=== PATIENT | male | born 1965 | race Caucasian/White ===

== ENCOUNTER 2016-10-22 16:28 | Observation (INO) | payer OTHER ==
[~2016-10-22] VITALS: Ht 182.9 cm; Wt 85.6 kg
[~2016-10-22 16:28] MED LIST: ALBU1AER9 INH; AMIT50TA3 PO; ASPI81TA28 PO; ATOR-22 PO; CLOP1TAB15 PO; HYG/25 PO; LOSA1TAB38 PO; LPR100 PO; MORP30TA23 PO; MORP60TA6 PO; ONDA4TAB46 PO; OXY/15 PO
[2016-10-22] MEDS ORDERED: SODIUM CHLORIDE 0.9% 500ML 500 ML IV STA (17:11)
[2016-10-22] MEDS ORDERED: NITROGLYCERIN 0.4 MG SL PER TAB CHARGE SL PRN ×2 (17:15→18:30)
[2016-10-22 17:17] LABS: BASO % 0.9 %; COMPLETE YES; HEMATOCRIT 46.7 % (42-52); IG% 0.3 %; LYMPH % 41.9 %; LYMPH ABS # 4.91 K/uL (1.2-3.4); MEAN CORPUSCULAR HEMOGLOBIN 29.1 pg (25-34); MEAN CORPUSCULAR HGB CONC 33.8 g/dl (32-36); MEAN PLATELET VOLUME 9.1 fL (7.4-10.4); MONO % 4.6 %; NEUT % 49.3 %; PLATELET COUNT 256 K/uL (130-400); RED BLOOD COUNT 5.43 M/uL (4.7-6.1); WHITE BLOOD COUNT 11.72 K/uL (4.8-10.8)
--- NOTE | 2016-10-22 17:27 | EMERGENCY ROOM VISIT NOTE ---
History Report prepared by Brittni: Chelsea Terry Under the Supervision of: Dr. Jac Dukes D.O. First contact with patient: 17:00 Chief Complaint: CHEST PAIN Stated Complaint: CHEST PAIN Nursing Triage Summary: patient brought in by ems patient reports chest pain for 1.5 hours,chest tightness patient reports hx of stroke 4 months ago,SC,HIV positive patient reports dizziness episodes 4 times a week with facial numbness and tremors patient wears 25mcg fentanyl patch on left arm History of Present Illness The patient is a 51 year old male who presents to the Emergency Room with complaints of chest pain starting 2 hours [employer]. The patient states that it felt like a tightness in his chest. He states that he currently rates the pain as minimal and states its feels like more "of a ball" in his chest. The patient states that he does have chest pain with exertion. He states that this pain does not feel similar to his heart attack in the past, he states that with his previous heart attack he had right arm pain and a headache and his chest pain felt like a knife in his chest. The patient states that he also had shortness of breath with his chest pain today. The patient states that he has also been getting tremors more frequently over the last few weeks. He states that they are only on the left side of his body and he gets a numb feeling in his head. The patient states that he can get them up to 4-5 times a day and they last 2-3 minutes at a time. He states if he stands still long enough that the tremors seem to go away. The patient states that he does have a history of a stroke as well as his heart attack. The patient states that he also had a headache today after receiving nitroglycerin in the ambulance on the way to the ED. The patient states that he has HIV and has never had a bad CD4 count, but states that he is unsure of what his last count was 2 months ago. He states that he does regularly get his CD4 counts checked. The patient states that he did recently start having a cough and feels like he has mucus in his lungs. He also states that the last 4 days he has had diarrhea and has felt dehydrated but denies any recent antibiotics. The patient denies any recent fevers, new numbness or weakness, abdominal pain, nausea or vomiting with his symptoms. The patient states that he does take Plavix daily for his coronary artery disease. Source of History: patient Onset: 2 hours Position: chest Symptom Intensity: minimal Quality: other (tightness) Associated Symptoms: + SOB, + cough, + diarrhea, + headache, No abdominal pain, No fevers, No nausea, No vomiting Review of Systems See HPI for pertinent positives & negatives. A total of 10 systems reviewed and were otherwise negative. Past Medical & Surgical Medical Problems: (1) ? H/o SC (2) Anal dysplasia (3) Anxiety (4) AVM (arteriovenous malformation) brain (5) Carotid stenosis (6) Cerebritis (7) COPD (chronic obstructive pulmonary disease) (8) Depression (9) Dyslipidemia (10) Headache (11) History of alcohol abuse (12) History of CVA (cerebrovascular accident) (13) Human immunodeficiency virus infection (14) Hypertension (15) Ischemic stroke (16) Migraine (17) Numbness of left hand (18) Polyp of colon (19) Sepsis (20) Syncope Family History Diabetes mellitus FATHER MOTHER FH: cancer FATHER (lung CA) Hypertension FATHER Social History Smoking Status: Current Every Day Smoker Alcohol Use: none Drug Use: none Marital Status: Housing Status: lives with family Occupation Status: unemployed Current/Historical Medications Scheduled Amitriptyline Hcl (Amitriptyline Hcl), 50 MG PO HS Aspirin (Aspirin Ec), 81 MG PO QAM Atorvastatin (Lipitor), 20 MG PO QAM Budesonide/Formoterol Fumarate (Symbicort 160/4.5 Inhaler), 2 PUFFS INH BID Chlorthalidone (Hygroton), 25 MG PO QAM Clopidogrel (Plavix), 75 MG PO QAM Darunavir Ethanolate (Prezista), 600 MG PO BID Fentanyl (Fentanyl), 25 MCG TD Q72HRS Folic Acid (Folic Acid), 1 MG PO QAM Losartan Potassium (Cozaar), 100 MG PO QAM Metoprolol Tartrate (Metoprolol Tartrate), 100 MG PO BID Raltegravir Potassium (Isentress), 400 MG PO BID Ritonavir (Norvir), 100 MG PO BID Scheduled PRN Albuterol Hfa (Ventolin Hfa), 2 PUFFS INH Q6H PRN for Shortness of Breath Furosemide (Furosemide), 20 MG PO DAILY PRN for swelling Ondansetron Hcl (Zofran), 4 MG PO Q6 PRN for Nausea Oxycodone Hcl (Oxycodone Hcl), 15 MG PO Q4-6HRS PRN for Pain Allergies Coded Allergies: Morphine (Verified Allergy, Severe, SHORTNESS OF BREATH, 10/22/16) Penicillins (Verified Allergy, Severe, ANAPHYLAXIS, 10/22/16) Azithromycin (Verified Allergy, Intermediate, RASH AND SKIN PEELING, ) Niacin (Verified Allergy, Intermediate, RASH, 10/22/16) Sulfa Antibiotics (Verified Allergy, Unknown, "ITCHY RASH", 10/22/16) Tramadol (Verified Allergy, Unknown, RASH, 10/22/16) Gabapentin (Verified Adverse Reaction, Intermediate, hallucinations, ) Shellfish (Verified Adverse Reaction, Intermediate, gi symptoms, 10/22/16) Topiramate (Verified Adverse Reaction, Intermediate, NAUSEA, 10/22/16) Meloxicam (Verified Adverse Reaction, Unknown, GI SYMPTOMS, 10/22/16) Physical Exam Vital Signs Date Time Temp Pulse Resp B/P Pulse Ox O2 Delivery O2 Flow Rate FiO2 10/22/16 18:02 86 18 107/83 98 Room Air 10/22/16 16:54 91 10/22/16 16:40 91 18 134/87 98 Room Air Physical Exam GENERAL:Sitting up in bed, disheveled, no acute distress, nontoxic. EYE EXAM: normal conjunctiva OROPHARYNX: no exudate, no erythema, lips, buccal mucosa, and tongue normal and mucous membranes are moist NECK: supple, no nuchal rigidity, no adenopathy, non-tender LUNGS: Clear to auscultation. Normal chest wall mechanics HEART: no murmurs, S1 normal and S2 normal ABDOMEN: abdomen soft, non-tender, normo-active bowel sounds, no masses, no rebound or guarding. BACK: Back is symmetrical on inspection and there is no deformity, no midline tenderness, no CVA tenderness. SKIN: no rashes and no bruising UPPER EXTREMITIES: upper extremities are grossly normal. LOWER EXTREMITIES: No pitting edema. NEURO EXAM: Normal sensorium, cranial nerves II-XII intact, normal speech, no weakness of arms, no weakness of legs. No drift. Finger to nose intact. Gross sensation intact. Medical Decision & Procedures ER Provider Diagnostic Interpretation: Radiology results as stated below per my review and the radiologist's interpretation: CHEST ONE VIEW PORTABLE CLINICAL HISTORY: Chest pain. COMPARISON STUDY: Chest radiograph March 24, 2016. FINDINGS: Low volumes are normal. There is no pneumothorax or pleural effusion. There is no evidence of pulmonary edema. Cardiomediastinal silhouette is normal. Lungs are clear. IMPRESSION: No acute cardiopulmonary findings. Electronically signed by: Gabo Moore M.D. 10/22/2016 5:25 PM Dictated Date/Time: 10/22/2016 5:[address]:Per my review, radiologist interpretation. CT OF THE HEAD WITHOUT CONTRAST CLINICAL HISTORY: Dizziness. Left eye twitching. COMPARISON STUDY: Head CT March 24, 2016 and MRI of the brain March 25, 2016. CT DOSE: 663.41 mGy.cm TECHNIQUE: Helical axial images of the head were obtained without IV contrast. Automated exposure control was utilized for the study. FINDINGS: No acute intracranial hemorrhage, midline shift or mass effect is present. There is an old right frontoparietal infarct. Ventricular system is normal. Basilar cisterns are patent. There are no extra axial collections. There are no findings to suggest acute dural sinus thrombosis or acute territorial infarct. There are no calvarial abnormalities. Visualized portions of the sinuses and mastoid air cells are clear. IMPRESSION: 1. No acute intracranial findings. 2. Old right frontoparietal infarct. Electronically signed by: Gabo Moore M.D. 10/22/2016 6:07 PM Dictated Date/Time: 10/22/2016 6:04 PM Laboratory Results 10/22/16 15:52 Red Blood Count 5.43, Mean Corpuscular Volume 86.0, Mean Corpuscular Hemoglobin 29.1, Mean Corpuscular Hemoglobin Concent 33.8, Mean Platelet Volume 9.1, Neutrophils (%) (Auto) 49.3, Lymphocytes (%) (Auto) 41.9, Monocytes (%) (Auto) 4.6, Eosinophils (%) (Auto) 3.0, Basophils (%) (Auto) 0.9, Neutrophils # (Auto) 5.78, Lymphocytes # (Auto) 4.91, Monocytes # (Auto) 0.54, Eosinophils # (Auto) 0.35, Basophils # (Auto) 0.10 10/22/16 15:52 Test 10/22/16 15:52 White Blood Count 11.72 K/uL (4.8-10.8) Red Blood Count 5.43 M/uL (4.7-6.1) Hemoglobin 15.8 g/dL (14.0-18.0) Hematocrit 46.7 % (42-52) Mean Corpuscular Volume 86.0 fL (80-100) Mean Corpuscular Hemoglobin 29.1 pg (25-34) Mean Corpuscular Hemoglobin Concent 33.8 g/dl (32-36) Platelet Count 256 K/uL (130-400) Mean Platelet Volume 9.1 fL (7.4-10.4) Neutrophils (%) (Auto) 49.3 % Lymphocytes (%) (Auto) 41.9 % Monocytes (%) (Auto) 4.6 % Eosinophils (%) (Auto) 3.0 % Basophils (%) (Auto) 0.9 % Neutrophils # (Auto) 5.78 K/uL (1.4-6.5) Lymphocytes # (Auto) 4.91 K/uL (1.2-3.4) Monocytes # (Auto) 0.54 K/uL (0.11-0.59) Eosinophils # (Auto) 0.35 K/uL (0-0.5) Basophils # (Auto) 0.10 K/uL (0-0.2) RDW Standard Deviation 43.7 fL (36.4-46.3) RDW Coefficient of Variation 14.0 % (11.5-14.5) Immature Granulocyte % (Auto) 0.3 % Immature Granulocyte # (Auto) 0.04 K/uL (0.00-0.02) Anion Gap 5.0 mmol/L (3-11) Est Creatinine Clear Calc Drug Dose 94.9 ml/min Estimated GFR () 99.8 Estimated GFR (Non- 86.2 BUN/Creatinine Ratio 8.6 (10-20) Calcium Level 9.6 mg/dl (8.5-10.1) Total Creatine Kinase 77 U/L (39-308) Creatine Kinase MB 0.7 ng/ml (0.5-3.6) Creatine Kinase MB Ratio 0.9 (0-3.0) Troponin I < 0.015 ng/ml (0-0.045) Laboratory results per my review. Medications Administered Medications (Trade) Dose Ordered Sig/Josh Route Start Time Stop Time Status Last Admin Dose Admin Sodium Chloride (Nss 500ml) 500 ml @ 999 mls/hr Q31M STAT IV 10/22/16 17:11 10/22/16 17:41 DC 10/22/16 17:11 999 MLS/HR Nitroglycerin (Nitrostat Tab) 0.4 mg Q5M PRN SL 10/22/16 17:15 11/21/16 17:14 10/22/16 17:49 0.4 MG Acetaminophen (Tylenol Tab) 1,000 mg NOW STAT PO 10/22/16 18:13 10/22/16 18:14 DC 10/22/16 18:25 1,000 MG ECG Indication: chest pain Rate (beats per minute): 94 Rhythm: normal sinus Findings: other (Normal [place], R' in lead I) ED Course ED COURSE: Vital signs were reviewed and showed normal The patients medical record was reviewed The above diagnostic studies were performed and reviewed. ED treatments and interventions as stated above. 1704: The patient was evaluated in room C9. A complete history and physical examination was performed. 1711: Ordered Sodium Chloride 500 ml @ 999 mls/hr IV. 1715: Ordered Nitroglycerin 0.4 mg SL. 1743: I reevaluated the patient and he had not received his nitroglycerin yet. I asked a nurse to give the nitroglycerin to the patient. 1812: I reevaluated the patient and he states the pain has resolved after the nitroglycerin. 1813: Ordered Tylenol Tab 1,000 mg PO. 1814: Upon reevaluation, the patient states the pain has resolved after the nitroglycerin..I discussed my findings with the patient and he understands and agrees with the treatment plan. Based on the patients age, coexisting illnesses , exam and lab findings the decision to treat as an inpatient was made. 1816: I discussed the case with Dr. Adrianna Augustine Hospitalist. He agreed to evaluate the patient for further management and care. The patient remained stable while under my care. The patient will be evaluated for further management. Medical Decision Differential diagnoses includes but is not limited to acute coronary syndrome, myocardial infarction, pericarditis, pulmonary embolus, aortic dissection, pneumonia, pneumothorax, musculoskeletal, shingles, esophageal. Patient is a 51-year-old male who presents the ER for 2 separate complaints. He presents initially via EMS complaining of midsternal chest tightness which is improved with nitroglycerin. He already has received a full dose aspirin. It started about 2 hours ago. He does have a history of a previous SC, CVA and carotid stenosis. He is taking Plavix. No previous stents. He notes that over the past month and a half he has been getting worsening exertional chest pain. His SC was in [place]. Recently has been complaining of twitching and shaking of his left lower extremity along with numbness of his face. He has been getting episodes which last about 10 minutes about 3 times a day. It has been coming more frequently. He is unsure of the cause of this. He does have a history of HIV. No recent fevers. Previous normal CD4 counts. He has not missed any doses of his medications. Labs along with chest x-ray and EKG were obtained. EKG shows no obvious ischemia. Chest x-ray is unremarkable. CBC along with BMP was unremarkable. Troponin was negative. Patient was completely chest pain-free following additional dose of nitroglycerin. Patient was updated at bedside and admitted to internal medicine. Consults Time Called: 1810 Consulting Physician: Dr. Adrianna Augustine Hospitalist Returned Call: 1815 I discussed the case with Dr. Adrianna Augustine Hospitalist. He agreed to evaluate the patient for further management and care. Impression Primary Impression: Precordial chest pain Additional Impression: Involuntary movements Scribe Attestation The scribe's documentation has been prepared under my direction and personally reviewed by me in its entirety. I confirm that the note above accurately reflects all work, treatment, procedures, and medical decision making performed by me. Departure Information Dispostion Being Evaluated By Hospitalist Referrals No Doctor, Assigned (PCP) Patient Instructions [facility] Problem Qualifiers
[2016-10-22 17:30] LABS: BLOOD UREA NITROGEN 9 mg/dl (7-18); BUN/CREATININE RATIO 8.6 (10-20); CALCIUM 9.6 mg/dl (8.5-10.1); CARBON DIOXIDE 31 mmol/L (21-32); CHLORIDE 104 mmol/L (98-107); GLUCOSE 130 mg/dl (70-99); POTASSIUM 3.9 mmol/L (3.5-5.1); SODIUM 140 mmol/L (136-145)
[2016-10-22 17:35] LABS: CKMB/CK RATIO 0.9 (0-3.0)
--- NOTE | 2016-10-22 18:08 | DIAGNOSTIC IMAGING REPORT ---
CT OF THE HEAD WITHOUT CONTRAST CLINICAL HISTORY: Dizziness. Left eye twitching. COMPARISON STUDY: Head CT March 24, 2016 and MRI of the brain March 25, 2016. CT DOSE: 663.41 mGy.cm TECHNIQUE: Helical axial images of the head were obtained without IV contrast. Automated exposure control was utilized for the study. FINDINGS: No acute intracranial hemorrhage, midline shift or mass effect is present. There is an old right frontoparietal infarct. Ventricular system is normal. Basilar cisterns are patent. There are no extra axial collections. There are no findings to suggest acute dural sinus thrombosis or acute territorial infarct. There are no calvarial abnormalities. Visualized portions of the sinuses and mastoid air cells are clear. IMPRESSION: 1. No acute intracranial findings. 2. Old right frontoparietal infarct. Electronically signed by: Gabo Moore M.D. 10/22/2016 6:07 PM Dictated Date/Time: 10/22/2016 6:04 PM
[2016-10-22] MEDS ORDERED: ACETAMINOPHEN 500 MG TAB PO STA (18:13)
[2016-10-22] MEDS ORDERED: ONDANSETRON 4 MG TAB PO PRN (18:30)
[2016-10-22] MEDS ORDERED: POLYETHYLENE (MIRALAX) 17 GM PACK PO PRN (18:30)
[2016-10-22] MEDS ORDERED: MoRPHine SULFATE 2 MG/ML CARP IV PRN (18:30)
[2016-10-22] MEDS ORDERED: ACETAMINOPHEN 325 MG TAB PO PRN (18:30)
[2016-10-22] MEDS ORDERED: ONDANSETRON INJ 2 MG/ML 2 ML VIAL IV PRN (18:30)
[2016-10-22] MEDS ORDERED: ALBUTEROL HFA 8 GM INHALER INH PRN (18:30)
[2016-10-22] MEDS ORDERED: ALUMINUM/MAGNESIUM/SIMETH (MAALOX MAX) 30 ML UDC PO PRN (18:30)
[2016-10-22] MEDS ORDERED: MAGNESIUM HYDROXIDE SUSP 30 ML UDC PO PRN (18:30)
--- NOTE | 2016-10-22 19:16 | History and Physical ---
History & Physical Date & Time of Service: October 22, 2016 at 18:55 Chief Complaint: Chest Pain Primary Care Physician: Guillermo Burdick M.D. History of Present Illness Source: patient, clinic records, hospital records This is a 51 year old male with a PMH of HIV with peripheral neuropathy, R internal carotid artery stenosis with multiple and recurrent TIAs, hx. of CVA, possible hx. of OK as per patient, hx. of migraines, chronic pain on long-term narcotics, depression/anxiety, anal dysplasia s/p polyp removal, COPD and current tobacco use, HTN presents with chest pressure that began at about 3PM prior to arrival to the ER on 10/22 - he states he was actually seated on the commode at the time the chest pressure occurred, he said it was a squeezing pain that was on the left side of his chest - it was associated with R arm numbness. He states that he's had an OK in the past in [place] - but cannot give me specifics regarding that. His second complaint involves what he states could be seizure or TIA episodes - states that he passes out at times, and develops numbness/tingling. He has a hx. of complete R ICA occlusion. States he gets involuntary movements of his bilateral upper extremities, which he says is a chronic thing, but it seems worse than usual. 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 His pain has subsided after receiving Nitro in the ER. Past Medical/Surgical History Medical Problems: (1) ? H/o OK Status: Chronic (2) Anal dysplasia Status: Chronic (3) Anxiety Status: Chronic (4) AVM (arteriovenous malformation) brain Status: Chronic (5) Carotid stenosis Permanent Comment: 03/06/15-SAÚL occlusion, LICA with 50-59% stenosis Status: Chronic (6) Cerebritis Status: Resolved (7) COPD (chronic obstructive pulmonary disease) Status: Chronic (8) Depression Status: Chronic (9) Dyslipidemia Status: Chronic (10) History of alcohol abuse Status: Resolved (11) History of CVA (cerebrovascular accident) Permanent Comment: in setting of right carotid artery thrombosis Status: Chronic (12) Human immunodeficiency virus infection Status: Chronic (13) Hypertension Status: Chronic (14) Ischemic stroke Status: Resolved (15) Migraine Status: Chronic (16) Polyp of colon Status: Chronic (17) Sepsis Status: Resolved Family History Diabetes mellitus FATHER MOTHER FH: cancer FATHER (lung CA) Hypertension FATHER Social History Smoking Status: Current Every Day Smoker Drug Use: none Marital Status: Housing status: lives with significant other Occupational Status: unemployed Allergies Coded Allergies: Morphine (Verified Allergy, Severe, SHORTNESS OF BREATH, 10/22/16) Penicillins (Verified Allergy, Severe, ANAPHYLAXIS, 10/22/16) Azithromycin (Verified Allergy, Intermediate, RASH AND SKIN PEELING, ) Niacin (Verified Allergy, Intermediate, RASH, 10/22/16) Sulfa Antibiotics (Verified Allergy, Unknown, "ITCHY RASH", 10/22/16) Tramadol (Verified Allergy, Unknown, RASH, 10/22/16) Gabapentin (Verified Adverse Reaction, Intermediate, hallucinations, ) Shellfish (Verified Adverse Reaction, Intermediate, gi symptoms, 10/22/16) Topiramate (Verified Adverse Reaction, Intermediate, NAUSEA, 10/22/16) Meloxicam (Verified Adverse Reaction, Unknown, GI SYMPTOMS, 10/22/16) Home Medications Scheduled Amitriptyline Hcl (Amitriptyline Hcl), 50 MG PO HS Aspirin (Aspirin Ec), 81 MG PO QAM Atorvastatin (Lipitor), 20 MG PO QAM Budesonide/Formoterol Fumarate (Symbicort 160/4.5 Inhaler), 2 PUFFS INH BID Chlorthalidone (Hygroton), 25 MG PO QAM Clopidogrel (Plavix), 75 MG PO QAM Darunavir Ethanolate (Prezista), 600 MG PO BID Fentanyl (Fentanyl), 25 MCG TD Q72HRS Folic Acid (Folic Acid), 1 MG PO QAM Losartan Potassium (Cozaar), 100 MG PO QAM Metoprolol Tartrate (Metoprolol Tartrate), 100 MG PO BID Raltegravir Potassium (Isentress), 400 MG PO BID Ritonavir (Norvir), 100 MG PO BID Scheduled PRN Albuterol Hfa (Ventolin Hfa), 2 PUFFS INH Q6H PRN for Shortness of Breath Furosemide (Furosemide), 20 MG PO DAILY PRN for swelling Ondansetron Hcl (Zofran), 4 MG PO Q6 PRN for Nausea Oxycodone Hcl (Oxycodone Hcl), 15 MG PO Q4-6HRS PRN for Pain Review of Systems Constitutional: No chills, No fever, No weakness Respiratory: No cough, No dyspnea at rest, No dyspnea on exertion, No hemoptysis, No shortness of breath, No sputum, No wheezing Cardiovascular: + chest pain, No edema, No orthopnea, No palpitations Abdomen: No GI bleeding, No constipation, No diarrhea, No nausea, No pain, No vomiting Musculoskeletal: + joint pain (chronic lower extremity, R foot), + muscle pain Genitourinary - Male: No dysuria, No hematuria, No urinary frequency, No urinary hesitancy, No urinary retention, No urinary urgency Neurologic: + numbness/tingling, + weakness, No balance problems, No memory loss, No paralysis, No vertigo Psychiatric: No anxiety, No depression symptoms Hematologic / Lymphatic: No abnormal bleeding/bruising Integumentary: No itch, No rash Allergic / Immunologic: No environmental allergies, No seasonal allergies Physical Exam Vital Signs Date Time Temp Pulse Resp B/P Pulse Ox O2 Delivery O2 Flow Rate FiO2 10/22/16 18:02 86 18 107/83 98 Room Air 10/22/16 16:54 91 10/22/16 16:40 91 18 134/87 98 Room Air General Appearance: no apparent distress Head: normocephalic, atraumatic Eyes: normal inspection ENT: hearing grossly normal Neck: supple Respiratory/Chest: chest non-tender, lungs clear, normal breath sounds, no respiratory distress, no accessory muscle use Cardiovascular: regular rate, rhythm, no edema, no gallop, no JVD, no murmur, normal peripheral pulses Abdomen/GI: normal bowel sounds, non tender, soft Extremities/Musculoskelatal: normal inspection, no calf tenderness, normal capillary refill, no pedal edema, normal range of motion Neurologic/Psych: 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 as tested, no motor/sensory deficits, alert, normal mood/affect, oriented x 3 Skin: normal color Lymphatic: no adenopathy Diagnostics Laboratory Results Results Past 24 Hours Test 10/22/16 15:52 Range/Units White Blood Count 11.72 4.8-10.8 K/uL Red Blood Count 5.43 4.7-6.1 M/uL Hemoglobin 15.8 14.0-18.0 g/dL Hematocrit 46.7 42-52 % Mean Corpuscular Volume 86.0 80-100 fL Mean Corpuscular Hemoglobin 29.1 25-34 pg Mean Corpuscular Hemoglobin Concent 33.8 32-36 g/dl Platelet Count 256 130-400 K/uL Mean Platelet Volume 9.1 7.4-10.4 fL Neutrophils (%) (Auto) 49.3 % Lymphocytes (%) (Auto) 41.9 % Monocytes (%) (Auto) 4.6 % Eosinophils (%) (Auto) 3.0 % Basophils (%) (Auto) 0.9 % Neutrophils # (Auto) 5.78 1.4-6.5 K/uL Lymphocytes # (Auto) 4.91 1.2-3.4 K/uL Monocytes # (Auto) 0.54 0.11-0.59 K/uL Eosinophils # (Auto) 0.35 0-0.5 K/uL Basophils # (Auto) 0.10 0-0.2 K/uL RDW Standard Deviation 43.7 36.4-46.3 fL RDW Coefficient of Variation 14.0 11.5-14.5 % Immature Granulocyte % (Auto) 0.3 % Immature Granulocyte # (Auto) 0.04 0.00-0.02 K/uL Sodium Level 140 136-145 mmol/L Potassium Level 3.9 3.5-5.1 mmol/L Chloride Level 104 98-107 mmol/L Carbon Dioxide Level 31 21-32 mmol/L Anion Gap 5.0 3-11 mmol/L Blood Urea Nitrogen 9 7-18 mg/dl Creatinine 1.00 0.60-1.40 mg/dl Est Creatinine Clear Calc Drug Dose 94.9 ml/min Estimated GFR () 99.8 Estimated GFR (Non- 86.2 BUN/Creatinine Ratio 8.6 10-20 Random Glucose 130 70-99 mg/dl Calcium Level 9.6 8.5-10.1 mg/dl Total Creatine Kinase 77 39-308 U/L Creatine Kinase MB 0.7 0.5-3.6 ng/ml Creatine Kinase MB Ratio 0.9 0-3.0 Troponin I < 0.015 0-0.045 ng/ml Diagnostic Radiology CT OF THE HEAD WITHOUT CONTRAST CLINICAL HISTORY: Dizziness. Left eye twitching. COMPARISON STUDY: Head CT March 24, 2016 and MRI of the brain March 25, 2016. CT DOSE: 663.41 mGy.cm TECHNIQUE: Helical axial images of the head were obtained without IV contrast. Automated exposure control was utilized for the study. FINDINGS: No acute intracranial hemorrhage, midline shift or mass effect is present. There is an old right frontoparietal infarct. Ventricular system is normal. Basilar cisterns are patent. There are no extra axial collections. There are no findings to suggest acute dural sinus thrombosis or acute territorial infarct. There are no calvarial abnormalities. Visualized portions of the sinuses and mastoid air cells are clear. IMPRESSION: 1. No acute intracranial findings. 2. Old right frontoparietal infarct. CXR normal EKG NSR possible new incomplete RBBB Impression Assessment and Plan This is a 51 year old male with a PMH of HIV with peripheral neuropathy, R internal carotid artery stenosis with multiple and recurrent TIAs, hx. of CVA, possible hx. of OK as per patient, hx. of migraines, chronic pain on long-term narcotics, depression/anxiety, anal dysplasia s/p polyp removal, COPD and current tobacco use, HTN Chest Pain r/o ACS patient presented with L sided chest pressure improved with SL nitro EKG, NSR, no ST interval changes; possible new RBBB states he has had a hx. of OK will recheck EKG in AM check an echo trend cardiac enzymes continue aspirin, Plavix, statin, and b-jennifer consult cardiology for further input Recurrent TIAs states he gets dizzy and syncopal episodes now c/o involuntary movement of upper extremities Head CT shows a previous, old frontoparietal infarct He has a complete occlusion of the R ICA will check an EEG, which he was supposed to get as an outpatient, but did not continue aspirin, Plavix increase statin to Lipitor 40mg HIV neuropathy states that his HIV is doing well, CD4 count is good he currently takes Darunavir, Ritonavir, Raltegravir - which we will continue consult ID as mandatory for using HIV medications for the neuropathy - he follows with pain management as an outpatient Fentanyl 25mcg patch Oxycodone PRN dosing will add IV Morphine 1mg q4 for breakthrough pain Anal Dysplasia follows with general surgery will need an outpatient colonoscopy COPD continue current inhalers, in no exacerbation Tobacco Use Disorder he smokes 10-15 cigarettes daily not sure if he is ready to quit counseled on cessation DVT ppx subq heparin FULL CODE VTE Prophylaxis VTE Risk Assessment Done? Y/N: Yes Risk Level: Moderate
[2016-10-22 19:38] LABS: INR 0.9 (0.9-1.1); PARTIAL THROMBOPLASTIN RATIO 0.9; PROTHROMBIN TIME (PATIENT) 9.6 SECONDS (9.0-12.0)
[2016-10-22] MEDS: HEPARIN SOD 5000 UNIT/0.5 ML CARP SQ SCH (21:00)
[2016-10-22] MEDS ORDERED: AMITRIPTYLINE HCL 50 MG TAB PO SCH (21:00)
[2016-10-22 21:26] VITALS: Ht 182.9 cm; Wt 85.6 kg
[2016-10-22 21:31] VITALS: BP 138/77; PULSE 88; TEMP 36.6; O2SAT 99
[2016-10-22] MEDS ORDERED: IV FLUIDS COMPLETED PRN (21:45)
[2016-10-22] MEDS: BUDESONIDE/FORMOTEROL FUMARATE 160/4.5 60 PUFFS/INHALER INH SCH (22:09)
[2016-10-22] MEDS: METOPROLOL TARTRATE 100 MG TAB PO SCH (22:10)
[2016-10-22] MEDS: DARUNAVIR ETHANOLATE 600 MG TAB PO SCH (22:17)
[2016-10-22] MEDS: RALTEGRAVIR POTASSIUM TAB 400 MG TAB PO SCH (22:17)
[2016-10-22] MEDS: RITONAVIR 100 MG TAB PO SCH (22:17)
[2016-10-22] MEDS: OXYCODONE HCL IR 5 MG TAB (IMMEDIATE RELEASE) PO PRN (22:18)
[2016-10-22 23:59] VITALS: BP 112/66; PULSE 71; TEMP 36.5; O2SAT 95
[2016-10-23] VITALS (7 sets, daily range): BP systolic 97–125; BP diastolic 53–79; PULSE 75–78; TEMP 36.5–36.7; O2SAT 95–98
[2016-10-23 01:16] LABS: CKMB/CK RATIO 1.3 (0-3.0)
[2016-10-23] MEDS: OXYCODONE HCL IR 5 MG TAB (IMMEDIATE RELEASE) PO PRN ×3 (03:49→13:46)
[2016-10-23] MEDS: CHECK FENTANYL PATCH PLACEMENT SCH ×3 (08:00→16:18)
[2016-10-23] MEDS: BUDESONIDE/FORMOTEROL FUMARATE 160/4.5 60 PUFFS/INHALER INH SCH (08:56)
[2016-10-23] MEDS: RALTEGRAVIR POTASSIUM TAB 400 MG TAB PO SCH (08:58)
[2016-10-23] MEDS: RITONAVIR 100 MG TAB PO SCH (08:59)
[2016-10-23] MEDS ORDERED: FENTANYL PATCH REMOVE & WASTE SCH (08:59)
[2016-10-23] MEDS: METOPROLOL TARTRATE 100 MG TAB PO SCH (08:59)
[2016-10-23] MEDS: DARUNAVIR ETHANOLATE 600 MG TAB PO SCH (09:00)
[2016-10-23] MEDS ORDERED: ASPIRIN 81 MG ECTAB PO SCH (09:00)
[2016-10-23] MEDS ORDERED: ATORVASTATIN 40 MG TAB PO SCH (09:00)
[2016-10-23] MEDS ORDERED: FENTANYL 25 MCG/HR TDSY TD SCH (09:00)
[2016-10-23] MEDS: HEPARIN SOD 5000 UNIT/0.5 ML CARP SQ SCH (09:00)
[2016-10-23] MEDS ORDERED: CLOPIDOGREL BISULFATE 75 MG TAB PO SCH (09:00)
[2016-10-23] MEDS ORDERED: CHLORTHALIDONE 25 MG TAB PO SCH (09:00)
[2016-10-23] MEDS ORDERED: LOSARTAN POTASSIUM 50 MG TAB PO SCH (09:00)
--- NOTE | 2016-10-23 09:35 | ECHOCARDIOGRAM REPORT ---
*NOTICE TO RECEIVING DEMOCRAT AGENCY This information is strictly Confidential and protected under [place] law. [place] law prohibits you from making any further disclosure of this information unless further disclosure is expressly permitted by the written consent of the person to whom it pertains or is authorized by law. A general authorization for the release of medical or other information is not sufficient for this purpose. Hospital accepts no responsibility if the information is made available to any other person, INCLUDING THE PATIENT. Interpretation Summary * Name: CHERIE CHENG Study Date: 10/23/2016 08:15 AM BP: 108/64 mmHg * Patient Location: [facility] HR: 74 * : 1965 (M/d/yyyy) Gender: Male Height: 72 in * Age: 51 yrs Ethnicity: CA Weight: 192 lb * Ordering Physician: Yumiko Pritchard * Referring Physician: Self, Referred * Performed By: Lakshmi Hou RDCS * * Reason For Study: CHEST PAIN * BSA: 2.1 m2 * The study was technically adequate. * Compared to prior study, there is no significant change. * -- Conclusions -- * Ejection Fraction = 60-65%. * The left ventricular wall motion is normal. * There is mild concentric left ventricular hypertrophy. * Diastolic dysfunction, Grade II (pseudonormalization pattern). * There is trace mitral regurgitation. * Borderline aortic root dilatation. * Mildly dilated ascending aorta. Procedure Details * A complete two-dimensional transthoracic echocardiogram was performed (2D, M-mode, Doppler and color flow Doppler). Left Ventricle * The left ventricle is normal in size. * There is mild concentric left ventricular hypertrophy. * Ejection Fraction = 60-65%. * Left ventricular systolic function is normal. * The left ventricular wall motion is normal. Right Ventricle * The right ventricle is normal size. * The right ventricular systolic function is normal as assessed by tricuspid annular plane systolic excursion (TAPSE) (normal >1.5 cm). Atria * The left atrial size is normal. * Right atrial size is normal. * There is no evidence of atrial septal defect, but resolution does not allow assessment for a patent foramen ovale. Mitral Valve * The mitral valve is normal. * There is no mitral valve stenosis. * There is trace mitral regurgitation. Tricuspid Valve * The tricuspid valve is normal. * There is no tricuspid stenosis. * Significant tricuspid regurgitation is absent. Aortic Valve * The aortic valve is trileaflet. * Aortic stenosis is absent. * There is no significant aortic regurgitation. Pulmonic Valve * The pulmonary valve is not well seen, but the Doppler examination is normal without significant regurgitation or stenosis. Great Vessels * Borderline aortic root dilatation. * Mildly dilated ascending aorta. Pericardium/Pleural * There is no pericardial effusion. Great Vessels * Normal inferior vena cava diameter and respiratory variation suggests normal central venous pressure. Left Ventricular Diastolic Function * Pulse wave TDI of the anterior and posterior mitral annulas demonstrates abnormal LV relaxation * Diastolic dysfunction, Grade II (pseudonormalization pattern). MMode 2D Measurements and Calculations IVSd 1.3 cm IVSs 2.0 cm LVIDd 4.2 cm LVIDs 2.7 cm LVPWd 1.3 cm LVPWs 1.7 cm IVS/LVPW 0.96 FS 36.7 % EDV(Teich) 80.5 ml ESV(Teich) 26.6 ml EF(Teich) 66.9 % EDV(cubed) 76.4 ml ESV(cubed) 19.4 ml EF(cubed) 74.7 % % IVS thick 60.2 % % LVPW thick 31.6 % LV mass(C)d 201.7 grams LV mass(C)dI 96.3 grams/m\S\2 LV mass(C)s 207.4 grams LV mass(C)sI 99.0 grams/m\S\2 SV(Teich) 53.8 ml SI(Teich) 25.7 ml/m\S\2 SV(cubed) 57.0 ml SI(cubed) 27.2 ml/m\S\2 Ao root diam 3.9 cm Ao root area 11.8 cm\S\2 LA dimension 3.3 cm asc Aorta Diam 4.1 cm LA/Ao 0.85 LVAd ap4 27.1 cm\S\2 LVLd ap4 8.6 cm EDV(MOD-sp4) 71.4 ml EDV(sp4-el) 72.5 ml LVAs ap4 13.8 cm\S\2 LVLs ap4 7.1 cm ESV(MOD-sp4) 23.7 ml ESV(sp4-el) 22.6 ml EF(MOD-sp4) 66.8 % EF(sp4-el) 68.8 % LVAd ap2 33.6 cm\S\2 LVLd ap2 8.9 cm EDV(MOD-sp2) 107.8 ml EDV(sp2-el) 107.9 ml LVAs ap2 18.0 cm\S\2 LVLs ap2 7.3 cm ESV(MOD-sp2) 41.6 ml ESV(sp2-el) 37.7 ml EF(MOD-sp2) 61.4 % EF(sp2-el) 65.1 % LVLd %diff 3.2 % EDV(MOD-bp) 89.2 ml LVLs %diff 2.2 % ESV(MOD-bp) 31.6 ml EF(MOD-bp) 64.5 % SV(MOD-sp4) 47.7 ml SI(MOD-sp4) 22.8 ml/m\S\2 SV(MOD-sp2) 66.2 ml SI(MOD-sp2) 31.6 ml/m\S\2 SV(MOD-bp) 57.6 ml SI(MOD-bp) 27.5 ml/m\S\2 SV(sp4-el) 49.9 ml SI(sp4-el) 23.8 ml/m\S\2 SV(sp2-el) 70.2 ml SI(sp2-el) 33.5 ml/m\S\2 Doppler Measurements and Calculations MV E max brenna 64.5 cm/sec MV A max brenna 52.6 cm/sec MV E/A 1.2 MV dec time 0.25 sec Ao V2 max 124.2 cm/sec Ao max PG 6.2 mmHg Ao max PG (full) 1.8 mmHg LV V1 max PG 4.4 mmHg LV V1 max 104.5 cm/sec
--- NOTE | 2016-10-23 09:48 | Progress Note ---
Progress Note Date of Service October 23, 2016. Progress Note ID Consult Dictated #[id number] A/P: 1. HIV on HAART -Continue HAART while inpt -Follows with ID in [place], plans to resume care with HIV provider post d/c from hospital -thank you
[2016-10-23 09:51] LABS: HEMATOCRIT 39.2 % (42-52); MEAN CELL VOLUME 85.8 fL (80-100); MEAN CORPUSCULAR HEMOGLOBIN 28.2 pg (25-34); MEAN CORPUSCULAR HGB CONC 32.9 g/dl (32-36); MEAN PLATELET VOLUME 8.8 fL (7.4-10.4); PLATELET COUNT 206 K/uL (130-400); RED BLOOD COUNT 4.57 M/uL (4.7-6.1); WHITE BLOOD COUNT 8.97 K/uL (4.8-10.8)
[2016-10-23 10:03] LABS: CALCIUM 8.8 mg/dl (8.5-10.1)
[2016-10-23 10:14] LABS: CREATININE 0.92 mg/dl (0.60-1.40); MAGNESIUM 2.2 mg/dl (1.8-2.4); POTASSIUM 4.1 mmol/L (3.5-5.1)
[2016-10-23 10:20] LABS: CKMB/CK RATIO 1.4 (0-3.0)
[2016-10-23 10:25] LABS: CHOLESTEROL/HDL RATIO 4.6; THYROID STIMULATING HORMONE 0.737 uIu/ml (0.300-4.500)
--- NOTE | 2016-10-23 10:51 | INFECT. DISEASE CONSULTATION ---
DATE OF CONSULTATION: 10/23/2016 REQUESTING PHYSICIAN: Dr. Pritchard. HISTORY OF PRESENT ILLNESS: This is a 51-year-old gentleman who was admitted to the hospital with chest pressure. He is currently undergoing cardiac workup for this. He also had some twitching and dizziness. He does have a history of significant peripheral neuropathy and is on multiple narcotics as an outpatient for this. He also has history of TIA, CVA, and history of coronary artery disease with MA in the past. He does have a history of HIV and he states he has been on medication for over 18 years. He also had recent change in medication to Prezista, Isentress and Norvir 5 months ago. He follows with [facility] in [place] and was last seen there within the last 6 months. He is due to have blood work done at his next outpatient visit, but he states his most recent CD4 count and viral load were normal; however, he is unable to give me exact numbers. He has been tolerating his medications well and he denies any nonadherence with his antiretroviral therapy. He currently denies any chest pain, cough, shortness of breath, nausea, vomiting or diarrhea. His only complaint is of neuropathy. He is asking for higher fentanyl while in the hospital. All remaining review of systems are reviewed and are negative. MEDICAL HISTORY: Significant for coronary artery disease with history of MA, anal dysplasia, anxiety, AVM in the brain, carotid stenosis, COPD, depression, dyslipidemia, history of alcohol abuse, history of CVA, HIV, on antiretroviral therapy, hypertension, migraines, colon polyps. FAMILY HISTORY: Noncontributory. SOCIAL HISTORY: Significant for daily tobacco use. He is on chronic narcotics as an outpatient. He does have a history of alcohol abuse. He lives with his who is present during my examination. ALLERGIES: INCLUDE MORPHINE, PENICILLIN, AZITHROMYCIN, NIACIN, SULFA, TRAMADOL, GABAPENTIN, IODINE, TOPIRAMATE CURRENT MEDICATIONS: Include aspirin, Lipitor, Hygroton, Plavix, Duragesic patch, folic acid, Cozaar, Isentress, Norvir, subcu heparin, Elavil, Symbicort, Lopressor, Prezista, Tylenol, Maalox, milk of magnesia, Zofran, MiraLax, morphine, albuterol, Roxicodone. PHYSICAL EXAMINATION: VITAL SIGNS: He is afebrile, pulse 78, respiratory rate 19, blood pressure 112/74, oxygen saturation is 95-98% on room air. GENERAL: He is awake, alert and oriented x3. He is in no acute distress. HEENT: Mucous membranes are moist. Extraocular muscles are intact. Dentition is poor. HEART: Regular. LUNGS: Clear bilaterally. ABDOMEN: Soft, nontender, nondistended. There is no edema bilaterally. SKIN: Without rash. LABORATORY STUDIES: CBC yesterday, white blood cell count was 11.7, hemoglobin 15.8, platelets were 256. Chemistry panel done in the ER, sodium 140, potassium 3.9, chloride 104, bicarbonate 31, BUN 9, creatinine 1.0, glucose was 130. Initial cardiac enzymes x2 sets are negative. There is no micro obtained. A CT of the head was negative. A chest x-ray in the ER was negative. ASSESSMENT AND PLAN: Human immunodeficiency virus disease, on antiretroviral therapy. He can continue on his antiretroviral therapy while admitted to the hospital and certainly he will follow up with his physicians at [facility] upon discharge from the hospital. Thank you for this consultation. WILL
--- NOTE | 2016-10-23 10:58 | Cardiology Consultation ---
Cardiology Consultation Date of Service October 23, 2016. (Courtney Bird, SHERICE) Cardiology Consultation Cardiology Consultation: Attending Psychiatric Security Nurse: Dr. Holt Requesting Physician: Dr. Pritchard HISTORY OF PRESENT ILLNESS: Mr. Higgins is a complex 51 -year-old male with a history of prior cerebrovascular accident, multiple TIA's, chronic right-sided carotid occlusion, questionable history of acute MD more than 10 years ago, HIV , hypertension, COPD, active tobacco abuse, dyslipidemia and migraine headaches. He was previously evaluated by Dr. Reddy in 2014 for dyspnea and chest pain. Outpatient nuclear stress test was scheduled. Patient failed to keep this appointment. He was admitted for atypical chest pain in 2016, work up negative. Echo with normal LV function, cardiac enzymes unremarkable. Nuclear stress test was rescheduled as an outpatient and unfortunately patient failed to keep this appointment as well. Patient states he has noted worsening cough x 1 week with associated SOB, sputum production, fever and chills. Yesterday he was sitting on the commode and experienced sudden onset chest tightness with radiation to his right arm. 911 was summoned. Symptoms improved in ambulance with nitro. No recurrent chest pain in ER or since admission. EKG was without ischemic changes. Cardiac enzymes unremarkable. Echo demonstrated preserved LV function without wall motion abnormalities. At time of consult, he continues to note SOB with cough and "chest congestion". No chest pain. No dizziness, syncope or near syncope. No sense of palpitations. He ate breakfast this AM. His other primary concern is worsening tremors, which he believes is related to possible seizures. He was to have EEG done as outpatient but did not keep this appointment. He does follow [facility] neurology intermittently as an outpatient due to history of CVA and TIA's. REVIEW OF SYSTEMS: SEE HPI for pertinent positives. All other 10 point review of systems is negative. PAST MEDICAL HISTORY/Surgical history: 1. Cerebrovascular accident with known 100% right carotid artery occlusion. 2. Recurrent admissions for TIA/weakness. 3. HIV. 4. ? myocardial infarction 10 years ago while residing in [place]. 5. Depression. 6. Alcoholism. 7. Hypertension. 8. Anxiety disorder with panic attack. 9. COPD wiht chronic tobacco abuse 10. Tremors 11. anal dysplasia with polyp removal, colonoscopies FAMILY HISTORY: Denies family history of premature CAD or sudden cardiac . SOCIAL HISTORY: Long-term smoker, continues to smoke nearly half pack of cigarettes per day. He is a former alcoholic, quit 11 years ago. Denies any recreational drug use. and lives with partner Surgical History: ALLERGIES: Coded Allergies: Morphine (Verified Allergy, Severe, SHORTNESS OF BREATH, 10/22/16) Penicillins (Verified Allergy, Severe, ANAPHYLAXIS, 10/22/16) Azithromycin (Verified Allergy, Intermediate, RASH AND SKIN PEELING, ) Niacin (Verified Allergy, Intermediate, RASH, 10/22/16) Sulfa Antibiotics (Verified Allergy, Unknown, "ITCHY RASH", 10/22/16) Tramadol (Verified Allergy, Unknown, RASH, 10/22/16) Gabapentin (Verified Adverse Reaction, Intermediate, hallucinations, ) Shellfish (Verified Adverse Reaction, Intermediate, gi symptoms, 10/22/16) Topiramate (Verified Adverse Reaction, Intermediate, NAUSEA, 10/22/16) Meloxicam (Verified Adverse Reaction, Unknown, GI SYMPTOMS, 10/22/16) OUTPATIENT MEDICATIONS: Reported Home Medications Medications Dose Route/Sig Max Daily Dose Days Date Category Dose Instructions Fentanyl 25 Mcg Tdsy 25 Mcg TD Q72HRS 10/22/16 Reported DUE TO CHANGE 10/23/16 Ventolin Hfa (Albuterol) 200 Puffs/88969 Mcg Aers 2 Puffs INH Q6H PRN 10/22/16 Reported Folic Acid 1 Mg Tab 1 Mg PO QAM 03/24/16 Reported Zofran (Ondansetron HCl) 4 Mg Tab 4 Mg PO Q6 PRN 03/24/16 Reported Furosemide 20 Mg Tab 20 Mg PO DAILY PRN 03/24/16 Reported Cozaar (Losartan Potassium) 100 Mg Tab 100 Mg PO QAM 03/24/16 Reported Lipitor (Atorvastatin Calcium) 20 Mg Tab 20 Mg PO QAM 02/22/16 Reported Metoprolol Tartrate 100 Mg Tab 100 Mg PO BID 02/22/16 Reported Oxycodone Hcl 15 Mg Tab 15 Mg PO Q4-6HRS PRN 10/01/15 Reported Aspirin Ec (Aspirin) 81 Mg Tab 81 Mg PO QAM 06/21/15 Reported Plavix (Clopidogrel Bisulfate) 75 Mg Tab 75 Mg PO QAM 06/21/15 Reported Amitriptyline Hcl 50 Mg Tab 50 Mg PO HS 04/01/15 Reported PT MAY TAKE 50MG IN AM IF NEEDED. Prezista (Darunavir Ethanolate) 600 Mg Tab 600 Mg PO BID 03/05/15 Reported TAKE THIS MEDICATION WITH FOOD Hygroton (Chlorthalidone) 25 Mg Tab 25 Mg PO QAM 03/05/15 Reported Isentress (Raltegravir Potassium) 400 Mg Tab 400 Mg PO BID 03/05/15 Reported Norvir (Ritonavir) 100 Mg Tab 100 Mg PO BID 03/05/15 Reported Symbicort 160/4.5 Inhaler (Budesonide/Formoterol Fumarate) 120 Puffs/ Aero 2 Puffs INH BID 03/05/15 Reported PHYSICAL EXAMINATION: Last 8 Hrs Date Time Temp Pulse Resp B/P Pulse Ox O2 Delivery O2 Flow Rate FiO2 10/23/16 08:00 Room Air 10/23/16 07:44 36.5 78 19 112/74 95 Room Air 10/23/16 04:00 98 Room Air 10/23/16 03:41 36.6 77 16 108/64 96 Room Air GENERAL: NAD, awake, alert and oriented x3. HEENT: Poor dentition. His mucous membranes are moist. No scleral icterus. Conjunctivae are pink. NECK: Supple without JVD or HJR. There is a soft left sided carotid bruit. HEART: Regular with a normal S1 and S2. No murmur, rub or gallop. LUNGS: +coarse breath sounds b/l with rhonchi. No rales noted. ABDOMEN: Soft, nontender. No rebound or guarding. Normal bowel sounds. EXTREMITIES: Warm and dry without clubbing, cyanosis or edema. NEUROLOGIC: No focal motor deficits appreciated on examination. DATA: EKG on admission: NSR with incomplete RBBB, unchanged form prior EKGs Repeat EKG this AM 10/23/16: NSR with incomplete RBBB/IVCD, unchanged Head CT: IMPRESSION: 1. No acute intracranial findings. 2. Old right frontoparietal infarct. Chest xray: IMPRESSION: No acute cardiopulmonary findings. Echocardiogram reviewed, per report, completed this admission: * The study was technically adequate. * Compared to prior study, there is no significant change. * -- Conclusions -- * Ejection Fraction = 60-65%. * The left ventricular wall motion is normal. * There is mild concentric left ventricular hypertrophy. * Diastolic dysfunction, Grade II (pseudonormalization pattern). * There is trace mitral regurgitation. * Borderline aortic root dilatation. * Mildly dilated ascending aorta. Telemetry reviewed - NSR with rare PVC/PAC. No sustained arrhythmias. Last 24 Hours Test 10/22/16 15:52 10/22/16 16:50 10/23/16 00:40 10/23/16 09:19 White Blood Count 11.72 K/uL 8.97 K/uL Red Blood Count 5.43 M/uL 4.57 M/uL Hemoglobin 15.8 g/dL 12.9 g/dL Hematocrit 46.7 % 39.2 % Mean Corpuscular Volume 86.0 fL 85.8 fL Mean Corpuscular Hemoglobin 29.1 pg 28.2 pg Mean Corpuscular Hemoglobin Concent 33.8 g/dl 32.9 g/dl Platelet Count 256 K/uL 206 K/uL Mean Platelet Volume 9.1 fL 8.8 fL Neutrophils (%) (Auto) 49.3 % Lymphocytes (%) (Auto) 41.9 % Monocytes (%) (Auto) 4.6 % Eosinophils (%) (Auto) 3.0 % Basophils (%) (Auto) 0.9 % Neutrophils # (Auto) 5.78 K/uL Lymphocytes # (Auto) 4.91 K/uL Monocytes # (Auto) 0.54 K/uL Eosinophils # (Auto) 0.35 K/uL Basophils # (Auto) 0.10 K/uL RDW Standard Deviation 43.7 fL 44.1 fL RDW Coefficient of Variation 14.0 % 14.1 % Immature Granulocyte % (Auto) 0.3 % Immature Granulocyte # (Auto) 0.04 K/uL Sodium Level 140 mmol/L 138 mmol/L Potassium Level 3.9 mmol/L 4.1 mmol/L Chloride Level 104 mmol/L 104 mmol/L Carbon Dioxide Level 31 mmol/L 26 mmol/L Anion Gap 5.0 mmol/L 8.0 mmol/L Blood Urea Nitrogen 9 mg/dl 13 mg/dl Creatinine 1.00 mg/dl 0.92 mg/dl Est Creatinine Clear Calc Drug Dose 94.9 ml/min 103.1 ml/min Estimated GFR () 99.8 110.4 Estimated GFR (Non- 86.2 95.3 BUN/Creatinine Ratio 8.6 14.0 Random Glucose 130 mg/dl 122 mg/dl Calcium Level 9.6 mg/dl 8.8 mg/dl Total Creatine Kinase 77 U/L 53 U/L 42 U/L Creatine Kinase MB 0.7 ng/ml 0.7 ng/ml 0.6 ng/ml Creatine Kinase MB Ratio 0.9 1.3 1.4 Troponin I < 0.015 ng/ml < 0.015 ng/ml < 0.015 ng/ml Prothrombin Time 9.6 SECONDS Prothromb Time International Ratio 0.9 Activated Partial Thromboplast Time 24.6 SECONDS Partial Thromboplastin Ratio 0.9 Magnesium Level 2.2 mg/dl Triglycerides Level 281 mg/dl Cholesterol Level 180 mg/dl HDL Cholesterol 39 mg/dl LDL Cholesterol, Calculated 85 mg/dl VLDL Cholesterol, Calculated 56 mg/dl Cholesterol/HDL Ratio 4.6 Thyroid Stimulating Hormone (TSH) 0.737 uIu/ml FINAL IMPRESSION: 1. Atypical chest discomfort. 2. Cough/SOB/Rhonchi suggestive of COPD exacerbation 3. Tremors, history of old CVA and recurrent TIA's 4. Hypertension 5. chronic tobacco abuse 6. History of ? MD 10+ years ago in [place] without intervention or treatment. PLAN AND RECOMMENDATIONS: Resting 2D echocardiogram is unremarkable. Cardiac enzymes x3 are unremarkable. EKG without ischemic changes. Patient ate breakfast this AM and stress testing not possible. He remains symptoms free from a cardiac perspective without recurrent chest pain since admission. Would recommend outpatient nuclear stress test. Would also treat for possible COPD exacerbation and likely needs EEG/neurology evaluation for recurrent tremors/TIA's. Case discussed with Dr. Holt. (Courtney Bird, PA-C) Cardiology Attending Physician: Patient seen and examines at the bedside. Denies recurrent chest discomfort since admission. Troponins are undetectable. No dysrhythmia on telemetry. C/O cough and intermittent tremors. PE: VSS. Gen: NAD, AAO x 3. HEENT: Poor dentition. Heart: Reg. Normal S1S2, No M /R/G. Lungs: Dry crackles at the bases. Abd: soft, NT, ND, No Rebound/ guarding. Normal BS. Ext: No edema. A/P: Agree with above PA-C history, physical exam, assessment and plan. Outpatient lexiscan nuclear stress ordered. Dry crackles noted on exam with normal CXR. No evidence of CHF. LVEF normal. ? URI / COPD exacerbation in immunocompromised patient. ID consulted. Consider neurology evaluation of intermittent tremors. Rory Holt DO, FACC (Hector Holt, DO)
--- NOTE | 2016-10-23 14:27 | Progress Note ---
Subjective Date of Service: October 23, 2016. Subjective Pt evaluation today including: conversation w/ patient, physical exam, lab review, review of studies, conversation w/ programmer analyst consultant, review of inpatient medication list Saw/examined the patient in room 243 Doing okay today, denies chest pain, c/o mucous and chest congestion today has intermittent tremors, which seem chronic No other issues to note, okay with plan to go home Problem List Medical Problems: (1) Anterior chest wall pain Status: Acute (2) Headache Status: Acute (3) Involuntary movements Status: Acute (4) Paresthesia Status: Acute (5) Precordial chest pain Status: Acute (6) Precordial chest pain Status: Acute (7) Right leg weakness Status: Acute (8) Syncope Status: Acute (9) TIA (transient ischemic attack) Status: Acute Review of Systems Constitutional: No chills, No fever Respiratory: No cough, No shortness of breath, No sputum Cardiac: No chest pain (improved), No edema, No palpitations Abdomen: No GI bleeding, No constipation, No diarrhea, No nausea, No pain, No vomiting Musculoskeletal: No joint pain Heme: No abnormal bleeding/bruising Medications Current Inpatient Medications Medications (Trade) Dose Ordered Sig/Josh Route Start Time Stop Time Status Last Admin Dose Admin Nitroglycerin (Nitrostat Tab) 0.4 mg Q5M PRN SL 10/22/16 17:15 11/21/16 17:14 10/22/16 17:49 0.4 MG Heparin Sodium (Porcine) (Heparin Sq 5000 Unit/0.5ml) 5,000 unit Q12 SQ 10/22/16 21:00 11/21/16 20:59 Acetaminophen (Tylenol Tab) 650 mg Q4H PRN PO 10/22/16 18:30 11/21/16 18:29 Al Hydrox/Mg Hydrox/Simethicone (Maalox Max Susp) 15 ml Q4H PRN PO 10/22/16 18:30 11/21/16 18:29 Magnesium Hydroxide (Milk Of Magnesia Susp) 30 ml Q12H PRN PO 10/22/16 18:30 11/21/16 18:29 Ondansetron HCl (Zofran Inj) 4 mg Q6H PRN IV 10/22/16 18:30 11/21/16 18:29 Nitroglycerin (Nitrostat Tab) 0.4 mg UD PRN SL 10/22/16 18:30 11/21/16 18:29 Polyethylene (Miralax Powder Packet) 17 gm DAILY PRN PO 10/22/16 18:30 11/21/16 18:29 Morphine Sulfate (MoRPHine SULFATE INJ) 1 mg Q4 PRN IV 10/22/16 18:30 11/05/16 18:29 Albuterol (Ventolin Hfa Inhaler) 2 puffs Q6H PRN INH 10/22/16 18:30 11/21/16 18:29 Amitriptyline HCl (Elavil Tab) 50 mg HS PO 10/22/16 21:00 11/21/16 20:59 10/22/16 22:10 50 MG Aspirin (Ecotrin Tab) 81 mg QAM PO 10/23/16 09:00 11/22/16 08:59 10/23/16 08:57 81 MG Atorvastatin Calcium (Lipitor Tab) 40 mg QAM PO 10/23/16 09:00 11/22/16 08:59 10/23/16 08:58 40 MG Budesonide/ Formoterol Fumarate (Symbicort 160/ 4.5 Inh) 2 puffs BID INH 10/22/16 21:00 11/21/16 20:59 10/23/16 08:56 2 PUFFS Chlorthalidone (Hygroton Tab) 25 mg QAM PO 10/23/16 09:00 11/22/16 08:59 10/23/16 08:57 25 MG Clopidogrel Bisulfate (plAVix TAB) 75 mg QAM PO 10/23/16 09:00 11/22/16 08:59 10/23/16 08:59 75 MG Fentanyl (Duragesic Patch) 25 mcg Q72H TD 10/23/16 09:00 11/06/16 08:59 10/23/16 09:00 25 MCG Folic Acid (Folvite Tab) 1 mg QAM PO 10/23/16 09:00 11/22/16 08:59 10/23/16 08:57 1 MG Losartan Potassium (coZAAR TAB) 100 mg QAM PO 10/23/16 09:00 11/22/16 08:59 10/23/16 08:57 100 MG Metoprolol Tartrate (Lopressor Tab) 100 mg BID PO 10/22/16 21:00 11/21/16 20:59 10/23/16 08:59 100 MG Ondansetron HCl (Zofran Tab) 4 mg Q6 PRN PO 10/22/16 18:30 11/21/16 18:29 Raltegravir (Isentress Tab) 400 mg BID PO 10/22/16 22:30 11/21/16 22:29 10/23/16 08:58 400 MG Non-Formulary Medication (Darunavir Ethanolate (Prezista)) 600 mg BID PO 10/22/16 21:00 11/21/16 20:59 UNV Oxycodone HCl (Roxicodone Immediate Rel Tab) 15 mg Q4H PRN PO 10/22/16 18:30 11/05/16 18:29 10/23/16 13:46 15 MG Ritonavir (Norvir) 100 BID PO 10/22/16 22:30 11/21/16 22:29 10/23/16 08:59 100 Miscellaneous (Fentanyl Patch Remove & Waste) 1 ea Q3D@0859 N/A 10/23/16 08:59 11/22/16 08:58 10/23/16 08:56 1 EA Miscellaneous Information (Check Fentanyl Patch Placement) 1 ea QS N/A 10/23/16 00:00 11/22/16 00:00 Miscellaneous (Iv Fluids Completed) 1 ea PRN PRN N/A 10/22/16 21:45 10/22/17 21:44 Objective Vital Signs Date Time Temp Pulse Resp B/P Pulse Ox O2 Delivery O2 Flow Rate FiO2 10/23/16 12:02 36.6 76 18 125/79 97 Room Air 10/23/16 12:00 Room Air 10/23/16 08:00 Room Air 10/23/16 07:44 36.5 78 19 112/74 95 Room Air 10/23/16 04:00 98 Room Air 10/23/16 03:41 36.6 77 16 108/64 96 Room Air 10/23/16 00:00 98 Room Air 10/22/16 23:59 36.5 71 16 112/66 95 Room Air 10/22/16 21:31 36.6 88 18 138/77 99 Room Air 10/22/16 21:26 Room Air 10/22/16 20:53 86 10/22/16 20:42 90 18 111/78 10/22/16 19:08 36.7 10/22/16 18:02 86 18 107/83 98 Room Air 10/22/16 16:54 91 10/22/16 16:40 91 18 134/87 98 Room Air Physical Exam General Appearance: no apparent distress Respiratory/Chest: no respiratory distress, no accessory muscle use, + decreased breath sounds Cardiovascular: regular rate, rhythm, no edema, no murmur Abdomen: normal bowel sounds, non tender, soft Extremities: normal inspection, no pedal edema Neurologic/Psychiatric: no motor/sensory deficits, alert, normal mood/affect Laboratory Results Last 24 Hours Test 10/22/16 15:52 10/22/16 16:50 10/23/16 00:40 10/23/16 09:19 White Blood Count 11.72 K/uL 8.97 K/uL Red Blood Count 5.43 M/uL 4.57 M/uL Hemoglobin 15.8 g/dL 12.9 g/dL Hematocrit 46.7 % 39.2 % Mean Corpuscular Volume 86.0 fL 85.8 fL Mean Corpuscular Hemoglobin 29.1 pg 28.2 pg Mean Corpuscular Hemoglobin Concent 33.8 g/dl 32.9 g/dl Platelet Count 256 K/uL 206 K/uL Mean Platelet Volume 9.1 fL 8.8 fL Neutrophils (%) (Auto) 49.3 % Lymphocytes (%) (Auto) 41.9 % Monocytes (%) (Auto) 4.6 % Eosinophils (%) (Auto) 3.0 % Basophils (%) (Auto) 0.9 % Neutrophils # (Auto) 5.78 K/uL Lymphocytes # (Auto) 4.91 K/uL Monocytes # (Auto) 0.54 K/uL Eosinophils # (Auto) 0.35 K/uL Basophils # (Auto) 0.10 K/uL RDW Standard Deviation 43.7 fL 44.1 fL RDW Coefficient of Variation 14.0 % 14.1 % Immature Granulocyte % (Auto) 0.3 % Immature Granulocyte # (Auto) 0.04 K/uL Sodium Level 140 mmol/L 138 mmol/L Potassium Level 3.9 mmol/L 4.1 mmol/L Chloride Level 104 mmol/L 104 mmol/L Carbon Dioxide Level 31 mmol/L 26 mmol/L Anion Gap 5.0 mmol/L 8.0 mmol/L Blood Urea Nitrogen 9 mg/dl 13 mg/dl Creatinine 1.00 mg/dl 0.92 mg/dl Est Creatinine Clear Calc Drug Dose 94.9 ml/min 103.1 ml/min Estimated GFR () 99.8 110.4 Estimated GFR (Non- 86.2 95.3 BUN/Creatinine Ratio 8.6 14.0 Random Glucose 130 mg/dl 122 mg/dl Calcium Level 9.6 mg/dl 8.8 mg/dl Total Creatine Kinase 77 U/L 53 U/L 42 U/L Creatine Kinase MB 0.7 ng/ml 0.7 ng/ml 0.6 ng/ml Creatine Kinase MB Ratio 0.9 1.3 1.4 Troponin I < 0.015 ng/ml < 0.015 ng/ml < 0.015 ng/ml Prothrombin Time 9.6 SECONDS Prothromb Time International Ratio 0.9 Activated Partial Thromboplast Time 24.6 SECONDS Partial Thromboplastin Ratio 0.9 Magnesium Level 2.2 mg/dl Triglycerides Level 281 mg/dl Cholesterol Level 180 mg/dl HDL Cholesterol 39 mg/dl LDL Cholesterol, Calculated 85 mg/dl VLDL Cholesterol, Calculated 56 mg/dl Cholesterol/HDL Ratio 4.6 Thyroid Stimulating Hormone (TSH) 0.737 uIu/ml Assessment and Plan This is a 51 year old male with a PMH of HIV with peripheral neuropathy, R internal carotid artery stenosis with multiple and recurrent TIAs, hx. of CVA, possible hx. of NM as per patient, hx. of migraines, chronic pain on long-term narcotics, depression/anxiety, anal dysplasia s/p polyp removal, COPD and current tobacco use, HTN Chest Pain r/o ACS 10/23 cardiac enzymes negative x 3 echo performed, normal LVEF EKG with no significant changes outpatient nuclear stress test 10/22 patient presented with L sided chest pressure improved with SL nitro EKG, NSR, no ST interval changes; possible new RBBB states he has had a hx. of NM will recheck EKG in AM check an echo trend cardiac enzymes continue aspirin, Plavix, statin, and b-jennifer consult cardiology for further input Recurrent TIAs 10/23 EEG pending statin increased will d/c home today 10/22 states he gets dizzy and syncopal episodes now c/o involuntary movement of upper extremities Head CT shows a previous, old frontoparietal infarct He has a complete occlusion of the R ICA will check an EEG, which he was supposed to get as an outpatient, but did not continue aspirin, Plavix increase statin to Lipitor 40mg HIV neuropathy states that his HIV is doing well, CD4 count is good he currently takes Darunavir, Ritonavir, Raltegravir - which we will continue consult ID as mandatory for using HIV medications for the neuropathy - he follows with pain management as an outpatient Fentanyl 25mcg patch Oxycodone PRN dosing will add IV Morphine 1mg q4 for breakthrough pain Anal Dysplasia follows with general surgery will need an outpatient colonoscopy COPD continue current inhalers, in no exacerbation Tobacco Use Disorder he smokes 10-15 cigarettes daily not sure if he is ready to quit counseled on cessation DVT ppx subq heparin FULL CODE
[2016-10-23] MEDS ORDERED: LPT/40 PO (15:49)
--- NOTE | 2016-10-23 15:54 | Discharge Instructions ---
Discharge Instructions Date of Service October 23, 2016. Admission Reason for Admission: Involuntary Movements, Precordial Chest Pain Discharge Discharge Diagnosis / Problem: Chest Pain, unlikely ACS, Involuntary Movements Discharge Goals Goal(s): Decrease discomfort, Improve function Activity Recommendations Activity Limitations: resume your previous activity . Instructions / Follow-Up Instructions / Follow-Up Please follow-up with Dr. Burdick on October 29 @ 3:45PM Your dose of Lipitor is changed from 20mg to 40mg daily Outpatient nuclear stress test Current Hospital Diet Patient's current hospital diet: AHA Diet (Heart Healthy) Discharge Diet Recommended Diet: AHA Diet (Heart Healthy) Pending Studies Studies pending at discharge: no Laboratory Results Lipid Panel Test 10/23/16 09:19 Range/Units Triglycerides Level 281 H 0-150 mg/dl Cholesterol Level 180 0-200 mg/dl HDL Cholesterol 39 mg/dl Cholesterol/HDL Ratio 4.6 LDL Cholesterol, Calculated 85 mg/dl Medical Emergencies . Who to Call and When: Medical Emergencies: If at any time you feel your situation is an emergency, please call 911 immediately. . Non-Emergent Contact Non-Emergency issues call your: Primary Care Provider, Lead Principal Technical Architect . . "Provider Documentation" section prepared by Yumiko Pritchard. . VTE Core Measure Inpt VTE Proph given/why not?: Unfractionated heparin SQ
--- NOTE | 2016-10-23 15:56 | Discharge Summary ---
Discharge Summary Date of Service October 23, 2016. Discharge Summary Admission Date: October 22, 2016 at 18:54 Discharge Date: October 23, 2016 Discharge Disposition: Home Principal Diagnosis: Chest Pain, unlikely ACS Involuntary Motor function Medication Reconciliation Changed Medications: Atorvastatin (Lipitor) 40 Mg Tab 40 MG PO DAILY for 30 Days, #30 TAB (Changed from: Atorvastatin (Lipitor) 20 Mg Tab 20 Mg PO QAM) Continued Medications: Albuterol Hfa (Ventolin Hfa) 200 Puffs/49986 Mcg Aers 2 PUFFS INH Q6H PRN for Shortness of Breath, #1 INHALER Amitriptyline Hcl (Amitriptyline Hcl) 50 Mg Tab 50 MG PO HS, TAB PT MAY TAKE 50MG IN AM IF NEEDED. Aspirin (Aspirin Ec) 81 Mg Tab 81 MG PO QAM Budesonide/Formoterol Fumarate (Symbicort 160/4.5 Inhaler) 120 Puffs/ Aero 2 PUFFS INH BID, INHALER Chlorthalidone (Hygroton) 25 Mg Tab 25 MG PO QAM, TAB Clopidogrel (Plavix) 75 Mg Tab 75 MG PO QAM, TAB Darunavir Ethanolate (Prezista) 600 Mg Tab 600 MG PO BID TAKE THIS MEDICATION WITH FOOD Fentanyl (Fentanyl) 25 Mcg Tdsy 25 MCG TD Q72HRS DUE TO CHANGE 10/23/16 Folic Acid (Folic Acid) 1 Mg Tab 1 MG PO QAM Furosemide (Furosemide) 20 Mg Tab 20 MG PO DAILY PRN for swelling Losartan Potassium (Cozaar) 100 Mg Tab 100 MG PO QAM, TAB Metoprolol Tartrate (Metoprolol Tartrate) 100 Mg Tab 100 MG PO BID Ondansetron Hcl (Zofran) 4 Mg Tab 4 MG PO Q6 PRN for Nausea, TAB Oxycodone Hcl (Oxycodone Hcl) 15 Mg Tab 15 MG PO Q4-6HRS PRN for Pain Raltegravir Potassium (Isentress) 400 Mg Tab 400 MG PO BID, TAB Ritonavir (Norvir) 100 Mg Tab 100 MG PO BID Admission Information HPI (per Admitting provider): This is a 51 year old male with a PMH of HIV with peripheral neuropathy, R internal carotid artery stenosis with multiple and recurrent TIAs, hx. of CVA, possible hx. of WI as per patient, hx. of migraines, chronic pain on long-term narcotics, depression/anxiety, anal dysplasia s/p polyp removal, COPD and current tobacco use, HTN presents with chest pressure that began at about 3PM prior to arrival to the ER on 10/22 - he states he was actually seated on the commode at the time the chest pressure occurred, he said it was a squeezing pain that was on the left side of his chest - it was associated with R arm numbness. He states that he's had an WI in the past in [place] - but cannot give me specifics regarding that. His second complaint involves what he states could be seizure or TIA episodes - states that he passes out at times, and develops numbness/tingling. He has a hx. of complete R ICA occlusion. States he gets involuntary movements of his bilateral upper extremities, which he says is a chronic thing, but it seems worse than usual. 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 His pain has subsided after receiving Nitro in the ER. 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 of CVA, possible hx. of WI as per patient, hx. of migraines, chronic pain on long-term narcotics, depression/anxiety, anal dysplasia s/p polyp removal, COPD and current tobacco use, HTN Chest Pain r/o ACS 10/23 cardiac enzymes negative x 3 echo performed, normal LVEF EKG with no significant changes outpatient nuclear stress test 5/11 patient presented with L sided chest pressure improved with SL nitro EKG, NSR, no ST interval changes; possible new RBBB states he has had a hx. of WI will recheck EKG in AM check an echo trend cardiac enzymes continue aspirin, Plavix, statin, and b-jennifer consult cardiology for further input Recurrent TIAs 10/23 EEG pending statin increased will d/c home today 10/22 states he gets dizzy and syncopal episodes now c/o involuntary movement of upper extremities Head CT shows a previous, old frontoparietal infarct He has a complete occlusion of the R ICA will check an EEG, which he was supposed to get as an outpatient, but did not continue aspirin, Plavix increase statin to Lipitor 40mg HIV neuropathy states that his HIV is doing well, CD4 count is good he currently takes Darunavir, Ritonavir, Raltegravir - which we will continue consult ID as mandatory for using HIV medications for the neuropathy - he follows with pain management as an outpatient Fentanyl 25mcg patch Oxycodone PRN dosing will add IV Morphine 1mg q4 for breakthrough pain Anal Dysplasia follows with general surgery will need an outpatient colonoscopy COPD continue current inhalers, in no exacerbation Tobacco Use Disorder he smokes 10-15 cigarettes daily not sure if he is ready to quit counseled on cessation DVT ppx subq heparin FULL CODE Total time spent on discharge = 25 minutes This includes examination of the patient, discharge planning, medication reconciliation, and communication with other providers. Discharge Instructions Please follow-up with Dr. Burdick on October 29 @ 3:45PM Your dose of Lipitor is changed from 20mg to 40mg daily Outpatient nuclear stress test
--- NOTE | 2016-10-23 16:35 | ELECTROENCEPHALOGRAPH REPORT ---
FOR: Dr. Pritchard. CLINICAL DIAGNOSIS: Possible seizure. ELECTROENCEPHALOGRAM DIAGNOSIS: Essentially normal during wakefulness. DESCRIPTION OF TRACING: This EEG was done as a bedside recording with simultaneous video analysis of patient movement and behavior. Photic stimulation was performed. Hyperventilation was not. Drowsiness is briefly recorded, but never sustained. Under these conditions, there is evidence for normal appearing background rhythm in the alpha range of up to 10 Hz of maximum frequency and 30 microvolts of maximum amplitude. This is maximum posterior head regions and bilaterally symmetrical. Polymorphic mid frequency theta activity is seen over all head regions without clear focal or regional predominance. Anterior head region maximum bilaterally symmetrical low voltage fast activity in the beta range is present. At no time during the waking tracing is there evidence for potentially epileptogenic activity in the form of polyspike or spike wave bursts, focal sharp waves or focal spikes. Photic stimulation provoked some modest driving response without a photomyogenic or photoparoxysmal component. INTERPRETATION: This electroencephalogram is essentially normal during wakefulness without evidence for focal or generalized encephalopathy and without evidence for potentially epileptogenic activity.
[2016-11-20] MEDS ORDERED: NRV5 PO (15:23)
[2016-11-20] MEDS ORDERED: LVQ750 PO (15:23)
[2016-11-20] MEDS ORDERED: DXY100 PO (15:23)
[2016-12-28] MEDS ORDERED: DOCU-94 PO (14:31)
[2016-12-28] MEDS ORDERED: ATOR-22 PO (14:31)
[2017-01-08] MEDS ORDERED: DRGTP12 TOP (15:08)
[2017-01-08] MEDS ORDERED: LSX20 PO (16:15)
[2017-01-08] MEDS ORDERED: FLV1 PO (16:15)
[2017-01-08] MEDS ORDERED: FNTTP25 TOP (17:10)
[2017-01-08] MEDS ORDERED: VNTHFA/IN INH (17:10)
[2017-01-08] MEDS ORDERED: IPRASOL4 INH (17:16)
[2017-01-08] MEDS ORDERED: RITO100T PO (17:38)
[2017-01-08] MEDS ORDERED: DARU600T2 PO (17:38)
[2017-01-08] MEDS ORDERED: SYMIN160 INH (17:38)
[2017-01-08] MEDS ORDERED: RALT400T PO (17:38)
== END 2016-10-23 19:09 | disposition home or self-care (01) ==
LOC: ENRESERVTM → ENRESERVDT → EDBD 16:28 → C.EDC 16:29 → C.2T 18:54 → EDBEDREQ 19:12
PROVIDERS: ADMIT Family Medicine; ATTEND Family Medicine
DX: R07.9 Chest pain, unspecified (principal); R25.8 Other abnormal involuntary movements; I10 Essential (primary) hypertension; E78.5 Hyperlipidemia, unspecified; B20 Human immunodeficiency virus [HIV] disease; G62.9 Polyneuropathy, unspecified; I65.21 Occlusion and stenosis of right carotid artery; I25.2 Old myocardial infarction; J44.9 Chronic obstructive pulmonary disease, unspecified; F32.9 Major depressive disorder, single episode, unspecified; F41.9 Anxiety disorder, unspecified; Z86.73 Personal history of transient ischemic attack (TIA), and cerebral infarction without residual deficits; K62.82 Dysplasia of anus; F17.210 Nicotine dependence, cigarettes, uncomplicated; F10.21 Alcohol dependence, in remission; Z79.02 Long term (current) use of antithrombotics/antiplatelets; Z79.82 Long term (current) use of aspirin; Z79.891 Long term (current) use of opiate analgesic; Z79.899 Other long term (current) drug therapy

== ENCOUNTER 2016-10-25 09:49 | Inpatient (IN) | payer OTHER ==
[~2016-10-25] VITALS: Ht 182.9 cm; Wt 86.7 kg
[~2016-10-25 09:49] MED LIST changes: -ALBU1AER9 INH; -ATOR-22 PO; +LPT/40 PO; -MORP30TA23 PO; -MORP60TA6 PO
[2016-10-25] MEDS ORDERED: SODIUM CHLORIDE 0.9% 1000ML 1,000 ML IV STA ×3 (10:14→12:43)
--- NOTE | 2016-10-25 10:20 | DIAGNOSTIC IMAGING REPORT ---
CHEST ONE VIEW PORTABLE CLINICAL HISTORY: Dyspnea. Respiratory distress. COMPARISON STUDY: Chest radiograph October 22, 2016. FINDINGS: Lung volumes are normal. There is no pneumothorax or pleural effusion. Cardiac size is normal. Mediastinal contours are normal. There is no evidence of pulmonary edema. No consolidation is identified. IMPRESSION: No acute cardiopulmonary findings. Electronically signed by: Gabo Moore M.D. 10/25/2016 10:19 AM Dictated Date/Time: 10/25/2016 10:17 AM
[2016-10-25 11:01] LABS: BASO % 0.1 %; BASO ABS # 0.02 K/uL (0-0.2); COMPLETE YES; EOS % 0.3 %; HEMATOCRIT 45.4 % (42-52); IG% 0.4 %; LYMPH % 13.5 %; LYMPH ABS # 2.59 K/uL (1.2-3.4); MEAN CELL VOLUME 84.1 fL (80-100); MEAN CORPUSCULAR HEMOGLOBIN 30.4 pg (25-34); MEAN CORPUSCULAR HGB CONC 36.1 g/dl (32-36); MEAN PLATELET VOLUME 8.6 fL (7.4-10.4); MONO % 8.5 %; NEUT % 77.2 %; PLATELET COUNT 270 K/uL (130-400)
[2016-10-25 11:09] LABS: ALT/SGPT 34 U/L (12-78); AST/SGOT 8 U/L (15-37); BLOOD UREA NITROGEN 14 mg/dl (7-18); BUN/CREATININE RATIO 13.1 (10-20); CALCIUM 9.7 mg/dl (8.5-10.1); CARBON DIOXIDE 27 mmol/L (21-32); CHLORIDE 101 mmol/L (98-107); GLUCOSE 131 mg/dl (70-99); POTASSIUM 3.5 mmol/L (3.5-5.1); SODIUM 138 mmol/L (136-145)
[2016-10-25 11:14] LABS: ALB/GLOB RATIO 1.2 (0.9-2); ALKALINE PHOSPHATASE 103 U/L (45-117); CKMB/CK RATIO 1.7 (0-3.0)
[2016-10-25 11:19] LABS: URINE APPEARANCE CLEAR (CLEAR); URINE BILIRUBIN NEG (NEG); URINE COLOR YELLOW; URINE NITRITE NEG (NEG); URINE SPECIFIC GRAVITY 1.013 (1.000-1.030); UROBILINOGEN NEG (NEG)
[2016-10-25 11:26] LABS: MANUAL MICROSCOPIC REQUIRED? NO; REVIEW REQ? NO
[2016-10-25] MEDS ORDERED: OXYCODONE/ACETAMINOPHEN 5-325 TAB PO ONE (12:15)
[2016-10-25] MEDS ORDERED: LEVALBUTEROL 1.25MG/0.5ML NEB INH STA (12:32)
[2016-10-25] MEDS ORDERED: LEVAQUIN 750MG / 150ML D5W IV STA (12:43)
[2016-10-25] MEDS ORDERED: VANCOMYCIN INJ 1,600 MG in SODIUM CHLORIDE 0.9% 500ML 500 ML IV STA (12:43)
[2016-10-25 12:51] VITALS: PULSE 113; O2SAT 97
[2016-10-25] MEDS ORDERED: FENTANYL CITRATE INJ 50 MCG/1 ML 2 ML VIAL IV STA (13:42)
[2016-10-25] MEDS ORDERED: ACETAMINOPHEN 325 MG TAB PO PRN (13:45)
[2016-10-25] MEDS ORDERED: ALUMINUM/MAGNESIUM/SIMETH (MAALOX MAX) 30 ML UDC PO PRN (13:45)
[2016-10-25] MEDS ORDERED: MAGNESIUM HYDROXIDE SUSP 30 ML UDC PO PRN (13:45)
[2016-10-25] MEDS ORDERED: NITROGLYCERIN 0.4 MG SL PER TAB CHARGE SL PRN (13:45)
[2016-10-25] MEDS ORDERED: POLYETHYLENE (MIRALAX) 17 GM PACK PO PRN (13:45)
[2016-10-25] MEDS ORDERED: ONDANSETRON INJ 2 MG/ML 2 ML VIAL IV PRN (13:45)
[2016-10-25] MEDS ORDERED: ONDANSETRON 4 MG TAB PO PRN (14:00)
[2016-10-25] MEDS ORDERED: OPTIRAY 320 IV PRN (14:15)
[2016-10-25] MEDS ORDERED: MoRPHine SULFATE 2 MG/ML CARP IV PRN (14:30)
--- NOTE | 2016-10-25 14:38 | History and Physical ---
History & Physical Date & Time of Service: October 25, 2016 at 14:16 Chief Complaint: Breathing Issues, Tight Chest-Recent Discharge Primary Care Physician: Guillermo Burdick M.D. History of Present Illness Source: patient, family, clinic records, hospital records This is a 51 year old male with a PMH of HIV with peripheral neuropathy, R internal carotid artery stenosis with multiple and recurrent TIAs, hx. of CVA, possible hx. of IA as per patient, hx. of migraines, chronic pain on long-term narcotics, depression/anxiety, anal dysplasia s/p polyp removal, COPD and current tobacco use, HTN. Presented here on 10/23 due to chest pain - cardiac enzymes, EKG and echo did not suggest any acute process. Outpatient stress was ordered and patient was discharged home. Returned to the ER today with worsening shortness of breath and chest tightness - he presented to the ER and found to have leukocytosis (19k; was discharged two days prior with 8k); found to have lactic acidosis and tachycardia. Improved with oxygen and nebulizer treatments Past Medical/Surgical History Medical Problems: (1) ? H/o IA Status: Chronic (2) Anal dysplasia Status: Chronic (3) Anxiety Status: Chronic (4) AVM (arteriovenous malformation) brain Status: Chronic (5) Carotid stenosis Permanent Comment: 03/06/15-SAÚL occlusion, LICA with 50-59% stenosis Status: Chronic (6) Cerebritis Status: Resolved (7) COPD (chronic obstructive pulmonary disease) Status: Chronic (8) Depression Status: Chronic (9) Dyslipidemia Status: Chronic (10) History of alcohol abuse Status: Resolved (11) History of CVA (cerebrovascular accident) Permanent Comment: in setting of right carotid artery thrombosis Status: Chronic (12) Human immunodeficiency virus infection Status: Chronic (13) Hypertension Status: Chronic (14) Ischemic stroke Status: Resolved (15) Migraine Status: Chronic (16) Polyp of colon Status: Chronic (17) Sepsis Status: Resolved Family History Diabetes mellitus FATHER MOTHER FH: cancer FATHER (lung CA) Hypertension FATHER Social History Smoking Status: Current Every Day Smoker Drug Use: none Marital Status: Housing status: lives with significant other Occupational Status: unemployed Allergies Coded Allergies: Morphine (Verified Allergy, Severe, SHORTNESS OF BREATH, 10/25/16) Penicillins (Verified Allergy, Severe, ANAPHYLAXIS, 10/25/16) Azithromycin (Verified Allergy, Intermediate, RASH AND SKIN PEELING, ) Niacin (Verified Allergy, Intermediate, RASH, 10/25/16) Sulfa Antibiotics (Verified Allergy, Unknown, "ITCHY RASH", 10/25/16) Tramadol (Verified Allergy, Unknown, RASH, 10/25/16) Gabapentin (Verified Adverse Reaction, Intermediate, hallucinations, ) Shellfish (Verified Adverse Reaction, Intermediate, gi symptoms, 10/25/16) Topiramate (Verified Adverse Reaction, Intermediate, NAUSEA, 10/25/16) Meloxicam (Verified Adverse Reaction, Unknown, GI SYMPTOMS, 10/25/16) Home Medications Scheduled Amitriptyline Hcl (Amitriptyline Hcl), 50 MG PO HS Aspirin (Aspirin Ec), 81 MG PO QAM Atorvastatin (Lipitor), 40 MG PO DAILY Budesonide/Formoterol Fumarate (Symbicort 160/4.5 Inhaler), 2 PUFFS INH BID Chlorthalidone (Hygroton), 25 MG PO QAM Clopidogrel (Plavix), 75 MG PO QAM Darunavir Ethanolate (Prezista), 600 MG PO BID Fentanyl (Fentanyl), 25 MCG TD Q72HRS Folic Acid (Folic Acid), 1 MG PO QAM Losartan Potassium (Cozaar), 100 MG PO QAM Metoprolol Tartrate (Metoprolol Tartrate), 100 MG PO BID Raltegravir Potassium (Isentress), 400 MG PO BID Ritonavir (Norvir), 100 MG PO BID Scheduled PRN Albuterol Hfa (Ventolin Hfa), 2 PUFFS INH Q6H PRN for Shortness of Breath Furosemide (Furosemide), 20 MG PO DAILY PRN for swelling Ondansetron Hcl (Zofran), 4 MG PO Q6 PRN for Nausea Oxycodone Hcl (Oxycodone Hcl), 15 MG PO Q4-6HRS PRN for Pain Review of Systems Constitutional: + fatigue, + weakness, No chills, No fever Respiratory: + dyspnea at rest, + dyspnea on exertion, + hemoptysis, + shortness of breath, No cough, No sputum Cardiovascular: + chest pain, No edema, No palpitations Abdomen: No GI bleeding, No constipation, No diarrhea, No nausea, No pain, No vomiting Musculoskeletal: + joint pain (lower extremity, chronic), + muscle pain Genitourinary - Male: No dysuria, No hematuria, No lesions, No urinary frequency, No urinary hesitancy, No urinary incontinence, No urinary retention, No urinary urgency Neurologic: + numbness/tingling, + weakness, No balance problems, No vertigo Psychiatric: No anxiety, No depression symptoms Endocrine: No fatigue Hematologic / Lymphatic: No abnormal bleeding/bruising Integumentary: No itch, No rash Allergic / Immunologic: No environmental allergies, No food allergies, No hives , No seasonal allergies Physical Exam Vital Signs Date Time Temp Pulse Resp B/P Pulse Ox O2 Delivery O2 Flow Rate FiO2 10/25/16 13:53 117 20 105/82 99 Nasal Cannula 2.0 10/25/16 12:51 113 16 97 Nasal Cannula 2.0 10/25/16 12:12 119 20 131/87 99 Nasal Cannula 2.0 10/25/16 11:07 124 10/25/16 10:26 95 Room Air 10/25/16 10:00 36.8 130 20 145/105 99 Room Air 10/25/16 10:00 99 Room Air General Appearance: no apparent distress Head: normocephalic, atraumatic Eyes: normal inspection ENT: hearing grossly normal Neck: supple Respiratory/Chest: chest non-tender, lungs clear, normal breath sounds, no respiratory distress, no accessory muscle use Cardiovascular: no edema, no JVD, no murmur, + tachycardia Abdomen/GI: normal bowel sounds, non tender, soft Extremities/Musculoskelatal: normal inspection, no calf tenderness, normal capillary refill, no pedal edema, normal range of motion Neurologic/Psych: no motor/sensory deficits, alert, normal mood/affect Skin: normal color Lymphatic: no adenopathy Diagnostics Laboratory Results Results Past 24 Hours Test 10/25/16 10:40 10/25/16 10:49 10/25/16 10:54 10/25/16 11:10 Range/Units White Blood Count 19.20 4.8-10.8 K/uL Red Blood Count 5.40 4.7-6.1 M/uL Hemoglobin 16.4 14.0-18.0 g/dL Hematocrit 45.4 42-52 % Mean Corpuscular Volume 84.1 80-100 fL Mean Corpuscular Hemoglobin 30.4 25-34 pg Mean Corpuscular Hemoglobin Concent 36.1 32-36 g/dl Platelet Count 270 130-400 K/uL Mean Platelet Volume 8.6 7.4-10.4 fL Neutrophils (%) (Auto) 77.2 % Lymphocytes (%) (Auto) 13.5 % Monocytes (%) (Auto) 8.5 % Eosinophils (%) (Auto) 0.3 % Basophils (%) (Auto) 0.1 % Neutrophils # (Auto) 14.82 1.4-6.5 K/uL Lymphocytes # (Auto) 2.59 1.2-3.4 K/uL Monocytes # (Auto) 1.64 0.11-0.59 K/uL Eosinophils # (Auto) 0.06 0-0.5 K/uL Basophils # (Auto) 0.02 0-0.2 K/uL RDW Standard Deviation 42.5 36.4-46.3 fL RDW Coefficient of Variation 13.9 11.5-14.5 % Immature Granulocyte % (Auto) 0.4 % Immature Granulocyte # (Auto) 0.07 0.00-0.02 K/uL Sodium Level 138 136-145 mmol/L Potassium Level 3.5 3.5-5.1 mmol/L Chloride Level 101 98-107 mmol/L Carbon Dioxide Level 27 21-32 mmol/L Anion Gap 10.0 3-11 mmol/L Blood Urea Nitrogen 14 7-18 mg/dl Creatinine 1.10 0.60-1.40 mg/dl Est Creatinine Clear Calc Drug Dose 86.2 ml/min Estimated GFR () 89.0 Estimated GFR (Non- 76.8 BUN/Creatinine Ratio 13.1 10-20 Random Glucose 131 70-99 mg/dl Calcium Level 9.7 8.5-10.1 mg/dl Total Bilirubin 0.3 0.2-1 mg/dl Aspartate Amino Transf (AST/SGOT) 8 15-37 U/L Alanine Aminotransferase (ALT/SGPT) 34 12-78 U/L Alkaline Phosphatase 103 45-117 U/L Total Creatine Kinase 70 39-308 U/L Creatine Kinase MB 1.2 0.5-3.6 ng/ml Creatine Kinase MB Ratio 1.7 0-3.0 Troponin I < 0.015 0-0.045 ng/ml Pro-B-Type Natriuretic Peptide 223 0-900 pg/ml Total Protein 8.2 6.4-8.2 gm/dl Albumin 4.4 3.4-5.0 gm/dl Globulin 3.8 2.5-4.0 gm/dl Albumin/Globulin Ratio 1.2 0.9-2 Bedside D-Dimer 370 0-450 ng/mlFEU Bedside Lactic Acid Venous 3.72 0.90-1.70 mmol/L Urine Color YELLOW Urine Appearance CLEAR CLEAR Urine pH 6.0 4.5-7.5 Urine Specific Wilson 1.013 1.000-1.030 Urine Protein NEG NEG Urine Glucose (UA) TRACE NEG Urine Ketones NEG NEG Urine Occult Blood NEG NEG Urine Nitrite NEG NEG Urine Bilirubin NEG NEG Urine Urobilinogen NEG NEG Urine Leukocyte Esterase NEG NEG Test 10/25/16 14:06 10/25/16 14:10 Range/Units Microbiology Results 10/25/16 Blood Culture, Received Pending 10/25/16 Blood Culture, Received Pending 10/25/16 Urine Culture, Received Pending Diagnostic Radiology CHEST ONE VIEW PORTABLE CLINICAL HISTORY: Dyspnea. Respiratory distress. COMPARISON STUDY: Chest radiograph October 22, 2016. FINDINGS: Lung volumes are normal. There is no pneumothorax or pleural effusion. Cardiac size is normal. Mediastinal contours are normal. There is no evidence of pulmonary edema. No consolidation is identified. IMPRESSION: No acute cardiopulmonary findings. Impression Assessment and Plan This is a 51 year old male with a PMH of HIV with peripheral neuropathy, R internal carotid artery stenosis with multiple and recurrent TIAs, hx. of CVA, possible hx. of IA as per patient, hx. of migraines, chronic pain on long-term narcotics, depression/anxiety, anal dysplasia s/p polyp removal, COPD and current tobacco use, HTN SIRS criteria in the setting of Immunodeficiency with HIV patient states he has been doing well with his HIV medications and follows with outpatient ID regarding CD4 count He was here secondary to chest pressure/pain on 10/23 - presents with shortness of breath/chest pain found to have leukocytosis, 19k; lactic acidosis > 3; tachycardia CXR negative, UA negative blood culture, urine culture pending given Levaquin + Vancomycin in the ER as well as fluids will check a CT chest to r/o PE will check CD4 count, HIV RNA, RPR, Hep C RNA; will repeat lactic acid multiple antibiotic allergies noted; will continue Levaquin and give IVFs ID consultation for further input Chest Pain r/o ACS patient presented with chest pain on 10/23 cardiac enzymes, EKG, echo looked fine at that time outpatient stress ordered and was discharged due to chest tightness and tachycardia, will trend enzymes again, repeat EKG in AM cardiology consultation for possible stress in AM? COPD Current Tobacco Use does not seem to be in an exacerbation; no wheezing appreciated possible bronchitis? will add Xopenex (secondary to tachycardia) O2 as needed may need a prednisone taper Peripheral Neuropathy Chronic Pain and on long-term narcotics will give low dose morphine for now follows with outpatient pain management, and should follow-up with them if pain is not controlled Recurrent TIAs Complete Occlusion of R carotid continue Plavix + statin EEG during previous admission was negative Anal Dysplasia to have f/u colonoscopy as outpatient HTN blood pressure stable hold Chlorthalidone, will be giving IVFs DVT ppx Lovenox FULL CODE Level of Care Telemetry VTE Prophylaxis VTE Risk Assessment Done? Y/N: Yes Risk Level: Moderate
[2016-10-25] MEDS ORDERED: IV FLUIDS COMPLETED PRN ×2 (15:00→15:15)
--- NOTE | 2016-10-25 15:03 | DIAGNOSTIC IMAGING REPORT ---
CT ANGIOGRAPHY OF THE CHEST, PULMONARY EMBOLUS PROTOCOL CLINICAL HISTORY: Chest pain, shortness of breath and chest tightness. COMPARISON STUDY: Chest radiograph October 22, 2016. TECHNIQUE: Following IV administration of 111 mL of [id number]-[id number], helical axial images of the chest were obtained utilizing the pulmonary embolus protocol. Maximal intensity projections and sagittal and coronal reformats were viewed on an independent 3D workstation. IV contrast was administered without complication. CT DOSE: 421.02 mGy.cm FINDINGS: No pulmonary emboli are identified. There is no evidence of thoracic aortic dissection. The size pf the heart is normal. There is no pericardial effusion. There is no thoracic lymphadenopathy. There are no areas of consolidation. The bony thorax is unremarkable. Fatty infiltration of the liver is noted. IMPRESSION: 1. No pulmonary emboli identified. 2. No acute intrathoracic findings. Electronically signed by: Gabo Moore M.D. 10/25/2016 3:02 PM Dictated Date/Time: 10/25/2016 2:55 PM
[2016-10-25] MEDS: SODIUM CHLORIDE 0.9% 1000ML 1,000 ML IV SCH (15:11)
[2016-10-25 15:15] VITALS: BP 142/78; PULSE 116; TEMP 36.6; O2SAT 100; Ht 182.9 cm; Wt 86.7 kg
[2016-10-25 15:55] VITALS: PULSE 119; O2SAT 97
[2016-10-25] MEDS: LEVALBUTEROL 0.63MG/3 ML NEB INH SCH ×2 (15:55→19:57)
[2016-10-25] MEDS ORDERED: NURSING VERBAL MED ORDER ONE (16:00)
[2016-10-25] MEDS ORDERED: ALBUT/IPRATROP 3MG/0.5MG NEB 3 ML VIAL INH SCH (16:00)
[2016-10-25] MEDS ORDERED: FENTANYL PATCH REMOVE & WASTE SCH (16:29)
[2016-10-25] MEDS ORDERED: FENTANYL 25 MCG/HR TDSY TD SCH (16:30)
[2016-10-25] MEDS: ENOXAPARIN 40 MG/0.4 ML SYR SC SCH (16:40)
--- NOTE | 2016-10-25 16:51 | EMERGENCY ROOM VISIT NOTE ---
History Report prepared by Brittni: Sarah Al Under the Supervision of: Dr. Stiven Rebollar M.D. First contact with patient: 09:58 Chief Complaint: RESPIRATORY PROBLEMS Stated Complaint: BREATHING ISSUES, TIGHT CHEST-RECENT DISCHARGE Nursing Triage Summary: pt seen and admitted in hospital on into Wednesday today pt awoke in cold sweat tight chest History of Present Illness The patient is a 51 year old male who presents to the Emergency Room with complaints of an episode of difficulty breathing worsening today. He states that he was in the hospital for a night three days ago. He states that has had chest pain that makes his chest feel tight. He notes that he had a cough with it and was coughing a green mucus up. He states that he no longer coughs this up , but has developed a shortness of breath. He states that he sometimes feels like he needs to gasp for air. The patient notes that he has a history of TIA, heart attack, stroke, and HIV. HE reports that his carotid arteries are 100% clogged on the right side and 40% on the left. The patient also notes that he has chronic pain from neuropathy and has COPD. The patient complains of clamminess. Pt denies LOC, headache, fevers, visual changes, neck pain, nausea, vomiting, abdominal pain, back pain, melena, hematochezia, urinary symptoms, numbness, weakness, lymphadenopathy, rash, or other complaints. Source of History: patient Onset: today Position: other (global) Quality: other (global) Timing: worsening, other (episode) Associated Symptoms: + chest pain, + chills, + cough, + diaphoresis Review of Systems See HPI for pertinent positives and negatives. A total of ten systems were reviewed and were otherwise negative. Past Medical & Surgical Medical Problems: (1) ? H/o CA (2) Anal dysplasia (3) Anxiety (4) AVM (arteriovenous malformation) brain (5) Carotid stenosis (6) Cerebritis (7) COPD (chronic obstructive pulmonary disease) (8) Depression (9) Dyslipidemia (10) Headache (11) History of alcohol abuse (12) History of CVA (cerebrovascular accident) (13) Human immunodeficiency virus infection (14) Hypertension (15) Ischemic stroke (16) Leukocytosis (17) Migraine (18) Numbness of left hand (19) Polyp of colon (20) Sepsis (21) Syncope Family History Diabetes mellitus FATHER MOTHER FH: cancer FATHER (lung CA) Hypertension FATHER Social History Smoking Status: Current Every Day Smoker Alcohol Use: none Drug Use: none Marital Status: Housing Status: lives with family Occupation Status: unemployed Current/Historical Medications Scheduled Amitriptyline Hcl (Amitriptyline Hcl), 50 MG PO HS Aspirin (Aspirin Ec), 81 MG PO QAM Atorvastatin (Lipitor), 40 MG PO DAILY Budesonide/Formoterol Fumarate (Symbicort 160/4.5 Inhaler), 2 PUFFS INH BID Chlorthalidone (Hygroton), 25 MG PO QAM Clopidogrel (Plavix), 75 MG PO QAM Darunavir Ethanolate (Prezista), 600 MG PO BID Fentanyl (Fentanyl), 25 MCG TD Q72HRS Folic Acid (Folic Acid), 1 MG PO QAM Losartan Potassium (Cozaar), 100 MG PO QAM Metoprolol Tartrate (Metoprolol Tartrate), 100 MG PO BID Raltegravir Potassium (Isentress), 400 MG PO BID Ritonavir (Norvir), 100 MG PO BID Scheduled PRN Albuterol Hfa (Ventolin Hfa), 2 PUFFS INH Q6H PRN for Shortness of Breath Furosemide (Furosemide), 20 MG PO DAILY PRN for swelling Ondansetron Hcl (Zofran), 4 MG PO Q6 PRN for Nausea Oxycodone Hcl (Oxycodone Hcl), 15 MG PO Q4-6HRS PRN for Pain Allergies Coded Allergies: Penicillins (Verified Allergy, Severe, ANAPHYLAXIS, 10/25/16) Azithromycin (Verified Allergy, Intermediate, RASH AND SKIN PEELING, ) Niacin (Verified Allergy, Intermediate, RASH, 10/25/16) Sulfa Antibiotics (Verified Allergy, Unknown, "ITCHY RASH", 10/25/16) Tramadol (Verified Allergy, Unknown, RASH, 10/25/16) Gabapentin (Verified Adverse Reaction, Intermediate, hallucinations, ) Shellfish (Verified Adverse Reaction, Intermediate, gi symptoms, 10/25/16) Topiramate (Verified Adverse Reaction, Intermediate, NAUSEA, 10/25/16) Meloxicam (Verified Adverse Reaction, Unknown, GI SYMPTOMS, 10/25/16) Morphine (Verified Adverse Reaction, Unknown, SHORTNESS OF BREATH-PO MORPHINE, 10/25/16) Physical Exam Vital Signs Date Time Temp Pulse Resp B/P Pulse Ox O2 Delivery O2 Flow Rate FiO2 10/25/16 13:53 117 20 105/82 99 Nasal Cannula 2.0 10/25/16 12:51 113 16 97 Nasal Cannula 2.0 10/25/16 12:12 119 20 131/87 99 Nasal Cannula 2.0 10/25/16 11:07 124 10/25/16 10:26 95 Room Air 10/25/16 10:00 36.8 130 20 145/105 99 Room Air 10/25/16 10:00 99 Room Air Physical Exam GENERAL: Awake, alert, well-appearing, in no distress HENT: Normocephalic, atraumatic. Oropharynx unremarkable. EYES: Normal conjunctiva. Sclera non-icteric. NECK: Supple. No nuchal rigidity. FROM. No JVD. RESPIRATORY: Clear to auscultation. CARDIAC: Tachycardic. Extremities warm and well perfused. Pulses equal. ABDOMEN: Soft, non-distended. No tenderness to palpation. No rebound or guarding. No masses. RECTAL: Deferred. MUSCULOSKELETAL: Chest examination reveals no tenderness. The back is symmetrical on inspection without obvious abnormality. There is no CVA tenderness to palpation. No joint edema. LOWER EXTREMITIES: Calves are equal size bilaterally and non-tender. No edema. No discoloration. NEURO: Normal sensorium. No sensory or motor deficits noted. SKIN: No rash or jaundice noted. Medical Decision & Procedures ER Provider Diagnostic Interpretation: Radiology results as stated below per my review and radiologist interpretation: CHEST ONE VIEW PORTABLE CLINICAL HISTORY: Dyspnea. Respiratory distress. COMPARISON STUDY: Chest radiograph October 22, 2016. FINDINGS: Lung volumes are normal. There is no pneumothorax or pleural effusion. Cardiac size is normal. Mediastinal contours are normal. There is no evidence of pulmonary edema. No consolidation is identified. IMPRESSION: No acute cardiopulmonary findings. Electronically signed by: Gabo Moore M.D. 10/25/2016 10:19 AM Dictated Date/Time: 10/25/2016 10:17 AM Laboratory Results 10/25/16 10:40 Red Blood Count 5.40, Mean Corpuscular Volume 84.1, Mean Corpuscular Hemoglobin 30.4, Mean Corpuscular Hemoglobin Concent 36.1, Mean Platelet Volume 8.6, Neutrophils (%) (Auto) 77.2, Lymphocytes (%) (Auto) 13.5, Monocytes (%) (Auto) 8.5, Eosinophils (%) (Auto) 0.3, Basophils (%) (Auto) 0.1, Neutrophils # (Auto) 14.82, Lymphocytes # (Auto) 2.59, Monocytes # (Auto) 1.64, Eosinophils # (Auto) 0.06, Basophils # (Auto) 0.02 10/25/16 10:40 Test 10/25/16 10:40 10/25/16 10:49 10/25/16 10:54 10/25/16 11:10 White Blood Count 19.20 K/uL (4.8-10.8) Red Blood Count 5.40 M/uL (4.7-6.1) Hemoglobin 16.4 g/dL (14.0-18.0) Hematocrit 45.4 % (42-52) Mean Corpuscular Volume 84.1 fL (80-100) Mean Corpuscular Hemoglobin 30.4 pg (25-34) Mean Corpuscular Hemoglobin Concent 36.1 g/dl (32-36) Platelet Count 270 K/uL (130-400) Mean Platelet Volume 8.6 fL (7.4-10.4) Neutrophils (%) (Auto) 77.2 % Lymphocytes (%) (Auto) 13.5 % Monocytes (%) (Auto) 8.5 % Eosinophils (%) (Auto) 0.3 % Basophils (%) (Auto) 0.1 % Neutrophils # (Auto) 14.82 K/uL (1.4-6.5) Lymphocytes # (Auto) 2.59 K/uL (1.2-3.4) Monocytes # (Auto) 1.64 K/uL (0.11-0.59) Eosinophils # (Auto) 0.06 K/uL (0-0.5) Basophils # (Auto) 0.02 K/uL (0-0.2) RDW Standard Deviation 42.5 fL (36.4-46.3) RDW Coefficient of Variation 13.9 % (11.5-14.5) Immature Granulocyte % (Auto) 0.4 % Immature Granulocyte # (Auto) 0.07 K/uL (0.00-0.02) Anion Gap 10.0 mmol/L (3-11) Est Creatinine Clear Calc Drug Dose 86.2 ml/min Estimated GFR () 89.0 Estimated GFR (Non- 76.8 BUN/Creatinine Ratio 13.1 (10-20) Calcium Level 9.7 mg/dl (8.5-10.1) Total Bilirubin 0.3 mg/dl (0.2-1) Aspartate Amino Transf (AST/SGOT) 8 U/L (15-37) Alanine Aminotransferase (ALT/SGPT) 34 U/L (12-78) Alkaline Phosphatase 103 U/L (45-117) Total Creatine Kinase 70 U/L (39-308) Creatine Kinase MB 1.2 ng/ml (0.5-3.6) Creatine Kinase MB Ratio 1.7 (0-3.0) Troponin I < 0.015 ng/ml (0-0.045) Pro-B-Type Natriuretic Peptide 223 pg/ml (0-900) Total Protein 8.2 gm/dl (6.4-8.2) Albumin 4.4 gm/dl (3.4-5.0) Globulin 3.8 gm/dl (2.5-4.0) Albumin/Globulin Ratio 1.2 (0.9-2) Bedside D-Dimer 370 ng/mlFEU (0-450) Bedside Lactic Acid Venous 3.72 mmol/L (0.90-1.70) Urine Color YELLOW Urine Appearance CLEAR (CLEAR) Urine pH 6.0 (4.5-7.5) Urine Specific [place] 1.013 (1.000-1.030) Urine Protein NEG (NEG) Urine Glucose (UA) TRACE (NEG) Urine Ketones NEG (NEG) Urine Occult Blood NEG (NEG) Urine Nitrite NEG (NEG) Urine Bilirubin NEG (NEG) Urine Urobilinogen NEG (NEG) Urine Leukocyte Esterase NEG (NEG) Laboratory results reviewed by me Medications Administered Medications (Trade) Dose Ordered Sig/Josh Route Start Time Stop Time Status Last Admin Dose Admin Sodium Chloride 1,000 ml @ 999 mls/hr Q1H1M STAT IV 10/25/16 10:14 10/25/16 11:14 DC 10/25/16 10:14 999 MLS/HR Sodium Chloride (Nss 1000ml) 1,000 ml @ 200 mls/hr Q5H STAT IV 10/25/16 10:14 10/25/16 15:13 DC 10/25/16 11:28 200 MLS/HR Oxycodone/ Acetaminophen (Percocet 5-325mg Tab) 1 tab NOW ONCE PO 10/25/16 12:15 10/25/16 12:16 DC 10/25/16 12:15 1 TAB Levalbuterol 1.25 mg 1.25 mg NOW STAT INH 10/25/16 12:32 10/25/16 12:33 DC 10/25/16 12:52 1.25 MG Sodium Chloride (Nss 1000ml) 1,000 ml @ 999 mls/hr Q1H1M STAT IV 10/25/16 12:43 10/25/16 13:43 DC 10/25/16 12:54 999 MLS/HR Levofloxacin 750 mg 750 mg NOW STAT IV 10/25/16 12:43 10/25/16 12:45 DC 10/25/16 12:54 750 MG Vancomycin HCl 1600 mg/Sodium Chloride 532 ml @ 200 mls/hr ONE STAT IV 10/25/16 12:43 10/25/16 15:22 DC 10/25/16 15:10 200 MLS/HR Sodium Chloride (Nss 1000ml) 1,000 ml @ 125 mls/hr Q8H IV 10/25/16 13:32 11/24/16 13:31 10/25/16 15:11 100 MLS/HR Fentanyl Citrate (Fentanyl Inj) 100 mcg NOW STAT IV 10/25/16 13:42 10/25/16 13:43 DC 10/25/16 13:52 100 MCG ECG Indication: SOB/dyspnea Rate (beats per minute): 124 Rhythm: sinus tachycardia Findings: Q waves (Inferior), no acute ischemic change, other (IRBB) ED Course 1011: The patient was evaluated in room C4. A complete history and physical exam was performed. 1014: Ordered NSS 1000 ml @ 200 mls/hr IV, NSS 1000 ml @ 999 mls/hr IV. 1215: Ordered Percocet 5-325 mg Tab 1 tab PO. 1232: Ordered Levalbuterol 1.25 mg INH. 1243: Vancomycin HCl 1600 mg/ Sodium Chloride 532 ml @ 200 mls/hr IV, Levofloxacin 750 mg IV, NSS 1000 ml @ 999 mls/hr IV. 1247: I revaluated the patient and updated him on his results. He is doing okay. 1256: I informed the patient of the future treatment plan. He verbalized agreement and understanding. 1324:Discussed the patient's case Dr. Africa Montes. The patient will be evaluated for further treatment and disposition. Medical Decision Triage Nursing notes reviewed. The patient's presentation and history were concerning for chest pain and breathing issues.. Etiologies such as cardiac ischemia, aortic dissection, pulmonary embolism, pneumonia, pneumothorax, musculoskeletal, infections, gastrointestinal, as well as others were entertained. The patient was evaluated. Prior records were reviewed. He was found to be tachycardic. Blood work was obtained. Chest x-ray did not reveal any significant findings. Tachycardia noted on ECG without ischemia. He had a significant leukocytosis. The patient was given IV fluids. He requested Percocet for his chronic neuropathy pain and was given 1. The patient had an unremarkable chemistry panel and d-dimer. Cardiac markers negative. The patient was found to have an unremarkable urinalysis. The patient's lactate was found to be elevated over 3. He was given additional IV fluids, IV Levaquin and IV vancomycin due to concerns about sepsis. The patient will need further evaluation and management in the hospital. He notes continued pain and states that was due to be changed. He did request distal fentanyl. He was given 1 dose for his pain. Consultation was made with internal medicine. The patient was evaluated in the Emergency Room for further management. The chart was completed utilizing [employer] Speech voice recognition software. Grammatical errors, random word insertions, pronoun errors, and incomplete sentences are an occasional consequence of this system due to software limitations, ambient noise, and hardware issues. Any formal questions or concerns about the content, text, or information contained within the body of this dictation should be directly addressed to the physician for clarification. Consults Time Called: 1248 Consulting Physician: Dr. Africa Montes Returned Call: 1324 Discussed the patient's case Dr. Africa Montes. The patient will be evaluated for further treatment and disposition. Impression Primary Impression: Left sided chest pain Additional Impressions: Sepsis Human immunodeficiency virus infection Scribe Attestation The scribe's documentation has been prepared under my direction and personally reviewed by me in its entirety. I confirm that the note above accurately reflects all work, treatment, procedures, and medical decision making performed by me. Departure Information Dispostion Being Evaluated By Hospitalist Referrals No Doctor, Assigned (PCP) Patient Instructions My [facility] Problem Qualifiers
[2016-10-25] MEDS: OXYCODONE HCL IR 5 MG TAB (IMMEDIATE RELEASE) PO PRN (18:57)
[2016-10-25 19:24] VITALS: BP 118/78; PULSE 113; TEMP 36.9; O2SAT 99
[2016-10-25 19:57] VITALS: PULSE 115; O2SAT 95
[2016-10-25] MEDS: BUDESONIDE/FORMOTEROL FUMARATE 160/4.5 60 PUFFS/INHALER INH SCH (20:42)
[2016-10-25] MEDS: RALTEGRAVIR POTASSIUM TAB 400 MG TAB PO SCH (20:44)
[2016-10-25] MEDS: AMITRIPTYLINE HCL 25 MG TAB PO SCH (20:45)
[2016-10-25] MEDS: METOPROLOL TARTRATE 100 MG TAB PO SCH (20:45)
[2016-10-25] MEDS: DARUNAVIR ETHANOLATE 600 MG TAB PO SCH (20:45)
[2016-10-25] MEDS: RITONAVIR 100 MG TAB PO SCH (20:45)
[2016-10-25] MEDS ORDERED: DARUNAVIR ETHANOLATE 600 MG PO SCH (21:00)
[2016-10-25] MEDS ORDERED: NON-FORMULARY MEDICATION (Ritonavir (Norvir) 100 MG) PO SCH (21:00)
[2016-10-25] MEDS ORDERED: RALTEGRAVIR POTASSIUM TAB 400 MG TAB PO SCH (21:00)
[2016-10-25] MEDS: ZOLPIDEM TARTRATE 5 MG TAB PO PRN (22:28)
[2016-10-25] MEDS: MoRPHine SULFATE 4 MG/ML 1 ML CARP\\VIAL IV PRN (22:29)
[2016-10-25 22:45] LABS: CKMB/CK RATIO 2.7 (0-3.0)
[2016-10-25 23:16] VITALS: BP 122/69; PULSE 105; TEMP 36.8; O2SAT 98
[2016-10-26] VITALS (10 sets, daily range): BP systolic 109–157; BP diastolic 73–94; PULSE 70–103; TEMP 36.5–37.1; O2SAT 93–98
[2016-10-26] MEDS: SODIUM CHLORIDE 0.9% 1000ML 1,000 ML IV SCH ×4 (00:43→18:00)
[2016-10-26] MEDS: OXYCODONE HCL IR 5 MG TAB (IMMEDIATE RELEASE) PO PRN ×5 (00:44→23:58)
[2016-10-26] MEDS: LEVALBUTEROL 0.63MG/3 ML NEB INH SCH ×4 (02:10→20:11)
[2016-10-26] MEDS: MoRPHine SULFATE 4 MG/ML 1 ML CARP\\VIAL IV PRN ×2 (04:09→07:43)
[2016-10-26 04:37] LABS: ALT/SGPT 27 U/L (12-78); AST/SGOT 7 U/L (15-37); BLOOD UREA NITROGEN 14 mg/dl (7-18); CALCIUM 8.7 mg/dl (8.5-10.1); CARBON DIOXIDE 31 mmol/L (21-32); CHLORIDE 104 mmol/L (98-107); GLUCOSE 134 mg/dl (70-99); MAGNESIUM 2.2 mg/dl (1.8-2.4); POTASSIUM 4.3 mmol/L (3.5-5.1); SODIUM 140 mmol/L (136-145)
[2016-10-26 04:41] LABS: BASO % 0.4 %; BASO ABS # 0.06 K/uL (0-0.2); COMPLETE YES; EOS % 0.8 %; HEMATOCRIT 40.4 % (42-52); IG% 0.3 %; LYMPH % 25.6 %; LYMPH ABS # 3.62 K/uL (1.2-3.4); MEAN CELL VOLUME 86.3 fL (80-100); MEAN CORPUSCULAR HEMOGLOBIN 28.8 pg (25-34); MEAN CORPUSCULAR HGB CONC 33.4 g/dl (32-36); MEAN PLATELET VOLUME 8.8 fL (7.4-10.4); MONO % 8.3 %; NEUT % 64.6 %; PLATELET COUNT 254 K/uL (130-400); RED BLOOD COUNT 4.68 M/uL (4.7-6.1); WHITE BLOOD COUNT 14.15 K/uL (4.8-10.8)
[2016-10-26 04:46] LABS: ALB/GLOB RATIO 1.2 (0.9-2); ALKALINE PHOSPHATASE 81 U/L (45-117); CKMB/CK RATIO 2.1 (0-3.0); PHOSPHORUS 3.4 mg/dl (2.5-4.9); THYROID STIMULATING HORMONE 0.873 uIu/ml (0.300-4.500)
[2016-10-26] MEDS: CHECK FENTANYL PATCH PLACEMENT SCH ×3 (07:41→15:24)
[2016-10-26] MEDS: BUDESONIDE/FORMOTEROL FUMARATE 160/4.5 60 PUFFS/INHALER INH SCH ×2 (07:43→20:57)
[2016-10-26] MEDS ORDERED: ASPIRIN 81 MG ECTAB PO SCH (09:00)
[2016-10-26] MEDS ORDERED: METOPROLOL TARTRATE 1 MG/ML VIAL ONE (09:26)
[2016-10-26] MEDS ORDERED: DOBUTamine HCL 12.5 MG/ML 20 ML VIAL ONE (09:26)
[2016-10-26] MEDS ORDERED: ATROPINE SULFATE 0.1 MG/ML 5ML SYR ONE (09:26)
--- NOTE | 2016-10-26 09:56 | Procedure Note ---
Procedure Note Date of Service October 26, 2016. Procedure Note nonischemic stress echocardiogram Chest discomfort is noncardiac in origin no further cardiac testing necessary ok to d/c from cardiac standpoint would recommend pulm eval no cardiac follow up necessary at this time
[2016-10-26] MEDS: CLOPIDOGREL BISULFATE 75 MG TAB PO SCH (10:21)
[2016-10-26] MEDS: ATORVASTATIN 20 MG TAB PO SCH (10:21)
[2016-10-26] MEDS: ASPIRIN 81 MG ECTAB PO SCH (10:21)
[2016-10-26] MEDS: METOPROLOL TARTRATE 100 MG TAB PO SCH ×2 (10:21→21:00)
[2016-10-26] MEDS: RALTEGRAVIR POTASSIUM TAB 400 MG TAB PO SCH ×2 (10:22→21:03)
[2016-10-26] MEDS: LOSARTAN POTASSIUM 50 MG TAB PO SCH (10:22)
[2016-10-26] MEDS: DARUNAVIR ETHANOLATE 600 MG TAB PO SCH ×2 (10:23→21:01)
[2016-10-26] MEDS: RITONAVIR 100 MG TAB PO SCH ×2 (10:23→21:01)
--- NOTE | 2016-10-26 10:41 | CARDIOLOGY CONSULTATION ---
DATE OF CONSULTATION: 10/26/2016 CONSULTATION REQUESTED BY: Yumiko Pritchard DO REASON FOR CONSULTATION: Chest pain. HISTORY OF PRESENT ILLNESS: Mr. Higgins is a 51-year-old gentleman who returned to [facility] Emergency Department on 10/25/2016 after being discharged on the with a complaint of recurrence of chest pain. The patient states his chest pain has been going on for a little bit over a week now. He describes it as a tightness sensation in his chest and states that whenever he gets short of breath, which occurs with minimal exertion, his chest will start to feel tight. He was admitted on October 22 and cardiac workup was unremarkable and outpatient nuclear stress test was ordered; however, the patient had recurrences of his discomfort on the and came back in the hospital. He states that the pain is exactly similar to as it was before. He describes this as tightness and feeling that he is unable to get a deep breath. He states that after getting a nebulizer treatment in the Emergency Department he has had no recurrences and states he feels much better after having a nebulizer treatment. PAST SURGICAL HISTORY: Rectal lesion excisions. MEDICAL ILLNESSES: 1. CVA with known 100% right carotid artery occlusion. 2. Recurrent admissions for TIAs and weakness. 3. HIV positive. 4. Self-reported myocardial infarction over 10 years ago while residing at [place]. 5. Depression. 6. History of alcoholism. 7. Hypertension. 8. Anxiety. 9. COPD. 10. Chronic tobacco abuse. 11. Tremors. 12. Medical noncompliance. FAMILY HISTORY: Denies any premature coronary artery disease or sudden cardiac . SOCIAL HISTORY: The patient is a long-term smoker and continues to smoke. He is a former alcoholic, states he quit 11 years ago. Denies any recreational drug use. He is not currently employed. 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 REVIEW OF SYSTEMS: As per HPI, all other review of systems reviewed and negative at this time. ALLERGIES: 1. MORPHINE. 2. PENICILLIN. 3. AZITHROMYCIN 4. NIACIN. 5. SULFA. 6. TRAMADOL. 7. GABAPENTIN. 8. SHELLFISH. 9. TOPIRAMATE. 10. MELOXICAM. MEDICATIONS AN OUTPATIENT: 1. Fentanyl patch. 2. Albuterol inhaler as needed. 3. Lasix 20 mg daily as needed. 4. Cozaar 100 mg daily. 5. Lipitor 20 mg daily. 6. Metoprolol tartrate 100 mg b.i.d. 7. Aspirin 81 mg daily. 8. Plavix 75 mg daily. 9. Norvir b.i.d. 10. Symbicort b.i.d. 11. Isentress b.i.d. 12. Chlorthalidone 25 mg daily. 13. Provista b.i.d. 14. Amitriptyline at bedtime. 15. Oxycodone p.r.n. PHYSICAL EXAMINATION: VITAL SIGNS: Temperature 36.5, pulse 79, respiratory rate 12, blood pressure 127/92. GENERAL: Awake, alert, oriented x3, in no acute distress. HEENT: Normocephalic, atraumatic. Pupils are equal, round, and reactive to light and accommodation. Extraocular muscles intact. Anicteric sclerae. Moist mucous membranes. Poor dentition. NECK: No JVD, no bruit. CARDIOVASCULAR: Regular. Positive S4. Normal S1 and S2. No S3. No murmurs or rubs. PULMONARY: Poor air movement bilaterally with scattered rhonchi. No rales or wheezing. ABDOMEN: Bowel sounds x4, soft. No rebound, guarding, tenderness. No organomegaly. EXTREMITIES: No clubbing, cyanosis or edema. +2 pedal pulses bilaterally. SKIN: Warm and dry. TEST RESULTS: 2D echocardiogram from 10/23/2016 was read as ejection fraction 60-65%, left ventricular wall motion is normal. Mild concentric LVH, grade 2 diastolic dysfunction, trace mitral regurgitation, borderline aortic root dilatation, mildly dilated ascending aorta. Dobutamine stress echocardiogram today was nonischemic with normal heart rate and blood pressure response to dobutamine infusion. IMPRESSION: 1. Noncardiac chest pain. 2. Chronic obstructive pulmonary disease with ongoing tobacco abuse. 3. Human immunodeficiency virus positive. 4. History of medical noncompliance. 5. Right carotid occlusion. 6. History of cerebrovascular accident and transient ischemic attacks. RECOMMENDATIONS: Mr. Higgins was counseled given the fact that his stress test was nonischemic, but I do not see any ischemic component to his chest discomfort. So no further cardiac testing or followup is necessary at this point. No medication changes will be made from a cardiac standpoint and I recommend he follow up with his PCP as an outpatient. I would also recommend pulmonary evaluation for his COPD with continued tobacco abuse which is likely causing his discomfort.
--- NOTE | 2016-10-26 12:15 | DOBUTAMINE ECHO ---
*NOTICE TO RECEIVING LIBERTARIAN AGENCY This information is strictly Confidential and protected under [place] law. [place] law prohibits you from making any further disclosure of this information unless further disclosure is expressly permitted by the written consent of the person to whom it pertains or is authorized by law. A general authorization for the release of medical or other information is not sufficient for this purpose. Hospital accepts no responsibility if the information is made available to any other person, INCLUDING THE PATIENT. Interpretation Summary * Name: CHERIE CHENG Study Date: 10/26/2016 09:11 AM BP: 132/96 mmHg * Patient Location: .[id number]\S\1 HR: 76 * : 1965 (M/d/yyyy) Gender: Male Height: 72 in * Age: 51 yrs Ethnicity: CA Weight: 186 lb * Ordering Physician: Ricky Reddy * Referring Physician: Self, Referred * Performed By: Katty Elder RCS * * Reason For Study: CHEST PAIN * BSA: 2.1 m2 * -- Conclusions -- * Nonischemic dobutamine stress echocardiogram. * No arrhythmias. * Normal HR and BP response. Procedure Details * DOBUTAMINE ECHO, CPT#50071 Stress Parameters * The stress portion of this study was personally supervised by the undersigned interpreting physician. * Rest heart rate was '76' BPM. * Rest blood pressure was '132/96' * Maximum heart rate achieved was 142 bpm. * Maximum heart rate was 84 % of maximum age-predicted heart rate. * Maximum blood pressure was '187/78' * Maximum Dobutamine infusion rate was '50' mcg/kg/min. * A total of 2.0 mg of intravenous Atropine was used to supplement Dobutamine for heart rate response. * Dobutamine infusion was terminated due to end of protocol/maximum medication doses * A total of 10.0 mg of IV Metoprolol was administered to reverse Dobutamine-induced tachycardia.
[2016-10-26] MEDS ORDERED: LEVOFLOXACIN / D5W 750 MG in PREMIXED IN D5W 150 ML IV SCH (13:00)
--- NOTE | 2016-10-26 13:32 | Progress Note ---
Subjective Date of Service: October 26, 2016. Subjective Pt evaluation today including: conversation w/ patient, physical exam, lab review, review of studies, review of inpatient medication list Saw/examined the patient in room 243 had his stress test this morning and no issues no chest pain or shortness of breath today - improvement with nebulizer +weakness, +sweats Problem List Medical Problems: (1) Anterior chest wall pain Status: Acute (2) Headache Status: Acute (3) Human immunodeficiency virus infection Status: Chronic (4) Involuntary movements Status: Acute (5) Left sided chest pain Status: Acute (6) Paresthesia Status: Acute (7) Precordial chest pain Status: Acute (8) Right leg weakness Status: Acute (9) Syncope Status: Acute (10) TIA (transient ischemic attack) Status: Acute Review of Systems Constitutional: + sweats, + weakness, No chills, No fever Respiratory: No cough, No shortness of breath, No sputum Cardiac: No chest pain Abdomen: No diarrhea, No nausea, No pain, No vomiting Heme: No abnormal bleeding/bruising Medications Current Inpatient Medications Medications (Trade) Dose Ordered Sig/Josh Route Start Time Stop Time Status Last Admin Dose Admin Enoxaparin Sodium 40 mg 40 mg Q24H SC 10/25/16 16:00 11/24/16 15:59 10/25/16 16:40 40 MG Sodium Chloride (Nss 1000ml) 1,000 ml @ 125 mls/hr Q8H IV 10/25/16 13:32 11/24/16 13:31 10/26/16 07:41 125 MLS/HR Acetaminophen (Tylenol Tab) 650 mg Q4H PRN PO 10/25/16 13:45 11/24/16 13:44 Al Hydrox/Mg Hydrox/Simethicone (Maalox Max Susp) 15 ml Q4H PRN PO 10/25/16 13:45 11/24/16 13:44 Magnesium Hydroxide (Milk Of Magnesia Susp) 30 ml Q12H PRN PO 10/25/16 13:45 11/24/16 13:44 Ondansetron HCl (Zofran Inj) 4 mg Q6H PRN IV 10/25/16 13:45 11/24/16 13:44 Nitroglycerin (Nitrostat Tab) 0.4 mg UD PRN SL 10/25/16 13:45 11/24/16 13:44 Aspirin (Ecotrin Tab) 81 mg QAM PO 10/26/16 09:00 11/25/16 08:59 10/26/16 10:21 81 MG Polyethylene (Miralax Powder Packet) 17 gm DAILY PRN PO 10/25/16 13:45 11/24/16 13:44 Amitriptyline HCl (Elavil Tab) 50 mg HS PO 10/25/16 21:00 11/24/16 20:59 10/25/16 20:45 50 MG Atorvastatin Calcium (Lipitor Tab) 40 mg DAILY PO 10/26/16 09:00 11/25/16 08:59 10/26/16 10:21 40 MG Budesonide/ Formoterol Fumarate (Symbicort 160/ 4.5 Inh) 2 puffs BID INH 10/25/16 21:00 11/24/16 20:59 10/26/16 07:43 2 PUFFS Clopidogrel Bisulfate (plAVix TAB) 75 mg QAM PO 10/26/16 09:00 11/25/16 08:59 10/26/16 10:21 75 MG Folic Acid (Folvite Tab) 1 mg QAM PO 10/26/16 09:00 11/25/16 08:59 10/26/16 10:22 1 MG Losartan Potassium (coZAAR TAB) 100 mg QAM PO 10/26/16 09:00 11/25/16 08:59 10/26/16 10:22 100 MG Metoprolol Tartrate (Lopressor Tab) 100 mg BID PO 10/25/16 21:00 11/24/16 20:59 10/26/16 10:21 100 MG Ondansetron HCl (Zofran Tab) 4 mg Q6 PRN PO 10/25/16 14:00 11/24/16 13:59 Oxycodone HCl 15 mg 15 mg Q4H PRN PO 10/25/16 14:00 11/08/16 13:59 10/26/16 12:26 15 MG Levofloxacin/Prmx (Levaquin / D5W/ Premixed D5W) 150 ml @ 100 mls/hr Q24H IV 10/26/16 13:00 11/01/16 12:59 10/26/16 12:26 100 MLS/HR Levalbuterol (Xopenex 0.63 Mg/ 3 Ml Neb) 0.63 mg Q6R INH 10/25/16 15:00 11/24/16 14:59 10/26/16 07:18 0.63 MG Ioversol (Optiray 320) 125 ml UD PRN IV 10/25/16 14:15 10/29/16 14:14 Miscellaneous (Iv Fluids Completed) 1 ea PRN PRN N/A 10/25/16 15:00 10/25/17 14:59 Fentanyl (Duragesic Patch) 25 mcg Q3D@1630 TD 10/25/16 16:30 11/08/16 16:29 10/25/16 16:36 25 MCG Miscellaneous (Fentanyl Patch Remove & Waste) 1 ea Q3D@1629 N/A 10/25/16 16:29 11/24/16 16:28 Miscellaneous Information (Check Fentanyl Patch Placement) 1 ea QS N/A 10/26/16 00:00 11/25/16 00:00 10/26/16 07:41 1 EA Raltegravir (Isentress Tab) 400 mg BID PO 10/25/16 21:00 11/24/16 20:59 10/26/16 10:22 400 MG Ritonavir (Norvir) 1 BID PO 10/25/16 21:00 11/24/16 20:59 10/26/16 10:23 1 Morphine Sulfate (MoRPHine SULFATE INJ) 3 mg Q3H PRN IV 10/25/16 22:15 11/08/16 22:14 10/26/16 07:43 3 MG Zolpidem Tartrate (Ambien Tab) 5 mg HS PRN PO 10/25/16 22:15 11/24/16 22:14 10/25/16 22:28 5 MG Objective Vital Signs Date Time Temp Pulse Resp B/P Pulse Ox O2 Delivery O2 Flow Rate FiO2 10/26/16 12:00 Room Air 10/26/16 11:55 37.1 95 20 132/85 98 Room Air 10/26/16 08:00 Room Air 10/26/16 07:50 36.5 79 18 127/92 97 Room Air 10/26/16 07:19 86 16 98 Room Air 10/26/16 04:02 36.6 91 18 157/94 97 Room Air 10/26/16 04:00 Room Air 10/26/16 02:10 103 16 97 Room Air 10/25/16 23:59 Room Air 10/25/16 23:16 36.8 105 18 122/69 98 Room Air 10/25/16 20:00 Room Air 10/25/16 19:57 115 16 95 Nasal Cannula 4.0 10/25/16 19:24 36.9 113 20 118/78 99 Room Air 10/25/16 15:55 119 16 97 Nasal Cannula 4.0 10/25/16 15:15 36.6 116 19 142/78 100 Nasal Cannula 2.0 10/25/16 14:32 128 20 140/99 99 Nasal Cannula 2.0 10/25/16 13:53 117 20 105/82 99 Nasal Cannula 2.0 Physical Exam General Appearance: no apparent distress Respiratory/Chest: lungs clear, normal breath sounds, no respiratory distress, no accessory muscle use Cardiovascular: regular rate, rhythm (tachycardia resolved), no edema, no murmur Abdomen: normal bowel sounds, non tender, soft Extremities: normal inspection, no pedal edema Neurologic/Psychiatric: no motor/sensory deficits, alert, normal mood/affect Laboratory Results Last 24 Hours Test 10/25/16 15:30 10/25/16 18:06 10/25/16 20:45 10/25/16 21:28 Lactic Acid Level 5.4 mmol/L 4.5 mmol/L Total Creatine Kinase U/L 59 U/L Creatine Kinase MB 1.5 ng/ml 1.6 ng/ml Creatine Kinase MB Ratio 2.7 Troponin I < 0.015 ng/ml Test 10/26/16 04:00 10/26/16 04:10 10/26/16 12:30 Lactic Acid Level 2.5 mmol/L 3.8 mmol/L White Blood Count 14.15 K/uL Red Blood Count 4.68 M/uL Hemoglobin 13.5 g/dL Hematocrit 40.4 % Mean Corpuscular Volume 86.3 fL Mean Corpuscular Hemoglobin 28.8 pg Mean Corpuscular Hemoglobin Concent 33.4 g/dl Platelet Count 254 K/uL Mean Platelet Volume 8.8 fL Neutrophils (%) (Auto) 64.6 % Lymphocytes (%) (Auto) 25.6 % Monocytes (%) (Auto) 8.3 % Eosinophils (%) (Auto) 0.8 % Basophils (%) (Auto) 0.4 % Neutrophils # (Auto) 9.14 K/uL Lymphocytes # (Auto) 3.62 K/uL Monocytes # (Auto) 1.18 K/uL Eosinophils # (Auto) 0.11 K/uL Basophils # (Auto) 0.06 K/uL RDW Standard Deviation 44.2 fL RDW Coefficient of Variation 14.2 % Immature Granulocyte % (Auto) 0.3 % Immature Granulocyte # (Auto) 0.04 K/uL Sodium Level 140 mmol/L Potassium Level 4.3 mmol/L Chloride Level 104 mmol/L Carbon Dioxide Level 31 mmol/L Anion Gap 5.0 mmol/L Blood Urea Nitrogen 14 mg/dl Creatinine 1.00 mg/dl Est Creatinine Clear Calc Drug Dose 94.9 ml/min Estimated GFR () 99.8 Estimated GFR (Non- 86.2 BUN/Creatinine Ratio 14.0 Random Glucose 134 mg/dl Calcium Level 8.7 mg/dl Phosphorus Level 3.4 mg/dl Magnesium Level 2.2 mg/dl Total Bilirubin 0.2 mg/dl Aspartate Amino Transf (AST/SGOT) 7 U/L Alanine Aminotransferase (ALT/SGPT) 27 U/L Alkaline Phosphatase 81 U/L Total Creatine Kinase 53 U/L Creatine Kinase MB 1.1 ng/ml Creatine Kinase MB Ratio 2.1 Troponin I < 0.015 ng/ml Total Protein 6.3 gm/dl Albumin 3.4 gm/dl Globulin 2.9 gm/dl Albumin/Globulin Ratio 1.2 Lipase 147 U/L Thyroid Stimulating Hormone (TSH) 0.873 uIu/ml Assessment and Plan This is a 51 year old male with a PMH of HIV with peripheral neuropathy, R internal carotid artery stenosis with multiple and recurrent TIAs, hx. of CVA, possible hx. of VA as per patient, hx. of migraines, chronic pain on long-term narcotics, depression/anxiety, anal dysplasia s/p polyp removal, COPD and current tobacco use, HTN SIRS criteria in the setting of Immunodeficiency with HIV 10/26 WBC improving from 19k --> 14k will continue Levaquin for now, blood cultures pending x2 lactic acid with slight improvement continue IVFs CD4, HIV RNA pending will await ID input for further recommendations 10/25 patient states he has been doing well with his HIV medications and follows with outpatient ID regarding CD4 count He was here secondary to chest pressure/pain on 10/23 - presents with shortness of breath/chest pain found to have leukocytosis, 19k; lactic acidosis > 3; tachycardia CXR negative, UA negative blood culture, urine culture pending given Levaquin + Vancomycin in the ER as well as fluids will check a CT chest to r/o PE will check CD4 count, HIV RNA, RPR, Hep C RNA; will repeat lactic acid multiple antibiotic allergies noted; will continue Levaquin and give IVFs ID consultation for further input Chest Pain r/o ACS 10/26 cardiac stress test performed and negative noncardiac chest tightness 10/25 patient presented with chest pain on 10/23 cardiac enzymes, EKG, echo looked fine at that time outpatient stress ordered and was discharged due to chest tightness and tachycardia, will trend enzymes again, repeat EKG in AM cardiology consultation for possible stress in AM? COPD Current Tobacco Use 10/26 will prescribe nebulizer as an outpatient 10/25 does not seem to be in an exacerbation; no wheezing appreciated possible bronchitis? will add Xopenex (secondary to tachycardia) O2 as needed may need a prednisone taper Peripheral Neuropathy Chronic Pain and on long-term narcotics will give low dose morphine for now follows with outpatient pain management, and should follow-up with them if pain is not controlled Recurrent TIAs Complete Occlusion of R carotid continue Plavix + statin EEG during previous admission was negative Anal Dysplasia to have f/u colonoscopy as outpatient HTN blood pressure stable hold Chlorthalidone, will be giving IVFs DVT ppx Lovenox FULL CODE
--- NOTE | 2016-10-26 14:58 | Medical Consult ---
Consultation Date of Consultation: October 26, 2016. Attending Physician: Yumiko Pritchard DO Reason for Consultation: Leukocytosis, unk cause, HIV History of Present Illness Patient is a 51 yo male with history of HIV infection, peripheral neuropathy, TIA, and CVA who presented to the ED for the second time in the past week for concerns of chest pressure/tightness and worsening SOB. The patient has been on Prezista, Isentress, and Norvir for approximately 2-3 years and was treated with a different regimen prior to that as well. He states that his most recent labs from [facility] were "messed up", so he's not sure what his most recent CD4 count of viral load were, but he states they have been "good" for a long time. During his last admission, the patient had cardiac enzymes x 3 which were unremarkable, EKG showed no acute changes, and TTE was negative. He was ultimately cleared and discharged home. He returned with similar/worsening pains. Plan current admission, the patient reports of count was noted to be 19.20. His lactic acid was 5.4 appear he did have a repeat chest x-ray which showed no acute cardiopulmonary findings. He had a CTA of his chest/thorax which showed no acute intra thoracic findings and no pulmonary emboli. He was placed empirically on IV vancomycin and Levaquin. His urine culture is showing no growth. His blood cultures are currently pending. The patient states that since admission, he is feeling much improved. He has felt much better since receiving breathing treatments. He states he does have history of COPD with a chronic inhaler home. He shortness of breath and chest tightness has resolved. He otherwise denies fever, sweats, chills, nausea, vomiting, diarrhea, cough, abdominal pain, urinary symptoms, or peripheral edema. Repeat HIV viral load and CD4 pending. Past Medical/Surgical History Medical Problems: (1) Anterior chest wall pain Status: Acute (2) Headache Status: Acute (3) Human immunodeficiency virus infection Status: Chronic (4) Involuntary movements Status: Acute (5) Left sided chest pain Status: Acute (6) Paresthesia Status: Acute (7) Precordial chest pain Status: Acute (8) Right leg weakness Status: Acute (9) Syncope Status: Acute (10) TIA (transient ischemic attack) Status: Acute Family History Diabetes mellitus FATHER MOTHER FH: cancer FATHER (lung CA) Hypertension FATHER Noncontributory Social History Smoking Status: Current Every Day Smoker Drug Use: none Marital Status: Housing Status: lives with family Occupation Status: unemployed Allergies Coded Allergies: Penicillins (Verified Allergy, Severe, ANAPHYLAXIS, 10/25/16) Azithromycin (Verified Allergy, Intermediate, RASH AND SKIN PEELING, ) Niacin (Verified Allergy, Intermediate, RASH, 10/25/16) Sulfa Antibiotics (Verified Allergy, Unknown, "ITCHY RASH", 10/25/16) Tramadol (Verified Allergy, Unknown, RASH, 10/25/16) Gabapentin (Verified Adverse Reaction, Intermediate, hallucinations, ) Shellfish (Verified Adverse Reaction, Intermediate, gi symptoms, 10/25/16) Topiramate (Verified Adverse Reaction, Intermediate, NAUSEA, 10/25/16) Meloxicam (Verified Adverse Reaction, Unknown, GI SYMPTOMS, 10/25/16) Morphine (Verified Adverse Reaction, Unknown, SHORTNESS OF BREATH-PO MORPHINE, 10/25/16) Home Medications Reported Home Medications Medications Dose Route/Sig Max Daily Dose Days Date Category Dose Instructions Lipitor (Atorvastatin) 40 Mg Tab 40 Mg PO DAILY 30 10/23/16 Rx Fentanyl 25 Mcg Tdsy 25 Mcg TD Q72HRS 10/22/16 Reported DUE TO CHANGE 10/23/16 Ventolin Hfa (Albuterol) 200 Puffs/53839 Mcg Aers 2 Puffs INH Q6H PRN 10/22/16 Reported Folic Acid 1 Mg Tab 1 Mg PO QAM 03/24/16 Reported Zofran (Ondansetron HCl) 4 Mg Tab 4 Mg PO Q6 PRN 03/24/16 Reported Furosemide 20 Mg Tab 20 Mg PO DAILY PRN 03/24/16 Reported Cozaar (Losartan Potassium) 100 Mg Tab 100 Mg PO QAM 03/24/16 Reported Metoprolol Tartrate 100 Mg Tab 100 Mg PO BID 02/22/16 Reported Oxycodone Hcl 15 Mg Tab 15 Mg PO Q4-6HRS PRN 10/01/15 Reported Aspirin Ec (Aspirin) 81 Mg Tab 81 Mg PO QAM 06/21/15 Reported Plavix (Clopidogrel Bisulfate) 75 Mg Tab 75 Mg PO QAM 06/21/15 Reported Amitriptyline Hcl 50 Mg Tab 50 Mg PO HS 04/01/15 Reported PT MAY TAKE 50MG IN AM IF NEEDED. Prezista (Darunavir Ethanolate) 600 Mg Tab 600 Mg PO BID 03/05/15 Reported TAKE THIS MEDICATION WITH FOOD [place] (Chlorthalidone) 25 Mg Tab 25 Mg PO QAM 03/05/15 Reported Isentress (Raltegravir Potassium) 400 Mg Tab 400 Mg PO BID 03/05/15 Reported Norvir (Ritonavir) 100 Mg Tab 100 Mg PO BID 03/05/15 Reported Symbicort 160/4.5 Inhaler (Budesonide/Formoterol Fumarate) 120 Puffs/ Aero 2 Puffs INH BID 03/05/15 Reported Current Inpatient Medications Current Inpatient Medications Medications (Trade) Dose Ordered Sig/Josh Route Start Time Stop Time Status Last Admin Dose Admin Enoxaparin Sodium 40 mg 40 mg Q24H SC 10/25/16 16:00 11/24/16 15:59 10/25/16 16:40 40 MG Sodium Chloride (Nss 1000ml) 1,000 ml @ 125 mls/hr Q8H IV 10/25/16 13:32 11/24/16 13:31 10/26/16 07:41 125 MLS/HR Acetaminophen (Tylenol Tab) 650 mg Q4H PRN PO 10/25/16 13:45 11/24/16 13:44 Al Hydrox/Mg Hydrox/Simethicone (Maalox Max Susp) 15 ml Q4H PRN PO 10/25/16 13:45 11/24/16 13:44 Magnesium Hydroxide (Milk Of Magnesia Susp) 30 ml Q12H PRN PO 10/25/16 13:45 11/24/16 13:44 Ondansetron HCl (Zofran Inj) 4 mg Q6H PRN IV 10/25/16 13:45 11/24/16 13:44 Nitroglycerin (Nitrostat Tab) 0.4 mg UD PRN SL 10/25/16 13:45 11/24/16 13:44 Aspirin (Ecotrin Tab) 81 mg QAM PO 10/26/16 09:00 11/25/16 08:59 10/26/16 10:21 81 MG Polyethylene (Miralax Powder Packet) 17 gm DAILY PRN PO 10/25/16 13:45 11/24/16 13:44 Amitriptyline HCl (Elavil Tab) 50 mg HS PO 10/25/16 21:00 11/24/16 20:59 10/25/16 20:45 50 MG Atorvastatin Calcium (Lipitor Tab) 40 mg DAILY PO 10/26/16 09:00 11/25/16 08:59 10/26/16 10:21 40 MG Budesonide/ Formoterol Fumarate (Symbicort 160/ 4.5 Inh) 2 puffs BID INH 10/25/16 21:00 11/24/16 20:59 10/26/16 07:43 2 PUFFS Clopidogrel Bisulfate (plAVix TAB) 75 mg QAM PO 10/26/16 09:00 11/25/16 08:59 10/26/16 10:21 75 MG Folic Acid (Folvite Tab) 1 mg QAM PO 10/26/16 09:00 11/25/16 08:59 10/26/16 10:22 1 MG Losartan Potassium (coZAAR TAB) 100 mg QAM PO 10/26/16 09:00 11/25/16 08:59 10/26/16 10:22 100 MG Metoprolol Tartrate (Lopressor Tab) 100 mg BID PO 10/25/16 21:00 11/24/16 20:59 10/26/16 10:21 100 MG Ondansetron HCl (Zofran Tab) 4 mg Q6 PRN PO 10/25/16 14:00 11/24/16 13:59 Oxycodone HCl 15 mg 15 mg Q4H PRN PO 10/25/16 14:00 11/08/16 13:59 10/26/16 12:26 15 MG Levofloxacin/Prmx (Levaquin / D5W/ Premixed D5W) 150 ml @ 100 mls/hr Q24H IV 10/26/16 13:00 11/01/16 12:59 10/26/16 12:26 100 MLS/HR Levalbuterol (Xopenex 0.63 Mg/ 3 Ml Neb) 0.63 mg Q6R INH 10/25/16 15:00 11/24/16 14:59 10/26/16 14:23 0.63 MG Ioversol (Optiray 320) 125 ml UD PRN IV 10/25/16 14:15 10/29/16 14:14 Miscellaneous (Iv Fluids Completed) 1 ea PRN PRN N/A 10/25/16 15:00 10/25/17 14:59 Fentanyl (Duragesic Patch) 25 mcg Q3D@1630 TD 10/25/16 16:30 11/08/16 16:29 10/25/16 16:36 25 MCG Miscellaneous (Fentanyl Patch Remove & Waste) 1 ea Q3D@1629 N/A 10/25/16 16:29 11/24/16 16:28 Miscellaneous Information (Check Fentanyl Patch Placement) 1 ea QS N/A 10/26/16 00:00 11/25/16 00:00 10/26/16 07:41 1 EA Raltegravir (Isentress Tab) 400 mg BID PO 10/25/16 21:00 11/24/16 20:59 10/26/16 10:22 400 MG Ritonavir (Norvir) 1 BID PO 10/25/16 21:00 11/24/16 20:59 10/26/16 10:23 1 Zolpidem Tartrate (Ambien Tab) 5 mg HS PRN PO 10/25/16 22:15 11/24/16 22:14 10/25/16 22:28 5 MG Review of Systems Constitutional: No chills, No fever Eyes: No worsening of vision ENT: No hearing loss Respiratory: + shortness of breath (now improved) Cardiovascular: + chest pain (tightness on admission, now improved) Abdomen: No diarrhea, No nausea, No pain, No vomiting Genitourinary - Male: No dysuria, No hematuria Neurologic: + numbness/tingling (bilateral lower extremities) Integumentary: No itch, No new/changing skin lesions, No rash Physical Exam Date Time Temp Pulse Resp B/P Pulse Ox O2 Delivery O2 Flow Rate FiO2 10/26/16 14:23 72 16 93 Room Air 10/26/16 12:00 Room Air 10/26/16 11:55 37.1 95 20 132/85 98 Room Air 10/26/16 08:00 Room Air 10/26/16 07:50 36.5 79 18 127/92 97 Room Air 10/26/16 07:19 86 16 98 Room Air 10/26/16 04:02 36.6 91 18 157/94 97 Room Air 10/26/16 04:00 Room Air 10/26/16 02:10 103 16 97 Room Air 10/25/16 23:59 Room Air 10/25/16 23:16 36.8 105 18 122/69 98 Room Air 10/25/16 20:00 Room Air 10/25/16 19:57 115 16 95 Nasal Cannula 4.0 10/25/16 19:24 36.9 113 20 118/78 99 Room Air 10/25/16 15:55 119 16 97 Nasal Cannula 4.0 10/25/16 15:15 36.6 116 19 142/78 100 Nasal Cannula 2.0 General Appearance: WD/WN, no apparent distress Head: normocephalic, atraumatic Eyes: normal inspection, sclerae normal ENT: hearing grossly normal Neck: supple, trachea midline Respiratory/Chest: chest non-tender, lungs clear, normal breath sounds, no respiratory distress, no accessory muscle use Cardiovascular: regular rate, rhythm, no murmur Abdomen/GI: normal bowel sounds, non tender, soft Back: normal inspection Extremities/Musculoskelatal: normal inspection, no calf tenderness Neurologic/Psych: alert, normal mood/affect Skin: normal color, warm/dry, no rash Laboratory Results CT ANGIOGRAPHY OF THE CHEST, PULMONARY EMBOLUS PROTOCOL CLINICAL HISTORY: Chest pain, shortness of breath and chest tightness. COMPARISON STUDY: Chest radiograph October 22, 2016. TECHNIQUE: Following IV administration of 111 mL of Optiray-320, helical axial images of the chest were obtained utilizing the pulmonary embolus protocol. Maximal intensity projections and sagittal and coronal reformats were viewed on an independent 3D workstation. IV contrast was administered without complication. CT DOSE: 421.02 mGy.cm FINDINGS: No pulmonary emboli are identified. There is no evidence of thoracic aortic dissection. The size pf the heart is normal. There is no pericardial effusion. There is no thoracic lymphadenopathy. There are no areas of consolidation. The bony thorax is unremarkable. Fatty infiltration of the liver is noted. IMPRESSION: 1. No pulmonary emboli identified. 2. No acute intrathoracic findings. Item Value Date Time Urine Culture - Preliminary Resulted 10/25/16 1110 Urine , Clean Catch NO GROWTH - LESS THAN 1,000 COLONIES/... Blood Culture Received 10/25/16 1100 Blood Pending Blood Culture Received 10/25/16 1040 Blood Pending Last 24 Hours Test 10/25/16 15:30 10/25/16 18:06 10/25/16 20:45 10/25/16 21:28 Lactic Acid Level 5.4 mmol/L 4.5 mmol/L Total Creatine Kinase U/L 59 U/L Creatine Kinase MB 1.5 ng/ml 1.6 ng/ml Creatine Kinase MB Ratio 2.7 Troponin I < 0.015 ng/ml Test 10/26/16 04:00 10/26/16 04:10 10/26/16 12:30 Lactic Acid Level 2.5 mmol/L 3.8 mmol/L White Blood Count 14.15 K/uL Red Blood Count 4.68 M/uL Hemoglobin 13.5 g/dL Hematocrit 40.4 % Mean Corpuscular Volume 86.3 fL Mean Corpuscular Hemoglobin 28.8 pg Mean Corpuscular Hemoglobin Concent 33.4 g/dl Platelet Count 254 K/uL Mean Platelet Volume 8.8 fL Neutrophils (%) (Auto) 64.6 % Lymphocytes (%) (Auto) 25.6 % Monocytes (%) (Auto) 8.3 % Eosinophils (%) (Auto) 0.8 % Basophils (%) (Auto) 0.4 % Neutrophils # (Auto) 9.14 K/uL Lymphocytes # (Auto) 3.62 K/uL Monocytes # (Auto) 1.18 K/uL Eosinophils # (Auto) 0.11 K/uL Basophils # (Auto) 0.06 K/uL RDW Standard Deviation 44.2 fL RDW Coefficient of Variation 14.2 % Immature Granulocyte % (Auto) 0.3 % Immature Granulocyte # (Auto) 0.04 K/uL Sodium Level 140 mmol/L Potassium Level 4.3 mmol/L Chloride Level 104 mmol/L Carbon Dioxide Level 31 mmol/L Anion Gap 5.0 mmol/L Blood Urea Nitrogen 14 mg/dl Creatinine 1.00 mg/dl Est Creatinine Clear Calc Drug Dose 94.9 ml/min Estimated GFR () 99.8 Estimated GFR (Non- 86.2 BUN/Creatinine Ratio 14.0 Random Glucose 134 mg/dl Calcium Level 8.7 mg/dl Phosphorus Level 3.4 mg/dl Magnesium Level 2.2 mg/dl Total Bilirubin 0.2 mg/dl Aspartate Amino Transf (AST/SGOT) 7 U/L Alanine Aminotransferase (ALT/SGPT) 27 U/L Alkaline Phosphatase 81 U/L Total Creatine Kinase 53 U/L Creatine Kinase MB 1.1 ng/ml Creatine Kinase MB Ratio 2.1 Troponin I < 0.015 ng/ml Total Protein 6.3 gm/dl Albumin 3.4 gm/dl Globulin 2.9 gm/dl Albumin/Globulin Ratio 1.2 Lipase 147 U/L Thyroid Stimulating Hormone (TSH) 0.873 uIu/ml Assessment & Plan Patient with precordial chest pain/pressure and SOB with leukocytosis on admission in the setting of long-standing, treated HIV infection. Blood cultures are currently pending, but he is improving on IV Vancomycin and Levaquin along with breathing treatments. CTA of the chest was clear, but feel that this patient may have early pulmonary infection with his chest pains, sputum production, and improvement on abx therapy and breathing treatment. Therefore, feel that he likely could be discharged on PO Levaquin to complete 7 days. He can follow up with Dr. Blount in [place] (as requested by the patient) in regards to his HIV as well. Thanks see dictated consult, agree with assessment.
[2016-10-26] MEDS: ENOXAPARIN 40 MG/0.4 ML SYR SC SCH (15:25)
[2016-10-26] MEDS: ZOLPIDEM TARTRATE 5 MG TAB PO PRN (20:59)
[2016-10-26] MEDS: AMITRIPTYLINE HCL 25 MG TAB PO SCH (20:59)
[2016-10-27] MEDS: CHECK FENTANYL PATCH PLACEMENT SCH ×2 (00:02→08:18)
[2016-10-27 00:05] VITALS: BP 115/69; PULSE 74; TEMP 36.9; O2SAT 98
[2016-10-27] MEDS: SODIUM CHLORIDE 0.9% 1000ML 1,000 ML IV SCH (02:16)
[2016-10-27 03:54] LABS: HEMATOCRIT 38.1 % (42-52); MEAN CELL VOLUME 86.8 fL (80-100); MEAN CORPUSCULAR HEMOGLOBIN 28.2 pg (25-34); MEAN CORPUSCULAR HGB CONC 32.5 g/dl (32-36); MEAN PLATELET VOLUME 8.6 fL (7.4-10.4); PLATELET COUNT 235 K/uL (130-400); RED BLOOD COUNT 4.39 M/uL (4.7-6.1); WHITE BLOOD COUNT 9.78 K/uL (4.8-10.8)
[2016-10-27 04:00] VITALS: BP 109/68; PULSE 65; TEMP 36.6; O2SAT 98
[2016-10-27] MEDS: OXYCODONE HCL IR 5 MG TAB (IMMEDIATE RELEASE) PO PRN ×2 (04:07→08:22)
[2016-10-27 04:15] LABS: BUN/CREATININE RATIO 16.6 (10-20); CALCIUM 8.8 mg/dl (8.5-10.1); POTASSIUM 4.1 mmol/L (3.5-5.1)
[2016-10-27 07:24] VITALS: PULSE 69; O2SAT 99
[2016-10-27] MEDS: LEVALBUTEROL 0.63MG/3 ML NEB INH SCH (07:24)
[2016-10-27 07:41] VITALS: BP 160/87; PULSE 73; TEMP 36.3; O2SAT 99
[2016-10-27] MEDS: LOSARTAN POTASSIUM 50 MG TAB PO SCH (08:19)
[2016-10-27] MEDS: CLOPIDOGREL BISULFATE 75 MG TAB PO SCH (08:19)
[2016-10-27] MEDS: ASPIRIN 81 MG ECTAB PO SCH (08:19)
[2016-10-27] MEDS: ATORVASTATIN 20 MG TAB PO SCH (08:19)
[2016-10-27] MEDS: METOPROLOL TARTRATE 100 MG TAB PO SCH (08:20)
[2016-10-27] MEDS: BUDESONIDE/FORMOTEROL FUMARATE 160/4.5 60 PUFFS/INHALER INH SCH (08:20)
[2016-10-27] MEDS: RITONAVIR 100 MG TAB PO SCH (09:05)
[2016-10-27] MEDS: RALTEGRAVIR POTASSIUM TAB 400 MG TAB PO SCH (09:05)
[2016-10-27] MEDS: DARUNAVIR ETHANOLATE 600 MG TAB PO SCH (09:05)
--- NOTE | 2016-10-27 10:31 | Progress Note ---
Subjective Date of Service: October 27, 2016. Subjective Pt evaluation today including: conversation w/ patient, physical exam, lab review, review of studies, review of inpatient medication list Saw/examined the patient in room 243-1 He's doing well, denies chest pain/shortness of breath He feels better and very anxious to go home Problem List Medical Problems: (1) Anterior chest wall pain Status: Acute (2) Headache Status: Acute (3) Human immunodeficiency virus infection Status: Chronic (4) Involuntary movements Status: Acute (5) Left sided chest pain Status: Acute (6) Paresthesia Status: Acute (7) Precordial chest pain Status: Acute (8) Right leg weakness Status: Acute (9) Syncope Status: Acute (10) TIA (transient ischemic attack) Status: Acute Review of Systems Constitutional: + weakness, No chills, No fever Respiratory: + shortness of breath (improving), No cough, No sputum Cardiac: No chest pain, No edema, No palpitations Abdomen: No diarrhea, No nausea, No pain, No vomiting Heme: No abnormal bleeding/bruising Medications Current Inpatient Medications Medications (Trade) Dose Ordered Sig/Josh Route Start Time Stop Time Status Last Admin Dose Admin Enoxaparin Sodium 40 mg 40 mg Q24H SC 10/25/16 16:00 11/24/16 15:59 10/26/16 15:25 40 MG Sodium Chloride (Nss 1000ml) 1,000 ml @ 125 mls/hr Q8H IV 10/25/16 13:32 11/24/16 13:31 10/27/16 02:16 125 MLS/HR Acetaminophen (Tylenol Tab) 650 mg Q4H PRN PO 10/25/16 13:45 11/24/16 13:44 Al Hydrox/Mg Hydrox/Simethicone (Maalox Max Susp) 15 ml Q4H PRN PO 10/25/16 13:45 11/24/16 13:44 Magnesium Hydroxide (Milk Of Magnesia Susp) 30 ml Q12H PRN PO 10/25/16 13:45 11/24/16 13:44 Ondansetron HCl (Zofran Inj) 4 mg Q6H PRN IV 10/25/16 13:45 11/24/16 13:44 Nitroglycerin (Nitrostat Tab) 0.4 mg UD PRN SL 10/25/16 13:45 11/24/16 13:44 Aspirin (Ecotrin Tab) 81 mg QAM PO 10/26/16 09:00 11/25/16 08:59 10/27/16 08:19 81 MG Polyethylene (Miralax Powder Packet) 17 gm DAILY PRN PO 10/25/16 13:45 11/24/16 13:44 Amitriptyline HCl (Elavil Tab) 50 mg HS PO 10/25/16 21:00 11/24/16 20:59 10/26/16 20:59 50 MG Atorvastatin Calcium (Lipitor Tab) 40 mg DAILY PO 10/26/16 09:00 11/25/16 08:59 10/27/16 08:19 40 MG Budesonide/ Formoterol Fumarate (Symbicort 160/ 4.5 Inh) 2 puffs BID INH 10/25/16 21:00 11/24/16 20:59 10/27/16 08:20 2 PUFFS Clopidogrel Bisulfate (plAVix TAB) 75 mg QAM PO 10/26/16 09:00 11/25/16 08:59 10/27/16 08:19 75 MG Folic Acid (Folvite Tab) 1 mg QAM PO 10/26/16 09:00 11/25/16 08:59 10/27/16 08:19 1 MG Losartan Potassium (coZAAR TAB) 100 mg QAM PO 10/26/16 09:00 11/25/16 08:59 10/27/16 08:19 100 MG Metoprolol Tartrate (Lopressor Tab) 100 mg BID PO 10/25/16 21:00 11/24/16 20:59 10/27/16 08:20 100 MG Ondansetron HCl (Zofran Tab) 4 mg Q6 PRN PO 10/25/16 14:00 11/24/16 13:59 Oxycodone HCl 15 mg 15 mg Q4H PRN PO 10/25/16 14:00 11/08/16 13:59 10/27/16 08:22 15 MG Levofloxacin/Prmx (Levaquin / D5W/ Premixed D5W) 150 ml @ 100 mls/hr Q24H IV 10/26/16 13:00 11/01/16 12:59 10/26/16 12:26 100 MLS/HR Levalbuterol (Xopenex 0.63 Mg/ 3 Ml Neb) 0.63 mg Q6R INH 10/25/16 15:00 11/24/16 14:59 10/27/16 07:24 0.63 MG Ioversol (Optiray 320) 125 ml UD PRN IV 10/25/16 14:15 10/29/16 14:14 Miscellaneous (Iv Fluids Completed) 1 ea PRN PRN N/A 10/25/16 15:00 10/25/17 14:59 Fentanyl (Duragesic Patch) 25 mcg Q3D@1630 TD 10/25/16 16:30 11/08/16 16:29 10/25/16 16:36 25 MCG Miscellaneous (Fentanyl Patch Remove & Waste) 1 ea Q3D@1629 N/A 10/25/16 16:29 11/24/16 16:28 Miscellaneous Information (Check Fentanyl Patch Placement) 1 ea QS N/A 10/26/16 00:00 11/25/16 00:00 10/27/16 08:18 1 EA Raltegravir (Isentress Tab) 400 mg BID PO 10/25/16 21:00 11/24/16 20:59 10/27/16 09:05 400 MG Ritonavir (Norvir) 1 BID PO 10/25/16 21:00 11/24/16 20:59 10/27/16 09:05 1 Zolpidem Tartrate (Ambien Tab) 5 mg HS PRN PO 10/25/16 22:15 11/24/16 22:14 10/26/16 20:59 5 MG Objective Vital Signs Date Time Temp Pulse Resp B/P Pulse Ox O2 Delivery O2 Flow Rate FiO2 10/27/16 08:00 Room Air 10/27/16 07:41 36.3 73 16 160/87 99 Room Air 10/27/16 07:24 69 16 99 Room Air 10/27/16 04:00 Room Air 10/27/16 04:00 36.6 65 16 109/68 98 Room Air 10/27/16 00:05 Room Air 10/27/16 00:05 36.9 74 16 115/69 98 Room Air 10/26/16 20:14 70 16 97 Room Air 10/26/16 20:00 Room Air 10/26/16 19:43 36.9 79 18 109/73 96 Room Air 10/26/16 16:00 94 Room Air 10/26/16 15:38 36.9 79 18 122/82 94 Room Air 10/26/16 14:23 72 16 93 Room Air 10/26/16 12:00 Room Air 10/26/16 11:55 37.1 95 20 132/85 98 Room Air Physical Exam General Appearance: no apparent distress Respiratory/Chest: chest non-tender, lungs clear, normal breath sounds, no respiratory distress, no accessory muscle use Cardiovascular: regular rate, rhythm, no edema, no murmur Abdomen: normal bowel sounds, non tender, soft Extremities: normal inspection, no pedal edema Laboratory Results Last 24 Hours Test 10/26/16 12:30 10/26/16 16:00 10/26/16 20:32 10/26/16 23:39 Lactic Acid Level 3.8 mmol/L 2.2 mmol/L 1.7 mmol/L 1.8 mmol/L Test 10/27/16 03:48 10/27/16 08:05 White Blood Count 9.78 K/uL Red Blood Count 4.39 M/uL Hemoglobin 12.4 g/dL Hematocrit 38.1 % Mean Corpuscular Volume 86.8 fL Mean Corpuscular Hemoglobin 28.2 pg Mean Corpuscular Hemoglobin Concent 32.5 g/dl RDW Standard Deviation 45.4 fL RDW Coefficient of Variation 14.4 % Platelet Count 235 K/uL Mean Platelet Volume 8.6 fL Sodium Level 141 mmol/L Potassium Level 4.1 mmol/L Chloride Level 107 mmol/L Carbon Dioxide Level 28 mmol/L Anion Gap 6.0 mmol/L Blood Urea Nitrogen 17 mg/dl Creatinine 1.00 mg/dl Est Creatinine Clear Calc Drug Dose 94.9 ml/min Estimated GFR () 99.8 Estimated GFR (Non- 86.2 BUN/Creatinine Ratio 16.6 Random Glucose 141 mg/dl Lactic Acid Level 2.1 mmol/L 2.5 mmol/L Calcium Level 8.8 mg/dl Assessment and Plan This is a 51 year old male with a PMH of HIV with peripheral neuropathy, R internal carotid artery stenosis with multiple and recurrent TIAs, hx. of CVA, possible hx. of [place] as per patient, hx. of migraines, chronic pain on long-term narcotics, depression/anxiety, anal dysplasia s/p polyp removal, COPD and current tobacco use, HTN SIRS criteria in the setting of Immunodeficiency with HIV 10/27 possibly related to a pulmonary source as per ID we will discharge on Levaquin x7 days I will discharge him with a nebulizer machine and DuoNeb solution for the nebulizer 10/26 WBC improving from 19k --> 14k will continue Levaquin for now, blood cultures pending x2 lactic acid with slight improvement continue IVFs CD4, HIV RNA pending will await ID input for further recommendations 10/25 patient states he has been doing well with his HIV medications and follows with outpatient ID regarding CD4 count He was here secondary to chest pressure/pain on 10/23 - presents with shortness of breath/chest pain found to have leukocytosis, 19k; lactic acidosis > 3; tachycardia CXR negative, UA negative blood culture, urine culture pending given Levaquin + Vancomycin in the ER as well as fluids will check a CT chest to r/o PE will check CD4 count, HIV RNA, RPR, Hep C RNA; will repeat lactic acid multiple antibiotic allergies noted; will continue Levaquin and give IVFs ID consultation for further input Chest Pain r/o ACS 10/26 cardiac stress test performed and negative noncardiac chest tightness 10/25 patient presented with chest pain on 10/23 cardiac enzymes, EKG, echo looked fine at that time outpatient stress ordered and was discharged due to chest tightness and tachycardia, will trend enzymes again, repeat EKG in AM cardiology consultation for possible stress in AM? COPD Current Tobacco Use 10/26 will prescribe nebulizer as an outpatient 10/25 does not seem to be in an exacerbation; no wheezing appreciated possible bronchitis? will add Xopenex (secondary to tachycardia) O2 as needed may need a prednisone taper Peripheral Neuropathy Chronic Pain and on long-term narcotics will give low dose morphine for now follows with outpatient pain management, and should follow-up with them if pain is not controlled Recurrent TIAs Complete Occlusion of R carotid continue Plavix + statin EEG during previous admission was negative Anal Dysplasia to have f/u colonoscopy as outpatient HTN blood pressure stable hold Chlorthalidone, will be giving IVFs DVT ppx Lovenox FULL CODE
[2016-10-27] MEDS ORDERED: OXYC1CAP5 PO (10:37)
[2016-10-27] MEDS ORDERED: IPRASOL4 INH (10:37)
[2016-10-27] MEDS ORDERED: LEVO-459 PO (10:37)
[2016-10-27] MEDS ORDERED: NEBMAC (10:37)
--- NOTE | 2016-10-27 10:41 | Discharge Instructions ---
Discharge Instructions Date of Service October 27, 2016. Admission Reason for Admission: Leukocytosis,Precordial Chest Pain Discharge Discharge Diagnosis / Problem: Leukocytosis, possibly pulmonary source; Chest Pain, likely due to SOB Discharge Goals Goal(s): Decrease discomfort, Improve function, Diagnostic testing, Therapeutic intervention Activity Recommendations Activity Limitations: resume your previous activity . Instructions / Follow-Up Instructions / Follow-Up Please follow-up with Dr. Burdick on October 29, 2016 @ 4:00PM You will be discharged on Levaquin for 7 days for a presumed pulmonary infection You will be given a nebulizer machine with medications to use with it - only use this as needed - follow-up with an outpatient plant safety engineer regarding your COPD Primary care and infectious disease should check on the CD4 count and HIV viral load Current Hospital Diet Patient's current hospital diet: AHA Diet (Heart Healthy) Discharge Diet Recommended Diet: AHA Diet (Heart Healthy) Pending Studies Studies pending at discharge: no Laboratory Results Lipid Panel Test 10/23/16 09:19 Range/Units Triglycerides Level 281 H 0-150 mg/dl Cholesterol Level 180 0-200 mg/dl HDL Cholesterol 39 mg/dl Cholesterol/HDL Ratio 4.6 LDL Cholesterol, Calculated 85 mg/dl Medical Emergencies . Who to Call and When: Medical Emergencies: If at any time you feel your situation is an emergency, please call 911 immediately. . Non-Emergent Contact Non-Emergency issues call your: Primary Care Provider, Specialist (HIV specialist) . . "Provider Documentation" section prepared by Yumiko Pritchard. . VTE Core Measure Inpt VTE Proph given/why not?: Enoxaparin (Lovenox)SQ [place] Drug Monitoring Program Search Results: patient reviewed within database, see additional documentation Drug Monitoring Findings: Patient was last prescribed oxycodone 5mg tablets; 30 day supply on 09/30 - states he took extra and ran out. I will only prescribe #6 pills until he sees his primary care physician on 10/29
--- NOTE | 2016-10-27 10:45 | Discharge Summary ---
Discharge Summary Date of Service October 27, 2016. Discharge Summary Admission Date: October 25, 2016 at 14:13 Discharge Date: October 27, 2016 Discharge Disposition: Home Principal Diagnosis: Leukocytosis, possible pulmonary infection Chest tightness - unlikely Acute Coronary Syndrome; stress test negative HIV Medication Reconciliation New Medications: Ipratropium-Albuterol (Duoneb) 3 Ml Nebu 1 TREATMENT INH Q4H for 15 Days, #200 ML Levofloxacin (Levaquin) 500 Mg Tab 500 MG PO DAILY for 7 Days, #7 TABS Nebulizer Machine (Home Use) (Nebulizer Machine (Home Use) ) Mis 1 EA N/A UD, #1 Oxycodone Hcl (Oxycodone Hcl) 5 Mg Cap 1 CAP PO TID PRN for Pain for 2 Days, #6 CAP Continued Medications: Albuterol Hfa (Ventolin Hfa) 200 Puffs/14758 Mcg Aers 2 PUFFS INH Q6H PRN for Shortness of Breath, #1 INHALER Amitriptyline Hcl (Amitriptyline Hcl) 50 Mg Tab 50 MG PO HS, TAB PT MAY TAKE 50MG IN AM IF NEEDED. Aspirin (Aspirin Ec) 81 Mg Tab 81 MG PO QAM Atorvastatin (Lipitor) 40 Mg Tab 40 MG PO DAILY for 30 Days, #30 TAB Budesonide/Formoterol Fumarate (Symbicort 160/4.5 Inhaler) 120 Puffs/ Aero 2 PUFFS INH BID, INHALER Chlorthalidone (Hygroton) 25 Mg Tab 25 MG PO QAM, TAB Clopidogrel (Plavix) 75 Mg Tab 75 MG PO QAM, TAB Darunavir Ethanolate (Prezista) 600 Mg Tab 600 MG PO BID TAKE THIS MEDICATION WITH FOOD Fentanyl (Fentanyl) 25 Mcg Tdsy 25 MCG TD Q72HRS DUE TO CHANGE 10/23/16 Folic Acid (Folic Acid) 1 Mg Tab 1 MG PO QAM Furosemide (Furosemide) 20 Mg Tab 20 MG PO DAILY PRN for swelling Losartan Potassium (Cozaar) 100 Mg Tab 100 MG PO QAM, TAB Metoprolol Tartrate (Metoprolol Tartrate) 100 Mg Tab 100 MG PO BID Ondansetron Hcl (Zofran) 4 Mg Tab 4 MG PO Q6 PRN for Nausea, TAB Oxycodone Hcl (Oxycodone Hcl) 15 Mg Tab 15 MG PO Q4-6HRS PRN for Pain Raltegravir Potassium (Isentress) 400 Mg Tab 400 MG PO BID, TAB Ritonavir (Norvir) 100 Mg Tab 100 MG PO BID Admission Information HPI (per Admitting provider): This is a 51 year old male with a PMH of HIV with peripheral neuropathy, R internal carotid artery stenosis with multiple and recurrent TIAs, hx. of CVA, possible hx. of [place] as per patient, hx. of migraines, chronic pain on long-term narcotics, depression/anxiety, anal dysplasia s/p polyp removal, COPD and current tobacco use, HTN. Presented here on 10/23 due to chest pain - cardiac enzymes, EKG and echo did not suggest any acute process. Outpatient stress was ordered and patient was discharged home. Returned to the ER today with worsening shortness of breath and chest tightness - he presented to the ER and found to have leukocytosis (19k; was discharged two days prior with 8k); found to have lactic acidosis and tachycardia. Improved with oxygen and nebulizer treatments Physical Exam (per Admitting): General Appearance: no apparent distress Head: normocephalic, atraumatic Eyes: normal inspection ENT: hearing grossly normal Neck: supple Respiratory/Chest: chest non-tender, lungs clear, normal breath sounds, no respiratory distress, no accessory muscle use Cardiovascular: no edema, no JVD, no murmur, + tachycardia Abdomen/GI: normal bowel sounds, non tender, soft Extremities/Musculoskelatal: normal inspection, no calf tenderness, normal capillary refill, no pedal edema, normal range of motion Neurologic/Psych: no motor/sensory deficits, alert, normal mood/affect Skin: normal color Lymphatic: no adenopathy Hospital Course This is a 51 year old male with a PMH of HIV with peripheral neuropathy, R internal carotid artery stenosis with multiple and recurrent TIAs, hx. of CVA, possible hx. of [place] as per patient, hx. of migraines, chronic pain on long-term narcotics, depression/anxiety, anal dysplasia s/p polyp removal, COPD and current tobacco use, HTN SIRS criteria in the setting of Immunodeficiency with HIV 10/27 possibly related to a pulmonary source as per ID we will discharge on Levaquin x7 days I will discharge him with a nebulizer machine and DuoNeb solution for the nebulizer 10/26 WBC improving from 19k --> 14k will continue Levaquin for now, blood cultures pending x2 lactic acid with slight improvement continue IVFs CD4, HIV RNA pending will await ID input for further recommendations 10/25 patient states he has been doing well with his HIV medications and follows with outpatient ID regarding CD4 count He was here secondary to chest pressure/pain on 10/23 - presents with shortness of breath/chest pain found to have leukocytosis, 19k; lactic acidosis > 3; tachycardia CXR negative, UA negative blood culture, urine culture pending given Levaquin + Vancomycin in the ER as well as fluids will check a CT chest to r/o PE will check CD4 count, HIV RNA, RPR, Hep C RNA; will repeat lactic acid multiple antibiotic allergies noted; will continue Levaquin and give IVFs ID consultation for further input Chest Pain r/o ACS 10/26 cardiac stress test performed and negative noncardiac chest tightness 10/25 patient presented with chest pain on 10/23 cardiac enzymes, EKG, echo looked fine at that time outpatient stress ordered and was discharged due to chest tightness and tachycardia, will trend enzymes again, repeat EKG in AM cardiology consultation for possible stress in AM? COPD Current Tobacco Use 10/26 will prescribe nebulizer as an outpatient 10/25 does not seem to be in an exacerbation; no wheezing appreciated possible bronchitis? will add Xopenex (secondary to tachycardia) O2 as needed may need a prednisone taper Peripheral Neuropathy Chronic Pain and on long-term narcotics will give low dose morphine for now follows with outpatient pain management, and should follow-up with them if pain is not controlled Recurrent TIAs Complete Occlusion of R carotid continue Plavix + statin EEG during previous admission was negative Anal Dysplasia to have f/u colonoscopy as outpatient HTN blood pressure stable hold Chlorthalidone, will be giving IVFs DVT ppx Lovenox FULL CODE Total time spent on discharge = 48 minutes This includes examination of the patient, discharge planning, medication reconciliation, and communication with other providers. Discharge Instructions Please follow-up with Dr. Burdick on October 29, 2016 @ 4:00PM You will be discharged on Levaquin for 7 days for a presumed pulmonary infection You will be given a nebulizer machine with medications to use with it - only use this as needed - follow-up with an outpatient electrification adviser regarding your COPD Primary care and infectious disease should check on the CD4 count and HIV viral load Additional Copies To Guillermo Burdick M.D.
[2016-10-27 10:58] VITALS: BP 160/87; PULSE 73; TEMP 36.3; O2SAT 99
--- NOTE | 2016-10-29 11:57 | EDITING REQUIRED CODING QUERY ---
CODING QUERY To promote full compliance with coding requirements relating to patient care, provider participation is requested in all cases of licensing representative uncertainty. Please assist us with the question(s) below: Coding Question(s): Dr. Pritchard, Possible pulmonary infection is documented throughout the chart. Please clarify the nature of the infection: ( ) Pneumonia ( ) Viral, specify viral agent, if known: ( X ) Possibly Bacterial, specify bacteria, if known: ( ) Other, please explain ( ) Bronchitis ( ) Acute ( ) Chronic ( ) Other, please explain ( ) Other diagnosis, please explain: Also, SIRS with possible infection is documented. Patient admitted with leukocytosis, elevated lactic acid, and tachycardia. Please clarify if: ( ) SIRS was present and treated ( ) SIRS was ruled out ( ) Sepsis was present and treated ( ) Sepsis was ruled out ( ) Other, please explain Physician's Response(s): Thank you for your time, HOUSTON Romero, CFO CONTROLLER
[2016-10-29 20:30] LABS: HEPATITIS C VIRAL RNA BY PCR <15 NOT DETECTED IU/ML (<15); HEPATITIS C VIRAL RNA(LOG) PCR <1.18 NOT DETECTED LOG IU/ML (<1.18); LSP % CELLS ANALYZED CD4 21 % (30-61); LSP ABSOLUTE CT CD4 337 cells/uL (490-1740); LSP LYMPHOCYTES ABSOLUTE 1579 cells/uL (850-3900)
--- NOTE | 2016-11-05 17:10 | EDITING REQUIRED CODING QUERY ---
CODING QUERY To promote full compliance with coding requirements relating to patient care, provider participation is requested in all cases of band splitter uncertainty. Please assist us with the question(s) below: Coding Question(s): To promote full compliance with coding requirements relating to patient care, provider participation is requested in all cases of band splitter uncertainty. Please assist us with the question(s) below: Coding Question(s): Dr. Pritchard, SIRS with possible infection is documented. Patient admitted with leukocytosis, elevated lactic acid, and tachycardia. Please clarify if: ( ) SIRS was present and treated ( ) SIRS was ruled out ( X ) Sepsis was present and treated ( ) Sepsis was ruled out ( ) Other, please explain Physician's Response(s): Thank you for your time, HOUSTON Romero, OFFAL SEPARATOR
--- NOTE | 2016-11-08 14:34 | EDITING REQUIRED CODING QUERY ---
CODING QUERY To promote full compliance with coding requirements relating to patient care, provider participation is requested in all cases of it program manager uncertainty. Please assist us with the question(s) below: Coding Question(s): Dr. Pritchard, I have one last question on this account. (I promise!) Was the patient's sepsis/pneumonia: ( ) related to the HIV infection ( X ) not related to the HIV infection ( ) other, please explain Physician's Response(s): Thank you again for your time, HOUSTON Romero, ARTIFICIAL FLOWERS D[employer]ER
[2016-11-20] MEDS ORDERED: LVQ750 PO (15:23)
[2016-11-20] MEDS ORDERED: NRV5 PO (15:23)
[2016-11-20] MEDS ORDERED: DXY100 PO (15:23)
[2016-12-28] MEDS ORDERED: ATOR-22 PO (14:31)
[2016-12-28] MEDS ORDERED: DOCU-94 PO (14:31)
[2017-01-08] MEDS ORDERED: DRGTP12 TOP (15:08)
[2017-01-08] MEDS ORDERED: FLV1 PO (16:15)
[2017-01-08] MEDS ORDERED: LSX20 PO (16:15)
[2017-01-08] MEDS ORDERED: FNTTP25 TOP (17:10)
[2017-01-08] MEDS ORDERED: VNTHFA/IN INH (17:10)
[2017-01-08] MEDS ORDERED: IPRASOL4 INH (17:16)
[2017-01-08] MEDS ORDERED: RITO100T PO (17:38)
[2017-01-08] MEDS ORDERED: SYMIN160 INH (17:38)
[2017-01-08] MEDS ORDERED: RALT400T PO (17:38)
[2017-01-08] MEDS ORDERED: DARU600T2 PO (17:38)
== END 2016-10-27 11:29 | disposition home or self-care (01) | DRG 974 ==
LOC: ENRESERVDT → ENRESERVTM → C.EDB 09:51 → C.2T 14:13 → EDBEDREQ 14:19
PROVIDERS: ADMIT Family Medicine; ATTEND Family Medicine
DX: A41.9 Sepsis, unspecified organism (principal); J15.9 Unspecified bacterial pneumonia; B20 Human immunodeficiency virus [HIV] disease; J44.0 Chronic obstructive pulmonary disease with (acute) lower respiratory infection; E87.2 Acidosis; R07.89 Other chest pain; G62.9 Polyneuropathy, unspecified; G89.29 Other chronic pain; K62.82 Dysplasia of anus; I10 Essential (primary) hypertension; I65.21 Occlusion and stenosis of right carotid artery; R25.1 Tremor, unspecified; F41.9 Anxiety disorder, unspecified; F32.9 Major depressive disorder, single episode, unspecified; F10.21 Alcohol dependence, in remission; F17.200 Nicotine dependence, unspecified, uncomplicated; I25.2 Old myocardial infarction; Z86.73 Personal history of transient ischemic attack (TIA), and cerebral infarction without residual deficits; Z79.82 Long term (current) use of aspirin; Z79.51 Long term (current) use of inhaled steroids; Z79.02 Long term (current) use of antithrombotics/antiplatelets; Z79.891 Long term (current) use of opiate analgesic; Z79.899 Other long term (current) drug therapy

== ENCOUNTER 2016-11-04 19:26 | Emergency (ER) | payer OTHER ==
[~2016-11-04] VITALS: Ht 182.9 cm; Wt 87.0 kg
[~2016-11-04 19:26] MED LIST changes: +IPRASOL4 INH; +LEVO-459 PO; +NEBMAC
[2016-11-04 19:37] VITALS: TEMP 37.1; Ht 182.9 cm; Wt 87.0 kg
[2016-11-04] MEDS ORDERED: SODIUM CHLORIDE 0.9% 1000ML 1,000 ML IV STA ×2 (19:57→20:06)
[2016-11-04 19:58] VITALS: O2SAT 98
[2016-11-04 20:17] LABS: BASO % 0.7 %; BASO ABS # 0.07 K/uL (0-0.2); COMPLETE YES; EOS % 1.6 %; HEMATOCRIT 41.1 % (42-52); IG% 0.2 %; LYMPH % 34.5 %; MEAN CELL VOLUME 86.2 fL (80-100); MEAN CORPUSCULAR HEMOGLOBIN 30.2 pg (25-34); MONO % 8.4 %; NEUT % 54.6 %; PLATELET COUNT 221 K/uL (130-400); RED BLOOD COUNT 4.77 M/uL (4.7-6.1); WHITE BLOOD COUNT 9.85 K/uL (4.8-10.8)
--- NOTE | 2016-11-04 20:21 | DIAGNOSTIC IMAGING REPORT ---
CHEST ONE VIEW PORTABLE CLINICAL HISTORY: Altered mental status. Weakness. COMPARISON STUDY: Chest radiograph and chest CT October 25, 2016. FINDINGS: Lung volumes are normal. There is no pneumothorax or pleural effusion. Slight increased bibasilar markings likely reflect atelectasis or normal vessels. There is no lobar consolidation. Cardiomediastinal silhouette is normal. There is no evidence of pulmonary edema. IMPRESSION: Mild bibasilar opacities which likely reflect atelectasis or normal vessels. An infectious process could appear similar but is considered less likely. Electronically signed by: Gabo Moore M.D. 11/04/2016 8:19 PM Dictated Date/Time: 11/04/2016 8:18 PM
[2016-11-04 20:25] LABS: CALCIUM 9.2 mg/dl (8.5-10.1)
[2016-11-04 20:26] LABS: ALT/SGPT 32 U/L (12-78); BLOOD UREA NITROGEN 14 mg/dl (7-18); BUN/CREATININE RATIO 14.2 (10-20); CARBON DIOXIDE 25 mmol/L (21-32); CHLORIDE 104 mmol/L (98-107); GLUCOSE 85 mg/dl (70-99); MAGNESIUM 2.3 mg/dl (1.8-2.4); POTASSIUM 3.3 mmol/L (3.5-5.1); SODIUM 138 mmol/L (136-145)
[2016-11-04 20:37] LABS: ALKALINE PHOSPHATASE 93 U/L (45-117); AST/SGOT 17 U/L (15-37); CKMB/CK RATIO 1.2 (0-3.0)
[2016-11-05] MEDS ORDERED: POTASSIUM CHLORIDE 10 MEQ TABCR PO STA (00:23)
[2016-11-05 00:26] VITALS: PULSE 89; O2SAT 98
[2016-11-05 00:38] VITALS: BP 149/99
--- NOTE | 2016-11-05 00:48 | EMERGENCY ROOM VISIT NOTE ---
History Report prepared by Brittni: Neal Carlisle Under the Supervision of: Dr. Stiven Rebollar M.D. First contact with patient: 19:51 Chief Complaint: SYNCOPE (NEAR SYNCOPE) Stated Complaint: SYNCOPE Nursing Triage Summary: Pt arrived via ambulance ALS. Pt is a 51 year old male who had a near syncopal episode today. Pt has been experiencing lightheadedness and dizziness for months. Patient was recently here with similar symptoms. Pt blood pressure was elevated enroute. All other vitals stable. History of Present Illness The patient is a 51 year old male who presents to the Emergency Room with complaints of a sudden near syncopal episode that occurred prior to arrival. The patient arrived to the ED via ambulance. He rates his pain as a 6/10 in severity. The patient states that he feels tight in his chest, dizzy, and lightheaded. He additionally associates to diaphoresis, diarrhea for two days, and a decrease in urination. The patient states that he has a history of HIV, noting that recently his CD count was low and his viral load is elevated. He states that until recently, his viral load was undetectable. The patient denies missing any medications. Pt denies headache, fevers, chills, visual changes, neck pain, breathing difficulties, nausea, vomiting, abdominal pain, back pain, melena, hematochezia, numbness, weakness, lymphadenopathy, rash, or other complaints. Source of History: patient Onset: prior to arrival Position: other (global) Symptom Intensity: 6/10 Quality: other (near syncopal episode) Timing: other (sudden) Associated Symptoms: + diaphoresis, + diarrhea Note: Associated symptoms include lightheadedness, dizziness, and a decrease in urination. Review of Systems See HPI for pertinent positives and negatives. A total of ten systems were reviewed and were otherwise negative. Past Medical & Surgical Medical Problems: (1) ? H/o [place] (2) Anal dysplasia (3) Anxiety (4) AVM (arteriovenous malformation) brain (5) Carotid stenosis (6) Cerebritis (7) COPD (chronic obstructive pulmonary disease) (8) Depression (9) Dyslipidemia (10) Headache (11) History of alcohol abuse (12) History of CVA (cerebrovascular accident) (13) Human immunodeficiency virus infection (14) Hypertension (15) Ischemic stroke (16) Leukocytosis (17) Migraine (18) Numbness of left hand (19) Polyp of colon (20) Sepsis (21) Syncope Family History Diabetes mellitus FATHER MOTHER FH: cancer FATHER (lung CA) Hypertension FATHER Social History Smoking Status: Current Every Day Smoker Alcohol Use: none Drug Use: none Marital Status: Housing Status: lives with family Occupation Status: unemployed Current/Historical Medications Scheduled Amitriptyline Hcl (Amitriptyline Hcl), 50 MG PO HS Aspirin (Aspirin Ec), 81 MG PO QAM Atorvastatin (Lipitor), 40 MG PO DAILY Budesonide/Formoterol Fumarate (Symbicort 160/4.5 Inhaler), 2 PUFFS INH BID Chlorthalidone (Hygroton), 25 MG PO QAM Clopidogrel (Plavix), 75 MG PO QAM Darunavir Ethanolate (Prezista), 600 MG PO BID Fentanyl (Fentanyl), 25 MCG TD Q72HRS Folic Acid (Folic Acid), 1 MG PO QAM Ipratropium-Albuterol (Duoneb), 1 TREATMENT INH Q4H Losartan Potassium (Cozaar), 100 MG PO QAM Metoprolol Tartrate (Metoprolol Tartrate), 100 MG PO BID Raltegravir Potassium (Isentress), 400 MG PO BID Ritonavir (Norvir), 100 MG PO BID Scheduled PRN Albuterol Hfa (Ventolin Hfa), 2 PUFFS INH Q6H PRN for Shortness of Breath Furosemide (Furosemide), 20 MG PO DAILY PRN for swelling Ondansetron Hcl (Zofran), 4 MG PO Q6 PRN for Nausea Oxycodone Hcl (Oxycodone Hcl), 15 MG PO Q4-6HRS PRN for Pain Durable Medical Equipment Nebulizer Machine (Home Use) (Nebulizer Machine (Home Use) ), 1 EA N/A UD Allergies Coded Allergies: Penicillins (Verified Allergy, Severe, ANAPHYLAXIS, 10/25/16) Azithromycin (Verified Allergy, Intermediate, RASH AND SKIN PEELING, ) Niacin (Verified Allergy, Intermediate, RASH, 10/25/16) Sulfa Antibiotics (Verified Allergy, Unknown, "ITCHY RASH", 10/25/16) Tramadol (Verified Allergy, Unknown, RASH, 10/25/16) Gabapentin (Verified Adverse Reaction, Intermediate, hallucinations, ) Shellfish (Verified Adverse Reaction, Intermediate, gi symptoms, 10/25/16) Topiramate (Verified Adverse Reaction, Intermediate, NAUSEA, 10/25/16) Meloxicam (Verified Adverse Reaction, Unknown, GI SYMPTOMS, 10/25/16) Morphine (Verified Adverse Reaction, Unknown, SHORTNESS OF BREATH-PO MORPHINE, 10/25/16) Physical Exam Vital Signs Date Time Temp Pulse Resp B/P Pulse Ox O2 Delivery O2 Flow Rate FiO2 11/05/16 00:09 95 11/04/16 22:01 89 20 136/89 97 Room Air 11/04/16 20:52 91 20 136/81 99 Room Air 89 149/89 11/04/16 19:58 98 Room Air 11/04/16 19:37 37.1 94 20 187/100 100 Room Air 11/04/16 19:33 95 Physical Exam GENERAL: Awake, alert, well-appearing, in no distress HENT: Normocephalic, atraumatic. Oropharynx unremarkable. EYES: Normal conjunctiva. Sclera non-icteric. NECK: Supple. No nuchal rigidity. FROM. No JVD. RESPIRATORY: Clear to auscultation. CARDIAC: Regular rate, normal rhythm. Extremities warm and well perfused. Pulses equal. ABDOMEN: Soft, non-distended. No tenderness to palpation. No rebound or guarding. No masses. RECTAL: Deferred. MUSCULOSKELETAL: Chest examination reveals no tenderness. The back is symmetrical on inspection without obvious abnormality. There is no CVA tenderness to palpation. No joint edema. LOWER EXTREMITIES: Calves are equal size bilaterally and non-tender. No edema. No discoloration. NEURO: Normal sensorium. No sensory or motor deficits noted. SKIN: No rash or jaundice noted. Medical Decision & Procedures ER Provider Diagnostic Interpretation: X-ray: Per my interpretation, radiologist review. CHEST ONE VIEW PORTABLE CLINICAL HISTORY: Altered mental status. Weakness. COMPARISON STUDY: Chest radiograph and chest CT October 25, 2016. FINDINGS: Lung volumes are normal. There is no pneumothorax or pleural effusion. Slight increased bibasilar markings likely reflect atelectasis or normal vessels. There is no lobar consolidation. Cardiomediastinal silhouette is normal. There is no evidence of pulmonary edema. IMPRESSION: Mild bibasilar opacities which likely reflect atelectasis or normal vessels. An infectious process could appear similar but is considered less likely. Electronically signed by: Gabo Moore M.D. 11/04/2016 8:19 PM Dictated Date/Time: 11/04/2016 8:18 PM Laboratory Results 11/04/16 19:32 Red Blood Count 4.77, Mean Corpuscular Volume 86.2, Mean Corpuscular Hemoglobin 30.2, Mean Corpuscular Hemoglobin Concent 35.0, Mean Platelet Volume 9.0, Neutrophils (%) (Auto) 54.6, Lymphocytes (%) (Auto) 34.5, Monocytes (%) (Auto) 8.4, Eosinophils (%) (Auto) 1.6, Basophils (%) (Auto) 0.7, Neutrophils # (Auto) 5.37, Lymphocytes # (Auto) 3.40, Monocytes # (Auto) 0.83, Eosinophils # (Auto) 0.16, Basophils # (Auto) 0.07 11/04/16 19:32 Test 11/04/16 19:32 11/04/16 20:27 White Blood Count 9.85 K/uL (4.8-10.8) Red Blood Count 4.77 M/uL (4.7-6.1) Hemoglobin 14.4 g/dL (14.0-18.0) Hematocrit 41.1 % (42-52) Mean Corpuscular Volume 86.2 fL (80-100) Mean Corpuscular Hemoglobin 30.2 pg (25-34) Mean Corpuscular Hemoglobin Concent 35.0 g/dl (32-36) Platelet Count 221 K/uL (130-400) Mean Platelet Volume 9.0 fL (7.4-10.4) Neutrophils (%) (Auto) 54.6 % Lymphocytes (%) (Auto) 34.5 % Monocytes (%) (Auto) 8.4 % Eosinophils (%) (Auto) 1.6 % Basophils (%) (Auto) 0.7 % Neutrophils # (Auto) 5.37 K/uL (1.4-6.5) Lymphocytes # (Auto) 3.40 K/uL (1.2-3.4) Monocytes # (Auto) 0.83 K/uL (0.11-0.59) Eosinophils # (Auto) 0.16 K/uL (0-0.5) Basophils # (Auto) 0.07 K/uL (0-0.2) RDW Standard Deviation 44.8 fL (36.4-46.3) RDW Coefficient of Variation 14.4 % (11.5-14.5) Immature Granulocyte % (Auto) 0.2 % Immature Granulocyte # (Auto) 0.02 K/uL (0.00-0.02) Anion Gap 9.0 mmol/L (3-11) Est Creatinine Clear Calc Drug Dose 94.9 ml/min Estimated GFR () 99.8 Estimated GFR (Non- 86.2 BUN/Creatinine Ratio 14.2 (10-20) Calcium Level 9.2 mg/dl (8.5-10.1) Magnesium Level 2.3 mg/dl (1.8-2.4) Total Bilirubin 0.4 mg/dl (0.2-1) Direct Bilirubin < 0.1 mg/dl (0-0.2) Aspartate Amino Transf (AST/SGOT) 17 U/L (15-37) Alanine Aminotransferase (ALT/SGPT) 32 U/L (12-78) Alkaline Phosphatase 93 U/L (45-117) Total Creatine Kinase 104 U/L (39-308) Creatine Kinase MB 1.2 ng/ml (0.5-3.6) Creatine Kinase MB Ratio 1.2 (0-3.0) Troponin I < 0.015 ng/ml (0-0.045) Total Protein 7.8 gm/dl (6.4-8.2) Albumin 4.0 gm/dl (3.4-5.0) Thyroid Stimulating Hormone (TSH) 2.160 uIu/ml (0.300-4.500) Bedside Glucose 79 mg/dl (70-99) Laboratory results reviewed by me Medications Administered Medications (Trade) Dose Ordered Sig/Josh Route Start Time Stop Time Status Last Admin Dose Admin Sodium Chloride 1,000 ml @ 999 mls/hr Q1H1M STAT IV 11/04/16 19:57 11/04/16 20:57 DC 11/04/16 20:40 999 MLS/HR Sodium Chloride (Nss 1000ml) 1,000 ml @ 250 mls/hr Q4H STAT IV 11/04/16 20:06 11/05/16 00:05 DC 11/04/16 21:32 250 MLS/HR ECG Indication: syncope Rate (beats per minute): 86 Rhythm: normal sinus Findings: no acute ischemic change, no ectopy ED Course 1956: Ordered Sodium Chloride 1000 ml @ 250 mls/hr IV. 2000: The patient was evaluated in room C01B. A complete history and physical exam was performed. 2005: Ordered Sodium Chloride 1000 ml @ 250 mls/hr IV. 2228: I reevaluated the patient and he is resting comfortably. 0020: Patient evaluated. Unable to provide a urine specimen. 0040: Urine specimen provided and was unremarkable. Return instructions were outlined and the patient was discharged. Medical Decision Triage Nursing notes reviewed. The patient's presentation and history were concerning for near syncope and diarrhea. Etiologies such as diarrheal illness, electrolyte abnormality, C. difficile infection, gastroenteritis, food borne illness, infections, obstruction, pancreatitis, appendicitis, diverticulitis, inflammatory bowel disease, GI bleed , biliary pathology, toxicologic as well as others were entertained. The patient was evaluated. A workup was performed. He is doing much better than he was last time that I saw him. His blood work revealed a normal CBC. His chemistry panel revealed mild hypokalemia. Potassium was ordered. The patient was unable to provide a urine or stool specimen. He was hydrated. Chest x-ray was performed and was showing some atelectatic change. The patient has no cough or shortness of breath. No symptoms to suggest pneumonia. The patient had finally provided a urine dip and this was negative. It was sent. The patient was provided with the necessary sampling equipment to get a stool specimen to take to his PCP. He is not toxic at this point in time and I believe it is okay to continue the workup as an outpatient. The patient felt very comfortable with this. He was discharged in stable condition to see his PCP in 10 hours. By the evaluation outlined above other emergent etiologies such as those listed in the differential, as well as others, were deemed relatively unlikely. The patient was informed about the findings as listed above. All questions were answered and she was pleased with the treatment. Return instructions were outlined and the patient was discharged in stable condition. The patient was referred to his pcp tomorrow for follow-up for a recheck of the current condition. The chart was completed utilizing [employer] voice recognition software. Grammatical errors, random word insertions, pronoun errors, and incomplete sentences are an occasional consequence of this system due to software limitations, ambient noise, and hardware issues. Any formal questions or concerns about the content, text, or information contained within the body of this dictation should be directly addressed to the physician for clarification. Impression Primary Impression: Diarrhea Additional Impression: Hypokalemia Departure Information Dispostion Home / Self-Care Referrals Guillermo Burdick M.D. (PCP) Patient Instructions My [facility] Additional Instructions Continue current medications. Follow-up with your appointment as scheduled tomorrow. Obtained a stool sample and take this to your follow-up appointment. Testing for C. difficile as well as other infections is very important. Return to the ER for chest pain, difficulty breathing, fevers, vomiting, bloody stools, worsening of your condition, or as needed. Problem Qualifiers
[2016-11-05 01:05] LABS: URINE APPEARANCE CLEAR (CLEAR); URINE BILIRUBIN NEG (NEG); URINE COLOR YELLOW; URINE NITRITE NEG (NEG); UROBILINOGEN NEG (NEG)
[2016-11-05 01:12] LABS: MANUAL MICROSCOPIC REQUIRED? NO; REVIEW REQ? NO
[2016-11-20] MEDS ORDERED: LVQ750 PO (15:23)
[2016-11-20] MEDS ORDERED: NRV5 PO (15:23)
[2016-11-20] MEDS ORDERED: DXY100 PO (15:23)
[2016-12-28] MEDS ORDERED: ATOR-22 PO (14:31)
[2016-12-28] MEDS ORDERED: DOCU-94 PO (14:31)
[2017-01-08] MEDS ORDERED: DRGTP12 TOP (15:08)
[2017-01-08] MEDS ORDERED: LSX20 PO (16:15)
[2017-01-08] MEDS ORDERED: FLV1 PO (16:15)
[2017-01-08] MEDS ORDERED: FNTTP25 TOP (17:10)
[2017-01-08] MEDS ORDERED: VNTHFA/IN INH (17:10)
[2017-01-08] MEDS ORDERED: IPRASOL4 INH (17:16)
[2017-01-08] MEDS ORDERED: RALT400T PO (17:38)
[2017-01-08] MEDS ORDERED: SYMIN160 INH (17:38)
[2017-01-08] MEDS ORDERED: DARU600T2 PO (17:38)
[2017-01-08] MEDS ORDERED: RITO100T PO (17:38)
[2017-02-10] MEDS ORDERED: LEVO1TAB35 PO (09:18)
== END 2016-11-05 00:57 | disposition home or self-care (01) ==
LOC: EDBD 19:26 → C.EDC 19:28
DX: R55 Syncope and collapse (principal); R19.7 Diarrhea, unspecified; E87.6 Hypokalemia; I10 Essential (primary) hypertension; E78.5 Hyperlipidemia, unspecified; B20 Human immunodeficiency virus [HIV] disease; J44.9 Chronic obstructive pulmonary disease, unspecified; F32.9 Major depressive disorder, single episode, unspecified; F41.9 Anxiety disorder, unspecified; Z86.73 Personal history of transient ischemic attack (TIA), and cerebral infarction without residual deficits; F17.200 Nicotine dependence, unspecified, uncomplicated; Z79.82 Long term (current) use of aspirin; Z79.899 Other long term (current) drug therapy; Z88.0 Allergy status to penicillin; Z88.1 Allergy status to other antibiotic agents; Z88.2 Allergy status to sulfonamides; Z88.8 Allergy status to other drugs, medicaments and biological substances; Z91.018 Allergy to other foods; Z83.3 Family history of diabetes mellitus; Z80.9 Family history of malignant neoplasm, unspecified; Z82.49 Family history of ischemic heart disease and other diseases of the circulatory system

== ENCOUNTER 2016-11-17 14:24 | Inpatient (IN) | payer OTHER ==
[~2016-11-17] VITALS: Ht 182.9 cm; Wt 87.8 kg
[~2016-11-17 14:24] MED LIST changes: -IPRASOL4 INH; -LEVO-459 PO; -NEBMAC
[2016-11-17] MEDS ORDERED: SODIUM CHLORIDE 0.9% 1000ML 1,000 ML IV STA (14:38)
[2016-11-17] MEDS ORDERED: NITROGLYCERIN 0.4 MG SL PER TAB CHARGE ONE (14:44)
[2016-11-17] MEDS ORDERED: NITROGLYCERIN 0.4 MG SL PER TAB CHARGE SL PRN (14:45)
[2016-11-17 14:47] LABS: BASO % 0.7 %; BASO ABS # 0.08 K/uL (0-0.2); COMPLETE YES; EOS % 0.2 %; HEMATOCRIT 40.2 % (42-52); IG% 1.5 %; LYMPH % 19.8 %; LYMPH ABS # 2.17 K/uL (1.2-3.4); MEAN CELL VOLUME 86.3 fL (80-100); MEAN CORPUSCULAR HGB CONC 34.8 g/dl (32-36); MEAN PLATELET VOLUME 9.2 fL (7.4-10.4); MONO % 5.2 %; NEUT % 72.6 %; PLATELET COUNT 208 K/uL (130-400); RED BLOOD COUNT 4.66 M/uL (4.7-6.1); WHITE BLOOD COUNT 10.98 K/uL (4.8-10.8)
--- NOTE | 2016-11-17 14:51 | DIAGNOSTIC IMAGING REPORT ---
CHEST ONE VIEW PORTABLE CLINICAL HISTORY: chest pain dyspnea COMPARISON STUDY: 11/04/2016 FINDINGS: The bones soft tissues and hemidiaphragms are normal. The cardiomediastinal silhouette is normal. The lungs are clear. The pulmonary vasculature is normal. IMPRESSION: Negative chest. Electronically signed by: James Kebede M.D. 11/17/2016 2:49 PM Dictated Date/Time: 11/17/2016 2:49 PM
[2016-11-17] MEDS ORDERED: OPTIRAY 320 IV PRN (15:00)
[2016-11-17] MEDS ORDERED: ONDANSETRON INJ 2 MG/ML 2 ML VIAL IV STA (15:07)
[2016-11-17] MEDS ORDERED: HYDROmorphone INJ 1 MG/ML SYR IV STA (15:07)
[2016-11-17 15:12] LABS: BLOOD UREA NITROGEN 11 mg/dl (7-18); BUN/CREATININE RATIO 9.5 (10-20); CALCIUM 9.6 mg/dl (8.5-10.1); CARBON DIOXIDE 22 mmol/L (21-32); CHLORIDE 103 mmol/L (98-107); GLUCOSE 176 mg/dl (70-99); POTASSIUM 3.7 mmol/L (3.5-5.1); SODIUM 139 mmol/L (136-145)
[2016-11-17 15:30] LABS: CKMB/CK RATIO 1.4 (0-3.0)
[2016-11-17] MEDS ORDERED: RANITIDINE HCL 50 MG/100 ML D5W IV STA (15:35)
--- NOTE | 2016-11-17 15:48 | DIAGNOSTIC IMAGING REPORT ---
CT HEAD WITHOUT CONTRAST (CT) CLINICAL HISTORY: Severe headache COMPARISON STUDY: 10/22/2016 TECHNIQUE: Axial CT of the brain is performed from the vertex to the skull base. IV contrast was not administered for this examination. CT DOSE: FINDINGS: No intra or extra-axial mass lesions are visualized. There is no CT evidence of acute cortical infarction. There is no evidence of midline shift. There is no acute hemorrhage. No calvarial fractures are visualized. There are minimal white matter hypodensities likely on a small vessel basis. There is an old right parietal infarct. There is no evidence of pathologic ventricular dilatation. There is no evidence of acute sinusitis IMPRESSION: Old right parietal lobe infarct. No acute intracranial findings. Electronically signed by: Donnie Putnam M.D. 11/17/2016 3:47 PM Dictated Date/Time: 11/17/2016 3:45 PM
--- NOTE | 2016-11-17 15:55 | DIAGNOSTIC IMAGING REPORT ---
CT ANGIOGRAPHY OF THE CHEST, PULMONARY EMBOLUS PROTOCOL CLINICAL HISTORY: Worsening central chest pain. Tachycardia. COMPARISON STUDY: Chest CT October 25, 2016. TECHNIQUE: Following IV administration of 91 mL of Optiray-320, helical axial images of the chest were obtained utilizing the pulmonary embolus protocol. Maximal intensity projections and sagittal and coronal reformats were viewed on an independent 3D workstation. IV contrast was administered without complication. CT DOSE: 987.07 mGy.cm FINDINGS: No pulmonary emboli are identified although the subsegmental arteries are suboptimally assessed due to respiratory motion. There is mild cardiomegaly and mild dilatation of the ascending aorta which measures 4 cm at the level of the main pulmonary artery. There is no evidence of thoracic aortic dissection. There is no pericardial effusion. Moderate coronary artery calcification is present. There are no enlarged thoracic lymph nodes. There has been interval development of several ill-defined nodular opacities within the right upper lobe since CT of October 25, 2016. There is no pneumothorax or pleural effusion. Groundglass opacities favor atelectasis. Bony thorax and upper abdomen are unremarkable. IMPRESSION: 1. No pulmonary emboli identified although the subsegmental pulmonary arteries suboptimally assessed due to respiratory motion. 2. Interval development of several nodular opacities within the right upper lobe since CT of October 25, 2016 suggestive of an infectious process such as bronchiolitis/bronchopneumonia. 3. Mild cardiomegaly and mild dilatation of the ascending aorta. No thoracic aortic dissection. Electronically signed by: Gabo Moore M.D. 11/17/2016 3:54 PM Dictated Date/Time: 11/17/2016 3:44 PM
[2016-11-17] MEDS ORDERED: VANCOMYCIN INJ 1,000 MG in SODIUM CHLORIDE 0.9% 250ML 250 ML IV STA (16:09)
[2016-11-17] MEDS ORDERED: SODIUM CHLORIDE 0.9% 1000ML 1,000 ML IV SCH (16:15)
[2016-11-17] MEDS ORDERED: LEVAQUIN 750MG / 150ML D5W IV ONE (16:15)
[2016-11-17] MEDS ORDERED: AZTREONAM IV 2,000 MG in DEXTROSE 5% 100ML 100 ML IV STA (16:19)
--- NOTE | 2016-11-17 16:37 | EMERGENCY ROOM VISIT NOTE ---
ED Visit Note First contact with patient: 14:25 Resident Physician Supervision Note: I interviewed and examined the patient. Discussed with Dr. Hayes and agree with findings and plan as documented in the note. Documented By: Sascha Turner Problem List Medical Problems: (1) ? H/o [place] Status: Chronic (2) Anal dysplasia Status: Chronic (3) Anxiety Status: Chronic (4) AVM (arteriovenous malformation) brain Status: Chronic (5) Carotid stenosis Permanent Comment: 03/06/15-SAÚL occlusion, LICA with 50-59% stenosis Status: Chronic (6) Cerebritis Status: Resolved (7) COPD (chronic obstructive pulmonary disease) Status: Chronic (8) Depression Status: Chronic (9) Dyslipidemia Status: Chronic (10) History of alcohol abuse Status: Resolved (11) History of CVA (cerebrovascular accident) Permanent Comment: in setting of right carotid artery thrombosis Status: Chronic (12) Human immunodeficiency virus infection Status: Chronic (13) Hypertension Status: Chronic (14) Ischemic stroke Status: Resolved (15) Migraine Status: Chronic (16) Polyp of colon Status: Chronic (17) Sepsis Status: Resolved Current/Historical Medications Scheduled Amitriptyline Hcl (Amitriptyline Hcl), 50 MG PO HS Aspirin (Aspirin Ec), 81 MG PO QAM Atorvastatin (Lipitor), 40 MG PO DAILY Budesonide/Formoterol Fumarate (Symbicort 160/4.5 Inhaler), 2 PUFFS INH BID Chlorthalidone (Hygroton), 25 MG PO QAM Clopidogrel (Plavix), 75 MG PO QAM Darunavir Ethanolate (Prezista), 600 MG PO BID Fentanyl (Fentanyl), 25 MCG TD Q72HRS Fentanyl (Fentanyl), 12 MCG TOP Q72H Folic Acid (Folic Acid), 1 MG PO QAM Losartan Potassium (Cozaar), 100 MG PO QAM Metoprolol Tartrate (Metoprolol Tartrate), 100 MG PO BID Raltegravir Potassium (Isentress), 400 MG PO BID Ritonavir (Norvir), 100 MG PO BID Scheduled PRN Albuterol Hfa (Ventolin Hfa), 2 PUFFS INH Q6H PRN for Shortness of Breath Furosemide (Furosemide), 20 MG PO DAILY PRN for swelling Ondansetron Hcl (Zofran), 4 MG PO Q6 PRN for Nausea Oxycodone Hcl (Oxycodone Hcl), 15 MG PO Q4-6HRS PRN for Pain Allergies Coded Allergies: Penicillins (Verified Allergy, Severe, ANAPHYLAXIS, 10/25/16) Azithromycin (Verified Allergy, Intermediate, RASH AND SKIN PEELING, ) Niacin (Verified Allergy, Intermediate, RASH, 10/25/16) Sulfa Antibiotics (Verified Allergy, Unknown, "ITCHY RASH", 10/25/16) Tramadol (Verified Allergy, Unknown, RASH, 10/25/16) Gabapentin (Verified Adverse Reaction, Intermediate, hallucinations, ) Shellfish (Verified Adverse Reaction, Intermediate, gi symptoms, 10/25/16) Topiramate (Verified Adverse Reaction, Intermediate, NAUSEA, 10/25/16) Meloxicam (Verified Adverse Reaction, Unknown, GI SYMPTOMS, 10/25/16) Vital Signs Date Time Temp Pulse Resp B/P (MAP) Pulse Ox O2 Delivery O2 Flow Rate FiO2 11/17/16 16:00 114 21 140/84 95 Room Air 11/17/16 15:50 118 123/76 96 11/17/16 15:22 135/66 11/17/16 15:17 131/91 11/17/16 15:14 128 19 97 11/17/16 15:13 129 25 96 11/17/16 15:12 143/88 11/17/16 15:08 128 22 97 11/17/16 15:07 113/86 11/17/16 15:03 133 20 98 11/17/16 15:02 129/94 11/17/16 14:58 136 21 97 11/17/16 14:57 119/87 11/17/16 14:53 140 22 96 11/17/16 14:53 141 11/17/16 14:52 112/74 11/17/16 14:47 142 20 112/76 96 Room Air 11/17/16 14:34 97 Room Air 11/17/16 14:34 36.4 138 20 132/77 97 Room Air 11/17/16 14:34 97 Room Air Laboratory Results 11/17/16 14:30 Red Blood Count 4.66, Mean Corpuscular Volume 86.3, Mean Corpuscular Hemoglobin 30.0, Mean Corpuscular Hemoglobin Concent 34.8, Mean Platelet Volume 9.2, Neutrophils (%) (Auto) 72.6, Lymphocytes (%) (Auto) 19.8, Monocytes (%) (Auto) 5.2, Eosinophils (%) (Auto) 0.2, Basophils (%) (Auto) 0.7, Neutrophils # (Auto) 7.98, Lymphocytes # (Auto) 2.17, Monocytes # (Auto) 0.57, Eosinophils # (Auto) 0.02, Basophils # (Auto) 0.08 11/17/16 14:30 Test 11/17/16 14:30 11/17/16 16:09 White Blood Count 10.98 K/uL (4.8-10.8) Red Blood Count 4.66 M/uL (4.7-6.1) Hemoglobin 14.0 g/dL (14.0-18.0) Hematocrit 40.2 % (42-52) Mean Corpuscular Volume 86.3 fL (80-100) Mean Corpuscular Hemoglobin 30.0 pg (25-34) Mean Corpuscular Hemoglobin Concent 34.8 g/dl (32-36) Platelet Count 208 K/uL (130-400) Mean Platelet Volume 9.2 fL (7.4-10.4) Neutrophils (%) (Auto) 72.6 % Lymphocytes (%) (Auto) 19.8 % Monocytes (%) (Auto) 5.2 % Eosinophils (%) (Auto) 0.2 % Basophils (%) (Auto) 0.7 % Neutrophils # (Auto) 7.98 K/uL (1.4-6.5) Lymphocytes # (Auto) 2.17 K/uL (1.2-3.4) Monocytes # (Auto) 0.57 K/uL (0.11-0.59) Eosinophils # (Auto) 0.02 K/uL (0-0.5) Basophils # (Auto) 0.08 K/uL (0-0.2) RDW Standard Deviation 46.2 fL (36.4-46.3) RDW Coefficient of Variation 14.7 % (11.5-14.5) Immature Granulocyte % (Auto) 1.5 % Immature Granulocyte # (Auto) 0.16 K/uL (0.00-0.02) Anion Gap 14.0 mmol/L (3-11) Est Creatinine Clear Calc Drug Dose 86.2 ml/min Estimated GFR () 89.0 Estimated GFR (Non- 76.8 BUN/Creatinine Ratio 9.5 (10-20) Calcium Level 9.6 mg/dl (8.5-10.1) Total Creatine Kinase 58 U/L (39-308) Creatine Kinase MB 0.8 ng/ml (0.5-3.6) Creatine Kinase MB Ratio 1.4 (0-3.0) Troponin I < 0.015 ng/ml (0-0.045) Chemistry Specimen Hemolysis Medications Administered Medications (Trade) Dose Ordered Sig/Josh Route Start Time Stop Time Status Last Admin Dose Admin Sodium Chloride 1,000 ml @ 999 mls/hr Q1H1M STAT IV 11/17/16 14:38 11/17/16 15:08 DC 11/17/16 15:05 999 MLS/HR Nitroglycerin (Nitrostat Tab) 0.4 mg STK-MED ONCE .ROUTE 11/17/16 14:44 11/17/16 14:45 DC 11/17/16 14:45 0.4 MG Hydromorphone HCl (Dilaudid Inj) 1 mg NOW STAT IV 11/17/16 15:07 11/17/16 15:08 DC 11/17/16 15:10 1 MG Ondansetron HCl (Zofran Inj) 4 mg NOW STAT IV 11/17/16 15:07 11/17/16 15:08 DC 11/17/16 15:10 4 MG Ranitidine HCl (zANTac IV) 50 mg NOW STAT IV 11/17/16 15:35 11/17/16 15:36 DC 11/17/16 16:11 50 MG Departure Information Referrals Guillermo Burdick M.D. (PCP) Patient Instructions My [facility]
--- NOTE | 2016-11-17 16:45 | DIAGNOSTIC IMAGING REPORT ---
ULTRASOUND RIGHT LOWER EXTREMITY VENOUS CLINICAL HISTORY: Right leg swelling. COMPARISON STUDY: No priors. TECHNIQUE: Real-time, grayscale, and color Doppler sonography of the deep veins of the right lower extremity was performed from the inguinal crease to the calf. Compression and augmentation were utilized. FINDINGS: There is no sonographic evidence of deep venous thrombosis identified in the right lower extremity. The common femoral, superficial femoral, and popliteal veins are patent and normally compressible. The greater saphenous vein and the profunda femoris vein at the junction with the common femoral vein are clear. The visualized calf veins are patent. IMPRESSION: There is no sonographic evidence of deep venous thrombosis identified in the right lower extremity. Electronically signed by: Nico Guerra M.D. 11/17/2016 4:44 PM Dictated Date/Time: 11/17/2016 4:43 PM
[2016-11-17] MEDS ORDERED: ONDANSETRON INJ 2 MG/ML 2 ML VIAL IV PRN (17:00)
[2016-11-17] MEDS ORDERED: LEVALBUTEROL/IPRATROPIUM NEB INH PRN (17:15)
[2016-11-17] MEDS ORDERED: OXYC1CAP5 PO (17:16)
[2016-11-17] MEDS ORDERED: OXYCODONE HCL IR 5 MG TAB (IMMEDIATE RELEASE) PO PRN (17:30)
[2016-11-17] MEDS ORDERED: ALBUTEROL HFA 8 GM INHALER INH PRN (17:30)
[2016-11-17] MEDS ORDERED: CONSULT PHARMACY STA ×2 (17:34)
[2016-11-17 18:44] VITALS: BP 168/97; PULSE 106; TEMP 36.8; O2SAT 97; Ht 182.9 cm; Wt 87.8 kg
--- NOTE | 2016-11-17 18:53 | Progress Note ---
Progress Note Date of Service Nov 17, 2016. Progress Note Patient was seen and evaluated with SHERICE Montes. Patient comes in with c/o chest tightness and elevated BP. Has chest tightness, cough with mild sputum, SOB x 2 days. C/o chills, night sweats but no fever. No urinary complaints, diarrhea, abdominal pain. EXAM: Gen- AAOX3, no distress Neck- No JVD Lungs- Air entry decreased on Right side; Rhonchi Heart- Sinus tachycardia Ext- no edema Skin- no rash ASSESSMENT/PLAN: This is a 51 year old male with a PMH of HIV with peripheral neuropathy, R internal carotid artery stenosis with multiple and recurrent TIAs, hx. of CVA, possible hx. of LA as per patient, hx. of migraines, chronic pain on long-term narcotics, depression/anxiety, anal dysplasia s/p polyp removal, COPD and current tobacco use, HTN--> comes with chest tightness, SOB, cough with sputum. SEPSIS SECONDARY TO RIGHT UPPER LOBE PNEUMONIA In the setting of Immunodeficiency with HIV -CXR/CT chest - new pulmonary nodular opacities in RUL compared to CXR during last admission. Was treated with levofloxacin during last admission for SIRS but no obvious source of infection was identified as CT scan chest/CXR were negative too. Stress test was done which was negative. -With CD4 in 300s, likely bacterial pneumonia. If no improvement and with nodular opacities, may need to consider HIV associated infections -S/P IV Vancomycin, Aztreonam, Levofloxacin. Will continue for now -Nebs QID -ID consulted -F/up blood cultures, sputum culture HTN- Slightly elevated -Continue with home medications and monitor COPD Current Tobacco Use -No signs of exacerbation -Continue with Nebs QID and monitor PERIPHERAL NEUROPATHY Chronic Pain and on long-term narcotics -Will avoid any IV narcotics, especially for neuropathy. Got IV Dilaudid in ER for headache, which he says is helped, would avoid it. -Continue with Fentanyl and oxycodone PRN as at home -Follows up with outpatient pain management, and should follow-up with them if pain is not controlled HX OF RECURRENT TIAS Complete Occlusion of R carotid -continue Plavix + statin HX OF ANAL DYSPLASIA -To have f/u colonoscopy as outpatient DVT ppx Lovenox SQ DISPOSITION Admit to tele
--- NOTE | 2016-11-17 18:54 | History and Physical ---
History & Physical Date & Time of Service: Nov 17, 2016 at 17:21 Chief Complaint: Chest Discomfort Primary Care Physician: Guillermo Burdick M.D. History of Present Illness Source: patient, hospital records This is a 51 y/o male with PMH of HIV, chronic pain due to neuropathy, COPD, current smoker, history of CVA, recurrent TIAs, SAÚL stenosis, hypertension, and other problems listed below who presents to the ED with elevated BP and chest tightness. Patient was recently admitted to [facility] October 2015 for leukocytosis , possible pulmonary infected treated with Levaquin, chest tightness unlikely ACS with negative stress test. His CD4 count was 337 last admission. He was seen by ID last admission and was supposed to f/u with Dr. Blount but this was not done yet. Patient states he was feeling better after discharge except had persistent SOB which improves with Duoneb use. Then for past 2 days he has chest tightness on the left side, non-radiating, which is constant unrelated to exertion, cough, position. He states it is similar to his past chest pain. Patient reports associated subjective warmth, diaphoresis, shaking chills, cough with worsened sputum from baseline- thick green/brown color. He additionally notes for past 2 days at home his BP is elevated to 170s systolic and HR was up to 110s this morning. He did sense palpitations. He reports having an occipital PATTERSON which resolved with Dilaudid in ER. Had nausea and poor appetite today. Denies rhinorrhea, sore throat, abdominal pain, diarrhea, urinary changes, syncope, acute focal neurologic symptoms. No missed medication doses. Past Medical/Surgical History Medical Problems: (1) ? H/o AL Status: Chronic (2) Anal dysplasia Status: Chronic (3) Anxiety Status: Chronic (4) AVM (arteriovenous malformation) brain Status: Chronic (5) Carotid stenosis Permanent Comment: 03/06/15-SAÚL occlusion, LICA with 50-59% stenosis Status: Chronic (6) Cerebritis Status: Resolved (7) COPD (chronic obstructive pulmonary disease) Status: Chronic (8) Depression Status: Chronic (9) Dyslipidemia Status: Chronic (10) History of alcohol abuse Status: Resolved (11) History of CVA (cerebrovascular accident) Permanent Comment: in setting of right carotid artery thrombosis Status: Chronic (12) Human immunodeficiency virus infection Status: Chronic (13) Hypertension Status: Chronic (14) Ischemic stroke Status: Resolved (15) Migraine Status: Chronic (16) Polyp of colon Status: Chronic (17) Sepsis Status: Resolved Family History Diabetes mellitus FATHER MOTHER FH: cancer FATHER (lung CA) Hypertension FATHER Social History Smoking Status: Current Some Day Smoker Drug Use: none Marital Status: Housing status: lives with significant other Occupational Status: unemployed Allergies Coded Allergies: Penicillins (Verified Allergy, Severe, ANAPHYLAXIS, 10/25/16) Azithromycin (Verified Allergy, Intermediate, RASH AND SKIN PEELING, ) Niacin (Verified Allergy, Intermediate, RASH, 10/25/16) Sulfa Antibiotics (Verified Allergy, Unknown, "ITCHY RASH", 10/25/16) Tramadol (Verified Allergy, Unknown, RASH, 10/25/16) Gabapentin (Verified Adverse Reaction, Intermediate, hallucinations, ) Shellfish (Verified Adverse Reaction, Intermediate, gi symptoms, 10/25/16) Topiramate (Verified Adverse Reaction, Intermediate, NAUSEA, 10/25/16) Meloxicam (Verified Adverse Reaction, Unknown, GI SYMPTOMS, 10/25/16) Home Medications Scheduled Amitriptyline Hcl (Amitriptyline Hcl), 50 MG PO HS Aspirin (Aspirin Ec), 81 MG PO QAM Atorvastatin (Lipitor), 40 MG PO DAILY Budesonide/Formoterol Fumarate (Symbicort 160/4.5 Inhaler), 2 PUFFS INH BID Chlorthalidone (Hygroton), 25 MG PO QAM Clopidogrel (Plavix), 75 MG PO QAM Darunavir Ethanolate (Prezista), 600 MG PO BID Fentanyl (Fentanyl), 25 MCG TD Q72HRS Fentanyl (Fentanyl), 12 MCG TOP Q72H Folic Acid (Folic Acid), 1 MG PO QAM Losartan Potassium (Cozaar), 100 MG PO QAM Metoprolol Tartrate (Metoprolol Tartrate), 100 MG PO BID Raltegravir Potassium (Isentress), 400 MG PO BID Ritonavir (Norvir), 100 MG PO BID Scheduled PRN Albuterol Hfa (Ventolin Hfa), 2 PUFFS INH Q6H PRN for Shortness of Breath Furosemide (Furosemide), 20 MG PO DAILY PRN for swelling Ipratropium-Albuterol (Duoneb), 1 TREATMENT INH Q4H PRN for SOB/Wheezing Ondansetron Hcl (Zofran), 4 MG PO Q6 PRN for Nausea Oxycodone Hcl (Oxycodone Hcl), 1 CAP PO TID PRN for Pain Review of Systems Ten systems reviewed and negative except as noted in HPI. Physical Exam Vital Signs Date Time Temp Pulse Resp B/P (MAP) Pulse Ox O2 Delivery O2 Flow Rate FiO2 11/17/16 17:05 115 18 152/93 97 Room Air 11/17/16 16:00 114 21 140/84 95 Room Air 11/17/16 15:50 118 123/76 96 11/17/16 15:22 135/66 11/17/16 15:17 131/91 11/17/16 15:14 128 19 97 11/17/16 15:13 129 25 96 11/17/16 15:12 143/88 11/17/16 15:08 128 22 97 11/17/16 15:07 113/86 11/17/16 15:03 133 20 98 11/17/16 15:02 129/94 11/17/16 14:58 136 21 97 11/17/16 14:57 119/87 11/17/16 14:53 140 22 96 11/17/16 14:53 141 11/17/16 14:52 112/74 11/17/16 14:47 142 20 112/76 96 Room Air 11/17/16 14:34 97 Room Air 11/17/16 14:34 36.4 138 20 132/77 97 Room Air 11/17/16 14:34 97 Room Air General Appearance: WD/WN, no apparent distress Head: normocephalic, atraumatic Eyes: normal inspection, PERRL, EOMI, sclerae normal ENT: hearing grossly normal, pharynx normal, + pertinent finding (dry oral mucosa) Neck: supple, trachea midline Respiratory/Chest: normal breath sounds, no respiratory distress, no accessory muscle use, + pertinent finding (few scattered rhonchi on right side. No wheezing. + reproducible chest wall tenderness left lateral chest) Cardiovascular: no murmur, normal peripheral pulses, + tachycardia (HR 100s, regular) Abdomen/GI: normal bowel sounds, non tender, soft Extremities/Musculoskelatal: no calf tenderness, no pedal edema Neurologic/Psych: alert, normal mood/affect, oriented x 3, + pertinent finding (no focal deficit on gross examination) Skin: normal color, warm/dry, no rash Diagnostics Laboratory Results Results Past 24 Hours Test 11/17/16 14:30 11/17/16 17:03 Range/Units White Blood Count 10.98 4.8-10.8 K/uL Red Blood Count 4.66 4.7-6.1 M/uL Hemoglobin 14.0 14.0-18.0 g/dL Hematocrit 40.2 42-52 % Mean Corpuscular Volume 86.3 80-100 fL Mean Corpuscular Hemoglobin 30.0 25-34 pg Mean Corpuscular Hemoglobin Concent 34.8 32-36 g/dl Platelet Count 208 130-400 K/uL Mean Platelet Volume 9.2 7.4-10.4 fL Neutrophils (%) (Auto) 72.6 % Lymphocytes (%) (Auto) 19.8 % Monocytes (%) (Auto) 5.2 % Eosinophils (%) (Auto) 0.2 % Basophils (%) (Auto) 0.7 % Neutrophils # (Auto) 7.98 1.4-6.5 K/uL Lymphocytes # (Auto) 2.17 1.2-3.4 K/uL Monocytes # (Auto) 0.57 0.11-0.59 K/uL Eosinophils # (Auto) 0.02 0-0.5 K/uL Basophils # (Auto) 0.08 0-0.2 K/uL RDW Standard Deviation 46.2 36.4-46.3 fL RDW Coefficient of Variation 14.7 11.5-14.5 % Immature Granulocyte % (Auto) 1.5 % Immature Granulocyte # (Auto) 0.16 0.00-0.02 K/uL Sodium Level 139 136-145 mmol/L Potassium Level 3.7 3.5-5.1 mmol/L Chloride Level 103 98-107 mmol/L Carbon Dioxide Level 22 21-32 mmol/L Anion Gap 14.0 3-11 mmol/L Blood Urea Nitrogen 11 7-18 mg/dl Creatinine 1.10 0.60-1.40 mg/dl Est Creatinine Clear Calc Drug Dose 86.2 ml/min Estimated GFR () 89.0 Estimated GFR (Non- 76.8 BUN/Creatinine Ratio 9.5 10-20 Random Glucose 176 70-99 mg/dl Calcium Level 9.6 8.5-10.1 mg/dl Total Creatine Kinase 58 39-308 U/L Creatine Kinase MB 0.8 0.5-3.6 ng/ml Creatine Kinase MB Ratio 1.4 0-3.0 Troponin I < 0.015 0-0.045 ng/ml Chemistry Specimen Hemolysis Microbiology Results 11/17/16 Blood Culture, Received Pending 11/17/16 Blood Culture, Received Pending Diagnostic Radiology CHEST ONE VIEW PORTABLE CLINICAL HISTORY: chest pain dyspnea COMPARISON STUDY: 11/04/2016 FINDINGS: The bones soft tissues and hemidiaphragms are normal. The cardiomediastinal silhouette is normal. The lungs are clear. The pulmonary vasculature is normal. IMPRESSION: Negative chest. CT ANGIOGRAPHY OF THE CHEST, PULMONARY EMBOLUS PROTOCOL CLINICAL HISTORY: Worsening central chest pain. Tachycardia. COMPARISON STUDY: Chest CT October 25, 2016. TECHNIQUE: Following IV administration of 91 mL of Optiray-320, helical axial images of the chest were obtained utilizing the pulmonary embolus protocol. Maximal intensity projections and sagittal and coronal reformats were viewed on an independent 3D workstation. IV contrast was administered without complication. CT DOSE: 987.07 mGy.cm FINDINGS: No pulmonary emboli are identified although the subsegmental arteries are suboptimally assessed due to respiratory motion. There is mild cardiomegaly and mild dilatation of the ascending aorta which measures 4 cm at the level of the main pulmonary artery. There is no evidence of thoracic aortic dissection. There is no pericardial effusion. Moderate coronary artery calcification is present. There are no enlarged thoracic lymph nodes. There has been interval development of several ill-defined nodular opacities within the right upper lobe since CT of October 25, 2016. There is no pneumothorax or pleural effusion. Groundglass opacities favor atelectasis. Bony thorax and upper abdomen are unremarkable. IMPRESSION: 1. No pulmonary emboli identified although the subsegmental pulmonary arteries suboptimally assessed due to respiratory motion. 2. Interval development of several nodular opacities within the right upper lobe since CT of October 25, 2016 suggestive of an infectious process such as bronchiolitis/bronchopneumonia. 3. Mild cardiomegaly and mild dilatation of the ascending aorta. No thoracic aortic dissection. ULTRASOUND RIGHT LOWER EXTREMITY VENOUS CLINICAL HISTORY: Right leg swelling. COMPARISON STUDY: No priors. TECHNIQUE: Real-time, grayscale, and color Doppler sonography of the deep veins of the right lower extremity was performed from the inguinal crease to the calf. Compression and augmentation were utilized. FINDINGS: There is no sonographic evidence of deep venous thrombosis identified in the right lower extremity. The common femoral, superficial femoral, and popliteal veins are patent and normally compressible. The greater saphenous vein and the profunda femoris vein at the junction with the common femoral vein are clear. The visualized calf veins are patent. IMPRESSION: There is no sonographic evidence of deep venous thrombosis identified in the right lower extremity. CT HEAD WITHOUT CONTRAST (CT) CLINICAL HISTORY: Severe headache COMPARISON STUDY: 10/22/2016 TECHNIQUE: Axial CT of the brain is performed from the vertex to the skull base. IV contrast was not administered for this examination. CT DOSE: FINDINGS: No intra or extra-axial mass lesions are visualized. There is no CT evidence of acute cortical infarction. There is no evidence of midline shift. There is no acute hemorrhage. No calvarial fractures are visualized. There are minimal white matter hypodensities likely on a small vessel basis. There is an old right parietal infarct. There is no evidence of pathologic ventricular dilatation. There is no evidence of acute sinusitis IMPRESSION: Old right parietal lobe infarct. No acute intracranial findings. EKG sinus tachycardia, 139 bpm, incomplete RBBB, when compared to prior EKG HR increased by 53 bpm, as per cardiology read, also reviewed by me Impression Assessment and Plan PNEUMONIA Possible HCAP, immunocompromised due to HIV Recently hospitalized in [facility] October 2015 with SIRS, possible pulmonary source, treated with Levaquin Afebrile; mild leukocytosis (WBC approx 11K with left shift); + tachycardia; no hypotension; lactic acid 3.8 -> check repeat lactic acid Saturating well on RA CTA chest- neg for PE, + Interval development of several nodular opacities within the right upper lobe since CT of October 25, 2016 suggestive of an infectious process such as bronchiolitis/bronchopneumonia Blood cultures pending Check sputum culture Received Levaquin, Aztreonam, vancomycin in ER Will continue current broad spectrum abx Consult ID SINUS TACHYCARDIA Likely due to infection, dehydration- clinically dry Improving with IVF's- 2 liter boluses NSS given in ER Continue IVFs at 100 mL/hour ATYPICAL CP Unlikely to be cardiac related: + reproducible chest wall tenderness; recent workup for same pain in October 2016- stress test negative Troponin negative EKG- no evidence of ischemia Monitor in telemetry Will not pursue further cardiac testing HIV On last admission, 10/25/16 CD4 count was 337, HIV-1 RNA was 21 Continue home HIV medications Consult ID COPD Not in exacerbation PRN Xopenex/ Atrovent nebs Continue Symbicort Counselled to quit smoking HYPERTENSION BP intermittently elevated in ER Continue metoprolol tartrate and losartan Hold chlorthalidone and PRN Lasix while hydrating patient H/O CVA, HX RECURRENT TIA'S Known complete occlusion of SAÚL Continue aspirin, Plavix, statin CHRONIC PAIN/ PERIPHERAL NEUROPATHY Follows with pain management Continue home dose of fentanyl and oxycodone DVT PROPHYLAXIS Lovenox SQ FULL CODE DISPOSITION Admit to telemetry Lives with Follows with Dr. Burdick for primary care Patient seen in collaboration with Dr. Ninoska Shaw. Please see her addendum. VTE Prophylaxis VTE Risk Assessment Done? Y/N: Yes Risk Level: Moderate
[2016-11-17] MEDS ORDERED: VANCOMYCIN CONSULT ACTIVE PRN (19:00)
[2016-11-17] MEDS ORDERED: AZTREONAM CONSULT ACTIVE PRN ×2 (19:00)
[2016-11-17] MEDS: SODIUM CHLORIDE 0.9% 1000ML 1,000 ML IV SCH (19:27)
[2016-11-17] MEDS: OXYCODONE HCL IR 5 MG TAB (IMMEDIATE RELEASE) PO PRN (19:52)
[2016-11-17] MEDS ORDERED: FENTANYL PATCH REMOVE & WASTE SCH ×2 (19:59)
[2016-11-17] MEDS ORDERED: FENTANYL 25 MCG/HR TDSY TD SCH (20:00)
[2016-11-17] MEDS ORDERED: FENTANYL 12 MCG/HR TDSY TD SCH (20:00)
[2016-11-17 20:52] VITALS: PULSE 102; O2SAT 95
[2016-11-17] MEDS: LEVALBUTEROL 1.25MG/0.5ML NEB INH PRN (20:52)
[2016-11-17] MEDS: IPRATROPIUM BROMIDE NEB SOLN 0.02% 2.5 ML VIAL INH PRN (20:52)
--- NOTE | 2016-11-17 20:55 | Pharmacy Progress Note ---
Pharmacy Antibiotic Consult Date of Service: Nov 17, 2016. Pharmacy Dosing Scope Pharmacy is consulted to initiate Vancomycin/Aztreonam IV dosing therapy, order appropriate labs and adjust drug dose/frequency. Subjective The patient is a 51 year old male admitted on Nov 17, 2016 at 16:47 with pneumonia and possible HCAP. Objective Height (Feet): 6 Height (Inches): 0.00 Weight (Kilograms): 85.800 Lab Results (24hrs): Test 11/17/16 14:30 11/17/16 17:03 11/17/16 19:10 11/17/16 19:35 White Blood Count 10.98 K/uL (4.8-10.8) Red Blood Count 4.66 M/uL (4.7-6.1) Hemoglobin 14.0 g/dL (14.0-18.0) Hematocrit 40.2 % (42-52) Mean Corpuscular Volume 86.3 fL (80-100) Mean Corpuscular Hemoglobin 30.0 pg (25-34) Mean Corpuscular Hemoglobin Concent 34.8 g/dl (32-36) Platelet Count 208 K/uL (130-400) Mean Platelet Volume 9.2 fL (7.4-10.4) Neutrophils (%) (Auto) 72.6 % Lymphocytes (%) (Auto) 19.8 % Monocytes (%) (Auto) 5.2 % Eosinophils (%) (Auto) 0.2 % Basophils (%) (Auto) 0.7 % Neutrophils # (Auto) 7.98 K/uL (1.4-6.5) Lymphocytes # (Auto) 2.17 K/uL (1.2-3.4) Monocytes # (Auto) 0.57 K/uL (0.11-0.59) Eosinophils # (Auto) 0.02 K/uL (0-0.5) Basophils # (Auto) 0.08 K/uL (0-0.2) RDW Standard Deviation 46.2 fL (36.4-46.3) RDW Coefficient of Variation 14.7 % (11.5-14.5) Immature Granulocyte % (Auto) 1.5 % Immature Granulocyte # (Auto) 0.16 K/uL (0.00-0.02) Sodium Level 139 mmol/L (136-145) Potassium Level 3.7 mmol/L (3.5-5.1) Chloride Level 103 mmol/L (98-107) Carbon Dioxide Level 22 mmol/L (21-32) Anion Gap 14.0 mmol/L (3-11) Blood Urea Nitrogen 11 mg/dl (7-18) Creatinine 1.10 mg/dl (0.60-1.40) Est Creatinine Clear Calc Drug Dose 86.2 ml/min Estimated GFR () 89.0 Estimated GFR (Non- 76.8 BUN/Creatinine Ratio 9.5 (10-20) Random Glucose 176 mg/dl (70-99) Calcium Level 9.6 mg/dl (8.5-10.1) Total Creatine Kinase 58 U/L (39-308) Creatine Kinase MB 0.8 ng/ml (0.5-3.6) Creatine Kinase MB Ratio 1.4 (0-3.0) Troponin I < 0.015 ng/ml (0-0.045) Chemistry Specimen Hemolysis Lactic Acid Level 3.8 mmol/L (0.4-2.0) 3.5 mmol/L (0.4-2.0) Micro Results: Item Value Date Time Blood Culture Received 11/17/16 1710 Blood Pending Blood Culture Received 11/17/16 1703 Blood Pending Recent Pertinent Medications Item Value Date Time Aztreonam 2000 mg/ 110 ml @ 100 mls/hr 11/17/16 1619 Dextrose ONE STAT/IV 11/17/16 1713 Levofloxacin 750 mg 11/17/16 1615 (Levaquin / D5W) NOW ONCE/IV 11/17/16 1923 Vancomycin HCl 270 ml @ 125 mls/hr 11/17/16 1609 1000 mg/Sodium NOW STAT/IV 11/17/16 1714 Chloride Assessment & Plan [age] yo male immunocompromised male empirically starting IV Aztreonam and IV Vancomycin for possible HCAP Loading dose: Vancomycin 1000 mg (11.6 mg/kg) IV X 1 dose in the Emergency Department then: Vancomycin 1400 mg IV every 12 hours. Goal peak level estimate: between 30 - 40 mcg/mL. Goal trough level estimate: between 15 - 20 mcg/mL. Vancomycin trough level has been ordered for: 11/19/16 before the noon dose. Pharmacy will continue to follow and will adjust dose/frequency as necessary. Thank you
[2016-11-17 20:59] LABS: URINE APPEARANCE CLEAR (CLEAR); URINE BILIRUBIN NEG (NEG); URINE COLOR YELLOW; URINE EPITHELIAL CELL AUTO 0-5 /lpf (0-5); URINE NITRITE NEG (NEG); URINE PH 5.5 (4.5-7.5); URINE SPECIFIC GRAVITY 1.035 (1.000-1.030); UROBILINOGEN NEG (NEG); ZZUR CULT IF INDIC CLEAN CATCH NO
[2016-11-17] MEDS ORDERED: DARUNAVIR ETHANOLATE 600 MG PO SCH (21:00)
[2016-11-17] MEDS ORDERED: NON-FORMULARY MEDICATION (Ritonavir (Norvir) 100 MG) PO SCH (21:00)
[2016-11-17 21:01] LABS: MANUAL MICROSCOPIC REQUIRED? NO; REVIEW REQ? NO
[2016-11-17] MEDS: BUDESONIDE/FORMOTEROL FUMARATE 160/4.5 60 PUFFS/INHALER INH SCH (21:46)
[2016-11-17] MEDS: RALTEGRAVIR POTASSIUM TAB 400 MG TAB PO SCH (21:46)
[2016-11-17] MEDS: METOPROLOL TARTRATE 100 MG TAB PO SCH (21:47)
[2016-11-17] MEDS: AMITRIPTYLINE HCL 50 MG TAB PO SCH (21:47)
[2016-11-17] MEDS: ENOXAPARIN 40 MG/0.4 ML SYR SC SCH (21:48)
[2016-11-17] MEDS: ACETAMINOPHEN 325 MG TAB PO PRN (22:10)
[2016-11-17 22:42] VITALS: BP 172/97; PULSE 106
[2016-11-17] MEDS ORDERED: BUTALBITAL/ACETAMIN/CAFFEINE TAB PO STA (22:48)
[2016-11-17] MEDS ORDERED: TRAZODONE HCL 50 MG TAB PO ONE (23:00)
--- NOTE | 2016-11-17 23:04 | EMERGENCY ROOM VISIT NOTE ---
History First contact with patient: 14:26 Chief Complaint: CHEST PAIN Stated Complaint: PNEUMONIA, TACHYCARDIA Nursing Triage Summary: Pt arrives to ER via ALS with c/o chest discomfort that began approx 2 days ago. Pt reports chest pain has been off and on for last 2 days, but got increasingly worse starting at 0900 this AM. Pt unable to give a number for the pain, just states he is uncomfortable and it feels like something is squeezing, also reports feeling short of breath. Pt here recently for similar s/s. 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 History of Present Illness The patient is a 51 year old male who presents to the Emergency Room with complaints of chest pain, fever, chills and headache. Chest pain started approximately 9am this morning, central tightness worse on exertion, no radiation. Associated sweating and shortness of breath but no nausea. Headache is bilateral a the front and back, aching pain, feels it is similar to his previous migraines however has not experienced these for a few years. He was recently admitted in October with similar symptoms although he reports the chest pain this time as different from previously. 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 Review of Systems Positive for orthopnea and PND Positive for fevers and chills every 1-2 days which he has had since discharged in October. 1-2 days of right calf swelling and pain See HPI for pertinent positives & negatives. A total of 10 systems reviewed and were otherwise negative. Past Medical/Surgical History Medical Problems: (1) ? H/o VA (2) Anal dysplasia (3) Anxiety (4) AVM (arteriovenous malformation) brain (5) Carotid stenosis (6) Cerebritis (7) COPD (chronic obstructive pulmonary disease) (8) Depression (9) Dyslipidemia (10) Headache (11) History of alcohol abuse (12) History of CVA (cerebrovascular accident) (13) Human immunodeficiency virus infection (14) Hypertension (15) Ischemic stroke (16) Leukocytosis (17) Migraine (18) Numbness of left hand (19) Pneumonia (20) Polyp of colon (21) Sepsis (22) Syncope (23) Tachycardia Family History Diabetes mellitus FATHER MOTHER FH: cancer FATHER (lung CA) Hypertension FATHER Social History Smoking Status: Current Some Day Smoker Alcohol Use: none Drug Use: none Marital Status: Housing Status: lives with family Occupation Status: unemployed Current/Historical Medications Scheduled Amitriptyline Hcl (Amitriptyline Hcl), 50 MG PO HS Aspirin (Aspirin Ec), 81 MG PO QAM Atorvastatin (Lipitor), 40 MG PO DAILY Budesonide/Formoterol Fumarate (Symbicort 160/4.5 Inhaler), 2 PUFFS INH BID Chlorthalidone (Hygroton), 25 MG PO QAM Clopidogrel (Plavix), 75 MG PO QAM Darunavir Ethanolate (Prezista), 600 MG PO BID Fentanyl (Fentanyl), 25 MCG TD Q72HRS Fentanyl (Fentanyl), 12 MCG TOP Q72H Folic Acid (Folic Acid), 1 MG PO QAM Losartan Potassium (Cozaar), 100 MG PO QAM Metoprolol Tartrate (Metoprolol Tartrate), 100 MG PO BID Raltegravir Potassium (Isentress), 400 MG PO BID Ritonavir (Norvir), 100 MG PO BID Scheduled PRN Albuterol Hfa (Ventolin Hfa), 2 PUFFS INH Q6H PRN for Shortness of Breath Furosemide (Furosemide), 20 MG PO DAILY PRN for swelling Ipratropium-Albuterol (Duoneb), 1 TREATMENT INH Q4H PRN for SOB/Wheezing Ondansetron Hcl (Zofran), 4 MG PO Q6 PRN for Nausea Oxycodone Hcl (Oxycodone Hcl), 1 CAP PO TID PRN for Pain Allergies Coded Allergies: Penicillins (Verified Allergy, Severe, ANAPHYLAXIS, 10/25/16) Azithromycin (Verified Allergy, Intermediate, RASH AND SKIN PEELING, ) Niacin (Verified Allergy, Intermediate, RASH, 10/25/16) Sulfa Antibiotics (Verified Allergy, Unknown, "ITCHY RASH", 10/25/16) Tramadol (Verified Allergy, Unknown, RASH, 10/25/16) Gabapentin (Verified Adverse Reaction, Intermediate, hallucinations, ) Shellfish (Verified Adverse Reaction, Intermediate, gi symptoms, 10/25/16) Topiramate (Verified Adverse Reaction, Intermediate, NAUSEA, 10/25/16) Meloxicam (Verified Adverse Reaction, Unknown, GI SYMPTOMS, 10/25/16) Physical Exam Vital Signs Date Time Temp Pulse Resp B/P (MAP) Pulse Ox O2 Delivery O2 Flow Rate FiO2 11/17/16 16:00 114 21 140/84 95 Room Air 11/17/16 15:50 118 123/76 96 11/17/16 15:22 135/66 11/17/16 15:17 131/91 11/17/16 15:14 128 19 97 11/17/16 15:13 129 25 96 11/17/16 15:12 143/88 11/17/16 15:08 128 22 97 11/17/16 15:07 113/86 11/17/16 15:03 133 20 98 11/17/16 15:02 129/94 11/17/16 14:58 136 21 97 11/17/16 14:57 119/87 11/17/16 14:53 140 22 96 11/17/16 14:53 141 11/17/16 14:52 112/74 11/17/16 14:47 142 20 112/76 96 Room Air 11/17/16 14:34 97 Room Air 11/17/16 14:34 36.4 138 20 132/77 97 Room Air 11/17/16 14:34 97 Room Air Pain Rating (0-10): 8.0 Physical Exam VITAL SIGNS: were reviewed as above, patient is tachycardic GENERAL: appears in moderate distress from chest and headache pain, unkept SKIN: Warm dry and pink, no rashes HEAD: Normocephalic and atraumatic EYES: extraocular muscles intact, pupils equal and reactive to light OROPHARYNX: non erythematous, clear and moist NECK: Supple, no adenopathy, pain on palpation on cervical paraspinal muscles LUNGS: Right basal crackles, no wheezing, no accessory muscle use HEART: Tachycardia, normal rhythm, heart sounds 1+2, no murmurs ABDOMEN: Soft and nontender, bowel sounds normal BACK: no CVA tenderness, no central spinal tenderness EXTREMITIES: Warm and well perfused, no calf tenderness/swelling, no pedal edema. NEUROLOGICALLY: Awake alert and oriented. Upper and lower limb motor and sensory exam acutely unchanged. Notes right stocking distribution painful and numbness neuropahty below his mid bermudez. Cranial nerves 2-12 intact. Cerebellar testing is within normal limits. There is no nystagmus. There is no facial droop. Speech is clear. Vision is grossly normal. MUSCULOSKELETAL: Good muscle tone. No evidence of trauma Medical Decision & Procedures ER Provider Diagnostic Interpretation: CHEST ONE VIEW PORTABLE CLINICAL HISTORY: chest pain dyspnea COMPARISON STUDY: 11/04/2016 FINDINGS: The bones soft tissues and hemidiaphragms are normal. The cardiomediastinal silhouette is normal. The lungs are clear. The pulmonary vasculature is normal. IMPRESSION: Negative chest. Electronically signed by: James Kebede M.D. 11/17/2016 2:49 PM Dictated Date/Time: 11/17/2016 2:[address] ANGIOGRAPHY OF THE CHEST, PULMONARY EMBOLUS PROTOCOL CLINICAL HISTORY: Worsening central chest pain. Tachycardia. COMPARISON STUDY: Chest CT October 25, 2016. TECHNIQUE: Following IV administration of 91 mL of [id number]-[id number], helical axial images of the chest were obtained utilizing the pulmonary embolus protocol. Maximal intensity projections and sagittal and coronal reformats were viewed on an independent 3D workstation. IV contrast was administered without complication. CT DOSE: 987.07 mGy.cm FINDINGS: No pulmonary emboli are identified although the subsegmental arteries are suboptimally assessed due to respiratory motion. There is mild cardiomegaly and mild dilatation of the ascending aorta which measures 4 cm at the level of the main pulmonary artery. There is no evidence of thoracic aortic dissection. There is no pericardial effusion. Moderate coronary artery calcification is present. There are no enlarged thoracic lymph nodes. There has been interval development of several ill-defined nodular opacities within the right upper lobe since CT of October 25, 2016. There is no pneumothorax or pleural effusion. Groundglass opacities favor atelectasis. Bony thorax and upper abdomen are unremarkable. IMPRESSION: 1. No pulmonary emboli identified although the subsegmental pulmonary arteries suboptimally assessed due to respiratory motion. 2. Interval development of several nodular opacities within the right upper lobe since CT of October 25, 2016 suggestive of an infectious process such as bronchiolitis/bronchopneumonia. 3. Mild cardiomegaly and mild dilatation of the ascending aorta. No thoracic aortic dissection. Electronically signed by: Gabo Moore M.D. 11/17/2016 3:54 PM Dictated Date/Time: 11/17/2016 3:44 PM ULTRASOUND RIGHT LOWER EXTREMITY VENOUS CLINICAL HISTORY: Right leg swelling. COMPARISON STUDY: No priors. TECHNIQUE: Real-time, grayscale, and color Doppler sonography of the deep veins of the right lower extremity was performed from the inguinal crease to the calf. Compression and augmentation were utilized. FINDINGS: There is no sonographic evidence of deep venous thrombosis identified in the right lower extremity. The common femoral, superficial femoral, and popliteal veins are patent and normally compressible. The greater saphenous vein and the profunda femoris vein at the junction with the common femoral vein are clear. The visualized calf veins are patent. IMPRESSION: There is no sonographic evidence of deep venous thrombosis identified in the right lower extremity. Electronically signed by: Nico Guerra M.D. 11/17/2016 4:44 PM Dictated Date/Time: 11/17/2016 4:43 PM Laboratory Results 11/17/16 14:30 Red Blood Count 4.66, Mean Corpuscular Volume 86.3, Mean Corpuscular Hemoglobin 30.0, Mean Corpuscular Hemoglobin Concent 34.8, Mean Platelet Volume 9.2, Neutrophils (%) (Auto) 72.6, Lymphocytes (%) (Auto) 19.8, Monocytes (%) (Auto) 5.2, Eosinophils (%) (Auto) 0.2, Basophils (%) (Auto) 0.7, Neutrophils # (Auto) 7.98, Lymphocytes # (Auto) 2.17, Monocytes # (Auto) 0.57, Eosinophils # (Auto) 0.02, Basophils # (Auto) 0.08 11/17/16 14:30 Test 11/17/16 14:30 White Blood Count 10.98 K/uL (4.8-10.8) Red Blood Count 4.66 M/uL (4.7-6.1) Hemoglobin 14.0 g/dL (14.0-18.0) Hematocrit 40.2 % (42-52) Mean Corpuscular Volume 86.3 fL (80-100) Mean Corpuscular Hemoglobin 30.0 pg (25-34) Mean Corpuscular Hemoglobin Concent 34.8 g/dl (32-36) Platelet Count 208 K/uL (130-400) Mean Platelet Volume 9.2 fL (7.4-10.4) Neutrophils (%) (Auto) 72.6 % Lymphocytes (%) (Auto) 19.8 % Monocytes (%) (Auto) 5.2 % Eosinophils (%) (Auto) 0.2 % Basophils (%) (Auto) 0.7 % Neutrophils # (Auto) 7.98 K/uL (1.4-6.5) Lymphocytes # (Auto) 2.17 K/uL (1.2-3.4) Monocytes # (Auto) 0.57 K/uL (0.11-0.59) Eosinophils # (Auto) 0.02 K/uL (0-0.5) Basophils # (Auto) 0.08 K/uL (0-0.2) RDW Standard Deviation 46.2 fL (36.4-46.3) RDW Coefficient of Variation 14.7 % (11.5-14.5) Immature Granulocyte % (Auto) 1.5 % Immature Granulocyte # (Auto) 0.16 K/uL (0.00-0.02) Anion Gap 14.0 mmol/L (3-11) Est Creatinine Clear Calc Drug Dose 86.2 ml/min Estimated GFR () 89.0 Estimated GFR (Non- 76.8 BUN/Creatinine Ratio 9.5 (10-20) Calcium Level 9.6 mg/dl (8.5-10.1) Total Creatine Kinase 58 U/L (39-308) Creatine Kinase MB 0.8 ng/ml (0.5-3.6) Creatine Kinase MB Ratio 1.4 (0-3.0) Troponin I < 0.015 ng/ml (0-0.045) Chemistry Specimen Hemolysis Medications Administered Medications (Trade) Dose Ordered Sig/Josh Route Start Time Stop Time Status Last Admin Dose Admin Sodium Chloride 1,000 ml @ 999 mls/hr Q1H1M STAT IV 11/17/16 14:38 11/17/16 15:08 DC 11/17/16 15:05 999 MLS/HR Nitroglycerin (Nitrostat Tab) 0.4 mg STK-MED ONCE .ROUTE 11/17/16 14:44 11/17/16 14:45 DC 11/17/16 14:45 0.4 MG Hydromorphone HCl (Dilaudid Inj) 1 mg NOW STAT IV 11/17/16 15:07 11/17/16 15:08 DC 11/17/16 15:10 1 MG Ondansetron HCl (Zofran Inj) 4 mg NOW STAT IV 11/17/16 15:07 11/17/16 15:08 DC 11/17/16 15:10 4 MG Ranitidine HCl (zANTac IV) 50 mg NOW STAT IV 11/17/16 15:35 11/17/16 15:36 DC 11/17/16 16:11 50 MG Sodium Chloride 1,000 ml @ 999 mls/hr Q1H1M IV 11/17/16 16:15 11/17/16 18:49 DC 11/17/16 17:05 999 MLS/HR Levofloxacin (Levaquin / D5W) 750 mg NOW ONCE IV 11/17/16 16:15 11/17/16 16:16 DC 11/17/16 19:23 750 MG Vancomycin HCl 1000 mg/Sodium Chloride 270 ml @ 125 mls/hr NOW STAT IV 11/17/16 16:09 11/17/16 18:18 DC 11/17/16 17:14 125 MLS/HR Aztreonam 2000 mg/ Dextrose 110 ml @ 100 mls/hr ONE STAT IV 11/17/16 16:19 11/17/16 17:24 DC 11/17/16 17:13 100 MLS/HR ECG Indication: chest pain Rate (beats per minute): 139 Rhythm: sinus tachycardia Findings: no acute ischemic change ED Course Complete history and physical examination performed. Cardiac labs, nitro x3 PRN for ongoing pain, CXR, CT for PE ordered Discussed case with Dr Turner and agreed with above management in addition prescribed dilaudid, zofran and ordered CT head and US doppler right leg for DVT After CT results showed several ill-defined nodular opacities within the right upper lobe, blood cultures, lactic acid and antibiotics ordered Dr Turner [facility] with [facility] for admission to hospital. Medical Decision Prior records/ancillary studies reviewed. Triage Nursing notes reviewed. Additional history obtained from patient. The patient's history was concerning for chest pain, chills and headache. Differential diagnosis: Etiologies such as infective, intracranial pathology, cardiac ischemia, aortic dissection, pulmonary embolism, pneumonia, pneumothorax, musculoskeletal, infections, pericarditis, myocarditis, esophageal rupture, gastrointestinal, as well as others were entertained. Physical examination: As above. ER treatment provided: Nitroglycerin 0.1%, Dilaudid + Ondansetron, 1L NSS, Vancomycin, Levaquin and Aztreonam (patient allergic to penicillin) On reassessment the patient felt better. Diagnostic interpretation by me: The electrocardiogram was negative for ischemic changes. The labs revealed mildly elevated WBC, elevated lactic acid. Imaging studies: Chest x-ray as above CT for PE as above Consultation: A consultation was placed with the hospitalist. The case was discussed by Dr Turner. The patient was evaluated in the ER for further treatment. By the evaluation outlined above emergent etiologies such as cardiac ischemia, aortic dissection, pulmonary embolism, pneumonia, pneumothorax, infections, pericarditis, myocarditis, gastrointestinal, as well as others were deemed less likely however cardiac ischemic was not ruled out at this time. Given CT findings with new nodules, immunosuppressed state with HIV and recent potential infection with no true source found concern is of an ongoing infection which was not adequately treated on previous admission The patient was informed about the findings as listed above. All questions were answered. Impression Primary Impression: Chest pain, rule out acute myocardial infarction Additional Impressions: Tachycardia Chills AIDS (acquired immunodeficiency syndrome), CD4 >200 and <500 Departure Information Dispostion Being Evaluated By Hospitalist Condition GOOD Referrals Guillermo Burdick M.D. (PCP) Forms HOME CARE DOCUMENTATION FORM, IMPORTANT VISIT INFORMATION Patient Instructions [facility] Resident Tracking Resident Involvement: Resident Care Provided Care Provided: Adult ED Problem Qualifiers
[2016-11-17] MEDS: VANCOMYCIN INJ 1,400 MG in SODIUM CHLORIDE 0.9% 500ML 500 ML IV SCH (23:36)
[2016-11-17] MEDS: CHECK FENTANYL PATCH PLACEMENT SCH ×2 (23:38→23:49)
[2016-11-17 23:56] VITALS: BP 174/101; PULSE 89; TEMP 36.5; O2SAT 96
[2016-11-18] VITALS (12 sets, daily range): BP systolic 127–182; BP diastolic 74–107; PULSE 82–113; TEMP 36.5–36.9; O2SAT 94–98
[2016-11-18] MEDS: OXYCODONE HCL IR 5 MG TAB (IMMEDIATE RELEASE) PO PRN ×3 (00:34→15:38)
[2016-11-18] MEDS: AZTREONAM 2000 MG in DEXTROSE 5% 100 ML IV SCH ×3 (02:03→17:27)
[2016-11-18] MEDS: SODIUM CHLORIDE 0.9% 1000ML 1,000 ML IV SCH ×3 (04:30→23:27)
[2016-11-18 06:27] LABS: HEMATOCRIT 38.9 % (42-52); MEAN CELL VOLUME 86.8 fL (80-100); MEAN CORPUSCULAR HEMOGLOBIN 28.8 pg (25-34); MEAN CORPUSCULAR HGB CONC 33.2 g/dl (32-36); MEAN PLATELET VOLUME 9.1 fL (7.4-10.4); PLATELET COUNT 207 K/uL (130-400); RED BLOOD COUNT 4.48 M/uL (4.7-6.1); WHITE BLOOD COUNT 12.31 K/uL (4.8-10.8)
[2016-11-18] MEDS: CHECK FENTANYL PATCH PLACEMENT SCH ×6 (08:16→23:27)
[2016-11-18] MEDS: BUDESONIDE/FORMOTEROL FUMARATE 160/4.5 60 PUFFS/INHALER INH SCH ×2 (08:16→20:02)
[2016-11-18] MEDS: LOSARTAN POTASSIUM 50 MG TAB PO SCH (08:17)
[2016-11-18] MEDS: ASPIRIN 81 MG ECTAB PO SCH (08:17)
[2016-11-18] MEDS: METOPROLOL TARTRATE 100 MG TAB PO SCH ×2 (08:18→20:05)
[2016-11-18] MEDS: RALTEGRAVIR POTASSIUM TAB 400 MG TAB PO SCH ×2 (08:18→20:06)
[2016-11-18] MEDS: ATORVASTATIN 40 MG TAB PO SCH (08:19)
[2016-11-18] MEDS: CLOPIDOGREL BISULFATE 75 MG TAB PO SCH (08:20)
[2016-11-18] MEDS ORDERED: HydrALAZINE HCL 20 MG/ML VIAL IV. PRN (11:00)
[2016-11-18] MEDS ORDERED: AMLODIPINE BESYLATE 5 MG TAB PO ONE (11:00)
[2016-11-18] MEDS: FAMOTIDINE IV INJ 20 MG in DEXTROSE 5% 100ML 100 ML IV SCH ×2 (11:04→22:23)
--- NOTE | 2016-11-18 11:14 | Progress Note ---
Internal Med Progress Note Date of Service: Nov 18, 2016. Provider Documentation: SUBJECTIVE: Seen and examined at bedside. States having occipital headache. Also complains of pleuritic chest pain associated with cough and brownish expectoration. Reports having acid reflex symptoms. Offers no other complaints. OBJECTIVE: Vital Signs-as noted below Physical Exam: Vitals signs as noted above General Appearance:Moderately built and nourished, no apparent distress Head: normocephalic, Atraumatic Eyes: normal inspection, EOMI, PERRL Neck: supple, Trachea midline Respiratory/Chest: Decreased breath sounds on right side,+ creps at bases Cardiovascular: S1, S2, No murmur Abdomen/GI:Soft, Non tender, Bowel sounds present Extremities/Musculoskelatal:normal inspection, no edema Neurologic/Psych:grossly no focal neurological deficits Skin: normal color, warm Lab data as noted below. ASSESSMENT & PLAN: Patient is a 51 yr old male with a PMH of HIV with peripheral neuropathy, R internal carotid artery stenosis with multiple and recurrent TIAs, H/O CVA, H/O migraines, chronic pain on long-term narcotics, depression/anxiety, anal dysplasia s/p polyp removal, COPD and current tobacco use, HTN presents with chest tightness, SOB, cough with sputum. SEPSIS HCAP Immunocompromised due to HIV Recently discharged from [facility] October 2015 with SIRS, possible pulmonary source, treated with Levaquin CTA chest- neg for PE, + Interval development of several nodular opacities within the right upper lobe since CT of October 25, 2016 suggestive of an infectious process such as bronchiolitis/bronchopneumonia Stress test in October 2016: negative Troponin negative EKG- no evidence of ischemia Continue Levaquin, Aztreonam, vancomycin empirically for now Follow up Blood/Sputum cultures Consulted ID Monitor lactate levels HEADACHE H/O migraine Likely secondary to uncontrolled HTN CT head: no acute pathology Added meds for better BP control Monitor GERD: Takes Prilosec PRN at home Start Famotidine SINUS TACHYCARDIA Likely due to infection Resolved Monitor HIV On last admission, 10/25/16 CD4 count was 337, HIV-1 RNA was 21 Continue home HIV medications Consulted ID COPD Not in exacerbation PRN Xopenex/ Atrovent nebs Continue Symbicort Counselled to quit smoking HYPERTENSION Elevated Continue metoprolol and losartan Hold chlorthalidone and PRN Lasix Add amlodipine, Hydralazine PRN H/O CVA, HX RECURRENT TIA'S Known complete occlusion of SAÚL Continue aspirin, Plavix, statin Planned for repeat Carotid Doppler as outpatient CHRONIC PAIN/ PERIPHERAL NEUROPATHY Continue home dose of fentanyl and oxycodone Avoid IV pain meds Follows with outpatient pain management H/O ANAL DYSPLASIA To have f/u colonoscopy as outpatient DVT PX Lovenox SQ Code Status Full Code DISPOSITION Continue monitoring in tele Lives with Follows with Dr. Burdick for primary care Vital Signs: Date Time Temp Pulse Resp B/P (MAP) Pulse Ox O2 Delivery O2 Flow Rate FiO2 11/18/16 11:11 36.7 100 16 177/107 (130) 96 11/18/16 10:48 180/77 (111) 11/18/16 08:00 96 Room Air 11/18/16 07:55 36.5 82 16 182/107 (132) 96 172/96 (121) 11/18/16 04:00 Room Air 11/18/16 02:09 87 154/88 (110) 11/17/16 23:59 Room Air 11/17/16 23:56 36.5 89 18 174/101 (125) 96 Room Air 11/17/16 22:42 106 172/97 (122) 11/17/16 20:52 102 22 95 Room Air 11/17/16 20:00 Room Air 11/17/16 18:44 36.8 106 18 168/97 97 Room Air 11/17/16 17:52 109 22 167/102 97 11/17/16 17:37 114 18 167/102 96 Room Air 11/17/16 17:05 115 18 152/93 97 Room Air 11/17/16 16:00 114 21 140/84 95 Room Air 11/17/16 15:50 118 123/76 96 11/17/16 15:22 135/66 11/17/16 15:17 131/91 11/17/16 15:14 128 19 97 11/17/16 15:13 129 25 96 11/17/16 15:12 143/88 11/17/16 15:08 128 22 97 11/17/16 15:07 113/86 11/17/16 15:03 133 20 98 11/17/16 15:02 129/94 11/17/16 14:58 136 21 97 11/17/16 14:57 119/87 11/17/16 14:53 140 22 96 11/17/16 14:53 141 11/17/16 14:52 112/74 11/17/16 14:47 142 20 112/76 96 Room Air 11/17/16 14:34 97 Room Air 11/17/16 14:34 36.4 138 20 132/77 97 Room Air 11/17/16 14:34 97 Room Air Lab Results: Results Past 24 Hours Test 11/17/16 14:30 11/17/16 17:03 11/17/16 19:10 11/17/16 19:35 Range/Units White Blood Count 10.98 4.8-10.8 K/uL Red Blood Count 4.66 4.7-6.1 M/uL Hemoglobin 14.0 14.0-18.0 g/dL Hematocrit 40.2 42-52 % Mean Corpuscular Volume 86.3 80-100 fL Mean Corpuscular Hemoglobin 30.0 25-34 pg Mean Corpuscular Hemoglobin Concent 34.8 32-36 g/dl Platelet Count 208 130-400 K/uL Mean Platelet Volume 9.2 7.4-10.4 fL Neutrophils (%) (Auto) 72.6 % Lymphocytes (%) (Auto) 19.8 % Monocytes (%) (Auto) 5.2 % Eosinophils (%) (Auto) 0.2 % Basophils (%) (Auto) 0.7 % Neutrophils # (Auto) 7.98 1.4-6.5 K/uL Lymphocytes # (Auto) 2.17 1.2-3.4 K/uL Monocytes # (Auto) 0.57 0.11-0.59 K/uL Eosinophils # (Auto) 0.02 0-0.5 K/uL Basophils # (Auto) 0.08 0-0.2 K/uL RDW Standard Deviation 46.2 36.4-46.3 fL RDW Coefficient of Variation 14.7 11.5-14.5 % Immature Granulocyte % (Auto) 1.5 % Immature Granulocyte # (Auto) 0.16 0.00-0.02 K/uL Sodium Level 139 136-145 mmol/L Potassium Level 3.7 3.5-5.1 mmol/L Chloride Level 103 98-107 mmol/L Carbon Dioxide Level 22 21-32 mmol/L Anion Gap 14.0 3-11 mmol/L Blood Urea Nitrogen 11 7-18 mg/dl Creatinine 1.10 0.60-1.40 mg/dl Est Creatinine Clear Calc Drug Dose 86.2 ml/min Estimated GFR () 89.0 Estimated GFR (Non- 76.8 BUN/Creatinine Ratio 9.5 10-20 Random Glucose 176 70-99 mg/dl Calcium Level 9.6 8.5-10.1 mg/dl Total Creatine Kinase 58 39-308 U/L Creatine Kinase MB 0.8 0.5-3.6 ng/ml Creatine Kinase MB Ratio 1.4 0-3.0 Troponin I < 0.015 0-0.045 ng/ml Chemistry Specimen Hemolysis Lactic Acid Level 3.8 3.5 0.4-2.0 mmol/L Urine Color YELLOW Urine Appearance CLEAR CLEAR Urine pH 5.5 4.5-7.5 Urine Specific [place] 1.035 1.000-1.030 Urine Protein NEG NEG Urine Glucose (UA) TRACE NEG Urine Ketones NEG NEG Urine Occult Blood NEG NEG Urine Nitrite NEG NEG Urine Bilirubin NEG NEG Urine Urobilinogen NEG NEG Urine Leukocyte Esterase NEG NEG Urine WBC (Auto) 0 0-5 /hpf Urine RBC (Auto) 0-4 0-4 /hpf Urine Hyaline Casts (Auto) 0 0-5 /lpf Urine Epithelial Cells (Auto) 0-5 0-5 /lpf Urine Bacteria (Auto) NEG NEG Test 11/18/16 05:57 11/18/16 10:47 Range/Units White Blood Count 12.31 4.8-10.8 K/uL Red Blood Count 4.48 4.7-6.1 M/uL Hemoglobin 12.9 14.0-18.0 g/dL Hematocrit 38.9 42-52 % Mean Corpuscular Volume 86.8 80-100 fL Mean Corpuscular Hemoglobin 28.8 25-34 pg Mean Corpuscular Hemoglobin Concent 33.2 32-36 g/dl RDW Standard Deviation 47.0 36.4-46.3 fL RDW Coefficient of Variation 14.7 11.5-14.5 % Platelet Count 207 130-400 K/uL Mean Platelet Volume 9.1 7.4-10.4 fL Microbiology Results 11/17/16 Blood Culture, Received Pending 11/17/16 Blood Culture, Received Pending
[2016-11-18] MEDS: ACETAMINOPHEN 325 MG TAB PO PRN ×2 (11:59→20:04)
[2016-11-18] MEDS: VANCOMYCIN INJ 1,400 MG in SODIUM CHLORIDE 0.9% 500ML 500 ML IV SCH ×2 (12:31→23:27)
[2016-11-18] MEDS: LEVOFLOXACIN / D5W 750 MG in PREMIXED IN D5W 150 ML IV SCH (15:38)
--- NOTE | 2016-11-18 15:38 | Progress Note ---
Progress Note Date of Service Nov 18, 2016. Progress Note ID Consult Dictated #[id number] A/P: 1. CAP 2. HIV on HAART -Continue abx, check sputum culture, follow cultures -Continue HAART, only on isentress at this time, will add remaining regimen -will follow, thank you
--- NOTE | 2016-11-18 16:16 | INFECT. DISEASE CONSULTATION ---
DATE OF CONSULTATION: 11/18/2016 DATE OF CONSULTATION: 11/18/2016. REQUESTING PHYSICIAN: Dr. Saleem. HISTORY OF PRESENT ILLNESS: This is a 51-year-old gentleman who was admitted after he had elevated blood pressure and chest tightness. He did have imaging in the Emergency Room yesterday which showed a right upper lobe opacity consistent with pneumonia. He also had PE protocol which was negative. He has been afebrile since admission. He was placed empirically on Levaquin, aztreonam and vancomycin. He appears to be tolerating these antibiotics well. He is also receiving a nebulizer treatment with some help. He has had a nonproductive cough but states today he has been able to produce some sputum. He denies any hemoptysis or blood tinged sputum. He was having subjective chills at home. He states his blood pressure has been elevated and he noticed that his blood pressure is elevated after breathing treatments. His white blood cell count yesterday was 10 and has increased to 12.3. Blood cultures were ordered and are pending. He also has history of HIV disease and has been following with [facility] infectious diseases for some time now. His last CD4 count in October of 2016 while hospitalized here was 337. He was undetectable. He states he has been adherent with his medications and has not missed any doses. He is in the process of attempting to transfer care. He currently denies any fevers or chills. He denies any pleuritic chest pain. He denies any cough currently but states he was coughing earlier today. He denies any nausea, vomiting, diarrhea or loss of appetite. He has no urinary symptoms. All remaining review of systems are reviewed and are negative except as noted above. PAST MEDICAL HISTORY: Significant for HIV on antiretroviral therapy, neuropathy and chronic pain, COPD, history of CVA, TIAs, coronary artery disease with [place], hypertension, anxiety, AVM of the brain, carotid stenosis, depression, high cholesterol, history of alcohol abuse, migraine headaches, colon polyps. FAMILY HISTORY: Noncontributory. SOCIAL HISTORY: Significant for daily tobacco use. He denies any alcohol or drug use currently. He is on chronic pain medications. He is and lives with his . His family is present during his exam. He denied any recent sick contacts. ALLERGIES: HE HAS MULTIPLE ALLERGIES INCLUDING PENICILLIN, AZITHROMYCIN, NIACIN, SULFA ANTIBIOTICS, TRAMADOL, NEURONTIN, SHELLFISH, TOPIRAMATE AND MELOXICAM. CURRENT MEDICATIONS: Include Norvasc, Levaquin, felodipine, hydralazine, aspirin, Lipitor, Plavix, folic acid, Cozaar, aztreonam, vancomycin, Lovenox, amitriptyline, Symbicort, Lopressor, raltegravir, Duragesic patch, Roxicodone, Xopenex. PHYSICAL EXAMINATION: VITAL SIGNS: He is afebrile, pulse 107, respiratory rate 16, blood pressure 154/85, oxygen saturation is 98% on room air. GENERAL: He is awake, alert and oriented x3. He appears to be in no acute distress. HEAD, EYES, EARS, NOSE, AND THROAT: Mucous membranes are moist. Dentition is poor. LUNGS: Clear bilaterally. HEART: Regular. ABDOMEN: Soft, nontender, nondistended. EXTREMITIES: There is no lower extremity edema bilaterally. SKIN: Without rash. LABORATORY STUDIES: Today reveal a white blood cell count of 12.3, hemoglobin 12.9, hematocrit 38.9, platelets are 207. Chemistry panel yesterday reveals a sodium of 139, potassium 3.7, chloride 103, bicarbonate 22, BUN 11, creatinine 1.1, glucose is 176. Lactic acid is 2.2. Cardiac enzymes are negative. Urinalysis was unremarkable. Blood cultures are pending. CAT scan is as reviewed previously. ASSESSMENT AND PLAN: 1. Likely community-acquired pneumonia. 2. Human immunodeficiency virus. 3. Leukocytosis. He will be continued on empiric antibiotics. A sputum culture will be ordered. Blood cultures are pending and I will follow the results of those. His CD4 was low at 337 at his last admission; however, this could be falsely low as it was drawn during hospital stay. He does not remember his last outpatient CD4 count. With regards to his HIV medications, he will continue on his medications. Looking at his last hospital was list, he was on Isentress, Norvir. No additional antiretrovirals are listed in his medications; however, according to ID consultation, he was receiving Prezista, Isentress and Norvir for the past 2-3 years. I do not see that his Prezista or Norvir have been restarted and would suggest restarting those medications so his complete antiretroviral therapy is available. We will follow along with you while the patient is hospitalized. Thank you for this consultation.
[2016-11-18] MEDS: IPRATROPIUM BROMIDE NEB SOLN 0.02% 2.5 ML VIAL INH PRN (16:42)
[2016-11-18] MEDS: LEVALBUTEROL 1.25MG/0.5ML NEB INH PRN (16:42)
[2016-11-18] MEDS ORDERED: DARUNAVIR ETHANOLATE 600 MG TAB PO SCH (17:00)
[2016-11-18] MEDS ORDERED: BUTALBITAL/ACETAMIN/CAFFEINE TAB PO PRN (17:45)
[2016-11-18] MEDS: AMITRIPTYLINE HCL 50 MG TAB PO SCH (20:03)
[2016-11-18] MEDS: ENOXAPARIN 40 MG/0.4 ML SYR SC SCH (20:03)
[2016-11-18] MEDS: RITONAVIR 100 MG TAB PO SCH (20:05)
[2016-11-18] MEDS: DARUNAVIR ETHANOLATE 600 MG TAB PO SCH (20:06)
[2016-11-18] MEDS ORDERED: RALTEGRAVIR POTASSIUM TAB 400 MG TAB PO SCH (21:00)
[2016-11-19] VITALS (9 sets, daily range): BP systolic 134–176; BP diastolic 72–102; PULSE 87–108; TEMP 36.6–37; O2SAT 94–97
[2016-11-19] MEDS: AZTREONAM 2000 MG in DEXTROSE 5% 100 ML IV SCH ×3 (01:26→17:48)
[2016-11-19] MEDS: OXYCODONE HCL IR 5 MG TAB (IMMEDIATE RELEASE) PO PRN ×2 (06:23→15:42)
[2016-11-19 07:34] LABS: BASO % 0.7 %; BASO ABS # 0.07 K/uL (0-0.2); COMPLETE YES; EOS % 0.9 %; HEMATOCRIT 37.6 % (42-52); IG% 1.4 %; LYMPH % 37.2 %; LYMPH ABS # 3.66 K/uL (1.2-3.4); MEAN CELL VOLUME 86.2 fL (80-100); MEAN CORPUSCULAR HEMOGLOBIN 28.7 pg (25-34); MEAN CORPUSCULAR HGB CONC 33.2 g/dl (32-36); MEAN PLATELET VOLUME 8.6 fL (7.4-10.4); MONO % 9.8 %; PLATELET COUNT 191 K/uL (130-400); RED BLOOD COUNT 4.36 M/uL (4.7-6.1); WHITE BLOOD COUNT 9.84 K/uL (4.8-10.8)
[2016-11-19] MEDS: CHECK FENTANYL PATCH PLACEMENT SCH ×4 (08:00→15:46)
[2016-11-19 08:41] LABS: BUN/CREATININE RATIO 13.9 (10-20); CREATININE 0.89 mg/dl (0.60-1.40); POTASSIUM 3.7 mmol/L (3.5-5.1)
[2016-11-19 08:54] LABS: CALCIUM 9.1 mg/dl (8.5-10.1)
[2016-11-19] MEDS: METOPROLOL TARTRATE 100 MG TAB PO SCH ×2 (09:05→20:05)
[2016-11-19] MEDS: BUDESONIDE/FORMOTEROL FUMARATE 160/4.5 60 PUFFS/INHALER INH SCH ×2 (09:05→20:05)
[2016-11-19] MEDS: CLOPIDOGREL BISULFATE 75 MG TAB PO SCH (09:06)
[2016-11-19] MEDS: LOSARTAN POTASSIUM 50 MG TAB PO SCH (09:06)
[2016-11-19] MEDS: AMLODIPINE BESYLATE 5 MG TAB PO SCH (09:06)
[2016-11-19] MEDS: ATORVASTATIN 40 MG TAB PO SCH (09:06)
[2016-11-19] MEDS: RALTEGRAVIR POTASSIUM TAB 400 MG TAB PO SCH ×2 (09:06→20:07)
[2016-11-19] MEDS: ASPIRIN 81 MG ECTAB PO SCH (09:06)
[2016-11-19] MEDS: RITONAVIR 100 MG TAB PO SCH ×2 (09:07→20:08)
[2016-11-19] MEDS: DARUNAVIR ETHANOLATE 600 MG TAB PO SCH ×2 (09:08→20:08)
[2016-11-19] MEDS: SODIUM CHLORIDE 0.9% 1000ML 1,000 ML IV SCH ×2 (09:09→20:04)
[2016-11-19] MEDS: FAMOTIDINE IV INJ 20 MG in DEXTROSE 5% 100ML 100 ML IV SCH ×2 (10:36→22:34)
[2016-11-19] MEDS ORDERED: VANCOMYCIN TROUGH SCH (11:30)
[2016-11-19] MEDS: VANCOMYCIN INJ 1,400 MG in SODIUM CHLORIDE 0.9% 500ML 500 ML IV SCH ×2 (12:31→20:00)
--- NOTE | 2016-11-19 13:03 | Pharmacy Progress Note ---
Pharmacy Abx Dose Short Note Date of Service Nov 19, 2016. Assessment & Plan Assessment 51 year old male receiving vancomycin, Levaquin and aztreonam for treatment of HAP * PMH significant for HIV * Was treated with Levaquin during his recent hospital stay October 2016 Day # 3/7 of antimicrobial therapy ID has been consulted and recommends obtaining a sputum culture No MRSA swab obtained but question significance as we are on day #3 of antibiotics? Plan Vancomycin * Trough level of 6.8 mcg/mL is subtherapeutic - aware that dose is not yet at steady state but I would like to see trough higher than this * Change to 1400 mg IV every 8 hours * Goal trough level for pneumonia : 15 to 20 mcg/mL * Trough or random level ordered for: 11/21/16 prior to the 5th dose of the new regimen Azactam * Continue 2 gm IV q8h Levaquin * Not being dosed by pharmacy but appropriate for renal function Pharmacy will continue to follow and will adjust dose/frequency as necessary. Thank you.
--- NOTE | 2016-11-19 13:47 | Progress Note ---
Subjective Date of Service: Nov 19, 2016. Subjective remains afebrile, blood cultures pending, sputum culture ordered, not collected. tolerating abx well wbc improved today. on isentress and norvir, prezista not added, not in meditech. No overnight evnets. continues with neb treatment. Problem List Medical Problems: (1) AIDS (acquired immunodeficiency syndrome), CD4 >200 and <500 Status: Acute (2) Anterior chest wall pain Status: Acute (3) Chest pain, rule out acute myocardial infarction Status: Acute (4) Chills Status: Acute (5) Diarrhea Status: Acute (6) Headache Status: Acute (7) Hypokalemia Status: Acute (8) Involuntary movements Status: Acute (9) Left sided chest pain Status: Acute (10) Paresthesia Status: Acute (11) Precordial chest pain Status: Acute (12) Right leg weakness Status: Acute (13) Syncope Status: Acute (14) TIA (transient ischemic attack) Status: Acute Objective Vital Signs Date Time Temp Pulse Resp B/P (MAP) Pulse Ox O2 Delivery O2 Flow Rate FiO2 11/19/16 12:00 96 Room Air 11/19/16 11:17 37.0 96 16 168/91 (116) 96 11/19/16 10:41 160/98 (118) 11/19/16 08:00 96 Room Air 11/19/16 07:19 36.8 90 16 176/102 (126) 96 11/19/16 04:33 36.8 91 16 160/89 (112) 97 Room Air 11/19/16 04:00 Room Air 11/19/16 00:00 Room Air 11/18/16 23:10 36.5 97 20 146/74 (98) 94 Room Air 11/18/16 20:00 Room Air 11/18/16 19:44 36.7 113 18 166/80 (108) 97 Room Air 11/18/16 17:31 127/75 (92) 11/18/16 16:42 112 18 97 Room Air 11/18/16 16:00 Room Air 11/18/16 15:12 36.9 107 16 154/85 (108) 98 Laboratory Results Last 24 Hours Test 11/18/16 18:10 11/19/16 06:56 11/19/16 11:41 Lactic Acid Level 3.2 mmol/L White Blood Count 9.84 K/uL Red Blood Count 4.36 M/uL Hemoglobin 12.5 g/dL Hematocrit 37.6 % Mean Corpuscular Volume 86.2 fL Mean Corpuscular Hemoglobin 28.7 pg Mean Corpuscular Hemoglobin Concent 33.2 g/dl Platelet Count 191 K/uL Mean Platelet Volume 8.6 fL Neutrophils (%) (Auto) 50.0 % Lymphocytes (%) (Auto) 37.2 % Monocytes (%) (Auto) 9.8 % Eosinophils (%) (Auto) 0.9 % Basophils (%) (Auto) 0.7 % Neutrophils # (Auto) 4.92 K/uL Lymphocytes # (Auto) 3.66 K/uL Monocytes # (Auto) 0.96 K/uL Eosinophils # (Auto) 0.09 K/uL Basophils # (Auto) 0.07 K/uL RDW Standard Deviation 46.5 fL RDW Coefficient of Variation 14.7 % Immature Granulocyte % (Auto) 1.4 % Immature Granulocyte # (Auto) 0.14 K/uL Sodium Level 140 mmol/L Potassium Level 3.7 mmol/L Chloride Level 106 mmol/L Carbon Dioxide Level 24 mmol/L Anion Gap 10.0 mmol/L Blood Urea Nitrogen 12 mg/dl Creatinine 0.89 mg/dl Est Creatinine Clear Calc Drug Dose 106.6 ml/min Estimated GFR () 113.9 Estimated GFR (Non- 98.3 BUN/Creatinine Ratio 13.9 Random Glucose 108 mg/dl Calcium Level 9.1 mg/dl Vancomycin Level Trough 6.8 mcg/ml Assessment and Plan (1) Pneumonia Assessment & Plan: continue abx. If clinical improvement, could transition to po abx, levaquin/doxy to complete course. no sputum collected to date, although ordered, may now be negative after 3 days abx. (2) HIV disease Assessment & Plan: on isentress and norvir, on prezista at home as well. will need to resume care with HIV provider post d/c. (3) Leukocytosis Assessment & Plan: resolved
[2016-11-19] MEDS: LEVOFLOXACIN / D5W 750 MG in PREMIXED IN D5W 150 ML IV SCH (15:42)
--- NOTE | 2016-11-19 16:08 | Progress Note ---
Internal Med Progress Note Date of Service: Nov 19, 2016. Provider Documentation: SUBJECTIVE: Seen and examined at bedside. Feels lot better today. States headache has much improved. Denies chest pain, SOB. Cough is improving. No new complaints. OBJECTIVE: Vital Signs-as noted below Physical Exam: Vitals signs as noted above General Appearance:Moderately built and nourished, no apparent distress Head: normocephalic, Atraumatic Eyes: normal inspection, EOMI, PERRL Neck: supple, Trachea midline Respiratory/Chest: Normal breath sounds,+ creps at bases Cardiovascular: S1, S2, No murmur Abdomen/GI:Soft, Non tender, Bowel sounds present Extremities/Musculoskelatal:normal inspection, no edema Neurologic/Psych:grossly no focal neurological deficits Skin: normal color, warm Lab data as noted below. ASSESSMENT & PLAN: Patient is a 51 yr old male with a PMH of HIV with peripheral neuropathy, R internal carotid artery stenosis with multiple and recurrent TIAs, H/O CVA, H/O migraines, chronic pain on long-term narcotics, depression/anxiety, anal dysplasia s/p polyp removal, COPD and current tobacco use, HTN presents with chest tightness, SOB, cough with sputum. SEPSIS HCAP Immunocompromised due to HIV Recently discharged from [facility] October 2015 with SIRS, possible pulmonary source, treated with Levaquin CTA chest- neg for PE, + Interval development of several nodular opacities within the right upper lobe since CT of October 25, 2016 suggestive of an infectious process such as bronchiolitis/bronchopneumonia Stress test in October 2016: negative Troponin negative EKG- no evidence of ischemia Continue Levaquin, Aztreonam, vancomycin Blood cultures: No growth to date Appreciate ID input Continue IVF HEADACHE H/O migraine Likely secondary to uncontrolled HTN CT head: no acute pathology Added meds for better BP control Monitor GERD: Takes Prilosec PRN at home Start Famotidine SINUS TACHYCARDIA Likely due to infection Resolved Monitor HIV On last admission, 10/25/16 CD4 count was 337, HIV-1 RNA was 21 Continue home HIV medications ID following COPD Not in exacerbation PRN Xopenex/ Atrovent nebs Continue Symbicort Counselled to quit smoking HYPERTENSION Improved Continue metoprolol and losartan Hold chlorthalidone and PRN Lasix Continue amlodipine, Hydralazine PRN H/O CVA, HX RECURRENT TIA'S Known complete occlusion of SAÚL Continue aspirin, Plavix, statin Planned for repeat Carotid Doppler as outpatient CHRONIC PAIN/ PERIPHERAL NEUROPATHY Continue home dose of fentanyl and oxycodone Avoid IV pain meds Follows with outpatient pain management H/O ANAL DYSPLASIA To have f/u colonoscopy as outpatient DVT PX Lovenox SQ Code Status Full Code DISPOSITION Continue monitoring in tele Lives with Follows with Dr. Burdick for primary care Needs follow up with HIV provider upon discharge Vital Signs: Date Time Temp Pulse Resp B/P (MAP) Pulse Ox O2 Delivery O2 Flow Rate FiO2 11/19/16 14:53 36.7 90 16 134/72 (92) 97 11/19/16 12:00 96 Room Air 11/19/16 11:17 37.0 96 16 168/91 (116) 96 11/19/16 10:41 160/98 (118) 11/19/16 08:00 96 Room Air 11/19/16 07:19 36.8 90 16 176/102 (126) 96 11/19/16 04:33 36.8 91 16 160/89 (112) 97 Room Air 11/19/16 04:00 Room Air 11/19/16 00:00 Room Air 11/18/16 23:10 36.5 97 20 146/74 (98) 94 Room Air 11/18/16 20:00 Room Air 11/18/16 19:44 36.7 113 18 166/80 (108) 97 Room Air 11/18/16 17:31 127/75 (92) 11/18/16 16:42 112 18 97 Room Air Lab Results: Results Past 24 Hours Test 11/18/16 18:10 11/19/16 06:56 11/19/16 11:41 Range/Units Lactic Acid Level 3.2 0.4-2.0 mmol/L White Blood Count 9.84 4.8-10.8 K/uL Red Blood Count 4.36 4.7-6.1 M/uL Hemoglobin 12.5 14.0-18.0 g/dL Hematocrit 37.6 42-52 % Mean Corpuscular Volume 86.2 80-100 fL Mean Corpuscular Hemoglobin 28.7 25-34 pg Mean Corpuscular Hemoglobin Concent 33.2 32-36 g/dl Platelet Count 191 130-400 K/uL Mean Platelet Volume 8.6 7.4-10.4 fL Neutrophils (%) (Auto) 50.0 % Lymphocytes (%) (Auto) 37.2 % Monocytes (%) (Auto) 9.8 % Eosinophils (%) (Auto) 0.9 % Basophils (%) (Auto) 0.7 % Neutrophils # (Auto) 4.92 1.4-6.5 K/uL Lymphocytes # (Auto) 3.66 1.2-3.4 K/uL Monocytes # (Auto) 0.96 0.11-0.59 K/uL Eosinophils # (Auto) 0.09 0-0.5 K/uL Basophils # (Auto) 0.07 0-0.2 K/uL RDW Standard Deviation 46.5 36.4-46.3 fL RDW Coefficient of Variation 14.7 11.5-14.5 % Immature Granulocyte % (Auto) 1.4 % Immature Granulocyte # (Auto) 0.14 0.00-0.02 K/uL Sodium Level 140 136-145 mmol/L Potassium Level 3.7 3.5-5.1 mmol/L Chloride Level 106 98-107 mmol/L Carbon Dioxide Level 24 21-32 mmol/L Anion Gap 10.0 3-11 mmol/L Blood Urea Nitrogen 12 7-18 mg/dl Creatinine 0.89 0.60-1.40 mg/dl Est Creatinine Clear Calc Drug Dose 106.6 ml/min Estimated GFR () 113.9 Estimated GFR (Non- 98.3 BUN/Creatinine Ratio 13.9 10-20 Random Glucose 108 70-99 mg/dl Calcium Level 9.1 8.5-10.1 mg/dl Vancomycin Level Trough 6.8 SEE COMMENT mcg/ml
[2016-11-19] MEDS ORDERED: ZOLPIDEM TARTRATE 5 MG TAB PO PRN (18:45)
[2016-11-19] MEDS: AMITRIPTYLINE HCL 50 MG TAB PO SCH (20:07)
[2016-11-19] MEDS: ENOXAPARIN 40 MG/0.4 ML SYR SC SCH (20:09)
[2016-11-20] VITALS (7 sets, daily range): BP systolic 98–174; BP diastolic 61–99; PULSE 72–110; TEMP 36.4–37.3; O2SAT 91–97
[2016-11-20] MEDS: CHECK FENTANYL PATCH PLACEMENT SCH ×4 (00:27→08:00)
[2016-11-20] MEDS: AZTREONAM 2000 MG in DEXTROSE 5% 100 ML IV SCH ×2 (02:00→09:19)
[2016-11-20] MEDS: OXYCODONE HCL IR 5 MG TAB (IMMEDIATE RELEASE) PO PRN ×2 (02:01→10:33)
[2016-11-20] MEDS: VANCOMYCIN INJ 1,400 MG in SODIUM CHLORIDE 0.9% 500ML 500 ML IV SCH ×2 (03:50→10:33)
[2016-11-20 06:46] LABS: BASO % 0.2 %; BASO ABS # 0.03 K/uL (0-0.2); COMPLETE YES; HEMATOCRIT 39.3 % (42-52); IG% 1.6 %; LYMPH ABS # 2.82 K/uL (1.2-3.4); MEAN CELL VOLUME 86.4 fL (80-100); MEAN CORPUSCULAR HEMOGLOBIN 29.2 pg (25-34); MEAN CORPUSCULAR HGB CONC 33.8 g/dl (32-36); MEAN PLATELET VOLUME 8.8 fL (7.4-10.4); MONO % 7.7 %; NEUT % 69.5 %; PLATELET COUNT 204 K/uL (130-400); RED BLOOD COUNT 4.55 M/uL (4.7-6.1); WHITE BLOOD COUNT 13.44 K/uL (4.8-10.8)
[2016-11-20 07:14] LABS: BUN/CREATININE RATIO 15.9 (10-20); CALCIUM 8.6 mg/dl (8.5-10.1); CREATININE 0.83 mg/dl (0.60-1.40); POTASSIUM 3.4 mmol/L (3.5-5.1)
[2016-11-20] MEDS: LOSARTAN POTASSIUM 50 MG TAB PO SCH (07:37)
[2016-11-20] MEDS: METOPROLOL TARTRATE 100 MG TAB PO SCH (07:37)
[2016-11-20] MEDS: ASPIRIN 81 MG ECTAB PO SCH (07:37)
[2016-11-20] MEDS: ATORVASTATIN 40 MG TAB PO SCH (07:38)
[2016-11-20] MEDS: AMLODIPINE BESYLATE 5 MG TAB PO SCH (07:39)
[2016-11-20] MEDS: CLOPIDOGREL BISULFATE 75 MG TAB PO SCH (07:39)
[2016-11-20] MEDS: BUDESONIDE/FORMOTEROL FUMARATE 160/4.5 60 PUFFS/INHALER INH SCH (07:39)
[2016-11-20] MEDS: RALTEGRAVIR POTASSIUM TAB 400 MG TAB PO SCH (07:40)
[2016-11-20] MEDS: RITONAVIR 100 MG TAB PO SCH (07:40)
[2016-11-20] MEDS: DARUNAVIR ETHANOLATE 600 MG TAB PO SCH (07:41)
--- NOTE | 2016-11-20 07:58 | Progress Note ---
Internal Med Progress Note Date of Service: Nov 20, 2016. Provider Documentation: SUBJECTIVE: Seen and examined at bedside. Eager to get discharged and states he feels lot better today. Denies chest pain, SOB. No new complaints. OBJECTIVE: Vital Signs-as noted below Physical Exam: Vitals signs as noted above General Appearance:Moderately built and nourished, no apparent distress Head: normocephalic, Atraumatic Eyes: normal inspection, EOMI, PERRL Neck: supple, Trachea midline Respiratory/Chest: Normal breath sounds,CTA Cardiovascular: S1, S2, No murmur Abdomen/GI:Soft, Non tender, Bowel sounds present Extremities/Musculoskelatal:normal inspection, no edema Neurologic/Psych:grossly no focal neurological deficits Skin: normal color, warm Lab data as noted below. ASSESSMENT & PLAN: Patient is a 51 yr old male with a PMH of HIV with peripheral neuropathy, R internal carotid artery stenosis with multiple and recurrent TIAs, H/O CVA, H/O migraines, chronic pain on long-term narcotics, depression/anxiety, anal dysplasia s/p polyp removal, COPD and current tobacco use, HTN presents with chest tightness, SOB, cough with sputum. SEPSIS HCAP Immunocompromised due to HIV Recently discharged from [facility] October 2015 with SIRS, possible pulmonary source, treated with Levaquin CTA chest- neg for PE, + Interval development of several nodular opacities within the right upper lobe since CT of October 25, 2016 suggestive of an infectious process such as bronchiolitis/bronchopneumonia Stress test in October 2016: negative Troponin negative EKG- no evidence of ischemia Continue Levaquin, Aztreonam, vancomycin Blood cultures: No growth to date Appreciate ID input S/P IVF WBC:13.44 today Plan to DC on Levaquin and Doxy: discussed with ID today LACTIC ACIDOSIS: Likely secondary to antiretroviral therapy and Pneumonia HEADACHE H/O migraine Likely secondary to uncontrolled HTN CT head: no acute pathology Added amlodipine for better BP control Resolved GERD: Takes Prilosec PRN at home Start Famotidine SINUS TACHYCARDIA Likely due to infection Resolved Monitor HIV On last admission, 10/25/16 CD4 count was 337, HIV-1 RNA was 21 Continue home HIV medications ID following COPD Not in exacerbation PRN Xopenex/ Atrovent nebs Continue Symbicort Counselled to quit smoking HYPERTENSION Continue metoprolol and losartan Resume chlorthalidone in AM Continue amlodipine, Hydralazine PRN H/O CVA, HX RECURRENT TIA'S Known complete occlusion of SAÚL Continue aspirin, Plavix, statin Planned for repeat Carotid Doppler as outpatient CHRONIC PAIN/ PERIPHERAL NEUROPATHY Continue home dose of fentanyl and oxycodone Avoid IV pain meds Follows with outpatient pain management H/O ANAL DYSPLASIA To have f/u colonoscopy as outpatient DVT PX Lovenox SQ Code Status Full Code DISPOSITION Continue monitoring in tele Lives with Plan to discharge home today Follow up with Dr. Burdick for primary care on 11/25/16 at 10:45 am Follow up with Infectious disease doctor in 2 weeks as advised Complete the antibiotic course as prescribed. Get lactic acid levels rechecked next week and follow up with your infectious doctor with results. Vital Signs: Date Time Temp Pulse Resp B/P (MAP) Pulse Ox O2 Delivery O2 Flow Rate FiO2 11/20/16 12:00 96 Room Air 11/20/16 11:19 36.7 86 20 162/86 (111) 97 Room Air 11/20/16 08:00 96 Room Air 11/20/16 07:06 36.6 93 18 174/99 (124) 96 Room Air 11/20/16 04:12 37.3 72 18 131/68 (89) 96 Room Air 11/20/16 04:00 Room Air 11/20/16 00:00 Room Air 11/19/16 23:27 36.6 87 16 139/76 (97) 94 Room Air 11/19/16 20:00 Room Air 11/19/16 18:53 36.9 108 18 162/83 (109) 96 Room Air 11/19/16 16:00 Room Air Lab Results: Results Past 24 Hours Test 11/20/16 06:12 Range/Units White Blood Count 13.44 4.8-10.8 K/uL Red Blood Count 4.55 4.7-6.1 M/uL Hemoglobin 13.3 14.0-18.0 g/dL Hematocrit 39.3 42-52 % Mean Corpuscular Volume 86.4 80-100 fL Mean Corpuscular Hemoglobin 29.2 25-34 pg Mean Corpuscular Hemoglobin Concent 33.8 32-36 g/dl Platelet Count 204 130-400 K/uL Mean Platelet Volume 8.8 7.4-10.4 fL Neutrophils (%) (Auto) 69.5 % Lymphocytes (%) (Auto) 21.0 % Monocytes (%) (Auto) 7.7 % Eosinophils (%) (Auto) 0.0 % Basophils (%) (Auto) 0.2 % Neutrophils # (Auto) 9.35 1.4-6.5 K/uL Lymphocytes # (Auto) 2.82 1.2-3.4 K/uL Monocytes # (Auto) 1.03 0.11-0.59 K/uL Eosinophils # (Auto) 0.00 0-0.5 K/uL Basophils # (Auto) 0.03 0-0.2 K/uL RDW Standard Deviation 45.5 36.4-46.3 fL RDW Coefficient of Variation 14.6 11.5-14.5 % Immature Granulocyte % (Auto) 1.6 % Immature Granulocyte # (Auto) 0.21 0.00-0.02 K/uL Sodium Level 141 136-145 mmol/L Potassium Level 3.4 3.5-5.1 mmol/L Chloride Level 106 98-107 mmol/L Carbon Dioxide Level 26 21-32 mmol/L Anion Gap 9.0 3-11 mmol/L Blood Urea Nitrogen 13 7-18 mg/dl Creatinine 0.83 0.60-1.40 mg/dl Est Creatinine Clear Calc Drug Dose 114.3 ml/min Estimated GFR () 117.3 Estimated GFR (Non- 101.2 BUN/Creatinine Ratio 15.9 10-20 Random Glucose 147 70-99 mg/dl Calcium Level 8.6 8.5-10.1 mg/dl
[2016-11-20] MEDS ORDERED: POTASSIUM CHLORIDE 10 MEQ TABCR PO ONE (08:00)
[2016-11-20] MEDS ORDERED: FAMOTIDINE 20 MG TAB PO SCH (09:00)
[2016-11-20] MEDS ORDERED: LVQ750 PO (15:23)
[2016-11-20] MEDS ORDERED: NRV5 PO (15:23)
[2016-11-20] MEDS ORDERED: DXY100 PO (15:23)
--- NOTE | 2016-11-20 15:26 | Discharge Summary ---
Discharge Summary Date of Service Nov 20, 2016. Discharge Summary Admission Date: Nov 17, 2016 at 16:47 Discharge Date: Nov 20, 2016 Discharge Disposition: Home Principal Diagnosis: Pneumonia Procedures: CT head: Old right parietal lobe infarct. No acute intracranial findings. Venous Doppler: There is no sonographic evidence of deep venous thrombosis identified in the right lower extremity. CTA: 1. No pulmonary emboli identified although the subsegmental pulmonary arteries suboptimally assessed due to respiratory motion. 2. Interval development of several nodular opacities within the right upper lobe since CT of October 25, 2016 suggestive of an infectious process such as bronchiolitis/bronchopneumonia. 3. Mild cardiomegaly and mild dilatation of the ascending aorta. No thoracic aortic dissection. CXR: Negative chest. Consultations: Infectious disease Pending Studies/Follow-Up: Follow up with Dr. Burdick for primary care on 11/25/16 at 10:45 am Follow up with Infectious disease doctor in 2 weeks as advised Complete the antibiotic course as prescribed. Get lactic acid levels rechecked next week and follow up with your infectious doctor with results. Medication Reconciliation New Medications: Doxycycline Hyclate (Doxycycline Hyclate) 100 Mg Cap 100 MG PO BID for 7 Days, #14 Levofloxacin (Levofloxacin) 750 Mg Tab 750 MG PO DAILY for 7 Days, #7 Amlodipine Besylate (Amlodipine Besylate) 5 Mg Tab 5 MG PO QAM for 30 Days, #30 TAB Continued Medications: Albuterol Hfa (Ventolin Hfa) 200 Puffs/05143 Mcg Aers 2 PUFFS INH Q6H PRN for Shortness of Breath, #1 INHALER Amitriptyline Hcl (Amitriptyline Hcl) 50 Mg Tab 50 MG PO HS, TAB PT MAY TAKE 50MG IN AM IF NEEDED. Aspirin (Aspirin Ec) 81 Mg Tab 81 MG PO QAM Atorvastatin (Lipitor) 40 Mg Tab 40 MG PO DAILY for 30 Days, #30 TAB Budesonide/Formoterol Fumarate (Symbicort 160/4.5 Inhaler) 120 Puffs/ Aero 2 PUFFS INH BID, INHALER Chlorthalidone (Hygroton) 25 Mg Tab 25 MG PO QAM, TAB Clopidogrel (Plavix) 75 Mg Tab 75 MG PO QAM, TAB Darunavir Ethanolate (Prezista) 600 Mg Tab 600 MG PO BID TAKE THIS MEDICATION WITH FOOD Fentanyl (Fentanyl) 25 Mcg Tdsy 25 MCG TD Q72HRS GOES ALONG WITH 12MCG Fentanyl (Fentanyl) 12 Mcg Tdsy 12 MCG TOP Q72H GOES ALONG WITH THE 25MCG Folic Acid (Folic Acid) 1 Mg Tab 1 MG PO QAM Furosemide (Furosemide) 20 Mg Tab 20 MG PO DAILY PRN for swelling Ipratropium-Albuterol (Duoneb) 3 Ml Nebu 1 TREATMENT INH Q4H PRN for SOB/Wheezing, INHA Losartan Potassium (Cozaar) 100 Mg Tab 100 MG PO QAM, TAB Metoprolol Tartrate (Metoprolol Tartrate) 100 Mg Tab 100 MG PO BID Ondansetron Hcl (Zofran) 4 Mg Tab 4 MG PO Q6 PRN for Nausea, TAB Oxycodone Hcl (Oxycodone Hcl) 5 Mg Cap 1 CAP PO TID PRN for Pain for 30 Days, #90 CAP Raltegravir Potassium (Isentress) 400 Mg Tab 400 MG PO BID, TAB Ritonavir (Norvir) 100 Mg Tab 100 MG PO BID Admission Information HPI (per Admitting provider): This is a 51 y/o male with PMH of HIV, chronic pain due to neuropathy, COPD, current smoker, history of CVA, recurrent TIAs, SAÚL stenosis, hypertension, and other problems listed below who presents to the ED with elevated BP and chest tightness. Patient was recently admitted to [facility] October 2015 for leukocytosis , possible pulmonary infected treated with Levaquin, chest tightness unlikely ACS with negative stress test. His CD4 count was 337 last admission. He was seen by ID last admission and was supposed to f/u with Dr. Blount but this was not done yet. Patient states he was feeling better after discharge except had persistent SOB which improves with Duoneb use. Then for past 2 days he has chest tightness on the left side, non-radiating, which is constant unrelated to exertion, cough, position. He states it is similar to his past chest pain. Patient reports associated subjective warmth, diaphoresis, shaking chills, cough with worsened sputum from baseline- thick green/brown color. He additionally notes for past 2 days at home his BP is elevated to 170s systolic and HR was up to 110s this morning. He did sense palpitations. He reports having an occipital PATTERSON which resolved with Dilaudid in ER. Had nausea and poor appetite today. Denies rhinorrhea, sore throat, abdominal pain, diarrhea, urinary changes, syncope, acute focal neurologic symptoms. No missed medication doses. Physical Exam (per Admitting): General Appearance: WD/WN, no apparent distress Head: normocephalic, atraumatic Eyes: normal inspection, PERRL, EOMI, sclerae normal ENT: hearing grossly normal, pharynx normal, + pertinent finding (dry oral mucosa) Neck: supple, trachea midline Respiratory/Chest: normal breath sounds, no respiratory distress, no accessory muscle use, + pertinent finding (few scattered rhonchi on right side. No wheezing. + reproducible chest wall tenderness left lateral chest) Cardiovascular: no murmur, normal peripheral pulses, + tachycardia (HR 100s , regular) Abdomen/GI: normal bowel sounds, non tender, soft Extremities/Musculoskelatal: no calf tenderness, no pedal edema Neurologic/Psych: alert, normal mood/affect, oriented x 3, + pertinent finding (no focal deficit on gross examination) Skin: normal color, warm/dry, no rash Hospital Course Patient is a 51 yr old male with a PMH of HIV with peripheral neuropathy, R internal carotid artery stenosis with multiple and recurrent TIAs, H/O CVA, H/O migraines, chronic pain on long-term narcotics, depression/anxiety, anal dysplasia s/p polyp removal, COPD and current tobacco use, HTN presents with chest tightness, SOB, cough with sputum. SEPSIS HCAP Immunocompromised due to HIV Recently discharged from [facility] October 2015 with SIRS, possible pulmonary source, treated with Levaquin CTA chest- neg for PE, + Interval development of several nodular opacities within the right upper lobe since CT of October 25, 2016 suggestive of an infectious process such as bronchiolitis/bronchopneumonia Stress test in October 2016: negative Troponin negative EKG- no evidence of ischemia Continue Levaquin, Aztreonam, vancomycin Blood cultures: No growth to date Appreciate ID input S/P IVF WBC:13.44 today Plan to DC on Levaquin and Doxy: discussed with ID today LACTIC ACIDOSIS: Likely secondary to antiretroviral therapy and Pneumonia HEADACHE H/O migraine Likely secondary to uncontrolled HTN CT head: no acute pathology Added amlodipine for better BP control Resolved GERD: Takes Prilosec PRN at home Start Famotidine SINUS TACHYCARDIA Likely due to infection Resolved Monitor HIV On last admission, 10/25/16 CD4 count was 337, HIV-1 RNA was 21 Continue home HIV medications ID following COPD Not in exacerbation PRN Xopenex/ Atrovent nebs Continue Symbicort Counselled to quit smoking HYPERTENSION Continue metoprolol and losartan Resume chlorthalidone in AM Continue amlodipine, Hydralazine PRN H/O CVA, HX RECURRENT TIA'S Known complete occlusion of SAÚL Continue aspirin, Plavix, statin Planned for repeat Carotid Doppler as outpatient CHRONIC PAIN/ PERIPHERAL NEUROPATHY Continue home dose of fentanyl and oxycodone Avoid IV pain meds Follows with outpatient pain management H/O ANAL DYSPLASIA To have f/u colonoscopy as outpatient DVT PX Lovenox SQ Code Status Full Code DISPOSITION Continue monitoring in tele Lives with Plan to discharge home today Follow up with Dr. Burdick for primary care on 11/25/16 at 10:45 am Follow up with Infectious disease doctor in 2 weeks as advised Complete the antibiotic course as prescribed. Get lactic acid levels rechecked next week and follow up with your infectious doctor with results. Total time spent on discharge = 35 minutes This includes examination of the patient, discharge planning, medication reconciliation, and communication with other providers. Discharge Instructions Discharge Instructions Date of Service Nov 20, 2016. Admission Reason for Admission: Pneumonia, Tachycardia Discharge Discharge Diagnosis / Problem: Pneumonia Discharge Goals Goal(s): Decrease discomfort, Improve function Activity Recommendations Activity Limitations: resume your previous activity Exercise/Sports Limitations: as tolerated . Instructions / Follow-Up Instructions / Follow-Up Follow up with Dr. Burdick for primary care on 11/25/16 at 10:45 am Follow up with Infectious disease doctor in 2 weeks as advised Complete the antibiotic course as prescribed. Get lactic acid levels rechecked next week and follow up with your infectious doctor with results. Current Hospital Diet Patient's current hospital diet: AHA Diet (Heart Healthy) Discharge Diet Recommended Diet: AHA Diet (Heart Healthy) Pending Studies Studies pending at discharge: no Laboratory Results Lipid Panel Test 10/23/16 09:19 Range/Units Triglycerides Level 281 H 0-150 mg/dl Cholesterol Level 180 0-200 mg/dl HDL Cholesterol 39 mg/dl Cholesterol/HDL Ratio 4.6 LDL Cholesterol, Calculated 85 mg/dl Medical Emergencies . Who to Call and When: Medical Emergencies: If at any time you feel your situation is an emergency, please call 911 immediately. . Non-Emergent Contact Non-Emergency issues call your: Primary Care Provider, Specialist (Infectious disease) Call Non-Emergent contact if: you have a fever, your pain is not controlled, your pain is worsening, your pain is unusual for you, you have any medication questions . . "Provider Documentation" section prepared by Sergei Saleem. . VTE Core Measure Inpt VTE Proph given/why not?: Enoxaparin (Lovenox)SQ
[2016-11-21] MEDS ORDERED: VANCOMYCIN TROUGH ONE (03:30)
[2016-12-28] MEDS ORDERED: ATOR-22 PO (14:31)
[2016-12-28] MEDS ORDERED: DOCU-94 PO (14:31)
[2017-01-08] MEDS ORDERED: DRGTP12 TOP (15:08)
[2017-01-08] MEDS ORDERED: FLV1 PO (16:15)
[2017-01-08] MEDS ORDERED: LSX20 PO (16:15)
[2017-01-08] MEDS ORDERED: VNTHFA/IN INH (17:10)
[2017-01-08] MEDS ORDERED: FNTTP25 TOP (17:10)
[2017-01-08] MEDS ORDERED: IPRASOL4 INH (17:16)
[2017-01-08] MEDS ORDERED: DARU600T2 PO (17:38)
[2017-01-08] MEDS ORDERED: SYMIN160 INH (17:38)
[2017-01-08] MEDS ORDERED: RALT400T PO (17:38)
[2017-01-08] MEDS ORDERED: RITO100T PO (17:38)
[2017-02-10] MEDS ORDERED: LEVO1TAB35 PO (09:18)
== END 2016-11-20 15:50 | disposition home or self-care (01) | DRG 193 ==
LOC: EDBD 14:24 → C.EDC 14:24 → C.MED 16:47 → ENRESERV 17:22
PROVIDERS: ADMIT Internal Medicine; ATTEND Internal Medicine
DX: J18.9 Pneumonia, unspecified organism (principal); A41.9 Sepsis, unspecified organism; B97.35 Human immunodeficiency virus, type 2 [HIV 2] as the cause of diseases classified elsewhere; E87.2 Acidosis; R51 Headache; T45.1X5A Adverse effect of antineoplastic and immunosuppressive drugs, initial encounter; K21.9 Gastro-esophageal reflux disease without esophagitis; R00.0 Tachycardia, unspecified; J44.9 Chronic obstructive pulmonary disease, unspecified; I10 Essential (primary) hypertension; Z86.73 Personal history of transient ischemic attack (TIA), and cerebral infarction without residual deficits; G89.29 Other chronic pain; G62.9 Polyneuropathy, unspecified; Z83.3 Family history of diabetes mellitus; Z82.49 Family history of ischemic heart disease and other diseases of the circulatory system; Z80.1 Family history of malignant neoplasm of trachea, bronchus and lung; Z79.82 Long term (current) use of aspirin

== ENCOUNTER → 2017-01-05 | Day surgery (SDC) | payer OTHER ==
[2016-12-28 14:31] VITALS: Ht 182.9 cm; Wt 82.7 kg
[~2017-01-05] VITALS: Ht 182.9 cm; Wt 82.7 kg
[~2017-01-05] MED LIST changes: +AMLO2.5T PO; +AMT/50 PO; +ASPI81TA21 PO; +ATOR-22 PO; +DARU600T2 PO; +DOCU-94 PO; +DRGTP12 TOP; +DXY100 PO; +FENTANYL CITRATE INJ 50 MCG/1 ML 2 ML VIAL ONE; +FLV1 PO; +FNTTP25 TOP; +HYG25 PO; +IPRASOL4 INH; +LEVO1TAB35 PO; +LIDOCAINE HCL 2% 2 ML VIAL (20MG/ML) ONE; +LOSA100T65 PO; +LPT/20 PO; -LPT/40 PO; +LSX20 PO; +METO100T14 PO; +NRV5 PO; +ONDA4TAB9 PO; -OXY/15 PO; +OXYC-609 PO; +OXYC1CAP5 PO; +PLV75 PO; +PROPOFOL IV EMULSION 10 MG/ML 20 ML VIAL IV ONE; +RALT400T PO; +RITO100T PO; +SODIUM CHLORIDE 0.9% 500ML 500 ML IV ONE; +SYMIN160 INH; +VNTHFA/IN INH
[2017-01-05 12:56] VITALS: TEMP 36.4
--- NOTE | 2017-01-05 13:31 | Endo History and Physical ---
History & Physical Date of Service: Jan 05, 2017. Chief Complaint: anal intrepithelial neoplasia Referring Physician: Dr. Guillermo Burdick History of Present Illness 51 yo presenting for evaluation colonoscopy for AIN of squamous rectal mucosa. Past Medical History High Cholesterol, Heart Disease, Hypertension, COPD, CVA/TIA, MA Past Surgical History Hx Cardiac Surgery: No Hx Internal Defibrillator: No Hx Pacemaker: No Hx Abdominal Surgery: No Hx of Implantable Prosthesis: No Hx Post-Op Nausea and Vomiting: No Hx Cancer Surgery: No Hx Thoracic Surgery: No Hx Orthopedic: No Hx Urinary Tract Surgery: No Family History None Social History Smoking Status: Current Every Day Smoker Hx Substance Use: Yes (SEE MED/REC) Hx Alcohol Use: Yes ("SOBER FOR 5-6 YEARS") Allergies Coded Allergies: Penicillins (Verified Allergy, Severe, ANAPHYLAXIS, 12/28/16) Azithromycin (Verified Allergy, Intermediate, RASH AND SKIN PEELING, ) Niacin (Verified Allergy, Intermediate, RASH, 12/28/16) Sulfa Antibiotics (Verified Allergy, Unknown, "ITCHY RASH", 12/28/16) Tramadol (Verified Allergy, Unknown, RASH, 12/28/16) Gabapentin (Verified Adverse Reaction, Intermediate, hallucinations, ) Shellfish (Verified Adverse Reaction, Intermediate, gi symptoms, 12/28/16) Topiramate (Verified Adverse Reaction, Intermediate, NAUSEA, 12/28/16) Meloxicam (Verified Adverse Reaction, Unknown, GI SYMPTOMS, 12/28/16) Current Medications Reported Home Medications Medications Dose Route/Sig Max Daily Dose Days Date Category Dose Instructions Colace (Docusate Sodium) 100 Mg Cap 1 Cap PO BID PRN 30 12/28/16 Reported Lipitor (Atorvastatin Calcium) 20 Mg Tab 20 Mg PO QPM 12/28/16 Reported Amlodipine Besylate 5 Mg Tab 5 Mg PO QAM 30 11/20/16 Rx Oxycodone Hcl 5 Mg Cap 1 Cap PO TID PRN 30 11/17/16 Reported Duoneb (Ipratropium-Albuterol) 3 Ml Nebu 1 Treatment INH Q4H PRN 11/17/16 Reported Fentanyl 12 Mcg Tdsy 12 Mcg TOP Q72H 11/17/16 Reported GOES ALONG WITH THE 25MCG Fentanyl 25 Mcg Tdsy 25 Mcg TD Q72HRS 10/22/16 Reported GOES ALONG WITH 12MCG Ventolin Hfa (Albuterol) 200 Puffs/78080 Mcg Aers 2 Puffs INH Q6H PRN 10/22/16 Reported Folic Acid 1 Mg Tab 1 Mg PO QAM 03/24/16 Reported Zofran (Ondansetron HCl) 4 Mg Tab 4 Mg PO Q6 PRN 03/24/16 Reported Furosemide 20 Mg Tab 20 Mg PO DAILY PRN 03/24/16 Reported Cozaar (Losartan Potassium) 100 Mg Tab 100 Mg PO QAM 03/24/16 Reported Metoprolol Tartrate 100 Mg Tab 100 Mg PO BID 02/22/16 Reported Aspirin Ec (Aspirin) 81 Mg Tab 81 Mg PO QAM 06/21/15 Reported Plavix (Clopidogrel Bisulfate) 75 Mg Tab 75 Mg PO QAM 06/21/15 Reported Amitriptyline Hcl 50 Mg Tab 50 Mg PO HS 04/01/15 Reported PT MAY TAKE 50MG IN AM IF NEEDED. Prezista (Darunavir Ethanolate) 600 Mg Tab 600 Mg PO BID 03/05/15 Reported TAKE THIS MEDICATION WITH FOOD Hygroton (Chlorthalidone) 25 Mg Tab 25 Mg PO QAM 03/05/15 Reported Isentress (Raltegravir Potassium) 400 Mg Tab 400 Mg PO BID 03/05/15 Reported Norvir (Ritonavir) 100 Mg Tab 100 Mg PO BID 03/05/15 Reported Symbicort 160/4.5 Inhaler (Budesonide/Formoterol Fumarate) 120 Puffs/ Aero 2 Puffs INH BID 03/05/15 Reported Vital Signs Weight (Kilograms): 82.73 Height (Feet): 6 Height (Inches): 0 Date Time Temp Pulse Resp B/P (MAP) Pulse Ox O2 Delivery O2 Flow Rate FiO2 01/05/17 12:56 36.4 78 18 138/79 (98) 95 Room Air Physical Exam General Appearance: WD/WN, no apparent distress Respiratory/Chest: Respiratory effort: no dyspnea Auscultation: breath sounds normal, CTA except as noted Cardiovascular: Apical Impulse: not displaced Heart Auscultation: RRR, normal S1, normal S2 Abdomen: Bowel Sounds: normal Inspection & Palpation: soft, non-distended Assessment and Plan 51 yo presenting for colonoscopy
--- NOTE | 2017-01-05 14:55 | GI REPORT ---
Procedure Date: 01/05/2017 1:27 PM Procedure: Colonoscopy Indications: Follow-up of anal canal cancer Medicines: General Anesthesia Complications: No immediate complications. Estimated blood loss: None. Estimated Blood Loss: Estimated blood loss: none. Procedure: Pre-Anesthesia Assessment: - Pre-Anesthesia Assessment: - Prior to the procedure, a History and Physical was performed, and patient medications, allergies and sensitivities were reviewed. The patient's tolerance of previous anesthesia was reviewed. Please see [email or web address] for complete details. - The risks and benefits of the procedure and the sedation options and risks were discussed with the patient. All questions were answered and informed consent was obtained. - Patient identification and proposed procedure were verified prior to the procedure by the physician and the nurse. The procedure was verified in the pre-procedure area in the procedure room. After obtaining informed consent, the endoscope was passed carefully and meticuously under direct vision and only advanced when the lumen was clearly identified, C02 insuflation was utilized throughout the entirity of the procedure. Throughout the procedure, the patient's blood pressure, pulse, and oxygen saturations were monitored continuously. After I obtained informed consent, the scope was passed under direct vision. Throughout the procedure, the patient's blood pressure, pulse, and oxygen saturations were monitored continuously. The scope was introduced through the anus and advanced to the terminal ileum, with identification of the appendiceal orifice and IC valve. The colonoscopy was performed without difficulty. The patient tolerated the procedure well. The quality of the bowel preparation was good. Findings: A 12 mm polyp was found in the transverse colon. The polyp was sessile. The polyp was removed with a saline injection-lift technique using a hot snare. Resection and retrieval were complete. To prevent bleeding post-intervention, one hemostatic clip was successfully placed. There was no bleeding during, and at the end, of the procedure. A 8 mm polyp was found in the transverse colon. The polyp was sessile. The polyp was removed with a hot snare. Resection and retrieval were complete. A 10 mm polyp was found in the descending colon. The polyp was sessile. To prevent bleeding post-intervention, one hemostatic clip was successfully placed. There was no bleeding during, and at the end, of the procedure. Multiple small-mouthed diverticula were found in the sigmoid colon. Internal hemorrhoids were found during retroflexion. The exam was otherwise without abnormality on direct and retroflexion views. Impression: - One 12 mm polyp in the transverse colon, removed using injection-lift and a hot snare. Resected and retrieved. Clip was placed. - One 8 mm polyp in the transverse colon, removed with a hot snare. Resected and retrieved. - One 10 mm polyp in the descending colon. Clip was placed. - Diverticulosis in the sigmoid colon. - Internal hemorrhoids. - The examination was otherwise normal on direct and retroflexion views. Recommendation: - Discharge patient to home (with escort). - Repeat colonoscopy in 3 years for surveillance based on pathology results. - Return to referring physician as previously scheduled. Alber Chin MD 01/05/2017 2:55:04 PM This report has been signed electronically. Note Initiated On: 01/05/2017 1:27 PM I attest to the content of the Intraoperative Record and orders documented therein, exceptions below
--- NOTE | 2017-01-05 14:59 | Discharge Instructions ---
Endoscopy Patient Instructions Date / Procedure(s) Performed Jan 05, 2017. Colonoscopy Allergy Information Coded Allergies: Penicillins (Verified Allergy, Severe, ANAPHYLAXIS, 12/28/16) Azithromycin (Verified Allergy, Intermediate, RASH AND SKIN PEELING, ) Niacin (Verified Allergy, Intermediate, RASH, 12/28/16) Sulfa Antibiotics (Verified Allergy, Unknown, "ITCHY RASH", 12/28/16) Tramadol (Verified Allergy, Unknown, RASH, 12/28/16) Gabapentin (Verified Adverse Reaction, Intermediate, hallucinations, ) Shellfish (Verified Adverse Reaction, Intermediate, gi symptoms, 12/28/16) Topiramate (Verified Adverse Reaction, Intermediate, NAUSEA, 12/28/16) Meloxicam (Verified Adverse Reaction, Unknown, GI SYMPTOMS, 12/28/16) Discharge Date / Findings Jan 05, 2017. One 12 mm polyp in the transverse colon, removed using injection-lift and a hot snare. Resected and retrieved. Clip was placed. - One 8 mm polyp in the transverse colon, removed with a hot snare. Resected and retrieved. - One 10 mm polyp in the descending colon. Clip was placed. - Diverticulosis in the sigmoid colon. - Internal hemorrhoids. - The examination was otherwise normal on direct and retroflexion views. Medication Instructions Stopped Medication(s): stopped Plavix 12/27.,ASA 5 days ago,Hygroton 5 days ago Provider Instructions Activity Restrictions - No exercising or heavy lifting for 24 hours. - Do not drink alcohol the day of the procedure. - Do not drive a car or operate machinery until the day after the procedure. - Do not make any important decisions or sign important papers in 24 hours after the procedure. Following Day: - Return to full activity which may include returning to work/school. Diet Start your diet with liquids and light foods (jello, soup, juice, toast). Then eat your usual diet if not nauseated. Treatment For Common After Affects For mild abdominal pain, bloating, or excessive gas: - Rest - Eat lightly - Lie on right side Follow-Up Information Follow-up with Dr. Guillermo Burdick as scheduled Anesthesia Information What You Should Know You have had a procedure that required some medicine to reduce anxiety and discomfort. This treatment is called moderate sedation. After receiving the treatment, you may be sleepy, but you will be able to breathe on your own. The effects of the treatment may last for several hours. Follow these instructions along with Activity/Diet recommendations noted above: * Do NOT do anything where dizziness or clumsiness would be dangerous. * Rest quietly at home today, then you can be up and about tomorrow. * Have a responsible person stay with you the rest of today. * You may have had an I.V. today. If so, you may take the dressing off later today. Recommendations Call your doctor if: * Trouble breathing * Continuous vomiting for more than 24 hours * Temperature above 101 degrees * Severe abdominal pain or bloating * Pain not relieved by pain medicine ordered * There is increased drainage or redness from any incision * A large amount of rectal bleeding greater than 2-3 tablespoons. (If you had a polyp/s removed or have hemorrhoids, a small amount of blood - from the rectum is to be expected.) * You have any unanswered questions or concerns. IN THE EVENT OF A SERIOUS EMERGENCY, GO TO THE NEAREST EMERGENCY ROOM Your discharge instructions were prepared by provider Alber Chin. Patient Instructions Signature Page Dion Higgins Patient (or Guardian) Signature/Date: I have read and understand the instructions given to me by my caregivers. Caregiver/RN/Doctor Signature/Date: The above-named patient and/or guardian has received patient instructions on this date. + Original Patient Signature Page (only) stays with chart. Please make copy for patient.
--- NOTE | 2017-01-05 15:07 | Anesthesiology Progress Note ---
Anesthesia Post Op Note Date & Time Jan 05, 2017 at 15:07 Vital Signs Pain Intensity: 8 Vital Signs Past 12 Hours Date Time Temp Pulse Resp B/P (MAP) Pulse Ox O2 Delivery O2 Flow Rate FiO2 01/05/17 14:58 84 20 111/70 (84) 98 Room Air 01/05/17 12:56 36.4 78 18 138/79 (98) 95 Room Air Notes Mental Status: alert / awake / arousable, participated in evaluation Pt Amnestic to Procedure: Yes Nausea / Vomiting: adequately controlled Pain: adequately controlled Airway Patency, RR, SpO2: stable & adequate BP & HR: stable & adequate Hydration State: stable & adequate Anesthetic Complications: no major complications apparent
[2017-01-05 15:27] VITALS: BP 139/94; PULSE 69; O2SAT 100
== END | disposition home or self-care (01) ==
LOC: C.GI 12:30
PROVIDERS: ATTEND Internal Medicine
DX: Z85.048 Personal history of other malignant neoplasm of rectum, rectosigmoid junction, and anus (principal); D12.3 Benign neoplasm of transverse colon; D12.4 Benign neoplasm of descending colon; K57.30 Diverticulosis of large intestine without perforation or abscess without bleeding; K64.8 Other hemorrhoids; E78.00 Pure hypercholesterolemia, unspecified; I10 Essential (primary) hypertension; J44.9 Chronic obstructive pulmonary disease, unspecified; I25.2 Old myocardial infarction; Z86.73 Personal history of transient ischemic attack (TIA), and cerebral infarction without residual deficits; F17.200 Nicotine dependence, unspecified, uncomplicated; Z79.82 Long term (current) use of aspirin; E78.5 Hyperlipidemia, unspecified; K21.9 Gastro-esophageal reflux disease without esophagitis; F41.9 Anxiety disorder, unspecified; F32.9 Major depressive disorder, single episode, unspecified; Z21 Asymptomatic human immunodeficiency virus [HIV] infection status; Z86.14 Personal history of Methicillin resistant Staphylococcus aureus infection

== ENCOUNTER 2017-01-08 17:56 | Emergency (ER) | payer OTHER ==
[~2017-01-08] VITALS: Ht 182.9 cm; Wt 88.2 kg
[~2017-01-08 17:56] MED LIST changes: -AMLO2.5T PO; -AMT/50 PO; -ASPI81TA21 PO; -DXY100 PO; -FENTANYL CITRATE INJ 50 MCG/1 ML 2 ML VIAL ONE; -HYG25 PO; -LEVO1TAB35 PO; -LIDOCAINE HCL 2% 2 ML VIAL (20MG/ML) ONE; -LOSA100T65 PO; -LPT/20 PO; -METO100T14 PO; -ONDA4TAB9 PO; -OXYC-609 PO; -PLV75 PO; -PROPOFOL IV EMULSION 10 MG/ML 20 ML VIAL IV ONE; -SODIUM CHLORIDE 0.9% 500ML 500 ML IV ONE
[2017-01-08 18:05] VITALS: TEMP 36.4; Ht 182.9 cm; Wt 88.2 kg
[2017-01-08] MEDS ORDERED: MoRPHine SULFATE 4 MG/ML 1 ML CARP\\VIAL IV STA (18:16)
[2017-01-08] MEDS ORDERED: SODIUM CHLORIDE 0.9% 1000ML 1,000 ML IV STA (18:16)
--- NOTE | 2017-01-08 18:22 | EMERGENCY ROOM VISIT NOTE ---
History Report prepared by Brittni: Neal Carlisle Under the Supervision of: Dr. Madelaine Day D.O. First contact with patient: 18:05 Chief Complaint: ABDOMINAL PAIN Stated Complaint: ABD PAIN History of Present Illness The patient is a 51 year old male who presents to the Emergency Room with complaints of constant abdominal pain that started two days ago. He reports that he has been experiencing abdominal discomfort, pressure, pain, and bloating when he woke up two days ago. He also reports he has been experiencing diarrhea, with six episodes today, and vomiting, with one episode today after eating toast and drinking decaffeinated coffee. The patient also admits to experiencing diaphoresis and chills. He states that he recently had a colonoscopy three days ago for his regular check up of polyps in his colon. He states that he recently had 2 polyps removed, which were seared and capped. The patient states that he is unable to have an MRI for 60 days due to the metal from capping. He also reports a history of HIV, and states that his CD4 was normal, but his T count was off. He states that he has not missed a dose of medication, and has a Fentanyl patch and 5 mg of Percocet for the neuropathy in his feet bilaterally. The patient denies any hematochezia or melena, fevers, missing a dose of medication, urinary symptoms, and a cough. Source of History: patient Onset: two days ago Position: abdomen Quality: pressure, other (bloating) Timing: constant Associated Symptoms: + vomiting, + diarrhea, No fevers, No cough, No melena , No hematochezia, No urinary symptoms Review of Systems See HPI for pertinent positives & negatives. A total of 10 systems reviewed and were otherwise negative. Past Medical & Surgical Medical Problems: (1) ? H/o [place] (2) Anal dysplasia (3) Anxiety (4) AVM (arteriovenous malformation) brain (5) Carotid stenosis (6) Cerebritis (7) COPD (chronic obstructive pulmonary disease) (8) Depression (9) Dyslipidemia (10) Headache (11) History of alcohol abuse (12) History of CVA (cerebrovascular accident) (13) HIV disease (14) Human immunodeficiency virus infection (15) Hypertension (16) Ischemic stroke (17) Leukocytosis (18) Migraine (19) Numbness of left hand (20) Pneumonia (21) Polyp of colon (22) Sepsis (23) Syncope (24) Tachycardia Family History Diabetes mellitus FATHER MOTHER FH: cancer FATHER (lung CA) Hypertension FATHER Social History Smoking Status: Current Every Day Smoker Alcohol Use: none Drug Use: none Marital Status: Housing Status: lives with family Occupation Status: unemployed Current/Historical Medications Scheduled Aspirin Enteric Coated (Ecotrin Or Generic), 81 MG PO QAM Atorvastatin (Atorvastatin Calcium), 20 MG PO QPM Chlorthalidone (Chlorthalidone), 25 MG PO QAM Clopidogrel Bisulfate (Clopidogrel), 75 MG PO QAM Darunavir Ethanolate (Prezista), 600 MG PO BID Fentanyl (Fentanyl), 25 MCG TOP CQ72HR Fentanyl (Fentanyl), 12 MCG TOP CQ72HR Folic Acid (Folic Acid), 1 MG PO QAM Losartan Potassium (Cozaar), 100 MG PO DAILY Metoprolol Tartrate (Lopressor) (Lopressor), 100 MG PO BID Raltegravir Potassium (Isentress), 400 MG PO BID Ritonavir (Norvir), 100 MG PO BID Scheduled PRN Albuterol Hfa (Ventolin Hfa), 2 PUFFS INH Q6H PRN for Shortness of Breath Amitriptyline HCl (Amitriptyline HCl), 50-100 MG PO HS PRN for Sleep Budesonide/Formoterol Fumarate (Symbicort 160/4.5 Inhaler), 2 PUFFS INH BID PRN for Shortness of Breath Furosemide (Furosemide), 20 MG PO DAILY PRN for Edema Ipratropium-Albuterol (Duoneb), 1 TREATMENT INH Q4H PRN for SOB/Wheezing Ondansetron (Ondansetron HCl), 4 MG PO Q8 PRN for Nausea Oxycodone HCl (Oxycodone HCl), 5 MG PO TID PRN for Pain Allergies Coded Allergies: Penicillins (Verified Allergy, Severe, ANAPHYLAXIS, 12/28/16) Azithromycin (Verified Allergy, Intermediate, RASH AND SKIN PEELING, ) Niacin (Verified Allergy, Intermediate, RASH, 12/28/16) Sulfa Antibiotics (Verified Allergy, Unknown, "ITCHY RASH", 12/28/16) Tramadol (Verified Allergy, Unknown, RASH, 12/28/16) Gabapentin (Verified Adverse Reaction, Intermediate, hallucinations, ) Shellfish (Verified Adverse Reaction, Intermediate, gi symptoms, 12/28/16) Topiramate (Verified Adverse Reaction, Intermediate, NAUSEA, 12/28/16) Meloxicam (Verified Adverse Reaction, Unknown, GI SYMPTOMS, 12/28/16) Physical Exam Vital Signs Date Time Temp Pulse Resp B/P (MAP) Pulse Ox O2 Delivery O2 Flow Rate FiO2 01/08/17 22:51 92 01/08/17 22:27 92 151/96 98 Room Air 01/08/17 22:02 110 14 139/87 97 Room Air 01/08/17 21:49 92 16 139/87 98 01/08/17 20:05 99 15 153/87 97 Room Air 01/08/17 18:13 117 01/08/17 18:05 36.4 115 20 156/111 99 Room Air Physical Exam GENERAL: alert, well appearing, well nourished, no distress, non-toxic EYE EXAM: normal conjunctiva, PERRL and EOM's grossly intact OROPHARYNX: edentulous, no exudate, no erythema, lips, buccal mucosa, and tongue normal and mucous membranes are moist NECK: supple, no nuchal rigidity, no adenopathy, non-tender LUNGS: Clear to auscultation. Normal chest wall mechanics HEART: tachycardic, no murmurs, S1 normal and S2 normal ABDOMEN: mild distension of abdomen, right lower quadrant tenderness, mild tympany to percussion in upper abdomen. No pulsatile mass. abdomen soft, normo- active bowel sounds, no rebound or guarding. BACK: Back is symmetrical on inspection and there is no deformity, no midline tenderness, no CVA tenderness. SKIN: no rashes and no bruising UPPER EXTREMITIES: upper extremities are grossly normal. LOWER EXTREMITIES: No pitting edema. No deformities. NEURO EXAM: Normal sensorium, cranial nerves II-XII grossly intact, normal speech, no gross weakness of arms, no gross weakness of legs. Gross sensation intact. Medical Decision & Procedures ER Provider Diagnostic Interpretation: CT scan: Radiology provided the following report CT: The preliminary reading from radiology is the following. ABD/PELVIS IV CONTRAST ONLY CT DOSE: 860.75 mGycm HISTORY: Pain abd pain, s/p colo Wednesday TECHNIQUE: Multiaxial CT images of the abdomen and pelvis were performed following the use of intravenous contrast. A dose lowering technique was utilized adhering to the principles of ALARA. COMPARISON STUDY: 12/21/2012 FINDINGS: Lung bases are clear. Mild fatty infiltration of liver. Gallbladder is negative for distention. Kidneys enhance uniformly. No evidence for hydronephrosis. Clips within the colon at the splenic and hepatic flexures. Bowel pattern is nonobstructive. Bladder is midline. No free fluid within the abdomen or pelvic region. No evidence for pneumatosis or free air. IMPRESSION: 1. Colonic surgical clips in the hepatic as well as splenic flexures. 2. Fatty infiltration of liver. 3. Otherwise negative study. The above report was generated using voice recognition software. It may contain grammatical, syntax or spelling errors. Electronically signed by: James Kebede M.D. 01/08/2017 8:38 PM Dictated Date/Time: 01/08/2017 8:32 PM Laboratory Results 01/08/17 18:55 Red Blood Count 4.94, Mean Corpuscular Volume 85.8, Mean Corpuscular Hemoglobin 30.8, Mean Corpuscular Hemoglobin Concent 35.8, Mean Platelet Volume 9.5, Neutrophils (%) (Auto) 51.4, Lymphocytes (%) (Auto) 35.1, Monocytes (%) (Auto) 8.8, Eosinophils (%) (Auto) 3.8, Basophils (%) (Auto) 0.7, Neutrophils # (Auto) 4.20, Lymphocytes # (Auto) 2.87, Monocytes # (Auto) 0.72, Eosinophils # (Auto) 0.31, Basophils # (Auto) 0.06 01/08/17 18:55 01/08/17 20:37 Test 01/08/17 18:50 01/08/17 18:55 01/08/17 20:37 Urine Color YELLOW Urine Appearance CLEAR (CLEAR) Urine pH 6.0 (4.5-7.5) Urine Specific [place] 1.011 (1.000-1.030) Urine Protein NEG (NEG) Urine Glucose (UA) NEG (NEG) Urine Ketones NEG (NEG) Urine Occult Blood NEG (NEG) Urine Nitrite NEG (NEG) Urine Bilirubin NEG (NEG) Urine Urobilinogen NEG (NEG) Urine Leukocyte Esterase NEG (NEG) White Blood Count 8.18 K/uL (4.8-10.8) Red Blood Count 4.94 M/uL (4.7-6.1) Hemoglobin 15.2 g/dL (14.0-18.0) Hematocrit 42.4 % (42-52) Mean Corpuscular Volume 85.8 fL (80-100) Mean Corpuscular Hemoglobin 30.8 pg (25-34) Mean Corpuscular Hemoglobin Concent 35.8 g/dl (32-36) Platelet Count 256 K/uL (130-400) Mean Platelet Volume 9.5 fL (7.4-10.4) Neutrophils (%) (Auto) 51.4 % Lymphocytes (%) (Auto) 35.1 % Monocytes (%) (Auto) 8.8 % Eosinophils (%) (Auto) 3.8 % Basophils (%) (Auto) 0.7 % Neutrophils # (Auto) 4.20 K/uL (1.4-6.5) Lymphocytes # (Auto) 2.87 K/uL (1.2-3.4) Monocytes # (Auto) 0.72 K/uL (0.11-0.59) Eosinophils # (Auto) 0.31 K/uL (0-0.5) Basophils # (Auto) 0.06 K/uL (0-0.2) RDW Standard Deviation 43.3 fL (36.4-46.3) RDW Coefficient of Variation 13.9 % (11.5-14.5) Immature Granulocyte % (Auto) 0.2 % Immature Granulocyte # (Auto) 0.02 K/uL (0.00-0.02) Prothrombin Time 9.8 SECONDS (9.0-12.0) Prothromb Time International Ratio 0.9 (0.9-1.1) Anion Gap 2.0 mmol/L (3-11) Est Creatinine Clear Calc Drug Dose 98.8 ml/min Estimated GFR () 104.9 Estimated GFR (Non- 90.5 BUN/Creatinine Ratio 8.4 (10-20) Lactic Acid Level 0.8 mmol/L (0.4-2.0) Calcium Level 9.6 mg/dl (8.5-10.1) Total Bilirubin 0.3 mg/dl (0.2-1) Alanine Aminotransferase (ALT/SGPT) 35 U/L (12-78) Alkaline Phosphatase 114 U/L (45-117) Total Protein 7.5 gm/dl (6.4-8.2) Albumin 4.1 gm/dl (3.4-5.0) Globulin 3.4 gm/dl (2.5-4.0) Albumin/Globulin Ratio 1.2 (0.9-2) Lipase 179 U/L (73-393) Aspartate Amino Transf (AST/SGOT) 13 U/L (15-37) Laboratory results per my review. Medications Administered Medications (Trade) Dose Ordered Sig/Josh Route Start Time Stop Time Status Last Admin Dose Admin Sodium Chloride 1,000 ml @ 250 mls/hr Q4H STAT IV 01/08/17 18:16 01/08/17 22:15 DC 01/08/17 19:06 250 MLS/HR Morphine Sulfate (MoRPHine SULFATE INJ) 4 mg NOW STAT IV 01/08/17 18:16 01/08/17 18:17 DC 01/08/17 19:06 4 MG Ketorolac Tromethamine (Toradol Inj) 30 mg NOW STAT IV 01/08/17 21:29 01/08/17 21:31 DC 01/08/17 21:47 30 MG Dicyclomine HCl (Bentyl Cap) 20 mg STK-MED ONCE .ROUTE 01/08/17 21:44 01/08/17 21:45 DC 01/08/17 21:47 20 MG Fentanyl Citrate (Fentanyl Inj) 50 mcg NOW STAT IV 01/08/17 22:13 01/08/17 22:14 DC 01/08/17 22:29 50 MCG ECG Indication: abdominal pain Rate (beats per minute): 107 Rhythm: sinus tachycardia Findings: no acute ischemic change, other (normal axis and intervals) ED Course 1808: The patient was evaluated in room A12B. A complete history and physical exam was performed. 1815: Morphine Sulfate 4 mg IV, Sodium Chloride 1000 ml @ 250 mls/hr IV. 2049: I reevaluated the patient and he is resting comfortably. I updated him on the results. He needs more pain medication. His heart rate is mildly better but is still tachycardic. 2128: Toradol Injection 30 mg IV, Bentyl Tab 20 mg PO, 2143: Bentyl Cap 20 mg PO. 2212: Fentanyl Injection 50 mcg IV. 2234: Pt now asking to leave. HR improved. Pt with pain meds at home. 2252: Upon reevaluation, the patient is feeling better. I discussed the findings and the treatment plan with the patient. He verbalizes agreement and understanding. The patient was discharged home. Medical Decision Differential diagnoses includes but is not limited to gastritis, peptic ulcer disease, GERD, gallbladder disease, pancreatitis, small bowel obstruction, acute coronary syndrome, pericarditis, ischemic bowel, irritable bowel disease, irritable bowel syndrome, appendicitis, diverticulitis, malignancy, hernia, urinary tract infection, torsion, perforation, trauma, infectious. Medication Reconciliation: I attest that I have personally reviewed the patient' s current medication list. Blood pressure screening: Patient was found to have a slightly elevated blood pressure due to circumstances. I do not believe that the patient requires hypertension monitoring. Pt improved here, no recurrent diarrhea while in the ER. No evidence of post colonoscopy complication. Labs reassuring, CD4 >200. Pt initially tachy, likely from pain and mild dehydration. Improved here. Pt with pain meds at home. Discussed f/u with GI, sx to watch/return for, hydration/diet, use of regular meds, he verbalized understanding and was agreeable with plan. Doubt perf, gi bleed, mesenteric ischemia, colitis, volvulus, sbo, PUD. Doubt occult bacteremia/sepsis. Pt well appearing, tolerating po, no abdominal tenderness on repeat exam. Ambulated with a steady gait. Father driving pt home due to use of pain meds. Impression Primary Impression: Diarrhea Additional Impression: Abdominal pain Scribe Attestation The scribe's documentation has been prepared under my direction and personally reviewed by me in its entirety. I confirm that the note above accurately reflects all work, treatment, procedures, and medical decision making performed by me. Departure Information Dispostion Home / Self-Care Referrals Guillermo Burdick M.D. (PCP) Forms Call Back Authorization, HOME CARE DOCUMENTATION FORM, IMPORTANT VISIT INFORMATION Patient Instructions My [facility] Additional Instructions Please continue your medications as prescribed. If you develop any worsening pain, worsening diarrhea, notice black or bloody stools, develops fevers/chills , recurrent vomiting, or you have any other new or concerning symptoms, please return to the emergency room. Problem Qualifiers Primary Impression: Diarrhea Diarrhea type: unspecified type Qualified Codes: R19.7 - Diarrhea, unspecified Additional Impression: Abdominal pain Abdominal location: lower abdomen, unspecified Qualified Codes: R10.30 - Lower abdominal pain, unspecified
[2017-01-08] MEDS ORDERED: LOSA100T65 PO (19:03)
[2017-01-08] MEDS ORDERED: OXYC-609 PO (19:03)
[2017-01-08] MEDS ORDERED: LPT/20 PO (19:03)
[2017-01-08] MEDS ORDERED: HYG25 PO (19:03)
[2017-01-08] MEDS ORDERED: ONDA4TAB9 PO (19:03)
[2017-01-08] MEDS ORDERED: PLV75 PO (19:03)
[2017-01-08] MEDS ORDERED: ASPI81TA21 PO (19:03)
[2017-01-08] MEDS ORDERED: AMT/50 PO (19:03)
[2017-01-08] MEDS ORDERED: METO100T14 PO (19:03)
[2017-01-08 19:05] LABS: BASO % 0.7 %; BASO ABS # 0.06 K/uL (0-0.2); COMPLETE YES; EOS % 3.8 %; HEMATOCRIT 42.4 % (42-52); IG% 0.2 %; LYMPH % 35.1 %; LYMPH ABS # 2.87 K/uL (1.2-3.4); MEAN CELL VOLUME 85.8 fL (80-100); MEAN CORPUSCULAR HEMOGLOBIN 30.8 pg (25-34); MEAN CORPUSCULAR HGB CONC 35.8 g/dl (32-36); MEAN PLATELET VOLUME 9.5 fL (7.4-10.4); MONO % 8.8 %; NEUT % 51.4 %; PLATELET COUNT 256 K/uL (130-400); RED BLOOD COUNT 4.94 M/uL (4.7-6.1); WHITE BLOOD COUNT 8.18 K/uL (4.8-10.8)
[2017-01-08 19:07] LABS: URINE APPEARANCE CLEAR (CLEAR); URINE BILIRUBIN NEG (NEG); URINE COLOR YELLOW; URINE NITRITE NEG (NEG); URINE SPECIFIC GRAVITY 1.011 (1.000-1.030); UROBILINOGEN NEG (NEG); ZZUR CULT IF INDIC CLEAN CATCH NO
[2017-01-08] MEDS ORDERED: OPTIRAY 320 IV PRN (19:15)
[2017-01-08 19:16] LABS: INR 0.9 (0.9-1.1); PROTHROMBIN TIME (PATIENT) 9.8 SECONDS (9.0-12.0)
[2017-01-08 19:20] LABS: MANUAL MICROSCOPIC REQUIRED? NO; REVIEW REQ? NO
[2017-01-08 19:38] LABS: ALB/GLOB RATIO 1.2 (0.9-2); ALKALINE PHOSPHATASE 114 U/L (45-117); ALT/SGPT 35 U/L (12-78); BLOOD UREA NITROGEN 8 mg/dl (7-18); BUN/CREATININE RATIO 8.4 (10-20); CALCIUM 9.6 mg/dl (8.5-10.1); CARBON DIOXIDE 29 mmol/L (21-32); CHLORIDE 108 mmol/L (98-107); CREATININE 0.96 mg/dl (0.60-1.40); GLUCOSE 105 mg/dl (70-99); SODIUM 139 mmol/L (136-145)
--- NOTE | 2017-01-08 20:39 | DIAGNOSTIC IMAGING REPORT ---
ABD/PELVIS IV CONTRAST ONLY CT DOSE: 860.75 mGycm HISTORY: Pain abd pain, s/p colo Wednesday TECHNIQUE: Multiaxial CT images of the abdomen and pelvis were performed following the use of intravenous contrast. A dose lowering technique was utilized adhering to the principles of ALARA. COMPARISON STUDY: 12/21/2012 FINDINGS: Lung bases are clear. Mild fatty infiltration of liver. Gallbladder is negative for distention. Kidneys enhance uniformly. No evidence for hydronephrosis. Clips within the colon at the splenic and hepatic flexures. Bowel pattern is nonobstructive. Bladder is midline. No free fluid within the abdomen or pelvic region. No evidence for pneumatosis or free air. IMPRESSION: 1. Colonic surgical clips in the hepatic as well as splenic flexures. 2. Fatty infiltration of liver. 3. Otherwise negative study. The above report was generated using voice recognition software. It may contain grammatical, syntax or spelling errors. Electronically signed by: James Kebede M.D. 01/08/2017 8:38 PM Dictated Date/Time: 01/08/2017 8:32 PM
[2017-01-08 20:58] LABS: POTASSIUM 4.4 mmol/L (3.5-5.1)
[2017-01-08] MEDS ORDERED: KETOROLAC TROMETHAMINE 30 MG/ML VIAL IV STA (21:29)
[2017-01-08] MEDS ORDERED: DICYCLOMINE HCL 20 MG TAB PO STA (21:29)
[2017-01-08] MEDS ORDERED: DICYCLOMINE HCL 10 MG CAP ONE (21:44)
[2017-01-08] MEDS ORDERED: FENTANYL CITRATE INJ 50 MCG/1 ML 2 ML VIAL IV STA (22:13)
[2017-01-08 22:27] VITALS: BP 151/96; O2SAT 98
[2017-01-08 22:51] VITALS: PULSE 92
[2017-02-10] MEDS ORDERED: LEVO1TAB35 PO (09:18)
== END 2017-01-08 23:03 | disposition home or self-care (01) ==
LOC: EDBD 17:56 → C.EDA 17:58
DX: R19.7 Diarrhea, unspecified (principal); R10.30 Lower abdominal pain, unspecified; R00.0 Tachycardia, unspecified; R14.0 Abdominal distension (gaseous); R11.10 Vomiting, unspecified; I10 Essential (primary) hypertension; E78.5 Hyperlipidemia, unspecified; J44.9 Chronic obstructive pulmonary disease, unspecified; F41.9 Anxiety disorder, unspecified; F32.9 Major depressive disorder, single episode, unspecified; B20 Human immunodeficiency virus [HIV] disease; Z79.82 Long term (current) use of aspirin; Z79.899 Other long term (current) drug therapy; Z86.73 Personal history of transient ischemic attack (TIA), and cerebral infarction without residual deficits; Z86.19 Personal history of other infectious and parasitic diseases; Z87.01 Personal history of pneumonia (recurrent); Z80.1 Family history of malignant neoplasm of trachea, bronchus and lung; Z82.49 Family history of ischemic heart disease and other diseases of the circulatory system; Z83.3 Family history of diabetes mellitus

== ENCOUNTER 2017-01-10 13:27 | Observation (INO) | payer OTHER ==
[~2017-01-10] VITALS: Ht 182.9 cm; Wt 87.7 kg
[~2017-01-10 13:27] MED LIST changes: -AMIT50TA3 PO; +AMT/50 PO; +ASPI81TA21 PO; -ASPI81TA28 PO; -ATOR-22 PO; -CLOP1TAB15 PO; -DOCU-94 PO; -HYG/25 PO; +HYG25 PO; +LOSA100T65 PO; -LOSA1TAB38 PO; -LPR100 PO; +LPT/20 PO; +METO100T14 PO; -NRV5 PO; -ONDA4TAB46 PO; +ONDA4TAB9 PO; +OXYC-609 PO; -OXYC1CAP5 PO; +PLV75 PO
[2017-01-10] MEDS ORDERED: SODIUM CHLORIDE 0.9% 1000ML 1,000 ML IV STA ×3 (13:59→17:24)
--- NOTE | 2017-01-10 14:05 | EMERGENCY ROOM VISIT NOTE ---
History Report prepared by Brittni: Sony Vasquez Under the Supervision of: Dr. Wilfred Worley M.D. First contact with patient: 13:43 Chief Complaint: ILLNESS Stated Complaint: D,V, ELEV. PULSE, ABD. PAIN History of Present Illness The patient is a 51 year old male who presents to the Emergency Room with complaints of constant abdominal pain for the past few days. The patient states that he recently had polyps removed, and he states that he has yet to follow up with his GI appointment, and he has one next week. The patient states that he has been having black and brown stools, and it is mostly diarrhea. The patient states that other than the polyps he was feeling fine, and they were found on a routine colonoscopy. The patient states that he had vomiting last night, and he has the chills. The patient denies any fevers or burning with urination. He states that he ate breakfast this morning, though he had diarrhea 30 minutes afterwards. He states that he took his medications this morning including aspirin and Plavix for a past history of strokes. He does not take any Coumadin. He states that he has not drank any alcohol in the past 8 years. Additionally, he had a heart attack 7 years ago, though he does not have any stents. Also, he has chronic neuropathy in his legs. Source of History: patient Onset: past few days Position: abdomen Timing: constant Associated Symptoms: + chills, + vomiting, + melena, No fevers, No urinary symptoms Review of Systems See HPI for pertinent positives and negatives. A total of ten systems were reviewed and were otherwise negative. Past Medical & Surgical Medical Problems: (1) ? H/o NM (2) Anal dysplasia (3) Anxiety (4) AVM (arteriovenous malformation) brain (5) Carotid stenosis (6) Cerebritis (7) COPD (chronic obstructive pulmonary disease) (8) Depression (9) Diarrhea (10) Dyslipidemia (11) Headache (12) History of alcohol abuse (13) History of CVA (cerebrovascular accident) (14) HIV disease (15) Human immunodeficiency virus infection (16) Hypertension (17) Ischemic stroke (18) Leukocytosis (19) Migraine (20) Numbness of left hand (21) Pneumonia (22) Polyp of colon (23) Sepsis (24) Syncope (25) Tachycardia Family History Diabetes mellitus FATHER MOTHER FH: cancer FATHER (lung CA) Hypertension FATHER Social History Smoking Status: Current Every Day Smoker Alcohol Use: none Drug Use: none Marital Status: Housing Status: lives with family Occupation Status: unemployed Current/Historical Medications Scheduled Aspirin Enteric Coated (Ecotrin Or Generic), 81 MG PO QAM Atorvastatin (Atorvastatin Calcium), 20 MG PO QPM Chlorthalidone (Chlorthalidone), 25 MG PO QAM Clopidogrel Bisulfate (Clopidogrel), 75 MG PO QAM Darunavir Ethanolate (Prezista), 600 MG PO BID Fentanyl (Fentanyl), 25 MCG TOP CQ72HR Fentanyl (Fentanyl), 12 MCG TOP CQ72HR Folic Acid (Folic Acid), 1 MG PO QAM Losartan Potassium (Cozaar), 100 MG PO DAILY Metoprolol Tartrate (Lopressor) (Lopressor), 100 MG PO BID Raltegravir Potassium (Isentress), 400 MG PO BID Ritonavir (Norvir), 100 MG PO BID Scheduled PRN Albuterol Hfa (Ventolin Hfa), 2 PUFFS INH Q6H PRN for Shortness of Breath Amitriptyline HCl (Amitriptyline HCl), 50-100 MG PO HS PRN for Sleep Budesonide/Formoterol Fumarate (Symbicort 160/4.5 Inhaler), 2 PUFFS INH BID PRN for Shortness of Breath Furosemide (Furosemide), 20 MG PO DAILY PRN for Edema Ipratropium-Albuterol (Duoneb), 1 TREATMENT INH Q4H PRN for SOB/Wheezing Ondansetron (Ondansetron HCl), 4 MG PO Q8 PRN for Nausea Oxycodone HCl (Oxycodone HCl), 5 MG PO TID PRN for Pain Allergies Coded Allergies: Penicillins (Verified Allergy, Severe, ANAPHYLAXIS, 12/28/16) Azithromycin (Verified Allergy, Intermediate, RASH AND SKIN PEELING, ) Niacin (Verified Allergy, Intermediate, RASH, 12/28/16) Sulfa Antibiotics (Verified Allergy, Unknown, "ITCHY RASH", 12/28/16) Tramadol (Verified Allergy, Unknown, RASH, 12/28/16) Gabapentin (Verified Adverse Reaction, Intermediate, hallucinations, ) Shellfish (Verified Adverse Reaction, Intermediate, gi symptoms, 12/28/16) Topiramate (Verified Adverse Reaction, Intermediate, NAUSEA, 12/28/16) Meloxicam (Verified Adverse Reaction, Unknown, GI SYMPTOMS, 12/28/16) Physical Exam Vital Signs Date Time Temp Pulse Resp B/P (MAP) Pulse Ox O2 Delivery O2 Flow Rate FiO2 01/10/17 16:49 115 18 136/88 100 Room Air 01/10/17 16:00 124 18 118/83 100 Room Air 01/10/17 15:22 115 18 148/110 98 01/10/17 13:35 36.4 144 20 132/96 100 Room Air Physical Exam GENERAL: Awake, alert, fatigued-appearing, in no distress HENT: Dry mucous membranes. Normocephalic, atraumatic. Oropharynx unremarkable. EYES: Normal conjunctiva. Sclera non-icteric. NECK: Supple. No nuchal rigidity. FROM. No JVD. RESPIRATORY: Clear to auscultation. CARDIAC: tachycardic rate in the 130s, normal rhythm. Extremities warm and well perfused. Pulses equal. ABDOMEN: Mild tenderness in the left lower quadrant. Soft, non-distended. No rebound or guarding. No masses. RECTAL: Deferred. MUSCULOSKELETAL: Chest examination reveals no tenderness. The back is symmetrical on inspection without obvious abnormality. There is no CVA tenderness to palpation. No joint edema. LOWER EXTREMITIES: Calves are equal size bilaterally and non-tender. No edema. No discoloration. NEURO: Normal sensorium. No sensory or motor deficits noted. SKIN: No rash or jaundice noted. Medical Decision & Procedures ER Provider Diagnostic Interpretation: Radiology results as stated below per my review and radiologist interpretation: CHEST ONE VIEW PORTABLE CLINICAL HISTORY: cp dyspnea COMPARISON STUDY: 11/17/2016 FINDINGS: The bones soft tissues and hemidiaphragms are normal. The cardiomediastinal silhouette is normal. The lungs are clear. The pulmonary vasculature is normal. IMPRESSION: Negative chest. The above report was generated using voice recognition software. It may contain grammatical, syntax or spelling errors. Electronically signed by: James Kebede M.D. 01/10/2017 2:23 PM Dictated Date/Time: 01/10/2017 2:23 PM Laboratory Results 01/10/17 14:14 Red Blood Count 4.97, Mean Corpuscular Volume 86.3, Mean Corpuscular Hemoglobin 30.2, Mean Corpuscular Hemoglobin Concent 35.0, Mean Platelet Volume 9.6, Neutrophils (%) (Auto) 60.5, Lymphocytes (%) (Auto) 28.3, Monocytes (%) (Auto) 8.6, Eosinophils (%) (Auto) 1.3, Basophils (%) (Auto) 1.0, Neutrophils # (Auto) 5.60, Lymphocytes # (Auto) 2.62, Monocytes # (Auto) 0.80, Eosinophils # (Auto) 0.12, Basophils # (Auto) 0.09 01/10/17 14:14 Test 01/10/17 14:14 01/10/17 14:56 White Blood Count 9.26 K/uL (4.8-10.8) Red Blood Count 4.97 M/uL (4.7-6.1) Hemoglobin 15.0 g/dL (14.0-18.0) Hematocrit 42.9 % (42-52) Mean Corpuscular Volume 86.3 fL (80-100) Mean Corpuscular Hemoglobin 30.2 pg (25-34) Mean Corpuscular Hemoglobin Concent 35.0 g/dl (32-36) Platelet Count 226 K/uL (130-400) Mean Platelet Volume 9.6 fL (7.4-10.4) Neutrophils (%) (Auto) 60.5 % Lymphocytes (%) (Auto) 28.3 % Monocytes (%) (Auto) 8.6 % Eosinophils (%) (Auto) 1.3 % Basophils (%) (Auto) 1.0 % Neutrophils # (Auto) 5.60 K/uL (1.4-6.5) Lymphocytes # (Auto) 2.62 K/uL (1.2-3.4) Monocytes # (Auto) 0.80 K/uL (0.11-0.59) Eosinophils # (Auto) 0.12 K/uL (0-0.5) Basophils # (Auto) 0.09 K/uL (0-0.2) RDW Standard Deviation 44.3 fL (36.4-46.3) RDW Coefficient of Variation 14.0 % (11.5-14.5) Immature Granulocyte % (Auto) 0.3 % Immature Granulocyte # (Auto) 0.03 K/uL (0.00-0.02) Anion Gap 9.0 mmol/L (3-11) Est Creatinine Clear Calc Drug Dose 94.9 ml/min Estimated GFR () 99.8 Estimated GFR (Non- 86.2 BUN/Creatinine Ratio 7.1 (10-20) Lactic Acid Level 2.0 mmol/L (0.4-2.0) Calcium Level 9.8 mg/dl (8.5-10.1) Phosphorus Level 1.9 mg/dl (2.5-4.9) Magnesium Level 2.0 mg/dl (1.8-2.4) Total Bilirubin 0.2 mg/dl (0.2-1) Direct Bilirubin < 0.1 mg/dl (0-0.2) Aspartate Amino Transf (AST/SGOT) 15 U/L (15-37) Alanine Aminotransferase (ALT/SGPT) 33 U/L (12-78) Alkaline Phosphatase 104 U/L (45-117) Troponin I < 0.015 ng/ml (0-0.045) Total Protein 7.6 gm/dl (6.4-8.2) Albumin 4.2 gm/dl (3.4-5.0) Prothrombin Time 10.0 SECONDS (9.0-12.0) Prothromb Time International Ratio 0.9 (0.9-1.1) Laboratory results reviewed by me Medications Administered Medications (Trade) Dose Ordered Sig/Josh Route Start Time Stop Time Status Last Admin Dose Admin Sodium Chloride 1,000 ml @ 999 mls/hr Q1H1M STAT IV 01/10/17 13:59 01/10/17 14:59 DC 01/10/17 14:49 999 MLS/HR Sodium Chloride 1,000 ml @ 999 mls/hr Q1H1M STAT IV 01/10/17 15:04 01/10/17 16:04 DC 01/10/17 15:22 999 MLS/HR Miscellaneous Medication (Gi Cocktail) 24 ml NOW STAT PO 01/10/17 15:04 01/10/17 15:06 DC 01/10/17 15:19 24 ML Famotidine (Pepcid 20mg/100 ml) 20 mg ONE STAT IV 01/10/17 15:47 01/10/17 15:49 DC 01/10/17 16:01 20 MG Fentanyl Citrate (Fentanyl Inj) 50 mcg NOW STAT IV 01/10/17 15:47 01/10/17 15:49 DC 01/10/17 16:01 50 MCG Sodium Chloride 1,000 ml @ 999 mls/hr Q1H1M STAT IV 01/10/17 17:24 01/10/17 18:24 01/10/17 17:32 999 MLS/HR ECG Indication: abdominal pain Rate (beats per minute): 133 Rhythm: sinus tachycardia Findings: no acute ischemic change, other (Normal Anderson) ED Course 1343: The patient was evaluated in room B9. A complete history and physical exam was performed. 1359: Sodium Chloride 1000 ml @ 999 mls/hr IV 1504: GI Cocktail 24ml PO 1528: I reevaluated the patient, and he was resting 1547: Fentanyl Inj 50mcg IV, Pepcid 20mg/100ml 20mg IV 1719: I reevaluated the patient, and he is doing better. His heart rate is still 110-120 after a few liters of fluid. I talked about admission and hydration, and he was agreeable. 1724: Sodium Chloride 1000 ml @ 999 mls/hr IV 1736: Discussed the patient's case with Fawn Simpson [facility]. The patient will be evaluated for further treatment and disposition. Medical Decision Triage Nursing notes reviewed. The patient's presentation and history were concerning for diverticulitis vs. peptic ulcer disease vs. diverticulosis vs. possible gastroenteritis, less likely partial obstruction. Medication Reconcilliation Current Medication List: was personally reviewed by me Blood Pressure Screening Patient's blood pressure: Elevated blood pressure Blood pressure disposition: Elevated BP felt to be situational Consults Time Called: 172 [facility]ing [facility] Returned Call: [phone] [facility] The patient will be evaluated for further treatment and disposition. Impression Primary Impression: Gastroenteritis Additional Impression: Dehydration Scribe Attestation The scribe's documentation has been prepared under my direction and personally reviewed by me in its entirety. I confirm that the note above accurately reflects all work, treatment, procedures, and medical decision making performed by me. Departure Information Dispostion Being Evaluated By Hospitalist Referrals Guillermo Burdick M.D. (PCP) Patient Instructions My [facility] Problem Qualifiers
--- NOTE | 2017-01-10 14:25 | DIAGNOSTIC IMAGING REPORT ---
CHEST ONE VIEW PORTABLE CLINICAL HISTORY: cp dyspnea COMPARISON STUDY: 11/17/2016 FINDINGS: The bones soft tissues and hemidiaphragms are normal. The cardiomediastinal silhouette is normal. The lungs are clear. The pulmonary vasculature is normal. IMPRESSION: Negative chest. The above report was generated using voice recognition software. It may contain grammatical, syntax or spelling errors. Electronically signed by: James Kebede M.D. 01/10/2017 2:23 PM Dictated Date/Time: 01/10/2017 2:23 PM
[2017-01-10 14:38] LABS: BASO ABS # 0.09 K/uL (0-0.2); COMPLETE YES; EOS % 1.3 %; HEMATOCRIT 42.9 % (42-52); IG% 0.3 %; LYMPH % 28.3 %; LYMPH ABS # 2.62 K/uL (1.2-3.4); MEAN CELL VOLUME 86.3 fL (80-100); MEAN CORPUSCULAR HEMOGLOBIN 30.2 pg (25-34); MEAN PLATELET VOLUME 9.6 fL (7.4-10.4); MONO % 8.6 %; NEUT % 60.5 %; PLATELET COUNT 226 K/uL (130-400); RED BLOOD COUNT 4.97 M/uL (4.7-6.1); WHITE BLOOD COUNT 9.26 K/uL (4.8-10.8)
[2017-01-10 14:49] LABS: ALT/SGPT 33 U/L (12-78); BLOOD UREA NITROGEN 7 mg/dl (7-18); BUN/CREATININE RATIO 7.1 (10-20); CALCIUM 9.8 mg/dl (8.5-10.1); CARBON DIOXIDE 26 mmol/L (21-32); CHLORIDE 107 mmol/L (98-107); GLUCOSE 134 mg/dl (70-99); POTASSIUM 3.9 mmol/L (3.5-5.1); SODIUM 142 mmol/L (136-145)
[2017-01-10 14:55] LABS: ALKALINE PHOSPHATASE 104 U/L (45-117); AST/SGOT 15 U/L (15-37); PHOSPHORUS 1.9 mg/dl (2.5-4.9)
[2017-01-10] MEDS ORDERED: GI COCKTAIL PO STA (15:04)
[2017-01-10] MEDS ORDERED: ALUMINUM/MAGNESIUM SUSP 30 ML UDC ONE (15:17)
[2017-01-10] MEDS ORDERED: LIDOCAINE HCL 2% VISC SOLN 20 ML UDC ONE (15:17)
[2017-01-10 15:24] LABS: INR 0.9 (0.9-1.1)
[2017-01-10] MEDS ORDERED: FENTANYL CITRATE INJ 50 MCG/1 ML 2 ML VIAL IV STA (15:47)
[2017-01-10] MEDS ORDERED: FAMOTIDINE 20MG/102 ML D5W IV STA (15:47)
[2017-01-10] MEDS ORDERED: MAGNESIUM HYDROXIDE SUSP 30 ML UDC PO PRN (18:00)
[2017-01-10] MEDS ORDERED: ONDANSETRON INJ 2 MG/ML 2 ML VIAL IV PRN (18:00)
[2017-01-10] MEDS ORDERED: ACETAMINOPHEN 325 MG TAB PO PRN (18:00)
[2017-01-10] MEDS ORDERED: POLYETHYLENE (MIRALAX) 17 GM PACK PO PRN (18:00)
[2017-01-10] MEDS ORDERED: ALUMINUM/MAGNESIUM/SIMETH (MAALOX MAX) 30 ML UDC PO PRN (18:00)
--- NOTE | 2017-01-10 18:01 | History and Physical ---
History & Physical Date & Time of Service: Jan 10, 2017 at 18:00 Chief Complaint: D,V, Elev. Pulse, Abd. Pain Primary Care Physician: Guillermo Burdick M.D. History of Present Illness Source: patient this is a 51 yo M with medical hx of HIV disease , rectal Ca in situ s/p surgical resection , HIV-1 related autonomic neuropathy, HTN , hx of CVA WITH CAROTID ARTERY STENOSIS , CSF pleocytosis . AVM of brain presents to ER with complains of persisted loose watery diarrhea , left lower quadrant abdominal pain , nausea /vomiting , Pt had colonoscopy done on Wednesday01/05/17 at [facility] by Dr Chin -found to have multiple polys at transverse and descending colon -which were resected noted to have diverticulosis of colon Pt has chronic diarrhea , his symptom got worse after the procedure , associated with severe abdominal pain , localized mainly to left lower quadrant , associated with gas and bloating was seen in ED on Wednesday for GI symptom CT abdomen /pelvis was unremarkable -lab work was wnl limit , pt was discharged form ED ,with recommendation for follow up with family physician today pt presents with worsening of diarrhea , having dark stool , nausea , 2 episodes of vomiting , chills , in the ER -wbc was wnl , metabolic panel unremarkable , normal lactic acid found to be in sinus tachycardia , HR improved after IV hydration and pain control Past Medical/Surgical History Medical Problems: (1) ? H/o IN Status: Chronic (2) Anal dysplasia Status: Chronic (3) Anxiety Status: Chronic (4) AVM (arteriovenous malformation) brain Status: Chronic (5) Carotid stenosis Permanent Comment: 03/06/15-SAÚL occlusion, LICA with 50-59% stenosis Status: Chronic (6) Cerebritis Status: Resolved (7) COPD (chronic obstructive pulmonary disease) Status: Chronic (8) Depression Status: Chronic (9) Dyslipidemia Status: Chronic (10) History of alcohol abuse Status: Resolved (11) History of CVA (cerebrovascular accident) Permanent Comment: in setting of right carotid artery thrombosis Status: Chronic (12) Human immunodeficiency virus infection Status: Chronic (13) Hypertension Status: Chronic (14) Ischemic stroke Status: Resolved (15) Migraine Status: Chronic (16) Polyp of colon Status: Chronic (17) Sepsis Status: Resolved Family History Diabetes mellitus FATHER MOTHER FH: cancer FATHER (lung CA) Hypertension FATHER Social History Smoking Status: Current Every Day Smoker Drug Use: none Marital Status: Housing status: lives with significant other Occupational Status: unemployed Allergies Coded Allergies: Penicillins (Verified Allergy, Severe, ANAPHYLAXIS, 12/28/16) Azithromycin (Verified Allergy, Intermediate, RASH AND SKIN PEELING, ) Niacin (Verified Allergy, Intermediate, RASH, 12/28/16) Sulfa Antibiotics (Verified Allergy, Unknown, "ITCHY RASH", 12/28/16) Tramadol (Verified Allergy, Unknown, RASH, 12/28/16) Gabapentin (Verified Adverse Reaction, Intermediate, hallucinations, ) Shellfish (Verified Adverse Reaction, Intermediate, gi symptoms, 12/28/16) Topiramate (Verified Adverse Reaction, Intermediate, NAUSEA, 12/28/16) Meloxicam (Verified Adverse Reaction, Unknown, GI SYMPTOMS, 12/28/16) Home Medications Scheduled Aspirin Enteric Coated (Ecotrin Or Generic), 81 MG PO QAM Atorvastatin (Atorvastatin Calcium), 20 MG PO QPM Chlorthalidone (Chlorthalidone), 25 MG PO QAM Clopidogrel Bisulfate (Clopidogrel), 75 MG PO QAM Darunavir Ethanolate (Prezista), 600 MG PO BID Fentanyl (Fentanyl), 25 MCG TOP CQ72HR Fentanyl (Fentanyl), 12 MCG TOP CQ72HR Folic Acid (Folic Acid), 1 MG PO QAM Losartan Potassium (Cozaar), 100 MG PO DAILY Metoprolol Tartrate (Lopressor) (Lopressor), 100 MG PO BID Raltegravir Potassium (Isentress), 400 MG PO BID Ritonavir (Norvir), 100 MG PO BID Scheduled PRN Albuterol Hfa (Ventolin Hfa), 2 PUFFS INH Q6H PRN for Shortness of Breath Amitriptyline HCl (Amitriptyline HCl), 50-100 MG PO HS PRN for Sleep Budesonide/Formoterol Fumarate (Symbicort 160/4.5 Inhaler), 2 PUFFS INH BID PRN for Shortness of Breath Furosemide (Furosemide), 20 MG PO DAILY PRN for Edema Ipratropium-Albuterol (Duoneb), 1 TREATMENT INH Q4H PRN for SOB/Wheezing Ondansetron (Ondansetron HCl), 4 MG PO Q8 PRN for Nausea Oxycodone HCl (Oxycodone HCl), 5 MG PO TID PRN for Pain Review of Systems Constitutional: + chills, + sweats, + weight loss, + weakness, + fatigue Respiratory: No cough, No sputum, No wheezing, No shortness of breath, No dyspnea on exertion, No dyspnea at rest, No hemoptysis, No problem reported Cardiovascular: No chest pain, No orthopnea, No PND, No edema, No claudication , No palpitations, No problem reported Abdomen: + pain (left lower quadrant abdominal pain ), + nausea, + vomiting, + diarrhea, + GI bleeding (dark stool ) Genitourinary - Male: No hematuria, No dysuria, No urinary frequency, No urinary urgency, No urinary hesitancy, No urinary retention, No urinary incontinence, No penile discharge, No lesions, No impotence, No problem reported Neurologic: + weakness Psychiatric: + depression symptoms, + anxiety Endocrine: + fatigue Physical Exam Vital Signs Date Time Temp Pulse Resp B/P (MAP) Pulse Ox O2 Delivery O2 Flow Rate FiO2 01/10/17 16:49 115 18 136/88 100 Room Air 01/10/17 16:00 124 18 118/83 100 Room Air 01/10/17 15:22 115 18 148/110 98 01/10/17 13:35 36.4 144 20 132/96 100 Room Air General Appearance: no apparent distress Head: normocephalic, atraumatic Eyes: sclerae normal Neck: no JVD Respiratory/Chest: chest non-tender, lungs clear, normal breath sounds, no respiratory distress Cardiovascular: + tachycardia Abdomen/GI: normal bowel sounds, soft, + pertinent finding (left lower qadrant tendernes ) Extremities/Musculoskelatal: normal capillary refill, no pedal edema Neurologic/Psych: alert, normal mood/affect, oriented x 3 Skin: normal color, warm/dry, no rash Diagnostics Laboratory Results Results Past 24 Hours Test 01/10/17 14:14 01/10/17 14:56 01/10/17 17:47 Range/Units White Blood Count 9.26 4.8-10.8 K/uL Red Blood Count 4.97 4.7-6.1 M/uL Hemoglobin 15.0 14.0-18.0 g/dL Hematocrit 42.9 42-52 % Mean Corpuscular Volume 86.3 80-100 fL Mean Corpuscular Hemoglobin 30.2 25-34 pg Mean Corpuscular Hemoglobin Concent 35.0 32-36 g/dl Platelet Count 226 130-400 K/uL Mean Platelet Volume 9.6 7.4-10.4 fL Neutrophils (%) (Auto) 60.5 % Lymphocytes (%) (Auto) 28.3 % Monocytes (%) (Auto) 8.6 % Eosinophils (%) (Auto) 1.3 % Basophils (%) (Auto) 1.0 % Neutrophils # (Auto) 5.60 1.4-6.5 K/uL Lymphocytes # (Auto) 2.62 1.2-3.4 K/uL Monocytes # (Auto) 0.80 0.11-0.59 K/uL Eosinophils # (Auto) 0.12 0-0.5 K/uL Basophils # (Auto) 0.09 0-0.2 K/uL RDW Standard Deviation 44.3 36.4-46.3 fL RDW Coefficient of Variation 14.0 11.5-14.5 % Immature Granulocyte % (Auto) 0.3 % Immature Granulocyte # (Auto) 0.03 0.00-0.02 K/uL Sodium Level 142 136-145 mmol/L Potassium Level 3.9 3.5-5.1 mmol/L Chloride Level 107 98-107 mmol/L Carbon Dioxide Level 26 21-32 mmol/L Anion Gap 9.0 3-11 mmol/L Blood Urea Nitrogen 7 7-18 mg/dl Creatinine 1.00 0.60-1.40 mg/dl Est Creatinine Clear Calc Drug Dose 94.9 ml/min Estimated GFR () 99.8 Estimated GFR (Non- 86.2 BUN/Creatinine Ratio 7.1 10-20 Random Glucose 134 70-99 mg/dl Lactic Acid Level 2.0 0.4-2.0 mmol/L Calcium Level 9.8 8.5-10.1 mg/dl Phosphorus Level 1.9 2.5-4.9 mg/dl Magnesium Level 2.0 1.8-2.4 mg/dl Total Bilirubin 0.2 0.2-1 mg/dl Direct Bilirubin < 0.1 0-0.2 mg/dl Aspartate Amino Transf (AST/SGOT) 15 15-37 U/L Alanine Aminotransferase (ALT/SGPT) 33 12-78 U/L Alkaline Phosphatase 104 45-117 U/L Troponin I < 0.015 0-0.045 ng/ml Total Protein 7.6 6.4-8.2 gm/dl Albumin 4.2 3.4-5.0 gm/dl Prothrombin Time 10.0 9.0-12.0 SECONDS Prothromb Time International Ratio 0.9 0.9-1.1 Diagnostic Radiology ABD/PELVIS IV CONTRAST ONLY DONE ON 01/08/17 CT DOSE: 860.75 mGycm HISTORY: Pain abd pain, s/p colo Wednesday TECHNIQUE: Multiaxial CT images of the abdomen and pelvis were performed following the use of intravenous contrast. A dose lowering technique was utilized adhering to the principles of ALARA. COMPARISON STUDY: 12/21/2012 FINDINGS: Lung bases are clear. Mild fatty infiltration of liver. Gallbladder is negative for distention. Kidneys enhance uniformly. No evidence for hydronephrosis. Clips within the colon at the splenic and hepatic flexures. Bowel pattern is nonobstructive. Bladder is midline. No free fluid within the abdomen or pelvic region. No evidence for pneumatosis or free air. IMPRESSION: 1. Colonic surgical clips in the hepatic as well as splenic flexures. 2. Fatty infiltration of liver. 3. Otherwise negative study. Impression Assessment and Plan DIARRHEA /ABDOMINAL PAIN : ordered for stool C diff /ova parasite /cryptococcal antigen no evidence of sepsis no acute abdominal pathology noted in 12/29/16 IVF ordered , bowel rest with clears , advance as tolerated TACHYCARDIA : sinus tachycardia possible due to dehydration , vol loss ordered for IVF monitor in tele pt denies of any dizzy spell , lightheadedness or syncope Hold Chlorthalidone /diuretics of ongoing GI loss RECENT COLONOSCOPY STATUS : pathology shows ; Adenomatous polyp CEA level ordered pt mentions of dark stool /no bright red blood pre rectum H&H stable stool heme occult requested GI eval requested HIV DISEASE : Dx approx 12 hrs back recently been established with Dr Guerra ID Last CD4 count on 10/28 337 -not on any prophylactic tx pt is continued with HAART tx repeat HIV 1 RNA load and CD4 count ordered + HTN : BP stable cont Lopressor and losartan hold diuretics for ongoing diarrhea /GI loss LOW PHOS : due to ongoing GI loss corrected follow lytes HX OF CVA /CAROTID STENOSIS : on Aspirin and Plavix HIV 1 RELATED NEUROPATHY /CHRONIC PAIN SYNDROME on Fentanyl Patch 37 mcg /q 72 hrs Oxy IR FULL CODE DVT PROPHYLAXIS : scd and teds ambulate DISPOSITION : expected to return home when medically stable Medicine follow up with Dr Bolanos Level of Care Telemetry Resuscitation Status FULL RESUSCITATION VTE Prophylaxis VTE Risk Assessment Done? Y/N: Yes Risk Level: Moderate Given or contraindicated: Enoxaparin (Lovenox)SQ Additional Copies To Guillermo Burdick M.D., Emily A., MD
[2017-01-10] MEDS ORDERED: POTASSIUM PHOS 3 MMOL/1 ML INFUSION IV STA (18:04)
[2017-01-10] MEDS ORDERED: ALBUTEROL HFA 8 GM INHALER INH PRN (18:15)
[2017-01-10] MEDS ORDERED: AMITRIPTYLINE HCL 50 MG TAB PO PRN (18:15)
[2017-01-10] MEDS ORDERED: BUDESONIDE/FORMOTEROL FUMARATE 160/4.5 60 PUFFS/INHALER INH PRN (18:15)
[2017-01-10] MEDS ORDERED: ONDANSETRON 4 MG TAB PO PRN (18:15)
[2017-01-10] MEDS ORDERED: POTASSIUM PHOSPHATE INJ 21 MMOL in SODIUM CHLORIDE 0.9% 500ML 500 ML IV ONE (18:15)
[2017-01-10] MEDS ORDERED: ALBUT/IPRATROP 3MG/0.5MG NEB 3 ML VIAL INH PRN (18:15)
[2017-01-10 18:20] VITALS: O2SAT 100; Ht 182.9 cm; Wt 87.7 kg
[2017-01-10 19:19] VITALS: BP 167/105; PULSE 103; TEMP 36.6; O2SAT 97
[2017-01-10] MEDS ORDERED: IV FLUIDS COMPLETED PRN (19:30)
[2017-01-10] MEDS ORDERED: NURSING VERBAL MED ORDER ONE (20:00)
[2017-01-10] MEDS: NSS + 20MEQ KCL 1000ML 1,000 ML IV SCH (20:10)
[2017-01-10] MEDS: RALTEGRAVIR POTASSIUM TAB 400 MG TAB PO SCH (20:11)
[2017-01-10] MEDS: POT PHOSPHATE MONOBASIC W/ SOD TAB PO SCH (20:13)
[2017-01-10] MEDS: METOPROLOL TARTRATE 100 MG TAB PO SCH (20:13)
[2017-01-10] MEDS: HYDROmorphone INJ 0.5 MG/0.5 ML SYR IV PRN (20:24)
[2017-01-10] MEDS ORDERED: FENTANYL 12 MCG/HR TDSY TD SCH (21:00)
[2017-01-10] MEDS ORDERED: ATORVASTATIN 20 MG TAB PO SCH (21:00)
[2017-01-10] MEDS ORDERED: FENTANYL 25 MCG/HR TDSY TD SCH (21:00)
[2017-01-10] MEDS ORDERED: ENOXAPARIN 40 MG/0.4 ML SYR SC SCH (21:00)
[2017-01-11] VITALS (7 sets, daily range): BP systolic 121–141; BP diastolic 81–91; PULSE 72–91; TEMP 36.4–36.8; O2SAT 96–98
[2017-01-11] MEDS ORDERED: CHECK FENTANYL PATCH PLACEMENT SCH
[2017-01-11] MEDS: CHECK FENTANYL PATCH PLACEMENT SCH ×2 (00:06→08:00)
[2017-01-11] MEDS: OXYCODONE HCL IR 5 MG TAB (IMMEDIATE RELEASE) PO PRN ×2 (00:13→08:03)
[2017-01-11] MEDS: HYDROmorphone INJ 0.5 MG/0.5 ML SYR IV PRN ×2 (03:50→10:52)
[2017-01-11] MEDS: NSS + 20MEQ KCL 1000ML 1,000 ML IV SCH (05:16)
[2017-01-11 05:47] LABS: HEMATOCRIT 36.9 % (42-52); MEAN CELL VOLUME 88.7 fL (80-100); MEAN CORPUSCULAR HGB CONC 33.9 g/dl (32-36); MEAN PLATELET VOLUME 9.4 fL (7.4-10.4); PLATELET COUNT 199 K/uL (130-400); RED BLOOD COUNT 4.16 M/uL (4.7-6.1); WHITE BLOOD COUNT 7.78 K/uL (4.8-10.8)
[2017-01-11 06:30] LABS: BUN/CREATININE RATIO 5.2 (10-20); CALCIUM 8.3 mg/dl (8.5-10.1); CREATININE 0.88 mg/dl (0.60-1.40); MAGNESIUM 1.8 mg/dl (1.8-2.4); PHOSPHORUS 3.9 mg/dl (2.5-4.9); POTASSIUM 4.1 mmol/L (3.5-5.1)
[2017-01-11] MEDS: METOPROLOL TARTRATE 100 MG TAB PO SCH (08:36)
[2017-01-11] MEDS: POT PHOSPHATE MONOBASIC W/ SOD TAB PO SCH ×2 (08:36→12:27)
[2017-01-11] MEDS: RALTEGRAVIR POTASSIUM TAB 400 MG TAB PO SCH (08:36)
[2017-01-11] MEDS ORDERED: ASPIRIN 81 MG ECTAB PO SCH (09:00)
[2017-01-11] MEDS ORDERED: CLOPIDOGREL BISULFATE 75 MG TAB PO SCH (09:00)
[2017-01-11] MEDS ORDERED: LOSARTAN POTASSIUM 50 MG TAB PO SCH (09:00)
--- NOTE | 2017-01-11 10:41 | Progress Note ---
Progress Note Date of Service Jan 11, 2017. Progress Note ID Consult Dictated #[id number] A/P: 1. HIV on HAART -Continue current HAART -CD4/viral load pending -Has outpt appt scheduled for early March, will follow at that time -ok for d/c from ID standpoint, most recent CD4>200, doubt HIV related cause for diarrhea which is now resolved
--- NOTE | 2017-01-11 10:57 | Gastrointestinal Consultation ---
Gastrointestinal Consultation Date of Consultation: Jan 11, 2017 Attending Physician: Dr. Cheryl Veloz Consulting Physician: Dr. Xin Holliday Reason for Consultation: diarrhea History of Present Illness Patient is a 51 year old male with hx of HIV, rectal Ca in situ s/p resection, hx CVA on ASA/plavix who had routine colonoscopy with adenomatous polyps removed 01/05/17 and developed watery diarrhea 5-7 times per day beginning day after colonoscopy. He notes some stool was black but this has now resolved. He noted associated left sided abdominal pressure prior to BM but denies abdominal pain, nausea or vomiting. Pt came to ED after diarrhea persisted, notes frequency of stool lessened prior to arrival and he has not had any BMs since admission overnight. CT and labs unremarkable in ED, stool studies and c diff ordered but still pending as he has not had any BM since arrival. ID has been consulted and feels diarrhea is not related to HIV. Pt feeling better at time of consult and is hoping to go home later today. He is currently tolerating clear liquids without difficulty. Past Medical/Surgical History Medical Problems: (1) Abdominal pain Status: Acute (2) AIDS (acquired immunodeficiency syndrome), CD4 >200 and <500 Status: Acute (3) Anterior chest wall pain Status: Acute (4) Chest pain, rule out acute myocardial infarction Status: Acute (5) Chills Status: Acute (6) Dehydration Status: Acute (7) Diarrhea Status: Acute (8) Diarrhea Status: Acute (9) Gastroenteritis Status: Acute (10) Headache Status: Acute (11) Hypokalemia Status: Acute (12) Involuntary movements Status: Acute (13) Left sided chest pain Status: Acute (14) Paresthesia Status: Acute (15) Precordial chest pain Status: Acute (16) Right leg weakness Status: Acute (17) Syncope Status: Acute (18) TIA (transient ischemic attack) Status: Acute Past Medical History: ? H/o SC Anal dysplasia Anxiety AVM (arteriovenous malformation) brain Carotid stenosis Permanent Comment: 03/06/15-SAÚL occlusion, LICA with 50-59% stenosis COPD (chronic obstructive pulmonary disease Depression Dyslipidemia History of CVA (cerebrovascular accident) Permanent Comment: in setting of right carotid artery thrombosis on ASA and plavix Human immunodeficiency virus infection Hypertension Ischemic stroke Migraine Polyp of colon Past Surgical History: hx rectal ca in situ s/p resection multiple colonoscopies Family History Diabetes mellitus FATHER MOTHER FH: cancer FATHER (lung CA) Hypertension FATHER Social History Smoking Status: Current Every Day Smoker Alcohol Use: none Drug Use: none Marital Status: Housing Status: lives with family Occupation Status: unemployed Allergies Coded Allergies: Penicillins (Verified Allergy, Severe, ANAPHYLAXIS, 12/28/16) Azithromycin (Verified Allergy, Intermediate, RASH AND SKIN PEELING, ) Niacin (Verified Allergy, Intermediate, RASH, 12/28/16) Sulfa Antibiotics (Verified Allergy, Unknown, "ITCHY RASH", 12/28/16) Tramadol (Verified Allergy, Unknown, RASH, 12/28/16) Gabapentin (Verified Adverse Reaction, Intermediate, hallucinations, ) Shellfish (Verified Adverse Reaction, Intermediate, gi symptoms, 12/28/16) Topiramate (Verified Adverse Reaction, Intermediate, NAUSEA, 12/28/16) Meloxicam (Verified Adverse Reaction, Unknown, GI SYMPTOMS, 12/28/16) Current Medications Home Meds and Scripts Medications Dose Route/Sig Max Daily Dose Days Date Category Dose Instructions Ecotrin Or Generic (Aspirin) 81 Mg Tab 81 Mg PO QAM 01/08/17 Reported Ondansetron HCl (Ondansetron) 4 Mg Tab 4 Mg PO Q8 PRN 01/08/17 Reported Atorvastatin Calcium (Atorvastatin) 20 Mg Tab 20 Mg PO QPM 01/08/17 Reported Cozaar (Losartan Potassium) 100 Mg Tab 100 Mg PO DAILY 01/08/17 Reported Lopressor (Metoprolol Tartrate) 100 Mg Tab 100 Mg PO BID 01/08/17 Reported Amitriptyline HCl 50 Mg Tab 50-100 Mg PO HS PRN 01/08/17 Reported Oxycodone HCl 5 Mg Tab 5 Mg PO TID PRN 01/08/17 Reported Clopidogrel (Clopidogrel Bisulfate) 75 Mg Tab 75 Mg PO QAM 01/08/17 Reported Chlorthalidone 25 Mg Tab 25 Mg PO QAM 01/08/17 Reported Duoneb (Ipratropium-Albuterol) 3 Ml Nebu 1 Treatment INH Q4H PRN 11/17/16 Reported Fentanyl 12 Mcg Tdsy 12 Mcg TOP CQ72HR 11/17/16 Reported Fentanyl 25 Mcg Tdsy 25 Mcg TOP CQ72HR 10/22/16 Reported Ventolin Hfa (Albuterol) 200 Puffs/03620 Mcg Aers 2 Puffs INH Q6H PRN 10/22/16 Reported Folic Acid 1 Mg Tab 1 Mg PO QAM 03/24/16 Reported Furosemide 20 Mg Tab 20 Mg PO DAILY PRN 03/24/16 Reported Prezista (Darunavir Ethanolate) 600 Mg Tab 600 Mg PO BID 03/05/15 Reported TAKE THIS MEDICATION WITH FOOD Isentress (Raltegravir Potassium) 400 Mg Tab 400 Mg PO BID 03/05/15 Reported Norvir (Ritonavir) 100 Mg Tab 100 Mg PO BID 03/05/15 Reported Symbicort 160/4.5 Inhaler (Budesonide/Formoterol Fumarate) 120 Puffs/ Aero 2 Puffs INH BID PRN 03/05/15 Reported Review of Systems Constitutional: No fever, No chills Eyes: No problem reported ENT: No hearing loss Respiratory: No cough, No shortness of breath Cardiac: No chest pain, No edema Abdomen: + see HPI Musculoskeletal: No problem reported Male : No dysuria Neuro: No weakness Psych: No problem reported Heme: No problem reported Endo: No problem reported Skin: No rash Physical Exam Date Time Temp Pulse Resp B/P (MAP) Pulse Ox O2 Delivery O2 Flow Rate FiO2 01/11/17 08:08 36.8 89 18 139/88 (105) 97 Room Air 01/11/17 08:01 96 Room Air 01/11/17 04:00 Room Air 01/11/17 03:48 36.6 84 16 121/81 (94) 96 Room Air 01/11/17 00:07 36.7 91 16 141/91 (108) 96 Room Air 01/11/17 00:00 Room Air 01/10/17 20:00 Room Air 01/10/17 19:19 36.6 103 20 167/105 (125) 97 Room Air 01/10/17 18:25 120 18 124/92 100 Room Air 01/10/17 18:20 100 Room Air 01/10/17 16:49 115 18 136/88 100 Room Air 01/10/17 16:00 124 18 118/83 100 Room Air 01/10/17 15:22 115 18 148/110 98 01/10/17 13:35 36.4 144 20 132/96 100 Room Air General Appearance: WD/WN, no apparent distress Eyes: PERRL ENT: normal ENT inspection, hearing grossly normal Neck: supple Respiratory/Chest: lungs clear, normal breath sounds, no respiratory distress, no accessory muscle use Cardiovascular: regular rate, rhythm Abdomen: normal bowel sounds, non tender, soft, no organomegaly Extremities: non-tender, no pedal edema Neurologic/Psych: alert, normal mood/affect, oriented x 3 Skin: normal color Laboratory Results Last 24 Hours Test 01/10/17 14:14 01/10/17 14:56 01/10/17 18:14 01/11/17 05:24 White Blood Count 9.26 K/uL 7.78 K/uL Red Blood Count 4.97 M/uL 4.16 M/uL Hemoglobin 15.0 g/dL 12.5 g/dL Hematocrit 42.9 % 36.9 % Mean Corpuscular Volume 86.3 fL 88.7 fL Mean Corpuscular Hemoglobin 30.2 pg 30.0 pg Mean Corpuscular Hemoglobin Concent 35.0 g/dl 33.9 g/dl Platelet Count 226 K/uL 199 K/uL Mean Platelet Volume 9.6 fL 9.4 fL Neutrophils (%) (Auto) 60.5 % Lymphocytes (%) (Auto) 28.3 % Monocytes (%) (Auto) 8.6 % Eosinophils (%) (Auto) 1.3 % Basophils (%) (Auto) 1.0 % Neutrophils # (Auto) 5.60 K/uL Lymphocytes # (Auto) 2.62 K/uL Monocytes # (Auto) 0.80 K/uL Eosinophils # (Auto) 0.12 K/uL Basophils # (Auto) 0.09 K/uL RDW Standard Deviation 44.3 fL 46.5 fL RDW Coefficient of Variation 14.0 % 14.2 % Immature Granulocyte % (Auto) 0.3 % Immature Granulocyte # (Auto) 0.03 K/uL Sodium Level 142 mmol/L 144 mmol/L Potassium Level 3.9 mmol/L 4.1 mmol/L Chloride Level 107 mmol/L 111 mmol/L Carbon Dioxide Level 26 mmol/L 29 mmol/L Anion Gap 9.0 mmol/L 4.0 mmol/L Blood Urea Nitrogen 7 mg/dl 5 mg/dl Creatinine 1.00 mg/dl 0.88 mg/dl Est Creatinine Clear Calc Drug Dose 94.9 ml/min 107.8 ml/min Estimated GFR () 99.8 114.5 Estimated GFR (Non- 86.2 98.8 BUN/Creatinine Ratio 7.1 5.2 Random Glucose 134 mg/dl 88 mg/dl Lactic Acid Level 2.0 mmol/L Calcium Level 9.8 mg/dl 8.3 mg/dl Phosphorus Level 1.9 mg/dl 3.9 mg/dl Magnesium Level 2.0 mg/dl 1.8 mg/dl Total Bilirubin 0.2 mg/dl Direct Bilirubin < 0.1 mg/dl Aspartate Amino Transf (AST/SGOT) 15 U/L Alanine Aminotransferase (ALT/SGPT) 33 U/L Alkaline Phosphatase 104 U/L Troponin I < 0.015 ng/ml Total Protein 7.6 gm/dl Albumin 4.2 gm/dl Prothrombin Time 10.0 SECONDS Prothromb Time International Ratio 0.9 Carcinoembryonic Antigen 2.6 ng/ml Hepatitis B Surface Antigen NEG Impression Patient is a 51 year old male with diarrhea post colonoscopy which seems to be improving Plan DDx: infectious or viral etiology vs disruption of nadine from recent bowel prep - etiologies reviewed with pt no recent antibiotics reported Pt currently improving, no diarrhea since admission if stool is able to be obtained - recommend cultures and c diff as ordered labs stable, no sign of bleeding tolerating clear liquid diet, advancing to full liquids for lunch, may advance as tolerated from GI stand point recommend slowly adding fiber back to diet (also hx of diverticular disease) consider adding a probiotic if diarrhea does not improve and cultures are negative. Pt anticipating discharge later today f/u with GI PRN as out patient will sign off, please call with questions I have seen and evaluated the patient. He was admitted overnight with a complaint of diarrhea. Notes that his symptoms are now completely resolved. He denies having any nausea vomiting for discomfort this afternoon. Physical examination: No obvious distress, no abdominal tenderness Impression: The patient presents with complaint of diarrhea after recent colonoscopy. I would suggest screening for C. difficile infection and other infectious etiologies. The patient does note his symptoms have completely resolved and he does desire discharge possible. Recommendations Advance diet as tolerated If diarrhea recurs would suggest screening for C. difficile infection and, bacterial causes of diarrhea
--- NOTE | 2017-01-11 12:37 | INFECT. DISEASE CONSULTATION ---
DATE OF CONSULTATION: 01/11/2017 REQUESTING PHYSICIAN: Dr. Veloz. HISTORY OF PRESENT ILLNESS: This is a 51-year-old gentleman who was admitted with diarrhea after he had a colonoscopy done on the . He did have several biopsies obtained and was found to have diverticulosis. He denies any bloody diarrhea, however. He did have diarrhea post-procedure. He did present to the Emergency Room on 01/08/2017. At that time, he did have a CAT scan of the abdomen and pelvis which was unremarkable and he was subsequently discharged to home. His diarrhea persisted and he re-presented to the Emergency Room on 01/10/2017. He was admitted to the hospital. He is not currently on any antibiotics. He has been afebrile. His white blood cell count is normal. His H&H has been stable. He does have a history of HIV for which he takes antiretroviral therapy. He has previously followed up with [facility] for management of this. His most recent CD4 count was 337 in 10/2016. A repeat CD4 and viral load were done during this admission; however, at this time the results are pending. He did have a chest x-ray which was unremarkable. He states he has been compliant with his medications. He is in the process of transitioning care and states he has an appointment scheduled at [facility] sometime in March; however, he has not been seen in the office as of yet. He denies any chest pain, cough, shortness of breath, nausea, vomiting or diarrhea. He states he is feeling much better. He denies any abdominal pain or diarrhea today. He is tolerating clear liquids. He would like to be advanced solid diet so he can eat lunch and be discharged later this afternoon. All remaining review of systems are reviewed and are unremarkable. PAST MEDICAL HISTORY: He has a history of coronary artery disease, anal dysplasia, anxiety, AVM of the brain, carotid stenosis, cerebritis, COPD, depression, dyslipidemia, history of alcohol use, history of CVA, HIV, on antiretroviral therapy, hypertension, migraines, colon polyps. SURGICAL HISTORY: Significant for recent colonoscopy on 01/05/2017. FAMILY HISTORY: Noncontributory. SOCIAL HISTORY: Significant for daily tobacco use. He is . He denies any drug use. He denies any current alcohol use. ALLERGIES: HE HAS MULTIPLE ALLERGIES INCLUDING PENICILLIN, AZITHROMYCIN, NIACIN, SULFA, TRAMADOL, GABAPENTIN, SHELLFISH, TOPIRAMIDE AND MELOXICAM. CURRENT MEDICATIONS: Include fentanyl patch, aspirin, Plavix, folic acid, Cozaar, potassium, Lipitor, Lopressor, Isentress, albuterol, Symbicort, Zofran, oxycodone, Symbicort, Tylenol and Zofran. PHYSICAL EXAMINATION: VITAL SIGNS: He is afebrile, pulse 89, respiratory rate 18, blood pressure 139/88, oxygen saturation is 97% on room air. GENERAL: He is awake, alert and oriented x3. He is in no acute distress. HEENT: Mucous membranes are moist. Dentition is poor. HEART: Regular. LUNGS: Clear bilaterally. ABDOMEN: Soft, nontender, nondistended. There is no edema bilaterally. SKIN: Without rash. LABORATORY STUDIES: CBC today reveals a white blood cell count of 7.7, hemoglobin 12.5, platelets are 199. Chemistry panel reveals sodium of 144, potassium 4.1, chloride 111, bicarbonate 29, BUN 5, creatinine 0.8, glucose is 88. CEA is 2.6. CD4 count and viral load are pending. Hepatitis B antigen is negative. There is no micro to review. Chest x-ray was unremarkable. ASSESSMENT AND PLAN: Human immunodeficiency virus. He is instructed to continue his current antiretroviral therapy. CD4 and viral load are pending. He does state he has an appointment scheduled for March and he is instructed to keep that appointment. He is cleared for discharge from an infectious diseases standpoint. Thank you for this consultation.
--- NOTE | 2017-01-11 12:49 | Progress Note ---
Subjective Date of Service: Jan 11, 2017. Subjective Pt evaluation today including: conversation w/ patient, physical exam, lab review, review of studies, review of inpatient medication list Saw/examined the patient in room 205 No problems/issues to note today; diarrhea has resolved Tolerated soft foods for lunch with no issues Denies any pain, denies fevers/chills Problem List Medical Problems: (1) Abdominal pain Status: Acute (2) AIDS (acquired immunodeficiency syndrome), CD4 >200 and <500 Status: Acute (3) Anterior chest wall pain Status: Acute (4) Chest pain, rule out acute myocardial infarction Status: Acute (5) Chills Status: Acute (6) Dehydration Status: Acute (7) Diarrhea Status: Acute (8) Diarrhea Status: Acute (9) Gastroenteritis Status: Acute (10) Headache Status: Acute (11) Hypokalemia Status: Acute (12) Involuntary movements Status: Acute (13) Left sided chest pain Status: Acute (14) Paresthesia Status: Acute (15) Precordial chest pain Status: Acute (16) Right leg weakness Status: Acute (17) Syncope Status: Acute (18) TIA (transient ischemic attack) Status: Acute Review of Systems Constitutional: No fever, No chills, No weakness Respiratory: No shortness of breath Cardiac: No chest pain Abdomen: No pain, No nausea, No vomiting, No diarrhea (resolved) Heme: No abnormal bleeding/bruising Medications Current Inpatient Medications Medications (Trade) Dose Ordered Sig/Josh Route Start Time Stop Time Status Last Admin Dose Admin Potassium Chloride/Sodium Chloride 1,000 ml @ 100 mls/hr Q10H IV 01/10/17 19:45 02/09/17 19:44 01/11/17 05:16 100 MLS/HR Acetaminophen (Tylenol Tab) 650 mg Q4H PRN PO 01/10/17 18:00 02/09/17 17:59 Ondansetron HCl (Zofran Inj) 4 mg Q6H PRN IV 01/10/17 18:00 02/09/17 17:59 Potassium/ Phosphorus/Sodium (Phospha 250 Neutral 155-852-130 Mg) 1 tab QID PO 01/10/17 21:00 02/09/17 20:59 01/11/17 08:36 1 TAB Albuterol (Ventolin Hfa Inhaler) 2 puffs Q6H PRN INH 01/10/17 18:15 02/09/17 18:14 Amitriptyline HCl (Elavil Tab) 50 mg HS PRN PO 01/10/17 18:15 02/09/17 18:14 01/10/17 21:22 50 MG Aspirin (Ecotrin Tab) 81 mg QAM PO 01/11/17 09:00 02/10/17 08:59 01/11/17 08:36 81 MG Atorvastatin Calcium (Lipitor Tab) 20 mg QPM PO 01/10/17 21:00 02/09/17 20:59 01/10/17 20:12 20 MG Budesonide/ Formoterol Fumarate (Symbicort 160/ 4.5 Inh) 2 puffs BID PRN INH 01/10/17 18:15 02/09/17 18:14 Clopidogrel Bisulfate (plAVix TAB) 75 mg QAM PO 01/11/17 09:00 02/10/17 08:59 01/11/17 08:36 75 MG Folic Acid (Folvite Tab) 1 mg QAM PO 01/11/17 09:00 02/10/17 08:59 01/11/17 08:36 1 MG Albuterol/ Ipratropium (Duoneb) 3 ml Q4H PRN INH 01/10/17 18:15 02/09/17 18:14 Metoprolol Tartrate (Lopressor Tab) 100 mg BID PO 01/10/17 21:00 02/09/17 20:59 01/11/17 08:36 100 MG Ondansetron HCl (Zofran Tab) 4 mg Q8H PRN PO 01/10/17 18:15 02/09/17 18:14 Raltegravir (Isentress Tab) 400 mg BID PO 01/10/17 21:00 02/09/17 20:59 01/11/17 08:36 400 MG Miscellaneous Information (Order Awaiting Action) 1 ea QS N/A 01/11/17 00:00 02/10/17 00:00 Miscellaneous Information (Order Awaiting Action) 1 ea QS N/A 01/11/17 00:00 02/10/17 00:00 Oxycodone HCl (Roxicodone Immediate Rel Tab) 5 mg Q8 PRN PO 01/10/17 18:15 01/24/17 18:14 01/11/17 08:03 5 MG Hydromorphone HCl (Dilaudid Inj) 0.5 mg Q6 PRN IV 01/10/17 19:00 01/24/17 18:59 01/11/17 10:52 0.5 MG Losartan Potassium (coZAAR TAB) 100 mg DAILY PO 01/11/17 09:00 02/10/17 08:59 01/11/17 08:36 100 MG Miscellaneous (Iv Fluids Completed) 1 ea PRN PRN N/A 01/10/17 19:30 01/10/18 19:29 Fentanyl (Duragesic Patch) 12 mcg Q72H TD 01/10/17 21:00 01/24/17 20:59 01/10/17 20:24 12 MCG Fentanyl (Duragesic Patch) 25 mcg Q72H TD 01/10/17 21:00 01/24/17 20:59 01/10/17 20:25 25 MCG Miscellaneous Information (Check Fentanyl Patch Placement) 1 ea QS N/A 01/11/17 00:00 02/10/17 00:00 01/11/17 08:00 1 EA Miscellaneous (Fentanyl Patch Remove & Waste) 1 ea Q72H N/A 01/13/17 20:59 02/12/17 20:58 Objective Vital Signs Date Time Temp Pulse Resp B/P (MAP) Pulse Ox O2 Delivery O2 Flow Rate FiO2 01/11/17 11:37 36.4 72 18 128/84 (99) 98 Room Air 01/11/17 08:08 36.8 89 18 139/88 (105) 97 Room Air 01/11/17 08:01 96 Room Air 01/11/17 04:00 Room Air 01/11/17 03:48 36.6 84 16 121/81 (94) 96 Room Air 01/11/17 00:07 36.7 91 16 141/91 (108) 96 Room Air 01/11/17 00:00 Room Air 01/10/17 20:00 Room Air 01/10/17 19:19 36.6 103 20 167/105 (125) 97 Room Air 01/10/17 18:25 120 18 124/92 100 Room Air 01/10/17 18:20 100 Room Air 01/10/17 16:49 115 18 136/88 100 Room Air 01/10/17 16:00 124 18 118/83 100 Room Air 01/10/17 15:22 115 18 148/110 98 01/10/17 13:35 36.4 144 20 132/96 100 Room Air Physical Exam General Appearance: no apparent distress Respiratory/Chest: lungs clear, normal breath sounds, no respiratory distress, no accessory muscle use Cardiovascular: regular rate, rhythm, no edema, no murmur Abdomen: normal bowel sounds, non tender, soft Extremities: normal inspection, no pedal edema Laboratory Results Last 24 Hours Test 01/10/17 14:14 01/10/17 14:56 01/10/17 18:14 01/11/17 05:24 White Blood Count 9.26 K/uL 7.78 K/uL Red Blood Count 4.97 M/uL 4.16 M/uL Hemoglobin 15.0 g/dL 12.5 g/dL Hematocrit 42.9 % 36.9 % Mean Corpuscular Volume 86.3 fL 88.7 fL Mean Corpuscular Hemoglobin 30.2 pg 30.0 pg Mean Corpuscular Hemoglobin Concent 35.0 g/dl 33.9 g/dl Platelet Count 226 K/uL 199 K/uL Mean Platelet Volume 9.6 fL 9.4 fL Neutrophils (%) (Auto) 60.5 % Lymphocytes (%) (Auto) 28.3 % Monocytes (%) (Auto) 8.6 % Eosinophils (%) (Auto) 1.3 % Basophils (%) (Auto) 1.0 % Neutrophils # (Auto) 5.60 K/uL Lymphocytes # (Auto) 2.62 K/uL Monocytes # (Auto) 0.80 K/uL Eosinophils # (Auto) 0.12 K/uL Basophils # (Auto) 0.09 K/uL RDW Standard Deviation 44.3 fL 46.5 fL RDW Coefficient of Variation 14.0 % 14.2 % Immature Granulocyte % (Auto) 0.3 % Immature Granulocyte # (Auto) 0.03 K/uL Sodium Level 142 mmol/L 144 mmol/L Potassium Level 3.9 mmol/L 4.1 mmol/L Chloride Level 107 mmol/L 111 mmol/L Carbon Dioxide Level 26 mmol/L 29 mmol/L Anion Gap 9.0 mmol/L 4.0 mmol/L Blood Urea Nitrogen 7 mg/dl 5 mg/dl Creatinine 1.00 mg/dl 0.88 mg/dl Est Creatinine Clear Calc Drug Dose 94.9 ml/min 107.8 ml/min Estimated GFR () 99.8 114.5 Estimated GFR (Non- 86.2 98.8 BUN/Creatinine Ratio 7.1 5.2 Random Glucose 134 mg/dl 88 mg/dl Lactic Acid Level 2.0 mmol/L Calcium Level 9.8 mg/dl 8.3 mg/dl Phosphorus Level 1.9 mg/dl 3.9 mg/dl Magnesium Level 2.0 mg/dl 1.8 mg/dl Total Bilirubin 0.2 mg/dl Direct Bilirubin < 0.1 mg/dl Aspartate Amino Transf (AST/SGOT) 15 U/L Alanine Aminotransferase (ALT/SGPT) 33 U/L Alkaline Phosphatase 104 U/L Troponin I < 0.015 ng/ml Total Protein 7.6 gm/dl Albumin 4.2 gm/dl Prothrombin Time 10.0 SECONDS Prothromb Time International Ratio 0.9 Carcinoembryonic Antigen 2.6 ng/ml Hepatitis B Surface Antigen NEG Assessment and Plan This is a 51 year old male with a PMH of HIV and ongoing HAART therapy, hx. of CVA and carotid artery stenosis, hx. of rectal CA s/p surgical resection, hx. of brain AVM, with recent colonoscopy on 01/05 presents with watery diarrhea Watery Diarrhea in the setting of HIV, Recent Colonoscopy diarrhea has resolved unsure if this is related to bowel prep, unlikely C. diff, HIV tolerated clears - advanced diet and tolerated soft foods as well recommended increasing fiber and patient is agreeable probiotic if diarrhea does not resolve - for now, will hold off plan for d/c home PCP follow-up on January 14 HIV ongoing HAART therapy will follow-up with ID as outpatient Sinus Tachycardia - resolved likely from volume depletion IVFs ordered and HRs have improved HTN restart outpatient BP medications Hx. of CVA/Carotid Stenosis continue aspirin + Plavix Chronic Pain Syndrome continue home medications DVT ppx ambulate FULL CODE
--- NOTE | 2017-01-11 12:55 | Discharge Instructions ---
Discharge Instructions Date of Service Jan 11, 2017. Admission Reason for Admission: Diarrhea, Hiv Disease, Tachycardia Discharge Discharge Diagnosis / Problem: Watery Diarrhea, HIV Disease, Sinus Tachycardia Discharge Goals Goal(s): Decrease discomfort, Improve function, Diagnostic testing, Therapeutic intervention Activity Recommendations Activity Limitations: resume your previous activity . Instructions / Follow-Up Instructions / Follow-Up Please follow-up with Dr. Burdick on January 14 at 10:25AM Increase fiber intake as needed follow-up with pain management and ID as scheduled Current Hospital Diet Patient's current hospital diet: Full Liquid Diet Discharge Diet Recommended Diet: AHA Diet (Heart Healthy) Pending Studies Studies pending at discharge: no Laboratory Results Lipid Panel Test 10/23/16 09:19 Range/Units Triglycerides Level 281 H 0-150 mg/dl Cholesterol Level 180 0-200 mg/dl HDL Cholesterol 39 mg/dl Cholesterol/HDL Ratio 4.6 LDL Cholesterol, Calculated 85 mg/dl Medical Emergencies . Who to Call and When: Medical Emergencies: If at any time you feel your situation is an emergency, please call 911 immediately. . Non-Emergent Contact Non-Emergency issues call your: Primary Care Provider . . "Provider Documentation" section prepared by Yumiko Pritchard. . VTE Core Measure Inpt VTE Proph given/why not?: Enoxaparin (Lovenox)SQ
--- NOTE | 2017-01-11 13:01 | Discharge Summary ---
Discharge Summary Date of Service Jan 11, 2017. Discharge Summary Admission Date: Jan 10, 2017 at 17:49 Discharge Date: Jan 11, 2017 Discharge Disposition: Home Principal Diagnosis: Diarrhea, possibly Viral Gastroenteritis HIV Medication Reconciliation Continued Medications: Albuterol Hfa (Ventolin Hfa) 200 Puffs/49193 Mcg Aers 2 PUFFS INH Q6H PRN for Shortness of Breath, INHALER Amitriptyline HCl (Amitriptyline HCl) 50 Mg Tab 50-100 MG PO HS PRN for Sleep Aspirin Enteric Coated (Ecotrin Or Generic) 81 Mg Tab 81 MG PO QAM Atorvastatin (Atorvastatin Calcium) 20 Mg Tab 20 MG PO QPM Budesonide/Formoterol Fumarate (Symbicort 160/4.5 Inhaler) 120 Puffs/ Aero 2 PUFFS INH BID PRN for Shortness of Breath, INHALER Chlorthalidone (Chlorthalidone) 25 Mg Tab 25 MG PO QAM Clopidogrel Bisulfate (Clopidogrel) 75 Mg Tab 75 MG PO QAM Darunavir Ethanolate (Prezista) 600 Mg Tab 600 MG PO BID TAKE THIS MEDICATION WITH FOOD Fentanyl (Fentanyl) 25 Mcg Tdsy 25 MCG TOP CQ72HR Fentanyl (Fentanyl) 12 Mcg Tdsy 12 MCG TOP CQ72HR Folic Acid (Folic Acid) 1 Mg Tab 1 MG PO QAM Furosemide (Furosemide) 20 Mg Tab 20 MG PO DAILY PRN for Edema Ipratropium-Albuterol (Duoneb) 3 Ml Nebu 1 TREATMENT INH Q4H PRN for SOB/Wheezing, INHA Losartan Potassium (Cozaar) 100 Mg Tab 100 MG PO DAILY Metoprolol Tartrate (Lopressor) (Lopressor) 100 Mg Tab 100 MG PO BID Ondansetron (Ondansetron HCl) 4 Mg Tab 4 MG PO Q8 PRN for Nausea Oxycodone HCl (Oxycodone HCl) 5 Mg Tab 5 MG PO TID PRN for Pain Raltegravir Potassium (Isentress) 400 Mg Tab 400 MG PO BID, TAB Ritonavir (Norvir) 100 Mg Tab 100 MG PO BID Admission Information HPI (per Admitting provider): this is a 51 yo M with medical hx of HIV disease , rectal Ca in situ s/p surgical resection , HIV-1 related autonomic neuropathy, HTN , hx of CVA WITH CAROTID ARTERY STENOSIS , CSF pleocytosis . AVM of brain presents to ER with complains of persisted loose watery diarrhea , left lower quadrant abdominal pain , nausea /vomiting , Pt had colonoscopy done on Wednesday01/05/17 at [facility] by Dr Chin -found to have multiple polys at transverse and descending colon -which were resected noted to have diverticulosis of colon Pt has chronic diarrhea , his symptom got worse after the procedure , associated with severe abdominal pain , localized mainly to left lower quadrant , associated with gas and bloating was seen in ED on Wednesday for GI symptom CT abdomen /pelvis was unremarkable -lab work was wnl limit , pt was discharged form ED ,with recommendation for follow up with family physician today pt presents with worsening of diarrhea , having dark stool , nausea , 2 episodes of vomiting , chills , in the ER -wbc was wnl , metabolic panel unremarkable , normal lactic acid found to be in sinus tachycardia , HR improved after IV hydration and pain control Physical Exam (per Admitting): General Appearance: no apparent distress Head: normocephalic, atraumatic Eyes: sclerae normal Neck: no JVD Respiratory/Chest: chest non-tender, lungs clear, normal breath sounds, no respiratory distress Cardiovascular: + tachycardia Abdomen/GI: normal bowel sounds, soft, + pertinent finding (left lower qadrant tendernes ) Extremities/Musculoskelatal: normal capillary refill, no pedal edema Neurologic/Psych: alert, normal mood/affect, oriented x 3 Skin: normal color, warm/dry, no rash Hospital Course This is a 51 year old male with a PMH of HIV and ongoing HAART therapy, hx. of CVA and carotid artery stenosis, hx. of rectal CA s/p surgical resection, hx. of brain AVM, with recent colonoscopy on 01/05 presents with watery diarrhea Watery Diarrhea in the setting of HIV, Recent Colonoscopy diarrhea has resolved unsure if this is related to bowel prep, unlikely C. diff, HIV tolerated clears - advanced diet and tolerated soft foods as well recommended increasing fiber and patient is agreeable probiotic if diarrhea does not resolve - for now, will hold off plan for d/c home PCP follow-up on January 14 HIV ongoing HAART therapy will follow-up with ID as outpatient Sinus Tachycardia - resolved likely from volume depletion IVFs ordered and HRs have improved HTN restart outpatient BP medications Hx. of CVA/Carotid Stenosis continue aspirin + Plavix Chronic Pain Syndrome continue home medications DVT ppx ambulate FULL CODE Total time spent on discharge = 20 minutes This includes examination of the patient, discharge planning, medication reconciliation, and communication with other providers. Discharge Instructions Please follow-up with Dr. Burdick on January 14 at 10:25AM Increase fiber intake as needed follow-up with pain management and ID as scheduled
[2017-01-12 05:21] LABS: HEP C SIGNAL TO CUTOFF RATIO 0.04 (LESS THAN 1.0)
[2017-01-13] MEDS ORDERED: FENTANYL PATCH REMOVE & WASTE SCH ×2 (08:59→20:59)
[2017-01-13] MEDS ORDERED: FENTANYL 25 MCG/HR TDSY TD SCH (09:00)
[2017-01-13] MEDS ORDERED: FENTANYL 12 MCG/HR TDSY TD SCH (09:00)
[2017-01-13 09:32] LABS: LSP % CELLS ANALYZED CD4 26 % (30-61); LSP ABSOLUTE CT CD4 885 cells/uL (490-1740); LSP LYMPHOCYTES ABSOLUTE 3455 cells/uL (850-3900)
== END 2017-01-11 13:09 | disposition home or self-care (01) ==
LOC: C.EDB 13:28 → C.2E 17:49 → ENRESERV 17:59
PROVIDERS: ADMIT Hospitalist; ATTEND Family Medicine
DX: R19.7 Diarrhea, unspecified (principal); E86.0 Dehydration; I10 Essential (primary) hypertension; G89.4 Chronic pain syndrome; Z85.048 Personal history of other malignant neoplasm of rectum, rectosigmoid junction, and anus; F41.9 Anxiety disorder, unspecified; J44.9 Chronic obstructive pulmonary disease, unspecified; E78.5 Hyperlipidemia, unspecified; Z86.73 Personal history of transient ischemic attack (TIA), and cerebral infarction without residual deficits; Z21 Asymptomatic human immunodeficiency virus [HIV] infection status; Z87.01 Personal history of pneumonia (recurrent); Z83.3 Family history of diabetes mellitus; Z80.1 Family history of malignant neoplasm of trachea, bronchus and lung; Z82.49 Family history of ischemic heart disease and other diseases of the circulatory system; F17.200 Nicotine dependence, unspecified, uncomplicated; Z79.82 Long term (current) use of aspirin; Z79.02 Long term (current) use of antithrombotics/antiplatelets; I25.10 Atherosclerotic heart disease of native coronary artery without angina pectoris

== ENCOUNTER 2017-02-08 13:06 | Inpatient (IN) | payer OTHER ==
[~2017-02-08] VITALS: Ht 182.9 cm; Wt 88.5 kg
[2017-02-08] MEDS ORDERED: SODIUM CHLORIDE 0.9% 1000ML 500 ML IV STA (13:21)
[2017-02-08] MEDS ORDERED: SODIUM CHLORIDE 0.9% 1000ML 1,000 ML IV STA (13:21)
--- NOTE | 2017-02-08 13:39 | EMERGENCY ROOM VISIT NOTE ---
History Report prepared by Brittni: Sony Vasquez Under the Supervision of: Dr. Nico Johnson M.D. First contact with patient: 13:15 Stated Complaint: CHEST PAIN History of Present Illness The patient is a 52 year old male who presents to the Emergency Room with complaints of chest pain after a syncopal episode occurring about an hour ago. He currently rates his discomfort as a 7/10 in severity. The patient states that he stood up to get a new fentanyl patch, and his vision went black, he got dizzy, and he passed out and fell. The patient states that when he came to he was starting to have the chest pain which was not there beforehand. He states that before this episode he was feeling okay this morning, though he was a little shaky. The patient states that the past 3-4 days he has had fevers, chills, and diarrhea about 4 times per day, though he denies any abdominal pain , shortness of breath, vomiting, or hematochezia. He states that he does not feel thirsty right now, and he has been drinking fluids. The patient states that the pain is worsened with a deep breath, though he states that it is not worsened with movement. The patient states that he does not have a history of blood clots in his lungs, though he states that he has had strokes and a heart attack in the past. He states that he got 4 baby aspirin and nitroglycerin which helped with the pain a little bit. Source of History: patient Onset: an hour ago Position: chest Symptom Intensity: 7/10 Timing: constant Modifying Factors (Worsening): breathing Associated Symptoms: + LOC, + fevers, + chills, + diarrhea, No SOB, No vomiting, No abdominal pain, No hematochezia Review of Systems See HPI for pertinent positives & negatives. A total of 10 systems reviewed and were otherwise negative. Past Medical & Surgical Medical Problems: (1) Anal dysplasia (2) Anxiety (3) AVM (arteriovenous malformation) brain (4) Carotid stenosis (5) Cerebritis (6) COPD (chronic obstructive pulmonary disease) (7) Depression (8) Dyslipidemia (9) History of alcohol abuse (10) History of CVA (cerebrovascular accident) (11) Human immunodeficiency virus infection (12) Hypertension (13) Ischemic stroke (14) Migraine (15) Neuropathic pain of both feet (16) Polyp of colon (17) TIA (transient ischemic attack) Family History Diabetes mellitus FATHER MOTHER FH: cancer FATHER (lung CA) Hypertension FATHER Social History Smoking Status: Current Every Day Smoker Alcohol Use: none Drug Use: none Marital Status: Housing Status: lives with family Occupation Status: unemployed Current/Historical Medications Scheduled Amlodipine (Norvasc), 2.5 MG PO DAILY Aspirin Enteric Coated (Ecotrin Or Generic), 81 MG PO QAM Atorvastatin (Atorvastatin Calcium), 20 MG PO QPM Budesonide/Formoterol Fumarate (Symbicort 160/4.5 Inhaler), 2 PUFFS INH BID Chlorthalidone (Chlorthalidone), 25 MG PO QAM Clopidogrel Bisulfate (Clopidogrel), 75 MG PO QAM Darunavir Ethanolate (Prezista), 600 MG PO BID Fentanyl (Fentanyl), 25 MCG TOP CQ72HR Fentanyl (Fentanyl), 12 MCG TOP CQ72HR Folic Acid (Folic Acid), 1 MG PO QAM Losartan Potassium (Cozaar), 100 MG PO DAILY Metoprolol Tartrate (Lopressor) (Lopressor), 100 MG PO BID Raltegravir Potassium (Isentress), 400 MG PO BID Ritonavir (Norvir), 100 MG PO BID Scheduled PRN Albuterol Hfa (Ventolin Hfa), 2 PUFFS INH Q6H PRN for Shortness of Breath Amitriptyline HCl (Amitriptyline HCl), 50-100 MG PO HS PRN for Sleep Furosemide (Furosemide), 20 MG PO DAILY PRN for Edema Ipratropium-Albuterol (Duoneb), 1 TREATMENT INH Q4H PRN for SOB/Wheezing Ondansetron (Ondansetron HCl), 4 MG PO Q8 PRN for Nausea Oxycodone HCl (Oxycodone HCl), 5 MG PO TID PRN for Pain Allergies Coded Allergies: Penicillins (Verified Allergy, Severe, ANAPHYLAXIS, 12/28/16) Azithromycin (Verified Allergy, Intermediate, RASH AND SKIN PEELING, ) Niacin (Verified Allergy, Intermediate, RASH, 12/28/16) Sulfa Antibiotics (Verified Allergy, Unknown, "ITCHY RASH", 12/28/16) Tramadol (Verified Allergy, Unknown, RASH, 12/28/16) Gabapentin (Verified Adverse Reaction, Intermediate, hallucinations, ) Shellfish (Verified Adverse Reaction, Intermediate, gi symptoms, 12/28/16) Topiramate (Verified Adverse Reaction, Intermediate, NAUSEA, 12/28/16) Meloxicam (Verified Adverse Reaction, Unknown, GI SYMPTOMS, 12/28/16) Physical Exam Vital Signs Date Time Temp Pulse Resp B/P (MAP) Pulse Ox O2 Delivery O2 Flow Rate FiO2 02/08/17 16:59 108 18 117/69 96 02/08/17 15:06 113 17 93 02/08/17 15:01 115/93 02/08/17 14:36 114 98 02/08/17 14:31 125/69 02/08/17 14:06 113 21 95 02/08/17 14:01 140/92 02/08/17 13:48 112 152/97 117 138/93 120 125/83 02/08/17 13:43 97 Room Air 02/08/17 13:43 97 Room Air 02/08/17 13:43 37.3 119 18 156/97 97 Room Air 02/08/17 13:36 114 19 99 02/08/17 13:32 125/83 02/08/17 13:30 152/97 02/08/17 13:21 117 02/08/17 13:14 156/97 Physical Exam GENERAL: Patient is in no acute distress. HEENT: No acute trauma, normocephalic atraumatic, mucous membranes moist, no nasal congestion, no scleral icterus. NECK: No stridor, no adenopathy, no meningismus, trachea is midline. LUNGS: Clear to auscultation bilaterally, no wheeze, no rhonchi, breath sounds equal. HEART: Tachycardic with a regular rhythm. No murmur. CHEST: Left chest wall soreness on palpation. No contusion. ABDOMEN: Soft, nontender, bowel sounds positive, no hernias, no peritonitis. EXTREMITIES: No cyanosis or edema, full range of motion of all the joints without pain or difficulty, no signs for acute trauma. NEUROLOGIC: Oriented x 3, no acute motor or sensory deficits, no focal weakness. SKIN: No rash, no jaundice, no diaphoresis. Medical Decision & Procedures ER Provider Diagnostic Interpretation: The patient's orthostatic vital signs were positive. Radiology results as stated below per my review and radiologist interpretation: CHEST ONE VIEW PORTABLE CLINICAL HISTORY: Atypical chest pain COMPARISON STUDY: 01/10/2017 FINDINGS: The heart is normal in size. There is no failure. There is no focal pulmonary consolidation. There are no pleural effusions. There is an equivocal 6 mm right midlung zone nodule.[ IMPRESSION: 1. Equivocal 6 mm right midlung zone nodule 2. No evidence of failure. No evidence of focal pulmonary consolidation Electronically signed by: Donnie Putnam M.D. 02/08/2017 1:40 PM Dictated Date/Time: 02/08/2017 1:[address] ANGIOGRAPHY OF THE CHEST, PULMONARY EMBOLUS PROTOCOL CLINICAL HISTORY: Chest pain. COMPARISON STUDY: Chest CT November 17, 2016. TECHNIQUE: Following IV administration of 95 mL of Optiray-320, helical axial images of the chest were obtained utilizing the pulmonary embolus protocol. Maximal intensity projections and sagittal and coronal reformats were viewed on an independent 3D workstation. IV contrast was administered without complication. A dose lowering technique was utilized adhering to the principles of ALARA. CT DOSE: 387.69 mGy.cm FINDINGS: No pulmonary emboli are identified. The heart is mildly enlarged. There is moderate coronary artery calcification. There is no evidence of thoracic aortic dissection. Mild dilatation of the ascending aorta, measuring 4.2 cm at the level of the main pulmonary artery is similar to prior studies. No enlarged thoracic lymph nodes are present. No pneumothorax or pleural effusion is present. Groundglass opacities reflect atelectasis. There has been interval development of an irregular 9 mm right upper lobe nodule shown image 165 of 281. The multifocal right upper lobe airspace opacity shown on exam of November 17, 2016 have resolved. Bony thorax is unremarkable. There is fatty infiltration of the liver. IMPRESSION: 1. No pulmonary emboli identified. 2. Interval development of a 9 mm irregular nodule with mild adjacent groundglass opacity within the right upper lobe. This suggests a mild infectious etiology. A follow-up chest CT in 3 months to ensure resolution is recommended. 2. Mild cardiomegaly and mild dilatation of the ascending aorta. No dissection. Electronically signed by: Gabo Moore M.D. 02/08/2017 4:59 PM Dictated Date/Time: 02/08/2017 4:50 PM Laboratory Results 02/08/17 13:34 02/08/17 13:34 02/08/17 14:29 Test 02/08/17 13:34 02/08/17 14:29 02/08/17 15:33 02/08/17 17:35 Red Blood Count 4.67 M/uL (4.7-6.1) Mean Corpuscular Volume 85.4 fL (80-100) Mean Corpuscular Hemoglobin 29.6 pg (25-34) Mean Corpuscular Hemoglobin Concent 34.6 g/dl (32-36) RDW Standard Deviation 40.8 fL (36.4-46.3) RDW Coefficient of Variation 13.1 % (11.5-14.5) Mean Platelet Volume 9.8 fL (7.4-10.4) Anion Gap 8.0 mmol/L (3-11) Est Creatinine Clear Calc Drug Dose 93.8 ml/min Estimated GFR () 99.2 Estimated GFR (Non- 85.5 BUN/Creatinine Ratio 9.4 (10-20) Calcium Level 9.2 mg/dl (8.5-10.1) Total Bilirubin 0.3 mg/dl (0.2-1) Alanine Aminotransferase (ALT/SGPT) 55 U/L (12-78) Alkaline Phosphatase 118 U/L (45-117) Creatine Kinase MB 3.1 ng/ml (0.5-3.6) Creatine Kinase MB Ratio (0-3.0) Troponin I < 0.015 ng/ml (0-0.045) Total Protein 7.5 gm/dl (6.4-8.2) Albumin 3.9 gm/dl (3.4-5.0) Globulin 3.6 gm/dl (2.5-4.0) Albumin/Globulin Ratio 1.1 (0.9-2) Magnesium Level 2.0 mg/dl (1.8-2.4) Aspartate Amino Transf (AST/SGOT) 37 U/L (15-37) Total Creatine Kinase 189 U/L (39-308) Bedside Prothrombin Time INR 1.0 (0.9-1.1) Laboratory results reviewed by me. Medications Administered Medications (Trade) Dose Ordered Sig/Josh Route Start Time Stop Time Status Last Admin Dose Admin Sodium Chloride 500 ml @ 999 mls/hr Q31M STAT IV 02/08/17 13:21 02/08/17 13:51 DC 02/08/17 13:56 999 MLS/HR Sodium Chloride 1,000 ml @ 200 mls/hr Q5H STAT IV 02/08/17 13:21 02/08/17 18:20 DC 02/08/17 13:56 200 MLS/HR Morphine Sulfate (MoRPHine SULFATE INJ) 4 mg Q15M PRN IV 02/08/17 13:30 02/22/17 13:29 02/08/17 16:29 4 MG Fentanyl (Duragesic Patch) 25 mcg NOW STAT TD 02/08/17 14:14 02/08/17 14:16 DC 02/08/17 15:23 25 MCG Fentanyl (Duragesic Patch) 12 mcg NOW STAT TD 02/08/17 14:14 02/08/17 14:16 DC 02/08/17 15:24 12 MCG Sodium Chloride 500 ml @ 999 mls/hr Q31M STAT IV 02/08/17 15:34 02/08/17 16:04 DC 02/08/17 15:34 999 MLS/HR ECG Indication: chest pain Rate (beats per minute): 119 Rhythm: sinus tachycardia Findings: no acute ischemic change, no ectopy ED Course 1315: The patient was evaluated in room B7. A complete history and physical exam was performed. 1321: Sodium Chloride 1000 ml @ 200 mls/hr IV, Sodium Chloride 500 ml @ 999 mls/ hr IV 1330: Morphine Sulfate 4mg IV 1413: I reevaluated the patient, and he was doing okay. 1414: Fentanyl 12mcg TD, Fentanyl 25mcg TD 1534: Sodium Chloride 500 ml @ 999 mls/hr IV 1729: I reassessed the patient, and I discussed the findings and the treatment plan with him. 1731: Levofloxacin 750mg IV 1740: Discussed the patient's case with RAOUL Leyva. The patient will be evaluated for further management. Medical Decision Differential diagnoses include: dehydration, dysrhythmia, anemia, electrolyte imbalance, AR, PE, rib fracture or pulmonary contusion. There is a mild leukocytosis, this could be consistent with infection or just with the syncopal event itself. No worrisome anemia. No significant electrolyte abnormality, kidney failure or hepatitis. INR was normal at 1. Chest x-ray does not show pneumonia, CHF or mediastinal widening. EKG shows a normal sinus rhythm, no acute ischemia. Cardiac enzyme testing times one is not consistent with acute cardiac injury. Chest CT does not show PE. No evidence for aortic dissection. A pneumonia on the right was suspected. The patient received IV saline, he was given IV morphine for pain control. He was eventually given his typical fentanyl patches. He received IV Levaquin for antibiotic coverage. The patient presents with syncope. The left chest pain started after, I suspect he contused his chest wall when he fell. He states he fell on his left side. Orthostatic vital signs were done and he is quite orthostatic. He did receive IV saline, this has helped to improve the tachycardia. He seems to be resting comfortably although still complaining of left-sided chest pain especially with palpation. Given his immunocompromised status, the pneumonia, the leukocytosis, the syncope , the orthostasis, admission/observation was felt warranted. I spoke to the patient and the continuous pillowcase cutter. The on-call hospitalist was consulted. Medication Reconcilliation Current Medication List: was personally reviewed by me Blood Pressure Screening Patient's blood pressure: Normal blood pressure Consults Time Called: 1731 Consulting Physician: RAOUL Leyva Returned Call: [phone] Discussed the patient's case with RAOUL Leyva. The patient will be evaluated for further management. Impression Primary Impression: Syncope Additional Impressions: Dehydration Pneumonia Immunocompromised Left sided chest pain Scribe Attestation The scribe's documentation has been prepared under my direction and personally reviewed by me in its entirety. I confirm that the note above accurately reflects all work, treatment, procedures, and medical decision making performed by me. Departure Information Dispostion Being Evaluated By Hospitalist Referrals Guillermo Burdick M.D. (PCP) Problem Qualifiers
[2017-02-08 13:46] LABS: HEMATOCRIT 39.9 % (42-52); MEAN CELL VOLUME 85.4 fL (80-100); MEAN CORPUSCULAR HEMOGLOBIN 29.6 pg (25-34); MEAN CORPUSCULAR HGB CONC 34.6 g/dl (32-36); MEAN PLATELET VOLUME 9.8 fL (7.4-10.4); PLATELET COUNT 234 K/uL (130-400); RED BLOOD COUNT 4.67 M/uL (4.7-6.1); WHITE BLOOD COUNT 12.95 K/uL (4.8-10.8)
[2017-02-08] MEDS: MoRPHine SULFATE 4 MG/ML 1 ML CARP\\VIAL IV PRN ×3 (13:56→19:23)
[2017-02-08] MEDS ORDERED: FENTANYL 25 MCG/HR TDSY TD STA (14:14)
[2017-02-08] MEDS ORDERED: FENTANYL 12 MCG/HR TDSY TD STA (14:14)
[2017-02-08 14:25] LABS: ALB/GLOB RATIO 1.1 (0.9-2); ALKALINE PHOSPHATASE 118 U/L (45-117); ALT/SGPT 55 U/L (12-78); BLOOD UREA NITROGEN 9 mg/dl (7-18); BUN/CREATININE RATIO 9.4 (10-20); CALCIUM 9.2 mg/dl (8.5-10.1); CARBON DIOXIDE 25 mmol/L (21-32); CHLORIDE 106 mmol/L (98-107); GLUCOSE 120 mg/dl (70-99); SODIUM 139 mmol/L (136-145)
[2017-02-08 15:31] LABS: POTASSIUM 3.8 mmol/L (3.5-5.1)
[2017-02-08] MEDS ORDERED: SODIUM CHLORIDE 0.9% 500ML 500 ML IV STA (15:34)
[2017-02-08] MEDS ORDERED: OPTIRAY 320 IV PRN (17:00)
--- NOTE | 2017-02-08 17:01 | DIAGNOSTIC IMAGING REPORT ---
CT ANGIOGRAPHY OF THE CHEST, PULMONARY EMBOLUS PROTOCOL CLINICAL HISTORY: Chest pain. COMPARISON STUDY: Chest CT November 17, 2016. TECHNIQUE: Following IV administration of 95 mL of Optiray-320, helical axial images of the chest were obtained utilizing the pulmonary embolus protocol. Maximal intensity projections and sagittal and coronal reformats were viewed on an independent 3D workstation. IV contrast was administered without complication. A dose lowering technique was utilized adhering to the principles of ALARA. CT DOSE: 387.69 mGy.cm FINDINGS: No pulmonary emboli are identified. The heart is mildly enlarged. There is moderate coronary artery calcification. There is no evidence of thoracic aortic dissection. Mild dilatation of the ascending aorta, measuring 4.2 cm at the level of the main pulmonary artery is similar to prior studies. No enlarged thoracic lymph nodes are present. No pneumothorax or pleural effusion is present. Groundglass opacities reflect atelectasis. There has been interval development of an irregular 9 mm right upper lobe nodule shown image 165 of 281. The multifocal right upper lobe airspace opacity shown on exam of November 17, 2016 have resolved. Bony thorax is unremarkable. There is fatty infiltration of the liver. IMPRESSION: 1. No pulmonary emboli identified. 2. Interval development of a 9 mm irregular nodule with mild adjacent groundglass opacity within the right upper lobe. This suggests a mild infectious etiology. A follow-up chest CT in 3 months to ensure resolution is recommended. 2. Mild cardiomegaly and mild dilatation of the ascending aorta. No dissection. Electronically signed by: Gabo Moore M.D. 02/08/2017 4:59 PM Dictated Date/Time: 02/08/2017 4:50 PM
[2017-02-08] MEDS ORDERED: LEVAQUIN 750MG / 150ML D5W IV STA (17:31)
[2017-02-08] MEDS ORDERED: ONDANSETRON INJ 2 MG/ML 2 ML VIAL IV PRN (18:15)
[2017-02-08] MEDS ORDERED: ACETAMINOPHEN 325 MG TAB PO PRN (18:15)
[2017-02-08] MEDS ORDERED: VANCOMYCIN INJ 2,250 MG in SODIUM CHLORIDE 0.9% 500ML 500 ML IV STA (18:23)
[2017-02-08] MEDS ORDERED: VANCOMYCIN CONSULT ACTIVE PRN (18:23)
[2017-02-08] MEDS ORDERED: AMLO2.5T PO (18:28)
[2017-02-08] MEDS ORDERED: OXYCODONE HCL IR 5 MG TAB (IMMEDIATE RELEASE) PO PRN (18:30)
[2017-02-08] MEDS ORDERED: SODIUM CHLORIDE 0.9% 1000ML 1,000 ML IV SCH (18:30)
--- NOTE | 2017-02-08 18:52 | Pharmacy Progress Note ---
Pharmacy Antibiotic Consult Date of Service: Feb 08, 2017. Pharmacy Dosing Scope Pharmacy is consulted to initiate Vancomycin IV dosing therapy, order appropriate labs and adjust drug dose/frequency. Subjective The patient is a 52 year old male. Objective Height (Feet): 6 Height (Inches): 0 Weight (Kilograms): 87.500 Lab Results (24hrs): Test 02/08/17 13:34 02/08/17 14:29 02/08/17 15:33 02/08/17 18:41 White Blood Count 12.95 K/uL (4.8-10.8) Red Blood Count 4.67 M/uL (4.7-6.1) Hemoglobin 13.8 g/dL (14.0-18.0) Hematocrit 39.9 % (42-52) Mean Corpuscular Volume 85.4 fL (80-100) Mean Corpuscular Hemoglobin 29.6 pg (25-34) Mean Corpuscular Hemoglobin Concent 34.6 g/dl (32-36) RDW Standard Deviation 40.8 fL (36.4-46.3) RDW Coefficient of Variation 13.1 % (11.5-14.5) Platelet Count 234 K/uL (130-400) Mean Platelet Volume 9.8 fL (7.4-10.4) Sodium Level 139 mmol/L (136-145) Potassium Level mmol/L (3.5-5.1) 3.8 mmol/L (3.5-5.1) Chloride Level 106 mmol/L (98-107) Carbon Dioxide Level 25 mmol/L (21-32) Anion Gap 8.0 mmol/L (3-11) Blood Urea Nitrogen 9 mg/dl (7-18) Creatinine 1.00 mg/dl (0.60-1.40) Est Creatinine Clear Calc Drug Dose 93.8 ml/min Estimated GFR () 99.2 Estimated GFR (Non- 85.5 BUN/Creatinine Ratio 9.4 (10-20) Random Glucose 120 mg/dl (70-99) Calcium Level 9.2 mg/dl (8.5-10.1) Magnesium Level mg/dl (1.8-2.4) 2.0 mg/dl (1.8-2.4) Total Bilirubin 0.3 mg/dl (0.2-1) Aspartate Amino Transf (AST/SGOT) U/L (15-37) 37 U/L (15-37) Alanine Aminotransferase (ALT/SGPT) 55 U/L (12-78) Alkaline Phosphatase 118 U/L (45-117) Total Creatine Kinase U/L (39-308) 189 U/L (39-308) Creatine Kinase MB 3.1 ng/ml (0.5-3.6) Creatine Kinase MB Ratio (0-3.0) Troponin I < 0.015 ng/ml (0-0.045) Total Protein 7.5 gm/dl (6.4-8.2) Albumin 3.9 gm/dl (3.4-5.0) Globulin 3.6 gm/dl (2.5-4.0) Albumin/Globulin Ratio 1.1 (0.9-2) Bedside Prothrombin Time INR 1.0 (0.9-1.1) Micro Results: See EMR Recent Pertinent Medications Item Value Date Time Aztreonam 2000 mg/ 110 ml @ 100 mls/hr 02/08/17 1815 Dextrose Q8H/IV Item Value Date Time Levofloxacin 750 150 ml @ 100 mls/hr 02/08/17 1815 mg/Prmx Q24H/IV Assessment & Plan 52 YO male with HIV presents with concern for possible pneumonia. Loading dose: 2250 mg IV X 1 dose then: 1000 mg IV every 8 hours. Estimated peak/trough level: 32/18 mcg/mL. Half life: ~9 hrs. Goal trough level estimate: between 15 - 20 mcg/mL. Peak and trough or random level has been ordered for: @ 1930. Pharmacy will continue to follow and will adjust dose/frequency as necessary. Thank you
[2017-02-08] MEDS ORDERED: VANCOMYCIN 1GM/270ML NSS IV STA (18:53)
[2017-02-08] MEDS ORDERED: ALBUT/IPRATROP 3MG/0.5MG NEB 3 ML VIAL INH PRN (19:00)
--- NOTE | 2017-02-08 19:02 | History and Physical ---
History & Physical Date & Time of Service: Feb 08, 2017 ~ 17:45 Chief Complaint: Syncope Primary Care Physician: Guillermo Burdick M.D. History of Present Illness 52 year old male who presents to the ER after a syncopal event. Patient reports that he was in the process of changing his Fentanyl patch and when he turned around he passed out and fell to the ground. He denies any preceding lightheadedness, dizziness, chest pain, or shortness of breath. He reports he hit his head and also the left side of his body when he fell. He reports that he has had a productive cough for green sputum, chills, and low grade fevers of the past 3 days. He denies abdominal pain, nausea, vomiting, or diarrhea. He does report severe reflux symptoms the past few months. No urinary symptoms. In the ER, CT chest is negative for PE but is showing an interval development of a 9 mm irregular nodule with mild adjacent groundglass opacity within the right upper lobe that suggests a mild infectious etiology. He was tachycardic on arrival that is improving with IVF. WBC 12K. Orthostatic BPs were positive. He was treated with IVF and IV Levaquin. Past Medical/Surgical History Medical Problems: (1) Anal dysplasia Status: Chronic (2) Anxiety Status: Chronic (3) AVM (arteriovenous malformation) brain Status: Chronic (4) Carotid stenosis Permanent Comment: 03/06/15-SAÚL occlusion, LICA with 50-59% stenosis Status: Chronic (5) Cerebritis Status: Chronic (6) COPD (chronic obstructive pulmonary disease) Status: Chronic (7) Depression Status: Chronic (8) Dyslipidemia Status: Chronic (9) History of alcohol abuse Status: Chronic (10) History of CVA (cerebrovascular accident) Permanent Comment: in setting of right carotid artery thrombosis Status: Chronic (11) Human immunodeficiency virus infection Status: Chronic (12) Hypertension Status: Chronic (13) Ischemic stroke Status: Chronic (14) Migraine Status: Chronic (15) Neuropathic pain of both feet Status: Chronic (16) Polyp of colon Status: Chronic (17) TIA (transient ischemic attack) Status: Chronic Family History Diabetes mellitus FATHER MOTHER FH: cancer FATHER (lung CA) Hypertension FATHER Social History Smoking Status: Current Every Day Smoker Alcohol Use: none Marital Status: Housing status: lives with significant other Immunizations History of Influenza Vaccine: Yes Influenza Vaccine Date: Mar 02, 2016 History of Tetanus Vaccine?: Yes Tetanus Immunization Date: Mar 28, 2012 History of Pneumococcal: Yes Pneumococcal Date: Mar 26, 2016 Allergies Coded Allergies: Penicillins (Verified Allergy, Severe, ANAPHYLAXIS, 12/28/16) Azithromycin (Verified Allergy, Intermediate, RASH AND SKIN PEELING, ) Niacin (Verified Allergy, Intermediate, RASH, 12/28/16) Sulfa Antibiotics (Verified Allergy, Unknown, "ITCHY RASH", 12/28/16) Tramadol (Verified Allergy, Unknown, RASH, 12/28/16) Gabapentin (Verified Adverse Reaction, Intermediate, hallucinations, ) Shellfish (Verified Adverse Reaction, Intermediate, gi symptoms, 12/28/16) Topiramate (Verified Adverse Reaction, Intermediate, NAUSEA, 12/28/16) Meloxicam (Verified Adverse Reaction, Unknown, GI SYMPTOMS, 12/28/16) Home Medications Scheduled Amlodipine (Norvasc), 2.5 MG PO DAILY Aspirin Enteric Coated (Ecotrin Or Generic), 81 MG PO QAM Atorvastatin (Atorvastatin Calcium), 20 MG PO QPM Budesonide/Formoterol Fumarate (Symbicort 160/4.5 Inhaler), 2 PUFFS INH BID Chlorthalidone (Chlorthalidone), 25 MG PO QAM Clopidogrel Bisulfate (Clopidogrel), 75 MG PO QAM Darunavir Ethanolate (Prezista), 600 MG PO BID Fentanyl (Fentanyl), 25 MCG TOP CQ72HR Fentanyl (Fentanyl), 12 MCG TOP CQ72HR Folic Acid (Folic Acid), 1 MG PO QAM Losartan Potassium (Cozaar), 100 MG PO DAILY Metoprolol Tartrate (Lopressor) (Lopressor), 100 MG PO BID Raltegravir Potassium (Isentress), 400 MG PO BID Ritonavir (Norvir), 100 MG PO BID Scheduled PRN Albuterol Hfa (Ventolin Hfa), 2 PUFFS INH Q6H PRN for Shortness of Breath Amitriptyline HCl (Amitriptyline HCl), 50-100 MG PO HS PRN for Sleep Furosemide (Furosemide), 20 MG PO DAILY PRN for Edema Ipratropium-Albuterol (Duoneb), 1 TREATMENT INH Q4H PRN for SOB/Wheezing Ondansetron (Ondansetron HCl), 4 MG PO Q8 PRN for Nausea Oxycodone HCl (Oxycodone HCl), 5 MG PO TID PRN for Pain Review of Systems ROS per HPI, all other systems reviewed and negative Physical Exam Vital Signs Date Time Temp Pulse Resp B/P (MAP) Pulse Ox O2 Delivery O2 Flow Rate FiO2 02/08/17 16:59 108 18 117/69 96 02/08/17 15:06 113 17 93 02/08/17 15:01 115/93 02/08/17 14:36 114 98 02/08/17 14:31 125/69 02/08/17 14:06 113 21 95 02/08/17 14:01 140/92 02/08/17 13:48 112 152/97 117 138/93 120 125/83 02/08/17 13:43 97 Room Air 02/08/17 13:43 97 Room Air 02/08/17 13:43 37.3 119 18 156/97 97 Room Air 02/08/17 13:36 114 19 99 02/08/17 13:32 125/83 02/08/17 13:30 152/97 02/08/17 13:21 117 02/08/17 13:14 156/97 General Appearance: no apparent distress Head: normocephalic Eyes: normal inspection ENT: hearing grossly normal Neck: supple, no JVD Respiratory/Chest: no respiratory distress, + decreased breath sounds Cardiovascular: no edema, normal peripheral pulses, + tachycardia (regular rhythm) Abdomen/GI: normal bowel sounds, non tender, soft Extremities/Musculoskelatal: normal inspection, no calf tenderness Neurologic/Psych: no motor/sensory deficits, alert, normal mood/affect, oriented x 3 Skin: normal color, warm/dry Diagnostics Laboratory Results Results Past 24 Hours Test 02/08/17 13:34 02/08/17 14:29 02/08/17 15:33 02/08/17 17:35 Range/Units White Blood Count 12.95 4.8-10.8 K/uL Red Blood Count 4.67 4.7-6.1 M/uL Hemoglobin 13.8 14.0-18.0 g/dL Hematocrit 39.9 42-52 % Mean Corpuscular Volume 85.4 80-100 fL Mean Corpuscular Hemoglobin 29.6 25-34 pg Mean Corpuscular Hemoglobin Concent 34.6 32-36 g/dl RDW Standard Deviation 40.8 36.4-46.3 fL RDW Coefficient of Variation 13.1 11.5-14.5 % Platelet Count 234 130-400 K/uL Mean Platelet Volume 9.8 7.4-10.4 fL Sodium Level 139 136-145 mmol/L Potassium Level 3.8 3.5-5.1 mmol/L Chloride Level 106 98-107 mmol/L Carbon Dioxide Level 25 21-32 mmol/L Anion Gap 8.0 3-11 mmol/L Blood Urea Nitrogen 9 7-18 mg/dl Creatinine 1.00 0.60-1.40 mg/dl Est Creatinine Clear Calc Drug Dose 93.8 ml/min Estimated GFR () 99.2 Estimated GFR (Non- 85.5 BUN/Creatinine Ratio 9.4 10-20 Random Glucose 120 70-99 mg/dl Calcium Level 9.2 8.5-10.1 mg/dl Magnesium Level 2.0 1.8-2.4 mg/dl Total Bilirubin 0.3 0.2-1 mg/dl Aspartate Amino Transf (AST/SGOT) 37 15-37 U/L Alanine Aminotransferase (ALT/SGPT) 55 12-78 U/L Alkaline Phosphatase 118 45-117 U/L Total Creatine Kinase 189 39-308 U/L Creatine Kinase MB 3.1 0.5-3.6 ng/ml Creatine Kinase MB Ratio 0-3.0 Troponin I < 0.015 0-0.045 ng/ml Total Protein 7.5 6.4-8.2 gm/dl Albumin 3.9 3.4-5.0 gm/dl Globulin 3.6 2.5-4.0 gm/dl Albumin/Globulin Ratio 1.1 0.9-2 Bedside Prothrombin Time INR 1.0 0.9-1.1 Microbiology Results 02/08/17 Blood Culture, Ordered Pending 02/08/17 Blood Culture, Ordered Pending Diagnostic Radiology CTA CHEST IMPRESSION: 1. No pulmonary emboli identified. 2. Interval development of a 9 mm irregular nodule with mild adjacent groundglass opacity within the right upper lobe. This suggests a mild infectious etiology. A follow-up chest CT in 3 months to ensure resolution is recommended. 3. Mild cardiomegaly and mild dilatation of the ascending aorta. No dissection. CXR IMPRESSION: 1. Equivocal 6 mm right midlung zone nodule 2. No evidence of failure. No evidence of focal pulmonary consolidation Impression Assessment and Plan PNEUMONIA - admit to tele - patient presenting with a syncopal event and productive cough, low grade fever , and chills x 3 days - meets SIRS criteria - WBC 12.9K, tachycardic; BP stable, afebrile, lactate pending; also immunocompromised w/ HIV - CTA chest in the ED negative for PE but showing an interval development of a 9 mm irregular nodule with mild adjacent groundglass opacity within the right upper lobe - hx of pneumonia in November 2016 in same location - consider aspiration from GERD as reason for reoccurrence - s/p Levaquin in the ED; due to SIRS and immunocompromising status will add Vanco and Aztreonam - blood and sputum cultures - pulmonary and ID consults SYNCOPE - likely due to hypovolemia from dehydration from pneumonia - EKG does not show any acute ST changes - will check CT head - renal functions normal but clinically dry on exam, + orthostatics - IVFs, hold diuretics, continue to monitor orthostatic BPs HIV - 01/14/17 - CD4 654, HIV-1 RNA 38 - continue home HIV meds COPD - no wheezing on exam - continue Symbicort, PRN nebs HTN - positive orthostatics but stable BPs even with standing - continue Losartan, metoprolol, and amlodipine - holding diuretics while giving IVF CHRONIC PAIN - continue home meds HX CVA - continue ASA and Plavix DVT PROPHYLAXIS - SQ Lovenox DISPO - In my clinical judgment this beneficiary meets acute admission criteria, established by [facility], that includes being hospitalized through two midnights. ATTENDING ADDENDUM: I have seen and evaluated the patient and discussed the case with the provider above. I agree with the A/P with the following exceptions. By my exam he was not ill-appearing and reports being sick for more like 1-2 weeks with symptoms being mild. He states that he doesn't feel he ever fully recovered from the prior bout of pneumonia in October when he was hospitalized. Breath sounds are diminished but no wheezing is heard. The patient has clubbing of the fingernails and actively smokes 1.5 ppd despite h/o stroke in the past for which he is on ASA 81 and Plavix. My exam revealed some abdominal tenderness related more to the left side where he fell this evening. He also did admit to some diarrhea recently and does appear dehydrated on exam. Cont plan as above with broad spectrum antibiotics, IVF and consults with both ID and pulm targeting RUL infiltrate and irregular nodule that is present. Sherrie Manley DO [facility] Level of Care Telemetry Resuscitation Status FULL RESUSCITATION VTE Prophylaxis VTE Risk Assessment Done? Y/N: Yes Risk Level: Moderate Given or contraindicated: Enoxaparin (Lovenox)SQ
--- NOTE | 2017-02-08 20:11 | DIAGNOSTIC IMAGING REPORT ---
CT OF THE HEAD WITHOUT CONTRAST CLINICAL HISTORY: Syncope. COMPARISON STUDY: Head CT November 17, 2016. CT DOSE: 601.98 mGy.cm TECHNIQUE: Helical axial images of the head were obtained without IV contrast. Automated exposure control was utilized for the study. A dose lowering technique was utilized adhering to the principles of ALARA. FINDINGS: No acute intracranial hemorrhage, midline shift or mass effect is present. Old right parietal lobe infarct is noted. Ventricular system is stable. The basilar cisterns are patent. There are no extra-axial collections. There are no findings to suggest acute dural sinus thrombosis or acute territorial infarct. There is no calvarial fracture. Visualized portions of the sinuses and mastoid air cells are clear. IMPRESSION: 1. No acute intracranial findings. 2. Old right parietal lobe infarct. Electronically signed by: Gabo Moore M.D. 02/08/2017 8:09 PM Dictated Date/Time: 02/08/2017 8:07 PM
[2017-02-08 20:24] VITALS: BP 159/99; PULSE 97; TEMP 36.4; O2SAT 97; Ht 182.9 cm; Wt 88.5 kg
[2017-02-08 20:36] VITALS: PULSE 88; O2SAT 96
[2017-02-08] MEDS ORDERED: FENTANYL 12 MCG/HR TDSY TD SCH (21:00)
[2017-02-08] MEDS: ENOXAPARIN 40 MG/0.4 ML SYR SC SCH (21:26)
[2017-02-08] MEDS: BUDESONIDE/FORMOTEROL FUMARATE 160/4.5 60 PUFFS/INHALER INH SCH (21:26)
[2017-02-08] MEDS: PANTOprazole SOD 40 MG TAB PO SCH (21:26)
[2017-02-08] MEDS: METOPROLOL TARTRATE 100 MG TAB PO SCH (21:27)
[2017-02-08] MEDS: ATORVASTATIN 20 MG TAB PO SCH (21:27)
[2017-02-08] MEDS: DARUNAVIR ETHANOLATE 600 MG TAB PO SCH (21:27)
[2017-02-08] MEDS: RALTEGRAVIR POTASSIUM TAB 400 MG TAB PO SCH (21:28)
[2017-02-08] MEDS: RITONAVIR 100 MG TAB PO SCH (21:28)
[2017-02-08] MEDS ORDERED: LORAZEPAM 0.5 MG TAB PO ONE (21:30)
[2017-02-08] MEDS: OXYCODONE HCL IR 5 MG TAB (IMMEDIATE RELEASE) PO PRN (21:38)
[2017-02-08] MEDS: SODIUM CHLORIDE 0.9% 1000ML 1,000 ML IV SCH (21:38)
[2017-02-08] MEDS: AZTREONAM IV 2,000 MG in DEXTROSE 5% 100ML 100 ML IV SCH (22:39)
[2017-02-08] MEDS ORDERED: LIDODERM (LIDOCAINE) PATCH 5% TD SCH (23:00)
[2017-02-09] VITALS (12 sets, daily range): BP systolic 109–148; BP diastolic 64–91; PULSE 73–96; TEMP 36.3–36.8; O2SAT 92–97
[2017-02-09] MEDS: CHECK FENTANYL PATCH PLACEMENT SCH ×6 (00:35→15:42)
[2017-02-09] MEDS: VANCOMYCIN INJ 1,000 MG in SODIUM CHLORIDE 0.9% 250ML 250 ML IV SCH ×3 (04:24→21:27)
[2017-02-09] MEDS: AZTREONAM IV 2,000 MG in DEXTROSE 5% 100ML 100 ML IV SCH ×3 (06:23→21:37)
[2017-02-09 07:06] LABS: HEMATOCRIT 35.7 % (42-52); MEAN CELL VOLUME 86.4 fL (80-100); MEAN CORPUSCULAR HEMOGLOBIN 29.1 pg (25-34); MEAN CORPUSCULAR HGB CONC 33.6 g/dl (32-36); MEAN PLATELET VOLUME 9.5 fL (7.4-10.4); PLATELET COUNT 219 K/uL (130-400); RED BLOOD COUNT 4.13 M/uL (4.7-6.1); WHITE BLOOD COUNT 6.42 K/uL (4.8-10.8)
[2017-02-09 07:31] LABS: BUN/CREATININE RATIO 9.5 (10-20); CALCIUM 8.6 mg/dl (8.5-10.1); CREATININE 0.96 mg/dl (0.60-1.40)
[2017-02-09] MEDS: SODIUM CHLORIDE 0.9% 1000ML 1,000 ML IV SCH ×2 (07:57→12:15)
[2017-02-09] MEDS: BUDESONIDE/FORMOTEROL FUMARATE 160/4.5 60 PUFFS/INHALER INH SCH ×2 (07:57→21:24)
[2017-02-09] MEDS: PANTOprazole SOD 40 MG TAB PO SCH ×2 (07:59→21:18)
[2017-02-09] MEDS: METOPROLOL TARTRATE 100 MG TAB PO SCH ×2 (07:59→21:17)
[2017-02-09] MEDS: CLOPIDOGREL BISULFATE 75 MG TAB PO SCH (07:59)
[2017-02-09] MEDS: ASPIRIN 81 MG ECTAB PO SCH (08:00)
[2017-02-09] MEDS: AMLODIPINE BESYLATE 5 MG TAB PO SCH (08:00)
[2017-02-09] MEDS: LOSARTAN POTASSIUM 50 MG TAB PO SCH (08:00)
[2017-02-09] MEDS: RALTEGRAVIR POTASSIUM TAB 400 MG TAB PO SCH ×2 (08:01→21:16)
[2017-02-09] MEDS: RITONAVIR 100 MG TAB PO SCH ×2 (08:02→21:17)
[2017-02-09] MEDS: DARUNAVIR ETHANOLATE 600 MG TAB PO SCH ×2 (08:02→21:18)
[2017-02-09] MEDS: OXYCODONE HCL IR 5 MG TAB (IMMEDIATE RELEASE) PO PRN ×3 (08:07→22:32)
[2017-02-09] MEDS: LIDODERM (LIDOCAINE) PATCH 5% TD SCH (08:29)
[2017-02-09] MEDS ORDERED: AMITRIPTYLINE HCL 50 MG TAB PO PRN (09:15)
--- NOTE | 2017-02-09 09:38 | Progress Note ---
Subjective Date of Service: Feb 09, 2017. Subjective Pt evaluation today including: conversation w/ patient, physical exam, lab review, review of studies, conversation w/ remediation consultant, review of inpatient medication list Saw/examined the patient in room 207 He feels better today, denies shortness of breath Chest congestion improving Problem List Medical Problems: (1) Abdominal pain Status: Acute (2) AIDS (acquired immunodeficiency syndrome), CD4 >200 and <500 Status: Acute (3) Anterior chest wall pain Status: Acute (4) Chest pain, rule out acute myocardial infarction Status: Acute (5) Chills Status: Acute (6) Dehydration Status: Acute (7) Dehydration Status: Acute (8) Diarrhea Status: Acute (9) Diarrhea Status: Acute (10) Gastroenteritis Status: Acute (11) Headache Status: Acute (12) Hypokalemia Status: Acute (13) Immunocompromised Status: Acute (14) Involuntary movements Status: Acute (15) Left sided chest pain Status: Acute (16) Left sided chest pain Status: Acute (17) Paresthesia Status: Acute (18) Pneumonia Status: Acute (19) Precordial chest pain Status: Acute (20) Right leg weakness Status: Acute (21) Syncope Status: Acute (22) Syncope Status: Acute (23) TIA (transient ischemic attack) Status: Acute Review of Systems Constitutional: No fever, No chills Respiratory: No cough (resolved), No sputum, No wheezing, No shortness of breath, No dyspnea on exertion Cardiac: No chest pain, No edema, No palpitations Abdomen: No pain, No nausea, No vomiting, No diarrhea Neurologic: + vertigo (improved) Medications Current Inpatient Medications Medications (Trade) Dose Ordered Sig/Josh Route Start Time Stop Time Status Last Admin Dose Admin Ioversol (Optiray 320) 95 ml UD PRN IV 02/08/17 17:00 02/12/17 16:59 Enoxaparin Sodium (Lovenox Inj) 40 mg Q24H SC 02/08/17 21:00 03/10/17 20:59 02/08/17 21:26 40 MG Acetaminophen (Tylenol Tab) 650 mg Q4H PRN PO 02/08/17 18:15 03/10/17 18:14 Ondansetron HCl (Zofran Inj) 4 mg Q6H PRN IV 02/08/17 18:15 03/10/17 18:14 Vancomycin HCl (Consult) 1 ea UD PRN N/A 02/08/17 18:23 03/10/17 18:22 Aztreonam 2000 mg/ Dextrose 110 ml @ 100 mls/hr Q8H IV 02/08/17 22:00 02/15/17 18:14 02/09/17 06:23 100 MLS/HR Levofloxacin 750 mg/Prmx 150 ml @ 100 mls/hr Q24H IV 02/09/17 20:00 02/15/17 19:59 Pantoprazole Sodium (Protonix Tab) 40 mg BID PO 02/08/17 21:00 03/10/17 20:59 02/09/17 07:59 40 MG Amlodipine Besylate (Norvasc Tab) 2.5 mg DAILY PO 02/09/17 09:00 03/11/17 08:59 02/09/17 08:00 2.5 MG Aspirin (Ecotrin Tab) 81 mg QAM PO 02/09/17 09:00 03/11/17 08:59 02/09/17 08:00 81 MG Atorvastatin Calcium (Lipitor Tab) 20 mg QPM PO 02/08/17 21:00 03/10/17 20:59 02/08/17 21:27 20 MG Budesonide/ Formoterol Fumarate (Symbicort 160/ 4.5 Inh) 2 puffs BID INH 02/08/17 21:00 03/10/17 20:59 02/09/17 07:57 2 PUFFS Clopidogrel Bisulfate (plAVix TAB) 75 mg QAM PO 02/09/17 09:00 03/11/17 08:59 02/09/17 07:59 75 MG Fentanyl (Duragesic Patch) 25 mcg Q72H TD 02/11/17 09:00 02/25/17 08:59 Folic Acid (Folvite Tab) 1 mg QAM PO 02/09/17 09:00 03/11/17 08:59 02/09/17 08:00 1 MG Losartan Potassium (coZAAR TAB) 100 mg DAILY PO 02/09/17 09:00 03/11/17 08:59 02/09/17 08:00 100 MG Metoprolol Tartrate (Lopressor Tab) 100 mg BID PO 02/08/17 21:00 03/10/17 20:59 02/09/17 07:59 100 MG Raltegravir (Isentress Tab) 400 mg BID PO 02/08/17 21:00 03/10/17 20:59 02/09/17 08:01 400 MG Non-Formulary Medication (Darunavir Ethanolate (Prezista)) 600 mg BID PO 02/08/17 21:00 03/10/17 20:59 UNV Ritonavir (Norvir) 100 BID PO 02/08/17 21:00 03/10/17 20:59 02/09/17 08:02 100 Albuterol/ Ipratropium (Duoneb) 3 ml Q4R PRN INH 02/08/17 19:00 03/10/17 18:59 02/08/17 20:36 3 ML Sodium Chloride 1,000 ml @ 100 mls/hr Q10H IV 02/08/17 19:00 03/10/17 18:59 02/09/17 07:57 100 MLS/HR Vancomycin HCl 1000 mg/Sodium Chloride 270 ml @ 125 mls/hr Q8@0400,1200,2000 IV 02/09/17 04:00 02/16/17 03:59 02/09/17 04:24 125 MLS/HR Fentanyl (Duragesic Patch) 12 mcg Q72H TD 02/11/17 09:00 02/25/17 08:59 Miscellaneous (Fentanyl Patch Remove & Waste) 1 ea Q3D@0859 N/A 02/11/17 08:59 03/13/17 08:58 Miscellaneous Information (Check Fentanyl Patch Placement) 1 ea QS N/A 02/09/17 00:00 03/11/17 00:00 02/09/17 08:30 1 EA Miscellaneous (Fentanyl Patch Remove & Waste) 1 ea Q3D@0859 N/A 02/11/17 08:59 03/13/17 08:58 Miscellaneous Information (Check Fentanyl Patch Placement) 1 ea QS N/A 02/09/17 00:00 03/11/17 00:00 02/09/17 07:58 1 EA Oxycodone HCl (Roxicodone Immediate Rel Tab) 5 mg TID PRN PO 02/08/17 21:30 02/22/17 21:29 02/09/17 08:07 5 MG Lidocaine (Lidoderm Patch 5%) 1 patch QAM TD 02/09/17 09:00 03/11/17 08:59 02/09/17 08:29 1 PATCH Miscellaneous (Remove Lidoderm Patch) 1 ea DAILY@21 N/A 02/09/17 21:00 03/11/17 20:59 Objective Vital Signs Date Time Temp Pulse Resp B/P (MAP) Pulse Ox O2 Delivery O2 Flow Rate FiO2 02/09/17 04:00 Room Air 02/09/17 03:53 36.6 80 17 118/69 (85) 95 Room Air 02/09/17 00:07 36.6 85 17 111/71 (84) 95 Room Air 02/08/17 23:59 Room Air 02/08/17 20:36 88 18 96 Room Air 02/08/17 20:24 36.4 97 20 159/99 97 Room Air 02/08/17 19:58 37.3 102 18 148/94 99 02/08/17 19:53 102 18 148/94 99 02/08/17 18:41 105 100 02/08/17 17:31 145/89 02/08/17 17:01 131/80 02/08/17 16:59 117/69 02/08/17 16:59 108 18 117/69 96 02/08/17 16:11 111 17 02/08/17 16:01 119/80 02/08/17 15:41 110 20 02/08/17 15:31 139/82 02/08/17 15:11 112 17 93 02/08/17 15:06 113 17 93 02/08/17 15:01 115/93 02/08/17 14:36 114 98 02/08/17 14:31 125/69 02/08/17 14:06 113 21 95 02/08/17 14:01 140/92 02/08/17 13:48 112 152/97 117 138/93 120 125/83 02/08/17 13:43 97 Room Air 02/08/17 13:43 97 Room Air 02/08/17 13:43 37.3 119 18 156/97 97 Room Air 02/08/17 13:36 114 19 99 02/08/17 13:32 125/83 02/08/17 13:30 152/97 02/08/17 13:21 117 02/08/17 13:14 156/97 Physical Exam General Appearance: no apparent distress Respiratory/Chest: chest non-tender, lungs clear, normal breath sounds, no respiratory distress, no accessory muscle use Cardiovascular: regular rate, rhythm, no edema, no murmur Abdomen: normal bowel sounds, non tender, soft Extremities: normal inspection, no pedal edema Neurologic/Psychiatric: no motor/sensory deficits, alert, normal mood/affect Laboratory Results Last 24 Hours Test 02/08/17 13:34 02/08/17 14:29 02/08/17 15:33 02/08/17 18:41 White Blood Count 12.95 K/uL Red Blood Count 4.67 M/uL Hemoglobin 13.8 g/dL Hematocrit 39.9 % Mean Corpuscular Volume 85.4 fL Mean Corpuscular Hemoglobin 29.6 pg Mean Corpuscular Hemoglobin Concent 34.6 g/dl RDW Standard Deviation 40.8 fL RDW Coefficient of Variation 13.1 % Platelet Count 234 K/uL Mean Platelet Volume 9.8 fL Sodium Level 139 mmol/L Potassium Level mmol/L 3.8 mmol/L Chloride Level 106 mmol/L Carbon Dioxide Level 25 mmol/L Anion Gap 8.0 mmol/L Blood Urea Nitrogen 9 mg/dl Creatinine 1.00 mg/dl Est Creatinine Clear Calc Drug Dose 93.8 ml/min Estimated GFR () 99.2 Estimated GFR (Non- 85.5 BUN/Creatinine Ratio 9.4 Random Glucose 120 mg/dl Calcium Level 9.2 mg/dl Magnesium Level mg/dl 2.0 mg/dl Total Bilirubin 0.3 mg/dl Aspartate Amino Transf (AST/SGOT) U/L 37 U/L Alanine Aminotransferase (ALT/SGPT) 55 U/L Alkaline Phosphatase 118 U/L Total Creatine Kinase U/L 189 U/L Creatine Kinase MB 3.1 ng/ml Creatine Kinase MB Ratio Troponin I < 0.015 ng/ml Total Protein 7.5 gm/dl Albumin 3.9 gm/dl Globulin 3.6 gm/dl Albumin/Globulin Ratio 1.1 Bedside Prothrombin Time INR 1.0 Lactic Acid Level 3.5 mmol/L Test 02/08/17 23:56 02/09/17 06:30 Lactic Acid Level 0.7 mmol/L White Blood Count 6.42 K/uL Red Blood Count 4.13 M/uL Hemoglobin 12.0 g/dL Hematocrit 35.7 % Mean Corpuscular Volume 86.4 fL Mean Corpuscular Hemoglobin 29.1 pg Mean Corpuscular Hemoglobin Concent 33.6 g/dl RDW Standard Deviation 41.6 fL RDW Coefficient of Variation 13.1 % Platelet Count 219 K/uL Mean Platelet Volume 9.5 fL Assessment and Plan This is a 52 year old male with a PMH of HIV and ongoing HAART therapy, hx. of CVA and carotid artery stenosis, hx. of rectal CA s/p surgical resection, hx. of brain AVM presents with syncope and pneumonia Pneumonia - improving patient is doing well CT showed an irregular nodule in the R upper lobe, possibly mildly infectious WBC and lactic acidosis have both been resolved for now, continue regimen of Vanco, Aztreonam, Levaquin appreciate pulm input - likely d/c in AM on Levaquin ID consultation pending secondary to recurrent pneumonia and immunocompromised state Syncope - resolved likely from hypovolemia lactic acid was elevated fluid resuscitated denies any dizziness today HIV ongoing HAART therapy which we can continue ID follow-up for February with Dr. Blount Chronic Pain continue home medications HTN hold diuretics, continue other anti-hypertensives Hx. of CVA continue aspirin and Plavix DVT ppx Lovenox FULL CODE
--- NOTE | 2017-02-09 09:55 | Pulmonary Consultation ---
History General Date of Service: Feb 09, 2017. Stated Complaint: Pneumonia, Syncope HPI The patient is a 52 year old male who presents to [facility] with complaints of Pneumonia, Syncope. The patient's primary care provider is Guillermo Burdick M.D.. Mr Higgins is 52 year old male with HIV( last CD4 654, HIV-1 RNA 38 on 01/14/2017) who presented with syncope on while attempting to change Fentanyl patch. His significant other heard him fall and called EMS. He is unsure if he hit head. He denies any lightheadedness, dizziness or instability prior to event. He denies any fever, chills,shortness of breath pain. He does have intermittent cough with some productive sputum. He has unlimited exercise tolerance and able to perform all activities of daily living. He denies any nausea, vomiting, diarrhea, constipation or genitourinary symptoms. He endorse symptoms of gastric reflux over the past few months. He states that he had episode of fever, chills about 2 months ago and was treated for pneumonia. At that time he had diarrhea, but that has now resolved. Had colonoscopy on on 01/05 polypectomy was performed x2, showed tubular adenoma. In the ER his VS were Tm 37.3, P 119, RR 18, BP 156/97, 97% on RA. Laboratory data significant for WBC 12.9, Hgb 13.8, Plt 234, Na 139, K 3.8, Cl 106, Co2 25, BUN 9, Cr 1.0, Lactate 3.5-->0.7, ALP 118, Troponin < 0.015, Albumin 3.9. CXR showed interval development of 6 mm nodule in RUL. A CT chest was done to further evaluate nodule and showed a 9 mm irregular nodule in RUL. There was right lower lobe ground glass opacification suggestive of atelectasis. Previously seen irregular groundglass densities in RUL seen on prior CT chest in November 2016 have resolved. He was admitted to telemetry for syncope and RUL pneumonia. He was given IVF and started on Levoquin 750 mg IV. Today, patient states that he feels much better. He denies any respiratory symptoms. He would like to be discharged. Historian: patient Onset: just prior to arrival Complaint Status: improved Review of Systems Constitutional: reports: no symptoms Eyes: reports: no symptoms ENT: reports: no symptoms Cardiovascular: reports: no symptoms Respiratory: reports: no symptoms Gastrointestinal: reports: no symptoms Genitourinary - Male: reports: no symptoms Musculoskeletal: reports: no symptoms Integumentary: reports: no symptoms Neurologic: reports: no symptoms Psychiatric: reports: no symptoms Endocrine: no symptoms Hematologic / Lymphatic: no symptoms Allergic / Immunologic: no symptoms All Other Symptoms All Other Systems: Reviewed and Negative Past Medical History Past Medical History: (1) Anal dysplasia (2) Anxiety (3) AVM (arteriovenous malformation) brain (4) Carotid stenosis Permanent Comment: 03/06/15-SAÚL occlusion, LICA with 50-59% stenosis (5) Cerebritis (6) COPD (chronic obstructive pulmonary disease)- FEV1 (unknown) (7) Depression (8) Dyslipidemia (9) History of alcohol abuse (10) History of CVA (cerebrovascular accident) Permanent Comment: in setting of right carotid artery thrombosis Status: Chronic (11) Human immunodeficiency virus infection (12) Hypertension (13) Ischemic stroke (14) Migraine (15) Neuropathic pain of both feet (16) Polyp of colon (17) TIA (transient ischemic attack) Past Surgical History: Polypectomy November 2016 Family History Diabetes mellitus FATHER MOTHER FH: cancer FATHER (lung CA) Hypertension FATHER Diabetes mellitus FATHER MOTHER FH: cancer FATHER (lung CA) Hypertension FATHER Social History Social History Smoking Status: Current Every Day Smoker 1/2 ppd x 10 years. Smoked since 14 years old. Alcohol Use: none Marital Status: Housing status: lives with significant other Hx Tobacco Use In Past Year?: Yes Smoking Status: Current Every Day Smoker Marital status: Housing status: lives with significant other Immunizations History of Influenza Vaccine: Yes Influenza Vaccine Date: Mar 02, 2016 History of Tetanus Vaccine?: Yes Tetanus Immunization Date: Mar 28, 2012 History of Pneumococcal: Yes Pneumococcal Date: Mar 26, 2016 Allergies Coded Allergies: Penicillins (Verified Allergy, Severe, ANAPHYLAXIS, 12/28/16) Azithromycin (Verified Allergy, Intermediate, RASH AND SKIN PEELING, ) Niacin (Verified Allergy, Intermediate, RASH, 12/28/16) Sulfa Antibiotics (Verified Allergy, Unknown, "ITCHY RASH", 12/28/16) Tramadol (Verified Allergy, Unknown, RASH, 12/28/16) Gabapentin (Verified Adverse Reaction, Intermediate, hallucinations, ) Shellfish (Verified Adverse Reaction, Intermediate, gi symptoms, 12/28/16) Topiramate (Verified Adverse Reaction, Intermediate, NAUSEA, 12/28/16) Meloxicam (Verified Adverse Reaction, Unknown, GI SYMPTOMS, 12/28/16) Current Medications Reported Home Medications Medications Dose Route/Sig Max Daily Dose Days Date Category Dose Instructions Norvasc (Amlodipine Besylate) 2.5 Mg Tab 2.5 Mg PO DAILY 02/08/17 Reported Ecotrin Or Generic (Aspirin) 81 Mg Tab 81 Mg PO QAM 01/08/17 Reported Ondansetron HCl (Ondansetron) 4 Mg Tab 4 Mg PO Q8 PRN 01/08/17 Reported Atorvastatin Calcium (Atorvastatin) 20 Mg Tab 20 Mg PO QPM 01/08/17 Reported Cozaar (Losartan Potassium) 100 Mg Tab 100 Mg PO DAILY 01/08/17 Reported Lopressor (Metoprolol Tartrate) 100 Mg Tab 100 Mg PO BID 01/08/17 Reported Amitriptyline HCl 50 Mg Tab 50-100 Mg PO HS PRN 01/08/17 Reported Oxycodone HCl 5 Mg Tab 5 Mg PO TID PRN 01/08/17 Reported Clopidogrel (Clopidogrel Bisulfate) 75 Mg Tab 75 Mg PO QAM 01/08/17 Reported Chlorthalidone 25 Mg Tab 25 Mg PO QAM 01/08/17 Reported Duoneb (Ipratropium-Albuterol) 3 Ml Nebu 1 Treatment INH Q4H PRN 11/17/16 Reported Fentanyl 12 Mcg Tdsy 12 Mcg TOP CQ72HR 11/17/16 Reported Fentanyl 25 Mcg Tdsy 25 Mcg TOP CQ72HR 10/22/16 Reported Ventolin Hfa (Albuterol) 200 Puffs/19614 Mcg Aers 2 Puffs INH Q6H PRN 10/22/16 Reported Folic Acid 1 Mg Tab 1 Mg PO QAM 03/24/16 Reported Furosemide 20 Mg Tab 20 Mg PO DAILY PRN 03/24/16 Reported Prezista (Darunavir Ethanolate) 600 Mg Tab 600 Mg PO BID 03/05/15 Reported TAKE THIS MEDICATION WITH FOOD Isentress (Raltegravir Potassium) 400 Mg Tab 400 Mg PO BID 03/05/15 Reported Norvir (Ritonavir) 100 Mg Tab 100 Mg PO BID 03/05/15 Reported Symbicort 160/4.5 Inhaler (Budesonide/Formoterol Fumarate) 120 Puffs/ Aero 2 Puffs INH BID 03/05/15 Reported Physical Physical Exam Vital Signs: Date Time Temp Pulse Resp B/P (MAP) Pulse Ox O2 Delivery O2 Flow Rate FiO2 02/09/17 07:47 36.5 81 20 136/83 (100) 92 Room Air 02/09/17 04:00 Room Air 02/09/17 03:53 36.6 80 17 118/69 (85) 95 Room Air 02/09/17 00:07 36.6 85 17 111/71 (84) 95 Room Air 02/08/17 23:59 Room Air 02/08/17 20:36 88 18 96 Room Air 02/08/17 20:24 36.4 97 20 159/99 97 Room Air 02/08/17 19:58 37.3 102 18 148/94 99 02/08/17 19:53 102 18 148/94 99 02/08/17 18:41 105 100 02/08/17 17:31 145/89 02/08/17 17:01 131/80 02/08/17 16:59 117/69 02/08/17 16:59 108 18 117/69 96 02/08/17 16:11 111 17 02/08/17 16:01 119/80 02/08/17 15:41 110 20 02/08/17 15:31 139/82 02/08/17 15:11 112 17 93 02/08/17 15:06 113 17 93 02/08/17 15:01 115/93 02/08/17 14:36 114 98 02/08/17 14:31 125/69 02/08/17 14:06 113 21 95 02/08/17 14:01 140/92 02/08/17 13:48 112 152/97 117 138/93 120 125/83 02/08/17 13:43 97 Room Air 02/08/17 13:43 97 Room Air 02/08/17 13:43 37.3 119 18 156/97 97 Room Air 02/08/17 13:36 114 19 99 02/08/17 13:32 125/83 02/08/17 13:30 152/97 02/08/17 13:21 117 02/08/17 13:14 156/97 General Appearance: WELL-APPEARING, WD/WN, NO APPARENT DISTRESS Head: NORMOCEPHALIC, ATRAUMATIC Eyes: PERRLA, NO DISCHARGE, EOMI, SCLERAE NORMAL, CONJUNCTIVAE NORMAL ENT: NORMAL MOUTH EXAM, NORMAL THROAT EXAM (no oral thrush noted) Neck: NORMAL RANGE OF MOTION, NO TENDERNESS, TRACHEA MIDLINE Respiratory: BREATH SOUNDS NORMAL, CLEAR TO AUSCULTATION, CLEAR TO PERCUSSION Cardiovasular: REGULAR RATE/RHYTHM, NORMAL S1S2, NO M/G/R, NO MURMUR Abdomen: NON TENDER, NORMAL BOWEL SOUNDS Pelvic: UTERUS NORMAL Back: NORMAL INSPECTION Upper Extremities: NO EDEMA, other (clubbing of nails) Lower Extremities: NO EDEMA, other (clubbing of toes) Pulses: dorsalis pedis (R) (2+), dorsalis pedis (L) (2+) Neuro: ALERT, ORIENTED x 3, NORMAL SPEECH Psychiatric: NORMAL AFFECT, NO SUICIDAL IDEATION, CONTRACTS FOR SAFETY Diagnostics Labs Results Past 24 Hours Test 02/08/17 13:34 02/08/17 14:29 02/08/17 15:33 02/08/17 18:41 Range/Units White Blood Count 12.95 4.8-10.8 K/uL Red Blood Count 4.67 4.7-6.1 M/uL Hemoglobin 13.8 14.0-18.0 g/dL Hematocrit 39.9 42-52 % Mean Corpuscular Volume 85.4 80-100 fL Mean Corpuscular Hemoglobin 29.6 25-34 pg Mean Corpuscular Hemoglobin Concent 34.6 32-36 g/dl RDW Standard Deviation 40.8 36.4-46.3 fL RDW Coefficient of Variation 13.1 11.5-14.5 % Platelet Count 234 130-400 K/uL Mean Platelet Volume 9.8 7.4-10.4 fL Sodium Level 139 136-145 mmol/L Potassium Level 3.8 3.5-5.1 mmol/L Chloride Level 106 98-107 mmol/L Carbon Dioxide Level 25 21-32 mmol/L Anion Gap 8.0 3-11 mmol/L Blood Urea Nitrogen 9 7-18 mg/dl Creatinine 1.00 0.60-1.40 mg/dl Est Creatinine Clear Calc Drug Dose 93.8 ml/min Estimated GFR () 99.2 Estimated GFR (Non- 85.5 BUN/Creatinine Ratio 9.4 10-20 Random Glucose 120 70-99 mg/dl Calcium Level 9.2 8.5-10.1 mg/dl Magnesium Level 2.0 1.8-2.4 mg/dl Total Bilirubin 0.3 0.2-1 mg/dl Aspartate Amino Transf (AST/SGOT) 37 15-37 U/L Alanine Aminotransferase (ALT/SGPT) 55 12-78 U/L Alkaline Phosphatase 118 45-117 U/L Total Creatine Kinase 189 39-308 U/L Creatine Kinase MB 3.1 0.5-3.6 ng/ml Creatine Kinase MB Ratio 0-3.0 Troponin I < 0.015 0-0.045 ng/ml Total Protein 7.5 6.4-8.2 gm/dl Albumin 3.9 3.4-5.0 gm/dl Globulin 3.6 2.5-4.0 gm/dl Albumin/Globulin Ratio 1.1 0.9-2 Bedside Prothrombin Time INR 1.0 0.9-1.1 Lactic Acid Level 3.5 0.4-2.0 mmol/L Test 02/08/17 23:56 02/09/17 06:30 Range/Units Lactic Acid Level 0.7 0.4-2.0 mmol/L White Blood Count 6.42 4.8-10.8 K/uL Red Blood Count 4.13 4.7-6.1 M/uL Hemoglobin 12.0 14.0-18.0 g/dL Hematocrit 35.7 42-52 % Mean Corpuscular Volume 86.4 80-100 fL Mean Corpuscular Hemoglobin 29.1 25-34 pg Mean Corpuscular Hemoglobin Concent 33.6 32-36 g/dl RDW Standard Deviation 41.6 36.4-46.3 fL RDW Coefficient of Variation 13.1 11.5-14.5 % Platelet Count 219 130-400 K/uL Mean Platelet Volume 9.5 7.4-10.4 fL Sodium Level 140 136-145 mmol/L Potassium Level 4.0 3.5-5.1 mmol/L Chloride Level 109 98-107 mmol/L Carbon Dioxide Level 26 21-32 mmol/L Anion Gap 5.0 3-11 mmol/L Blood Urea Nitrogen 9 7-18 mg/dl Creatinine 0.96 0.60-1.40 mg/dl Est Creatinine Clear Calc Drug Dose 97.7 ml/min Estimated GFR () 104.2 Estimated GFR (Non- 89.9 BUN/Creatinine Ratio 9.5 10-20 Random Glucose 106 70-99 mg/dl Calcium Level 8.6 8.5-10.1 mg/dl Microbiology Results 02/08/17 Blood Culture, Received Pending 02/08/17 Blood Culture, Received Pending Diagnostic Radiology CXR 02/08/2017 FINDINGS: No acute intracranial hemorrhage, midline shift or mass effect is present. Old right parietal lobe infarct is noted. Ventricular system is stable. The basilar cisterns are patent. There are no extra-axial collections. There are no findings to suggest acute dural sinus thrombosis or acute territorial infarct. There is no calvarial fracture. Visualized portions of the sinuses and mastoid air cells are clear. IMPRESSION: 1. No acute intracranial findings. 2. Old right parietal lobe infarct. CXR 02/08/2017 FINDINGS: The heart is normal in size. There is no failure. There is no focal pulmonary consolidation. There are no pleural effusions. There is an equivocal 6 mm right midlung zone nodule. IMPRESSION: 1. Equivocal 6 mm right midlung zone nodule 2. No evidence of failure. No evidence of focal pulmonary consolidation CT chest 02/08/2017 FINDINGS: No pulmonary emboli are identified. The heart is mildly enlarged. There is moderate coronary artery calcification. There is no evidence of thoracic aortic dissection. Mild dilatation of the ascending aorta, measuring 4.2 cm at the level of the main pulmonary artery is similar to prior studies. No enlarged thoracic lymph nodes are present. No pneumothorax or pleural effusion is present. Groundglass opacities reflect atelectasis. There has been interval development of an irregular 9 mm right upper lobe nodule shown image 165 of [id number]. The multifocal right upper lobe airspace opacity shown on exam of November 17, 2016 have resolved. Bony thorax is unremarkable. There is fatty infiltration of the liver. IMPRESSION: 1. No pulmonary emboli identified. 2. Interval development of a 9 mm irregular nodule with mild adjacent groundglass opacity within the right upper lobe. This suggests a mild infectious etiology. A follow-up chest CT in 3 months to ensure resolution is recommended. 2. Mild cardiomegaly and mild dilatation of the ascending aorta. No dissection. EKG 02/08/2017 Sinus tachycardia 119 bpm Possible Inferior infarct , age undetermined Abnormal ECG Impression Assessment and Plan HIV Syncope RUL pneumonia COPD (by history, unknown FEV1) Tobacco use disorder Patient has new RUL 9 mm nodule that was not present on CT scan in November 2016. This most likely represents interval development of pneumonia. Due to his HIV status and active smoking history he is at an increases risk for malignancy. Continue with Levaquin for 5 days. F/u blood culture-still pending Continue with Symbicort Incentive spirometry for basilar atelectasis Recommend interval CT chest in 3 months to evaluate for resolution, otherwise further work up is warranted Smoking cessation counseling offered. He is not ready to quit smoking yet Continue with PPI for GERD Continue HIV management per ID Syncope work up and other medical management per primary team I appreciate the consult. Please contact me if you have any further questions or concerns.
--- NOTE | 2017-02-09 10:16 | Medical Consult ---
Consultation Date of Consultation: Feb 09, 2017. Attending Physician: Yumiko Pritchard DO Reason for Consultation: HIV, recurrent pneumonia History of Present Illness 52-year-old male well known to the Infectious Disease service, with longstanding HIV infection who has had recent bout of pneumonia 2 months ago responding to course of levofloxacin. He now was readmitted after a syncopal episode. He had CT scan of the chest to evaluate for possible pulmonary emboli , and a new right upper lobe nodular infiltrate was seen consistent with possible developing pneumonia. Patient today is feeling better, is afebrile, with normal white blood cell count. He has been compliant with his HIV medications with undetectable viral load and CD4 count in the 800s. No new HIV related complaints. He has been started empirically on levofloxacin. Cultures are pending. Past Medical/Surgical History Medical Problems: (1) Abdominal pain Status: Acute (2) AIDS (acquired immunodeficiency syndrome), CD4 >200 and <500 Status: Acute (3) Anterior chest wall pain Status: Acute (4) Chest pain, rule out acute myocardial infarction Status: Acute (5) Chills Status: Acute (6) Dehydration Status: Acute (7) Dehydration Status: Acute (8) Diarrhea Status: Acute (9) Diarrhea Status: Acute (10) Gastroenteritis Status: Acute (11) Headache Status: Acute (12) Hypokalemia Status: Acute (13) Immunocompromised Status: Acute (14) Involuntary movements Status: Acute (15) Left sided chest pain Status: Acute (16) Left sided chest pain Status: Acute (17) Paresthesia Status: Acute (18) Pneumonia Status: Acute (19) Precordial chest pain Status: Acute (20) Right leg weakness Status: Acute (21) Syncope Status: Acute (22) Syncope Status: Acute (23) TIA (transient ischemic attack) Status: Acute Medical Problems: (1) Anal dysplasia (2) Anxiety (3) AVM (arteriovenous malformation) brain (4) Carotid stenosis (5) Cerebritis (6) COPD (chronic obstructive pulmonary disease) (7) Depression (8) Dyslipidemia (9) History of alcohol abuse (10) History of CVA (cerebrovascular accident) (11) Human immunodeficiency virus infection (12) Hypertension (13) Ischemic stroke (14) Migraine (15) Neuropathic pain of both feet (16) Polyp of colon (17) TIA (transient ischemic attack) Family History Diabetes mellitus FATHER MOTHER FH: cancer FATHER (lung CA) Hypertension FATHER Social History Smoking Status: Current Every Day Smoker Alcohol Use: none Marital Status: Housing Status: lives with family Allergies Coded Allergies: Penicillins (Verified Allergy, Severe, ANAPHYLAXIS, 12/28/16) Azithromycin (Verified Allergy, Intermediate, RASH AND SKIN PEELING, ) Niacin (Verified Allergy, Intermediate, RASH, 12/28/16) Sulfa Antibiotics (Verified Allergy, Unknown, "ITCHY RASH", 12/28/16) Tramadol (Verified Allergy, Unknown, RASH, 12/28/16) Gabapentin (Verified Adverse Reaction, Intermediate, hallucinations, ) Shellfish (Verified Adverse Reaction, Intermediate, gi symptoms, 12/28/16) Topiramate (Verified Adverse Reaction, Intermediate, NAUSEA, 12/28/16) Meloxicam (Verified Adverse Reaction, Unknown, GI SYMPTOMS, 12/28/16) Current Inpatient Medications Current Inpatient Medications Medications (Trade) Dose Ordered Sig/Josh Route Start Time Stop Time Status Last Admin Dose Admin Ioversol (Optiray 320) 95 ml UD PRN IV 02/08/17 17:00 02/12/17 16:59 Enoxaparin Sodium (Lovenox Inj) 40 mg Q24H SC 02/08/17 21:00 03/10/17 20:59 02/08/17 21:26 40 MG Acetaminophen (Tylenol Tab) 650 mg Q4H PRN PO 02/08/17 18:15 03/10/17 18:14 Ondansetron HCl (Zofran Inj) 4 mg Q6H PRN IV 02/08/17 18:15 03/10/17 18:14 Vancomycin HCl (Consult) 1 ea UD PRN N/A 02/08/17 18:23 03/10/17 18:22 Aztreonam 2000 mg/ Dextrose 110 ml @ 100 mls/hr Q8H IV 02/08/17 22:00 02/15/17 18:14 02/09/17 06:23 100 MLS/HR Levofloxacin 750 mg/Prmx 150 ml @ 100 mls/hr Q24H IV 02/09/17 20:00 02/15/17 19:59 Pantoprazole Sodium (Protonix Tab) 40 mg BID PO 02/08/17 21:00 03/10/17 20:59 02/09/17 07:59 40 MG Amlodipine Besylate (Norvasc Tab) 2.5 mg DAILY PO 02/09/17 09:00 03/11/17 08:59 02/09/17 08:00 2.5 MG Aspirin (Ecotrin Tab) 81 mg QAM PO 02/09/17 09:00 03/11/17 08:59 02/09/17 08:00 81 MG Atorvastatin Calcium (Lipitor Tab) 20 mg QPM PO 02/08/17 21:00 03/10/17 20:59 02/08/17 21:27 20 MG Budesonide/ Formoterol Fumarate (Symbicort 160/ 4.5 Inh) 2 puffs BID INH 02/08/17 21:00 03/10/17 20:59 02/09/17 07:57 2 PUFFS Clopidogrel Bisulfate (plAVix TAB) 75 mg QAM PO 02/09/17 09:00 03/11/17 08:59 02/09/17 07:59 75 MG Fentanyl (Duragesic Patch) 25 mcg Q72H TD 02/11/17 09:00 02/25/17 08:59 Folic Acid (Folvite Tab) 1 mg QAM PO 02/09/17 09:00 03/11/17 08:59 02/09/17 08:00 1 MG Losartan Potassium (coZAAR TAB) 100 mg DAILY PO 02/09/17 09:00 03/11/17 08:59 02/09/17 08:00 100 MG Metoprolol Tartrate (Lopressor Tab) 100 mg BID PO 02/08/17 21:00 03/10/17 20:59 02/09/17 07:59 100 MG Raltegravir (Isentress Tab) 400 mg BID PO 02/08/17 21:00 03/10/17 20:59 02/09/17 08:01 400 MG Non-Formulary Medication (Darunavir Ethanolate (Prezista)) 600 mg BID PO 02/08/17 21:00 03/10/17 20:59 UNV Ritonavir (Norvir) 100 BID PO 02/08/17 21:00 03/10/17 20:59 02/09/17 08:02 100 Albuterol/ Ipratropium (Duoneb) 3 ml Q4R PRN INH 02/08/17 19:00 03/10/17 18:59 02/08/17 20:36 3 ML Sodium Chloride 1,000 ml @ 100 mls/hr Q10H IV 02/08/17 19:00 03/10/17 18:59 02/09/17 07:57 100 MLS/HR Vancomycin HCl 1000 mg/Sodium Chloride 270 ml @ 125 mls/hr Q8@0400,1200,2000 IV 02/09/17 04:00 02/16/17 03:59 02/09/17 04:24 125 MLS/HR Fentanyl (Duragesic Patch) 12 mcg Q72H TD 02/11/17 09:00 02/25/17 08:59 Miscellaneous (Fentanyl Patch Remove & Waste) 1 ea Q3D@0859 N/A 02/11/17 08:59 03/13/17 08:58 Miscellaneous Information (Check Fentanyl Patch Placement) 1 ea QS N/A 02/09/17 00:00 03/11/17 00:00 02/09/17 08:30 1 EA Miscellaneous (Fentanyl Patch Remove & Waste) 1 ea Q3D@0859 N/A 02/11/17 08:59 03/13/17 08:58 Miscellaneous Information (Check Fentanyl Patch Placement) 1 ea QS N/A 02/09/17 00:00 03/11/17 00:00 02/09/17 07:58 1 EA Oxycodone HCl (Roxicodone Immediate Rel Tab) 5 mg TID PRN PO 02/08/17 21:30 02/22/17 21:29 02/09/17 08:07 5 MG Lidocaine (Lidoderm Patch 5%) 1 patch QAM TD 02/09/17 09:00 03/11/17 08:59 02/09/17 08:29 1 PATCH Miscellaneous (Remove Lidoderm Patch) 1 ea DAILY@21 N/A 02/09/17 21:00 03/11/17 20:59 Amitriptyline HCl (Elavil Tab) 50 mg BID PRN PO 02/09/17 21:00 03/11/17 09:14 Review of Systems All systems were reviewed and are negative except as per HPI Physical Exam Date Time Temp Pulse Resp B/P (MAP) Pulse Ox O2 Delivery O2 Flow Rate FiO2 02/09/17 08:00 Room Air 02/09/17 07:47 36.5 81 20 136/83 (100) 92 Room Air 02/09/17 04:00 Room Air 02/09/17 03:53 36.6 80 17 118/69 (85) 95 Room Air 02/09/17 00:07 36.6 85 17 111/71 (84) 95 Room Air 02/08/17 23:59 Room Air 02/08/17 20:36 88 18 96 Room Air 02/08/17 20:24 36.4 97 20 159/99 97 Room Air 02/08/17 19:58 37.3 102 18 148/94 99 02/08/17 19:53 102 18 148/94 99 02/08/17 18:41 105 100 02/08/17 17:31 145/89 02/08/17 17:01 131/80 02/08/17 16:59 117/69 02/08/17 16:59 108 18 117/69 96 02/08/17 16:11 111 17 02/08/17 16:01 119/80 02/08/17 15:41 110 20 02/08/17 15:31 139/82 02/08/17 15:11 112 17 93 02/08/17 15:06 113 17 93 02/08/17 15:01 115/93 02/08/17 14:36 114 98 02/08/17 14:31 125/69 02/08/17 14:06 113 21 95 02/08/17 14:01 140/92 02/08/17 13:48 112 152/97 117 138/93 120 125/83 02/08/17 13:43 97 Room Air 02/08/17 13:43 97 Room Air 02/08/17 13:43 37.3 119 18 156/97 97 Room Air 02/08/17 13:36 114 19 99 02/08/17 13:32 125/83 02/08/17 13:30 152/97 02/08/17 13:21 117 02/08/17 13:14 156/97 General Appearance: WD/WN, no apparent distress Head: normocephalic, atraumatic Eyes: normal inspection, EOMI, sclerae normal ENT: normal ENT inspection, hearing grossly normal, pharynx normal Neck: supple, no adenopathy, thyroid normal, trachea midline Respiratory/Chest: chest non-tender, lungs clear, normal breath sounds, no respiratory distress Cardiovascular: regular rate, rhythm (Hand), no gallop, no murmur Abdomen/GI: normal bowel sounds, non tender, soft, no organomegaly Back: normal inspection, no CVA tenderness Extremities/Musculoskelatal: no calf tenderness, non-tender Neurologic/Psych: alert, oriented x 3 Skin: normal color, warm/dry, no rash Lymphatic: no adenopathy Laboratory Results Date/Time Source Procedure Growth Status 02/08/17 18:41 Blood Blood Culture Pending Received 02/08/17 18:29 Blood Blood Culture Pending Received Last 24 Hours Test 02/08/17 13:34 02/08/17 14:29 02/08/17 15:33 02/08/17 18:41 White Blood Count 12.95 K/uL Red Blood Count 4.67 M/uL Hemoglobin 13.8 g/dL Hematocrit 39.9 % Mean Corpuscular Volume 85.4 fL Mean Corpuscular Hemoglobin 29.6 pg Mean Corpuscular Hemoglobin Concent 34.6 g/dl RDW Standard Deviation 40.8 fL RDW Coefficient of Variation 13.1 % Platelet Count 234 K/uL Mean Platelet Volume 9.8 fL Sodium Level 139 mmol/L Potassium Level mmol/L 3.8 mmol/L Chloride Level 106 mmol/L Carbon Dioxide Level 25 mmol/L Anion Gap 8.0 mmol/L Blood Urea Nitrogen 9 mg/dl Creatinine 1.00 mg/dl Est Creatinine Clear Calc Drug Dose 93.8 ml/min Estimated GFR () 99.2 Estimated GFR (Non- 85.5 BUN/Creatinine Ratio 9.4 Random Glucose 120 mg/dl Calcium Level 9.2 mg/dl Magnesium Level mg/dl 2.0 mg/dl Total Bilirubin 0.3 mg/dl Aspartate Amino Transf (AST/SGOT) U/L 37 U/L Alanine Aminotransferase (ALT/SGPT) 55 U/L Alkaline Phosphatase 118 U/L Total Creatine Kinase U/L 189 U/L Creatine Kinase MB 3.1 ng/ml Creatine Kinase MB Ratio Troponin I < 0.015 ng/ml Total Protein 7.5 gm/dl Albumin 3.9 gm/dl Globulin 3.6 gm/dl Albumin/Globulin Ratio 1.1 Bedside Prothrombin Time INR 1.0 Lactic Acid Level 3.5 mmol/L Test 02/08/17 23:56 02/09/17 06:30 Lactic Acid Level 0.7 mmol/L White Blood Count 6.42 K/uL Red Blood Count 4.13 M/uL Hemoglobin 12.0 g/dL Hematocrit 35.7 % Mean Corpuscular Volume 86.4 fL Mean Corpuscular Hemoglobin 29.1 pg Mean Corpuscular Hemoglobin Concent 33.6 g/dl RDW Standard Deviation 41.6 fL RDW Coefficient of Variation 13.1 % Platelet Count 219 K/uL Mean Platelet Volume 9.5 fL Sodium Level 140 mmol/L Potassium Level 4.0 mmol/L Chloride Level 109 mmol/L Carbon Dioxide Level 26 mmol/L Anion Gap 5.0 mmol/L Blood Urea Nitrogen 9 mg/dl Creatinine 0.96 mg/dl Est Creatinine Clear Calc Drug Dose 97.7 ml/min Estimated GFR () 104.2 Estimated GFR (Non- 89.9 BUN/Creatinine Ratio 9.5 Random Glucose 106 mg/dl Calcium Level 8.6 mg/dl Patient Name: CHERIE CHENG Unit Number: [id number] Dictated: 02/08/[id number] Transcribed: 02/08/171649 Printed Date/Time: [~ rep prt dt]/[~ rep prt tm] [~ rep ct labl] - [~ rep ct ivnm] [facility] [place] [address] Dictated: 02/08/[id number] Transcribed: 02/08/171649 Printed Date/Time: [~ rep prt dt]/[~ rep prt tm] [~ rep ct labl] - [~ rep ct ivnm] [~ rep ct add3]] CT ANGIOGRAPHY OF THE CHEST, PULMONARY EMBOLUS PROTOCOL CLINICAL HISTORY: Chest pain. COMPARISON STUDY: Chest CT November 17, 2016. TECHNIQUE: Following IV administration of 95 mL of Optiray-320, helical axial images of the chest were obtained utilizing the pulmonary embolus protocol. Maximal intensity projections and sagittal and coronal reformats were viewed on an independent 3D workstation. IV contrast was administered without complication. A dose lowering technique was utilized adhering to the principles of ALARA. CT DOSE: 387.69 mGy.cm FINDINGS: No pulmonary emboli are identified. The heart is mildly enlarged. There is moderate coronary artery calcification. There is no evidence of thoracic aortic dissection. Mild dilatation of the ascending aorta, measuring 4.2 cm at the level of the main pulmonary artery is similar to prior studies. No enlarged thoracic lymph nodes are present. No pneumothorax or pleural effusion is present. Groundglass opacities reflect atelectasis. There has been interval development of an irregular 9 mm right upper lobe nodule shown image 165 of 281. The multifocal right upper lobe airspace opacity shown on exam of November 17, 2016 have resolved. Bony thorax is unremarkable. There is fatty infiltration of the liver. IMPRESSION: 1. No pulmonary emboli identified. 2. Interval development of a 9 mm irregular nodule with mild adjacent groundglass opacity within the right upper lobe. This suggests a mild infectious etiology. A follow-up chest CT in 3 months to ensure resolution is recommended. 2. Mild cardiomegaly and mild dilatation of the ascending aorta. No dissection. Electronically signed by: Gabo Moore M.D. 02/08/2017 4:59 PM Dictated Date/Time: 02/08/2017 4:50 PM The status of this report is Signed. Draft = Not yet reviewed or approved by Radiologist. Signed = Reviewed and approved by Radiologist. <AttendingPhy></AttendingPhy> <FamilyPhy>Guillermo Burdick M.D.</FamilyPhy> < PrimaryPhy>Guillermo Burdick M.D.</PrimaryPhy> <UnitNumber>[id number]</UnitNumber> < VisitNumber>[id number]</VisitNumber> <PatientName>PROSPERCHERIE A</PatientName > <DateOfBirth>1965</DateOfBirth> <Location>[facility]</Location> <ServiceDate> 02/08/17</ServiceDate> <MNE>ESINDI</MNE> <OrderingPhy>Nico Johnson M.D.</ OrderingPhy> <OrderingPhyMNE>f rep ord dr silva</OrderingPhyMNE> <DictatingPhyMNE> f rep dict dr silva</DictatingPhyMNE> <CCListMNE>f rep ct chirage</CCListMNE> < AdmittingPhyMNE>f pt admit dr silva</AdmittingPhyMNE> <AttendingPhyMNE>f pt attend dr silva</AttendingPhyMNE> <ConsultingPhyMNE>f pt consult dr silva</ConsultingPhyMNE> <FamilyPhyMNE>f pt fam dr silva</FamilyPhyMNE> <OtherPhyMNE>f pt other dr silva</OtherPhyMNE> < PrimaryPhyMNE>f pt prim care dr silva</PrimaryPhyMNE> <ReferringPhyMNE>f pt referring dr silva</ReferringPhyMNE> Assessment & Plan 52-year-old male with longstanding HIV infection, currently well controlled on current anti-retroviral regimen, who now presents after syncopal episode with possible developing right upper lobe pneumonia. Clinically appears to be responding to present therapy, so would continue patient on current antibiotics. Likely can transition soon to oral therapy. Would continue his present HIV medications. Will follow.
[2017-02-09] MEDS ORDERED: VANCOMYCIN TROUGH ONE (19:30)
[2017-02-09] MEDS ORDERED: LEVOFLOXACIN / D5W 750 MG in PREMIXED IN D5W 150 ML IV SCH (20:00)
[2017-02-09] MEDS: ATORVASTATIN 20 MG TAB PO SCH (21:16)
[2017-02-09] MEDS: ENOXAPARIN 40 MG/0.4 ML SYR SC SCH (21:19)
[2017-02-09] MEDS: AMITRIPTYLINE HCL 50 MG TAB PO PRN (22:32)
--- NOTE | 2017-02-09 23:10 | Pharmacy Progress Note ---
Pharmacy Abx Dose Short Note Date of Service Feb 09, 2017. Assessment & Plan Assessment 52 year old male receiving vancomycin for treatment of HAP Day # 07/21 of antimicrobial therapy. Plan Vancomycin * Trough level of 12.3 mcg/mL is subtherapeutic (this level was drawn approximately 2 hours after trough should have been drawn -entered wrong by pharmacy. HOWEVER, nurse hung the vancomycin at 2130 and the IV line malfunctioned. Vancomycin did not hang until 2300. I suspect that the true trough is therapeutic) * Continue dose of 1000 mg IV every 8 hours with adjustments in time to accommodate dose at 2300 * Goal trough level for pneumonia : 15 to 20 mcg/mL * Trough ordered for: 02/10/17 prior to 1400 dose Pharmacy will continue to follow and will adjust dose/frequency as necessary. Thank you.
[2017-02-10] MEDS: CHECK FENTANYL PATCH PLACEMENT SCH ×4 (00:13→07:39)
[2017-02-10] MEDS: SODIUM CHLORIDE 0.9% 1000ML 1,000 ML IV SCH (01:37)
[2017-02-10 04:09] VITALS: BP 117/69; PULSE 78; TEMP 36.6; O2SAT 96
[2017-02-10] MEDS: AZTREONAM IV 2,000 MG in DEXTROSE 5% 100ML 100 ML IV SCH (05:32)
[2017-02-10] MEDS ORDERED: VANCOMYCIN INJ 1,000 MG in SODIUM CHLORIDE 0.9% 250ML 250 ML IV SCH (06:00)
[2017-02-10 07:23] VITALS: BP_SYST 156; BP_SYST 160; BP_DIAS 92; BP_DIAS 95; BP_DIAS 99; PULSE 73; TEMP 36.6; O2SAT 97
[2017-02-10] MEDS: BUDESONIDE/FORMOTEROL FUMARATE 160/4.5 60 PUFFS/INHALER INH SCH (07:40)
[2017-02-10] MEDS: OXYCODONE HCL IR 5 MG TAB (IMMEDIATE RELEASE) PO PRN (07:40)
[2017-02-10] MEDS: AMLODIPINE BESYLATE 5 MG TAB PO SCH (07:41)
[2017-02-10] MEDS: LOSARTAN POTASSIUM 50 MG TAB PO SCH (07:41)
[2017-02-10] MEDS: CLOPIDOGREL BISULFATE 75 MG TAB PO SCH (07:41)
[2017-02-10] MEDS: METOPROLOL TARTRATE 100 MG TAB PO SCH (07:42)
[2017-02-10] MEDS: PANTOprazole SOD 40 MG TAB PO SCH (07:42)
[2017-02-10] MEDS: LIDODERM (LIDOCAINE) PATCH 5% TD SCH (07:43)
[2017-02-10] MEDS: AMITRIPTYLINE HCL 50 MG TAB PO PRN (07:44)
[2017-02-10] MEDS: DARUNAVIR ETHANOLATE 600 MG TAB PO SCH (07:44)
[2017-02-10] MEDS: ASPIRIN 81 MG ECTAB PO SCH (07:44)
[2017-02-10] MEDS: RITONAVIR 100 MG TAB PO SCH (07:44)
[2017-02-10] MEDS: RALTEGRAVIR POTASSIUM TAB 400 MG TAB PO SCH (07:45)
[2017-02-10] MEDS ORDERED: FENTANYL 25 MCG/HR TDSY TD SCH ×2 (09:15→10:15)
--- NOTE | 2017-02-10 09:16 | Progress Note ---
Subjective Date of Service: Feb 10, 2017. Subjective Pt evaluation today including: conversation w/ patient, physical exam, lab review, review of studies, review of inpatient medication list Saw/examined the patient in room 207 He's feeling well, no problems to note Problem List Medical Problems: (1) Abdominal pain Status: Acute (2) AIDS (acquired immunodeficiency syndrome), CD4 >200 and <500 Status: Acute (3) Anterior chest wall pain Status: Acute (4) Chest pain, rule out acute myocardial infarction Status: Acute (5) Chills Status: Acute (6) Dehydration Status: Acute (7) Dehydration Status: Acute (8) Diarrhea Status: Acute (9) Diarrhea Status: Acute (10) Gastroenteritis Status: Acute (11) Headache Status: Acute (12) Hypokalemia Status: Acute (13) Immunocompromised Status: Acute (14) Involuntary movements Status: Acute (15) Left sided chest pain Status: Acute (16) Left sided chest pain Status: Acute (17) Paresthesia Status: Acute (18) Pneumonia Status: Acute (19) Precordial chest pain Status: Acute (20) Right leg weakness Status: Acute (21) Syncope Status: Acute (22) Syncope Status: Acute (23) TIA (transient ischemic attack) Status: Acute Review of Systems Constitutional: No fever, No chills, No weakness Respiratory: No cough, No sputum, No shortness of breath Cardiac: No chest pain Abdomen: No nausea, No vomiting Neurologic: No vertigo, No balance problems Medications Current Inpatient Medications Medications (Trade) Dose Ordered Sig/Josh Route Start Time Stop Time Status Last Admin Dose Admin Ioversol (Optiray 320) 95 ml UD PRN IV 02/08/17 17:00 02/12/17 16:59 Enoxaparin Sodium (Lovenox Inj) 40 mg Q24H SC 02/08/17 21:00 03/10/17 20:59 02/09/17 21:19 40 MG Acetaminophen (Tylenol Tab) 650 mg Q4H PRN PO 02/08/17 18:15 03/10/17 18:14 Ondansetron HCl (Zofran Inj) 4 mg Q6H PRN IV 02/08/17 18:15 03/10/17 18:14 Vancomycin HCl (Consult) 1 ea UD PRN N/A 02/08/17 18:23 03/10/17 18:22 Aztreonam 2000 mg/ Dextrose 110 ml @ 100 mls/hr Q8H IV 02/08/17 22:00 02/15/17 18:14 02/10/17 05:32 100 MLS/HR Levofloxacin 750 mg/Prmx 150 ml @ 100 mls/hr Q24H IV 02/09/17 20:00 02/15/17 19:59 02/09/17 21:24 100 MLS/HR Pantoprazole Sodium (Protonix Tab) 40 mg BID PO 02/08/17 21:00 03/10/17 20:59 02/10/17 07:42 40 MG Amlodipine Besylate (Norvasc Tab) 2.5 mg DAILY PO 02/09/17 09:00 03/11/17 08:59 02/10/17 07:41 2.5 MG Aspirin (Ecotrin Tab) 81 mg QAM PO 02/09/17 09:00 03/11/17 08:59 02/10/17 07:44 81 MG Atorvastatin Calcium (Lipitor Tab) 20 mg QPM PO 02/08/17 21:00 03/10/17 20:59 02/09/17 21:16 20 MG Budesonide/ Formoterol Fumarate (Symbicort 160/ 4.5 Inh) 2 puffs BID INH 02/08/17 21:00 03/10/17 20:59 02/10/17 07:40 2 PUFFS Clopidogrel Bisulfate (plAVix TAB) 75 mg QAM PO 02/09/17 09:00 03/11/17 08:59 02/10/17 07:41 75 MG Fentanyl (Duragesic Patch) 25 mcg Q72H TD 02/11/17 09:00 02/25/17 08:59 Folic Acid (Folvite Tab) 1 mg QAM PO 02/09/17 09:00 03/11/17 08:59 02/10/17 07:42 1 MG Losartan Potassium (coZAAR TAB) 100 mg DAILY PO 02/09/17 09:00 03/11/17 08:59 02/10/17 07:41 100 MG Metoprolol Tartrate (Lopressor Tab) 100 mg BID PO 02/08/17 21:00 03/10/17 20:59 02/10/17 07:42 100 MG Raltegravir (Isentress Tab) 400 mg BID PO 02/08/17 21:00 03/10/17 20:59 02/10/17 07:45 400 MG Non-Formulary Medication (Darunavir Ethanolate (Prezista)) 600 mg BID PO 02/08/17 21:00 03/10/17 20:59 UNV Ritonavir (Norvir) 100 BID PO 02/08/17 21:00 03/10/17 20:59 02/10/17 07:44 100 Albuterol/ Ipratropium (Duoneb) 3 ml Q4R PRN INH 02/08/17 19:00 03/10/17 18:59 02/08/17 20:36 3 ML Sodium Chloride 1,000 ml @ 100 mls/hr Q10H IV 02/08/17 19:00 03/10/17 18:59 02/10/17 01:37 100 MLS/HR Fentanyl (Duragesic Patch) 12 mcg Q72H TD 02/11/17 09:00 02/25/17 08:59 Miscellaneous (Fentanyl Patch Remove & Waste) 1 ea Q3D@0859 N/A 02/11/17 08:59 03/13/17 08:58 Miscellaneous Information (Check Fentanyl Patch Placement) 1 ea QS N/A 02/09/17 00:00 03/11/17 00:00 02/10/17 07:39 1 EA Miscellaneous (Fentanyl Patch Remove & Waste) 1 ea Q3D@0859 N/A 02/11/17 08:59 03/13/17 08:58 Miscellaneous Information (Check Fentanyl Patch Placement) 1 ea QS N/A 02/09/17 00:00 03/11/17 00:00 02/10/17 07:39 1 EA Oxycodone HCl (Roxicodone Immediate Rel Tab) 5 mg TID PRN PO 02/08/17 21:30 02/22/17 21:29 02/10/17 07:40 5 MG Lidocaine (Lidoderm Patch 5%) 1 patch QAM TD 02/09/17 09:00 03/11/17 08:59 02/10/17 07:43 1 PATCH Miscellaneous (Remove Lidoderm Patch) 1 ea DAILY@21 N/A 02/09/17 21:00 03/11/17 20:59 02/09/17 21:14 1 EA Amitriptyline HCl (Elavil Tab) 50 mg BID PRN PO 02/09/17 21:00 03/11/17 09:14 02/10/17 07:44 50 MG Vancomycin HCl 1000 mg/Sodium Chloride 270 ml @ 125 mls/hr Q8H IV 02/10/17 06:00 02/15/17 23:59 02/10/17 05:32 125 MLS/HR Objective Vital Signs Date Time Temp Pulse Resp B/P (MAP) Pulse Ox O2 Delivery O2 Flow Rate FiO2 02/10/17 07:23 36.6 73 20 160/92 (114) 97 Room Air 156/95 (115) 156/99 (118) 02/10/17 04:09 36.6 78 18 117/69 (85) 96 Room Air 02/10/17 04:00 Room Air 02/10/17 00:01 Room Air 02/09/17 23:44 80 146/82 (103) 02/09/17 23:43 75 130/89 (103) 02/09/17 23:41 36.7 77 20 135/80 (98) 95 Room Air 02/09/17 21:20 96 146/64 (91) 02/09/17 20:37 36.4 92 16 124/66 (85) 97 Room Air 02/09/17 19:30 Room Air 02/09/17 16:03 80 18 109/91 (97) 97 Room Air 02/09/17 16:01 79 18 117/81 (93) 96 Room Air 02/09/17 16:00 Room Air 02/09/17 15:59 36.8 81 16 124/77 (93) 95 Room Air 02/09/17 12:00 Room Air 02/09/17 11:50 36.3 73 20 121/74 (90) 97 Room Air 127/81 (96) 148/83 (104) Physical Exam General Appearance: no apparent distress Respiratory/Chest: lungs clear, normal breath sounds, no respiratory distress, no accessory muscle use Cardiovascular: regular rate, rhythm, no edema, no murmur Abdomen: normal bowel sounds, non tender, soft Neurologic/Psychiatric: no motor/sensory deficits, alert, normal mood/affect Laboratory Results Last 24 Hours Test 02/09/17 21:50 Vancomycin Level Trough 12.3 mcg/ml Assessment and Plan This is a 52 year old male with a PMH of HIV and ongoing HAART therapy, hx. of CVA and carotid artery stenosis, hx. of rectal CA s/p surgical resection, hx. of brain AVM presents with syncope and pneumonia Pneumonia - improving 02/10 patient is doing well, no complaints, afebrile, leukocytosis resolved will d/c home with Levaquin; due to immunocompromised state and recurrent pneumonia, will be on a total of 10 days of abx. repeat CT in 3 months outpatient PCP and ID follow-up 02/09 patient is doing well CT showed an irregular nodule in the R upper lobe, possibly mildly infectious WBC and lactic acidosis have both been resolved for now, continue regimen of Vanco, Aztreonam, Levaquin appreciate pulm input - likely d/c in AM on Levaquin ID consultation pending secondary to recurrent pneumonia and immunocompromised state Syncope - resolved likely from hypovolemia lactic acid was elevated fluid resuscitated denies any dizziness today HIV ongoing HAART therapy which we can continue ID follow-up for February with Dr. Blount Chronic Pain continue home medications HTN hold diuretics, continue other anti-hypertensives Hx. of CVA continue aspirin and Plavix DVT ppx Lovenox FULL CODE
[2017-02-10] MEDS ORDERED: LEVO1TAB35 PO (09:18)
--- NOTE | 2017-02-10 09:20 | Discharge Instructions ---
Discharge Instructions Date of Service Feb 10, 2017. Admission Reason for Admission: Pneumonia, Syncope Discharge Discharge Diagnosis / Problem: Pneumonia, HIV, immunocompromised state, Syncope Discharge Goals Goal(s): Decrease discomfort, Improve function, Diagnostic testing, Therapeutic intervention Activity Recommendations Activity Limitations: resume your previous activity . Instructions / Follow-Up Instructions / Follow-Up Please follow-up with Dr. Burdick on Wednesday, February 17 at 1:05PM * You will be discharged with a 7 day supply of Levaquin (antibiotics) * You should get a repeat CT scan of the chest in 3 months * Please follow-up with Infectious Disease for HIV therapy (Dr. Blount) Current Hospital Diet Patient's current hospital diet: AHA Diet (Heart Healthy) Discharge Diet Recommended Diet: AHA Diet (Heart Healthy) Pending Studies Studies pending at discharge: no Medical Emergencies . Who to Call and When: Medical Emergencies: If at any time you feel your situation is an emergency, please call 911 immediately. . Non-Emergent Contact Non-Emergency issues call your: Primary Care Provider . . "Provider Documentation" section prepared by Yumiko Pritchard. . VTE Core Measure Inpt VTE Proph given/why not?: Enoxaparin (Lovenox)SQ
--- NOTE | 2017-02-10 09:21 | Discharge Summary ---
Discharge Summary Date of Service Feb 10, 2017. Discharge Summary Admission Date: Feb 08, 2017 at 18:03 Discharge Date: Feb 10, 2017 Discharge Disposition: Home Principal Diagnosis: Pneumonia HIV Syncope Medication Reconciliation New Medications: Levofloxacin (Levaquin) 750 Mg Tab 750 MG PO DAILY for 7 Days, #7 TAB Continued Medications: Albuterol Hfa (Ventolin Hfa) 200 Puffs/35973 Mcg Aers 2 PUFFS INH Q6H PRN for Shortness of Breath, INHALER Amitriptyline HCl (Amitriptyline HCl) 50 Mg Tab 50-100 MG PO HS PRN for Sleep Amlodipine (Norvasc) 2.5 Mg Tab 2.5 MG PO DAILY, TAB Aspirin Enteric Coated (Ecotrin Or Generic) 81 Mg Tab 81 MG PO QAM Atorvastatin (Atorvastatin Calcium) 20 Mg Tab 20 MG PO QPM Budesonide/Formoterol Fumarate (Symbicort 160/4.5 Inhaler) 120 Puffs/ Aero 2 PUFFS INH BID, INHALER Chlorthalidone (Chlorthalidone) 25 Mg Tab 25 MG PO QAM Clopidogrel Bisulfate (Clopidogrel) 75 Mg Tab 75 MG PO QAM Darunavir Ethanolate (Prezista) 600 Mg Tab 600 MG PO BID TAKE THIS MEDICATION WITH FOOD Fentanyl (Fentanyl) 25 Mcg Tdsy 25 MCG TOP CQ72HR Fentanyl (Fentanyl) 12 Mcg Tdsy 12 MCG TOP CQ72HR Folic Acid (Folic Acid) 1 Mg Tab 1 MG PO QAM Furosemide (Furosemide) 20 Mg Tab 20 MG PO DAILY PRN for Edema Ipratropium-Albuterol (Duoneb) 3 Ml Nebu 1 TREATMENT INH Q4H PRN for SOB/Wheezing, INHA Losartan Potassium (Cozaar) 100 Mg Tab 100 MG PO DAILY Metoprolol Tartrate (Lopressor) (Lopressor) 100 Mg Tab 100 MG PO BID Ondansetron (Ondansetron HCl) 4 Mg Tab 4 MG PO Q8 PRN for Nausea Oxycodone HCl (Oxycodone HCl) 5 Mg Tab 5 MG PO TID PRN for Pain Raltegravir Potassium (Isentress) 400 Mg Tab 400 MG PO BID, TAB Ritonavir (Norvir) 100 Mg Tab 100 MG PO BID Admission Information HPI (per Admitting provider): 52 year old male who presents to the ER after a syncopal event. Patient reports that he was in the process of changing his Fentanyl patch and when he turned around he passed out and fell to the ground. He denies any preceding lightheadedness, dizziness, chest pain, or shortness of breath. He reports he hit his head and also the left side of his body when he fell. He reports that he has had a productive cough for green sputum, chills, and low grade fevers of the past 3 days. He denies abdominal pain, nausea, vomiting, or diarrhea. He does report severe reflux symptoms the past few months. No urinary symptoms. In the ER, CT chest is negative for PE but is showing an interval development of a 9 mm irregular nodule with mild adjacent groundglass opacity within the right upper lobe that suggests a mild infectious etiology. He was tachycardic on arrival that is improving with IVF. WBC 12K. Orthostatic BPs were positive. He was treated with IVF and IV Levaquin. Physical Exam (per Admitting): General Appearance: no apparent distress Head: normocephalic Eyes: normal inspection ENT: hearing grossly normal Neck: supple, no JVD Respiratory/Chest: no respiratory distress, + decreased breath sounds Cardiovascular: no edema, normal peripheral pulses, + tachycardia (regular rhythm) Abdomen/GI: normal bowel sounds, non tender, soft Extremities/Musculoskelatal: normal inspection, no calf tenderness Neurologic/Psych: no motor/sensory deficits, alert, normal mood/affect, oriented x 3 Skin: normal color, warm/dry Hospital Course This is a 52 year old male with a PMH of HIV and ongoing HAART therapy, hx. of CVA and carotid artery stenosis, hx. of rectal CA s/p surgical resection, hx. of brain AVM presents with syncope and pneumonia Pneumonia - improving 02/10 patient is doing well, no complaints, afebrile, leukocytosis resolved will d/c home with Levaquin; due to immunocompromised state and recurrent pneumonia, will be on a total of 10 days of abx. repeat CT in 3 months outpatient PCP and ID follow-up 02/09 patient is doing well CT showed an irregular nodule in the R upper lobe, possibly mildly infectious WBC and lactic acidosis have both been resolved for now, continue regimen of Vanco, Aztreonam, Levaquin appreciate pulm input - likely d/c in AM on Levaquin ID consultation pending secondary to recurrent pneumonia and immunocompromised state Syncope - resolved likely from hypovolemia lactic acid was elevated fluid resuscitated denies any dizziness today HIV ongoing HAART therapy which we can continue ID follow-up for February with Dr. Blount Chronic Pain continue home medications HTN hold diuretics, continue other anti-hypertensives Hx. of CVA continue aspirin and Plavix DVT ppx Lovenox FULL CODE Total time spent on discharge = 40 minutes This includes examination of the patient, discharge planning, medication reconciliation, and communication with other providers. Discharge Instructions Please follow-up with Dr. Burdick on February 17 at 1:05PM * You will be discharged with a 7 day supply of Levaquin (antibiotics) * You should get a repeat CT scan of the chest in 3 months * Please follow-up with Infectious Disease for HIV therapy (Dr. Blount)
[2017-02-10] MEDS ORDERED: NURSING VERBAL MED ORDER ONE (09:45)
[2017-02-10] MEDS ORDERED: FENTANYL PATCH REMOVE & WASTE SCH ×2 (10:14)
[2017-02-10] MEDS ORDERED: FENTANYL 12 MCG/HR TDSY TD SCH (10:15)
[2017-02-10 10:48] VITALS: BP 156/99; PULSE 73; TEMP 36.6; O2SAT 97
[2017-02-10] MEDS ORDERED: VANCOMYCIN TROUGH SCH (13:30)
[2017-02-10] MEDS ORDERED: CHECK FENTANYL PATCH PLACEMENT SCH (16:00)
[2017-02-11] MEDS ORDERED: FENTANYL PATCH REMOVE & WASTE SCH ×2 (08:59)
[2017-02-11] MEDS ORDERED: FENTANYL 12 MCG/HR TDSY TD SCH (09:00)
[2017-02-11] MEDS ORDERED: FENTANYL 25 MCG/HR TDSY TD SCH (09:00)
[2017-02-13] MEDS ORDERED: FENTANYL PATCH REMOVE & WASTE SCH (09:15)
== END 2017-02-10 11:22 | disposition home or self-care (01) | DRG 190 ==
LOC: EDBD 13:06 → C.EDB 13:08 → C.2E 18:03 → ENRESERV 19:04
PROVIDERS: ADMIT Hospitalist; ATTEND Family Medicine
DX: J44.0 Chronic obstructive pulmonary disease with (acute) lower respiratory infection (principal); J18.9 Pneumonia, unspecified organism; B20 Human immunodeficiency virus [HIV] disease; R55 Syncope and collapse; I10 Essential (primary) hypertension; G89.29 Other chronic pain; F17.200 Nicotine dependence, unspecified, uncomplicated; Z87.01 Personal history of pneumonia (recurrent); Z86.73 Personal history of transient ischemic attack (TIA), and cerebral infarction without residual deficits; Z79.02 Long term (current) use of antithrombotics/antiplatelets; Z79.82 Long term (current) use of aspirin; Z79.891 Long term (current) use of opiate analgesic; Z79.899 Other long term (current) drug therapy; Z82.49 Family history of ischemic heart disease and other diseases of the circulatory system; Z83.3 Family history of diabetes mellitus; Z80.1 Family history of malignant neoplasm of trachea, bronchus and lung; Z88.0 Allergy status to penicillin; Z88.1 Allergy status to other antibiotic agents; Z88.2 Allergy status to sulfonamides; Z88.6 Allergy status to analgesic agent; Z88.8 Allergy status to other drugs, medicaments and biological substances

== ENCOUNTER → 2017-10-20 | Outpatient (CLI) | payer OTHER ==
[~2017-10-20] MED LIST changes: +AMLO2.5T PO; +ASPI-319 PO; -ASPI81TA21 PO; -LPT/20 PO; +LPT20 PO
[2017-10-20 13:20] LABS: BASO % 1.2 %; BASO ABS # 0.11 K/uL (0-0.2); EOS % 4.1 %; EOS ABS # 0.37 K/uL (0-0.5); HEMATOCRIT 39.2 % (42-52); HEMOGLOBIN 13.4 g/dL (14.0-18.0); IG# 0.01 K/uL (0.00-0.02); LYMPH % 39.6 %; LYMPH ABS # 3.56 K/uL (1.2-3.4); MEAN CELL VOLUME 82.5 fL (80-100); MEAN CORPUSCULAR HEMOGLOBIN 28.2 pg (25-34); MEAN CORPUSCULAR HGB CONC 34.2 g/dl (32-36); MEAN PLATELET VOLUME 9.6 fL (7.4-10.4); MONO % 8.9 %; NEUT % 46.1 %; NEUT ABS # 4.14 K/uL (1.4-6.5); PLATELET COUNT 304 K/uL (130-400); RED CELL DISTRIBUTION WIDTH CV 15.1 % (11.5-14.5); WHITE BLOOD COUNT 8.99 K/uL (4.8-10.8)
[2017-10-20 13:54] LABS: ALBUMIN 3.6 gm/dl (3.4-5.0); ALKALINE PHOSPHATASE 130 U/L (45-117); ALT/SGPT 19 U/L (12-78); AST/SGOT 13 U/L (15-37); BLOOD UREA NITROGEN 17 mg/dl (7-18); CALCIUM 8.4 mg/dl (8.5-10.1); CARBON DIOXIDE 28 mmol/L (21-32); CREATININE 0.95 mg/dl (0.60-1.40); POTASSIUM 4.3 mmol/L (3.5-5.1); SODIUM 135 mmol/L (136-145); TOTAL PROTEIN 7.3 gm/dl (6.4-8.2)
[2017-10-20 14:22] LABS: GLUCOSE 119 mg/dl (70-99)
== END | disposition home or self-care (01) ==
LOC: C.LABPBG 08:45
PROVIDERS: ATTEND Internal Medicine Infectious Disease
DX: B20 Human immunodeficiency virus [HIV] disease (principal)

== ENCOUNTER 2018-01-24 10:37 | Observation (INO) | payer OTHER ==
[~2018-01-24] VITALS: Ht 185.4 cm; Wt 87.9 kg
[~2018-01-24 10:37] MED LIST changes: -AMLO2.5T PO; +IPRA-64 INH; -IPRASOL4 INH; +OXYC-164 PO; -OXYC-609 PO
[2018-01-24] MEDS ORDERED: SODIUM CHLORIDE 0.9% 1000ML 2,000 ML IV STA (11:10)
[2018-01-24] MEDS ORDERED: ONDANSETRON INJ 2 MG/ML 2 ML VIAL IV STA (11:10)
[2018-01-24] MEDS ORDERED: MoRPHine SULFATE 4 MG/ML 1 ML CARP\\VIAL IV STA (11:10)
[2018-01-24] MEDS: NITROGLYCERIN 0.4 MG SL PER TAB CHARGE SL PRN ×3 (11:21→11:32)
[2018-01-24 11:29] LABS: BASO % 1.1 %; BASO ABS # 0.13 K/uL (0-0.2); EOS % 3.1 %; EOS ABS # 0.36 K/uL (0-0.5); HEMATOCRIT 44.4 % (42-52); HEMOGLOBIN 15.9 g/dL (14.0-18.0); IG# 0.04 K/uL (0.00-0.02); LYMPH % 28.4 %; MEAN CELL VOLUME 80.9 fL (80-100); MEAN CORPUSCULAR HGB CONC 35.8 g/dl (32-36); MEAN PLATELET VOLUME 9.8 fL (7.4-10.4); MONO % 7.4 %; MONO ABS # 0.86 K/uL (0.11-0.59); NEUT % 59.7 %; NEUT ABS # 6.91 K/uL (1.4-6.5); PLATELET COUNT 259 K/uL (130-400); RED CELL DISTRIBUTION WIDTH CV 14.4 % (11.5-14.5); RED CELL DISTRIBUTION WIDTH SD 41.9 fL (36.4-46.3)
--- NOTE | 2018-01-24 11:29 | DIAGNOSTIC IMAGING REPORT ---
CHEST ONE VIEW PORTABLE CLINICAL HISTORY: 53 years-old Male presenting with Chest Pain. TECHNIQUE: Portable upright AP view of the chest was obtained. COMPARISON: 02/08/2017. FINDINGS: Atherosclerosis of the aortic arch. Cardiac silhouette normal in size. No focal opacity. No large effusion or pneumothorax. Osseous structures normal. Upper abdomen normal. IMPRESSION: 1. No acute cardiopulmonary disease. Electronically signed by: Guillermo Winters M.D. 01/24/2018 11:28 AM Dictated Date/Time: 01/24/2018 11:27 AM
[2018-01-24 11:43] LABS: BLOOD UREA NITROGEN 12 mg/dl (7-18); CALCIUM 10.1 mg/dl (8.5-10.1); CARBON DIOXIDE 25 mmol/L (21-32); CKMB 2.5 ng/ml (0.5-3.6); CREATININE 1.08 mg/dl (0.60-1.40); GLUCOSE 111 mg/dl (70-99); POTASSIUM 4.1 mmol/L (3.5-5.1); SODIUM 135 mmol/L (136-145)
[2018-01-24 12:09] VITALS: O2SAT 95; Ht 185.4 cm; Wt 87.9 kg
[2018-01-24 12:57] LABS: INR 0.9 (0.9-1.1); PTT PATIENT 25.4 SECONDS (21.0-31.0)
[2018-01-24] MEDS ORDERED: POLYETHYLENE (MIRALAX) 17 GM PACK PO PRN (13:15)
[2018-01-24] MEDS ORDERED: ACETAMINOPHEN 325 MG TAB PO PRN (13:15)
[2018-01-24] MEDS ORDERED: ONDANSETRON INJ 2 MG/ML 2 ML VIAL IV PRN (13:15)
[2018-01-24] MEDS ORDERED: OXYCODONE HCL IR 5 MG TAB (IMMEDIATE RELEASE) PO STA (13:16)
[2018-01-24] MEDS ORDERED: FLUT0.15 NAE (13:29)
[2018-01-24] MEDS ORDERED: DOCU100C31 PO (13:29)
[2018-01-24] MEDS ORDERED: DRGTP50 TOP (13:29)
[2018-01-24] MEDS ORDERED: DRON10CA PO (13:29)
[2018-01-24] MEDS ORDERED: NZRCR TOP (13:29)
[2018-01-24] MEDS ORDERED: FLUO20CA20 PO (13:29)
[2018-01-24] MEDS ORDERED: AMLO2.5T PO (13:29)
[2018-01-24] MEDS ORDERED: FLUTICASONE PROPIONATE NA SPR 16 GM BTL NAE PRN (13:30)
[2018-01-24] MEDS ORDERED: AMITRIPTYLINE HCL 50 MG TAB PO PRN (13:30)
[2018-01-24] MEDS ORDERED: IV FLUIDS COMPLETED PRN (14:15)
--- NOTE | 2018-01-24 14:38 | ECHOCARDIOGRAM REPORT ---
*NOTICE TO RECEIVING [employer] This information is strictly Confidential and protected under [place] law. [place] law prohibits you from making any further disclosure of this information unless further disclosure is expressly permitted by the written consent of the person to whom it pertains or is authorized by law. A general authorization for the release of medical or other information is not sufficient for this purpose. Hospital accepts no responsibility if the information is made available to any other person, INCLUDING THE PATIENT. Interpretation Summary * Name: CHERIE CHENG Study Date: 01/24/2018 01:39 PM BP: 177/104 mmHg * Patient Location: [facility] HR: 91 * : 1965 (M/d/yyyy) Gender: Male Height: 73 in * Age: 53 yrs Ethnicity: [place] Weight: 193 lb * Ordering Physician: Megan Velasquez * Referring Physician: Self, Referred * Performed By: Lakshmi Hou RDCS * * Reason For Study: CHEST PAIN * BSA: 2.1 m2 * -- Conclusions -- * The left ventricle is normal in size. * There is moderate concentric left ventricular hypertrophy. * Left ventricular systolic function is normal. * The left ventricular wall motion is normal. * Ejection Fraction = 60-65%. * There is no significant valvular disease Procedure Details * A complete two-dimensional transthoracic echocardiogram was performed (2D, M-mode, Doppler and color flow Doppler). Left Ventricle * The left ventricle is normal in size. * There is moderate concentric left ventricular hypertrophy. * Left ventricular systolic function is normal. * Ejection Fraction = 60-65%. * The left ventricular wall motion is normal. Right Ventricle * The right ventricle is normal in size and function. Atria * The left atrial size is normal. * Right atrial size is normal. * No ASD detected; PFO is not assessed. Mitral Valve * The mitral valve is normal. * There is no mitral valve stenosis. * There is trace mitral regurgitation. Tricuspid Valve * The tricuspid valve is normal. * There is no tricuspid stenosis. * There is trace tricuspid regurgitation. Aortic Valve * The aortic valve is trileaflet. * No hemodynamically significant valvular aortic stenosis. * No aortic regurgitation is present. Pulmonic Valve * The pulmonic valve is not well visualized. Great Vessels * The aortic root is normal size. Pericardium/Pleural * There is no pericardial effusion. Great Vessels * Normal inferior vena cava diameter and respiratory variation suggests normal central venous pressure. Left Ventricular Diastolic Function * Grade I diastolic dysfunction, (abnormal relaxation pattern). MMode 2D Measurements and Calculations IVSd 2.1 cm IVSs 2.0 cm LVIDd 3.5 cm LVIDs 2.6 cm LVPWd 1.7 cm LVPWs 2.2 cm IVS/LVPW 1.2 FS 26.4 % EDV(Teich) 50.8 ml ESV(Teich) 24.0 ml EF(Teich) 52.8 % EDV(cubed) 42.8 ml ESV(cubed) 17.1 ml EF(cubed) 60.2 % % IVS thick -3.96 % % LVPW thick 31.0 % LV mass(C)d 291.6 grams LV mass(C)dI 137.6 grams/m\S\2 LV mass(C)s 252.9 grams LV mass(C)sI 119.3 grams/m\S\2 SV(Teich) 26.8 ml SI(Teich) 12.7 ml/m\S\2 SV(cubed) 25.8 ml SI(cubed) 12.2 ml/m\S\2 Ao root diam 4.0 cm Ao root area 12.6 cm\S\2 LA dimension 3.6 cm LA/Ao 0.90 LVAd ap4 32.2 cm\S\2 LVLd ap4 8.7 cm EDV(MOD-sp4) 98.5 ml EDV(sp4-el) 101.5 ml LVAs ap4 19.5 cm\S\2 LVLs ap4 7.5 cm ESV(MOD-sp4) 43.8 ml ESV(sp4-el) 43.1 ml EF(MOD-sp4) 55.6 % EF(sp4-el) 57.5 % LVAd ap2 28.1 cm\S\2 LVLd ap2 8.4 cm EDV(MOD-sp2) 76.9 ml EDV(sp2-el) 79.5 ml LVAs ap2 18.1 cm\S\2 LVLs ap2 7.6 cm ESV(MOD-sp2) 36.4 ml ESV(sp2-el) 36.9 ml EF(MOD-sp2) 52.7 % EF(sp2-el) 53.6 % LVLd %diff -2.98 % EDV(MOD-bp) 88.8 ml LVLs %diff 1.2 % ESV(MOD-bp) 40.1 ml EF(MOD-bp) 54.8 % SV(MOD-sp4) 54.8 ml SI(MOD-sp4) 25.8 ml/m\S\2 SV(MOD-sp2) 40.6 ml SI(MOD-sp2) 19.1 ml/m\S\2 SV(MOD-bp) 48.7 ml SI(MOD-bp) 23.0 ml/m\S\2 SV(sp4-el) 58.4 ml SI(sp4-el) 27.6 ml/m\S\2 SV(sp2-el) 42.6 ml SI(sp2-el) 20.1 ml/m\S\2 Doppler Measurements and Calculations MV E max brenna 62.6 cm/sec MV A max brenna 81.4 cm/sec MV E/A 0.77 MV dec time 0.14 sec Ao V2 max 102.5 cm/sec Ao max PG 4.2 mmHg Ao max PG (full) 1.4 mmHg LV V1 max PG 2.8 mmHg LV V1 max 84.1 cm/sec TR max brenna 214.0 cm/sec
[2018-01-24 14:45] VITALS: BP 211/130; PULSE 92; TEMP 36.8; O2SAT 99
[2018-01-24] MEDS ORDERED: FENTANYL 50 MCG/HR TDSY TD SCH (15:00)
[2018-01-24] MEDS ORDERED: LEVALBUTEROL 1.25MG/0.5ML NEB INH PRN (15:00)
[2018-01-24] MEDS ORDERED: IPRATROPIUM BROMIDE NEB SOLN 0.02% 2.5 ML VIAL INH PRN (15:00)
[2018-01-24] MEDS ORDERED: LEVALBUTEROL/IPRATROPIUM NEB INH PRN (15:00)
[2018-01-24 15:04] VITALS: BP 163/106; PULSE 102; O2SAT 96
[2018-01-24 15:16] VITALS: O2SAT 96
[2018-01-24] MEDS ORDERED: AMLODIPINE BESYLATE 5 MG TAB PO STA (15:20)
[2018-01-24] MEDS: CHECK FENTANYL PATCH PLACEMENT SCH (15:21)
--- NOTE | 2018-01-24 15:52 | EMERGENCY ROOM VISIT NOTE ---
History Report prepared by Brittni: John Rico Under the Supervision of: Dr. Jac Dukes D.O. First contact with patient: 11:02 Chief Complaint: CHEST PAIN Stated Complaint: CHEST TIGHTNESS/ HTN Nursing Triage Summary: pt reports chest tighness started at 0600 this am when he got up to use bathroom. feels sob. has hx of htn, hiv +, "mild heart attack" approx 8 years ago, cartoid artery disease. was given 324 asa po prehospital and 2 nitro helped decreased pain. pt also wonders if pain patch helps to decrease bp. he currently does not have one on. History of Present Illness The patient is a 53 year old male who presents to the Emergency Room with complaints of constant chest tightness beginning this morning at about 06:00. The patient states that he notices an associated pain in his arm. He notes that he currently still is experiencing the chest tightness, but states that it was improved with nitroglycerin and aspirin that he was given in the ambulance. He notes some shortness of breath. He reports experiencing diarrhea for the past couple of days. He also reports that his blood pressure was very high this morning at 281/200 and was still over [address] in [address] ambulance [address] the way to the hospital. The patient notes a history of heart attack that occurred about 7 years ago. He also reports 2 strokes in the past. He states that he has HIV, and his last CD4 count was good. The patient notes that he wears a fentanyl patch for neuropathy. Pt denies headache, change in vision, fevers, nausea, vomiting, pain with urination, and melena. Source of History: patient Onset: 06:00 this morning Position: chest Quality: other ("tightness") Timing: constant Modifying Factors (Relieving): other (nitroglycerin and aspirin) Associated Symptoms: + SOB, + diarrhea Review of Systems See HPI for pertinent positives & negatives. A total of 10 systems reviewed and were otherwise negative. Past Medical & Surgical Medical Problems: (1) Anal dysplasia (2) Anxiety (3) AVM (arteriovenous malformation) brain (4) Carotid stenosis (5) Cerebritis (6) Chest pain (7) COPD (chronic obstructive pulmonary disease) (8) Depression (9) Dyslipidemia (10) Dyspnea (11) History of alcohol abuse (12) History of CVA (cerebrovascular accident) (13) Human immunodeficiency virus infection (14) Hypertension (15) Ischemic stroke (16) Migraine (17) Neuropathic pain of both feet (18) Pneumonia (19) Polyp of colon (20) Syncope (21) TIA (transient ischemic attack) Surgical Problems: (1) History of anal lesion (2) Hx of colonoscopy Family History Diabetes mellitus FATHER MOTHER FH: cancer FATHER (lung CA) Hypertension FATHER Social History Smoking Status: Current Every Day Smoker Alcohol Use: none Marital Status: Housing Status: lives with family Occupation Status: disabled Current/Historical Medications Scheduled Amlodipine (Norvasc), 2.5 MG PO DAILY Aspirin Enteric Coated (Ecotrin Or Generic), 81 MG PO QAM Atorvastatin (Lipitor), 20 MG PO QPM Budesonide/Formoterol Fumarate (Symbicort 160/4.5 Inhaler), 2 PUFFS INH BID Chlorthalidone (Chlorthalidone), 25 MG PO QAM Clopidogrel Bisulfate (Clopidogrel), 75 MG PO QAM Darunavir Ethanolate (Prezista), 600 MG PO BID Docusate Sodium (Docusate Sodium), 1 CAP PO BID Fentanyl (Fentanyl), 1 PATCH TOP Q72 hours Fluoxetine Hcl (Pmdd) (Fluoxetine), 1 CAP PO DAILY Folic Acid (Folic Acid), 1 MG PO QAM Ketoconazole (Ketoconazole), 1 APPLN TOP BID Losartan Potassium (Cozaar), 100 MG PO DAILY Metoprolol Tartrate (Lopressor) (Lopressor), 100 MG PO BID Oxycodone Hcl (Oxycodone Hcl), 1 TAB PO UD Raltegravir Potassium (Isentress), 400 MG PO BID Ritonavir (Norvir), 100 MG PO BID Scheduled PRN Albuterol Hfa (Ventolin Hfa), 2 PUFFS INH Q6H PRN for Shortness of Breath Amitriptyline HCl (Amitriptyline HCl), 50-100 MG PO HS PRN for Sleep Dronabinol (Marinol), 1 CAP PO DAILY PRN for anorexia Fluticasone Propionate (Nasal) (Flonase Allergy Relief), 2 SPRAYS FLAVIA DAILY PRN for Nasal Congestion Furosemide (Furosemide), 20 MG PO DAILY PRN for Edema Ipratropium-Albuterol (Duoneb), 1 TREATMENT INH Q4H PRN for SOB/Wheezing Ondansetron (Ondansetron HCl), 4 MG PO Q8 PRN for Nausea Allergies Coded Allergies: Penicillins (Verified Allergy, Severe, ANAPHYLAXIS, 01/24/18) Azithromycin (Verified Allergy, Intermediate, RASH AND SKIN PEELING, ) Niacin (Verified Allergy, Intermediate, RASH, 01/24/18) Sulfa Antibiotics (Verified Allergy, Unknown, "ITCHY RASH", 01/24/18) Tramadol (Verified Allergy, Unknown, RASH, 01/24/18) Gabapentin (Verified Adverse Reaction, Intermediate, hallucinations, ) Shellfish (Verified Adverse Reaction, Intermediate, gi symptoms, 01/24/18) Topiramate (Verified Adverse Reaction, Intermediate, NAUSEA, 01/24/18) Meloxicam (Verified Adverse Reaction, Unknown, GI SYMPTOMS, 01/24/18) Physical Exam Vital Signs Date Time Temp Pulse Resp B/P (MAP) Pulse Ox O2 Delivery O2 Flow Rate FiO2 01/24/18 12:09 95 Room Air 01/24/18 12:01 130/102 01/24/18 11:37 116 26 94 01/24/18 11:36 135/99 01/24/18 11:35 117 12 135/99 95 Room Air 01/24/18 11:31 132/83 01/24/18 11:30 113 22 132/83 94 Room Air 01/24/18 11:26 144/85 01/24/18 11:26 117 144/85 96 Room Air 01/24/18 11:21 153/110 01/24/18 11:20 107 12 153/110 97 01/24/18 11:13 164/107 01/24/18 11:12 110 15 164/107 98 Room Air 01/24/18 11:07 109 13 98 01/24/18 11:01 158/109 01/24/18 10:46 117 01/24/18 10:44 96 Room Air 01/24/18 10:44 37.1 119 16 149/109 96 Room Air 01/24/18 10:40 149/109 Physical Exam GENERAL: Sitting up in bed, alert, chronically-ill appearing EYE EXAM: normal conjunctiva. OROPHARYNX: no exudate, no erythema, lips, buccal mucosa, and tongue normal and mucous membranes are moist NECK: supple, no nuchal rigidity, no adenopathy, non-tender LUNGS: Clear to auscultation. Normal chest wall mechanics HEART: Tachycardic rate, no murmurs, S1 normal and S2 normal ABDOMEN: abdomen soft, non-tender, normo-active bowel sounds, no masses, no rebound or guarding. BACK: Back is symmetrical on inspection and there is no deformity, no midline tenderness, no CVA tenderness. SKIN: no rashes and no bruising UPPER EXTREMITIES: upper extremities are grossly normal. LOWER EXTREMITIES: No pitting edema. Calves are equal bilaterally. NEURO EXAM: Normal sensorium, cranial nerves II-XII grossly intact, normal speech, no gross weakness of arms, no gross weakness of legs. Medical Decision & Procedures ER Provider Diagnostic Interpretation: Radiology results as stated below per my review and the radiologist's interpretation: CHEST ONE VIEW PORTABLE CLINICAL HISTORY: 53 years-old Male presenting with Chest Pain. TECHNIQUE: Portable upright AP view of the chest was obtained. COMPARISON: 02/08/2017. FINDINGS: Atherosclerosis of the aortic arch. Cardiac silhouette normal in size. No focal opacity. No large effusion or pneumothorax. Osseous structures normal. Upper abdomen normal. IMPRESSION: 1. No acute cardiopulmonary disease. Electronically signed by: Guillermo Winters M.D. 01/24/2018 11:28 AM Dictated Date/Time: 01/24/2018 11:27 AM Laboratory Results 01/24/18 10:45 Red Blood Count 5.49, Mean Corpuscular Volume 80.9, Mean Corpuscular Hemoglobin 29.0, Mean Corpuscular Hemoglobin Concent 35.8, Mean Platelet Volume 9.8, Neutrophils (%) (Auto) 59.7, Lymphocytes (%) (Auto) 28.4, Monocytes (%) (Auto) 7.4, Eosinophils (%) (Auto) 3.1, Basophils (%) (Auto) 1.1, Neutrophils # (Auto) 6.91, Lymphocytes # (Auto) 3.30, Monocytes # (Auto) 0.86, Eosinophils # (Auto) 0.36, Basophils # (Auto) 0.13 01/24/18 10:45 Test 01/24/18 10:45 White Blood Count 11.60 K/uL (4.8-10.8) Red Blood Count 5.49 M/uL (4.7-6.1) Hemoglobin 15.9 g/dL (14.0-18.0) Hematocrit 44.4 % (42-52) Mean Corpuscular Volume 80.9 fL (80-100) Mean Corpuscular Hemoglobin 29.0 pg (25-34) Mean Corpuscular Hemoglobin Concent 35.8 g/dl (32-36) Platelet Count 259 K/uL (130-400) Mean Platelet Volume 9.8 fL (7.4-10.4) Neutrophils (%) (Auto) 59.7 % Lymphocytes (%) (Auto) 28.4 % Monocytes (%) (Auto) 7.4 % Eosinophils (%) (Auto) 3.1 % Basophils (%) (Auto) 1.1 % Neutrophils # (Auto) 6.91 K/uL (1.4-6.5) Lymphocytes # (Auto) 3.30 K/uL (1.2-3.4) Monocytes # (Auto) 0.86 K/uL (0.11-0.59) Eosinophils # (Auto) 0.36 K/uL (0-0.5) Basophils # (Auto) 0.13 K/uL (0-0.2) RDW Standard Deviation 41.9 fL (36.4-46.3) RDW Coefficient of Variation 14.4 % (11.5-14.5) Immature Granulocyte % (Auto) 0.3 % Immature Granulocyte # (Auto) 0.04 K/uL (0.00-0.02) Prothrombin Time 9.8 SECONDS (9.0-12.0) Prothromb Time International Ratio 0.9 (0.9-1.1) Activated Partial Thromboplast Time 25.4 SECONDS (21.0-31.0) Partial Thromboplastin Ratio 1.0 Anion Gap 8.0 mmol/L (3-11) Est Creatinine Clear Calc Drug Dose 88.3 ml/min Estimated GFR () 89.7 Estimated GFR (Non- 77.4 BUN/Creatinine Ratio 11.2 (10-20) Calcium Level 10.1 mg/dl (8.5-10.1) Magnesium Level 2.5 mg/dl (1.8-2.4) Total Creatine Kinase 121 U/L (39-308) Creatine Kinase MB 2.5 ng/ml (0.5-3.6) Creatine Kinase MB Ratio 2.1 (0-3.0) Troponin I < 0.015 ng/ml (0-0.045) Thyroid Stimulating Hormone (TSH) 0.471 uIu/ml (0.300-4.500) Laboratory results per my review. Medications Administered Medications (Trade) Dose Ordered Sig/Josh Route Start Time Stop Time Status Last Admin Dose Admin Sodium Chloride 2,000 ml @ 999 mls/hr Q2H1M STAT IV 01/24/18 11:10 01/24/18 13:10 DC 01/24/18 11:22 999 MLS/HR Ondansetron HCl (Zofran Inj) 4 mg NOW STAT IV 01/24/18 11:10 01/24/18 11:12 DC 01/24/18 11:23 4 MG Nitroglycerin (Nitrostat Tab) 0.4 mg Q5M PRN SL 01/24/18 11:15 01/24/18 14:40 DC 01/24/18 11:32 0.4 MG Morphine Sulfate (MoRPHine SULFATE INJ) 4 mg NOW STAT IV 01/24/18 11:10 01/24/18 11:12 DC 01/24/18 11:25 4 MG ECG Per My Interpretation Indication: chest pain Rate (beats per minute): 124 Rhythm: sinus tachycardia Findings: 1st degree AV block, other (incomplete RBBB. No PVCs.) ED Course ED COURSE: Vital signs were reviewed and showed tachycardic heart rate, as well as hypertension that was felt to be situational The patients medical record was reviewed The above diagnostic studies were performed and reviewed. ED treatments and interventions as stated above. 1110: Ordered Morphine Sulfate 4 mg IV, Zofran 4 mg IV, Sodium Chloride 2000 ml @ 999 mls/hr IV 1115: The patient was evaluated in room A10. A complete history and physical examination was performed. Ordered Nitroglycerin 0.4 mg SL 1216: Based on the patients age, coexisting illnesses, exam and lab findings the decision to treat as an inpatient was made. I spoke with Megan Phillips PA-C: Fawn. She will reevaluate the patient for hospitalization. The patient remained stable while under my care. The patient will be evaluated for further management. Medical Decision Differential diagnoses includes but is not limited to acute coronary syndrome, myocardial infarction, pericarditis, pulmonary embolus, aortic dissection, pneumonia, pneumothorax, musculoskeletal, shingles, esophageal. Patient is a 53-year-old male who presents to the ER for palpitations. Upon arrival he is found to be in atrial flutter at a rate of 143. Vitals were otherwise stable. He is placed on a Cardizem drip and this was titrated up. He was also given a bolus. Heart rate trended down to 90s. CBC along with BMP and troponins were negative. Chest x-ray unremarkable. Discussed with internal medicine patient was admitted for atrial flutter with RVR in the 140s on a Cardizem drip which trended down to the 90s. Discussed with Pt concerning signs and symptoms to watch out for. Pt was instructed to follow up with their PCP and discussed with the patient their option to return to the ED at anytime for persistent or worsening symptoms. The appropriate anticipatory guidance and out-patient management, including indications for return to the emergency department, were explained at length to the patient and understood. Medication Reconcilliation Current Medication List: was personally reviewed by me Blood Pressure Screening Patient's blood pressure: Elevated blood pressure Blood pressure disposition: Elevated BP felt to be situational Consults Time Called: 1213 Consulting Physician: Megan Phillips PA-C: Fawn Welchist Returned Call: 1216 I spoke with Megan Phillips PA-C: [facility]. She will reevaluate the patient for hospitalization. Impression Primary Impression: Precordial chest pain Scribe Attestation The scribe's documentation has been prepared under my direction and personally reviewed by me in its entirety. I confirm that the note above accurately reflects all work, treatment, procedures, and medical decision making performed by me. Departure Information Dispostion Being Evaluated By Hospitalist Referrals Guillermo Burdick M.D. (PCP) Patient Instructions My [facility]
[2018-01-24] MEDS: DARUNAVIR ETHANOLATE 600 MG PO SCH (16:39)
--- NOTE | 2018-01-24 16:42 | History and Physical ---
History & Physical Date & Time of Service: Jan 24, 2018 at 13:36 Chief Complaint: Chest Tightness/ Htn Primary Care Physician: Guillermo Burdick M.D. History of Present Illness Source: patient, clinic records, hospital records Pt is 53 y/o M with PMH HTN, HIV, TIAs, CVA, complete stenosis right internal carotid artery, possible [place] per patient 8-9 years ago, neuropathy, COPD, migraines, anxiety, depression, tobacco abuse, history of alcohol abuse presented to ER with complaint of high blood pressure and chest tightness started 0600 this morning. Patient reports that he woke up this morning and was feeling a little dizzy" did not feel quite right" and was having some mid and left sided chest tightness. He states he took his blood pressure and it was 282 /156. Patient took his morning BP meds (amlodipine, chlorthalidone, losartan, metoprolol). Patient states has intermittent issues with his blood pressure, however states recently has been controlled and reports his been taking his medications. Has Lasix to use as needed for lower extremity edema, states usually uses approximately twice a month, has not needed it recently. Patient denies any shortness of breath, cough, syncope, vision changes, neck pain. In route EMS reported patient received nitro SL x2 and 324 mg aspirin with decreased chest tightness. In ER patient received 3 additional sublingual nitroglycerin, and since patient reports no further chest tightness, dyspnea and had improvement of his BP. States after receiving nitro has mild headache. Chronic neuropathy. Patient denies any increased lower extremity pain or paresthesias. Patient states removed fentanyl patch 2 days ago, and is currently out of them. Reports has new prescription, and prescription is ready at pharmacy today however he did not get there yet to get them. States he has not had his oxycodone this afternoon. Patient is very concerned about receiving his pain medication. Patient reports had diarrhea for 2 days, that resolved 4 days ago, normal BM since. Last BM this morning which she states was formed. Patient reports has been eating and drinking well denies any trouble with appetite recently. Follows with Dr. Blount-ID. 10/2017: absolute CD4 count: 700 Patient reports he has been compliant with his medications, and has not been missing doses. Denies fever/chills, diaphoresis, N/V, syncope, vision changes, neck pain, SOB, orthopnea, palpitations, cough, sore throat, choking, otalgia, rhinorrhea, abdominal pain, urinary symptoms, weight loss. 10/23/16: Echo: EF: 60-65%, normal LV wall motion, grade II diastolic dysfunction , trace mitral regurgitation, mildly dilated ascending aorta 10/26/16: Stress echo: Nonischemic dobutamine stress echo History MRSA Past Medical/Surgical History Medical Problems: (1) Anal dysplasia Status: Chronic (2) Anxiety Status: Chronic (3) AVM (arteriovenous malformation) brain Status: Chronic (4) Carotid stenosis Permanent Comment: 03/06/15-SAÚL occlusion, LICA with 50-59% stenosis Status: Chronic (5) Cerebritis Status: Chronic (6) COPD (chronic obstructive pulmonary disease) Status: Chronic (7) Depression Status: Chronic (8) Dyslipidemia Status: Chronic (9) Dyspnea Status: Resolved (10) History of alcohol abuse Status: Chronic (11) History of CVA (cerebrovascular accident) Permanent Comment: in setting of right carotid artery thrombosis Status: Chronic (12) Human immunodeficiency virus infection Status: Chronic (13) Hypertension Status: Chronic (14) Ischemic stroke Status: Chronic (15) Migraine Status: Chronic (16) Neuropathic pain of both feet Status: Chronic (17) Pneumonia Status: Resolved (18) Polyp of colon Status: Chronic (19) Syncope Status: Resolved (20) TIA (transient ischemic attack) Status: Chronic Surgical Problems: (1) History of anal lesion Permanent Comment: 07/22/16 -obstruction lesion anus simple excision-Dr. Sascha cheatham at [facility] [place] Status: Resolved (2) Hx of colonoscopy Status: Resolved Family History Diabetes mellitus FATHER MOTHER FH: cancer FATHER (lung CA) Hypertension FATHER Social History Smoking Status: Current Every Day Smoker (0.25ppd x 30 years) Smokeless Tobacco Use: No Alcohol Use: Former use. Last 2010 Drug Use: none Marital Status: Housing status: lives with significant other Occupational Status: disabled Immunizations History of Influenza Vaccine: Yes Influenza Vaccine Date: Mar 02, 2016 History of Tetanus Vaccine?: Yes Tetanus Immunization Date: Mar 28, 2012 History of Pneumococcal: Yes Pneumococcal Date: Mar 26, 2016 Allergies Coded Allergies: Penicillins (Verified Allergy, Severe, ANAPHYLAXIS, 01/24/18) Azithromycin (Verified Allergy, Intermediate, RASH AND SKIN PEELING, ) Niacin (Verified Allergy, Intermediate, RASH, 01/24/18) Sulfa Antibiotics (Verified Allergy, Unknown, "ITCHY RASH", 01/24/18) Tramadol (Verified Allergy, Unknown, RASH, 01/24/18) Gabapentin (Verified Adverse Reaction, Intermediate, hallucinations, ) Shellfish (Verified Adverse Reaction, Intermediate, gi symptoms, 01/24/18) Topiramate (Verified Adverse Reaction, Intermediate, NAUSEA, 01/24/18) Meloxicam (Verified Adverse Reaction, Unknown, GI SYMPTOMS, 01/24/18) Home Medications Scheduled Amlodipine (Norvasc), 2.5 MG PO DAILY Aspirin Enteric Coated (Ecotrin Or Generic), 81 MG PO QAM Atorvastatin (Lipitor), 20 MG PO QPM Budesonide/Formoterol Fumarate (Symbicort 160/4.5 Inhaler), 2 PUFFS INH BID Chlorthalidone (Chlorthalidone), 25 MG PO QAM Clopidogrel Bisulfate (Clopidogrel), 75 MG PO QAM Darunavir Ethanolate (Prezista), 600 MG PO BID Docusate Sodium (Docusate Sodium), 1 CAP PO BID Fentanyl (Fentanyl), 1 PATCH TOP Q72 hours Fluoxetine Hcl (Pmdd) (Fluoxetine), 1 CAP PO DAILY Folic Acid (Folic Acid), 1 MG PO QAM Ketoconazole (Ketoconazole), 1 APPLN TOP BID Losartan Potassium (Cozaar), 100 MG PO DAILY Metoprolol Tartrate (Lopressor) (Lopressor), 100 MG PO BID Oxycodone Hcl (Oxycodone Hcl), 1 TAB PO UD Raltegravir Potassium (Isentress), 400 MG PO BID Ritonavir (Norvir), 100 MG PO BID Scheduled PRN Albuterol Hfa (Ventolin Hfa), 2 PUFFS INH Q6H PRN for Shortness of Breath Amitriptyline HCl (Amitriptyline HCl), 50-100 MG PO HS PRN for Sleep Dronabinol (Marinol), 1 CAP PO DAILY PRN for anorexia Fluticasone Propionate (Nasal) (Flonase Allergy Relief), 2 SPRAYS FLAVIA DAILY PRN for Nasal Congestion Furosemide (Furosemide), 20 MG PO DAILY PRN for Edema Ipratropium-Albuterol (Duoneb), 1 TREATMENT INH Q4H PRN for SOB/Wheezing Ondansetron (Ondansetron HCl), 4 MG PO Q8 PRN for Nausea Review of Systems See HPI for pertinent positives & negatives. All other systems reviewed and were otherwise negative Physical Exam Vital Signs Date Time Temp Pulse Resp B/P (MAP) Pulse Ox O2 Delivery O2 Flow Rate FiO2 01/24/18 13:26 92 14 177/104 100 Room Air 01/24/18 12:09 95 Room Air 01/24/18 12:01 130/102 01/24/18 11:37 116 26 94 01/24/18 11:36 135/99 01/24/18 11:35 117 12 135/99 95 Room Air 01/24/18 11:31 132/83 01/24/18 11:30 113 22 132/83 94 Room Air 01/24/18 11:26 144/85 01/24/18 11:26 117 144/85 96 Room Air 01/24/18 11:21 153/110 01/24/18 11:20 107 12 153/110 97 01/24/18 11:13 164/107 01/24/18 11:12 110 15 164/107 98 Room Air 01/24/18 11:07 109 13 98 01/24/18 11:01 158/109 01/24/18 10:46 117 01/24/18 10:44 96 Room Air 01/24/18 10:44 37.1 119 16 149/109 96 Room Air 01/24/18 10:40 149/109 General Appearance: + pertinent finding (chronic ill appearance, no apparent distress) Head: normocephalic, atraumatic Eyes: normal inspection, sclerae normal ENT: hearing grossly normal, pharynx normal, + pertinent finding (mucous membranes moist) Neck: supple, trachea midline Respiratory/Chest: lungs clear, normal breath sounds, no respiratory distress Cardiovascular: no murmur, + tachycardia (110) Abdomen/GI: normal bowel sounds, non tender, soft Extremities/Musculoskelatal: no calf tenderness, no pedal edema Neurologic/Psych: alert, normal mood/affect, oriented x 3 Skin: warm/dry Diagnostics Laboratory Results Results Past 24 Hours Test 01/24/18 10:45 Range/Units White Blood Count 11.60 4.8-10.8 K/uL Red Blood Count 5.49 4.7-6.1 M/uL Hemoglobin 15.9 14.0-18.0 g/dL Hematocrit 44.4 42-52 % Mean Corpuscular Volume 80.9 80-100 fL Mean Corpuscular Hemoglobin 29.0 25-34 pg Mean Corpuscular Hemoglobin Concent 35.8 32-36 g/dl Platelet Count 259 130-400 K/uL Mean Platelet Volume 9.8 7.4-10.4 fL Neutrophils (%) (Auto) 59.7 % Lymphocytes (%) (Auto) 28.4 % Monocytes (%) (Auto) 7.4 % Eosinophils (%) (Auto) 3.1 % Basophils (%) (Auto) 1.1 % Neutrophils # (Auto) 6.91 1.4-6.5 K/uL Lymphocytes # (Auto) 3.30 1.2-3.4 K/uL Monocytes # (Auto) 0.86 0.11-0.59 K/uL Eosinophils # (Auto) 0.36 0-0.5 K/uL Basophils # (Auto) 0.13 0-0.2 K/uL RDW Standard Deviation 41.9 36.4-46.3 fL RDW Coefficient of Variation 14.4 11.5-14.5 % Immature Granulocyte % (Auto) 0.3 % Immature Granulocyte # (Auto) 0.04 0.00-0.02 K/uL Prothrombin Time 9.8 9.0-12.0 SECONDS Prothromb Time International Ratio 0.9 0.9-1.1 Activated Partial Thromboplast Time 25.4 21.0-31.0 SECONDS Partial Thromboplastin Ratio 1.0 Sodium Level 135 136-145 mmol/L Potassium Level 4.1 3.5-5.1 mmol/L Chloride Level 102 98-107 mmol/L Carbon Dioxide Level 25 21-32 mmol/L Anion Gap 8.0 3-11 mmol/L Blood Urea Nitrogen 12 7-18 mg/dl Creatinine 1.08 0.60-1.40 mg/dl Est Creatinine Clear Calc Drug Dose 88.3 ml/min Estimated GFR () 89.7 Estimated GFR (Non- 77.4 BUN/Creatinine Ratio 11.2 10-20 Random Glucose 111 70-99 mg/dl Calcium Level 10.1 8.5-10.1 mg/dl Magnesium Level 2.5 1.8-2.4 mg/dl Total Creatine Kinase 121 39-308 U/L Creatine Kinase MB 2.5 0.5-3.6 ng/ml Creatine Kinase MB Ratio 2.1 0-3.0 Troponin I < 0.015 0-0.045 ng/ml Thyroid Stimulating Hormone (TSH) 0.471 0.300-4.500 uIu/ml Diagnostic Radiology CXR: IMPRESSION: 1. No acute cardiopulmonary disease. EKG EKG: sinus tachycardia, rate 124, incomplete RBBB Impression Assessment and Plan Pt is 53 y/o M with PMH HTN, HIV, TIAs, CVA, complete stenosis right internal carotid artery, possible [place] per patient 8-9 years ago, neuropathy, COPD, migraines, anxiety, depression, tobacco abuse, history of alcohol abuse presented to ER with complaint of high blood pressure and chest tightness started 0600 this morning. CHEST PAIN R/O ACS. Risk factors: HTN, hyperlipidemia Pt with reported chest tightness, dizziness this morning and BP: 282/156 taken at home. Pt received 324mg ASA and total 5 SL nitro with relief of chest tightness. No further dizziness, no palpitations, SOB, syncope, diaphoresis. In ER no ST elevation noted, initial troponin negative. Patient took his am BP meds -amlodipine, chlorthalidone, losartan, metoprolol -Monitor Vitals -Repeat EKG in am -Will trend troponin -Echo -lipid panel in am, continue statin -continue ASA, metoprolol, plavix -Nitro paste -repeat EKG for CP -Cardiology consult HYPERTENSION URGENCY Reported BP: 282/156 at home. 149/109 upon ER arrival after 2 SL nitro. BP down to 135/99 to 130/102 Patient reports took his morning BP meds -amlodipine, chlorthalidone, losartan, metoprolol -monitor -continue metoprolol, amlodipine, chlorthalidone, losartan -nitro paste at this time SINUS TACHYCARDIA Initially 119 down to 92. pt given 2L NSS in ER. Pt reports taking his metoprolol this am. Out of fentanyl patch for 2 days. May be secondary to opioid withdrawal. denies vomiting, reports eating and drinking. Does not appear dehydrated at this time -monitor -continue metoprolol -resume home pain meds - fentanyl patch and oxycodone HIV -continue prezista, isentress, norvir HX CVA -continue plavix, aspirin, atorvastatin HLD -continue atorvastatin CHRONIC PAIN/NEUROPATHY Pt given morphine 4mg IV in ER. Pt has been out of fentanyl patch for 2 days -continue fentanyl patch and oxycodone COPD No SOB, wheezing or signs of exacerbation -continue symbicort, nebs prn ANXIETY/DEPRESSION -continue prozac -continue amitriptyline HS prn TOBACCO ABUSE -recent trial of nicotine patch to stop smoking, was not consistent, doesn't feel ready to quit smoking yet -pt denies nicotine patch DVT Prophylaxis -heparin SQ Admit tele Full code Follows with Dr Burdick for routine care Pt was seen with Dr Armstrong. See addendum Advanced Directives Existing Living Will: No Existing Power of Meat Packager: No Resuscitation Status VTE Prophylaxis Will order VTE Prophylaxis: Yes Note ATTENDING ADDENDUM Record reviewed. Patient interviewed and examined. Care coordinated with Megan Nguyen PA-C. Please refer to her documentation for patient's history. Briefly, 53 YO male with history of possible [place] in past, cerebrovascular disease , hypertension, HIV, and other problems. Presented to ED with midsternal chest pressure associated with elevated blood pressures. CP relieved by several doses of NTG. Chest pain-free at time of my assessment, but experiencing headache. EXAM: General- no distress Lungs- clear to auscultation; no respiratory distress Cardiovascular- RRR; S4; no JVD; no pretibial edema Abdomen- + bowel sounds, soft, nontender Extremities- no cyanosis; no calf tenderness Neuro- alert, oriented Skin- warm & dry DATA: Troponin normal. Other lab studies as noted. EKG performed at 10:[address] at 120 / minute, no acute changes. ASSESSMENT AND PLAN: Chest pain associated with hypertensive urgency. First troponin normal. No acute EKG changes. Check serial troponins. Consult Cardiology. Titrate BP meds. Please refer to AUSTIN Velasquez's documentation for discussion of other issues. Stiven Armstrong MD . Additional Copies To Guillermo Burdick M.D.
--- NOTE | 2018-01-24 16:48 | CARDIOLOGY CONSULTATION ---
DATE OF CONSULTATION: 01/24/2018 PRIMARY DOCTOR: Dr. Guillermo Burdick REFERRING PHYSICIAN: Megan Vleasquez PA-C. INDICATIONS: Chest pressure, pain, hypertensive urgency. HISTORY OF PRESENT ILLNESS: The patient is a 53-year-old male. His past history is notable for longstanding history of hypertension, dyslipidemia, past right carotid artery occlusion with stroke and residual left carotid artery disease with stroke in 02/2015, history of chronic neuropathy, HIV, history of migraine, on chronic narcotic therapy, past history of right cerebral AVM. The patient presents today per his description, noting a pressure sensation in his chest this morning with a significantly elevated blood pressure and racing heart rhythm. He notes Duragesic patch was due today. He was concerned regarding symptoms and elevated blood pressure and was transported to the Emergency Room for further evaluation. He has continued to have symptoms of chest pressure pain since that presentation, though initial enzyme and EKG revealed no acute dynamic ST segment changes. An echocardiogram demonstrates preserved LV function on an urgent procedure. Denies any fevers or chills. Notes no productive cough. Main complaints are headache. Notes no melena, hematochezia, dysuria, hematuria. Weight has been stable. Notes chronic sleep disruption. He is active to a modest level degree about his home, though without specific tolerance change. He notes having had a "minor heart attack 10 years ago. Notes no further definition of such occurred out of state. Notes no syncope or near syncope. REVIEW OF SYSTEMS: Otherwise negative. ALLERGIES: MULTIPLE AND INCLUDE AZITHROMYCIN, GABAPENTIN, MELOXICAM, NIACIN, PENICILLIN, SHELLFISH, SULFA, TOPIRAMATE, AND TRAMADOL. MEDICATIONS: Prior to hospitalization with patient taking a.m. dosing today included albuterol inhaler, amitriptyline 50 mg at bedtime, amlodipine 2.5 most p.o. daily, aspirin 81 mg p.o. daily, atorvastatin 20 mg q.p.m., Symbicort 2 puffs b.i.d., chlorthalidone 25 every day, clopidogrel 75 mg p.o. q.a.m., Prezista 600 mg b.i.d., docusate 100 mg p.o. b.i.d., Marinol 10 mg daily, fentanyl patch 50 mcg q. 72 hours, fluoxetine 1 tablet every day 20 mg, folic acid 1 mg per day, furosemide 20 mg p.o. every day p.r.n. edema with no recent usage, DuoNeb nebulizer, losartan 100 mg p.o. daily, metoprolol 100 mg b.i.d., oxycodone 1 in afternoon and 2 tablets at bedtime for pain and Isentress 400 mg b.i.d., Norvir 100 mg b.i.d. PAST SURGICAL HISTORY: Notable for some local ablation of anal lesions. FAMILY HISTORY: Noncontributory. SOCIAL HISTORY: The patient is a 4-5 cigarettes per day smoker, uses no significant alcoholic beverages since 2010, uses no other over the counter medications. PHYSICAL EXAMINATION: GENERAL: The patient is an age-appropriate male, currently denying any cardiac complaints, though is complaining of headache. VITAL SIGNS: Notes on examination, blood pressure is 163/106. Heart rate is 102. HEENT: Normocephalic and atraumatic. Pupils are reactive. Nares without discharge. Throat was clear. NECK: Thin. There is no jugular venous distention. No carotid bruits. LUNGS: Clear to auscultation. CARDIOVASCULAR: Regular. There is no audible murmur or rub. ABDOMEN: Soft, nontender. EXTREMITIES: Without cyanosis or clubbing. There is no peripheral edema. There are intact distal pulses. DATA: EKG reveals sinus tachycardia with no ST segment abnormalities, rate 124. Chest x-ray revealed no infiltrate or edema. White cell count is 11.6, hemoglobin 15.9. Sodium is 135, potassium is 4.1, chloride is 102, bicarbonate is 25, BUN is 12, creatinine is 1.0, platelet count is 259. TSH is 0.47. Troponin I is less than 0.015. Echocardiogram done today demonstrates preserved LV systolic function without wall motion abnormality. IMPRESSION: Complex 53-year-old male with history of human immunodeficiency virus on chronic therapy, longstanding hypertension, documented vascular disease with prior history of right carotid occlusion, possibly thrombotic, longstanding hypertension presents now with chest pressure, pain and elevated blood pressures. He notes blood pressures have been markedly variable recently. No overt inciting cause, though he notes fentanyl patch is due for renewal today. Opioid levels were not checked on presentation; withdrawal, not completely excluded. PLAN: We will increase the amlodipine dosing currently. If blood pressures remain persistently elevated, would consider a trial of clonidine for blood pressure control. Initial EKGs, enzymes, and echocardiogram do not suggest an acute ischemic event though he remains at risk for vascular disease with documented prior carotid occlusion and past elevation in lipids. Will follow in the hospital as clinical course proceeds. WILL
[2018-01-24] MEDS ORDERED: NITROGLYCERIN 2% OINTMENT 30GM TUBE EXT SCH (18:00)
[2018-01-24] MEDS ORDERED: CLONIDINE HCL 0.1 MG TAB PO PRN (18:15)
[2018-01-24] MEDS ORDERED: OXYCODONE HCL IR 5 MG TAB (IMMEDIATE RELEASE) PO SCH ×2 (18:45→21:00)
[2018-01-24 19:10] VITALS: BP 154/92; PULSE 100; TEMP 37; O2SAT 96
[2018-01-24] MEDS ORDERED: RALTEGRAVIR POTASSIUM TAB 400 MG TAB PO SCH (21:00)
[2018-01-24] MEDS ORDERED: DARUNAVIR ETHANOLATE 600 MG PO SCH (21:00)
[2018-01-24] MEDS: DOCUSATE SODIUM 100 MG CAP PO SCH (21:00)
[2018-01-24] MEDS ORDERED: NON-FORMULARY MEDICATION (Ritonavir (Norvir) 100 MG) PO SCH (21:00)
[2018-01-24] MEDS ORDERED: ATORVASTATIN 20 MG TAB PO SCH (21:00)
[2018-01-24] MEDS: CLONIDINE HCL 0.1 MG TAB PO SCH (21:03)
[2018-01-24] MEDS: RITONAVIR 100 MG PO SCH (21:05)
[2018-01-24] MEDS: RALTEGRAVIR 400 MG PO SCH (21:06)
[2018-01-24] MEDS: KETOCONAZOLE 2% CR 15 GM TUBE EXT SCH (21:07)
[2018-01-24] MEDS: BUDESONIDE/FORMOTEROL FUMARATE 160/4.5 60 PUFFS/INHALER INH SCH (21:07)
[2018-01-24] MEDS: AMLODIPINE BESYLATE 5 MG TAB PO SCH (21:08)
[2018-01-24] MEDS: METOPROLOL TARTRATE 100 MG TAB PO SCH (21:09)
[2018-01-24] MEDS: HEPARIN SOD 5000 UNIT/0.5 ML CARP SQ SCH (21:10)
[2018-01-24 23:55] VITALS: BP 109/65; PULSE 79; TEMP 37; O2SAT 92
[2018-01-25] MEDS: CHECK FENTANYL PATCH PLACEMENT SCH ×2 (00:15→07:57)
[2018-01-25 03:10] VITALS: BP 112/52; PULSE 74; TEMP 36.7; O2SAT 95
[2018-01-25] MEDS: HEPARIN SOD 5000 UNIT/0.5 ML CARP SQ SCH (06:00)
[2018-01-25 06:28] LABS: BASO % 1.4 %; BASO ABS # 0.11 K/uL (0-0.2); EOS % 4.3 %; EOS ABS # 0.33 K/uL (0-0.5); HEMATOCRIT 37.9 % (42-52); HEMOGLOBIN 12.8 g/dL (14.0-18.0); IG# 0.03 K/uL (0.00-0.02); LYMPH % 46.4 %; MEAN CELL VOLUME 82.8 fL (80-100); MEAN CORPUSCULAR HEMOGLOBIN 27.9 pg (25-34); MEAN CORPUSCULAR HGB CONC 33.8 g/dl (32-36); MEAN PLATELET VOLUME 9.9 fL (7.4-10.4); MONO % 9.7 %; MONO ABS # 0.75 K/uL (0.11-0.59); NEUT % 37.8 %; NEUT ABS # 2.94 K/uL (1.4-6.5); PLATELET COUNT 211 K/uL (130-400); RED CELL DISTRIBUTION WIDTH CV 14.6 % (11.5-14.5); RED CELL DISTRIBUTION WIDTH SD 43.9 fL (36.4-46.3); WHITE BLOOD COUNT 7.76 K/uL (4.8-10.8)
[2018-01-25 07:08] LABS: CALCIUM 8.9 mg/dl (8.5-10.1); CREATININE 1.03 mg/dl (0.60-1.40)
[2018-01-25 07:38] VITALS: BP 135/86; PULSE 70; TEMP 36.7; O2SAT 98
[2018-01-25] MEDS: DOCUSATE SODIUM 100 MG CAP PO SCH (07:54)
[2018-01-25] MEDS: METOPROLOL TARTRATE 100 MG TAB PO SCH (07:54)
[2018-01-25] MEDS: DARUNAVIR ETHANOLATE 600 MG PO SCH (07:56)
[2018-01-25] MEDS: RALTEGRAVIR 400 MG PO SCH (07:56)
[2018-01-25] MEDS: RITONAVIR 100 MG PO SCH (07:56)
[2018-01-25] MEDS: KETOCONAZOLE 2% CR 15 GM TUBE EXT SCH (07:56)
[2018-01-25] MEDS: CLONIDINE HCL 0.1 MG TAB PO SCH (07:57)
[2018-01-25] MEDS: BUDESONIDE/FORMOTEROL FUMARATE 160/4.5 60 PUFFS/INHALER INH SCH (07:57)
[2018-01-25] MEDS: AMLODIPINE BESYLATE 5 MG TAB PO SCH (07:58)
[2018-01-25 08:00] VITALS: O2SAT 98
[2018-01-25 08:00] LABS: POTASSIUM 4.4 mmol/L (3.5-5.1)
[2018-01-25] MEDS ORDERED: FLUOXETINE HCL 20 MG CAP PO SCH (09:00)
[2018-01-25] MEDS ORDERED: ASPIRIN 81 MG ECTAB PO SCH (09:00)
[2018-01-25] MEDS ORDERED: LOSARTAN POTASSIUM 50 MG TAB PO SCH (09:00)
[2018-01-25] MEDS ORDERED: CLOPIDOGREL BISULFATE 75 MG TAB PO SCH (09:00)
[2018-01-25] MEDS ORDERED: CHLORTHALIDONE 25 MG TAB PO SCH (09:00)
[2018-01-25] MEDS ORDERED: OXYCODONE HCL IR 5 MG TAB (IMMEDIATE RELEASE) PO SCH (09:00)
[2018-01-25] MEDS ORDERED: AMLODIPINE BESYLATE 5 MG TAB PO SCH (09:00)
--- NOTE | 2018-01-25 10:18 | PROGRESS NOTE ---
DATE: 01/25/2018 Patient seen and examined. Chart, medications, telemetry reviewed. SUBJECTIVE: Patient feels well this morning. Denies any chest pain or discomfort. Notes since blood pressure came down last night, overall sense of well-being has been excellent. Notes no fever. Pain has been controlled. OBJECTIVE: VITAL SIGNS: Heart rate 70, blood pressure is 135/86. NECK: Thin. There is no jugular venous distention. There are no carotid bruits. LUNGS: Clear to auscultation. CARDIOVASCULAR: Regular. There is no S3 gallop. ABDOMEN: Soft, nontender. EXTREMITIES: Without cyanosis or clubbing. There is no peripheral edema. IMPRESSION AND PLAN: A 53-year-old male admitted with hypertensive urgency with chest pressure, no signs or symptoms of myocardial ischemia, normal troponins x3. Normal EKG, normal echocardiogram. Blood pressures have come under better control with adjustments as noted, specifically amlodipine discontinued; in addition to additional clonidine last evening, would continue clonidine 0.1 b.i.d. dosing. Continue discontinuation of amlodipine. All other medications would be continued as prescribed. Patient uses [facility] for pharmaceutical prescription.
--- NOTE | 2018-01-25 10:21 | Progress Note ---
Medicine Progress Note Date & Time of Visit: Jan 25, 2018 at 10:21 . Subjective Blood pressures improved. No further chest pressure. No SOB. Headache resolved. Ambulating. Would like to go home. . Objective Last 8 Hrs Date Time Temp Pulse Resp B/P (MAP) Pulse Ox O2 Delivery O2 Flow Rate FiO2 01/25/18 08:00 98 Room Air 01/25/18 07:38 36.7 70 18 135/86 (102) 98 Room Air 01/25/18 03:10 36.7 74 18 112/52 (72) 95 Room Air Physical Exam: General- no distress Lungs- clear to auscultation; no respiratory distress Cardiovascular- RRR; no gallop; no JVD; no pretibial edema Abdomen- + bowel sounds, soft, nontender Extremities- no cyanosis; no calf tenderness Neuro- alert, oriented Skin- warm & dry . Laboratory Results: Last 24 Hours Test 01/24/18 10:45 01/24/18 17:23 01/24/18 18:45 01/24/18 22:48 White Blood Count 11.60 K/uL Red Blood Count 5.49 M/uL Hemoglobin 15.9 g/dL Hematocrit 44.4 % Mean Corpuscular Volume 80.9 fL Mean Corpuscular Hemoglobin 29.0 pg Mean Corpuscular Hemoglobin Concent 35.8 g/dl Platelet Count 259 K/uL Mean Platelet Volume 9.8 fL Neutrophils (%) (Auto) 59.7 % Lymphocytes (%) (Auto) 28.4 % Monocytes (%) (Auto) 7.4 % Eosinophils (%) (Auto) 3.1 % Basophils (%) (Auto) 1.1 % Neutrophils # (Auto) 6.91 K/uL Lymphocytes # (Auto) 3.30 K/uL Monocytes # (Auto) 0.86 K/uL Eosinophils # (Auto) 0.36 K/uL Basophils # (Auto) 0.13 K/uL RDW Standard Deviation 41.9 fL RDW Coefficient of Variation 14.4 % Immature Granulocyte % (Auto) 0.3 % Immature Granulocyte # (Auto) 0.04 K/uL Prothrombin Time 9.8 SECONDS Prothromb Time International Ratio 0.9 Activated Partial Thromboplast Time 25.4 SECONDS Partial Thromboplastin Ratio 1.0 Sodium Level 135 mmol/L Potassium Level 4.1 mmol/L Chloride Level 102 mmol/L Carbon Dioxide Level 25 mmol/L Anion Gap 8.0 mmol/L Blood Urea Nitrogen 12 mg/dl Creatinine 1.08 mg/dl Est Creatinine Clear Calc Drug Dose 88.3 ml/min Estimated GFR () 89.7 Estimated GFR (Non- 77.4 BUN/Creatinine Ratio 11.2 Random Glucose 111 mg/dl Calcium Level 10.1 mg/dl Magnesium Level 2.5 mg/dl Total Creatine Kinase 121 U/L Creatine Kinase MB 2.5 ng/ml Creatine Kinase MB Ratio 2.1 Troponin I < 0.015 ng/ml < 0.015 ng/ml < 0.015 ng/ml Thyroid Stimulating Hormone (TSH) 0.471 uIu/ml Urine Opiates Screen POS Urine Methadone, Qualitative NEG Urine Barbiturates NEG Urine Phencyclidine (PCP) Level NEG Ur Amphetamine/Methamphetamine NEG MDMA (Ecstasy) Screen NEG Urine Benzodiazepines Screen NEG Urine Cocaine Metabolite NEG Urine Marijuana (THC) NEG Test 01/25/18 05:57 01/25/18 07:25 White Blood Count 7.76 K/uL Red Blood Count 4.58 M/uL Hemoglobin 12.8 g/dL Hematocrit 37.9 % Mean Corpuscular Volume 82.8 fL Mean Corpuscular Hemoglobin 27.9 pg Mean Corpuscular Hemoglobin Concent 33.8 g/dl Platelet Count 211 K/uL Mean Platelet Volume 9.9 fL Neutrophils (%) (Auto) 37.8 % Lymphocytes (%) (Auto) 46.4 % Monocytes (%) (Auto) 9.7 % Eosinophils (%) (Auto) 4.3 % Basophils (%) (Auto) 1.4 % Neutrophils # (Auto) 2.94 K/uL Lymphocytes # (Auto) 3.60 K/uL Monocytes # (Auto) 0.75 K/uL Eosinophils # (Auto) 0.33 K/uL Basophils # (Auto) 0.11 K/uL RDW Standard Deviation 43.9 fL RDW Coefficient of Variation 14.6 % Immature Granulocyte % (Auto) 0.4 % Immature Granulocyte # (Auto) 0.03 K/uL Sodium Level 136 mmol/L Potassium Level mmol/L 4.4 mmol/L Chloride Level 102 mmol/L Carbon Dioxide Level 29 mmol/L Anion Gap 5.0 mmol/L Blood Urea Nitrogen 17 mg/dl Creatinine 1.03 mg/dl Est Creatinine Clear Calc Drug Dose 92.6 ml/min Estimated GFR () 95.0 Estimated GFR (Non- 82.0 BUN/Creatinine Ratio 16.1 Random Glucose 108 mg/dl Calcium Level 8.9 mg/dl Magnesium Level mg/dl 2.3 mg/dl Triglycerides Level 372 mg/dl Cholesterol Level 201 mg/dl HDL Cholesterol 34 mg/dl LDL Cholesterol, Calculated 93 mg/dl VLDL Cholesterol, Calculated 74 mg/dl Cholesterol/HDL Ratio 5.9 Assessment & Plan CHEST PAIN Atypical chest pain associated with elevated blood pressures. No acute EKG changes. Troponins normal. Echo did not show any regional wall motion abnormalities. Cardiology consulted. No need for further evaluation. Ongoing risk factor reduction. HYPERTENSION / HYPERTENSIVE URGENCY Systolic BP as high as 211, diastolic BP as high as 130. Medications titrated. Clonidine added to regimen. Chlorthalidone, metoprolol, amlodipine, losartan continued. BP's morning of discharge 135/86, 108/68. CEREBROVASCULAR DISEASE Continue aspirin and statin. CHRONIC PAIN SYNDROME Secondary to neuropathy. Continue usual regimen. HIV Continue anti-viral regimen. VTE PROPHYLAXIS SQ heparin. DISPOSITION Discharge to home. Family Medicine follow-up with Dr. Burdick. . Consultants: Cardiology . Procedures: cardiac monitoring echo . Current Inpatient Medications: Current Inpatient Medications Medications (Trade) Dose Ordered Sig/Josh Route Start Time Stop Time Status Last Admin Dose Admin Heparin Sodium (Porcine) (Heparin Sq 5000 Unit/0.5ml) 5,000 unit Q8H SQ 01/24/18 22:00 02/23/18 21:59 01/24/18 21:10 5,000 UNIT Acetaminophen (Tylenol Tab) 650 mg Q4H PRN PO 01/24/18 13:15 02/23/18 13:14 Ondansetron HCl (Zofran Inj) 4 mg Q6H PRN IV 01/24/18 13:15 02/23/18 13:14 Polyethylene (Miralax Powder Packet) 17 gm DAILY PRN PO 01/24/18 13:15 02/23/18 13:14 Fentanyl (Duragesic Patch) 50 mcg Q72H TD 01/24/18 15:00 02/07/18 14:59 01/24/18 15:21 50 MCG Amitriptyline HCl (Elavil Tab) 100 mg HS PRN PO 01/24/18 13:30 02/23/18 13:29 01/24/18 21:08 50 MG Aspirin (Ecotrin Tab) 81 mg QAM PO 01/25/18 09:00 02/24/18 08:59 01/25/18 07:54 81 MG Atorvastatin Calcium (Lipitor Tab) 20 mg QPM PO 01/24/18 21:00 02/23/18 20:59 01/24/18 21:08 20 MG Budesonide/ Formoterol Fumarate (Symbicort 160/ 4.5 Inh) 2 puffs BID INH 01/24/18 21:00 02/23/18 20:59 01/25/18 07:57 2 PUFFS Chlorthalidone (Hygroton Tab) 25 mg QAM PO 01/25/18 09:00 02/24/18 08:59 01/25/18 07:54 25 MG Clopidogrel Bisulfate (plAVix TAB) 75 mg QAM PO 01/25/18 09:00 02/24/18 08:59 01/25/18 07:55 75 MG Docusate Sodium (coLACE CAP) 100 mg BID PO 01/24/18 21:00 02/23/18 20:59 01/25/18 07:54 100 MG Fluticasone Propionate (Flonase Nasal [place]) 2 sprays DAILY PRN FLAVIA 01/24/18 13:30 02/23/18 13:29 Folic Acid (Folvite Tab) 1 mg QAM PO 01/25/18 09:00 02/24/18 08:59 01/25/18 07:56 1 MG Ketoconazole (Nizoral 2% Crm) 1 appln BID EXT 01/24/18 21:00 02/03/18 20:59 01/25/18 07:56 1 APPLN Losartan Potassium (coZAAR TAB) 100 mg DAILY PO 01/25/18 09:00 02/24/18 08:59 01/25/18 07:56 100 MG Metoprolol Tartrate (Lopressor Tab) 100 mg BID PO 01/24/18 21:00 02/23/18 20:59 01/25/18 07:54 100 MG Fluoxetine HCl (Prozac Cap) 20 mg DAILY PO 01/25/18 09:00 02/24/18 08:59 01/25/18 07:55 20 MG Oxycodone HCl (Roxicodone Immediate Rel Tab) 10 mg 0900,1400 PO 01/25/18 09:00 02/08/18 08:59 01/25/18 09:15 10 MG Oxycodone HCl (Roxicodone Immediate Rel Tab) 20 mg HS PO 01/24/18 21:00 02/07/18 20:59 01/24/18 21:03 20 MG Miscellaneous (Iv Fluids Completed) 1 ea PRN PRN N/A 01/24/18 14:15 01/24/19 14:14 Miscellaneous (Fentanyl Patch Remove & Waste) 1 ea Q3D N/A 01/27/18 14:59 02/26/18 14:58 Miscellaneous Information (Check Fentanyl Patch Placement) 1 ea QS N/A 01/24/18 16:00 02/23/18 15:59 01/25/18 07:57 1 EA Ipratropium [place] (Atrovent 0.02% 0.5MG/2.5ML Neb) 0.5 mg Q6R PRN INH 01/24/18 15:00 02/23/18 14:59 Levalbuterol (Xopenex 1.25MG/ 0.5ML Neb) 1.25 mg Q6R PRN INH 01/24/18 15:00 02/23/18 14:59 Amlodipine Besylate (Norvasc Tab) 5 mg BID PO 01/24/18 21:00 02/24/18 08:59 01/25/18 07:58 5 MG Ritonavir (Norvir) 100 mg BID PO 01/24/18 21:00 02/23/18 20:59 01/25/18 07:56 100 MG Raltegravir (Isentress) 400 mg BID PO 01/24/18 21:00 02/23/18 20:59 01/25/18 07:56 400 MG Clonidine HCl (Catapres Tab) 0.1 mg Q6H PRN PO 01/24/18 18:15 02/23/18 18:14 01/24/18 18:41 0.1 MG Clonidine HCl (Catapres Tab) 0.1 mg BID PO 01/24/18 21:00 02/23/18 20:59 01/25/18 07:57 0.1 MG
[2018-01-25] MEDS ORDERED: CTP1X PO (10:26)
--- NOTE | 2018-01-25 10:34 | Discharge Instructions ---
Discharge Instructions Date of Service Jan 25, 2018. Admission Reason for Admission: chest pain . Discharge Discharge Diagnosis / Problem: chest pain- no sign of heart attack, high blood pressure Discharge Goals Goal(s): Improve function, Improve disease control Activity Recommendations Activity Limitations: resume your previous activity . Instructions / Follow-Up Instructions / Follow-Up APPOINTMENTS: FAMILY MEDICINE 01/28/2018 11:20 AM Jacky Ugarte DO (covering for Dr. Burdick) Family Practice [facility] OTHER INSTRUCTIONS: There was no sign of a heart attack. Your blood pressure was running high. Adding new medication for blood pressure: clonidine 0.1 mg twice a day prescription sent to [facility] in [place] Seek medical attention if you have: * temperature above 101 * chest pain or trouble breathing * abdominal pain, nausea, vomiting * diarrhea, dark stools or bloody stools * any unanswered questions or concerns Call 911 if symptoms are severe. Call if you have any questions or problems. You can reach a [facility] hospitalist on duty at [facility] 24 hours a day by calling [phone]. Please take good care of yourself. Stiven Armstrong . Current Hospital Diet Patient's current hospital diet: AHA Diet (Heart Healthy) Discharge Diet Recommended Diet: AHA Diet (Heart Healthy) Pending Studies Studies pending at discharge: no Laboratory Results Lipid Panel Test 01/25/18 05:57 Range/Units Triglycerides Level 372 H 0-150 mg/dl Cholesterol Level 201 H 0-200 mg/dl HDL Cholesterol 34 mg/dl Cholesterol/HDL Ratio 5.9 LDL Cholesterol, Calculated 93 mg/dl Medical Emergencies . Who to Call and When: Medical Emergencies: If at any time you feel your situation is an emergency, please call 911 immediately. . Non-Emergent Contact Non-Emergency issues call your: Primary Care Provider, Hospital Doctor . . "Provider Documentation" section prepared by Stiven Armstrong. . [place] Drug Monitoring Program Search Results: patient reviewed within database, no issues identified ( controlled substances prescribed under medication agreement)
[2018-01-25 10:49] VITALS: BP 108/68; PULSE 72; TEMP 36.5; O2SAT 96
[2018-01-25 10:53] VITALS: BP 108/68; PULSE 72; TEMP 36.5; O2SAT 96
--- NOTE | 2018-01-25 23:17 | Discharge Summary ---
Discharge Summary Date of Service Jan 25, 2018. Discharge Summary Admission Date: Jan 24, 2018 at 13:13 Discharge Date: Jan 25, 2018 Discharge Disposition: Home Principal Diagnosis: chest pain- MD ruled out OTHER ACUTE DIAGNOSES: hypertensive urgency . Secondary Diagnoses/Problems: Chronic and Resolved Medical Problems: (1) Anal dysplasia Status: Chronic (2) Anxiety Status: Chronic (3) AVM (arteriovenous malformation) brain Status: Chronic (4) Carotid stenosis Permanent Comment: 03/06/15-SAÚL occlusion, LICA with 50-59% stenosis Status: Chronic (6) COPD (chronic obstructive pulmonary disease) Status: Chronic (7) Depression Status: Chronic (8) Dyslipidemia Status: Chronic (10) History of alcohol abuse Status: Chronic (11) History of CVA (cerebrovascular accident) Permanent Comment: in setting of right carotid artery thrombosis Status: Chronic (12) Human immunodeficiency virus infection Status: Chronic (13) Hypertension Status: Chronic (14) Ischemic stroke Status: Chronic (15) Migraine Status: Chronic (16) Neuropathic pain of both feet Status: Chronic (18) Polyp of colon Status: Chronic (20) TIA (transient ischemic attack) Status: Chronic Surgical Problems: (1) History of anal lesion Permanent Comment: 07/22/16 -obstruction lesion anus simple excision-Dr. Sascha cheatham at [facility] Status: Resolved (2) Hx of colonoscopy Status: Resolved . Procedures: cardiac monitoring echo . Consultations: Cardiology . Medication Reconciliation New Medications: Clonidine HCl (Clonidine HCl) 0.1 Mg Tab 0.1 MG PO BID, #60 TAB 5 Refills Continued Medications: Albuterol Hfa (Ventolin Hfa) 200 Puffs/83281 Mcg Aers 2 PUFFS INH Q6H PRN for Shortness of Breath, INHALER Amitriptyline HCl (Amitriptyline HCl) 50 Mg Tab 50-100 MG PO HS PRN for Sleep Amlodipine (Norvasc) 2.5 Mg Tab 2.5 MG PO DAILY, TAB Aspirin Enteric Coated (Ecotrin Or Generic) 81 Mg Tab 81 MG PO QAM Atorvastatin (Lipitor) 20 Mg Tab 20 MG PO QPM Budesonide/Formoterol Fumarate (Symbicort 160/4.5 Inhaler) 120 Puffs/ Aero 2 PUFFS INH BID, INHALER Chlorthalidone (Chlorthalidone) 25 Mg Tab 25 MG PO QAM Clopidogrel Bisulfate (Clopidogrel) 75 Mg Tab 75 MG PO QAM Darunavir Ethanolate (Prezista) 600 Mg Tab 600 MG PO BID TAKE THIS MEDICATION WITH FOOD Docusate Sodium (Docusate Sodium) 100 Mg Cap 1 CAP PO BID for 15 Days, #30 CAP Dronabinol (Marinol) 10 Mg Cap 1 CAP PO DAILY PRN for anorexia Fentanyl (Fentanyl) 50 Mcg Tdsy 1 PATCH TOP Q72 hours Fluoxetine Hcl (Pmdd) (Fluoxetine) 20 Mg Cap 1 CAP PO DAILY for 90 Days, #90 CAP 1 Refill Fluticasone Propionate (Nasal) (Flonase Allergy Relief) 50 Mcg/Act Spr 2 SPRAYS FLAVIA DAILY PRN for Nasal Congestion Folic Acid (Folic Acid) 1 Mg Tab 1 MG PO QAM Furosemide (Furosemide) 20 Mg Tab 20 MG PO DAILY PRN for Edema Ipratropium-Albuterol (Duoneb) 3 Ml Nebu 1 TREATMENT INH Q4H PRN for SOB/Wheezing, INHA Ketoconazole (Ketoconazole) 45 Appln/15 Gm Cr 1 APPLN TOP BID for 14 Days Losartan Potassium (Cozaar) 100 Mg Tab 100 MG PO DAILY Metoprolol Tartrate (Lopressor) (Lopressor) 100 Mg Tab 100 MG PO BID Ondansetron (Ondansetron HCl) 4 Mg Tab 4 MG PO Q8 PRN for Nausea Oxycodone Hcl (Oxycodone Hcl) 10 Mg Tab 1 TAB PO UD, TAB TAKE 1 IN AM 1 TAB IN AFTERNOON 2 TABS AT HS Raltegravir Potassium (Isentress) 400 Mg Tab 400 MG PO BID, TAB Ritonavir (Norvir) 100 Mg Tab 100 MG PO BID Admission Information HPI (per Admitting provider): Pt is 53 y/o M with PMH HTN, HIV, TIAs, CVA, complete stenosis right internal carotid artery, possible MD per patient 8-9 years ago, neuropathy, COPD, migraines, anxiety, depression, tobacco abuse, history of alcohol abuse presented to ER with complaint of high blood pressure and chest tightness started 0600 this morning. Patient reports that he woke up this morning and was feeling a little dizzy" did not feel quite right" and was having some mid and left sided chest tightness. He states he took his blood pressure and it was 282 /156. Patient took his morning BP meds (amlodipine, chlorthalidone, losartan, metoprolol). Patient states has intermittent issues with his blood pressure, however states recently has been controlled and reports his been taking his medications. Has Lasix to use as needed for lower extremity edema, states usually uses approximately twice a month, has not needed it recently. Patient denies any shortness of breath, cough, syncope, vision changes, neck pain. In route EMS reported patient received nitro SL x2 and 324 mg aspirin with decreased chest tightness. In ER patient received 3 additional sublingual nitroglycerin, and since patient reports no further chest tightness, dyspnea and had improvement of his BP. States after receiving nitro has mild headache. Chronic neuropathy. Patient denies any increased lower extremity pain or paresthesias. Patient states removed fentanyl patch 2 days ago, and is currently out of them. Reports has new prescription, and prescription is ready at pharmacy today however he did not get there yet to get them. States he has not had his oxycodone this afternoon. Patient is very concerned about receiving his pain medication. Patient reports had diarrhea for 2 days, that resolved 4 days ago, normal BM since. Last BM this morning which she states was formed. Patient reports has been eating and drinking well denies any trouble with appetite recently. Follows with Dr. Blount-ID. 10/2017: absolute CD4 count: 700 Patient reports he has been compliant with his medications, and has not been missing doses. Denies fever/chills, diaphoresis, N/V, syncope, vision changes, neck pain, SOB, orthopnea, palpitations, cough, sore throat, choking, otalgia, rhinorrhea, abdominal pain, urinary symptoms, weight loss. 10/23/16: Echo: EF: 60-65%, normal LV wall motion, grade II diastolic dysfunction , trace mitral regurgitation, mildly dilated ascending aorta 10/26/16: Stress echo: Nonischemic dobutamine stress echo History MRSA . Physical Exam (per Admitting): General Appearance: + pertinent finding (chronic ill appearance, no apparent distress) Head: normocephalic, atraumatic Eyes: normal inspection, sclerae normal ENT: hearing grossly normal, pharynx normal, + pertinent finding (mucous membranes moist) Neck: supple, trachea midline Respiratory/Chest: lungs clear, normal breath sounds, no respiratory distress Cardiovascular: no murmur, + tachycardia (110) Abdomen/GI: normal bowel sounds, non tender, soft Extremities/Musculoskelatal: no calf tenderness, no pedal edema Neurologic/Psych: alert, normal mood/affect, oriented x 3 Skin: warm/dry Hospital Course CHEST PAIN Atypical chest pain associated with elevated blood pressures. No acute EKG changes. Troponins normal. Echo did not show any regional wall motion abnormalities. Cardiology consulted. No need for further evaluation. Ongoing risk factor reduction. HYPERTENSION / HYPERTENSIVE URGENCY Systolic BP as high as 211, diastolic BP as high as 130. Medications titrated. Clonidine added to regimen. Chlorthalidone, metoprolol, amlodipine, losartan continued. BP's morning of discharge 135/86, 108/68. CEREBROVASCULAR DISEASE Continue aspirin, clopidogrel, and statin. CHRONIC PAIN SYNDROME Secondary to neuropathy. Continue usual regimen. HIV Continue anti-viral regimen. VTE PROPHYLAXIS SQ heparin. DISPOSITION Discharge to home. Family Medicine follow-up with Dr. Burdick. . Discharge Instructions Discharge Instructions Date of Service Jan 25, 2018. Admission Reason for Admission: chest pain . Discharge Discharge Diagnosis / Problem: chest pain- no sign of heart attack, high blood pressure Discharge Goals Goal(s): Improve function, Improve disease control Activity Recommendations Activity Limitations: resume your previous activity . Instructions / Follow-Up Instructions / Follow-Up APPOINTMENTS: FAMILY MEDICINE 01/28/2018 11:20 AM Jacky Ugarte DO (covering for Dr. Burdick) Family Practice [facility] OTHER INSTRUCTIONS: There was no sign of a heart attack. Your blood pressure was running high. Adding new medication for blood pressure: clonidine 0.1 mg twice a day prescription sent to [facility] in [place] Seek medical attention if you have: * temperature above 101 * chest pain or trouble breathing * abdominal pain, nausea, vomiting * diarrhea, dark stools or bloody stools * any unanswered questions or concerns Call 911 if symptoms are severe. Call if you have any questions or problems. You can reach a [facility] hospitalist on duty at [facility] 24 hours a day by calling [phone]. Please take good care of yourself. Stiven Armstrong . Current Hospital Diet Patient's current hospital diet: AHA Diet (Heart Healthy) Discharge Diet Recommended Diet: AHA Diet (Heart Healthy) Pending Studies Studies pending at discharge: no Laboratory Results Lipid Panel Test 01/25/18 05:57 Range/Units Triglycerides Level 372 H 0-150 mg/dl Cholesterol Level 201 H 0-200 mg/dl HDL Cholesterol 34 mg/dl Cholesterol/HDL Ratio 5.9 LDL Cholesterol, Calculated 93 mg/dl Medical Emergencies . Who to Call and When: Medical Emergencies: If at any time you feel your situation is an emergency, please call 911 immediately. . Non-Emergent Contact Non-Emergency issues call your: Primary Care Provider, Hospital Doctor . . "Provider Documentation" section prepared by Stiven Armstrong. . [place] Drug Monitoring [place] Search Results: patient reviewed within database, no issues identified ( controlled substances prescribed under medication agreement) .
[2018-01-27] MEDS ORDERED: FENTANYL PATCH REMOVE & WASTE SCH (14:59)
== END 2018-01-25 11:07 | disposition home or self-care (01) ==
LOC: EDBD 10:37 → C.EDA 10:38 → C.2E 13:13 → EDBEDREQ 13:18 → ENRESERV 13:32
PROVIDERS: ADMIT Hospitalist; ATTEND Hospitalist
DX: R07.9 Chest pain, unspecified (principal); I10 Essential (primary) hypertension; F41.9 Anxiety disorder, unspecified; J44.9 Chronic obstructive pulmonary disease, unspecified; E78.5 Hyperlipidemia, unspecified; F32.9 Major depressive disorder, single episode, unspecified; Z86.73 Personal history of transient ischemic attack (TIA), and cerebral infarction without residual deficits; B20 Human immunodeficiency virus [HIV] disease; F17.200 Nicotine dependence, unspecified, uncomplicated; G89.29 Other chronic pain; Z79.82 Long term (current) use of aspirin; Z79.899 Other long term (current) drug therapy; Z88.1 Allergy status to other antibiotic agents; Z88.0 Allergy status to penicillin; Z88.2 Allergy status to sulfonamides; Z88.8 Allergy status to other drugs, medicaments and biological substances; Z82.49 Family history of ischemic heart disease and other diseases of the circulatory system

== ENCOUNTER 2018-10-04 13:13 | Inpatient (IN) ==
--- NOTE | 2018-10-04 14:11 | XRay Report ---
XR chest 1V portable HISTORY: 53 years-old Male AMS acutely altered mental status COMPARISON: Chest radiograph 07/04/2018, CTA chest 09/08/2018 TECHNIQUE: Portable AP view of the chest FINDINGS: Cardiac silhouette is upper limits of normal in size. Lungs are mildly hypoinflated with mild degree of bilateral interstitial coarsening. There is no pneumothorax, pleural effusion or overt pulmonary e amari. Bones of the chest appear grossly intact. IMPRESSION: Mild hypoinflation with bilateral interstitial opacities suggestive of atelectasis. A non specific pneumonitis or pulmonary edema considered less likely. The above report was generated using voice recognition software. It may contain grammatical, syntax o r spelling errors. Electronically signed by: Khoa Trevizo M.D. 10/04/2018 2:10 PM
[2018-10-04 14:12] LABS: Basophils # (auto) 0.04 K/uL (0-0.2); Basophils % (auto) 0.3 %; Eosinophils # (auto) 0.12 K/uL (0-0.5); Eosinophils % (auto) 0.8 %; Hematocrit (blood only) 40.3 % (42-52); Hemoglobin 13.5 g/dL (14.0-18.0); Immature Granulocytes # (auto) 0.09 K/uL (0.00-0.02); Immature Granulocytes % (auto) 0.6 %; Lymphocytes # (auto) 3.55 K/uL (1.2-3.4); Lymphocytes % (auto) 22.8 %; Mean Corpuscular Hgb Conc 33.5 g/dL (32-36); Mean Corpuscular Volume 85.9 fL (80-100); Mean Platelet Volume 10.3 fL (7.4-10.4); Monocytes # (auto) 1.79 K/uL (0.11-0.59); Monocytes % (auto) 11.5 %; Neutrophils # (auto) 9.96 K/uL (1.4-6.5); Platelet Count 208 K/uL (130-400); RDW Coefficient of Variation 15.9 % (11.5-14.5); RDW Standard Deviation 48.7 fL (36.4-46.3); Red Blood Count 4.69 M/uL (4.7-6.1); White Blood Count 15.55 K/uL (4.8-10.8)
[2018-10-04 14:17] LABS: Alanine Aminotransferase 51 U/L (12-78); Albumin Level 3.9 gm/dl (3.4-5.0); Aspartate Aminotransferase 20 U/L (15-37); BUN Creatinine Ratio 29.5 (10-20); Blood Urea Nitrogen 41 mg/dl (7-18); Calcium 9.4 mg/dl (8.5-10.1); Carbon Dioxide 25 mmol/L (21-32); Chloride 104 mmol/L (98-107); Creatinine Clr Calc Pharmacy 67.2 ml/min; Est GFR (African American) 66.7; Est GFR (Non-African American) 57.6; Glucose 105 mg/dl (70-99); Magnesium 2.6 mg/dl (1.8-2.4); Potassium 4.7 mmol/L (3.5-5.1); Sodium 135 mmol/L (136-145)
[2018-10-04 14:20] LABS: Partial Thromboplastin Ratio 0.9; Partial Thromboplastin Time 25.1 Seconds (21.0-31.0); Prothrombin Time 9.8 Seconds (9.0-12.0)
[2018-10-04 14:28] LABS: Alkaline Phosphatase 125 U/L (45-117); Bilirubin,Total 0.7 mg/dl (0.2-1); Globulin 4.1 gm/dl (2.5-4.0); Troponin I < 0.015 ng/ml (0-0.045)
[2018-10-04] MEDS ORDERED: ALBUTEROL 0.083% NEBU SOLN 3 ML VIAL NEB STA ×2 (14:36→17:36)
[2018-10-04] MEDS ORDERED: KETOROLAC 30 MG/ML VIAL IV STA (14:36)
--- NOTE | 2018-10-04 15:37 | XRay Report ---
XR pelvis 1-2V routine HISTORY: 53 years-old Male Pt c/o b/l leg pain acute pelvic and bilateral leg pain COMPARISON: Bilateral femur radiographs of same day, CT abdomen and pelvis 07/04/2018 TECHNIQUE: Single AP view of the pelvis FINDINGS: Mild osteoarthritis about the bilateral femoral acetabular joints. No acute fracture or dislocation. 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 Degenerative changes noted about the lower lumbar spine. Vascular calcifications of the pelvis. IMPRESSION: 1. No acute fracture or dislocation. 2. 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 3. 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 No associated articular collapse. The above report was generated using voice recognition software. It may contain grammatical, syntax o r spelling errors. Electronically signed by: Khoa Trevizo M.D. 10/04/2018 3:35 PM
[2018-10-04] MEDS ORDERED: SODIUM CHLORIDE 0.9% 1000ML 1,000 ML IV ONE (15:38)
[2018-10-04] MEDS ORDERED: NICOTINE 21 MG/24 HR TDSY TD STA (15:38)
--- NOTE | 2018-10-04 15:57 | XRay Report ---
XR femur RT 2V routine CLINICAL HISTORY: Right leg pain COMPARISON: None. DISCUSSION: No fractures are visualized. There is probable AVN of the right femoral head. IMPRESSION: 1. 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 No acute fractures Electronically signed by: Donnie Putnam M.D. 10/04/2018 3:56 PM
[2018-10-04 15:58] LABS: Creatine Kinase MB 1.8 ng/ml (0.5-3.6)
--- NOTE | 2018-10-04 15:58 | XRay Report ---
XR femur LT 2V routine CLINICAL HISTORY: Left femur pain COMPARISON: None. DISCUSSION: No acute fractures are visualized. There are no destructive lesions. Note is made of vasc ular calcifications. IMPRESSION: No fractures or destructive lesions are visualized. Electronically signed by: Donnie Putnam M.D. 10/04/2018 3:57 PM
--- NOTE | 2018-10-04 16:06 | Ultrasound Report ---
VENOUS DOPPLER ULTRASOUND LOWER EXTREMITIES BILATERAL CLINICAL HISTORY: Bilateral leg pain COMPARISON STUDY: November 17, 2016 FINDINGS: On the right, no thrombus was visualized within the common femoral superficial femoral or p opliteal veins. There was normal color-flow the proximal trifurcation veins of the right calf. In the left, there was nonocclusive thrombus within the distal superficial femoral vein and popliteal vein. The DVT appears acute. Superficial thrombus was also visualized within penetrating veins of th e popliteal fossa. IMPRESSION: 1. Acute left lower extremity DVT with involvement of the superficial femoral and popliteal veins 2. No evidence of right lower extremity DVT Electronically signed by: Donnie Putnam M.D. 10/04/2018 4:04 PM
[2018-10-04] MEDS ORDERED: HYDROmorphone INJ 0.5 MG/0.5 ML SYR IV STA (16:16)
[2018-10-04] MEDS ORDERED: ONDANSETRON INJ 2 MG/ML 2 ML VIAL IV STA (16:16)
[2018-10-04] MEDS ORDERED: OPTIRAY 320 125ml IV PRN (16:45)
--- NOTE | 2018-10-04 16:54 | CT Scan Report ---
CT ANGIOGRAM OF THE CHEST CLINICAL HISTORY: Shortness of breath. DVT. Suspected pulmonary embolism. COMPARISON STUDY: September 08, 2018 TECHNIQUE: Following the IV administration of 99 mL of Optiray-320, CT angiogram of the thorax was pe rformed from the thoracic inlet to the lung bases utilizing the pulmonary embolus protocol. Images ar e reviewed in the axial, sagittal, and coronal planes. IV contrast was administered without complicat ion. MIP imaging was performed. A dose lowering technique was utilized adhering to the principles of ALARA. CT DOSE: 350.43 mGy.cm FINDINGS: There is hepatic steatosis. Mediastinal lymph nodes are the upper limits of normal in size. There is no pathologic hilar or axill kenia lymphadenopathy. The ascending thoracic aorta measures 34 mm. There were no pulmonary artery filling defects to indicate acute pulmonary embolism. No pleural effusions are visualized. There is lower lobe bronchial wall thickening with right lower lobe mucous plugging. There are right lower lobe airspace opacity suspicious for a pneumonia. Examination is mildly compromised due to tammy on artifact. IMPRESSION: 1. No evidence of acute pulmonary embolism 2. Right lower lobe airspace opacities suspicious for a pneumonia. Imaging subsequent to treatment is recommended in follow-up 3. Lower lobe bronchial wall thickening and right lower lobe mucous plugging Electronically signed by: Donnie Putnam M.D. 10/04/2018 4:53 PM
[2018-10-04] MEDS ORDERED: VANCOMYCIN CONSULT ACTIVE PRN ×2 (17:26→20:37)
[2018-10-04] MEDS ORDERED: VANCOMYCIN HCL 1,750 MG in SODIUM CHLORIDE 0.9% 500 ML IV ONE (17:26)
[2018-10-04] MEDS ORDERED: LEVOFLOXACIN/D5W 750 MG/150 ML BAG IV STA (17:34)
[2018-10-04] MEDS ORDERED: CEFEPIME 2,000 MG in SYRINGE 7.5 ML IV STA (17:34)
[2018-10-04] MEDS ORDERED: CEFEPIME 2,000 MG/20 ML VIAL ONE (18:24)
--- NOTE | 2018-10-04 18:57 | History & Physical Report ---
Date of Service October 04, 2018 Assessment & Plan (1) Pneumonia: This is a 53yo M with a PMH of recent CVA in August 2018, HIV, carotid artery disease, COPD, anxiety, depression, neuropathy, tobacco use and other medical problems listed below who presents with generalized weakness, fever and chills for the past week and was found to have pneumonia and LLE DVT. -Hemodynamically stable, leukocytosis of 15K -Chest CTA with right lower lobe airspace opacities suspicious for a pneumonia -Blood cultures obtained, started empirically on cefepime, Vanc and Levaquin -Duonebs QIDR, continue home inhalers -Tessalon Perles and guaifenesin syrup as needed (2) DVT (deep venous thrombosis): Found to have acute left lower extremity DVT, in setting of sedentary lifestyle since CVA last month -No evidence of acute PE on chest CTA -Low-dose IV heparin with bolus ordered -Discharge planning for transition to oral anticoagulant (3) Oral thrush: Ongoing, continue swish and swallow 4 times daily (4) HIV (human immunodeficiency virus infection): Follows with Dr. Blount in clinic. Will consult ID in setting of infection -Continue antivirals -CD4 count 739 in Jun 2018 (5) COPD (chronic obstructive pulmonary disease): Continue home inhalers, duo nebs. No wheezing noted on lung exam (6) History of CVA (cerebrovascular accident): Recent CVA 2/2 R ICA occlusion in August 2018 -Discharged recently from half-way facility, set up with [facility] in [facility] and is doing rehab a few days a week -Is now wheelchair-bound with residual left facial droop and left-sided weakness -Continue baby aspirin, Plavix and statin daily -PT/OT evaluations, conditioning (7) Hypertension: History of labile hypertension. Currently normotensive -Continue home dose amlodipine, chlorthalidone, clonidine, losartan, Lopressor with hold parameters (8) Chronic pain syndrome: Has peripheral neuropathy secondary to HIV -Continue home dose gabapentin, oxycodone every 6 hours as needed -Pain managed by PCP -- will try to avoid additional narcotics during admission (9) Depression: (10) Anxiety: Continue SSRI (11) Dyslipidemia: Continue atorvastatin (12) Tobacco abuse: Has not smoked in 1 week. Is taking Chantix 1 mg twice daily -Nicotine patch ordered DVT Ppx: IV heparin in setting of acute LLE DVT Code status: FULL PCP: Jerrod Dispo: Admitted to [facility]. Discharge planning ordered. Patient seen in collaboration with Dr. Rodas. Please see addendum. History of Present Illness Chief Complaint: fever, chills, generalized weakness Primary Care Provider: Alexandr Elder DO This is a 53yo M with a PMH of recent CVA in August 2018, HIV, carotid artery disease, COPD, anxiety, depression, neuropathy, tobacco use and other medical problems listed below who presents with generalized weakness, fever and chills for the past week. Saw PCP last week for sinus pressure and was prescribed a Z- Maurice, which patient completed today. Continues to endorse subjective fever, chills, cough with productive yellow sputum and shortness of breath. Reports that he is taking home inhalers and using neb treatment. Has also found some relief from Tessalon Perles and guaifenesin syrup as needed. 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 Patient was transferred to [facility] for management and then transferred to [facility] for rehab, where he was recently discharged. Patient is set up with [facility] in [facility] and is doing rehab a few days a week. Is now whee lchair-bound with residual left facial droop and left-sided weakness. Is taking baby aspirin, Plavix and statin daily (he cannot tolerate high-dose statin, however). Has history of HIV and follows with Dr. Blount. In ED, found to be hemodynamically stable. Leukocytosis of 15k. Flu PCR is pending. Chest CTA with right lower lobe airspace opacities suspicious for a pneumonia. Also with lower lobe bronchial wall thickening and right lower lobe mucous plugging. No evidence of acute pulmonary embolism. Venous doppler study with evidence of acute left lower extremity DVT. Denies lightheadedness, confusion, chest pain, palpitations, nausea, vomiting, abdominal pain, dysuria, diarrhea, constipation or lower extremity swelling. Allergies Allergy/AdvReac Type Severity Reaction Status Date / Time Penicillins Allergy Severe ANAPHYLAXIS Verified 08/28/18 17:00 mivacurium Allergy Intermediate RASH AND Verified 08/28/18 17:00 SKIN PEELING niacin Allergy Intermediate RASH Verified 08/28/18 17:00 Sulfa (Sulfonamide Allergy Unknown "ITCHY Verified 08/28/18 17:00 Antibiotics) RASH" tramadol Allergy Unknown RASH Verified 08/28/18 17:00 shellfish derived AdvReac Intermediate gi symptoms Verified 08/28/18 17:00 topiramate AdvReac Intermediate NAUSEA Verified 08/28/18 17:00 meloxicam AdvReac Unknown GI SYMPTOMS Verified 08/28/18 17:00 Home Medications Home Medications Medication Instructions Recorded Confirmed Type Isentress 400 mg PO BID 06/08/18 10/04/18 History Norvir 100 mg PO BID 06/08/18 10/04/18 History Prezista 600 mg PO BIDM 06/08/18 10/04/18 History Symbicort 2 puff INHALATION Q12H 06/08/18 10/04/18 History albuterol sulfate [ProAir HFA] 2 puff INHALATION Q4 PRN 06/08/18 10/04/18 History amitriptyline 100 mg PO HS 06/08/18 10/04/18 History amlodipine 10 mg PO QAM 06/08/18 10/04/18 History aspirin 81 mg PO QAM 06/08/18 10/04/18 History atorvastatin 20 mg PO QAM 06/08/18 10/04/18 History chlorthalidone 25 mg PO QAM 06/08/18 10/04/18 History clonidine HCl 0.1 mg PO BID 06/08/18 10/04/18 History clopidogrel [Plavix] 75 mg PO QAM 06/08/18 10/04/18 History docusate sodium [Colace] 100 mg PO BID 06/08/18 10/04/18 History dronabinol [Marinol] 10 mg PO BID 06/08/18 10/04/18 History fluoxetine [Prozac] 40 mg PO QAM 06/08/18 10/04/18 History fluticasone propionate [Flonase 2 spray INTRANASAL QAM 06/08/18 10/04/18 History Allergy Relief] folic acid 1 mg PO QAM 06/08/18 10/04/18 History furosemide [Lasix] 20 mg PO DAILY PRN 06/08/18 10/04/18 History metoprolol tartrate 50 mg PO BID 06/08/18 10/04/18 History oxycodone 5 mg PO Q6 PRN 06/08/18 10/04/18 History gabapentin 800 mg PO TID 08/25/18 10/04/18 History Guaifenesin 200mg/5ml 5 ml PO Q6 PRN 10/04/18 10/04/18 History azithromycin 1 - 2 tab PO UD 10/04/18 10/04/18 History benzonatate [Tessalon Perles] 100 mg PO TID PRN 10/04/18 10/04/18 History codeine-guaifenesin [Cheratussin 5 ml PO Q6H PRN 10/04/18 10/04/18 History AC] ipratropium-albuterol 3 ml INHALATION UD 10/04/18 10/04/18 History levetiracetam [Keppra] 750 mg PO BID 10/04/18 10/04/18 History losartan 100 mg PO DAILY 10/04/18 10/04/18 History nystatin 5 ml BUCCAL QID 10/04/18 10/04/18 History omeprazole 20 mg PO DAILY 10/04/18 10/04/18 History ondansetron HCl 4 mg PO TID PRN 10/04/18 10/04/18 History raltegravir [Isentress] 400 mg PO BID 10/04/18 10/04/18 History varenicline [Chantix] 1 mg PO BID 10/04/18 10/04/18 History Past Med/Surg History Medical History Chronic pain syndrome (Chronic) Tobacco abuse (Chronic) Carotid artery stenosis (Chronic) Complete R ICA occlusion, L 50-59% HIV (human immunodeficiency virus infection) (Chronic) last CD4 count 717 10/2017 Depression (Chronic) Anxiety (Chronic) Polyp of colon (Chronic 12/21/12) Hypertension (Chronic) Dyslipidemia (Chronic) COPD (chronic obstructive pulmonary disease) (Chronic) Migraine (Chronic) History of CVA (cerebrovascular accident) (Chronic) "in setting of right carotid artery thrombosis" Carotid stenosis (Chronic) "03/06/15-SAÚL occlusion, LICA with 50-59% stenosis" AVM (arteriovenous malformation) brain (Chronic) History of alcohol abuse (Chronic) Anal dysplasia (Chronic) Neuropathic pain of both feet (Chronic) Alcohol abuse Pneumonia Surgical History History of colonoscopy (Chronic) History of anal lesion (Chronic) Family History Father Lung cancer Mother Hypertension Brother No pertinent family history Sister No pertinent family history Social History Preferred Language: Greek Communication Ability: Effective 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 Physical Exam Physical Exam: General Appearance: WD/WN, no apparent distress, appears chronically ill, left facial droop (chronic) Head: normocephalic, atraumatic Eyes: normal inspection, PERRL, EOMI ENT: hearing grossly normal. +oral thrush on tongue and mucosa Neck: supple, no JVD, no adenopathy Respiratory/Chest: Poor air movement bilaterally. Bibasilar crackles. No wheezes or rhonci. No respiratory distress or accessory muscle use Cardiovascular: regular rate, rhythm, no murmur, normal peripheral pulses Abdomen/GI: normal bowel sounds, soft, non-tender to palpation Extremities/Musculoskelatal: normal inspection, no calf tenderness, normal capillary refill, no pedal edema Neurologic/Psych: alert, oriented x 3, depressed mood, L-sided weakness (chronic) Skin: normal color, warm/dry Results & Data Vital Signs (Past 12 Hours) Vital Signs Temp Pulse Pulse Resp BP BP Pulse Ox 10/04/18 18:35 87 16 104/61 100 10/04/18 17:00 88 13 107/63 96 10/04/18 16:10 84 18 109/54 L 98 10/04/18 14:30 92 H 15 99 10/04/18 14:23 90 21 102/65 97 10/04/18 14:20 93 H 15 99 10/04/18 14:10 90 17 98 10/04/18 14:00 90 17 99 10/04/18 13:50 90 16 98 10/04/18 13:40 90 15 98 10/04/18 13:30 91 H 16 96 10/04/18 13:29 90 17 98 10/04/18 13:24 37.2 C 93 H 93 H 18 96/66 L 96/66 L 96 Laboratory Results Short CBC 10/04/18 Range/Units 12:46 WBC 15.55 H (4.8-10.8) K/uL Hgb 13.5 L (14.0-18.0) g/dL Hct 40.3 L (42-52) % Plt Count 208 (130-400) K/uL BMP 10/04/18 12:46 Sodium 135 L Potassium 4.7 Chloride 104 Carbon Dioxide 25 BUN 41 H Creatinine 1.38 Glucose 105 H Calcium 9.4 Cardiac Enzymes 10/04/18 10/04/18 Range/Units 12:46 12:46 Total Creatine Kinase 150 (39-308) U/L CK-MB (CK-2) 1.8 (0.5-3.6) ng/ml Troponin I < 0.015 (0-0.045) ng/ml Liver Function 10/04/18 Range/Units 12:46 Total Bilirubin 0.7 (0.2-1) mg/dl AST 20 (15-37) U/L ALT 51 (12-78) U/L Alkaline Phosphatase 125 H (45-117) U/L Albumin 3.9 (3.4-5.0) gm/dl Diagnostic Findings CXR: IMPRESSION: Mild hypoinflation with bilateral interstitial opacities sugg estive of atelectasis. A nonspecific pneumonitis or pulmonary edema considered less likely. Chest CTA: IMPRESSION: 1. No evidence of acute pulmonary embolism 2. Right lower lobe airspace opacities suspicious for a pneumonia. Imaging subsequent to treatment is recommended in follow-up 3. Lower lobe bronchial wall thickening and right lower lobe mucous plugging R Femur XR: IMPRESSION: 1. 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 No acute fractures L Femur XR: IMPRESSION: No fractures or destructive lesions are visualized. Pelvis XR: IMPRESSION: 1. No acute fracture or dislocation. 2. 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 3. 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 No associated articular collapse. Venous doppler study: IMPRESSION: 1. Acute left lower extremity DVT with involvement of the superficial femoral and popliteal veins 2. No evidence of right lower extremity DVT Supervising Physician Co-Signing Physician Notes Attending addendum The patient was seen and examined in emergency room This is a 53yo M with a PMH of recent CVA in August 2018, HIV, carotid artery disease, COPD, anxiety, depression, neuropathy, tobacco use and other medical problems listed below who presents with generalized weakness, fever and chills for the past week and was found to have pneumonia and LLE DVT. 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 Has left facial droop with left-sided hemiplegia Admission labs and imaging studies noted Has pneumonia and DVT with recent stroke and left hemiplegia Agree with assessment and plan as mentioned above by Thea Rodas (1) DVT (deep venous thrombosis) Affected thrombotic vein of extremity: unspecified vein of extremity Ch ronicity: unspecified DVT location: lower extremity Laterality: unspecified laterality Qualified Code(s): I82.409 - Acute embolism and thrombosis of unspecified deep veins of unspecified lower extremity (2) Pneumonia Laterality: unspecified laterality Lung location: unspecified part of lung Pneumonia type: due to unspecified organism Qualified Code(s): J18.9 - Pneumonia, unspecified organism
[2018-10-04] MEDS ORDERED: HEPARIN SOD (PORCINE) 1000 UNIT/ML 10 ML VIAL ONE (18:58)
[2018-10-04] MEDS ORDERED: HEPARIN 25000 UNIT/500 ML D5W IV ONE (18:58)
[2018-10-04 20:00] LABS: Influenza B virus by PCR Neg for Influ B (Neg)
[2018-10-04] MEDS ORDERED: ONDANSETRON 4 MG TAB PO PRN (20:10)
[2018-10-04] MEDS ORDERED: ALBUT/IPRATROP 3MG/0.5MG NEB 3 ML VIAL INH SCH (20:10)
[2018-10-04] MEDS ORDERED: ALBUTEROL HFA 8 GM INHALER INH PRN (20:10)
[2018-10-04] MEDS ORDERED: ACETAMINOPHEN 325 MG TAB PO PRN (20:10)
[2018-10-04] MEDS ORDERED: FUROSEMIDE 20 MG TAB PO PRN (20:10)
[2018-10-04] MEDS ORDERED: BENZONATATE 100 MG CAPSULE PO PRN (20:10)
[2018-10-04] MEDS ORDERED: guaiFENesin SUGAR FREE 100 MG/5 ML UDC PO PRN (20:31)
[2018-10-04] MEDS ORDERED: CEFEPIME CONSULT ACTIVE PRN (20:42)
[2018-10-04] MEDS ORDERED: LEVOFLOXACIN CONSULT ACTIVE PRN (20:42)
[2018-10-04] MEDS ORDERED: AMITRIPTYLINE HCL 50 MG TAB PO SCH (21:00)
[2018-10-04] MEDS ORDERED: RALTEGRAVIR POTASSIUM 400 MG TAB PO SCH (21:00)
[2018-10-04] MEDS ORDERED: Heparin Adult LOW DOSE Wt-Based Dextrose 5% 25,000 units/500 mL IV SCH (21:00)
[2018-10-04] MEDS ORDERED: DRONABINOL 2.5 MG CAP PO SCH (21:00)
[2018-10-04] MEDS: OXYCODONE HCL IR 5 MG TAB (IMMEDIATE RELEASE) PO PRN (21:03)
[2018-10-04] MEDS: Heparin IV Low Dose WITH Bolus IV SCH ×5 (21:23→23:35)
[2018-10-04] MEDS: ALBUT/IPRATROP 3MG/0.5MG NEB 3 ML VIAL NEB SCH (21:33)
[2018-10-04] MEDS: DOCUSATE SODIUM 100 MG CAP PO SCH (22:03)
[2018-10-04] MEDS: GABAPENTIN 800 MG TAB PO SCH (22:03)
[2018-10-04] MEDS: DRONABINOL 2.5 MG CAP PO SCH (22:04)
[2018-10-04] MEDS: levETIRAcetam 250 MG TAB PO SCH (22:05)
[2018-10-04] MEDS: VARENICLINE 1 MG TAB PO SCH (22:05)
[2018-10-04] MEDS: NYSTATIN SUSP 500,000 U/5 ML UDC BUCCAL SCH (22:06)
[2018-10-04] MEDS: BUDESONIDE/FORMOTEROL FUMARATE 160/4.5 60 PUFFS/INHALER INH SCH (22:10)
[2018-10-04] MEDS: METOPROLOL TARTRATE 50 MG TAB PO SCH (22:10)
[2018-10-04] MEDS: RALTEGRAVIR POTASSIUM 400 MG TAB PO SCH (22:11)
[2018-10-04] MEDS: cloNIDine HCl 0.1 MG TAB PO SCH (22:17)
[2018-10-05] MEDS: CEFEPIME 2,000 MG in SYRINGE 7.5 ML IV SCH ×3 (01:00→17:27)
[2018-10-05 01:28] LABS: Hematocrit (blood only) 33.7 % (42-52); Hemoglobin 11.1 g/dL (14.0-18.0); Mean Corpuscular Hgb Conc 32.9 g/dL (32-36); Mean Corpuscular Volume 85.8 fL (80-100); Mean Platelet Volume 9.3 fL (7.4-10.4); Platelet Count 160 K/uL (130-400); RDW Coefficient of Variation 15.9 % (11.5-14.5); RDW Standard Deviation 49.4 fL (36.4-46.3); Red Blood Count 3.93 M/uL (4.7-6.1); White Blood Count 9.37 K/uL (4.8-10.8)
[2018-10-05 01:45] LABS: Partial Thromboplastin Ratio 1.2; Partial Thromboplastin Time 33.2 Seconds (21.0-31.0)
[2018-10-05 01:52] LABS: BUN Creatinine Ratio 32.2 (10-20); Calcium 8.6 mg/dl (8.5-10.1); Creatinine Clr Calc Pharmacy 96.6 ml/min; Est GFR (African American) 103.4; Est GFR (Non-African American) 89.3; Potassium 4.3 mmol/L (3.5-5.1)
[2018-10-05] MEDS ORDERED: HEPARIN IV BOLUS 4,500 UNITS in SYRINGE 0 ML IV ONE (02:15)
[2018-10-05] MEDS ORDERED: VANCOMYCIN HCL 1,250 MG in SODIUM CHLORIDE 0.9% 250 ML IV SCH (04:00)
[2018-10-05] MEDS: ALBUT/IPRATROP 3MG/0.5MG NEB 3 ML VIAL NEB SCH ×4 (07:08→20:07)
[2018-10-05] MEDS: VARENICLINE 1 MG TAB PO SCH (08:25)
[2018-10-05] MEDS: RALTEGRAVIR POTASSIUM 400 MG TAB PO SCH ×2 (08:27→20:11)
[2018-10-05] MEDS: DARUNAVIR ETHANOLATE PO SCH ×2 (08:27→16:51)
[2018-10-05] MEDS: RITONAVIR PO SCH ×2 (08:28→16:51)
[2018-10-05] MEDS: BUDESONIDE/FORMOTEROL FUMARATE 160/4.5 60 PUFFS/INHALER INH SCH ×2 (08:28→20:12)
[2018-10-05 08:29] LABS: Partial Thromboplastin Ratio 1.4
[2018-10-05] MEDS: FLUTICASONE PROPIONATE NA SPR 16 GM BTL NAE SCH (08:29)
[2018-10-05] MEDS: NYSTATIN SUSP 500,000 U/5 ML UDC BUCCAL SCH ×4 (08:30→20:13)
[2018-10-05] MEDS: METOPROLOL TARTRATE 50 MG TAB PO SCH (08:30)
[2018-10-05] MEDS: CLOPIDOGREL BISULFATE 75 MG TAB PO SCH (08:31)
[2018-10-05] MEDS: GABAPENTIN 800 MG TAB PO SCH ×2 (08:31→12:37)
[2018-10-05] MEDS: levETIRAcetam 250 MG TAB PO SCH ×2 (08:31→20:09)
[2018-10-05] MEDS: FOLIC ACID 1 MG TAB PO SCH (08:31)
[2018-10-05] MEDS: ATORVASTATIN 20 MG TAB PO SCH (08:31)
[2018-10-05] MEDS: FLUOXETINE HCL 20 MG CAP PO SCH (08:31)
[2018-10-05] MEDS: DOCUSATE SODIUM 100 MG CAP PO SCH ×2 (08:32→20:14)
[2018-10-05] MEDS ORDERED: ASPIRIN 81 MG ECTAB PO SCH (09:00)
[2018-10-05] MEDS ORDERED: PANTOprazole 40 MG TAB PO SCH (09:00)
[2018-10-05] MEDS ORDERED: AMLODIPINE BESYLATE 5 MG TAB PO SCH (09:00)
[2018-10-05] MEDS ORDERED: CHLORTHALIDONE 25 MG TAB PO SCH (09:00)
[2018-10-05] MEDS ORDERED: LOSARTAN POTASSIUM 50 MG TAB PO SCH (09:00)
[2018-10-05] MEDS ORDERED: HEPARIN IV BOLUS 4,500 UNITS in SYRINGE 0 ML IV SCH (09:45)
[2018-10-05] MEDS: DRONABINOL 2.5 MG CAP PO SCH (10:31)
[2018-10-05] MEDS: cloNIDine HCl 0.1 MG TAB PO SCH (10:31)
--- NOTE | 2018-10-05 10:39 | Infectious Disease Consult ---
Date of Consultation October 05, 2018 Assessment & Plan (1) Influenza A: 53-year-old long-standing HIV patient, recently well maintained on antiretrovirals, status post recent CVA, now with influenza A complicated by pneumonia. Given negative MRSA nasal swab, can discontinue vancomycin. Would continue on other antibiotics and Tamiflu pending further culture results. Will follow. (2) Pneumonia: (3) HIV (human immunodeficiency virus infection): History of Present Illness Attending Physician: Yobani Zarate MD History of Present Illness 53-year-old male well-known to the infectious disease service with long history of HIV infection, reasonably well maintained on antiretrovirals with good CD4 count and very low level viral load, recently hospitalized with acute right- sided CVA with left-sided hemiparesis and was at rehab hospital when he developed onset of cough, chest pain, shortness of breath, and fever with chills and body aches. Reportedly several people were ill with influenza at the time. He was brought to the hospital and was found to have evidence of right lower lobe pneumonia on chest x-ray and CT scanning. Influenza PCR is positive for influenza A. Patient has been started on Tamiflu and antibiotics, feeling slightly better this morning. Blood cultures are pending. Has been treated empirically with vancomycin, cefepime, and levofloxacin. Allergies Allergy/AdvReac Type Severity Reaction Status Date / Time Penicillins Allergy Severe ANAPHYLAXIS Verified 08/28/18 17:00 mivacurium Allergy Intermediate RASH AND Verified 08/28/18 17:00 SKIN PEELING niacin Allergy Intermediate RASH Verified 08/28/18 17:00 Sulfa (Sulfonamide Allergy Unknown "ITCHY Verified 08/28/18 17:00 Antibiotics) RASH" tramadol Allergy Unknown RASH Verified 08/28/18 17:00 shellfish derived AdvReac Intermediate gi symptoms Verified 08/28/18 17:00 topiramate AdvReac Intermediate NAUSEA Verified 08/28/18 17:00 meloxicam AdvReac Unknown GI SYMPTOMS Verified 08/28/18 17:00 Home Medications Home Medications Medication Instructions Recorded Confirmed Type Isentress 400 mg PO BID 06/08/18 10/04/18 History Norvir 100 mg PO BID 06/08/18 10/04/18 History Prezista 600 mg PO BIDM 06/08/18 10/04/18 History Symbicort 2 puff INHALATION Q12H 06/08/18 10/04/18 History albuterol sulfate [ProAir HFA] 2 puff INHALATION Q4 PRN 06/08/18 10/04/18 History amitriptyline 100 mg PO HS 06/08/18 10/04/18 History amlodipine 10 mg PO QAM 06/08/18 10/04/18 History aspirin 81 mg PO QAM 06/08/18 10/04/18 History atorvastatin 20 mg PO QAM 06/08/18 10/04/18 History chlorthalidone 25 mg PO QAM 06/08/18 10/04/18 History clonidine HCl 0.1 mg PO BID 06/08/18 10/04/18 History clopidogrel [Plavix] 75 mg PO QAM 06/08/18 10/04/18 History docusate sodium [Colace] 100 mg PO BID 06/08/18 10/04/18 History dronabinol [Marinol] 10 mg PO BID 06/08/18 10/04/18 History fluoxetine [Prozac] 40 mg PO QAM 06/08/18 10/04/18 History fluticasone propionate [Flonase 2 spray INTRANASAL QAM 06/08/18 10/04/18 History Allergy Relief] folic acid 1 mg PO QAM 06/08/18 10/04/18 History furosemide [Lasix] 20 mg PO DAILY PRN 06/08/18 10/04/18 History metoprolol tartrate 50 mg PO BID 06/08/18 10/04/18 History oxycodone 5 mg PO Q6 PRN 06/08/18 10/04/18 History gabapentin 800 mg PO TID 08/25/18 10/04/18 History Guaifenesin 200mg/5ml 5 ml PO Q6 PRN 10/04/18 10/04/18 History azithromycin 1 - 2 tab PO UD 10/04/18 10/04/18 History benzonatate [Tessalon Perles] 100 mg PO TID PRN 10/04/18 10/04/18 History codeine-guaifenesin [Cheratussin 5 ml PO Q6H PRN 10/04/18 10/04/18 History AC] ipratropium-albuterol 3 ml INHALATION UD 10/04/18 10/04/18 History levetiracetam [Keppra] 750 mg PO BID 10/04/18 10/04/18 History losartan 100 mg PO DAILY 10/04/18 10/04/18 History nystatin 5 ml BUCCAL QID 10/04/18 10/04/18 History omeprazole 20 mg PO DAILY 10/04/18 10/04/18 History ondansetron HCl 4 mg PO TID PRN 10/04/18 10/04/18 History raltegravir [Isentress] 400 mg PO BID 10/04/18 10/04/18 History varenicline [Chantix] 1 mg PO BID 10/04/18 10/04/18 History Patient History Medical History Chronic pain syndrome (Chronic) Tobacco abuse (Chronic) Carotid artery stenosis (Chronic) Complete R ICA occlusion, 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% HIV (human immunodeficiency virus infection) (Chronic) last CD4 count 717 10/2017 Depression (Chronic) Anxiety (Chronic) Polyp of colon (Chronic 12/21/12) Hypertension (Chronic) Dyslipidemia (Chronic) COPD (chronic obstructive pulmonary disease) (Chronic) Migraine (Chronic) History of CVA (cerebrovascular accident) (Chronic) "in setting of right carotid artery thrombosis" Carotid stenosis (Chronic) "03/06/15-SAÚL occlusion, LICA with 50-59% stenosis" AVM (arteriovenous malformation) brain (Chronic) History of alcohol abuse (Chronic) Anal dysplasia (Chronic) Neuropathic pain of both feet (Chronic) Alcohol abuse Pneumonia Surgical History History of colonoscopy (Chronic) History of anal lesion (Chronic) Family History Father Lung cancer Mother Hypertension Brother No pertinent family history Sister No pertinent family history Social History Preferred Language: Romanian Communication Ability: Effective 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 Beliefs That Will Affect Care: None marital status: Current Living Situation: Spouse Other Information That Helps Us Care for You: No Feels Safe at Home: Yes Safety Concerns: Feels Safe At This Time Smoking Status: Current every day smoker Tobacco Type: cigarettes Cigarettes Per Day: 10 Do You Dip or Chew Tobacco: No Second Hand Exposure: Yes Hx Alcohol Use: No Hx Substance Use: No Review of Systems Review of Systems: All systems reviewed & are unremarkable except as noted in HPI & below Physical Exam Constitutional: WD/WN, vitals as above comfortable; no acute distress Eyes: PERRL, conjunctivae normal, anicteric sclerae ENMT: external ear and nose normal, oropharynx normal Neck: trachea midline, no thyromegaly neck nontender Respiratory: normal percussion; no respiratory distress and does not use accessory muscles Auscultation: + rhonchi (Right lower lobe) Cardiovascular: Rate/Rhythm: regular rate and regular rhythm Heart Sounds: normal S1 and normal S2; no gallop, no murmur and no cardiac rub Vessels: normal peripheral pulses; no JVD Gastrointestinal (Abdomen): normal bowel sounds, soft, nontender, no hepatosplenomegaly Musculoskeletal: no cyanosis or clubbing, extremities motor strength 5/5 Spine: thoracic spine normal to inspection and lumbar spine normal to in spection; no cervical spinal tenderness Skin: no rashes, warm and dry normal turgor; no lesions Neurologic: awake Mild left hemiparesis and left facial weakness Psychiatric: A+Ox3, euthymic affect Orientation: cooperative Lymphatic: no cervical or axillary lymphadenopathy no inguinal lymphadenopathy Results & Data Vital Signs (Past 12 Hours) Vital Signs Temp Pulse Pulse Resp BP BP Pulse Ox 10/05/18 08:00 92 H 10/05/18 07:41 37.0 C 94 H 18 128/73 92 10/05/18 07:08 87 16 90 10/05/18 04:26 37.5 C 93 H 20 97/65 L 92 10/04/18 23:28 36.8 C 98 H 20 104/62 95 10/04/18 23:15 108 H Pulse Ox 10/05/18 08:00 10/05/18 07:41 10/05/18 07:08 10/05/18 04:26 10/04/18 23:28 10/04/18 23:15 95 Laboratory Results Short CBC 10/04/18 10/05/18 Range/Units 12:46 00:59 WBC 15.55 H 9.37 (4.8-10.8) K/uL Hgb 13.5 L 11.1 L (14.0-18.0) g/dL Hct 40.3 L 33.7 L (42-52) % Plt Count 208 160 (130-400) K/uL BMP 10/04/18 10/05/18 12:46 00:59 Sodium 135 L 137 Potassium 4.7 4.3 Chloride 104 109 H Carbon Dioxide 25 24 BUN 41 H 31 H Creatinine 1.38 0.96 D Glucose 105 H 115 H Calcium 9.4 8.6 Cardiac Enzymes 10/04/18 10/04/18 Range/Units 12:46 12:46 Total Creatine Kinase 150 (39-308) U/L CK-MB (CK-2) 1.8 (0.5-3.6) ng/ml Troponin I < 0.015 (0-0.045) ng/ml Liver Function 10/04/18 Range/Units 12:46 Total Bilirubin 0.7 (0.2-1) mg/dl AST 20 (15-37) U/L ALT 51 (12-78) U/L Alkaline Phosphatase 125 H (45-117) U/L Albumin 3.9 (3.4-5.0) gm/dl Diagnostic Findings CT ANGIOGRAM OF THE CHEST CLINICAL HISTORY: Shortness of breath. DVT. Suspected pulmonary embolism. COMPARISON STUDY: September 08, 2018 TECHNIQUE: Following the IV administration of 99 mL of Optiray-320, CT angiogram of the thorax was performed from the thoracic inlet to the lung bases utilizing the pulmonary embolus protocol. Images are reviewed in the axial, sagittal, and coronal planes. IV contrast was administered without complication. MIP imaging was performed. A dose lowering technique was utilized adhering to the principles of ALARA. CT DOSE: 350.43 mGy.cm FINDINGS: There is hepatic steatosis. Mediastinal lymph nodes are the upper limits of normal in size. There is no pathologic hilar or axillary lymphadenopathy. The ascending thoracic aorta measures 34 mm. There were no pulmonary artery filling defects to indicate acute pulmonary embolism. No pleural effusions are visualized. There is lower lobe bronchial wall thickening with right lower lobe mucous plugging. There are right lower lobe airspace opacity suspicious for a pneum onia. Examination is mildly compromised due to motion artifact. IMPRESSION: 1. No evidence of acute pulmonary embolism 2. Right lower lobe airspace opacities suspicious for a pneumonia. Imaging sub sequent to treatment is recommended in follow-up 3. Lower lobe bronchial wall thickening and right lower lobe mucous plugging Electronically signed by: Donnie Putnam M.D. 10/04/2018 4:53 PM (1) Pneumonia Laterality: unspecified laterality Lung location: unspecified part of lung Pneumonia type: due to unspecified organism Qualified Code(s): J18.9 - Pneumonia, unspecified organism
--- NOTE | 2018-10-05 10:59 | Hospitalist Progress Note ---
Date of Service October 05, 2018 Assessment & Plan (1) Sepsis: (2) Pneumonia: Notified by nursing around noon that BP had decreased but that mentation had not changed. Was lethargic but still able to respond to questions and follow commands. A 500cc bolus was ordered and BP was repeated manually but was lower at 57/37. During this time, patient's cognitive status began to decline and a code purple was called. Dr. Zarate was at bedside as well. Patient was transferred to ICU. Narcan administered without much effect. An abdominal ultrasound was performed and patient was found to have severe urinary retention. Also revealed enlarged, fatty liver. BPs initially improved with continued fluids and albumin. Became more hypotensive this evening, so central line was established by Dr. Brown and Levophed was started. BP improved to 93/62. Hemoglobin has decreased since heparin was initiated, and bruising is noted on patient's abdomen and lower extremities. GI service saw patient at bedside and recommended stopping heparin, continuing to trend H&H and will plan for bedside EGD in the morning. Patient's parents have been updated. -Central line access was established, Levophed started with improvement of BP -Chest CTA with right lower lobe airspace opacities suspicious for a pneumonia -Blood cultures obtained, still pending -Started empirically on cefepime, Vanc and Levaquin. Continuing cefepime -Duonebs QIDR, continue home inhalers -Management per ICU (3) Influenza A: Positive Flu A on PCR -Has had symptoms for last week -Tamiflu BID, contact precautions (4) Urinary retention: Found to have urinary retention, with 1.4 L initial output of dark urine -Considered as infectious source but UA unremarkable -Monitor I&Os (5) DVT (deep venous thrombosis): Found to have acute left lower extremity DVT, in setting of sedentary lifestyle since CVA last month -No evidence of acute PE on chest CTA -Low-dose IV heparin with bolus initiated but discontinued this afternoon due to concern for possible GI bleed (6) Anemia: Found to have declining hgb from 13.5 to 11, thought initially to be due to dilution from IV fluids but now concern for possible GI bleed -IV heparin was discontinued. Type & cross, transfuse for hgb <8 -GI service evaluated patient at bedside. Will plan for EGD tomorrow (7) Oral thrush: Ongoing, continue swish and swallow 4 times daily (8) HIV (human immunodeficiency virus infection): Follows with Dr. Blount in clinic. Will consult ID in setting of infection -Continue antivirals -CD4 count 739 in Jun 2018 (9) COPD (chronic obstructive pulmonary disease): Continue home inhalers, duo nebs. No wheezing noted on lung exam (10) History of CVA (cerebrovascular accident): Recent CVA 2/2 R ICA occlusion in August 2018 -[facility], [facility] up with [facility] and is doing rehab a few days a week -Is now wheelchair-bound with residual left facial droop and left-sided weakness -Takes baby aspirin, Plavix -PT/OT evaluations, conditioning (11) Hypertension: History of labile hypertension. -Was normotensive until today and is now hypotensive -Hold dose amlodipine, chlorthalidone, clonidine, losartan and lopressor (12) Chronic pain syndrome: Has peripheral neuropathy in setting of alcohol abuse, antivirals -Holding home oxycodone in setting of lethargy, hypotension (13) Depression: Continue SSRI (14) Dyslipidemia: Continue atorvastatin (15) Tobacco abuse: Has not smoked in 1 week. -Nicotine patch DVT Ppx: Holding heparin in setting of possible GI bleed Code status: FULL PCP: Jerrod Dispo: Transferred to ICU for management. Discharge planning ordered. Patient seen in collaboration with Dr. Zarate. Please see addendum. Attending Addendum: Delayed entry date of service noted above care coordinated with AUSTIN Padron please refer to her notes for full details, I agree with her notes patient seen and examined, records reviewed by myself as well on exam, patient at the bedside, hypotensive, minimally responsive IV fluid bolus 1 L ordered Code malu was called, patient transferred to ICU VS noted and reviewed Minimally responsive, lethargic, not in distress normal rate, regular rhythm, no murmurs Mild rhonchi bilaterally non distended, soft, nontender no bipedal edema, erythema, warmth Minimally responsive, exam difficult to perform WBC 9.3 Hg 11.1 Crea 1.4 ASSESSMENT AND PLAN Possible septic shock Secondary to underlying influenza plus pneumonia IV fluid bolus ordered On cefepime plus Levaquin, Tamiflu Transfer to ICU for further evaluation management Left lower extremity DVT Heparin on hold secondary to anemia, rule out GI bleed GI consulted, Protonix ordered Plan for EGD Discussed with drop hammer operator helper Dr. Brown and AUSTIN Gomez other diagnoses and plan of care as per AUSTIN Padron's notes Yobani Zarate MD Subjective Initially examined the patient this morning and he was lethargic but responded to questions. Stated that his back and legs hurt but that his breathing was slightly improved with neb treatments. VSS stable at that time, with BP 120/80s. Denies any lightheadedness, chest pain, SOB, nausea, vomiting or abdominal pain. Review of Systems Review of Systems: At least ten systems reviewed and negative except as noted in the HPI. Physical Exam Physical Exam: General Appearance: WD/WN, no apparent distress, lethargic but able to answer questions Head: normocephalic, atraumatic Eyes: normal inspection, PERRL, EOMI ENT: hearing grossly normal, pharynx normal (moist mucous membranes) Neck: supple, no JVD, no adenopathy Respiratory/Chest: lungs clear to auscultation but decreased breath sounds bilaterally. No wheezes or rhonci. No respiratory distress or accessory muscle use Cardiovascular: regular rate, rhythm, no murmur, normal peripheral pulses Abdomen/GI: normal bowel sounds, soft, mildly distended but non-tender to palpation Extremities/Musculoskelatal: normal inspection, no calf tenderness, normal capillary refill, no pedal edema Neurologic/Psych: alert, normal mood/affect, oriented x 3. Chronic left sided weakness Skin: normal color, warm/dry Results & Data Vital Signs (Past 12 Hours) Vital Signs Temp Pulse Pulse Resp BP BP Pulse Ox 10/05/18 08:00 92 H 10/05/18 07:41 37.0 C 94 H 18 128/73 92 10/05/18 07:08 87 16 90 10/05/18 04:26 37.5 C 93 H 20 97/65 L 92 10/04/18 23:28 36.8 C 98 H 20 104/62 95 10/04/18 23:15 108 H Pulse Ox 10/05/18 08:00 10/05/18 07:41 10/05/18 07:08 10/05/18 04:26 10/04/18 23:28 10/04/18 23:15 95 (1) DVT (deep venous thrombosis) Affected thrombotic vein of extremity: unspecified vein of extremity Chronicity: unspecified DVT location: lower extremity Laterality: unspecified laterality Qualified Code(s): I82.409 - Acute embolism and thrombosis of unspecified deep veins of unspecified lower extremity (2) Pneumonia Laterality: unspecified laterality Lung location: unspecified part of lung Pneumonia type: due to unspecified organism Qualified Code(s): J18.9 - Pneumonia, unspecified organism
[2018-10-05] MEDS: OXYCODONE HCL IR 5 MG TAB (IMMEDIATE RELEASE) PO PRN (12:37)
[2018-10-05] MEDS: OSELTAMIVIR PHOSPHATE 75 MG CAP PO SCH ×2 (12:37→20:09)
[2018-10-05] MEDS ORDERED: SODIUM CHLORIDE 0.9% 1000ML 500 ML IV ONE (12:47)
[2018-10-05] MEDS ORDERED: SODIUM CHLORIDE 0.9% 1000ML 1,000 ML IV ONE (13:59)
[2018-10-05] MEDS ORDERED: NALOXONE HCL 0.4 MG/1 ML VIAL/CARP ONE (14:37)
[2018-10-05] MEDS ORDERED: LIDOCAINE 2% JELLY 5 ML TUBE ONE (14:51)
[2018-10-05] MEDS: ALBUMIN 25% 50 ML IV SCH ×6 (14:57→23:30)
[2018-10-05] MEDS ORDERED: LIDOCAINE 2% JELLY 5 ML TUBE EXT ONE (15:03)
[2018-10-05] MEDS ORDERED: NALOXONE HCL 0.4 MG/1 ML VIAL/CARP IV STA (15:04)
--- NOTE | 2018-10-05 15:07 | Critical Care Consultation ---
Date of Consultation October 05, 2018 Assessment & Plan (1) Influenza A: Impression: 1. Sepsis secondary to UTI with urinary retention. 2. Urinary retention with Russo catheter placed and first output was 1400 mL of dark yellow fluid. 3. HIV disease, preserved CD4 count. 4. Fatty liver, alcohol abuse. 5. COPD with active nicotine abuse. 6. Left lower extremity DVT. 7. Influenza A detected on this admission. 8. history of anxiety and depression. 9. recent CVA diagnosed in August 2018. Plan: 1. Patient ultrasound was done at the bedside by me, showing severe urinary retention. 2. Russo catheter placed with 1400 mL of dark air fluid was the Russo was clamped to resume drainage in an hour. 3. I will discontinue amitriptyline due to anticholinergic effect that could result in urinary retention. 4. Continue with cefepime. 5. obtain UA and urine culture. 6. Normal soled 100 mL an hour. 7. Albumin bolus of 50 g. 8. Hold off on his blood pressure medications including amlodipine and metoprolol. 9. Narcan was given, no significant effect. Patient received oxycodone earlier. 10. Discontinue Chantix as the patient is already on nicotine patch. 11. Serial H&H. 12. GI consult for drop in hematocrit. 13. Type and screen. No blood transfusion at this point. 14. Fecal occult blood testing. 15. Continue his antiretroviral therapy. 16. Stop heparin drip. 17. CODE STATUS remains full code. 18. Discontinue Levaquin. 19. Discontinue vancomycin. Thank you for the kind referral, will follow, case discussed with the staff on rounds in details, critical care time spent with patient was 60 minutes including ultrasound time. History of Present Illness Reason for Consultation: Hypertension Requesting Physician: Keyon Sidhu, Dear Dr. Zarate: Thank you for your kind referral of Mr. Higgins to critical care service. This is 53-year-old gentleman with history of HIV, CVA diagnosed in August 2018, history of COPD, depression, peripheral neuropathy secondary to alcoholism, active smoker, DVT in the left lower extremity, presented to the hospital with increasing lethargy accompanied with fever and chills, patient was admitted to the hospital initially and started on broad-spectrum antibiotics for diagnosis of pneumonia. The patient did not have any chest pain or shortness of breath, his cough was nonproductive but he does have occasional cough. He was tested positive for influenza A. The patient did not do well on the floor and he was found to be lethargic and hypotensive transferred to the ICU for further management. The patient earlier received a dose of Lasix as well as oxycodone which is his only medication. He also has been maintained on amlodipine and amitriptyline. The patient did not have any history to give me a review of system as he was lethargic. In the ICU, the patient was given a dose of Narcan without any effect. Ultrasound was done at the bedside which showed distended and enlarged bladder, the liver appeared to be fatty liver and the heart appeared with good contractility although it is borderline. No pericardial fluid. No ascites and his blood pressure recovered only with IV fluid. Attending Physician: Yobani Zarate MD Allergies Allergy/AdvReac Type Severity Reaction Status Date / Time Penicillins Allergy Severe ANAPHYLAXIS Verified 08/28/18 17:00 mivacurium Allergy Intermediate RASH AND Verified 08/28/18 17:00 SKIN PEELING niacin Allergy Intermediate RASH Verified 08/28/18 17:00 Sulfa (Sulfonamide Allergy Unknown "ITCHY Verified 08/28/18 17:00 Antibiotics) RASH" tramadol Allergy Unknown RASH Verified 08/28/18 17:00 shellfish derived AdvReac Intermediate gi symptoms Verified 08/28/18 17:00 topiramate AdvReac Intermediate NAUSEA Verified 08/28/18 17:00 meloxicam AdvReac Unknown GI SYMPTOMS Verified 08/28/18 17:00 Home Medications Home Medications Medication Instructions Recorded Confirmed Type Isentress 400 mg PO BID 06/08/18 10/04/18 History Norvir 100 mg PO BID 06/08/18 10/04/18 History Prezista 600 mg PO BIDM 06/08/18 10/04/18 History Symbicort 2 puff INHALATION Q12H 06/08/18 10/04/18 History albuterol sulfate [ProAir HFA] 2 puff INHALATION Q4 PRN 06/08/18 10/04/18 History amitriptyline 100 mg PO HS 06/08/18 10/04/18 History amlodipine 10 mg PO QAM 06/08/18 10/04/18 History aspirin 81 mg PO QAM 06/08/18 10/04/18 History atorvastatin 20 mg PO QAM 06/08/18 10/04/18 History chlorthalidone 25 mg PO QAM 06/08/18 10/04/18 History clonidine HCl 0.1 mg PO BID 06/08/18 10/04/18 History clopidogrel [Plavix] 75 mg PO QAM 06/08/18 10/04/18 History docusate sodium [Colace] 100 mg PO BID 06/08/18 10/04/18 History dronabinol [Marinol] 10 mg PO BID 06/08/18 10/04/18 History fluoxetine [Prozac] 40 mg PO QAM 06/08/18 10/04/18 History fluticasone propionate [Flonase 2 spray INTRANASAL QAM 06/08/18 10/04/18 History Allergy Relief] folic acid 1 mg PO QAM 06/08/18 10/04/18 History furosemide [Lasix] 20 mg PO DAILY PRN 06/08/18 10/04/18 History metoprolol tartrate 50 mg PO BID 06/08/18 10/04/18 History oxycodone 5 mg PO Q6 PRN 06/08/18 10/04/18 History gabapentin 800 mg PO TID 08/25/18 10/04/18 History Guaifenesin 200mg/5ml 5 ml PO Q6 PRN 10/04/18 10/04/18 History azithromycin 1 - 2 tab PO UD 10/04/18 10/04/18 History benzonatate [Tessalon Perles] 100 mg PO TID PRN 10/04/18 10/04/18 History codeine-guaifenesin [Cheratussin 5 ml PO Q6H PRN 10/04/18 10/04/18 History AC] ipratropium-albuterol 3 ml INHALATION UD 10/04/18 10/04/18 History levetiracetam [Keppra] 750 mg PO BID 10/04/18 10/04/18 History losartan 100 mg PO DAILY 10/04/18 10/04/18 History nystatin 5 ml BUCCAL QID 10/04/18 10/04/18 History omeprazole 20 mg PO DAILY 10/04/18 10/04/18 History ondansetron HCl 4 mg PO TID PRN 10/04/18 10/04/18 History raltegravir [Isentress] 400 mg PO BID 10/04/18 10/04/18 History varenicline [Chantix] 1 mg PO BID 10/04/18 10/04/18 History Patient History Medical History Chronic pain syndrome (Chronic) Tobacco abuse (Chronic) Carotid artery stenosis (Chronic) Complete R ICA occlusion, 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% HIV (human immunodeficiency virus infection) (Chronic) last CD4 count 717 10/2017 Depression (Chronic) Anxiety (Chronic) Polyp of colon (Chronic 12/21/12) Hypertension (Chronic) Dyslipidemia (Chronic) COPD (chronic obstructive pulmonary disease) (Chronic) Migraine (Chronic) History of CVA (cerebrovascular accident) (Chronic) "in setting of right carotid artery thrombosis" Carotid stenosis (Chronic) "03/06/15-SAÚL occlusion, LICA with 50-59% stenosis" AVM (arteriovenous malformation) brain (Chronic) History of alcohol abuse (Chronic) Anal dysplasia (Chronic) Neuropathic pain of both feet (Chronic) Alcohol abuse Pneumonia Surgical History History of colonoscopy (Chronic) History of anal lesion (Chronic) Family History Father Lung cancer Mother Hypertension Brother No pertinent family history Sister No pertinent family history Social History Preferred Language: Afghan Communication Ability: Effective 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 Physical Exam Physical Exam: Borderline blood pressure, heart rate has been maintained, other vital signs are stable, S1-S2 regular rate and rhythm, map is 65, O2 saturation 91%. No JVD, hyperinflated lungs, lungs with distant breath sounds, abdomen is distended abdomen, no edema in the periphery. No skin rash, no oral lesion, edentulous. Neurologically he is moving and responding to verbal and tactile. Results & Data Vital Signs (Past 12 Hours) Vital Signs Temp Pulse Pulse Pulse Resp BP BP 10/05/18 14:22 84 14 10/05/18 13:46 88 57/37 L 10/05/18 12:40 92 H 70/48 L 10/05/18 12:20 36.7 C 92 H 24 79/40 L 10/05/18 11:06 84 16 10/05/18 08:00 92 H 10/05/18 07:41 37.0 C 94 H 18 128/73 10/05/18 07:08 87 16 10/05/18 04:26 37.5 C 93 H 20 97/65 L Pulse Ox 10/05/18 14:22 94 10/05/18 13:46 10/05/18 12:40 10/05/18 12:20 90 10/05/18 11:06 92 10/05/18 08:00 10/05/18 07:41 92 10/05/18 07:08 90 10/05/18 04:26 92 Laboratory Results Labs were reviewed which showed his hematocrit of 30 down from 40 since admission. Diagnostic Findings Reviewed CAT scan of the chest which showed bibasilar groundglass opacities which have been similar to the one from June 2018, COPD changes also noted, there is no evidence of infiltrate to support the diagnosis of pneumonia.
[2018-10-05 15:08] LABS: Hematocrit (blood only) 30.1 % (42-52); Hemoglobin 10.1 g/dL (14.0-18.0)
[2018-10-05 15:28] LABS: Partial Thromboplastin Ratio 1.9
[2018-10-05 15:31] LABS: Partial Thromboplastin Time 51.4 Seconds (21.0-31.0)
[2018-10-05] MEDS: NORMOSOL-R 1,000 ML IV SCH ×2 (15:33→23:07)
[2018-10-05 15:46] LABS: BUN Creatinine Ratio 17.2 (10-20); Calcium 8.4 mg/dl (8.5-10.1); Creatinine Clr Calc Pharmacy 64.4 ml/min; Est GFR (African American) 63.4; Est GFR (Non-African American) 54.7; Potassium 4.3 mmol/L (3.5-5.1)
--- NOTE | 2018-10-05 15:56 | Gastrointestinal Consultation ---
Date of Consultation October 05, 2018 Assessment & Plan (1) Anemia: 53 year old male w/ history of colon CA s/p resection, HIV, CVA on ASA/Plavix, concern for cirrhosis who was admitted w/ weakness, fever, chills dx with pneumonia, DVT, flu-A +. No recent CD4 count. Started on heparin gtt Pt w/ hypotensive episode, change in LOC, code purple was called. Pt was transferred to the ICU, systolic BP improvement w/ albumin and fluid support. No gross evidence of GIB. Heparin gtt was stopped around 1530. - Stop the heparin drip - NPO - Please start IV PPI bolus and drip - Please start IV octreotide bolus and drip - Trend H&H - Monitor and document all GI output - Transfuse PBC PRN protocol for goal HGB 7-8 - Please administer IV reglan 5 mg prior to EGD - We will plan for bedside EGD around 0800 10/06/18 - Acute Hep panel - Verbal consent was obtained from motherHelene Thank you for allowing us to participate in the care of this patient. Please call with any acute changes, questions or concerns. Please see addendum below with additional recommendation from my supervising physician. Present on Admission?: Yes Supervising Physician Co-Signing Physician Notes I have seen and examined the patient and discussed the management with RAOUL Lyel. 53 yo male admitted yesterday for fevers, weakness- thought to have a pna. Transferred to the ICU for change in mental status and hypotension. He is now under ICU level of care. Vitals sig for hypotension off pressors. He is not speaking on examination of him in the ICU, no overt GI bleeding noted, CV - rrr no mrg, Pulm - ctab, abd - slightly distended soft nt nd + Normal lft's yesterday, INR normal, platelets normal, Hgb with albert 3 gram drop, slight bun rise. No overt bleeding. Imaging suggestive of fatty liver, ? cirrhosis on bedside ultrasound per ICU team. Discussed plan of care with ICU team and mom. Plan is for medical stabilization, IV PPI, IV octreotide, prn Reglan if active bleeding (5 mg to clear the stomach). Mom is consenting on his behalf for an egd. Would check a cd 4 count. Will plan for EGD after intubation likely tomorrow morning in the ICU if he remains stable overnight without overt signs of GI bleeding. Will do this more urgently if his condition changes. His mother who consented for him is agreeable to this plan of action. The ICU is also in agreement with this plan. History of Present Illness Reason for Consultation: anemia concern for GIB Requesting Physician: Patricia Attending Physician: Yobani Zarate MD History of Present Illness 53 year old male w/ history of CVA in August 2018, HIV, carotid artery disease, COPD, anxiety, depression, neuropathy, tobacco use, ETOH use, fatty liver w/ concern for cirrhosis, rectal Ca in situ s/p resection colon CA screening up to date who was admitted w/ weakness. Code purple called due to unresponsive episode on the floor, hypotension and pt was transferred to the ICU. Repeat labs w/ 3 pt drop in HGB. GI asked to evaluate. Pt is difficult to arouse, history obtained by chart. No evidence of black/bloody stools/emesis. No fevers since admission. CT without PE. Duplex w/ DVT started on heparin gtt. Bedside US: concerning for cirrhosis CT: fatty liver Colonoscopy: One 12 mm polyp in the transverse colon, removed using injection- lift and a hot snare. Resected and retrieved. Clip was placed.-One 8 mm polyp in the transverse colon, removed with a hot snare. Resected and retrieved.-One 10 mm polyp in the descending colon. Clip was placed.-Diverticulosis in the sigmoid colon.-Internal hemorrhoids.-The examination was otherwise normal on direct and retroflexion views. Allergies Allergy/AdvReac Type Severity Reaction Status Date / Time Penicillins Allergy Severe ANAPHYLAXIS Verified 08/28/18 17:00 mivacurium Allergy Intermediate RASH AND Verified 08/28/18 17:00 SKIN PEELING niacin Allergy Intermediate RASH Verified 08/28/18 17:00 Sulfa (Sulfonamide Allergy Unknown "ITCHY Verified 08/28/18 17:00 Antibiotics) RASH" tramadol Allergy Unknown RASH Verified 08/28/18 17:00 shellfish derived AdvReac Intermediate gi symptoms Verified 08/28/18 17:00 topiramate AdvReac Intermediate NAUSEA Verified 08/28/18 17:00 meloxicam AdvReac Unknown GI SYMPTOMS Verified 08/28/18 17:00 Home Medications Home Medications Medication Instructions Recorded Confirmed Type Isentress 400 mg PO BID 06/08/18 10/04/18 History Norvir 100 mg PO BID 06/08/18 10/04/18 History Prezista 600 mg PO BIDM 06/08/18 10/04/18 History Symbicort 2 puff INHALATION Q12H 06/08/18 10/04/18 History albuterol sulfate [ProAir HFA] 2 puff INHALATION Q4 PRN 06/08/18 10/04/18 History amitriptyline 100 mg PO HS 06/08/18 10/04/18 History amlodipine 10 mg PO QAM 06/08/18 10/04/18 History aspirin 81 mg PO QAM 06/08/18 10/04/18 History atorvastatin 20 mg PO QAM 06/08/18 10/04/18 History chlorthalidone 25 mg PO QAM 06/08/18 10/04/18 History clonidine HCl 0.1 mg PO BID 06/08/18 10/04/18 History clopidogrel [Plavix] 75 mg PO QAM 06/08/18 10/04/18 History docusate sodium [Colace] 100 mg PO BID 06/08/18 10/04/18 History dronabinol [Marinol] 10 mg PO BID 06/08/18 10/04/18 History fluoxetine [Prozac] 40 mg PO QAM 06/08/18 10/04/18 History fluticasone propionate [Flonase 2 spray INTRANASAL QAM 06/08/18 10/04/18 History Allergy Relief] folic acid 1 mg PO QAM 06/08/18 10/04/18 History furosemide [Lasix] 20 mg PO DAILY PRN 06/08/18 10/04/18 History metoprolol tartrate 50 mg PO BID 06/08/18 10/04/18 History oxycodone 5 mg PO Q6 PRN 06/08/18 10/04/18 History gabapentin 800 mg PO TID 08/25/18 10/04/18 History Guaifenesin 200mg/5ml 5 ml PO Q6 PRN 10/04/18 10/04/18 History azithromycin 1 - 2 tab PO UD 10/04/18 10/04/18 History benzonatate [Tessalon Perles] 100 mg PO TID PRN 10/04/18 10/04/18 History codeine-guaifenesin [Cheratussin 5 ml PO Q6H PRN 10/04/18 10/04/18 History AC] ipratropium-albuterol 3 ml INHALATION UD 10/04/18 10/04/18 History levetiracetam [Keppra] 750 mg PO BID 10/04/18 10/04/18 History losartan 100 mg PO DAILY 10/04/18 10/04/18 History nystatin 5 ml BUCCAL QID 10/04/18 10/04/18 History omeprazole 20 mg PO DAILY 10/04/18 10/04/18 History ondansetron HCl 4 mg PO TID PRN 10/04/18 10/04/18 History raltegravir [Isentress] 400 mg PO BID 10/04/18 10/04/18 History varenicline [Chantix] 1 mg PO BID 10/04/18 10/04/18 History Patient History Medical History Chronic pain syndrome (Chronic) Tobacco abuse (Chronic) Carotid artery stenosis (Chronic) Complete R ICA occlusion, 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% HIV (human immunodeficiency virus infection) (Chronic) last CD4 count 717 10/2017 Depression (Chronic) Anxiety (Chronic) Polyp of colon (Chronic 12/21/12) Hypertension (Chronic) Dyslipidemia (Chronic) COPD (chronic obstructive pulmonary disease) (Chronic) Migraine (Chronic) History of CVA (cerebrovascular accident) (Chronic) "in setting of right carotid artery thrombosis" Carotid stenosis (Chronic) "03/06/15-SAÚL occlusion, LICA with 50-59% stenosis" AVM (arteriovenous malformation) brain (Chronic) History of alcohol abuse (Chronic) Anal dysplasia (Chronic) Neuropathic pain of both feet (Chronic) Alcohol abuse Pneumonia Surgical History History of colonoscopy (Chronic) History of anal lesion (Chronic) Family History Father Lung cancer Mother Hypertension Brother No pertinent family history Sister No pertinent family history Social History Preferred Language: Iraqi Communication Ability: Effective Household Personal Assistant Required: No Beliefs That Will Affect Care: None marital status: Current Living Situation: Spouse Other Information That Helps Us Care for You: No Feels Safe at Home: Yes Safety Concerns: Feels Safe At This Time Smoking Status: Current every day smoker Tobacco Type: cigarettes Cigarettes Per Day: 10 Do You Dip or Chew Tobacco: No Second Hand Exposure: Yes Hx Alcohol Use: No Hx Substance Use: No Review of Systems Review of Systems: Unobtainable due to reduced consciousness Physical Exam Constitutional: + ill appearing and average body habitus Respiratory: normal respiratory effort, lungs clear to auscultation Cardiovascular: RRR, no murmur, no edema Gastrointestinal (Abdomen): Inspection/Auscultation: abdomen normal to inspection Percussion/Palpation: abdomen soft; no guarding, abdomen not rigid, no abdominal mass and no ascites Skin: no rashes, warm and dry Results & Data Vital Signs (Past 12 Hours) Vital Signs Temp Pulse Pulse Pulse Resp BP BP 10/05/18 15:45 36.6 C 80 15 69/43 L 10/05/18 15:44 80 19 66/44 L 10/05/18 15:31 89 18 10/05/18 15:15 87 16 75/48 L 10/05/18 15:00 92 H 24 74/45 L 10/05/18 14:22 84 14 10/05/18 13:46 88 10/05/18 12:40 92 H 10/05/18 12:20 36.7 C 92 H 24 10/05/18 11:06 84 16 10/05/18 08:00 92 H 10/05/18 07:41 37.0 C 94 H 18 128/73 10/05/18 07:08 87 16 10/05/18 04:26 37.5 C 93 H 20 BP Pulse Ox 10/05/18 15:45 94 10/05/18 15:44 95 10/05/18 15:31 94 10/05/18 15:15 93 10/05/18 15:00 95 10/05/18 14:22 94 10/05/18 13:46 57/37 L 10/05/18 12:40 70/48 L 10/05/18 12:20 79/40 L 90 10/05/18 11:06 92 10/05/18 08:00 10/05/18 07:41 92 10/05/18 07:08 90 10/05/18 04:26 97/65 L 92 Laboratory Results 10/05/18 10/05/18 10/05/18 Range/Units 15:35 14:52 14:52 WBC (4.8-10.8) K/uL RBC (4.7-6.1) M/uL Hgb (14.0-18.0) g/dL Hct (42-52) % MCV (80-100) fL MCH (25-34) pg MCHC (32-36) g/dL RDW Std Deviation (36.4-46.3) fL RDW Coeff of Tanesha (11.5-14.5) % Plt Count (130-400) K/uL MPV (7.4-10.4) fL APTT (21.0-31.0) Seconds PTT Ratio Sodium 141 (136-145) mmol/L Potassium 4.3 (3.5-5.1) mmol/L Chloride 112 H (98-107) mmol/L Carbon Dioxide 23 (21-32) mmol/L Anion Gap 7.0 (3-11) BUN 25 H (7-18) mg/dl Creatinine 1.44 H D (0.6-1.4) mg/dl Est Cr Clr Drug Dosing 64.4 ml/min Est GFR ( Amer) 63.4 Est GFR (Non-Af Amer) 54.7 BUN/Creatinine Ratio 17.2 (10-20) Glucose 131 H (70-99) mg/dl POC Glucose (70-99) Calcium 8.4 L (8.5-10.1) mg/dl Ammonia 15.1 (11-32) umol/L Procalcitonin (0-0.5) ng/ml Nasal Screen MRSA (PCR) (Negative) Influenza Type A (PCR) (Neg) Influenza Type B (PCR) (Neg) Blood Type Pending Antibody Screen Pending 10/05/18 10/05/18 10/05/18 Range/Units 14:52 14:52 14:13 WBC (4.8-10.8) K/uL RBC (4.7-6.1) M/uL Hgb 10.1 L (14.0-18.0) g/dL Hct 30.1 L (42-52) % MCV (80-100) fL MCH (25-34) pg MCHC (32-36) g/dL RDW Std Deviation (36.4-46.3) fL RDW Coeff of Tanesha (11.5-14.5) % Plt Count (130-400) K/uL MPV (7.4-10.4) fL APTT 51.4 H* (21.0-31.0) Seconds PTT Ratio 1.9 Sodium (136-145) mmol/L Potassium (3.5-5.1) mmol/L Chloride (98-107) mmol/L Carbon Dioxide (21-32) mmol/L Anion Gap (3-11) BUN (7-18) mg/dl Creatinine (0.6-1.4) mg/dl Est Cr Clr Drug Dosing ml/min Est GFR ( Amer) Est GFR (Non-Af Amer) BUN/Creatinine Ratio (10-20) Glucose (70-99) mg/dl POC Glucose 157 H (70-99) Calcium (8.5-10.1) mg/dl Ammonia (11-32) umol/L Procalcitonin (0-0.5) ng/ml Nasal Screen MRSA (PCR) (Negative) Influenza Type A (PCR) (Neg) Influenza Type B (PCR) (Neg) Blood Type Antibody Screen 10/05/18 10/05/18 10/05/18 Range/Units 08:05 02:44 00:59 WBC (4.8-10.8) K/uL RBC (4.7-6.1) M/uL Hgb (14.0-18.0) g/dL Hct (42-52) % MCV (80-100) fL MCH (25-34) pg MCHC (32-36) g/dL RDW Std Deviation (36.4-46.3) fL RDW Coeff of Tanesha (11.5-14.5) % Plt Count (130-400) K/uL MPV (7.4-10.4) fL APTT 37.0 H 33.2 H (21.0-31.0) Seconds PTT Ratio 1.4 1.2 Sodium (136-145) mmol/L Potassium (3.5-5.1) mmol/L Chloride (98-107) mmol/L Carbon Dioxide (21-32) mmol/L Anion Gap (3-11) BUN (7-18) mg/dl Creatinine (0.6-1.4) mg/dl Est Cr Clr Drug Dosing ml/min Est GFR ( Amer) Est GFR (Non-Af Amer) BUN/Creatinine Ratio (10-20) Glucose (70-99) mg/dl POC Glucose (70-99) Calcium (8.5-10.1) mg/dl Ammonia (11-32) umol/L Procalcitonin (0-0.5) ng/ml Nasal Screen MRSA (PCR) Negative (Negative) Influenza Type A (PCR) (Neg) Influenza Type B (PCR) (Neg) Blood Type Antibody Screen 10/05/18 10/05/18 10/04/18 Range/Units 00:59 00:59 19:09 WBC 9.37 (4.8-10.8) K/uL RBC 3.93 L (4.7-6.1) M/uL Hgb 11.1 L (14.0-18.0) g/dL Hct 33.7 L (42-52) % MCV 85.8 (80-100) fL MCH 28.2 (25-34) pg MCHC 32.9 (32-36) g/dL RDW Std Deviation 49.4 H (36.4-46.3) fL RDW Coeff of Tanesha 15.9 H (11.5-14.5) % Plt Count 160 (130-400) K/uL MPV 9.3 (7.4-10.4) fL APTT (21.0-31.0) Seconds PTT Ratio Sodium 137 (136-145) mmol/L Potassium 4.3 (3.5-5.1) mmol/L Chloride 109 H (98-107) mmol/L Carbon Dioxide 24 (21-32) mmol/L Anion Gap 4.0 (3-11) BUN 31 H (7-18) mg/dl Creatinine 0.96 D (0.6-1.4) mg/dl Est Cr Clr Drug Dosing 96.6 ml/min Est GFR ( Amer) 103.4 Est GFR (Non-Af Amer) 89.3 BUN/Creatinine Ratio 32.2 H (10-20) Glucose 115 H (70-99) mg/dl POC Glucose (70-99) Calcium 8.6 (8.5-10.1) mg/dl Ammonia (11-32) umol/L Procalcitonin (0-0.5) ng/ml Nasal Screen MRSA (PCR) (Negative) Influenza Type A (PCR) Pos for Influ A A* (Neg) Influenza Type B (PCR) Neg for Influ B (Neg) Blood Type Antibody Screen 10/04/18 Range/Units 12:46 WBC (4.8-10.8) K/uL RBC (4.7-6.1) M/uL Hgb (14.0-18.0) g/dL Hct (42-52) % MCV (80-100) fL MCH (25-34) pg MCHC (32-36) g/dL RDW Std Deviation (36.4-46.3) fL RDW Coeff of Tanesha (11.5-14.5) % Plt Count (130-400) K/uL MPV (7.4-10.4) fL APTT (21.0-31.0) Seconds PTT Ratio Sodium (136-145) mmol/L Potassium (3.5-5.1) mmol/L Chloride (98-107) mmol/L Carbon Dioxide (21-32) mmol/L Anion Gap (3-11) BUN (7-18) mg/dl Creatinine (0.6-1.4) mg/dl Est Cr Clr Drug Dosing ml/min Est GFR ( Amer) Est GFR (Non-Af Amer) BUN/Creatinine Ratio (10-20) Glucose (70-99) mg/dl POC Glucose (70-99) Calcium (8.5-10.1) mg/dl Ammonia (11-32) umol/L Procalcitonin 0.14 (0-0.5) ng/ml Nasal Screen MRSA (PCR) (Negative) Influenza Type A (PCR) (Neg) Influenza Type B (PCR) (Neg) Blood Type Antibody Screen
[2018-10-05] MEDS ORDERED: NOREPINEPHRINE BIT INJ 8 MG in DEXTROSE 5% 500 ML IV SCH (16:00)
[2018-10-05] MEDS ORDERED: PANTOprazole 80 MG in DEXTROSE 5% 100 ML IV ONE (16:00)
[2018-10-05] MEDS: PANTOprazole 40 MG in DEXTROSE 5% 100 ML IV SCH ×2 (16:28→21:28)
[2018-10-05] MEDS ORDERED: OCTREOTIDE ACETATE 50 MCG in SYRINGE 9.5 ML IV ONE (16:30)
[2018-10-05 16:56] LABS: Appearance Urine Clear (Clear); Bilirubin Urine Negative (Negative); Blood Urine Negative (Negative); Color Urine Yellow; Glucose Urine UA Negative (Negative); Ketones Urine Negative (Negative); Leukocyte Esterase Urine Negative (Negative); Nitrite Urine Negative (Negative); Protein Urine Trace (Negative); Specific Gravity Urine 1.025 (1.000-1.030); Urobilinogen Urine Negative (Negative)
[2018-10-05 17:06] LABS: Amphetamines+Metham, Urine Neg (Neg); Barbiturates, Urine Neg (Neg); Benzodiazepine, Urine Neg (Neg); Cocaine, Urine Neg (Neg); MDMA (Ecstacy), Urine Neg (Neg); Methadone, Urine Neg (Neg); Opiate, Urine Pos (Neg); Phencyclidine, Urine Neg (Neg)
[2018-10-05 17:10] LABS: Bacteria Urine Negative (Negative); Epithelial Cell Urine 0-5 /lpf (0-5); Hyaline Casts Urine 0-5 /lpf (0-5); RBC Urine 0-4 /hpf (0-4); WBC Urine 0-5 /hpf (0-5)
--- NOTE | 2018-10-05 17:21 | XRay Report ---
XR chest 1V portable CLINICAL HISTORY: Chest x-ray status post placement of a right subclavian central venous catheter COMPARISON STUDY: 10/04/2018 FINDINGS: The cardiac images so contours remain stable. There is no failure. There is no focal pulmon kenia consolidation. There are no pleural effusions. There has been interval placement of a right subcl omaira central venous catheter. The tip projects over the superior vena cava. There is no pneumothorax .[ IMPRESSION: No pneumothorax status post placement of a right subclavian central venous catheter. Electronically signed by: Donnie Putnam M.D. 10/05/2018 5:19 PM
[2018-10-05] MEDS: OCTREOTIDE ACETATE 500 MCG in 0.9 % SODIUM CHLORIDE 100 ML IV SCH (17:27)
[2018-10-05] MEDS ORDERED: LEVOFLOXACIN/D5W 750 MG/150 ML BAG IV SCH (18:00)
--- NOTE | 2018-10-05 18:16 | Procedure Note ---
Procedure Note Date of Service October 05, 2018 Note Placement of central line, indication is the patient hypotensive and required pressors despite fluid resuscitation. Consent obtained over the phone from the mother, risk and benefit explained details agreed to the procedure. The patient had the central line placed in the right IJ, under strict sterile field, skin was prepped with chlorhexidine, injected with 5 mL of 1% lidocaine at the right subclavian area, using Seldinger technique, the line was placed to 15 cm, secured with 2 sutures, covered with surgical dressing, all ports were flushed with normal saline, chest x-ray showed the tip of the catheter at the SVC junction, no pneumothorax and no immediate complication, tolerated the procedure very well. Nursing staff provided the timeout earlier appreciate their assistance. Thank you Coding
--- NOTE | 2018-10-05 18:18 | Procedure Note ---
Procedure Note Date of Service October 05, 2018 Note A line was placed in the right radial area, under strict sterile field, the skin was prepped with chlorhexidine, injected with 2 mL of 1% lidocaine, 2 attempts, using Seldinger technique, a catheter was placed and secured with one surgical suture, covered with surgical dressing, A waves noted on the monitor, no immediate complication. The patient was on heparin drip which was stopped over an hour ago. Time off to provide by the nursing staff earlier, appreciate their assistance. Thank you Coding
--- NOTE | 2018-10-05 19:07 | Emergency Department Note ---
Entered by Neema Massey acting as a scribe for Sascha Turner MD History of Present Illness General Chief complaint: Altered Mental Status Stated complaint: agitated Time Seen by Provider: 10/04/18 14:29 Source: patient and RN notes reviewed Mode of arrival: EMS Limitations: no limitations History of Present Illness Provider complaint: AMS Onset (ago): day(s) 1 Maximum Pain Intensity: 9 Associated symptoms: + denies other symptoms and + other (anxiety, nausea, bilateral leg pain) Patient is a 53 year old male presenting to the ED with AMS beginning today. Per nurse, patient had a stroke x2 weeks ago and was recently placed on Chantix x3 days ago. Patient since has been having chest pains, feeling anxious and nauseous. Nurse notes patient is HIV+ and was recently diagnosed with the flu. Patient currently states he is having bilateral leg pain. He lastly notes he does visit PT for the pain. He denies any complaints or concerns at this time Home Medications Home Medications Medication Instructions Recorded Confirmed Type Isentress 400 mg PO BID 06/08/18 10/04/18 History Norvir 100 mg PO BID 06/08/18 10/04/18 History Prezista 600 mg PO BIDM 06/08/18 10/04/18 History Symbicort 2 puff INHALATION Q12H 06/08/18 10/04/18 History albuterol sulfate [ProAir HFA] 2 puff INHALATION Q4 PRN 06/08/18 10/04/18 History amitriptyline 100 mg PO HS 06/08/18 10/04/18 History amlodipine 10 mg PO QAM 06/08/18 10/04/18 History aspirin 81 mg PO QAM 06/08/18 10/04/18 History atorvastatin 20 mg PO QAM 06/08/18 10/04/18 History chlorthalidone 25 mg PO QAM 06/08/18 10/04/18 History clonidine HCl 0.1 mg PO BID 06/08/18 10/04/18 History clopidogrel [Plavix] 75 mg PO QAM 06/08/18 10/04/18 History docusate sodium [Colace] 100 mg PO BID 06/08/18 10/04/18 History dronabinol [Marinol] 10 mg PO BID 06/08/18 10/04/18 History fluoxetine [Prozac] 40 mg PO QAM 06/08/18 10/04/18 History fluticasone propionate [Flonase 2 spray INTRANASAL QAM 06/08/18 10/04/18 History Allergy Relief] folic acid 1 mg PO QAM 06/08/18 10/04/18 History furosemide [Lasix] 20 mg PO DAILY PRN 06/08/18 10/04/18 History metoprolol tartrate 50 mg PO BID 06/08/18 10/04/18 History oxycodone 5 mg PO Q6 PRN 06/08/18 10/04/18 History gabapentin 800 mg PO TID 08/25/18 10/04/18 History Guaifenesin 200mg/5ml 5 ml PO Q6 PRN 10/04/18 10/04/18 History azithromycin 1 - 2 tab PO UD 10/04/18 10/04/18 History benzonatate [Tessalon Perles] 100 mg PO TID PRN 10/04/18 10/04/18 History codeine-guaifenesin [Cheratussin 5 ml PO Q6H PRN 10/04/18 10/04/18 History AC] ipratropium-albuterol 3 ml INHALATION UD 10/04/18 10/04/18 History levetiracetam [Keppra] 750 mg PO BID 10/04/18 10/04/18 History losartan 100 mg PO DAILY 10/04/18 10/04/18 History nystatin 5 ml BUCCAL QID 10/04/18 10/04/18 History omeprazole 20 mg PO DAILY 10/04/18 10/04/18 History ondansetron HCl 4 mg PO TID PRN 10/04/18 10/04/18 History raltegravir [Isentress] 400 mg PO BID 10/04/18 10/04/18 History varenicline [Chantix] 1 mg PO BID 10/04/18 10/04/18 History Allergies Allergy/AdvReac Type Severity Reaction Status Date / Time Penicillins Allergy Severe ANAPHYLAXIS Verified 08/28/18 17:00 mivacurium Allergy Intermediate RASH AND Verified 08/28/18 17:00 SKIN PEELING niacin Allergy Intermediate RASH Verified 08/28/18 17:00 Sulfa (Sulfonamide Allergy Unknown "ITCHY Verified 08/28/18 17:00 Antibiotics) RASH" tramadol Allergy Unknown RASH Verified 08/28/18 17:00 shellfish derived AdvReac Intermediate gi symptoms Verified 08/28/18 17:00 topiramate AdvReac Intermediate NAUSEA Verified 08/28/18 17:00 meloxicam AdvReac Unknown GI SYMPTOMS Verified 08/28/18 17:00 Past Med/Surg History Medical History Chronic pain syndrome (Chronic) Tobacco abuse (Chronic) Carotid artery stenosis (Chronic) Complete R ICA occlusion, 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-59% HIV (human immunodeficiency virus infection) (Chronic) last CD4 count 717 10/2017 Depression (Chronic) Anxiety (Chronic) Polyp of colon (Chronic 12/21/12) Hypertension (Chronic) Dyslipidemia (Chronic) COPD (chronic obstructive pulmonary disease) (Chronic) Migraine (Chronic) History of CVA (cerebrovascular accident) (Chronic) "in setting of right carotid artery thrombosis" Carotid stenosis (Chronic) "03/06/15-SAÚL occlusion, LICA with 50-59% stenosis" AVM (arteriovenous malformation) brain (Chronic) History of alcohol abuse (Chronic) Anal dysplasia (Chronic) Neuropathic pain of both feet (Chronic) Alcohol abuse Pneumonia Surgical History History of colonoscopy (Chronic) History of anal lesion (Chronic) Family History Father Lung cancer Mother Hypertension Brother No pertinent family history Sister No pertinent family history Social History Preferred Language: Kittitian Communication Ability: Effective Defense Attorney Required: No Beliefs That Will Affect Care: None marital status: Current Living Situation: Spouse Other Information That Helps Us Care for You: No Feels Safe at Home: Yes Safety Concerns: Feels Safe At This Time Smoking Status: Current every day smoker Tobacco Type: cigarettes Cigarettes Per Day: 10 Do You Dip or Chew Tobacco: No Second Hand Exposure: Yes Hx Alcohol Use: No Hx Substance Use: No Review of Systems See HPI for pertinent positives & negatives. and A total of 10 systems reviewed and were otherwise negative Physical Exam Vital Signs Vital Signs - 24 hr 10/04/18 20:38 10/04/18 21:21 10/04/18 21:33 Temperature 37.2 C Temperature Source Oral Arterial BP Systolic Arterial BP Diastolic Arterial BP Mean Arterial Pulse Rate Pulse Rate 98 H Pulse Rate [Finger] 93 H 101 H Pulse Rate [Right Brachial] Pulse Rhythm [Finger] Regular Pulse Strength [Finger] Normal Respiratory Rate 20 16 Respiratory Effort / Characteristics Non-Labored Non-Labored Respiratory Depth Normal Respiratory Pattern Regular Blood Pressure Blood Pressure [Left Arm] Blood Pressure [Right Arm] 131/84 Blood Pressure Mean Blood Pressure Mean [Left Arm] Blood Pressure Mean [Right Arm] 99 Blood Pressure Position [Right Arm] Pulse Oximetry 100 93 Pulse Oximetry [Right Index Finger] Oxygen Delivery Method Room Air Room Air Oxygen Delivery Method [Right Index Finger] Oxygen Flow Rate 10/04/18 23:15 10/04/18 23:28 10/05/18 04:26 Temperature 36.8 C 37.5 C Temperature Source Oral Oral Arterial BP Systolic Arterial BP Diastolic Arterial BP Mean Arterial Pulse Rate Pulse Rate 108 H Pulse Rate [Finger] 98 H 93 H Pulse Rate [Right Brachial] Pulse Rhythm [Finger] Pulse Strength [Finger] Respiratory Rate 20 20 Respiratory Effort / Characteristics Non-Labored Spontaneous Respiratory Depth Normal Respiratory Pattern Blood Pressure Blood Pressure [Left Arm] Blood Pressure [Right Arm] 104/62 97/65 L Blood Pressure Mean Blood Pressure Mean [Left Arm] Blood Pressure Mean [Right Arm] 76 75 Blood Pressure Position [Right Arm] Pulse Oximetry 95 92 Pulse Oximetry [Right Index Finger] 95 Oxygen Delivery Method Room Air Room Air Room Air Oxygen Delivery Method [Right Index Finger] Room Air Oxygen Flow Rate 10/05/18 07:08 10/05/18 07:41 10/05/18 08:00 Temperature 37.0 C Temperature Source Oral Arterial BP Systolic Arterial BP Diastolic Arterial BP Mean Arterial Pulse Rate Pulse Rate 92 H Pulse Rate [Finger] 87 94 H Pulse Rate [Right Brachial] Pulse Rhythm [Finger] Pulse Strength [Finger] Respiratory Rate 16 18 Respiratory Effort / Characteristics Non-Labored Spontaneous Respiratory Depth Respiratory Pattern Blood Pressure Blood Pressure [Left Arm] 128/73 Blood Pressure [Right Arm] Blood Pressure Mean Blood Pressure Mean [Left Arm] 91 Blood Pressure Mean [Right Arm] Blood Pressure Position [Right Arm] Pulse Oximetry 90 92 Pulse Oximetry [Right Index Finger] Oxygen Delivery Method Room Air Room Air Oxygen Delivery Method [Right Index Finger] Oxygen Flow Rate 10/05/18 11:06 10/05/18 12:20 10/05/18 12:40 Temperature 36.7 C Temperature Source Oral Arterial BP Systolic Arterial BP Diastolic Arterial BP Mean Arterial Pulse Rate Pulse Rate Pulse Rate [Finger] 84 92 H Pulse Rate [Right Brachial] 92 H Pulse Rhythm [Finger] Pulse Strength [Finger] Respiratory Rate 16 24 Respiratory Effort / Characteristics Non-Labored Spontaneous Respiratory Depth Respiratory Pattern Blood Pressure Blood Pressure [Left Arm] Blood Pressure [Right Arm] 79/40 L 70/48 L Blood Pressure Mean Blood Pressure Mean [Left Arm] Blood Pressure Mean [Right Arm] 53 55 Blood Pressure Position [Right Arm] Pulse Oximetry 92 90 Pulse Oximetry [Right Index Finger] Oxygen Delivery Method Room Air Room Air Oxygen Delivery Method [Right Index Finger] Oxygen Flow Rate 10/05/18 13:46 10/05/18 14:22 10/05/18 15:00 Temperature Temperature Source Arterial BP Systolic Arterial BP Diastolic Arterial BP Mean Arterial Pulse Rate Pulse Rate 92 H Pulse Rate [Finger] 84 Pulse Rate [Right Brachial] 88 Pulse Rhythm [Finger] Pulse Strength [Finger] Respiratory Rate 14 24 Respiratory Effort / Characteristics Non-Labored Spontaneous Respiratory Depth Respiratory Pattern Blood Pressure 74/45 L Blood Pressure [Left Arm] Blood Pressure [Right Arm] 57/37 L Blood Pressure Mean 54 Blood Pressure Mean [Left Arm] Blood Pressure Mean [Right Arm] 43 Blood Pressure Position [Right Arm] Lying Pulse Oximetry 94 95 Pulse Oximetry [Right Index Finger] Oxygen Delivery Method Nasal Cannula Nasal Cannula Oxygen Delivery Method [Right Index Finger] Oxygen Flow Rate 6 10/05/18 15:15 10/05/18 15:31 10/05/18 15:34 Temperature Temperature Source Arterial BP Systolic Arterial BP Diastolic Arterial BP Mean Arterial Pulse Rate Pulse Rate 87 Pulse Rate [Finger] 89 Pulse Rate [Right Brachial] Pulse Rhythm [Finger] Pulse Strength [Finger] Respiratory Rate 16 18 Respiratory Effort / Characteristics Non-Labored Spontaneous Spontaneous Short of Breath Respiratory Depth Normal Respiratory Pattern Regular Blood Pressure 75/48 L Blood Pressure [Left Arm] Blood Pressure [Right Arm] Blood Pressure Mean 57 Blood Pressure Mean [Left Arm] Blood Pressure Mean [Right Arm] Blood Pressure Position [Right Arm] Pulse Oximetry 93 94 Pulse Oximetry [Right Index Finger] Oxygen Delivery Method Nasal Cannula Nasal Cannula Nasal Cannula Oxygen Delivery Method [Right Index Finger] Oxygen Flow Rate 6 5 6 10/05/18 15:44 10/05/18 15:45 10/05/18 16:00 Temperature 36.6 C Temperature Source Arterial BP Systolic Arterial BP Diastolic Arterial BP Mean Arterial Pulse Rate Pulse Rate 80 80 80 Pulse Rate [Finger] Pulse Rate [Right Brachial] Pulse Rhythm [Finger] Pulse Strength [Finger] Respiratory Rate 19 15 17 Respiratory Effort / Characteristics Respiratory Depth Respiratory Pattern Blood Pressure 66/44 L 69/43 L 69/43 L Blood Pressure [Left Arm] Blood Pressure [Right Arm] Blood Pressure Mean 51 51 51 Blood Pressure Mean [Left Arm] Blood Pressure Mean [Right Arm] Blood Pressure Position [Right Arm] Pulse Oximetry 95 94 96 Pulse Oximetry [Right Index Finger] Oxygen Delivery Method Nasal Cannula Nasal Cannula Nasal Cannula Oxygen Delivery Method [Right Index Finger] Oxygen Flow Rate 6 6 6 10/05/18 16:15 10/05/18 16:30 10/05/18 17:30 Temperature Temperature Source Arterial BP Systolic 160 Arterial BP Diastolic 82 Arterial BP Mean 107 Arterial Pulse Rate 67 Pulse Rate 77 72 67 Pulse Rate [Finger] Pulse Rate [Right Brachial] Pulse Rhythm [Finger] Pulse Strength [Finger] Respiratory Rate 16 18 15 Respiratory Effort / Characteristics Respiratory Depth Respiratory Pattern Blood Pressure 83/56 L 93/62 L 125/99 Blood Pressure [Left Arm] Blood Pressure [Right Arm] Blood Pressure Mean 65 72 107 Blood Pressure Mean [Left Arm] Blood Pressure Mean [Right Arm] Blood Pressure Position [Right Arm] Pulse Oximetry 100 100 100 Pulse Oximetry [Right Index Finger] Oxygen Delivery Method Nasal Cannula Nasal Cannula Nasal Cannula Oxygen Delivery Method [Right Index Finger] Oxygen Flow Rate 6 6 6 10/05/18 17:45 10/05/18 18:00 10/05/18 18:15 Temperature Temperature Source Arterial BP Systolic 119 109 108 Arterial BP Diastolic 55 51 52 Arterial BP Mean 73 66 67 Arterial Pulse Rate 83 79 77 Pulse Rate 83 80 77 Pulse Rate [Finger] Pulse Rate [Right Brachial] Pulse Rhythm [Finger] Pulse Strength [Finger] Respiratory Rate 12 12 12 Respiratory Effort / Characteristics Respiratory Depth Respiratory Pattern Blood Pressure 109/75 103/69 105/72 Blood Pressure [Left Arm] Blood Pressure [Right Arm] Blood Pressure Mean 86 80 83 Blood Pressure Mean [Left Arm] Blood Pressure Mean [Right Arm] Blood Pressure Position [Right Arm] Pulse Oximetry 100 99 99 Pulse Oximetry [Right Index Finger] Oxygen Delivery Method Nasal Cannula Nasal Cannula Oxygen Delivery Method [Right Index Finger] Oxygen Flow Rate 6 6 10/05/18 18:30 10/05/18 18:45 10/05/18 19:00 Temperature Temperature Source Arterial BP Systolic 110 120 118 Arterial BP Diastolic 53 56 56 Arterial BP Mean 69 75 74 Arterial Pulse Rate 77 73 78 Pulse Rate 77 73 78 Pulse Rate [Finger] Pulse Rate [Right Brachial] Pulse Rhythm [Finger] Pulse Strength [Finger] Respiratory Rate 12 12 11 L Respiratory Effort / Characteristics Respiratory Depth Respiratory Pattern Blood Pressure 109/72 122/77 114/74 Blood Pressure [Left Arm] Blood Pressure [Right Arm] Blood Pressure Mean 84 92 87 Blood Pressure Mean [Left Arm] Blood Pressure Mean [Right Arm] Blood Pressure Position [Right Arm] Pulse Oximetry 100 100 100 Pulse Oximetry [Right Index Finger] Oxygen Delivery Method Nasal Cannula Oxygen Delivery Method [Right Index Finger] Oxygen Flow Rate 4 GENERAL: Awake, alert, well-appearing, in no acute distress HENT: Normocephalic, atraumatic. Oropharynx unremarkable. EYES: Normal conjunctiva. Sclera non-icteric. NECK: Supple. No nuchal rigidity. FROM. No JVD. RESPIRATORY: Clear to auscultation. Wheezes bilaterally. CARDIAC: Regular rate, normal rhythm. Extremities warm and well perfused. Pulses equal. ABDOMEN: Soft, non-distended. No tenderness to palpation. No rebound or guarding. No masses. RECTAL: Deferred. MUSCULOSKELETAL: Chest examination reveals no tenderness. The back is symmetrical on inspection without obvious abnormality. There is no CVA tenderness to palpation. No joint edema. LOWER EXTREMITIES: Calves are equal size bilaterally and non-tender. No edema. No discoloration. NEURO: Normal sensorium. No sensory or motor deficits noted. SKIN: No rash or jaundice noted. Course 1434: Patient was evaluated in room A02. A full history and physical examination were obtained. Administered Medications Albuterol (Duoneb) 3 ml NEB QIDR [facility] Stop: 11/03/18 20:09 Last Admin: 10/05/18 15:31 Dose: 3 ml Documented by: [id number] Admin: 10/05/18 11:06 Dose: 3 ml Documented by: [id number] Admin: 10/05/18 07:08 Dose: 3 ml Documented by: [id number] Admin: 10/04/18 21:33 Dose: 3 ml Documented by: [id number] Aspirin (Ecotrin Ectab) 81 mg PO QA [facility] Stop: 11/04/18 08:59 Last Admin: 10/05/18 08:31 Dose: 81 mg Documented by: [id number] Atorvastatin Calcium (Lipitor) 20 mg PO [facility] Stop: 11/04/18 08:59 Last Admin: 10/05/18 08:31 Dose: 20 mg Documented by: [id number] Budesonide/Formoterol Fumarate (Symbicort 160mcg/4.5mcg) 2 puffs INH Q12H [facility] Stop: 11/03/18 20:59 Last Admin: 10/05/18 08:28 Dose: 2 puffs Documented by: [id number] Admin: 10/04/18 22:10 Dose: 2 puffs Documented by: [id number] Clopidogrel Bisulfate (Plavix) 75 mg PO [facility] Stop: 11/04/18 08:59 Last Admin: 10/05/18 08:31 Dose: 75 mg Documented by: [id number] [facility] Stop: 11/04/18 07:59 Last Admin: 10/05/18 16:51 Dose: Not Given Documented by: [id number] Admin: 10/05/18 08:27 Dose: 1 ea Documented by: [id number] Docusate Sodium (Colace) 100 mg PO BID [facility] Stop: 11/03/18 20:59 Last Admin: 10/05/18 08:32 Dose: 100 mg Documented by: [id number] Admin: 10/04/18 22:03 Dose: 100 mg Documented by: [id number] Fluoxetine HCl (Prozac) 40 mg PO [facility] Stop: 11/04/18 08:59 Last Admin: 10/05/18 08:31 Dose: 40 mg Documented by: [id number] Fluticasone Propionate (Flonase) 2 sprays FLAVIA [facility] Stop: 11/04/18 08:59 Last Admin: 10/05/18 08:29 Dose: 2 sprays Documented by: [id number] Folic Acid (Folvite) 1 mg PO [facility] Stop: 11/04/18 08:59 Last Admin: 10/05/18 08:31 Dose: 1 mg Documented by: [id number] Cefepime HCl 2,000 mg/ Syringe 20 mls @ 5 mls/min IV Q8H [facility]; Protocol Stop: 10/11/18 17:59 Last Admin: 10/05/18 17:27 Dose: 5 mls/min Documented by: [id number] Admin: 10/05/18 11:02 Dose: 5 mls/min Documented by: [id number] Admin: 10/05/18 01:00 Dose: 5 mls/min Documented by: [id number] Parenteral Electrolytes (Normosol-R) 1,000 mls @ 150 mls/hr IV .Q6H40M [facility] Stop: 11/04/18 15:29 Last Infusion: 10/05/18 19:40 Dose: 150 mls/hr Documented by: [id number] Admin: 10/05/18 15:33 Dose: 100 mls/hr Documented by: [id number] Norepinephrine Bitartrate 8 mg (/ Dextrose) 508 mls @ 0 mls/hr IV .Q0M [facility]; Protocol Stop: 11/04/18 15:59 Last Titration: 10/05/18 19:05 Dose: 0 mcg/kg/min, 0 mls/hr Documented by: [id number] Titration: 10/05/18 18:00 Dose: 0.03 mcg/kg/min, 10.1 mls/hr Documented by: [id number] Titration: 10/05/18 17:33 Dose: 0.04 mcg/kg/min, 13.5 mls/hr Documented by: [id number] Titration: 10/05/18 16:29 Dose: 0.052 mcg/kg/min, 17.6 mls/hr Documented by: [id number] Admin: 10/05/18 16:11 Dose: 0.05 mcg/kg/min, 16.9 mls/hr Documented by: [id number] Cosigned by: [id number] Pantoprazole Sodium 40 mg/ (Dextrose) 100 mls @ 20 mls/hr IV Q5H [facility] Stop: 11/04/18 16:14 Last Admin: 10/05/18 16:28 Dose: 20 mls/hr Documented by: [id number] Octreotide Acetate 500 mcg/ (Sodium Chloride) 105 mls @ 10.5 mls/hr IV .Q10H [facility] Stop: 11/04/18 16:14 Last Admin: 10/05/18 17:27 Dose: 50 mcg/hr, 10.5 mls/hr Documented by: [id number] Levetiracetam (Keppra) 750 mg PO BID [facility] Stop: 11/03/18 20:59 Last Admin: 10/05/18 08:31 Dose: 750 mg Documented by: [id number] Admin: 10/04/18 22:05 Dose: 750 mg Documented by: [id number] Miscellaneous (Remove Nicoderm Patch) 1 ea N/A HS [facility] Stop: 11/03/18 20:59 Last Admin: 10/04/18 22:17 Dose: 1 ea Documented by: [id number] Miscellaneous (Order Awaiting Action) 1 ea N/A QS [facility] Stop: 11/04/18 00:00 Last Admin: 10/05/18 15:33 Dose: Not Given Documented by: [id number] Admin: 10/05/18 08:25 Dose: Not Given Documented by: [id number] Admin: 10/04/18 23:31 Dose: Not Given Documented by: [id number] Nystatin (Mycostatin) 5 ml BUCCAL QID [facility] Stop: 10/14/18 20:59 Last Admin: 10/05/18 16:51 Dose: Not Given Documented by: [id number] Admin: 10/05/18 12:37 Dose: 5 ml Documented by: [id number] Admin: 10/05/18 08:30 Dose: 5 ml Documented by: [id number] Admin: 10/04/18 22:06 Dose: 5 ml Documented by: [id number] Oseltamivir Phosphate (Tamiflu) 75 mg PO BID [facility] Stop: 10/10/18 11:14 Last Admin: 10/05/18 12:37 Dose: 75 mg Documented by: [id number] Raltegravir (Isentress) 400 mg PO BID [facility] Stop: 11/03/18 20:59 Last Admin: 10/05/18 08:27 Dose: 400 mg Documented by: [id number] Admin: 10/04/18 22:11 Dose: 400 mg Documented by: [id number] Ritonavir (Ritonavir) 1 ea PO BIDM [facility] Stop: 11/04/18 07:59 Last Admin: 10/05/18 16:51 Dose: Not Given Documented by: [id number] Admin: 10/05/18 08:28 Dose: 1 ea Documented by: [id number] Discontinued Medications Albuterol (Ventolin 0.083% 2.5mg/3ml) 2.5 mg NEB NOW STA Stop: 10/04/18 14:37 Last Admin: 10/04/18 14:57 Dose: 2.5 mg Documented by: [id number] Albuterol (Ventolin 0.083% 2.5mg/3ml) 2.5 mg NEB NOW STA Stop: 10/04/18 17:37 Last Admin: 10/04/18 18:19 Dose: 2.5 mg Documented by: [id number] Amitriptyline HCl (Elavil) 100 mg PO HS [facility] Stop: 11/03/18 20:59 Last Admin: 10/04/18 22:08 Dose: 100 mg Documented by: [id number] Amlodipine Besylate (Norvasc) 10 mg PO QAM [facility] Stop: 11/04/18 08:59 Last Admin: 10/05/18 08:32 Dose: 10 mg Documented by: [id number] Cefepime HCl (Maxipime) Confirm Administered Dose 2,000 mg .ROUTE .ST-MED ONE Stop: 10/04/18 18:25 Last Admin: 10/04/18 18:25 Dose: 2,000 mg Documented by: [id number] Chlorthalidone (Hygroton) 25 mg PO QAM [facility] Stop: 11/04/18 08:59 Last Admin: 10/05/18 08:33 Dose: 25 mg Documented by: [id number] Clonidine HCl (Catapres) 0.1 mg PO BID [facility] Stop: 11/03/18 20:59 Last Admin: 10/05/18 10:31 Dose: 0.1 mg Documented by: [id number] Admin: 10/04/18 22:17 Dose: 0.1 mg Documented by: [id number] Dronabinol (Marinol) 10 mg PO BID [facility] Stop: 11/03/18 20:59 Last Admin: 10/05/18 10:31 Dose: 10 mg Documented by: [id number] Admin: 10/04/18 22:04 Dose: 10 mg Documented by: [id number] Gabapentin (Neurontin) 800 mg PO TID [facility] Stop: 11/03/18 20:59 Last Admin: 10/05/18 12:37 Dose: 800 mg Documented by: [id number] Admin: 10/05/18 08:31 Dose: 800 mg Documented by: [id number] Admin: 10/04/18 22:03 Dose: 800 mg Documented by: [id number] Heparin Sodium (Porcine) (Heparin Iv Bolus) Confirm Administered Dose 10,000 units .ROUTE .STK-MED ONE Stop: 10/04/18 18:59 Last Admin: 10/04/18 19:04 Dose: 4,000 units Documented by: [id number] Cosigned by: [id number] Heparin Sodium/Dextrose () 1 ea IV Q15M [facility]; Protocol Stop: 10/04/18 21:10 Last Admin: 10/04/18 23:35 Dose: Not Given Documented by: [id number] Admin: 10/04/18 23:35 Dose: Not Given Documented by: [id number] Admin: 10/04/18 23:35 Dose: Not Given Documented by: [id number] Admin: 10/04/18 23:34 Dose: Not Given Documented by: [id number] Admin: 10/04/18 23:33 Dose: Not Given Documented by: [id number] Admin: 10/04/18 23:33 Dose: Not Given Documented by: [id number] Admin: 10/04/18 23:33 Dose: Not Given Documented by: [id number] Admin: 10/04/18 22:38 Dose: Not Given Documented by: [id number] Admin: 10/04/18 21:23 Dose: Not Given Documented by: [id number] Heparin Sodium/Dextrose (Heparin Sodium/Dextrose) Confirm Administered Dose 25,000 units IV .STK-MED ONE Stop: 10/04/18 18:59 Last Admin: 10/04/18 19:03 Dose: 25,000 units Documented by: [id number] Cosigned by: [id number] Hydromorphone HCl (Dilaudid) 0.5 mg IV NOW STA Stop: 10/04/18 16:17 Last Admin: 10/04/18 16:34 Dose: 0.5 mg Documented by: [id number] Sodium Chloride (Nss 1000ml) 1,000 mls @ 999 mls/hr IV .Q1H1M ONE Stop: 10/04/18 16:38 Last Infusion: 10/04/18 17:27 Dose: 0 mls/hr Documented by: [id number] Admin: 10/04/18 16:12 Dose: 999 mls/hr Documented by: [id number] Vancomycin HCl 1,750 mg/ (Sodium Chloride) 535 mls @ 200 mls/hr IV NOW ONE Stop: 10/04/18 20:06 Last Infusion: 10/04/18 21:12 Dose: 0 mls/hr Documented by: [id number] Admin: 10/04/18 18:31 Dose: 200 mls/hr Documented by: [id number] Cefepime HCl 2,000 mg/ Syringe 20 mls @ 5.5 mls/min IV NOW STA Stop: 10/04/18 17:37 Last Admin: 10/04/18 18:26 Dose: Not Given Documented by: [id number] Levofloxacin/Dextrose (Levaquin/D5w) 750 mg in 150 mls @ 100 mls/hr IV NOW STA Stop: 10/04/18 19:03 Last Infusion: 10/04/18 20:40 Dose: 100 mls/hr Documented by: [id number] Admin: 10/04/18 18:25 Dose: 100 mls/hr Documented by: [id number] Heparin Sodium/Dextrose (Heparin Sodium/Dextrose) 25,000 units in 500 mls @ 25 mls/hr IV .Q20H [facility]; Protocol Stop: 11/03/18 20:59 Last Titration: 10/05/18 15:32 Dose: 0 units/hr, 0 mls/hr Documented by: [id number] Cosigned by: [id number] Titration: 10/05/18 15:16 Dose: 1,250 units/hr, 25 mls/hr Documented by: [id number] Cosigned by: [id number] Titration: 10/05/18 09:39 Dose: 1,250 units/hr, 25 mls/hr Documented by: [id number] Cosigned by: [id number] Titration: 10/05/18 07:09 Dose: 1,100 units/hr, 22 mls/hr Documented by: [id number] Cosigned by: [id number] Titration: 10/05/18 02:41 Dose: 1,100 units/hr, 22 mls/hr Documented by: [id number] Cosigned by: [id number] Titration: 10/04/18 23:26 Dose: 950 units/hr, 19 mls/hr Documented by: [id number] Cosigned by: [id number] Admin: 10/04/18 21:59 Dose: 950 units/hr, 19 mls/hr Documented by: [id number] Cosigned by: [id number] Vancomycin HCl 1,250 mg/ (Sodium Chloride) 275 mls @ 125 mls/hr IV Q14H [facility] Stop: 10/12/18 03:59 Last Infusion: 10/05/18 05:26 Dose: 0 mls/hr Documented by: [id number] Admin: 10/05/18 03:15 Dose: 125 mls/hr Documented by: [id number] Heparin Sodium (Porcine) 4,500 (units/ Syringe) 4.5 mls @ 1 mls/min IV ONE ONE Stop: 10/05/18 02:19 Last Admin: 10/05/18 02:40 Dose: 1 mls/min Documented by: [id number] Cosigned by: [id number] Heparin Sodium (Porcine) 4,500 (units/ Syringe) 4.5 mls @ 1 mls/min IV T [id number] [facility] Stop: 10/05/18 09:50 Last Admin: 10/05/18 11:02 Dose: 1 mls/min Documented by: [id number] Cosigned by: [id number] Sodium Chloride (Nss 1000ml) 500 mls @ 999 mls/hr IV .Q31M ONE Stop: 10/05/18 13:17 Last Infusion: 10/05/18 13:44 Dose: 0 mls/hr Documented by: [id number] Admin: 10/05/18 13:14 Dose: 999 mls/hr Documented by: [id number] Sodium Chloride (Nss 1000ml) 1,000 mls @ 999 mls/hr IV .[id number] ONE Stop: 10/05/18 14:59 Last Infusion: 10/05/18 15:27 Dose: 0 mls/hr Documented by: [id number] Admin: 10/05/18 14:24 Dose: 999 mls/hr Documented by: [id number] Albumin Human (Albumin 25%) 50 mls @ 100 mls/hr IV [id number] [facility] Stop: 10/05/18 16:44 Last Infusion: 10/05/18 16:06 Dose: 0 mls/hr Documented by: [id number] Admin: 10/05/18 15:13 Dose: 100 mls/hr Documented by: [id number] Infusion: 10/05/18 15:13 Dose: 100 mls/hr Documented by: [id number] Admin: 10/05/18 15:07 Dose: 100 mls/hr Documented by: [id number] Infusion: 10/05/18 15:07 Dose: 100 mls/hr Documented by: [id number] Admin: 10/05/18 14:58 Dose: 100 mls/hr Documented by: [id number] Infusion: 10/05/18 14:58 Dose: 100 mls/hr Documented by: [id number] Admin: 10/05/18 14:57 Dose: 100 mls/hr Documented by: [id number] Pantoprazole Sodium 80 mg/ (Dextrose) 120 mls @ 480 mls/hr IV ONE ONE Stop: 10/05/18 16:14 Last Infusion: 10/05/18 16:56 Dose: 0 mls/hr Documented by: [id number] Admin: 10/05/18 16:18 Dose: 480 mls/hr Documented by: [id number] Octreotide Acetate 50 mcg/ (Syringe) 10 mls @ 3 mls/min IV NOW ONE Stop: 10/05/18 16:33 Last Admin: 10/05/18 17:27 Dose: 3 mls/min Documented by: [id number] Ioversol (Optiray 320 125ml) 99 ml IV ONCE PRN PRN Reason: Interaction Checking Stop: 10/08/18 16:44 Last Admin: 10/04/18 16:45 Dose: 99 ml Documented by: [id number] Ketorolac Tromethamine (Toradol) 30 mg IV NOW STA Stop: 10/04/18 14:37 Last Admin: 10/04/18 14:57 Dose: 30 mg Documented by: [id number] Lidocaine HCl (Xylocaine Jely 2%) Confirm Administered Dose 5 ml .ROUTE .STK-MED ONE Stop: 10/05/18 14:52 Last Admin: 10/05/18 15:05 Dose: 5 ml Documented by: [id number] Lidocaine HCl (Xylocaine Jely 2%) 5 ml EXT NOW ONE Stop: 10/05/18 15:04 Last Admin: 10/05/18 15:15 Dose: Not Given Documented by: [id number] Losartan Potassium (Cozaar) 100 mg PO DAILY [facility]MA[facility] Stop: 11/04/18 08:59 Last Admin: 10/05/18 08:32 Dose: 100 mg Documented by: [id number] Metoprolol Tartrate (Lopressor) 50 mg PO BID [facility]MAYRA Stop: 11/03/18 20:59 Last Admin: 10/05/18 08:30 Dose: 50 mg Documented by: [id number] Admin: 10/04/18 22:10 Dose: 50 mg Documented by: [id number] Naloxone HCl (Narcan) Confirm Administered Dose 0.4 mg .ROUTE .STK-MED ONE Stop: 10/05/18 14:38 Last Admin: 10/05/18 14:56 Dose: 0.4 mg Documented by: [id number] Naloxone HCl (Narcan) 0.4 mg IV NOW STA Stop: 10/05/18 15:05 Last Admin: 10/05/18 15:15 Dose: Not Given Documented by: [id number] Nicotine (Nicoderm Cq) 21 mg TD NOW STA Stop: 10/04/18 15:39 Last Admin: 10/04/18 16:12 Dose: 21 mg Documented by: [id number] Ondansetron HCl (Zofran) 4 mg IV NOW STA Stop: 10/04/18 16:17 Last Admin: 10/04/18 16:34 Dose: 4 mg Documented by: [id number] Oxycodone HCl (Roxicodone Immediate Rel) 5 mg PO Q6 PRN PRN Reason: Breakthrough Pain Stop: 10/18/18 20:09 Last Admin: 10/05/18 12:37 Dose: 5 mg Documented by: [id number] Admin: 10/04/18 21:03 Dose: 5 mg Documented by: [id number] Pantoprazole Sodium (Protonix) 40 mg PO DAILY OMAYRA Stop: 11/04/18 08:59 Last Admin: 10/05/18 08:30 Dose: 40 mg Documented by: [id number] Varenicline (Chantix) 1 mg PO BID [facility] Stop: 11/03/18 20:59 Last Admin: 10/05/18 08:25 Dose: Not Given Documented by: [id number] Admin: 10/04/18 22:05 Dose: 1 mg Documented by: [id number] Medical Decision Making Differential Diagnosis Differential diagnosis: Etiologies such as metabolic, infection, hypoglycemia, electrolyte abnormalities, cardiac sources, intracerebral event, toxicologic, neurologic, as well as others were entertained. Medical Records Attestation: I reviewed the patient's medical records. Home Medications Current Medication List: was personally reviewed by me Laboratory Data Attestation: I reviewed the patient's lab results. Result diagrams: 10/05/18 14:52 10/05/18 14:52 Lab Results 04/23/19 04/23/19 04/23/19 Range/Units 12:46 12:46 12:46 WBC 15.55 H (4.8-10.8) K/uL RBC 4.69 L (4.7-6.1) M/uL Hgb 13.5 L (14.0-18.0) g/dL Hct 40.3 L (42-52) % MCV 85.9 (80-100) fL MCH 28.8 (25-34) pg MCHC 33.5 (32-36) g/dL RDW Std Deviation 48.7 H (36.4-46.3) fL RDW Coeff of Tanesha 15.9 H (11.5-14.5) % Plt Count 208 (130-400) K/uL MPV 10.3 (7.4-10.4) fL Immature Gran % (Auto) 0.6 % Neut % (Auto) 64.0 % Lymph % (Auto) 22.8 % [place] % (Auto) 11.5 % Eos % (Auto) 0.8 % Baso % (Auto) 0.3 % Immature Gran # (Auto) 0.09 H (0.00-0.02) K/uL Neut # (Auto) 9.96 H (1.4-6.5) K/uL Lymph # (Auto) 3.55 H (1.2-3.4) K/uL [place] # (Auto) 1.79 H (0.11-0.59) K/uL Eos # (Auto) 0.12 (0-0.5) K/uL Baso # (Auto) 0.04 (0-0.2) K/uL PT 9.8 (9.0-12.0) Seconds INR 1.0 (0.9-1.1) APTT 25.1 (21.0-31.0) Seconds PTT Ratio 0.9 Sodium 135 L (136-145) mmol/L Potassium 4.7 (3.5-5.1) mmol/L Chloride 104 (98-107) mmol/L Carbon Dioxide 25 (21-32) mmol/L Anion Gap 6.0 (3-11) BUN 41 H (7-18) mg/dl Creatinine 1.38 (0.6-1.4) mg/dl Est Cr Clr Drug Dosing 67.2 ml/min Est GFR ( Amer) 66.7 Est GFR (Non-Af Amer) 57.6 BUN/Creatinine Ratio 29.5 H (10-20) Glucose 105 H (70-99) mg/dl POC Glucose (70-99) Calcium 9.4 (8.5-10.1) mg/dl Magnesium 2.6 H (1.8-2.4) mg/dl Total Bilirubin 0.7 (0.2-1) mg/dl AST 20 (15-37) U/L ALT 51 (12-78) U/L Alkaline Phosphatase 125 H (45-117) U/L Ammonia (11-32) umol/L Total Creatine Kinase (39-308) U/L CK-MB (CK-2) (0.5-3.6) ng/ml CK/CKMB % Calc (0-3.0) Troponin I < 0.015 (0-0.045) ng/ml Total Protein 8.0 (6.4-8.2) gm/dl Albumin 3.9 (3.4-5.0) gm/dl Globulin 4.1 H (2.5-4.0) gm/dl Albumin/Globulin Ratio 1.0 (0.9-2) Procalcitonin (0-0.5) ng/ml TSH 0.227 L (0.300-4.500) uIu/ml Urine Color Urine Appearance (Clear) Urine pH (4.5-7.5) Ur Specific [place] (1.000-1.030) Urine Protein (Negative) Urine Glucose (UA) (Negative) Urine Ketones (Negative) Urine Blood (Negative) Urine Nitrite (Negative) Urine Bilirubin (Negative) Urine Urobilinogen (Negative) Ur Leukocyte Esterase (Negative) Urine RBC (0-4) /hpf Urine WBC (0-5) /hpf Ur Epithelial Cells (0-5) /lpf Urine Bacteria (Negative) Hyaline Casts (0-5) /lpf Nasal Screen MRSA (PCR) (Negative) Urine Opiates Screen (Neg) Ur Methadone, Qual (Neg) Urine Barbiturates (Neg) Ur Phencyclidine (PCP) (Neg) U Amphetamin/Meth Scrn (Neg) MDMA (Ecstasy) Screen (Neg) U Benzodiazepines Scrn (Neg) Ur Cocaine Metabolite (Neg) U Marijuana (THC) Screen (Neg) Ethyl Alcohol mg/dL (0-3) mg/dl Influenza Type A (PCR) (Neg) Influenza Type B (PCR) (Neg) Blood Type Antibody Screen 10/04/18 10/04/18 10/04/18 Range/Units 12:46 12:46 14:41 WBC (4.8-10.8) K/uL RBC (4.7-6.1) M/uL Hgb (14.0-18.0) g/dL Hct (42-52) % MCV (80-100) fL MCH (25-34) pg MCHC (32-36) g/dL RDW Std Deviation (36.4-46.3) fL RDW Coeff of Tanesha (11.5-14.5) % Plt Count (130-400) K/uL MPV (7.4-10.4) fL Immature Gran % (Auto) % Neut % (Auto) % Lymph % (Auto) % [place] % (Auto) % Eos % (Auto) % Baso % (Auto) % Immature Gran # (Auto) (0.00-0.02) K/uL Neut # (Auto) (1.4-6.5) K/uL Lymph # (Auto) (1.2-3.4) K/uL [place] # (Auto) (0.11-0.59) K/uL Eos # (Auto) (0-0.5) K/uL Baso # (Auto) (0-0.2) K/uL PT (9.0-12.0) Seconds INR (0.9-1.1) APTT (21.0-31.0) Seconds PTT Ratio Sodium (136-145) mmol/L Potassium (3.5-5.1) mmol/L Chloride (98-107) mmol/L Carbon Dioxide (21-32) mmol/L Anion Gap (3-11) BUN (7-18) mg/dl Creatinine (0.6-1.4) mg/dl Est Cr Clr Drug Dosing ml/min Est GFR ( Amer) Est GFR (Non-Af Amer) BUN/Creatinine Ratio (10-20) Glucose (70-99) mg/dl POC Glucose (70-99) Calcium (8.5-10.1) mg/dl Magnesium (1.8-2.4) mg/dl Total Bilirubin (0.2-1) mg/dl AST (15-37) U/L ALT (12-78) U/L Alkaline Phosphatase (45-117) U/L Ammonia (11-32) umol/L Total Creatine Kinase 150 (39-308) U/L CK-MB (CK-2) 1.8 (0.5-3.6) ng/ml CK/CKMB % Calc 1.2 (0-3.0) Troponin I (0-0.045) ng/ml Total Protein (6.4-8.2) gm/dl Albumin (3.4-5.0) gm/dl Globulin (2.5-4.0) gm/dl Albumin/Globulin Ratio (0.9-2) Procalcitonin 0.14 (0-0.5) ng/ml TSH (0.300-4.500) uIu/ml Urine Color Urine Appearance (Clear) Urine pH (4.5-7.5) Ur Specific [place] (1.000-1.030) Urine Protein (Negative) Urine Glucose (UA) (Negative) Urine Ketones (Negative) Urine Blood (Negative) Urine Nitrite (Negative) Urine Bilirubin (Negative) Urine Urobilinogen (Negative) Ur Leukocyte Esterase (Negative) Urine RBC (0-4) /hpf Urine WBC (0-5) /hpf Ur Epithelial Cells (0-5) /lpf Urine Bacteria (Negative) Hyaline Casts (0-5) /lpf Nasal Screen MRSA (PCR) (Negative) Urine Opiates Screen (Neg) Ur Methadone, Qual (Neg) Urine Barbiturates (Neg) Ur Phencyclidine (PCP) (Neg) U Amphetamin/Meth Scrn (Neg) MDMA (Ecstasy) Screen (Neg) U Benzodiazepines Scrn (Neg) Ur Cocaine Metabolite (Neg) U Marijuana (THC) Screen (Neg) Ethyl Alcohol mg/dL < 3.0 (0-3) mg/dl Influenza Type A (PCR) (Neg) Influenza Type B (PCR) (Neg) Blood Type Antibody Screen 10/04/18 10/05/18 10/05/18 Range/Units 19:09 00:59 00:59 WBC 9.37 (4.8-10.8) K/uL RBC 3.93 L (4.7-6.1) M/uL Hgb 11.1 L (14.0-18.0) g/dL Hct 33.7 L (42-52) % MCV 85.8 (80-100) fL MCH 28.2 (25-34) pg MCHC 32.9 (32-36) g/dL RDW Std Deviation 49.4 H (36.4-46.3) fL RDW Coeff of Tanesha 15.9 H (11.5-14.5) % Plt Count 160 (130-400) K/uL MPV 9.3 (7.4-10.4) fL Immature Gran % (Auto) % Neut % (Auto) % Lymph % (Auto) % [place] % (Auto) % Eos % (Auto) % Baso % (Auto) % Immature Gran # (Auto) (0.00-0.02) K/uL Neut # (Auto) (1.4-6.5) K/uL Lymph # (Auto) (1.2-3.4) K/uL [place] # (Auto) (0.11-0.59) K/uL Eos # (Auto) (0-0.5) K/uL Baso # (Auto) (0-0.2) K/uL PT (9.0-12.0) Seconds INR (0.9-1.1) APTT (21.0-31.0) Seconds PTT Ratio Sodium 137 (136-145) mmol/L Potassium 4.3 (3.5-5.1) mmol/L Chloride 109 H (98-107) mmol/L Carbon Dioxide 24 (21-32) mmol/L Anion Gap 4.0 (3-11) BUN 31 H (7-18) mg/dl Creatinine 0.96 D (0.6-1.4) mg/dl Est Cr Clr Drug Dosing 96.6 ml/min Est GFR ( Amer) 103.4 Est GFR (Non-Af Amer) 89.3 BUN/Creatinine Ratio 32.2 H (10-20) Glucose 115 H (70-99) mg/dl POC Glucose (70-99) Calcium 8.6 (8.5-10.1) mg/dl Magnesium (1.8-2.4) mg/dl Total Bilirubin (0.2-1) mg/dl AST (15-37) U/L ALT (12-78) U/L Alkaline Phosphatase (45-117) U/L Ammonia (11-32) umol/L Total Creatine Kinase (39-308) U/L CK-MB (CK-2) (0.5-3.6) ng/ml CK/CKMB % Calc (0-3.0) Troponin I (0-0.045) ng/ml Total Protein (6.4-8.2) gm/dl Albumin (3.4-5.0) gm/dl Globulin (2.5-4.0) gm/dl Albumin/Globulin Ratio (0.9-2) Procalcitonin (0-0.5) ng/ml TSH (0.300-4.500) uIu/ml Urine Color Urine Appearance (Clear) Urine pH (4.5-7.5) Ur Specific [place] (1.000-1.030) Urine Protein (Negative) Urine Glucose (UA) (Negative) Urine Ketones (Negative) Urine Blood (Negative) Urine Nitrite (Negative) Urine Bilirubin (Negative) Urine Urobilinogen (Negative) Ur Leukocyte Esterase (Negative) Urine RBC (0-4) /hpf Urine WBC (0-5) /hpf Ur Epithelial Cells (0-5) /lpf Urine Bacteria (Negative) Hyaline Casts (0-5) /lpf Nasal Screen MRSA (PCR) (Negative) Urine Opiates Screen (Neg) Ur Methadone, Qual (Neg) Urine Barbiturates (Neg) Ur Phencyclidine (PCP) (Neg) U Amphetamin/Meth Scrn (Neg) MDMA (Ecstasy) Screen (Neg) U Benzodiazepines Scrn (Neg) Ur Cocaine Metabolite (Neg) U Marijuana (THC) Screen (Neg) Ethyl Alcohol mg/dL (0-3) mg/dl Influenza Type A (PCR) Pos for Influ A A* (Neg) Influenza Type B (PCR) Neg for Influ B (Neg) Blood Type Antibody Screen 10/05/18 10/05/18 10/05/18 Range/Units 00:59 02:44 08:05 WBC (4.8-10.8) K/uL RBC (4.7-6.1) M/uL Hgb (14.0-18.0) g/dL Hct (42-52) % MCV (80-100) fL MCH (25-34) pg MCHC (32-36) g/dL RDW Std Deviation (36.4-46.3) fL RDW Coeff of Tanesha (11.5-14.5) % Plt Count (130-400) K/uL MPV (7.4-10.4) fL Immature Gran % (Auto) % Neut % (Auto) % Lymph % (Auto) % [place] % (Auto) % Eos % (Auto) % Baso % (Auto) % Immature Gran # (Auto) (0.00-0.02) K/uL Neut # (Auto) (1.4-6.5) K/uL Lymph # (Auto) (1.2-3.4) K/uL [place] # (Auto) (0.11-0.59) K/uL Eos # (Auto) (0-0.5) K/uL Baso # (Auto) (0-0.2) K/uL PT (9.0-12.0) Seconds INR (0.9-1.1) APTT 33.2 H 37.0 H (21.0-31.0) Seconds PTT Ratio 1.2 1.4 Sodium (136-145) mmol/L Potassium (3.5-5.1) mmol/L Chloride (98-107) mmol/L Carbon Dioxide (21-32) mmol/L Anion Gap (3-11) BUN (7-18) mg/dl Creatinine (0.6-1.4) mg/dl Est Cr Clr Drug Dosing ml/min Est GFR ( Amer) Est GFR (Non-Af Amer) BUN/Creatinine Ratio (10-20) Glucose (70-99) mg/dl POC Glucose (70-99) Calcium (8.5-10.1) mg/dl Magnesium (1.8-2.4) mg/dl Total Bilirubin (0.2-1) mg/dl AST (15-37) U/L ALT (12-78) U/L Alkaline Phosphatase (45-117) U/L Ammonia (11-32) umol/L Total Creatine Kinase (39-308) U/L CK-MB (CK-2) (0.5-3.6) ng/ml CK/CKMB % Calc (0-3.0) Troponin I (0-0.045) ng/ml Total Protein (6.4-8.2) gm/dl Albumin (3.4-5.0) gm/dl Globulin (2.5-4.0) gm/dl Albumin/Globulin Ratio (0.9-2) Procalcitonin (0-0.5) ng/ml TSH (0.300-4.500) uIu/ml Urine Color Urine Appearance (Clear) Urine pH (4.5-7.5) Ur Specific [place] (1.000-1.030) Urine Protein (Negative) Urine Glucose (UA) (Negative) Urine Ketones (Negative) Urine Blood (Negative) Urine Nitrite (Negative) Urine Bilirubin (Negative) Urine Urobilinogen (Negative) Ur Leukocyte Esterase (Negative) Urine RBC (0-4) /hpf Urine WBC (0-5) /hpf Ur Epithelial Cells (0-5) /lpf Urine Bacteria (Negative) Hyaline Casts (0-5) /lpf Nasal Screen MRSA (PCR) Negative (Negative) Urine Opiates Screen (Neg) Ur Methadone, Qual (Neg) Urine Barbiturates (Neg) Ur Phencyclidine (PCP) (Neg) U Amphetamin/Meth Scrn (Neg) MDMA (Ecstasy) Screen (Neg) U Benzodiazepines Scrn (Neg) Ur Cocaine Metabolite (Neg) U Marijuana (THC) Screen (Neg) Ethyl Alcohol mg/dL (0-3) mg/dl Influenza Type A (PCR) (Neg) Influenza Type B (PCR) (Neg) Blood Type Antibody Screen 10/05/18 10/05/18 10/05/18 Range/Units 14:13 14:52 14:52 WBC (4.8-10.8) K/uL RBC (4.7-6.1) M/uL Hgb 10.1 L (14.0-18.0) g/dL Hct 30.1 L (42-52) % MCV (80-100) fL MCH (25-34) pg MCHC (32-36) g/dL RDW Std Deviation (36.4-46.3) fL RDW Coeff of Tanesha (11.5-14.5) % Plt Count (130-400) K/uL MPV (7.4-10.4) fL Immature Gran % (Auto) % Neut % (Auto) % Lymph % (Auto) % [place] % (Auto) % Eos % (Auto) % Baso % (Auto) % Immature Gran # (Auto) (0.00-0.02) K/uL Neut # (Auto) (1.4-6.5) K/uL Lymph # (Auto) (1.2-3.4) K/uL [place] # (Auto) (0.11-0.59) K/uL Eos # (Auto) (0-0.5) K/uL Baso # (Auto) (0-0.2) K/uL PT (9.0-12.0) Seconds INR (0.9-1.1) APTT 51.4 H* (21.0-31.0) Seconds PTT Ratio 1.9 Sodium (136-145) mmol/L Potassium (3.5-5.1) mmol/L Chloride (98-107) mmol/L Carbon Dioxide (21-32) mmol/L Anion Gap (3-11) BUN (7-18) mg/dl Creatinine (0.6-1.4) mg/dl Est Cr Clr Drug Dosing ml/min Est GFR ( Amer) Est GFR (Non-Af Amer) BUN/Creatinine Ratio (10-20) Glucose (70-99) mg/dl POC Glucose 157 H (70-99) Calcium (8.5-10.1) mg/dl Magnesium (1.8-2.4) mg/dl Total Bilirubin (0.2-1) mg/dl AST (15-37) U/L ALT (12-78) U/L Alkaline Phosphatase (45-117) U/L Ammonia (11-32) umol/L Total Creatine Kinase (39-308) U/L CK-MB (CK-2) (0.5-3.6) ng/ml CK/CKMB % Calc (0-3.0) Troponin I (0-0.045) ng/ml Total Protein (6.4-8.2) gm/dl Albumin (3.4-5.0) gm/dl Globulin (2.5-4.0) gm/dl Albumin/Globulin Ratio (0.9-2) Procalcitonin (0-0.5) ng/ml TSH (0.300-4.500) uIu/ml Urine Color Urine Appearance (Clear) Urine pH (4.5-7.5) Ur Specific [place] (1.000-1.030) Urine Protein (Negative) Urine Glucose (UA) (Negative) Urine Ketones (Negative) Urine Blood (Negative) Urine Nitrite (Negative) Urine Bilirubin (Negative) Urine Urobilinogen (Negative) Ur Leukocyte Esterase (Negative) Urine RBC (0-4) /hpf Urine WBC (0-5) /hpf Ur Epithelial Cells (0-5) /lpf Urine Bacteria (Negative) Hyaline Casts (0-5) /lpf Nasal Screen MRSA (PCR) (Negative) Urine Opiates Screen (Neg) Ur Methadone, Qual (Neg) Urine Barbiturates (Neg) Ur Phencyclidine (PCP) (Neg) U Amphetamin/Meth Scrn (Neg) MDMA (Ecstasy) Screen (Neg) U Benzodiazepines Scrn (Neg) Ur Cocaine Metabolite (Neg) U Marijuana (THC) Screen (Neg) Ethyl Alcohol mg/dL (0-3) mg/dl Influenza Type A (PCR) (Neg) Influenza Type B (PCR) (Neg) Blood Type Antibody Screen 10/05/18 10/05/18 10/05/18 Range/Units 14:52 14:52 15:35 WBC (4.8-10.8) K/uL RBC (4.7-6.1) M/uL Hgb (14.0-18.0) g/dL Hct (42-52) % MCV (80-100) fL MCH (25-34) pg MCHC (32-36) g/dL RDW Std Deviation (36.4-46.3) fL RDW Coeff of Tanesha (11.5-14.5) % Plt Count (130-400) K/uL MPV (7.4-10.4) fL Immature Gran % (Auto) % Neut % (Auto) % Lymph % (Auto) % [place] % (Auto) % Eos % (Auto) % Baso % (Auto) % Immature Gran # (Auto) (0.00-0.02) K/uL Neut # (Auto) (1.4-6.5) K/uL Lymph # (Auto) (1.2-3.4) K/uL [place] # (Auto) (0.11-0.59) K/uL Eos # (Auto) (0-0.5) K/uL Baso # (Auto) (0-0.2) K/uL PT (9.0-12.0) Seconds INR (0.9-1.1) APTT (21.0-31.0) Seconds PTT Ratio Sodium 141 (136-145) mmol/L Potassium 4.3 (3.5-5.1) mmol/L Chloride 112 H (98-107) mmol/L Carbon Dioxide 23 (21-32) mmol/L Anion Gap 7.0 (3-11) BUN 25 H (7-18) mg/dl Creatinine 1.44 H D (0.6-1.4) mg/dl Est Cr Clr Drug Dosing 64.4 ml/min Est GFR ( Amer) 63.4 Est GFR (Non-Af Amer) 54.7 BUN/Creatinine Ratio 17.2 (10-20) Glucose 131 H (70-99) mg/dl POC Glucose (70-99) Calcium 8.4 L (8.5-10.1) mg/dl Magnesium (1.8-2.4) mg/dl Total Bilirubin (0.2-1) mg/dl AST (15-37) U/L ALT (12-78) U/L Alkaline Phosphatase (45-117) U/L Ammonia 15.1 (11-32) umol/L Total Creatine Kinase (39-308) U/L CK-MB (CK-2) (0.5-3.6) ng/ml CK/CKMB % Calc (0-3.0) Troponin I (0-0.045) ng/ml Total Protein (6.4-8.2) gm/dl Albumin (3.4-5.0) gm/dl Globulin (2.5-4.0) gm/dl Albumin/Globulin Ratio (0.9-2) Procalcitonin (0-0.5) ng/ml TSH (0.300-4.500) uIu/ml Urine Color Urine Appearance (Clear) Urine pH (4.5-7.5) Ur Specific [place] (1.000-1.030) Urine Protein (Negative) Urine Glucose (UA) (Negative) Urine Ketones (Negative) Urine Blood (Negative) Urine Nitrite (Negative) Urine Bilirubin (Negative) Urine Urobilinogen (Negative) Ur Leukocyte Esterase (Negative) Urine RBC (0-4) /hpf Urine WBC (0-5) /hpf Ur Epithelial Cells (0-5) /lpf Urine Bacteria (Negative) Hyaline Casts (0-5) /lpf Nasal Screen MRSA (PCR) (Negative) Urine Opiates Screen (Neg) Ur Methadone, Qual (Neg) Urine Barbiturates (Neg) Ur Phencyclidine (PCP) (Neg) U Amphetamin/Meth Scrn (Neg) MDMA (Ecstasy) Screen (Neg) U Benzodiazepines Scrn (Neg) Ur Cocaine Metabolite (Neg) U Marijuana (THC) Screen (Neg) Ethyl Alcohol mg/dL (0-3) mg/dl Influenza Type A (PCR) (Neg) Influenza Type B (PCR) (Neg) Blood Type A Positive Antibody Screen NEGATIVE 10/05/18 10/05/18 Range/Units Unknown Unknown WBC (4.8-10.8) K/uL RBC (4.7-6.1) M/uL Hgb (14.0-18.0) g/dL Hct (42-52) % MCV (80-100) fL MCH (25-34) pg MCHC (32-36) g/dL RDW Std Deviation (36.4-46.3) fL RDW Coeff of Tanesha (11.5-14.5) % Plt Count (130-400) K/uL MPV (7.4-10.4) fL Immature Gran % (Auto) % Neut % (Auto) % Lymph % (Auto) % [place] % (Auto) % Eos % (Auto) % Baso % (Auto) % Immature Gran # (Auto) (0.00-0.02) K/uL Neut # (Auto) (1.4-6.5) K/uL Lymph # (Auto) (1.2-3.4) K/uL [place] # (Auto) (0.11-0.59) K/uL Eos # (Auto) (0-0.5) K/uL Baso # (Auto) (0-0.2) K/uL PT (9.0-12.0) Seconds INR (0.9-1.1) APTT (21.0-31.0) Seconds PTT Ratio Sodium (136-145) mmol/L Potassium (3.5-5.1) mmol/L Chloride (98-107) mmol/L Carbon Dioxide (21-32) mmol/L Anion Gap (3-11) BUN (7-18) mg/dl Creatinine (0.6-1.4) mg/dl Est Cr Clr Drug Dosing ml/min Est GFR ( Amer) Est GFR (Non-Af Amer) BUN/Creatinine Ratio (10-20) Glucose (70-99) mg/dl POC Glucose (70-99) Calcium (8.5-10.1) mg/dl Magnesium (1.8-2.4) mg/dl Total Bilirubin (0.2-1) mg/dl AST (15-37) U/L ALT (12-78) U/L Alkaline Phosphatase (45-117) U/L Ammonia (11-32) umol/L Total Creatine Kinase (39-308) U/L CK-MB (CK-2) (0.5-3.6) ng/ml CK/CKMB % Calc (0-3.0) Troponin I (0-0.045) ng/ml Total Protein (6.4-8.2) gm/dl Albumin (3.4-5.0) gm/dl Globulin (2.5-4.0) gm/dl Albumin/Globulin Ratio (0.9-2) Procalcitonin (0-0.5) ng/ml TSH (0.300-4.500) uIu/ml Urine Color Yellow Urine Appearance Clear (Clear) Urine pH 6.0 (4.5-7.5) Ur Specific [place] 1.025 (1.000-1.030) Urine Protein Trace H (Negative) Urine Glucose (UA) Negative (Negative) Urine Ketones Negative (Negative) Urine Blood Negative (Negative) Urine Nitrite Negative (Negative) Urine Bilirubin Negative (Negative) Urine Urobilinogen Negative (Negative) Ur Leukocyte Esterase Negative (Negative) Urine RBC 0-4 (0-4) /hpf Urine WBC 0-5 (0-5) /hpf Ur Epithelial Cells 0-5 (0-5) /lpf Urine Bacteria Negative (Negative) Hyaline Casts 0-5 (0-5) /lpf Nasal Screen MRSA (PCR) (Negative) Urine Opiates Screen Pos H (Neg) Ur Methadone, Qual Neg (Neg) Urine Barbiturates Neg (Neg) Ur Phencyclidine (PCP) Neg (Neg) U Amphetamin/Meth Scrn Neg (Neg) MDMA (Ecstasy) Screen Neg (Neg) U Benzodiazepines Scrn Neg (Neg) Ur Cocaine Metabolite Neg (Neg) U Marijuana (THC) Screen Pos H (Neg) Ethyl Alcohol mg/dL (0-3) mg/dl Influenza Type A (PCR) (Neg) Influenza Type B (PCR) (Neg) Blood Type Antibody Screen Imaging Data Radiologist's Impression: VENOUS DOPPLER ULTRASOUND LOWER EXTREMITIES BILATERAL CLINICAL HISTORY: Bilateral leg pain COMPARISON STUDY: November 17, 2016 FINDINGS: On the right, no thrombus was visualized within the common femoral superficial femoral or popliteal veins. There was normal color-flow the proximal trifurcation veins of the right calf. In the left, there was nonocclusive thrombus within the distal superficial femoral vein and popliteal vein. The DVT appears acute. Superficial thrombus was also visualized within penetrating veins of the popliteal fossa. IMPRESSION: 1. Acute left lower extremity DVT with involvement of the superficial femoral and popliteal veins 2. No evidence of right lower extremity DVT Electronically signed by: Donnie Putnam M.D. 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 No acute fracture or dislocation. 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 Degenerative changes noted about the lower lumbar spine. Vascular calcifications of the pelvis. IMPRESSION: 1. No acute fracture or dislocation. 2. 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 3. 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 No associated articular collapse. The above report was generated using voice recognition software. It may contain grammatical, syntax or spelling errors. Electronically signed by: Khoa Trevizo M.D. 10/04/2018 3:35 PM XR femur RT 2V routine CLINICAL HISTORY: Right leg pain COMPARISON: None. DISCUSSION: No fractures are visualized. There is probable AVN of the right femoral head. IMPRESSION: 1. 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 No acute fractures Electronically signed by: Donnie Putnam M.D. 10/04/2018 3:56 PM XR femur LT 2V routine CLINICAL HISTORY: Left femur pain COMPARISON: None. DISCUSSION: No acute fractures are visualized. There are no destructive lesions. Note is made of vascular calcifications. IMPRESSION: No fractures or destructive lesions are visualized. Electronically signed by: Donnie Ptunam M.D. 10/04/2018 3:57 PM XR chest 1V portable HISTORY: 53 years-old Male AMS acutely altered mental status COMPARISON: Chest radiograph 07/04/2018, CTA chest 09/08/2018 TECHNIQUE: Portable AP view of the chest FINDINGS: Cardiac silhouette is upper limits of normal in size. Lungs are mildly hypoinflated with mild degree of bilateral interstitial coarsening. There is no pneumothorax, pleural effusion or overt pulmonary edema. Bones of the chest appear grossly intact. IMPRESSION: Mild hypoinflation with bilateral interstitial opacities suggestive of atelectasis. A nonspecific pneumonitis or pulmonary edema considered less likely. The above report was generated using voice recognition software. It may contain grammatical, syntax or spelling errors. Electronically signed by: Khoa Trevizo M.D. 10/04/2018 2:10 PM ECG Data Attestation: I personally reviewed and interpreted this ECG as follows: Indication: altered mental status Rate (beats per minute): 90 Rhythm: normal sinus Findings: no PAC, no PVC, no ST depression, no ST elevation and no ectopy Blood Pressure Blood Pressure Findings: Normal blood pressure MDM Narrative This is a 53-year-old male who presents emergency department complaining of altered mental status. The patient does have an elevation in his white blood cell count and was found to have bilateral pneumonia concerning for aspiration. He also has a DVT in his lower extremity on ultrasound. Based on these findings I felt the patient should be admitted to the hospital.Patient was started on antibiotics and discussed with the hospitalist service who admitted the patient. Impression & Plan Pneumonia, DVT (deep venous thrombosis) Discharge Plan Visit Data *Final* Discharge Date/Time: 10/04/18 19:47 Chief Complaint: Altered Mental Status Stated Complaint: agitated ED Provider: Sascha Turner Discharge Problem: Pneumonia, DVT (deep venous thrombosis) Patient Disposition: Admitted As Inpatient Discharge Instructions Interventions: ED Discharge Assessment Last Done: 10/04/18 19:47 Discharge Problem: Pneumonia Qualifiers: Pneumonia type: due to unspecified organism Laterality: unspecified laterality Lung location: unspecified part of lung Qualified Code(s): J18.9 - Pneumonia, unspecified organism DVT (deep venous thrombosis) Qualifiers: DVT location: lower extremity Affected thrombotic vein of extremity: unspecified vein of extremity Chronicity: unspecified Laterality: unspecified laterality Qualified Code(s): I82.409 - Acute embolism and thrombosis of unspecified deep veins of unspecified lower extremity The scribe's documentation has been prepared under my direction and personally reviewed by me in its entirety. I confirm that the note above accurately reflects all work, treatment, procedures, and medical decision making performed by me.
--- NOTE | 2018-10-05 19:58 | CT Scan Report ---
HEAD CT NONCONTRAST CT DOSE: 614.27 mGy.cm HISTORY: Altered mental status. recent stroke, obtunded on heparin drip , ? ICH TECHNIQUE: Multiaxial CT images of the head were performed without the use of intravenous contrast. A utomated exposure control was utilized for this study. A dose lowering technique was utilized adheri ng to the principles of ALARA. Comparison: Head CT 09/08/2018. Findings: Small amount of bubbly secretions within the left maxillary sinus. The mastoid air cells ar e clear. The calvarium and skull base are intact. There is no mass, hematoma, midline shift, acute in farct. The ventricles are normal in size. Old right MCA territory infarcts involving the frontal and right ovary lobes are again noted. There is an old lacunar infarct within the right basal ganglia. Impression: No acute intracranial abnormality. Old right MCA territory infarcts are noted. Electronically signed by: Philip Hair M.D. 10/05/2018 7:57 PM
[2018-10-05 21:02] LABS: Hematocrit (blood only) 27.8 % (42-52); Hemoglobin 9.2 g/dL (14.0-18.0)
[2018-10-06] MEDS: CEFEPIME 2,000 MG in SYRINGE 7.5 ML IV SCH ×2 (01:24→09:20)
[2018-10-06] MEDS: OCTREOTIDE ACETATE 500 MCG in 0.9 % SODIUM CHLORIDE 100 ML IV SCH (01:24)
[2018-10-06] MEDS: PANTOprazole 40 MG in DEXTROSE 5% 100 ML IV SCH ×3 (01:24→12:20)
[2018-10-06 04:22] LABS: Hematocrit (blood only) 26.7 % (42-52); Mean Corpuscular Hgb Conc 33.7 g/dL (32-36); Mean Corpuscular Volume 84.8 fL (80-100); Mean Platelet Volume 9.1 fL (7.4-10.4); Platelet Count 132 K/uL (130-400); RDW Coefficient of Variation 15.9 % (11.5-14.5); Red Blood Count 3.15 M/uL (4.7-6.1); White Blood Count 6.53 K/uL (4.8-10.8)
[2018-10-06 04:44] LABS: BUN Creatinine Ratio 17.2 (10-20); Calcium 8.3 mg/dl (8.5-10.1); Creatinine Clr Calc Pharmacy 98.6 ml/min; Est GFR (African American) 106.1; Est GFR (Non-African American) 91.6; Magnesium 2.2 mg/dl (1.8-2.4); Phosphorus 2.6 mg/dl (2.5-4.9); Potassium 4.3 mmol/L (3.5-5.1)
[2018-10-06] MEDS: ALBUMIN 25% 50 ML IV SCH ×5 (05:03→19:42)
[2018-10-06] MEDS: NORMOSOL-R 1,000 ML IV SCH ×2 (05:06→11:44)
[2018-10-06] MEDS ORDERED: ACETAMINOPHEN 65 ML IV ONE (05:32)
[2018-10-06] MEDS: ALBUT/IPRATROP 3MG/0.5MG NEB 3 ML VIAL NEB SCH ×3 (06:59→15:49)
[2018-10-06] MEDS ORDERED: VANCOMYCIN TROUGH ONE (07:30)
--- NOTE | 2018-10-06 07:48 | History & Physical Bridge Note ---
Date of Service October 06, 2018 saw patient this morning He is alert and oriented. Agreeable to EGD. Consent also obtained from his mother. hgb/bun stable. Will attempt for bedside EGD for evaluation of anemia. History & Physical Bridge Note I have examined the patient, reviewed the History & Physical and in the interval since the performance of the History & Physical I have noted the following changes of clinical significance: no changes noted Supervising Physician Co-Signing Physician Notes Michelle Martin
[2018-10-06] MEDS ORDERED: fentaNYL citrate 100 MCG/2 ML VIAL ONE (07:53)
[2018-10-06] MEDS ORDERED: PROPOFOL IV EMULSION 10 MG/ML 100 ML VIAL IV ONE (07:54)
--- NOTE | 2018-10-06 08:19 | Operative Report ---
Post Operative Report Pre & Post Diagnosis EGD done in ICU for anemia, no overt bleeding EGD with findings of no esophageal varices, no gastric varices, no phg, no ulcer noted in esophagus, stomach, duodenum Surgeon Michelle Martin I attest to the content of the Intraoperative Record and any orders documented therein. Any exceptions are noted below.
--- NOTE | 2018-10-06 08:22 | Gastroenterology Progress Note ---
Date of Service October 06, 2018 Supervising Physician Co-Signing Physician Notes Anemia - EGD negative at bedside today for varices - specifically esophageal, gastric. No ulcers noted. Can consider prep and colonoscopy tomorrow if patient agreeable. Sedation administered by the ICU team. Can consider changing PPI from drip to IV bid, can stop octreotide. Trend hgb. Consider sources for anemia outside the GI tract as well. Subjective Patient seen prior to EGD Without any complaints of hematemesis/melena, no bright red blood per rectum Feeling better Still with fu Review of Systems Review of Systems: All systems reviewed & are unremarkable except as noted in HPI & below Physical Exam Physical Exam: No acute distress Eyes: PERRL, conjunctivae normal, anicteric sclerae Respiratory: normal respiratory effort, lungs clear to auscultation Cardiovascular: RRR, no murmur, no edema Gastrointestinal (Abdomen): normal bowel sounds, soft, nontender, no hepatosplenomegaly Results & Data Vital Signs (Past 12 Hours) Vital Signs Temp Pulse Pulse Resp BP Pulse Ox Pulse Ox 10/06/18 07:00 88 16 95 10/06/18 05:15 88 17 140/82 92 10/06/18 05:06 93 H 16 129/86 93 10/06/18 05:00 92 H 17 155/125 H 93 10/06/18 04:46 95 H 23 150/82 H 95 10/06/18 04:31 92 H 13 130/85 96 10/06/18 04:15 83 17 120/79 94 10/06/18 04:00 36.6 C 80 15 117/69 93 10/06/18 03:45 80 15 115/70 93 10/06/18 03:30 79 13 111/68 93 10/06/18 03:15 78 13 115/75 94 10/06/18 03:01 85 17 126/83 94 10/06/18 02:45 81 14 127/77 95 10/06/18 02:31 88 13 120/88 97 10/06/18 02:15 83 15 120/78 97 10/06/18 02:00 79 15 114/72 95 10/06/18 01:46 85 12 116/83 94 10/06/18 01:30 79 10 L 116/74 95 10/06/18 01:15 78 11 L 109/70 94 10/06/18 01:00 85 23 106/71 93 95 10/06/18 00:45 80 14 119/72 94 10/06/18 00:33 81 14 117/73 94 10/06/18 00:30 78 11 L 120/70 94 10/06/18 00:16 81 18 109/69 94 10/06/18 00:00 36.8 C 79 13 127/77 93 10/05/18 23:47 80 15 120/70 91 10/05/18 23:31 83 14 133/76 96 10/05/18 23:17 80 22 146/84 H 97 10/05/18 23:00 76 23 131/77 97 10/05/18 22:15 72 20 123/75 97 10/05/18 22:00 72 22 120/73 96 10/05/18 21:45 73 12 87/62 L 94 10/05/18 21:30 73 18 89/56 L 94 10/05/18 21:00 69 17 127/85 98 10/05/18 20:30 76 14 125/78 98 10/05/18 20:07 70 18 96 10/05/18 20:00 36.7 C 77 14 124/79 99 Laboratory Results Hgb 9, bun normalizing
--- NOTE | 2018-10-06 08:27 | GI REPORT ---
Patient Name: Dion Higgins Procedure Date: 10/06/2018 8:05 AM Date of : 1965 Admit Type: Inpatient Age: 53 Gender: Male Attending MD: Michelle Martin M.d. Procedure: Upper GI endoscopy Providers: Michelle Martin M.d. Referring MD: Ricky Brown Indications: Unexplained anemia Medicines: Propofol per Anesthesia, Versed, Additional meds per ICU record Complications: No immediate complications. Estimated Blood Loss: Estimated blood loss was minimal. Procedure: Pre-Anesthesia Assessment: - Patient identification and proposed procedure were verified prior to the procedure by the physician and the nurse. The procedure was verified in the pre-procedure area. - Prior to the procedure, a History and Physical was performed, and patient medications, allergies and sensitivities were reviewed. The patient's tolerance of previous anesthesia was reviewed. - The risks and benefits of the procedure and the sedation options and risks were discussed with the patient. All questions were answered and informed consent was obtained. - ASA Grade Assessment: III - A patient with severe systemic disease. After obtaining informed consent, the endoscope was passed under direct vision. Throughout the procedure, the patient's blood pressure, pulse, and oxygen saturations were monitored continuously. The Endoscope was introduced through the mouth, and advanced to the second part of duodenum. The upper GI endoscopy was accomplished without difficulty. The patient tolerated the procedure well. Findings: The examined esophagus appeared normal. The examined stomach appeared normal. The duodenal bulb and second portion of the duodenum were normal. Impression: - Normal esophagus. - Normal stomach. - Normal duodenal bulb and second portion of the duodenum. Recommendation: - Can change IV PPI drip to IV PPI bid. - Can dc Octreotide. - Trend h/h. - Can consider colonscopy - timing to be determined as patient has the flu. Brodie Ng M.d. 10/06/2018 8:27:10 AM This report has been signed electronically. Note Initiated On: 10/06/2018 8:05 AM Number of Addenda: 0 I attest to the content of the Intraoperative Record and orders documented therein, exceptions below {[id number]}
[2018-10-06] MEDS: OSELTAMIVIR PHOSPHATE 75 MG CAP PO SCH ×2 (09:08→21:49)
[2018-10-06] MEDS: ATORVASTATIN 20 MG TAB PO SCH (09:09)
[2018-10-06] MEDS: levETIRAcetam 250 MG TAB PO SCH ×2 (09:10→21:48)
[2018-10-06] MEDS: RALTEGRAVIR POTASSIUM 400 MG TAB PO SCH ×2 (09:11→16:18)
[2018-10-06] MEDS: DARUNAVIR ETHANOLATE PO SCH ×2 (09:11→16:15)
[2018-10-06] MEDS: FOLIC ACID 1 MG TAB PO SCH (09:12)
[2018-10-06] MEDS: FLUOXETINE HCL 20 MG CAP PO SCH (09:12)
[2018-10-06] MEDS: FLUTICASONE PROPIONATE NA SPR 16 GM BTL NAE SCH (09:13)
[2018-10-06] MEDS: BUDESONIDE/FORMOTEROL FUMARATE 160/4.5 60 PUFFS/INHALER INH SCH ×2 (09:13→21:48)
[2018-10-06] MEDS: NYSTATIN SUSP 500,000 U/5 ML UDC BUCCAL SCH ×4 (09:13→21:48)
[2018-10-06] MEDS: RITONAVIR PO SCH ×2 (09:14→16:15)
[2018-10-06] MEDS: DOCUSATE SODIUM 100 MG CAP PO SCH ×2 (09:20→22:30)
--- NOTE | 2018-10-06 10:26 | Urology Consultation ---
Date of Consultation October 06, 2018 Assessment & Plan (1) Urinary retention: 53YO male with multiple medical issues including recent stroke 08/2018, UR. Russo in place, patent, draining yellow urine. Recommend Russo remain in place x 7-14 days. Will avoid Tamsulosin due to recent acute illness, hypotensive episode. Will arrange outpatient trial of void and urology follow up. Thank you for allowing us to participate in the care of this patient. Please contact our service with additional questions/concerns. History of Present Illness Attending Physician: Yobani Zarate MD History of Present Illness 53YO male with multiple medical issues including recent CVA in August 2018, admitted with pneumonia, flu, and LLE DVT. Patient had episode yesterday of low BP resulting in transfer to ICU, pressors. Found to have >1 liter in his bladder, indwelling Russo remains in place. Patient reports feeling better today, likely transfer to floor this afternoon. Russo cath is not bothersome. No abdominal or flank pain. No fever/chills. No nausea/vomiting. Allergies Allergy/AdvReac Type Severity Reaction Status Date / Time Penicillins Allergy Severe ANAPHYLAXIS Verified 08/28/18 17:00 mivacurium Allergy Intermediate RASH AND Verified 08/28/18 17:00 SKIN PEELING niacin Allergy Intermediate RASH Verified 08/28/18 17:00 Sulfa (Sulfonamide Allergy Unknown "ITCHY Verified 08/28/18 17:00 Antibiotics) RASH" tramadol Allergy Unknown RASH Verified 08/28/18 17:00 shellfish derived AdvReac Intermediate gi symptoms Verified 08/28/18 17:00 topiramate AdvReac Intermediate NAUSEA Verified 08/28/18 17:00 meloxicam AdvReac Unknown GI SYMPTOMS Verified 08/28/18 17:00 Home Medications Home Medications Medication Instructions Recorded Confirmed Type Isentress 400 mg PO BID 06/08/18 10/04/18 History Norvir 100 mg PO BID 06/08/18 10/04/18 History Prezista 600 mg PO BIDM 06/08/18 10/04/18 History Symbicort 2 puff INHALATION Q12H 06/08/18 10/04/18 History albuterol sulfate [ProAir HFA] 2 puff INHALATION Q4 PRN 06/08/18 10/04/18 History amitriptyline 100 mg PO HS 06/08/18 10/04/18 History amlodipine 10 mg PO QAM 06/08/18 10/04/18 History aspirin 81 mg PO QAM 06/08/18 10/04/18 History atorvastatin 20 mg PO QAM 06/08/18 10/04/18 History chlorthalidone 25 mg PO QAM 06/08/18 10/04/18 History clonidine HCl 0.1 mg PO BID 06/08/18 10/04/18 History clopidogrel [Plavix] 75 mg PO QAM 06/08/18 10/04/18 History docusate sodium [Colace] 100 mg PO BID 06/08/18 10/04/18 History dronabinol [Marinol] 10 mg PO BID 06/08/18 10/04/18 History fluoxetine [Prozac] 40 mg PO QAM 06/08/18 10/04/18 History fluticasone propionate [Flonase 2 spray INTRANASAL QAM 06/08/18 10/04/18 History Allergy Relief] folic acid 1 mg PO QAM 06/08/18 10/04/18 History furosemide [Lasix] 20 mg PO DAILY PRN 06/08/18 10/04/18 History metoprolol tartrate 50 mg PO BID 06/08/18 10/04/18 History oxycodone 5 mg PO Q6 PRN 06/08/18 10/04/18 History gabapentin 800 mg PO TID 08/25/18 10/04/18 History Guaifenesin 200mg/5ml 5 ml PO Q6 PRN 10/04/18 10/04/18 History azithromycin 1 - 2 tab PO UD 10/04/18 10/04/18 History benzonatate [Tessalon Perles] 100 mg PO TID PRN 10/04/18 10/04/18 History codeine-guaifenesin [Cheratussin 5 ml PO Q6H PRN 10/04/18 10/04/18 History AC] ipratropium-albuterol 3 ml INHALATION UD 10/04/18 10/04/18 History levetiracetam [Keppra] 750 mg PO BID 10/04/18 10/04/18 History losartan 100 mg PO DAILY 10/04/18 10/04/18 History nystatin 5 ml BUCCAL QID 10/04/18 10/04/18 History omeprazole 20 mg PO DAILY 10/04/18 10/04/18 History ondansetron HCl 4 mg PO TID PRN 10/04/18 10/04/18 History raltegravir [Isentress] 400 mg PO BID 10/04/18 10/04/18 History varenicline [Chantix] 1 mg PO BID 10/04/18 10/04/18 History Patient History Medical History Chronic pain syndrome (Chronic) Tobacco abuse (Chronic) Carotid artery stenosis (Chronic) Complete R ICA occlusion, L 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% HIV (human immunodeficiency virus infection) (Chronic) last CD4 count 717 10/2017 Depression (Chronic) Anxiety (Chronic) Polyp of colon (Chronic 12/21/12) Hypertension (Chronic) Dyslipidemia (Chronic) COPD (chronic obstructive pulmonary disease) (Chronic) Migraine (Chronic) History of CVA (cerebrovascular accident) (Chronic) "in setting of right carotid artery thrombosis" Carotid stenosis (Chronic) "03/06/15-SAÚL occlusion, LICA with 50-59% stenosis" AVM (arteriovenous malformation) brain (Chronic) History of alcohol abuse (Chronic) Anal dysplasia (Chronic) Neuropathic pain of both feet (Chronic) Alcohol abuse Pneumonia Surgical History History of colonoscopy (Chronic) History of anal lesion (Chronic) Family History Father Lung cancer Mother Hypertension Brother No pertinent family history Sister No pertinent family history Social History Preferred Language: Sinhala 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 Service Required: No Beliefs That Will Affect Care: None marital status: Current Living Situation: Spouse Other Information That Helps Us Care for You: No Feels Safe at Home: Yes Safety Concerns: Feels Safe At This Time Smoking Status: Current every day smoker Tobacco Type: cigarettes Cigarettes Per Day: 10 Do You Dip or Chew Tobacco: No Second Hand Exposure: Yes Hx Alcohol Use: No Hx Substance Use: No Review of Systems Constitutional: no fever and no chills Eyes: no worsening vision Ear, Nose, Mouth, Throat: no hearing loss Respiratory: no dyspnea Cardiovascular: no chest pain Gastrointestinal: no nausea and no vomiting Genitourinary: + as per Subjective / HPI Neurologic: Left side paralysis s/p CVA Psychiatric: no problem reported Endocrine: + fatigue Physical Exam Constitutional: no acute distress ENMT: Ears: no hearing impairment Neck: normal visual inspection Respiratory: normal respiratory effort; does not use accessory muscles On O2 via NC Cardiovascular: Vessels: no JVD Gastrointestinal (Abdomen): Percussion/Palpation: abdomen soft; abdomen nontender Neurologic: L side weakness and facial droop s/p CVA Psychiatric: A+Ox3, euthymic affect Genitourinary: Russo in place, patent, draining yellow urine. Results & Data Vital Signs (Past 12 Hours) Vital Signs Temp Pulse Pulse Pulse Resp BP BP 10/06/18 08:40 90 20 119/83 10/06/18 08:30 93 H 20 111/72 10/06/18 08:20 36.6 C 92 H 15 117/83 10/06/18 07:00 88 16 10/06/18 05:15 88 17 140/82 10/06/18 05:06 93 H 16 129/86 10/06/18 05:00 92 H 17 155/125 H 10/06/18 04:46 95 H 23 150/82 H 10/06/18 04:31 92 H 13 130/85 10/06/18 04:15 83 17 120/79 10/06/18 04:00 36.6 C 80 15 117/69 10/06/18 03:45 80 15 115/70 10/06/18 03:30 79 13 111/68 10/06/18 03:15 78 13 115/75 10/06/18 03:01 85 17 126/83 10/06/18 02:45 81 14 127/77 10/06/18 02:31 88 13 120/88 10/06/18 02:15 83 15 120/78 10/06/18 02:00 79 15 114/72 10/06/18 01:46 85 12 116/83 10/06/18 01:30 79 10 L 116/74 10/06/18 01:15 78 11 L 109/70 10/06/18 01:00 85 23 106/71 10/06/18 00:45 80 14 119/72 10/06/18 00:33 81 14 117/73 10/06/18 00:30 78 11 L 120/70 10/06/18 00:16 81 18 109/69 10/06/18 00:00 36.8 C 79 13 127/77 10/05/18 23:47 80 15 120/70 10/05/18 23:31 83 14 133/76 10/05/18 23:17 80 22 146/84 H 10/05/18 23:00 76 23 131/77 Pulse Ox Pulse Ox 10/06/18 08:40 94 10/06/18 08:30 97 10/06/18 08:20 97 10/06/18 07:00 95 10/06/18 05:15 92 10/06/18 05:06 93 10/06/18 05:00 93 10/06/18 04:46 95 10/06/18 04:31 96 10/06/18 04:15 94 10/06/18 04:00 93 10/06/18 03:45 93 10/06/18 03:30 93 10/06/18 03:15 94 10/06/18 03:01 94 10/06/18 02:45 95 10/06/18 02:31 97 10/06/18 02:15 97 10/06/18 02:00 95 10/06/18 01:46 94 10/06/18 01:30 95 10/06/18 01:15 94 10/06/18 01:00 93 95 10/06/18 00:45 94 10/06/18 00:33 94 10/06/18 00:30 94 10/06/18 00:16 94 10/06/18 00:00 93 10/05/18 23:47 91 10/05/18 23:31 96 10/05/18 23:17 97 10/05/18 23:00 97
[2018-10-06 12:08] LABS: Hematocrit (blood only) 28.4 % (42-52); Hemoglobin 9.7 g/dL (14.0-18.0)
[2018-10-06 12:34] LABS: iSTAT Arterial Blood Gas HCO3 19 meg/L (19-24); iSTAT Arterial Blood Gas pCO2 37 mmHg (35-46); iSTAT Arterial Blood Gas pH 7.31 (7.35-7.45); iSTAT Carbon Dioxide 20 mEq/l (24-31); iSTAT Hematocrit 28 % (42-52); iSTAT Hemoglobin 9.5 g/dl (14.0-18.0); iSTAT Potassium 4.4 mEq/L (3.3-5.0); iSTAT Site Art Line; iSTAT Sodium 140 mEq/L (135-144)
[2018-10-06] MEDS: GABAPENTIN 800 MG TAB PO SCH ×2 (14:34→21:47)
[2018-10-06] MEDS: HEPARIN SOD 5,000 UNIT/0.5 ML VIAL SQ SCH ×2 (14:35→22:30)
--- NOTE | 2018-10-06 14:50 | Critical Care Progress Note ---
Date of Service October 06, 2018 Assessment & Plan (1) Influenza A: Impression: 1. Sepsis secondary to UTI with urinary retention. 2. Urinary retention with Russo catheter placed and first output was 1400 mL of dark yellow fluid. 3. HIV disease, preserved CD4 count. 4. Fatty liver, alcohol abuse. 5. COPD with active nicotine abuse. 6. Left lower extremity DVT. 7. Influenza A detected on this admission. 8. history of anxiety and depression. 9. recent CVA diagnosed in August 2018. Plan: 1. The patient underwent EGD by Dr. Martin, appreciate her input, it was negative for upper GI bleeding. 2. We will change Protonix to p.o. twice daily. 3. Discontinue amitriptyline and ipratropium due to urinary retention. 4. Continue with cefepime for total of 3 days then downgrade antibiotics to Levaquin daily to complete 7 days course for UTI. 5. Follow results of urine culture. 6. Change normal saline to 75 mils an hour. Patient blood pressure has been stabilized. 7. Discontinue albumin after completing 24 hours total. 8. The patient should be on heparin drip, once a GI bleed is ruled out, he should be back again on heparin drip for DVT. 9. Start the patient on heparin subcu for DVT prophylaxis only. 10. Discontinue Chantix and ipratropium. 11. Continue to follow serial H&H. 12. Oral intake for today, n.p.o. after midnight for colonoscopy tomorrow. 13. Type and screen. No blood transfusion at this point. 14. Fecal occult blood testing. 15. Continue his antiretroviral therapy. 16. Patient can be dispositioned to regular floor. 17. I do not see any evidence of pneumonia. 18. Patient is positive for influenza A, afebrile at the moment. 19. Consider urology consult given urinary retention. Case discussed with the staff on rounds in details, critical care time spent with the patient was 45 minutes including assistance with sedation. Subjective No events overnight, the patient remains fully alert, following commands and answering questions, denies any pain, no nausea or vomiting, no evidence of hem atemesis or hematochezia, cough has been occasional but no sputum production. Otherwise review of system was unremarkable. Patient was n.p.o. for EGD. Review of Systems Review of Systems: Review of system otherwise was unremarkable, 14 systems has been reviewed. Physical Exam Physical Exam: Vital signs are stable, S1-S2 regular rate and rhythm, lungs rhonchorous bilaterally, abdomen is benign, trace edema in the periphery. Neurologically he is nonfocal, following commands and answering questions properly. Results & Data Vital Signs (Past 12 Hours) Vital Signs Temp Pulse Pulse Pulse Resp BP BP 10/06/18 13:42 36.9 C 98 H 22 133/79 10/06/18 13:00 100 H 23 157/96 H 10/06/18 12:00 36.9 C 98 H 22 118/82 10/06/18 11:26 90 16 10/06/18 11:00 90 26 H 138/96 10/06/18 10:00 90 19 131/83 10/06/18 09:00 36.8 C 89 15 132/80 10/06/18 08:40 90 20 119/83 10/06/18 08:30 93 H 20 111/72 10/06/18 08:20 36.6 C 92 H 15 117/83 10/06/18 08:00 92 H 16 128/74 10/06/18 07:00 86 88 16 10/06/18 05:15 88 17 140/82 10/06/18 05:06 93 H 16 129/86 10/06/18 05:00 92 H 17 155/125 H 10/06/18 04:46 95 H 23 150/82 H 10/06/18 04:31 92 H 13 130/85 10/06/18 04:15 83 17 120/79 10/06/18 04:00 36.6 C 80 15 117/69 10/06/18 03:45 80 15 115/70 10/06/18 03:30 79 13 111/68 10/06/18 03:15 78 13 115/75 10/06/18 03:01 85 17 126/83 10/06/18 02:45 81 14 127/77 Pulse Ox 10/06/18 13:42 97 10/06/18 13:00 99 10/06/18 12:00 10/06/18 11:26 100 10/06/18 11:00 100 10/06/18 10:00 97 10/06/18 09:00 95 10/06/18 08:40 94 10/06/18 08:30 97 10/06/18 08:20 97 10/06/18 08:00 93 10/06/18 07:00 99 10/06/18 05:15 92 10/06/18 05:06 93 10/06/18 05:00 93 10/06/18 04:46 95 10/06/18 04:31 96 10/06/18 04:15 94 10/06/18 04:00 93 10/06/18 03:45 93 10/06/18 03:30 93 10/06/18 03:15 94 10/06/18 03:01 94 10/06/18 02:45 95 Laboratory Results Labs were reviewed which showed stable CBC, his hematocrit remains at 28 dropping down from 40 but has been plateaued. ABG showed mild metabolic acidosis. Mild hyperglycemia. UA without positive sediment. But the patient been already on antibiotics. Diagnostic Findings EGD results were noted to be normal, appreciate GI input. Head CT was done which showed old CVA from previous admission, no evidence of petechial hemorrhage.
--- NOTE | 2018-10-06 14:52 | Pre Anesthesia Assessment ---
Date of Service October 06, 2018 Pre Sedation Assessment Vital Signs Temp Pulse Pulse Pulse Resp BP BP 10/06/18 13:42 36.9 C 98 H 22 133/79 10/06/18 13:00 100 H 23 157/96 H 10/06/18 12:00 36.9 C 98 H 22 118/82 10/06/18 11:26 90 16 10/06/18 11:00 90 26 H 138/96 10/06/18 10:00 90 19 131/83 10/06/18 09:00 36.8 C 89 15 132/80 10/06/18 08:40 90 20 119/83 10/06/18 08:30 93 H 20 111/72 10/06/18 08:20 36.6 C 92 H 15 117/83 10/06/18 08:00 92 H 16 128/74 10/06/18 07:00 86 88 16 10/06/18 05:15 88 17 140/82 10/06/18 05:06 93 H 16 129/86 10/06/18 05:00 92 H 17 155/125 H 10/06/18 04:46 95 H 23 150/82 H 10/06/18 04:31 92 H 13 130/85 10/06/18 04:15 83 17 120/79 10/06/18 04:00 36.6 C 80 15 117/69 10/06/18 03:45 80 15 115/70 10/06/18 03:30 79 13 111/68 10/06/18 03:15 78 13 115/75 10/06/18 03:01 85 17 126/83 10/06/18 02:45 81 14 127/77 10/06/18 02:31 88 13 120/88 10/06/18 02:15 83 15 120/78 10/06/18 02:00 79 15 114/72 10/06/18 01:46 85 12 116/83 10/06/18 01:30 79 10 L 116/74 10/06/18 01:15 78 11 L 109/70 10/06/18 01:00 85 23 106/71 10/06/18 00:45 80 14 119/72 10/06/18 00:33 81 14 117/73 10/06/18 00:30 78 11 L 120/70 10/06/18 00:16 81 18 109/69 10/06/18 00:00 36.8 C 79 13 127/77 10/05/18 23:47 80 15 120/70 10/05/18 23:31 83 14 133/76 10/05/18 23:17 80 22 146/84 H 10/05/18 23:00 76 23 131/77 10/05/18 22:15 72 20 123/75 10/05/18 22:00 72 22 120/73 10/05/18 21:45 73 12 87/62 L 10/05/18 21:30 73 18 89/56 L 10/05/18 21:00 69 17 127/85 10/05/18 20:30 76 14 125/78 10/05/18 20:07 70 18 10/05/18 20:00 36.7 C 77 14 124/79 10/05/18 19:00 78 11 L 114/74 10/05/18 18:45 73 12 122/77 10/05/18 18:30 77 12 109/72 10/05/18 18:15 77 12 105/72 10/05/18 18:00 80 12 103/69 10/05/18 17:45 83 12 109/75 10/05/18 17:30 67 15 125/99 10/05/18 16:30 72 18 93/62 L 10/05/18 16:15 77 16 83/56 L 10/05/18 16:00 80 17 69/43 L 10/05/18 15:45 36.6 C 80 15 69/43 L 10/05/18 15:44 80 19 66/44 L 10/05/18 15:31 89 18 10/05/18 15:15 87 16 75/48 L 10/05/18 15:00 92 H 24 74/45 L Pulse Ox Pulse Ox 10/06/18 13:42 97 10/06/18 13:00 99 10/06/18 12:00 10/06/18 11:26 100 10/06/18 11:00 100 10/06/18 10:00 97 10/06/18 09:00 95 10/06/18 08:40 94 10/06/18 08:30 97 10/06/18 08:20 97 10/06/18 08:00 93 10/06/18 07:00 99 10/06/18 05:15 92 04/25/19 05:06 93 10/06/18 05:00 93 10/06/18 04:46 95 10/06/18 04:31 96 10/06/18 04:15 94 10/06/18 04:00 93 10/06/18 03:45 93 10/06/18 03:30 93 10/06/18 03:15 94 10/06/18 03:01 94 10/06/18 02:45 95 10/06/18 02:31 97 10/06/18 02:15 97 10/06/18 02:00 95 10/06/18 01:46 94 10/06/18 01:30 95 10/06/18 01:15 94 10/06/18 01:00 93 95 10/06/18 00:45 94 10/06/18 00:33 94 10/06/18 00:30 94 10/06/18 00:16 94 10/06/18 00:00 93 10/05/18 23:47 91 10/05/18 23:31 96 10/05/18 23:17 97 10/05/18 23:00 97 10/05/18 22:15 97 10/05/18 22:00 96 10/05/18 21:45 94 10/05/18 21:30 94 10/05/18 21:00 98 10/05/18 20:30 98 10/05/18 20:07 96 10/05/18 20:00 99 10/05/18 19:00 100 10/05/18 18:45 100 10/05/18 18:30 100 10/05/18 18:15 99 10/05/18 18:00 99 10/05/18 17:45 100 10/05/18 17:30 100 10/05/18 16:30 100 10/05/18 16:15 100 10/05/18 16:00 96 10/05/18 15:45 94 10/05/18 15:44 95 10/05/18 15:31 94 10/05/18 15:15 93 10/05/18 15:00 95 Cardiovascular RRR, no murmur, no edema Respiratory normal respiratory effort, lungs clear to auscultation Pre-Sedation Airway Assessment Smoking Status: Current every day smoker Hx Sleep Apnea: No Hx Difficult Intubation: No Short, Thick Neck: No Thyromental Distance: > or= 3.5 Finger Breadths Mallampati Class: II NPO Status Date of Last Intake of Fluids: 10/06/18 Time of Last Intake of Fluids: 00:00 Procedure Planning Contraindications for Sedation: none Notes The planned sedation has been discussed with the patient. Informed Consent was obtained. I have identified the patient, determined the appropriateness of sedation and have assessed the patient immediately prior to the procedure. All medicine(s) and interventions are by my order.
--- NOTE | 2018-10-06 14:55 | Post Anesthesia Assessment ---
Date of Service October 06, 2018 Post Sedation Assessment Vital Signs Temp Pulse Pulse Pulse Resp BP BP 10/06/18 13:42 36.9 C 98 H 22 133/79 10/06/18 13:00 100 H 23 157/96 H 10/06/18 12:00 36.9 C 98 H 22 118/82 10/06/18 11:26 90 16 10/06/18 11:00 90 26 H 138/96 10/06/18 10:00 90 19 131/83 10/06/18 09:00 36.8 C 89 15 132/80 10/06/18 08:40 90 20 119/83 10/06/18 08:30 93 H 20 111/72 10/06/18 08:20 36.6 C 92 H 15 117/83 10/06/18 08:00 92 H 16 128/74 10/06/18 07:00 86 88 16 10/06/18 05:15 88 17 140/82 10/06/18 05:06 93 H 16 129/86 10/06/18 05:00 92 H 17 155/125 H 10/06/18 04:46 95 H 23 150/82 H 10/06/18 04:31 92 H 13 130/85 10/06/18 04:15 83 17 120/79 10/06/18 04:00 36.6 C 80 15 117/69 10/06/18 03:45 80 15 115/70 10/06/18 03:30 79 13 111/68 10/06/18 03:15 78 13 115/75 10/06/18 03:01 85 17 126/83 10/06/18 02:45 81 14 127/77 10/06/18 02:31 88 13 120/88 10/06/18 02:15 83 15 120/78 10/06/18 02:00 79 15 114/72 10/06/18 01:46 85 12 116/83 10/06/18 01:30 79 10 L 116/74 10/06/18 01:15 78 11 L 109/70 10/06/18 01:00 85 23 106/71 10/06/18 00:45 80 14 119/72 10/06/18 00:33 81 14 117/73 10/06/18 00:30 78 11 L 120/70 10/06/18 00:16 81 18 109/69 10/06/18 00:00 36.8 C 79 13 127/77 10/05/18 23:47 80 15 120/70 10/05/18 23:31 83 14 133/76 10/05/18 23:17 80 22 146/84 H 10/05/18 23:00 76 23 131/77 10/05/18 22:15 72 20 123/75 10/05/18 22:00 72 22 120/73 10/05/18 21:45 73 12 87/62 L 10/05/18 21:30 73 18 89/56 L 10/05/18 21:00 69 17 127/85 10/05/18 20:30 76 14 125/78 10/05/18 20:07 70 18 10/05/18 20:00 36.7 C 77 14 124/79 10/05/18 19:00 78 11 L 114/74 10/05/18 18:45 73 12 122/77 10/05/18 18:30 77 12 109/72 10/05/18 18:15 77 12 105/72 10/05/18 18:00 80 12 103/69 10/05/18 17:45 83 12 109/75 10/05/18 17:30 67 15 125/99 10/05/18 16:30 72 18 93/62 L 10/05/18 16:15 77 16 83/56 L 10/05/18 16:00 80 17 69/43 L 10/05/18 15:45 36.6 C 80 15 69/43 L 10/05/18 15:44 80 19 66/44 L 10/05/18 15:31 89 18 10/05/18 15:15 87 16 75/48 L 10/05/18 15:00 92 H 24 74/45 L Pulse Ox Pulse Ox 10/06/18 13:42 97 10/06/18 13:00 99 10/06/18 12:00 10/06/18 11:26 100 10/06/18 11:00 100 10/06/18 10:00 97 10/06/18 09:00 95 10/06/18 08:40 94 10/06/18 08:30 97 10/06/18 08:20 97 10/06/18 08:00 93 10/06/18 07:00 99 10/06/18 05:15 92 04/25/19 05:06 93 10/06/18 05:00 93 10/06/18 04:46 95 10/06/18 04:31 96 10/06/18 04:15 94 10/06/18 04:00 93 10/06/18 03:45 93 10/06/18 03:30 93 10/06/18 03:15 94 10/06/18 03:01 94 10/06/18 02:45 95 10/06/18 02:31 97 10/06/18 02:15 97 10/06/18 02:00 95 10/06/18 01:46 94 10/06/18 01:30 95 10/06/18 01:15 94 10/06/18 01:00 93 95 10/06/18 00:45 94 10/06/18 00:33 94 10/06/18 00:30 94 10/06/18 00:16 94 10/06/18 00:00 93 10/05/18 23:47 91 10/05/18 23:31 96 10/05/18 23:17 97 10/05/18 23:00 97 10/05/18 22:15 97 10/05/18 22:00 96 10/05/18 21:45 94 10/05/18 21:30 94 10/05/18 21:00 98 10/05/18 20:30 98 10/05/18 20:07 96 10/05/18 20:00 99 10/05/18 19:00 100 10/05/18 18:45 100 10/05/18 18:30 100 10/05/18 18:15 99 10/05/18 18:00 99 10/05/18 17:45 100 10/05/18 17:30 100 10/05/18 16:30 100 10/05/18 16:15 100 10/05/18 16:00 96 10/05/18 15:45 94 10/05/18 15:44 95 10/05/18 15:31 94 10/05/18 15:15 93 10/05/18 15:00 95 Recovery Score Activity: Moves 4 extremities Respiration: Deep Breath/Cough Circulation: +/-20% PreAnes Value Consciousness: Fully Awake Oxygen Saturation: O2 needed for >90% Post Anesthesia Score: 9 Post Sedation Plan The patient received sedation for EGD, the patient was monitored throughout the entire procedure in the ICU in bed 6, consent obtained for anesthesia, agreed to the procedure, the patient was sedated with 25 mics of fentanyl x2 doses 5 minutes apart, in addition to propofol with total of 130 mg in increments of 20 mg each, the patient blood pressure and vital signs were measured every 5 minutes, and remained stable throughout the entire procedure, no desaturation, tolerated the procedure very well, the rest of his assessment as per presedation note. The patient was placed on oxygen via nasal cannula in addition to CO2 monitoring. Remained stable throughout the entire case. On clinical assessment, the patient appears to have tolerated the sedation without complications. Patient is recovering as anticipated. Patient will continue to be monitored by nursing and may be discharged when sedation discharge criteria are met per below protocol. Upon Completions of procedure and additional 15 minutes continue every 5 minute vital signs and the P.A.R. score; then discharge to a Phase I or Fast Track to Phase II per the following guidelines: * Discharge Patient to appropriate Phase II area if PAR is 8 or greater or return to pre- procedure baseline. The post - procedure orders will be as directed. * If PAR score is less than 8 or not return to pre-procedure baseline then patient will follow Phase I monitoring till PAR is reached for Phase II. The Phase I may be done in procedure room or may call to secure a Phase I area. * If naloxone or flumazenil are used for reversal, hold in Phase I for continued monitoring from when last reversal dose was given for a minimum of 60 minutes or longer pending the nurse and/or physician discretion of patient condition before discharge to Phase II. Please call the Sedation Physician to re-evaluate and complete post-note for discharge to Phase II area. Do NOT discharge from procedure sedation or Phase 1 until post- sedation evaluation note is complete by procedure /sedation MD Sedation Discharge Instructions to be given to the patient at discharge to home.
[2018-10-06] MEDS: levoFLOXacin 750 MG TAB PO SCH (16:11)
[2018-10-06] MEDS ORDERED: Nursing to Pharmacy Communication ONE (16:19)
--- NOTE | 2018-10-06 16:34 | Hospitalist Progress Note ---
Date of Service October 06, 2018 Assessment & Plan (1) Sepsis: (2) Pneumonia: This is a 53yo M with a PMH of recent CVA in August 2018, HIV, carotid artery disease, COPD, anxiety, depression, neuropathy, tobacco use and other medical problems listed below who presents with generalized weakness, fever and chills for the past week and was found to have sepsis 2/2 PNA vs UTI with urinary retention, acute LLE DVT and Flu A. Significantly improved overnight. Possible septic shock 2/2 pneumonia vs. UTI from urinary retention -Levophed discontinued last night and patient maintaining BP appropriately all day. Transitioned from ICU to PCU today, now in 220-1 -No growth on blood culture to date, continue following urine culture -De-escalate Cefepime to PO Levaquin for 7 days, per Dr. Brown -Albuterol nebs, home inhalers, gentle fluids (3) Urinary retention: Had urinary retention yesterday, with 1.4 L initial output of dark urine -Continue monitoring output with turner catheter in place -Urology service consulted * Recommend Turner remain in place x 7-14 days * Will avoid Tamsulosin due to recent acute illness, hypotensive episode * Will arrange outpatient trial of void and urology follow up -Discontinue amitriptyline and ipratropium due to urinary retention (4) DVT (deep venous thrombosis): Found to have acute left lower extremity DVT, in setting of sedentary lifestyle since CVA last month -No evidence of acute PE on chest CTA -IV heparin held yesterday due to concern for possible GI bleed -Will continue SQ heparin for now, consider resuming IV heparin tomorrow if hgb stable (5) Anemia: Found to have declining hgb from 13.5 to 11 to 9, thought initially to be due to dilution from IV fluids vs possible GI bleed -IV heparin was held -EGD performed this morning without evidence of bleed -Will give SQ heparin today and if no evidence of GIB by tomorrow, will consider resuming IV heparin -GI consulted, OP colonoscopy scheduled (6) Influenza A: Positive Flu A on PCR -Has had symptoms for last week -Tamiflu BID, contact precautions (7) History of CVA (cerebrovascular accident): 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 Blount in clinic. ID following -Continue antivirals -CD4 count 739 in Jun 2018 (9) Oral thrush: Ongoing, continue swish and swallow 4 times daily (10) COPD (chronic obstructive pulmonary disease): Continue home inhalers, nebs. No wheezing noted on lung exam (11) Hypertension: History of labile hypertension. Required pressors last evening due to hypotension that has resolved -Has been normotensive today -Holding dose amlodipine, chlorthalidone, clonidine, losartan and lopressor for now (12) Chronic pain syndrome: Has peripheral neuropathy in setting of alcohol abuse, antivirals -Resumed gabapentin and oxycodone today -Monitor mental status closely (13) Depression: Continue SSRI (14) Dyslipidemia: Continue atorvastatin (15) Tobacco abuse: Has not smoked in 1 week. -Nicotine patch DVT Ppx: Holding IV heparin in setting of possible GI bleed. Continue SQ Q8H heparin for now. Code status: FULL PCP: Jerrod Dispo: Transferred to PCU. Discharge planning ordered. Patient seen in collaboration with Dr. Zarate. Please see addendum. Attending Addendum: Delayed entry date of service noted up care coordinated with AUSTIN Padron please refer to her notes for full details, I agree with her notes patient seen and examined, records reviewed by myself as well on exam, patient seen in telemetry unit Patient's at the bedside Patient is awake alert oriented x3, states he feels improved compared to previous day Less cough, no dyspnea No chest pain, dizziness, headache palpitations Denies leg pain no other symptoms VS noted and reviewed oriented x3, not in distress, speaks in sentences with no effort nor accessory muscle use normal rate, regular rhythm, no murmurs Mild rhonchi bilaterally non distended, soft, nontender no bipedal edema, erythema, warmth no neuro deficits WBC 6.5 Hg 9.0 Crea 0.94 ASSESSMENT AND PLAN Possible septic shock, resolved Influenza infection plus pneumonia Patient now on Levaquin p.o., continue Tamiflu Continue to monitor blood pressures closely Lower extremity DVT Heparin IV discontinued secondary to possible GI bleed EGD no source of bleeding identified For now, heparin subcutaneous 3 times daily for DVT prophylaxis Will consider restarting therapeutic anticoagulation if with no signs of overt GI bleeding and hemoglobin stable Anemia EGD no source of bleeding identified GI planning for outpatient colonoscopy in light of current pneumonia and influenza Case discussed at length in detail with patient and his , they are agreeable, comfortable and understanding with the plan of care other diagnoses and plan of care as per AUSTIN Padron's notes Yobani Zarate MD Subjective Patient seen and examined. Clinically much better today, sitting up in bed and communicating clearly. Has leg pain and occasional cough. Denies lightheadedness, headache, confusion, chest pain, shortness of breath, nausea or vomiting, abdominal pain. Has Turner catheter in place draining yellow urine. No hematochezia. Review of Systems Review of Systems: At least ten systems reviewed and negative except as noted in the HPI. Physical Exam Physical Exam: General Appearance: WD/WN, no apparent distress, sitting upright in bed, coughing occasionally Head: normocephalic, atraumatic Eyes: normal inspection, PERRL, EOMI ENT: hearing grossly normal, pharynx normal (moist mucous membranes) Neck: supple, no JVD, no adenopathy Respiratory/Chest: Decreased breath sounds bilaterally but clear. No wheezes, rales or rhonci. No respiratory distress or accessory muscle use Cardiovascular: regular rate, rhythm, no murmur, normal peripheral pulses Abdomen/GI: normal bowel sounds, soft, non-tender to palpation Extremities/Musculoskelatal: normal inspection, no calf tenderness, normal capillary refill, no pedal edema Neurologic/Psych: alert, normal mood/affect, oriented x 3 Skin: normal color, warm/dry Results & Data Vital Signs (Past 12 Hours) Vital Signs Temp Pulse Pulse Pulse Resp BP BP 10/06/18 15:52 91 H 18 10/06/18 15:48 99 H 10/06/18 15:20 36.9 C 80 20 128/77 10/06/18 14:00 97 H 10/06/18 13:42 36.9 C 98 H 22 133/79 10/06/18 13:00 100 H 23 157/96 H 10/06/18 12:00 36.9 C 98 H 22 118/82 10/06/18 11:26 90 16 10/06/18 11:00 90 26 H 138/96 10/06/18 10:00 90 19 131/83 10/06/18 09:00 36.8 C 89 15 132/80 10/06/18 08:40 90 20 119/83 10/06/18 08:30 93 H 20 111/72 10/06/18 08:20 36.6 C 92 H 15 117/83 10/06/18 08:00 92 H 16 128/74 10/06/18 07:00 86 88 16 10/06/18 05:15 88 17 140/82 10/06/18 05:06 93 H 16 129/86 10/06/18 05:00 92 H 17 155/125 H 10/06/18 04:46 95 H 23 150/82 H 10/06/18 04:31 92 H 13 130/85 Pulse Ox 10/06/18 15:52 88 L 10/06/18 15:48 10/06/18 15:20 99 10/06/18 14:00 10/06/18 13:42 97 10/06/18 13:00 99 10/06/18 12:00 10/06/18 11:26 100 10/06/18 11:00 100 10/06/18 10:00 97 10/06/18 09:00 95 10/06/18 08:40 94 10/06/18 08:30 97 10/06/18 08:20 97 10/06/18 08:00 93 10/06/18 07:00 99 10/06/18 05:15 92 10/06/18 05:06 93 10/06/18 05:00 93 10/06/18 04:46 95 10/06/18 04:31 96 Laboratory Results Short CBC 10/05/18 10/06/18 10/06/18 Range/Units 20:50 04:07 11:52 WBC 6.53 (4.8-10.8) K/uL Hgb 9.2 L 9.0 L 9.7 L (14.0-18.0) g/dL Hct 27.8 L 26.7 L 28.4 L (42-52) % Plt Count 132 (130-400) K/uL BMP 10/06/18 04:07 Sodium 137 Potassium 4.3 Chloride 109 H Carbon Dioxide 24 BUN 16 Creatinine 0.94 D Glucose 175 H Calcium 8.3 L Urine 10/05/18 Range/Units Unknown Urine Color Yellow Urine Appearance Clear (Clear) Urine pH 6.0 (4.5-7.5) Ur Specific [place] 1.025 (1.000-1.030) Urine Protein Trace H (Negative) Urine Glucose (UA) Negative (Negative) Diagnostic Findings CT head: Impression: No acute intracranial abnormality. Old right MCA territory infarcts are noted. CXR: IMPRESSION: No pneumothorax status post placement of a right subclavian central venous catheter. (1) DVT (deep venous thrombosis) Affected thrombotic vein of extremity: unspecified vein of extremity Chronicity: unspecified DVT location: lower extremity Laterality: unspecified laterality Qualified Code(s): I82.409 - Acute embolism and thrombosis of unspecified deep veins of unspecified lower extremity (2) Pneumonia Laterality: unspecified laterality Lung location: unspecified part of lung Pneumonia type: due to unspecified organism Qualified Code(s): J18.9 - Pneumonia, unspecified organism
[2018-10-06] MEDS: OXYCODONE HCL IR 5 MG TAB (IMMEDIATE RELEASE) PO PRN (17:45)
[2018-10-06] MEDS: ALBUTEROL 0.5% NEB SOLN 2.5 MG/0.5 ML VIAL NEB SCH (18:52)
--- NOTE | 2018-10-06 21:42 | Infectious Disease Progress Nt ---
Date of Service October 06, 2018 Assessment & Plan (1) Influenza A: 53-year-old long-standing HIV patient, recently well maintained on antiretrovirals, status post recent CVA, now with influenza A complicated by pneumonia. Also with DVT and urinary retention, now improved with Russo catheter. Antibiotics to be de-escalated to oral Levaquin. Will follow. (2) Pneumonia: (3) HIV (human immunodeficiency virus infection): Subjective Patient seen in follow-up for influenza pneumonia. Events of yesterday noted. Patient developed acute urinary retention, Russo catheter placed. Now much improved, out of ICU. Denies worsening shortness of breath, still with some leg pain. Currently afebrile. Review of Systems Review of Systems: All systems reviewed & are unremarkable except as noted in HPI & below Physical Exam Constitutional: WD/WN, vitals as above comfortable; no acute distress Eyes: PERRL, conjunctivae normal, anicteric sclerae ENMT: external ear and nose normal, oropharynx normal Neck: trachea midline, no thyromegaly neck nontender Respiratory: normal percussion; no respiratory distress and does not use accessory muscles Auscultation: + rhonchi (Right lower lobe) Cardiovascular: Rate/Rhythm: regular rate and regular rhythm Heart Sounds: normal S1 and normal S2; no gallop, no murmur and no cardiac rub Vessels: normal peripheral pulses; no JVD Gastrointestinal (Abdomen): normal bowel sounds, soft, nontender, no hepatosplenomegaly Musculoskeletal: no cyanosis or clubbing, extremities motor strength 5/5 Spine: thoracic spine normal to inspection and lumbar spine normal to inspection; no cervical spinal tenderness Skin: no rashes, warm and dry normal turgor; no lesions Neurologic: awake Psychiatric: A+Ox3, euthymic affect Orientation: cooperative Lymphatic: no cervical or axillary lymphadenopathy no inguinal lymphadenopathy Results & Data Vital Signs (Past 12 Hours) Vital Signs Temp Pulse Pulse Pulse Resp BP BP 10/06/18 19:57 36.9 C 94 H 20 119/71 10/06/18 18:52 93 H 18 10/06/18 15:52 91 H 18 10/06/18 15:48 99 H 10/06/18 15:20 36.9 C 80 20 128/77 10/06/18 14:00 97 H 10/06/18 13:42 36.9 C 98 H 22 133/79 04/25/19 13:00 100 H 23 157/96 H 10/06/18 12:00 36.9 C 98 H 22 118/82 10/06/18 11:26 90 16 10/06/18 11:00 90 26 H 138/96 10/06/18 10:00 90 19 131/83 Pulse Ox 10/06/18 19:57 95 10/06/18 18:52 90 10/06/18 15:52 88 L 10/06/18 15:48 10/06/18 15:20 99 10/06/18 14:00 10/06/18 13:42 97 10/06/18 13:00 99 10/06/18 12:00 10/06/18 11:26 100 10/06/18 11:00 100 10/06/18 10:00 97 Laboratory Results Short CBC 10/06/18 10/06/18 Range/Units 04:07 11:52 WBC 6.53 (4.8-10.8) K/uL Hgb 9.0 L 9.7 L (14.0-18.0) g/dL Hct 26.7 L 28.4 L (42-52) % Plt Count 132 (130-400) K/uL BMP 10/06/18 04:07 Sodium 137 Potassium 4.3 Chloride 109 H Carbon Dioxide 24 BUN 16 Creatinine 0.94 D Glucose 175 H Calcium 8.3 L Diagnostic Findings Microbiology 10/05/18 16:31 Urine,Indwelling Cath Urine Culture - Preliminary No growth - Less than 1,000 colonies/mL, Final report to follow. 10/04/18 18:14 Blood Blood Culture - Preliminary No growth to date. 10/04/18 18:04 Blood Blood Culture - Preliminary No growth to date. CT ANGIOGRAM OF THE CHEST CLINICAL HISTORY: Shortness of breath. DVT. Suspected pulmonary embolism. COMPARISON STUDY: September 08, 2018 TECHNIQUE: Following the IV administration of 99 mL of Optiray-320, CT angiogram of the thorax was performed from the thoracic inlet to the lung bases utilizing the pulmonary embolus protocol. Images are reviewed in the axial, sagittal, and coronal planes. IV contrast was administered without complication. MIP imaging was performed. A dose lowering technique was utilized adhering to the principles of ALARA. CT DOSE: 350.43 mGy.cm FINDINGS: There is hepatic steatosis. Mediastinal lymph nodes are the upper limits of normal in size. There is no pathologic hilar or axillary lymphadenopathy. The ascending thoracic aorta measures 34 mm. There were no pulmonary artery filling defects to indicate acute pulmonary embolism. No pleural effusions are visualized. There is lower lobe bronchial wall thickening with right lower lobe mucous plugging. There are right lower lobe airspace opacity suspicious for a pneumonia. Examination is mildly compromised due to motion artifact. IMPRESSION: 1. No evidence of acute pulmonary embolism 2. Right lower lobe airspace opacities suspicious for a pneumonia. Imaging subsequent to treatment is recommended in follow-up 3. Lower lobe bronchial wall thickening and right lower lobe mucous plugging Electronically signed by: Donnie Putnam M.D. 10/04/2018 4:53 PM Dictated: 10/04/188 Transcribed: 10/04/18 164 (1) Pneumonia Laterality: unspecified laterality Lung location: unspecified part of lung Pneumonia type: due to unspecified organism Qualified Code(s): J18.9 - Pneumonia, unspecified organism
[2018-10-06] MEDS: PANTOprazole 40 MG TAB PO SCH (21:50)
[2018-10-07] MEDS: NORMOSOL-R 1,000 ML IV SCH ×2 (01:26→14:13)
[2018-10-07] MEDS: OXYCODONE HCL IR 5 MG TAB (IMMEDIATE RELEASE) PO PRN ×2 (03:20→16:58)
[2018-10-07 05:45] LABS: Hematocrit (blood only) 29.2 % (42-52); Hemoglobin 9.8 g/dL (14.0-18.0); Mean Corpuscular Hgb Conc 33.6 g/dL (32-36); Mean Corpuscular Volume 84.1 fL (80-100); Mean Platelet Volume 9.4 fL (7.4-10.4); Platelet Count 134 K/uL (130-400); RDW Coefficient of Variation 15.5 % (11.5-14.5); RDW Standard Deviation 47.4 fL (36.4-46.3); Red Blood Count 3.47 M/uL (4.7-6.1); White Blood Count 5.52 K/uL (4.8-10.8)
[2018-10-07] MEDS: HEPARIN SOD 5,000 UNIT/0.5 ML VIAL SQ SCH ×2 (06:18→14:13)
[2018-10-07 06:25] LABS: BUN Creatinine Ratio 10.8 (10-20); Calcium 9.3 mg/dl (8.5-10.1); Creatinine Clr Calc Pharmacy 105.3 ml/min; Est GFR (African American) 112.9; Est GFR (Non-African American) 97.4; Potassium 4.1 mmol/L (3.5-5.1)
[2018-10-07] MEDS: ALBUTEROL 0.5% NEB SOLN 2.5 MG/0.5 ML VIAL NEB SCH ×4 (07:12→19:19)
[2018-10-07] MEDS: levETIRAcetam 250 MG TAB PO SCH ×2 (07:58→20:42)
[2018-10-07] MEDS: PANTOprazole 40 MG TAB PO SCH ×2 (07:59→20:46)
[2018-10-07] MEDS: ATORVASTATIN 20 MG TAB PO SCH (07:59)
[2018-10-07] MEDS: GABAPENTIN 800 MG TAB PO SCH ×3 (07:59→20:41)
[2018-10-07] MEDS: FLUOXETINE HCL 20 MG CAP PO SCH (07:59)
[2018-10-07] MEDS: levoFLOXacin 750 MG TAB PO SCH (07:59)
[2018-10-07] MEDS: RALTEGRAVIR POTASSIUM 400 MG TAB PO SCH ×2 (07:59→16:59)
[2018-10-07] MEDS: OSELTAMIVIR PHOSPHATE 75 MG CAP PO SCH ×2 (08:00→20:46)
[2018-10-07] MEDS: FOLIC ACID 1 MG TAB PO SCH (08:00)
[2018-10-07] MEDS: RITONAVIR PO SCH ×2 (08:02→17:01)
[2018-10-07] MEDS: DARUNAVIR ETHANOLATE PO SCH ×2 (08:03→17:00)
[2018-10-07] MEDS: BUDESONIDE/FORMOTEROL FUMARATE 160/4.5 60 PUFFS/INHALER INH SCH ×2 (08:03→20:45)
[2018-10-07] MEDS: NYSTATIN SUSP 500,000 U/5 ML UDC BUCCAL SCH ×4 (08:04→20:41)
[2018-10-07] MEDS: FLUTICASONE PROPIONATE NA SPR 16 GM BTL NAE SCH (08:05)
[2018-10-07] MEDS: DOCUSATE SODIUM 100 MG CAP PO SCH ×2 (08:07→20:45)
--- NOTE | 2018-10-07 10:58 | Hospitalist Progress Note ---
Date of Service October 07, 2018 Assessment & Plan (1) Sepsis: (2) Pneumonia: This is a 53yo M with a PMH of recent CVA in August 2018, HIV, carotid artery disease, COPD, anxiety, depression, neuropathy, tobacco use and other medical problems listed below who presents with generalized weakness, fever and chills for the past week and was found to have sepsis 2/2 PNA vs UTI with urinary retention, acute LLE DVT and Flu A. Significantly improved overnight. Possible septic shock 2/2 pneumonia vs. UTI from urinary retention -No growth on blood culture to date, no growth on final urine culture -De-escalate Cefepime to PO Levaquin for 7 days. ID agreeable to plan -Albuterol nebs, home inhalers, gentle fluids (3) Urinary retention: Had urinary retention yesterday, with 1.4 L initial output of dark urine -Continue monitoring output with turner catheter in place -Urology service consulted * Recommend Turner remain in place x 7-14 days * Will avoid Tamsulosin due to recent acute illness, hypotensive episode * Will arrange outpatient trial of void and urology follow up -Discontinue amitriptyline and ipratropium due to urinary retention (4) DVT (deep venous thrombosis): Found to have acute left lower extremity DVT, in setting of sedentary lifestyle since CVA last month -No evidence of acute PE on chest CTA -IV heparin held due to concern for possible GI bleed. Hgb has remained stable overnight, GI to plan for OP colonoscopy scheduled until October 25 -Discussed with Dr. Brown, who recommends starting the patient on Eliquis. Per GI, stop Eliquis 3 days prior to procedure (5) Anemia: Hgb stable at 9 since yesterday -EGD performed this morning without evidence of bleed -OP colonoscopy scheduled for October 25 -Basic anemia workup labs pending (6) Influenza A: Positive Flu A on PCR -Has had symptoms for last week -Tamiflu BID, contact precautions (7) History of CVA (cerebrovascular accident): Recent CVA 2/2 R ICA occlusion in August 2018 -Discharged recently from group home facility, set up with [facility] in [facility] and is doing rehab a few days a week -Is now wheelchair-bound with residual left facial droop and left-sided weakness -Resuming baby aspirin, plavix today -PT/OT evaluations, conditioning (8) HIV (human immunodeficiency virus infection): Follows with Dr. Blount in clinic. ID following -Continue antivirals -CD4 count 739 in Jun 2018 (9) Oral thrush: Ongoing, continue swish and swallow 4 times daily (10) COPD (chronic obstructive pulmonary disease): Continue home inhalers, nebs. No wheezing noted on lung exam (11) Hypertension: History of labile hypertension. Required pressors last evening due to hypotension that has resolved -Has mildly elevated BP today with 158/95. Will resume amlodipine and Lopressor today, monitor BP closely -Holding chlorthalidone, clonidine and losartan (12) Chronic pain syndrome: Has peripheral neuropathy in setting of alcohol abuse, antivirals -Continue gabapentin and oxycodone -Will resume half of normal Marinol dose at 5mg BID (13) Depression: Continue SSRI (14) Dyslipidemia: Continue atorvastatin (15) Tobacco abuse: Has not smoked in 1 week. -Nicotine patch DVT Ppx: Has been receiving SQ heparin but planning to start Eliquis. Code status: FULL PCP: Jerrod Dispo: Transferred to PCU. Discharge planning ordered. Patient seen in collaboration with Dr. Zarate. Please see addendum. Attending Addendum: care coordinated with AUSTIN Padron please refer to her notes for full details, I agree with her notes patient seen and examined, records reviewed by myself as well on exam, patient seen resting in bed, comfortable states he continues to feel improved less cough- dry no leg pain no other symptoms VS noted and reviewed oriented x 3, not in distress, speaks in sentences with no effort nor accessory muscle use normal rate, regular rhythm, no murmurs clear breath sounds bilaterally non distended, soft, nontender no bipedal edema, erythema, warmth no neuro deficits WBC 5.5 Hg 9.8 Crea 0.88 ASSESSMENT AND PLAN INFLUENZA, PNEUMONIA improving continue Levaquin, Tamiflu LLE DVT Hg stable no overt GI bleeding noted start Eliquis, monitor Hg and signs of bleeding other diagnoses and plan of care as per AUSTIN Padron's notes Yobani Zarate MD Subjective Patient seen and examined. Continuing to feel much better. Still with intermittent coughing but no longer experiencing shortness of breath. Turner catheter draining yellow urine. Denies any fever, chills, lightheadedness, chest pain, nausea, vomiting, abdominal pain, melena or hematochezia. at bedside, discussed the possibility that patient may require rehab once medically stable for discharge before returning home with home health. Both patient and agreeable to this. Review of Systems Review of Systems: At least ten systems reviewed and negative except as noted in the HPI. Physical Exam Physical Exam: General Appearance: WD/WN, no apparent distress, sitting upright in bed Head: normocephalic, atraumatic Eyes: normal inspection, PERRL, EOMI ENT: hearing grossly normal, pharynx normal (moist mucous membranes) Neck: supple, no JVD, no adenopathy Respiratory/Chest: Decreased breath sounds bilaterally but clear. No wheezes, rales or rhonci. No respiratory distress or accessory muscle use Cardiovascular: regular rate, rhythm, no murmur, normal peripheral pulses Abdomen/GI: normal bowel sounds, soft, non-tender to palpation : Turner catheter draining yellow urine Extremities/Musculoskelatal: normal inspection, no calf tenderness, normal capillary refill, no pedal edema Neurologic/Psych: alert, normal mood/affect, oriented x 3, L facial droop, LUE & LLE weakness Skin: normal color, warm/dry Results & Data Vital Signs (Past 12 Hours) Vital Signs Temp Pulse Pulse Resp BP Pulse Ox 10/07/18 07:52 36.7 C 79 16 128/75 94 10/07/18 07:14 83 18 96 10/07/18 05:22 36.9 C 83 16 149/74 H 96 10/06/18 23:56 36.4 C L 82 18 128/75 94 Laboratory Results Short CBC 10/07/18 Range/Units 05:20 WBC 5.52 (4.8-10.8) K/uL Hgb 9.8 L (14.0-18.0) g/dL Hct 29.2 L (42-52) % Plt Count 134 (130-400) K/uL BMP 10/07/18 05:20 Sodium 138 Potassium 4.1 Chloride 107 Carbon Dioxide 28 BUN 10 D Creatinine 0.88 Glucose 127 H Calcium 9.3 (1) DVT (deep venous thrombosis) Affected thrombotic vein of extremity: unspecified vein of extremity Chronicity: unspecified DVT location: lower extremity Laterality: unspecified laterality Qualified Code(s): I82.409 - Acute embolism and thrombosis of unspecified deep veins of unspecified lower extremity (2) Pneumonia Laterality: unspecified laterality Lung location: unspecified part of lung Pneumonia type: due to unspecified organism Qualified Code(s): J18.9 - Pneumonia, unspecified organism
--- NOTE | 2018-10-07 14:26 | Infectious Disease Progress Nt ---
Date of Service October 07, 2018 Assessment & Plan (1) Influenza A: 53-year-old long-standing HIV patient, recently well maintained on antiretrovirals, status post recent CVA, now with influenza A complicated by pneumonia. Also with DVT and urinary retention, now improved with Russo catheter. Antibiotics to be de-escalated to oral Levaquin. Will follow. (2) Pneumonia: (3) HIV (human immunodeficiency virus infection): Subjective Patient seen in follow-up for influenza with pneumonia. Feeling better today, less short of breath. Hemodynamically stable overnight. Remains afebrile. Follow-up cultures negative. Review of Systems Review of Systems: All systems reviewed & are unremarkable except as noted in HPI & below Physical Exam Constitutional: WD/WN, vitals as above comfortable; no acute distress Eyes: PERRL, conjunctivae normal, anicteric sclerae ENMT: external ear and nose normal, oropharynx normal Neck: trachea midline, no thyromegaly neck nontender Respiratory: normal percussion; no respiratory distress and does not use accessory muscles Auscultation: + rhonchi (Right lower lobe) Cardiovascular: Rate/Rhythm: regular rate and regular rhythm Heart Sounds: normal S1 and normal S2; no gallop, no murmur and no cardiac rub Vessels: normal peripheral pulses; no JVD Gastrointestinal (Abdomen): normal bowel sounds, soft, nontender, no hepatosplenomegaly Musculoskeletal: no cyanosis or clubbing, extremities motor strength 5/5 Spine: thoracic spine normal to inspection and lumbar spine normal to inspection; no cervical spinal tenderness Skin: no rashes, warm and dry normal turgor; no lesions Neurologic: awake Psychiatric: A+Ox3, euthymic affect Orientation: cooperative Lymphatic: no cervical or axillary lymphadenopathy no inguinal lymphadenopathy Results & Data Vital Signs (Past 12 Hours) Vital Signs Temp Pulse Pulse Resp BP Pulse Ox 10/07/18 11:38 36.9 C 100 H 20 158/95 H 98 10/07/18 11:10 82 18 100 10/07/18 07:52 36.7 C 79 16 128/75 94 10/07/18 07:14 83 18 96 10/07/18 05:22 36.9 C 83 16 149/74 H 96 Laboratory Results Short CBC 10/07/18 Range/Units 05:20 WBC 5.52 (4.8-10.8) K/uL Hgb 9.8 L (14.0-18.0) g/dL Hct 29.2 L (42-52) % Plt Count 134 (130-400) K/uL BMP 10/07/18 05:20 Sodium 138 Potassium 4.1 Chloride 107 Carbon Dioxide 28 BUN 10 D Creatinine 0.88 Glucose 127 H Calcium 9.3 Diagnostic Findings Microbiology 10/05/18 16:31 Urine,Indwelling Cath Urine Culture - Final No growth - less than 1,000 colonies/mL. 10/04/18 18:14 Blood Blood Culture - Preliminary No growth to date. 10/04/18 18:04 Blood Blood Culture - Preliminary No growth to date. (1) Pneumonia Laterality: unspecified laterality Lung location: unspecified part of lung Pneumonia type: due to unspecified organism Qualified Code(s): J18.9 - Pneumonia, unspecified organism
[2018-10-07] MEDS: AMLODIPINE BESYLATE 5 MG TAB PO SCH (16:59)
[2018-10-07] MEDS: CLOPIDOGREL BISULFATE 75 MG TAB PO SCH (17:16)
[2018-10-07] MEDS ORDERED: OXYCODONE HCL IR 5 MG TAB (IMMEDIATE RELEASE) PO STA (17:49)
[2018-10-07] MEDS: DRONABINOL 2.5 MG CAP PO SCH (20:41)
[2018-10-07] MEDS: METOPROLOL TARTRATE 50 MG TAB PO SCH (20:41)
[2018-10-07] MEDS: APIXABAN 5 MG TABLET PO SCH (20:44)
[2018-10-08] MEDS: NORMOSOL-R 1,000 ML IV SCH ×2 (03:16→17:07)
[2018-10-08] MEDS: OXYCODONE HCL IR 5 MG TAB (IMMEDIATE RELEASE) PO PRN ×2 (05:41→21:00)
[2018-10-08 06:34] LABS: Hematocrit (blood only) 31.2 % (42-52); Hemoglobin 10.5 g/dL (14.0-18.0); Mean Corpuscular Hgb Conc 33.7 g/dL (32-36); Mean Corpuscular Volume 83.9 fL (80-100); Mean Platelet Volume 9.6 fL (7.4-10.4); Platelet Count 148 K/uL (130-400); RDW Coefficient of Variation 15.6 % (11.5-14.5); RDW Standard Deviation 47.6 fL (36.4-46.3); Red Blood Count 3.72 M/uL (4.7-6.1); White Blood Count 6.55 K/uL (4.8-10.8)
[2018-10-08] MEDS: ALBUTEROL 0.5% NEB SOLN 2.5 MG/0.5 ML VIAL NEB SCH ×4 (07:02→18:46)
[2018-10-08 07:12] LABS: BUN Creatinine Ratio 13.2 (10-20); Calcium 8.7 mg/dl (8.5-10.1); Creatinine Clr Calc Pharmacy 106.5 ml/min; Est GFR (African American) 113.4; Est GFR (Non-African American) 97.8; Potassium 3.8 mmol/L (3.5-5.1)
[2018-10-08 07:17] LABS: Ferritin 104.8 ng/ml (8-388)
[2018-10-08] MEDS: RALTEGRAVIR POTASSIUM 400 MG TAB PO SCH ×2 (07:54→17:04)
[2018-10-08] MEDS: FOLIC ACID 1 MG TAB PO SCH (07:55)
[2018-10-08] MEDS: OSELTAMIVIR PHOSPHATE 75 MG CAP PO SCH ×2 (07:55→20:56)
[2018-10-08] MEDS: FLUOXETINE HCL 20 MG CAP PO SCH (07:55)
[2018-10-08] MEDS: AMLODIPINE BESYLATE 5 MG TAB PO SCH (07:55)
[2018-10-08] MEDS: PANTOprazole 40 MG TAB PO SCH ×2 (07:56→20:55)
[2018-10-08] MEDS: ATORVASTATIN 20 MG TAB PO SCH (07:56)
[2018-10-08] MEDS: levETIRAcetam 250 MG TAB PO SCH ×2 (07:56→20:53)
[2018-10-08] MEDS: GABAPENTIN 800 MG TAB PO SCH ×3 (07:56→20:53)
[2018-10-08] MEDS: APIXABAN 5 MG TABLET PO SCH ×2 (07:56→20:54)
[2018-10-08] MEDS: BUDESONIDE/FORMOTEROL FUMARATE 160/4.5 60 PUFFS/INHALER INH SCH ×2 (07:56→20:54)
[2018-10-08] MEDS: DARUNAVIR ETHANOLATE PO SCH ×2 (07:57→17:05)
[2018-10-08] MEDS: RITONAVIR PO SCH ×2 (07:58→17:04)
[2018-10-08] MEDS: FLUTICASONE PROPIONATE NA SPR 16 GM BTL NAE SCH (07:58)
[2018-10-08] MEDS: NYSTATIN SUSP 500,000 U/5 ML UDC BUCCAL SCH ×4 (07:59→20:57)
[2018-10-08] MEDS: METOPROLOL TARTRATE 50 MG TAB PO SCH ×2 (07:59→20:54)
[2018-10-08 08:23] LABS: Folate (Folic Acid) 8.59 ng/ml (>5.38)
[2018-10-08] MEDS: DOCUSATE SODIUM 100 MG CAP PO SCH ×2 (09:12→20:59)
[2018-10-08] MEDS: DRONABINOL 2.5 MG CAP PO SCH ×2 (09:12→21:17)
[2018-10-08] MEDS: levoFLOXacin 750 MG TAB PO SCH (10:10)
--- NOTE | 2018-10-08 13:59 | Hospitalist Progress Note ---
Date of Service October 08, 2018 Assessment & Plan (1) Sepsis: (2) Pneumonia: This is a 53yo M with a PMH of recent CVA in August 2018, HIV, carotid artery disease, COPD, anxiety, depression, neuropathy, tobacco use and other medical problems listed below who presents with generalized weakness, fever and chills for the past week and was found to have sepsis 2/2 PNA vs UTI with urinary retention, acute LLE DVT and Flu A. Possible septic shock 2/2 pneumonia vs. UTI from urinary retention cultures negative Continues to improve Continue Levaquin p.o. -Albuterol nebs, home inhalers, gentle fluids (3) Urinary retention: Positive urinary retention with 1.4 L initial output of dark urine -Continue monitoring output with turner catheter in place -Urology service consulted * Recommend Turner remain in place x 7-14 days * Will avoid Tamsulosin due to recent acute illness, hypotensive episode * Will arrange outpatient trial of void and urology follow up -Discontinue amitriptyline and ipratropium due to urinary retention (4) DVT (deep venous thrombosis): Found to have acute left lower extremity DVT, in setting of sedentary lifestyle since CVA last month -No evidence of acute PE on chest CTA -IV heparin held due to concern for possible GI bleed. Hgb has remained stable overnight, GI to plan for OP colonoscopy scheduled until October 25 -Discussed with Dr. Brown, who recommends starting the patient on Eliquis. Per GI, stop Eliquis 3 days prior to procedure -Tolerating Eliquis well No signs of bleeding (5) Anemia: Hgb stable at 9 since yesterday -EGD performed no source of bleeding identified -OP colonoscopy scheduled for October 25 -Basic anemia workup Iron level 42 TIBC 235 Transferrin 179 (6) Influenza A: Positive Flu A on PCR -Has had symptoms for last week -Tamiflu BID, contact precautions (7) History of CVA (cerebrovascular accident): Recent CVA 2/2 R ICA occlusion in August 2018 -[facility], set up with [facility] in [facility] and is doing rehab a few days a week -Is now wheelchair-bound with residual left facial droop and left-sided weakness Resume aspirin Plavix, monitor -PT/OT evaluations, conditioning (8) HIV (human immunodeficiency virus infection): Follows with Dr. Blount in clinic. ID following -Continue antivirals -CD4 count 739 in Jun 2018 (9) Oral thrush: Ongoing, continue swish and swallow 4 times daily (10) COPD (chronic obstructive pulmonary disease): Continue home inhalers, nebs. No wheezing noted on lung exam (11) Hypertension: History of labile hypertension. Required pressors last evening due to hypotension that has resolved Resumed amlodipine and Lopressor -Holding chlorthalidone, clonidine and losartan noted recent hypotension (12) Chronic pain syndrome: Has peripheral neuropathy in setting of alcohol abuse, antivirals -Continue gabapentin and oxycodone Resume Marinol dose at 5mg BID (13) Depression: Continue SSRI (14) Dyslipidemia: Continue atorvastatin (15) Tobacco abuse: Has not smoked in 1 week. -Nicotine patch DVT Ppx: Has been receiving SQ heparin but planning to start Eliquis. Code status: FULL PCP: Jerrod Dispo: Transferred to PCU. Discharge planning ordered. Subjective Follow-up for pneumonia, flu, DVT Seen resting in bed, not in distress, comfortable next States he continues to feel improved No dyspnea, less dry, Denies chest pain, palpitations, dizziness No leg pain No bleeding Patient seen and examined. Continuing to feel much better. Still with intermittent coughing but no longer experiencing shortness of breath. Turner catheter draining yellow urine. Denies any fever, chills, lightheadedness, chest pain, nausea, vomiting, abdominal pain, melena or hematochezia. at bedside, discussed the possibility that patient may require rehab once medically stable for discharge before returning home with home health. Both patient and agreeable to this. Review of Systems Review of Systems: All systems reviewed & are unremarkable except as noted in HPI & below Physical Exam Physical Exam: General- oriented x 3, not in distress, speaks in sentences with no effort or accessory muscle use Eyes- anicteric Neck- no JVD Lungs- clear BS BL Heart- normal rate, regular rhythm; no murmurs Abdomen- normal bowel sounds, nondistended, soft, nontender Extremities- no pretibial edema, no calf tenderness Neuro- alert, oriented x 3; no gross focal neurologic deficits Skin- warm & dry Results & Data Vital Signs (Past 12 Hours) Vital Signs Temp Pulse Pulse Pulse Resp BP Pulse Ox 10/08/18 11:24 91 H 18 96 10/08/18 10:58 36.9 C 77 16 109/63 95 10/08/18 09:32 80 10/08/18 07:35 36.8 C 81 20 121/78 97 10/08/18 07:03 73 19 96 10/08/18 03:32 36.9 C 78 20 102/61 94 (1) DVT (deep venous thrombosis) Affected thrombotic vein of extremity: unspecified vein of extremity Chronicity: unspecified DVT location: lower extremity Laterality: unspecified laterality Qualified Code(s): I82.409 - Acute embolism and thrombosis of unspecified deep veins of unspecified lower extremity (2) Pneumonia Laterality: unspecified laterality Lung location: unspecified part of lung Pneumonia type: due to unspecified organism Qualified Code(s): J18.9 - Pneumonia, unspecified organism
[2018-10-08 23:33] LABS: Hydrocodone Urine NEGATIVE NG/ML (CUTOFF=50); Hydromor Urine NEGATIVE NG/ML (CUTOFF=50); Marijuana Quant, GCMS Urine 114 NG/ML (CUTOFF=5); Morphine Urine NEGATIVE NG/ML (CUTOFF=50); Norhydrocodone Conf Ur NEGATIVE NG/ML (CUTOFF=50); Noroxycodone Urine 2530 NG/ML (CUTOFF=50); Oxycodone Urine 3820 NG/ML (CUTOFF=50)
[2018-10-09] MEDS: NORMOSOL-R 1,000 ML IV SCH (06:17)
[2018-10-09] MEDS: ALBUTEROL 0.5% NEB SOLN 2.5 MG/0.5 ML VIAL NEB SCH ×3 (07:22→15:13)
[2018-10-09] MEDS: DRONABINOL 2.5 MG CAP PO SCH (08:01)
[2018-10-09] MEDS: DARUNAVIR ETHANOLATE PO SCH (08:02)
[2018-10-09] MEDS: RITONAVIR PO SCH (08:02)
[2018-10-09] MEDS: BUDESONIDE/FORMOTEROL FUMARATE 160/4.5 60 PUFFS/INHALER INH SCH (08:03)
[2018-10-09] MEDS: levETIRAcetam 250 MG TAB PO SCH (08:03)
[2018-10-09] MEDS: APIXABAN 5 MG TABLET PO SCH (08:03)
[2018-10-09] MEDS: METOPROLOL TARTRATE 50 MG TAB PO SCH (08:04)
[2018-10-09] MEDS: GABAPENTIN 800 MG TAB PO SCH ×2 (08:04→15:03)
[2018-10-09] MEDS: PANTOprazole 40 MG TAB PO SCH (08:04)
[2018-10-09] MEDS: ATORVASTATIN 20 MG TAB PO SCH (08:04)
[2018-10-09] MEDS: FLUOXETINE HCL 20 MG CAP PO SCH (08:04)
[2018-10-09] MEDS: FOLIC ACID 1 MG TAB PO SCH (08:04)
[2018-10-09 08:05] LABS: Basophils # (auto) 0.04 K/uL (0-0.2); Basophils % (auto) 0.5 %; Eosinophils # (auto) 0.21 K/uL (0-0.5); Eosinophils % (auto) 2.6 %; Hematocrit (blood only) 34.1 % (42-52); Hemoglobin 11.6 g/dL (14.0-18.0); Immature Granulocytes # (auto) 0.03 K/uL (0.00-0.02); Immature Granulocytes % (auto) 0.4 %; Lymphocytes # (auto) 3.48 K/uL (1.2-3.4); Mean Corpuscular Volume 83.8 fL (80-100); Mean Platelet Volume 9.3 fL (7.4-10.4); Monocytes # (auto) 0.66 K/uL (0.11-0.59); Monocytes % (auto) 8.2 %; Neutrophils # (auto) 3.67 K/uL (1.4-6.5); Neutrophils % (auto) 45.3 %; Platelet Count 156 K/uL (130-400); RDW Coefficient of Variation 15.7 % (11.5-14.5); RDW Standard Deviation 47.7 fL (36.4-46.3); Red Blood Count 4.07 M/uL (4.7-6.1); White Blood Count 8.09 K/uL (4.8-10.8)
[2018-10-09] MEDS: NYSTATIN SUSP 500,000 U/5 ML UDC BUCCAL SCH ×2 (08:05→11:40)
[2018-10-09] MEDS: AMLODIPINE BESYLATE 5 MG TAB PO SCH (08:05)
[2018-10-09] MEDS: FLUTICASONE PROPIONATE NA SPR 16 GM BTL NAE SCH (08:06)
[2018-10-09] MEDS: OSELTAMIVIR PHOSPHATE 75 MG CAP PO SCH (08:06)
[2018-10-09] MEDS: RALTEGRAVIR POTASSIUM 400 MG TAB PO SCH (08:06)
[2018-10-09] MEDS: DOCUSATE SODIUM 100 MG CAP PO SCH (09:12)
[2018-10-09] MEDS: levoFLOXacin 750 MG TAB PO SCH (11:39)
--- NOTE | 2018-10-09 12:16 | Hospitalist Progress Note ---
Date of Service October 09, 2018 Assessment & Plan (1) Sepsis: (2) Pneumonia: This is a 53yo M with a PMH of recent CVA in August 2018, HIV, carotid artery disease, COPD, anxiety, depression, neuropathy, tobacco use and other medical problems listed below who presents with generalized weakness, fever and chills for the past week and was found to have sepsis 2/2 PNA vs UTI with urinary retention, acute LLE DVT and Flu A. Possible septic shock 2/2 pneumonia vs. UTI from urinary retention cultures negative -- BP stable patient clinically improved -- Continue Levaquin p.o. x 2 more days to complete 7 days -- Albuterol nebs, home inhalers, gentle fluids given (3) Urinary retention: Positive urinary retention with 1.4 L initial output of dark urine Russo catheter placed -Urology service consulted * Recommend Russo remain in place x 7-14 days * Will avoid Tamsulosin due to recent acute illness, hypotensive episode * outpatient trial of void and urology follow up -Discontinue amitriptyline and ipratropium due to urinary retention (4) DVT (deep venous thrombosis): Found to have acute left lower extremity DVT, in setting of sedentary lifestyle since CVA last month -No evidence of acute PE on chest CTA -IV heparin held due to concern for possible GI bleed. Hgb has remained stable overnight, GI to plan for OP colonoscopy scheduled until October 25 -Discussed with Dr. Brown, who recommends starting the patient on Eliquis. Per GI, stop Eliquis 3 days prior to procedure -Tolerating Eliquis well, hemoglobin stable now increased to 11 -Will need at least 3 months of anticoagulation Eliquis for what seems to be a provoked DVT -Case management consulted, patient will have assistance with Eliquis x1 month, will need preauthorization from insurance company for the succeeding months Please follow-up insurance coverage for Eliquis (5) Anemia: Hgb stable since being transferred from the ICU -EGD performed no source of bleeding identified -OP colonoscopy scheduled for October 25 -Basic anemia workup Iron level 42 TIBC 235 Transferrin 179 -Start iron supplement -Continue to monitor and follow-up as an outpatient (6) Influenza A: Positive Flu A on PCR -Has had symptoms for last week -Tamiflu BID, contact precautions -We will need 5 more days of Tamiflu twice a day to finish 10 days of therapy (7) History of CVA (cerebrovascular accident): Recent CVA 2/2 R ICA occlusion in August 2018 -Discharged recently from longterm facility, set up with [facility] in [facility] and is doing rehab a few days a week -Is now wheelchair-bound with residual left facial droop and left-sided weakness --Usually on aspirin and Plavix for recent CVA Patient will Eliquis x3 months --We will hold Plavix for now while on Eliquis, and continue aspirin --Resume dual antiplatelet therapy of aspirin and Plavix after treatment --Patient and his prefers to be discharged home with home health services and PT OT (8) HIV (human immunodeficiency virus infection): Follows with Dr. Blount in clinic. ID following -Continue antivirals -CD4 count 739 in Jun 2018 (9) Oral thrush: Ongoing, continue swish and swallow 4 times daily Continue x4 more days (10) COPD (chronic obstructive pulmonary disease): Continue home inhalers, nebs. (11) Hypertension: History of labile hypertension. Required pressors last evening due to hypotension that has resolved Resumed amlodipine and Lopressor -Blood pressure stable overall -Holding chlorthalidone, clonidine and losartan at this time to prevent hypotension Monitor blood pressure as an outpatient (12) Chronic pain syndrome: Has peripheral neuropathy in setting of alcohol abuse, antivirals - Continue gabapentin and oxycodone - Resume Marinol dose at 5mg BID (13) Depression: Continue SSRI (14) Dyslipidemia: Continue atorvastatin (15) Tobacco abuse: Has not smoked in 1 week. -Nicotine patch DVT Ppx: on Eliquis Code status: FULL PCP: Jerrod Dispo: Discharge to home Follow-up with primary care physician in 3 to 5 days Follow-up with [facility] group urologist in 1 week. Follow-up with cigar packer and grader for EGD. Follow-up with neurologist as scheduled. Follow-up with infection disease clinic as scheduled. Subjective ff up for pneumonia, flu Seen resting in bed, comfortable, in good spirits States he feels fine overall Feels much better overall No shortness of breath, coughing much less, no chest pain No chest pain, no dizziness no palpitations States he is ready and would like to be discharged today Patient's at the bedside also agrees with discharge today States they would be able to manage at home with home health services Review of Systems Review of Systems: All systems reviewed & are unremarkable except as noted in HPI & below Physical Exam Physical Exam: General- oriented x 3, not in distress, speaks in sentences with no effort or accessory muscle use Eyes- anicteric Neck- no JVD Lungs- clear breath sounds bilaterally, no crackles/wheezing Heart- normal rate, regular rhythm; no murmurs Abdomen- normal bowel sounds, nondistended, soft, nontender Extremities- no pretibial edema, no calf tenderness Neuro- alert, oriented x 3; no gross focal neurologic deficits Skin- warm & dry Results & Data Vital Signs (Past 12 Hours) Vital Signs Temp Pulse Pulse Pulse Resp BP Pulse Ox 10/09/18 11:17 80 22 130/87 98 10/09/18 11:15 81 18 98 10/09/18 08:00 71 10/09/18 07:45 36.8 C 75 18 111/68 97 10/09/18 07:22 81 18 98 10/09/18 04:35 36.9 C 71 22 134/78 96 (1) DVT (deep venous thrombosis) Affected thrombotic vein of extremity: unspecified vein of extremity Chronicity: unspecified DVT location: lower extremity Laterality: unspecified laterality Qualified Code(s): I82.409 - Acute embolism and thrombosis of unspecified deep veins of unspecified lower extremity (2) Pneumonia Laterality: unspecified laterality Lung location: unspecified part of lung Pneumonia type: due to unspecified organism Qualified Code(s): J18.9 - Pneumonia, unspecified organism
[2018-10-09] MEDS: OXYCODONE HCL IR 5 MG TAB (IMMEDIATE RELEASE) PO PRN (15:02)
--- NOTE | 2018-10-09 18:25 | Discharge Summary ---
Date of Service October 09, 2018 Admission HPI Per Admitting Provider This is a 53yo M with a PMH of recent CVA in August 2018, HIV, carotid artery disease, COPD, anxiety, depression, neuropathy, tobacco use and other medical problems listed below who presents with generalized weakness, fever and chills for the past week. Saw PCP last week for sinus pressure and was prescribed a Z- Maurice, which patient completed today. Continues to endorse subjective fever, chills, cough with productive yellow sputum and shortness of breath. Reports that he is taking home inhalers and using neb treatment. Has also found some relief from Tessalon Perles and guaifenesin syrup as needed. 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 Patient was transferred to [facility] for management and then transferred to [facility] for rehab, where he was recently discharged. Patient is set up with [facility] in [facility] and is doing rehab a few days a week. Is now wheelchair-bound with residual left facial droop and left-sided weakness. Is taking baby aspirin, Plavix and statin daily (he cannot tolerate high-dose statin, however). Has history of HIV and follows with Dr. Blount. In ED, found to be hemodynamically stable. Leukocytosis of 15k. Flu PCR is pending. Chest CTA with right lower lobe airspace opacities suspicious for a pneumonia. Also with lower lobe bronchial wall thickening and right lower lobe mucous plugging. No evidence of acute pulmonary embolism. Venous doppler study with evidence of acute left lower extremity DVT. Denies lightheadedness, confusion, chest pain, palpitations, nausea, vomiting, abdominal pain, dysuria, diarrhea, constipation or lower extremity swelling. Admission Exam Per Admitting Provider General Appearance: WD/WN, no apparent distress, appears chronically ill, left facial droop (chronic) Head: normocephalic, atraumatic Eyes: normal inspection, PERRL, EOMI ENT: hearing grossly normal. +oral thrush on tongue and mucosa Neck: supple, no JVD, no adenopathy Respiratory/Chest: Poor air movement bilaterally. Bibasilar crackles. No wheezes or rhonci. No respiratory distress or accessory muscle use Cardiovascular: regular rate, rhythm, no murmur, normal peripheral pulses Abdomen/GI: normal bowel sounds, soft, non-tender to palpation Extremities/Musculoskelatal: normal inspection, no calf tenderness, normal capillary refill, no pedal edema Neurologic/Psych: alert, oriented x 3, depressed mood, L-sided weakness (chronic) Skin: normal color, warm/dry Principal Diagnosis INFLUENZA, PNEUMONIA, LEFT LOWER LEG DVT Discharge Exam General- oriented x 3, not in distress, speaks in sentences with no effort or accessory muscle use Eyes- anicteric Neck- no JVD Lungs- clear breath sounds bilaterally, no crackles/wheezing Heart- normal rate, regular rhythm; no murmurs Abdomen- normal bowel sounds, nondistended, soft, nontender Extremities- no pretibial edema, no calf tenderness Neuro- alert, oriented x 3; no gross focal neurologic deficits Skin- warm & dry Discharge Data Allergies Allergy/AdvReac Type Severity Reaction Status Date / Time Penicillins Allergy Severe ANAPHYLAXIS Verified 08/28/18 17:00 mivacurium Allergy Intermediate RASH AND Verified 08/28/18 17:00 SKIN PEELING niacin Allergy Intermediate RASH Verified 08/28/18 17:00 Sulfa (Sulfonamide Allergy Unknown "ITCHY Verified 08/28/18 17:00 Antibiotics) RASH" tramadol Allergy Unknown RASH Verified 08/28/18 17:00 shellfish derived AdvReac Intermediate gi symptoms Verified 08/28/18 17:00 topiramate AdvReac Intermediate NAUSEA Verified 08/28/18 17:00 meloxicam AdvReac Unknown GI SYMPTOMS Verified 08/28/18 17:00 Consultations 10/04/18 17:28 ED Decision to Admit Stat 10/04/18 20:10 Consult Case Management - Discharge Planning Routine Consult Infectious Diseases Routine 10/05/18 15:20 Consult Graphotype Operator Routine 10/05/18 15:22 Consult Gastroenterology Routine 10/06/18 10:13 Consult Urology Routine Procedures Performed Operation Date: 10/06/18 08:00 Actual Procedures p Esophagogastroduodenoscopy - Michelle Martin M.D. Ordered Studies 10/04/18 14:36 US venous doppler LE Stat FINDINGS: On the right, no thrombus was visualized within the common femoral superficial femoral or popliteal veins. There was normal color-flow the proximal trifurcation veins of the right calf. In the left, there was nonocclusive thrombus within the distal superficial femoral vein and popliteal vein. The DVT appears acute. Superficial thrombus was also visualized within penetrating veins of the popliteal fossa. IMPRESSION: 1. Acute left lower extremity DVT with involvement of the superficial femoral and popliteal veins 2. No evidence of right lower extremity DVT 10/04/18 16:17 CT angio chest PE protocol Stat FINDINGS: There is hepatic steatosis. Mediastinal lymph nodes are the upper limits of normal in size. There is no pathologic hilar or axillary lymphadenopathy. The ascending thoracic aorta measures 34 mm. There were no pulmonary artery filling defects to indicate acute pulmonary embolism. No pleural effusions are visualized. There is lower lobe bronchial wall thickening with right lower lobe mucous plugging. There are right lower lobe airspace opacity suspicious for a pneumonia. Examination is mildly compromised due to motion artifact. IMPRESSION: 1. No evidence of acute pulmonary embolism 2. Right lower lobe airspace opacities suspicious for a pneumonia. Imaging subsequent to treatment is recommended in follow-up 3. Lower lobe bronchial wall thickening and right lower lobe mucous plugging 10/05/18 19:08 CT head/brain wo con Stat Findings: Small amount of bubbly secretions within the left maxillary sinus. The mastoid air cells are clear. The calvarium and skull base are intact. There is no mass, hematoma, midline shift, acute infarct. The ventricles are normal in size. Old right MCA territory infarcts involving the frontal and right ovary lobes are again noted. There is an old lacunar infarct within the right basal ganglia. Impression: No acute intracranial abnormality. Old right MCA territory infarcts are noted. Hospital Course (1) Sepsis: (2) Pneumonia: This is a 53yo M with a PMH of recent CVA in August 2018, HIV, carotid artery disease, COPD, anxiety, depression, neuropathy, tobacco use and other medical problems listed below who presents with generalized weakness, fever and chills for the past week and was found to have sepsis 2/2 PNA vs UTI with urinary retention, acute LLE DVT and Flu A. Possible septic shock 2/2 pneumonia vs. UTI from urinary retention cultures negative -- BP stable patient clinically improved -- Continue Levaquin p.o. x 2 more days to complete 7 days -- Albuterol nebs, home inhalers, gentle fluids given (3) Urinary retention: Positive urinary retention with 1.4 L initial output of dark urine Russo catheter placed -Urology service consulted * Recommend Russo remain in place x 7-14 days * Will avoid Tamsulosin due to recent acute illness, hypotensive episode * outpatient trial of void and urology follow up -- ff up with [facility] in 1 week (4) DVT (deep venous thrombosis): Found to have acute left lower extremity DVT, in setting of sedentary lifestyle since CVA last month -No evidence of acute PE on chest CTA -IV heparin held due to concern for possible GI bleed. Hgb has remained stable overnight, GI to plan for OP colonoscopy scheduled until October 25 -Discussed with Dr. Brown, who recommends starting the patient on Eliquis. Per GI, stop Eliquis 3 days prior to procedure -Tolerating Eliquis well, hemoglobin stable now increased to 11 -Will need at least 3 months of anticoagulation Eliquis for what seems to be a provoked DVT -Case management consulted, patient will have assistance with Eliquis x1 month, will need preauthorization from insurance company for the succeeding months Please follow-up insurance coverage for Eliquis (5) Anemia: Hgb stable since being transferred from the ICU -EGD performed no source of bleeding identified -OP colonoscopy scheduled for October 25 -Basic anemia workup Iron level 42 TIBC 235 Transferrin 179 -Start iron supplement -Continue to monitor and follow-up as an outpatient (6) Influenza A: Positive Flu A on PCR -Has had symptoms for last week -Tamiflu BID, contact precautions -We will need 5 more days of Tamiflu twice a day to finish 10 days of therapy (7) History of CVA (cerebrovascular accident): Recent CVA 2/2 R ICA occlusion in August 2018 -Discharged recently from assisted facility, set up with [facility] in [facility] and is doing rehab a few days a week -Is now wheelchair-bound with residual left facial droop and left-sided weakness --Usually on aspirin and Plavix for recent CVA Patient will Eliquis x3 months --We will hold Plavix for now while on Eliquis, and continue aspirin --Resume dual antiplatelet therapy of aspirin and Plavix after treatment with Eliquis ff up with Neurologist --Patient and his prefers to be discharged home with home health services and PT OT (8) HIV (human immunodeficiency virus infection): Follows with Dr. Blount in clinic. ID following -Continue antivirals -CD4 count 739 in Jun 2018 (9) Oral thrush: Ongoing, continue swish and swallow 4 times daily Continue x4 more days (10) COPD (chronic obstructive pulmonary disease): Continue home inhalers, nebs. (11) Hypertension: History of labile hypertension. Required pressors last evening due to hypotension that has resolved Resumed amlodipine and Lopressor -Blood pressure stable overall -Holding chlorthalidone, clonidine and losartan at this time to prevent hypotension Monitor blood pressure as an outpatient (12) Chronic pain syndrome: Has peripheral neuropathy in setting of alcohol abuse, antivirals - Continue gabapentin and oxycodone (13) Depression: Continue SSRI (14) Dyslipidemia: Continue atorvastatin (15) Tobacco abuse: Has not smoked in 1 week. -Nicotine patch DVT Ppx: on Eliquis Code status: FULL PCP: Jerrod Dispo: Discharge to home Follow-up with primary care physician in 3 to 5 days [facility] Follow-up with hydrology technician for EGD. Follow-up with neurologist as scheduled. Follow-up with infection disease clinic as scheduled. Total Time Total Time Spent Total Time Spent (In Minutes): 55 minutes Discharge Plan Discharge Items Patient Disposition: Home - Home Health Services Reason For Visit: PNA,LLE DVT Discharge Diagnosis: Influenza infection, pneumonia, left leg DVT or blood clot Condition: Good Discharge Goals: Diagnostic testing and Therapeutic intervention Activity: As commented below Activity Comment: Always with assistance, continue PT and OT at home Lifting: Wait until after follow-up appointment Exercise/Sports: Wait until after follow-up appointment Driving/Machine Use Comment: No driving Non-emergency contact: Primary Care Provider Call non-emergency contact if: you have any medication questions, your symptoms worsen and you have a fever Follow-up/Referrals: Jose Boston MD [Physician] - Jose Leon MD [Physician] - Michelle Martin M.D. [Hospitalist] - Alexandr Elder DO [Primary Care Provider] - Diet: Heart Healthy Addtl Provider Instructions: Please follow-up with primary care physician in 3 to 5 days. The clinic will be calling you for the appointment. Please follow-up with Dr. Boston urologist in 1 week. Please call his office for an appointment. Contact information noted above. Follow-up with Dr. Martin hydrology technician in 2 weeks for colonoscopy. Please call her office for an appointment. Contact information noted above. Follow-up with Dr. Leon as scheduled. Call primary care physician or return to the ER immediately if with recurrence or worsening symptoms. If you have any head trauma, proceed to the ER immediately for evaluation. Call primary care physician immediately if you are having blood in your stools. Please review your new medication list and follow the instructions carefully. Do not take Azithromycin while taking Levaquin. Prescriptions: New Eliquis 5 mg tablet 5 mg PO UD Qty: 70 RF: 1 oseltamivir [Tamiflu] 75 mg Capsule 75 mg PO BID 4 Days Qty: 8 RF: 0 levofloxacin 750 mg Tablet 750 mg PO DAILY@1100 2 Days Qty: 2 RF: 0 ferrous sulfate 325 mg (65 mg iron) tablet 325 mg PO DAILY Qty: 30 RF: 0 Continued Norvir 100 mg Capsule 100 mg PO BID RF: 0 metoprolol tartrate 100 mg Tablet 50 mg PO BID RF: 0 aspirin 81 mg tablet,delayed release (DR/EC) 81 mg PO QAM RF: 0 amitriptyline 50 mg Tablet 100 mg PO HS RF: 0 docusate sodium [Colace] 100 mg Capsule 100 mg PO BID RF: 0 dronabinol [Marinol] 10 mg Capsule 10 mg PO BID RF: 0 furosemide [Lasix] 20 mg Tablet 20 mg PO DAILY PRN (Reason: swelling) RF: 0 albuterol sulfate [ProAir HFA] 90 mcg/actuation Hfa Aerosol Inhaler 2 puff INHALATION Q4 PRN (Reason: Wheezing) RF: 0 fluoxetine [Prozac] 20 mg Capsule 40 mg PO QAM RF: 0 fluticasone propionate [Flonase Allergy Relief] 50 mcg/actuation [place],Suspension 2 spray INTRANASAL QAM RF: 0 oxycodone 5 mg tablet 5 mg PO Q6 PRN (Reason: Breakthrough Pain) RF: 0 Isentress 400 mg Tablet 400 mg PO BID RF: 0 Prezista 600 mg Tablet 600 mg PO BIDM RF: 0 Symbicort 160-4.5 mcg/actuation Hfa Aerosol Inhaler 2 puff INHALATION Q12H RF: 0 atorvastatin 20 mg Tablet 20 mg PO QAM RF: 0 amlodipine 10 mg Tablet 10 mg PO QAM RF: 0 folic acid 1 mg Tablet 1 mg PO QAM RF: 0 gabapentin 800 mg Tablet 800 mg PO TID RF: 0 ipratropium-albuterol 0.5 mg-3 mg(2.5 mg base)/3 mL Solution For Nebulization 3 ml INHALATION UD RF: 0 azithromycin 250 mg tablet 1 - 2 tab PO UD RF: 0 ondansetron HCl 4 mg Tablet 4 mg PO TID PRN (Reason: Nausea) RF: 0 Isentress 400 mg tablet 400 mg PO BID RF: 0 nystatin 100,000 unit/mL Suspension 5 ml BUCCAL QID RF: 0 benzonatate [Tessalon Perles] 100 mg capsule 100 mg PO TID PRN (Reason: Cough) RF: 0 omeprazole 20 mg Capsule,Delayed Release(Dr/Ec) 20 mg PO DAILY RF: 0 codeine-guaifenesin [Cheratussin AC] 10-100 mg/5 mL Liquid 5 ml PO Q6H PRN (Reason: Cough) RF: 0 levetiracetam [Keppra] 750 mg tablet 750 mg PO BID RF: 0 Guaifenesin 200mg/5ml 5 ml PO Q6 PRN (Reason: Cough) RF: 0 Chantix 1 mg Tablet 1 mg PO BID RF: 0 Discontinued clopidogrel [Plavix] 75 mg Tablet 75 mg PO QAM RF: 0 clonidine HCl 0.1 mg Tablet 0.1 mg PO BID RF: 0 chlorthalidone 25 mg Tablet 25 mg PO QAM RF: 0 losartan 100 mg tablet 100 mg PO DAILY RF: 0 Stand-Alone Forms: [facility]/Other Patient Handouts: Catheter Bag Urinary Empty Clean Discharge Orders: Discharge Order (Routine); Ordered 10/09/18 Ordered By: Yobani Zarate Admission Data Admit Date/Time: 10/04/18 18:49 Attending Provider: Yobani Zarate Admit Provider: Byron Rodas Primary Care Provider: Alexandr Elder Other Providers: Ricky Brown ; Africa Blount ; Byron Rodas ; Peewee Tyler II ; Dion Davidson Service: Telemetry Other Interventions: Discharge Summary Assessment (RN) Last Done: 10/09/18 13:37 DC Date/Time DO NOT enter until pt leaves facility: 10/09/18 16:02
--- OUTSIDE RECORDS SUMMARY | 2018-10-10 16:43 | External Medical Summary | Continuity of Care Document ---
:1965 Author Name Rosa Calloway, Provider Address Unavailable Unavailable , Care Team Providers Name Role Phone Afrcia Blount DO Unavailable [email or web address] Carolyn Calloway, [email or web address] Jonathan RINCON Unavailable Unavailable Unavailable Unavailable Unavailable Problems HIV infection, symptomatic (042) (B20) Loss of appetite (783.0) (R63.0) Onychomycosis (110.1) (B35.1) Depression (311) (F32.9) Sinusitis (473.9) (J32.9) Occlusion and stenosis of carotid artery (433.10) (I65.29) Hypertension (401.9) (I10) Allergies and Adverse Reactions Penicillins (Allergy) Zithromax Z-Maurice TABS (Allergy) Medications Isentress 400 MG Oral Tablet; TAKE 1 TABLET TWICE DAILY. DO Africa Monahan Quantity: 60 Refills: 6 Gabapentin 800 MG Oral Tablet; TAKE 1 TABLET 3 TIMES DAILY. Refills: 0 Ritonavir 100 MG Oral Tablet; Take 1 tablet twice daily DO Africa Kearney Quantity: 60 Refills: 6 Aspirin 325 MG Oral Tablet Start: 2010 Refills: 0 Amitriptyline HCl - 50 MG Oral Tablet; 1 tablet twice daily Brodie Leon Start: 14-Apr-2011 Refills: 0 Metoprolol Tartrate 50 MG Oral Tablet; TAKE 1 TABLET TWICE D AILY. Refills: 5 Megestrol Acetate 625 MG/5ML Oral Suspension; TAKE 5 M L BY MOUTH ONCE DAILY. DO Africa Blount Start: 27-Apr-2017 Quantity: 1 150 ML Bottle Refills: 0 oxyCODONE HCl ER 10 MG Oral Tablet ER 12 Hour Abuse-Deterrent; TAKE 2 TABLETS TWICE DAILY Start: 26-Oct-2017 Refills: 0 Prezista 600 MG Oral Tablet; TAKE 1 TABLET TWICE DAILY WITH FOOD. DO Africa Blount Quantity: 60 Refills: 6 Procedures Procedures not documented Immunizations Immunizations not documented Social History - Smoking Status Current every day smoker Plan of Treatment Planned Encounters Appointment; Africa Blount DO Start: 18-Oct-2018 9:30 Request Planned Observations Planned Goals not documented Results No Known Results Results not documented Encounters Appointment; Africa Blount DO 05-Jul-2018 10:00 Encounter Diagnosis: Problem not documented Appointment; Africa Blount DO 26-Oct-2017 11:15 Encounter Diagnosis: Problem not documented Appointment; Africa Blount DO 24-Aug-2017 9:45 Encounter Diagnosis: Problem not documented Appointment; Africa Blount DO 16-Feb-2017 10:30 Encounter Diagnosis: Problem not documented Appointment; Africa Blount DO 18-Oct-2018 9:30 Encounter Diagnosis: Problem not documented
== END 2018-10-09 16:02 | disposition home health service (06) | DRG 974 ==
LOC: ED 13:13 → 2N 18:49 → 2W 21:18 → 1E 10-05 15:09 → 2S 10-06 13:27
DX: G62.9 Polyneuropathy, unspecified; Z88.2 Allergy status to sulfonamides; J10.00 Influenza due to other identified influenza virus with unspecified type of pneumonia; Z79.82 Long term (current) use of aspirin; Z86.73 Personal history of transient ischemic attack (TIA), and cerebral infarction without residual deficits; F17.200 Nicotine dependence, unspecified, uncomplicated; B37.0 Candidal stomatitis; G89.4 Chronic pain syndrome; I77.9 Disorder of arteries and arterioles, unspecified; I82.402 Acute embolism and thrombosis of unspecified deep veins of left lower extremity; A41.9 Sepsis, unspecified organism; J18.9 Pneumonia, unspecified organism; D64.9 Anemia, unspecified; R33.9 Retention of urine, unspecified; B20 Human immunodeficiency virus [HIV] disease; Z88.0 Allergy status to penicillin; J44.9 Chronic obstructive pulmonary disease, unspecified; E78.5 Hyperlipidemia, unspecified; I10 Essential (primary) hypertension

== ENCOUNTER 2018-12-17 11:27 | Inpatient (IN) ==
[2018-12-17 11:55] LABS: Basophils # (auto) 0.05 K/uL (0-0.2); Basophils % (auto) 0.7 %; Eosinophils # (auto) 0.22 K/uL (0-0.5); Eosinophils % (auto) 3.1 %; Hematocrit (blood only) 39.5 % (42-52); Hemoglobin 13.6 g/dL (14.0-18.0); Immature Granulocytes # (auto) 0.02 K/uL (0.00-0.02); Immature Granulocytes % (auto) 0.3 %; Lymphocytes # (auto) 2.93 K/uL (1.2-3.4); Lymphocytes % (auto) 41.5 %; Mean Corpuscular Hgb Conc 34.4 g/dL (32-36); Mean Corpuscular Volume 87.8 fL (80-100); Mean Platelet Volume 9.4 fL (7.4-10.4); Monocytes # (auto) 0.62 K/uL (0.11-0.59); Monocytes % (auto) 8.8 %; Neutrophils # (auto) 3.22 K/uL (1.4-6.5); Neutrophils % (auto) 45.6 %; Platelet Count 194 K/uL (130-400); RDW Coefficient of Variation 15.1 % (11.5-14.5); RDW Standard Deviation 48.1 fL (36.4-46.3); White Blood Count 7.06 K/uL (4.8-10.8)
[2018-12-17] MEDS ORDERED: NITROGLYCERIN SL 0.4 MG/TAB TAB SL STA (12:05)
[2018-12-17] MEDS ORDERED: MoRPHine SULFATE 2 MG/ML CARP IV STA (12:05)
--- NOTE | 2018-12-17 12:06 | XRay Report ---
XR chest 1V portable HISTORY: Atypical chest pain. COMPARISON: Chest 11/24/2018. FINDINGS: The lungs are clear. Cardiac silhouette is normal in size. No pleural effusions. No pneumot horax. IMPRESSION: No acute process. Electronically signed by: Philip Hair M.D. 12/17/2018 12:05 PM
[2018-12-17 12:07] LABS: INR 0.9 (0.9-1.1); Partial Thromboplastin Ratio 0.9; Partial Thromboplastin Time 23.6 Seconds (21.0-31.0); Prothrombin Time 9.5 Seconds (9.0-12.0)
[2018-12-17 12:09] LABS: Alanine Aminotransferase 33 U/L (12-78); Albumin Level 3.7 gm/dl (3.4-5.0); Aspartate Aminotransferase 16 U/L (15-37); BUN Creatinine Ratio 14.3 (10-20); Blood Urea Nitrogen 11 mg/dl (7-18); Carbon Dioxide 26 mmol/L (21-32); Chloride 103 mmol/L (98-107); Est GFR (African American) 119.2; Est GFR (Non-African American) 102.9; Glucose 94 mg/dl (70-99); Potassium 3.7 mmol/L (3.5-5.1); Sodium 137 mmol/L (136-145)
[2018-12-17 12:10] LABS: Calcium 8.8 mg/dl (8.5-10.1)
[2018-12-17 12:13] LABS: Albumin Globulin Ratio 1.1 (0.9-2); Alkaline Phosphatase 89 U/L (45-117); Bilirubin,Total 0.2 mg/dl (0.2-1); Globulin 3.4 gm/dl (2.5-4.0); Total Protein 7.1 gm/dl (6.4-8.2); Troponin I < 0.015 ng/ml (0-0.045)
[2018-12-17] MEDS ORDERED: OPTIRAY 320 125ml IV PRN (13:26)
--- NOTE | 2018-12-17 13:35 | CT Scan Report ---
HEAD CT NONCONTRAST CT DOSE: HISTORY: increased L hand numbness, atypical chest pain. TECHNIQUE: Multiaxial CT images of the head were performed without the use of intravenous contrast. A utomated exposure control was utilized for this study. A dose lowering technique was utilized adheri ng to the principles of ALARA. Comparison: None. Findings: Trace fluid level within the right maxillary sinus. The mastoid air cells are clear. The ca lvarium and skull base are intact. Focal areas of encephalomalacia within the right frontal and parie merle lobes consistent with old infarcts. This remains unchanged. There is also an old lacunar infarct within the right basal ganglia. There is no mass, hematoma, midline shift, or acute infarct. Impression: No significant change compared to the prior study. No acute intracranial abnormality. Old right-sided infarcts are again noted. Electronically signed by: Philip Hair M.D. 12/17/2018 1:33 PM
--- NOTE | 2018-12-17 13:45 | CT Scan Report ---
CHEST CTA for AORTIC DISSECTION CT DOSE: HISTORY: Atypical chest pain. Left hand numbness. TECHNIQUE: Multiaxial CT images of the chest were performed both before and after the intravenous adm inistration of contrast to evaluate the aorta. Maximal intensity projection images were also obtained . A dose lowering technique was utilized adhering to the principles of ALARA. COMPARISON STUDY: Chest CT 11/14/2018. FINDINGS: Noncontrast imaging through the chest shows no evidence for an intramural hematoma within t he thoracic aorta. Normal caliber thoracic aorta with no evidence for dissection. The heart is normal in size. No pleural or pericardial effusions. There are a few scattered filling defects seen within the right lower lobe subsegmental pulmonary arteries consistent with pulmonary emboli. The remaining pulmonary arteries are patent.. No mediastinal or hilar lymphadenopathy. The hepatic steatosis. A 9 m m hypodense lesion within the right hepatic dome. This is technically too small to characterize. The visualized spleen and adrenal glands are unremarkable. Normal esophagus. Healing left anterior sixth rib fracture is again noted. No pneumothorax. The central airways are patent. No focal lung consolida tions to suggest pneumonia. IMPRESSION: 1. No evidence for an aortic dissection. 2. Right lower lobe subsegmental pulmonary emboli. 3. Healing left anterior sixth rib fractures again noted. 4. No focal lung consolidations to suggest pneumonia. Electronically signed by: Philip Hair M.D. 12/17/2018 1:43 PM
--- NOTE | 2018-12-17 14:04 | Emergency Department Note ---
Entered by Candice Perez acting as a scribe for History of Present Illness General Chief complaint: Chest Pain Stated complaint: chest pain Source: patient Mode of arrival: EMS Limitations: no limitations History of Present Illness Provider complaint: Chest pain Onset (ago): hour(s) (around 0900 today) Location: chest and left Radiation: extremity (left arm) Severity: similar to prior episodes (past CT) Pain Consistency: + other (worsening) Maximum Pain Intensity: 5 Current Pain Intensity: 9 Quality: + other (pain) Relieved By: + medication (aspirin, nitroglycerin) Associated symptoms: + diaphoresis, + weakness (left arm and leg weakness (chronic)) and + other (Additional symptoms: difficulty breathing, left hand numbness (chronic)) Treatments prior to arrival: other (aspirin, nitroglycerin) The patient is a 53 year old male with a history of multiple DVTs, COPD, hypertension, brain AVM, HIV, carotid artery stenosis, dyslipidemia, depression, and anxiety who presents to the Emergency Room with complaints of worsening chest pain starting around 0900 today. The patient reports that he woke up drenched in sweat with difficulty breathing and left-sided chest pain radiating down his left arm. He states that he has chronic left arm and leg weakness and left hand numbness secondary to a CVA in August. The patient reports he received aspirin and 2 doses of nitroglycerin when EMS arrived on scene, which somewhat alleviated his pain. He states, however, that his symptoms are returning now and that he feels clammy. He currently rates his pain a 9/10. The patient reports th at he experienced similar chest pain when he had an CT 12-13 years ago. He states that he has been taking his medications, which include Metoprolol, Anaprilin, and Coumadin, as prescribed, and he adds that he has not suffered any recent falls. Home Medications Home Medications Medication Instructions Recorded Confirmed Type Prezista 600 mg PO BIDM 06/08/18 12/17/18 History Symbicort 2 puff INHALATION Q12H 06/08/18 12/17/18 History aspirin 81 mg PO QAM 06/08/18 12/17/18 History dronabinol [Marinol] 10 mg PO QAM 06/08/18 12/17/18 History fluoxetine [Prozac] 40 mg PO QAM 06/08/18 12/17/18 History fluticasone propionate [Flonase 2 spray INTRANASAL QAM 06/08/18 12/17/18 History Allergy Relief] folic acid 1 mg PO QAM 06/08/18 12/17/18 History furosemide [Lasix] 20 mg PO QAM PRN 06/08/18 12/17/18 History oxycodone 5 mg PO Q6H PRN 06/08/18 12/17/18 History gabapentin 800 mg PO TID 08/25/18 12/17/18 History Isentress 400 mg PO BID 10/04/18 12/17/18 History ipratropium-albuterol 3 ml INHALATION Q4H PRN 10/04/18 12/17/18 History omeprazole 20 mg PO QAM 10/04/18 12/17/18 History apixaban [Eliquis] 5 mg PO BID 10/24/18 12/17/18 History ferrous sulfate 325 mg PO Q OTHER DAY 10/24/18 12/17/18 History levetiracetam [Keppra] 1,000 mg PO BID 10/24/18 12/17/18 History albuterol sulfate [Ventolin HFA] 2 puff INHALATION BID PRN 11/14/18 12/17/18 History amlodipine 5 mg PO QAM 11/14/18 12/17/18 History atorvastatin 80 mg PO HS 11/14/18 12/17/18 History metoprolol tartrate 50 mg PO DAILY 11/14/18 12/17/18 History ondansetron 4 mg PO Q8H PRN 11/14/18 12/17/18 History ritonavir 100 mg PO BID 11/14/18 12/17/18 History trazodone 50 - 100 mg PO HS PRN 11/14/18 12/17/18 History Saccharomyces boulardii [Florastor] 250 mg PO BID #20 cap 11/15/18 12/17/18 Rx doxepin 10 mg PO HS PRN 12/17/18 12/17/18 History Allergies Allergy/AdvReac Type Severity Reaction Status Date / Time Penicillins Allergy Severe ANAPHYLAXIS Verified 12/17/18 11:53 mivacurium Allergy Intermediate RASH AND Verified 12/17/18 11:53 SKIN PEELING niacin Allergy Intermediate RASH Verified 12/17/18 11:53 Sulfa (Sulfonamide Allergy Intermediate "ITCHY Verified 12/17/18 11:53 Antibiotics) RASH" tramadol Allergy Mild RASH Verified 12/17/18 11:53 meloxicam AdvReac Intermediate GI SYMPTOMS Verified 12/17/18 11:53 shellfish derived AdvReac Intermediate gi symptoms Verified 12/17/18 11:53 topiramate AdvReac Intermediate NAUSEA Verified 12/17/18 11:53 Past Med/Surg History Medical History Rib fracture (Resolved) DVT (deep venous thrombosis) (Chronic) Chronic pain syndrome (Chronic) Tobacco abuse (Chronic) Carotid artery stenosis (Chronic) Complete R ICA occlusion, L 50-59% HIV (human immunodeficiency virus infection) (Chronic) Depression (Chronic) Anxiety (Chronic) Polyp of colon (Chronic 12/21/12) Hypertension (Chronic) Dyslipidemia (Chronic) COPD (chronic obstructive pulmonary disease) (Chronic) Migraine (Chronic) History of CVA (cerebrovascular accident) (Chronic) "in setting of right carotid artery thrombosis" Carotid stenosis (Chronic) "03/06/15-SAÚL occlusion, LICA with 50-59% stenosis" AVM (arteriovenous malformation) brain (Chronic) History of alcohol abuse (Chronic) Anal dysplasia (Chronic) Neuropathic pain of both feet (Chronic) Surgical History History of colonoscopy (Chronic) History of anal lesion (Chronic) Family History Father Lung cancer Mother Hypertension Social History Preferred Language: Cuban Communication Ability: Effective Diamond Selector Required: No Beliefs That Will Affect Care: None marital status: Current Living Situation: Significant Other Other Information That Helps Us Care for You: No Feels Safe at Home: Yes Safety Concerns: Feels Safe At This Time Smoking Status: Current every day smoker Tobacco Type: cigarettes Cigarettes Per Day: 10 Do You Dip or Chew Tobacco: No Second Hand Exposure: No Tobacco Cessation Education Requested by Patient: No Hx Alcohol Use: No Hx Substance Use: No Review of Systems See HPI for pertinent positives & negatives. and A total of 10 systems reviewed and were otherwise negative Physical Exam Vital Signs Vital Signs - 24 hr 12/17/18 11:27 12/17/18 11:40 12/17/18 12:11 Temperature 37.0 C Temperature Source Oral Sepsis Recent Fever Within 48 Hours No Sepsis Action Taken by Nursing No Action Required Pulse Rate 106 H Pulse Rate [Right Finger] 99 H Respiratory Rate 20 20 Respiratory Effort / Characteristics Non-Labored Respiratory Depth Normal Blood Pressure 146/85 H Blood Pressure [Right Arm] 159/105 H Blood Pressure Mean 105 Blood Pressure Mean [Right Arm] 123 Pulse Oximetry 95 93 Oxygen Delivery Method Room Air Room Air 12/17/18 12:15 12/17/18 13:54 Temperature Temperature Source Sepsis Recent Fever Within 48 Hours Sepsis Action Taken by Nursing Pulse Rate Pulse Rate [Right Finger] 124 H 90 Respiratory Rate 20 20 Respiratory Effort / Characteristics Non-Labored Respiratory Depth Normal Blood Pressure Blood Pressure [Right Arm] 121/98 116/87 Blood Pressure Mean Blood Pressure Mean [Right Arm] 105 96 Pulse Oximetry 95 96 Oxygen Delivery Method Room Air Room Air GENERAL: Awake, alert, well-appearing, in no distress HENT: Normocephalic, atraumatic. Oropharynx unremarkable. EYES: Normal conjunctiva. Sclera non-icteric. NECK: Supple. No nuchal rigidity. RESPIRATORY: Clear to auscultation. No wheezes. Normal respiratory effort. CARDIAC: Normal rate. Normal rhythm. Extremities warm and well perfused. GI: Soft, non-distended. No tenderness to palpation. No rebound or guarding. RECTAL: Deferred. MUSCULOSKELETAL: Atraumatic. Chest examination reveals no tenderness. There is no CVA tenderness to palpation. Mild contracture of the left upper extremity. Decreased movement of the left upper extremity. LOWER EXTREMITIES: Calves are equal size bilaterally and non-tender. No edema. Decreased movement of the left lower extremity. NEURO: No facial droop. No slurred speech. Slight numbness and decreased movement in LUE. Limited movement of the LLE - reported chronic SKIN: Warm and dry. No rash or jaundice noted. Course 1203: The patient was evaluated in room C7, and a complete history and physical examination were performed. 1330: I checked on the patient and updated him on his results. We will order a CT at this time. 1358: I reviewed the patient's case with Fawn Villalta. The patient will be evaluated for further management. Consultations Consultation #1: I reviewed the patient's case with Fawn Villalta. The patient will be evaluated for further management. Time: 13:58 Administered Medications Gadobutrol (Gadavist 65ml) 8.5 ml IV ONCE PRN PRN Reason: Interaction Checking Stop: 12/21/18 17:11 Last Admin: 12/17/18 17:12 Dose: 8.5 ml Documented by: [id number] Discontinued Medications Ioversol (Optiray 320 125ml) 119 ml IV ONCE PRN PRN Reason: Interaction Checking Stop: 12/21/18 13:25 Last Admin: 12/17/18 13:27 Dose: 119 ml Documented by: [id number] Morphine Sulfate (Morphine Sulfate) 2 mg IV NOW STA Stop: 12/17/18 12:06 Last Admin: 12/17/18 12:12 Dose: 2 mg Documented by: [id number] Nitroglycerin (Nitrostat) 0.4 mg SL NOW STA Stop: 12/17/18 12:06 Last Admin: 12/17/18 12:12 Dose: 0.4 mg Documented by: [id number] Medical Decision Making Differential Diagnosis Differential diagnosis: Etiologies such as cardiac ischemia, aortic dissection, pulmonary embolism, pneumonia, pneumothorax, musculoskeletal, infections, pericarditis, myocarditis, esophageal rupture, gastrointestinal, as well as others were entertained. Medical Records Attestation: I reviewed the patient's medical records. Home Medications Current Medication List: was personally reviewed by me Laboratory Data Attestation: I reviewed the patient's lab results. Result diagrams: 12/17/18 11:45 12/17/18 11:45 Lab Results 12/17/18 12/17/18 12/17/18 Range/Units 11:45 11:45 11:45 WBC 7.06 (4.8-10.8) K/uL RBC 4.50 L (4.7-6.1) M/uL Hgb 13.6 L (14.0-18.0) g/dL Hct 39.5 L (42-52) % MCV 87.8 (80-100) fL MCH 30.2 (25-34) pg MCHC 34.4 (32-36) g/dL RDW Std Deviation 48.1 H (36.4-46.3) fL RDW Coeff of Tanesha 15.1 H (11.5-14.5) % Plt Count 194 (130-400) K/uL MPV 9.4 (7.4-10.4) fL Immature Gran % (Auto) 0.3 % Neut % (Auto) 45.6 % Lymph % (Auto) 41.5 % Stoddard % (Auto) 8.8 % Eos % (Auto) 3.1 % Baso % (Auto) 0.7 % Immature Gran # (Auto) 0.02 (0.00-0.02) K/uL Neut # (Auto) 3.22 (1.4-6.5) K/uL Lymph # (Auto) 2.93 (1.2-3.4) K/uL Stoddard # (Auto) 0.62 H (0.11-0.59) K/uL Eos # (Auto) 0.22 (0-0.5) K/uL Baso # (Auto) 0.05 (0-0.2) K/uL PT 9.5 (9.0-12.0) Seconds INR 0.9 (0.9-1.1) APTT 23.6 (21.0-31.0) Seconds PTT Ratio 0.9 Sodium 137 (136-145) mmol/L Potassium 3.7 (3.5-5.1) mmol/L Chloride 103 (98-107) mmol/L Carbon Dioxide 26 (21-32) mmol/L Anion Gap 8.0 (3-11) BUN 11 (7-18) mg/dl Creatinine 0.77 (0.6-1.4) mg/dl Est Cr Clr Drug Dosing Not Reportable Est GFR ( Amer) 119.2 Est GFR (Non-Af Amer) 102.9 BUN/Creatinine Ratio 14.3 (10-20) Glucose 94 (70-99) mg/dl Calcium 8.8 (8.5-10.1) mg/dl Total Bilirubin 0.2 (0.2-1) mg/dl AST 16 (15-37) U/L ALT 33 (12-78) U/L Alkaline Phosphatase 89 (45-117) U/L Troponin I < 0.015 (0-0.045) ng/ml Total Protein 7.1 (6.4-8.2) gm/dl Albumin 3.7 (3.4-5.0) gm/dl Globulin 3.4 (2.5-4.0) gm/dl Albumin/Globulin Ratio 1.1 (0.9-2) Imaging Data Radiologist's Impression: Radiology results as stated below per my review and the radiologist's interpretation: XR chest 1V portable HISTORY: Atypical chest pain. COMPARISON: Chest 11/24/2018. FINDINGS: The lungs are clear. Cardiac silhouette is normal in size. No pleural effusions. No pneumothorax. IMPRESSION: No acute process. Electronically signed by: Philip Hair M.D. 12/17/2018 12:[address] CT DOSE: HISTORY: increased L hand numbness, atypical chest pain. TECHNIQUE: Multiaxial CT images of the head were performed without the use of intravenous contrast. Automated exposure control was utilized for this study. A dose lowering technique was utilized adhering to the principles of ALARA. Comparison: None. Findings: Trace fluid level within the right maxillary sinus. The mastoid air cells are clear. The calvarium and skull base are intact. Focal areas of encephalomalacia within the right frontal and parietal lobes consistent with old infarcts. This remains unchanged. There is also an old lacunar infarct within the right basal ganglia. There is no mass, hematoma, midline shift, or acute infarct. Impression: No significant change compared to the prior study. No acute intracranial abnormality. Old right-sided infarcts are again noted. Electronically signed by: Philip Hair M.D. 12/17/2018 1:33 PM CHEST CTA for AORTIC DISSECTION CT DOSE: HISTORY: Atypical chest pain. Left hand numbness. TECHNIQUE: Multiaxial CT images of the chest were performed both before and after the intravenous administration of contrast to evaluate the aorta. Maximal intensity projection images were also obtained. A dose lowering technique was utilized adhering to the principles of ALARA. COMPARISON STUDY: Chest CT 11/14/2018. FINDINGS: Noncontrast imaging through the chest shows no evidence for an intramural hematoma within the thoracic aorta. Normal caliber thoracic aorta with no evidence for dissection. The heart is normal in size. No pleural or pericardial effusions. There are a few scattered filling defects seen within the right lower lobe subsegmental pulmonary arteries consistent with pulmonary emboli. The remaining pulmonary arteries are patent.. No mediastinal or hilar lymphadenopathy. The hepatic steatosis. A 9 mm hypodense lesion within the right hepatic dome. This is technically too small to characterize. The visualized spleen and adrenal glands are unremarkable. Normal esophagus. Healing left ante rior sixth rib fracture is again noted. No pneumothorax. The central airways are patent. No focal lung consolidations to suggest pneumonia. IMPRESSION: 1. No evidence for an aortic dissection. 2. Right lower lobe subsegmental pulmonary emboli. 3. Healing left anterior sixth rib fractures again noted. 4. No focal lung consolidations to suggest pneumonia. Electronically signed by: Philip Hair M.D. 12/17/2018 1:43 PM ECG Data Attestation: I personally reviewed and interpreted this ECG as follows: Indication: chest pain Rate (beats per minute): 102 Rhythm: sinus tachycardia Findings: + other (normal axis); no ST depression and no ST elevation Additional Comments: Initial EKG performed at 1130. Repeat EKG performed at 1208. Findings include: normal sinus rhythm, 92 BPM, no significant change from previous. Blood Pressure Blood Pressure Findings: Normal blood pressure MDM Narrative 53-year-old presenting with substernal chest pain rating left arm that developed this morning did improve with some nitroglycerin. Received aspirin nitroglycerin prior to arrival. History of HIV, DVT, COPD, migraine and the patient is on Eliquis and states compliance. Denies any trauma or fever. No significant cardiac history reported. Woke up around 9 AM with the symptoms. Reported diaphoresis with this. Pain improved with 5 out of 10 from severe pain with nitroglycerin earlier now returning. Repeat EKG was obtained without significant changes. Nitroglycerin small amount of morphine given. Anticoagulated lowering suspicion for PE. CT scan without evidence of dissection. CT scan does show a subsegmental right lower lobe pulmonary embolism. States compliance with his Eliquis and prior negative CT without evidence of blood clot in September making this an interesting finding. No evidence of significant hemodynamic or cardiac instability. Patient does note new neurological symptoms in his left hand with numbness, does have a history of decreased mobility secondary to prior stroke earlier this year. No significant tenderness of the left upper extremity but states there is some pain at times. CT scan of the head was completed without acute findings. Would not give this patient TPA at this time based on the minimal findings. Discussed with the hospitalist for further evaluation given his chest pain with PE on Eliquis as well as these neurological findings in his left upper extremity. Impression & Plan Chest pain, Pulmonary embolism, Numbness of left hand Discharge Plan Visit Data *Final* Discharge Date/Time: 12/17/18 15:17 Chief Complaint: Chest Pain Stated Complaint: chest pain ED Provider: Navneet Rajput Discharge Problem: Chest pain, Pulmonary embolism, Numbness of left hand Patient Disposition: Admitted As Inpatient Discharge Instructions Interventions: ED Discharge Assessment Last Done: 12/17/18 15:17 The sushilaibe's documentation has been prepared under my direction and personally reviewed by me in its entirety. I confirm that the note above accurately reflects all work, treatment, procedures, and medical decision making performed by me.
[2018-12-17] MEDS ORDERED: PHARMACIST DISCHARGE MED REC CONSULT PRN (15:37)
[2018-12-17] MEDS ORDERED: ACETAMINOPHEN 325 MG TAB PO PRN (15:37)
[2018-12-17] MEDS ORDERED: NITROGLYCERIN SL 0.4 MG/TAB TAB SL PRN (15:37)
[2018-12-17] MEDS ORDERED: TRAZODONE HCL 50 MG TAB PO PRN (15:52)
[2018-12-17] MEDS ORDERED: Heparin IV Standard *NO* Bolus IV ONE (15:53)
--- NOTE | 2018-12-17 16:37 | XRay Report ---
XR orbits for MRI HISTORY: 53 years-old Male HX METAL IN EYES SINCE LAST MRI screening for MRI COMPARISON: The head 12/17/2018 TECHNIQUE: 3 views of the orbits FINDINGS: No opaque foreign body of the orbits identified. No acute facial bone fracture identified. IMPRESSION: No opaque foreign body of the orbits. The above report was generated using voice recognition software. It may contain grammatical, syntax o r spelling errors. Electronically signed by: Khoa Trevizo M.D. 12/17/2018 4:36 PM
[2018-12-17] MEDS ORDERED: GADOBUTROL 65ML VIAL IV PRN (17:12)
--- NOTE | 2018-12-17 17:28 | History & Physical Report ---
Date of Service December 17, 2018 Assessment & Plan (1) Pulmonary embolism: -Admit to telemetry -Patient presenting from home with reports of chest pain -In the ED, CTA chest showing subsegmental right lower lobe pulmonary embolism -Diagnosed with DVT 09/2018 and was started on Eliquis -Patient reports compliance with all medications -Saturating well on room air, hemodynamically stable -Possible Eliquis failure, will place on IV heparin for now -May need to discuss case with Dr. 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 -Was previously on aspirin and Plavix, however when DVT was diagnosed 09/2018 and patient was started on Eliquis, Plavix was stopped, aspirin was continued -will check brain MRI/MRA -Continue aspirin and statin (5) Hypertension: -BP elevated, placed on topical nitro -Continue home doses of amlodipine and metoprolol for now, may need to make adjustments (6) HIV (human immunodeficiency virus infection): -Stable -Continue Prezista, ritonavir, and Isentress (7) COPD (chronic obstructive pulmonary disease): -No signs of acute exacerbation, continue home inhalers (8) Chronic pain syndrome: -Continue home dose of oxycodone and gabapentin (9) Tobacco abuse: -Patient counseled regarding tobacco cessation -Nicotine patch ordered (10) DVT prophylaxis: -On IV heparin as above History of Present Illness Chief Complaint: Chest pain Primary Care Provider: Alexandr Elder DO 53-year-old male who presents the ED with chest pain. Patient reports that whenever he woke up this morning, he had left-sided chest pain that was radiating into his left arm with associated left arm numbness. Patient has history of CVA with left-sided hemiparesis. He denies any worsening of his left-sided weakness. Patient rates the pain at 9/10. EMS was called. Patient reports his blood pressure was 190/80. He denies shortness of breath. No lightheadedness, dizziness, diaphoresis, syncopal event. Patient reports he otherwise has been feeling well recently. Reports compliance with all medications. No abdominal pain, nausea, vomiting, diarrhea. He denies any urinary symptoms. In the ED, initial troponin is negative and EKG does not show any acute ST changes. CTA chest shows right lower lobe subsegmental pulmonary embolism. Head CT negative for acute findings. Patient has remained hemodynamically stable and is saturating well on room air.Other labs are unremarkable. Patient was given sublingual nitroglycerin and IV morphine with minimal improvement in the pain. Allergies Allergy/AdvReac Type Severity Reaction Status Date / Time Penicillins Allergy Severe ANAPHYLAXIS Verified 12/17/18 11:53 mivacurium Allergy Intermediate RASH AND Verified 12/17/18 11:53 SKIN PEELING niacin Allergy Intermediate RASH Verified 12/17/18 11:53 Sulfa (Sulfonamide Allergy Intermediate "ITCHY Verified 12/17/18 11:53 Antibiotics) RASH" tramadol Allergy Mild RASH Verified 12/17/18 11:53 meloxicam AdvReac Intermediate GI SYMPTOMS Verified 12/17/18 11:53 shellfish derived AdvReac Intermediate gi symptoms Verified 12/17/18 11:53 topiramate AdvReac Intermediate NAUSEA Verified 12/17/18 11:53 Home Medications Home Medications Medication Instructions Recorded Confirmed Type Prezista 600 mg PO BIDM 06/08/18 12/17/18 History Symbicort 2 puff INHALATION Q12H 06/08/18 12/17/18 History aspirin 81 mg PO QAM 06/08/18 12/17/18 History dronabinol [Marinol] 10 mg PO QAM 06/08/18 12/17/18 History fluoxetine [Prozac] 40 mg PO QAM 06/08/18 12/17/18 History fluticasone propionate [Flonase 2 spray INTRANASAL QAM 06/08/18 12/17/18 History Allergy Relief] folic acid 1 mg PO QAM 06/08/18 12/17/18 History furosemide [Lasix] 20 mg PO QAM PRN 06/08/18 12/17/18 History oxycodone 5 mg PO Q6H PRN 06/08/18 12/17/18 History gabapentin 800 mg PO TID 08/25/18 12/17/18 History Isentress 400 mg PO BID 10/04/18 12/17/18 History ipratropium-albuterol 3 ml INHALATION Q4H PRN 10/04/18 12/17/18 History omeprazole 20 mg PO QAM 10/04/18 12/17/18 History apixaban [Eliquis] 5 mg PO BID 10/24/18 12/17/18 History ferrous sulfate 325 mg PO Q OTHER DAY 10/24/18 12/17/18 History levetiracetam [Keppra] 1,000 mg PO BID 10/24/18 12/17/18 History albuterol sulfate [Ventolin HFA] 2 puff INHALATION BID PRN 11/14/18 12/17/18 History amlodipine 5 mg PO QAM 11/14/18 12/17/18 History atorvastatin 80 mg PO HS 11/14/18 12/17/18 History metoprolol tartrate 50 mg PO DAILY 11/14/18 12/17/18 History ondansetron 4 mg PO Q8H PRN 11/14/18 12/17/18 History ritonavir 100 mg PO BID 11/14/18 12/17/18 History trazodone 50 - 100 mg PO HS PRN 11/14/18 12/17/18 History Saccharomyces boulardii [Florastor] 250 mg PO BID #20 cap 11/15/18 12/17/18 Rx doxepin 10 mg PO HS PRN 12/17/18 12/17/18 History Past Med/Surg History Medical History Tobacco abuse (Chronic) Rib fracture (Resolved) DVT (deep venous thrombosis) (Chronic) Chronic pain syndrome (Chronic) Tobacco abuse (Chronic) Carotid artery stenosis (Chronic) Complete R ICA occlusion, 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% HIV (human immunodeficiency virus infection) (Chronic) Depression (Chronic) Anxiety (Chronic) Polyp of colon (Chronic 12/21/12) Hypertension (Chronic) Dyslipidemia (Chronic) COPD (chronic obstructive pulmonary disease) (Chronic) Migraine (Chronic) History of CVA (cerebrovascular accident) (Chronic) "in setting of right carotid artery thrombosis" Carotid stenosis (Chronic) "03/06/15-SAÚL occlusion, LICA with 50-59% stenosis" AVM (arteriovenous malformation) brain (Chronic) History of alcohol abuse (Chronic) Anal dysplasia (Chronic) Neuropathic pain of both feet (Chronic) Surgical History History of colonoscopy (Chronic) History of anal lesion (Chronic) Family History Father Lung cancer Mother Hypertension Social History Preferred Language: Japanese Communication Ability: Effective 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 Saleem's addendum for physical exam Results & Data Vital Signs (Past 12 Hours) Vital Signs Temp Pulse Pulse Resp BP BP Pulse Ox 12/17/18 15:38 36.6 C 87 18 161/90 H 97 12/17/18 15:16 90 16 152/99 H 97 12/17/18 13:54 90 20 116/87 96 12/17/18 12:15 124 H 20 121/98 95 12/17/18 12:11 99 H 20 159/105 H 12/17/18 11:40 93 12/17/18 11:27 37.0 C 106 H 20 146/85 H 95 Laboratory Results Short CBC 12/17/18 Range/Units 11:45 WBC 7.06 (4.8-10.8) K/uL Hgb 13.6 L (14.0-18.0) g/dL Hct 39.5 L (42-52) % Plt Count 194 (130-400) K/uL BMP 12/17/18 11:45 Sodium 137 Potassium 3.7 Chloride 103 Carbon Dioxide 26 BUN 11 Creatinine 0.77 Glucose 94 Calcium 8.8 Cardiac Enzymes 12/17/18 Range/Units 11:45 Troponin I < 0.015 (0-0.045) ng/ml Liver Function 12/17/18 Range/Units 11:45 Total Bilirubin 0.2 (0.2-1) mg/dl AST 16 (15-37) U/L ALT 33 (12-78) U/L Alkaline Phosphatase 89 (45-117) U/L Albumin 3.7 (3.4-5.0) gm/dl Diagnostic Findings CXR IMPRESSION: No acute process. CTA CHEST IMPRESSION: 1. No evidence for an aortic dissection. 2. Right lower lobe subsegmental pulmonary emboli. 3. Healing left anterior sixth rib fractures again noted. 4. No focal lung consolidations to suggest pneumonia. Head CT Impression: No significant change compared to the prior study. No acute intracranial abnormality. Old right-sided infarcts are again noted. Code Status & VTE Plan Code Status Patient is a full code as per Dr. Saleem's discussion with the patient. VTE Prophylaxis Plan VTE Prophylaxis will be ordered: Yes Supervising Physician Co-Signing Physician Notes Patient is a 53-year-old male with complicated medical history presents with history of left-sided chest pain radiating to the arms, associated with the left arm numbness which started this morning. Patient has history of chronic residual left-sided weakness secondary to CVA. He also has history of DVT and is on Eliquis for anticoagulation. He admits to taking Eliquis regularly. He was noted to have elevated blood pressure while in ED. CTA showed no evidence of aortic dissection, but showed findings suggestive of right lower lobe subsegmental pulmonary PE. No signs of consolidation noted. MRI brain showed no acute intracranial findings. Chest pain is thought to be secondary to acute pulmonary embolism. Physical Exam: Vitals signs as noted above General Appearance:Moderately built and nourished, no apparent distress Head: normocephalic, Atraumatic Eyes: normal inspection, EOMI, PERRL Neck: supple, Trachea midline Respiratory/Chest: Decreased breath sounds, CTA, No accessory muscle use Cardiovascular: S1, S2, No murmur, +Tachycardia Abdomen/GI:Soft, Non tender, Bowel sounds present Extremities/Musculoskelatal:normal inspection, no edema Neurologic/Psych:AAOX3, Left sided weakness, UR> LE 3-4/5 Skin: normal color, warm Acute PE: H/O DVT on Eliquis Will consider as failure of Eliquis Discontinue Eliquis Agree with starting on IV heparin Consider starting on Coumadin tomorrow Oxygen supplementation as needed Left arm numbness MRI brain showed no acute intracranial findings Monitor Consider Neuro Eval if worsens I personally reviewed the record. Patient is interviewed and examined at bedside. Patient's care is coordinated with Shruti Freedman INSURANCE CLAIMS PROCESSOR. Please refer to the documentation above for details of patient's presentation and for discussion of other issues.
[2018-12-17] MEDS: OXYCODONE HCL IR 5 MG TAB (IMMEDIATE RELEASE) PO PRN ×2 (17:31→23:28)
[2018-12-17] MEDS: NITROGLYCERIN 2% OINTMENT 30GM TUBE EXT SCH ×2 (17:33→23:28)
[2018-12-17] MEDS: Heparin Adult STANDARD Wt-Based Dextrose 5% 25,000 units/500 mL IV SCH (17:34)
[2018-12-17] MEDS: NICOTINE 21 MG/24 HR TDSY TD SCH (17:41)
--- NOTE | 2018-12-17 17:47 | Magnetic Resonance Report ---
MR angio head wo con HISTORY: 53 years-old Male left hand numbness acute strokelike symptoms with left arm numbness, high blood pressure and chest pain. History of chronic occlusion of the right internal carotid artery, di minutive right MCA. Temporal lobe vascular malformation. Remote right cerebral hemispheric infarcts. COMPARISON: CT head of same day, CTA had and neck 08/22/2018 TECHNIQUE: MRA of the head was obtained without the use of IV contrast utilizing 3-D [id number] equencing with MIP reformats. All measurements were obtained according to NASCET criteria. FINDINGS: There is chronic occlusion of the right ICA with minimal reconstitution of flow noted about the ophth almic segment. Diminutive flow within the right MCA, likely secondary to collateral flow via the circ le of [place]. The left internal carotid artery, left MCA and left anterior cerebral artery appear nor mal. Diminutive right anterior cerebral artery is also unchanged, likely developmental. Imaged bilateral vertebral arteries appear patent and normal. Basilar and bilateral posterior cerebra l arteries appear normal and are also patent. No new high-grade stenosis, aneurysm, dissection or pro ximal branch occlusion identified. Remote right hemispheric infarcts redemonstrated. The previously d escribed AVM of the left temporal lobe is better seen on comparison. IMPRESSION: 1. No acute abnormality. 2. Chronic occlusion of the distal right ICA with diminutive right MCA, likely secondary to retrograd e flow via the [place] of [place]. The above report was generated using voice recognition software. It may contain grammatical, syntax o r spelling errors. Electronically signed by: Khoa Trevizo M.D. 12/17/2018 5:46 PM
--- NOTE | 2018-12-17 18:12 | Magnetic Resonance Report ---
MR brain wo/w con HISTORY: 53 years-old Male left hand numbness acute left hand numbness COMPARISON: MRI of the head of same day, CT head 12/17/2018, CTA head 09/08/2018, brain MRI 03/25/2016 TECHNIQUE: Multiplanar multisequence MRI of the brain was obtained both with and without the use of G adavist FINDINGS: Lead Furnace Operator localizer images demonstrate no gross extracranial abnormality. Motion degraded exam. There is no restricted diffusion to suggest acute or subacute infarction. Punctate focus of slightly increased signal about the centrum semiovale right frontal lobe on the diffusion-weighted sequences, image 23 series 5 demonstrates increased signal on the T2 series suggestive of T2 shine through. Midline fract ures including the corpus callosum, brainstem, optic chiasm, pituitary and pineal glands appear unrem arkable on the sagittal T1 series. No cerebellar tonsillar herniation. Mild degenerative changes note d about the imaged cervical spine. No acute intracranial hemorrhage, midline shift, abnormal extra-ax ial collections, hydrocephalus or intracranial mass. Mild age-related involutional changes. Moderate patchy T2/FLAIR hyperintensities about the white matter suggest chronic microvascular ischemic diseas e. Encephalomalacia and gliosis about the right cerebral hemisphere compatible with areas of prior re mote infarction. No new areas of abnormal intra-axial or extra-axial enhancement identified. The prev iously described vascular lesion of the left cerebral hemisphere is better seen on comparison. No amber dence of mesial temporal sclerosis, cortical dysplasia or acute seizure focus. Chronic loss of flow-void of the right ICA. Mild to moderate mucosal thickening of the maxillary sinu ses with air-fluid levels noted on the right suggestive of acute disease. Sigmoidal bowing and spurri ng of the nasal septum. Orbits, skull and soft tissues are unremarkable. IMPRESSION: 1. No acute intracranial abnormality identified, specifically no acute or subacute infarction. 2. Chronic findings as above include age-related involutional changes with moderate chronic microvasc ular ischemic disease and encephalomalacia with gliosis related to remote infarctions of the right ce rebral hemisphere. 3. No abnormal enhancement. The above report was generated using voice recognition software. It may contain grammatical, syntax o r spelling errors. Electronically signed by: Khoa Trevizo M.D. 12/17/2018 6:10 PM
[2018-12-17] MEDS: DARUNAVIR ETHANOLATE 600 MG TAB PO SCH (18:42)
[2018-12-17] MEDS: RITONAVIR 100 MG TAB PO SCH (20:22)
[2018-12-17] MEDS: SACCHAROMYCES BOULARDII 250 MG CAP PO SCH (20:22)
[2018-12-17] MEDS: GABAPENTIN 800 MG TAB PO SCH (20:23)
[2018-12-17] MEDS: levETIRAcetam 500 MG TAB PO SCH (20:23)
[2018-12-17] MEDS: BUDESONIDE/FORMOTEROL FUMARATE 160/4.5 60 PUFFS/INHALER INH SCH (20:24)
[2018-12-17] MEDS: ATORVASTATIN 40 MG TAB PO SCH (20:24)
[2018-12-17] MEDS: RALTEGRAVIR POTASSIUM 400 MG TAB PO SCH (20:24)
[2018-12-17 23:46] LABS: Partial Thromboplastin Ratio 1.2; Partial Thromboplastin Time 33.3 Seconds (21.0-31.0)
[2018-12-18] MEDS ORDERED: HEPARIN IV BOLUS 6,000 UNITS in SYRINGE 0 ML IV ONE (00:30)
[2018-12-18] MEDS: NITROGLYCERIN 2% OINTMENT 30GM TUBE EXT SCH ×4 (05:18→23:24)
[2018-12-18 06:20] LABS: Hematocrit (blood only) 39.5 % (42-52); Hemoglobin 13.6 g/dL (14.0-18.0); Mean Corpuscular Hgb Conc 34.4 g/dL (32-36); Mean Platelet Volume 9.6 fL (7.4-10.4); Platelet Count 206 K/uL (130-400); RDW Coefficient of Variation 15.1 % (11.5-14.5); RDW Standard Deviation 49.1 fL (36.4-46.3); Red Blood Count 4.44 M/uL (4.7-6.1); White Blood Count 5.83 K/uL (4.8-10.8)
[2018-12-18] MEDS: OXYCODONE HCL IR 5 MG TAB (IMMEDIATE RELEASE) PO PRN ×2 (06:27→13:09)
[2018-12-18 06:43] LABS: Partial Thromboplastin Ratio 3.1
[2018-12-18 06:47] LABS: Partial Thromboplastin Time 83.3 Seconds (21.0-31.0)
[2018-12-18 06:51] LABS: BUN Creatinine Ratio 13.7 (10-20); Calcium 9.2 mg/dl (8.5-10.1); Creatinine Clr Calc Pharmacy 115.9 ml/min; Est GFR (African American) 117.4; Est GFR (Non-African American) 101.3; Potassium 3.5 mmol/L (3.5-5.1)
[2018-12-18] MEDS: RALTEGRAVIR POTASSIUM 400 MG TAB PO SCH ×2 (08:17→20:37)
[2018-12-18] MEDS: FOLIC ACID 1 MG TAB PO SCH (08:17)
[2018-12-18] MEDS: FLUOXETINE HCL 20 MG CAP PO SCH (08:17)
[2018-12-18] MEDS: METOPROLOL TARTRATE 50 MG TAB PO SCH (08:17)
[2018-12-18] MEDS: GABAPENTIN 800 MG TAB PO SCH ×3 (08:17→20:33)
[2018-12-18] MEDS: levETIRAcetam 500 MG TAB PO SCH ×2 (08:17→20:37)
[2018-12-18] MEDS: AMLODIPINE BESYLATE 5 MG TAB PO SCH (08:17)
[2018-12-18] MEDS: ASPIRIN 81 MG ECTAB PO SCH (08:17)
[2018-12-18] MEDS: RITONAVIR 100 MG TAB PO SCH ×2 (08:18→20:36)
[2018-12-18] MEDS: PANTOprazole 40 MG TAB PO SCH (08:18)
[2018-12-18] MEDS: SACCHAROMYCES BOULARDII 250 MG CAP PO SCH ×2 (08:18→20:36)
[2018-12-18] MEDS: FERROUS SULFATE 325 MG TAB PO SCH (08:18)
[2018-12-18] MEDS: DARUNAVIR ETHANOLATE 600 MG TAB PO SCH ×2 (08:18→16:45)
[2018-12-18] MEDS: DRONABINOL 2.5 MG CAP PO SCH (08:21)
[2018-12-18] MEDS: NICOTINE 21 MG/24 HR TDSY TD SCH (08:21)
[2018-12-18] MEDS: BUDESONIDE/FORMOTEROL FUMARATE 160/4.5 60 PUFFS/INHALER INH SCH ×2 (08:22→20:33)
--- NOTE | 2018-12-18 10:58 | Ultrasound Report ---
BILATERAL LOWER EXTREMITY VENOUS DOPPLER HISTORY: Acute pain and swelling of the lower extremities DVT COMPARISON STUDY: Duplex venous Doppler study 10/04/2018. FINDINGS: There is normal compressibility, flow, and augmentation within the bilateral lower extremit y deep venous systems. Resolution of the previously described DVT of the left lower extremity. IMPRESSION: No DVT within the right or left lower extremity. Electronically signed by: Khoa Trevizo M.D. 12/18/2018 10:56 AM
[2018-12-18 12:53] LABS: Partial Thromboplastin Ratio 1.6; Partial Thromboplastin Time 43.9 Seconds (21.0-31.0)
[2018-12-18] MEDS ORDERED: HEPARIN IV BOLUS 3,000 UNITS in SYRINGE 0 ML IV ONE (13:40)
--- NOTE | 2018-12-18 13:55 | Hospitalist Progress Note ---
Date of Service December 18, 2018 Assessment & Plan (1) Pulmonary embolism: 53-year-old male with history of HIV, CVA with left-sided weakness, hypertension, COPD, other problems noted below presenting with chest pain. -Admit to telemetry -Patient presenting from home with reports of chest pain -In the ED, CTA chest showing subsegmental right lower lobe pulmonary embolism -Diagnosed with DVT 09/2018 and was started on Eliquis -Patient reports compliance with all medications Hemodynamically stable, saturating on room air Tolerating heparin drip so far We will discuss further with plastic welding machine operator Dr. Aguirre (2) Chest pain: -Patient reporting left-sided chest pain with radiation into the left arm with left hand numbness ACS ruled out, troponins negative x3, EKG no signs of ischemia Echocardiogram: Pending Chest pain did not resolve with nitroglycerin Rule out pericarditis? Follow-up echo, check ESR Possible pleurisy? Muscular skeletal pain? 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 -Was previously on aspirin and Plavix, however when DVT was diagnosed 09/2018 and patient was started on Eliquis, Plavix was stopped, aspirin was continued Brain MRI: No signs of acute infarct Brain MRA: No signs of acute occlusion -Continue aspirin and statin (5) Hypertension: -BP elevated upon admission Blood pressure improved since admission -Continue home doses of amlodipine and metoprolol (6) HIV (human immunodeficiency virus infection): -Stable -Continue Prezista, ritonavir, and Isentress (7) COPD (chronic obstructive pulmonary disease): -No signs of acute exacerbation, continue home inhalers (8) Chronic pain syndrome: -Continue home dose of oxycodone and gabapentin (9) Tobacco abuse: -Patient counseled regarding tobacco cessation -Nicotine patch ordered (10) DVT prophylaxis: -On IV heparin as above Case discussed with patient in detail and at length He is understanding, comfortable agreeable with plan of care Subjective Follow-up for acute pulmonary embolism, chest pain Seen resting in bed, comfortable, in good spirits States left-sided chest pain still about the same as yesterday, sharp, intermittent radiation to the left arm, mostly worse with movement and inspiration, no other associated symptoms Has exertional shortness of breath, mild, denies fevers, chills, cough, sputum Left-sided weakness is improving, undergoing physical therapy as an outpatient Denies other symptoms Review of Systems Review of Systems: All systems reviewed & are unremarkable except as noted in HPI & below Physical Exam Physical Exam: General- oriented x 3, not in distress, speaks in sentences with no effort or accessory muscle use Eyes- anicteric Neck- no JVD Lungs- clear breath sounds bilaterally, no rales/wheezes Heart- normal rate, regular rhythm; no murmurs Abdomen- normal bowel sounds, nondistended, soft, nontender Extremities- no pretibial edema, no calf tenderness Neuro- alert, oriented x 3; mild right facial droop, otherwise cranial nerves II to XII grossly intact, Left-sided weakness, 3-4 out of 5 motor strength, right side 5/5, sensation 100% on the right, diminished on the left Skin- warm & dry Results & Data Vital Signs (Past 12 Hours) Vital Signs Temp Pulse Resp BP Pulse Ox 12/18/18 11:41 36.6 C 78 22 125/85 96 12/18/18 09:26 36.7 C 85 18 136/83 96 12/18/18 03:53 36.6 C 99 H 18 135/86 96 Laboratory Results Laboratory Results - last 24 hr 12/17/18 12/17/18 12/17/18 11:48 17:38 23:19 WBC RBC Hgb Hct MCV MCH MCHC RDW Std Deviation RDW Coeff of Tanesha Plt Count MPV ESR APTT 33.3 H PTT Ratio 1.2 Sodium Potassium Chloride Carbon Dioxide Anion Gap BUN Creatinine Est Cr Clr Drug Dosing Est GFR ( Amer) Est GFR (Non-Af Amer) BUN/Creatinine Ratio Glucose Estimat Average Glucose Pending Hemoglobin A1c Pending Calcium Troponin I < 0.015 Triglycerides Cholesterol LDL Cholesterol, Calc VLDL Cholesterol, Calc HDL Cholesterol Cholesterol/HDL Ratio 12/18/18 12/18/18 12/18/18 00:07 05:58 05:58 WBC 5.83 RBC 4.44 L Hgb 13.6 L Hct 39.5 L MCV 89.0 MCH 30.6 MCHC 34.4 RDW Std Deviation 49.1 H RDW Coeff of Tanesha 15.1 H Plt Count 206 MPV 9.6 ESR APTT PTT Ratio Sodium 136 Potassium 3.5 Chloride 103 Carbon Dioxide 25 Anion Gap 8.0 BUN 11 Creatinine 0.80 Est Cr Clr Drug Dosing 115.9 Est GFR ( Amer) 117.4 Est GFR (Non-Af Amer) 101.3 BUN/Creatinine Ratio 13.7 Glucose 133 H Estimat Average Glucose Hemoglobin A1c Calcium 9.2 Troponin I < 0.015 Triglycerides 410 H Cholesterol 255 H LDL Cholesterol, Calc VLDL Cholesterol, Calc HDL Cholesterol 44 Cholesterol/HDL Ratio 6 12/18/18 12/18/18 12/18/18 05:58 05:58 12:34 WBC RBC Hgb Hct MCV MCH MCHC RDW Std Deviation RDW Coeff of Tanesha Plt Count MPV ESR 14 APTT 83.3 H* 43.9 H PTT Ratio 3.1 1.6 Sodium Potassium Chloride Carbon Dioxide Anion Gap BUN Creatinine Est Cr Clr Drug Dosing Est GFR ( Amer) Est GFR (Non-Af Amer) BUN/Creatinine Ratio Glucose Estimat Average Glucose Hemoglobin A1c Calcium Troponin I Triglycerides Cholesterol LDL Cholesterol, Calc VLDL Cholesterol, Calc HDL Cholesterol Cholesterol/HDL Ratio
[2018-12-18] MEDS: Heparin Adult STANDARD Wt-Based Dextrose 5% 25,000 units/500 mL IV SCH (14:34)
[2018-12-18] MEDS: WARFARIN SOD 3 MG TAB PO SCH (16:46)
[2018-12-18] MEDS: MoRPHine SULFATE 4 MG/ML 1 ML CARP\\VIAL IV PRN ×2 (16:51→23:22)
[2018-12-18 19:49] LABS: Partial Thromboplastin Ratio 2.2
[2018-12-18 19:54] LABS: Partial Thromboplastin Time 59.9 Seconds (21.0-31.0)
[2018-12-18] MEDS: ATORVASTATIN 40 MG TAB PO SCH (20:32)
[2018-12-18] MEDS: HYDROCODONE/ACETAMOPHEN 5/325MG TAB PO PRN (20:41)
[2018-12-19] MEDS: Heparin Adult STANDARD Wt-Based Dextrose 5% 25,000 units/500 mL IV SCH ×2 (02:03→16:45)
[2018-12-19] MEDS: NITROGLYCERIN 2% OINTMENT 30GM TUBE EXT SCH ×3 (05:52→18:33)
[2018-12-19] MEDS: MoRPHine SULFATE 4 MG/ML 1 ML CARP\\VIAL IV PRN ×3 (05:56→19:41)
[2018-12-19 06:16] LABS: Estimated Average Glucose 120 mg/dl; Hemoglobin A1C 5.8 % (4.5-5.6)
[2018-12-19 07:37] LABS: Partial Thromboplastin Time 54.5 Seconds (21.0-31.0)
[2018-12-19] MEDS: DRONABINOL 2.5 MG CAP PO SCH (08:25)
[2018-12-19] MEDS: DARUNAVIR ETHANOLATE 600 MG TAB PO SCH ×2 (08:25→16:35)
[2018-12-19] MEDS: HYDROCODONE/ACETAMOPHEN 5/325MG TAB PO PRN ×2 (08:25→18:33)
[2018-12-19] MEDS: levETIRAcetam 500 MG TAB PO SCH ×2 (08:26→21:07)
[2018-12-19] MEDS: RALTEGRAVIR POTASSIUM 400 MG TAB PO SCH ×2 (08:26→21:06)
[2018-12-19] MEDS: FLUOXETINE HCL 20 MG CAP PO SCH (08:26)
[2018-12-19] MEDS: ASPIRIN 81 MG ECTAB PO SCH (08:26)
[2018-12-19] MEDS: GABAPENTIN 800 MG TAB PO SCH ×3 (08:27→21:07)
[2018-12-19] MEDS: RITONAVIR 100 MG TAB PO SCH ×2 (08:27→21:09)
[2018-12-19] MEDS: METOPROLOL TARTRATE 50 MG TAB PO SCH (08:27)
[2018-12-19] MEDS: NICOTINE 21 MG/24 HR TDSY TD SCH (08:27)
[2018-12-19] MEDS: AMLODIPINE BESYLATE 5 MG TAB PO SCH (08:27)
[2018-12-19] MEDS: PANTOprazole 40 MG TAB PO SCH (08:27)
[2018-12-19] MEDS: SACCHAROMYCES BOULARDII 250 MG CAP PO SCH ×2 (08:27→21:06)
[2018-12-19] MEDS: DOCUSATE SODIUM/SENNA 50/8.6MG TAB PO SCH (08:28)
[2018-12-19] MEDS: BUDESONIDE/FORMOTEROL FUMARATE 160/4.5 60 PUFFS/INHALER INH SCH ×2 (08:28→21:08)
[2018-12-19] MEDS: FOLIC ACID 1 MG TAB PO SCH (08:28)
[2018-12-19] MEDS: CYCLOBENZAPRINE HCL 5 MG TAB PO PRN ×2 (10:03→22:03)
--- NOTE | 2018-12-19 11:01 | Infectious Disease Consult ---
Date of Consultation December 19, 2018 Assessment & Plan (1) HIV disease: continue current HAART and current doses. will check cd4 and HIV viral load while inpatient and he has not had labs done in some months. Re-enforced importance of regular office followup, he expressed understanding and states he will make a followup visit upon d/c. no additional ID recs at this time. History of Present Illness Attending Physician: Yobani Zarate MD pt admitted with chest pain, CTA done in ER, RLL PE. doppler negative, no evidence for pna. partner at bedside on my exam. States he has been doing well overall at home, until this admission. Has not been seen in ID office since 06/2018, has missed visits. Last labs done in Jun - HIV 82 copies, CD4 739. MRI and CT head negative. has been on boosted prezista and isentress for some time, states he is adherent to his meds, is tolerating well and has not missed any doses. He currnently states he is feeling better. cp has resolved. no sob, cough, n/v/d, abd pain, no gu symptoms. appetite stable. wbc 5, esr 14, creat nml. no micro done this admission, imaging reviewed. ID consulted to review HAART. Allergies Allergy/AdvReac Type Severity Reaction Status Date / Time Penicillins Allergy Severe ANAPHYLAXIS Verified 12/17/18 11:53 mivacurium Allergy Intermediate RASH AND Verified 12/17/18 11:53 SKIN PEELING niacin Allergy Intermediate RASH Verified 12/17/18 11:53 Sulfa (Sulfonamide Allergy Intermediate "ITCHY Verified 12/17/18 11:53 Antibiotics) RASH" tramadol Allergy Mild RASH Verified 12/17/18 11:53 meloxicam AdvReac Intermediate GI SYMPTOMS Verified 12/17/18 11:53 shellfish derived AdvReac Intermediate gi symptoms Verified 12/17/18 11:53 topiramate AdvReac Intermediate NAUSEA Verified 12/17/18 11:53 Home Medications Home Medications Medication Instructions Recorded Confirmed Type Prezista 600 mg PO BIDM 06/08/18 12/17/18 History Symbicort 2 puff INHALATION Q12H 06/08/18 12/17/18 History aspirin 81 mg PO QAM 06/08/18 12/17/18 History dronabinol [Marinol] 10 mg PO QAM 06/08/18 12/17/18 History fluoxetine [Prozac] 40 mg PO QAM 06/08/18 12/17/18 History fluticasone propionate [Flonase 2 spray INTRANASAL QAM 06/08/18 12/17/18 History Allergy Relief] folic acid 1 mg PO QAM 06/08/18 12/17/18 History furosemide [Lasix] 20 mg PO QAM PRN 06/08/18 12/17/18 History oxycodone 5 mg PO Q6H PRN 06/08/18 12/17/18 History gabapentin 800 mg PO TID 08/25/18 12/17/18 History Isentress 400 mg PO BID 10/04/18 12/17/18 History ipratropium-albuterol 3 ml INHALATION Q4H PRN 10/04/18 12/17/18 History omeprazole 20 mg PO QAM 10/04/18 12/17/18 History apixaban [Eliquis] 5 mg PO BID 10/24/18 12/17/18 History ferrous sulfate 325 mg PO Q OTHER DAY 10/24/18 12/17/18 History levetiracetam [Keppra] 1,000 mg PO BID 10/24/18 12/17/18 History albuterol sulfate [Ventolin HFA] 2 puff INHALATION BID PRN 11/14/18 12/17/18 History amlodipine 5 mg PO QAM 11/14/18 12/17/18 History atorvastatin 80 mg PO HS 11/14/18 12/17/18 History metoprolol tartrate 50 mg PO DAILY 11/14/18 12/17/18 History ondansetron 4 mg PO Q8H PRN 11/14/18 12/17/18 History ritonavir 100 mg PO BID 11/14/18 12/17/18 History trazodone 50 - 100 mg PO HS PRN 11/14/18 12/17/18 History Saccharomyces boulardii [Florastor] 250 mg PO BID #20 cap 11/15/18 12/17/18 Rx doxepin 10 mg PO HS PRN 12/17/18 12/17/18 History Patient History Medical History Tobacco abuse (Chronic) Rib fracture (Resolved) DVT (deep venous thrombosis) (Chronic) Chronic pain syndrome (Chronic) Tobacco abuse (Chronic) Carotid artery stenosis (Chronic) Complete R ICA occlusion, 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% HIV (human immunodeficiency virus infection) (Chronic) Depression (Chronic) Anxiety (Chronic) Polyp of colon (Chronic 12/21/12) Hypertension (Chronic) Dyslipidemia (Chronic) COPD (chronic obstructive pulmonary disease) (Chronic) Migraine (Chronic) History of CVA (cerebrovascular accident) (Chronic) "in setting of right carotid artery thrombosis" Carotid stenosis (Chronic) "03/06/15-SAÚL occlusion, LICA with 50-59% stenosis" AVM (arteriovenous malformation) brain (Chronic) History of alcohol abuse (Chronic) Anal dysplasia (Chronic) Neuropathic pain of both feet (Chronic) Surgical History History of colonoscopy (Chronic) History of anal lesion (Chronic) Family History Father Lung cancer Mother Hypertension Social History Preferred Language: Malay Communication Ability: Effective 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 Beliefs That Will Affect Care: None marital status: Current Living Situation: Significant Other Other Information That Helps Us Care for You: No Feels Safe at Home: Yes Safety Concerns: Feels Safe At This Time Smoking Status: Current every day smoker Tobacco Type: cigarettes Cigarettes Per Day: 10 Do You Dip or Chew Tobacco: No Second Hand Exposure: No Tobacco Cessation Education Requested by Patient: No Hx Alcohol Use: No Hx Substance Use: No Review of Systems Review of Systems: All systems reviewed & are unremarkable except as noted in HPI & below Physical Exam Constitutional: WD/WN, vitals as above Eyes: PERRL, conjunctivae normal, anicteric sclerae ENMT: external ear and nose normal, oropharynx normal Neck: normal visual inspection Respiratory: normal respiratory effort, lungs clear to auscultation Cardiovascular: RRR, no murmur, no edema Gastrointestinal (Abdomen): normal bowel sounds, soft, nontender, no hepatosplenomegaly Musculoskeletal: no cyanosis or clubbing, extremities motor strength 5/5 Skin: no rashes, warm and dry Psychiatric: A+Ox3, euthymic affect Results & Data Vital Signs (Past 12 Hours) Vital Signs Temp Pulse Resp BP Pulse Ox 12/19/18 10:42 36.5 C 76 19 96/54 L 94 12/19/18 07:27 36.6 C 70 19 113/73 93 12/19/18 03:21 36.4 C L 76 16 113/75 95 12/18/18 23:09 36.4 C L 74 16 109/69 96
[2018-12-19] MEDS: LIDOCAINE 5% 1 PATCH TD SCH (11:09)
[2018-12-19] MEDS: WARFARIN SOD 3 MG TAB PO SCH (16:34)
--- NOTE | 2018-12-19 18:50 | Hospitalist Progress Note ---
Date of Service December 19, 2018 Assessment & Plan (1) Pulmonary embolism: 53-year-old male with history of HIV, CVA with left-sided weakness, hypertension, COPD, other problems noted below presenting with chest pain. -Admit to telemetry -Patient presenting from home with reports of chest pain -In the ED, CTA chest showing subsegmental right lower lobe pulmonary embolism -Diagnosed with DVT 09/2018 and was started on Eliquis -Patient reports compliance with all medications Patient remains hemodynamically stable, O2 saturation more than 90% on room air Coumadin started, with heparin drip, tolerating so far, no signs of bleeding Monitor INR, goal between 2 and 3 We will discuss further with commercial parts professional Dr. Aguirre (2) Chest pain: -Patient reporting left-sided chest pain with radiation into the left arm with left hand numbness Likely secondary to pleurisy, possible musculoskeletal pain component Nonsteroidal anti-inflammatory drugs not recommended since patient is on heparin, Continue PRN morphine, oxycodone, Flexeril will add Lidoderm patch ACS ruled out, troponins negative x3, EKG no signs of ischemia Echocardiogram: No left ventricular wall motion abnormalities Chest pain did not resolve with nitroglycerin Pericarditis unlikely, ESR normal, echocardiogram no signs of pericarditis Continue to monitor closely (3) History of CVA (cerebrovascular accident): (4) Numbness of left hand: -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 -Was previously on aspirin and Plavix, however when DVT was diagnosed 09/2018 and patient was started on Eliquis, Plavix was stopped, aspirin was continued Brain MRI: No signs of acute infarct Brain MRA: No signs of acute occlusion -Continue aspirin and statin No changes with quite deficits Orthotics consulted for fitting of orthotic shoe on the left foot Will order PT OT evaluation (5) Hypertension: -BP elevated upon admission Blood pressure improved since admission -Continue home doses of amlodipine and metoprolol (6) HIV (human immunodeficiency virus infection): -Stable -Continue Prezista, ritonavir, and Isentress ID consulted CD4, HIV viral load ordered No changes with antiretroviral therapy (7) COPD (chronic obstructive pulmonary disease): -No signs of acute exacerbation, continue home inhalers (8) Chronic pain syndrome: -Continue home dose of oxycodone and gabapentin PRN morphine, Flexeril, Lidoderm patch ordered (9) Tobacco abuse: -Patient counseled regarding tobacco cessation -Nicotine patch ordered (10) DVT prophylaxis: -On Coumadin with IV heparin as above Disposition PT OT evaluations ordered Patient lives with partner at home Case discussed with patient and his partner at the bedside in detail and at length He is understanding, comfortable agreeable with plan of care Subjective Follow-up for chest pain, pulmonary embolism Seen resting in bed, comfortable, patient's partner at the bedside States left-sided chest pain is slightly improved today, still sharp, still located one finger on the left anterior chest wall, worse with movement and deep inspiration Denies shortness of breath, dizziness, headache, abdominal pain, fevers chills, Denies bleeding No other symptoms Review of Systems Review of Systems: All systems reviewed & are unremarkable except as noted in HPI & below Physical Exam Physical Exam: General- oriented x 3, not in distress, speaks in sentences with no effort or accessory muscle use Eyes- anicteric Neck- no JVD Lungs- clear BS, no crackles, no wheezing bilaterally Heart- normal rate, regular rhythm; no murmurs Abdomen- normal bowel sounds, nondistended, soft, nontender Extremities- no pretibial edema, no calf tenderness Neuro- alert, oriented x 3; left-sided weakness Skin- warm & dry Results & Data Vital Signs (Past 12 Hours) Vital Signs Temp Pulse Resp BP Pulse Ox 12/19/18 15:34 36.8 C 68 19 111/68 95 12/19/18 10:42 36.5 C 76 19 96/54 L 94 12/19/18 09:00 81 12/19/18 07:27 36.6 C 70 19 113/73 93 Laboratory Results Laboratory Results - last 24 hr 12/17/18 12/18/18 12/19/18 11:48 19:11 06:50 APTT 59.9 H* 54.5 H* PTT Ratio 2.2 2.0 Estimat Average Glucose 120 Hemoglobin A1c 5.8 H Absolute Lymphocytes % CD4 Cells Absolute CD4 Count T-Lymph CD4/CD8 Ratio % CD8 Cells Absolute CD8 Count HIV-1 RNA PCR copies/ml HIV-1 RNA (PCR) log 12/19/18 11:25 APTT PTT Ratio Estimat Average Glucose Hemoglobin A1c Absolute Lymphocytes Pending % CD4 Cells Pending Absolute CD4 Count Pending T-Lymph CD4/CD8 Ratio Pending % CD8 Cells Pending Absolute CD8 Count Pending HIV-1 RNA PCR copies/ml Pending HIV-1 RNA (PCR) log Pending
[2018-12-19 19:19] LABS: Basophils # (auto) 0.04 K/uL (0-0.2); Basophils % (auto) 0.5 %; Eosinophils # (auto) 0.12 K/uL (0-0.5); Eosinophils % (auto) 1.6 %; Hematocrit (blood only) 35.4 % (42-52); Hemoglobin 11.8 g/dL (14.0-18.0); Immature Granulocytes # (auto) 0.06 K/uL (0.00-0.02); Immature Granulocytes % (auto) 0.8 %; Lymphocytes % (auto) 38.4 %; Mean Corpuscular Hgb Conc 33.3 g/dL (32-36); Mean Corpuscular Volume 89.6 fL (80-100); Mean Platelet Volume 9.7 fL (7.4-10.4); Monocytes # (auto) 0.55 K/uL (0.11-0.59); Monocytes % (auto) 7.5 %; Neutrophils # (auto) 3.73 K/uL (1.4-6.5); Neutrophils % (auto) 51.2 %; Platelet Count 203 K/uL (130-400); RDW Coefficient of Variation 15.1 % (11.5-14.5); RDW Standard Deviation 48.9 fL (36.4-46.3); Red Blood Count 3.95 M/uL (4.7-6.1)
[2018-12-19] MEDS: ENOXAPARIN 100 MG/1ML SYR SQ SCH (21:04)
[2018-12-19] MEDS: ATORVASTATIN 40 MG TAB PO SCH (21:05)
[2018-12-20] MEDS: NITROGLYCERIN 2% OINTMENT 30GM TUBE EXT SCH ×5 (00:14→23:13)
[2018-12-20] MEDS: MoRPHine SULFATE 4 MG/ML 1 ML CARP\\VIAL IV PRN ×3 (02:41→20:11)
[2018-12-20 07:24] LABS: Basophils # (auto) 0.06 K/uL (0-0.2); Basophils % (auto) 0.8 %; Eosinophils # (auto) 0.13 K/uL (0-0.5); Eosinophils % (auto) 1.7 %; Hemoglobin 12.4 g/dL (14.0-18.0); Immature Granulocytes # (auto) 0.07 K/uL (0.00-0.02); Immature Granulocytes % (auto) 0.9 %; Lymphocytes # (auto) 2.91 K/uL (1.2-3.4); Lymphocytes % (auto) 38.6 %; Mean Corpuscular Hgb Conc 32.6 g/dL (32-36); Mean Corpuscular Volume 92.2 fL (80-100); Monocytes # (auto) 0.62 K/uL (0.11-0.59); Monocytes % (auto) 8.2 %; Neutrophils # (auto) 3.74 K/uL (1.4-6.5); Neutrophils % (auto) 49.8 %; Platelet Count 207 K/uL (130-400); RDW Coefficient of Variation 15.2 % (11.5-14.5); RDW Standard Deviation 51.1 fL (36.4-46.3); Red Blood Count 4.12 M/uL (4.7-6.1); White Blood Count 7.53 K/uL (4.8-10.8)
[2018-12-20 07:38] LABS: Partial Thromboplastin Time 25.9 Seconds (21.0-31.0)
[2018-12-20 07:56] LABS: BUN Creatinine Ratio 16.1 (10-20); Calcium 9.2 mg/dl (8.5-10.1); Creatinine Clr Calc Pharmacy 115.9 ml/min; Est GFR (African American) 117.4; Est GFR (Non-African American) 101.3; Potassium 4.6 mmol/L (3.5-5.1)
[2018-12-20] MEDS: BUDESONIDE/FORMOTEROL FUMARATE 160/4.5 60 PUFFS/INHALER INH SCH ×2 (08:26→21:00)
[2018-12-20] MEDS: NICOTINE 21 MG/24 HR TDSY TD SCH (08:27)
[2018-12-20] MEDS: PANTOprazole 40 MG TAB PO SCH (08:27)
[2018-12-20] MEDS: AMLODIPINE BESYLATE 5 MG TAB PO SCH (08:27)
[2018-12-20] MEDS: RALTEGRAVIR POTASSIUM 400 MG TAB PO SCH ×2 (08:27→21:01)
[2018-12-20] MEDS: ASPIRIN 81 MG ECTAB PO SCH (08:27)
[2018-12-20] MEDS: ENOXAPARIN 100 MG/1ML SYR SQ SCH ×2 (08:27→20:12)
[2018-12-20] MEDS: LIDOCAINE 5% 1 PATCH TD SCH (08:28)
[2018-12-20] MEDS: DARUNAVIR ETHANOLATE 600 MG TAB PO SCH ×2 (08:28→17:40)
[2018-12-20] MEDS: levETIRAcetam 500 MG TAB PO SCH ×2 (08:30→21:01)
[2018-12-20] MEDS: FLUOXETINE HCL 20 MG CAP PO SCH (08:30)
[2018-12-20] MEDS: RITONAVIR 100 MG TAB PO SCH ×2 (08:30→21:00)
[2018-12-20] MEDS: DOCUSATE SODIUM/SENNA 50/8.6MG TAB PO SCH (08:30)
[2018-12-20] MEDS: SACCHAROMYCES BOULARDII 250 MG CAP PO SCH ×2 (08:30→21:00)
[2018-12-20] MEDS: GABAPENTIN 800 MG TAB PO SCH ×3 (08:30→21:01)
[2018-12-20] MEDS: METOPROLOL TARTRATE 50 MG TAB PO SCH (08:31)
[2018-12-20] MEDS: FOLIC ACID 1 MG TAB PO SCH (08:31)
[2018-12-20] MEDS: FERROUS SULFATE 325 MG TAB PO SCH (08:31)
[2018-12-20] MEDS: HYDROCODONE/ACETAMOPHEN 5/325MG TAB PO PRN ×2 (08:37→18:30)
[2018-12-20] MEDS: DRONABINOL 2.5 MG CAP PO SCH (10:31)
[2018-12-20 10:44] LABS: Prothrombin Time 10.3 Seconds (9.0-12.0)
--- NOTE | 2018-12-20 13:15 | Hospitalist Progress Note ---
Date of Service December 20, 2018 Assessment & Plan (1) Pulmonary embolism: 53-year-old male with history of HIV, CVA with left-sided weakness, hypertension, COPD, other problems noted below presenting with chest pain. -Admit to telemetry -Patient presenting from home with reports of chest pain -In the ED, CTA chest showing subsegmental right lower lobe pulmonary embolism -Diagnosed with DVT 09/2018 and was started on Eliquis -Patient reports compliance with all medications Remained hemodynamically stable, since admission, O2 saturation remained more than 90% on room air Coumadin started, with heparin drip, Transitioned to Lovenox INR 1.0, increase Coumadin to 5 mg p.o. daily Monitor INR, goal between 2 andWill need to be bridged with Lovenox until INR is therapeutic for 2 days (2) Chest pain: -Patient reporting left-sided chest pain with radiation into the left arm with left hand numbness Likely secondary to pleurisy, possible musculoskeletal pain component Nonsteroidal anti-inflammatory drugs not recommended since patient is on hepari n, Continue PRN morphine, oxycodone, Flexeril, Lidoderm patch Pain gradually improving ACS ruled out, troponins negative x3, EKG no signs of ischemia Echocardiogram: No left ventricular wall motion abnormalities Chest pain did not resolve with nitroglycerin Pericarditis unlikely, ESR normal, echocardiogram no signs of pericarditis Continue to monitor closely (3) History of CVA (cerebrovascular accident): (4) Numbness of left hand: -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 -Was previously on aspirin and Plavix, however when DVT was diagnosed 09/2018 and patient was started on Eliquis, Plavix was stopped, aspirin was continued Brain MRI: No signs of acute infarct Brain MRA: No signs of acute occlusion -Continue aspirin and statin No changes with Chronic left-sided weakness Orthotics consulted for fitting of orthotic shoe on the left foot PT OT evaluation Has been ordered (5) Hypertension: -BP elevated upon admission Blood pressure improved since admission -Continue home doses of amlodipine and metoprolol (6) HIV (human immunodeficiency virus infection): -Stable -Continue Prezista, ritonavir, and Isentress ID consulted CD4, HIV viral load ordered No changes with antiretroviral therapy (7) COPD (chronic obstructive pulmonary disease): -No signs of acute exacerbation, continue home inhalers (8) Chronic pain syndrome: -Continue home dose of oxycodone and gabapentin PRN morphine, Flexeril, Lidoderm patch ordered (9) Tobacco abuse: -Patient counseled regarding tobacco cessation -Nicotine patch ordered (10) DVT prophylaxis: -On Coumadin with Lovenox bridge Disposition PT OT evaluations ordered Patient lives with his partner at home Case discussed with patient at the bedside in detail and at length He is understanding, comfortable agreeable with plan of care Subjective Follow-up for chest pain, left-sided, acute pulmonary embolism, right lower lobe seen resting In bed, sleeping, comfortable, not in distress, easily awakeStates he feels improved gradually, left sided chest pain improving gradually Denies use of breath, cough, fevers or chills, hemoptysis Denies bleeding No other symptoms Review of Systems Review of Systems: All systems reviewed & are unremarkable except as noted in HPI & below Physical Exam Physical Exam: General- oriented x 3, not in distress, speaks in sentences with no effort or accessory muscle use Eyes- anicteric Neck- no JVD Lungs- Clear breath sounds, no crackles or wheezing bilaterally Heart- normal rate, regular rhythm; no murmurs Abdomen- normal bowel sounds, nondistended, soft, nontender Extremities- no pretibial edema, no calf tenderness Neuro- alert, oriented x 3; Chronic left-sided weakness, no other gross focal deficit Skin- warm & dry Results & Data Vital Signs (Past 12 Hours) Vital Signs Temp Pulse Resp BP Pulse Ox 12/20/18 11:22 36.6 C 67 18 120/74 96 12/20/18 06:35 36.6 C 76 18 130/70 96 12/20/18 02:30 36.4 C L 77 20 145/82 H 98 Laboratory Results Laboratory Results - last 24 hr 12/19/18 12/19/18 12/20/18 19:09 19:09 07:01 WBC 7.30 7.53 RBC 3.95 L 4.12 L Hgb 11.8 L 12.4 L Hct 35.4 L 38.0 L MCV 89.6 92.2 MCH 29.9 30.1 MCHC 33.3 32.6 RDW Std Deviation 48.9 H 51.1 H RDW Coeff of Tanesha 15.1 H 15.2 H Plt Count 203 207 MPV 9.7 10.0 Immature Gran % (Auto) 0.8 0.9 Neut % (Auto) 51.2 49.8 Lymph % (Auto) 38.4 38.6 Dawes % (Auto) 7.5 8.2 Eos % (Auto) 1.6 1.7 Baso % (Auto) 0.5 0.8 Immature Gran # (Auto) 0.06 H 0.07 H Neut # (Auto) 3.73 3.74 Lymph # (Auto) 2.80 2.91 Dawes # (Auto) 0.55 0.62 H Eos # (Auto) 0.12 0.13 Baso # (Auto) 0.04 0.06 PT 10.0 INR 1.0 APTT PTT Ratio Sodium Potassium Chloride Carbon Dioxide Anion Gap BUN Creatinine Est Cr Clr Drug Dosing Est GFR ( Amer) Est GFR (Non-Af Amer) BUN/Creatinine Ratio Glucose POC Glucose Calcium 12/20/18 12/20/18 12/20/18 07:01 07:01 07:01 WBC RBC Hgb Hct MCV MCH MCHC RDW Std Deviation RDW Coeff of Tanesha Plt Count MPV Immature Gran % (Auto) Neut % (Auto) Lymph % (Auto) Dawes % (Auto) Eos % (Auto) Baso % (Auto) Immature Gran # (Auto) Neut # (Auto) Lymph # (Auto) Dawes # (Auto) Eos # (Auto) Baso # (Auto) PT 10.3 INR 1.0 APTT 25.9 PTT Ratio 1.0 Sodium 140 Potassium 4.6 Chloride 105 Carbon Dioxide 30 Anion Gap 5.0 BUN 13 Creatinine 0.80 Est Cr Clr Drug Dosing 115.9 Est GFR ( Amer) 117.4 Est GFR (Non-Af Amer) 101.3 BUN/Creatinine Ratio 16.1 Glucose 123 H POC Glucose Calcium 9.2 12/20/18 07:12 WBC RBC Hgb Hct MCV MCH MCHC RDW Std Deviation RDW Coeff of Tanesha Plt Count MPV Immature Gran % (Auto) Neut % (Auto) Lymph % (Auto) Dawes % (Auto) Eos % (Auto) Baso % (Auto) Immature Gran # (Auto) Neut # (Auto) Lymph # (Auto) Dawes # (Auto) Eos # (Auto) Baso # (Auto) PT INR APTT PTT Ratio Sodium Potassium Chloride Carbon Dioxide Anion Gap BUN Creatinine Est Cr Clr Drug Dosing Est GFR ( Amer) Est GFR (Non-Af Amer) BUN/Creatinine Ratio Glucose POC Glucose 125 H Calcium
--- NOTE | 2018-12-20 14:21 | Infectious Disease Progress Nt ---
Date of Service December 20, 2018 Assessment & Plan (1) HIV disease: continue current HAART and current doses. await cd4 and HIV viral load while inpatient and he has not had labs done in some months. Re-enforced importance of regular office followup, he expressed understanding and states he will make a followup visit upon d/c. no additional ID recs at this time. Subjective remains on HAART, doing well. CD4 and Viral load pending. afebrile. Results & Data Vital Signs (Past 12 Hours) Vital Signs Temp Pulse Pulse Resp BP Pulse Ox 12/20/18 11:22 36.6 C 67 18 120/74 96 12/20/18 08:00 66 12/20/18 06:35 36.6 C 76 18 130/70 96 12/20/18 02:30 36.4 C L 77 20 145/82 H 98
[2018-12-20] MEDS: WARFARIN SOD 5 MG TAB PO SCH (15:34)
[2018-12-20] MEDS: CYCLOBENZAPRINE HCL 5 MG TAB PO PRN (16:20)
[2018-12-20] MEDS: ATORVASTATIN 40 MG TAB PO SCH (21:01)
[2018-12-21] MEDS: MoRPHine SULFATE 4 MG/ML 1 ML CARP\\VIAL IV PRN ×4 (03:07→23:49)
[2018-12-21] MEDS: HYDROCODONE/ACETAMOPHEN 5/325MG TAB PO PRN (05:03)
[2018-12-21] MEDS: NITROGLYCERIN 2% OINTMENT 30GM TUBE EXT SCH ×4 (06:15→23:43)
[2018-12-21 06:59] LABS: Basophils # (auto) 0.07 K/uL (0-0.2); Basophils % (auto) 0.9 %; Eosinophils # (auto) 0.11 K/uL (0-0.5); Eosinophils % (auto) 1.3 %; Hemoglobin 12.5 g/dL (14.0-18.0); Immature Granulocytes % (auto) 1.2 %; Mean Corpuscular Hgb Conc 33.8 g/dL (32-36); Mean Corpuscular Volume 91.6 fL (80-100); Mean Platelet Volume 9.8 fL (7.4-10.4); Monocytes # (auto) 0.68 K/uL (0.11-0.59); Monocytes % (auto) 8.3 %; Neutrophils # (auto) 4.04 K/uL (1.4-6.5); Neutrophils % (auto) 49.3 %; Platelet Count 213 K/uL (130-400); RDW Coefficient of Variation 15.2 % (11.5-14.5); RDW Standard Deviation 51.1 fL (36.4-46.3); Red Blood Count 4.04 M/uL (4.7-6.1)
[2018-12-21 07:10] LABS: INR 1.1 (0.9-1.1); Prothrombin Time 11.5 Seconds (9.0-12.0)
[2018-12-21 07:34] LABS: BUN Creatinine Ratio 18.1 (10-20); Calcium 9.1 mg/dl (8.5-10.1); Creatinine Clr Calc Pharmacy 118.8 ml/min; Est GFR (African American) 118.6; Est GFR (Non-African American) 102.3
[2018-12-21] MEDS: RITONAVIR 100 MG TAB PO SCH ×2 (08:15→21:02)
[2018-12-21] MEDS: ENOXAPARIN 100 MG/1ML SYR SQ SCH ×2 (08:15→20:59)
[2018-12-21] MEDS: AMLODIPINE BESYLATE 5 MG TAB PO SCH (08:16)
[2018-12-21] MEDS: PANTOprazole 40 MG TAB PO SCH (08:16)
[2018-12-21] MEDS: SACCHAROMYCES BOULARDII 250 MG CAP PO SCH ×2 (08:16→21:01)
[2018-12-21] MEDS: RALTEGRAVIR POTASSIUM 400 MG TAB PO SCH ×2 (08:16→21:00)
[2018-12-21] MEDS: levETIRAcetam 500 MG TAB PO SCH ×2 (08:16→21:00)
[2018-12-21] MEDS: ASPIRIN 81 MG ECTAB PO SCH (08:17)
[2018-12-21] MEDS: METOPROLOL TARTRATE 50 MG TAB PO SCH (08:17)
[2018-12-21] MEDS: DARUNAVIR ETHANOLATE 600 MG TAB PO SCH ×2 (08:17→16:26)
[2018-12-21] MEDS: FLUOXETINE HCL 20 MG CAP PO SCH (08:17)
[2018-12-21] MEDS: FOLIC ACID 1 MG TAB PO SCH (08:17)
[2018-12-21] MEDS: NICOTINE 21 MG/24 HR TDSY TD SCH (08:18)
[2018-12-21] MEDS: LIDOCAINE 5% 1 PATCH TD SCH (08:18)
[2018-12-21] MEDS: GABAPENTIN 800 MG TAB PO SCH ×3 (08:18→21:02)
[2018-12-21] MEDS: DOCUSATE SODIUM/SENNA 50/8.6MG TAB PO SCH (08:18)
[2018-12-21] MEDS: DRONABINOL 2.5 MG CAP PO SCH (08:18)
[2018-12-21] MEDS: BUDESONIDE/FORMOTEROL FUMARATE 160/4.5 60 PUFFS/INHALER INH SCH ×2 (08:19→21:03)
[2018-12-21] MEDS: OXYCODONE HCL IR 5 MG TAB (IMMEDIATE RELEASE) PO PRN ×2 (13:46→21:12)
[2018-12-21] MEDS: WARFARIN SOD 5 MG TAB PO SCH (16:26)
--- NOTE | 2018-12-21 18:00 | Hospitalist Progress Note ---
Date of Service December 21, 2018 Assessment & Plan (1) Pulmonary embolism: 53-year-old male with history of HIV, CVA with left-sided weakness, hypertension, COPD, other problems noted below presenting with chest pain. -History of Diagnosed with DVT 09/2018 and was started on Eliquis -on this hospital presentation, CTA chest showing subsegmental right lower lobe pulmonary embolism -as per initial hospitalist, patient appeared to have failed Eliquis anticoagulation therapy, patient was started on 1 mg/kg BID Lovenox and coumadin -continue Lovenox 1mg/kg and coumadin 5 mg daily with goal of stopping Lovenox when INR is between 2 to 3 (2) Chest pain: -Patient reporting left-sided chest pain with radiation into the left arm with left hand numbness -Likely secondary to pleuritic chest pain from pulmonary embolism, possible musculoskeletal pain component, ACS ruled out, troponins negative x3, EKG no signs of ischemia, Echocardiogram: No left ventricular wall motion abnormalities, Chest pain did not resolve with nitroglycerin -Nonsteroidal anti-inflammatory drugs not recommended since patient is on heparin Continue PRN morphine, oxycodone prn, Flexeril, Lidoderm patch (3) History of CVA (cerebrovascular accident): (4) Numbness of left hand: -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 -Was previously on aspirin and Plavix, however when DVT was diagnosed 09/2018 and patient was started on Eliquis, Plavix was stopped, aspirin was continued Brain MRI: No signs of acute infarct Brain MRA: No signs of acute occlusion -Continue aspirin and statin No changes with Chronic left-sided weakness Orthotics consulted for fitting of orthotic shoe on the left foot PT/OT evaluation (5) Hypertension: -Continue home doses of amlodipine and metoprolol (6) HIV (human immunodeficiency virus infection): -Stable -Continue Prezista, ritonavir, and Isentress -Infectious Disease consulted does not advise any changes with antiretroviral therapy (7) COPD (chronic obstructive pulmonary disease): -No signs of acute exacerbation, continue home inhalers (8) Chronic pain syndrome: pain generally free from other areas of the body but has pleuritic chest pain from pulmonary embolism (9) Tobacco abuse: -Patient counseled regarding tobacco cessation -Nicotine patch ordered (10) DVT prophylaxis: -On Coumadin with Lovenox bridge Subjective Patient with pleuritic chest pain that intermittently requires IV morphine. Have encouraged patient to switch towards oral alternative. Patient has not been in distress today. breathing on room air. no abdomen pain. no vomiting. no lightheadedness. no dizziness Physical Exam Constitutional: WD/WN, vitals as above Eyes: PERRL, conjunctivae normal, anicteric sclerae EOM intact bilaterally ENMT: external ear and nose normal, oropharynx normal Neck: trachea midline, no thyromegaly Respiratory: normal respiratory effort, lungs clear to auscultation Cardiovascular: RRR, no murmur, no edema Gastrointestinal (Abdomen): normal bowel sounds, soft, nontender, no hepatosplenomegaly Musculoskeletal: no cyanosis or clubbing, extremities motor strength 5/5 Neurologic: PERRL, EOMI, accommodation nl, no face palsy, no dysarthria CN's II-XI intact bilaterally Psychiatric: A+Ox3, euthymic affect Results & Data Vital Signs (Past 12 Hours) Vital Signs Temp Pulse Resp BP Pulse Ox 12/21/18 15:36 37.1 C 77 19 128/75 96 12/21/18 11:30 37.2 C 62 18 121/68 98 12/21/18 07:59 36.8 C 74 18 133/78 96
[2018-12-21] MEDS: ATORVASTATIN 40 MG TAB PO SCH (21:01)
[2018-12-22] MEDS: AMLODIPINE BESYLATE 5 MG TAB PO SCH (05:24)
[2018-12-22 05:52] LABS: Basophils # (auto) 0.06 K/uL (0-0.2); Basophils % (auto) 0.7 %; Eosinophils % (auto) 1.2 %; Hematocrit (blood only) 38.8 % (42-52); Hemoglobin 12.9 g/dL (14.0-18.0); Immature Granulocytes # (auto) 0.09 K/uL (0.00-0.02); Immature Granulocytes % (auto) 1.1 %; Lymphocytes # (auto) 2.91 K/uL (1.2-3.4); Lymphocytes % (auto) 34.8 %; Mean Corpuscular Hgb Conc 33.2 g/dL (32-36); Mean Corpuscular Volume 89.2 fL (80-100); Mean Platelet Volume 9.9 fL (7.4-10.4); Monocytes % (auto) 8.4 %; Neutrophils # (auto) 4.51 K/uL (1.4-6.5); Neutrophils % (auto) 53.8 %; Platelet Count 198 K/uL (130-400); RDW Coefficient of Variation 15.1 % (11.5-14.5); RDW Standard Deviation 48.9 fL (36.4-46.3); Red Blood Count 4.35 M/uL (4.7-6.1); White Blood Count 8.37 K/uL (4.8-10.8)
[2018-12-22] MEDS: NITROGLYCERIN 2% OINTMENT 30GM TUBE EXT SCH (05:55)
[2018-12-22] MEDS: MoRPHine SULFATE 4 MG/ML 1 ML CARP\\VIAL IV PRN ×2 (05:57→19:35)
[2018-12-22 06:05] LABS: INR 1.3 (0.9-1.1); Prothrombin Time 13.3 Seconds (9.0-12.0)
[2018-12-22 06:24] LABS: BUN Creatinine Ratio 21.3 (10-20); Calcium 9.3 mg/dl (8.5-10.1); Creatinine Clr Calc Pharmacy 115.9 ml/min; Est GFR (African American) 117.4; Est GFR (Non-African American) 101.3; Potassium 3.9 mmol/L (3.5-5.1)
[2018-12-22] MEDS: OXYCODONE HCL IR 5 MG TAB (IMMEDIATE RELEASE) PO PRN ×2 (08:12→16:57)
[2018-12-22] MEDS: levETIRAcetam 500 MG TAB PO SCH ×2 (08:13→21:47)
[2018-12-22] MEDS: DARUNAVIR ETHANOLATE 600 MG TAB PO SCH ×2 (08:13→16:57)
[2018-12-22] MEDS: RALTEGRAVIR POTASSIUM 400 MG TAB PO SCH ×2 (08:14→21:47)
[2018-12-22] MEDS: DOCUSATE SODIUM/SENNA 50/8.6MG TAB PO SCH (08:14)
[2018-12-22] MEDS: BUDESONIDE/FORMOTEROL FUMARATE 160/4.5 60 PUFFS/INHALER INH SCH ×2 (08:14→21:47)
[2018-12-22] MEDS: FERROUS SULFATE 325 MG TAB PO SCH (08:14)
[2018-12-22] MEDS: PANTOprazole 40 MG TAB PO SCH (08:15)
[2018-12-22] MEDS: GABAPENTIN 800 MG TAB PO SCH ×3 (08:15→21:47)
[2018-12-22] MEDS: RITONAVIR 100 MG TAB PO SCH ×2 (08:15→21:47)
[2018-12-22] MEDS: ASPIRIN 81 MG ECTAB PO SCH (08:16)
[2018-12-22] MEDS: FLUOXETINE HCL 20 MG CAP PO SCH (08:16)
[2018-12-22] MEDS: ENOXAPARIN 100 MG/1ML SYR SQ SCH ×2 (08:16→21:45)
[2018-12-22] MEDS: METOPROLOL TARTRATE 50 MG TAB PO SCH (08:16)
[2018-12-22] MEDS: FOLIC ACID 1 MG TAB PO SCH (08:17)
[2018-12-22] MEDS: SACCHAROMYCES BOULARDII 250 MG CAP PO SCH ×2 (08:17→21:47)
[2018-12-22] MEDS: LIDOCAINE 5% 1 PATCH TD SCH (08:17)
[2018-12-22] MEDS: NICOTINE 21 MG/24 HR TDSY TD SCH (08:18)
[2018-12-22] MEDS: DRONABINOL 2.5 MG CAP PO SCH (09:27)
[2018-12-22 09:53] LABS: HIV-1 RNA Log Copies/mL 2.2 (<1.30); LSP CD4/CD8 Ratio 0.53 (0.86-5.00)
--- NOTE | 2018-12-22 10:47 | Hospitalist Progress Note ---
Date of Service December 22, 2018 Assessment & Plan (1) Pulmonary embolism: 53-year-old male with history of HIV, CVA with left-sided weakness, hypertension, COPD, other problems noted below presenting with chest pain. -History of Diagnosed with DVT 09/2018 and was started on Eliquis -on this hospital presentation, CTA chest showing subsegmental right lower lobe pulmonary embolism -as per initial hospitalist, patient appeared to have failed Eliquis anticoagulation therapy, patient was started on 1 mg/kg BID Lovenox and coumadin -continue Lovenox 1mg/kg and coumadin 5 mg daily with goal of stopping Lovenox when INR is between 2 to 3 -current INR is 1.3, continue anticoagulation (2) Chest pain: -Patient reporting left-sided chest pain with radiation into the left arm with left hand numbness -Likely secondary to pleuritic chest pain from pulmonary embolism, possible musculoskeletal pain component, ACS ruled out, troponins negative x3, EKG no signs of ischemia, Echocardiogram: No left ventricular wall motion abnormalities, Chest pain did not resolve with nitroglycerin -Nonsteroidal anti-inflammatory drugs not recommended since patient is on heparin Continue PRN morphine, Flexeril, Lidoderm patch increased the prn oxycodone from 5 mg q6 hours to q 4 hours (3) History of CVA (cerebrovascular accident): (4) Numbness of left hand: -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 -Was previously on aspirin and Plavix, however when DVT was diagnosed 09/2018 and patient was started on Eliquis, Plavix was stopped, aspirin was continued Brain MRI: No signs of acute infarct Brain MRA: No signs of acute occlusion -Continue aspirin and statin No changes with Chronic left-sided weakness Orthotics consulted for fitting of orthotic shoe on the left foot PT/OT evaluation (5) Hypertension: -Continue home doses of amlodipine and metoprolol (6) HIV (human immunodeficiency virus infection): -Stable -Continue Prezista, ritonavir, and Isentress -Infectious Disease consulted does not advise any changes with antiretroviral therapy (7) COPD (chronic obstructive pulmonary disease): -No signs of acute exacerbation, continue home inhalers (8) Chronic pain syndrome: pain generally free from other areas of the body but has pleuritic chest pain from pulmonary embolism (9) Tobacco abuse: -Patient counseled regarding tobacco cessation -Nicotine patch ordered (10) DVT prophylaxis: -On Coumadin with Lovenox bridge Subjective continues to have pleuritic chest pain. has needed IV morphine. breathing on ro om air. no back pain. no abdomen pain. no vomiting. Physical Exam Constitutional: WD/WN, vitals as above Eyes: PERRL, conjunctivae normal, anicteric sclerae EOM intact bilaterally ENMT: external ear and nose normal, oropharynx normal Neck: trachea midline, no thyromegaly Respiratory: normal respiratory effort, lungs clear to auscultation Cardiovascular: RRR, no murmur, no edema Gastrointestinal (Abdomen): normal bowel sounds, soft, nontender, no hepatosplenomegaly Musculoskeletal: Head/Neck/Chest: normocephalic and head atraumatic Neurologic: PERRL, EOMI, accommodation nl, no face palsy, no dysarthria (chronic left sided weakness) Psychiatric: A+Ox3, euthymic affect Results & Data Vital Signs (Past 12 Hours) Vital Signs Temp Pulse Resp BP Pulse Ox 12/22/18 07:14 36.7 C 67 18 152/89 H 96 12/22/18 03:30 36.7 C 76 16 148/100 H 98 12/22/18 00:19 36.6 C 66 16 136/83 95
[2018-12-22] MEDS: WARFARIN SOD 5 MG TAB PO SCH (16:54)
[2018-12-22] MEDS: ATORVASTATIN 40 MG TAB PO SCH (21:47)
[2018-12-23] MEDS: OXYCODONE HCL IR 5 MG TAB (IMMEDIATE RELEASE) PO PRN ×2 (00:09→09:04)
[2018-12-23] MEDS: MoRPHine SULFATE 4 MG/ML 1 ML CARP\\VIAL IV PRN (04:11)
[2018-12-23 07:07] LABS: INR 1.5 (0.9-1.1); Prothrombin Time 14.8 Seconds (9.0-12.0)
[2018-12-23] MEDS: AMLODIPINE BESYLATE 5 MG TAB PO SCH (08:50)
[2018-12-23] MEDS: CYCLOBENZAPRINE HCL 5 MG TAB PO PRN (08:50)
[2018-12-23] MEDS: METOPROLOL TARTRATE 50 MG TAB PO SCH (08:50)
[2018-12-23] MEDS: FOLIC ACID 1 MG TAB PO SCH (08:50)
[2018-12-23] MEDS: PANTOprazole 40 MG TAB PO SCH (08:50)
--- NOTE | 2018-12-23 08:50 | Infectious Disease Progress Nt ---
Date of Service December 23, 2018 Assessment & Plan (1) HIV disease: continue current HAART and current doses. cd4 count adequate, no risk for OI. HIV viral load has increased to 157, suspect missed doses of HAART. Re- enforced importance of regular office followup, he expressed understanding and states he will make a followup visit upon d/c. We will further discuss adherence at next outpatient visit. no additional ID recs at this time. Subjective pt remains on HAART, tolerating well. afebrile. cd4 1247, viral load 157 - was 82 in 06/2018 Results & Data Vital Signs (Past 12 Hours) Vital Signs Temp Pulse Resp BP Pulse Ox 12/23/18 07:32 36.7 C 85 18 163/80 H 98 12/22/18 22:58 36.5 C 74 18 123/70 96
[2018-12-23] MEDS: ASPIRIN 81 MG ECTAB PO SCH (08:51)
[2018-12-23] MEDS: GABAPENTIN 800 MG TAB PO SCH (08:51)
[2018-12-23] MEDS: DARUNAVIR ETHANOLATE 600 MG TAB PO SCH (08:51)
[2018-12-23] MEDS: RITONAVIR 100 MG TAB PO SCH (08:51)
[2018-12-23] MEDS: BUDESONIDE/FORMOTEROL FUMARATE 160/4.5 60 PUFFS/INHALER INH SCH (08:52)
[2018-12-23] MEDS: SACCHAROMYCES BOULARDII 250 MG CAP PO SCH (08:52)
[2018-12-23] MEDS: levETIRAcetam 500 MG TAB PO SCH (08:52)
[2018-12-23] MEDS: RALTEGRAVIR POTASSIUM 400 MG TAB PO SCH (08:52)
[2018-12-23] MEDS: LIDOCAINE 5% 1 PATCH TD SCH (08:53)
[2018-12-23] MEDS: ENOXAPARIN 100 MG/1ML SYR SQ SCH (08:53)
[2018-12-23] MEDS: NICOTINE 21 MG/24 HR TDSY TD SCH (08:53)
[2018-12-23] MEDS: DOCUSATE SODIUM/SENNA 50/8.6MG TAB PO SCH (09:04)
[2018-12-23] MEDS: FLUOXETINE HCL 20 MG CAP PO SCH (09:04)
[2018-12-23] MEDS: DRONABINOL 2.5 MG CAP PO SCH (09:05)
--- NOTE | 2018-12-23 09:10 | Hospitalist Progress Note ---
Date of Service December 23, 2018 Assessment & Plan (1) Pulmonary embolism: 53-year-old male with history of HIV, CVA with left-sided weakness, hypertension, COPD, other problems noted below presenting with chest pain. -History of Diagnosed with DVT 09/2018 and was started on Eliquis -on this hospital presentation, CTA chest showing subsegmental right lower lobe pulmonary embolism -as per initial hospitalist, patient appeared to have failed Eliquis anticoagulation therapy, patient was started on 1 mg/kg BID Lovenox (40 mg BID) and coumadin -continue Lovenox 1mg/kg and coumadin 5 mg daily with goal of stopping Lovenox when INR is between 2 to 3 -current INR is 1.5 continue anticoagulation with Lovenox and coumadin -On discharge patient should not take Eliquis at home because he was transitioned to Lovenox and coumadin blood thinners Coumadin 5 mg daily prescription and Lovenox twice a day (every 8 AM and 10 PM) all prescriptions sent to [facility] [address] [place] [id number] -Discharge day INR is 1.5 level and the goal INR is between 2 to 3, so patient will continue to take Lovenox injections with the coumadin until the night of 12/25/18 because patient is to follow up with primary care doctor to check the INR on 12/26/2018 (1:10 PM Provider Alexandr Elder DO Department [facility]). If the INR level is 2 or higher when checked by primary care doctor then Lovenox can be stopped. Other appointments 12/27/2018 9:00 AM Provider [facility] Department Pharmacy, [facility] 01/10/2019 1:00 PM Provider Michelle Martin MD Department Hepatology, [facility] 02/16/2019 1:50 PM Provider Alexandr Elder DO Department [facility] (2) Chest pain: -Patient reporting left-sided chest pain with radiation into the left arm with left hand numbness -Likely secondary to pleuritic chest pain from pulmonary embolism, possible musculoskeletal pain component, ACS ruled out, troponins negative x3, EKG no signs of ischemia, Echocardiogram: No left ventricular wall motion abnormalities, Chest pain did not resolve with nitroglycerin -In the hospital patient had PRN morphine, Flexeril, Lidoderm patch, and prn oxycodone -[facility] was checked and patient last had Oxycodone 5 mg of 7 day supply filled on 12/14/18. Because patient has diagnosis of pulmonary embolism with pleuritic chest pain, a prescription of oxycodone 5 mg every 4 hours as needed for moderate pain made for 4 day additional supply. Patient may take acetaminophen 325mg every 6 hours as needed for mild pain. 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 -Was previously on aspirin and Plavix, however when DVT was diagnosed 09/2018 and patient was started on Eliquis, Plavix was stopped, aspirin was continued Brain MRI: No signs of acute infarct Brain MRA: No signs of acute occlusion -Continue aspirin and statin No changes with Chronic left-sided weakness Orthotics consulted for fitting of orthotic shoe on the left foot PT/OT evaluation (5) Hypertension: -Continue home doses of amlodipine and metoprolol (6) HIV (human immunodeficiency virus infection): -Stable -Continue Prezista, ritonavir, and Isentress -Infectious Disease consulted does not advise any changes with antiretroviral therapy (7) COPD (chronic obstructive pulmonary disease): -No signs of acute exacerbation, continue home inhalers (8) Chronic pain syndrome: -pain generally free from other areas of the body but has pleuritic chest pain from pulmonary embolism -the pleuritic chest pain is improving and patient ready to discharge with instructions on using Lovenox and coumadin (9) Tobacco abuse: -Patient counseled regarding tobacco cessation -Nicotine patch ordered - Patient should stop smoking and take Nicotine prescription (10) DVT prophylaxis: -On Coumadin with Lovenox bridge Discharge Diagnosis acute pulmonary embolism, anticoagulated by anticoagulation therapy, History of cerebrovascular accident, essential hypertension, tobacco use, human immunodeficiency virus infection Subjective Pleuritic pain is more controlled as per patient and he is ready to go home. INR this AM is 1.5 while on the coumadin and BID Lovenox. Patient able to give Lovenox injections for home use. Discharge plans discussed. no shortness of breath. no dizziness. no lightheadedness. no vomiting. Physical Exam Constitutional: WD/WN, vitals as above Eyes: PERRL, conjunctivae normal, anicteric sclerae EOM intact bilaterally ENMT: external ear and nose normal, oropharynx normal Neck: trachea midline, no thyromegaly Respiratory: normal respiratory effort, lungs clear to auscultation Cardiovascular: RRR, no murmur, no edema Gastrointestinal (Abdomen): normal bowel sounds, soft, nontender, no hepatosplenomegaly Musculoskeletal: no cyanosis or clubbing, extremities motor strength 5/5 Head/Neck/Chest: normocephalic and head atraumatic Neurologic: PERRL, EOMI, accommodation nl, no face palsy, no dysarthria (chronic left sided weakness) CN's II-XI intact bilaterally Psychiatric: A+Ox3, euthymic affect Results & Data Vital Signs (Past 12 Hours) Vital Signs Temp Pulse Resp BP Pulse Ox 12/23/18 07:32 36.7 C 85 18 163/80 H 98 12/22/18 22:58 36.5 C 74 18 123/70 96
--- NOTE | 2018-12-23 09:17 | Discharge Summary ---
Date of Service December 23, 2018 Admission HPI Per Admitting Provider 53-year-old male who presents the ED with chest pain. Patient reports that whenever he woke up this morning, he had left-sided chest pain that was radiating into his left arm with associated left arm numbness. Patient has history of CVA with left-sided hemiparesis. He denies any worsening of his left-sided weakness. Patient rates the pain at 9/10. EMS was called. Patient reports his blood pressure was 190/80. He denies shortness of breath. No lightheadedness, dizziness, diaphoresis, syncopal event. Patient reports he otherwise has been feeling well recently. Reports compliance with all medications. No abdominal pain, nausea, vomiting, diarrhea. He denies any urinary symptoms. In the ED, initial troponin is negative and EKG does not show any acute ST changes. CTA chest shows right lower lobe subsegmental pulmonary embolism. Head CT negative for acute findings. Patient has remained hemodynamically stable and is saturating well on room air.Other labs are unremarkable. Patient was given sublingual nitroglycerin and IV morphine with minimal improvement in the pain. Admission Exam Per Admitting Provider Physical Exam: Vitals signs as noted above General Appearance:Moderately built and nourished, no apparent distress Head: normocephalic, Atraumatic Eyes: normal inspection, EOMI, PERRL Neck: supple, Trachea midline Respiratory/Chest: Decreased breath sounds, CTA, No accessory muscle use Cardiovascular: S1, S2, No murmur, +Tachycardia Abdomen/GI:Soft, Non tender, Bowel sounds present Extremities/Musculoskelatal:normal inspection, no edema Neurologic/Psych:AAOX3, Left sided weakness, UR> LE 3-4/5 Skin: normal color, warm Principal Diagnosis acute pulmonary embolism, anticoagulated by anticoagulation therapy, Pleuritic chest pain. History of cerebrovascular accident, essential hypertension, tobacco use, human immunodeficiency virus infection Discharge Exam Constitutional WD/WN, vitals as above Eyes PERRL, conjunctivae normal, anicteric sclerae EOM intact bilaterally ENMT external ear and nose normal, oropharynx normal Neck trachea midline, no thyromegaly Respiratory normal respiratory effort, lungs clear to auscultation Cardiovascular RRR, no murmur, no edema Gastrointestinal (Abdomen) normal bowel sounds, soft, nontender, no hepatosplenomegaly Musculoskeletal no cyanosis or clubbing, extremities motor strength 5/5 Head/Neck/Chest: normocephalic and head atraumatic Neurologic PERRL, EOMI, accommodation nl, no face palsy, no dysarthria (chronic left sided weakness) CN's II-XI intact bilaterally Psychiatric A+Ox3, euthymic affect Discharge Data Allergies Allergy/AdvReac Type Severity Reaction Status Date / Time Penicillins Allergy Severe ANAPHYLAXIS Verified 12/17/18 11:53 mivacurium Allergy Intermediate RASH AND Verified 12/17/18 11:53 SKIN PEELING niacin Allergy Intermediate RASH Verified 12/17/18 11:53 Sulfa (Sulfonamide Allergy Intermediate "ITCHY Verified 12/17/18 11:53 Antibiotics) RASH" tramadol Allergy Mild RASH Verified 12/17/18 11:53 meloxicam AdvReac Intermediate GI SYMPTOMS Verified 12/17/18 11:53 shellfish derived AdvReac Intermediate gi symptoms Verified 12/17/18 11:53 topiramate AdvReac Intermediate NAUSEA Verified 12/17/18 11:53 Consultations 12/17/18 14:00 ED Decision to Admit Stat 12/17/18 15:37 Consult Case Management - Discharge Planning Routine 12/19/18 10:41 Consult Infectious Diseases Routine Ordered Studies 12/17/18 13:10 CT angio chest dissec wo/w con Stat CT head/brain wo con Stat 12/17/18 15:37 MR angio head wo con Urgent MR brain wo/w con Routine 12/18/18 16:46 US venous doppler LE Routine Hospital Course (1) Pulmonary embolism: 53-year-old male with history of HIV, CVA with left-sided weakness, hypertension, COPD, other problems noted below presenting with chest pain. -History of Diagnosed with DVT 09/2018 and was started on Eliquis -on this hospital presentation, CTA chest showing subsegmental right lower lobe pulmonary embolism -as per initial hospitalist, patient appeared to have failed Eliquis anticoagulation therapy, patient was started on 1 mg/kg BID Lovenox (40 mg BID) and coumadin -continue Lovenox 1mg/kg and coumadin 5 mg daily with goal of stopping Lovenox when INR is between 2 to 3 -current INR is 1.5 continue anticoagulation with Lovenox and coumadin -On discharge patient should not take Eliquis at home because he was transitioned to Lovenox and coumadin blood thinners Coumadin 5 mg daily prescription and Lovenox twice a day (every 8 AM and 10 PM) all prescriptions sent to [address] [id number] -Discharge day INR is 1.5 level and the goal INR is between 2 to 3, so patient will continue to take Lovenox injections with the coumadin until the night of 12/25/18 because patient is to follow up with primary care doctor to check the INR on 12/26/2018 (1:10 PM Provider Alexandr Elder DO Department [facility]). If the INR level is 2 or higher when checked by primary care doctor then Lovenox can be stopped. Other appointments 12/27/2018 9:00 AM Provider [facility] Department Pharmacy, [facility] 01/10/2019 1:00 PM Provider Michelle Martin MD Department Hepatology, [facility] 02/16/2019 1:50 PM Provider Alexandr Elder DO Department [facility] (2) Chest pain: -Patient reporting left-sided chest pain with radiation into the left arm with left hand numbness -Likely secondary to pleuritic chest pain from pulmonary embolism, possible musculoskeletal pain component, ACS ruled out, troponins negative x3, EKG no signs of ischemia, Echocardiogram: No left ventricular wall motion abnormalities, Chest pain did not resolve with nitroglycerin -In the hospital patient had PRN morphine, Flexeril, Lidoderm patch, and prn oxycodone -[facility] was checked and patient last had Oxycodone 5 mg of 7 day supply filled on 12/14/18. Because patient has diagnosis of pulmonary embolism with pleuritic chest pain, a prescription of oxycodone 5 mg every 4 hours as needed for moderate pain made for 4 day additional supply. Patient may take acetaminophen 325mg every 6 hours as needed for mild pain. 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 -Was previously on aspirin and Plavix, however when DVT was diagnosed 09/2018 and patient was started on Eliquis, Plavix was stopped, aspirin was continued Brain MRI: No signs of acute infarct Brain MRA: No signs of acute occlusion -Continue aspirin and statin No changes with Chronic left-sided weakness Orthotics consulted for fitting of orthotic shoe on the left foot PT/OT evaluation (5) Hypertension: -Continue home doses of amlodipine and metoprolol (6) HIV (human immunodeficiency virus infection): -Stable -Continue Prezista, ritonavir, and Isentress -Infectious Disease consulted does not advise any changes with antiretroviral therapy (7) COPD (chronic obstructive pulmonary disease): -No signs of acute exacerbation, continue home inhalers (8) Chronic pain syndrome: -pain generally free from other areas of the body but has pleuritic chest pain from pulmonary embolism -the pleuritic chest pain is improving and patient ready to discharge with instructions on using Lovenox and coumadin (9) Tobacco abuse: -Patient counseled regarding tobacco cessation -Nicotine patch ordered - Patient should stop smoking and take Nicotine prescription (10) DVT prophylaxis: -On Coumadin with Lovenox bridge Discharge Diagnosis acute pulmonary embolism, anticoagulated by anticoagulation therapy, History of cerebrovascular accident, essential hypertension, tobacco use, human immunodeficiency virus infection Total Time Total Time Spent Total Time Spent (In Minutes): 40 minutes Total Time Includes: Examination of the Patient, Discharge Planning, Medication Reconciliation and Communication With Other Providers Discharge Plan Discharge Items Patient Disposition: Home - Self-Care Reason For Visit: chest pain Discharge Diagnosis: acute pulmonary embolism, anticoagulated by anticoagulation therapy, History of cerebrovascular accident, essential hypertension, tobacco use, human immunodeficiency virus infection Condition: Good Discharge Goals: Decrease discomfort Activity: Per 'Additional Instructions' section Non-emergency contact: Primary Care Provider Call non-emergency contact if: you have any medication questions Follow-up/Referrals: Alexandr Elder DO [Primary Care Provider] - Diet: Regular Addtl Provider Instructions: [facility] was checked and patient last had Oxycodone 5 mg of 7 day supply filled on 12/14/18. Because patient has diagnosis of pulmonary embolism with pleuritic chest pain, a prescription of oxycodone 5 mg every 4 hours as needed for moderate pain made for 4 day additional supply. Patient may take acetaminophen 325mg every 6 hours as needed for mild pain. 5 mg cyclobenzaprine BID as needed for muscle spasms Patient should stop smoking and use Nicotine prescription On discharge patient should not take Eliquis at home because he was transitioned to Lovenox and coumadin blood thinners Coumadin 5 mg daily prescription and Lovenox twice a day (every 8 AM and 10 PM) all prescriptions sent to [facility] [id number] Discharge day INR is 1.5 level and the goal INR is between 2 to 3, so patient will continue to take Lovenox injections with the coumadin until the night of 12/25/18 because patient is to follow up with primary care doctor to check the INR on 12/26/2018 (1:10 PM Provider Alexandr Elder DO Department [facility]). If the INR level is 2 or higher when checked by primary care doctor then Lovenox can be stopped. 12/27/2018 9:00 AM Provider [facility] Department Pharmacy, [facility] 01/10/2019 1:00 PM Provider Michelle Martin MD Department Hepatology, [facility] 02/16/2019 1:50 PM Provider Alexandr Elder DO Department [facility] Prescriptions: New warfarin 5 mg tablet 5 mg PO DAILY 30 Days Qty: 30 RF: 0 enoxaparin 100 mg/mL Syringe 90 mg subcut DAILY@0800,2000 3 Days Qty: 6 RF: 0 nicotine [Nicoderm CQ] 21 mg/24 hr Patch 24 Hour 21 mg transdermal QAM 30 Days Qty: 30 RF: 0 oxycodone 5 mg Tablet 5 mg PO Q4 PRN (Reason: moderate pain) 4 Days Qty: 16 RF: 0 acetaminophen 325 mg tablet 325 mg PO Q6H PRN (Reason: mild pain) 5 Days Qty: 20 RF: 0 cyclobenzaprine 5 mg Tablet 5 mg PO BID PRN (Reason: muscle spasm) 5 Days Qty: 10 RF: 0 Continued aspirin 81 mg tablet,delayed release (DR/EC) 81 mg PO QAM RF: 0 dronabinol [Marinol] 10 mg Capsule 10 mg PO QAM RF: 0 furosemide [Lasix] 20 mg Tablet 20 mg PO QAM PRN (Reason: Swelling) RF: 0 fluoxetine [Prozac] 20 mg Capsule 40 mg PO QAM RF: 0 fluticasone propionate [Flonase Allergy Relief] 50 mcg/actuation [place],Suspension 2 spray INTRANASAL QAM RF: 0 Prezista 600 mg Tablet 600 mg PO BIDM RF: 0 Symbicort 160-4.5 mcg/actuation Hfa Aerosol Inhaler 2 puff INHALATION Q12H RF: 0 folic acid 1 mg Tablet 1 mg PO QAM RF: 0 gabapentin 800 mg Tablet 800 mg PO TID RF: 0 levetiracetam [Keppra] 1,000 mg Tablet 1,000 mg PO BID RF: 0 ferrous sulfate 325 mg (65 mg iron) tablet 325 mg PO Q OTHER DAY RF: 0 atorvastatin 80 mg tablet 80 mg PO HS RF: 0 trazodone 50 mg tablet 50 - 100 mg PO HS PRN (Reason: Sleep) RF: 0 amlodipine 5 mg tablet 5 mg PO QAM RF: 0 metoprolol tartrate 50 mg tablet 50 mg PO DAILY RF: 0 albuterol sulfate [Ventolin HFA] 90 mcg/actuation HFA aerosol inhaler 2 puff inhalation BID PRN (Reason: Wheezing) RF: 0 ondansetron 4 mg tablet,disintegrating 4 mg PO Q8H PRN (Reason: Nausea And Vomiting) RF: 0 ritonavir 100 mg tablet 100 mg PO BID RF: 0 Florastor 250 mg capsule 250 mg PO BID Qty: 20 RF: 0 doxepin 10 mg capsule 10 mg PO HS PRN (Reason: Insomnia) RF: 0 ipratropium-albuterol 0.5 mg-3 mg(2.5 mg base)/3 mL Solution For Nebulization 3 ml INHALATION Q4H PRN (Reason: Shortness Of Breath Or Wheezing) RF: 0 Isentress 400 mg tablet 400 mg PO BID RF: 0 omeprazole 20 mg Capsule,Delayed Release(Dr/Ec) 20 mg PO QAM RF: 0 Discontinued oxycodone 5 mg tablet 5 mg PO Q6H PRN (Reason: Breakthrough Pain) RF: 0 Eliquis 5 mg tablet 5 mg PO BID RF: 0 Stand-Alone Forms: Call Back Authorization, [facility] Discharge Orders: Discharge Order (Routine); Ordered 12/23/18 Ordered By: Jabier Paul Admission Data Admit Date/Time: 12/17/18 14:21 Attending Provider: Jabier Paul Admit Provider: Sergei Saleem Primary Care Provider: Alexandr Elder Other Providers: Sergei Saleem ; Jose Leon Service: Medical
== END 2018-12-23 12:21 | disposition home health service (06) | DRG 175 ==
LOC: ED 11:27 → 2S 14:21 → SUATTDRO 14:21 → 2S 15:17 → 4E 12-22 12:25

== ENCOUNTER 2019-05-21 13:13 | Inpatient (IN) ==
--- NOTE | 2019-05-21 13:34 | CT Scan Report ---
CT head/brain wo con CLINICAL HISTORY: 54 years-old Male with stroke alert. Acute strokelike symptoms TECHNIQUE: Multiple axial CT images of the head were obtained without contrast. A dose lowering tech nique was utilized adhering to the principles of ALARA. CT DOSE: 537.48 mGy.cm COMPARISON: Head CT 12/17/2018 FINDINGS: No acute intracranial hemorrhage, midline shift, intracranial mass, hydrocephalus, territorial ischem ia or abnormal extra-axial collection. Mild age-related involutional changes. Encephalomalacia of the periventricular right frontal and parietal lobes redemonstrated compatible with remote infarcts rede monstrated. Mild patchy white matter hypodensities suggest chronic microvascular ischemic disease. The calvarium is intact. The paranasal sinuses, mastoid air cells, and middle ear cavities are clear . IMPRESSION: 1. No acute intracranial abnormality. 2. 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 The above report was generated using voice recognition software. It may contain grammatical, syntax o r spelling errors. Electronically signed by: Khoa Trevizo M.D. 05/21/2019 1:33 PM
[2019-05-21 13:54] LABS: iSTAT Creatinine 0.9 mg/dl (0.6-1.3); iSTAT Hemoglobin 13.9 g/dl (14.0-18.0); iSTAT Ionized Calcium 1.15 mmol/l (1.12-1.32); iSTAT Potassium 3.9 mEq/L (3.3-5.0)
[2019-05-21 13:57] LABS: Basophils % (auto) 1.1 %; Eosinophils # (auto) 0.19 K/uL (0-0.5); Hematocrit (blood only) 40.6 % (42-52); Hemoglobin 13.6 g/dL (14.0-18.0); Immature Granulocytes # (auto) 0.03 K/uL (0.00-0.02); Immature Granulocytes % (auto) 0.3 %; Lymphocytes # (auto) 2.01 K/uL (1.2-3.4); Lymphocytes % (auto) 21.5 %; Mean Corpuscular Hemoglobin 27.9 pg (25-34); Mean Corpuscular Hgb Conc 33.5 g/dL (32-36); Mean Corpuscular Volume 83.2 fL (80-100); Mean Platelet Volume 9.6 fL (7.4-10.4); Monocytes # (auto) 0.66 K/uL (0.11-0.59); Monocytes % (auto) 7.1 %; Neutrophils # (auto) 6.34 K/uL (1.4-6.5); Platelet Count 327 K/uL (130-400); RDW Coefficient of Variation 13.7 % (11.5-14.5); RDW Standard Deviation 41.6 fL (36.4-46.3); Red Blood Count 4.88 M/uL (4.7-6.1); White Blood Count 9.33 K/uL (4.8-10.8)
[2019-05-21 14:08] LABS: INR 1.6 (0.9-1.1); Partial Thromboplastin Ratio 1.1; Partial Thromboplastin Time 28.5 Seconds (21.0-31.0); Prothrombin Time 15.7 Seconds (9.0-12.0)
[2019-05-21 14:13] LABS: Alanine Aminotransferase 26 U/L (12-78); Albumin Level 3.9 gm/dl (3.4-5.0); Aspartate Aminotransferase 30 U/L (15-37); BUN Creatinine Ratio 8.4 (10-20); Blood Urea Nitrogen 8 mg/dl (7-18); Calcium 9.1 mg/dl (8.5-10.1); Carbon Dioxide 28 mmol/L (21-32); Chloride 103 mmol/L (98-107); Creatinine Clr Calc Pharmacy 91.6 ml/min; Est GFR (African American) 97.8; Est GFR (Non-African American) 84.4; Glucose 90 mg/dl (70-99); Lipase 226 U/L (73-393); Magnesium 2.5 mg/dl (1.8-2.4); Potassium 3.9 mmol/L (3.5-5.1); Sodium 138 mmol/L (136-145)
--- NOTE | 2019-05-21 14:13 | XRay Report ---
XR chest 1V portable HISTORY: 54 years-old Male chest pain . Acute atypical chest pain COMPARISON: Chest radiograph 04/07/2019 TECHNIQUE: Portable AP view of the chest FINDINGS: Cardiac mediastinal and hilar silhouettes are unchanged. No pneumothorax, pleural effusion or overt p ulmonary edema. Ill-defined opacities of the right lung base are likely projectional with summation d ensity. Mild convex left curvature of the thoracic spine with degenerative changes of the shoulders a nd spine. IMPRESSION: No acute process. The above report was generated using voice recognition software. It may contain grammatical, syntax o r spelling errors. Electronically signed by: Khoa Trevizo M.D. 05/21/2019 2:12 PM
[2019-05-21] MEDS ORDERED: SODIUM CHLORIDE 0.9% 1000ML 1,000 ML IV SCH (14:15)
[2019-05-21 14:18] LABS: Albumin Globulin Ratio 1.2 (0.9-2); Alkaline Phosphatase 122 U/L (45-117); Bilirubin,Total 0.3 mg/dl (0.2-1); Globulin 3.4 gm/dl (2.5-4.0); NT Pro B Type Natriuretic Pept 53 pg/ml (0-900); Total Protein 7.3 gm/dl (6.4-8.2); Troponin I < 0.015 ng/ml (0-0.045)
[2019-05-21] MEDS ORDERED: OPTIRAY 320 125ml IV PRN (15:09)
--- NOTE | 2019-05-21 15:45 | CT Scan Report ---
CHEST CTA for AORTIC DISSECTION, ABDOMEN AND PELVIS CTA CT DOSE: 2714.44 mGy.cm HISTORY: chest pain, RUE paresthesias/weakness TECHNIQUE: Multiaxial CT images of the chest, abdomen, pelvis were performed both before and after th e intravenous administration of contrast to evaluate the aorta. Maximal intensity projection images w ere also obtained. A dose lowering technique was utilized adhering to the principles of ALARA. COMPARISON STUDY: Chest CTA 12/17/2018. Abdomen and pelvis CT 11/14/2018. FINDINGS: Chest CTA: Noncontrast imaging through the chest shows no evidence for an intramural hematoma within the thoracic aorta. Normal caliber thoracic aorta with no evidence for dissection. The central pulmon k[place] arteries remain patent. Normal esophagus. No mediastinal or hilar lymphadenopathy. No pleural or pericardial effusions. The heart is normal in size. No acute rib fractures. No pneumothorax. The cent ral airways are patent. No focal lung consolidations to suggest pneumonia. Abdomen/pelvis CTA: No pneumoperitoneum. No pneumatosis. Patchy sclerotic areas within the femoral he ads consistent with avascular necrosis. This is similar to the prior study. No suspicious lytic or bl astic osseous lesions. Stable 1 cm hypodense lesion within the right hepatic lobe. This favors a cyst . Progressive hepatic steatosis. The spleen, adrenal glands, gallbladder, pancreas, and right kidney are unremarkable. There is a 3 mm hypodense lesion within the left kidney. This is technically too sm all to characterize but statistically represents a cyst. Contrast within the bilateral renal collecti ng systems is noted. No hydronephrosis. No retroperitoneal lymphadenopathy. The bladder is distended. No bladder wall thickening. No pelvic free fluid. Colonic diverticulosis. No evidence for diverticul itis. No bowel wall thickening or obstruction. Moderate stool within the proximal colon. Normal appen [place]. No bowel wall thickening or obstruction. The mesenteric and renal arteries are patent. Atheroscl erotic plaque seen within the ectatic abdominal aorta. The abdominal aorta measures up to 2.8 cm in d iameter. 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 Both lumens opacify. Mo derate stenosis of approximately 60% at the distal left common iliac artery. Up to 50% narrowing with in the left external iliac artery and up to 80% focal narrowing within the proximal left superficial femoral artery. Scattered areas of 50% narrowing within the right common iliac artery, external iliac artery, and superficial femoral artery. This is due to the atherosclerotic plaque. Small focal penet rating ulcer seen within the abdominal aorta posteriorly on image 157. This measures 7 mm and remains unchanged. IMPRESSION: 1. No evidence for aortic dissection. 2. Multifocal stenosis within the bilateral iliac and femoral arteries as described above. This remai ns unchanged. 3. 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 Both lumens opacify. 4. Progressive hepatic steatosis. 5. Additional findings as described above. Electronically signed by: Philip Hair M.D. 05/21/2019 3:42 PM
--- NOTE | 2019-05-21 15:52 | Emergency Department Note ---
Entered by Alanna So acting as a scribe for History of Present Illness General Chief complaint: Stroke Alert Stated complaint: stroke alert Time Seen by Provider: 05/21/19 13:20 Source: patient History of Present Illness Onset (ago): hour(s) (3 hours 21 minutes) Location: head Pain Consistency: + other (episode) Quality: + other (stroke like symptoms) Associated symptoms: + denies other symptoms (left side weakness/numbness, pain in arms or legs) and + other (chest pain, weakness/numbness in right arm, diarrhea, lightheadedness, headache) The patient is a 54 year old male that is presenting to the Emergency Room with complaints of an episode of stroke like symptoms that started around [id number] ago at 1030 this morning. The patient reports that he started feeling some chest pain while he was taking a shower this morning. He states that he then reached to grab a towel when his right arm went completely numb. He notes that the arm felt slightly weaker than usual. He denies any pain in his right arm. He states that the pain worsens with breathing. He denies any unusual numbness or weakness in his left leg beyond some baseline neuropathy. The patient reports that he has a history of stroke and that he has reduced control of his left arm as result. He notes that he is unable to stand on his left leg due to the stroke. He denies any pain in his left arm or leg. He reports that he is feeling lightheaded with an associated headache currently but notes that these symptoms might be secondary to the medications administered by EMS prior to arrival. He notes that the medications did help relieve his chest pain slightly. He states that he had diarrhea recently but notes that he has sick contacts at home. He states that he is currently taking Coumadin for a history of blood clots. He notes that he was found to have a blood clot in his lungs during his last visit to the ED and he states that he is unsure if it is still there. He reports that he has a history of pleurisy and notes that his chest pain resembles past episodes. The patient notes that he had a mild heart issue in the late but denies any other cardiac history. He states that he has a history of pneumonia. He notes that he has a history of hypertension and dyslipidemia which are controlled by medications. He denies any history of diabetes. He notes that he is a current every day smoker. Home Medications Home Medications Medication Instructions Recorded Confirmed Type Symbicort 2 puff INHALATION Q12H 06/08/18 05/21/19 History aspirin 81 mg PO QAM 06/08/18 05/21/19 History dronabinol [Marinol] 10 mg PO QAM 06/08/18 05/21/19 History fluoxetine [Prozac] 40 mg PO QAM 06/08/18 05/21/19 History fluticasone propionate [Flonase 2 spray INTRANASAL QAM PRN 06/08/18 05/21/19 History Allergy Relief] folic acid 1 mg PO QAM 06/08/18 05/21/19 History furosemide [Lasix] 20 mg PO QAM PRN 06/08/18 05/21/19 History gabapentin 800 mg PO TID 08/25/18 05/21/19 History ipratropium-albuterol 3 ml INHALATION Q4H PRN 10/04/18 05/21/19 History omeprazole 20 mg PO QAM 10/04/18 05/21/19 History ferrous sulfate 325 mg PO Q OTHER DAY 10/24/18 05/21/19 History levetiracetam [Keppra] 1,000 mg PO BID 10/24/18 05/21/19 History albuterol sulfate [Ventolin HFA] 2 puff INHALATION BID PRN 11/14/18 05/21/19 History amlodipine 5 mg PO QAM 11/14/18 05/21/19 History ondansetron 4 mg PO Q8H PRN 11/14/18 05/21/19 History Florastor 250 mg PO BID #20 cap 11/15/18 05/21/19 Rx darunavir ethanolate 600 mg tablet 600 mg PO BIDM #180 tab 02/09/19 05/21/19 Rx raltegravir 400 mg tablet 400 mg PO BID #180 tab 02/09/19 05/21/19 Rx ritonavir 100 mg tablet 100 mg PO BID #180 tab 02/09/19 05/21/19 Rx metoprolol succinate 50 mg PO DAILY 04/07/19 05/21/19 History oxycodone 5 mg PO Q6H PRN 04/07/19 05/21/19 History warfarin [Jantoven] 5 mg PO DAILY 04/07/19 05/21/19 History duloxetine 60 mg PO DAILY 05/21/19 05/21/19 History Allergies Allergy/AdvReac Type Severity Reaction Status Date / Time Penicillins Allergy Severe ANAPHYLAXIS Verified 05/21/19 13:30 niacin Allergy Intermediate RASH Verified 05/21/19 13:30 Sulfa (Sulfonamide Allergy Intermediate "ITCHY Verified 05/21/19 13:30 Antibiotics) RASH" tramadol Allergy Mild RASH Verified 05/21/19 13:30 azithromycin Allergy Unknown Verified 05/21/19 13:30 meloxicam AdvReac Intermediate GI SYMPTOMS Verified 05/21/19 13:30 shellfish derived AdvReac Intermediate gi symptoms Verified 05/21/19 13:30 topiramate AdvReac Intermediate NAUSEA Verified 05/21/19 13:30 Past Med/Surg History Medical History (Updated 05/21/19 @ 17:58 by Sherrie Manley DO) Anal dysplasia (Chronic) Anxiety (Chronic) AVM (arteriovenous malformation) brain (Chronic) Carotid artery stenosis (Chronic) Complete R ICA occlusion, L 50-59% Carotid stenosis (Chronic) "03/06/15-SAÚL occlusion, LICA with 50-59% stenosis" Chronic pain syndrome (Chronic) COPD (chronic obstructive pulmonary disease) (Chronic) COPD (chronic obstructive pulmonary disease) Depression (Chronic) DVT (deep venous thrombosis) (Chronic) Dyslipidemia (Chronic) History of alcohol abuse (Chronic) History of CVA (cerebrovascular accident) (Chronic) "in setting of right carotid artery thrombosis" HIV (human immunodeficiency virus infection) (Chronic) Hypertension (Chronic) Migraine (Chronic) Neuropathic pain of both feet (Chronic) Polyp of colon (Chronic 12/21/12) Rib fracture (Resolved) Tobacco abuse (Chronic) Tobacco abuse (Chronic) Surgical History History of anal lesion (Chronic) History of colonoscopy (Chronic) Family History Father Lung cancer Mother Hypertension Social History Preferred Language: Burmese Communication Ability: Effective Rand Butter Required: No Beliefs That Will Affect Care: None marital status: Current Living Situation: Significant Other Other Information That Helps Us Care for You: No Feels Safe at Home: Yes Safety Concerns: Feels Safe At This Time Smoking Status: Current every day smoker Tobacco Type: cigarettes ; Cigarettes Per Day: 10 ; Second Hand Exposure: No ; Hx Alcohol Use: No Hx Substance Use: No Review of Systems See HPI for pertinent positives & negatives. and A total of 10 systems reviewed and were otherwise negative Physical Exam Vital Signs Vital Signs - 24 hr 05/23/19 23:00 05/24/19 00:10 05/24/19 04:10 Temperature 36.6 C 36.6 C Temperature Source Oral Oral Pulse Rate 84 Pulse Rate [Finger] 75 70 Pulse Rhythm [Finger] Pulse Strength [Finger] Respiratory Rate 20 18 Respiratory Effort / Characteristics Non-Labored Spontaneous Respiratory Depth Normal Respiratory Pattern Regular Blood Pressure [Left Arm] Blood Pressure [Right Arm] 142/73 H 135/70 Blood Pressure Mean [Left Arm] Blood Pressure Mean [Right Arm] 96 91 Blood Pressure Position [Left Arm] Blood Pressure Position [Right Arm] Lying Lying Pulse Oximetry 96 93 Oxygen Delivery Method Room Air Room Air 05/24/19 07:31 05/24/19 08:03 05/24/19 11:00 Temperature 36.8 C 36.6 C Temperature Source Oral Oral Pulse Rate 79 Pulse Rate [Finger] 64 81 Pulse Rhythm [Finger] Regular Pulse Strength [Finger] Normal Respiratory Rate 20 18 Respiratory Effort / Characteristics Respiratory Depth Normal Respiratory Pattern Blood Pressure [Left Arm] 131/76 126/82 Blood Pressure [Right Arm] Blood Pressure Mean [Left Arm] 94 96 Blood Pressure Mean [Right Arm] Blood Pressure Position [Left Arm] Lying Lying Blood Pressure Position [Right Arm] Pulse Oximetry 96 97 Oxygen Delivery Method Room Air Room Air GENERAL: alert, well appearing, well nourished, no distress, non-toxic EYE EXAM: normal conjunctiva, PERRL and EOM's grossly intact OROPHARYNX: no exudate, no erythema, lips, buccal mucosa, and tongue normal and mucous membranes are moist NECK: supple, no nuchal rigidity, no adenopathy, non-tender LUNGS: Decreased breath sounds bilaterally. No wheezes, rhonchi, or rales. Normal chest wall mechanics. CHEST: No reproducible chest wall tenderness. HEART: no murmurs, S1 normal and S2 normal ABDOMEN: abdomen soft, non-tender, normo-active bowel sounds, no masses, no rebound or guarding. BACK: Back is symmetrical on inspection and there is no deformity, no midline tenderness, no CVA tenderness. SKIN: no rashes and no bruising UPPER EXTREMITIES: upper extremities are grossly normal. Nml pulses b/l, no evidence of trauma. LOWER EXTREMITIES: No pitting edema. Nml pulses b/l, no evidence of trauma. NEURO EXAM: Decreased strength in left upper and lower extremities (chronic and at baseline as per patient). Subjective altered sensation to right upper extremity. No ataxia. Slightly decreased strength in right upper extremity per patient report. Pt awake and alert. Answering questions appropriately. Course Course 1321:The patient was evaluated in room B01. A complete history and physical examination was performed. 1348: I spoke with Dr. Gamboa, [facility] [place], who confirmed that patient is not a tPA candidate. He recommended continued observation and hospitalist evaluation. 1442: I reevaluated the patient. Patient has no chest pain currently. 1552: Updated patient on all results. Patient states chest pain is slowly starting return. RUE symptoms slightly improved. 1600: Case discussed with Dr. Manley, [facility] hospitalist. Administered Medications Aspirin (Ecotrin Ectab) 81 mg PO QAM [facility] Stop: 06/21/19 08:59 Last Admin: 05/24/19 08:27 Dose: 81 mg Documented by: [id number] Admin: 05/23/19 09:06 Dose: 81 mg Documented by: [id number] Admin: 05/22/19 08:25 Dose: 81 mg Documented by: [id number] Atorvastatin Calcium (Lipitor) 20 mg PO HS [facility] Stop: 06/20/19 20:59 Last Admin: 05/23/19 21:05 Dose: 20 mg Documented by: [id number] Admin: 05/22/19 21:34 Dose: 20 mg Documented by: [id number] Admin: 05/21/19 21:16 Dose: 20 mg Documented by: [id number] Budesonide/Formoterol Fumarate (Symbicort 160mcg/4.5mcg) 2 puffs INH Q12 [facility] Stop: 06/20/19 18:44 Last Admin: 05/24/19 08:26 Dose: 2 puffs Documented by: [id number] Admin: 05/23/19 21:05 Dose: 2 puffs Documented by: [id number] Admin: 05/23/19 09:06 Dose: 2 puffs Documented by: [id number] Admin: 05/22/19 21:36 Dose: 2 puffs Documented by: [id number] Admin: 05/22/19 08:26 Dose: 2 puffs Documented by: [id number] Admin: 05/21/19 19:57 Dose: 2 puffs Documented by: [id number] Darunavir (Prezista) 600 mg PO BIDM [facility] Stop: 06/21/19 07:59 Last Admin: 05/24/19 16:56 Dose: 600 mg Documented by: [id number] Admin: 05/24/19 08:26 Dose: 600 mg Documented by: [id number] Admin: 05/23/19 16:29 Dose: 600 mg Documented by: [id number] Admin: 05/23/19 09:05 Dose: 600 mg Documented by: [id number] Admin: 05/22/19 16:55 Dose: 600 mg Documented by: [id number] Admin: 05/22/19 08:24 Dose: 600 mg Documented by: [id number] Dronabinol (Marinol) 10 mg PO QPM [facility] Stop: 06/20/19 21:29 Last Admin: 05/23/19 21:05 Dose: 10 mg Documented by: [id number] Admin: 05/22/19 21:34 Dose: 10 mg Documented by: [id number] Admin: 05/21/19 22:30 Dose: 10 mg Documented by: [id number] Enoxaparin Sodium (Lovenox) 90 mg SQ Q12H [facility] Stop: 06/22/19 11:59 Last Admin: 05/24/19 12:36 Dose: 90 mg Documented by: [id number] Admin: 05/24/19 00:28 Dose: 90 mg Documented by: [id number] Admin: 05/23/19 13:51 Dose: 90 mg Documented by: [id number] Ferrous Sulfate (Feosol) 325 mg PO Q2D [facility] Stop: 06/21/19 08:59 Last Admin: 05/24/19 08:27 Dose: 325 mg Documented by: [id number] Admin: 05/22/19 08:25 Dose: 325 mg Documented by: [id number] Folic Acid (Folvite) 1 mg PO QAM [facility] Stop: 06/21/19 08:59 Last Admin: 05/24/19 08:27 Dose: 1 mg Documented by: [id number] Admin: 05/23/19 09:05 Dose: 1 mg Documented by: [id number] Admin: 05/22/19 08:25 Dose: 1 mg Documented by: [id number] Gabapentin (Neurontin) 800 mg PO TID [facility] Stop: 06/20/19 20:59 Last Admin: 05/24/19 13:19 Dose: 800 mg Documented by: [id number] Admin: 05/24/19 08:26 Dose: 800 mg Documented by: [id number] Admin: 05/23/19 21:05 Dose: 800 mg Documented by: [id number] Admin: 05/23/19 13:51 Dose: 800 mg Documented by: [id number] Admin: 05/23/19 09:04 Dose: 800 mg Documented by: [id number] Admin: 05/22/19 21:36 Dose: 800 mg Documented by: [id number] Admin: 05/22/19 13:18 Dose: 800 mg Documented by: [id number] Admin: 05/22/19 08:25 Dose: 800 mg Documented by: [id number] Admin: 05/21/19 20:01 Dose: 800 mg Documented by: [id number] Levetiracetam (Keppra) 1,000 mg PO BID [facility] Stop: 06/20/19 20:59 Last Admin: 05/24/19 08:27 Dose: 1,000 mg Documented by: [id number] Admin: 05/23/19 21:06 Dose: 1,000 mg Documented by: [id number] Admin: 05/23/19 09:05 Dose: 1,000 mg Documented by: [id number] Admin: 05/22/19 21:35 Dose: 1,000 mg Documented by: [id number] Admin: 05/22/19 08:26 Dose: 1,000 mg Documented by: [id number] Admin: 05/21/19 19:58 Dose: 1,000 mg Documented by: [id number] Metoprolol Succinate (Toprol Xl) 50 mg PO DAILY [facility] Stop: 06/21/19 08:59 Last Admin: 05/24/19 08:26 Dose: 50 mg Documented by: [id number] Admin: 05/23/19 09:04 Dose: 50 mg Documented by: [id number] Admin: 05/22/19 08:25 Dose: 50 mg Documented by: [id number] Miscellaneous (Remove Nicoderm Patch) 1 ea N/A Q24H O[facility] Stop: 06/21/19 08:58 Last Admin: 05/24/19 08:27 Dose: 1 ea Documented by: [id number] Admin: 05/23/19 09:05 Dose: 1 ea Documented by: [id number] Admin: 05/22/19 08:26 Dose: 1 ea Documented by: [id number] Morphine Sulfate (Morphine Sulfate) 3 mg IV Q6H PRN PRN Reason: Pain Stop: 06/06/19 07:24 Last Admin: 05/24/19 19:35 Dose: 3 mg Documented by: [id number] Admin: 05/24/19 13:19 Dose: 3 mg Documented by: [id number] Admin: 05/24/19 06:19 Dose: 3 mg Documented by: [id number] Admin: 05/23/19 19:32 Dose: 3 mg Documented by: [id number] Admin: 05/23/19 13:50 Dose: 3 mg Documented by: [id number] Admin: 05/23/19 09:02 Dose: 3 mg Documented by: [id number] Nicotine (Nicoderm Cq) 21 mg TD QAM O[facility] Stop: 06/20/19 18:44 Last Admin: 05/24/19 08:27 Dose: 21 mg Documented by: [id number] Admin: 05/23/19 09:03 Dose: 21 mg Documented by: [id number] Admin: 05/22/19 08:26 Dose: 21 mg Documented by: [id number] Admin: 05/21/19 19:56 Dose: 21 mg Documented by: [id number] Oxycodone HCl (Roxicodone Immediate Rel) 5 mg PO Q6H PRN PRN Reason: Pain Stop: 06/04/19 18:42 Last Admin: 05/24/19 15:50 Dose: 5 mg Documented by: [id number] Admin: 05/24/19 08:25 Dose: 5 mg Documented by: [id number] Admin: 05/24/19 00:14 Dose: 5 mg Documented by: [id number] Admin: 05/23/19 11:29 Dose: 5 mg Documented by: [id number] Admin: 05/22/19 17:40 Dose: 5 mg Documented by: [id number] Admin: 05/22/19 11:07 Dose: 5 mg Documented by: [id number] Admin: 05/22/19 05:04 Dose: 5 mg Documented by: [id number] Admin: 05/21/19 19:05 Dose: 5 mg Documented by: [id number] Pantoprazole Sodium (Protonix) 40 mg PO QAM O[facility] Stop: 06/21/19 08:59 Last Admin: 05/24/19 08:26 Dose: 40 mg Documented by: [id number] Admin: 05/23/19 09:04 Dose: 40 mg Documented by: [id number] Admin: 05/22/19 08:25 Dose: 40 mg Documented by: [id number] Raltegravir (Isentress) 400 mg PO BID [facility] Stop: 06/20/19 20:59 Last Admin: 05/24/19 08:27 Dose: 400 mg Documented by: [id number] Admin: 05/23/19 21:06 Dose: 400 mg Documented by: [id number] Admin: 05/23/19 09:04 Dose: 400 mg Documented by: [id number] Admin: 05/22/19 21:34 Dose: 400 mg Documented by: [id number] Admin: 05/22/19 08:24 Dose: 400 mg Documented by: [id number] Admin: 05/21/19 19:58 Dose: 400 mg Documented by: [id number] Ritonavir (Ritonavir) 100 mg PO BID OMAYRA Stop: 06/20/19 20:59 Last Admin: 05/24/19 08:27 Dose: 100 mg Documented by: [id number] Admin: 05/23/19 21:07 Dose: 100 mg Documented by: [id number] Admin: 05/23/19 09:05 Dose: 100 mg Documented by: [id number] Admin: 05/22/19 21:34 Dose: 100 mg Documented by: [id number] Admin: 05/22/19 08:24 Dose: 100 mg Documented by: [id number] Admin: 05/21/19 19:59 Dose: 100 mg Documented by: [id number] Saccharomyces Boulardii (Florastor) 250 mg PO BID O[facility] Stop: 06/20/19 20:59 Last Admin: 05/24/19 08:27 Dose: 250 mg Documented by: [id number] Admin: 05/23/19 21:06 Dose: 250 mg Documented by: [id number] Admin: 05/23/19 09:05 Dose: 250 mg Documented by: [id number] Admin: 05/22/19 21:35 Dose: 250 mg Documented by: [id number] Admin: 05/22/19 08:25 Dose: 250 mg Documented by: [id number] Admin: 05/21/19 20:00 Dose: 250 mg Documented by: [id number] Warfarin Sodium (Coumadin) 7.5 mg PO DAILY@1600 [facility] Stop: 06/22/19 15:59 Last Admin: 05/24/19 15:50 Dose: 7.5 mg Documented by: [id number] Admin: 05/23/19 16:30 Dose: 7.5 mg Documented by: [id number] Zaleplon (Sonata) 10 mg PO HS PRN PRN Reason: Insomnia Stop: 06/21/19 18:16 Last Admin: 05/23/19 21:10 Dose: 10 mg Documented by: [id number] Admin: 05/22/19 21:34 Dose: 10 mg Documented by: [id number] Discontinued Medications Sodium Chloride (Nss 1000ml) 1,000 mls @ 250 mls/hr IV .Q4H O[facility] Stop: 05/21/19 18:14 Last Infusion: 05/21/19 18:17 Dose: 0 mls/hr Documented by: [id number] Admin: 05/21/19 14:22 Dose: 250 mls/hr Documented by: [id number] Famotidine (Pepcid 20mg Iv Push) 20 mg in 5 mls @ 2.5 mls/min IV NOW STA Stop: 05/21/19 16:16 Last Admin: 05/21/19 16:45 Dose: 2.5 mls/min Documented by: [id number] Acetaminophen (Ofirmev) 1,000 mg in 100 mls @ 400 mls/hr IV NOW STA Stop: 05/21/19 16:29 Last Infusion: 05/21/19 16:59 Dose: 0 mls/hr Documented by: [id number] Admin: 05/21/19 16:44 Dose: 400 mls/hr Documented by: [id number] Ioversol (Optiray 320 125ml) 111 ml IV ONCE PRN PRN Reason: Interaction Checking Stop: 05/25/19 15:08 Last Admin: 05/21/19 15:09 Dose: 111 ml Documented by: [id number] Morphine Sulfate (Morphine Sulfate) 3 mg IV NOW STA Stop: 05/22/19 14:47 Last Admin: 05/22/19 15:13 Dose: 3 mg Documented by: [id number] Nitroglycerin (Nitro-Bid 2%) 0.5 inch EXT NOW STA Stop: 05/21/19 16:16 Last Admin: 05/21/19 16:44 Dose: 0.5 inch Documented by: [id number] Warfarin Sodium (Coumadin) 5 mg PO DAILY@1600 O[facility] Stop: 06/21/19 15:59 Last Admin: 05/22/19 16:55 Dose: 5 mg Documented by: [id number] Medical Decision Making Differential Diagnosis Differential diagnoses includes but is not limited to acute coronary syndrome, myocardial infarction, pericarditis, pulmonary embolus, aortic dissection, pneumonia, pneumothorax, musculoskeletal, shingles, esophageal. Medical Records Attestation: I reviewed the patient's medical records. Home Medications Current Medication List: was personally reviewed by me Laboratory Data Attestation: I reviewed the patient's lab results. Result diagrams: 05/24/19 06:58 05/24/19 06:58 Lab Results 05/21/19 05/21/19 05/21/19 Range/Units 13:27 13:32 13:39 WBC (4.8-10.8) K/uL RBC (4.7-6.1) M/uL Hgb (14.0-18.0) g/dL POC Hgb 13.9 L (14.0-18.0) g/dl Hct (42-52) % POC Hct 41 L (42-52) % MCV (80-100) fL MCH (25-34) pg MCHC (32-36) g/dL RDW Std Deviation (36.4-46.3) fL RDW Coeff of Tanesha (11.5-14.5) % Plt Count (130-400) K/uL MPV (7.4-10.4) fL Immature Gran % (Auto) % Neut % (Auto) % Lymph % (Auto) % [place] % (Auto) % Eos % (Auto) % Baso % (Auto) % Immature Gran # (Auto) (0.00-0.02) K/uL Neut # (Auto) (1.4-6.5) K/uL Lymph # (Auto) (1.2-3.4) K/uL [place] # (Auto) (0.11-0.59) K/uL Eos # (Auto) (0-0.5) K/uL Baso # (Auto) (0-0.2) K/uL PT (9.0-12.0) Seconds POC INR 1.9 H (0.9-1.1) INR (0.9-1.1) APTT (21.0-31.0) Seconds PTT Ratio POC Sodium 137 (135-144) mEq/L Sodium (136-145) mmol/L POC Potassium 3.9 (3.3-5.0) mEq/L Potassium (3.5-5.1) mmol/L POC Chloride 102 (101-112) mEq/L Chloride (98-107) mmol/L Carbon Dioxide (21-32) mmol/L POC Total CO2 28 (24-31) mEq/l Anion Gap (3-11) POC Anion Gap 12.0 L (16-25) mmol/L POC BUN 7 (7-18) mg/dl BUN (7-18) mg/dl Creatinine (0.6-1.4) mg/dl POC Creatinine 0.9 (0.6-1.3) mg/dl Est Cr Clr Drug Dosing ml/min Est GFR ( Amer) Est GFR (Non-Af Amer) BUN/Creatinine Ratio (10-20) Glucose (70-99) mg/dl POC Glucose 91 (70-99) POC Glucose (other) 89 (70-99) mg/dl Estimat Average Glucose mg/dl Hemoglobin A1c (4.5-5.6) % Calcium (8.5-10.1) mg/dl POC Ioniz Calcium Froilan 1.15 (1.12-1.32) mmol/l Magnesium (1.8-2.4) mg/dl Total Bilirubin (0.2-1) mg/dl AST (15-37) U/L ALT (12-78) U/L Alkaline Phosphatase (45-117) U/L Troponin I (0-0.045) ng/ml NT-Pro-B Natriuret Pep (0-900) pg/ml Total Protein (6.4-8.2) gm/dl Albumin (3.4-5.0) gm/dl Globulin (2.5-4.0) gm/dl Albumin/Globulin Ratio (0.9-2) Triglycerides (0-150) mg/dl Cholesterol (0-200) mg/dl LDL Cholesterol, Calc mg/dl VLDL Cholesterol, Calc mg/dl HDL Cholesterol mg/dl Cholesterol/HDL Ratio Lipase (73-393) U/L Urine Opiates Screen (Neg) Ur Methadone, Qual (Neg) Urine Barbiturates (Neg) Ur Phencyclidine (PCP) (Neg) U Amphetamin/Meth Scrn (Neg) MDMA (Ecstasy) Screen (Neg) U Benzodiazepines Scrn (Neg) Ur Cocaine Metabolite (Neg) U Marijuana (THC) Screen (Neg) U Marijuana THC Carboxy (<5) ng/mL Drug Screen Comment Absolute Lymphocytes (850-3900) cells/uL % CD4 Cells (30-61) % Absolute CD4 Count (490-1740) cells/uL HIV-1 RNA PCR copies/ml (NOT DETECTED) copies/mL HIV-1 RNA (PCR) log (NOT DETECTED) Blood Type Antibody Screen 05/21/19 05/21/19 05/21/19 Range/Units 13:40 13:40 13:40 WBC 9.33 (4.8-10.8) K/uL RBC 4.88 (4.7-6.1) M/uL Hgb 13.6 L (14.0-18.0) g/dL POC Hgb (14.0-18.0) g/dl Hct 40.6 L (42-52) % POC Hct (42-52) % MCV 83.2 (80-100) fL MCH 27.9 (25-34) pg MCHC 33.5 (32-36) g/dL RDW Std Deviation 41.6 (36.4-46.3) fL RDW Coeff of Tanesha 13.7 (11.5-14.5) % Plt Count 327 (130-400) K/uL MPV 9.6 (7.4-10.4) fL Immature Gran % (Auto) 0.3 % Neut % (Auto) 68.0 % Lymph % (Auto) 21.5 % [place] % (Auto) 7.1 % Eos % (Auto) 2.0 % Baso % (Auto) 1.1 % Immature Gran # (Auto) 0.03 H (0.00-0.02) K/uL Neut # (Auto) 6.34 (1.4-6.5) K/uL Lymph # (Auto) 2.01 (1.2-3.4) K/uL [place] # (Auto) 0.66 H (0.11-0.59) K/uL Eos # (Auto) 0.19 (0-0.5) K/uL Baso # (Auto) 0.10 (0-0.2) K/uL PT 15.7 H (9.0-12.0) Seconds POC INR (0.9-1.1) INR 1.6 H (0.9-1.1) APTT 28.5 (21.0-31.0) Seconds PTT Ratio 1.1 POC Sodium (135-144) mEq/L Sodium 138 (136-145) mmol/L POC Potassium (3.3-5.0) mEq/L Potassium 3.9 (3.5-5.1) mmol/L POC Chloride (101-112) mEq/L Chloride 103 (98-107) mmol/L Carbon Dioxide 28 (21-32) mmol/L POC Total CO2 (24-31) mEq/l Anion Gap 7.0 (3-11) POC Anion Gap (16-25) mmol/L POC BUN (7-18) mg/dl BUN 8 (7-18) mg/dl Creatinine 1.00 (0.6-1.4) mg/dl POC Creatinine (0.6-1.3) mg/dl Est Cr Clr Drug Dosing 91.6 ml/min Est GFR ( Amer) 97.8 Est GFR (Non-Af Amer) 84.4 BUN/Creatinine Ratio 8.4 L (10-20) Glucose 90 (70-99) mg/dl POC Glucose (70-99) POC Glucose (other) (70-99) mg/dl Estimat Average Glucose mg/dl Hemoglobin A1c (4.5-5.6) % Calcium 9.1 (8.5-10.1) mg/dl POC Ioniz Calcium Froil[place] (1.12-1.32) mmol/l Magnesium 2.5 H (1.8-2.4) mg/dl Total Bilirubin 0.3 (0.2-1) mg/dl AST 30 (15-37) U/L ALT 26 (12-78) U/L Alkaline Phosphatase 122 H (45-117) U/L Troponin I < 0.015 (0-0.045) ng/ml NT-Pro-B Natriuret Pep 53 (0-900) pg/ml Total Protein 7.3 (6.4-8.2) gm/dl Albumin 3.9 (3.4-5.0) gm/dl Globulin 3.4 (2.5-4.0) gm/dl Albumin/Globulin Ratio 1.2 (0.9-2) Triglycerides (0-150) mg/dl Cholesterol (0-200) mg/dl LDL Cholesterol, Calc mg/dl VLDL Cholesterol, Calc mg/dl HDL Cholesterol mg/dl Cholesterol/HDL Ratio Lipase 226 (73-393) U/L Urine Opiates Screen (Neg) Ur Methadone, Qual (Neg) Urine Barbiturates (Neg) Ur Phencyclidine (PCP) (Neg) U Amphetamin/Meth Scrn (Neg) MDMA (Ecstasy) Screen (Neg) U Benzodiazepines Scrn (Neg) Ur Cocaine Metabolite (Neg) U Marijuana (THC) Screen (Neg) U Marijuana THC Carboxy (<5) ng/mL Drug Screen Comment Absolute Lymphocytes (850-3900) cells/uL % CD4 Cells (30-61) % Absolute CD4 Count (490-1740) cells/uL HIV-1 RNA PCR copies/ml (NOT DETECTED) copies/mL HIV-1 RNA (PCR) log (NOT DETECTED) Blood Type Antibody Screen 05/21/19 05/21/19 05/21/19 Range/Units 13:40 15:20 15:20 WBC (4.8-10.8) K/uL RBC (4.7-6.1) M/uL Hgb (14.0-18.0) g/dL POC Hgb (14.0-18.0) g/dl Hct (42-52) % POC Hct (42-52) % MCV (80-100) fL MCH (25-34) pg MCHC (32-36) g/dL RDW Std Deviation (36.4-46.3) fL RDW Coeff of Tanesha (11.5-14.5) % Plt Count (130-400) K/uL MPV (7.4-10.4) fL Immature Gran % (Auto) % Neut % (Auto) % Lymph % (Auto) % [place] % (Auto) % Eos % (Auto) % Baso % (Auto) % Immature Gran # (Auto) (0.00-0.02) K/uL Neut # (Auto) (1.4-6.5) K/uL Lymph # (Auto) (1.2-3.4) K/uL [place] # (Auto) (0.11-0.59) K/uL Eos # (Auto) (0-0.5) K/uL Baso # (Auto) (0-0.2) K/uL PT (9.0-12.0) Seconds POC INR (0.9-1.1) INR (0.9-1.1) APTT (21.0-31.0) Seconds PTT Ratio POC Sodium (135-144) mEq/L Sodium (136-145) mmol/L POC Potassium (3.3-5.0) mEq/L Potassium (3.5-5.1) mmol/L POC Chloride (101-112) mEq/L Chloride (98-107) mmol/L Carbon Dioxide (21-32) mmol/L POC Total CO2 (24-31) mEq/l Anion Gap (3-11) POC Anion Gap (16-25) mmol/L POC BUN (7-18) mg/dl BUN (7-18) mg/dl Creatinine (0.6-1.4) mg/dl POC Creatinine (0.6-1.3) mg/dl Est Cr Clr Drug Dosing ml/min Est GFR ( Amer) Est GFR (Non-Af Amer) BUN/Creatinine Ratio (10-20) Glucose (70-99) mg/dl POC Glucose (70-99) POC Glucose (other) (70-99) mg/dl Estimat Average Glucose mg/dl Hemoglobin A1c (4.5-5.6) % Calcium (8.5-10.1) mg/dl POC Ioniz Calcium Froilan (1.12-1.32) mmol/l Magnesium (1.8-2.4) mg/dl Total Bilirubin (0.2-1) mg/dl AST (15-37) U/L ALT (12-78) U/L Alkaline Phosphatase (45-117) U/L Troponin I (0-0.045) ng/ml NT-Pro-B Natriuret Pep (0-900) pg/ml Total Protein (6.4-8.2) gm/dl Albumin (3.4-5.0) gm/dl Globulin (2.5-4.0) gm/dl Albumin/Globulin Ratio (0.9-2) Triglycerides (0-150) mg/dl Cholesterol (0-200) mg/dl LDL Cholesterol, Calc mg/dl VLDL Cholesterol, Calc mg/dl HDL Cholesterol mg/dl Cholesterol/HDL Ratio Lipase (73-393) U/L Urine Opiates Screen Neg (Neg) Ur Methadone, Qual Neg (Neg) Urine Barbiturates Neg (Neg) Ur Phencyclidine (PCP) Neg (Neg) U Amphetamin/Meth Scrn Neg (Neg) MDMA (Ecstasy) Screen Neg (Neg) U Benzodiazepines Scrn Neg (Neg) Ur Cocaine Metabolite Neg (Neg) U Marijuana (THC) Screen Pos H (Neg) U Marijuana THC Carboxy 221 H (<5) ng/mL Drug Screen Comment SEE NOTE Absolute Lymphocytes (850-3900) cells/uL % CD4 Cells (30-61) % Absolute CD4 Count (490-1740) cells/uL HIV-1 RNA PCR copies/ml (NOT DETECTED) copies/mL HIV-1 RNA (PCR) log (NOT DETECTED) Blood Type A Positive Antibody Screen NEGATIVE 05/21/19 05/21/19 05/22/19 Range/Units 16:43 19:08 00:13 WBC (4.8-10.8) K/uL RBC (4.7-6.1) M/uL Hgb (14.0-18.0) g/dL POC Hgb (14.0-18.0) g/dl Hct (42-52) % POC Hct (42-52) % MCV (80-100) fL MCH (25-34) pg MCHC (32-36) g/dL RDW Std Deviation (36.4-46.3) fL RDW Coeff of Tanesha (11.5-14.5) % Plt Count (130-400) K/uL MPV (7.4-10.4) fL Immature Gran % (Auto) % Neut % (Auto) % Lymph % (Auto) % [place] % (Auto) % Eos % (Auto) % Baso % (Auto) % Immature Gran # (Auto) (0.00-0.02) K/uL Neut # (Auto) (1.4-6.5) K/uL Lymph # (Auto) (1.2-3.4) K/uL [place] # (Auto) (0.11-0.59) K/uL Eos # (Auto) (0-0.5) K/uL Baso # (Auto) (0-0.2) K/uL PT (9.0-12.0) Seconds POC INR (0.9-1.1) INR (0.9-1.1) APTT (21.0-31.0) Seconds PTT Ratio POC Sodium (135-144) mEq/L Sodium (136-145) mmol/L POC Potassium (3.3-5.0) mEq/L Potassium (3.5-5.1) mmol/L POC Chloride (101-112) mEq/L Chloride (98-107) mmol/L Carbon Dioxide (21-32) mmol/L POC Total CO2 (24-31) mEq/l Anion Gap (3-11) POC Anion Gap (16-25) mmol/L POC BUN (7-18) mg/dl BUN (7-18) mg/dl Creatinine (0.6-1.4) mg/dl POC Creatinine (0.6-1.3) mg/dl Est Cr Clr Drug Dosing ml/min Est GFR ( Amer) Est GFR (Non-Af Amer) BUN/Creatinine Ratio (10-20) Glucose (70-99) mg/dl POC Glucose (70-99) POC Glucose (other) (70-99) mg/dl Estimat Average Glucose mg/dl Hemoglobin A1c (4.5-5.6) % Calcium (8.5-10.1) mg/dl POC Ioniz Calcium Froilan (1.12-1.32) mmol/l Magnesium (1.8-2.4) mg/dl Total Bilirubin (0.2-1) mg/dl AST (15-37) U/L ALT (12-78) U/L Alkaline Phosphatase (45-117) U/L Troponin I < 0.015 < 0.015 (0-0.045) ng/ml NT-Pro-B Natriuret Pep (0-900) pg/ml Total Protein (6.4-8.2) gm/dl Albumin (3.4-5.0) gm/dl Globulin (2.5-4.0) gm/dl Albumin/Globulin Ratio (0.9-2) Triglycerides (0-150) mg/dl Cholesterol (0-200) mg/dl LDL Cholesterol, Calc mg/dl VLDL Cholesterol, Calc mg/dl HDL Cholesterol mg/dl Cholesterol/HDL Ratio Lipase (73-393) U/L Urine Opiates Screen (Neg) Ur Methadone, Qual (Neg) Urine Barbiturates (Neg) Ur Phencyclidine (PCP) (Neg) U Amphetamin/Meth Scrn (Neg) MDMA (Ecstasy) Screen (Neg) U Benzodiazepines Scrn (Neg) Ur Cocaine Metabolite (Neg) U Marijuana (THC) Screen (Neg) U Marijuana THC Carboxy (<5) ng/mL Drug Screen Comment Absolute Lymphocytes 2079 (850-3900) cells/uL % CD4 Cells 23 L (30-61) % Absolute CD4 Count 473 L (490-1740) cells/uL HIV-1 RNA PCR copies/ml 58 H (NOT DETECTED) copies/mL HIV-1 RNA (PCR) log 1.76 H (NOT DETECTED) Blood Type Antibody Screen 05/22/19 05/22/19 05/22/19 Range/Units 06:53 06:53 06:53 WBC 6.40 (4.8-10.8) K/uL RBC 4.44 L (4.7-6.1) M/uL Hgb 11.9 L (14.0-18.0) g/dL POC Hgb (14.0-18.0) g/dl Hct 36.4 L (42-52) % POC Hct (42-52) % MCV 82.0 (80-100) fL MCH 26.8 (25-34) pg MCHC 32.7 (32-36) g/dL RDW Std Deviation 42.0 (36.4-46.3) fL RDW Coeff of Tanesha 13.9 (11.5-14.5) % Plt Count 282 (130-400) K/uL MPV 9.4 (7.4-10.4) fL Immature Gran % (Auto) 0.2 % Neut % (Auto) 55.5 % Lymph % (Auto) 33.0 % [place] % (Auto) 8.6 % Eos % (Auto) 1.9 % Baso % (Auto) 0.8 % Immature Gran # (Auto) 0.01 (0.00-0.02) K/uL Neut # (Auto) 3.56 (1.4-6.5) K/uL Lymph # (Auto) 2.11 (1.2-3.4) K/uL [place] # (Auto) 0.55 (0.11-0.59) K/uL Eos # (Auto) 0.12 (0-0.5) K/uL Baso # (Auto) 0.05 (0-0.2) K/uL PT 18.3 H (9.0-12.0) Seconds POC INR (0.9-1.1) INR 1.9 H (0.9-1.1) APTT (21.0-31.0) Seconds PTT Ratio POC Sodium (135-144) mEq/L Sodium (136-145) mmol/L POC Potassium (3.3-5.0) mEq/L Potassium (3.5-5.1) mmol/L POC Chloride (101-112) mEq/L Chloride (98-107) mmol/L Carbon Dioxide (21-32) mmol/L POC Total CO2 (24-31) mEq/l Anion Gap (3-11) POC Anion Gap (16-25) mmol/L POC BUN (7-18) mg/dl BUN (7-18) mg/dl Creatinine (0.6-1.4) mg/dl POC Creatinine (0.6-1.3) mg/dl Est Cr Clr Drug Dosing ml/min Est GFR ( Amer) Est GFR (Non-Af Amer) BUN/Creatinine Ratio (10-20) Glucose (70-99) mg/dl POC Glucose (70-99) POC Glucose (other) (70-99) mg/dl Estimat Average Glucose 134 mg/dl Hemoglobin A1c 6.3 H (4.5-5.6) % Calcium (8.5-10.1) mg/dl POC Ioniz Calcium Froilan (1.12-1.32) mmol/l Magnesium (1.8-2.4) mg/dl Total Bilirubin (0.2-1) mg/dl AST (15-37) U/L ALT (12-78) U/L Alkaline Phosphatase (45-117) U/L Troponin I (0-0.045) ng/ml NT-Pro-B Natriuret Pep (0-900) pg/ml Total Protein (6.4-8.2) gm/dl Albumin (3.4-5.0) gm/dl Globulin (2.5-4.0) gm/dl Albumin/Globulin Ratio (0.9-2) Triglycerides (0-150) mg/dl Cholesterol (0-200) mg/dl LDL Cholesterol, Calc mg/dl VLDL Cholesterol, Calc mg/dl HDL Cholesterol mg/dl Cholesterol/HDL Ratio Lipase (73-393) U/L Urine Opiates Screen (Neg) Ur Methadone, Qual (Neg) Urine Barbiturates (Neg) Ur Phencyclidine (PCP) (Neg) U Amphetamin/Meth Scrn (Neg) MDMA (Ecstasy) Screen (Neg) U Benzodiazepines Scrn (Neg) Ur Cocaine Metabolite (Neg) U Marijuana (THC) Screen (Neg) U Marijuana THC Carboxy (<5) ng/mL Drug Screen Comment Absolute Lymphocytes (850-3900) cells/uL % CD4 Cells (30-61) % Absolute CD4 Count (490-1740) cells/uL HIV-1 RNA PCR copies/ml (NOT DETECTED) copies/mL HIV-1 RNA (PCR) log (NOT DETECTED) Blood Type Antibody Screen 05/22/19 05/23/19 05/23/19 Range/Units 06:53 06:23 06:23 WBC 7.02 (4.8-10.8) K/uL RBC 4.44 L (4.7-6.1) M/uL Hgb 12.0 L (14.0-18.0) g/dL POC Hgb (14.0-18.0) g/dl Hct 37.1 L (42-52) % POC Hct (42-52) % MCV 83.6 (80-100) fL MCH 27.0 (25-34) pg MCHC 32.3 (32-36) g/dL RDW Std Deviation 43.3 (36.4-46.3) fL RDW Coeff of Tanesha 14.1 (11.5-14.5) % Plt Count 303 (130-400) K/uL MPV 9.6 (7.4-10.4) fL Immature Gran % (Auto) 0.3 % Neut % (Auto) 51.0 % Lymph % (Auto) 36.5 % [place] % (Auto) 9.0 % Eos % (Auto) 2.3 % Baso % (Auto) 0.9 % Immature Gran # (Auto) 0.02 (0.00-0.02) K/uL Neut # (Auto) 3.59 (1.4-6.5) K/uL Lymph # (Auto) 2.56 (1.2-3.4) K/uL [place] # (Auto) 0.63 H (0.11-0.59) K/uL Eos # (Auto) 0.16 (0-0.5) K/uL Baso # (Auto) 0.06 (0-0.2) K/uL PT 17.2 H (9.0-12.0) Seconds POC INR (0.9-1.1) INR 1.7 H (0.9-1.1) APTT (21.0-31.0) Seconds PTT Ratio POC Sodium (135-144) mEq/L Sodium 138 (136-145) mmol/L POC Potassium (3.3-5.0) mEq/L Potassium 4.0 (3.5-5.1) mmol/L POC Chloride (101-112) mEq/L Chloride 105 (98-107) mmol/L Carbon Dioxide 27 (21-32) mmol/L POC Total CO2 (24-31) mEq/l Anion Gap 6.0 (3-11) POC Anion Gap (16-25) mmol/L POC BUN (7-18) mg/dl BUN 8 (7-18) mg/dl Creatinine 0.88 (0.6-1.4) mg/dl POC Creatinine (0.6-1.3) mg/dl Est Cr Clr Drug Dosing 104.1 ml/min Est GFR ( Amer) 112.1 Est GFR (Non-Af Amer) 96.7 BUN/Creatinine Ratio 9.1 L (10-20) Glucose 94 (70-99) mg/dl POC Glucose (70-99) POC Glucose (other) (70-99) mg/dl Estimat Average Glucose mg/dl Hemoglobin A1c (4.5-5.6) % Calcium 9.2 (8.5-10.1) mg/dl POC Ioniz Calcium Froilan (1.12-1.32) mmol/l Magnesium (1.8-2.4) mg/dl Total Bilirubin (0.2-1) mg/dl AST (15-37) U/L ALT (12-78) U/L Alkaline Phosphatase (45-117) U/L Troponin I (0-0.045) ng/ml NT-Pro-B Natriuret Pep (0-900) pg/ml Total Protein (6.4-8.2) gm/dl Albumin (3.4-5.0) gm/dl Globulin (2.5-4.0) gm/dl Albumin/Globulin Ratio (0.9-2) Triglycerides 218 H (0-150) mg/dl Cholesterol 241 H (0-200) mg/dl LDL Cholesterol, Calc 157 mg/dl VLDL Cholesterol, Calc 44 mg/dl HDL Cholesterol 40 mg/dl Cholesterol/HDL Ratio 6 Lipase (73-393) U/L Urine Opiates Screen (Neg) Ur Methadone, Qual (Neg) Urine Barbiturates (Neg) Ur Phencyclidine (PCP) (Neg) U Amphetamin/Meth Scrn (Neg) MDMA (Ecstasy) Screen (Neg) U Benzodiazepines Scrn (Neg) Ur Cocaine Metabolite (Neg) U Marijuana (THC) Screen (Neg) U Marijuana THC Carboxy (<5) ng/mL Drug Screen Comment Absolute Lymphocytes (850-3900) cells/uL % CD4 Cells (30-61) % Absolute CD4 Count (490-1740) cells/uL HIV-1 RNA PCR copies/ml (NOT DETECTED) copies/mL HIV-1 RNA (PCR) log (NOT DETECTED) Blood Type Antibody Screen 05/23/19 05/24/19 05/24/19 Range/Units 06:23 06:58 06:58 WBC 7.92 (4.8-10.8) K/uL RBC 4.42 L (4.7-6.1) M/uL Hgb 11.8 L (14.0-18.0) g/dL POC Hgb (14.0-18.0) g/dl Hct 37.3 L (42-52) % POC Hct (42-52) % MCV 84.4 (80-100) fL MCH 26.7 (25-34) pg MCHC 31.6 L (32-36) g/dL RDW Std Deviation 44.1 (36.4-46.3) fL RDW Coeff of Tanesha 14.1 (11.5-14.5) % Plt Count 303 (130-400) K/uL MPV 9.4 (7.4-10.4) fL Immature Gran % (Auto) 0.3 % Neut % (Auto) 47.2 % Lymph % (Auto) 38.3 % [place] % (Auto) 10.2 % Eos % (Auto) 2.5 % Baso % (Auto) 1.5 % Immature Gran # (Auto) 0.02 (0.00-0.02) K/uL Neut # (Auto) 3.74 (1.4-6.5) K/uL Lymph # (Auto) 3.03 (1.2-3.4) K/uL [place] # (Auto) 0.81 H (0.11-0.59) K/uL Eos # (Auto) 0.20 (0-0.5) K/uL Baso # (Auto) 0.12 (0-0.2) K/uL PT 18.2 H (9.0-12.0) Seconds POC INR (0.9-1.1) INR 1.9 H (0.9-1.1) APTT (21.0-31.0) Seconds PTT Ratio POC Sodium (135-144) mEq/L Sodium 138 (136-145) mmol/L POC Potassium (3.3-5.0) mEq/L Potassium 4.1 (3.5-5.1) mmol/L POC Chloride (101-112) mEq/L Chloride 106 (98-107) mmol/L Carbon Dioxide 30 (21-32) mmol/L POC Total CO2 (24-31) mEq/l Anion Gap 2.0 L (3-11) POC Anion Gap (16-25) mmol/L POC BUN (7-18) mg/dl BUN 14 D (7-18) mg/dl Creatinine 1.01 (0.6-1.4) mg/dl POC Creatinine (0.6-1.3) mg/dl Est Cr Clr Drug Dosing 90.7 ml/min Est GFR ( Amer) 96.6 Est GFR (Non-Af Amer) 83.3 BUN/Creatinine Ratio 14.0 (10-20) Glucose 114 H (70-99) mg/dl POC Glucose (70-99) POC Glucose (other) (70-99) mg/dl Estimat Average Glucose mg/dl Hemoglobin A1c (4.5-5.6) % Calcium 9.1 (8.5-10.1) mg/dl POC Ioniz Calcium Froilan (1.12-1.32) mmol/l Magnesium (1.8-2.4) mg/dl Total Bilirubin (0.2-1) mg/dl AST (15-37) U/L ALT (12-78) U/L Alkaline Phosphatase (45-117) U/L Troponin I (0-0.045) ng/ml NT-Pro-B Natriuret Pep (0-900) pg/ml Total Protein (6.4-8.2) gm/dl Albumin (3.4-5.0) gm/dl Globulin (2.5-4.0) gm/dl Albumin/Globulin Ratio (0.9-2) Triglycerides (0-150) mg/dl Cholesterol (0-200) mg/dl LDL Cholesterol, Calc mg/dl VLDL Cholesterol, Calc mg/dl HDL Cholesterol mg/dl Cholesterol/HDL Ratio Lipase (73-393) U/L Urine Opiates Screen (Neg) Ur Methadone, Qual (Neg) Urine Barbiturates (Neg) Ur Phencyclidine (PCP) (Neg) U Amphetamin/Meth Scrn (Neg) MDMA (Ecstasy) Screen (Neg) U Benzodiazepines Scrn (Neg) Ur Cocaine Metabolite (Neg) U Marijuana (THC) Screen (Neg) U Marijuana THC Carboxy (<5) ng/mL Drug Screen Comment Absolute Lymphocytes (850-3900) cells/uL % CD4 Cells (30-61) % Absolute CD4 Count (490-1740) cells/uL HIV-1 RNA PCR copies/ml (NOT DETECTED) copies/mL HIV-1 RNA (PCR) log (NOT DETECTED) Blood Type Antibody Screen 05/24/19 Range/Units 06:58 WBC (4.8-10.8) K/uL RBC (4.7-6.1) M/uL Hgb (14.0-18.0) g/dL POC Hgb (14.0-18.0) g/dl Hct (42-52) % POC Hct (42-52) % MCV (80-100) fL MCH (25-34) pg MCHC (32-36) g/dL RDW Std Deviation (36.4-46.3) fL RDW Coeff of Tanesha (11.5-14.5) % Plt Count (130-400) K/uL MPV (7.4-10.4) fL Immature Gran % (Auto) % Neut % (Auto) % Lymph % (Auto) % [place] % (Auto) % Eos % (Auto) % Baso % (Auto) % Immature Gran # (Auto) (0.00-0.02) K/uL Neut # (Auto) (1.4-6.5) K/uL Lymph # (Auto) (1.2-3.4) K/uL [place] # (Auto) (0.11-0.59) K/uL Eos # (Auto) (0-0.5) K/uL Baso # (Auto) (0-0.2) K/uL PT (9.0-12.0) Seconds POC INR (0.9-1.1) INR (0.9-1.1) APTT (21.0-31.0) Seconds PTT Ratio POC Sodium (135-144) mEq/L Sodium 138 (136-145) mmol/L POC Potassium (3.3-5.0) mEq/L Potassium 3.9 (3.5-5.1) mmol/L POC Chloride (101-112) mEq/L Chloride 107 (98-107) mmol/L Carbon Dioxide 27 (21-32) mmol/L POC Total CO2 (24-31) mEq/l Anion Gap 4.0 (3-11) POC Anion Gap (16-25) mmol/L POC BUN (7-18) mg/dl BUN 13 (7-18) mg/dl Creatinine 0.94 (0.6-1.4) mg/dl POC Creatinine (0.6-1.3) mg/dl Est Cr Clr Drug Dosing 97.5 ml/min Est GFR ( Amer) 105.4 Est GFR (Non-Af Amer) 90.9 BUN/Creatinine Ratio 14.2 (10-20) Glucose 92 (70-99) mg/dl POC Glucose (70-99) POC Glucose (other) (70-99) mg/dl Estimat Average Glucose mg/dl Hemoglobin A1c (4.5-5.6) % Calcium 9.2 (8.5-10.1) mg/dl POC Ioniz Calcium Froilan (1.12-1.32) mmol/l Magnesium (1.8-2.4) mg/dl Total Bilirubin (0.2-1) mg/dl AST (15-37) U/L ALT (12-78) U/L Alkaline Phosphatase (45-117) U/L Troponin I (0-0.045) ng/ml NT-Pro-B Natriuret Pep (0-900) pg/ml Total Protein (6.4-8.2) gm/dl Albumin (3.4-5.0) gm/dl Globulin (2.5-4.0) gm/dl Albumin/Globulin Ratio (0.9-2) Triglycerides (0-150) mg/dl Cholesterol (0-200) mg/dl LDL Cholesterol, Calc mg/dl VLDL Cholesterol, Calc mg/dl HDL Cholesterol mg/dl Cholesterol/HDL Ratio Lipase (73-393) U/L Urine Opiates Screen (Neg) Ur Methadone, Qual (Neg) Urine Barbiturates (Neg) Ur Phencyclidine (PCP) (Neg) U Amphetamin/Meth Scrn (Neg) MDMA (Ecstasy) Screen (Neg) U Benzodiazepines Scrn (Neg) Ur Cocaine Metabolite (Neg) U Marijuana (THC) Screen (Neg) U Marijuana THC Carboxy (<5) ng/mL Drug Screen Comment Absolute Lymphocytes (850-3900) cells/uL % CD4 Cells (30-61) % Absolute CD4 Count (490-1740) cells/uL HIV-1 RNA PCR copies/ml (NOT DETECTED) copies/mL HIV-1 RNA (PCR) log (NOT DETECTED) Blood Type Antibody Screen Imaging Data Radiologist's Impression: Radiology results as stated below per my review and the radiologist's interpretation: CT head/brain wo con CLINICAL HISTORY: 54 years-old Male with stroke alert. Acute strokelike symptoms TECHNIQUE: Multiple axial CT images of the head were obtained without contrast. A dose lowering technique was utilized adhering to the principles of ALARA. CT DOSE: 537.48 mGy.cm COMPARISON: Head CT 12/17/2018 FINDINGS: No acute intracranial hemorrhage, midline shift, intracranial mass, hydrocephalus, territorial ischemia or abnormal extra-axial collection. Mild age-related involutional changes. Encephalomalacia of the periventricular right frontal and parietal lobes redemonstrated compatible with remote infarcts redemonstrated. Mild patchy white matter hypodensities suggest chronic microvascular ischemic disease. The calvarium is intact. The paranasal sinuses, mastoid air cells, and middle ear cavities are clear. IMPRESSION: 1. No acute intracranial abnormality. 2. 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 The above report was generated using voice recognition software. It may contain grammatical, syntax or spelling errors. Electronically signed by: Khoa Trevizo M.D. 05/21/2019 1:33 PM XR chest 1V portable HISTORY: 54 years-old Male chest pain . Acute atypical chest pain COMPARISON: Chest radiograph 04/07/2019 TECHNIQUE: Portable AP view of the chest FINDINGS: Cardiac mediastinal and hilar silhouettes are unchanged. No pneumothorax, pleural effusion or overt pulmonary edema. Ill-defined opacities of the right lung base are likely projectional with summation density. Mild convex left curvature of the thoracic spine with degenerative changes of the shoulders and spine. IMPRESSION: No acute process. The above report was generated using voice recognition software. It may contain grammatical, syntax or spelling errors. Electronically signed by: Khoa Trevizo M.D. 05/21/2019 2:12 PM ECG Data Attestation: I personally reviewed and interpreted this ECG as follows: Indication: + chest pain Rate (beats per minute): 99 Rhythm: + sinus rhythm ECG Intervals/blocks: + Right Bundle branch block (appearance of), + Normal QRS, + Normal QT and + Normal NC ECG [place]: + Normal ECG ST segments: no ST depression and no ST elevation Blood Pressure Blood Pressure Findings: Elevated blood pressure Blood Pressure Disposition: Referred to patients primary care provider REBECCA Narrative Pt here with atypical presentation for both cva and chest pain. Pt pain free and felt RUE sx improving while here. VS stable. CT negative, CTA chest/abd/pel negative for acute vascular phenomenon. Pt afebrile, no infectious etiology noted. Pt with risk factors for both CVA and ACS. Prior deficits from prior CVA makes performing neuro assessment and NIH scoring difficult. However, new symptoms are minimal and given coumadin use, pt not a tPA candidate. [place] did not feel pt a candidate for any other intervention at this time given likelihood of alternative diagnosis in addition to anticoagulant use. Pt kept aware of all results. Case discussed with hospitalist for additional evaluation and treament. Impression & Plan Chest pain, Tobacco abuse, Arm paresthesia, right, Weakness of right arm, Hypertension, HIV (human immunodeficiency virus infection) Discharge Plan Visit Data *Final* Discharge Date/Time: 05/21/19 18:21 Chief Complaint: Stroke Alert Stated Complaint: stroke alert ED Provider: Madelaine Day Discharge Problem: Chest pain, Tobacco abuse, Arm paresthesia, right, Weakness of right arm, Hypertension, HIV (human immunodeficiency virus infection) Patient Disposition: Admitted As Inpatient Discharge Instructions Interventions: ED Discharge Assessment Last Done: 05/21/19 18:21 Discharge Problem: Chest pain Qualifiers: Chest pain type: unspecified Qualified Code(s): R07.9 - Chest pain, unspecified Hypertension Qualifiers: Hypertension type: essential hypertension Qualified Code(s): I10 - Essential (primary) hypertension HIV (human immunodeficiency virus infection) Qualifiers: HIV symptom status: unspecified Qualified Code(s): B20 - Human immunodeficiency virus [HIV] disease The scribe's documentation has been prepared under my direction and personally reviewed by me in its entirety. I confirm that the note above accurately reflects all work, treatment, procedures, and medical decision making performed by me.
[2019-05-21] MEDS ORDERED: NITROGLYCERIN 2% OINTMENT 30GM TUBE EXT STA (16:15)
[2019-05-21] MEDS ORDERED: ACETAMINOPHEN 1,000 MG/100 ML VIAL IV STA (16:15)
[2019-05-21] MEDS ORDERED: FAMOTIDINE 20MG IV PUSH 20 MG/5 ML SYR IV STA (16:15)
--- NOTE | 2019-05-21 17:15 | History & Physical Report ---
Date of Service May 21, 2019 Assessment & Plan (1) Stroke-like symptoms: RUE weakness and R hand paresthesia reported. CT head negative and other possibilities exist to explain the symptoms including recent initiation of zapelon for sleep. Will hold this now. MRI brain ordered. Angiography performed earlier this year revealing known occlusion R ICA with a known L temporal lobe AVM. Will not repeat this now. Also recent echo performed December 2018 reveals no ASD or valvular disease and normal EF. Neuro consulted to evaluate further. Ordered lipitor 40mg now and will continue home aspirin and coumadin. (2) Chest pain: uncertain etiology, risk factors for CAD include smoking and known PVD. Initial troponin is negative and EKG does not reveal evidence of acute ischemia. Trend serial troponins. Pain control efforts PRN. (3) Pulmonary embolism: h/o PE-cont coumadin. Daily INR (4) Tobacco abuse: Advised to quit. Nicoderm patch. (5) HIV disease: Followed by Dr. Blount. Small elevation in viral load at last check wt CD4 in the 600s. As it has been >6 months will recheck again now. (6) Chronic pain syndrome: Severe Neuropathy as main issues. Cont Cymbalta, gabapentin, marinol, oxycodone (7) Carotid artery stenosis: Cont ASA per home regimen. Would suggest statin which he reports he is not taking at home. This is important in setting of PVD and h/o stroke for secondary prophylaxis. Lipitor 40mg ordered. (8) COPD (chronic obstructive pulmonary disease): chronic, stable. Cont home inhalers. (9) Depression: Cont Cymbalta recently started. (10) DVT prophylaxis: coumadin Full Dispo-to telemetry. Plan for home when medically stable. Sherrie Manley DO [facility] Hospitalist History of Present Illness Chief Complaint: chest pain/hand numbness/RUE weakness since this am Primary Care Provider: Alexandr Elder DO 54 yo M with h/o CVA presents with recent onset of left anterior wall chest pain when stepping out of the shower this morning. The pain is persistent and without radiation or associated symptoms such as nausea, lightheadedness or shortness of breath. He subsequently developed hand numbness as if "my hand fell asleep" involving all fingertips on the right hand with numbness spreading up the arm originating in the hand and moving proximally but not past the elbow. He has recently started Zaleplon for insomnia in early Apr and states that this has been effective for his sleeping needs. A common side effect of this medication is paresthesias, however. He reports his HIV is stable and denies any new medications outside of marinol that he takes, given to him by his ID physician. He has severe neuropathy in his feet and lower legs that is stable. He also has some baseline residual stroke deficits including left sided facial droop and left hemiparesis. He is essentially wheelchair bound with his helping him with transfers at home. He does smoke 1/2 pack to 1 ppd and is a recovering alcoholic who denies using marijuana or other illicit drugs. ROS otherwise reveals diarrhea with a once daily thick pasty stool, denies abdominal pain and is eating. He reports a headache on the crown of his head for which he has taken Ibuprofen over the past 2-3 days. He reports a h/o migraines but states this is not a migraine. He reports feeling feverish last week which has resolved completely and denies URI symptoms such as cough, fever or chills. He states his was sick with pneumonia and the flu. Other than the zapelon, the only other change in medications has been his antidepressants, starting cymbalta recently. Allergies Allergy/AdvReac Type Severity Reaction Status Date / Time Penicillins Allergy Severe ANAPHYLAXIS Verified 05/21/19 13:30 niacin Allergy Intermediate RASH Verified 05/21/19 13:30 Sulfa (Sulfonamide Allergy Intermediate "ITCHY Verified 05/21/19 13:30 Antibiotics) RASH" tramadol Allergy Mild RASH Verified 05/21/19 13:30 azithromycin Allergy Unknown Verified 05/21/19 13:30 meloxicam AdvReac Intermediate GI SYMPTOMS Verified 05/21/19 13:30 shellfish derived AdvReac Intermediate gi symptoms Verified 05/21/19 13:30 topiramate AdvReac Intermediate NAUSEA Verified 05/21/19 13:30 Home Medications Home Medications Medication Instructions Recorded Confirmed Type Symbicort 2 puff INHALATION Q12H 06/08/18 05/21/19 History aspirin 81 mg PO QAM 06/08/18 05/21/19 History dronabinol [Marinol] 10 mg PO QAM 06/08/18 05/21/19 History fluoxetine [Prozac] 40 mg PO QAM 06/08/18 05/21/19 History fluticasone propionate [Flonase 2 spray INTRANASAL QAM 06/08/18 05/21/19 History Allergy Relief] folic acid 1 mg PO QAM 06/08/18 05/21/19 History furosemide [Lasix] 20 mg PO QAM PRN 06/08/18 05/21/19 History gabapentin 800 mg PO TID 08/25/18 05/21/19 History ipratropium-albuterol 3 ml INHALATION Q4H PRN 10/04/18 05/21/19 History omeprazole 20 mg PO QAM 10/04/18 05/21/19 History ferrous sulfate 325 mg PO Q OTHER DAY 10/24/18 05/21/19 History levetiracetam [Keppra] 1,000 mg PO BID 10/24/18 05/21/19 History albuterol sulfate [Ventolin HFA] 2 puff INHALATION BID PRN 11/14/18 05/21/19 History amlodipine 5 mg PO QAM 11/14/18 05/21/19 History ondansetron 4 mg PO Q8H PRN 11/14/18 05/21/19 History Florastor 250 mg PO BID #20 cap 11/15/18 05/21/19 Rx darunavir ethanolate 600 mg tablet 600 mg PO BIDM #180 tab 02/09/19 05/21/19 Rx raltegravir 400 mg tablet 400 mg PO BID #180 tab 02/09/19 05/21/19 Rx ritonavir 100 mg tablet 100 mg PO BID #180 tab 02/09/19 05/21/19 Rx metoprolol succinate 50 mg PO DAILY 04/07/19 05/21/19 History oxycodone 5 mg PO Q6H PRN 04/07/19 05/21/19 History warfarin [Jantoven] 5 mg PO DAILY 04/07/19 05/21/19 History Past Med/Surg History Medical History Anal dysplasia (Chronic) Anxiety (Chronic) AVM (arteriovenous malformation) brain (Chronic) Carotid artery stenosis (Chronic) Complete R ICA occlusion, L 50-59% Carotid stenosis (Chronic) "03/06/15-SAÚL occlusion, LICA with 50-59% stenosis" Chronic pain syndrome (Chronic) COPD (chronic obstructive pulmonary disease) (Chronic) Depression (Chronic) DVT (deep venous thrombosis) (Chronic) Dyslipidemia (Chronic) History of alcohol abuse (Chronic) History of CVA (cerebrovascular accident) (Chronic) "in setting of right carotid artery thrombosis" HIV (human immunodeficiency virus infection) (Chronic) Hypertension (Chronic) Migraine (Chronic) Neuropathic pain of both feet (Chronic) Polyp of colon (Chronic 12/21/12) Rib fracture (Resolved) Tobacco abuse (Chronic) Tobacco abuse (Chronic) Surgical History History of anal lesion (Chronic) History of colonoscopy (Chronic) Family History Father Lung cancer Mother Hypertension Social History Preferred Language: Syriac Communication Ability: Effective Stock Wetter Required: No Beliefs That Will Affect Care: None marital status: Current Living Situation: Significant Other Other Information That Helps Us Care for You: No Feels Safe at Home: Yes Safety Concerns: Feels Safe At This Time Smoking Status: Current every day smoker Tobacco Type: cigarettes ; Cigarettes Per Day: 10 ; Second Hand Exposure: No ; Hx Alcohol Use: No Hx Substance Use: No Review of Systems Review of Systems: All systems reviewed & are unremarkable except as noted in HPI & below Physical Exam Physical Exam: CONSTITUTIONAL: WNWD, vitals as above, generally well- appearing EYES: EOMI bilaterally, PERRL, normal conjunctivae, no scleral icterus ENT: MMM NECK: trachea midline RESPIRATORY: clear to auscultation bilaterally, no crackles, rales or wheezes, normal respiratory effort CARDIOVASCULAR: regular rate and rhythm, S1 and 2 heard without murmurs, g allops or rubs, no JVD, no peripheral edema CHEST: inspection of chest was normal GASTROINTESTINAL: normal bowel sounds, soft, nontender, nondistended MUSCULOSKELETAL: strength 5/5 on the right side throughout, pottery 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 Left side is 3/5 with difficulty maneuvering LUE in general and difficulty forming a fist with left hand. Head is normocephalic and atraumatic SKIN: warm and dry NEUROLOGIC: patellar DTR 2+ bilat. PERRL, EOMI, left facial palsy, no dysarthria. CN 2-12 grossly intact otherwise, no sensory deficit, normal cognition, normal speech, no tremor. PSYCHIATRIC: alert cooperative and oriented to person, place and time. Results & Data Vital Signs (Past 12 Hours) Vital Signs Temp Pulse Pulse Resp BP BP Pulse Ox 05/21/19 16:52 84 15 152/88 H 99 05/21/19 15:44 78 17 150/92 H 93 05/21/19 15:20 80 17 98 05/21/19 15:18 82 18 161/87 H 99 05/21/19 14:50 87 97 05/21/19 14:41 91 H 16 137/77 96 05/21/19 14:40 96 H 98 05/21/19 14:30 93 H 137/77 05/21/19 14:20 102 H 100 05/21/19 14:15 88 125/86 97 05/21/19 14:10 92 H 96 05/21/19 14:05 90 16 146/90 H 97 05/21/19 14:00 94 H 146/90 H 96 05/21/19 13:50 91 H 97 05/21/19 13:45 91 H 160/96 H 97 05/21/19 13:41 93 H 92 H 18 135/92 135/92 97 05/21/19 13:40 92 H 05/21/19 13:30 94 H 97 05/21/19 13:29 96 H 108/89 96 05/21/19 13:23 108 H 05/21/19 13:15 36.7 C 101 H 16 108/89 97 Laboratory Results Short CBC 05/21/19 05/21/19 05/21/19 Range/Units 13:27 13:32 13:39 WBC (4.8-10.8) K/uL RBC (4.7-6.1) M/uL Hgb (14.0-18.0) g/dL POC Hgb 13.9 L (14.0-18.0) g/dl Hct (42-52) % POC Hct 41 L (42-52) % MCV (80-100) fL MCH (25-34) pg MCHC (32-36) g/dL RDW Std Deviation (36.4-46.3) fL RDW Coeff of Tanesha (11.5-14.5) % Plt Count (130-400) K/uL MPV (7.4-10.4) fL Immature Gran % (Auto) % Neut % (Auto) % Lymph % (Auto) % Rankin % (Auto) % Eos % (Auto) % Baso % (Auto) % Immature Gran # (Auto) (0.00-0.02) K/uL Neut # (Auto) (1.4-6.5) K/uL Lymph # (Auto) (1.2-3.4) K/uL Rankin # (Auto) (0.11-0.59) K/uL Eos # (Auto) (0-0.5) K/uL Baso # (Auto) (0-0.2) K/uL PT (9.0-12.0) Seconds POC INR 1.9 H (0.9-1.1) INR (0.9-1.1) APTT (21.0-31.0) Seconds PTT Ratio POC Sodium 137 (135-144) mEq/L Sodium (136-145) mmol/L POC Potassium 3.9 (3.3-5.0) mEq/L Potassium (3.5-5.1) mmol/L POC Chloride 102 (101-112) mEq/L Chloride (98-107) mmol/L Carbon Dioxide (21-32) mmol/L POC Total CO2 28 (24-31) mEq/l Anion Gap (3-11) POC Anion Gap 12.0 L (16-25) mmol/L POC BUN 7 (7-18) mg/dl BUN (7-18) mg/dl Creatinine (0.6-1.4) mg/dl POC Creatinine 0.9 (0.6-1.3) mg/dl Est Cr Clr Drug Dosing ml/min Est GFR ( Amer) Est GFR (Non-Af Amer) BUN/Creatinine Ratio (10-20) Glucose (70-99) mg/dl POC Glucose 91 (70-99) POC Glucose (other) 89 (70-99) mg/dl Calcium (8.5-10.1) mg/dl POC Ioniz Calcium Froilan 1.15 (1.12-1.32) mmol/l Magnesium (1.8-2.4) mg/dl Total Bilirubin (0.2-1) mg/dl AST (15-37) U/L ALT (12-78) U/L Alkaline Phosphatase (45-117) U/L Troponin I (0-0.045) ng/ml NT-Pro-B Natriuret Pep (0-900) pg/ml Total Protein (6.4-8.2) gm/dl Albumin (3.4-5.0) gm/dl Globulin (2.5-4.0) gm/dl Albumin/Globulin Ratio (0.9-2) Lipase (73-393) U/L Blood Type Antibody Screen 05/21/19 05/21/19 05/21/19 Range/Units 13:40 13:40 13:40 WBC 9.33 (4.8-10.8) K/uL RBC 4.88 (4.7-6.1) M/uL Hgb 13.6 L (14.0-18.0) g/dL POC Hgb (14.0-18.0) g/dl Hct 40.6 L (42-52) % POC Hct (42-52) % MCV 83.2 (80-100) fL MCH 27.9 (25-34) pg MCHC 33.5 (32-36) g/dL RDW Std Deviation 41.6 (36.4-46.3) fL RDW Coeff of Tanesha 13.7 (11.5-14.5) % Plt Count 327 (130-400) K/uL MPV 9.6 (7.4-10.4) fL Immature Gran % (Auto) 0.3 % Neut % (Auto) 68.0 % Lymph % (Auto) 21.5 % Rankin % (Auto) 7.1 % Eos % (Auto) 2.0 % Baso % (Auto) 1.1 % Immature Gran # (Auto) 0.03 H (0.00-0.02) K/uL Neut # (Auto) 6.34 (1.4-6.5) K/uL Lymph # (Auto) 2.01 (1.2-3.4) K/uL Rankin # (Auto) 0.66 H (0.11-0.59) K/uL Eos # (Auto) 0.19 (0-0.5) K/uL Baso # (Auto) 0.10 (0-0.2) K/uL PT 15.7 H (9.0-12.0) Seconds POC INR (0.9-1.1) INR 1.6 H (0.9-1.1) APTT 28.5 (21.0-31.0) Seconds PTT Ratio 1.1 POC Sodium (135-144) mEq/L Sodium 138 (136-145) mmol/L POC Potassium (3.3-5.0) mEq/L Potassium 3.9 (3.5-5.1) mmol/L POC Chloride (101-112) mEq/L Chloride 103 (98-107) mmol/L Carbon Dioxide 28 (21-32) mmol/L POC Total CO2 (24-31) mEq/l Anion Gap 7.0 (3-11) POC Anion Gap (16-25) mmol/L POC BUN (7-18) mg/dl BUN 8 (7-18) mg/dl Creatinine 1.00 (0.6-1.4) mg/dl POC Creatinine (0.6-1.3) mg/dl Est Cr Clr Drug Dosing 91.6 ml/min Est GFR ( Amer) 97.8 Est GFR (Non-Af Amer) 84.4 BUN/Creatinine Ratio 8.4 L (10-20) Glucose 90 (70-99) mg/dl POC Glucose (70-99) POC Glucose (other) (70-99) mg/dl Calcium 9.1 (8.5-10.1) mg/dl POC Ioniz Calcium Froilan (1.12-1.32) mmol/l Magnesium 2.5 H (1.8-2.4) mg/dl Total Bilirubin 0.3 (0.2-1) mg/dl AST 30 (15-37) U/L ALT 26 (12-78) U/L Alkaline Phosphatase 122 H (45-117) U/L Troponin I < 0.015 (0-0.045) ng/ml NT-Pro-B Natriuret Pep 53 (0-900) pg/ml Total Protein 7.3 (6.4-8.2) gm/dl Albumin 3.9 (3.4-5.0) gm/dl Globulin 3.4 (2.5-4.0) gm/dl Albumin/Globulin Ratio 1.2 (0.9-2) Lipase 226 (73-393) U/L Blood Type Antibody Screen 05/21/19 Range/Units 13:40 WBC (4.8-10.8) K/uL RBC (4.7-6.1) M/uL Hgb (14.0-18.0) g/dL POC Hgb (14.0-18.0) g/dl Hct (42-52) % POC Hct (42-52) % MCV (80-100) fL MCH (25-34) pg MCHC (32-36) g/dL RDW Std Deviation (36.4-46.3) fL RDW Coeff of Tanesha (11.5-14.5) % Plt Count (130-400) K/uL MPV (7.4-10.4) fL Immature Gran % (Auto) % Neut % (Auto) % Lymph % (Auto) % Rankin % (Auto) % Eos % (Auto) % Baso % (Auto) % Immature Gran # (Auto) (0.00-0.02) K/uL Neut # (Auto) (1.4-6.5) K/uL Lymph # (Auto) (1.2-3.4) K/uL Rankin # (Auto) (0.11-0.59) K/uL Eos # (Auto) (0-0.5) K/uL Baso # (Auto) (0-0.2) K/uL PT (9.0-12.0) Seconds POC INR (0.9-1.1) INR (0.9-1.1) APTT (21.0-31.0) Seconds PTT Ratio POC Sodium (135-144) mEq/L Sodium (136-145) mmol/L POC Potassium (3.3-5.0) mEq/L Potassium (3.5-5.1) mmol/L POC Chloride (101-112) mEq/L Chloride (98-107) mmol/L Carbon Dioxide (21-32) mmol/L POC Total CO2 (24-31) mEq/l Anion Gap (3-11) POC Anion Gap (16-25) mmol/L POC BUN (7-18) mg/dl BUN (7-18) mg/dl Creatinine (0.6-1.4) mg/dl POC Creatinine (0.6-1.3) mg/dl Est Cr Clr Drug Dosing ml/min Est GFR ( Amer) Est GFR (Non-Af Amer) BUN/Creatinine Ratio (10-20) Glucose (70-99) mg/dl POC Glucose (70-99) POC Glucose (other) (70-99) mg/dl Calcium (8.5-10.1) mg/dl POC Ioniz Calcium Froilan (1.12-1.32) mmol/l Magnesium (1.8-2.4) mg/dl Total Bilirubin (0.2-1) mg/dl AST (15-37) U/L ALT (12-78) U/L Alkaline Phosphatase (45-117) U/L Troponin I (0-0.045) ng/ml NT-Pro-B Natriuret Pep (0-900) pg/ml Total Protein (6.4-8.2) gm/dl Albumin (3.4-5.0) gm/dl Globulin (2.5-4.0) gm/dl Albumin/Globulin Ratio (0.9-2) Lipase (73-393) U/L Blood Type A Positive Antibody Screen NEGATIVE BMP 05/21/19 13:40 Sodium 138 Potassium 3.9 Chloride 103 Carbon Dioxide 28 BUN 8 Creatinine 1.00 Glucose 90 Calcium 9.1 Cardiac Enzymes 05/21/19 Range/Units 13:40 Troponin I < 0.015 (0-0.045) ng/ml Liver Function 05/21/19 Range/Units 13:40 Total Bilirubin 0.3 (0.2-1) mg/dl AST 30 (15-37) U/L ALT 26 (12-78) U/L Alkaline Phosphatase 122 H (45-117) U/L Albumin 3.9 (3.4-5.0) gm/dl Diagnostic Findings CHEST CTA for AORTIC DISSECTION, ABDOMEN AND PELVIS CTA FINDINGS: Chest CTA: Noncontrast imaging through the chest shows no evidence for an intramural hematoma within the thoracic aorta. Normal caliber thoracic aorta with no evidence for dissection. The central pulmonary arteries remain patent. Normal esophagus. No mediastinal or hilar lymphadenopathy. No pleural or pericardial effusions. The heart is normal in size. No acute rib fractures. No pneumothorax. The central airways are patent. No focal lung consolidations to suggest pneumonia. Abdomen/pelvis CTA: No pneumoperitoneum. No pneumatosis. Patchy sclerotic areas within the femoral heads consistent with avascular necrosis. This is similar to the prior study. No suspicious lytic or blastic osseous lesions. Stable 1 cm hypodense lesion within the right hepatic lobe. This favors a cyst. Progressive hepatic steatosis. The spleen, adrenal glands, gallbladder, pancreas, and right kidney are unremarkable. There is a 3 mm hypodense lesion within the left kidney. This is technically too small to characterize but statistically represents a cyst. Contrast within the bilateral renal collecting systems is noted. No hydronephrosis. No retroperitoneal lymphadenopathy. The bladder is dis tended. No bladder wall thickening. No pelvic free fluid. Colonic diverticulosis. No evidence for diverticulitis. No bowel wall thickening or obstruction. Moderate stool within the proximal colon. Normal appendix. No bowel wall thickening or obstruction. The mesenteric and renal arteries are patent. Atherosclerotic plaque seen within the ectatic abdominal aorta. The abdominal aorta measures up to 2.8 cm in diameter. 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 Both lumens opacify. Moderate stenosis of approximately 60% at the distal left common iliac artery. Up to 50% narrowing within the left external iliac artery and up to 80% focal narrowing within the proximal left superficial femoral artery. Scattered areas of 50% narrowing within the right common iliac artery, external iliac artery, and superficial femoral artery. This is due to the atherosclerotic plaque. Small focal penetrating ulcer seen within the abdominal aorta posteriorly on image 157. This measures 7 mm and remains unchanged. IMPRESSION: 1. No evidence for aortic dissection. 2. Multifocal stenosis within the bilateral iliac and femoral arteries as described above. This remains unchanged. 3. 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 Both lumens opacify. 4. Progressive hepatic steatosis. 5. Additional findings as described above. XR chest 1V portable FINDINGS: Cardiac mediastinal and hilar silhouettes are unchanged. No pneumothorax, pleural effusion or overt pulmonary edema. Ill-defined opacities of the right lung base are likely projectional with summation density. Mild convex left curvature of the thoracic spine with degenerative changes of the shoulders and spine. IMPRESSION: No acute process. --- CT head/brain wo con FINDINGS: No acute intracranial hemorrhage, midline shift, intracranial mass, hydrocephalus, territorial ischemia or abnormal extra-axial collection. Mild age-related involutional changes. Encephalomalacia of the periventricular right frontal and parietal lobes redemonstrated compatible with remote infarcts redemonstrated. Mild patchy white matter hypodensities suggest chronic microvascular ischemic disease. The calvarium is intact. The paranasal sinuses, mastoid air cells, and middle ear cavities are clear. IMPRESSION: 1. No acute intracranial abnormality. 2. 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 Code Status & VTE Plan VTE Prophylaxis Plan VTE Prophylaxis will be ordered: Yes (1) Chest pain Chest pain type: unspecified Qualified Code(s): R07.9 - Chest pain, unspecified
[2019-05-21] MEDS ORDERED: ALBUTEROL HFA 8 GM INHALER INH PRN (17:36)
[2019-05-21] MEDS ORDERED: ALBUT/IPRATROP 3MG/0.5MG NEB 3 ML VIAL INH PRN (17:36)
[2019-05-21] MEDS ORDERED: PHARMACIST DISCHARGE MED REC CONSULT PRN (18:38)
[2019-05-21] MEDS: OXYCODONE HCL IR 5 MG TAB (IMMEDIATE RELEASE) PO PRN (19:05)
[2019-05-21] MEDS: NICOTINE 21 MG/24 HR TDSY TD SCH (19:56)
[2019-05-21] MEDS: BUDESONIDE/FORMOTEROL FUMARATE 160/4.5 60 PUFFS/INHALER INH SCH (19:57)
[2019-05-21] MEDS: levETIRAcetam 500 MG TAB PO SCH (19:58)
[2019-05-21] MEDS: RALTEGRAVIR POTASSIUM 400 MG TAB PO SCH (19:58)
[2019-05-21] MEDS: RITONAVIR 100 MG TAB PO SCH (19:59)
[2019-05-21] MEDS: SACCHAROMYCES BOULARDII 250 MG CAP PO SCH (20:00)
[2019-05-21] MEDS: GABAPENTIN 800 MG TAB PO SCH (20:01)
[2019-05-21] MEDS: ATORVASTATIN 20 MG TAB PO SCH (21:16)
[2019-05-22 02:17] LABS: Amphetamines+Metham, Urine Neg (Neg); Barbiturates, Urine Neg (Neg); Benzodiazepine, Urine Neg (Neg); Cocaine, Urine Neg (Neg); MDMA (Ecstacy), Urine Neg (Neg); Methadone, Urine Neg (Neg); Opiate, Urine Neg (Neg); Phencyclidine, Urine Neg (Neg)
[2019-05-22] MEDS: OXYCODONE HCL IR 5 MG TAB (IMMEDIATE RELEASE) PO PRN ×3 (05:04→17:40)
[2019-05-22 07:06] LABS: Basophils # (auto) 0.05 K/uL (0-0.2); Basophils % (auto) 0.8 %; Eosinophils # (auto) 0.12 K/uL (0-0.5); Eosinophils % (auto) 1.9 %; Hematocrit (blood only) 36.4 % (42-52); Hemoglobin 11.9 g/dL (14.0-18.0); Immature Granulocytes # (auto) 0.01 K/uL (0.00-0.02); Immature Granulocytes % (auto) 0.2 %; Lymphocytes # (auto) 2.11 K/uL (1.2-3.4); Mean Corpuscular Hemoglobin 26.8 pg (25-34); Mean Corpuscular Hgb Conc 32.7 g/dL (32-36); Mean Platelet Volume 9.4 fL (7.4-10.4); Monocytes # (auto) 0.55 K/uL (0.11-0.59); Monocytes % (auto) 8.6 %; Neutrophils # (auto) 3.56 K/uL (1.4-6.5); Neutrophils % (auto) 55.5 %; Platelet Count 282 K/uL (130-400); RDW Coefficient of Variation 13.9 % (11.5-14.5); Red Blood Count 4.44 M/uL (4.7-6.1)
[2019-05-22 07:15] LABS: INR 1.9 (0.9-1.1); Prothrombin Time 18.3 Seconds (9.0-12.0)
[2019-05-22 07:43] LABS: BUN Creatinine Ratio 9.1 (10-20); Calcium 9.2 mg/dl (8.5-10.1); Creatinine Clr Calc Pharmacy 104.1 ml/min; Est GFR (African American) 112.1; Est GFR (Non-African American) 96.7
--- NOTE | 2019-05-22 07:52 | Magnetic Resonance Report ---
MRI OF THE BRAIN WITHOUT CONTRAST CLINICAL HISTORY: Right upper extremity weakness and tingling. COMPARISON STUDY: MRI of the brain December 17, 2018. Head CT May 21, 2019. TECHNIQUE: Utilizing a 1.5 Joann magnet and dedicated coil, multiplanar, multiecho imaging of the bra in was performed without IV contrast. FINDINGS: There are no foci of restricted diffusion to suggest acute infarct. No acute intracranial, midline shift or mass effect is present. The appearance of the brain is similar to MRI of December 17 9. Old infarcts within the right cerebral hemisphere are again noted. Ventricular system is stable. M oderate to marked atrophy is again noted. The basilar cisterns are patent. There are no extra axial c ollections. White matter T2 hyperintense foci suggest small vessel disease. No intracranial masses id entified on this unenhanced exam. There are mucous retention cysts within the bilateral maxillary sin uses. IMPRESSION: 1. No acute intracranial findings. 2. No change in appearance of the brain since MRI of December 17, 2018 with multiple old infarcts within t he right cerebral hemisphere. Electronically signed by: Gabo Moore M.D. 05/22/2019 7:51 AM
[2019-05-22 08:09] LABS: Estimated Average Glucose 134 mg/dl; Hemoglobin A1C 6.3 % (4.5-5.6)
[2019-05-22] MEDS: DARUNAVIR ETHANOLATE 600 MG TAB PO SCH ×2 (08:24→16:55)
[2019-05-22] MEDS: RITONAVIR 100 MG TAB PO SCH ×2 (08:24→21:34)
[2019-05-22] MEDS: RALTEGRAVIR POTASSIUM 400 MG TAB PO SCH ×2 (08:24→21:34)
[2019-05-22] MEDS: METOPROLOL SUCC 50MG EXT REL TAB PO SCH (08:25)
[2019-05-22] MEDS: PANTOprazole 40 MG TAB PO SCH (08:25)
[2019-05-22] MEDS: FOLIC ACID 1 MG TAB PO SCH (08:25)
[2019-05-22] MEDS: FERROUS SULFATE 325 MG TAB PO SCH (08:25)
[2019-05-22] MEDS: GABAPENTIN 800 MG TAB PO SCH ×3 (08:25→21:36)
[2019-05-22] MEDS: SACCHAROMYCES BOULARDII 250 MG CAP PO SCH ×2 (08:25→21:35)
[2019-05-22] MEDS: ASPIRIN 81 MG ECTAB PO SCH (08:25)
[2019-05-22] MEDS: BUDESONIDE/FORMOTEROL FUMARATE 160/4.5 60 PUFFS/INHALER INH SCH ×2 (08:26→21:36)
[2019-05-22] MEDS: levETIRAcetam 500 MG TAB PO SCH ×2 (08:26→21:35)
[2019-05-22] MEDS: NICOTINE 21 MG/24 HR TDSY TD SCH (08:26)
[2019-05-22] MEDS ORDERED: DRONABINOL 10 MG PO SCH (09:00)
--- NOTE | 2019-05-22 14:13 | Neurology Consultation ---
Date of Consultation May 22, 2019 Assessment & Plan (1) Stroke-like symptoms: 1. MRI -no new stroke 2. right arm paraesthsia may need imaging of neck 3. EMG as out patient may be helpful for direction of care 4. optimize HTN, HLD, DM LDL <70 5. CTA head/neck ? evaluation of vascular system- done in 08/2018 no need to repeat 6. coumadin will likely be for life due to HIV status-optimize 2.0-3.0 7. continue aspirin [address] c spine for any structural issues causing right parathesias (2) Arm paresthesia, right: as above Supervising Physician Co-Signing Physician Notes I have seen and discussed above patient with Dr Stiven Mcgarry, neurology I saw Mr. Higgins today, examined him, reviewed his case and images and discussed the above note with Wen Acharya PA-C. Currently this man is improving his headache seems to be gone but he still has paresthesias involving the entirety of the right hand with very little neck pain and no further left sided chest pain Imaging has shown no evidence for new CVA involving left hemisphere have nothing on prior and very recent carotid angiographic studies to indicate a significant lesion involving the left internal carotid or intracranial circulation but we do on examination have evidence for a positive Spurling's sign with reproduction of pain in the right shoulder arm and increased paresthesias in the right hand which could suggest the presence of a right C6-7 sensory radiculopathy and could not weakly support the presence of left-sided chest pain on the basis of cervical discogenic disease. Frankly I think this is a bit of a stretch diagnostically but see no harm in proceeding with an MRI of the cervical spine to define the anatomy and if sensory symptoms persist then perhaps an outpatient EMG would be in order searching for a carpal tunnel syndrome or other explanation of the hand paresthesias that is explainable on the basis of his MRI or frankly with history We will check back tomorrow to go over the MRI and make further recommendations Stiven Mcgarry MD History of Present Illness Reason for Consultation: h/o CVA new RUE weakness Requesting Physician: Yobani Zarate MD Attending Physician: Yobani Zarate MD History of Present Illness Dion is a 54 year old male with PMH CVA presents with recent onset of left anterior wall chest pain when stepping out of the shower this morning. The pain is persistent and without radiation or associated symptoms such as nausea, lightheadedness or shortness of breath. He then developed hand numbness as if "my hand fell asleep" involving all fingertips on the right hand with numbness spreading up the arm originating in the hand and moving proximally but not past the elbow. He has recently started Zaleplon for insomnia in early Apr and states that this has been effective for his sleeping needs but does have a side effect of paraesthesias. He reports his HIV is stable and denies slipping or missing any medications. He has severe neuropathy in his feet and lower legs that is stable. He also has some baseline residual stroke deficits including left sided facial droop and left hemiparesis. He is essentially wheelchair bound with his helping him with transfers at home. He does smoke 1/2 pack to 1 ppd and is a recovering alcoholic who denies using marijuana or other illicit drugs. He reports a headache on the crown of his head for which he has taken Ibuprofen over the past 2-3 days. He reports a h/o migraines but states this is not a migraine. He states his was sick with pneumonia and the flu. denies CP, SOB, abdominal pain neck pain, right UE weakness, slurred speech, swallowing issues, N, V.+numbness,tingling right arm Allergies Allergy/AdvReac Type Severity Reaction Status Date / Time Penicillins Allergy Severe ANAPHYLAXIS Verified 05/21/19 13:30 niacin Allergy Intermediate RASH Verified 05/21/19 13:30 Sulfa (Sulfonamide Allergy Intermediate "ITCHY Verified 05/21/19 13:30 Antibiotics) RASH" tramadol Allergy Mild RASH Verified 05/21/19 13:30 azithromycin Allergy Unknown Verified 05/21/19 13:30 meloxicam AdvReac Intermediate GI SYMPTOMS Verified 05/21/19 13:30 shellfish derived AdvReac Intermediate gi symptoms Verified 05/21/19 13:30 topiramate AdvReac Intermediate NAUSEA Verified 05/21/19 13:30 Home Medications Home Medications Medication Instructions Recorded Confirmed Type Symbicort 2 puff INHALATION Q12H 06/08/18 05/21/19 History aspirin 81 mg PO QAM 06/08/18 05/21/19 History dronabinol [Marinol] 10 mg PO QAM 06/08/18 05/21/19 History fluoxetine [Prozac] 40 mg PO QAM 06/08/18 05/21/19 History fluticasone propionate [Flonase 2 spray INTRANASAL QAM PRN 06/08/18 05/21/19 History Allergy Relief] folic acid 1 mg PO QAM 06/08/18 05/21/19 History furosemide [Lasix] 20 mg PO QAM PRN 06/08/18 05/21/19 History gabapentin 800 mg PO TID 08/25/18 05/21/19 History ipratropium-albuterol 3 ml INHALATION Q4H PRN 10/04/18 05/21/19 History omeprazole 20 mg PO QAM 10/04/18 05/21/19 History ferrous sulfate 325 mg PO Q OTHER DAY 10/24/18 05/21/19 History levetiracetam [Keppra] 1,000 mg PO BID 10/24/18 05/21/19 History albuterol sulfate [Ventolin HFA] 2 puff INHALATION BID PRN 11/14/18 05/21/19 History amlodipine 5 mg PO QAM 11/14/18 05/21/19 History ondansetron 4 mg PO Q8H PRN 11/14/18 05/21/19 History Florastor 250 mg PO BID #20 cap 11/15/18 05/21/19 Rx darunavir ethanolate 600 mg tablet 600 mg PO BIDM #180 tab 02/09/19 05/21/19 Rx raltegravir 400 mg tablet 400 mg PO BID #180 tab 02/09/19 05/21/19 Rx ritonavir 100 mg tablet 100 mg PO BID #180 tab 02/09/19 05/21/19 Rx metoprolol succinate 50 mg PO DAILY 04/07/19 05/21/19 History oxycodone 5 mg PO Q6H PRN 04/07/19 05/21/19 History warfarin [Jantoven] 5 mg PO DAILY 04/07/19 05/21/19 History duloxetine 60 mg PO DAILY 05/21/19 05/21/19 History Patient History Medical History (Updated 05/21/19 @ 17:58 by Sherrie Manley DO) Anal dysplasia (Chronic) Anxiety (Chronic) AVM (arteriovenous malformation) brain (Chronic) Carotid artery stenosis (Chronic) Complete R ICA occlusion, L 50-59% Carotid stenosis (Chronic) "03/06/15-SAÚL occlusion, LICA with 50-59% stenosis" Chronic pain syndrome (Chronic) COPD (chronic obstructive pulmonary disease) (Chronic) COPD (chronic obstructive pulmonary disease) Depression (Chronic) DVT (deep venous thrombosis) (Chronic) Dyslipidemia (Chronic) History of alcohol abuse (Chronic) History of CVA (cerebrovascular accident) (Chronic) "in setting of right carotid artery thrombosis" HIV (human immunodeficiency virus infection) (Chronic) Hypertension (Chronic) Migraine (Chronic) Neuropathic pain of both feet (Chronic) Polyp of colon (Chronic 12/21/12) Rib fracture (Resolved) Tobacco abuse (Chronic) Tobacco abuse (Chronic) Surgical History History of anal lesion (Chronic) History of colonoscopy (Chronic) Family History Father Lung cancer Mother Hypertension Social History Preferred Language: [place] Communication Ability: Effective Seeing Eye Dog Teacher Required: No Beliefs That Will Affect Care: None marital status: Current Living Situation: Significant Other Other Information That Helps Us Care for You: No Feels Safe at Home: Yes Safety Concerns: Feels Safe At This Time Smoking Status: Current every day smoker Tobacco Type: cigarettes ; Cigarettes Per Day: 10 ; Second Hand Exposure: No ; Hx Alcohol Use: No Hx Substance Use: No Physical Exam Physical Exam: Physical Exam: Constitutional: appearance over nourished, healthy Ears, Nose, Mouth and Throat: mucous membranes moist, no injection and skin normal, eyes normal Cardiovascular: normal S-1 and S-2 and regular rate and rhythm Respiratory: course breath sounds Musculoskeletal: no peripheral edema and decrease distal pulses Skin: no stigmata of neurocutaneous disease noted and normal and intact Eyes: extraocular muscles intact (EOMI) and pupils equal, round and reactive to light (PERRL) NEUROLOGIC EXAMINATION: Mental status: Alert and interactive Oriented to full date and location Oriented to person Speech fluent with no evidence of aphasia Cranial Nerves left sided nasolabial fold flattening Reflexes: Deep tendon reflexes were symmetrical and graded 2/5. 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/5, deltoid 4/5, hip flex plantar flex ext 3/5 Results & Data Vital Signs (Past 12 Hours) Vital Signs Temp Pulse Pulse Resp BP Pulse Ox 05/22/19 11:41 36.7 C 78 18 153/83 H 95 05/22/19 10:28 90 05/22/19 07:26 36.7 C 68 18 149/85 H 98 05/22/19 04:00 36.6 C 86 19 158/92 H 96 Laboratory Results Abnormal lab results 05/21/19 05/22/19 05/22/19 Range/Units 15:20 06:53 06:53 RBC 4.44 L (4.7-6.1) M/uL Hgb 11.9 L (14.0-18.0) g/dL Hct 36.4 L (42-52) % PT (9.0-12.0) Seconds INR (0.9-1.1) BUN/Creatinine Ratio (10-20) Hemoglobin A1c 6.3 H (4.5-5.6) % Triglycerides (0-150) mg/dl Cholesterol (0-200) mg/dl U Marijuana (THC) Screen Pos H (Neg) 05/22/19 05/22/19 Range/Units 06:53 06:53 RBC (4.7-6.1) M/uL Hgb (14.0-18.0) g/dL Hct (42-52) % PT 18.3 H (9.0-12.0) Seconds INR 1.9 H (0.9-1.1) BUN/Creatinine Ratio 9.1 L (10-20) Hemoglobin A1c (4.5-5.6) % Triglycerides 218 H (0-150) mg/dl Cholesterol 241 H (0-200) mg/dl U Marijuana (THC) Screen (Neg) Diagnostic Findings MRI brain-. No acute intracranial findings. No change in appearance of the brain since MRI of December 17, 2018 with multiple old infarcts within the right cerebral hemisphere. CT C/A/P- No evidence for aortic dissection. Multifocal stenosis within the bilateral iliac and femoral arteries as described above. This remains unchanged. 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 Both lumens opacify. Progressive hepatic steatosis. CT head- No acute intracranial abnormality. 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
[2019-05-22] MEDS ORDERED: MoRPHine SULFATE 4 MG/ML 1 ML CARP\\VIAL IV STA (14:46)
[2019-05-22] MEDS ORDERED: WARFARIN SOD 5 MG TAB PO SCH (16:00)
--- NOTE | 2019-05-22 16:43 | CT Scan Report ---
CERVICAL SPINE CT CT DOSE: 282.47 mGy.cm HISTORY: r/o cervical spine issues for Numbness tingling TECHNIQUE: Multiaxial CT images of the cervical spine were performed and reformatted in the sagittal and coronal plane without the use of contrast. A dose lowering technique was utilized adhering to th e principles of ALARA. COMPARISON: Cervical spine CT 10/24/2018. FINDINGS: Mild dextroscoliosis which may be positional. No fracture or subluxation. Disc spaces are p reserved. Prevertebral soft tissues and the C1-C2 interval are intact. The lung apices are clear. No significant central canal or neural foraminal narrowing by CT technique. IMPRESSION: 1. No fractures within the cervical spine. 2. No significant degenerative disc disease. Electronically signed by: Philip Hair M.D. 05/22/2019 4:42 PM
--- NOTE | 2019-05-22 18:48 | Hospitalist Progress Note ---
Date of Service May 22, 2019 Assessment & Plan (1) Stroke-like symptoms: RUE weakness and R hand paresthesia reported. CT head negative and other possibilities exist to explain the symptoms including recent initiation of zapelon for sleep. Will hold this now. MRI brain ordered. Angiography performed earlier this year revealing known occlusion R ICA with a known L temporal lobe AVM. Will not repeat this now. Also recent echo performed December 2018 reveals no ASD or valvular disease and normal EF. Neuro consulted to evaluate further. Ordered lipitor 40mg now and will continue home aspirin and coumadin. (2) Chest pain: uncertain etiology, risk factors for CAD include smoking and known PVD. Initial troponin is negative and EKG does not reveal evidence of acute ischemia. Trend serial troponins. Pain control efforts PRN. (3) Pulmonary embolism: h/o PE-cont coumadin. Daily INR (4) Tobacco abuse: Advised to quit. Nicoderm patch. (5) HIV disease: Followed by Dr. Blount. Small elevation in viral load at last check wt CD4 in the 600s. As it has been >6 months will recheck again now. (6) Chronic pain syndrome: Severe Neuropathy as main issues. Cont Cymbalta, gabapentin, marinol, oxycodone (7) Carotid artery stenosis: Cont ASA per home regimen. Would suggest statin which he reports he is not taking at home. This is important in setting of PVD and h/o stroke for secondary prophylaxis. Lipitor 40mg ordered. (8) COPD (chronic obstructive pulmonary disease): chronic, stable. Cont home inhalers. (9) Depression: Cont Cymbalta recently started. (10) DVT prophylaxis: coumadin Full Dispo-to telemetry. Plan for home when medically stable. Sherrie Manley DO [facility] Hospitalist Results & Data Vital Signs (Past 12 Hours) Vital Signs Temp Pulse Pulse Resp BP Pulse Ox 05/22/19 15:52 78 05/22/19 14:35 96 05/22/19 11:41 36.7 C 78 18 153/83 H 95 05/22/19 10:28 90 05/22/19 07:26 36.7 C 68 18 149/85 H 98 (1) Chest pain Chest pain type: unspecified Qualified Code(s): R07.9 - Chest pain, unspeci fied
--- NOTE | 2019-05-22 18:56 | Hospitalist Progress Note ---
Date of Service May 22, 2019 Assessment & Plan (1) Stroke-like symptoms: RUE weakness and R hand paresthesia reported Brain MRI: no acute infarct will check cervical Spine MRI Neurology consulted (2) Chest pain: resolved troponins negative x 3 EKG no ischemia (3) Pulmonary embolism: INR 1.9 continue Coumadin (4) Tobacco abuse: Advised to quit. Nicoderm patch. (5) HIV disease: Followed by Dr. Blount. Small elevation in viral load at last check wtih CD4 in the 600s. Viral load pending (6) Chronic pain syndrome: Severe Neuropathy as main issues. Cont Cymbalta, gabapentin, marinol, oxycodone (7) Carotid artery stenosis: Cont ASA per home regimen; Lipitor 40mg ordered. (8) COPD (chronic obstructive pulmonary disease): chronic, stable. Cont home inhalers. (9) Depression: Cont Cymbalta recently started. (10) DVT prophylaxis: coumadin Full Dispo-to telemetry. Plan for home when medically stable. Subjective ff up for right hand paresthesias seen resting in bed, comfortable states right hand paresthesias/pain is about the same no other focal deficits chest pain has resolved, denies shortness of breath no other symptoms Review of Systems Review of Systems: All systems reviewed & are unremarkable except as noted in HPI & below Physical Exam Physical Exam: General- oriented x 3, not in distress, speaks in sentences with no effort or accessory muscle use Head- atraumatic Eyes- PERRL, EOMI, anicteric ENT- oropharynx clear Neck- supple, no JVD, no adenopathy, no thyromegaly; carotids +2/2, no bruits appreciated Lungs- clear to auscultation bilaterally, no rales/wheezes Heart- normal rate, regular rhythm; no murmur, no gallop, no rub appreciated Abdomen- normal bowel sounds, nondistended, soft, nontender, no masses or hepatosplenomegaly Extremities- no pretibial edema, no calf tenderness; peripheral pulses intact Neuro- alert, oriented x 3; CN 2-12 grossly intact; motor 5/5 bilaterally;sensation 100% on all extremities; no other gross focal neurologic deficits Skin- warm & dry Results & Data Vital Signs (Past 12 Hours) Vital Signs Temp Pulse Pulse Resp BP Pulse Ox 05/22/19 15:52 78 05/22/19 14:35 96 05/22/19 11:41 36.7 C 78 18 153/83 H 95 05/22/19 10:28 90 05/22/19 07:26 36.7 C 68 18 149/85 H 98 Laboratory Results Laboratory Results - last 24 hr 05/21/19 05/21/19 05/21/19 15:20 15:20 19:08 WBC RBC Hgb Hct MCV MCH MCHC RDW Std Deviation RDW Coeff of Tanesha Plt Count MPV Immature Gran % (Auto) Neut % (Auto) Lymph % (Auto) [place] % (Auto) Eos % (Auto) Baso % (Auto) Immature Gran # (Auto) Neut # (Auto) Lymph # (Auto) [place] # (Auto) Eos # (Auto) Baso # (Auto) PT INR Sodium Potassium Chloride Carbon Dioxide Anion Gap BUN Creatinine Est Cr Clr Drug Dosing Est GFR ( Amer) Est GFR (Non-Af Amer) BUN/Creatinine Ratio Glucose Estimat Average Glucose Hemoglobin A1c Calcium Troponin I < 0.015 Triglycerides Cholesterol LDL Cholesterol, Calc VLDL Cholesterol, Calc HDL Cholesterol Cholesterol/HDL Ratio Urine Opiates Screen Neg Ur Methadone, Qual Neg Urine Barbiturates Neg Ur Phencyclidine (PCP) Neg U Amphetamin/Meth Scrn Neg MDMA (Ecstasy) Screen Neg U Benzodiazepines Scrn Neg Ur Cocaine Metabolite Neg U Marijuana (THC) Screen Pos H U Marijuana THC Carboxy Pending Drug Screen Comment Pending 05/22/19 05/22/19 05/22/19 00:13 06:53 06:53 WBC 6.40 RBC 4.44 L Hgb 11.9 L Hct 36.4 L MCV 82.0 MCH 26.8 MCHC 32.7 RDW Std Deviation 42.0 RDW Coeff of Tanesha 13.9 Plt Count 282 MPV 9.4 Immature Gran % (Auto) 0.2 Neut % (Auto) 55.5 Lymph % (Auto) 33.0 [place] % (Auto) 8.6 Eos % (Auto) 1.9 Baso % (Auto) 0.8 Immature Gran # (Auto) 0.01 Neut # (Auto) 3.56 Lymph # (Auto) 2.11 [place] # (Auto) 0.55 Eos # (Auto) 0.12 Baso # (Auto) 0.05 PT INR Sodium Potassium Chloride Carbon Dioxide Anion Gap BUN Creatinine Est Cr Clr Drug Dosing Est GFR ( Amer) Est GFR (Non-Af Amer) BUN/Creatinine Ratio Glucose Estimat Average Glucose 134 Hemoglobin A1c 6.3 H Calcium Troponin I < 0.015 Triglycerides Cholesterol LDL Cholesterol, Calc VLDL Cholesterol, Calc HDL Cholesterol Cholesterol/HDL Ratio Urine Opiates Screen Ur Methadone, Qual Urine Barbiturates Ur Phencyclidine (PCP) U Amphetamin/Meth Scrn MDMA (Ecstasy) Screen U Benzodiazepines Scrn Ur Cocaine Metabolite U Marijuana (THC) Screen U Marijuana THC Carboxy Drug Screen Comment 05/22/19 05/22/19 06:53 06:53 WBC RBC Hgb Hct MCV MCH MCHC RDW Std Deviation RDW Coeff of Tanesha Plt Count MPV Immature Gran % (Auto) Neut % (Auto) Lymph % (Auto) [place] % (Auto) Eos % (Auto) Baso % (Auto) Immature Gran # (Auto) Neut # (Auto) Lymph # (Auto) [place] # (Auto) Eos # (Auto) Baso # (Auto) PT 18.3 H INR 1.9 H Sodium 138 Potassium 4.0 Chloride 105 Carbon Dioxide 27 Anion Gap 6.0 BUN 8 Creatinine 0.88 Est Cr Clr Drug Dosing 104.1 Est GFR ( Amer) 112.1 Est GFR (Non-Af Amer) 96.7 BUN/Creatinine Ratio 9.1 L Glucose 94 Estimat Average Glucose Hemoglobin A1c Calcium 9.2 Troponin I Triglycerides 218 H Cholesterol 241 H LDL Cholesterol, Calc 157 VLDL Cholesterol, Calc 44 HDL Cholesterol 40 Cholesterol/HDL Ratio 6 Urine Opiates Screen Ur Methadone, Qual Urine Barbiturates Ur Phencyclidine (PCP) U Amphetamin/Meth Scrn MDMA (Ecstasy) Screen U Benzodiazepines Scrn Ur Cocaine Metabolite U Marijuana (THC) Screen U Marijuana THC Carboxy Drug Screen Comment (1) Chest pain Chest pain type: unspecified Qualified Code(s): R07.9 - Chest pain, unspec ified
[2019-05-22] MEDS: ATORVASTATIN 20 MG TAB PO SCH (21:34)
[2019-05-22] MEDS: ZALEPLON 5 MG CAPSULE PO PRN (21:34)
[2019-05-23 06:43] LABS: Basophils # (auto) 0.06 K/uL (0-0.2); Basophils % (auto) 0.9 %; Eosinophils # (auto) 0.16 K/uL (0-0.5); Eosinophils % (auto) 2.3 %; Hematocrit (blood only) 37.1 % (42-52); Immature Granulocytes # (auto) 0.02 K/uL (0.00-0.02); Immature Granulocytes % (auto) 0.3 %; Lymphocytes # (auto) 2.56 K/uL (1.2-3.4); Lymphocytes % (auto) 36.5 %; Mean Corpuscular Hgb Conc 32.3 g/dL (32-36); Mean Corpuscular Volume 83.6 fL (80-100); Mean Platelet Volume 9.6 fL (7.4-10.4); Monocytes # (auto) 0.63 K/uL (0.11-0.59); Neutrophils # (auto) 3.59 K/uL (1.4-6.5); Platelet Count 303 K/uL (130-400); RDW Coefficient of Variation 14.1 % (11.5-14.5); RDW Standard Deviation 43.3 fL (36.4-46.3); Red Blood Count 4.44 M/uL (4.7-6.1); White Blood Count 7.02 K/uL (4.8-10.8)
[2019-05-23 06:50] LABS: INR 1.7 (0.9-1.1); Prothrombin Time 17.2 Seconds (9.0-12.0)
[2019-05-23 07:23] LABS: Calcium 9.1 mg/dl (8.5-10.1); Creatinine Clr Calc Pharmacy 90.7 ml/min; Est GFR (African American) 96.6; Est GFR (Non-African American) 83.3; Potassium 4.1 mmol/L (3.5-5.1)
[2019-05-23] MEDS: MoRPHine SULFATE 4 MG/ML 1 ML CARP\\VIAL IV PRN ×3 (09:02→19:32)
[2019-05-23] MEDS: NICOTINE 21 MG/24 HR TDSY TD SCH (09:03)
[2019-05-23] MEDS: RALTEGRAVIR POTASSIUM 400 MG TAB PO SCH ×2 (09:04→21:06)
[2019-05-23] MEDS: GABAPENTIN 800 MG TAB PO SCH ×3 (09:04→21:05)
[2019-05-23] MEDS: METOPROLOL SUCC 50MG EXT REL TAB PO SCH (09:04)
[2019-05-23] MEDS: PANTOprazole 40 MG TAB PO SCH (09:04)
[2019-05-23] MEDS: SACCHAROMYCES BOULARDII 250 MG CAP PO SCH ×2 (09:05→21:06)
[2019-05-23] MEDS: FOLIC ACID 1 MG TAB PO SCH (09:05)
[2019-05-23] MEDS: RITONAVIR 100 MG TAB PO SCH ×2 (09:05→21:07)
[2019-05-23] MEDS: levETIRAcetam 500 MG TAB PO SCH ×2 (09:05→21:06)
[2019-05-23] MEDS: DARUNAVIR ETHANOLATE 600 MG TAB PO SCH ×2 (09:05→16:29)
[2019-05-23] MEDS: ASPIRIN 81 MG ECTAB PO SCH (09:06)
[2019-05-23] MEDS: BUDESONIDE/FORMOTEROL FUMARATE 160/4.5 60 PUFFS/INHALER INH SCH ×2 (09:06→21:05)
[2019-05-23] MEDS: OXYCODONE HCL IR 5 MG TAB (IMMEDIATE RELEASE) PO PRN (11:29)
[2019-05-23] MEDS ORDERED: ENOXAPARIN 1 MG/KG SC SCH (11:45)
[2019-05-23] MEDS: ENOXAPARIN 100 MG/1ML SYR SQ SCH (13:51)
--- NOTE | 2019-05-23 14:44 | Neurology Progress Note ---
Date of Service May 23, 2019 Assessment & Plan (1) Stroke-like symptoms: 1. MRI -no new stroke 2. right arm paraesthsia may need imaging of neck 3. EMG as out patient may be helpful for direction of care- requested in [place] Dr Ant Finnegan next available 4. optimize HTN, HLD, DM LDL <70 5. CTA head/neck ? evaluation of vascular system- done in 08/2018 no need to repeat 6. coumadin will likely be for life due to HIV status-optimize 2.0-3.0 7. continue aspirin [address] c spine for any structural issues causing right paraesthesias- no structural issues 9. ok to discharge when medically stable 10. will sign off for now will be avaiable as needed. (2) Arm paresthesia, right: as above Supervising Physician Co-Signing Physician Notes I have seen and discussed above patient with Dr Stiven Mcgarry, neurology I saw Dion today and he claims to be better with only mild paresthesias of his right hand, still has a little bit of neck pain, has not had any chest discomfort and can still induce the paresthesias with the Spurling's type maneuver. The CT scan of the neck reveals some degenerative changes but no evidence for canal compromise at this point I really do not think we need to go ahead with an MRI scan unless he would develop in the future evidence for atrophy or progressive loss of neurologic function or involvement of the contralateral extremity or evidence for myelopathy and none of this seems to be the case right now We recommend he be discharged tomorrow after his Coumadin dose is stabilized and to have an EMG done by Dr. Luis Angel Finnegan in [place] after discharge we will let Dr. Olson decide whether or not further diagnostic studies are needed study results of his EMG for now I do not think neurology needs to follow-up on a regular basis Stiven Mcgarry MD Subjective Dion is a 54 year old male with PMH CVA presents with recent onset of left anterior wall chest pain when stepping out of the shower this morning. The pain is persistent and without radiation or associated symptoms such as nausea, lightheadedness or shortness of breath. He then developed hand numbness as if "my hand fell asleep" involving all fingertips on the right hand with numbness spreading up the arm originating in the hand and moving proximally but not past the elbow. He has recently started Zaleplon for insomnia in early Apr and states that this has been effective for his sleeping needs but does have a side effect of paraesthesias. He reports his HIV is stable and denies slipping or missing any medications. He has severe neuropathy in his feet and lower legs that is stable. He also has some baseline residual stroke deficits including left sided facial droop and left hemiparesis. He is essentially wheelchair bound with his helping him with transfers at home. He does smoke 1/2 pack to 1 ppd and is a recovering alcoholic who denies using marijuana or other illicit drugs. He reports a headache on the crown of his head for which he has taken Ibuprofen over the past 2-3 days. He reports a h/o migraines but states this is not a migraine. He states his was sick with pneumonia and the flu. Today his right arm is still feeling numb. He will be staying another day due to his coumadin level not therapeutic. 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/5, hip flex right 5/5 left 3/5 Results & Data Vital Signs (Past 12 Hours) Vital Signs Temp Pulse Pulse Resp BP Pulse Ox 05/23/19 11:27 36.7 C 68 18 148/75 H 96 05/23/19 10:05 64 05/23/19 07:25 36.6 C 66 20 138/74 97 05/23/19 03:21 36.6 C 69 18 142/81 H 94 Laboratory Results Abnormal lab results 05/23/19 05/23/19 05/23/19 Range/Units 06:23 06:23 06:23 RBC 4.44 L (4.7-6.1) M/uL Hgb 12.0 L (14.0-18.0) g/dL Hct 37.1 L (42-52) % [place] # (Auto) 0.63 H (0.11-0.59) K/uL PT 17.2 H (9.0-12.0) Seconds INR 1.7 H (0.9-1.1) Anion Gap 2.0 L (3-11) Glucose 114 H (70-99) mg/dl Diagnostic Findings CT neck-No fractures within the cervical spine. No significant degenerative disc disease.
[2019-05-23] MEDS: WARFARIN SOD 7.5 MG TAB PO SCH (16:30)
--- NOTE | 2019-05-23 17:33 | Hospitalist Progress Note ---
Date of Service May 23, 2019 Assessment & Plan (1) Stroke-like symptoms: (1) Stroke-like symptoms: presented with Right hand pain and paresthesias Symptoms mostly resolved Brain MRI: no acute infarct Cervical spine: Unrevealing Neurology consulted, thought to be from carpal tunnel syndrome, recommend outpatient neurology follow-up possibly EMG Receiving PRN morphine for pain, pain under control (2) Chest pain: resolved troponins negative x 3 EKG no ischemia (3) Pulmonary embolism: INR 1.7 Usually takes Coumadin 5 mg p.o. daily, increase to 7.5 mg today Also Lovenox therapeutic dose started to bridge as patient had PE back in December Check INR tomorrow Need to increase Coumadin upon discharge, continue to follow-up with Coumadin clinic (4) Tobacco abuse: Advised to quit. Nicoderm patch. (5) HIV disease: Followed by Dr. Blount. Small elevation in viral load at last check wtih CD4 in the 600s. Viral load pending (6) Chronic pain syndrome: Severe Neuropathy as main issues. Cont Cymbalta, gabapentin, marinol, oxycodone (7) Carotid artery stenosis: Cont ASA per home regimen, continue Lipitor (8) COPD (chronic obstructive pulmonary disease): chronic, stable. Cont home inhalers. (9) Depression: Cont Cymbalta recently started. (10) DVT prophylaxis: coumadin Disposition Lives with his at home Follow-up with PCP in 1 week Follow-up with neurology in 1 to 2 weeks Subjective Follow-up for right hand paresthesias Seen resting in bed, comfortable, not in distress, in good spirits Reports right hand pain/paresthesias is improving Denies any other focal neurologic deficits No other new symptoms Review of Systems Review of Systems: All systems reviewed & are unremarkable except as noted in HPI & below Physical Exam Physical Exam: General- oriented x 3, not in distress, speaks in sentences with no effort or accessory muscle use Eyes- anicteric Neck- no JVD Lungs- clear breath sounds bilaterally, no crackles, no wheezing Heart- normal rate, regular rhythm; no murmurs Abdomen- normal bowel sounds, nondistended, soft, nontender Extremities- no pretibial edema, no calf tenderness Neuro- alert, oriented x 3; no gross focal neurologic deficits Skin- warm & dry Results & Data Vital Signs (Past 12 Hours) Vital Signs Temp Pulse Pulse Resp BP BP Pulse Ox 05/23/19 15:49 36.9 C 67 19 157/92 H 96 05/23/19 15:09 77 05/23/19 11:27 36.7 C 68 18 148/75 H 96 05/23/19 10:05 64 05/23/19 07:25 36.6 C 66 20 138/74 97
[2019-05-23] MEDS: ATORVASTATIN 20 MG TAB PO SCH (21:05)
[2019-05-23] MEDS: ZALEPLON 5 MG CAPSULE PO PRN (21:10)
[2019-05-23 23:24] LABS: Marijuana Quant, GCMS Urine 221 ng/mL (<5)
[2019-05-24] MEDS: OXYCODONE HCL IR 5 MG TAB (IMMEDIATE RELEASE) PO PRN ×3 (00:14→15:50)
[2019-05-24] MEDS: ENOXAPARIN 100 MG/1ML SYR SQ SCH ×3 (00:28→23:09)
[2019-05-24] MEDS: MoRPHine SULFATE 4 MG/ML 1 ML CARP\\VIAL IV PRN ×3 (06:19→19:35)
[2019-05-24 07:31] LABS: Basophils # (auto) 0.12 K/uL (0-0.2); Basophils % (auto) 1.5 %; Eosinophils % (auto) 2.5 %; Hematocrit (blood only) 37.3 % (42-52); Hemoglobin 11.8 g/dL (14.0-18.0); Immature Granulocytes # (auto) 0.02 K/uL (0.00-0.02); Immature Granulocytes % (auto) 0.3 %; Lymphocytes # (auto) 3.03 K/uL (1.2-3.4); Lymphocytes % (auto) 38.3 %; Mean Corpuscular Hemoglobin 26.7 pg (25-34); Mean Corpuscular Hgb Conc 31.6 g/dL (32-36); Mean Corpuscular Volume 84.4 fL (80-100); Mean Platelet Volume 9.4 fL (7.4-10.4); Monocytes # (auto) 0.81 K/uL (0.11-0.59); Monocytes % (auto) 10.2 %; Neutrophils # (auto) 3.74 K/uL (1.4-6.5); Neutrophils % (auto) 47.2 %; Platelet Count 303 K/uL (130-400); RDW Coefficient of Variation 14.1 % (11.5-14.5); RDW Standard Deviation 44.1 fL (36.4-46.3); Red Blood Count 4.42 M/uL (4.7-6.1); White Blood Count 7.92 K/uL (4.8-10.8)
[2019-05-24 07:39] LABS: INR 1.9 (0.9-1.1); Prothrombin Time 18.2 Seconds (9.0-12.0)
[2019-05-24 08:09] LABS: BUN Creatinine Ratio 14.2 (10-20); Calcium 9.2 mg/dl (8.5-10.1); Creatinine Clr Calc Pharmacy 97.5 ml/min; Est GFR (African American) 105.4; Est GFR (Non-African American) 90.9; Potassium 3.9 mmol/L (3.5-5.1)
[2019-05-24] MEDS: BUDESONIDE/FORMOTEROL FUMARATE 160/4.5 60 PUFFS/INHALER INH SCH ×2 (08:26→21:08)
[2019-05-24] MEDS: GABAPENTIN 800 MG TAB PO SCH ×3 (08:26→21:03)
[2019-05-24] MEDS: DARUNAVIR ETHANOLATE 600 MG TAB PO SCH ×2 (08:26→16:56)
[2019-05-24] MEDS: PANTOprazole 40 MG TAB PO SCH (08:26)
[2019-05-24] MEDS: METOPROLOL SUCC 50MG EXT REL TAB PO SCH (08:26)
[2019-05-24] MEDS: RITONAVIR 100 MG TAB PO SCH ×2 (08:27→21:06)
[2019-05-24] MEDS: FOLIC ACID 1 MG TAB PO SCH (08:27)
[2019-05-24] MEDS: levETIRAcetam 500 MG TAB PO SCH ×2 (08:27→21:05)
[2019-05-24] MEDS: RALTEGRAVIR POTASSIUM 400 MG TAB PO SCH ×2 (08:27→21:04)
[2019-05-24] MEDS: SACCHAROMYCES BOULARDII 250 MG CAP PO SCH ×2 (08:27→21:02)
[2019-05-24] MEDS: ASPIRIN 81 MG ECTAB PO SCH (08:27)
[2019-05-24] MEDS: NICOTINE 21 MG/24 HR TDSY TD SCH (08:27)
[2019-05-24] MEDS: FERROUS SULFATE 325 MG TAB PO SCH (08:27)
[2019-05-24] MEDS: WARFARIN SOD 7.5 MG TAB PO SCH (15:50)
--- NOTE | 2019-05-24 16:12 | Hospitalist Progress Note ---
Date of Service May 24, 2019 Assessment & Plan (1) Stroke-like symptoms: (1) Stroke-like symptoms: no evidence of acute CVA /no TIA or neurological event possible local nerve compression injury Neurology consulted, thought to be from carpal tunnel syndrome, recommend outpatient neurology follow-up possibly EMG presented with Right hand pain and paresthesias Symptoms mostly resolved Brain MRI: no acute infarct Cervical spine: Unrevealing Receiving PRN morphine for pain, pain under control (2) Chest pain: resolved/non cardiac troponins negative x 3 EKG no ischemia (3) Pulmonary embolism: INR 1.9 Usually takes Coumadin 5 mg p.o. daily, dose was increase to 7.5 mg due to subtheraputic INR on Lovenox bridge , will DC one INR ~2 continue to follow-up with Coumadin clinic (4) Tobacco abuse: Advised to quit. Nicoderm patch. (5) HIV disease: Followed by Dr. Blount. (6) Chronic pain syndrome: Severe Neuropathy as main issues. Cont Cymbalta, gabapentin, marinol, oxycodone (7) Carotid artery stenosis: Cont ASA per home regimen, continue Lipitor (8) COPD (chronic obstructive pulmonary disease): chronic, stable. Cont home inhalers. (9) Depression: Cont Cymbalta recently started. (10) DVT prophylaxis: coumadin/lovenox bridge Disposition plan to discharge home tomorrow Follow-up with PCP in 1 week Follow-up with neurology in 1 to 2 weeks Subjective complains of numbness , tingling sensation on rt hand no headache or dizzy spell no SOB or chest pain Physical Exam Constitutional: WD/WN, vitals as above no acute distress Eyes: PERRL, conjunctivae normal, anicteric sclerae ENMT: external ear and nose normal, oropharynx normal Neck: trachea midline, no thyromegaly Respiratory: normal respiratory effort, lungs clear to auscultation Cardiovascular: RRR, no murmur, no edema Gastrointestinal (Abdomen): normal bowel sounds, soft, nontender, no hepatosplenomegaly Musculoskeletal: Extremities: + abnormal strength (weakness and paresthesia of rt hand ) Skin: no rashes, warm and dry Neurologic: PERRL, EOMI, accommodation nl, no face palsy, no dysarthria + abnormal touch/pain/proprioception (numbness of rt hand ) Psychiatric: A+Ox3, euthymic affect Results & Data Vital Signs (Past 12 Hours) Vital Signs Temp Pulse Pulse Resp BP BP Pulse Ox 05/24/19 15:53 36.6 C 75 19 119/76 95 05/24/19 11:00 36.6 C 81 18 126/82 97 05/24/19 08:03 79 05/24/19 07:31 36.8 C 64 20 131/76 96
[2019-05-24 17:07] LABS: HIV-1 RNA Log Copies/mL 1.76 (NOT DETECTED)
[2019-05-24] MEDS: ATORVASTATIN 20 MG TAB PO SCH (21:03)
[2019-05-24] MEDS: ZALEPLON 5 MG CAPSULE PO PRN (22:08)
[2019-05-25] MEDS: MoRPHine SULFATE 4 MG/ML 1 ML CARP\\VIAL IV PRN ×2 (01:11→07:20)
[2019-05-25 06:14] LABS: INR 2.5 (0.9-1.1); Prothrombin Time 23.8 Seconds (9.0-12.0)
[2019-05-25] MEDS: METOPROLOL SUCC 50MG EXT REL TAB PO SCH (08:27)
[2019-05-25] MEDS: ASPIRIN 81 MG ECTAB PO SCH (08:27)
[2019-05-25] MEDS: FOLIC ACID 1 MG TAB PO SCH (08:27)
[2019-05-25] MEDS: SACCHAROMYCES BOULARDII 250 MG CAP PO SCH (08:28)
[2019-05-25] MEDS: RALTEGRAVIR POTASSIUM 400 MG TAB PO SCH (08:28)
[2019-05-25] MEDS: levETIRAcetam 500 MG TAB PO SCH (08:28)
[2019-05-25] MEDS: DARUNAVIR ETHANOLATE 600 MG TAB PO SCH (08:28)
[2019-05-25] MEDS: GABAPENTIN 800 MG TAB PO SCH (08:28)
[2019-05-25] MEDS: RITONAVIR 100 MG TAB PO SCH (08:28)
[2019-05-25] MEDS: NICOTINE 21 MG/24 HR TDSY TD SCH (08:28)
[2019-05-25] MEDS: BUDESONIDE/FORMOTEROL FUMARATE 160/4.5 60 PUFFS/INHALER INH SCH (08:29)
[2019-05-25] MEDS: PANTOprazole 40 MG TAB PO SCH (08:29)
[2019-05-25] MEDS: OXYCODONE HCL IR 5 MG TAB (IMMEDIATE RELEASE) PO PRN (08:34)
[2019-05-25] MEDS ORDERED: STROKE PATIENT DISCHARGE STA (11:06)
--- NOTE | 2019-05-25 11:20 | Discharge Summary ---
Date of Service May 25, 2019 Admission HPI Per Admitting Provider 54 yo M with h/o CVA presents with recent onset of left anterior wall chest pain when stepping out of the shower this morning. The pain is persistent and without radiation or associated symptoms such as nausea, lightheadedness or shortness of breath. He subsequently developed hand numbness as if "my hand fell asleep" involving all fingertips on the right hand with numbness spreading up the arm originating in the hand and moving proximally but not past the elbow. He has recently started Zaleplon for insomnia in early Apr and states that this has been effective for his sleeping needs. A common side effect of this medication is paresthesias, however. He reports his HIV is stable and denies any new medications outside of marinol that he takes, given to him by his ID physician. He has severe neuropathy in his feet and lower legs that is stable. He also has some baseline residual stroke deficits including left sided facial droop and left hemiparesis. He is essentially wheelchair bound with his helping him with transfers at home. He does smoke 1/2 pack to 1 ppd and is a recovering alcoholic who denies using marijuana or other illicit drugs. ROS otherwise reveals diarrhea with a once daily thick pasty stool, denies abdominal pain and is eating. He reports a headache on the crown of his head for which he has taken Ibuprofen over the past 2-3 days. He reports a h/o migraines but stat es this is not a migraine. He reports feeling feverish last week which has resolved completely and denies URI symptoms such as cough, fever or chills. He states his was sick with pneumonia and the flu. Other than the zapelon, the only other change in medications has been his antidepressants, starting cymbalta recently. Principal Diagnosis STROKE LIKE SYMPTOM /RIGHT HAND NUMBNESS /POSSIBLE CARPAL TUNNEL SYNDROME Discharge Exam Constitutional WD/WN, vitals as above no acute distress Eyes PERRL, conjunctivae normal, anicteric sclerae ENMT external ear and nose normal, oropharynx normal Neck trachea midline, no thyromegaly Respiratory normal respiratory effort, lungs clear to auscultation Cardiovascular RRR, no murmur, no edema Gastrointestinal (Abdomen) normal bowel sounds, soft, nontender, no hepatosplenomegaly Musculoskeletal Extremities: + abnormal strength (weakness and paresthesia of rt hand ) Skin no rashes, warm and dry Neurologic PERRL, EOMI, accommodation nl, no face palsy, no dysarthria + abnormal touch/pain/proprioception (numbness of rt hand ) Psychiatric A+Ox3, euthymic affect Discharge Data Allergies Allergy/AdvReac Type Severity Reaction Status Date / Time Penicillins Allergy Severe ANAPHYLAXIS Verified 05/21/19 13:30 niacin Allergy Intermediate RASH Verified 05/21/19 13:30 Sulfa (Sulfonamide Allergy Intermediate "ITCHY Verified 05/21/19 13:30 Antibiotics) RASH" tramadol Allergy Mild RASH Verified 05/21/19 13:30 azithromycin Allergy Unknown Verified 05/21/19 13:30 meloxicam AdvReac Intermediate GI SYMPTOMS Verified 05/21/19 13:30 shellfish derived AdvReac Intermediate gi symptoms Verified 05/21/19 13:30 topiramate AdvReac Intermediate NAUSEA Verified 05/21/19 13:30 Consultations 05/21/19 18:38 Consult Case Management - Discharge Planning Routine Consult Neurology Routine Ordered Studies 05/21/19 13:15 CT head/brain wo con Stat 05/21/19 14:15 CT angio abd pelvis wo/w con Stat CT angio chest dissec wo/w con Stat 05/22/19 00:12 MR brain wo con Routine 05/22/19 15:44 CT cervical spine wo con Routine Hospital Course (1) Stroke-like symptoms: (1) Stroke-like symptoms: no evidence of acute CVA /no TIA or neurological event possible local nerve compression injury Neurology consulted, thought to be from carpal tunnel syndrome, recommend outpatient neurology follow-up possibly EMG presented with Right hand pain and paresthesias Symptoms mostly resolved Brain MRI: no acute infarct Cervical spine: Unrevealing Receiving PRN morphine for pain, pain under control (2) Chest pain: resolved/non cardiac troponins negative x 3 EKG no ischemia (3) Pulmonary embolism: INR 1.9 Usually takes Coumadin 5 mg p.o. daily, dose was increase to 7.5 mg due to subtheraputic INR on Lovenox bridge , will DC one INR ~2 continue to follow-up with Coumadin clinic (4) Tobacco abuse: Advised to quit. Nicoderm patch. (5) HIV disease: Followed by Dr. Blount. (6) Chronic pain syndrome: Severe Neuropathy as main issues. Cont Cymbalta, gabapentin, marinol, oxycodone (7) Carotid artery stenosis: Cont ASA per home regimen, continue Lipitor (8) COPD (chronic obstructive pulmonary disease): chronic, stable. Cont home inhalers. (9) Depression: Cont Cymbalta recently started. (10) DVT prophylaxis: coumadin/lovenox bridge Disposition plan to discharge home tomorrow Follow-up with PCP in 1 week Follow-up with neurology in 1 to 2 weeks Total Time Total Time Spent Total Time Spent (In Minutes): 35 mins Total Time Includes: Examination of the Patient, Discharge Planning and Medication Reconciliation Discharge Plan Discharge Items Patient Disposition: Home - Self-Care Reason For Visit: STROKE SYMPTOMS Discharge Diagnosis: STROKE LIKE SYMPTOM /RIGHT HAND NUMBNESS /POSSIBLE CARPAL TUNNEL SYNDROME Activity: Resume your previous activity Non-emergency contact: Primary Care Provider Call non-emergency contact if: you have any medication questions Follow-up/Referrals: Luis Angel Finnegan DO [Physician] - (FOLLOW UP AT [facility] ) Alexandr Elder DO [Primary Care Provider] - 05/29/19 11:10 am Diet: Heart Healthy Addtl Attending Provider Instructions: Risk Factors for Stroke: You can reduce your chances of stroke by working with your medical provider to adopt a healthy lifestyle. Some specific ways to lower your chance of stroke are: * If you are a smoker, now is the time to stop smoking cigarettes * If you are diabetic, improve the control of your blood sugars * Avoid excessive amounts of alcohol * Control high blood pressure * Lose weight if you are overweight * Be sure to lead an active lifestyle * Eat a healthy diet low in salt, cholesterol and fat You should know about other risk factors for stroke that you are unable to control. These include: * Age 55 years or older * Male gender * Certain racial groups: , or / * Family History of Stroke, Mini stroke or Heart Attack * Sickle Cell Disease Follow Up: It is important for you to keep your follow up appointments with your medical provider. Who to Call and When: Medical Emergencies: Call 911 immediately if you experience any of the following warning signs and symptoms of Stroke: * Sudden numbness or weakness of the face, arm or leg, especially on one side of the body * Sudden confusion, trouble speaking or understanding * Sudden trouble seeing in one or both eyes * Sudden trouble walking, dizziness, loss of balance or coordination * Sudden severe headache with no cause Do not delay calling 911 if you experience any warning signs or symptoms of a stroke. Delay in seeking medical attention may affect what treatments can be given to you. .NEUROLOGY FOLLOW UP AT [facility] WITH DR DONALD FINNEGAN IN 3-4 WEEKS , MAY NEED EMG STUDY TO ASSESS FOR CARPAL TUNNEL SYNDROME Pending Studies at Discharge: No Stand-Alone Forms: [facility], Smoking Cessation Medications and DC Order Prescriptions: Continued ritonavir 100 mg tablet 100 mg PO BID Qty: 180 RF: 1 Isentress 400 mg tablet 400 mg PO BID Qty: 180 RF: 1 Prezista 600 mg tablet 600 mg PO BIDM Qty: 180 RF: 1 aspirin 81 mg tablet,delayed release (DR/EC) 81 mg PO QAM RF: 0 dronabinol [Marinol] 10 mg Capsule 10 mg PO QAM RF: 0 furosemide [Lasix] 20 mg Tablet 20 mg PO QAM PRN (Reason: Swelling) RF: 0 fluoxetine [Prozac] 20 mg Capsule 40 mg PO QAM RF: 0 fluticasone propionate [Flonase Allergy Relief] 50 mcg/actuation [place],Suspension 2 spray INTRANASAL QAM PRN (Reason: post-nasal drip) RF: 0 Symbicort 160-4.5 mcg/actuation Hfa Aerosol Inhaler 2 puff INHALATION Q12H RF: 0 folic acid 1 mg Tablet 1 mg PO QAM RF: 0 gabapentin 800 mg Tablet 800 mg PO TID RF: 0 levetiracetam [Keppra] 1,000 mg Tablet 1,000 mg PO BID RF: 0 ferrous sulfate 325 mg (65 mg iron) tablet 325 mg PO Q OTHER DAY RF: 0 amlodipine 5 mg tablet 5 mg PO QAM RF: 0 albuterol sulfate [Ventolin HFA] 90 mcg/actuation HFA aerosol inhaler 2 puff inhalation BID PRN (Reason: Wheezing) RF: 0 ondansetron 4 mg tablet,disintegrating 4 mg PO Q8H PRN (Reason: Nausea And Vomiting) RF: 0 Florastor 250 mg capsule 250 mg PO BID Qty: 20 RF: 0 duloxetine 60 mg Capsule,Delayed Release(Dr/Ec) 60 mg PO DAILY RF: 0 ipratropium-albuterol 0.5 mg-3 mg(2.5 mg base)/3 mL Solution For Nebulization 3 ml INHALATION Q4H PRN (Reason: Shortness Of Breath Or Wheezing) RF: 0 omeprazole 20 mg Capsule,Delayed Release(Dr/Ec) 20 mg PO QAM RF: 0 metoprolol succinate 50 mg tablet extended release 24 hr 50 mg PO DAILY RF: 0 warfarin [Jantoven] 5 mg tablet 5 mg PO DAILY RF: 0 oxycodone 5 mg Tablet 5 mg PO Q6H PRN (Reason: Pain) RF: 0 Discharge Orders: Discharge Order (Routine); Ordered 05/25/19 Ordered By: Cheryl Anna/Other Patient Handouts: Prediabetes, A1C Admission Data Admit Date/Time: 05/24/19 13:19 Attending Provider: Cheryl Veloz Admit Provider: Sherrie Manley Primary Care Provider: Alexandr Elder Other Providers: Sherrie Manley ; Stiven Mcgarry Other Interventions: Discharge Summary Assessment (RN) Last Done: 05/25/19 11:10
[2019-05-25] MEDS ORDERED: WARFARIN SOD 5 MG TAB PO SCH (16:00)
== END 2019-05-25 11:47 | disposition home or self-care (01) | DRG 74 ==
LOC: 2N 13:13 → ED 13:13 → SUATTDRO 17:05 → 2N 18:21

== ENCOUNTER 2019-07-09 11:42 | Observation (INO) ==
[2019-07-09] MEDS ORDERED: NITROGLYCERIN 2% OINTMENT 30GM TUBE EXT STA (12:57)
[2019-07-09] MEDS ORDERED: ONDANSETRON INJ 2 MG/ML 2 ML VIAL IV STA (13:04)
[2019-07-09] MEDS ORDERED: fentaNYL citrate 100 MCG/2 ML VIAL IV STA (13:04)
[2019-07-09] MEDS ORDERED: SODIUM CHLORIDE 0.9% 500 ML IV SCH (13:15)
[2019-07-09 13:18] LABS: Basophils # (auto) 0.08 K/uL (0-0.2); Basophils % (auto) 0.7 %; Eosinophils # (auto) 0.27 K/uL (0-0.5); Eosinophils % (auto) 2.2 %; Hematocrit (blood only) 42.4 % (42-52); Hemoglobin 14.2 g/dL (14.0-18.0); Immature Granulocytes # (auto) 0.03 K/uL (0.00-0.02); Immature Granulocytes % (auto) 0.2 %; Lymphocytes # (auto) 3.06 K/uL (1.2-3.4); Lymphocytes % (auto) 25.2 %; Mean Corpuscular Hemoglobin 26.5 pg (25-34); Mean Corpuscular Hgb Conc 33.5 g/dL (32-36); Mean Corpuscular Volume 79.3 fL (80-100); Mean Platelet Volume 10.4 fL (7.4-10.4); Monocytes # (auto) 1.25 K/uL (0.11-0.59); Monocytes % (auto) 10.3 %; Neutrophils # (auto) 7.45 K/uL (1.4-6.5); Neutrophils % (auto) 61.4 %; Platelet Count 284 K/uL (130-400); RDW Coefficient of Variation 14.6 % (11.5-14.5); Red Blood Count 5.35 M/uL (4.7-6.1); White Blood Count 12.14 K/uL (4.8-10.8)
[2019-07-09 13:27] LABS: Alanine Aminotransferase 32 U/L (12-78); Aspartate Aminotransferase 15 U/L (15-37); BUN Creatinine Ratio 13.1 (10-20); Blood Urea Nitrogen 13 mg/dl (7-18); Calcium 9.3 mg/dl (8.5-10.1); Carbon Dioxide 28 mmol/L (21-32); Chloride 104 mmol/L (98-107); Creatinine Clr Calc Pharmacy 95.4 ml/min; Est GFR (African American) 102.7; Est GFR (Non-African American) 88.6; Glucose 139 mg/dl (70-99); Lipase 94 U/L (73-393); Sodium 138 mmol/L (136-145)
[2019-07-09 13:32] LABS: Albumin Globulin Ratio 1.1 (0.9-2); Alkaline Phosphatase 132 U/L (45-117); Bilirubin,Total 0.3 mg/dl (0.2-1); Globulin 3.6 gm/dl (2.5-4.0); Total Protein 7.6 gm/dl (6.4-8.2); Troponin I < 0.015 ng/ml (0-0.045)
[2019-07-09 14:42] LABS: INR 1.2 (0.9-1.1); Partial Thromboplastin Time 27.2 Seconds (21.0-31.0); Prothrombin Time 12.4 Seconds (9.0-12.0)
[2019-07-09 14:50] LABS: Influenza A virus by PCR Neg for Influ A (Neg); Influenza B virus by PCR Neg for Influ B (Neg)
--- NOTE | 2019-07-09 15:17 | XRay Report ---
XR chest 2V PA/lateral HISTORY: 54 years-old Male CP/fever/HIV+ eval for pna acute chest pain with fever COMPARISON: Chest radiograph 06/25/2019 TECHNIQUE: AP and lateral views of the chest FINDINGS: Cardiomediastinal and hilar silhouettes are within normal limits. No pneumothorax, pleural effusion, focal airspace consolidation or overt pulmonary edema. The bones of the chest appear grossly intact. The patient is slightly rotated. IMPRESSION: No acute process. ACT 112: Negative or not required by law. The above report was generated using voice recognition software. It may contain grammatical, syntax o r spelling errors. Electronically signed by: Khoa Trevizo M.D. 07/09/2019 3:16 PM
[2019-07-09] MEDS ORDERED: OPTIRAY 320 125ml IV PRN (15:31)
--- NOTE | 2019-07-09 15:46 | CT Scan Report ---
CT head/brain wo con CLINICAL HISTORY: 54 years-old Male with fall/seizures eval for bleed. Acute head injury status post fall. History of seizures TECHNIQUE: Multiple axial CT images of the head were obtained without contrast. A dose lowering tech nique was utilized adhering to the principles of ALARA. CT DOSE: 1331.05 mGy.cm COMPARISON: Head CT 06/25/2019 FINDINGS: No acute intracranial hemorrhage, midline shift, intracranial mass, hydrocephalus, territorial ischem ia or abnormal extra-axial collection. Encephalomalacia from remote MCA territorial infarct redemonst rated. Age-related involutional changes with ex vacuo ventriculomegaly. Patchy white matter hypodensi ties suggest chronic microvascular ischemic disease. The calvarium is intact. The paranasal sinuses, mastoid air cells, and middle ear cavities are clear . IMPRESSION: Chronic findings as above without acute process. ACT 112: Negative or not required by law. The above report was generated using voice recognition software. It may contain grammatical, syntax o r spelling errors. Electronically signed by: Khoa Trevizo M.D. 07/09/2019 3:45 PM
--- NOTE | 2019-07-09 16:05 | CT Scan Report ---
CT ANGIOGRAM OF THE CHEST CLINICAL HISTORY: Atypical chest pain. Dyspnea. COMPARISON STUDY: Chest CT scans dated 05/21/2019 and 10/25/2016. TECHNIQUE: Following the IV administration of 119 cc of Optiray 320, CT angiogram of the chest was pe rformed from the upper abdomen to the thoracic inlet utilizing the pulmonary embolus protocol. Images are reviewed in the axial, sagittal, and coronal planes. 3-D MIPS images are created and assessed. I V contrast was administered without complication. A dose lowering technique was utilized adhering to the principles of ALARA. The examination is degraded by streak artifact from the arms which could no t be elevated above the chest. FINDINGS: Thyroid: Imaged portions of the thyroid gland are normal in size and attenuation. Thoracic aorta: There is mild ectasia of the ascending thoracic aorta which measures up to 3.8 cm in diameter. The remainder of the thoracic aorta is normal in caliber and the arch demonstrates standard 3-vessel anatomy. No dissection is seen. Pulmonary vasculature: The pulmonary trunk is mildly dilated measuring 3.1 cm in diameter. This sugge sts pulmonary artery hypertension. There are no filling defects identified in main, lobar, or segment al pulmonary branches to suggest pulmonary embolus. Heart: The heart is enlarged and without pericardial effusion. The coronary arteries are densely calc ified. Lungs and pleural spaces: Mild emphysematous change is identified. There is no airspace consolidation or pleural effusion. The trachea and central airways are clear. Mild diffuse peribronchial thickenin g is observed. Scarring/atelectasis is noted at the lung bases. Mediastinum: There is no mediastinal lymphadenopathy. Ibeth: Clear. Axillae: There is no axillary lymphadenopathy. Upper abdomen: The liver is enlarged and steatotic. There is a small to moderate hiatal hernia. Skeletal structures: No lytic or blastic bony lesions are seen. There is mild thoracic scoliosis. IMPRESSION: 1. There is no evidence of pulmonary embolus in the main, lobar, or segmental pulmonary arteries. 2. Cardiomegaly and mild emphysema. 3. There is mild ectasia of the ascending thoracic aorta which measures up to 3.8 cm in diameter. No dissection is seen. 4. There is no airspace consolidation or pleural effusion. 5. Mild diffuse peribronchial thickening suggests bronchitis/reactive airway disease. Clinical correl ation will be required. 6. Hepatic steatosis. 7. Additional findings as above. ACT 112: Negative or not required by law. Electronically signed by: Nico Guerra M.D. 07/09/2019 4:03 PM
[2019-07-09] MEDS ORDERED: ALBUT/IPRATROP 3MG/0.5MG NEB 3 ML VIAL INH PRN (18:05)
[2019-07-09] MEDS ORDERED: ACETAMINOPHEN 325 MG TAB PO PRN (18:12)
[2019-07-09 18:15] LABS: Thyroid Stimulating Hormone 0.923 uIu/ml (0.300-4.500)
--- NOTE | 2019-07-09 18:17 | History & Physical Report ---
Date of Service July 09, 2019 Assessment & Plan (1) Seizure: SEIZURE VERSUS PSEUDOSEIZURE History of stroke in the past -this is a patient with multiple previous neurological workups in the past -as per EMS notes, patient may have had 2 episodes of seizures and the one at 9 AM on 07/09/2019 was witnessed by patient's male partner who called the ambulance. History is mostly from the patient as his male partner is not present in the hospital and did not accompany the patient here. patient reports that at baseline because of history of stroke, he has left sided upper extremity weakness and really cannot move his left leg at all. However, he reports that his "seizures" are happening more frequently in the past and that since being discharged in May 2020 with brenna Lopez he could not get a neurology appointment until August 2019 with [facility]. Patient reports that the seizure like activity primarily affects the left side and what is more unusual to him him that they involve his left leg jerking. He reported that recently he had 1 episode last night when he fell out of the bed and the one at 9 AM occurred and he fell off the couch and that his male partner saw him lose consciousness for a few seconds. EMS notes reported associated complaints of chest tightness and shortness of breath. patient also though he had a fever of 101 F yesterday night -in the ED, the patient did not appear to have any post-ictal symptoms. he is comfortable and answers all questions appropriately. speaking well and no dysarthria afebrile. no current discomforts.no chest pain. no shortness of breath. breathing on room air. no dizziness. no lightheadedness. no headache. no nausea. no vomiting. no incontinence reported no changes to baseline left sided weakness. -CT head on this admission on 07/09/2019: No acute intracranial hemorrhage, midline shift, intracranial mass, hydrocephalus, territorial ischemia or abnormal extra-axial collection. Encephalomalacia from remote MCA territorial infarct redemonstrated. Age-related involutional changes with ex vacuo ventricul omegaly. Patchy white matter hypodensities suggest chronic microvascular ischemic disease -as per nurse, patient passed dysphagia screening -at this time no acute lab electrolyte abnormalities or acute EKG changes -normal urine analysis and no pneumonia noted on chest X ray, blood cultures pending, hospitalist would not start any empiric antibiotics at this time until it is more clear that patient has fever during hospital stay or clinical signs of acute infection -discussed with neurology Dr. Finnegan, that hospitalist will plan to admit to telemetry, place seizure and aspiration precautions, request Brain MRI seizure protocol, request routine EEG, and neurology consult. and that is not clear to hospital doctor whether patient has unusual epileptic discharges at home that would indicate seizure versus pseudoseizure -PT/OT evaluations, case management consult for discharge needs when hospital workup completed History in DVT diagnosed in 09/2018 -CTA on this admission in 07/09/2019: There is no evidence of pulmonary embolus in the main, lobar, or segmental pulmonary arteries. Cardiomegaly and mild emphysema. There is mild ectasia of the ascending thoracic aorta which measures up to 3.8 cm in diameter. No dissection is seen. There is no airspace consolidation or pleural effusion. Mild diffuse peribronchial thickening suggests bronchitis/reactive airway disease. Hepatic steatosis -chart review has shown previous hospitalist write history of pulmonary embolism but CTA scans in 2018 and 2017 at [facility] does not show evidence of pulmonary embolism -patient has chronically been on warfarin, INR on 07/09/2019 is subtherapeutic -since the main issue is seizure workup, would not give full dose anticoagulation at this time to prevent risk of seizure leading to brain bleed -will place on heparin q8 hours subcutaneously for now and obtain ultrasound of lower extremities Hypertension -blood pressure stable -continue home dose amlodipine of 5 mg daily Carotid artery stenosis: -Continue aspirin 81 mg daily Chronic pain syndrome / Neuropathy -continue home dose duloxetine -holding off gabapentin and marinol for now -minimizing narcotics for now COPD (chronic obstructive pulmonary disease): -Cont home symbicort (2) HIV (human immunodeficiency virus infection): -Continue Prezista 600 mg twice daily, ritonavir 100 mg twice a day, and Isentress 400 mg twice a day -continue folic acid -check B12 levels, folic acid levels, TSH Full Code History of Present Illness -this is a patient with multiple previous neurological workups in the past -as per EMS notes, patient may have had 2 episodes of seizures and the one at 9 AM on 07/09/2019 was witnessed by patient's male partner who called the ambulance. History is mostly from the patient as his male partner is not present in the hospital and did not accompany the patient here. patient reports that at baseline because of history of stroke, he has left sided upper extremity weakness and really cannot move his left leg at all. However, he reports that his "seizures" are happening more frequently in the past and that since being discharged in May 2020 with brenna Lopez he could not get a neurology appointment until August 2019 with [facility]. Patient reports that the seizure like activity primarily affects the left side and what is more unusual to him him that they involve his left leg jerking. He reported that recently he had 1 episode last night when he fell out of the bed and the one at 9 AM occurred and he fell off the couch and that his male partner saw him lose consciousness for a few seconds. EMS notes reported associated complaints of chest tightness and shortness of breath. patient also though he had a fever of 101 F yesterday night -in the ED, the patient did not appear to have any post-ictal symptoms. he is comfortable and answers all questions appropriately. speaking well and no dysarthria afebrile. no current discomforts.no chest pain. no shortness of breath. breathing on room air. no dizziness. no lightheadedness. no headache. no nausea. no vomiting. no incontinence reported no changes to baseline left sided weakness. -CT head on this admission on 07/09/2019: No acute intracranial hemorrhage, midline shift, intracranial mass, hydrocephalus, territorial ischemia or abnormal extra-axial collection. Encephalomalacia from remote MCA territorial infarct redemonstrated. Age-related involutional changes with ex vacuo ventriculomegaly. Patchy white matter hypodensities suggest chronic microvascular ischemic disease -as per nurse, patient passed dysphagia screening -at this time no acute lab electrolyte abnormalities or acute EKG changes -normal urine analysis and no pneumonia noted on chest X ray, blood cultures pending, hospitalist would not start any empiric antibiotics at this time until it is more clear that patient has fever during hospital stay or clinical signs of acute infection -discussed with neurology Dr. Finnegan, that hospitalist will plan to admit to telemetry, place seizure and aspiration precautions, request Brain MRI seizure protocol, request routine EEG, and neurology consult. and that is not clear to hospital doctor whether patient has unusual epileptic discharges at home that would indicate seizure versus pseudoseizure Allergies: reports that sulfa drugs lead to throat swelling Family history of father with coronary artery bypass Primary Care Provider: Alexandr Elder DO Allergies Allergy/AdvReac Type Severity Reaction Status Date / Time Penicillins Allergy Severe ANAPHYLAXIS Verified 07/09/19 12:20 niacin Allergy Intermediate RASH Verified 07/09/19 12:20 Sulfa (Sulfonamide Allergy Intermediate "ITCHY Verified 07/09/19 12:20 Antibiotics) RASH" tramadol Allergy Mild RASH Verified 07/09/19 12:20 azithromycin Allergy Unknown Verified 07/09/19 12:20 meloxicam AdvReac Intermediate GI SYMPTOMS Verified 07/09/19 12:20 shellfish derived AdvReac Intermediate gi symptoms Verified 07/09/19 12:20 topiramate AdvReac Intermediate NAUSEA Verified 07/09/19 12:20 Home Medications Home Medications Medication Instructions Recorded Confirmed Type Symbicort 2 puff INHALATION Q12H 06/08/18 07/09/19 History aspirin 81 mg PO QAM 06/08/18 07/09/19 History dronabinol [Marinol] 10 mg PO QAM 06/08/18 07/09/19 History fluticasone propionate [Flonase 2 spray INTRANASAL QAM PRN 06/08/18 07/09/19 History Allergy Relief] folic acid 1 mg PO QAM 06/08/18 07/09/19 History furosemide [Lasix] 20 mg PO QAM PRN 06/08/18 07/09/19 History gabapentin [Neurontin] 800 mg PO TID 08/25/18 07/09/19 History ipratropium-albuterol 3 ml INHALATION Q4H PRN 10/04/18 07/09/19 History omeprazole 20 mg PO DAILYBB 10/04/18 07/09/19 History ferrous sulfate [iron] 325 mg PO Q OTHER DAY 10/24/18 07/09/19 History levetiracetam [Keppra] 1,500 mg PO BID 10/24/18 07/09/19 History albuterol sulfate [Ventolin HFA] 2 puff INHALATION BID 11/14/18 07/09/19 History amlodipine [Norvasc] 5 mg PO QAM 11/14/18 07/09/19 History ondansetron 4 mg PO Q8H PRN 11/14/18 07/09/19 History Florastor 250 mg PO BID #20 cap 11/15/18 07/09/19 Rx darunavir ethanolate 600 mg tablet 600 mg PO BIDM #180 tab 02/09/19 07/09/19 Rx raltegravir 400 mg tablet 400 mg PO BID #180 tab 02/09/19 07/09/19 Rx ritonavir 100 mg tablet 100 mg PO BID #180 tab 02/09/19 07/09/19 Rx metoprolol succinate [Toprol XL] 50 mg PO QAM 04/07/19 07/09/19 History oxycodone [Roxicodone] 5 mg PO Q6H PRN 04/07/19 07/09/19 History warfarin [Jantoven] 5 mg PO QAM 04/07/19 07/09/19 History duloxetine [Cymbalta] 60 mg PO DAILY 05/21/19 07/09/19 History Past Med/Surg History Medical History Anal dysplasia (Chronic) Anxiety (Chronic) AVM (arteriovenous malformation) brain (Chronic) Carotid artery stenosis (Chronic) Complete R ICA occlusion, 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% Carotid stenosis (Chronic) "03/06/15-SAÚL occlusion, LICA with 50-59% stenosis" Chronic pain syndrome (Chronic) COPD (chronic obstructive pulmonary disease) (Chronic) COPD (chronic obstructive pulmonary disease) Depression (Chronic) DVT (deep venous thrombosis) (Chronic) Dyslipidemia (Chronic) History of alcohol abuse (Chronic) History of CVA (cerebrovascular accident) (Chronic) "in setting of right carotid artery thrombosis" HIV (human immunodeficiency virus infection) (Chronic) Hypertension (Chronic) Migraine (Chronic) Neuropathic pain of both feet (Chronic) Polyp of colon (Chronic 12/21/12) Rib fracture (Resolved) Seizure (Acute) Tobacco abuse (Chronic) Tobacco abuse (Chronic) Surgical History History of anal lesion (Chronic) History of colonoscopy (Chronic) Family History Father Lung cancer Mother Hypertension Social History Preferred Language: Citizen Of [place] Communication Ability: Effective 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 Beliefs That Will Affect Care: None marital status: Current Living Situation: Significant Other Feels Safe at Home: Yes Smoking Status: Current every day smoker Tobacco Type: cigarettes ; Cigarettes Per Day: 10 ; Second Hand Exposure: No ; Hx Alcohol Use: No Hx Substance Use: No Review of Systems Review of Systems: All systems reviewed & are unremarkable except as noted in HPI & below Physical Exam Constitutional: cooperative and comfortable Eyes: PERRL, conjunctivae normal, anicteric sclerae EOM intact bilaterally ENMT: external ear and nose normal, oropharynx normal no tongue deviation Neck: normal visual inspection Respiratory: normal respiratory effort, lungs clear to auscultation Cardiovascular: Rate/Rhythm: regular rate and regular rhythm Gastrointestinal (Abdomen): normal bowel sounds, soft, nontender, no hepatosplenomegaly Musculoskeletal: Head/Neck/Chest: normocephalic and head atraumatic Neurologic: PERRL, EOMI, accommodation nl, no face palsy, no dysarthria left upper extremity weakness is baseline as per patient. patient cannot lifet up left lower extremity which is baseline. right upper and right lower extremity with no focal deficits Psychiatric: A+Ox3, euthymic affect Results & Data Vital Signs (Past 12 Hours) Vital Signs Temp Pulse Resp BP Pulse Ox 07/09/19 17:01 97 H 16 07/09/19 17:00 98 H 17 112/66 07/09/19 16:14 107 H 20 07/09/19 16:13 108 H 17 155/144 H 07/09/19 16:00 99 H 20 07/09/19 15:38 97 H 07/09/19 14:00 94 H 26 H 152/85 H 97 07/09/19 13:39 87 13 152/97 H 96 07/09/19 13:00 90 15 97 07/09/19 12:57 20 98 07/09/19 12:07 98 H 15 96 07/09/19 11:54 95 H 17 143/101 H 99 07/09/19 11:42 37.0 C 102 H 16 143/101 H 98 Code Status & VTE Plan VTE Prophylaxis Plan VTE Prophylaxis will be ordered: Yes (1) HIV (human immunodeficiency virus infection) HIV symptom status: unspecified Qualified Code(s): B20 - Human immunodeficiency virus [HIV] disease
--- NOTE | 2019-07-09 18:19 | Electrocardiogram Report ---
Test Reason : Blood Pressure : / mmHG Vent. Rate : 099 BPM Atrial Rate : 099 BPM P-R Int : 170 ms QRS Dur : 106 ms QT Int : 370 ms P-R-T Axes : 039 -14 048 degrees QTc Int : 474 ms Normal sinus rhythm Incomplete right bundle branch block When compared with ECG of 25-JUN-2019 11:34, No significant change was found Confirmed by Tommy Haynes ([id number]) on 07/09/2019 6:19:08 PM Referred By: REFERRED SELF Confirmed By:Javan Haynes
[2019-07-09 19:26] LABS: Phosphorus 3.4 mg/dl (2.5-4.9)
[2019-07-09 19:39] LABS: Folate (Folic Acid) 9.34 ng/ml (>5.38)
--- NOTE | 2019-07-09 19:54 | Emergency Department Note ---
Entered by Andrea Hernandez acting as a scribe for History of Present Illness General Chief complaint: Cardiac Assessment Stated complaint: CHEST TIGHTNESS, L SIDE FACE & ARM NUMBNESS Time Seen by Provider: 07/09/19 12:44 Source: patient History of Present Illness Onset (ago): hour(s) 5 Location: chest Pain Consistency: + constant Maximum Pain Intensity: 9 Quality: + other (tightness) Associated symptoms: + headaches, + shortness of breath and + other (diarrhea, fever, seizures) The patient is a 54 y/o male who presents to the ED w/ CC of constant, chest tightness beginning 5 hours ago. The patient states he had two seizures last night and one this morning while he was sleeping. He reports he did not hit his head during his seizures, but he did fall off of the couch this morning during his seizure. The patient notes he currently feels very tired and wiped out. He states two weeks ago he was evaluated and told to increase his Keppra from 2000mg twice a day to 3000mg. The patient reports he normally has his seizures in the middle of the night where he flails his body. He notes his w itness most of his seizures, and the seizures last for a few seconds. The patient states he has not missed a dose of his medication, and Dr. Walton is his neurologist. He reports he also developed chest tightness this morning that has been continuous. The patient notes he is also mildly short of breath. He states his pain was a 10/10 in severity, and it lowered to a 9/10 after receiving nitroglycerin. The patient reports he also has a headache that worsened after being given the nitroglycerin. He stated he did have a headache prior to the nitro but it was mild. He notes he has also had diarrhea for three days now and an intermittent fever of 101 degrees F. The patient states he followed up with his PCP after his last ED visit for chest pain and was told to go to his neurologist. He reports he did not have a stress test, and his last heart catheterization was 25 years ago. The patient denies alcohol use, trouble urinating, being around anyone sick, and recent antibiotic use. The patient states he is HIV positive, and a month ago he had a good CD4 count and an undetectable virus load. He reports his left leg started hurting this morning, and he has not had leg swelling. 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 Home Medications Home Medications Medication Instructions Recorded Confirmed Type Symbicort 2 puff INHALATION Q12H 06/08/18 07/09/19 History aspirin 81 mg PO QAM 06/08/18 07/09/19 History dronabinol [Marinol] 10 mg PO QAM 06/08/18 07/09/19 History fluticasone propionate [Flonase 2 spray INTRANASAL QAM PRN 06/08/18 07/09/19 History Allergy Relief] folic acid 1 mg PO QAM 06/08/18 07/09/19 History furosemide [Lasix] 20 mg PO QAM PRN 06/08/18 07/09/19 History gabapentin [Neurontin] 800 mg PO TID 08/25/18 07/09/19 History ipratropium-albuterol 3 ml INHALATION Q4H PRN 10/04/18 07/09/19 History omeprazole 20 mg PO DAILYBB 10/04/18 07/09/19 History ferrous sulfate [iron] 325 mg PO Q OTHER DAY 10/24/18 07/09/19 History levetiracetam [Keppra] 1,500 mg PO BID 10/24/18 07/09/19 History albuterol sulfate [Ventolin HFA] 2 puff INHALATION BID 11/14/18 07/09/19 History amlodipine [Norvasc] 5 mg PO QAM 11/14/18 07/09/19 History ondansetron 4 mg PO Q8H PRN 11/14/18 07/09/19 History Florastor 250 mg PO BID #20 cap 11/15/18 07/09/19 Rx darunavir ethanolate 600 mg tablet 600 mg PO BIDM #180 tab 02/09/19 07/09/19 Rx raltegravir 400 mg tablet 400 mg PO BID #180 tab 02/09/19 07/09/19 Rx ritonavir 100 mg tablet 100 mg PO BID #180 tab 02/09/19 07/09/19 Rx metoprolol succinate [Toprol XL] 50 mg PO QAM 04/07/19 07/09/19 History oxycodone [Roxicodone] 5 mg PO Q6H PRN 04/07/19 07/09/19 History warfarin [Jantoven] 5 mg PO QAM 04/07/19 07/09/19 History duloxetine [Cymbalta] 60 mg PO DAILY 05/21/19 07/09/19 History Allergies Allergy/AdvReac Type Severity Reaction Status Date / Time Penicillins Allergy Severe ANAPHYLAXIS Verified 07/09/19 12:20 niacin Allergy Intermediate RASH Verified 07/09/19 12:20 Sulfa (Sulfonamide Allergy Intermediate "ITCHY Verified 07/09/19 12:20 Antibiotics) RASH" tramadol Allergy Mild RASH Verified 07/09/19 12:20 azithromycin Allergy Unknown Verified 07/09/19 12:20 meloxicam AdvReac Intermediate GI SYMPTOMS Verified 07/09/19 12:20 shellfish derived AdvReac Intermediate gi symptoms Verified 07/09/19 12:20 topiramate AdvReac Intermediate NAUSEA Verified 07/09/19 12:20 Past Med/Surg History Medical History Anal dysplasia (Chronic) Anxiety (Chronic) AVM (arteriovenous malformation) brain (Chronic) Carotid artery stenosis (Chronic) Complete R ICA occlusion, L 50-59% Carotid stenosis (Chronic) "03/06/15-SAÚL occlusion, LICA with 50-59% stenosis" Chronic pain syndrome (Chronic) COPD (chronic obstructive pulmonary disease) (Chronic) COPD (chronic obstructive pulmonary disease) Depression (Chronic) DVT (deep venous thrombosis) (Chronic) Dyslipidemia (Chronic) History of alcohol abuse (Chronic) History of CVA (cerebrovascular accident) (Chronic) "in setting of right carotid artery thrombosis" HIV (human immunodeficiency virus infection) (Chronic) Hypertension (Chronic) Migraine (Chronic) Neuropathic pain of both feet (Chronic) Polyp of colon (Chronic 12/21/12) Rib fracture (Resolved) Seizure (Acute) Tobacco abuse (Chronic) Tobacco abuse (Chronic) Surgical History History of anal lesion (Chronic) History of colonoscopy (Chronic) Family History Father Lung cancer Mother Hypertension Social History Preferred Language: Turkmen Communication Ability: Effective Chaser Helper Required: No Beliefs That Will Affect Care: None marital status: Current Living Situation: Significant Other Feels Safe at Home: Yes Smoking Status: Current every day smoker Tobacco Type: cigarettes ; Cigarettes Per Day: 10 ; Second Hand Exposure: No ; Hx Alcohol Use: No Hx Substance Use: No Review of Systems See HPI for pertinent positives & negatives. and A total of 10 systems reviewed and were otherwise negative Physical Exam Vital Signs Vital Signs - 24 hr 07/09/19 11:42 07/09/19 11:54 07/09/19 12:07 Temperature 37.0 C Temperature Source Oral Pulse Rate 102 H 95 H 98 H Pulse Rate from SpO2 Sensor 97 H 98 H Pulse Rhythm Regular Respiratory Rate 16 17 15 Respiratory Effort / Characteristics Non-Labored Respiratory Depth Normal Respiratory Pattern Regular Blood Pressure 143/101 H 143/101 H Blood Pressure Mean 115 113 Pulse Oximetry 98 99 96 Oxygen Delivery Method Room Air Sepsis Recent Fever Within 48 Hours No Sepsis New/Unexplained Change in Mental Status No Sepsis Action Taken by Nursing No Action Required 07/09/19 12:57 07/09/19 13:00 07/09/19 13:39 Temperature Temperature Source Pulse Rate 90 87 Pulse Rate from SpO2 Sensor 95 H 87 Pulse Rhythm Respiratory Rate 20 15 13 Respiratory Effort / Characteristics Respiratory Depth Respiratory Pattern Blood Pressure 152/97 H Blood Pressure Mean 112 Pulse Oximetry 98 97 96 Oxygen Delivery Method Room Air Sepsis Recent Fever Within 48 Hours Sepsis New/Unexplained Change in Mental Status Sepsis Action Taken by Nursing 07/09/19 14:00 07/09/19 15:38 07/09/19 16:00 Temperature Temperature Source Pulse Rate 94 H 97 H 99 H Pulse Rate from SpO2 Sensor 91 H Pulse Rhythm Respiratory Rate 26 H 20 Respiratory Effort / Characteristics Respiratory Depth Respiratory Pattern Blood Pressure 152/85 H Blood Pressure Mean 101 Pulse Oximetry 97 Oxygen Delivery Method Sepsis Recent Fever Within 48 Hours Sepsis New/Unexplained Change in Mental Status Sepsis Action Taken by Nursing 07/09/19 16:13 07/09/19 16:14 07/09/19 17:00 Temperature Temperature Source Pulse Rate 108 H 107 H 98 H Pulse Rate from SpO2 Sensor Pulse Rhythm Respiratory Rate 17 20 17 Respiratory Effort / Characteristics Respiratory Depth Respiratory Pattern Blood Pressure 155/144 H 112/66 Blood Pressure Mean 152 91 Pulse Oximetry Oxygen Delivery Method Sepsis Recent Fever Within 48 Hours Sepsis New/Unexplained Change in Mental Status Sepsis Action Taken by Nursing 07/09/19 17:01 07/09/19 18:01 07/09/19 18:11 Temperature Temperature Source Pulse Rate 97 H 94 H 99 H Pulse Rate from SpO2 Sensor Pulse Rhythm Respiratory Rate 16 20 16 Respiratory Effort / Characteristics Respiratory Depth Respiratory Pattern Blood Pressure 104/72 Blood Pressure Mean 93 Pulse Oximetry Oxygen Delivery Method Sepsis Recent Fever Within 48 Hours Sepsis New/Unexplained Change in Mental Status Sepsis Action Taken by Nursing 07/09/19 18:12 Temperature Temperature Source Pulse Rate 101 H Pulse Rate from SpO2 Sensor Pulse Rhythm Respiratory Rate 17 Respiratory Effort / Characteristics Respiratory Depth Respiratory Pattern Blood Pressure Blood Pressure Mean Pulse Oximetry Oxygen Delivery Method Sepsis Recent Fever Within 48 Hours Sepsis New/Unexplained Change in Mental Status Sepsis Action Taken by Nursing Constitutional: Vital signs reviewed. Eyes: Pupils are equal round reactive to light. Conjunctiva are noninjected. ENT: Pharynx is clear without erythema or exudate. Mucous membranes are moist. Neck supple without meningeal signs. Respiratory: Clear to auscultation bilaterally. Breath sounds are equal bilaterally. Cardiovascular: Regular rate and rhythm. No rubs or gallops. GI: Soft, nondistended and nontender. Bowel sounds are present. Musculoskeletal: No peripheral edema. No lower extremity tenderness. Integumentary: No cyanosis. Neurological: The patient is awake and alert. Weakness to the left side of the body. He is unable to lift his left leg against gravity. 3/5 strength in the left upper extremity. Left facial weakness. Psychiatric: Normal affect. Course Course 1249: Past medical records reviewed. The patient was evaluated in room C12B. A complete history and physical exam was performed. 1457: The patient is agreeable to a CT of his chest and head. He is still having a headache. His chest pain is better. I discussed the treatment plan with the patient. He is in agreement. 1717: I reviewed the patient's case with Dr. Paul, [facility] Hospitalist. He will evaluate the patient for further management. Administered Medications Ioversol (Optiray 320 125ml) 119 ml IV ONCE PRN PRN Reason: Interaction Checking Stop: 07/13/19 15:30 Last Admin: 07/09/19 15:31 Dose: 119 ml Documented by: [id number] Discontinued Medications Fentanyl Citrate (Fentanyl Citrate) 50 mcg IV NOW STA Stop: 07/09/19 13:05 Last Admin: 07/09/19 13:48 Dose: 50 mcg Documented by: [id number] Sodium Chloride (Nss) 500 mls @ 999 mls/hr IV .Q31M OMAYRA Stop: 07/09/19 13:45 Last Infusion: 07/09/19 14:12 Dose: 0 mls/hr Documented by: [id number] Admin: 07/09/19 13:41 Dose: 999 mls/hr Documented by: [id number] Nitroglycerin (Nitro-Bid 2%) 0.5 inch EXT NOW STA Stop: 07/09/19 12:58 Last Admin: 07/09/19 13:47 Dose: 0.5 inch Documented by: [id number] Ondansetron HCl (Zofran) 4 mg IV NOW STA Stop: 07/09/19 13:05 Last Admin: 07/09/19 13:48 Dose: 4 mg Documented by: [id number] Medical Decision Making Differential Diagnosis Differential diagnosis includes: PE, DVT, unstable angina, AL, pneumonia, seizure disorder, medication noncompliance, influenza, UTI. Medical Records Attestation: I reviewed the patient's medical records. I did perform a limited focused review of portions of the patient's old chart on the electronic medical record. The patient was seen here on June [address] for chest pain. The CT of his head showed no stroke. He had a work-up here and was advised to stop smoking and was discharged home. In December, he was admitted for a PE and put on Coumadin. The patient was also admitted in May for chest pain. 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 Home Medications Current Medication List: was personally reviewed by me Laboratory Data Attestation: I reviewed the patient's lab results. Result diagrams: 07/09/19 11:15 07/09/19 11:15 Lab Results 07/09/19 07/09/19 07/09/19 Range/Units 11:15 11:15 11:15 WBC 12.14 H (4.8-10.8) K/uL RBC 5.35 (4.7-6.1) M/uL Hgb 14.2 (14.0-18.0) g/dL Hct 42.4 (42-52) % MCV 79.3 L (80-100) fL MCH 26.5 (25-34) pg MCHC 33.5 (32-36) g/dL RDW Std Deviation 42.0 (36.4-46.3) fL RDW Coeff of Tanesha 14.6 H (11.5-14.5) % Plt Count 284 (130-400) K/uL MPV 10.4 (7.4-10.4) fL Immature Gran % (Auto) 0.2 % Neut % (Auto) 61.4 % Lymph % (Auto) 25.2 % Cassia % (Auto) 10.3 % Eos % (Auto) 2.2 % Baso % (Auto) 0.7 % Immature Gran # (Auto) 0.03 H (0.00-0.02) K/uL Neut # (Auto) 7.45 H (1.4-6.5) K/uL Lymph # (Auto) 3.06 (1.2-3.4) K/uL Cassia # (Auto) 1.25 H (0.11-0.59) K/uL Eos # (Auto) 0.27 (0-0.5) K/uL Baso # (Auto) 0.08 (0-0.2) K/uL PT (9.0-12.0) Seconds INR (0.9-1.1) APTT (21.0-31.0) Seconds PTT Ratio Sodium 138 (136-145) mmol/L Potassium 4.0 (3.5-5.1) mmol/L Chloride 104 (98-107) mmol/L Carbon Dioxide 28 (21-32) mmol/L Anion Gap 6.0 (3-11) BUN 13 (7-18) mg/dl Creatinine 0.96 (0.6-1.4) mg/dl Est Cr Clr Drug Dosing 95.4 ml/min Est GFR ( Amer) 102.7 Est GFR (Non-Af Amer) 88.6 BUN/Creatinine Ratio 13.1 (10-20) Glucose 139 H (70-99) mg/dl Lactate (0.4-2.0) mmol/L Calcium 9.3 (8.5-10.1) mg/dl Total Bilirubin 0.3 (0.2-1) mg/dl AST 15 (15-37) U/L ALT 32 (12-78) U/L Alkaline Phosphatase 132 H (45-117) U/L Total Creatine Kinase 60 (39-308) U/L Troponin I < 0.015 (0-0.045) ng/ml Total Protein 7.6 (6.4-8.2) gm/dl Albumin 4.0 (3.4-5.0) gm/dl Globulin 3.6 (2.5-4.0) gm/dl Albumin/Globulin Ratio 1.1 (0.9-2) Lipase 94 (73-393) U/L TSH 0.923 (0.300-4.500) uIu/ml Influenza Type A (PCR) (Neg) Influenza Type B (PCR) (Neg) 07/09/19 07/09/19 07/09/19 Range/Units 13:51 14:02 14:02 WBC (4.8-10.8) K/uL RBC (4.7-6.1) M/uL Hgb (14.0-18.0) g/dL Hct (42-52) % MCV (80-100) fL MCH (25-34) pg MCHC (32-36) g/dL RDW Std Deviation (36.4-46.3) fL RDW Coeff of Tanesha (11.5-14.5) % Plt Count (130-400) K/uL MPV (7.4-10.4) fL Immature Gran % (Auto) % Neut % (Auto) % Lymph % (Auto) % Cassia % (Auto) % Eos % (Auto) % Baso % (Auto) % Immature Gran # (Auto) (0.00-0.02) K/uL Neut # (Auto) (1.4-6.5) K/uL Lymph # (Auto) (1.2-3.4) K/uL Cassia # (Auto) (0.11-0.59) K/uL Eos # (Auto) (0-0.5) K/uL Baso # (Auto) (0-0.2) K/uL PT 12.4 H (9.0-12.0) Seconds INR 1.2 H (0.9-1.1) APTT 27.2 (21.0-31.0) Seconds PTT Ratio 1.0 Sodium (136-145) mmol/L Potassium (3.5-5.1) mmol/L Chloride (98-107) mmol/L Carbon Dioxide (21-32) mmol/L Anion Gap (3-11) BUN (7-18) mg/dl Creatinine (0.6-1.4) mg/dl Est Cr Clr Drug Dosing ml/min Est GFR ( Amer) Est GFR (Non-Af Amer) BUN/Creatinine Ratio (10-20) Glucose (70-99) mg/dl Lactate 1.6 (0.4-2.0) mmol/L Calcium (8.5-10.1) mg/dl Total Bilirubin (0.2-1) mg/dl AST (15-37) U/L ALT (12-78) U/L Alkaline Phosphatase (45-117) U/L Total Creatine Kinase (39-308) U/L Troponin I (0-0.045) ng/ml Total Protein (6.4-8.2) gm/dl Albumin (3.4-5.0) gm/dl Globulin (2.5-4.0) gm/dl Albumin/Globulin Ratio (0.9-2) Lipase (73-393) U/L TSH (0.300-4.500) uIu/ml Influenza Type A (PCR) Neg for Influ A (Neg) Influenza Type B (PCR) Neg for Influ B (Neg) Imaging Data Radiologist's Impression: Radiology results as stated below per my review and the radiologist's interpretation: XR chest 2V PA/lateral HISTORY: 54 years-old Male CP/fever/HIV+ eval for pna acute chest pain with fever COMPARISON: Chest radiograph 06/25/2019 TECHNIQUE: AP and lateral views of the chest FINDINGS: Cardiomediastinal and hilar silhouettes are within normal limits. No pneumothorax, pleural effusion, focal airspace consolidation or overt pulmonary edema. The bones of the chest appear grossly intact. The patient is slightly rotated. IMPRESSION: No acute process. ACT 112: Negative or not required by law. The above report was generated using voice recognition software. It may contain grammatical, syntax or spelling errors. Electronically signed by: Khoa Trevizo M.D. 07/09/2019 3:[address] ANGIOGRAM OF THE CHEST CLINICAL HISTORY: Atypical chest pain. Dyspnea. COMPARISON STUDY: Chest CT scans dated 05/21/2019 and 10/25/2016. TECHNIQUE: Following the IV administration of 119 cc of Optiray 320, CT angiogram of the chest was performed from the upper abdomen to the thoracic inlet utilizing the pulmonary embolus protocol. Images are reviewed in the axial, sagittal, and coronal planes. 3-D MIPS images are created and assessed. IV contrast was administered without complication. A dose lowering technique w as utilized adhering to the principles of ALARA. The examination is degraded by streak artifact from the arms which could not be elevated above the chest. FINDINGS: Thyroid: Imaged portions of the thyroid gland are normal in size and attenuation. Thoracic aorta: There is mild ectasia of the ascending thoracic aorta which measures up to 3.8 cm in diameter. The remainder of the thoracic aorta is normal in caliber and the arch demonstrates standard 3-vessel anatomy. No dissection is seen. Pulmonary vasculature: The pulmonary trunk is mildly dilated measuring 3.1 cm in diameter. This suggests pulmonary artery hypertension. There are no filling defects identified in main, lobar, or segmental pulmonary branches to suggest pulmonary embolus. Heart: The heart is enlarged and without pericardial effusion. The coronary arteries are densely calcified. Lungs and pleural spaces: Mild emphysematous change is identified. There is no airspace consolidation or pleural effusion. The trachea and central airways are clear. Mild diffuse peribronchial thickening is observed. Scarring/atelectasis is noted at the lung bases. Mediastinum: There is no mediastinal lymphadenopathy. Ibeth: Clear. Axillae: There is no axillary lymphadenopathy. Upper abdomen: The liver is enlarged and steatotic. There is a small to moderate hiatal hernia. Skeletal structures: No lytic or blastic bony lesions are seen. There is mild thoracic scoliosis. IMPRESSION: 1. There is no evidence of pulmonary embolus in the main, lobar, or segmental pulmonary arteries. 2. Cardiomegaly and mild emphysema. 3. There is mild ectasia of the ascending thoracic aorta which measures up to 3.8 cm in diameter. No dissection is seen. 4. There is no airspace consolidation or pleural effusion. 5. Mild diffuse peribronchial thickening suggests bronchitis/reactive airway disease. Clinical correlation will be required. 6. Hepatic steatosis. 7. Additional findings as above. ACT 112: Negative or not required by law. Electronically signed by: Nico Guerra M.D. 07/09/2019 4:[address] head/brain wo con CLINICAL HISTORY: 54 years-old Male with fall/seizures eval for bleed. Acute head injury status post fall. History of seizures TECHNIQUE: Multiple axial CT images of the head were obtained without contrast. A dose lowering technique was utilized adhering to the principles of ALARA. CT DOSE: 1331.05 mGy.cm COMPARISON: Head CT 06/25/2019 FINDINGS: No acute intracranial hemorrhage, midline shift, intracranial mass, hydrocephalus, territorial ischemia or abnormal extra-axial collection. Encephalomalacia from remote MCA territorial infarct redemonstrated. Age-related involutional changes with ex vacuo ventriculomegaly. Patchy white matter hypodensities suggest chronic microvascular ischemic disease. The calvarium is intact. The paranasal sinuses, mastoid air cells, and middle ear cavities are clear. IMPRESSION: Chronic findings as above without acute process. ACT 112: Negative or not required by law. The above report was generated using voice recognition software. It may contain grammatical, syntax or spelling errors. Electronically signed by: Khoa Trevizo M.D. 07/09/2019 3:45 PM ECG Data Attestation: I personally reviewed and interpreted this ECG as follows: Indication: + chest pain Rate (beats per minute): 99 Rhythm: + normal sinus ECG Intervals/blocks: + Normal QRS ECG ST segments: no ST elevation ECG Findings: no PVCs Blood Pressure Blood Pressure Findings: Elevated blood pressure Blood Pressure Disposition: further management by hospitalist Head Trauma GCS Score: 15 MDM Narrative I did evaluate the patient as noted above. The patient is presenting after multiple seizures. He has been having increased seizures over the past week and was just recently increased to 3000 mg of Keppra twice daily. He had 2 seizures yesterday and one this morning. They were witnessed by his . The patient also complains of chest pain and has a history of pulmonary embolism. He is on warfarin. He also states that he has had a fever and he is HIV positive although well controlled with medications. IV access was established. I treated patient with nitroglycerin paste. She was also given normal saline IV and fentanyl and Zofran IV. The patient was placed on a continuous monumental stonemason. I did order and personally review the patient's 12- lead EKG as described above. His twelve-lead EKG does not demonstrate any acute ischemia. I did order and personally reviewed the images of the patient's chest x-ray as described above. Chest x-ray does not demonstrate any evidence of pneumonia. I did order and review the patient's blood work as noted in the electronic medical record. His white count is 12,000. He is not anemic. Electrolytes are unremarkable. Troponin is negative. INR is subtherapeutic at 1.2. TSH is unremarkable. Influenza PCR is negative. Because the patient is not fully anticoagulated with an INR 1.[address] scanning of the chest. Also because he had a headache after falling off the sofa and is on Coumadin I did recommend CT of the head. He was agreeable. I did order a CT of the head and CT angiogram of the chest. I did review the images myself as well as the radiology report as described above. He has no acute intracranial process. There is no evidence of pulmonary embolism or consolidation. He does have signs of peribronchial thickening consistent with a bronchitis. I did discuss the test results with the patient. I did recommend hospitalization for neurologic consultation and further care and evaluation. I did discuss the case with the hospitalist and director of casework department. Impression & Plan Left-sided chest pain, Subtherapeutic international normalized ratio (INR), HIV positive, Bronchitis, Seizures, Head injury Discharge Plan Visit Data Chief Complaint: Cardiac Assessment Stated Complaint: CHEST TIGHTNESS, L SIDE FACE & ARM NUMBNESS ED Provider: Hector Richardson Discharge Problem: Left-sided chest pain, Subtherapeutic international normalized ratio (INR), HIV positive, Bronchitis, Seizures, Head injury Patient Disposition: Being Evaluated by Hospitalist Discharge Instructions Interventions: ED Discharge Assessment Last Done: 07/09/19 19:09 Discharge Problem: Head injury Qualifiers: Encounter type: initial encounter Qualified Code(s): S09.90XA - Unspecified injury of head, initial encounter The scribe's documentation has been prepared under my direction and personally reviewed by me in its entirety. I confirm that the note above accurately reflects all work, treatment, procedures, and medical decision making performed by me.
[2019-07-09] MEDS ORDERED: INFLUENZA VIRUS QUAD VACCINE 0.5 ML SYR IM ONE (20:30)
[2019-07-09] MEDS ORDERED: PNEUMOCOCCAL POLYSACCHARIDES 25 MCG/0.5 ML VIAL/SYR IM ONE (20:30)
[2019-07-09] MEDS ORDERED: INFLUENZA ADMINISTRATION CHARGE ONE (20:30)
[2019-07-09] MEDS ORDERED: PNEUMOCOCCAL ADMINISTRATION CHARGE ONE (20:30)
[2019-07-09 20:52] LABS: Appearance Urine Clear (Clear); Bilirubin Urine Negative (Negative); Blood Urine Negative (Negative); Color Urine Yellow; Glucose Urine UA Negative (Negative); Ketones Urine Negative (Negative); Leukocyte Esterase Urine Negative (Negative); Nitrite Urine Negative (Negative); Protein Urine Negative (Negative); Specific Gravity Urine > 1.045 (1.000-1.030); Urobilinogen Urine Negative (Negative)
[2019-07-09] MEDS: levETIRAcetam 500 MG TAB PO SCH (21:08)
[2019-07-09] MEDS: RALTEGRAVIR POTASSIUM 400 MG TAB PO SCH (21:09)
[2019-07-09] MEDS: RITONAVIR 100 MG TAB PO SCH (21:09)
[2019-07-09] MEDS: HEPARIN SOD 5,000 UNIT/0.5 ML VIAL SQ SCH (21:10)
[2019-07-09] MEDS ORDERED: MoRPHine SULFATE 4 MG/ML 1 ML CARP\\VIAL IV STA (21:27)
[2019-07-09] MEDS ORDERED: GABAPENTIN 600 MG TAB PO STA (21:27)
[2019-07-10] MEDS ORDERED: OXYCODONE HCL IR 5 MG TAB (IMMEDIATE RELEASE) PO STA (02:00)
[2019-07-10] MEDS ORDERED: OXYCODONE HCL IR 5 MG TAB (IMMEDIATE RELEASE) ONE (02:06)
[2019-07-10] MEDS ORDERED: GABAPENTIN 100 MG CAP PO STA (02:23)
[2019-07-10] MEDS ORDERED: GABAPENTIN 800 MG TAB PO ONE (07:00)
[2019-07-10] MEDS: PANTOprazole 40 MG TAB PO SCH (07:26)
[2019-07-10] MEDS: HEPARIN SOD 5,000 UNIT/0.5 ML VIAL SQ SCH ×3 (07:28→22:04)
--- NOTE | 2019-07-10 08:23 | Ultrasound Report ---
BILATERAL LOWER EXTREMITY VENOUS DOPPLER HISTORY: history of DVT in 2019 COMPARISON STUDY: None. FINDINGS: There is normal compressibility, flow, and augmentation within the bilateral lower extremit y deep venous systems. The distal right superficial femoral artery and popliteal artery are occluded. There is collateral flow identified resulting in low velocity monophasic waveforms within the calf v essels. IMPRESSION: No DVT within the right or left lower extremity. The distal right superficial femoral artery and popl iteal artery are occluded with collateral flow extending into the calf vessels. This is likely chroni c. ACT 112: Negative or not required by law. Electronically signed by: Philip Hair M.D. 07/10/2019 8:21 AM
[2019-07-10] MEDS: levETIRAcetam 500 MG TAB PO SCH ×2 (09:52→20:15)
[2019-07-10] MEDS: DULOXETINE HCL 60 MG CAP PO SCH (09:53)
[2019-07-10] MEDS: DARUNAVIR ETHANOLATE 600 MG TAB PO SCH ×2 (09:53→16:27)
[2019-07-10] MEDS: RALTEGRAVIR POTASSIUM 400 MG TAB PO SCH ×2 (09:53→20:16)
[2019-07-10] MEDS: RITONAVIR 100 MG TAB PO SCH ×2 (09:53→20:17)
[2019-07-10] MEDS: METOPROLOL SUCC 50MG EXT REL TAB PO SCH (09:54)
[2019-07-10] MEDS: FOLIC ACID 1 MG TAB PO SCH (09:54)
[2019-07-10] MEDS: ASPIRIN 81 MG ECTAB PO SCH (09:54)
[2019-07-10] MEDS: AMLODIPINE BESYLATE 5 MG TAB PO SCH (09:54)
[2019-07-10] MEDS: FLUTICASONE/VILANTEROL 100/25MCG 14 PUFFS/INHALER INH SCH (09:55)
--- NOTE | 2019-07-10 11:50 | Infectious Disease Consult ---
Date of Consultation July 10, 2019 Assessment & Plan (1) Human immunodeficiency virus (HIV) disease: continue HAART at current dosing. will plan to follow as planned post d/c. CD4 in May > 200, ct head negative, doubt OI as cause for seizure. will repeat cd4 if not done already. History of Present Illness Attending Physician: Jabier Paul MD pt admitted with seizure, neuro following. ct head negative. has h/o HIV, last seen in December. ID asked to review HAART. He states he is taking his meds, does not need refills. no missed doses. last labs done in 05/21/19 - cd4 473, viral load 58 (improved from previous). feeling good currently no carey, no visual changes, no f/c. no cp, sob, cough, contreras, no abd pain, no n/v/d. Allergies Allergy/AdvReac Type Severity Reaction Status Date / Time Penicillins Allergy Severe ANAPHYLAXIS Verified 07/09/19 12:20 niacin Allergy Intermediate RASH Verified 07/09/19 12:20 Sulfa (Sulfonamide Allergy Intermediate "ITCHY Verified 07/09/19 12:20 Antibiotics) RASH" tramadol Allergy Mild RASH Verified 07/09/19 12:20 azithromycin Allergy Unknown Verified 07/09/19 12:20 meloxicam AdvReac Intermediate GI SYMPTOMS Verified 07/09/19 12:20 shellfish derived AdvReac Intermediate gi symptoms Verified 07/09/19 12:20 topiramate AdvReac Intermediate NAUSEA Verified 07/09/19 12:20 Home Medications Home Medications Medication Instructions Recorded Confirmed Type Symbicort 2 puff INHALATION Q12H 06/08/18 07/09/19 History aspirin 81 mg PO QAM 06/08/18 07/09/19 History dronabinol [Marinol] 10 mg PO QAM 06/08/18 07/09/19 History fluticasone propionate [Flonase 2 spray INTRANASAL QAM PRN 06/08/18 07/09/19 History Allergy Relief] folic acid 1 mg PO QAM 06/08/18 07/09/19 History furosemide [Lasix] 20 mg PO QAM PRN 06/08/18 07/09/19 History gabapentin [Neurontin] 800 mg PO TID 08/25/18 07/09/19 History ipratropium-albuterol 3 ml INHALATION Q4H PRN 10/04/18 07/09/19 History omeprazole 20 mg PO DAILYBB 10/04/18 07/09/19 History ferrous sulfate [iron] 325 mg PO Q OTHER DAY 10/24/18 07/09/19 History levetiracetam [Keppra] 1,500 mg PO BID 10/24/18 07/09/19 History albuterol sulfate [Ventolin HFA] 2 puff INHALATION BID 11/14/18 07/09/19 History amlodipine [Norvasc] 5 mg PO QAM 11/14/18 07/09/19 History ondansetron 4 mg PO Q8H PRN 11/14/18 07/09/19 History Florastor 250 mg PO BID #20 cap 11/15/18 07/09/19 Rx darunavir ethanolate 600 mg tablet 600 mg PO BIDM #180 tab 02/09/19 07/09/19 Rx raltegravir 400 mg tablet 400 mg PO BID #180 tab 02/09/19 07/09/19 Rx ritonavir 100 mg tablet 100 mg PO BID #180 tab 02/09/19 07/09/19 Rx metoprolol succinate [Toprol XL] 50 mg PO QAM 04/07/19 07/09/19 History oxycodone [Roxicodone] 5 mg PO Q6H PRN 04/07/19 07/09/19 History warfarin [Jantoven] 5 mg PO QAM 04/07/19 07/09/19 History duloxetine [Cymbalta] 60 mg PO DAILY 05/21/19 07/09/19 History Patient History Medical History Anal dysplasia (Chronic) Anxiety (Chronic) AVM (arteriovenous malformation) brain (Chronic) Carotid artery stenosis (Chronic) Complete R ICA occlusion, L 50-59% Carotid stenosis (Chronic) "03/06/15-SAÚL occlusion, LICA with 50-59% stenosis" Chronic pain syndrome (Chronic) COPD (chronic obstructive pulmonary disease) (Chronic) COPD (chronic obstructive pulmonary disease) Depression (Chronic) DVT (deep venous thrombosis) (Chronic) Dyslipidemia (Chronic) History of alcohol abuse (Chronic) History of CVA (cerebrovascular accident) (Chronic) "in setting of right carotid artery thrombosis" HIV (human immunodeficiency virus infection) (Chronic) Hypertension (Chronic) Migraine (Chronic) Neuropathic pain of both feet (Chronic) Polyp of colon (Chronic 12/21/12) Rib fracture (Resolved) Seizure (Inactive) Tobacco abuse (Chronic) Tobacco abuse (Chronic) Surgical History History of anal lesion (Chronic) History of colonoscopy (Chronic) Family History Father Lung cancer Mother Hypertension Social History Preferred Language: Dominican Communication Ability: Effective Loss Prevention Detective Required: No Beliefs That Will Affect Care: None marital status: Current Living Situation: Significant Other Other Information That Helps Us Care for You: No Feels Safe at Home: Yes Safety Concerns: Feels Safe At This Time Smoking Status: Current every day smoker Tobacco Type: cigarettes ; Cigarettes Per Day: 10 ; Do You Dip or Chew Tobacco: No ; Second Hand Exposure: No ; Hx Alcohol Use: No Hx Substance Use: No Review of Systems Review of Systems: All systems reviewed & are unremarkable except as noted in HPI & below Physical Exam Constitutional: WD/WN, vitals as above Eyes: PERRL, conjunctivae normal, anicteric sclerae ENMT: external ear and nose normal, oropharynx normal Neck: normal visual inspection Respiratory: normal respiratory effort, lungs clear to auscultation Cardiovascular: RRR, no murmur, no edema Gastrointestinal (Abdomen): normal bowel sounds, soft, nontender, no hepatosplenomegaly Musculoskeletal: no cyanosis or clubbing, extremities motor strength 5/5 Skin: no rashes, warm and dry Psychiatric: A+Ox3, euthymic affect Results & Data Vital Signs (Past 12 Hours) Vital Signs Temp Pulse Pulse Resp BP Pulse Ox 07/10/19 11:23 36.8 C 74 16 132/84 97 07/10/19 07:47 67 07/10/19 07:29 36.6 C 77 16 124/70 97 07/10/19 02:50 36.4 C L 72 19 142/79 H 94 07/10/19 00:00 74 PG Care Time/CCT Total # of Minutes Spent Total Time Spent with Patient: Total time spent is greater than 50% in coordination of care (as documented) at patient's floor/unit and/or counseling patient: Coding Level of Care Code 62647 Inpt Consult Level 4 Diagnoses Human immunodeficiency virus (HIV) disease B20
[2019-07-10] MEDS: OXYCODONE HCL IR 5 MG TAB (IMMEDIATE RELEASE) PO PRN ×2 (13:08→20:18)
[2019-07-10] MEDS: GABAPENTIN 800 MG TAB PO SCH ×2 (14:48→20:17)
--- NOTE | 2019-07-10 15:29 | Neurology Consultation ---
Date of Consultation July 10, 2019 Assessment & Plan (1) Seizures: 1. continue gabapentin 800 mg TID- need to watch renal function 2. continue Keppra 1500 mg BID 3. will start Vimpat 100 mg BID will reassess after 72 hour EEG is completed 4. out patient 72 hour EEG - willing to go to [place] for evaluation 5. follow up with PCP for medical management and ID for HIV management 6. fall precautions and seizure precautions 7. PT/OT for any discharge needs (2) Neuropathic pain of both feet: Supervising Physician Co-Signing Physician Notes Patient was seen and examined. at bedside. Agree wiht Wen Acharya As noted below. A 54 year old male with presumed symptomatic focal seizures secondary to chronic right MCA infarct with known right ICA occlusion admitted for posible breakthrough seizures described as left leg jerking. Episodes can occur while sleeping. No video evidence available. He is on Keppra 1500 mg BID and reports compliance. 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 On examine he has left hemiparesis (lower>upper) with left sided spasticity. Episodes of involuntary leg shaking concerning for focal motor seizure. Routine EEG reviewed and shows continuous focal slowing on the right consistent with prior stroke. No epileptiform discharges or seizures. Recommend to add Vimpat 100 mg BID. Recommend outpatient ambulatory EEG for spell characterization. Follow up in Neurology clinic as outpatient. History of Present Illness Reason for Consultation: seizure vs pseudoseizure Requesting Physician: Jabier Paul MD Attending Physician: Jabier Paul MD History of Present Illness Dion is a 54 year old male with 2 episodes of seizures and the one at 9 AM on 07/09/2019 was witnessed by his who called the ambulance. He has a history left sided weakness with minimal movement in the LLE. He states his"seizures" are happening more frequently in the past and that since being discharged in May 2020 his Keppra was increased to 1500 mg BID and states he has not skipped any doses. His partner states the left leg jerking usually happens at night and actually will wake him. It will suddenly flail and he is unable to control it. When he has the seizures he does not have alot of confusion afterward but is completely fatigued for a day. He reported that recently he had 1 episode last night when he fell out of the bed and the one at 9 AM occurred and he fell off the couch and that his saw him a few seconds of LOC. -CT head on this admission on 07/09/2019: No acute intracranial hemorrhage, midline shift, intracranial mass, hydrocephalus, territorial ischemia or abnormal extra-axial collection. Encephalomalacia from remote MCA territorial infarct re demonstrated. Age-related involutional changes with ex vacuo ventriculomegaly. Patchy white matter hypodensities suggest chronic microvascular ischemic disease. he had an EEG which will be reviewed by Dr Finnegan, casey CP, SOB, abdominal pain, new one sided weakness, N, V, swallowing issues, new bowel or bladder issues. Allergies Allergy/AdvReac Type Severity Reaction Status Date / Time Penicillins Allergy Severe ANAPHYLAXIS Verified 07/09/19 12:20 niacin Allergy Intermediate RASH Verified 07/09/19 12:20 Sulfa (Sulfonamide Allergy Intermediate "ITCHY Verified 07/09/19 12:20 Antibiotics) RASH" tramadol Allergy Mild RASH Verified 07/09/19 12:20 azithromycin Allergy Unknown Verified 07/09/19 12:20 meloxicam AdvReac Intermediate GI SYMPTOMS Verified 07/09/19 12:20 shellfish derived AdvReac Intermediate gi symptoms Verified 07/09/19 12:20 topiramate AdvReac Intermediate NAUSEA Verified 07/09/19 12:20 Home Medications Home Medications Medication Instructions Recorded Confirmed Type Symbicort 2 puff INHALATION Q12H 06/08/18 07/09/19 History aspirin 81 mg PO QAM 06/08/18 07/09/19 History dronabinol [Marinol] 10 mg PO QAM 06/08/18 07/09/19 History fluticasone propionate [Flonase 2 spray INTRANASAL QAM PRN 06/08/18 07/09/19 History Allergy Relief] folic acid 1 mg PO QAM 06/08/18 07/09/19 History furosemide [Lasix] 20 mg PO QAM PRN 06/08/18 07/09/19 History gabapentin [Neurontin] 800 mg PO TID 08/25/18 07/09/19 History ipratropium-albuterol 3 ml INHALATION Q4H PRN 10/04/18 07/09/19 History omeprazole 20 mg PO DAILYBB 10/04/18 07/09/19 History ferrous sulfate [iron] 325 mg PO Q OTHER DAY 10/24/18 07/09/19 History levetiracetam [Keppra] 1,500 mg PO BID 10/24/18 07/09/19 History albuterol sulfate [Ventolin HFA] 2 puff INHALATION BID 11/14/18 07/09/19 History amlodipine [Norvasc] 5 mg PO QAM 11/14/18 07/09/19 History ondansetron 4 mg PO Q8H PRN 11/14/18 07/09/19 History Florastor 250 mg PO BID #20 cap 11/15/18 07/09/19 Rx darunavir ethanolate 600 mg tablet 600 mg PO BIDM #180 tab 02/09/19 07/09/19 Rx raltegravir 400 mg tablet 400 mg PO BID #180 tab 02/09/19 07/09/19 Rx ritonavir 100 mg tablet 100 mg PO BID #180 tab 02/09/19 07/09/19 Rx metoprolol succinate [Toprol XL] 50 mg PO QAM 04/07/19 07/09/19 History oxycodone [Roxicodone] 5 mg PO Q6H PRN 04/07/19 07/09/19 History warfarin [Jantoven] 5 mg PO QAM 04/07/19 07/09/19 History duloxetine [Cymbalta] 60 mg PO DAILY 05/21/19 07/09/19 History Patient History Medical History Anal dysplasia (Chronic) Anxiety (Chronic) AVM (arteriovenous malformation) brain (Chronic) Carotid artery stenosis (Chronic) Complete R ICA occlusion, L 50-59% Carotid stenosis (Chronic) "03/06/15-SAÚL occlusion, LICA with 50-59% stenosis" Chronic pain syndrome (Chronic) COPD (chronic obstructive pulmonary disease) (Chronic) COPD (chronic obstructive pulmonary disease) Depression (Chronic) DVT (deep venous thrombosis) (Chronic) Dyslipidemia (Chronic) History of alcohol abuse (Chronic) History of CVA (cerebrovascular accident) (Chronic) "in setting of right carotid artery thrombosis" HIV (human immunodeficiency virus infection) (Chronic) Hypertension (Chronic) Migraine (Chronic) Neuropathic pain of both feet (Chronic) Polyp of colon (Chronic 12/21/12) Rib fracture (Resolved) Seizure (Inactive) Tobacco abuse (Chronic) Tobacco abuse (Chronic) Surgical History History of anal lesion (Chronic) History of colonoscopy (Chronic) Family History Father Lung cancer Mother Hypertension Social History Preferred Language: Turkish Communication Ability: Effective Bracelet And Brooch Maker Required: No Beliefs That Will Affect Care: None marital status: Current Living Situation: Significant Other Other Information That Helps Us Care for You: No Feels Safe at Home: Yes Safety Concerns: Feels Safe At This Time Smoking Status: Current every day smoker Tobacco Type: cigarettes ; Cigarettes Per Day: 10 ; Do You Dip or Chew Tobacco: No ; Second Hand Exposure: No ; Hx Alcohol Use: No Hx Substance Use: No Physical Exam Physical Exam: Physical Exam: Constitutional: appearance over nourished, healthy Ears, Nose, Mouth and Throat: mucous membranes moist, no injection and skin normal, eyes normal Cardiovascular: normal S-1 and S-2 and regular rate and rhythm Respiratory: course breath sounds Musculoskeletal: no peripheral edema Skin: no stigmata of neurocutaneous disease noted and normal and intact Eyes: extraocular muscles intact (EOMI) and pupils equal, round and reactive to light (PERRL) NEUROLOGIC EXAMINATION: Mental status: Alert and interactive Oriented to full date and location Oriented to person Speech fluent with no evidence of aphasia Cranial Nerves slight flattening nasolabial fold on left Reflexes: Deep tendon reflexes were symmetrical and graded 2/5. Sensory: decreased sensation to light and cool touch bilaterally LE Coordination: finger to nose on right no bi pass, unable to lift left Gait/Stance: Posture normal. Gait not assessed Strength: biceps triceps hand death claim clerk right 5/5, left 3/5 hip flex plantar flex ext right 5/5, left hip flex 4/5, plantar flex ext 0/5 Results & Data Vital Signs (Past 12 Hours) Vital Signs Temp Pulse Pulse Resp BP Pulse Ox 07/10/19 15:02 36.3 C L 78 18 105/63 93 07/10/19 11:23 36.8 C 74 16 132/84 97 07/10/19 07:47 67 07/10/19 07:29 36.6 C 77 16 124/70 97 Laboratory Results Abnormal lab results 07/09/19 Range/Units 20:03 Ur Specific Widener > 1.045 H (1.000-1.030) Diagnostic Findings venous doppler-No DVT within the right or left lower extremity. 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 This is likely chronic. CT head-Chronic findings as above without acute process. CTA chest-here is no evidence of pulmonary embolus in the main, lobar, or segmental pulmonary arteries. Cardiomegaly and mild emphysema. There is mild ectasia of the ascending thoracic aorta which measures up to 3.8 cm in diameter. No dissection is seen. There is no airspace consolidation or pleural effusion. Mild diffuse peribronchial thickening suggests bronchitis/reactive airway disease. Hepatic steatosis. CXR-Cardiomediastinal and hilar silhouettes are within normal limits. No pneumothorax, pleural effusion, focal airspace consolidation or overt pulmonary edema. The bones of the chest appear grossly intact. The patient is slightly rotated.
[2019-07-10] MEDS: NICOTINE 7 MG/24 HR TDSY TD SCH (16:24)
--- NOTE | 2019-07-10 16:46 | Hospitalist Progress Note ---
Date of Service July 10, 2019 Assessment & Plan (1) Seizure: SEIZURE VERSUS PSEUDOSEIZURE History of stroke in the past -this is a patient with multiple previous neurological workups in the past -as per EMS notes, patient may have had 2 episodes of seizures and the one at 9 AM on 07/09/2019 was witnessed by patient's male partner who called the ambulance. History is mostly from the patient as his male partner is not present in the hospital and did not accompany the patient here. patient reports that at baseline because of history of stroke, he has left sided upper extremity weakness and really cannot move his left leg at all. However, he reports that his "seizures" are happening more frequently in the past and that since being discharged in May 2020 with brenna Lopez he could not get a neurology appointment until August 2019 with [facility] neurology group. Patient reports that the seizure like activity primarily affects the left side and what is more unusual to him him that they involve his left leg jerking. He reported that recently he had 1 episode last night when he fell out of the bed and the one at 9 AM occurred and he fell off the couch and that his male partner saw him lose consciousness for a few seconds. EMS notes reported associated complaints of chest tightness and shortness of breath. patient also though he had a fever of 101 F yesterday night -in the ED, the patient did not appear to have any post-ictal symptoms. he is comfortable and answers all questions appropriately. speaking well and no dysarthria afebrile. no current discomforts.no chest pain. no shortness of breath. breathing on room air. no dizziness. no lightheadedness. no headache. no nausea. no vomiting. no incontinence reported no changes to baseline left sided weakness. -CT head on this admission on 07/09/2019: No acute intracranial hemorrhage, midline shift, intracranial mass, hydrocephalus, territorial ischemia or abnormal extra-axial collection. Encephalomalacia from remote MCA territorial infarct redemonstrated. Age-related involutional changes with ex vacuo ventricul omegaly. Patchy white matter hypodensities suggest chronic microvascular ischemic disease -as per nurse, patient passed dysphagia screening -at this time no acute lab electrolyte abnormalities or acute EKG changes -normal urine analysis and no pneumonia noted on chest X ray, blood cultures pending, hospitalist would not start any empiric antibiotics at this time until it is more clear that patient has fever during hospital stay or clinical signs of acute infection -discussed with on admission neurology Dr. Finnegan that is not clear to hospital doctor whether patient has unusual epileptic discharges at home that would indicate seizure versus pseudoseizure -continue Keppra 1500 mg BID, follow Keppra levels taken on admission -start Vimpat (lacosamide) 100 mg BID as per neurology -Brain MRI seizure protocol pending -EEG results pending -neurology plans to do extended EEG monitoring as outpatient -no acute telemetry events currently, continue to monitor on telemetry -PT/OT evaluations, case management consult for discharge needs when hospital workup completed History in DVT in the past -left lower extremity DVT diagnosed in 09/2018 -CTA on this admission in 07/09/2019: There is no evidence of pulmonary embolus in the main, lobar, or segmental pulmonary arteries. Cardiomegaly and mild emphysema. There is mild ectasia of the ascending thoracic aorta which measures up to 3.8 cm in diameter. No dissection is seen. There is no airspace consolidation or pleural effusion. Mild diffuse peribronchial thickening suggests bronchitis/reactive airway disease. Hepatic steatosis -chart review has shown previous hospitalist write history of pulmonary embolism but CTA scans in 2018 and 2017 at [facility] does not show evidence of pulmonary embolism -patient has chronically been on warfarin, INR on 07/09/2019 is subtherapeutic -ultrasound of lower extremities 07/10/2019: No DVT within the right or left lower extremity. 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 This is likely chronic. -on heparin subcutaneous q8 hours, will resume coumadin Hypertension -blood pressure stable -continue home dose amlodipine of 5 mg daily Carotid artery stenosis: -Continue aspirin 81 mg daily Chronic pain syndrome / Neuropathy -continue home dose duloxetine -continue continue gabapentin 800 mg TID and marinol and prn pain medications COPD (chronic obstructive pulmonary disease): -Cont home symbicort (2) HIV (human immunodeficiency virus infection): -Continue Prezista 600 mg twice daily, ritonavir 100 mg twice a day, and Isentress 400 mg twice a day -continue folic acid -normal levels of B12 levels, folic acid levels, TSH Full Code Subjective left upper extremity weakness chronic. patient able to lift left lower extremity slightly above the bed. no acute events on telemetry. patient reports some "twitches" of the left leg yesterday night but not the same as per the episodes at home. no headache. no dizziness. no nausea. no vomiting. no abdominal pain. no chest pain. no palpitations Review of Systems Review of Systems: All systems reviewed & are unremarkable except as noted in HPI & below Physical Exam Constitutional: cooperative and comfortable Eyes: PERRL, conjunctivae normal, anicteric sclerae EOM intact bilaterally ENMT: external ear and nose normal, oropharynx normal Neck: normal visual inspection Respiratory: normal respiratory effort, lungs clear to auscultation Cardiovascular: Rate/Rhythm: regular rate and regular rhythm Gastrointestinal (Abdomen): normal bowel sounds, soft, nontender, no hepatosplenomegaly Musculoskeletal: Head/Neck/Chest: normocephalic and head atraumatic Neurologic: PERRL, EOMI, accommodation nl, no face palsy, no dysarthria left upper extremity weakness chronic. patient able to lift left lower extremity slightly above the bed. Psychiatric: A+Ox3, euthymic affect Results & Data Vital Signs (Past 12 Hours) Vital Signs Temp Pulse Pulse Resp BP Pulse Ox 07/10/19 15:22 74 07/10/19 15:02 36.3 C L 78 18 105/63 93 07/10/19 11:23 36.8 C 74 16 132/84 97 07/10/19 07:47 67 07/10/19 07:29 36.6 C 77 16 124/70 97 (1) HIV (human immunodeficiency virus infection) HIV symptom status: unspecified Qualified Code(s): B20 - Human immunodeficiency virus [HIV] disease
[2019-07-10] MEDS ORDERED: WARFARIN SOD 5 MG TAB PO ONE (16:53)
--- NOTE | 2019-07-10 17:22 | Electroencephalogram ---
EEG Procedure Note Date of Service July 10, 2019 Start / End Times Start Time: 07:00 End Time: 07:[address] Jabier Paul History A 54 year old male with history of seizures and prior right MCA stroke. EEG performed for evaluation of epileptiform activity. Home Medication List Home Medications Medication Instructions Recorded Confirmed Type Symbicort 2 puff INHALATION Q12H 06/08/18 07/09/19 History aspirin 81 mg PO QAM 06/08/18 07/09/19 History dronabinol [Marinol] 10 mg PO QAM 06/08/18 07/09/19 History fluticasone propionate [Flonase 2 spray INTRANASAL QAM PRN 06/08/18 07/09/19 History Allergy Relief] folic acid 1 mg PO QAM 06/08/18 07/09/19 History furosemide [Lasix] 20 mg PO QAM PRN 06/08/18 07/09/19 History gabapentin [Neurontin] 800 mg PO TID 08/25/18 07/09/19 History ipratropium-albuterol 3 ml INHALATION Q4H PRN 10/04/18 07/09/19 History omeprazole 20 mg PO DAILYBB 10/04/18 07/09/19 History ferrous sulfate [iron] 325 mg PO Q OTHER DAY 10/24/18 07/09/19 History levetiracetam [Keppra] 1,500 mg PO BID 10/24/18 07/09/19 History albuterol sulfate [Ventolin HFA] 2 puff INHALATION BID 11/14/18 07/09/19 History amlodipine [Norvasc] 5 mg PO QAM 11/14/18 07/09/19 History ondansetron 4 mg PO Q8H PRN 11/14/18 07/09/19 History Florastor 250 mg PO BID #20 cap 11/15/18 07/09/19 Rx darunavir ethanolate 600 mg tablet 600 mg PO BIDM #180 tab 02/09/19 07/09/19 Rx raltegravir 400 mg tablet 400 mg PO BID #180 tab 02/09/19 07/09/19 Rx ritonavir 100 mg tablet 100 mg PO BID #180 tab 02/09/19 07/09/19 Rx metoprolol succinate [Toprol XL] 50 mg PO QAM 04/07/19 07/09/19 History oxycodone [Roxicodone] 5 mg PO Q6H PRN 04/07/19 07/09/19 History warfarin [Jantoven] 5 mg PO QAM 04/07/19 07/09/19 History duloxetine [Cymbalta] 60 mg PO DAILY 05/21/19 07/09/19 History Inpatient Medication List Acetaminophen (Tylenol) 325 mg PO Q6H PRN PRN Reason: pain of fever Stop: 08/08/19 18:14 Last Admin: 07/10/19 00:00 Dose: 325 mg Documented by: [id number] [facility]) [facility] [place]: 08/09/19 08:59 Last Admin: 07/10/19 09:54 Dose: 5 mg Documented by: [id number] Aspirin (Ecotrin Ectab) [facility] [place] Stop: 08/09/19 08:59 Last Admin: 07/10/19 09:54 Dose: 81 mg Documented by: [id number] Darunavir (Prezista) 600 mg PO BIDM [facility] Stop: 08/09/19 07:59 Last Admin: 07/10/19 16:27 Dose: 600 mg Documented by: [id number] Admin: 07/10/19 09:53 Dose: 600 mg Documented by: [id number] Duloxetine HCl (Cymbalta) 60 mg PO DAILY [facility] Stop: 08/09/19 08:59 Last Admin: 07/10/19 09:53 Dose: 60 mg Documented by: [id number] Fluticasone/Vilanterol (Breo Ellipta 100/25 Mcg Inh) 1 puffs INH DAILY [facility]; Protocol Stop: 08/09/19 08:59 Last Admin: 07/10/19 09:55 Dose: 1 puffs Documented by: [id number] Folic Acid (Folvite) 1 mg PO QAM [facility] Stop: 08/09/19 08:59 Last Admin: 07/10/19 09:54 Dose: 1 mg Documented by: [id number] Gabapentin (Neurontin) 800 mg PO TID [facility] Stop: 08/09/19 13:59 Last Admin: 07/10/19 14:48 Dose: 800 mg Documented by: [id number] Heparin Sodium (Porcine) (Heparin Sodium (Porcine)) 5,000 units SQ Q8 [facility] Stop: 08/08/19 21:59 Last Admin: 07/10/19 14:48 Dose: 5,000 units Documented by: [id number] Cosigned by: [id number] Admin: 07/10/19 07:28 Dose: 5,000 units Documented by: [id number] Cosigned by: [id number] Admin: 07/09/19 21:10 Dose: 5,000 units Documented by: [id number] Cosigned by: [id number] Ioversol (Optiray 320 125ml) 119 ml IV ONCE PRN PRN Reason: Interaction Checking Stop: 07/13/19 15:30 Last Admin: 07/09/19 15:31 Dose: 119 ml Documented by: [id number] Levetiracetam (Keppra) 1,500 mg PO BID [facility] Stop: 08/08/19 20:59 Last Admin: 07/10/19 09:52 Dose: 1,500 mg Documented by: [id number] Admin: 07/09/19 21:08 Dose: 1,500 mg Documented by: [id number] Metoprolol Succinate (Toprol Xl) [facility] [place]: 08/09/19 08:59 Last Admin: 07/10/19 09:54 Dose: 50 mg Documented by: [id number] Nicotine (Nicoderm Cq) 7 [facility] [place] [facility] [place]: 08/09/19 14:44 Last Admin: 07/10/19 16:24 Dose: 7 mg Documented by: [id number] Oxycodone HCl (Roxicodone Immediate Rel) 5 mg PO Q6H PRN PRN Reason: Severe Pain Stop: 07/24/19 10:34 Last Admin: 07/10/19 13:08 Dose: 5 mg Documented by: [id number] Pantoprazole Sodium (Protonix) 40 mg PO DAILYBB [facility] Stop: 08/09/19 06:29 Last Admin: 07/10/19 07:26 Dose: 40 mg Documented by: [id number] Raltegravir (Isentress) 400 mg PO BID [facility] Stop: 08/08/19 20:59 Last Admin: 07/10/19 09:53 Dose: 400 mg Documented by: [id number] Admin: 07/09/19 21:09 Dose: 400 mg Documented by: [id number] Ritonavir (Ritonavir) 100 mg PO BID [facility] Stop: 08/08/19 20:59 Last Admin: 07/10/19 09:53 Dose: 100 mg Documented by: [id number] Admin: 07/09/19 21:09 Dose: 100 mg Documented by: [id number] Discontinued Medications Dronabinol (Marinol) 10 mg PO ONCE STA Stop: 07/10/19 12:28 Last Admin: 07/10/19 13:09 Dose: 10 mg Documented by: [id number] Fentanyl Citrate (Fentanyl Citrate) 50 mcg IV NOW STA Stop: 07/09/19 13:05 Last Admin: 07/09/19 13:48 Dose: 50 mcg Documented by: [id number] Gabapentin (Neurontin) 600 mg PO NOW STA Stop: 07/09/19 21:28 Last Admin: 07/09/19 22:10 Dose: 600 mg Documented by: [id number] Gabapentin (Neurontin) 200 mg PO NOW STA Stop: 07/10/19 02:24 Last Admin: 07/10/19 02:48 Dose: 200 mg Documented by: [id number] Gabapentin (Neurontin) 800 mg PO ONE ONE Stop: 07/10/19 07:01 Last Admin: 07/10/19 07:25 Dose: 800 mg Documented by: [id number] Sodium Chloride (Nss) 500 mls @ 999 mls/hr IV .Q31M OMAYRA Stop: 07/09/19 13:45 Last Infusion: 07/09/19 14:12 Dose: 0 mls/hr Documented by: [id number] Admin: 07/09/19 13:41 Dose: 999 mls/hr Documented by: [id number] Morphine Sulfate (Morphine Sulfate) 3 mg IV NOW STA Stop: 07/09/19 21:28 Last Admin: 07/09/19 21:52 Dose: 3 mg Documented by: [id number] Nitroglycerin (Nitro-Bid 2%) 0.5 inch EXT NOW STA Stop: 07/09/19 12:58 Last Admin: 07/09/19 13:47 Dose: 0.5 inch Documented by: [id number] Ondansetron HCl (Zofran) 4 mg IV NOW STA Stop: 07/09/19 13:05 Last Admin: 07/09/19 13:48 Dose: 4 mg Documented by: [id number] Oxycodone HCl (Roxicodone Immediate Rel) 5 mg PO NOW STA Stop: 07/10/19 02:01 Last Admin: 07/10/19 03:32 Dose: Not Given Documented by: [id number] Oxycodone HCl (Roxicodone Immediate Rel) Confirm Administered Dose 5 mg .ROUTE .[employer] ONE Stop: 07/10/19 02:07 Last Admin: 07/10/19 03:32 Dose: 5 mg Documented by: [id number] Description This is a 21 electrode EEG with a single channel dedicated to limited EKG. The electrodes were placed in accordance with the International 10-20 system. REPORT: At the onset of the EEG the patient is awake. The background is asymmetric. The posterior dominant rhythm is 9-10 Hz best seen on the left while there is continuous 3-5 Hz theta delta activity on the right maximal in the centrotemporal head region. Photic stimulation does not elicit any additional abnormalities. No stage II sleep transient are noted. Drowsiness is characterized by decreased eye blink and muscle artifact with increased theta activity. IMPRESSION: Abnormal awake and drowsy EEG due to continuous focal slowing on the right suggestive of an underlying structural abnormality. No epileptiform discharges or seizures are recorded.
[2019-07-10] MEDS: LACOSAMIDE 50 MG TABLET PO SCH (21:46)
[2019-07-11] MEDS: HEPARIN SOD 5,000 UNIT/0.5 ML VIAL SQ SCH ×2 (05:58→14:03)
[2019-07-11] MEDS: OXYCODONE HCL IR 5 MG TAB (IMMEDIATE RELEASE) PO PRN ×2 (05:58→14:10)
[2019-07-11] MEDS: PANTOprazole 40 MG TAB PO SCH (05:59)
[2019-07-11 07:02] LABS: INR 1.1 (0.9-1.1); Prothrombin Time 11.2 Seconds (9.0-12.0)
[2019-07-11 07:07] LABS: Basophils # (auto) 0.09 K/uL (0-0.2); Basophils % (auto) 1.7 %; Eosinophils # (auto) 0.22 K/uL (0-0.5); Hematocrit (blood only) 36.9 % (42-52); Hemoglobin 12.1 g/dL (14.0-18.0); Immature Granulocytes # (auto) 0.01 K/uL (0.00-0.02); Immature Granulocytes % (auto) 0.2 %; Lymphocytes # (auto) 2.66 K/uL (1.2-3.4); Lymphocytes % (auto) 48.9 %; Mean Corpuscular Hemoglobin 25.9 pg (25-34); Mean Corpuscular Hgb Conc 32.8 g/dL (32-36); Mean Corpuscular Volume 78.8 fL (80-100); Mean Platelet Volume 9.9 fL (7.4-10.4); Monocytes # (auto) 0.52 K/uL (0.11-0.59); Monocytes % (auto) 9.6 %; Neutrophils # (auto) 1.94 K/uL (1.4-6.5); Neutrophils % (auto) 35.6 %; Platelet Count 270 K/uL (130-400); RDW Coefficient of Variation 14.6 % (11.5-14.5); RDW Standard Deviation 41.6 fL (36.4-46.3); Red Blood Count 4.68 M/uL (4.7-6.1); White Blood Count 5.44 K/uL (4.8-10.8)
[2019-07-11 07:28] LABS: BUN Creatinine Ratio 16.7 (10-20); Calcium 9.3 mg/dl (8.5-10.1); Creatinine Clr Calc Pharmacy 93.5 ml/min; Est GFR (African American) 100.2; Est GFR (Non-African American) 86.4; Potassium 3.8 mmol/L (3.5-5.1)
[2019-07-11] MEDS: LACOSAMIDE 50 MG TABLET PO SCH (08:27)
[2019-07-11] MEDS: ASPIRIN 81 MG ECTAB PO SCH (08:27)
[2019-07-11] MEDS: DARUNAVIR ETHANOLATE 600 MG TAB PO SCH (08:28)
[2019-07-11] MEDS: METOPROLOL SUCC 50MG EXT REL TAB PO SCH (08:28)
[2019-07-11] MEDS: RITONAVIR 100 MG TAB PO SCH (08:28)
[2019-07-11] MEDS: DULOXETINE HCL 60 MG CAP PO SCH (08:28)
[2019-07-11] MEDS: AMLODIPINE BESYLATE 5 MG TAB PO SCH (08:28)
[2019-07-11] MEDS: FOLIC ACID 1 MG TAB PO SCH (08:29)
[2019-07-11] MEDS: NICOTINE 7 MG/24 HR TDSY TD SCH (08:29)
[2019-07-11] MEDS: levETIRAcetam 500 MG TAB PO SCH (08:31)
[2019-07-11] MEDS: GABAPENTIN 800 MG TAB PO SCH ×2 (08:32→14:03)
[2019-07-11] MEDS: RALTEGRAVIR POTASSIUM 400 MG TAB PO SCH (08:32)
[2019-07-11] MEDS: FLUTICASONE/VILANTEROL 100/25MCG 14 PUFFS/INHALER INH SCH (08:32)
[2019-07-11 11:39] VITALS: BP 105/70; PULSE 70; TEMP 97.7; O2SAT 94
--- NOTE | 2019-07-11 14:16 | Hospitalist Progress Note ---
Date of Service July 11, 2019 Assessment & Plan (1) Seizures: SEIZURE VERSUS PSEUDOSEIZURE History of stroke in the past -this is a patient with multiple previous neurological workups in the past -as per EMS notes, patient may have had 2 episodes of seizures and the one at 9 AM on 07/09/2019 was witnessed by patient's male partner who called the ambulance. History is mostly from the patient as his male partner is not present in the hospital and did not accompany the patient here. patient reports that at baseline because of history of stroke, he has left sided upper extremity weakness and really cannot move his left leg at all. However, he reports that his "seizures" are happening more frequently in the past and that since being discharged in May 2020 with brenna Lopez he could not get a neurology appointment until August 2019 with [facility] neurology group. Patient reports that the seizure like activity primarily affects the left side and what is more unusual to him him that they involve his left leg jerking. He reported that recently he had 1 episode last night when he fell out of the bed and the one at 9 AM occurred and he fell off the couch and that his male partner saw him lose consciousness for a few seconds. EMS notes reported associated complaints of chest tightness and shortness of breath. patient also though he had a fever of 101 F yesterday night -in the ED, the patient did not appear to have any post-ictal symptoms. he is comfortable and answers all questions appropriately. speaking well and no dysarthria afebrile. no current discomforts.no chest pain. no shortness of breath. breathing on room air. no dizziness. no lightheadedness. no headache. no nausea. no vomiting. no incontinence reported no changes to baseline left sided weakness. -CT head on this admission on 07/09/2019: No acute intracranial hemorrhage, midline shift, intracranial mass, hydrocephalus, territorial ischemia or abnormal extra-axial collection. Encephalomalacia from remote MCA territorial infarct redemonstrated. Age-related involutional changes with ex vacuo ventricu lomegaly. Patchy white matter hypodensities suggest chronic microvascular ischemic disease -as per nurse, patient passed dysphagia screening -at this time no acute lab electrolyte abnormalities or acute EKG changes -normal urine analysis and no pneumonia noted on chest X ray, blood cultures pending, hospitalist would not start any empiric antibiotics at this time until it is more clear that patient has fever during hospital stay or clinical signs of acute infection -discussed with on admission neurology Dr. Finnegan that is not clear to hospital doctor whether patient has unusual epileptic discharges at home that would indicate seizure versus pseudoseizure -continue Keppra 1500 mg BID, follow Keppra levels taken on admission -start Vimpat (lacosamide) 100 mg BID as per neurology -Brain MRI seizure is cancelled given current work up done -EEG results Abnormal awake and drowsy EEG due to continuous focal slowing on the right suggestive of an underlying structural abnormality. No epileptiform discharges or seizures are recorded -neurology plans to do extended EEG monitoring as outpatient -no acute telemetry events currently -discharge medication sent electronically to [address] [place] [id number] Vimpat (lacosamide) 100 mg twice a day with Keppra 1500 mg twice a day nicotine patch neurology service plans to do extended EEG monitoring as outpatient upcoming appointments 07/13/2019 11:10 AM Provider Alexandr Elder DO Department Family Practice [facility] for follow up care and to check INR 07/18/2019 2:30 PM Provider [facility] Department Pharmacy, [facility] to check INR 07/24/2019 3:00 PM Provider Wen Morgan MD Department Neurology [facility] 08/23/2019 3:00 PM Provider Michelle Martin MD Department Hepatology, [facility] History in DVT in the past (no current DVT) -left lower extremity DVT diagnosed in 09/2018 -CTA on this admission in 07/09/2019: There is no evidence of pulmonary embolus in the main, lobar, or segmental pulmonary arteries. Cardiomegaly and mild emphysema. There is mild ectasia of the ascending thoracic aorta which measures up to 3.8 cm in diameter. No dissection is seen. There is no airspace consolidation or pleural effusion. Mild diffuse peribronchial thickening suggests bronchitis/reactive airway disease. Hepatic steatosis -chart review has shown previous hospitalist write history of pulmonary embolism but CTA scans in 2019 and 2018 at [facility] does not show evidence of pulmonary embolism -patient has chronically been on warfarin, INR on 07/09/2019 is subtherapeutic -ultrasound of lower extremities 07/10/2019: No DVT within the right or left lower extremity. 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 This is likely chronic. -on heparin subcutaneous q8 hours, resume coumadin Hypertension -blood pressure stable -continue home dose amlodipine of 5 mg daily Carotid artery stenosis: -Continue aspirin 81 mg daily Chronic pain syndrome / Neuropathy -continue home dose duloxetine -continue continue gabapentin 800 mg TID and marinol and prn pain medications COPD (chronic obstructive pulmonary disease): -Cont home symbicort (2) HIV (human immunodeficiency virus infection): -Continue Prezista 600 mg twice daily, ritonavir 100 mg twice a day, and Isentress 400 mg twice a day -continue folic acid -normal levels of B12 levels, folic acid levels, TSH Discharge Diagnosis SEIZURE VERSUS PSEUDOSEIZURE History of stroke in the past History in DVT in the past (no current DVT) Hypertension Chronic pain syndrome / Neuropathy HIV (human immunodeficiency virus infection) Subjective no acute telemetry events. no "twitches" of the leg as per patient. no shortness of breath. no chest pain. no dizziness. no headache. baseline mental status Review of Systems Review of Systems: All systems reviewed & are unremarkable except as noted in HPI & below Physical Exam Constitutional: cooperative and comfortable Eyes: PERRL, conjunctivae normal, anicteric sclerae EOM intact bilaterally ENMT: external ear and nose normal, oropharynx normal Neck: normal visual inspection Respiratory: normal respiratory effort, lungs clear to auscultation Cardiovascular: Rate/Rhythm: regular rate and regular rhythm Gastrointestinal (Abdomen): normal bowel sounds, soft, nontender, no hepatosplenomegaly Musculoskeletal: Head/Neck/Chest: normocephalic and head atraumatic Neurologic: PERRL, EOMI, accommodation nl, no face palsy, no dysarthria (left sided weakness, patient can move left leg when on bed) Psychiatric: A+Ox3, euthymic affect Results & Data Vital Signs (Past 12 Hours) Vital Signs Temp Pulse Pulse Resp BP BP Pulse Ox 07/11/19 11:38 36.5 C 70 18 105/70 94 07/11/19 07:46 36.4 C L 74 18 124/82 95 07/11/19 07:18 70 07/11/19 04:31 36.5 C 79 20 117/75 96 07/11/19 02:26 62 (1) HIV (human immunodeficiency virus infection) HIV symptom status: unspecified Qualified Code(s): B20 - Human immunodeficiency virus [HIV] disease
--- NOTE | 2019-07-11 14:27 | Discharge Summary ---
Date of Service July 11, 2019 Admission HPI Per Admitting Provider -this is a patient with multiple previous neurological workups in the past -as per EMS notes, patient may have had 2 episodes of seizures and the one at 9 AM on 07/09/2019 was witnessed by patient's male partner who called the ambulance. History is mostly from the patient as his male partner is not present in the hospital and did not accompany the patient here. patient reports that at baseline because of history of stroke, he has left sided upper extremity weakness and really cannot move his left leg at all. However, he reports that his "seizures" are happening more frequently in the past and that since being d ischarged in May 2020 with increase John he could not get a neurology appointment until August 2019 with [facility] neurology group. Patient reports that the seizure like activity primarily affects the left side and what is more unusual to him him that they involve his left leg jerking. He reported that recently he had 1 episode last night when he fell out of the bed and the one at 9 AM occurred and he fell off the couch and that his male partner saw him lose consciousness for a few seconds. EMS notes reported associated complaints of chest tightness and shortness of breath. patient also though he had a fever of 101 F yesterday night -in the ED, the patient did not appear to have any post-ictal symptoms. he is comfortable and answers all questions appropriately. speaking well and no dysarthria afebrile. no current discomforts.no chest pain. no shortness of breath. breathing on room air. no dizziness. no lightheadedness. no headache. no nausea. no vomiting. no incontinence reported no changes to baseline left sided weakness. -CT head on this admission on 07/09/2019: No acute intracranial hemorrhage, midline shift, intracranial mass, hydrocephalus, territorial ischemia or abnorm al extra-axial collection. Encephalomalacia from remote MCA territorial infarct redemonstrated. Age-related involutional changes with ex vacuo ventriculomegaly. Patchy white matter hypodensities suggest chronic microvascular ischemic disease -as per nurse, patient passed dysphagia screening -at this time no acute lab electrolyte abnormalities or acute EKG changes -normal urine analysis and no pneumonia noted on chest X ray, blood cultures pending, hospitalist would not start any empiric antibiotics at this time until it is more clear that patient has fever during hospital stay or clinical signs of acute infection -discussed with neurology Dr. Finnegan, that hospitalist will plan to admit to telemetry, place seizure and aspiration precautions, request Brain MRI seizure protocol, request routine EEG, and neurology consult. and that is not clear to hospital doctor whether patient has unusual epileptic discharges at home that would indicate seizure versus pseudoseizure Principal Diagnosis SEIZURE VERSUS PSEUDOSEIZURE History of stroke in the past History in DVT in the past (no current DVT) Hypertension Chronic pain syndrome / Neuropathy HIV (human immunodeficiency virus infection) Discharge Exam Constitutional cooperative and comfortable Eyes PERRL, conjunctivae normal, anicteric sclerae EOM intact bilaterally ENMT external ear and nose normal, oropharynx normal Neck normal visual inspection Respiratory normal respiratory effort, lungs clear to auscultation Cardiovascular Rate/Rhythm: regular rate and regular rhythm Gastrointestinal (Abdomen) normal bowel sounds, soft, nontender, no hepatosplenomegaly Musculoskeletal Head/Neck/Chest: normocephalic and head atraumatic Neurologic PERRL, EOMI, accommodation nl, no face palsy, no dysarthria (left sided weakness, patient can move left leg when on bed) Psychiatric A+Ox3, euthymic affect Discharge Data Allergies Allergy/AdvReac Type Severity Reaction Status Date / Time Penicillins Allergy Severe ANAPHYLAXIS Verified 07/09/19 12:20 niacin Allergy Intermediate RASH Verified 07/09/19 12:20 Sulfa (Sulfonamide Allergy Intermediate "ITCHY Verified 07/09/19 12:20 Antibiotics) RASH" tramadol Allergy Mild RASH Verified 07/09/19 12:20 azithromycin Allergy Unknown Verified 07/09/19 12:20 meloxicam AdvReac Intermediate GI SYMPTOMS Verified 07/09/19 12:20 shellfish derived AdvReac Intermediate gi symptoms Verified 07/09/19 12:20 topiramate AdvReac Intermediate NAUSEA Verified 07/09/19 12:20 Consultations 07/09/19 17:14 ED Decision to Admit Stat 07/09/19 17:55 Consult Neurology Routine 07/09/19 18:01 Consult Case Management - Discharge Planning Routine 07/10/19 02:59 Consult Patient Rep / Service Excellence [Consult Patient Services] Routine 07/10/19 10:09 Consult Infectious Diseases Routine Ordered Studies 07/09/19 14:54 CT angio chest PE protocol Stat CT head/brain wo con Stat 07/10/19 US venous doppler LE BI Routine Hospital Course (1) Seizures: SEIZURE VERSUS PSEUDOSEIZURE History of stroke in the past -this is a patient with multiple previous neurological workups in the past -as per EMS notes, patient may have had 2 episodes of seizures and the one at 9 AM on 07/09/2019 was witnessed by patient's male partner who called the ambulance. History is mostly from the patient as his male partner is not present in the hospital and did not accompany the patient here. patient reports that at baseline because of history of stroke, he has left sided upper extremity weakness and really cannot move his left leg at all. However, he reports that his "seizures" are happening more frequently in the past and that since being discharged in May 2020 with brenna Lopez he could not get a neurology appointment until August 2019 with [facility] neurology group. Patient reports that the seizure like activity primarily affects the left side and what is more unusual to him him that they involve his left leg jerking. He reported that recently he had 1 episode last night when he fell out of the bed and the one at 9 AM occurred and he fell off the couch and that his male partner saw him lose consciousness for a few seconds. EMS notes reported associated complaints of chest tightness and shortness of breath. patient also though he had a fever of 101 F yesterday night -in the ED, the patient did not appear to have any post-ictal symptoms. he is comfortable and answers all questions appropriately. speaking well and no dysarthria afebrile. no current discomforts.no chest pain. no shortness of breath. breathing on room air. no dizziness. no lightheadedness. no headache. no nausea. no vomiting. no incontinence reported no changes to baseline left sided weakness. -CT head on this admission on 07/09/2019: No acute intracranial hemorrhage, midline shift, intracranial mass, hydrocephalus, territorial ischemia or abnormal extra-axial collection. Encephalomalacia from remote MCA territorial infarct redemonstrated. Age-related involutional changes with ex vacuo ventriculomegaly. Patchy white matter hypodensities suggest chronic microvascular ischemic disease -as per nurse, patient passed dysphagia screening -at this time no acute lab electrolyte abnormalities or acute EKG changes -normal urine analysis and no pneumonia noted on chest X ray, blood cultures pending, hospitalist would not start any empiric antibiotics at this time until it is more clear that patient has fever during hospital stay or clinical signs of acute infection -discussed with on admission neurology Dr. Finnegan that is not clear to hospital doctor whether patient has unusual epileptic discharges at home that would indicate seizure versus pseudoseizure -continue Keppra 1500 mg BID, follow Keppra levels taken on admission -start Vimpat (lacosamide) 100 mg BID as per neurology -Brain MRI seizure is cancelled given current work up done -EEG results Abnormal awake and drowsy EEG due to continuous focal slowing on the right suggestive of an underlying structural abnormality. No epileptiform discharges or seizures are recorded -neurology plans to do extended EEG monitoring as outpatient -no acute telemetry events currently -discharge medication sent electronically to [address] [place] [phone] Vimpat (lacosamide) 100 mg twice a day with Keppra 1500 mg twice a day nicotine patch neurology service plans to do extended EEG monitoring as outpatient upcoming appointments 07/13/2019 11:10 AM Provider Alexandr Elder DO Department Family Practice [facility] for follow up care and to check INR 07/18/2019 2:30 PM Provider [facility] Department Pharmacy, [facility] to check INR 07/24/2019 3:00 PM Provider Wen Morgan MD Department Neurology [facility] 08/23/2019 3:00 PM Provider Michelle Martin MD Department Hepatology, [facility] History in DVT in the past (no current DVT) -left lower extremity DVT diagnosed in 09/2018 -CTA on this admission in 07/09/2019: There is no evidence of pulmonary embolus in the main, lobar, or segmental pulmonary arteries. Cardiomegaly and mild emphysema. There is mild ectasia of the ascending thoracic aorta which measures up to 3.8 cm in diameter. No dissection is seen. There is no airspace consolidation or pleural effusion. Mild diffuse peribronchial thickening suggests bronchitis/reactive airway disease. Hepatic steatosis -chart review has shown previous hospitalist write history of pulmonary embolism but CTA scans in 2019 and 2017 at [facility] does not show evidence of pulmonary embolism -patient has chronically been on warfarin, INR on 07/09/2019 is subtherapeutic -ultrasound of lower extremities 07/10/2019: No DVT within the right or left lower extremity. 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 This is likely chronic. -on heparin subcutaneous q8 hours, resume coumadin Hypertension -blood pressure stable -continue home dose amlodipine of 5 mg daily Carotid artery stenosis: -Continue aspirin 81 mg daily Chronic pain syndrome / Neuropathy -continue home dose duloxetine -continue continue gabapentin 800 mg TID and marinol and prn pain medications COPD (chronic obstructive pulmonary disease): -Cont home symbicort (2) HIV (human immunodeficiency virus infection): -Continue Prezista 600 mg twice daily, ritonavir 100 mg twice a day, and Isentress 400 mg twice a day -continue folic acid -normal levels of B12 levels, folic acid levels, TSH Discharge Diagnosis SEIZURE VERSUS PSEUDOSEIZURE History of stroke in the past History in DVT in the past (no current DVT) Hypertension Chronic pain syndrome / Neuropathy HIV (human immunodeficiency virus infection) Total Time Total Time Spent Total Time Spent (In Minutes): 40 minutes Total Time Includes: Examination of the Patient, Discharge Planning, Medication Reconciliation and Communication With Other Providers Discharge Plan Discharge Items Patient Disposition: Home - Self-Care Reason For Visit: SEIZURE VS PSEUDOSEIZURE. HISTORY OF STROKE, HIV + Discharge Diagnosis: SEIZURE VERSUS PSEUDOSEIZURE History of stroke in the past History in DVT in the past (no current DVT) Hypertension Chronic pain syndrome / Neuropathy HIV (human immunodeficiency virus infection) Condition on Discharge: Good Activity: Resume your previous activity Non-emergency contact: Primary Care Provider and Neurologist Call non-emergency contact if: you have any medication questions Follow-up/Referrals: Alexandr Elder DO [Primary Care Provider] - Diet: Regular Addtl Attending Provider Instructions: discharge medication sent electronically to [address] [place] [phone] Vimpat (lacosamide) 100 mg twice a day with Keppra 1500 mg twice a day nicotine patch neurology service plans to do extended EEG monitoring as outpatient upcoming appointments 07/13/2019 11:10 AM Provider Alexandr Elder DO Department Family Practice [facility] for follow up care and to check INR 07/18/2019 2:30 PM Provider [facility] Department Pharmacy, [facility] to check INR 07/24/2019 3:00 PM Provider Wen Morgan MD Department Neurology [facility] 08/23/2019 3:00 PM Provider Michelle Martin MD Department Hepatology, [facility] Pending Studies at Discharge: No Stand-Alone Forms: My [facility], Smoking Cessation Medications and DC Order Prescriptions: New nicotine 7 mg/24 hr Patch 24 Hour 7 mg transdermal QAM 30 Days Qty: 30 RF: 0 Vimpat 50 mg Tablet 100 mg PO BID 30 Days Qty: 120 RF: 0 levetiracetam [Keppra] 500 mg Tablet 1,500 mg PO BID 30 Days Qty: 180 RF: 0 Continued ritonavir 100 mg tablet 100 mg PO BID Qty: 180 RF: 1 Isentress 400 mg tablet 400 mg PO BID Qty: 180 RF: 1 Prezista 600 mg tablet 600 mg PO BIDM Qty: 180 RF: 1 aspirin 81 mg tablet,delayed release (DR/EC) 81 mg PO QAM RF: 0 dronabinol [Marinol] 10 mg Capsule 10 mg PO QAM RF: 0 furosemide [Lasix] 20 mg Tablet 20 mg PO QAM PRN (Reason: Swelling) RF: 0 fluticasone propionate [Flonase Allergy Relief] 50 mcg/actuation Marshall,Suspension 2 spray INTRANASAL QAM PRN (Reason: post-nasal drip) RF: 0 Symbicort 160-4.5 mcg/actuation Hfa Aerosol Inhaler 2 puff INHALATION Q12H RF: 0 folic acid 1 mg Tablet 1 mg PO QAM RF: 0 gabapentin [Neurontin] 800 mg Tablet 800 mg PO TID RF: 0 levetiracetam [Keppra] 1,000 mg Tablet 1,500 mg PO BID RF: 0 ferrous sulfate [iron] 325 mg (65 mg iron) tablet 325 mg PO Q OTHER DAY RF: 0 amlodipine [Norvasc] 5 mg tablet 5 mg PO QAM RF: 0 albuterol sulfate [Ventolin HFA] 90 mcg/actuation HFA aerosol inhaler 2 puff inhalation BID RF: 0 ondansetron 4 mg tablet,disintegrating 4 mg PO Q8H PRN (Reason: Nausea And Vomiting) RF: 0 Florastor 250 mg capsule 250 mg PO BID Qty: 20 RF: 0 duloxetine [Cymbalta] 60 mg Capsule,Delayed Release(Dr/Ec) 60 mg PO DAILY RF: 0 ipratropium-albuterol 0.5 mg-3 mg(2.5 mg base)/3 mL Solution For Nebulization 3 ml INHALATION Q4H PRN (Reason: Shortness Of Breath Or Wheezing) RF: 0 omeprazole 20 mg Capsule,Delayed Release(Dr/Ec) 20 mg PO DAILYBB RF: 0 metoprolol succinate [Toprol XL] 50 mg tablet extended release 24 hr 50 mg PO QAM RF: 0 warfarin [Jantoven] 5 mg tablet 5 mg PO QAM RF: 0 oxycodone [Roxicodone] 5 mg Tablet 5 mg PO Q6H PRN (Reason: Pain) RF: 0 Discharge Orders: Discharge Order (Routine); Ordered 07/11/19 Ordered By: Jabier Paul Admission Data Admit Date/Time: 07/09/19 18:29 Attending Provider: Jabier Paul Admit Provider: Jabier Paul Primary Care Provider: Alexandr Elder Other Providers: Jabier Paul ; Luis Angel Finnegan ; Africa Blount
[2019-07-11] MEDS ORDERED: WARFARIN SOD 5 MG TAB PO SCH (16:00)
[2019-07-14 15:56] LABS: HIV 1 RNA PCR Copies/ML 421 copies/mL (NOT DETECTED); HIV-1 RNA Log Copies/mL 2.62 (NOT DETECTED); LSP % Cells Analyzed CD4 27 % (30-61); LSP % of Cells Analyzed CD8 48 % (12-42); LSP Absolute Count CD8 1185 cells/uL (180-1170); LSP Absolute Ct CD4 678 cells/uL (490-1740); LSP CD4/CD8 Ratio 0.57 (0.86-5.00); LSP Lymphocytes Absolute 2494 cells/uL (850-3900); Lymphocyte Subset Pan Comment DNR
== END 2019-07-11 15:47 | disposition home or self-care (01) ==
LOC: ED 11:42 → INTOOBSV 18:29 → 2N 18:29

== ENCOUNTER 2020-08-16 10:20 | Observation (INO) ==
[2020-08-16] MEDS ORDERED: SODIUM CHLORIDE 0.9% 1000ML 1,000 ML IV SCH (10:30)
[2020-08-16] MEDS ORDERED: MoRPHine SULFATE 4 MG/ML 1 ML CARP\\VIAL IV STA (10:32)
[2020-08-16] MEDS ORDERED: ONDANSETRON INJ 2 MG/ML 2 ML VIAL IV STA (10:32)
[2020-08-16 10:36] LABS: Basophils # (auto) 0.02 K/uL (0-0.2); Basophils % (auto) 0.2 %; Eosinophils # (auto) 0.08 K/uL (0-0.5); Eosinophils % (auto) 0.8 %; Hematocrit (blood only) 46.3 % (42-52); Hemoglobin 16.2 g/dL (14.0-18.0); Immature Granulocytes # (auto) 0.02 K/uL (0.00-0.02); Immature Granulocytes % (auto) 0.2 %; Lymphocytes # (auto) 1.66 K/uL (1.2-3.4); Lymphocytes % (auto) 16.4 %; Mean Corpuscular Hemoglobin 27.7 pg (25-34); Mean Corpuscular Volume 79.3 fL (80-100); Mean Platelet Volume 10.3 fL (7.4-10.4); Monocytes # (auto) 0.83 K/uL (0.11-0.59); Monocytes % (auto) 8.2 %; Neutrophils # (auto) 7.54 K/uL (1.4-6.5); Neutrophils % (auto) 74.2 %; Platelet Count 269 K/uL (130-400); RDW Coefficient of Variation 18.2 % (11.5-14.5); RDW Standard Deviation 53.1 fL (36.4-46.3); Red Blood Count 5.84 M/uL (4.7-6.1); White Blood Count 10.15 K/uL (4.8-10.8)
[2020-08-16 10:45] LABS: Partial Thromboplastin Ratio 0.9; Partial Thromboplastin Time 23.2 Seconds (21.0-31.0); Prothrombin Time 9.8 Seconds (9.0-12.0)
[2020-08-16 11:05] LABS: Albumin Level 3.5 gm/dl (3.4-5.0); BUN Creatinine Ratio 10.5 (10-20); Bilirubin Direct 0.2 mg/dl (0-0.2); Calcium 9.6 mg/dl (8.5-10.1); Creatinine Clr Calc Pharmacy 116.1 ml/min; Est GFR (Non-African American) 100.9; Magnesium 2.2 mg/dl (1.8-2.4); Potassium 2.8 mmol/L (3.5-5.1)
[2020-08-16 11:08] LABS: Total Protein 8.7 gm/dl (6.4-8.2)
--- NOTE | 2020-08-16 12:38 | Electrocardiogram Report ---
Test Reason : Blood Pressure : / mmHG Vent. Rate : 109 BPM Atrial Rate : 109 BPM P-R Int : 162 ms QRS Dur : 098 ms QT Int : 372 ms P-R-T Axes : 081 022 068 degrees QTc Int : 500 ms Sinus tachycardia Incomplete right bundle branch block Borderline ECG When compared with ECG of 09-JUL-2019 11:50, No significant change was found Confirmed by Dion Blancas ([id number]) on 08/16/2020 12:38:10 PM Referred By: Confirmed By:Dion Blancas
[2020-08-16] MEDS ORDERED: OPTIRAY 320 100ml IV ONE (12:53)
--- NOTE | 2020-08-16 13:04 | CT Scan Report ---
CT abd pelvis IV con only CLINICAL HISTORY: Left lower quadrant abdominal pain. Gastrointestinal hemorrhage COMPARISON STUDY: May 2019 TECHNIQUE: Patient was scanned in a dynamic helical fashion during intravenous administration of 94 c c of Optiray 320 A dose lowering technique was utilized adhering to the principles of ALARA. CT DOSE: 701.62 mGycm FINDINGS: Lower chest: There are basilar atelectatic changes. Liver: There is hepatic steatosis. No focal masses are visualized. Hepatic and portal veins appear pa tent. Gallbladder: Unremarkable. Spleen: Normal in size and attenuation. Pancreas: Unremarkable. Adrenal glands: Unremarkable. Kidneys: Bilateral renal calcifications are likely vascular. There is no hydronephrosis. No solid krystal al masses are visualized Bowel: There are no transition zones to indicate bowel obstruction. There is colonic wall thickening extending from the splenic flexure to the distal sigmoid. There is infiltration of pericolonic fat. T here are no fluid collections to indicate a pericolonic abscess. The findings are consistent with a n onspecific colitis. Peritoneum: There is no intraperitoneal free air or abdominal ascites. Vasculature: There is a 34 mm infrarenal abdominal aortic aneurysm. There are moderate extensive barak c and common femoral atheromatous changes Adenopathy: Common femoral lymph nodes aren't the upper limits of normal in size. Pelvic viscera: The bladder, and pelvic viscera are unremarkable. Skeletal structures: No destructive osseous lesions are seen. IMPRESSION: 1. No evidence of bowel obstruction. No evidence of free air 2. 34 mm infrarenal abdominal aortic aneurysm 3. Hepatic steatosis 4. Moderate colonic wall thickening with infiltration of pericolonic fat extending from the splenic f lexure to the distal sigmoid. The findings are indicative of a nonspecific colitis (ischemic versus i nfectious/inflammatory) ACT 112: Negative or not required by law. Electronically signed by: Donnie Putnam M.D. 08/16/2020 1:03 PM
--- NOTE | 2020-08-16 13:11 | Emergency Department Note ---
History of Present Illness General Chief complaint: Abdominal Pain Time Seen by Provider: 08/16/20 10:22 History of Present Illness Provider complaint: GI bleed Onset (ago): week(s) 1 Location: abdomen Radiation: non-radiation Severity: moderate Pain Consistency: + intermittent Maximum Pain Intensity: 8 Current Pain Intensity: 8 Quality: + aching Relieved By: + none Exacerbated By: + none Associated symptoms: no confusion, no chest pain, no cough, no fever/chills, no headaches, no nausea/vomiting, no seizure, no shortness of breath and no syncope 55-year-old male presents emergency department with GI bleed and abdominal pain. Patient reports his symptoms began over the last week. Patient reports he has been constipated for the last 2 days. He reports he parsed a large bowel movement the size of a baseball after taking stool softeners earlier in the week. He states since then he has been having diarrhea. Patient states he tried to take Pepto-Bismol to help with his diarrhea. He states that yesterday started noticing black stools. He also stated before the lactulose yesterday started having bright red stools. Patient denies any nausea or vomiting. Patient is HIV positive. Patient states he is compliant with his medications however he has not seen infectious disease doctor in quite some time. Patient states he does not know what his last CD4 count was but he does state that his last viral load was undetectable. Patient does state he has started recently drinking alcohol again because his partner which is led him to start abusing alcohol again. Patient denies any suicidal or homicidal ideation. Home Medications Medication Instructions Recorded Confirmed Type aspirin 81 mg PO QAM 06/08/18 08/16/20 History budesonide-formoterol [Symbicort] 2 puff INHALATION Q12H 06/08/18 08/16/20 History dronabinol [Marinol] 10 mg PO QAM 06/08/18 08/16/20 History fluticasone propionate [Flonase 2 spray INTRANASAL QAM PRN 06/08/18 08/16/20 History Allergy Relief] folic acid 1 mg PO QAM 06/08/18 08/16/20 History furosemide [Lasix] 20 mg PO QAM PRN 06/08/18 08/16/20 History gabapentin [Neurontin] 800 mg PO TID 08/25/18 08/16/20 History ipratropium-albuterol 3 ml INHALATION Q4H PRN 10/04/18 08/16/20 History omeprazole 20 mg PO DAILYBB 10/04/18 08/16/20 History ferrous sulfate [iron] 325 mg PO Q OTHER DAY 10/24/18 08/16/20 History levetiracetam [Keppra] 1,500 mg PO BID 10/24/18 08/16/20 History albuterol sulfate [Ventolin HFA] 2 puff INHALATION BID 11/14/18 08/16/20 History amlodipine [Norvasc] 5 mg PO QAM 11/14/18 08/16/20 History ondansetron 4 mg PO Q8H PRN 11/14/18 08/16/20 History Saccharomyces boulardii [Florastor] 250 mg PO BID #20 cap 11/15/18 08/16/20 Rx darunavir ethanolate 600 mg tablet 600 mg PO BIDM #180 tab 02/09/19 08/16/20 Rx raltegravir 400 mg tablet 400 mg PO BID #180 tab 02/09/19 08/16/20 Rx ritonavir 100 mg tablet 100 mg PO BID #180 tab 02/09/19 08/16/20 Rx metoprolol succinate [Toprol XL] 50 mg PO QAM 04/07/19 08/16/20 History oxycodone [Roxicodone] 5 mg PO Q6H PRN 04/07/19 08/16/20 History warfarin [Jantoven] 5 mg PO QAM 04/07/19 08/16/20 History duloxetine [Cymbalta] 60 mg PO QAM 05/21/19 08/16/20 History doxycycline monohydrate 100 mg PO BID #20 cap 07/24/20 08/16/20 Rx lorazepam 1 mg PO BID 08/16/20 08/16/20 History Allergies Allergy/AdvReac Type Severity Reaction Status Date / Time Penicillins Allergy Severe ANAPHYLAXIS Verified 08/16/20 11:53 niacin Allergy Intermediate RASH Verified 08/16/20 11:53 Sulfa (Sulfonamide Allergy Intermediate "ITCHY Verified 08/16/20 11:53 Antibiotics) RASH" tramadol Allergy Mild RASH Verified 08/16/20 11:53 azithromycin Allergy Unknown Verified 08/16/20 11:53 meloxicam AdvReac Intermediate GI SYMPTOMS Verified 08/16/20 11:53 shellfish derived AdvReac Intermediate gi symptoms Verified 08/16/20 11:53 topiramate AdvReac Intermediate NAUSEA Verified 08/16/20 11:53 Past Med/Surg History Medical History (Updated 08/16/20 @ 14:15 by Bennett Segovia) Anal dysplasia Anxiety AVM (arteriovenous malformation) brain Carotid artery stenosis Complete R ICA occlusion, L 50-59% Carotid stenosis "03/06/15-SAÚL occlusion, LICA with 50-59% stenosis" Chronic pain syndrome COPD (chronic obstructive pulmonary disease) COPD (chronic obstructive pulmonary disease) Depression DVT (deep venous thrombosis) Dyslipidemia History of alcohol abuse History of CVA (cerebrovascular accident) "in setting of right carotid artery thrombosis" HIV (human immunodeficiency virus infection) Hypertension Migraine Neuropathic pain of both feet Polyp of colon (12/21/12) Rib fracture Seizure Tobacco abuse Tobacco abuse Surgical History History of anal lesion History of colonoscopy Family History Father Lung cancer Mother Hypertension Social History (Updated 08/16/20 @ 13:09 by Bennett Segovia) Smoking Status: Current every day smoker Tobacco Type: Cigarettes Years Smoked: 45; Cigarettes Per Day: 10; Second Hand Exposure: No; Hx Alcohol Use: Yes Alcohol Intake Frequency Comment: Currently drinking 2 martinis a night over the last year after his partner Hx Substance Use: No Preferred Language: Cymraes Communication Ability: Effective Learning And Development Consultant Required: No Beliefs That Will Affect Care: None marital status: Current Living Situation: Significant Other Feels Safe at Home: Yes Assistive Devices: Glasses Review of Systems A total of 10 systems reviewed and were otherwise negative Physical Exam Vital Signs Vital Signs - 24 hr 08/16/20 10:28 08/16/20 11:00 08/16/20 11:30 Temperature 36.8 C Temperature Source Oral Pulse Rate 111 H 109 H 103 H Pulse Rate from SpO2 Sensor 102 H Pulse Rhythm Regular Pulse Strength Normal Respiratory Rate 18 17 18 Respiratory Effort / Characteristics Non-Labored Spontaneous Respiratory Depth Normal Respiratory Pattern Regular Blood Pressure 151/83 H 136/89 141/93 H Blood Pressure Mean 105 104 109 Blood Pressure Position Sitting Pulse Oximetry 99 99 Oxygen Delivery Method Room Air Sepsis Recent Fever Within 48 Hours No Sepsis New/Unexplained Change in Mental Status N/A Sepsis Action Taken by Nursing No Action Required 08/16/20 12:00 08/16/20 12:46 08/16/20 13:01 Temperature Temperature Source Pulse Rate 101 H 107 H 105 H Pulse Rate from SpO2 Sensor 101 H 109 H 105 H Pulse Rhythm Pulse Strength Respiratory Rate 18 16 15 Respiratory Effort / Characteristics Respiratory Depth Respiratory Pattern Blood Pressure 140/82 158/134 H 127/88 Blood Pressure Mean 101 142 101 Blood Pressure Position Pulse Oximetry 96 98 98 Oxygen Delivery Method Sepsis Recent Fever Within 48 Hours Sepsis New/Unexplained Change in Mental Status Sepsis Action Taken by Nursing 08/16/20 13:30 Temperature Temperature Source Pulse Rate 105 H Pulse Rate from SpO2 Sensor 105 H Pulse Rhythm Pulse Strength Respiratory Rate 17 Respiratory Effort / Characteristics Respiratory Depth Respiratory Pattern Blood Pressure 142/87 H Blood Pressure Mean 105 Blood Pressure Position Pulse Oximetry 92 Oxygen Delivery Method Sepsis Recent Fever Within 48 Hours Sepsis New/Unexplained Change in Mental Status Sepsis Action Taken by Nursing Physical Exam GENERAL: He is oriented to person, place, and time. He appears well-developed and well-nourished. He does not appear distressed. HENT: Exam performed. - Head: Normocephalic and atraumatic. - Right Ear: External ear normal. No mastoid tenderness. - Left Ear: External ear normal. No mastoid tenderness. - Mouth/Throat: The oropharynx is clear and moist. No trismus in the jaw. No dental abscesses or uvula swelling. No oropharyngeal exudate or tonsillar abscesses. EYES: Conjunctivae and EOM are normal. Pupils are equal, round, and reactive to light. Right eye exhibits no discharge. Left eye exhibits no discharge. No scleral icterus. NECK: Normal range of motion. Neck supple. No JVD present. No spinous process tenderness present. No carotid bruit present. No rigidity. No tracheal deviation and normal range of motion present. No Brudzinski's sign and no Kernig's sign noted. CV: Normal rate, regular rhythm, normal heart sounds and intact distal pulses. There is no peripheral edema. Palpable radial pulses bue. PULM/CHEST: Effort normal and breath sounds normal. No respiratory distress. No stridor. He has no wheezes. He has no rales. - Chest Wall: He exhibits no tenderness. ABD: The abdomen is soft. Bowel sounds are normal. He has no distension. No mass is present. There is tenderness to palpation of the left lower quadrant. There is no rebound, no guarding, no Dow's sign and no tenderness at McBurney's point. Rovsig negative. Rectal: Melanotic stools that are Hemoccult positive. No bright red blood per rectum. MUSC/SKEL: Normal range of motion. There is no peripheral edema, tenderness or deformity. LYMPH: No cervical adenopathy. NEURO: He is alert and oriented to person, place, and time. He has normal strength. No cranial nerve deficit or sensory deficit. Coordination and gait normal. GCS eye subscore is 4. GCS verbal subscore is 5. GCS motor subscore is 6. Cerebellar tests wnl. SKIN: Skin is warm and dry. He is not diaphoretic. PSYCH: He has a normal mood and affect. Behavior is normal. Judgment and thought content normal. Course Course 1022: The patient was evaluated in room B6. A complete history and physical exam was performed Cardiac monitoring: An order was placed for continuous cardiac monitoring. The monitor shows a rate of 110 with sinus tachycardia rhythm 1315: Vital signs stable. Hemoglobin is within normal limits. Potassium of 2.8. CT of the abdomen shows a infrarenal AAA and colitis. Potassium will start to be replaced in the emergency department, patient be started on Protonix. Patient will be [facility] to the [facility] for serial hemoglobins and potassium repletion. Administered Medications Sodium Chloride (Nss 1000ml) 1,000 mls @ 125 mls/hr IV .Q8H [facility] Stop: 09/15/20 10:29 Last Admin: 08/16/20 10:50 Dose: 125 mls/hr Documented by: [id number] Discontinued Medications Ioversol (Ioversol 100ml) 94 ml IV ONCE ONE Stop: 08/16/20 12:54 Last Admin: 08/16/20 12:53 Dose: 94 ml Documented by: [id number] Morphine Sulfate (Morphine Sulfate 4 Mg/Ml 1 Ml Carp\\Vial) 4 mg IV NOW STA Stop: 08/16/20 10:33 Last Admin: 08/16/20 10:51 Dose: 4 mg Documented by: [id number] Ondansetron HCl (Ondansetron Inj 2 Mg/Ml 2 Ml Vial) 4 mg IV NOW STA Stop: 08/16/20 10:33 Last Admin: 08/16/20 10:51 Dose: 4 mg Documented by: [id number] Medical Decision Making Laboratory Data Result diagrams: 08/16/20 09:44 08/16/20 09:44 Lab Results 08/16/20 08/16/20 08/16/20 Range/Units 09:44 09:44 09:44 WBC 10.15 (4.8-10.8) K/uL RBC 5.84 (4.7-6.1) M/uL Hgb 16.2 (14.0-18.0) g/dL Hct 46.3 (42-52) % MCV 79.3 L (80-100) fL MCH 27.7 (25-34) pg MCHC 35.0 (32-36) g/dL RDW Std Deviation 53.1 H (36.4-46.3) fL RDW Coeff of Tanesha 18.2 H (11.5-14.5) % Plt Count 269 (130-400) K/uL MPV 10.3 (7.4-10.4) fL Immature Gran % (Auto) 0.2 % Neut % (Auto) 74.2 % Lymph % (Auto) 16.4 % [place] % (Auto) 8.2 % Eos % (Auto) 0.8 % Baso % (Auto) 0.2 % Neut # (Auto) 7.54 H (1.4-6.5) K/uL Lymph # (Auto) 1.66 (1.2-3.4) K/uL [place] # (Auto) 0.83 H (0.11-0.59) K/uL Eos # (Auto) 0.08 (0-0.5) K/uL Baso # (Auto) 0.02 (0-0.2) K/uL Immature Gran # (Auto) 0.02 (0.00-0.02) K/uL PT 9.8 (9.0-12.0) Seconds INR 1.0 (0.9-1.1) APTT 23.2 (21.0-31.0) Seconds PTT Ratio 0.9 Sodium 134 L (136-145) mmol/L Potassium 2.8 L (3.5-5.1) mmol/L Chloride 97 L (98-107) mmol/L Carbon Dioxide 27 (21-32) mmol/L Anion Gap 10.0 (3-11) BUN 8 (7-18) mg/dl Creatinine 0.78 (0.6-1.4) mg/dl Est Cr Clr Drug Dosing 116.1 ml/min Est GFR ( Amer) 117.0 Est GFR (Non-Af Amer) 100.9 BUN/Creatinine Ratio 10.5 (10-20) Glucose 113 H (70-99) mg/dl Calcium 9.6 (8.5-10.1) mg/dl Magnesium 2.2 (1.8-2.4) mg/dl Total Bilirubin 1.0 (0.2-1) mg/dl Direct Bilirubin 0.2 (0-0.2) mg/dl AST 37 (15-37) U/L ALT 42 (12-78) U/L Alkaline Phosphatase 143 H (45-117) U/L Total Protein 8.7 H (6.4-8.2) gm/dl Albumin 3.5 (3.4-5.0) gm/dl Lipase 83 (73-393) U/L Blood Type Antibody Screen 08/16/20 Range/Units 11:02 WBC (4.8-10.8) K/uL RBC (4.7-6.1) M/uL Hgb (14.0-18.0) g/dL Hct (42-52) % MCV (80-100) fL MCH (25-34) pg MCHC (32-36) g/dL RDW Std Deviation (36.4-46.3) fL RDW Coeff of Tanesha (11.5-14.5) % Plt Count (130-400) K/uL MPV (7.4-10.4) fL Immature Gran % (Auto) % Neut % (Auto) % Lymph % (Auto) % [place] % (Auto) % Eos % (Auto) % Baso % (Auto) % Neut # (Auto) (1.4-6.5) K/uL Lymph # (Auto) (1.2-3.4) K/uL [place] # (Auto) (0.11-0.59) K/uL Eos # (Auto) (0-0.5) K/uL Baso # (Auto) (0-0.2) K/uL Immature Gran # (Auto) (0.00-0.02) K/uL PT (9.0-12.0) Seconds INR (0.9-1.1) APTT (21.0-31.0) Seconds PTT Ratio Sodium (136-145) mmol/L Potassium (3.5-5.1) mmol/L Chloride (98-107) mmol/L Carbon Dioxide (21-32) mmol/L Anion Gap (3-11) BUN (7-18) mg/dl Creatinine (0.6-1.4) mg/dl Est Cr Clr Drug Dosing ml/min Est GFR ( Amer) Est GFR (Non-Af Amer) BUN/Creatinine Ratio (10-20) Glucose (70-99) mg/dl Calcium (8.5-10.1) mg/dl Magnesium (1.8-2.4) mg/dl Total Bilirubin (0.2-1) mg/dl Direct Bilirubin (0-0.2) mg/dl AST (15-37) U/L ALT (12-78) U/L Alkaline Phosphatase (45-117) U/L Total Protein (6.4-8.2) gm/dl Albumin (3.4-5.0) gm/dl Lipase (73-393) U/L Blood Type A Positive Antibody Screen NEGATIVE Imaging Data Radiologist's Impression: CT abd pelvis IV con only CLINICAL HISTORY: Left lower quadrant abdominal pain. Gastrointestinal hemorrhage COMPARISON STUDY: May 2019 TECHNIQUE: Patient was scanned in a dynamic helical fashion during intravenous administration of 94 cc of Optiray 320 A dose lowering technique was utilized adhering to the principles of ALARA. CT DOSE: 701.62 mGycm FINDINGS: Lower chest: There are basilar atelectatic changes. Liver: There is hepatic steatosis. No focal masses are visualized. Hepatic and portal veins appear patent. Gallbladder: Unremarkable. Spleen: Normal in size and attenuation. Pancreas: Unremarkable. Adrenal glands: Unremarkable. Kidneys: Bilateral renal calcifications are likely vascular. There is no hydronephrosis. No solid renal masses are visualized Bowel: There are no transition zones to indicate bowel obstruction. There is colonic wall thickening extending from the splenic flexure to the distal sigmoid. There is infiltration of pericolonic fat. There are no fluid collect ions to indicate a pericolonic abscess. The findings are consistent with a nonspecific colitis. Peritoneum: There is no intraperitoneal free air or abdominal ascites. Vasculature: There is a 34 mm infrarenal abdominal aortic aneurysm. There are moderate extensive iliac and common femoral atheromatous changes Adenopathy: Common femoral lymph nodes aren't the upper limits of normal in size. Pelvic viscera: The bladder, and pelvic viscera are unremarkable. Skeletal structures: No destructive osseous lesions are seen. IMPRESSION: 1. No evidence of bowel obstruction. No evidence of free air 2. 34 mm infrarenal abdominal aortic aneurysm 3. Hepatic steatosis 4. Moderate colonic wall thickening with infiltration of pericolonic fat extending from the splenic flexure to the distal sigmoid. The findings are indicative of a nonspecific colitis (ischemic versus infectious/inflammatory) ACT 112: Negative or not required by law. Electronically signed by: Donnie Putnam M.D. 08/16/2020 1:03 PM Dictated: 08/16/20 1255Transcribed: 08/16/20 1255 ECG Data Indication: + abdominal pain Rate (beats per minute): 109 Rhythm: + sinus tachycardia ECG Intervals/blocks: + Normal QRS, + Normal LA and + Normal QT-c ECG ST segments: + Normal ST segments MDM Narrative 1022: The patient was evaluated in room B6. A complete history and physical exam was performed Cardiac monitoring: An order was placed for continuous cardiac monitoring. The monitor shows a rate of 110 with sinus tachycardia rhythm 1315: Vital signs stable. Hemoglobin is within normal limits. Potassium of 2.8. CT of the abdomen shows a infrarenal AAA and colitis. Potassium will s tart to be replaced in the emergency department, patient be started on Protonix. Patient will be admitted to the [facility] for serial hemoglobins and potassium repletion. Impression & Plan GIB (gastrointestinal bleeding), Acute hypokalemia Discharge Plan Visit Data Chief Complaint: Abdominal Pain ED Provider: Bennett Segovia Discharge Problem: GIB (gastrointestinal bleeding), Acute hypokalemia Patient Disposition: Being Evaluated by Hospitalist Forms Stand Alone Forms: [place] Prescriptions Prescriptions: No Action ritonavir 100 mg tablet 100 mg PO BID Qty: 180 RF: 1 Isentress 400 mg tablet 400 mg PO BID Qty: 180 RF: 1 Prezista 600 mg tablet 600 mg PO BIDM Qty: 180 RF: 1 aspirin 81 mg tablet,delayed release (DR/EC) 81 mg PO QAM RF: 0 dronabinol [Marinol] 10 mg Capsule 10 mg PO QAM RF: 0 furosemide [Lasix] 20 mg Tablet 20 mg PO QAM PRN (Reason: Swelling) RF: 0 fluticasone propionate [Flonase Allergy Relief] 50 mcg/actuation [place],Suspension 2 spray INTRANASAL QAM PRN (Reason: post-nasal drip) RF: 0 budesonide-formoterol [Symbicort] 160-4.5 mcg/actuation Hfa Aerosol Inhaler 2 puff INHALATION Q12H RF: 0 folic acid 1 mg Tablet 1 mg PO QAM RF: 0 gabapentin [Neurontin] 800 mg Tablet 800 mg PO TID RF: 0 levetiracetam [Keppra] 1,000 mg Tablet 1,500 mg PO BID RF: 0 ferrous sulfate [iron] 325 mg (65 mg iron) tablet 325 mg PO Q OTHER DAY RF: 0 amlodipine [Norvasc] 5 mg tablet 5 mg PO QAM RF: 0 albuterol sulfate [Ventolin HFA] 90 mcg/actuation HFA aerosol inhaler 2 puff inhalation BID RF: 0 ondansetron 4 mg tablet,disintegrating 4 mg PO Q8H PRN (Reason: Nausea And Vomiting) RF: 0 Saccharomyces boulardii [Florastor] 250 mg capsule 250 mg PO BID Qty: 20 RF: 0 duloxetine [Cymbalta] 60 mg Capsule,Delayed Release(Dr/Ec) 60 mg PO QAM RF: 0 doxycycline monohydrate 100 mg capsule 100 mg PO BID Qty: 20 RF: 0 ipratropium-albuterol 0.5 mg-3 mg(2.5 mg base)/3 mL Solution For Nebulization 3 ml INHALATION Q4H PRN (Reason: Shortness Of Breath Or Wheezing) RF: 0 omeprazole 20 mg Capsule,Delayed Release(Dr/Ec) 20 mg PO DAILYBB RF: 0 metoprolol succinate [Toprol XL] 50 mg tablet extended release 24 hr 50 mg PO QAM RF: 0 warfarin [Jantoven] 5 mg tablet 5 mg PO QAM RF: 0 oxycodone [Roxicodone] 5 mg Tablet 5 mg PO Q6H PRN (Reason: Pain) RF: 0 lorazepam 1 mg tablet 1 mg PO BID RF: 0 Referrals Referrals: Alexandr Elder DO [Primary Care Provider] - Discharge Problem: GIB (gastrointestinal bleeding) Qualifiers: GI bleed type/associated pathology: unspecified gastrointestinal hemorrhage type Qualified Code(s): K92.2 - Gastrointestinal hemorrhage, unspecified
[2020-08-16] MEDS ORDERED: POTASSIUM CHLORIDE 10 MEQ TABCR PO STA (13:12)
[2020-08-16] MEDS ORDERED: PANTOprazole 40 MG in DEXTROSE 5% 100 ML IV SCH (13:15)
[2020-08-16] MEDS: POTASSIUM CHLORIDE / WTR 10 MEQ/100 ML PLCT IV SCH ×2 (14:23→15:36)
--- NOTE | 2020-08-16 15:06 | Gastrointestinal Consultation ---
Date of Consultation August 16, 2020 Assessment & Plan (1) GIB (gastrointestinal bleeding): 55 year old male with history of CVA in August 2018, HIV, carotid artery disease, COPD, anxiety, depression, neuropathy, tobacco use, ETOH use, fatty liver w/ concern for cirrhosis, rectal Ca in situ s/p resection due for colon CA screening admitted through the ED w/ abdominal pain, diarrhea and rectal bleeding. Hemodynamically stable, H&H 16/46, BUN 8, DOG BEHAVIORIST 0.78 TB 1, AST 37, ALT 42, ALKP 143 ct w/ moderate colonic wall thickening with infiltration of pericolonic fat extending from the splenic flexure to the distal sigmoid - OK for clear liquids - No current indication for ABX - Send stool for c.diff and culture - Trial of Bentyl 10 mg TID - Trend H&H - Monitor and document stools - Transfuse PRN - Ok for PO PPI BID - Plan for OP colonoscopy - Thank you for allowing us to participate in the care of this patient. Please call with any acute changes, questions or concerns. Please see addendum below with additional recommendation from my supervising physician. Supervising Physician Co-Signing Physician Notes I performed a history and physical examination of the patient today, including specifically on physical exam - soft abdomen. I have discussed the patient's management with the advanced practitioner. Please refer to the nurse practitioner's note for the documented findings and plan of care. Patient with diarrhea and rectal bleeding, mild abdominal pain, stable H/H with no anemia, CT scan with colitis. Recent use of ABx. Recommend: Check C.diff, if negative then can use Cipro/Flagyl course. Stool culture. IV Hydration. If no improvement over the weekend then plan for Flex sig on Wednesday. Otherwise, colonoscopy as OP in 6 weeks. Recall GI if needed. History of Present Illness Reason for Consultation: colitis Requesting Physician: Jasmina Attending Physician: Jasmina History of Present Illness 55 year old male with history of CVA in August 2018, HIV, carotid artery disease, COPD, anxiety, depression, neuropathy, tobacco use, ETOH use, fatty liver w/ concern for cirrhosis, rectal Ca in situ s/p resection due for colon CA screening admitted through the ED w/ abdominal pain, diarrhea and rectal bleeding - GI asked to evaluate for colitis and rectal bleeding. Pt was seen and evaluated, chart reviewed. Notes he was on Amoxicillin for about 1 week for an infection. Suggests he finished this about 1 week ago. Two days ago developed generalized abd pain, diarrhea. To start, this was brown stools. Passing numerous BMs daily. Unable to quantify. Suggests yesterday, stool was bloody. BRB . Abd pain was worsening so he took some Pepto. This AM stool was dark, black. Pain is generalized. Does not radiate. No nausea/vomiting. No GERD. No weight loss. C.diff ordered CTAP 2020: No evidence of bowel obstruction. No evidence of free air 2. 34 mm infrarenal abdominal aortic aneurysm 3. Hepatic steatosis 4. Moderate colonic wall thickening with infiltration of pericolonic fat exte nding from the splenic flexure to the distal sigmoid. The findings are indicative of a nonspecific colitis (ischemic versus infectious/inflammatory) EGD 2019: Normal esophagus. - Normal stomach. - Normal duodenal bulb and second portion of the duodenum. Colonoscopy 2017: One 12 mm polyp in the transverse colon, removed using injec tion-lift and a hot snare. Resected and retrieved. Clip was placed.-One 8 mm polyp in the transverse colon, removed with a hot snare. Resected and retrieved.-One 10 mm polyp in the descending colon. Clip was placed.- Diverticulosis in the sigmoid colon.-Internal hemorrhoids.-The examination was otherwise normal on direct and retroflexion views. Allergies Allergy/AdvReac Type Severity Reaction Status Date / Time Penicillins Allergy Severe ANAPHYLAXIS Verified 08/16/20 11:53 niacin Allergy Intermediate RASH Verified 08/16/20 11:53 Sulfa (Sulfonamide Allergy Intermediate "ITCHY Verified 08/16/20 11:53 Antibiotics) RASH" tramadol Allergy Mild RASH Verified 08/16/20 11:53 azithromycin Allergy Unknown Verified 08/16/20 11:53 meloxicam AdvReac Intermediate GI SYMPTOMS Verified 08/16/20 11:53 shellfish derived AdvReac Intermediate gi symptoms Verified 08/16/20 11:53 topiramate AdvReac Intermediate NAUSEA Verified 08/16/20 11:53 Home Medications Medication Instructions Recorded Confirmed Type aspirin 81 mg PO QAM 06/08/18 08/16/20 History budesonide-formoterol [Symbicort] 2 puff INHALATION Q12H 06/08/18 08/16/20 History fluticasone propionate [Flonase 2 spray INTRANASAL QAM PRN 06/08/18 08/16/20 History Allergy Relief] folic acid 1 mg PO QAM 06/08/18 08/16/20 History furosemide [Lasix] 20 mg PO QAM PRN 06/08/18 08/16/20 History gabapentin [Neurontin] 800 mg PO TID 08/25/18 08/16/20 History ipratropium-albuterol 3 ml INHALATION Q4H PRN 10/04/18 08/16/20 History omeprazole 20 mg PO DAILYBB 10/04/18 08/16/20 History albuterol sulfate [Ventolin HFA] 2 puff INHALATION BID PRN 11/14/18 08/16/20 History amlodipine [Norvasc] 5 mg PO QAM 11/14/18 08/16/20 History ondansetron 4 mg PO Q8H PRN 11/14/18 08/16/20 History Saccharomyces boulardii [Florastor] 250 mg PO BID #20 cap 11/15/18 08/16/20 Rx darunavir ethanolate 600 mg tablet 600 mg PO BIDM #180 tab 02/09/19 08/16/20 Rx raltegravir 400 mg tablet 400 mg PO BID #180 tab 02/09/19 08/16/20 Rx ritonavir 100 mg tablet 100 mg PO BID #180 tab 02/09/19 08/16/20 Rx metoprolol succinate [Toprol XL] 50 mg PO QAM 04/07/19 08/16/20 History duloxetine [Cymbalta] 60 mg PO QAM 05/21/19 08/16/20 History atorvastatin 80 mg PO HS 08/16/20 08/16/20 History clonazepam 2 mg PO BID 08/16/20 08/16/20 History levetiracetam 1,500 mg PO BID 08/16/20 08/16/20 History lorazepam 1 mg PO BID PRN 08/16/20 08/16/20 History oxycodone 10 mg PO Q6H PRN 08/16/20 08/16/20 History ramelteon 8 mg PO HS 08/16/20 08/16/20 History zaleplon 10 mg PO HS PRN 08/16/20 08/16/20 History Patient History Medical History (Updated 08/16/20 @ 15:14 by RAOUL Leyva) Alcohol abuse Anal dysplasia Anxiety AVM (arteriovenous malformation) brain Carotid stenosis "03/06/15-SAÚL occlusion, LICA with 50-59% stenosis" Chronic pain syndrome COPD (chronic obstructive pulmonary disease) Depression Dyslipidemia History of alcohol abuse History of CVA (cerebrovascular accident) "in setting of right carotid artery thrombosis" History of DVT (deep vein thrombosis) 09/2018 - started on Eliquis History of pulmonary embolism 12/2018 - in the setting of Eliquis use. Placed on Coumadin HIV (human immunodeficiency virus infection) Hypertension Migraine Neuropathic pain of both feet Polyp of colon (12/21/12) Seizure disorder Tobacco abuse Surgical History History of anal lesion History of colonoscopy Family History Father Lung cancer Mother Hypertension Social History (Updated 08/16/20 @ 13:09 by Bennett Segovia) Smoking Status: Current every day smoker Tobacco Type: Cigarettes Years Smoked: 45; Cigarettes Per Day: 10; Second Hand Exposure: No; Hx Alcohol Use: Yes Alcohol Intake Frequency Comment: Currently drinking 2 martinis a night over the last year after his partner Hx Substance Use: No Preferred Language: Estonian Communication Ability: Effective Inside Phone Sales Required: No Beliefs That Will Affect Care: None marital status: Current Living Situation: Significant Other Feels Safe at Home: Yes Assistive Devices: Glasses Review of Systems Constitutional: no fever, no chills and no fatigue Respiratory: no cough, no chest congestion and no dyspnea Cardiovascular: no chest pain, no chest pain at rest and no dyspnea Gastrointestinal: + abdominal pain and + blood in stools; no early satiety, no heartburn, no nausea, no vomiting, no coffee ground emesis, no hematemesis, no dysphagia and no melena Physical Exam Constitutional: well developed and well nourished; no acute distress and not ill appearing Neck: trachea midline, no thyromegaly Respiratory: normal respiratory effort; no respiratory distress Cardiovascular: Rate/Rhythm: regular rate and regular rhythm Gastrointestinal (Abdomen): normal bowel sounds, soft, nontender, no hepatosplenomegaly Results & Data ([facility]) Vital Signs (Past 12 Hours) Vital Signs Temp Pulse Resp BP Pulse Ox 08/16/20 14:01 109 H 17 129/105 H 03/05/21 13:30 105 H 17 142/87 H 92 08/16/20 13:01 105 H 15 127/88 98 08/16/20 12:46 107 H 16 158/134 H 98 08/16/20 12:00 101 H 18 140/82 96 08/16/20 11:30 103 H 18 141/93 H 99 08/16/20 11:00 109 H 17 136/89 08/16/20 10:28 36.8 C 111 H 18 151/83 H 99 Laboratory Results 08/16/20 08/16/20 08/16/20 Range/Units 14:15 14:15 11:02 WBC (4.8-10.8) K/uL RBC (4.7-6.1) M/uL Hgb (14.0-18.0) g/dL Hct (42-52) % MCV (80-100) fL MCH (25-34) pg MCHC (32-36) g/dL RDW Std Deviation (36.4-46.3) fL RDW Coeff of Tanesha (11.5-14.5) % Plt Count (130-400) K/uL MPV (7.4-10.4) fL Immature Gran % (Auto) % Neut % (Auto) % Lymph % (Auto) % [place] % (Auto) % Eos % (Auto) % Baso % (Auto) % Neut # (Auto) (1.4-6.5) K/uL Lymph # (Auto) (1.2-3.4) K/uL [place] # (Auto) (0.11-0.59) K/uL Eos # (Auto) (0-0.5) K/uL Baso # (Auto) (0-0.2) K/uL Immature Gran # (Auto) (0.00-0.02) K/uL PT (9.0-12.0) Seconds INR (0.9-1.1) APTT (21.0-31.0) Seconds PTT Ratio Sodium (136-145) mmol/L Potassium (3.5-5.1) mmol/L Chloride (98-107) mmol/L Carbon Dioxide (21-32) mmol/L Anion Gap (3-11) BUN (7-18) mg/dl Creatinine (0.6-1.4) mg/dl Est Cr Clr Drug Dosing ml/min Est GFR ( Amer) Est GFR (Non-Af Amer) BUN/Creatinine Ratio (10-20) Glucose (70-99) mg/dl Calcium (8.5-10.1) mg/dl Magnesium (1.8-2.4) mg/dl Total Bilirubin (0.2-1) mg/dl Direct Bilirubin (0-0.2) mg/dl AST (15-37) U/L ALT (12-78) U/L Alkaline Phosphatase (45-117) U/L Total Protein (6.4-8.2) gm/dl Albumin (3.4-5.0) gm/dl Lipase (73-393) U/L COVID-19 Eval Order Covid19 [facility] SARS-CoV-2, RNA, NAAT NEGATIVE (NEGATIVE) Blood Type A Positive Antibody Screen NEGATIVE 08/16/20 08/16/20 08/16/20 Range/Units 09:44 09:44 09:44 WBC 10.15 (4.8-10.8) K/uL RBC 5.84 (4.7-6.1) M/uL Hgb 16.2 (14.0-18.0) g/dL Hct 46.3 (42-52) % MCV 79.3 L (80-100) fL MCH 27.7 (25-34) pg MCHC 35.0 (32-36) g/dL RDW Std Deviation 53.1 H (36.4-46.3) fL RDW Coeff of Tanesha 18.2 H (11.5-14.5) % Plt Count 269 (130-400) K/uL MPV 10.3 (7.4-10.4) fL Immature Gran % (Auto) 0.2 % Neut % (Auto) 74.2 % Lymph % (Auto) 16.4 % [place] % (Auto) 8.2 % Eos % (Auto) 0.8 % Baso % (Auto) 0.2 % Neut # (Auto) 7.54 H (1.4-6.5) K/uL Lymph # (Auto) 1.66 (1.2-3.4) K/uL [place] # (Auto) 0.83 H (0.11-0.59) K/uL Eos # (Auto) 0.08 (0-0.5) K/uL Baso # (Auto) 0.02 (0-0.2) K/uL Immature Gran # (Auto) 0.02 (0.00-0.02) K/uL PT 9.8 (9.0-12.0) Seconds INR 1.0 (0.9-1.1) APTT 23.2 (21.0-31.0) Seconds PTT Ratio 0.9 Sodium 134 L (136-145) mmol/L Potassium 2.8 L (3.5-5.1) mmol/L Chloride 97 L (98-107) mmol/L Carbon Dioxide 27 (21-32) mmol/L Anion Gap 10.0 (3-11) BUN 8 (7-18) mg/dl Creatinine 0.78 (0.6-1.4) mg/dl Est Cr Clr Drug Dosing 116.1 ml/min Est GFR ( Amer) 117.0 Est GFR (Non-Af Amer) 100.9 BUN/Creatinine Ratio 10.5 (10-20) Glucose 113 H (70-99) mg/dl Calcium 9.6 (8.5-10.1) mg/dl Magnesium 2.2 (1.8-2.4) mg/dl Total Bilirubin 1.0 (0.2-1) mg/dl Direct Bilirubin 0.2 (0-0.2) mg/dl AST 37 (15-37) U/L ALT 42 (12-78) U/L Alkaline Phosphatase 143 H (45-117) U/L Total Protein 8.7 H (6.4-8.2) gm/dl Albumin 3.5 (3.4-5.0) gm/dl Lipase 83 (73-393) U/L COVID-19 Eval Order SARS-CoV-2, RNA, NAAT (NEGATIVE) Blood Type Antibody Screen (1) GIB (gastrointestinal bleeding) GI bleed type/associated pathology: unspecified gastrointestinal hemorrhage type Qualified Code(s): K92.2 - Gastrointestinal hemorrhage, unspecified
--- NOTE | 2020-08-16 15:14 | History & Physical Report ---
Date of Service August 16, 2020 Assessment & Plan (1) GIB (gastrointestinal bleeding): (2) Colitis: -Admit to [facility] with telemetry -Patient presenting from home with reports of bright red bleeding per rectum and LLQ abdominal pain -Takes aspirin 81 mg daily, otherwise no other blood thinners (was to be on Coumadin however has not taken for 2 months) -In the ED, mildly tachycardic otherwise hemodynamically stable, Hgb 16.2, CT ABD/pelvis showing nonspecific colitis of the sigmoid colon -Check stool for C. difficile given recent antibiotic use, if negative will start Cipro and Flagyl -Serial H&H -Clear liquids -IV PPI twice daily -EGD 09/2018: WNL, colonoscopy 2017: Polyps, diverticulosis of the sigmoid colon, internal hemorrhoids -GI consult, case discussed with Kinza SILVEIRA (3) Acute hypokalemia: -K+ 2.8 -Likely secondary to GI loss from diarrhea -Replace, follow electrolytes (4) History of pulmonary embolism: (5) History of DVT (deep vein thrombosis): -History of DVT 09/2018 and was placed on Eliquis, developed pulmonary embolism 12/2018 while on Eliquis, then started on Coumadin -Patient reports he was instructed to stop Coumadin a couple months ago, however I cannot find documentation to support this -Will not resume anticoagulation at this time in the setting of active GI bleeding, need to consider once GI bleeding resolved/stabilized (6) Alcohol abuse: -Patient reports drinking 2 drinks/night for the past 1 year since the passing of his partner -Monitor for signs of alcohol withdrawal, as needed Ativan per scoring protocol (7) HIV (human immunodeficiency virus infection): -Continue HAART therapy -Check CD4 and viral load -Has an appointment with [facility] infectious disease 10/2020 (8) Hypertension: -BP controlled, continue amlodipine and metoprolol (9) Seizure disorder: -Stable, no recent seizures -Continue Keppra (10) History of CVA (cerebrovascular accident): -Hold aspirin due to GI bleeding -Continue statin (11) Chronic pain syndrome: -Continue home medications (12) DVT prophylaxis: -SCDs due to GI bleeding History of Present Illness Chief Complaint: Abdominal pain, bright red bleeding per rectum Primary Care Provider: Alexandr Elder DO 55-year-old male with PMH HIV, COPD, history of CVA with left-sided hemiplegia, colon cancer s/p resection, chronic pain syndrome, history of DVT and pulmonary embolism previously anticoagulated on Coumadin, and other problems listed below who presents the ED for evaluation of abdominal pain and bright red bleeding per rectum. Patient reports symptoms began 2 days ago. Reports a left lower quadrant abdominal pain. Has had several episodes of diarrhea with bright red blood. Took Pepto-Bismol last evening and reports stools were black and coffee- ground like this morning. Patient reports a poor appetite however no nausea or vomiting. Denies fevers and chills. No chest pain or shortness of breath. Denies lightheadedness, dizziness, diaphoresis, syncopal events. No urinary symptoms. In the ED, patient is mildly tachycardic otherwise hemodynamically stable. Hgb stable at 16.2. K+ 2.8. CT ABD/pelvis shows a nonspecific colitis of the distal sigmoid colon. Patient was given IV morphine, IV Zofran, potassium replacement, IVF, and started on Protonix drip. Allergies Allergy/AdvReac Type Severity Reaction Status Date / Time Penicillins Allergy Severe ANAPHYLAXIS Verified 08/16/20 11:53 niacin Allergy Intermediate RASH Verified 08/16/20 11:53 Sulfa (Sulfonamide Allergy Intermediate "ITCHY Verified 08/16/20 11:53 Antibiotics) RASH" tramadol Allergy Mild RASH Verified 08/16/20 11:53 azithromycin Allergy Unknown Verified 08/16/20 11:53 meloxicam AdvReac Intermediate GI SYMPTOMS Verified 08/16/20 11:53 shellfish derived AdvReac Intermediate gi symptoms Verified 08/16/20 11:53 topiramate AdvReac Intermediate NAUSEA Verified 08/16/20 11:53 Home Medications Medication Instructions Recorded Confirmed Type aspirin 81 mg PO QAM 06/08/18 08/16/20 History budesonide-formoterol [Symbicort] 2 puff INHALATION Q12H 06/08/18 08/16/20 History fluticasone propionate [Flonase 2 spray INTRANASAL QAM PRN 06/08/18 08/16/20 History Allergy Relief] folic acid 1 mg PO QAM 06/08/18 08/16/20 History furosemide [Lasix] 20 mg PO QAM PRN 06/08/18 08/16/20 History gabapentin [Neurontin] 800 mg PO TID 08/25/18 08/16/20 History ipratropium-albuterol 3 ml INHALATION Q4H PRN 10/04/18 08/16/20 History omeprazole 20 mg PO DAILYBB 10/04/18 08/16/20 History albuterol sulfate [Ventolin HFA] 2 puff INHALATION BID PRN 11/14/18 08/16/20 History amlodipine [Norvasc] 5 mg PO QAM 11/14/18 08/16/20 History ondansetron 4 mg PO Q8H PRN 11/14/18 08/16/20 History Saccharomyces boulardii [Florastor] 250 mg PO BID #20 cap 11/15/18 08/16/20 Rx darunavir ethanolate 600 mg tablet 600 mg PO BIDM #180 tab 02/09/19 08/16/20 Rx raltegravir 400 mg tablet 400 mg PO BID #180 tab 02/09/19 08/16/20 Rx ritonavir 100 mg tablet 100 mg PO BID #180 tab 02/09/19 08/16/20 Rx metoprolol succinate [Toprol XL] 50 mg PO QAM 04/07/19 08/16/20 History duloxetine [Cymbalta] 60 mg PO QAM 05/21/19 08/16/20 History atorvastatin 80 mg PO HS 08/16/20 08/16/20 History clonazepam 2 mg PO BID 08/16/20 08/16/20 History levetiracetam 1,500 mg PO BID 08/16/20 08/16/20 History lorazepam 1 mg PO BID PRN 08/16/20 08/16/20 History oxycodone 10 mg PO Q6H PRN 08/16/20 08/16/20 History ramelteon 8 mg PO HS 08/16/20 08/16/20 History zaleplon 10 mg PO HS PRN 08/16/20 08/16/20 History Past Med/Surg History Medical History Alcohol abuse Anal dysplasia Anxiety AVM (arteriovenous malformation) brain Carotid stenosis "03/06/15-SAÚL occlusion, LICA with 50-59% stenosis" Chronic pain syndrome COPD (chronic obstructive pulmonary disease) Depression Dyslipidemia History of alcohol abuse History of CVA (cerebrovascular accident) "in setting of right carotid artery thrombosis" History of DVT (deep vein thrombosis) 09/2018 - started on Eliquis History of pulmonary embolism 12/2018 - in the setting of Eliquis use. Placed on Coumadin HIV (human immunodeficiency virus infection) Hypertension Migraine Neuropathic pain of both feet Polyp of colon (12/21/12) Seizure disorder Tobacco abuse Surgical History History of anal lesion History of colonoscopy Family History Father Lung cancer Mother Hypertension Social History Smoking Status: Current every day smoker Tobacco Type: Cigarettes Years Smoked: 45; Cigarettes Per Day: 10; Second Hand Exposure: No; Do You Dip or Chew Tobacco: No; Tobacco Cessation Education Requested by Patient: No Hx Alcohol Use: No Hx Substance Use: Yes Last Used Substance: Hours (ago) Last Used Substance Other:: Pain medications in the ED per patient reported. Preferred Language: Somali Communication Ability: Effective Code Enforcement Supervisor Required: No Beliefs That Will Affect Care: Temple Temple Beliefs: Episcopal marital status: Current Living Situation: Alone Other Information That Helps Us Care for You: No Feels Safe at Home: Yes Safety Concerns: Feels Safe At This Time Assistive Devices: Denture - Upper, Denture - Lower and Glasses Assistive Devices Comment: Devices not w/ patient at this time. Review of Systems Review of Systems: ROS per HPI, all other systems reviewed and negative Physical Exam Constitutional: WD/WN, vitals as above Eyes: PERRL, conjunctivae normal, anicteric sclerae ENMT: external ear and nose normal, oropharynx normal Respiratory: normal respiratory effort, lungs clear to auscultation Cardiovascular: Rate/Rhythm: regular rhythm and + tachycardic Vessels: normal peripheral pulses Extremities: no edema Gastrointestinal (Abdomen): Inspection/Auscultation: normal bowel sounds; abdomen not distended Percussion/Palpation: + abdomen tender (LLQ) and abdomen soft; no hepatosplenomegaly Musculoskeletal: Extremities: no cyanosis and no clubbing Chronic left hemiplegia Skin: no rashes, warm and dry Neurologic: PERRL, EOMI, accommodation nl, no face palsy, no dysarthria Psychiatric: A+Ox3, euthymic affect Results & Data Results & Data ([facility]) Vital Signs (Past 12 Hours) Vital Signs Temp Pulse Resp BP Pulse Ox 08/16/20 14:31 114 H 15 130/102 H 08/16/20 14:01 109 H 17 129/105 H 08/16/20 13:30 105 H 17 142/87 H 92 08/16/20 13:01 105 H 15 127/88 98 08/16/20 12:46 107 H 16 158/134 H 98 08/16/20 12:00 101 H 18 140/82 96 08/16/20 11:30 103 H 18 141/93 H 99 08/16/20 11:00 109 H 17 136/89 08/16/20 10:28 36.8 C 111 H 18 151/83 H 99 Laboratory Results Short CBC 08/16/20 Range/Units 09:44 WBC 10.15 (4.8-10.8) K/uL Hgb 16.2 (14.0-18.0) g/dL Hct 46.3 (42-52) % Plt Count 269 (130-400) K/uL BMP 08/16/20 09:44 Sodium 134 L Potassium 2.8 L Chloride 97 L Carbon Dioxide 27 BUN 8 Creatinine 0.78 Glucose 113 H Calcium 9.6 Liver Function 08/16/20 Range/Units 09:44 Total Bilirubin 1.0 (0.2-1) mg/dl Direct Bilirubin 0.2 (0-0.2) mg/dl AST 37 (15-37) U/L ALT 42 (12-78) U/L Alkaline Phosphatase 143 H (45-117) U/L Albumin 3.5 (3.4-5.0) gm/dl Diagnostic Findings CT ABD/PELVIS IMPRESSION: 1. No evidence of bowel obstruction. No evidence of free air 2. 34 mm infrarenal abdominal aortic aneurysm 3. Hepatic steatosis 4. Moderate colonic wall thickening with infiltration of pericolonic fat extending from the splenic flexure to the distal sigmoid. The findings are indicative of a nonspecific colitis (ischemic versus infectious/inflammatory) Code Status & VTE Plan VTE Prophylaxis Plan VTE Prophylaxis will be ordered: Yes Supervising Physician Co-Signing Physician Notes pt seen and examined , care co-ordianted with Shruti Love [employer]AS[employer] CONSULTANT 55 yo M with complicated hx of HIV disease , alcohol abuse , hx of PE/DVT -non compliant with meds admitted with complains of multiple bloody bowel movement vitals stable CT abdomen pelvis shows mild colitis observation in tele clear liquid diet follow H&H GI eval requested Cheryl Veloz MD (1) GIB (gastrointestinal bleeding) GI bleed type/associated pathology: unspecified gastrointestinal hemorrhage type Qualified Code(s): K92.2 - Gastrointestinal hemorrhage, unspecified (2) HIV (human immunodeficiency virus infection) HIV symptom status: unspecified Qualified Code(s): B20 - Human immunodeficiency virus [HIV] disease (3) Hypertension Hypertension type: essential hypertension Qualified Code(s): I10 - Essential (primary) hypertension
[2020-08-16] MEDS ORDERED: oxyCODONE HCL IR 5 MG TAB (IMMEDIATE RELEASE) PO ONE (16:15)
[2020-08-16] MEDS ORDERED: ATIVAN IV ALCOHOL WITHDRAWL IV PRN (17:02)
[2020-08-16] MEDS ORDERED: LORazepam 1 MG/2 ML VIAL IV PRN (17:02)
[2020-08-16] MEDS ORDERED: LORazepam 3 MG/6 ML VIAL IV PRN (17:02)
[2020-08-16] MEDS ORDERED: LORazepam 2 MG/4 ML VIAL IV PRN (17:02)
[2020-08-16 18:13] LABS: Hematocrit (blood only) 36.4 % (42-52); Hemoglobin 12.2 g/dL (14.0-18.0)
[2020-08-16] MEDS ORDERED: POTASSIUM CHLORIDE CRTAB 20 MEQ TABCR PO ONE (18:15)
[2020-08-16] MEDS ORDERED: Nursing to Pharmacy Communication SCH (18:45)
[2020-08-16] MEDS: THIAMINE HCL 100 MG TAB PO SCH (19:29)
[2020-08-16] MEDS: NICOTINE 21 MG/24 HR TDSY TD SCH (19:29)
[2020-08-16] MEDS: NSS + 20MEQ KCL 20 MEQ/1,000 ML BAG IV SCH (19:33)
[2020-08-16] MEDS: SACCHAROMYCES BOULARDII 250 MG CAP PO SCH (20:28)
[2020-08-16] MEDS: RALTEGRAVIR POTASSIUM 400 MG TAB PO SCH (20:29)
[2020-08-16] MEDS: ATORVASTATIN 40 MG TAB PO SCH (20:29)
[2020-08-16] MEDS: levETIRAcetam 500 MG TAB PO SCH (20:29)
[2020-08-16] MEDS: GABAPENTIN 800 MG TAB PO SCH (20:30)
[2020-08-16] MEDS: PANTOprazole 40 MG in SYRINGE 0 ML IV SCH (20:30)
[2020-08-16] MEDS: clonazePAM 1 MG TAB PO SCH (20:52)
[2020-08-16] MEDS: DARUNAVIR ETHANOLATE 600 MG TAB PO SCH (21:29)
[2020-08-16] MEDS: RITONAVIR 100 MG TAB PO SCH (21:30)
[2020-08-16] MEDS: oxyCODONE HCL IR 5 MG TAB (IMMEDIATE RELEASE) PO PRN (21:32)
[2020-08-16] MEDS ORDERED: ZOLPIDEM TARTRATE 5 MG TAB PO STA (21:54)
[2020-08-17] MEDS: oxyCODONE HCL IR 5 MG TAB (IMMEDIATE RELEASE) PO PRN (03:24)
[2020-08-17] MEDS: NSS + 20MEQ KCL 20 MEQ/1,000 ML BAG IV SCH ×2 (05:19→15:42)
[2020-08-17] MEDS: DARUNAVIR ETHANOLATE 600 MG TAB PO SCH ×2 (07:56→17:03)
[2020-08-17] MEDS: RITONAVIR 100 MG TAB PO SCH ×2 (07:56→21:02)
[2020-08-17] MEDS: levETIRAcetam 500 MG TAB PO SCH ×2 (07:56→22:36)
[2020-08-17] MEDS: SACCHAROMYCES BOULARDII 250 MG CAP PO SCH ×2 (07:56→22:36)
[2020-08-17] MEDS: METOPROLOL SUCC 50MG EXT REL TAB PO SCH (07:57)
[2020-08-17] MEDS: DULoxetine HCL 60 MG CAP PO SCH (07:57)
[2020-08-17] MEDS: FOLIC ACID 1 MG TAB PO SCH (07:57)
[2020-08-17] MEDS: RALTEGRAVIR POTASSIUM 400 MG TAB PO SCH ×2 (07:57→21:00)
[2020-08-17] MEDS: GABAPENTIN 800 MG TAB PO SCH (07:57)
[2020-08-17] MEDS: THIAMINE HCL 100 MG TAB PO SCH (07:58)
[2020-08-17] MEDS: amLODIPine BESYLATE 5 MG TAB PO SCH (07:58)
[2020-08-17] MEDS: FLUTICASONE/VILANTEROL 100/25MCG 14 PUFFS/INHALER INH SCH (07:58)
[2020-08-17] MEDS: PANTOprazole 40 MG in SYRINGE 0 ML IV SCH (07:58)
[2020-08-17] MEDS: clonazePAM 1 MG TAB PO SCH (08:18)
[2020-08-17 09:00] LABS: Hematocrit (blood only) 37.3 % (42-52); Hemoglobin 12.5 g/dL (14.0-18.0); Mean Corpuscular Hemoglobin 27.2 pg (25-34); Mean Corpuscular Hgb Conc 33.5 g/dL (32-36); Mean Corpuscular Volume 81.1 fL (80-100); Mean Platelet Volume 9.7 fL (7.4-10.4); Platelet Count 202 K/uL (130-400); RDW Coefficient of Variation 18.1 % (11.5-14.5); RDW Standard Deviation 54.2 fL (36.4-46.3); White Blood Count 6.69 K/uL (4.8-10.8)
[2020-08-17] MEDS ORDERED: NICOTINE 21 MG/24 HR TDSY TD SCH (09:00)
[2020-08-17 09:18] LABS: BUN Creatinine Ratio 6.3 (10-20); Calcium 8.5 mg/dl (8.5-10.1); Est GFR (African American) 125.3; Est GFR (Non-African American) 108.1; Potassium 3.6 mmol/L (3.5-5.1)
[2020-08-17] MEDS ORDERED: NALOXONE HCL 0.4 MG/1 ML VIAL/CARP IV STA (11:09)
--- NOTE | 2020-08-17 18:12 | Hospitalist Progress Note ---
Date of Service August 17, 2020 Assessment & Plan (1) GIB (gastrointestinal bleeding): (2) Colitis: -Patient presenting from home with reports of bright red bleeding per rectum and LLQ abdominal pain no active GI bleeding noted Hb drop noted from 16-> 12 possible dilution , pt recived IV fluid cont clear liquid diet , DC IVF repeat CBC in AM -EGD 09/2018: WNL, colonoscopy 2017: Polyps, diverticulosis of the sigmoid colon, internal hemorrhoids -GI consulted -awating inputg (3) Acute hypokalemia: replaced (4) History of pulmonary embolism: (5) History of DVT (deep vein thrombosis): -History of DVT 09/2018 and was placed on Eliquis, developed pulmonary embolism 12/2018 while on Eliquis, then started on Coumadin -Patient stopped taking Coumadin a couple months ago,ng resolved/stabilized given poor compliance /alcohol abuse , may not be a candidate for anticoagulation Increased sedation : hold scheduled dose of Kolopin , neurontin and sedatived drugs monitor (6) Alcohol abuse: -Patient reports drinking 2 drinks/night for the past 1 year since the passing of his partner -Monitor for signs of alcohol withdrawal, as needed Ativan per scoring protocol (7) HIV (human immunodeficiency virus infection): -Continue HAART therapy - -Has an appointment with [facility] infectious disease 10/2020 (8) Hypertension: -BP controlled, continue amlodipine and metoprolol (9) Seizure disorder: -Stable, no recent seizures -Continue Keppra (10) History of CVA (cerebrovascular accident): -Hold aspirin due to GI bleeding -Continue statin (11) Chronic pain syndrome: -Continue home medications (12) DVT prophylaxis: -SCDs due to GI bleeding Admission and Anticipated Discharge Date Admission Date: August 16, 2020 Review of Systems Review of Systems: All systems reviewed & are unremarkable except as noted in Subjective Physical Exam Constitutional: WD/WN, vitals as above Eyes: PERRL, conjunctivae normal, anicteric sclerae ENMT: external ear and nose normal, oropharynx normal Respiratory: normal respiratory effort, lungs clear to auscultation Cardiovascular: Rate/Rhythm: regular rhythm and + tachycardic Vessels: normal peripheral pulses Extremities: no edema Gastrointestinal (Abdomen): Inspection/Auscultation: normal bowel sounds; abdomen not distended Percussion/Palpation: + abdomen tender (LLQ) and abdomen soft; no hepatosplenomegaly Musculoskeletal: Extremities: no cyanosis and no clubbing Skin: no rashes, warm and dry Neurologic: PERRL, EOMI, accommodation nl, no face palsy, no dysarthria Psychiatric: A+Ox3, euthymic affect Results & Data Results & Data ([facility]) Vital Signs (Past 12 Hours) Vital Signs Temp Pulse Pulse Resp BP Pulse Ox 08/17/20 17:35 85 08/17/20 16:21 36.3 C L 83 18 116/79 98 08/17/20 12:30 36.5 C 96 H 16 106/73 96 08/17/20 07:50 36.8 C 103 H 18 139/92 95 08/17/20 07:30 86 (1) GIB (gastrointestinal bleeding) GI bleed type/associated pathology: unspecified gastrointestinal hemorrhage type Qualified Code(s): K92.2 - Gastrointestinal hemorrhage, unspecified (2) HIV (human immunodeficiency virus infection) HIV symptom status: unspecified Qualified Code(s): B20 - Human immunodeficiency virus [HIV] disease (3) Hypertension Hypertension type: essential hypertension Qualified Code(s): I10 - Essential (primary) hypertension
[2020-08-17] MEDS ORDERED: FUROSEMIDE 20 MG TAB PO PRN (18:41)
[2020-08-17] MEDS: ATORVASTATIN 40 MG TAB PO SCH (21:01)
[2020-08-17] MEDS: NICOTINE 21 MG/24 HR TDSY TD SCH (21:03)
[2020-08-18 06:41] LABS: Hematocrit (blood only) 34.5 % (42-52); Hemoglobin 11.6 g/dL (14.0-18.0)
[2020-08-18] MEDS: levETIRAcetam 500 MG TAB PO SCH ×2 (08:41→21:20)
[2020-08-18] MEDS: SACCHAROMYCES BOULARDII 250 MG CAP PO SCH ×2 (08:41→21:19)
[2020-08-18] MEDS: RITONAVIR 100 MG TAB PO SCH ×2 (08:42→21:19)
[2020-08-18] MEDS: RALTEGRAVIR POTASSIUM 400 MG TAB PO SCH ×2 (08:42→21:20)
[2020-08-18] MEDS: DARUNAVIR ETHANOLATE 600 MG TAB PO SCH ×2 (08:43→16:45)
[2020-08-18] MEDS: amLODIPine BESYLATE 5 MG TAB PO SCH (08:43)
[2020-08-18] MEDS: DULoxetine HCL 60 MG CAP PO SCH (08:43)
[2020-08-18] MEDS: FOLIC ACID 1 MG TAB PO SCH (08:43)
[2020-08-18] MEDS: FLUTICASONE/VILANTEROL 100/25MCG 14 PUFFS/INHALER INH SCH (08:44)
[2020-08-18] MEDS: THIAMINE HCL 100 MG TAB PO SCH (08:44)
[2020-08-18] MEDS: METOPROLOL SUCC 50MG EXT REL TAB PO SCH (08:44)
--- NOTE | 2020-08-18 11:21 | Gastroenterology Progress Note ---
Date of Service August 18, 2020 Assessment & Plan (1) Colitis: (2) GIB (gastrointestinal bleeding): persistent, with worsening anemia. Recs: -clear liquid diet today - golytely prep starting at 6 pm tonight - flex sig/colonoscopy tomorrow as planned as he is not improving -NPO post midnight except for prep Admission and Anticipated Discharge Date Admission Date: August 16, 2020 Subjective patient continues to have black stools and blood loss, noted to have colitis on imaging, also notes abdominal pains. hgb 11.6 this morning. afebrile, VSS. Review of Systems Constitutional: no fever and no chills Respiratory: no cough, no dyspnea and no dyspnea on exertion Cardiovascular: no chest pain and no dyspnea Gastrointestinal: as per Subjective / HPI Psychiatric: no depression and no anxiety Physical Exam Constitutional: WD/WN, vitals as above Respiratory: normal respiratory effort, lungs clear to auscultation Cardiovascular: RRR, no murmur, no edema Gastrointestinal (Abdomen): Inspection/Auscultation: normal bowel sounds Percussion/Palpation: + abdomen tender (mild diffuse) and abdomen soft Musculoskeletal: no lower extremity edema Psychiatric: A+Ox3, euthymic affect Results & Data Results & Data ([facility]) Vital Signs (Past 12 Hours) Vital Signs Temp Pulse Resp BP Pulse Ox 08/18/20 07:06 36.9 C 84 18 122/72 96 08/17/20 23:16 36.8 C 84 18 102/61 97 PG Care Time/CCT Total # of Minutes Spent Total Time Spent with Patient: Total time spent is greater than 50% in coordination of care (as documented) at patient's floor/unit and/or counseling patient: Coding Level of Care Code 07147 Subseq Hosp Care Lvl 3 Diagnoses Colitis K52.9 GIB (gastrointestinal bleeding) K92.2 GI bleed type/associated pathology: unspecified gastrointestinal he morrhage type (1) GIB (gastrointestinal bleeding) GI bleed type/associated pathology: unspecified gastrointestinal hemorrhage type Qualified Code(s): K92.2 - Gastrointestinal hemorrhage, unspecified
[2020-08-18] MEDS: PANTOprazole 40 MG in SYRINGE 0 ML IV SCH ×2 (14:30→21:19)
[2020-08-18] MEDS: CIPROFLOXACIN / D5W 400 MG/200 ML BAG IV SCH (14:31)
[2020-08-18] MEDS: metroNIDAZOLE 500 MG/100 ML BAG IV SCH ×2 (14:32→23:40)
[2020-08-18] MEDS ORDERED: LORazepam 1 MG/2 ML VIAL IV PRN (16:37)
[2020-08-18] MEDS ORDERED: MoRPHine SULFATE 2 MG/ML CARP IV PRN (16:37)
--- NOTE | 2020-08-18 16:45 | Hospitalist Progress Note ---
Date of Service August 18, 2020 Assessment & Plan (1) GIB (gastrointestinal bleeding): continues to have dark /melanotic stool acute blood loss anemia : Hb drop noted 16-> 12-> 11 repeat lab in pm appreciate input from GI team plan for flex sig vs colonoscopy in am Pt reports of taking Ibuprofen 1-2 tablets intermittent IV PPI BID (2) Colitis: -Patient presenting from home with reports of bright red bleeding per rectum and LLQ abdominal pain CT abdomen shows bowel wall thickening possible colitis stool c diff negative started on IV Cipro/Flagyl , -EGD 09/2018: WNL, colonoscopy 2017: Polyps, diverticulosis of the sigmoid colon, internal hemorrhoids -GI consulted -awaiting input (3) Acute hypokalemia: replaced (4) History of pulmonary embolism: (5) History of DVT (deep vein thrombosis): -History of DVT 09/2018 and was placed on Eliquis, developed pulmonary embolism 12/2018 while on Eliquis, then started on Coumadin -Patient stopped taking Coumadin a couple months ago,ng resolved/stabilized given poor compliance /alcohol abuse , may not be a candidate for anticoagulation (6) Alcohol abuse: -Patient reports drinking 2 drinks/night for the past 1 year since the passing of his partner no s/s of withdrawal Anxiety disorder: Iv Ativan PRN for anxiety hold for sedation (7) HIV (human immunodeficiency virus infection): -Continue HAART therapy - -Has an appointment with [facility] infectious disease 10/2020 (8) Hypertension: -BP controlled, continue amlodipine and metoprolol (9) Seizure disorder: -Stable, no recent seizures -Continue Keppra (10) History of CVA (cerebrovascular accident): -Hold aspirin due to GI bleeding -Continue statin (11) Chronic pain syndrome: -Continue home medications (12) DVT prophylaxis: -SCDs due to GI bleeding Disposition : will be discharged home when medically stable Admission and Anticipated Discharge Date Admission Date: August 18, 2020 Subjective Follow up visit for anemia/Gi bleed had > 2 episodes of dark bowel movements today complains of pain on lower abdomen/bilateral -feels like cramps no nausea or vomiting wants to have something for his anxiety ( pt was on Klonopin , Oxycodon , kept on hold yesterday for oversedation ) Review of Systems Review of Systems: All systems reviewed & are unremarkable except as noted in Subjective Physical Exam Constitutional: WD/WN, vitals as above Eyes: PERRL, conjunctivae normal, anicteric sclerae ENMT: external ear and nose normal, oropharynx normal Respiratory: normal respiratory effort, lungs clear to auscultation Cardiovascular: Rate/Rhythm: regular rhythm and + tachycardic Vessels: normal peripheral pulses Extremities: no edema Gastrointestinal (Abdomen): Inspection/Auscultation: normal bowel sounds; abdomen not distended Percussion/Palpation: + abdomen tender (LLQ) and abdomen soft; no hepatosplenomegaly Musculoskeletal: Extremities: no cyanosis and no clubbing Skin: no rashes, warm and dry Neurologic: PERRL, EOMI, accommodation nl, no face palsy, no dysarthria Psychiatric: A+Ox3, euthymic affect Results & Data Results & Data ([facility]) Vital Signs (Past 12 Hours) Vital Signs Temp Pulse Resp BP Pulse Ox 08/18/20 14:44 36.7 C 93 H 16 106/72 99 08/18/20 07:06 36.9 C 84 18 122/72 96 (1) GIB (gastrointestinal bleeding) GI bleed type/associated pathology: unspecified gastrointestinal hemorrhage type Qualified Code(s): K92.2 - Gastrointestinal hemorrhage, unspecified (2) HIV (human immunodeficiency virus infection) HIV symptom status: unspecified Qualified Code(s): B20 - Human immunodeficiency virus [HIV] disease (3) Hypertension Hypertension type: essential hypertension Qualified Code(s): I10 - Essential (primary) hypertension
[2020-08-18] MEDS ORDERED: LAVAGE SOLUTION 4000ML PO SCH (18:00)
[2020-08-18 18:49] LABS: Hematocrit (blood only) 35.1 % (42-52); Hemoglobin 11.9 g/dL (14.0-18.0)
[2020-08-18] MEDS: NICOTINE 21 MG/24 HR TDSY TD SCH (21:21)
[2020-08-19] MEDS: CIPROFLOXACIN / D5W 400 MG/200 ML BAG IV SCH (02:52)
[2020-08-19] MEDS: metroNIDAZOLE 500 MG/100 ML BAG IV SCH (05:54)
[2020-08-19 06:18] LABS: Hematocrit (blood only) 36.1 % (42-52); Mean Corpuscular Hemoglobin 26.9 pg (25-34); Mean Corpuscular Hgb Conc 33.2 g/dL (32-36); Mean Corpuscular Volume 80.9 fL (80-100); Mean Platelet Volume 9.1 fL (7.4-10.4); Platelet Count 209 K/uL (130-400); RDW Coefficient of Variation 17.5 % (11.5-14.5); RDW Standard Deviation 51.9 fL (36.4-46.3); Red Blood Count 4.46 M/uL (4.7-6.1); White Blood Count 5.23 K/uL (4.8-10.8)
[2020-08-19 06:48] LABS: BUN Creatinine Ratio 5.9 (10-20); Calcium 8.3 mg/dl (8.5-10.1); Creatinine Clr Calc Pharmacy 114.7 ml/min; Est GFR (African American) 118.2; Potassium 3.6 mmol/L (3.5-5.1)
--- NOTE | 2020-08-19 08:26 | Gastroenterology Progress Note ---
Date of Service August 19, 2020 Assessment & Plan (1) GIB (gastrointestinal bleeding): (2) Colitis: Pt is a 55 y/o male w hx of rectal ca in situe s/p resection who presented last week w abd pain, diarrhea, rectal bleeding, black stools (likely from Peptobismol use). CT w evidence of non specific L sided colitis. Hx of Amoxicillin use, Cdiff, stool cx negative. He was scheduled for flex sig vs colonoscopy this AM however didn't complete bowel prep. He is no longer having s/s of GI bleeding. Blood ct stable. Abd exam benign. He opted to reschedule his procedure in outpt setting. - Will cancel endo procedures, and reschedule for outpt workup - No contraindication for DC home from GI standpoint. Pls recall GI prn Admission and Anticipated Discharge Date Admission Date: August 18, 2020 Supervising Physician Co-Signing Physician Notes I have seen and examined the patient with Cain Mott. RAOUL whose note reflects our findings and plan. No bleeding overnight. Did not drink much of the prep. No abd pain. Discussed proceeding with outpatient colonoscopy. Patient agreeable. Abd exam is benign. Subjective Pt didn't complete bowel prep. He is having soft brown stools in small amt. Denies having any more rectal bleeding. Denies also any abd pain, n/v. He would like to reschedule his flex sig/colonoscopy as outpt. Review of Systems Review of Systems: All systems reviewed & are unremarkable except as noted in HPI & below Physical Exam Constitutional: WD/WN, vitals as above cooperative and comfortable Eyes: PERRL, conjunctivae normal, anicteric sclerae ENMT: external ear and nose normal, oropharynx normal Respiratory: normal respiratory effort, lungs clear to auscultation Cardiovascular: RRR, no murmur, no edema Gastrointestinal (Abdomen): normal bowel sounds, soft, nontender, no hepatosplenomegaly Skin: no rashes, warm and dry no jaundice Psychiatric: A+Ox3, euthymic affect Lymphatic: no lymphedema Results & Data ([facility]) Vital Signs (Past 12 Hours) Vital Signs Temp Pulse Resp BP Pulse Ox 08/19/20 07:24 36.8 C 79 18 137/85 98 08/18/20 23:14 36.5 C 79 18 128/79 95 (1) GIB (gastrointestinal bleeding) GI bleed type/associated pathology: unspecified gastrointestinal hemorrhage type Qualified Code(s): K92.2 - Gastrointestinal hemorrhage, unspecified
[2020-08-19] MEDS: THIAMINE HCL 100 MG TAB PO SCH (09:12)
[2020-08-19] MEDS: RITONAVIR 100 MG TAB PO SCH (09:12)
[2020-08-19] MEDS: DULoxetine HCL 60 MG CAP PO SCH (09:12)
[2020-08-19] MEDS: METOPROLOL SUCC 50MG EXT REL TAB PO SCH (09:13)
[2020-08-19] MEDS: FOLIC ACID 1 MG TAB PO SCH (09:13)
[2020-08-19] MEDS: amLODIPine BESYLATE 5 MG TAB PO SCH (09:13)
[2020-08-19] MEDS: DARUNAVIR ETHANOLATE 600 MG TAB PO SCH (09:13)
[2020-08-19] MEDS: levETIRAcetam 500 MG TAB PO SCH (09:14)
[2020-08-19] MEDS: PANTOprazole 40 MG in SYRINGE 0 ML IV SCH ×2 (09:14→09:21)
[2020-08-19] MEDS: RALTEGRAVIR POTASSIUM 400 MG TAB PO SCH (09:15)
[2020-08-19] MEDS: SACCHAROMYCES BOULARDII 250 MG CAP PO SCH (09:15)
[2020-08-19] MEDS: FLUTICASONE/VILANTEROL 100/25MCG 14 PUFFS/INHALER INH SCH (09:16)
--- NOTE | 2020-08-19 12:08 | Discharge Summary ---
Date of Service August 19, 2020 Admission HPI Per Admitting Provider 55-year-old male with PMH HIV, COPD, history of CVA with left-sided hemiplegia, colon cancer s/p resection, chronic pain syndrome, history of DVT and pulmonary embolism previously anticoagulated on Coumadin, and other problems listed below who presents the ED for evaluation of abdominal pain and bright red bleeding per rectum. Patient reports symptoms began 2 days ago. Reports a left lower quadrant abdominal pain. Has had several episodes of diarrhea with bright red blood. Took Pepto-Bismol last evening and reports stools were black and coffee- ground like this morning. Patient reports a poor appetite however no nausea or vomiting. Denies fevers and chills. No chest pain or shortness of breath. Denies lightheadedness, dizziness, diaphoresis, syncopal events. No urinary symptoms. In the ED, patient is mildly tachycardic otherwise hemodynamically stable. Hgb stable at 16.2. K+ 2.8. CT ABD/pelvis shows a nonspecific colitis of the distal sigmoid colon. Patient was given IV morphine, IV Zofran, p otassium replacement, IVF, and started on Protonix drip. Principal Diagnosis Blood in stool /Blood loss anemia GI bleed resolved Discharge Exam Constitutional WD/WN, vitals as above Eyes PERRL, conjunctivae normal, anicteric sclerae ENMT external ear and nose normal, oropharynx normal Respiratory normal respiratory effort, lungs clear to auscultation Cardiovascular Rate/Rhythm: regular rhythm and + tachycardic Vessels: normal peripheral pulses Extremities: no edema Gastrointestinal (Abdomen) Inspection/Auscultation: normal bowel sounds; abdomen not distended Percussion/Palpation: + abdomen tender (LLQ) and abdomen soft; no hepatosple nomegaly Musculoskeletal Extremities: no cyanosis and no clubbing Skin no rashes, warm and dry Neurologic PERRL, EOMI, accommodation nl, no face palsy, no dysarthria Psychiatric A+Ox3, euthymic affect Discharge Data Allergies Allergy/AdvReac Type Severity Reaction Status Date / Time Penicillins Allergy Severe ANAPHYLAXIS Verified 08/16/20 11:53 niacin Allergy Intermediate RASH Verified 08/16/20 11:53 Sulfa (Sulfonamide Allergy Intermediate "ITCHY Verified 08/16/20 11:53 Antibiotics) RASH" tramadol Allergy Mild RASH Verified 08/16/20 11:53 azithromycin Allergy Unknown Verified 08/16/20 11:53 meloxicam AdvReac Intermediate GI SYMPTOMS Verified 08/16/20 11:53 shellfish derived AdvReac Intermediate gi symptoms Verified 08/16/20 11:53 topiramate AdvReac Intermediate NAUSEA Verified 08/16/20 11:53 Consultations 08/16/20 13:14 ED Decision to Admit Stat 08/16/20 17:02 Consult Case Management - Discharge Planning Routine Consult Gastroenterology Routine Procedures Performed Operation Date: 08/19/20 08:30 <No data on this case meets the specified criteria> Ordered Studies 08/16/20 10:33 CT abd pelvis IV con only Stat Hospital Course (1) GIB (gastrointestinal bleeding): Patient presented with dark /melanotic stool Hb drop noted 16-> 12-> 11 Repeat hemoglobin this morning stable 12, Patient was seen by GI team was scheduled for flexible sigmoidoscopy versus colonoscopy this morning Patient did not complete the bowel prep, t he had soft brown stool, does not have any abdominal pain no nausea, he likes to reschedule his for flexible sigmoidoscopy colonoscopy as an outpatient. Evaluated by GI team,-stable to be discharged home, GI will reschedule the outpatient work-up and clinic Patient is consulted to avoid taking NSAIDs, return back to ER or contact clinic with any recurrence of GI bleed or dark stool Lab work: CBC check with next physician visit, patient is scheduled to have hospital follow-up with family physician within next week (2) Colitis: -Patient presenting from home with reports of bright red bleeding per rectum and LLQ abdominal pain CT abdomen shows bowel wall thickening possible colitis stool c diff negative Patient does not have any elevated white count no fever chills, no abdominal pain tolerating diet -EGD 09/2018: WNL, colonoscopy 2017: Polyps, diverticulosis of the sigmoid colon, internal hemorrhoids -GI consulted -was scheduled for colonoscopy this morning, patient refused, wants to have the procedure done as outpatient Will be discharged home today, per GI does not need any continued antibiotic, (3) Acute hypokalemia: Normal potassium level (4) History of pulmonary embolism: (5) History of DVT (deep vein thrombosis): -History of DVT 09/2018 and was placed on Eliquis, developed pulmonary embolism 12/2018 while on Eliquis, then started on Coumadin -Patient stopped taking Coumadin a couple months ago,ng resolved/stabilized given poor compliance /alcohol abuse , may not be a candidate for anticoagula tion (6) Alcohol abuse: -Patient reports drinking 2 drinks/night for the past 1 year since the passing of his partner no s/s of withdrawal Patient is counseled multiple time to avoid drinking alcohol, which can cause worsening of acid reflux, stomach ulcer, GI bleed Patient voiced understanding (7) HIV (human immunodeficiency virus infection): -Continue HAART therapy - -Has an appointment with [facility] infectious disease 10/2020 (8) Hypertension: -BP controlled, continue amlodipine and metoprolol (9) Seizure disorder: -Stable, no recent seizures -Continue Keppra (10) History of CVA (cerebrovascular accident): -No deficit (11) Chronic pain syndrome: -Continue home medications (12) DVT prophylaxis: -SCDs due to GI bleeding Disposition : Patient is stable to be discharged home today Total Time Total Time Spent Total Time Spent (In Minutes): 35 minutes Total Time Includes: Discharge Planning and Medication Reconciliation Discharge Plan Discharge Items Patient Disposition: Home - Self-Care Reason For Visit: COLITIS, HYPOKALEMIA Discharge Diagnosis: Blood in stool /Blood loss anemia GI bleed resolved Activity: Resume your previous activity Non-emergency contact: Primary Care Provider Call non-emergency contact if: you have any medication questions Follow-up/Referrals: Alexandr Elder DO [Primary Care Provider] - (Date & Time 08/23/2020 11:20 AM Provider Jacky Ugarte DO Department [facility] ) Diet: Low Fiber Addtl Attending Provider Instructions: Please take all medications as instructed on discharge list below. follow-up with your primary care physician within 1 weeks of hospital discharge to ensure you are still doing well.-appointment scheduled Lab work : Complete blood work with next Doctors visit to assess for anemia Please call if you have any questions or problems. You can reach a [facility] hospitalist on duty at [facility] 24 hours a day by calling [phone] Do not take meloxicam and avoid group of medications belonging to NSAIDs group - can cause worsening of your kidney function. List Of these medications includes but not limited to: Diclofenac Ibuprofen, Motrin, Advil Toradol,ketorolac Naproxen, Aleve, Naprosyn You can take Tylenol as needed for pain or fever When buying [id number] pain medications please consult with pharmacy if you are not sure regarding ingredients, as a lot of the pain medications have combination of NSAIDs and Tylenol. Pending Studies at Discharge: No Stand-Alone Forms: [facility], Smoking Cessation Medications and DC Order Prescriptions: Continued ritonavir 100 mg tablet 100 mg PO BID Qty: 180 RF: 1 Isentress 400 mg tablet 400 mg PO BID Qty: 180 RF: 1 Prezista 600 mg tablet 600 mg PO BIDM Qty: 180 RF: 1 aspirin 81 mg tablet,delayed release (DR/EC) 81 mg PO QAM RF: 0 furosemide [Lasix] 20 mg Tablet 20 mg PO QAM PRN (Reason: Swelling) RF: 0 fluticasone propionate [Flonase Allergy Relief] 50 mcg/actuation [place],Suspension 2 spray INTRANASAL QAM PRN (Reason: post-nasal drip) RF: 0 budesonide-formoterol [Symbicort] 160-4.5 mcg/actuation Hfa Aerosol Inhaler 2 puff INHALATION Q12H RF: 0 folic acid 1 mg Tablet 1 mg PO QAM RF: 0 gabapentin [Neurontin] 800 mg Tablet 800 mg PO TID RF: 0 amlodipine [Norvasc] 5 mg tablet 5 mg PO QAM RF: 0 albuterol sulfate [Ventolin HFA] 90 mcg/actuation HFA aerosol inhaler 2 puff inhalation BID PRN (Reason: Shortness Of Breath) RF: 0 ondansetron 4 mg tablet,disintegrating 4 mg PO Q8H PRN (Reason: Nausea And Vomiting) RF: 0 Saccharomyces boulardii [Florastor] 250 mg capsule 250 mg PO BID Qty: 20 RF: 0 duloxetine [Cymbalta] 60 mg Capsule,Delayed Release(Dr/Ec) 60 mg PO QAM RF: 0 ipratropium-albuterol 0.5 mg-3 mg(2.5 mg base)/3 mL Solution For Nebulization 3 ml INHALATION Q4H PRN (Reason: Shortness Of Breath Or Wheezing) RF: 0 omeprazole 20 mg Capsule,Delayed Release(Dr/Ec) 20 mg PO DAILYBB RF: 0 metoprolol succinate [Toprol XL] 50 mg tablet extended release 24 hr 50 mg PO QAM RF: 0 lorazepam 1 mg tablet 1 mg PO BID PRN (Reason: Anxiety) RF: 0 atorvastatin 80 mg Tablet 80 mg PO HS RF: 0 levetiracetam 500 mg Tablet 1,500 mg PO BID RF: 0 clonazepam 2 mg tablet 2 mg PO BID RF: 0 zaleplon 10 mg Capsule 10 mg PO HS PRN (Reason: Insomnia) RF: 0 ramelteon 8 mg Tablet 8 mg PO HS RF: 0 oxycodone 10 mg tablet 10 mg PO Q6H PRN (Reason: Pain) RF: 0 Discharge Orders: Discharge Order (Routine); Ordered 08/19/20 Ordered By: Cheryl Veloz Admission Data Admit Date/Time: 08/18/20 14:08 Attending Provider: Cheryl Veloz Admit Provider: Cheryl Veloz Primary Care Provider: Alexandr Elder Other Providers: Cheryl Veloz ; Bernardo Farmer Other Interventions: Discharge Summary Assessment (RN) Last Done: 08/19/20 10:47
[2020-08-21 23:12] LABS: HIV 1 RNA PCR Copies/ML 1720 copies/mL (NOT DETECTED); HIV-1 RNA Log Copies/mL 3.24 (NOT DETECTED); LSP % Cells Analyzed CD4 23 % (30-61); LSP % of Cells Analyzed CD8 43 % (12-42); LSP Absolute Count CD8 595 cells/uL (180-1170); LSP Absolute Ct CD4 315 cells/uL (490-1740); LSP CD4/CD8 Ratio 0.53 (0.86-5.00); LSP Lymphocytes Absolute 1379 cells/uL (850-3900); Lymphocyte Subset Pan Comment DNR
== END 2020-08-19 11:07 | disposition home or self-care (01) | DRG 378 ==
LOC: 2N 10:20 → ED 10:20 → 2N 16:33

== ENCOUNTER 2020-08-31 16:19 | Inpatient (IN) ==
[2020-08-31] MEDS ORDERED: MULTI-VITAMIN INFUSION 10 ML, THIAMINE HCL 100 MG, FOLIC ACID 1 MG in SODIUM CHLORIDE 0... IV ONE (16:27)
[2020-08-31] MEDS ORDERED: hydrOXYzine HCl 25 MG TAB PO STA (16:27)
[2020-08-31] MEDS ORDERED: ACETAMINOPHEN 1,000 MG/100 ML VIAL IV STA (16:41)
--- NOTE | 2020-08-31 16:48 | Emergency Department Note ---
Impression & Plan Chest pain, Anxiety ED Provider Note NAME: CHERIE CHENG AGE: 55 SEX: M : 1965 ARRIVES VIA: Ambulance INFORMANT: Patient, EMS ED PROVIDER(S): Sascha Turner MD CHIEF COMPLAINT: fall, left shoulder pain, chest pain HPI: This is a 55-year-old male who presents emergency department complaining of left-sided chest pain that he describes as a burning sharp sensation with radiation into his back. The patient reports he has a cardiac history as well as HIV positive and is known alcohol abuse. He reports he smokes a pack a day. 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 The patient reports he fell today into his TV knocking his TV and his medications over. He did not take any of his medications this morning over concerns that they were all mixed up. He reports nothing makes the chest pain better or worse. He was given aspirin as well as 2 nitro in the ambulance on the way to the emergency department he reports the nitro did nothing for his pain. Upon arrival to the emergency department the patient is complaining of anxiety that is "creeping up his neck". ROS: See above HPI for pertinent positives & negatives. A total of 10 systems reviewed and were otherwise negative. PAST MEDICAL HISTORY: See Below PAST SURGICAL HISTORY: See Below FAMILY HISTORY: See Below SOCIAL HISTORY: See Below HOME MEDICATIONS: See Below ALLERGIES: See Below VITALS: See Below PHYSICAL EXAMINATION: VITAL SIGNS - Vital signs and nursing notes were reviewed. GENERAL - 55-year-old male appearing stated age who is in no acute distress. Communicates well with provider and answers questions appropriately. falling asleep on exam SKIN - Without rashes. HEAD - NC/AT. EYES - PERRL with EOMI bilaterally. Sclera anicteric. Palpebral conjunctiva pink and moist with no injection noted. EARS - No deformities of external structures noted on gross examination bilaterally. NOSE - Midline and without cyanosis. No epistaxis or purulent drainage noted. Septum midline without deviation or septal hematoma noted. MOUTH/OROPHARYNX - Without perioral cyanosis. Buccal mucosa pink and moist and without leukoplakia. Tongue midline with equal elevation of palate bilaterally. No tonsillar hypertrophy, erythema, or exudates noted. dentition noted. NECK - Neck with FROM. Supple to palpation. lymphadenopathy noted. No nuchal rigidity. LUNGS - Chest wall symmetric without accessory muscle use, intercostals retractions, or central cyanosis. Normal vesicular breath sounds CTA B/L. No wheezes, rales, or rhonchi appreciated. CARDIAC - RRR with S1/S2. No murmur, rubs, or gallops appreciated. ABDOMEN - Abdominal contour without pulsations or visible masses. BS normoactive all four quadrants. No tenderness, palpable masses, hepatosplenomegaly, or ascites noted. EXTREMITIES - No clubbing or peripheral cyanosis. No pretibial edema present. +3/5 radial, posterior tibial, and dorsalis pedis pulses palpated throughout. +5/5 strength noted in UE/LE bilaterally. NEUROLOGIC - Cranial nerves II through XII grossly intact. Sensory intact to light touch throughout. Patellar reflexes +2/4. PSYCH - A&Ox3 and cooperates fully with examiner. Pt is very pleasant and interacts well with examiner. MEDICAL DECISION MAKING: Patient was seen and evaluated as above in room B11. Review was performed of nursing notes and vital signs. I did review pertinent previous visits and patient history. After obtaining a thorough history and physical examination the above work up was performed. This is a 55-year-old male who presents emergency department complaining of left-sided chest pain. Patient has a history of blood clots and DVTs however it appears he has not been taking his Coumadin as his INR is 1.0. His D-dimer is elevated here therefore he was sent for CAT scan of the chest. The patient's major complaint here in the emergency department is his anxiety. He was originally given 50 mg of Vistaril here however I was called back to the bedside because the patient was complaining of more anxiety. I will note at that time he was sleeping soundly. At this point the patient is refusing to be discharged home. I did discuss the case with the hospitalist service who did agree to admit the patient. An order was placed for continuous cardiac monitoring. The monitor shows a rate of 111 with Normal SInus rhythm. The patient was evaluated during a period of high volume and high acuity during the global COVID-19 pandemic, and that diagnosis was suspected/considered upon their initial presentation. Their evaluation, treatment and testing was consistent with current guidelines for patients who present with complaints or symptoms that may be related to COVID-19. Patient was seen while provider was wearing PPE. Triage Nursing notes reviewed. Prior medical records reviewed Vital Signs: reviewed and remarkable for no significant abnormalities Differential diagnosis: Cardiac ischemia, aortic dissection, pulmonary embolism, pneumothorax, pneumonia, pericarditis, myocarditis, esophageal rupture, GERD, cholecystitis, pancreatitis, musculoskeletal, as well as other pathologies. ER treatment provided: See below Diagnostics interpreted by me: ECG: EKG shows a sinus tachycardia, vent rate of 115, QTC [address] elevation or depression, EKG is compared to August 16, 2020. It is unchanged from previous Repeat EKG at 1752 shows a normal sinus rhythm no ST elevation or depression prolonged QT QTC is 514 ventricular rate is 91 it is unchanged from previous EKG Laboratory studies: As stated above and show below. Imaging studies: [facility], [place] [phone] XRay Report Patient: CHERIE CHENG Admit Date: 08/31/20 MR#: [id number] Address1: [address] Acct ID:[id number] Address2: Date: 1965 [facility] Zip: [place] [address] Age: 55 Location: ED Sex: M Room/Bed: Att Phy: Diagnosis: CHEST DISCOMFORT, FALL, L SHOULDER PAIN Brandee Phy: Alexandr Elder DO Service Date: 08/31/20 Fam Phy: Interpreting Phy: Philip Hair MD Admit Phy: Ordering Phy: Sascha Turner MD cc: ~ LEFT SHOULDER 3 VIEWS HISTORY: Pt c/o left shoulder pain COMPARISON: None. FINDINGS: There is no fracture or dislocation. Soft tissues are unremarkable. Left clavicle is intact. IMPRESSION: No fracture or dislocation within the left shoulder. ACT 112: Negative or not required by law. Electronically signed by: Philip Hair M.D. 08/31/2020 4:53 PM Dictated: 08/31/201650 Transcribed: 08/31/201650 [facility], [place] [phone] XRay Report Patient: CHERIE CHENG Admit Date: 08/31/20 MR#: [id number] Address1: [address] Acct ID:[id number] Address2: Date: 1965 [facility] Zip: [place] [address] Age: 55 Location: ED Sex: M Room/Bed: Att Phy: Diagnosis: CHEST DISCOMFORT, FALL, L SHOULDER PAIN Brandee Phy: Alexandr Elder DO Service Date: 08/31/20 Fam Phy: Interpreting Phy: Philip Hair MD Admit Phy: Ordering Phy: Sascha Turner MD cc: ~ XR chest 1V portable HISTORY: Atypical Chest Pain COMPARISON: 07/09/2019. FINDINGS: The lungs are clear. Cardiac silhouette is normal in size. No pleural effusions. No pneumothorax. IMPRESSION: No acute process. ACT 112: Negative or not required by law. Electronically signed by: Philip Hair M.D. 08/31/2020 4:54 PM Dictated: 08/31/201653 Transcribed: 08/31/20 [address], [place] [phone] CT Scan Report Patient: CHERIE CHENG Admit Date: 08/31/20 MR#: [id number] Address1: [address] [place] [address] Acct ID:[id number] Address2: Date: 1965 [facility] Zip: [place] [address] Age: 55 Location: ED Sex: M Room/Bed: Att Phy: Diagnosis: CHEST DISCOMFORT, FALL, L SHOULDER PAIN Brandee Phy: Alexandr Elder DO Service Date: 08/31/20 [facility] Phy: Interpreting Phy: Philip Hair MD Admit Phy: Ordering Phy: Sascha Turner MD cc: ~ CHEST CTA for PULMONARY ARTERIES CT DOSE: 438.99 mGy.cm HISTORY: Left-sided chest pain. TECHNIQUE: Multiaxial CT images of the chest were performed following the intravenous administration of contrast to evaluate the pulmonary arteries. Maximal intensity projection images were also obtained. A dose lowering technique was utilized adhering to the principles of ALARA. COMPARISON STUDY: Chest CTA 07/09/2019. FINDINGS: Mild aneurysmal dilatation of the ascending thoracic aorta measuring up to 4 cm in diameter. No evidence for an aortic dissection. No pleural or pericardial effusions. The heart is normal in size. Moderate calcified plaque within the left coronary arteries. No filling defects within the pulmonary arteries to suggest pulmonary embolus. Limited views the upper abdomen demonstrate a normal spleen and adrenal glands. Hepatic steatosis. Normal caliber esophagus. No mediastinal or hilar lymphadenopathy. No fractures within the visualized osseous structures. No pneumothorax. The central airways are patent. Mild emphysema. Groundglass densities within the lung bases posteriorly favor nondependent change. Otherwise, no focal lung consolidations to suggest pneumonia. IMPRESSION: 1. No evidence for pulmonary embolus. 2. Mild emphysema. 3. Mild aneurysmal dilatation of the ascending thoracic aorta measuring up to 4 cm in diameter. No evidence for an aortic dissection. ACT 112: Negative or not required by law. Electronically signed by: Philip Hair M.D. 08/31/2020 6:33 PM Dictated: 08/31/201821 Transcribed: 08/31/201821 Consultation(s): hospitalist Past Med/Surg History Medical History Alcohol abuse Anal dysplasia Anxiety AVM (arteriovenous malformation) brain Carotid stenosis "03/06/15-SAÚL occlusion, LICA with 50-59% stenosis" Chronic pain syndrome COPD (chronic obstructive pulmonary disease) Depression Dyslipidemia History of alcohol abuse History of CVA (cerebrovascular accident) "in setting of right carotid artery thrombosis" History of DVT (deep vein thrombosis) 09/2018 - started on Eliquis History of pulmonary embolism 12/2018 - in the setting of Eliquis use. Placed on Coumadin HIV (human immunodeficiency virus infection) Hypertension Migraine Neuropathic pain of both feet Polyp of colon (12/21/12) Seizure disorder Tobacco abuse Surgical History History of anal lesion History of colonoscopy Family History Father Lung cancer Mother Hypertension Social History Smoking Status: Current every day smoker Tobacco Type: Cigarettes Years Smoked: 45; Cigarettes Per Day: 10; Second Hand Exposure: No; Hx Alcohol Use: No Hx Substance Use: Yes Last Used Substance: Hours (ago) Last Used Substance Other:: Pain medications in the ED per patient reported. Preferred Language: Vincentian Communication Ability: Unable Restaurant Supervisor Required: No Beliefs That Will Affect Care: Mosque Mosque Beliefs: Congregational marital status: Current Living Situation: Alone Feels Safe at Home: Yes Safety Concerns: Feels Safe At This Time Assistive Devices: Wheelchair Allergies Allergies Allergy/AdvReac Type Severity Reaction Status Date / Time azithromycin Allergy Severe rash/anaphy Verified 09/01/20 04:29 laxis Penicillins Allergy Severe ANAPHYLAXIS Verified 08/16/20 11:53 niacin Allergy Intermediate RASH Verified 08/16/20 11:53 Sulfa (Sulfonamide Allergy Intermediate "ITCHY Verified 08/16/20 11:53 Antibiotics) RASH" tramadol Allergy Mild RASH Verified 08/16/20 11:53 meloxicam AdvReac Intermediate GI SYMPTOMS Verified 08/16/20 11:53 shellfish derived AdvReac Intermediate gi symptoms Verified 08/16/20 11:53 topiramate AdvReac Intermediate NAUSEA Verified 08/16/20 11:53 lisinopril AdvReac Unknown cough Verified 09/01/20 04:29 Home Meds Home Medications Medication Instructions Recorded Confirmed aspirin 81 mg PO QAM 06/08/18 08/31/20 budesonide-formoterol [Symbicort] 2 puff INHALATION Q12H 06/08/18 08/31/20 fluticasone propionate [Flonase 2 spray INTRANASAL QAM PRN 06/08/18 08/31/20 Allergy Relief] folic acid 1 mg PO QAM 06/08/18 08/31/20 furosemide [Lasix] 20 mg PO QAM PRN 06/08/18 08/31/20 gabapentin [Neurontin] 800 mg PO TID 08/25/18 08/31/20 ipratropium-albuterol 3 ml INHALATION Q4H PRN 10/04/18 08/31/20 omeprazole 20 mg PO QAM 10/04/18 08/31/20 albuterol sulfate [Ventolin HFA] 2 puff INHALATION Q4H PRN 11/14/18 08/31/20 amlodipine [Norvasc] 5 mg PO QAM 11/14/18 08/31/20 ondansetron 4 mg PO Q8H PRN 11/14/18 08/31/20 metoprolol succinate [Toprol XL] 50 mg PO QAM 04/07/19 08/31/20 duloxetine [Cymbalta] 60 mg PO QAM 05/21/19 08/31/20 atorvastatin 80 mg PO HS 08/16/20 08/31/20 clonazepam 2 mg PO BID 08/16/20 08/31/20 levetiracetam 1,500 mg PO BID 08/16/20 08/31/20 lorazepam 1 mg PO BID PRN 08/16/20 08/31/20 oxycodone 10 mg PO Q6H PRN 08/16/20 08/31/20 ramelteon 8 mg PO HS 08/16/20 08/31/20 zaleplon 10 mg PO HS PRN 08/16/20 08/31/20 warfarin 5 mg PO DAILY 09/01/20 09/01/20 Previous Rx's Medication Instructions Recorded Saccharomyces boulardii [Florastor] 250 mg PO BID #20 cap 11/15/18 darunavir ethanolate 600 mg tablet 600 mg PO BIDM #180 tab 02/09/19 raltegravir 400 mg tablet 400 mg PO BID #180 tab 02/09/19 ritonavir 100 mg tablet 100 mg PO BID #180 tab 02/09/19 Results & Data (ED) Vital Signs Vital Signs - 24 hr 08/31/20 16:26 Temperature 36.7 C Temperature Source Oral Pulse Rate 111 H Pulse Rhythm Regular Pulse Strength Normal Respiratory Rate 16 Respiratory Effort / Characteristics Non-Labored Respiratory Depth Normal Respiratory Pattern Regular Blood Pressure 105/86 Blood Pressure Mean 92 Blood Pressure Position Lying Pulse Oximetry 97 Oxygen Delivery Method Room Air Sepsis Recent Fever Within 48 Hours No Sepsis New/Unexplained Change in Mental Status N/A Sepsis Action Taken by Nursing No Action Required Laboratory Data Result diagrams: 09/02/20 06:21 09/02/20 06:38 Lab Results 08/31/20 08/31/20 08/31/20 Range/Units 16:43 16:43 16:43 WBC 6.77 (4.8-10.8) K/uL RBC 4.97 (4.7-6.1) M/uL Hgb 14.1 (14.0-18.0) g/dL Hct 41.2 L (42-52) % MCV 82.9 (80-100) fL MCH 28.4 (25-34) pg MCHC 34.2 (32-36) g/dL RDW Std Deviation 51.9 H (36.4-46.3) fL RDW Coeff of Tanesha 17.0 H (11.5-14.5) % Plt Count 288 (130-400) K/uL MPV 9.7 (7.4-10.4) fL Immature Gran % (Auto) 0.1 % Neut % (Auto) 63.3 % Lymph % (Auto) 22.9 % Bergen % (Auto) 11.5 % Eos % (Auto) 1.3 % Baso % (Auto) 0.9 % Neut # (Auto) 4.28 (1.4-6.5) K/uL Lymph # (Auto) 1.55 (1.2-3.4) K/uL Bergen # (Auto) 0.78 H (0.11-0.59) K/uL Eos # (Auto) 0.09 (0-0.5) K/uL Baso # (Auto) 0.06 (0-0.2) K/uL Immature Gran # (Auto) 0.01 (0.00-0.02) K/uL PT 10.1 (9.0-12.0) Seconds INR 1.0 (0.9-1.1) APTT 22.0 (21.0-31.0) Seconds PTT Ratio 0.8 D-Dimer 1060 H* (0-500) ug/L FEU Sodium 138 (136-145) mmol/L Potassium 3.4 L (3.5-5.1) mmol/L Chloride 102 (98-107) mmol/L Carbon Dioxide 29 (21-32) mmol/L Anion Gap 7.0 (3-11) BUN 12 (7-18) mg/dl Creatinine 0.78 (0.6-1.4) mg/dl Est Cr Clr Drug Dosing 108.1 ml/min Est GFR ( Amer) 117.0 Est GFR (Non-Af Amer) 100.9 BUN/Creatinine Ratio 14.8 (10-20) Glucose 101 H (70-99) mg/dl Estimat Average Glucose mg/dl Hemoglobin A1c (4.5-5.6) % Calcium 9.5 (8.5-10.1) mg/dl Total Bilirubin 0.8 (0.2-1) mg/dl AST 72 H (15-37) U/L ALT 64 (12-78) U/L Alkaline Phosphatase 131 H (45-117) U/L Total Creatine Kinase 51 (39-308) U/L CK-MB (CK-2) 1.1 (0.5-3.6) ng/ml CK/CKMB % Calc 2.2 (0-3.0) Troponin I < 0.015 (0-0.045) ng/ml Total Protein 8.0 (6.4-8.2) gm/dl Albumin 3.5 (3.4-5.0) gm/dl Globulin 4.5 H (2.5-4.0) gm/dl Albumin/Globulin Ratio 0.8 L (0.9-2) Triglycerides (0-150) mg/dl Cholesterol (0-200) mg/dl LDL Cholesterol, Calc mg/dl VLDL Cholesterol, Calc mg/dl HDL Cholesterol mg/dl Cholesterol/HDL Ratio Lipase 89 (73-393) U/L Ethyl Alcohol mg/dL (0-3) mg/dl COVID-19 Eval Order SARS-CoV-2, RNA, NAAT (NEGATIVE) 08/31/20 08/31/20 08/31/20 Range/Units 16:43 16:58 16:58 WBC (4.8-10.8) K/uL RBC (4.7-6.1) M/uL Hgb (14.0-18.0) g/dL Hct (42-52) % MCV (80-100) fL MCH (25-34) pg MCHC (32-36) g/dL RDW Std Deviation (36.4-46.3) fL RDW Coeff of Tanesha (11.5-14.5) % Plt Count (130-400) K/uL MPV (7.4-10.4) fL Immature Gran % (Auto) % Neut % (Auto) % Lymph % (Auto) % Bergen % (Auto) % Eos % (Auto) % Baso % (Auto) % Neut # (Auto) (1.4-6.5) K/uL Lymph # (Auto) (1.2-3.4) K/uL Bergen # (Auto) (0.11-0.59) K/uL Eos # (Auto) (0-0.5) K/uL Baso # (Auto) (0-0.2) K/uL Immature Gran # (Auto) (0.00-0.02) K/uL PT (9.0-12.0) Seconds INR (0.9-1.1) APTT (21.0-31.0) Seconds PTT Ratio D-Dimer (0-500) ug/L FEU Sodium (136-145) mmol/L Potassium (3.5-5.1) mmol/L Chloride (98-107) mmol/L Carbon Dioxide (21-32) mmol/L Anion Gap (3-11) BUN (7-18) mg/dl Creatinine (0.6-1.4) mg/dl Est Cr Clr Drug Dosing ml/min Est GFR ( Amer) Est GFR (Non-Af Amer) BUN/Creatinine Ratio (10-20) Glucose (70-99) mg/dl Estimat Average Glucose mg/dl Hemoglobin A1c (4.5-5.6) % Calcium (8.5-10.1) mg/dl Total Bilirubin (0.2-1) mg/dl AST (15-37) U/L ALT (12-78) U/L Alkaline Phosphatase (45-117) U/L Total Creatine Kinase (39-308) U/L CK-MB (CK-2) (0.5-3.6) ng/ml CK/CKMB % Calc (0-3.0) Troponin I (0-0.045) ng/ml Total Protein (6.4-8.2) gm/dl Albumin (3.4-5.0) gm/dl Globulin (2.5-4.0) gm/dl Albumin/Globulin Ratio (0.9-2) Triglycerides (0-150) mg/dl Cholesterol (0-200) mg/dl LDL Cholesterol, Calc mg/dl VLDL Cholesterol, Calc mg/dl HDL Cholesterol mg/dl Cholesterol/HDL Ratio Lipase (73-393) U/L Ethyl Alcohol mg/dL < 3.0 (0-3) mg/dl COVID-19 Eval Order Covid19 IDNow [facility] SARS-CoV-2, RNA, NAAT NEGATIVE (NEGATIVE) 08/31/20 09/01/20 09/01/20 Range/Units 18:58 01:40 01:40 WBC 2.47 L (4.8-10.8) K/uL RBC 4.30 L (4.7-6.1) M/uL Hgb 11.8 L (14.0-18.0) g/dL Hct 35.7 L (42-52) % MCV 83.0 (80-100) fL MCH 27.4 (25-34) pg MCHC 33.1 (32-36) g/dL RDW Std Deviation 51.3 H (36.4-46.3) fL RDW Coeff of Tanesha 16.8 H (11.5-14.5) % Plt Count 230 (130-400) K/uL MPV 9.5 (7.4-10.4) fL Immature Gran % (Auto) % Neut % (Auto) % Lymph % (Auto) % Bergen % (Auto) % Eos % (Auto) % Baso % (Auto) % Neut # (Auto) (1.4-6.5) K/uL Lymph # (Auto) (1.2-3.4) K/uL Bergen # (Auto) (0.11-0.59) K/uL Eos # (Auto) (0-0.5) K/uL Baso # (Auto) (0-0.2) K/uL Immature Gran # (Auto) (0.00-0.02) K/uL PT (9.0-12.0) Seconds INR (0.9-1.1) APTT (21.0-31.0) Seconds PTT Ratio D-Dimer (0-500) ug/L FEU Sodium (136-145) mmol/L Potassium (3.5-5.1) mmol/L Chloride (98-107) mmol/L Carbon Dioxide (21-32) mmol/L Anion Gap (3-11) BUN (7-18) mg/dl Creatinine (0.6-1.4) mg/dl Est Cr Clr Drug Dosing ml/min Est GFR ( Amer) Est GFR (Non-Af Amer) BUN/Creatinine Ratio (10-20) Glucose (70-99) mg/dl Estimat Average Glucose mg/dl Hemoglobin A1c (4.5-5.6) % Calcium (8.5-10.1) mg/dl Total Bilirubin (0.2-1) mg/dl AST (15-37) U/L ALT (12-78) U/L Alkaline Phosphatase (45-117) U/L Total Creatine Kinase (39-308) U/L CK-MB (CK-2) (0.5-3.6) ng/ml CK/CKMB % Calc (0-3.0) Troponin I < 0.015 < 0.015 (0-0.045) ng/ml Total Protein (6.4-8.2) gm/dl Albumin (3.4-5.0) gm/dl Globulin (2.5-4.0) gm/dl Albumin/Globulin Ratio (0.9-2) Triglycerides (0-150) mg/dl Cholesterol (0-200) mg/dl LDL Cholesterol, Calc mg/dl VLDL Cholesterol, Calc mg/dl HDL Cholesterol mg/dl Cholesterol/HDL Ratio Lipase (73-393) U/L Ethyl Alcohol mg/dL (0-3) mg/dl COVID-19 Eval Order SARS-CoV-2, RNA, NAAT (NEGATIVE) 09/01/20 09/01/20 09/01/20 Range/Units 01:40 01:40 06:59 WBC (4.8-10.8) K/uL RBC (4.7-6.1) M/uL Hgb (14.0-18.0) g/dL Hct (42-52) % MCV (80-100) fL MCH (25-34) pg MCHC (32-36) g/dL RDW Std Deviation (36.4-46.3) fL RDW Coeff of Tanesha (11.5-14.5) % Plt Count (130-400) K/uL MPV (7.4-10.4) fL Immature Gran % (Auto) % Neut % (Auto) % Lymph % (Auto) % Berg[place] % (Auto) % Eos % (Auto) % Baso % (Auto) % Neut # (Auto) (1.4-6.5) K/uL Lymph # (Auto) (1.2-3.4) K/uL Berg[place] # (Auto) (0.11-0.59) K/uL Eos # (Auto) (0-0.5) K/uL Baso # (Auto) (0-0.2) K/uL Immature Gran # (Auto) (0.00-0.02) K/uL PT (9.0-12.0) Seconds INR (0.9-1.1) APTT (21.0-31.0) Seconds PTT Ratio D-Dimer (0-500) ug/L FEU Sodium 140 (136-145) mmol/L Potassium 4.2 D (3.5-5.1) mmol/L Chloride 109 H (98-107) mmol/L Carbon Dioxide 27 (21-32) mmol/L Anion Gap 4.0 (3-11) BUN 12 (7-18) mg/dl Creatinine 0.80 (0.6-1.4) mg/dl Est Cr Clr Drug Dosing 105.4 ml/min Est GFR ( Amer) 115.7 Est GFR (Non-Af Amer) 99.9 BUN/Creatinine Ratio 15.6 (10-20) Glucose 172 H (70-99) mg/dl Estimat Average Glucose 111 mg/dl Hemoglobin A1c 5.5 (4.5-5.6) % Calcium 8.9 (8.5-10.1) mg/dl Total Bilirubin (0.2-1) mg/dl AST (15-37) U/L ALT (12-78) U/L Alkaline Phosphatase (45-117) U/L Total Creatine Kinase (39-308) U/L CK-MB (CK-2) (0.5-3.6) ng/ml CK/CKMB % Calc (0-3.0) Troponin I < 0.015 (0-0.045) ng/ml Total Protein (6.4-8.2) gm/dl Albumin (3.4-5.0) gm/dl Globulin (2.5-4.0) gm/dl Albumin/Globulin Ratio (0.9-2) Triglycerides 137 (0-150) mg/dl Cholesterol 229 H (0-200) mg/dl LDL Cholesterol, Calc 172 mg/dl VLDL Cholesterol, Calc 27 mg/dl HDL Cholesterol 30 mg/dl Cholesterol/HDL Ratio 8 Lipase (73-393) U/L Ethyl Alcohol mg/dL (0-3) mg/dl COVID-19 Eval Order SARS-CoV-2, RNA, NAAT (NEGATIVE) Administered Medications Acetaminophen (Acetaminophen 325 Mg Tab) 650 mg PO Q4H PRN PRN Reason: Pain or Fever Stop: 09/30/20 19:27 Last Admin: 09/02/20 09:11 Dose: 650 mg Documented by: [id number] Amlodipine Besylate (Amlodipine Besylate 5 Mg Tab) [facility] [place]: 10/01/20 08:59 Last Admin: 09/02/20 09:13 Dose: 5 mg Documented by: [id number] Admin: 09/01/20 09:38 Dose: 5 mg Documented by: [id number] Aspirin (Aspirin 81 Mg Ectab) 81 [facility] [place]: 10/01/20 08:59 Last Admin: 09/02/20 09:12 Dose: 81 mg Documented by: [id number] Admin: 09/01/20 09:49 Dose: 81 mg Documented by: [id number] Atorvastatin Calcium (Atorvastatin 40 Mg Tab) 80 mg PO [facility] Stop: 10/01/20 20:59 Last Admin: 09/02/20 20:22 Dose: 80 mg Documented by: [id number] Admin: 09/02/20 04:01 Dose: 80 mg Documented by: [id number] Clonazepam (Clonazepam 1 Mg Tab) 2 mg PO BID [facility] Stop: 09/30/20 21:44 Last Admin: 09/02/20 09:11 Dose: 2 mg Documented by: [id number] Admin: 09/02/20 04:01 Dose: Not Given Documented by: [id number] Admin: 09/01/20 13:14 Dose: 2 mg Documented by: [id number] Admin: 08/31/20 22:39 Dose: 2 mg Documented by: [id number] Cyclobenzaprine HCl (Cyclobenzaprine Hcl 5 Mg Tab) 5 mg PO TID PRN PRN Reason: muscle spasm Stop: 10/02/20 20:59 Last Admin: 09/02/20 18:51 Dose: 5 mg Documented by: [id number] Darunavir (Darunavir Ethanolate 600 Mg Tab) 600 mg PO BIDM [facility] Stop: 09/30/20 21:39 Last Admin: 09/02/20 17:04 Dose: 600 mg Documented by: [id number] Admin: 09/02/20 09:14 Dose: 600 mg Documented by: [id number] Admin: 09/01/20 17:39 Dose: Not Given Documented by: [id number] Admin: 09/01/20 09:40 Dose: 600 mg Documented by: [id number] Admin: 08/31/20 22:33 Dose: 600 mg Documented by: [id number] Duloxetine HCl (Duloxetine Hcl 60 Mg Cap) 60 mg PO QAM [facility] Stop: 10/01/20 08:59 Last Admin: 09/02/20 09:12 Dose: 60 mg Documented by: [id number] Admin: 09/01/20 09:50 Dose: 60 mg Documented by: [id number] Enoxaparin Sodium (Enoxaparin Inj 40 Mg/0.4 Ml Syr) 40 mg SQ QAM [facility] Stop: 10/01/20 08:59 Last Admin: 09/02/20 09:13 Dose: 40 mg Documented by: [id number] Admin: 09/01/20 09:52 Dose: 40 mg Documented by: [id number] Fluticasone/Vilanterol (Fluticasone/Vilanterol 100/25mcg 14 Puffs/Inhaler) 1 puffs INH DAILY [facility] Stop: 10/01/20 08:59 Last Admin: 09/02/20 09:11 Dose: 1 puffs Documented by: [id number] Admin: 09/01/20 09:53 Dose: 1 puffs Documented by: [id number] Folic Acid (Folic Acid 1 Mg Tab) 1 mg PO QAM [facility] Stop: 09/30/20 20:43 Last Admin: 09/02/20 09:15 Dose: 1 mg Documented by: [id number] Admin: 09/01/20 09:50 Dose: 1 mg Documented by: [id number] Admin: 08/31/20 21:40 Dose: 1 mg Documented by: [id number] Furosemide (Furosemide 20 Mg Tab) 20 mg PO QAM PRN PRN Reason: Swelling Stop: 09/30/20 21:33 Last Admin: 09/01/20 09:41 Dose: 20 mg Documented by: [id number] Gabapentin (Gabapentin 800 Mg Tab) 800 mg PO TID [facility] Stop: 09/30/20 21:39 Last Admin: 09/02/20 18:50 Dose: 800 mg Documented by: [id number] Admin: 09/01/20 13:04 Dose: 800 mg Documented by: [id number] Admin: 09/01/20 09:49 Dose: 800 mg Documented by: [id number] Admin: 08/31/20 22:32 Dose: 800 mg Documented by: [id number] Ceftriaxone Sodium 2,000 mg/ (Dextrose) 70 mls @ 100 mls/hr IV DAILY@1400 OMAYRA; Protocol Stop: 09/04/20 13:59 Last Infusion: 09/02/20 14:38 Dose: 0 mls/hr Documented by: [id number] Admin: 09/02/20 13:56 Dose: 100 mls/hr Documented by: [id number] Lactated Ringer's (Lr) 1,000 mls @ 125 mls/hr IV .Q8H [facility] Stop: 10/02/20 13:29 Last Admin: 09/02/20 21:17 Dose: 125 mls/hr Documented by: [id number] Infusion: 09/02/20 21:17 Dose: 125 mls/hr Documented by: [id number] Admin: 09/02/20 13:56 Dose: 125 mls/hr Documented by: [id number] Vancomycin HCl 1,000 mg/ (Sodium Chloride) 270 mls @ 200 mls/hr IV Q10H OMAY[facility]; Protocol Stop: 09/04/20 23:59 Last Admin: 09/03/20 00:36 Dose: 200 mls/hr Documented by: [id number] Levetiracetam (Levetiracetam 500 Mg Tab) 1,500 mg PO BID [facility] Stop: 09/30/20 21:44 Last Admin: 09/02/20 20:20 Dose: 1,500 mg Documented by: [id number] Admin: 09/02/20 09:12 Dose: 1,500 mg Documented by: [id number] Admin: 09/02/20 04:01 Dose: 1,500 mg Documented by: [id number] Admin: 09/01/20 09:39 Dose: 1,500 mg Documented by: [id number] Admin: 08/31/20 22:33 Dose: 1,500 mg Documented by: [id number] Lorazepam (Lorazepam 1 Mg Tab) 1 mg PO BID PRN PRN Reason: Anxiety Stop: 09/30/20 22:01 Last Admin: 08/31/20 22:31 Dose: 1 mg Documented by: [id number] Metoprolol Succinate (Metoprolol Succ 50mg Ext Rel Tab) 50 mg PO QAM [facility] Stop: 10/01/20 08:59 Last Admin: 09/02/20 09:14 Dose: 50 mg Documented by: [id number] Admin: 09/01/20 09:50 Dose: 50 mg Documented by: [id number] Nitroglycerin (Nitroglycerin Sl 0.4 Mg/Tab Tab) 0.4 mg SL UD PRN PRN Reason: Chest Pain Stop: 09/30/20 19:27 Last Admin: 09/02/20 15:06 Dose: 0.4 mg Documented by: [id number] Pantoprazole Sodium (Pantoprazole 40 Mg Tab) 40 mg PO QAM [facility] Stop: 10/01/20 08:59 Last Admin: 09/02/20 09:13 Dose: 40 mg Documented by: [id number] Admin: 09/01/20 09:38 Dose: 40 mg Documented by: [id number] Raltegravir (Raltegravir Potassium 400 Mg Tab) 400 mg PO BID [facility] Stop: 09/30/20 21:44 Last Admin: 09/02/20 20:23 Dose: 400 mg Documented by: [id number] Admin: 09/02/20 09:14 Dose: 400 mg Documented by: [id number] Admin: 09/02/20 04:00 Dose: 400 mg Documented by: [id number] Admin: 09/01/20 09:54 Dose: 400 mg Documented by: [id number] Admin: 08/31/20 23:26 Dose: 400 mg Documented by: [id number] Ritonavir (Ritonavir 100 Mg Tab) 100 mg PO BID [facility] Stop: 09/30/20 21:44 Last Admin: 09/02/20 20:22 Dose: 100 mg Documented by: [id number] Admin: 09/02/20 09:13 Dose: 100 mg Documented by: [id number] Admin: 09/02/20 04:02 Dose: 100 mg Documented by: [id number] Admin: 09/01/20 13:20 Dose: 100 mg Documented by: [id number] Admin: 08/31/20 22:34 Dose: 100 mg Documented by: [id number] Saccharomyces Boulardii (Saccharomyces Boulardii 250 Mg Cap) 250 mg PO BID [facility] Stop: 09/30/20 21:44 Last Admin: 09/02/20 20:19 Dose: 250 mg Documented by: [id number] Admin: 09/02/20 09:12 Dose: 250 mg Documented by: [id number] Admin: 09/02/20 04:00 Dose: 250 mg Documented by: [id number] Admin: 09/01/20 09:49 Dose: 250 mg Documented by: [id number] Admin: 08/31/20 22:32 Dose: 250 mg Documented by: [id number] Thiamine HCl (Thiamine Hcl 100 Mg Tab) 100 mg PO QAM [facility] Stop: 09/30/20 20:43 Last Admin: 09/02/20 09:13 Dose: 100 mg Documented by: [id number] Admin: 09/01/20 09:50 Dose: 100 mg Documented by: [id number] Admin: 08/31/20 21:41 Dose: 100 mg Documented by: [id number] Discontinued Medications Aspirin (Aspirin 81 Mg Chew) 324 mg PO NOW STA Stop: 08/31/20 19:51 Last Admin: 08/31/20 21:40 Dose: 324 mg Documented by: [id number] Diphenhydramine HCl (Diphenhydramine 50 Mg/Ml Vial) 50 mg IV NOW STA Stop: 08/31/20 17:24 Last Admin: 08/31/20 17:29 Dose: 50 mg Documented by: [id number] Famotidine (Famotidine 20mg/5ml Iv Push) Confirm Administered Dose 20 mg IV .STK-MED ONE Stop: 08/31/20 17:32 Last Admin: 08/31/20 17:41 Dose: Not Given Documented by: [id number] Haloperidol Lactate (Haloperidol Lactate 5 Mg/Ml 1 Ml Vial) 5 mg IM NOW STA Stop: 09/01/20 17:10 Last Admin: 09/01/20 17:15 Dose: 5 mg Documented by: [id number] Hydroxyzine HCl (Hydroxyzine Hcl 25 Mg Tab) 50 mg PO NOW STA Stop: 08/31/20 16:28 Last Admin: 08/31/20 16:43 Dose: 50 mg Documented by: [id number] Multivitamins 10 ml/ Thiamine HCl 100 mg/ Folic Acid 1 mg/Sodium Chloride 1,011.2 mls @ 1,011.2 mls/hr IV .Q1H ONE Stop: 08/31/20 17:26 Last Infusion: 08/31/20 18:29 Dose: 0 mls/hr Documented by: [id number] Admin: 08/31/20 17:00 Dose: 1,011.2 mls/hr Documented by: [id number] Acetaminophen (Ofirmev) 1,000 mg in 100 mls @ 400 mls/hr IV NOW STA Stop: 08/31/20 16:55 Last Infusion: 08/31/20 17:01 Dose: 0 mls/hr Documented by: [id number] Admin: 08/31/20 16:48 Dose: 400 mls/hr Documented by: [id number] Potassium Chloride (K Yunior / Wtr) 10 meq in 100 mls @ 100 mls/hr IV Q1H [facility] Stop: 08/31/20 19:29 Last Infusion: 08/31/20 22:06 Dose: 0 mls/hr Documented by: [id number] Admin: 08/31/20 20:54 Dose: 100 mls/hr Documented by: [id number] Infusion: 08/31/20 20:04 Dose: 0 mls/hr Documented by: [id number] Admin: 08/31/20 18:28 Dose: 100 mls/hr Documented by: [id number] Famotidine 20 mg/ Syringe 5 mls @ 2.5 mls/min IV NOW STA Stop: 08/31/20 17:25 Last Admin: 08/31/20 17:41 Dose: 2.5 mls/min Documented by: [id number] Thiamine HCl 100 mg/ Syringe 10 mls @ 2 mls/min IV NOW ONE Stop: 08/31/20 21:04 Last Admin: 08/31/20 21:41 Dose: 2 mls/min Documented by: [id number] Vancomycin HCl 1,500 mg/ (Sodium Chloride) 530 mls @ 200 mls/hr IV NOW STA Stop: 09/02/20 16:00 Last Infusion: 09/02/20 17:39 Dose: 0 mls/hr Documented by: [id number] Admin: 09/02/20 14:38 Dose: 200 mls/hr Documented by: [id number] Ioversol (Optiray 320 125ml) 118 ml IV ONCE ONE Stop: 08/31/20 17:21 Last Admin: 08/31/20 17:21 Dose: 1 ml Documented by: [id number] Methylprednisolone (Methylprednisolone 125 Mg/2 Ml Vial) 125 mg IV NOW STA Stop: 08/31/20 17:24 Last Admin: 08/31/20 17:29 Dose: 125 mg Documented by: [id number] Miscellaneous (Remove Nicoderm Patch) 1 ea N/A DAILY@[id number] [facility] Stop: 09/01/20 09:00 Last Admin: 09/01/20 09:54 Dose: 1 ea Documented by: [id number] Naloxone HCl (Naloxone Hcl 0.4 Mg/1 Ml Vial/Carp) 0.4 mg IV NOW STA Stop: 09/01/20 15:36 Last Admin: 09/01/20 16:51 Dose: Not Given Documented by: [id number] Nicotine (Nicotine 21 Mg/24 Hr Tdsy) 21 mg TD NOW STA Stop: 08/31/20 21:34 Last Admin: 08/31/20 22:49 Dose: 21 mg Documented by: [id number] Ondansetron HCl (Ondansetron Inj 2 Mg/Ml 2 Ml Vial) 4 mg IV NOW STA Stop: 08/31/20 17:18 Last Admin: 08/31/20 18:29 Dose: Not Given Documented by: [id number] Oxycodone HCl (Oxycodone Hcl Ir 5 Mg Tab (Immediate Release)) 10 mg PO Q6H PRN PRN Reason: Pain Stop: 09/14/20 21:33 Last Admin: 09/01/20 10:02 Dose: 10 mg Documented by: [id number] Admin: 09/01/20 06:19 Dose: 10 mg Documented by: [id number] Admin: 08/31/20 22:31 Dose: 10 mg Documented by: [id number] Potassium Chloride (Potassium Chloride Crtab 20 Meq Tabcr) 40 meq PO NOW STA Stop: 08/31/20 17:18 Last Admin: 08/31/20 18:28 Dose: 40 meq Documented by: [id number] Discharge Plan Visit Data Chief Complaint: Chest Pain Stated Complaint: CHEST DISCOMFORT, FALL, L SHOULDER PAIN ED Provider: Sascha Turner Discharge Problem: Chest pain, Anxiety Patient Disposition: Admitted As Inpatient Discharge Instructions Interventions: ED Discharge Assessment Last Done: 08/31/20 20:06 Discharge Problem: Chest pain Qualifiers: Chest pain type: unspecified Qualified Code(s): R07.9 - Chest pain, unspecified
[2020-08-31 16:54] LABS: Basophils # (auto) 0.06 K/uL (0-0.2); Basophils % (auto) 0.9 %; Eosinophils # (auto) 0.09 K/uL (0-0.5); Eosinophils % (auto) 1.3 %; Hematocrit (blood only) 41.2 % (42-52); Hemoglobin 14.1 g/dL (14.0-18.0); Immature Granulocytes # (auto) 0.01 K/uL (0.00-0.02); Immature Granulocytes % (auto) 0.1 %; Lymphocytes # (auto) 1.55 K/uL (1.2-3.4); Lymphocytes % (auto) 22.9 %; Mean Corpuscular Hemoglobin 28.4 pg (25-34); Mean Corpuscular Hgb Conc 34.2 g/dL (32-36); Mean Corpuscular Volume 82.9 fL (80-100); Mean Platelet Volume 9.7 fL (7.4-10.4); Monocytes # (auto) 0.78 K/uL (0.11-0.59); Monocytes % (auto) 11.5 %; Neutrophils # (auto) 4.28 K/uL (1.4-6.5); Neutrophils % (auto) 63.3 %; Platelet Count 288 K/uL (130-400); RDW Standard Deviation 51.9 fL (36.4-46.3); Red Blood Count 4.97 M/uL (4.7-6.1); White Blood Count 6.77 K/uL (4.8-10.8)
--- NOTE | 2020-08-31 16:54 | XRay Report ---
LEFT SHOULDER 3 VIEWS HISTORY: Pt c/o left shoulder pain COMPARISON: None. FINDINGS: There is no fracture or dislocation. Soft tissues are unremarkable. Left clavicle is intact . IMPRESSION: No fracture or dislocation within the left shoulder. ACT 112: Negative or not required by law. Electronically signed by: Philip Hair M.D. 08/31/2020 4:53 PM
--- NOTE | 2020-08-31 16:55 | XRay Report ---
XR chest 1V portable HISTORY: Atypical Chest Pain COMPARISON: 07/09/2019. FINDINGS: The lungs are clear. Cardiac silhouette is normal in size. No pleural effusions. No pneumot horax. IMPRESSION: No acute process. ACT 112: Negative or not required by law. Electronically signed by: Philip Hair M.D. 08/31/2020 4:54 PM
[2020-08-31 17:05] LABS: Partial Thromboplastin Ratio 0.8; Prothrombin Time 10.1 Seconds (9.0-12.0)
[2020-08-31 17:10] LABS: Alanine Aminotransferase 64 U/L (12-78); Albumin Level 3.5 gm/dl (3.4-5.0); Aspartate Aminotransferase 72 U/L (15-37); BUN Creatinine Ratio 14.8 (10-20); Blood Urea Nitrogen 12 mg/dl (7-18); Calcium 9.5 mg/dl (8.5-10.1); Carbon Dioxide 29 mmol/L (21-32); Chloride 102 mmol/L (98-107); Creatinine Clr Calc Pharmacy 108.1 ml/min; Est GFR (Non-African American) 100.9; Glucose 101 mg/dl (70-99); Lipase 89 U/L (73-393); Potassium 3.4 mmol/L (3.5-5.1); Sodium 138 mmol/L (136-145)
[2020-08-31 17:15] LABS: Albumin Globulin Ratio 0.8 (0.9-2); Alkaline Phosphatase 131 U/L (45-117); Bilirubin,Total 0.8 mg/dl (0.2-1); Creatine Kinase 51 U/L (39-308); Creatine Kinase MB 1.1 ng/ml (0.5-3.6); Globulin 4.5 gm/dl (2.5-4.0); Troponin I < 0.015 ng/ml (0-0.045)
[2020-08-31 17:16] LABS: D Dimer 1060 ug/L FEU (0-500)
[2020-08-31] MEDS ORDERED: ONDANSETRON INJ 2 MG/ML 2 ML VIAL IV STA (17:17)
[2020-08-31] MEDS ORDERED: POTASSIUM CHLORIDE CRTAB 20 MEQ TABCR PO STA (17:17)
[2020-08-31] MEDS ORDERED: OPTIRAY 320 125ml IV ONE (17:20)
[2020-08-31] MEDS ORDERED: diphenhydrAMINE 50 MG/ML VIAL IV STA (17:23)
[2020-08-31] MEDS ORDERED: methylPREDNISolone 125 MG/2 ML VIAL IV STA (17:23)
[2020-08-31] MEDS ORDERED: FAMOTIDINE 20 MG in SYRINGE 3 ML IV STA (17:24)
[2020-08-31] MEDS ORDERED: FAMOTIDINE 20MG/5ML IV PUSH IV ONE (17:31)
[2020-08-31] MEDS: POTASSIUM CHLORIDE / WTR 10 MEQ/100 ML PLCT IV SCH ×2 (18:28→20:54)
--- NOTE | 2020-08-31 18:34 | CT Scan Report ---
CHEST CTA for PULMONARY ARTERIES CT DOSE: 438.99 mGy.cm HISTORY: Left-sided chest pain. TECHNIQUE: Multiaxial CT images of the chest were performed following the intravenous administration of contrast to evaluate the pulmonary arteries. Maximal intensity projection images were also obtaine d. A dose lowering technique was utilized adhering to the principles of ALARA. COMPARISON STUDY: Chest CTA 07/09/2019. FINDINGS: Mild aneurysmal dilatation of the ascending thoracic aorta measuring up to 4 cm in diameter . No evidence for an aortic dissection. No pleural or pericardial effusions. The heart is normal in s ize. Moderate calcified plaque within the left coronary arteries. No filling defects within the pulmo nary arteries to suggest pulmonary embolus. Limited views the upper abdomen demonstrate a normal sple en and adrenal glands. Hepatic steatosis. Normal caliber esophagus. No mediastinal or hilar lymphaden opathy. No fractures within the visualized osseous structures. No pneumothorax. The central airways a re patent. Mild emphysema. Groundglass densities within the lung bases posteriorly favor nondependent change. Otherwise, no focal lung consolidations to suggest pneumonia. IMPRESSION: 1. No evidence for pulmonary embolus. 2. Mild emphysema. 3. Mild aneurysmal dilatation of the ascending thoracic aorta measuring up to 4 cm in diameter. No ev idence for an aortic dissection. ACT 112: Negative or not required by law. Electronically signed by: Philip Hair M.D. 08/31/2020 6:33 PM
[2020-08-31] MEDS ORDERED: ALUMINUM/MAGNESIUM SUSP 30 ML UDC PO PRN (19:28)
[2020-08-31] MEDS ORDERED: NITROGLYCERIN SL 0.4 MG/TAB TAB SL PRN (19:28)
[2020-08-31] MEDS ORDERED: MAGNESIUM HYDROXIDE SUSP 30 ML UDC PO PRN (19:28)
[2020-08-31] MEDS ORDERED: ACETAMINOPHEN 325 MG TAB PO PRN (19:28)
[2020-08-31] MEDS ORDERED: POLYETHYLENE (MIRALAX) 17 GM PACK PO PRN (19:28)
--- NOTE | 2020-08-31 19:48 | History & Physical Report ---
Date of Service August 31, 2020 Assessment & Plan (1) Chest pain: Very unlikely to be ACS, however, patient as vascular risk factors including active smoking, h/o carotid disease causing stroke and sedentary lifestyle with medication noncompliance. Given Aspirin as precaution and trending serial cardiac enzymes overnight on telemetry. Currently chest pain- free. EKG nonischemic. Initial troponin negative. Patient honestly is more concerned with pain in his feet at this time, which appears very uncontrolled. Advised him to quit smoking-patient is requesting a nicotine patch. Check lipids in am. (2) Neuropathic pain of both feet: severe, cont gabapentin, oxycodone per home regimen. (3) Alcohol abuse: H/o heavy alcohol use in the records. [facility] protocol for monitoring for any withdrawal. (4) Seizure disorder: Patient has a reported h/o noncompliance with medications. Reports a breakthrough seizure two weeks ago at home. Cont home regimen including clonazepan 2mg BID, gabapentin and Keppra. (5) History of pulmonary embolism: Rescanned chest and no evidence of PE. Also has no evidence of lower e xtremity DVT on Doppler this evening. Therefore, holding warfarin (INR 1.0 anyway). May consider stopping this altogether, however, would defer to primary physician. (6) History of DVT (deep vein thrombosis): No DVT present on bilateral doppler this evening. Plan as above. (7) HIV positive: Uncertain who is following him at present and no updated labs in the [facility] system since 2016. Encouraged to follow-up with infectious disease after discharge for repeat CD4 and viral RNA. He continues on darunivir, raltegravir, and ritonavir per home regimen. (8) Chronic pain syndrome: On high dose scheduled oxycodone. cont home regimen. (9) Tobacco abuse: reportedly smokers 4 ppd cigarettes. Advised him to quit. Offered nicotine patch. (10) Anxiety: Severe and he takes scheduled benzos for this. (11) Hypertension: currently at goal. Cont current medication. (12) COPD (chronic obstructive pulmonary disease): stable, no evidence of exacerbation at this time. (13) DVT prophylaxis: Lovenox Full Code Dispo-uncertain at this time. He doesn't move well 2/2 severe pain in feet. I have ordered PT/OT consults to assist with discharge plans. Sherrie Manley, [facility] Hospitalist History of Present Illness Chief Complaint: chest pain Primary Care Provider: Alexandr Elder DO 55 yo HIV-positive patient with a history of alcohol and tobacco abuse presents with severe chest pain. The pain began while he was walking this morning. He reports becoming suddenly dizzy and lightheaded with a sharp stabbing chest pain in the center of his chest and associated shortness of breath. He reports returning to his bed and laying down with the chest pain lasting approximately 30 minutes and resolving with rest. He denies any issues with chest pain in the last year. 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 He reports smoking 4 packs of cigarettes a day and drinking at least 2 martinis per week. He reports having a recent seizure 2 weeks ago and from the pieces of the story it appears he does have some noncompliance with medications. He did report to me he takes warfarin intermittently. INR today is 1.0. The patient was recently admitted from August 16- out of concerns for hematochezia and is awaiting a colonoscopy. He denies any further blood per rectum and denies other symptoms such as abdominal pain. The symptom he is most concerned with is his chronic neuropathy and management of the pain in his feet. He has severe chronic pain syndrome from neuropathy from use of HIV medication, and is on high-dose benzodiazepines and oxycodone. He has no known history of coronary disease however does have vascular risk factors and history of bilateral carotid disease with stroke in February 2015. He has had a history of hyperlipidemia in the past, is a smoker with questionable compliance with medications. He also has a history of right cerebral AVM. Per outpatient notes the patient underwent a nuclear ischemic stress test in 2016 that was normal. His most recent echocardiogram was performed in December 2018 revealing normal left ventricular wall motion with an ejection fraction 60 to 65% and no significant valve disease. Allergies Allergy/AdvReac Type Severity Reaction Status Date / Time azithromycin Allergy Severe rash/anaphy Verified 09/01/20 04:29 laxis Penicillins Allergy Severe ANAPHYLAXIS Verified 08/16/20 11:53 niacin Allergy Intermediate RASH Verified 08/16/20 11:53 Sulfa (Sulfonamide Allergy Intermediate "ITCHY Verified 08/16/20 11:53 Antibiotics) RASH" tramadol Allergy Mild RASH Verified 08/16/20 11:53 meloxicam AdvReac Intermediate GI SYMPTOMS Verified 08/16/20 11:53 shellfish derived AdvReac Intermediate gi symptoms Verified 08/16/20 11:53 topiramate AdvReac Intermediate NAUSEA Verified 08/16/20 11:53 lisinopril AdvReac Unknown cough Verified 09/01/20 04:29 Home Medications Medication Instructions Recorded Confirmed Type aspirin 81 mg PO QAM 06/08/18 08/31/20 History budesonide-formoterol [Symbicort] 2 puff INHALATION Q12H 06/08/18 08/31/20 History fluticasone propionate [Flonase 2 spray INTRANASAL QAM PRN 06/08/18 08/31/20 History Allergy Relief] folic acid 1 mg PO QAM 06/08/18 08/31/20 History furosemide [Lasix] 20 mg PO QAM PRN 06/08/18 08/31/20 History gabapentin [Neurontin] 800 mg PO TID 08/25/18 08/31/20 History ipratropium-albuterol 3 ml INHALATION Q4H PRN 10/04/18 08/31/20 History omeprazole 20 mg PO QAM 10/04/18 08/31/20 History albuterol sulfate [Ventolin HFA] 2 puff INHALATION Q4H PRN 11/14/18 08/31/20 History amlodipine [Norvasc] 5 mg PO QAM 11/14/18 08/31/20 History ondansetron 4 mg PO Q8H PRN 11/14/18 08/31/20 History Saccharomyces boulardii [Florastor] 250 mg PO BID #20 cap 11/15/18 08/31/20 Rx darunavir ethanolate 600 mg tablet 600 mg PO BIDM #180 tab 02/09/19 08/31/20 Rx raltegravir 400 mg tablet 400 mg PO BID #180 tab 02/09/19 08/31/20 Rx ritonavir 100 mg tablet 100 mg PO BID #180 tab 02/09/19 08/31/20 Rx metoprolol succinate [Toprol XL] 50 mg PO QAM 04/07/19 08/31/20 History duloxetine [Cymbalta] 60 mg PO QAM 05/21/19 08/31/20 History atorvastatin 80 mg PO HS 08/16/20 08/31/20 History clonazepam 2 mg PO BID 08/16/20 08/31/20 History levetiracetam 1,500 mg PO BID 08/16/20 08/31/20 History lorazepam 1 mg PO BID PRN 08/16/20 08/31/20 History oxycodone 10 mg PO Q6H PRN 08/16/20 08/31/20 History ramelteon 8 mg PO HS 08/16/20 08/31/20 History zaleplon 10 mg PO HS PRN 08/16/20 08/31/20 History warfarin 5 mg PO DAILY 09/01/20 09/01/20 History Past Med/Surg History Medical History Alcohol abuse Anal dysplasia Anxiety AVM (arteriovenous malformation) brain Carotid stenosis "03/06/15-SAÚL occlusion, LICA with 50-59% stenosis" Chronic pain syndrome COPD (chronic obstructive pulmonary disease) Depression Dyslipidemia History of alcohol abuse History of CVA (cerebrovascular accident) "in setting of right carotid artery thrombosis" History of DVT (deep vein thrombosis) 09/2018 - started on Eliquis History of pulmonary embolism 12/2018 - in the setting of Eliquis use. Placed on Coumadin HIV (human immunodeficiency virus infection) Hypertension Migraine Neuropathic pain of both feet Polyp of colon (12/21/12) Seizure disorder Tobacco abuse Surgical History History of anal lesion History of colonoscopy Family History Father Lung cancer Mother Hypertension Social History Smoking Status: Current every day smoker Tobacco Type: Cigarettes Years Smoked: 45; Cigarettes Per Day: 10; Second Hand Exposure: No; Hx Alcohol Use: No Hx Substance Use: Yes Last Used Substance: Hours (ago) Last Used Substance Other:: Pain medications in the ED per patient reported. Preferred Language: Greek Communication Ability: Effective Patcher Bowling Ball Required: No Beliefs That Will Affect Care: Spiritism Spiritism Beliefs: Church marital status: Current Living Situation: Alone Feels Safe at Home: Yes Safety Concerns: Feels Safe At This Time Assistive Devices: None Review of Systems Review of Systems: All systems reviewed & are unremarkable except as noted in HPI & below Physical Exam Physical Exam: CONSTITUTIONAL: WNWD, vitals as above, generally well- appearing, eating some food EYES: pupils are equal and round bilaterally, normal conjunctivae, no scleral icterus ENT: external ear and nose normal, oropharynx clear, MMM RESPIRATORY: clear to auscultation bilaterally, no crackles, rales or wheezes, normal respiratory effort CARDIOVASCULAR: regular rate and rhythm, S1 and 2 heard without murmurs, gallops or rubs, no JVD, no peripheral edema CHEST: inspection of chest was normal GASTROINTESTINAL: soft, nontender, nondistended, no guarding MUSCULOSKELETAL: generalized weakness, notably cannot move LUE well and wrist remains in a flexed position, LLE also weak with little ability to dorsi/plantarflex actively, head is normocephalic and atraumatic, neck supple, normal palpation of chest wall without tenderness SKIN: warm and dry NEUROLOGIC: CN 2-12 grossly intact, bilateral feet with pain to touch which were not palpated 2/2 patient's level of discomfort with this, normal cognition, normal speech, no tremor PSYCHIATRIC: alert cooperative and answering questions appropriately. Results & Data Results & Data ([facility]) Vital Signs (Past 12 Hours) Vital Signs Temp Pulse Resp BP Pulse Ox 08/31/20 19:30 97 08/31/20 19:00 89 L 08/31/20 18:38 129/83 97 08/31/20 18:32 99 08/31/20 18:00 86 12 100 08/31/20 17:32 90 15 103/76 97 08/31/20 17:30 91 H 19 100 08/31/20 17:00 99 H 18 08/31/20 16:31 111 H 15 97 08/31/20 16:30 114 H 20 105/86 96 08/31/20 16:26 36.7 C 116 H 16 105/86 96 08/31/20 16:25 115 H 15 185/158 H 96 Laboratory Results Short CBC 08/31/20 08/31/20 08/31/20 Range/Units 16:43 16:43 16:43 WBC 6.77 (4.8-10.8) K/uL RBC 4.97 (4.7-6.1) M/uL Hgb 14.1 (14.0-18.0) g/dL Hct 41.2 L (42-52) % MCV 82.9 (80-100) fL MCH 28.4 (25-34) pg MCHC 34.2 (32-36) g/dL RDW Std Deviation 51.9 H (36.4-46.3) fL RDW Coeff of Tanesha 17.0 H (11.5-14.5) % Plt Count 288 (130-400) K/uL MPV 9.7 (7.4-10.4) fL Immature Gran % (Auto) 0.1 % Neut % (Auto) 63.3 % Lymph % (Auto) 22.9 % [place] % (Auto) 11.5 % Eos % (Auto) 1.3 % Baso % (Auto) 0.9 % Neut # (Auto) 4.28 (1.4-6.5) K/uL Lymph # (Auto) 1.55 (1.2-3.4) K/uL [place] # (Auto) 0.78 H (0.11-0.59) K/uL Eos # (Auto) 0.09 (0-0.5) K/uL Baso # (Auto) 0.06 (0-0.2) K/uL Immature Gran # (Auto) 0.01 (0.00-0.02) K/uL PT 10.1 (9.0-12.0) Seconds INR 1.0 (0.9-1.1) APTT 22.0 (21.0-31.0) Seconds PTT Ratio 0.8 D-Dimer 1060 H* (0-500) ug/L FEU Sodium 138 (136-145) mmol/L Potassium 3.4 L (3.5-5.1) mmol/L Chloride 102 (98-107) mmol/L Carbon Dioxide 29 (21-32) mmol/L Anion Gap 7.0 (3-11) BUN 12 (7-18) mg/dl Creatinine 0.78 (0.6-1.4) mg/dl Est Cr Clr Drug Dosing 108.1 ml/min Est GFR ( Amer) 117.0 Est GFR (Non-Af Amer) 100.9 BUN/Creatinine Ratio 14.8 (10-20) Glucose 101 H (70-99) mg/dl Calcium 9.5 (8.5-10.1) mg/dl Total Bilirubin 0.8 (0.2-1) mg/dl AST 72 H (15-37) U/L ALT 64 (12-78) U/L Alkaline Phosphatase 131 H (45-117) U/L Total Creatine Kinase 51 (39-308) U/L CK-MB (CK-2) 1.1 (0.5-3.6) ng/ml CK/CKMB % Calc 2.2 (0-3.0) Troponin I < 0.015 (0-0.045) ng/ml Total Protein 8.0 (6.4-8.2) gm/dl Albumin 3.5 (3.4-5.0) gm/dl Globulin 4.5 H (2.5-4.0) gm/dl Albumin/Globulin Ratio 0.8 L (0.9-2) Lipase 89 (73-393) U/L Ethyl Alcohol mg/dL (0-3) mg/dl COVID-19 Eval Order SARS-CoV-2, RNA, NAAT (NEGATIVE) 08/31/20 08/31/20 08/31/20 Range/Units 16:43 16:58 16:58 WBC (4.8-10.8) K/uL RBC (4.7-6.1) M/uL Hgb (14.0-18.0) g/dL Hct (42-52) % MCV (80-100) fL MCH (25-34) pg MCHC (32-36) g/dL RDW Std Deviation (36.4-46.3) fL RDW Coeff of Tanesha (11.5-14.5) % Plt Count (130-400) K/uL MPV (7.4-10.4) fL Immature Gran % (Auto) % Neut % (Auto) % Lymph % (Auto) % [place] % (Auto) % Eos % (Auto) % Baso % (Auto) % Neut # (Auto) (1.4-6.5) K/uL Lymph # (Auto) (1.2-3.4) K/uL [place] # (Auto) (0.11-0.59) K/uL Eos # (Auto) (0-0.5) K/uL Baso # (Auto) (0-0.2) K/uL Immature Gran # (Auto) (0.00-0.02) K/uL PT (9.0-12.0) Seconds INR (0.9-1.1) APTT (21.0-31.0) Seconds PTT Ratio D-Dimer (0-500) ug/L FEU Sodium (136-145) mmol/L Potassium (3.5-5.1) mmol/L Chloride (98-107) mmol/L Carbon Dioxide (21-32) mmol/L Anion Gap (3-11) BUN (7-18) mg/dl Creatinine (0.6-1.4) mg/dl Est Cr Clr Drug Dosing ml/min Est GFR ( Amer) Est GFR (Non-Af Amer) BUN/Creatinine Ratio (10-20) Glucose (70-99) mg/dl Calcium (8.5-10.1) mg/dl Total Bilirubin (0.2-1) mg/dl AST (15-37) U/L ALT (12-78) U/L Alkaline Phosphatase (45-117) U/L Total Creatine Kinase (39-308) U/L CK-MB (CK-2) (0.5-3.6) ng/ml CK/CKMB % Calc (0-3.0) Troponin I (0-0.045) ng/ml Total Protein (6.4-8.2) gm/dl Albumin (3.4-5.0) gm/dl Globulin (2.5-4.0) gm/dl Albumin/Globulin Ratio (0.9-2) Lipase (73-393) U/L Ethyl Alcohol mg/dL < 3.0 (0-3) mg/dl COVID-19 Eval [facility] SARS-CoV-2, RNA, NAAT NEGATIVE (NEGATIVE) 08/31/20 Range/Units 18:58 WBC (4.8-10.8) K/uL RBC (4.7-6.1) M/uL Hgb (14.0-18.0) g/dL Hct (42-52) % MCV (80-100) fL MCH (25-34) pg MCHC (32-36) g/dL RDW Std Deviation (36.4-46.3) fL RDW Coeff of Tanesha (11.5-14.5) % Plt Count (130-400) K/uL MPV (7.4-10.4) fL Immature Gran % (Auto) % Neut % (Auto) % Lymph % (Auto) % [place] % (Auto) % Eos % (Auto) % Baso % (Auto) % Neut # (Auto) (1.4-6.5) K/uL Lymph # (Auto) (1.2-3.4) K/uL [place] # (Auto) (0.11-0.59) K/uL Eos # (Auto) (0-0.5) K/uL Baso # (Auto) (0-0.2) K/uL Immature Gran # (Auto) (0.00-0.02) K/uL PT (9.0-12.0) Seconds INR (0.9-1.1) APTT (21.0-31.0) Seconds PTT Ratio D-Dimer (0-500) ug/L FEU Sodium (136-145) mmol/L Potassium (3.5-5.1) mmol/L Chloride (98-107) mmol/L Carbon Dioxide (21-32) mmol/L Anion Gap (3-11) BUN (7-18) mg/dl Creatinine (0.6-1.4) mg/dl Est Cr Clr Drug Dosing ml/min Est GFR ( Amer) Est GFR (Non-Af Amer) BUN/Creatinine Ratio (10-20) Glucose (70-99) mg/dl Calcium (8.5-10.1) mg/dl Total Bilirubin (0.2-1) mg/dl AST (15-37) U/L ALT (12-78) U/L Alkaline Phosphatase (45-117) U/L Total Creatine Kinase (39-308) U/L CK-MB (CK-2) (0.5-3.6) ng/ml CK/CKMB % Calc (0-3.0) Troponin I < 0.015 (0-0.045) ng/ml Total Protein (6.4-8.2) gm/dl Albumin (3.4-5.0) gm/dl Globulin (2.5-4.0) gm/dl Albumin/Globulin Ratio (0.9-2) Lipase (73-393) U/L Ethyl Alcohol mg/dL (0-3) mg/dl COVID-19 Eval Order SARS-CoV-2, RNA, NAAT (NEGATIVE) BMP 08/31/20 16:43 Sodium 138 Potassium 3.4 L Chloride 102 Carbon Dioxide 29 BUN 12 Creatinine 0.78 Glucose 101 H Calcium 9.5 Cardiac Enzymes 08/31/20 08/31/20 Range/Units 16:43 18:58 Total Creatine Kinase 51 (39-308) U/L CK-MB (CK-2) 1.1 (0.5-3.6) ng/ml Troponin I < 0.015 < 0.015 (0-0.045) ng/ml Liver Function 08/31/20 Range/Units 16:43 Total Bilirubin 0.8 (0.2-1) mg/dl AST 72 H (15-37) U/L ALT 64 (12-78) U/L Alkaline Phosphatase 131 H (45-117) U/L Albumin 3.5 (3.4-5.0) gm/dl Medications Administered Potassium 40mg PO, 10mg IV Famotidine 2.5mg IV Methylprednisolone 125mg IV Diphenhydramine 50mg IV CT Contrast MVI/Thiamine 100mg IV/Foliv acid 1mg IV Acetaminophen 1000mg IV Hydroxyzine 50mg PO x 1 dose Code Status & VTE Plan VTE Prophylaxis Plan VTE Prophylaxis will be ordered: Yes (1) Hypertension Hypertension type: essential hypertension Qualified Code(s): I10 - Essential (primary) hypertension
[2020-08-31] MEDS ORDERED: ASPIRIN 81 MG CHEW PO STA (19:50)
[2020-08-31] MEDS ORDERED: LORazepam 1 MG TAB PO PRN (20:44)
[2020-08-31] MEDS ORDERED: THIAMINE HCL 100 MG in SYRINGE 9 ML IV ONE (21:00)
[2020-08-31] MEDS ORDERED: NICOTINE 21 MG/24 HR TDSY TD STA (21:33)
[2020-08-31] MEDS ORDERED: FUROSEMIDE 20 MG TAB PO PRN (21:34)
[2020-08-31] MEDS ORDERED: ALBUTEROL HFA 8 GM INHALER INH PRN (21:34)
[2020-08-31] MEDS: FOLIC ACID 1 MG TAB PO SCH (21:40)
[2020-08-31] MEDS: THIAMINE HCL 100 MG TAB PO SCH (21:41)
[2020-08-31] MEDS ORDERED: ONDANSETRON 4 MG OD TAB PO PRN (22:02)
[2020-08-31] MEDS: oxyCODONE HCL IR 5 MG TAB (IMMEDIATE RELEASE) PO PRN (22:31)
[2020-08-31] MEDS: LORazepam 1 MG TAB PO PRN (22:31)
[2020-08-31] MEDS: GABAPENTIN 800 MG TAB PO SCH (22:32)
[2020-08-31] MEDS: SACCHAROMYCES BOULARDII 250 MG CAP PO SCH (22:32)
[2020-08-31] MEDS: DARUNAVIR ETHANOLATE 600 MG TAB PO SCH (22:33)
[2020-08-31] MEDS: levETIRAcetam 500 MG TAB PO SCH (22:33)
[2020-08-31] MEDS: RITONAVIR 100 MG TAB PO SCH (22:34)
[2020-08-31] MEDS: clonazePAM 1 MG TAB PO SCH (22:39)
[2020-08-31] MEDS: RALTEGRAVIR POTASSIUM 400 MG TAB PO SCH (23:26)
[2020-09-01 01:48] LABS: Hematocrit (blood only) 35.7 % (42-52); Hemoglobin 11.8 g/dL (14.0-18.0); Mean Corpuscular Hemoglobin 27.4 pg (25-34); Mean Corpuscular Hgb Conc 33.1 g/dL (32-36); Mean Platelet Volume 9.5 fL (7.4-10.4); Platelet Count 230 K/uL (130-400); RDW Coefficient of Variation 16.8 % (11.5-14.5); RDW Standard Deviation 51.3 fL (36.4-46.3); White Blood Count 2.47 K/uL (4.8-10.8)
[2020-09-01 02:10] LABS: BUN Creatinine Ratio 15.6 (10-20); Calcium 8.9 mg/dl (8.5-10.1); Creatinine Clr Calc Pharmacy 105.4 ml/min; Est GFR (African American) 115.7; Est GFR (Non-African American) 99.9; Potassium 4.2 mmol/L (3.5-5.1)
[2020-09-01] MEDS: oxyCODONE HCL IR 5 MG TAB (IMMEDIATE RELEASE) PO PRN ×2 (06:19→10:02)
--- NOTE | 2020-09-01 08:00 | Ultrasound Report ---
BILATERAL LOWER EXTREMITY VENOUS DOPPLER HISTORY: Leg swelling. rule out DVT COMPARISON STUDY: None. FINDINGS: There is normal compressibility, flow, and augmentation within the bilateral lower extremit y deep venous systems. IMPRESSION: No DVT within the right or left lower extremity. ACT 112: Negative or not required by law. Electronically signed by: Philip Hair M.D. 09/01/2020 7:58 AM
[2020-09-01] MEDS: amLODIPine BESYLATE 5 MG TAB PO SCH (09:38)
[2020-09-01] MEDS: PANTOprazole 40 MG TAB PO SCH (09:38)
[2020-09-01] MEDS: levETIRAcetam 500 MG TAB PO SCH (09:39)
[2020-09-01] MEDS: DARUNAVIR ETHANOLATE 600 MG TAB PO SCH ×2 (09:40→17:39)
[2020-09-01] MEDS: GABAPENTIN 800 MG TAB PO SCH ×2 (09:49→13:04)
[2020-09-01] MEDS: ASPIRIN 81 MG ECTAB PO SCH (09:49)
[2020-09-01] MEDS: SACCHAROMYCES BOULARDII 250 MG CAP PO SCH (09:49)
[2020-09-01] MEDS: THIAMINE HCL 100 MG TAB PO SCH (09:50)
[2020-09-01] MEDS: DULoxetine HCL 60 MG CAP PO SCH (09:50)
[2020-09-01] MEDS: METOPROLOL SUCC 50MG EXT REL TAB PO SCH (09:50)
[2020-09-01] MEDS: FOLIC ACID 1 MG TAB PO SCH (09:50)
[2020-09-01] MEDS: ENOXAPARIN INJ 40 MG/0.4 ML SYR SQ SCH (09:52)
[2020-09-01] MEDS: FLUTICASONE/VILANTEROL 100/25MCG 14 PUFFS/INHALER INH SCH (09:53)
[2020-09-01] MEDS: RALTEGRAVIR POTASSIUM 400 MG TAB PO SCH (09:54)
--- NOTE | 2020-09-01 10:15 | Electrocardiogram Report ---
Test Reason : Blood Pressure : / mmHG Vent. Rate : 115 BPM Atrial Rate : 115 BPM P-R Int : 156 ms QRS Dur : 096 ms QT Int : 344 ms P-R-T Axes : 061 000 068 degrees QTc Int : 475 ms Sinus tachycardia Otherwise normal ECG When compared with ECG of 16-AUG-2020 10:48, No significant change was found Confirmed by Ace Khalil ([id number]) on 09/01/2020 10:14:51 AM Referred By: REFERRED SELF Confirmed By:Ace Khalil
--- NOTE | 2020-09-01 10:17 | Electrocardiogram Report ---
Test Reason : Blood Pressure : / mmHG Vent. Rate : 091 BPM Atrial Rate : 091 BPM P-R Int : 168 ms QRS Dur : 100 ms QT Int : 418 ms P-R-T Axes : 066 -08 067 degrees QTc Int : 514 ms Normal sinus rhythm Minimal voltage criteria for LVH, may be normal variant Prolonged QT Abnormal ECG When compared with ECG of 31-AUG-2020 16:26, (unconfirmed) Prolongation of the QTc persists Confirmed by Ace Khalil ([id number]) on 09/01/2020 10:17:39 AM Referred By: REFERRED SELF Confirmed By:Ace Khalil
[2020-09-01] MEDS: clonazePAM 1 MG TAB PO SCH (13:14)
[2020-09-01] MEDS: RITONAVIR 100 MG TAB PO SCH (13:20)
[2020-09-01] MEDS ORDERED: NALOXONE HCL 0.4 MG/1 ML VIAL/CARP IV STA (15:35)
--- NOTE | 2020-09-01 15:38 | Hospitalist Progress Note ---
Date of Service September 01, 2020 Assessment & Plan (1) Chest pain: complained of sharp pain at ant chest wall chest pain very atypical for angina has been symptom free since admission no hypoxia , or Orthopnea CT chest negative for PE EKG nonischemic. Initial troponin negative. (2) Neuropathic pain of both feet: chronic cont home meds (3) Alcohol abuse: H/o heavy alcohol use in the records. ETOH level undetectable no s/s of withdrawal so far d/c AWIS ETOH withdrawal protocol PRN Ativan as needed for agitation (4) Seizure disorder: on Keppra (5) History of pulmonary embolism: CTA chest no PE lower ext Doppler no DVT given hx of non compliance and ETOH abuse , high risk for fall /bleeding compl ication not a candidate for contining on coumadin (6) History of DVT (deep vein thrombosis): No DVT present on bilateral doppler (7) HIV positive: on darunivir, raltegravir, and ritonavir per home regimen. pt is supposed to follow up with [facility] last admission CD4 count was low [facility] consulted for tomorrow (8) Chronic pain syndrome: pt appears to be sedated and confused this afternoon hold Oxycodon (9) Tobacco abuse: reportedly smokers 4 ppd cigarettes. Advised him to quit. nicotine patch. (10) Anxiety: hold schedule dose of Clonazepam -pt appears sedated and confused ptn ativen for atigation (11) Hypertension: currently at goal. Cont current medication. (12) COPD (chronic obstructive pulmonary disease): stable, no evidence of exacerbation at this time. (13) DVT prophylaxis: Lovenox Full Code Disposition : will need PT/OT eval prior to discharge -ordered cont to monitor in tele Admission and Anticipated Discharge Date Admission Date: August 31, 2020 Subjective follow up visit for chest pain /Hx of HIV poorly compliant with anti retroviral meds /ETOH abuse : no complain of chest pain since admission no cough or SOB denies of any recent ETOH intake no fever or chills , vitals stable Review of Systems Review of Systems: All systems reviewed & are unremarkable except as noted in Subjective Physical Exam Constitutional: WD/WN, vitals as above + ill appearing Eyes: + anicteric sclerae ENMT: external ear and nose normal, oropharynx normal Neck: trachea midline, no thyromegaly Respiratory: normal respiratory effort, lungs clear to auscultation Cardiovascular: RRR, no murmur, no edema Gastrointestinal (Abdomen): normal bowel sounds, soft, nontender, no hepatosplenomegaly Musculoskeletal: no cyanosis or clubbing, extremities motor strength 5/5 Skin: no rashes, warm and dry Neurologic: PERRL, EOMI, accommodation nl, no face palsy, no dysarthria Psychiatric: Orientation: alert, oriented to person and oriented to place Apperance: + disheveled Results & Data Results & Data ([facility]) Vital Signs (Past 12 Hours) Vital Signs Temp Pulse Pulse Resp BP Pulse Ox 09/01/20 11:49 36.3 C L 81 16 106/69 97 09/01/20 07:39 36.6 C 73 16 108/61 99 09/01/20 07:04 88 (1) Hypertension Hypertension type: essential hypertension Qualified Code(s): I10 - Essential (primary) hypertension
[2020-09-01] MEDS ORDERED: HALOPERIDOL LACTATE 5 MG/ML 1 ML VIAL IM PRN (17:09)
[2020-09-01] MEDS ORDERED: HALOPERIDOL LACTATE 5 MG/ML 1 ML VIAL IM STA (17:09)
[2020-09-01] MEDS ORDERED: ATIVAN IV ALCOHOL WITHDRAWL IV PRN (17:20)
[2020-09-01] MEDS ORDERED: LORazepam 1 MG/2 ML VIAL IV PRN (17:20)
[2020-09-01] MEDS ORDERED: LORazepam 2 MG/4 ML VIAL IV PRN (17:20)
[2020-09-01] MEDS ORDERED: LORazepam 3 MG/6 ML VIAL IV PRN (17:20)
--- NOTE | 2020-09-01 17:20 | Communication Note ---
Date of Service: September 01, 2020 Follow up visit for pt being very agitated , aggressive : pt became very confused and agitated in afternoon yelling profanity -" get the hell out of my house " thinks he is at his house and nursing and physician are trespassing threatening to call police . trying to climb out of bed pt was alert and appropriate this Am become progressively confused -owning /withdrawal form chronic BDZ ( on 2 mg Klonopin BID chronically -kept on hold as pt was found to be very sedated ) Vs ETOH withdrawal check withdrawal score per AIWS ( ordered ) scheduled dose of Neurontin kept on hold for excessive sedation PRN Ativan ordered for withdrawal symptoms fall precaution -bed alarm , cont to monitor Cheryl Veloz MD
[2020-09-02] MEDS: SACCHAROMYCES BOULARDII 250 MG CAP PO SCH ×3 (04:00→20:19)
[2020-09-02] MEDS: RALTEGRAVIR POTASSIUM 400 MG TAB PO SCH ×3 (04:00→20:23)
[2020-09-02] MEDS: clonazePAM 1 MG TAB PO SCH ×2 (04:01→09:11)
[2020-09-02] MEDS: ATORVASTATIN 40 MG TAB PO SCH ×2 (04:01→20:22)
[2020-09-02] MEDS: levETIRAcetam 500 MG TAB PO SCH ×3 (04:01→20:20)
[2020-09-02] MEDS: RITONAVIR 100 MG TAB PO SCH ×3 (04:02→20:22)
[2020-09-02 06:52] LABS: Hematocrit (blood only) 39.4 % (42-52); Hemoglobin 12.8 g/dL (14.0-18.0); Immature Granulocytes # (auto) 0.03 K/uL (0.00-0.02); Immature Granulocytes % (auto) 0.3 %; Lymphocytes # (auto) 0.94 K/uL (1.2-3.4); Lymphocytes % (auto) 8.2 %; Mean Corpuscular Hemoglobin 27.6 pg (25-34); Mean Corpuscular Hgb Conc 32.5 g/dL (32-36); Mean Corpuscular Volume 85.1 fL (80-100); Mean Platelet Volume 9.9 fL (7.4-10.4); Monocytes # (auto) 0.81 K/uL (0.11-0.59); Neutrophils # (auto) 9.74 K/uL (1.4-6.5); Neutrophils % (auto) 84.5 %; Platelet Count 292 K/uL (130-400); RDW Coefficient of Variation 17.2 % (11.5-14.5); RDW Standard Deviation 53.6 fL (36.4-46.3); Red Blood Count 4.63 M/uL (4.7-6.1); White Blood Count 11.52 K/uL (4.8-10.8)
[2020-09-02 07:19] LABS: Estimated Average Glucose 111 mg/dl; Hemoglobin A1C 5.5 % (4.5-5.6)
[2020-09-02 07:25] LABS: Albumin Level 3.3 gm/dl (3.4-5.0); BUN Creatinine Ratio 14.2 (10-20); Calcium 9.6 mg/dl (8.5-10.1); Creatinine Clr Calc Pharmacy 88.8 ml/min; Est GFR (African American) 103.3; Est GFR (Non-African American) 89.1; Potassium 4.2 mmol/L (3.5-5.1)
[2020-09-02 07:28] LABS: Albumin Globulin Ratio 0.8 (0.9-2); Bilirubin,Total 0.5 mg/dl (0.2-1); Globulin 4.2 gm/dl (2.5-4.0); Total Protein 7.5 gm/dl (6.4-8.2)
[2020-09-02] MEDS: FLUTICASONE/VILANTEROL 100/25MCG 14 PUFFS/INHALER INH SCH (09:11)
[2020-09-02] MEDS: ASPIRIN 81 MG ECTAB PO SCH (09:12)
[2020-09-02] MEDS: DULoxetine HCL 60 MG CAP PO SCH (09:12)
[2020-09-02] MEDS: THIAMINE HCL 100 MG TAB PO SCH (09:13)
[2020-09-02] MEDS: PANTOprazole 40 MG TAB PO SCH (09:13)
[2020-09-02] MEDS: ENOXAPARIN INJ 40 MG/0.4 ML SYR SQ SCH (09:13)
[2020-09-02] MEDS: amLODIPine BESYLATE 5 MG TAB PO SCH (09:13)
[2020-09-02] MEDS: DARUNAVIR ETHANOLATE 600 MG TAB PO SCH ×2 (09:14→17:04)
[2020-09-02] MEDS: METOPROLOL SUCC 50MG EXT REL TAB PO SCH (09:14)
[2020-09-02] MEDS: FOLIC ACID 1 MG TAB PO SCH (09:15)
[2020-09-02] MEDS ORDERED: VANCOMYCIN CONSULT ACTIVE PRN (13:02)
--- NOTE | 2020-09-02 13:21 | CT Scan Report ---
CT head/brain wo con CLINICAL HISTORY: 55 years-old Male with confusion /sedation. Acute confusion with altered mental st atus TECHNIQUE: Multiple axial CT images of the head were obtained without contrast. A dose lowering tech nique was utilized adhering to the principles of ALARA. CT DOSE: 614.27 mGy.cm COMPARISON: Head CT 07/09/2019 FINDINGS: No acute intracranial hemorrhage, midline shift, intracranial mass, hydrocephalus, territorial ischem ia or abnormal extra-axial collection. Encephalomalacia from chronic right MCA territorial infarct re demonstrated. Age-related involutional changes with ex vacuo ventriculomegaly. Patchy white matter hy podensities suggest chronic microvascular ischemic disease. The calvarium is intact. Minimal mucosal thickening of the maxillary sinuses. Ethmoid air cells are c lear. The mastoid air cells are also clear. Skull and soft tissues and orbits are within normal limit s. IMPRESSION: Chronic findings as above without acute intracranial abnormality. ACT 112: Negative or not required by law. The above report was generated using voice recognition software. It may contain grammatical, syntax o r spelling errors. Electronically signed by: Khoa Trevizo M.D. 09/02/2020 1:20 PM
[2020-09-02] MEDS ORDERED: VANCOMYCIN HCL 1,500 MG in SODIUM CHLORIDE 0.9% 500 ML IV STA (13:22)
--- NOTE | 2020-09-02 13:24 | Communication Note ---
Date of Service: September 02, 2020 pt is arousable today , still appears confused says he feels horrible , his chest hurts , legs hurts , no neck pain , no fever leukocytosis noted this AM /lactic acid elevated > [address] head non contrast stat empiric ABx with IV Rocephin and vancomycin blood and urine culture ordered monitor
[2020-09-02] MEDS: cefTRIAXone SODIUM 2,000 MG in DEXTROSE 5% 50 ML IV SCH ×2 (13:35→13:56)
[2020-09-02] MEDS: LACTATED RINGER'S 1,000 ML IV SCH ×2 (13:56→21:17)
--- NOTE | 2020-09-02 14:00 | Pharmacy Report ---
Pharmacy Abx Initial Consult - Date of Service September 02, 2020 - Pharmacy Dosing Scope Date of Consult: 09/02/20 Consultation requested by: Dr. Veloz Pharmacy is consulted to initiate Vancomycin IV dosing therapy, order appropriate labs and adjust drug dose/frequency. - Subjective The patient is a 55 year old M admitted on 09/01/20 15:34. - Objective Height: 6 ft Weight: 72.3 kg Vital Signs (Past 12hrs): Vital Signs Temp Pulse Resp BP Pulse Ox 09/02/20 07:00 36.5 C 68 18 138/84 99 Lab Results (24hrs): Laboratory Tests (24 Hours) 09/02/20 09/02/20 09/02/20 12:10 06:38 06:21 WBC 11.52 H Neut # (Auto) 9.74 H Creatinine 0.95 Est Cr Clr Drug Dosing 88.8 Procalcitonin < 0.05 Micro Results: 09/02/20 12:16 Aerobic Blood Culture - Pending Blood Anaerobic Blood Culture - Pending 09/02/20 12:10 Aerobic Blood Culture - Pending Blood Anaerobic Blood Culture - Pending - Risk Factors for Resistance * Hospitalization for 48 hours or more within the past 90 days * Immunocompromised * Antimicrobial use within the last 90 days - Doxycycline - Assessment & Plan Assessment 55 year old M admitted secondary to chest pain * PMHx significant for COPD, current every day smoker, and HIV * Started on empiric vancomycin and ceftriaxone today for leukocytosis and elevated lactic acid (48 hour stop date) * Cultures pending Plan 56 for empiric treatment of possible infection Vancomycin IV * Loading dose: 1500 mg (21 mg/kg) * Maintenance dose: 1000 mg IV (14 mg/kg) every 10 hours * Goal trough level: 15 to 20 mcg/mL * No trough level will be ordered at this time secondary to changing renal fxn and empiric therapy. If therapy is to extend beyond 48 hours, then a trough level will be ordered Ceftriaxone (not a pharmacy consult) * 2 gm IV every 24 hours Pharmacy will continue to follow and will adjust dose/frequency as necessary. Thank you.
[2020-09-02 15:19] LABS: Appearance Urine Clear (Clear); Bacteria Urine Automated Negative (Negative); Blood Urine Negative (Negative); Color Urine Dark Yellow; Glucose Urine UA Trace (Negative); Ketones Urine Negative (Negative); Leukocyte Esterase Urine Negative (Negative); Nitrite Urine Negative (Negative); Protein Urine Trace (Negative); RBC Urine Automated 0-4 /hpf (0-4); Specific Gravity Urine 1.031 (1.000-1.030); Urobilinogen Urine Negative (Negative)
[2020-09-02 15:30] LABS: Bilirubin Urine 1+ (Negative)
[2020-09-02 15:37] LABS: Amphetamines+Metham, Urine Neg (Neg); Barbiturates, Urine Neg (Neg); Benzodiazepine, Urine Pos (Neg); Cocaine, Urine Neg (Neg); MDMA (Ecstacy), Urine Neg (Neg); Methadone, Urine Neg (Neg); Opiate, Urine Pos (Neg); Phencyclidine, Urine Neg (Neg)
[2020-09-02] MEDS ORDERED: FLUTICASONE PROPIONATE NA SPR 16 GM BTL NAE PRN (17:44)
[2020-09-02] MEDS ORDERED: ALBUT/IPRATROP 3MG/0.5MG NEB 3 ML VIAL INH PRN (17:44)
--- NOTE | 2020-09-02 17:52 | Hospitalist Progress Note ---
Date of Service September 02, 2020 Assessment & Plan (1) Chest pain: presented complained of sharp pain at ant chest wall chest pain very atypical for angina has been symptom free since admission no hypoxia , or Orthopnea CT chest negative for PE EKG nonischemic. Initial troponin negative. possible muscle spasm , ordered for flexeril (2) Neuropathic pain of both feet: chronic on Neurontin 800 mg TID -kept on hold for excessive sedation (3) Alcohol abuse: H/o heavy alcohol use in the records. ETOH level undetectable no s/s of withdrawal so far d/c AWIS ETOH withdrawal protocol PRN Ativan as needed for agitation (4) Seizure disorder: on Keppra (5) History of pulmonary embolism: CTA chest no PE lower ext Doppler no DVT given hx of non compliance and ETOH abuse , high risk for fall /bleeding complication not a candidate for contining on coumadin (6) History of DVT (deep vein thrombosis): No DVT present on bilateral doppler (7) HIV positive: on darunivir, raltegravir, and ritonavir per home regimen. pt is supposed to follow up with Fawn GROSSMAN last admission CD4 count was low d/w [facility] GROSSM[facility] , no change in medications recommended at present will need out pt clinic follow up (8) Chronic pain syndrome: pt appears to be sedated and confused this afternoon hold Oxycodan prn Flexeril Neurontin will be resumed -with to be on hold for sedation (9) Tobacco abuse: reportedly smokers 4 ppd cigarettes. Advised him to quit. nicotine patch. (10) Anxiety: hold schedule dose of Clonazepam -pt appears sedated and confused ptn ativen for atigation (11) Hypertension: currently at goal. Cont current medication. (12) COPD (chronic obstructive pulmonary disease): stable, no evidence of exacerbation at this time. (13) DVT prophylaxis: Lovenox Full Code Disposition : PT/OT eval prior to discharge -ordered Admission and Anticipated Discharge Date Admission Date: September 01, 2020 Subjective follow up visit for chest pain /Hx of HIV poorly compliant with anti retroviral meds /ETOH abuse : still having episodes of confusion more arousable now , complains of intermittent chest pain no fever or chills vitals stable CT head non contrast no acute change Review of Systems Review of Systems: All systems reviewed & are unremarkable except as noted in Subjective Physical Exam Constitutional: WD/WN, vitals as above + ill appearing Eyes: + anicteric sclerae ENMT: external ear and nose normal, oropharynx normal Neck: trachea midline, no thyromegaly Respiratory: normal respiratory effort, lungs clear to auscultation Cardiovascular: RRR, no murmur, no edema Gastrointestinal (Abdomen): normal bowel sounds, soft, nontender, no hepatospl enomegaly Musculoskeletal: no cyanosis or clubbing, extremities motor strength 5/5 Skin: no rashes, warm and dry Neurologic: PERRL, EOMI, accommodation nl, no face palsy, no dysarthria Psychiatric: Orientation: alert, oriented to person and oriented to place Apperance: + disheveled Results & Data Results & Data ([facility]) Vital Signs (Past 12 Hours) Vital Signs Temp Pulse Resp BP BP Pulse Ox 09/02/20 16:00 35.9 C L 77 18 93/56 L 100 09/02/20 15:03 74 16 109/71 09/02/20 07:00 36.5 C 68 18 138/84 99 (1) Hypertension Hypertension type: essential hypertension Qualified Code(s): I10 - Essential (primary) hypertension
[2020-09-02] MEDS: GABAPENTIN 800 MG TAB PO SCH (18:50)
[2020-09-02] MEDS: CYCLOBENZAPRINE HCL 5 MG TAB PO PRN (18:51)
[2020-09-02] MEDS ORDERED: VANCOMYCIN HCL 1,000 MG in SODIUM CHLORIDE 0.9% 250 ML IV SCH (22:00)
[2020-09-03] MEDS ORDERED: VANCOMYCIN HCL 1,000 MG in SODIUM CHLORIDE 0.9% 250 ML IV SCH
[2020-09-03] MEDS: LACTATED RINGER'S 1,000 ML IV SCH (04:47)
[2020-09-03 06:44] LABS: Basophils # (auto) 0.02 K/uL (0-0.2); Basophils % (auto) 0.3 %; Hematocrit (blood only) 33.3 % (42-52); Hemoglobin 10.9 g/dL (14.0-18.0); Immature Granulocytes # (auto) 0.01 K/uL (0.00-0.02); Immature Granulocytes % (auto) 0.1 %; Lymphocytes # (auto) 1.95 K/uL (1.2-3.4); Lymphocytes % (auto) 28.2 %; Mean Corpuscular Hemoglobin 27.7 pg (25-34); Mean Corpuscular Hgb Conc 32.7 g/dL (32-36); Mean Corpuscular Volume 84.5 fL (80-100); Mean Platelet Volume 9.7 fL (7.4-10.4); Monocytes # (auto) 0.68 K/uL (0.11-0.59); Monocytes % (auto) 9.8 %; Neutrophils # (auto) 4.25 K/uL (1.4-6.5); Neutrophils % (auto) 61.6 %; Platelet Count 255 K/uL (130-400); RDW Coefficient of Variation 17.9 % (11.5-14.5); RDW Standard Deviation 55.9 fL (36.4-46.3); Red Blood Count 3.94 M/uL (4.7-6.1); White Blood Count 6.91 K/uL (4.8-10.8)
[2020-09-03] MEDS: CYCLOBENZAPRINE HCL 5 MG TAB PO PRN (07:10)
[2020-09-03 07:23] LABS: Albumin Globulin Ratio 0.8 (0.9-2); Albumin Level 2.6 gm/dl (3.4-5.0); BUN Creatinine Ratio 18.8 (10-20); Bilirubin,Total 0.3 mg/dl (0.2-1); Calcium 8.3 mg/dl (8.5-10.1); Creatinine Clr Calc Pharmacy 125.9 ml/min; Est GFR (African American) 124.5; Est GFR (Non-African American) 107.4; Globulin 3.4 gm/dl (2.5-4.0); Potassium 3.5 mmol/L (3.5-5.1)
[2020-09-03] MEDS: DARUNAVIR ETHANOLATE 600 MG TAB PO SCH ×2 (07:25→17:41)
[2020-09-03] MEDS: amLODIPine BESYLATE 5 MG TAB PO SCH (07:25)
[2020-09-03] MEDS: PANTOprazole 40 MG TAB PO SCH (07:26)
[2020-09-03] MEDS: METOPROLOL SUCC 50MG EXT REL TAB PO SCH (07:26)
[2020-09-03] MEDS: RALTEGRAVIR POTASSIUM 400 MG TAB PO SCH ×2 (07:26→20:18)
[2020-09-03] MEDS: levETIRAcetam 500 MG TAB PO SCH ×2 (07:27→20:17)
[2020-09-03] MEDS: FLUTICASONE/VILANTEROL 100/25MCG 14 PUFFS/INHALER INH SCH (07:28)
[2020-09-03] MEDS: DULoxetine HCL 60 MG CAP PO SCH (07:28)
[2020-09-03] MEDS: SACCHAROMYCES BOULARDII 250 MG CAP PO SCH ×2 (07:28→20:18)
[2020-09-03] MEDS: FOLIC ACID 1 MG TAB PO SCH ×2 (07:29→07:36)
[2020-09-03] MEDS: GABAPENTIN 800 MG TAB PO SCH ×3 (07:29→20:19)
[2020-09-03] MEDS: RITONAVIR 100 MG TAB PO SCH ×2 (07:29→20:17)
[2020-09-03] MEDS: THIAMINE HCL 100 MG TAB PO SCH (07:30)
[2020-09-03] MEDS ORDERED: oxyCODONE HCL IR 5 MG TAB (IMMEDIATE RELEASE) ONE (08:07)
--- NOTE | 2020-09-03 16:00 | Hospitalist Progress Note ---
Date of Service September 03, 2020 Assessment & Plan (1) Chest pain: Metabolic encephalopathy/confusion: Multifactorial-history of alcohol abuse/illicit drug abuse at home patient was very agitated combative last 2 days, difficult to arouse LFTs/ammonia level was within normal limits Gabapentin, oxycodone, scheduled dose of lorazepam was kept on hold CT head was negative for any acute change Mental status improved to baseline after supportive care with IV hydration, holding off sedatives and hypnotics. home Medications Neurontin, pain meds resumed as patient: Planes of constant severe bilateral chronic neuropathic pain Not safe to return home, Referral made to skilled rehab Chest pain presented complained of sharp pain at ant chest wall Possible musculoskeletal origin chest pain very atypical for angina has been symptom free since admission no hypoxia , or Orthopnea CT chest negative for PE EKG nonischemic. Initial troponin negative. possible muscle spasm , ordered for flexeril (2) Neuropathic pain of both feet: chronic on Neurontin 800 mg TID -resumed (3) Alcohol abuse: H/o heavy alcohol use in the records. ETOH level undetectable no s/s of withdrawal so far Monitor closely pt has very labile mood, history of chronic alcohol and drug abuse, threatens to leave AMA when pain pain occasions and not given as soon as possible Stop them were kept on hold next 2 days for sedation Home medications resumed, pain medication should not be escalated due to history of narcotic pain medication abuse in the past (4) Seizure disorder: on Keppra (5) History of pulmonary embolism: CTA chest no PE lower ext Doppler no DVT given hx of non compliance and ETOH abuse , high risk for fall /bleeding complication not a candidate for chronic anticoagulation with Coumadin (6) History of DVT (deep vein thrombosis): No DVT present on bilateral doppler Has chronic bilateral neuropathic pain on Neurontin (7) HIV positive: on darunivir, raltegravir, and ritonavir per home regimen. pt is supposed to follow up with Fawn GROSSMAN Patient has not seen infectious disease for a long period of time d/w Fawn GROSSMAN , no change in medications recommended Will need appointment scheduled with Fawn GROSSMAN after discharge from rehab (8) Chronic pain syndrome: pt appears to be sedated and confused this afternoon Home medications resumed (9) Tobacco abuse: reportedly smokers 4 ppd cigarettes. Advised him to quit. nicotine patch. (10) Anxiety: Resume home dose of clonazepam (11) Hypertension: currently at goal. Cont current medication. (12) COPD (chronic obstructive pulmonary disease): stable, no evidence of exacerbation at this time. (13) DVT prophylaxis: Lovenox Full Code Disposition : PT/OT eval recommend skilled rehab Referral made to matilde Fuentes Patient was discharged to skilled rehab when bed available/insurance approved Appreciate input from case management Patient and his family present at bedside updated regarding plan of care, all questions answered Admission and Anticipated Discharge Date Admission Date: September 01, 2020 Subjective follow up visit for chest pain /Hx of HIV poorly compliant with anti retroviral meds /ETOH abuse : Awake and alert today, oriented to place and person, mental status almost back to baseline Complains of severe pain on bilateral lower leg/chronic neuropathic pain, Upset that his Neurontin been kept on hold, was threatening to leave AMA this morning counseling provided as patient was very sedated and confused last 2 days on medication had to be kept on hold Home dose of Neurontin oxycodone resumed Patient's father and sister present at bedside, both of them and believe that patient is not safe to return home, for continued substance abuse, Also significant deconditioning having multiple falls at home PT OT evaluation recommends skilled rehab After lengthy discussion with Mr. Howard, family members, case management and myself Dion is willing to go for skilled rehab Willing to take medications as prescribed during this hospital stay And will not insist on leaving the hospital until gets formally discharged by physicians Review of Systems Review of Systems: All systems reviewed & are unremarkable except as noted in Subjective Physical Exam Constitutional: WD/WN, vitals as above + ill appearing Eyes: + anicteric sclerae ENMT: external ear and nose normal, oropharynx normal Neck: trachea midline, no thyromegaly Respiratory: normal respiratory effort, lungs clear to auscultation Cardiovascular: RRR, no murmur, no edema Gastrointestinal (Abdomen): normal bowel sounds, soft, nontender, no hepatosplenomegaly Musculoskeletal: no cyanosis or clubbing, extremities motor strength 5/5 Skin: no rashes, warm and dry Neurologic: PERRL, EOMI, accommodation nl, no face palsy, no dysarthria Psychiatric: Orientation: alert, oriented to person and oriented to place Apperance: + disheveled Results & Data Results & Data ([facility]) Vital Signs (Past 12 Hours) Vital Signs Temp Pulse Resp BP Pulse Ox 09/03/20 07:00 36.5 C 81 18 126/79 100 (1) Chest pain Chest pain type: unspecified Qualified Code(s): R07.9 - Chest pain, unspecified (2) Hypertension Hypertension type: essential hypertension Qualified Code(s): I10 - Essential (primary) hypertension
[2020-09-03] MEDS: NICOTINE 21 MG/24 HR TDSY TD SCH (17:41)
[2020-09-03] MEDS: clonazePAM 1 MG TAB PO SCH (20:16)
[2020-09-03] MEDS: ATORVASTATIN 40 MG TAB PO SCH (20:19)
[2020-09-03] MEDS: oxyCODONE HCL IR 5 MG TAB (IMMEDIATE RELEASE) PO PRN (20:22)
[2020-09-04 06:29] LABS: Basophils # (auto) 0.04 K/uL (0-0.2); Basophils % (auto) 0.6 %; Eosinophils # (auto) 0.04 K/uL (0-0.5); Eosinophils % (auto) 0.6 %; Hematocrit (blood only) 36.5 % (42-52); Hemoglobin 12.4 g/dL (14.0-18.0); Immature Granulocytes # (auto) 0.01 K/uL (0.00-0.02); Immature Granulocytes % (auto) 0.1 %; Lymphocytes # (auto) 2.53 K/uL (1.2-3.4); Lymphocytes % (auto) 36.9 %; Mean Corpuscular Hemoglobin 28.1 pg (25-34); Mean Corpuscular Volume 82.6 fL (80-100); Mean Platelet Volume 10.1 fL (7.4-10.4); Monocytes # (auto) 0.69 K/uL (0.11-0.59); Monocytes % (auto) 10.1 %; Neutrophils # (auto) 3.54 K/uL (1.4-6.5); Neutrophils % (auto) 51.7 %; Platelet Count 284 K/uL (130-400); RDW Coefficient of Variation 17.5 % (11.5-14.5); RDW Standard Deviation 53.7 fL (36.4-46.3); Red Blood Count 4.42 M/uL (4.7-6.1); White Blood Count 6.85 K/uL (4.8-10.8)
[2020-09-04] MEDS: RALTEGRAVIR POTASSIUM 400 MG TAB PO SCH ×2 (08:09→20:43)
[2020-09-04] MEDS: clonazePAM 1 MG TAB PO SCH ×2 (08:09→20:42)
[2020-09-04] MEDS: GABAPENTIN 800 MG TAB PO SCH ×3 (08:09→20:41)
[2020-09-04] MEDS: amLODIPine BESYLATE 5 MG TAB PO SCH (08:10)
[2020-09-04] MEDS: levETIRAcetam 500 MG TAB PO SCH ×2 (08:10→20:43)
[2020-09-04] MEDS: METOPROLOL SUCC 50MG EXT REL TAB PO SCH (08:10)
[2020-09-04] MEDS: FOLIC ACID 1 MG TAB PO SCH ×2 (08:10→09:03)
[2020-09-04] MEDS: SACCHAROMYCES BOULARDII 250 MG CAP PO SCH ×2 (08:10→20:43)
[2020-09-04] MEDS: THIAMINE HCL 100 MG TAB PO SCH (08:10)
[2020-09-04] MEDS: PANTOprazole 40 MG TAB PO SCH (08:10)
[2020-09-04] MEDS: RITONAVIR 100 MG TAB PO SCH ×2 (08:11→20:40)
[2020-09-04] MEDS: DARUNAVIR ETHANOLATE 600 MG TAB PO SCH ×2 (08:11→16:49)
[2020-09-04] MEDS: NICOTINE 21 MG/24 HR TDSY TD SCH (08:11)
[2020-09-04] MEDS: DULoxetine HCL 60 MG CAP PO SCH (08:11)
[2020-09-04] MEDS: FLUTICASONE/VILANTEROL 100/25MCG 14 PUFFS/INHALER INH SCH (08:12)
[2020-09-04] MEDS: ASPIRIN 81 MG ECTAB PO SCH (08:57)
[2020-09-04] MEDS: ENOXAPARIN INJ 40 MG/0.4 ML SYR SQ SCH (09:02)
[2020-09-04] MEDS: oxyCODONE HCL IR 5 MG TAB (IMMEDIATE RELEASE) PO PRN ×2 (13:50→20:39)
--- NOTE | 2020-09-04 15:38 | Neurology Consultation ---
Date of Consultation September 04, 2020 Assessment & Plan (1) Seizures: 1. continue Keppra 1500 mg q 12 hours - compliance has always been an issues 2. needs to stop EtOH and tobacco abuse 3. psychiatry for depression- partner in last year- mom thinks he is depressed 4. needs placement he is unable to care for himself Present on Admission?: Yes (2) Neuropathic pain of both feet: 1. continue gabapentin 800 mg TID 2. continue cymbalta 60 mg am 3. pain mgt has been managing his chronic pain he needs to follow with them for any medication adjustments Present on Admission?: Yes Supervising Physician Co-Signing Physician Notes Reviewed and discussed with Wen Acharya PA-C and agree with plan as noted below. A 55 year old male with known peripheral neuropathy is the setting of known HIV and chronic alcohol use. In regards to his painful neuropathy he is following with pain management. His gabapentin can be increased to 3,600 mg daily although I would encourage. Otherwise continue home Cymbalta. He should follow up with pain management as an outpatient. History of Present Illness Reason for Consultation: worsening peripheral neuropathy Requesting Physician: Yobani Zarate MD Attending Physician: Yobani Zarate MD History of Present Illness Dion is a 55 year old HIV-positive patient with a PMH EtOH and tobacco abuse, right cerebral AVM, HLD, COPD, carotid stenosis presents with severe chest pain. The pain began when he was walking. He reports becoming suddenly dizzy and lightheaded with a sharp stabbing chest pain in the center of his chest and associated shortness of breath. He reports returning to his bed and laying down with the chest pain lasting approximately 30 minutes and resolving with rest. 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 He is smoking 4 packs of cigarettes a day and drinking at least 2 martinis per week. He did have a recent seizure 2 weeks ago and from the pieces of the story it appears he does have some noncompliance with medications. He did report to me he takes warfarin intermittently. INR today is 1.0. He was recently admitted from August 16- out of concerns for hematochezia and is awaiting a colonoscopy. The symptom he is most concerned about is his chronic neuropathy and management of the pain in his feet. He has severe chronic pain syndrome from neuropathy from use of HIV medication, and is on high-dose benzodiazepines and oxycodone. he is followed by pain mgt. denies CP, SOB, abdominal pain, N, V, vision changes. Allergies Allergy/AdvReac Type Severity Reaction Status Date / Time azithromycin Allergy Severe rash/anaphy Verified 09/01/20 04:29 laxis Penicillins Allergy Severe ANAPHYLAXIS Verified 08/16/20 11:53 niacin Allergy Intermediate RASH Verified 08/16/20 11:53 Sulfa (Sulfonamide Allergy Intermediate "ITCHY Verified 08/16/20 11:53 Antibiotics) RASH" tramadol Allergy Mild RASH Verified 08/16/20 11:53 meloxicam AdvReac Intermediate GI SYMPTOMS Verified 08/16/20 11:53 shellfish derived AdvReac Intermediate gi symptoms Verified 08/16/20 11:53 topiramate AdvReac Intermediate NAUSEA Verified 08/16/20 11:53 lisinopril AdvReac Unknown cough Verified 09/01/20 04:29 Home Medications Medication Instructions Recorded Confirmed Type aspirin 81 mg PO QAM 06/08/18 08/31/20 History budesonide-formoterol [Symbicort] 2 puff INHALATION Q12H 06/08/18 08/31/20 History fluticasone propionate [Flonase 2 spray INTRANASAL QAM PRN 06/08/18 08/31/20 History Allergy Relief] folic acid 1 mg PO QAM 06/08/18 08/31/20 History furosemide [Lasix] 20 mg PO QAM PRN 06/08/18 08/31/20 History gabapentin [Neurontin] 800 mg PO TID 08/25/18 08/31/20 History ipratropium-albuterol 3 ml INHALATION Q4H PRN 10/04/18 08/31/20 History omeprazole 20 mg PO QAM 10/04/18 08/31/20 History albuterol sulfate [Ventolin HFA] 2 puff INHALATION Q4H PRN 11/14/18 08/31/20 History amlodipine [Norvasc] 5 mg PO QAM 11/14/18 08/31/20 History ondansetron 4 mg PO Q8H PRN 11/14/18 08/31/20 History Saccharomyces boulardii [Florastor] 250 mg PO BID #20 cap 11/15/18 08/31/20 Rx darunavir ethanolate 600 mg tablet 600 mg PO BIDM #180 tab 02/09/19 08/31/20 Rx raltegravir 400 mg tablet 400 mg PO BID #180 tab 02/09/19 08/31/20 Rx ritonavir 100 mg tablet 100 mg PO BID #180 tab 02/09/19 08/31/20 Rx metoprolol succinate [Toprol XL] 50 mg PO QAM 04/07/19 08/31/20 History duloxetine [Cymbalta] 60 mg PO QAM 05/21/19 08/31/20 History atorvastatin 80 mg PO HS 08/16/20 08/31/20 History clonazepam 2 mg PO BID 08/16/20 08/31/20 History levetiracetam 1,500 mg PO BID 08/16/20 08/31/20 History lorazepam 1 mg PO BID PRN 08/16/20 08/31/20 History oxycodone 10 mg PO Q6H PRN 08/16/20 08/31/20 History ramelteon 8 mg PO HS 08/16/20 08/31/20 History zaleplon 10 mg PO HS PRN 08/16/20 08/31/20 History warfarin 5 mg PO DAILY 09/01/20 09/01/20 History Patient History Medical History Alcohol abuse Anal dysplasia Anxiety AVM (arteriovenous malformation) brain Carotid stenosis "03/06/15-SAÚL occlusion, LICA with 50-59% stenosis" Chronic pain syndrome COPD (chronic obstructive pulmonary disease) Depression Dyslipidemia History of alcohol abuse History of CVA (cerebrovascular accident) "in setting of right carotid artery thrombosis" History of DVT (deep vein thrombosis) 09/2018 - started on Eliquis History of pulmonary embolism 12/2018 - in the setting of Eliquis use. Placed on Coumadin HIV (human immunodeficiency virus infection) Hypertension Migraine Neuropathic pain of both feet Polyp of colon (12/21/12) Seizure disorder Tobacco abuse Surgical History History of anal lesion History of colonoscopy Family History Father Lung cancer Mother Hypertension Social History Smoking Status: Current every day smoker Tobacco Type: Cigarettes Years Smoked: 45; Cigarettes Per Day: 10; Second Hand Exposure: No; Hx Alcohol Use: No Hx Substance Use: Yes Last Used Substance: Hours (ago) Last Used Substance Other:: Pain medications in the ED per patient reported. 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 Beliefs That Will Affect Care: Religion Religion Beliefs: Mandaeism marital status: Current Living Situation: Alone Feels Safe at Home: Yes Safety Concerns: Feels Safe At This Time Assistive Devices: None Review of Systems Review of Systems: All systems reviewed & are unremarkable except as noted in HPI & below Physical Exam Physical Exam: Physical Exam: Constitutional: appearance disheveled unkempt Ears, Nose, Mouth and Throat: mucous membranes moist Cardiovascular: normal S-1 and S-2 and regular rate and rhythm Respiratory: course distant breath sounds Musculoskeletal: no peripheral edema and decreased distal pulses Skin: no stigmata of neurocutaneous disease noted and normal and intact Eyes: extraocular muscles intact (EOMI) NEUROLOGIC EXAMINATION: Mental status: Alert and interactive Oriented date Oriented to person Speech fluent with no evidence of aphasia Cranial Nerves flattening left nasolabial fold Reflexes: Deep tendon reflexes right UE 2/5, left decreased, right LE 2/5 , left decreased Sensory: decreased sensation vibration left to bermudez, GT proprioception absent bilaterally Coordination: finger to nose on right, left arm paretic Gait/Stance: Posture shoulders rounded Motor: unable to lift right arm Strength: right hand pencil maker biceps triceps 4+/5, left 0/5, right hip flex plantar flex ext 4+/5, left 3/5 Results & Data ([facility]) Vital Signs (Past 12 Hours) Vital Signs Temp Pulse Resp BP Pulse Ox 09/04/20 07:32 36.6 C 95 H 16 112/77 96 Laboratory Results Abnormal lab results 09/04/20 Range/Units 05:57 RBC 4.42 L (4.7-6.1) M/uL Hgb 12.4 L (14.0-18.0) g/dL Hct 36.5 L (42-52) % RDW Std Deviation 53.7 H (36.4-46.3) fL RDW Coeff of Tanesha 17.5 H (11.5-14.5) % [place] # (Auto) 0.69 H (0.11-0.59) K/uL Diagnostic Findings cT head-No acute intracranial hemorrhage, midline shift, intracranial mass, hydrocephalus, territorial ischemia or abnormal extra-axial collection. Encephalomalacia from chronic right MCA territorial infarct redemonstrated. Age- related involutional changes with ex vacuo ventriculomegaly. Patchy white matter hypodensities suggest chronic microvascular ischemic disease. the calvarium is intact. Minimal mucosal thickening of the maxillary sinuses. Ethmoid air cells are clear. The mastoid air cells are also clear. Skull and soft tissues and orbits are within normal limits.
--- NOTE | 2020-09-04 15:42 | XRay Report ---
XR foot LT 2V HISTORY: 55 years-old Male pain, s/p fall, r/o fracture acute left foot pain status post fall COMPARISON: Left foot radiographs 10/24/2018 TECHNIQUE: 2 views of the left foot FINDINGS: Mild multifocal osteoarthritis. No acute fracture, dislocation or opaque foreign body. Demineralized appearance of the bones. IMPRESSION: No acute fracture. ACT 112: Negative or not required by law. The above report was generated using voice recognition software. It may contain grammatical, syntax o r spelling errors. Electronically signed by: Khoa Trevizo M.D. 09/04/2020 3:41 PM
--- NOTE | 2020-09-04 15:47 | XRay Report ---
XR knee LT 1 or 2V routine CLINICAL HISTORY: Left knee pain status post trauma COMPARISON: October 2018 DISCUSSION: The bones are mildly osteopenic. No acute fractures or dislocations are visualized. There are vascular calcifications present. IMPRESSION: No acute fractures or dislocations identified. ACT 112: Negative or not required by law. Electronically signed by: Donnie Putnam M.D. 09/04/2020 3:45 PM
--- NOTE | 2020-09-04 15:49 | Hospitalist Progress Note ---
Date of Service September 04, 2020 Assessment & Plan (1) Chest pain: Metabolic encephalopathy/confusion: per Dr. Veloz notes: Multifactorial-history of alcohol abuse/illicit drug abuse at home patient was very agitated combative last 2 days, difficult to arouse LFTs/ammonia level was within normal limits Gabapentin, oxycodone, scheduled dose of lorazepam was kept on hold CT head was negative for any acute change Mental status improved to baseline after supportive care with IV hydration, holding off sedatives and hypnotics. home Medications Neurontin, pain meds resumed as patient: Planes of constant severe bilateral chronic neuropathic pain Not safe to return home, Referral made to skilled rehab oriented x 3, coherent today will avoid additional narcotics Chest pain per Dr. Veloz notes: presented complained of sharp pain at ant chest wall Possible musculoskeletal origin chest pain very atypical for angina has been symptom free since admission no hypoxia , or Orthopnea CT chest negative for PE EKG nonischemic. Initial troponin negative. possible muscle spasm , ordered for flexeril -------- resolved (2) Neuropathic pain of both feet: chronic on Neurontin 800 mg TID -resumed Neuro consulted for increasing neuropathic pain (3) Alcohol abuse: per Dr. Veloz notes: H/o heavy alcohol use in the records. ETOH level undetectable no s/s of withdrawal so far Monitor closely pt has very labile mood, history of chronic alcohol and drug abuse, threatens to leave AMA when pain pain occasions and not given as soon as possible Stop them were kept on hold next 2 days for sedation Home medications resumed, pain medication should not be escalated due to history of narcotic pain medication abuse in the past (4) Seizure disorder: on Keppra (5) History of pulmonary embolism: per Dr. Veloz notes: CTA chest no PE lower ext Doppler no DVT given hx of non compliance and ETOH abuse , high risk for fall /bleeding complication not a candidate for chronic anticoagulation with Coumadin (6) History of DVT (deep vein thrombosis): per Dr. Veloz notes: No DVT present on bilateral doppler Has chronic bilateral neuropathic pain on Neurontin (7) HIV positive: on darunivir, raltegravir, and ritonavir per home regimen. pt is supposed to follow up with [facility] Patient has not seen infectious disease for a long period of time d/w [facility] , no change in medications recommended Will need appointment scheduled with [facility] after discharge from rehab (8) Chronic pain syndrome: Home medications resumed will consult pain management for increasing neuropathic pain (9) Tobacco abuse: reportedly smokers 4 ppd cigarettes. Advised him to quit. nicotine patch. (10) Anxiety: Resume home dose of clonazepam reports increased level of anxiety Psych consulted (11) Hypertension: currently at goal. Cont current medication. (12) COPD (chronic obstructive pulmonary disease): stable, no evidence of exacerbation at this time. (13) DVT prophylaxis: Lovenox Full Code Disposition : awaiting acceptance of SNF plan of care discussed with patient in detail and at length all questions answered he is understanding, agreeable, comfortable with the plan of care Admission and Anticipated Discharge Date Admission Date: September 01, 2020 Subjective ff up for chest pain, etc seen resting in bed, sitting up states he feels better today no confusion, answers all questions appropriately no chest pain, dyspnea reports left knee and foot pain increasing neuropathic pain on both legs and feet reports increasing anxiety no other symptoms Review of Systems Review of Systems: All systems reviewed & are unremarkable except as noted in Subjective Physical Exam Physical Exam: General- oriented x 3, not in distress, speaks in sentences with no effort or accessory muscle use poorly kempt appears somewhat weak Head- atraumatic Eyes- PERRL, EOMI, anicteric ENT- oropharynx clear Neck- supple, no JVD, no adenopathy, no thyromegaly; carotids +2/2, no bruits appreciated Lungs- clear to auscultation bilaterally, no rales/wheezes Heart- normal rate, regular rhythm; no murmur, no gallop, no rub appreciated Abdomen- normal bowel sounds, nondistended, soft, nontender, no masses or hepatosplenomegaly Extremities- no pretibial edema, no calf tenderness; peripheral pulses intact left knee: no edema, erythema, warmth, tenderness left foot: (+) small scabbed wounds on the toes- healing well no signs of infection Neuro- alert, oriented x 3; CN 2-12 grossly intact; motor 5/5 bilaterally;sensation 100% on all extremities; no other gross focal neurologic deficits Skin- warm & dry Results & Data Results & Data ([facility]) Vital Signs (Past 12 Hours) Vital Signs Temp Pulse Resp BP Pulse Ox 09/04/20 07:32 36.6 C 95 H 16 112/77 96 (1) Chest pain Chest pain type: unspecified Qualified Code(s): R07.9 - Chest pain, unspecified (2) Hypertension Hypertension type: essential hypertension Qualified Code(s): I10 - Essential (primary) hypertension
[2020-09-04] MEDS: ATORVASTATIN 40 MG TAB PO SCH (20:41)
[2020-09-05 07:26] LABS: Basophils # (auto) 0.02 K/uL (0-0.2); Basophils % (auto) 0.3 %; Eosinophils # (auto) 0.08 K/uL (0-0.5); Eosinophils % (auto) 1.3 %; Hematocrit (blood only) 38.1 % (42-52); Hemoglobin 12.6 g/dL (14.0-18.0); Immature Granulocytes # (auto) 0.01 K/uL (0.00-0.02); Immature Granulocytes % (auto) 0.2 %; Lymphocytes # (auto) 2.23 K/uL (1.2-3.4); Lymphocytes % (auto) 37.3 %; Mean Corpuscular Hemoglobin 27.5 pg (25-34); Mean Corpuscular Hgb Conc 33.1 g/dL (32-36); Mean Platelet Volume 9.8 fL (7.4-10.4); Monocytes # (auto) 0.66 K/uL (0.11-0.59); Neutrophils # (auto) 2.98 K/uL (1.4-6.5); Neutrophils % (auto) 49.9 %; Platelet Count 255 K/uL (130-400); RDW Coefficient of Variation 17.3 % (11.5-14.5); RDW Standard Deviation 53.1 fL (36.4-46.3); Red Blood Count 4.59 M/uL (4.7-6.1); White Blood Count 5.98 K/uL (4.8-10.8)
[2020-09-05] MEDS: SACCHAROMYCES BOULARDII 250 MG CAP PO SCH ×2 (08:21→20:58)
[2020-09-05] MEDS: GABAPENTIN 800 MG TAB PO SCH ×3 (08:21→20:59)
[2020-09-05] MEDS: ASPIRIN 81 MG ECTAB PO SCH (08:21)
[2020-09-05] MEDS: PANTOprazole 40 MG TAB PO SCH (08:21)
[2020-09-05] MEDS: levETIRAcetam 500 MG TAB PO SCH ×2 (08:21→21:00)
[2020-09-05] MEDS: RALTEGRAVIR POTASSIUM 400 MG TAB PO SCH ×2 (08:21→20:58)
[2020-09-05] MEDS: FOLIC ACID 1 MG TAB PO SCH ×2 (08:22→08:43)
[2020-09-05] MEDS: amLODIPine BESYLATE 5 MG TAB PO SCH (08:22)
[2020-09-05] MEDS: METOPROLOL SUCC 50MG EXT REL TAB PO SCH (08:22)
[2020-09-05] MEDS: RITONAVIR 100 MG TAB PO SCH ×2 (08:22→21:00)
[2020-09-05] MEDS: THIAMINE HCL 100 MG TAB PO SCH (08:22)
[2020-09-05] MEDS: DULoxetine HCL 60 MG CAP PO SCH (08:22)
[2020-09-05] MEDS: DARUNAVIR ETHANOLATE 600 MG TAB PO SCH ×2 (08:23→16:52)
[2020-09-05] MEDS: NICOTINE 21 MG/24 HR TDSY TD SCH (08:23)
[2020-09-05] MEDS: ENOXAPARIN INJ 40 MG/0.4 ML SYR SQ SCH (08:23)
[2020-09-05] MEDS: FLUTICASONE/VILANTEROL 100/25MCG 14 PUFFS/INHALER INH SCH (08:25)
[2020-09-05] MEDS: clonazePAM 1 MG TAB PO SCH ×2 (08:25→20:56)
[2020-09-05] MEDS: oxyCODONE HCL IR 5 MG TAB (IMMEDIATE RELEASE) PO PRN ×2 (08:26→15:23)
[2020-09-05 09:27] LABS: 7-Aminoclonaz, Confirm >2000 ng/mL (<25); Codeine Urine NEGATIVE ng/mL (<50); Hydro-Alp Ur, GC/MS NEGATIVE ng/mL (<25); Hydrocodone Urine NEGATIVE ng/mL (<50); Hydromor Urine NEGATIVE ng/mL (<50); Hydroxyethylflurazepam, Conf NEGATIVE ng/mL (<50); Hydroxymidazolam Ur, GC/MS NEGATIVE ng/mL (<50); Hydroxytriazolam NEGATIVE ng/mL (<50); Lorazepam, Ur GC/MS 1090 ng/mL (<50); Marijuana Quant, GCMS Urine 654 ng/mL (<5); Morphine Urine NEGATIVE ng/mL (<50); Nordiazepam, Confirm NEGATIVE ng/mL (<50); Norhydrocodone Conf Ur NEGATIVE ng/mL (<50); Noroxycodone Urine 1930 ng/mL (<50); Oxazepam Ur, GC/MS NEGATIVE ng/mL (<50); Oxycodone Urine 8690 ng/mL (<50); Oxymorph Urine 7410 ng/mL (<50); Temazepam, Confirm NEGATIVE ng/mL (<50)
--- NOTE | 2020-09-05 11:51 | Psychiatric Consultation ---
Date of Consultation September 05, 2020 Impression / Recommendations Impression Dr. Katelynn Faulkner was directly involved in review and discussion of the patient's case and participated in medical decision making regarding treatment recommendations. RECOMMENDATION: 09/05/2020 - Psychiatric consultation requested to evaluate patient for worsening anxiety and depression. Pt currently prescribed duloxetine 60mg daily. Also prescribed clonazepam 2mg BID with additional prescription for lorazepam 1 mg BID prn. Pt received both clonazepam (#60) and lorazepam (#10) prescriptions on 08/26/20, as well as oxycodone (#120) according to PDMP query. 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 - Pt agrees to addition of mirtazapine to target his depression and anxiety, while ideally offering support for poor sleep as well. Will initiate a dose of 7.5mg tonight, and will plan to increase to 15mg tomorrow night. Pt agreed that with the addition of mirtazapine, he would be willing to begin the process of tapering his dose of clonazepam. Pt agreed to take 1mg TID as the next step in this taper. Would suggest optimization of his medication regimen to reduce reliance on benzodiazepines, especially if he will require ongoing use of opioid pain medications. Risks, benefits, and potential side effects of the above plan were reviewed. Pt verbalized understanding and is agreeable with the above changes. - Pt denies acute SI, although he does admit to hopelessness and guilt related to grief following 's . Pt does admit to worsening of mood in the setting of the [id number] of his 's passing, but states he had been struggling with depression and anxiety even prior to his 's cancer diagnosis. - Pt states that he has an intake with [facility] for psychiatry services - will call office to confirm this appointment and offer options for therapy services as well. Pt is also agreeable with our team providing him with some grief counseling services he may desire to purse. - Appreciate the opportunity to participate in the care of this patient. Please reach out to our service with any additional questions or updates. Pt does appear to be psychiatrically appropriate for transfer to a snf facility, appropriate with conversation and denying acute safety concerns. He is reporting understanding of his discharge options and is requesting SNF placement, verbalizing understanding of safety risks related to returning home without adequate support. - Case management documentation suggests concern from following agencies regarding patient's decision making ability. To be clear, this would be a competency evaluation which is not able to be done here in the hospital. Competency is a legal determination that requires numerous evaluations. This can be explored further by these agencies directly if this is felt to be necessary. Risk Factors Assessment Do You Have Access To A Gun?: No Psych History Identifying Data 55-year-old male admitted medically on 08/31/20 after presenting to the ED with reports of chest pain. Pt has numerous other chronic medical conditions that have been reportedly interfering with ability to care for self. Psychiatric consultation was requested to evaluate patient for worsening depression and anxiety. It is also reported that patient will be a [employer] for SNF referral. Chief Complaint "I fell. I've just been down because I can't walk or do anything to take care of myself." History of Present Illness Dion Morton" Riser is a 55-year-old male admitted medically on 08/31/20 after presenting to the ED with chest pain. PMH is significant for history of CVA, HIV, seizure disorder, chronic pain syndrome, HTN, HLD, COPD, migraines, neuropathy, carotid stenosis, depression, anxiety, and alcohol/tobacco abuse. Psychiatric consultation was requested to evaluate patient for worsening anxiety and depression. It is also reported that patient is a [employer] for SNF referral. Pt has been documented to be agreeable with discharge plan for SNF placement and physical rehabilitation. Pt was cooperative with psychiatric assessment. He believes that he was admitted due to falls, stating that he is not doing well physically and is concerned about his ability to safely care for himself at home. Pt actually shares that he is very grateful to be referred for physical rehab, as he is hoping to build up his strength. When asked about his mood, the patient admits "I'm depressed. I have been since my . It was a year ago last Wednesday." With further questioning, the patient does reveal that he has struggled with depression and anxiety at various times throughout his life. Pt states that he was started on duloxetine for pain, but does not feel it has been helpful. He does report that he was previously prescribed 120mg daily and states "that made me all loopy." He states "I was just sitting there staring off at things, it wasn't good so we had to come down on the dose again." Pt's reports of the duration of his clonazepam/lorazepam use are not clearly reliable, as he believes he has only been prescribed these medications for the past few months. This seems accurate for the clonazepam, but lorazepam has been prescribed for at least the past year based on PDMP query. 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 Pt does report that he is willing for medication adjustments that would allow him to reduce his need for the benzodiazepines. Pt does admit to once monthly panic attacks, generally related to specific stressors or thoughts about his . He admits to hopelessness and passive thoughts to escape, accompanied with guilt - "he took care of me when I had my stroke, but I couldn't be there when he . I still wish I could have taken his place." Pt does admit that he is not struggling with acute SI or thoughts to harm himself or others. Pt denies any safety concerns related to being cared for at a snf facility and feels his needs can be addressed in that setting. Pt did agree to allow us to confirm his [facility] psychiatry appointment and he is also interested in information about individual counseling or grief counseling. Pt denied other needs or concerns for our service at this time. Past Psychiatric History Outpatient Services: Psychotropic medications currently prescribed by his PCP's office - pt states he has been referred to [facility] psychiatry for continued management. Previous Psych Admissions: Denies previous inpatient psychiatric admissions Do You Have Access To A Gun?: No History of Previous Suicide Attempt: No Past Medication Trials: Per patient reports: 1. Prozac - taken ~1 year ago prior to 's , did not feel it was beneficial 2. Cymbalta - prescribed for neuropathy/depression, states he did not tolerate higher dosing 3. Gabapentin - for pain 4. Klonopin 5. Ativan Allergies Allergy/AdvReac Type Severity Reaction Status Date / Time azithromycin Allergy Severe rash/anaphy Verified 09/01/20 04:29 laxis Penicillins Allergy Severe ANAPHYLAXIS Verified 08/16/20 11:53 niacin Allergy Intermediate RASH Verified 08/16/20 11:53 Sulfa (Sulfonamide Allergy Intermediate "ITCHY Verified 08/16/20 11:53 Antibiotics) RASH" tramadol Allergy Mild RASH Verified 08/16/20 11:53 meloxicam AdvReac Intermediate GI SYMPTOMS Verified 08/16/20 11:53 shellfish derived AdvReac Intermediate gi symptoms Verified 08/16/20 11:53 topiramate AdvReac Intermediate NAUSEA Verified 08/16/20 11:53 lisinopril AdvReac Unknown cough Verified 09/01/20 04:29 Home Medications Medication Instructions Recorded Confirmed Type aspirin 81 mg PO QAM 06/08/18 08/31/20 History budesonide-formoterol [Symbicort] 2 puff INHALATION Q12H 06/08/18 08/31/20 History fluticasone propionate [Flonase 2 spray INTRANASAL QAM PRN 06/08/18 08/31/20 History Allergy Relief] folic acid 1 mg PO QAM 06/08/18 08/31/20 History furosemide [Lasix] 20 mg PO QAM PRN 06/08/18 08/31/20 History gabapentin [Neurontin] 800 mg PO TID 08/25/18 08/31/20 History ipratropium-albuterol 3 ml INHALATION Q4H PRN 10/04/18 08/31/20 History omeprazole 20 mg PO QAM 10/04/18 08/31/20 History albuterol sulfate [Ventolin HFA] 2 puff INHALATION Q4H PRN 11/14/18 08/31/20 History amlodipine [Norvasc] 5 mg PO QAM 11/14/18 08/31/20 History ondansetron 4 mg PO Q8H PRN 11/14/18 08/31/20 History Saccharomyces boulardii [Florastor] 250 mg PO BID #20 cap 11/15/18 08/31/20 Rx darunavir ethanolate 600 mg tablet 600 mg PO BIDM #180 tab 02/09/19 08/31/20 Rx raltegravir 400 mg tablet 400 mg PO BID #180 tab 02/09/19 08/31/20 Rx ritonavir 100 mg tablet 100 mg PO BID #180 tab 02/09/19 08/31/20 Rx metoprolol succinate [Toprol XL] 50 mg PO QAM 04/07/19 08/31/20 History duloxetine [Cymbalta] 60 mg PO QAM 05/21/19 08/31/20 History atorvastatin 80 mg PO HS 08/16/20 08/31/20 History clonazepam 2 mg PO BID 08/16/20 08/31/20 History levetiracetam 1,500 mg PO BID 08/16/20 08/31/20 History lorazepam 1 mg PO BID PRN 08/16/20 08/31/20 History oxycodone 10 mg PO Q6H PRN 08/16/20 08/31/20 History ramelteon 8 mg PO HS 08/16/20 08/31/20 History zaleplon 10 mg PO HS PRN 08/16/20 08/31/20 History warfarin 5 mg PO DAILY 09/01/20 09/01/20 History Family History Pt reports significant family history of depression. Denies known family history of substance abuse concerns. Substance Abuse History Pt admits to significant history of tobacco use. Pt admits to drinking 2-3 alcoholic beverages daily. Had gone to inpatient [facility] rehab 2 years ago for alcohol abuse. Documentation suggests a history of alcohol abuse, tobacco abuse, and has been prescribed high-dose benzodiazepines and opiate medications. 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 Denies other perceived trauma. Patient History Medical History Alcohol abuse Anal dysplasia Anxiety AVM (arteriovenous malformation) brain Carotid stenosis "03/06/15-SAÚL occlusion, LICA with 50-59% stenosis" Chronic pain syndrome COPD (chronic obstructive pulmonary disease) Depression Dyslipidemia History of alcohol abuse History of CVA (cerebrovascular accident) "in setting of right carotid artery thrombosis" History of DVT (deep vein thrombosis) 09/2018 - started on Eliquis History of pulmonary embolism 12/2018 - in the setting of Eliquis use. Placed on Coumadin HIV (human immunodeficiency virus infection) Hypertension Migraine Neuropathic pain of both feet Polyp of colon (12/21/12) Seizure disorder Tobacco abuse Surgical History History of anal lesion History of colonoscopy Family History Father Lung cancer Mother Hypertension Social History Smoking Status: Current every day smoker Tobacco Type: Cigarettes Years Smoked: 45; Cigarettes Per Day: 10; Second Hand Exposure: No; Hx Alcohol Use: No Hx Substance Use: Yes Last Used Substance: Hours (ago) Last Used Substance Other:: Pain medications in the ED per patient reported. Preferred Language: Pakistani Communication Ability: Unable Snag Grinder Required: No Beliefs That Will Affect Care: Lutheran (Taoism) Lutheran Beliefs: Zoroastrianism marital status: Current Living Situation: Alone Feels Safe at Home: Yes Safety Concerns: Feels Safe At This Time Assistive Devices: Walker Physical Exam Psychiatric: Orientation: alert, oriented x 3 and cooperative Apperance: appropriately dressed, + disheveled and appeared stated age Thin appearing male, laying in bed in not acute distress. Pt appears sedated, occasionally drifting off to sleep during our conversation but easily awoken. Pt does have long, curly roach hair. Appears somewhat unkempt. Eye Contact: + fair eye contact Motor Behavior: no abnormal motor movements (observed while laying in bed) Speech: normal rate/rhythm/volume of speech Affect: + depressed affect and mood congruent with affect Mood: + depressed mood and + anxious mood Thought Process: goal directed thought process and clear/coherent thought process Thought Content: reality based without delusions, + hopelessness (intermittently ) and + guilt Suicidal Thoughts: denies suicidal thoughts and denies suicidal intent Homicidal Thoughts: denies homicidal thoughts Hallucinations: no auditory hallucinations and no visual hallucinations Cognition: recent memory grossly intact, attention grossly intact and language grossly intact Estimated Intelligence: consistent with education level Insight: + fair insight Judgement: + fair judgement Vital Signs (Past 24 Hours): Last Vital Signs Temp 36.6 C 09/05/20 07:40 Pulse 83 09/05/20 07:40 Resp 16 09/05/20 07:40 BP 105/78 09/05/20 07:40 Pulse Ox 97 09/05/20 07:40 Review of Systems Constitutional: reports fatigue, poor sleep, weakness Cardiovascular: reports chest pain "when I get anxious" Respiratory: denied Gastrointestinal: denied Neurological: reports significant neuropathy in bilateral lower extremities Psychiatric: denies symptoms other than stated above Total of at least 10 systems reviewed, pertinent positives as above and in HPI. Results & Data (PSY) Medications Administered Acetaminophen (Acetaminophen 325 Mg Tab) 650 mg PO Q4H PRN PRN Reason: Pain or Fever Stop: 09/30/20 19:27 Last Admin: 09/02/20 09:11 Dose: 650 mg Documented by: [id number] Amlodipine Besylate (A[facility]odipine Besylate 5 Mg Tab) [facility] Stop: 10/01/20 08:59 Last Admin: 09/05/20 08:22 Dose: 5 mg Documented by: [id number] Admin: 09/04/20 08:10 Dose: 5 mg Documented by: [id number] Admin: 09/03/20 07:25 Dose: 5 mg Documented by: [id number] Admin: 09/02/20 09:13 Dose: 5 mg Documented by: [id number] Admin: 09/01/20 09:38 Dose: 5 mg Documented by: [id number] Aspirin (Aspirin 81 Mg Ectab) [facility] Stop: 10/01/20 08:59 Last Admin: 09/05/20 08:21 Dose: 81 mg Documented by: [id number] Admin: 09/04/20 08:57 Dose: 81 mg Documented by: [id number] Admin: 09/02/20 09:12 Dose: 81 mg Documented by: [id number] Admin: 09/01/20 09:49 Dose: 81 mg Documented by: [id number] Atorvastatin Calcium (Atorvastatin 40 Mg Tab) 80 mg PO [facility] Stop: 10/01/20 20:59 Last Admin: 09/04/20 20:41 Dose: 80 mg Documented by: [id number] Admin: 09/03/20 20:19 Dose: 80 mg Documented by: [id number] Admin: 09/02/20 20:22 Dose: 80 mg Documented by: [id number] Admin: 09/02/20 04:01 Dose: 80 mg Documented by: [id number] Clonazepam (Clonazepam 1 Mg Tab) 2 mg PO BID [facility] Stop: 09/30/20 21:44 Last Admin: 09/05/20 08:25 Dose: 2 mg Documented by: [id number] Admin: 09/04/20 20:42 Dose: 2 mg Documented by: [id number] Admin: 09/04/20 08:09 Dose: 2 mg Documented by: [id number] Admin: 09/03/20 20:16 Dose: 2 mg Documented by: [id number] Admin: 09/02/20 09:11 Dose: 2 mg Documented by: [id number] Admin: 09/02/20 04:01 Dose: Not Given Documented by: [id number] Admin: 09/01/20 13:14 Dose: 2 mg Documented by: [id number] Admin: 08/31/20 22:39 Dose: 2 mg Documented by: [id number] Cyclobenzaprine HCl (Cyclobenzaprine Hcl 5 Mg Tab) 5 mg PO TID PRN PRN Reason: muscle spasm Stop: 10/02/20 20:59 Last Admin: 09/03/20 07:10 Dose: 5 mg Documented by: [id number] Admin: 09/02/20 18:51 Dose: 5 mg Documented by: [id number] Darunavir (Darunavir Ethanolate 600 Mg Tab) 600 mg PO BIDM [facility] Stop: 09/30/20 21:39 Last Admin: 09/05/20 08:23 Dose: 600 mg Documented by: [id number] Admin: 09/04/20 16:49 Dose: 600 mg Documented by: [id number] Admin: 09/04/20 08:11 Dose: 600 mg Documented by: [id number] Admin: 09/03/20 17:41 Dose: 600 mg Documented by: [id number] Admin: 09/03/20 07:25 Dose: 600 mg Documented by: [id number] Admin: 09/02/20 17:04 Dose: 600 mg Documented by: [id number] Admin: 09/02/20 09:14 Dose: 600 mg Documented by: [id number] Admin: 09/01/20 17:39 Dose: Not Given Documented by: [id number] Admin: 09/01/20 09:40 Dose: 600 mg Documented by: [id number] Admin: 08/31/20 22:33 Dose: 600 mg Documented by: [id number] Duloxetine HCl (Duloxetine Hcl 60 Mg Cap) 60 mg PO QAM [facility] Stop: 10/01/20 08:59 Last Admin: 09/05/20 08:22 Dose: 60 mg Documented by: [id number] Admin: 09/04/20 08:11 Dose: 60 mg Documented by: [id number] Admin: 09/03/20 07:28 Dose: 60 mg Documented by: [id number] Admin: 09/02/20 09:12 Dose: 60 mg Documented by: [id number] Admin: 09/01/20 09:50 Dose: 60 mg Documented by: [id number] Enoxaparin Sodium (Enoxaparin Inj 40 Mg/0.4 Ml Syr) 40 mg SQ QAM [facility] Stop: 10/01/20 08:59 Last Admin: 09/05/20 08:23 Dose: 40 mg Documented by: [id number] Admin: 09/04/20 09:02 Dose: Not Given Documented by: [id number] Admin: 09/02/20 09:13 Dose: 40 mg Documented by: [id number] Admin: 09/01/20 09:52 Dose: 40 mg Documented by: [id number] Fluticasone/Vilanterol (Fluticasone/Vilanterol 100/25mcg 14 Puffs/Inhaler) 1 puffs INH DAILY [facility] Stop: 10/01/20 08:59 Last Admin: 09/05/20 08:25 Dose: 1 puffs Documented by: [id number] Admin: 09/04/20 08:12 Dose: 1 puffs Documented by: [id number] Admin: 09/03/20 07:28 Dose: 1 puffs Documented by: [id number] Admin: 09/02/20 09:11 Dose: 1 puffs Documented by: [id number] Admin: 09/01/20 09:53 Dose: 1 puffs Documented by: [id number] Folic Acid (Folic Acid 1 Mg Tab) 1 mg PO QAM [facility] Stop: 10/03/20 08:59 Last Admin: 09/05/20 08:43 Dose: Not Given Documented by: [id number] Admin: 09/04/20 09:03 Dose: Not Given Documented by: [id number] Admin: 09/03/20 07:29 Dose: Not Given Documented by: [id number] Furosemide (Furosemide 20 Mg Tab) 20 mg PO QAM PRN PRN Reason: Swelling Stop: 09/30/20 21:33 Last Admin: 09/01/20 09:41 Dose: 20 mg Documented by: [id number] Gabapentin (Gabapentin 800 Mg Tab) 800 mg PO TID [facility] Stop: 09/30/20 21:39 Last Admin: 09/05/20 08:21 Dose: 800 mg Documented by: [id number] Admin: 09/04/20 20:41 Dose: 800 mg Documented by: [id number] Admin: 09/04/20 13:49 Dose: 800 mg Documented by: [id number] Admin: 09/04/20 08:09 Dose: 800 mg Documented by: [id number] Admin: 09/03/20 20:19 Dose: 800 mg Documented by: [id number] Admin: 09/03/20 14:53 Dose: 800 mg Documented by: [id number] Admin: 09/03/20 07:29 Dose: 800 mg Documented by: [id number] Admin: 09/02/20 18:50 Dose: 800 mg Documented by: [id number] Admin: 09/01/20 13:04 Dose: 800 mg Documented by: [id number] Admin: 09/01/20 09:49 Dose: 800 mg Documented by: [id number] Admin: 08/31/20 22:32 Dose: 800 mg Documented by: [id number] Levetiracetam (Levetiracetam 500 Mg Tab) 1,500 mg PO BID [facility] Stop: 09/30/20 21:44 Last Admin: 09/05/20 08:21 Dose: 1,500 mg Documented by: [id number] Admin: 09/04/20 20:43 Dose: 1,500 mg Documented by: [id number] Admin: 09/04/20 08:10 Dose: 1,500 mg Documented by: [id number] Admin: 09/03/20 20:17 Dose: 1,500 mg Documented by: [id number] Admin: 09/03/20 07:27 Dose: 1,500 mg Documented by: [id number] Admin: 09/02/20 20:20 Dose: 1,500 mg Documented by: [id number] Admin: 09/02/20 09:12 Dose: 1,500 mg Documented by: [id number] Admin: 09/02/20 04:01 Dose: 1,500 mg Documented by: [id number] Admin: 09/01/20 09:39 Dose: 1,500 mg Documented by: [id number] Admin: 08/31/20 22:33 Dose: 1,500 mg Documented by: [id number] Lorazepam (Lorazepam 1 Mg Tab) 1 mg PO BID PRN PRN Reason: Anxiety Stop: 09/30/20 22:01 Last Admin: 08/31/20 22:31 Dose: 1 mg Documented by: [id number] Metoprolol Succinate (Metoprolol Succ 50mg Ext Rel Tab) [facility] Stop: 10/01/20 08:59 Last Admin: 09/05/20 08:22 Dose: 50 mg Documented by: [id number] Admin: 09/04/20 08:10 Dose: 50 mg Documented by: [id number] Admin: 09/03/20 07:26 Dose: 50 mg Documented by: [id number] Admin: 09/02/20 09:14 Dose: 50 mg Documented by: [id number] Admin: 09/01/20 09:50 Dose: 50 mg Documented by: [id number] Miscellaneous (Remove Nicoderm Patch) 1 ea N/A [id number] [facility] Stop: 10/04/20 08:58 Last Admin: 09/05/20 08:26 Dose: 1 ea Documented by: [id number] Admin: 09/04/20 08:13 Dose: 1 ea Documented by: [id number] Nicotine (Nicotine 21 Mg/24 Hr Tdsy) 21 mg TD [facility] Stop: 10/03/20 16:29 Last Admin: 09/05/20 08:23 Dose: 21 mg Documented by: [id number] Admin: 09/04/20 08:11 Dose: 21 mg Documented by: [id number] Admin: 09/03/20 17:41 Dose: 21 mg Documented by: [id number] Nitroglycerin (Nitroglycerin Sl 0.4 Mg/Tab Tab) 0.4 mg SL UD PRN PRN Reason: Chest Pain Stop: 09/30/20 19:27 Last Admin: 09/02/20 15:06 Dose: 0.4 mg Documented by: [id number] Oxycodone HCl (Oxycodone Hcl Ir 5 Mg Tab (Immediate Release)) 5 mg PO Q6 PRN PRN Reason: Pain Stop: 09/17/20 07:40 Last Admin: 09/05/20 08:26 Dose: 5 mg Documented by: [id number] Admin: 09/04/20 20:39 Dose: 5 mg Documented by: [id number] Admin: 09/04/20 13:50 Dose: 5 mg Documented by: [id number] Admin: 09/03/20 20:22 Dose: 5 mg Documented by: [id number] Pantoprazole Sodium (Pantoprazole 40 Mg Tab) 40 mg PO [facility] Stop: 10/01/20 08:59 Last Admin: 09/05/20 08:21 Dose: 40 mg Documented by: [id number] Admin: 09/04/20 08:10 Dose: 40 mg Documented by: [id number] Admin: 09/03/20 07:26 Dose: 40 mg Documented by: [id number] Admin: 09/02/20 09:13 Dose: 40 mg Documented by: [id number] Admin: 09/01/20 09:38 Dose: 40 mg Documented by: [id number] Raltegravir (Raltegravir Potassium 400 Mg Tab) 400 mg PO BID [facility] Stop: 09/30/20 21:44 Last Admin: 09/05/20 08:21 Dose: 400 mg Documented by: [id number] Admin: 09/04/20 20:43 Dose: 400 mg Documented by: [id number] Admin: 09/04/20 08:09 Dose: 400 mg Documented by: [id number] Admin: 09/03/20 20:18 Dose: 400 mg Documented by: [id number] Admin: 09/03/20 07:26 Dose: 400 mg Documented by: [id number] Admin: 09/02/20 20:23 Dose: 400 mg Documented by: [id number] Admin: 09/02/20 09:14 Dose: 400 mg Documented by: [id number] Admin: 09/02/20 04:00 Dose: 400 mg Documented by: [id number] Admin: 09/01/20 09:54 Dose: 400 mg Documented by: [id number] Admin: 08/31/20 23:26 Dose: 400 mg Documented by: [id number] Ritonavir (Ritonavir 100 Mg Tab) 100 mg PO BID [facility] Stop: 09/30/20 21:44 Last Admin: 09/05/20 08:22 Dose: 100 mg Documented by: [id number] Admin: 09/04/20 20:40 Dose: 100 mg Documented by: [id number] Admin: 09/04/20 08:11 Dose: 100 mg Documented by: [id number] Admin: 09/03/20 20:17 Dose: 100 mg Documented by: [id number] Admin: 09/03/20 07:29 Dose: 100 mg Documented by: [id number] Admin: 09/02/20 20:22 Dose: 100 mg Documented by: [id number] Admin: 09/02/20 09:13 Dose: 100 mg Documented by: [id number] Admin: 09/02/20 04:02 Dose: 100 mg Documented by: [id number] Admin: 09/01/20 13:20 Dose: 100 mg Documented by: [id number] Admin: 08/31/20 22:34 Dose: 100 mg Documented by: [id number] Saccharomyces Boulardii (Saccharomyces Boulardii 250 Mg Cap) 250 mg PO BID [facility] Stop: 09/30/20 21:44 Last Admin: 09/05/20 08:21 Dose: 250 mg Documented by: [id number] Admin: 09/04/20 20:43 Dose: 250 mg Documented by: [id number] Admin: 09/04/20 08:10 Dose: 250 mg Documented by: [id number] Admin: 09/03/20 20:18 Dose: 250 mg Documented by: [id number] Admin: 09/03/20 07:28 Dose: 250 mg Documented by: [id number] Admin: 09/02/20 20:19 Dose: 250 mg Documented by: [id number] Admin: 09/02/20 09:12 Dose: 250 mg Documented by: [id number] Admin: 09/02/20 04:00 Dose: 250 mg Documented by: [id number] Admin: 09/01/20 09:49 Dose: 250 mg Documented by: [id number] Admin: 08/31/20 22:32 Dose: 250 mg Documented by: [id number] Thiamine HCl (Thiamine Hcl 100 Mg Tab) 100 mg PO QAM [facility] Stop: 09/30/20 20:43 Last Admin: 09/05/20 08:22 Dose: 100 mg Documented by: [id number] Admin: 09/04/20 08:10 Dose: 100 mg Documented by: [id number] Admin: 09/03/20 07:30 Dose: Not Given Documented by: [id number] Admin: 09/02/20 09:13 Dose: 100 mg Documented by: [id number] Admin: 09/01/20 09:50 Dose: 100 mg Documented by: [id number] Admin: 08/31/20 21:41 Dose: 100 mg Documented by: [id number] Coding Level of Care Code 63096 [facility] Intl Hosp Care Lvl 3
--- NOTE | 2020-09-05 13:24 | Hospitalist Progress Note ---
Date of Service September 05, 2020 Assessment & Plan (1) Chest pain: initially present on admission. Underwent CT chest for PE which was negative. EKG nonischemic, initial troponin negative. This has resolved. (2) Neuropathic pain of both feet: chronic, severe 2/2 HIV medications. Cont home medications including Neurontin, duloxetine and Oxycodone. (3) Alcohol abuse: h/o heavy alcohol use without signs or symptoms of withdrwawal this admission. Patient is on a large standing dose of benzodiazepines, however. Narcotics and benzos had to be held for a time 2/2 oversedation and patient has a h/o drug abuse in the past. Avoid escalation of pain medications as a caution. (4) Seizure disorder: Reports some noncompliance with home AEDs. Continues on Keppra. Recommend outpatient Neurology follow-up after discharge. (5) History of pulmonary embolism: h/o pulmonary embolism with warfarin on his medication list on arrival to the hospital. He reported noncompliance and INR was reflective of this at 1.0. Chest CTA revealed no PE, Lower extremity doppler revealed no DVT. No further need for coumadin at this time. Also, patient is a high risk for fall with bleeding complication adding to the risk of continuing this medication. (6) HIV positive: Cont darunivir, raltegravir, and ritonavir per home regimen. pt is supposed to follow up with Fawn GROSSMAN Patient has not seen infectious disease for a long period of time Previous provider d/w [facility] GROSSM[facility] this admission, no change in medications recommended Will need appointment scheduled with Fawn GROSSMAN after discharge from rehab (7) Chronic pain syndrome: Cont chronic narcotics as above with caution for any oversedation. (8) Tobacco abuse: reportedly smokers 4 ppd cigarettes. Advised him to quit. nicotine patc h. (9) Anxiety: Psych recommends reducing clonazepam dose to 1mg PO TID and adding mirtazipine qHS. (10) Hypertension: BP is low normal, likely related to heavy doses of pain medications. Hold amlodipine at this time. (11) COPD (chronic obstructive pulmonary disease): stable, no evidence of exacerbation at this time. (12) DVT prophylaxis: Lovenox Full Code Disposition : awaiting acceptance of SNF with likely dc planned for tomorrow. Sherrie Manley DO [facility] Hospitalist Admission and Anticipated Discharge Date Admission Date: September 01, 2020 Subjective 55 yo M with severe chronic pain and neuropathy of his feet -reporting persistent neuropathic pain in feet -reports anxiety 2/2 wanting to get started with his new rehab program and he is happy to transfer. -tolerating PO Review of Systems Review of Systems: All systems reviewed & are unremarkable except as noted in Subjective Physical Exam Physical Exam: CONSTITUTIONAL: WNWD, vitals as above, generally well- appearing, eating some food EYES: normal conjunctivae, no scleral icterus ENT: external ear and nose normal, oropharynx clear, MMM RESPIRATORY: clear to auscultation bilaterally, no crackles, rales or wheezes, normal respiratory effort CARDIOVASCULAR: regular rate and rhythm, S1 and 2 heard without murmurs, gallops or rubs, no JVD, no peripheral edema CHEST: inspection of chest was normal GASTROINTESTINAL: soft, nontender, nondistended, no guarding MUSCULOSKELETAL: generalized weakness, notably cannot move LUE well and wrist remains in a flexed position, head is normocephalic and atraumatic SKIN: warm and dry NEUROLOGIC: CN 2-12 grossly intact, bilateral feet with pain to touch which were not palpated 2/2 patient's level of discomfort with this, normal cognition, normal speech, no tremor PSYCHIATRIC: alert cooperative and answering questions appropriately. Results & Data Results & Data ([facility]) Vital Signs (Past 12 Hours) Vital Signs Temp Pulse Resp BP Pulse Ox 09/05/20 07:40 36.6 C 83 16 105/78 97 Laboratory Results Short CBC 09/05/20 Range/Units 07:04 WBC 5.98 (4.8-10.8) K/uL Hgb 12.6 L (14.0-18.0) g/dL Hct 38.1 L (42-52) % Plt Count 255 (130-400) K/uL Medications Administered Current Inpatient Medications Acetaminophen (Acetaminophen 325 Mg Tab) 650 mg PO Q4H PRN PRN Reason: Pain or Fever Stop: 09/30/20 19:27 Last Admin: 09/02/20 09:11 Dose: 650 mg Documented by: Al Hydrox/Mg Hydrox/Simethicone (Aluminum/Magnesium Susp 30 Ml Udc) 15 ml PO Q4H PRN PRN Reason: Dyspepsia Stop: 09/30/20 19:27 Albuterol (Albut/Ipratrop 3mg/0.5mg Neb 3 Ml Vial) 3 ml INH Q4H PRN PRN Reason: Shortness Of Breath Or Wheezing Stop: 10/02/20 17:43 Amlodipine Besylate (Amlodipine Besylate 5 Mg Tab) 5 mg PO QAM [facility] Stop: 10/01/20 08:59 Last Admin: 09/05/20 08:22 Dose: 5 mg Documented by: Aspirin (Aspirin 81 Mg Ectab) 81 mg PO QAM [facility] Stop: 10/01/20 08:59 Last Admin: 09/05/20 08:21 Dose: 81 mg Documented by: Atorvastatin Calcium (Atorvastatin 40 Mg Tab) 80 mg PO HS [facility] Stop: 10/01/20 20:59 Last Admin: 09/04/20 20:41 Dose: 80 mg Documented by: Clonazepam (Clonazepam 1 Mg Tab) 2 mg PO BID [facility] Stop: 09/30/20 21:44 Last Admin: 09/05/20 08:25 Dose: 2 mg Documented by: Cyclobenzaprine HCl (Cyclobenzaprine Hcl 5 Mg Tab) 5 mg PO TID PRN PRN Reason: muscle spasm Stop: 10/02/20 20:59 Last Admin: 09/03/20 07:10 Dose: 5 mg Documented by: Darunavir (Darunavir Ethanolate 600 Mg Tab) 600 mg PO BIDM [facility] Stop: 09/30/20 21:39 Last Admin: 09/05/20 08:23 Dose: 600 mg Documented by: Duloxetine HCl (Duloxetine Hcl 60 Mg Cap) 60 mg PO QAM [facility] Stop: 10/01/20 08:59 Last Admin: 09/05/20 08:22 Dose: 60 mg Documented by: Enoxaparin Sodium (Enoxaparin Inj 40 Mg/0.4 Ml Syr) 40 mg SQ QAM [facility] Stop: 10/01/20 08:59 Last Admin: 09/05/20 08:23 Dose: 40 mg Documented by: Fluticasone Propionate (Fluticasone Propionate Na Spr 16 Gm Btl) 2 sprays FLAVIA QAM PRN PRN Reason: Allergy Symptoms Stop: 10/02/20 17:43 Fluticasone/Vilanterol (Fluticasone/Vilanterol 100/25mcg 14 Puffs/Inhaler) 1 puffs INH DAILY [facility] Stop: 10/01/20 08:59 Last Admin: 09/05/20 08:25 Dose: 1 puffs Documented by: Folic Acid (Folic Acid 1 Mg Tab) 1 mg PO QAM [facility] Stop: 10/03/20 08:59 Last Admin: 09/05/20 08:43 Dose: Not Given Documented by: Furosemide (Furosemide 20 Mg Tab) 20 mg PO QAM PRN PRN Reason: Swelling Stop: 09/30/20 21:33 Last Admin: 09/01/20 09:41 Dose: 20 mg Documented by: Gabapentin (Gabapentin 800 Mg Tab) 800 mg PO TID [facility] Stop: 09/30/20 21:39 Last Admin: 09/05/20 08:21 Dose: 800 mg Documented by: Haloperidol Lactate (Haloperidol Lactate 5 Mg/Ml 1 Ml Vial) 5 mg IM Q8 PRN PRN Reason: Agitation Stop: 10/01/20 17:08 Lorazepam (Ativan) 1 mg in 2 mls @ 2 mls/min IV UD PRN; Protocol PRN Reason: EtOH Withdrawl AWSS Score 6,7 Stop: 10/01/20 17:19 Lorazepam (Ativan) 2 mg in 4 mls @ 4 mls/min IV UD PRN; Protocol PRN Reason: EtOH Withdrawl AWSS Score 8,9 Stop: 10/01/20 17:19 Lorazepam (Ativan) 3 mg in 6 mls @ 4 mls/min IV ONCE PRN; Protocol PRN Reason: EtOH Withdrawl AWSS Score >=10 Stop: 10/01/20 17:19 Levetiracetam (Levetiracetam 500 Mg Tab) 1,500 mg PO BID [facility] Stop: 09/30/20 21:44 Last Admin: 09/05/20 08:21 Dose: 1,500 mg Documented by: Lorazepam (Lorazepam 1 Mg Tab) 1 mg PO BID PRN PRN Reason: Anxiety Stop: 09/30/20 22:01 Last Admin: 08/31/20 22:31 Dose: 1 mg Documented by: Magnesium Hydroxide (Magnesium Hydroxide Susp 30 Ml Udc) 30 ml PO Q12H PRN PRN Reason: Constipation Stop: 09/30/20 19:27 Metoprolol Succinate (Metoprolol Succ 50mg Ext Rel Tab) 50 mg PO QAM [facility] Stop: 10/01/20 08:59 Last Admin: 09/05/20 08:22 Dose: 50 mg Documented by: Miscellaneous (Remove Nicoderm Patch) 1 ea N/A DAILY@0859 [facility] Stop: 10/04/20 08:58 Last Admin: 09/05/20 08:26 Dose: 1 ea Documented by: Nicotine (Nicotine 21 Mg/24 Hr Tdsy) 21 mg TD QAM [facility] Stop: 10/03/20 16:29 Last Admin: 09/05/20 08:23 Dose: 21 mg Documented by: Nitroglycerin (Nitroglycerin Sl 0.4 Mg/Tab Tab) 0.4 mg SL UD PRN PRN Reason: Chest Pain Stop: 09/30/20 19:27 Last Admin: 09/02/20 15:06 Dose: 0.4 mg Documented by: Ondansetron HCl (Ondansetron 4 Mg Od Tab) 4 mg PO Q8H PRN PRN Reason: Nausea Stop: 09/30/20 22:01 Oxycodone HCl (Oxycodone Hcl Ir 5 Mg Tab (Immediate Release)) 5 mg PO Q6 PRN PRN Reason: Pain Stop: 09/17/20 07:40 Last Admin: 09/05/20 08:26 Dose: 5 mg Documented by: Pantoprazole Sodium (Pantoprazole 40 Mg Tab) 40 mg PO QAM [facility] Stop: 10/01/20 08:59 Last Admin: 09/05/20 08:21 Dose: 40 mg Documented by: Polyethylene Glycol (Polyethylene (Miralax) 17 Gm Pack) 17 gm PO DAILY PRN PRN Reason: Constipation Stop: 09/30/20 19:27 Raltegravir (Raltegravir Potassium 400 Mg Tab) 400 mg PO BID [facility] Stop: 09/30/20 21:44 Last Admin: 09/05/20 08:21 Dose: 400 mg Documented by: Ritonavir (Ritonavir 100 Mg Tab) 100 mg PO BID [facility] Stop: 09/30/20 21:44 Last Admin: 09/05/20 08:22 Dose: 100 mg Documented by: Saccharomyces Boulardii (Saccharomyces Boulardii 250 Mg Cap) 250 mg PO BID [facility] Stop: 09/30/20 21:44 Last Admin: 09/05/20 08:21 Dose: 250 mg Documented by: Thiamine HCl (Thiamine Hcl 100 Mg Tab) 100 mg PO QAM [facility] Stop: 09/30/20 20:43 Last Admin: 09/05/20 08:22 Dose: 100 mg Documented by: (1) Chest pain Chest pain type: unspecified Qualified Code(s): R07.9 - Chest pain, unspecified (2) Hypertension Hypertension type: essential hypertension Qualified Code(s): I10 - Essential (primary) hypertension
[2020-09-05 14:08] LABS: HIV 1 RNA PCR Copies/ML 72 copies/mL (NOT DETECTED); HIV-1 RNA Log Copies/mL 1.86 (NOT DETECTED); LSP % Cells Analyzed CD4 18 % (30-61); LSP % of Cells Analyzed CD8 48 % (12-42); LSP Absolute Count CD8 414 cells/uL (180-1170); LSP Absolute Ct CD4 154 cells/uL (490-1740); LSP CD4/CD8 Ratio 0.37 (0.86-5.00); LSP Lymphocytes Absolute 863 cells/uL (850-3900); Lymphocyte Subset Pan Comment DNR
[2020-09-05] MEDS: ATORVASTATIN 40 MG TAB PO SCH (20:59)
[2020-09-05] MEDS ORDERED: MIRTAZAPINE TAB 15 MG TAB PO ONE (21:00)
[2020-09-06] MEDS: FLUTICASONE/VILANTEROL 100/25MCG 14 PUFFS/INHALER INH SCH (08:03)
[2020-09-06] MEDS: SACCHAROMYCES BOULARDII 250 MG CAP PO SCH ×2 (08:03→21:25)
[2020-09-06] MEDS: ASPIRIN 81 MG ECTAB PO SCH (08:03)
[2020-09-06] MEDS: DULoxetine HCL 60 MG CAP PO SCH (08:03)
[2020-09-06] MEDS: RALTEGRAVIR POTASSIUM 400 MG TAB PO SCH ×2 (08:03→21:26)
[2020-09-06] MEDS: levETIRAcetam 500 MG TAB PO SCH ×2 (08:03→21:27)
[2020-09-06] MEDS: FOLIC ACID 1 MG TAB PO SCH (08:03)
[2020-09-06] MEDS: DARUNAVIR ETHANOLATE 600 MG TAB PO SCH ×2 (08:03→16:57)
[2020-09-06] MEDS: PANTOprazole 40 MG TAB PO SCH (08:04)
[2020-09-06] MEDS: clonazePAM 1 MG TAB PO SCH ×3 (08:04→21:24)
[2020-09-06] MEDS: RITONAVIR 100 MG TAB PO SCH ×2 (08:04→21:25)
[2020-09-06] MEDS: NICOTINE 21 MG/24 HR TDSY TD SCH (08:04)
[2020-09-06] MEDS: THIAMINE HCL 100 MG TAB PO SCH (08:04)
[2020-09-06] MEDS: GABAPENTIN 800 MG TAB PO SCH ×3 (08:04→21:26)
[2020-09-06] MEDS: METOPROLOL SUCC 50MG EXT REL TAB PO SCH (08:04)
[2020-09-06] MEDS: ENOXAPARIN INJ 40 MG/0.4 ML SYR SQ SCH (08:04)
[2020-09-06] MEDS: oxyCODONE HCL IR 5 MG TAB (IMMEDIATE RELEASE) PO PRN ×2 (08:04→21:24)
[2020-09-06] MEDS: ATORVASTATIN 40 MG TAB PO SCH (21:25)
[2020-09-06] MEDS: MIRTAZAPINE TAB 15 MG TAB PO SCH (21:27)
--- NOTE | 2020-09-06 21:55 | Hospitalist Progress Note ---
Date of Service September 06, 2020 Assessment & Plan (1) Neuropathic pain of both feet: chronic, severe 2/2 HIV medications. Cont home medications including Neurontin, duloxetine and Oxycodone. (2) Alcohol abuse: h/o heavy alcohol use without signs or symptoms of withdrwawal this admission. Patient is on a large standing dose of benzodiazepines, however. Narcotics and benzos had to be held for a time 2/2 oversedation and patient has a h/o drug abuse in the past. Avoid escalation of pain medications as a caution. (3) Seizure disorder: Reports some noncompliance with home AEDs. Continues on Keppra. Recommend outpatient Neurology follow-up after discharge. (4) History of pulmonary embolism: h/o pulmonary embolism with warfarin on his medication list on arrival to the hospital. He reported noncompliance and INR was reflective of this at 1.0. Chest CTA revealed no PE, Lower extremity doppler revealed no DVT. No further need for coumadin at this time. Also, patient is a high risk for fall with bleeding complication adding to the risk of continuing this medication. (5) HIV positive: Cont darunivir, raltegravir, and ritonavir per home regimen. pt is supposed to follow up with Fawn GROSSMAN Patient has not seen infectious disease for a long period of time Previous provider d/w Fa[facility] GROSSMAN this admission, no change in medications recommended Will need appointment scheduled with Fawn GROSSMAN after discharge from rehab (6) Chronic pain syndrome: Cont chronic narcotics as above with caution for any oversedation. (7) Tobacco abuse: reportedly smokers 4 ppd cigarettes. Advised him to quit. nicotine patch. (8) Anxiety: Psych recommends reducing clonazepam dose to 1mg PO TID and adding mirtazipine qHS. He is tolerating this change without issue. (9) Hypertension: BP is low normal, likely related to heavy doses of pain medications. Hold amlodipine at this time. (10) COPD (chronic obstructive pulmonary disease): stable, no evidence of exacerbation at this time. (11) Chest pain: initially present on admission. Underwent CT chest for PE which was negative. EKG nonischemic, initial troponin negative. This has resolved. (12) Physical deconditioning: Cont PT/OT; rehab planned at SNF (13) Ambulatory dysfunction: Cont PT/OT; rehab planned at SNF (14) DVT prophylaxis: Lovenox Full Code Disposition: awaiting acceptance of SNF/ins auth [facility] Admission and Anticipated Discharge Date Admission Date: September 01, 2020 Subjective 55 yo M with severe chronic pain and neuropathy of his feet -reporting persistent neuropathic pain in feet -no changes in status overnight, awaiting insurance authorization -tolerating PO Review of Systems Review of Systems: All systems reviewed & are unremarkable except as noted in Subjective Physical Exam Physical Exam: CONSTITUTIONAL: WNWD, vitals as above, generally well- appearing, eating some food EYES: normal conjunctivae, no scleral icterus ENT: external ear and nose normal, oropharynx clear, MMM RESPIRATORY: clear to auscultation bilaterally, no crackles, rales or wheezes, normal respiratory effort CARDIOVASCULAR: regular rate and rhythm, S1 and 2 heard without murmurs, gallops or rubs, no JVD, no peripheral edema CHEST: inspection of chest was normal GASTROINTESTINAL: soft, nontender, nondistended, no guarding MUSCULOSKELETAL: generalized weakness, notably cannot move LUE well and wrist remains in a flexed position, head is normocephalic and atraumatic SKIN: warm and dry NEUROLOGIC: CN 2-12 grossly intact, bilateral feet with pain to touch which were not palpated 2/2 patient's level of discomfort with this, normal cognition, normal speech, no tremor PSYCHIATRIC: alert cooperative and answering questions appropriately. Results & Data Results & Data ([facility]) Vital Signs (Past 12 Hours) Vital Signs Temp Pulse Resp BP Pulse Ox 09/06/20 16:24 36.6 C 65 20 113/76 96 Medications Administered Current Inpatient Medications Acetaminophen (Acetaminophen 325 Mg Tab) 650 mg PO Q4H PRN PRN Reason: Pain or Fever Stop: 09/30/20 19:27 Last Admin: 09/02/20 09:11 Dose: 650 mg Documented by: Al Hydrox/Mg Hydrox/Simethicone (Aluminum/Magnesium Susp 30 Ml Udc) 15 ml PO Q4H PRN PRN Reason: Dyspepsia Stop: 09/30/20 19:27 Last Admin: 09/06/20 14:24 Dose: 15 ml Documented by: Albuterol (Albut/Ipratrop 3mg/0.5mg Neb 3 Ml Vial) 3 ml INH Q4H PRN PRN Reason: Shortness Of Breath Or Wheezing Stop: 10/02/20 17:43 Amlodipine Besylate (Amlodipine Besylate 5 Mg Tab) 5 mg PO QAM [facility] Stop: 10/01/20 08:59 Last Admin: 09/05/20 08:22 Dose: 5 mg Documented by: Aspirin (Aspirin 81 Mg Ectab) 81 mg PO QAM [facility] Stop: 10/01/20 08:59 Last Admin: 09/06/20 08:03 Dose: 81 mg Documented by: Atorvastatin Calcium (Atorvastatin 40 Mg Tab) 80 mg PO HS [facility] Stop: 10/01/20 20:59 Last Admin: 09/06/20 21:25 Dose: 80 mg Documented by: Clonazepam (Clonazepam 1 Mg Tab) 1 mg PO TID [facility] Stop: 10/05/20 20:59 Last Admin: 09/06/20 21:24 Dose: 1 mg Documented by: Darunavir (Darunavir Ethanolate 600 Mg Tab) 600 mg PO BIDM [facility] Stop: 09/30/20 21:39 Last Admin: 09/06/20 16:57 Dose: 600 mg Documented by: Duloxetine HCl (Duloxetine Hcl 60 Mg Cap) 60 mg PO QAM [facility] Stop: 10/01/20 08:59 Last Admin: 09/06/20 08:03 Dose: 60 mg Documented by: Enoxaparin Sodium (Enoxaparin Inj 40 Mg/0.4 Ml Syr) 40 mg SQ QAM [facility] Stop: 10/01/20 08:59 Last Admin: 09/06/20 08:04 Dose: 40 mg Documented by: Fluticasone Propionate (Fluticasone Propionate Na Spr 16 Gm Btl) 2 sprays [facility] QAM PRN PRN Reason: Allergy Symptoms Stop: 10/02/20 17:43 Fluticasone/Vilanterol (Fluticasone/Vilanterol 100/25mcg 14 Puffs/Inhaler) 1 puffs INH DAILY [facility] Stop: 10/01/20 08:59 Last Admin: 09/06/20 08:03 Dose: 1 puffs Documented by: Folic Acid (Folic Acid 1 Mg Tab) 1 mg PO QAM [facility] Stop: 10/03/20 08:59 Last Admin: 09/06/20 08:03 Dose: 1 mg Documented by: Furosemide (Furosemide 20 Mg Tab) 20 mg PO QAM PRN PRN Reason: Swelling Stop: 09/30/20 21:33 Last Admin: 09/01/20 09:41 Dose: 20 mg Documented by: Gabapentin (Gabapentin 800 Mg Tab) 800 mg PO TID [facility] Stop: 09/30/20 21:39 Last Admin: 09/06/20 21:26 Dose: 800 mg Documented by: Lorazepam (Ativan) 1 mg in 2 mls @ 2 mls/min IV UD PRN; Protocol PRN Reason: EtOH Withdrawl AWSS Score 6,7 Stop: 10/01/20 17:19 Lorazepam (Ativan) 2 mg in 4 mls @ 4 mls/min IV UD PRN; Protocol PRN Reason: EtOH Withdrawl AWSS Score 8,9 Stop: 10/01/20 17:19 Lorazepam (Ativan) 3 mg in 6 mls @ 4 mls/min IV ONCE PRN; Protocol PRN Reason: EtOH Withdrawl AWSS Score >=10 Stop: 10/01/20 17:19 Levetiracetam (Levetiracetam 500 Mg Tab) 1,500 mg PO BID [facility] Stop: 09/30/20 21:44 Last Admin: 09/06/20 21:27 Dose: 1,500 mg Documented by: Lorazepam (Lorazepam 1 Mg Tab) 1 mg PO BID PRN PRN Reason: Anxiety Stop: 09/30/20 22:01 Last Admin: 08/31/20 22:31 Dose: 1 mg Documented by: Magnesium Hydroxide (Magnesium Hydroxide Susp 30 Ml Udc) 30 ml PO Q12H PRN PRN Reason: Constipation Stop: 09/30/20 19:27 Metoprolol Succinate (Metoprolol Succ 50mg Ext Rel Tab) 50 mg PO QAM [facility] Stop: 10/01/20 08:59 Last Admin: 09/06/20 08:04 Dose: 50 mg Documented by: Mirtazapine (Mirtazapine Tab 15 Mg Tab) 15 mg PO HS [facility] Stop: 10/06/20 20:59 Last Admin: 09/06/20 21:27 Dose: 15 mg Documented by: Miscellaneous (Remove Nicoderm Patch) 1 ea N/A DAILY@0859 [facility] Stop: 10/04/20 08:58 Last Admin: 09/06/20 08:03 Dose: 1 ea Documented by: Nicotine (Nicotine 21 Mg/24 Hr Tdsy) 21 mg TD QAM [facility] Stop: 10/03/20 16:29 Last Admin: 09/06/20 08:04 Dose: 21 mg Documented by: Nitroglycerin (Nitroglycerin Sl 0.4 Mg/Tab Tab) 0.4 mg SL UD PRN PRN Reason: Chest Pain Stop: 09/30/20 19:27 Last Admin: 09/02/20 15:06 Dose: 0.4 mg Documented by: Ondansetron HCl (Ondansetron 4 Mg Od Tab) 4 mg PO Q8H PRN PRN Reason: Nausea Stop: 09/30/20 22:01 Oxycodone HCl (Oxycodone Hcl Ir 5 Mg Tab (Immediate Release)) 5 mg PO Q6 PRN PRN Reason: Pain Stop: 09/17/20 07:40 Last Admin: 09/06/20 21:24 Dose: 5 mg Documented by: Pantoprazole Sodium (Pantoprazole 40 Mg Tab) 40 mg PO QAM [facility] Stop: 10/01/20 08:59 Last Admin: 09/06/20 08:04 Dose: 40 mg Documented by: Polyethylene Glycol (Polyethylene (Miralax) 17 Gm Pack) 17 gm PO DAILY PRN PRN Reason: Constipation Stop: 09/30/20 19:27 Raltegravir (Raltegravir Potassium 400 Mg Tab) 400 mg PO BID [facility] Stop: 09/30/20 21:44 Last Admin: 09/06/20 21:26 Dose: 400 mg Documented by: Ritonavir (Ritonavir 100 Mg Tab) 100 mg PO BID [facility] Stop: 09/30/20 21:44 Last Admin: 09/06/20 21:25 Dose: 100 mg Documented by: Saccharomyces Boulardii (Saccharomyces Boulardii 250 Mg Cap) 250 mg PO BID [facility] Stop: 09/30/20 21:44 Last Admin: 09/06/20 21:25 Dose: 250 mg Documented by: Thiamine HCl (Thiamine Hcl 100 Mg Tab) 100 mg PO QAM [facility] Stop: 09/30/20 20:43 Last Admin: 09/06/20 08:04 Dose: 100 mg Documented by: (1) Chest pain Chest pain type: unspecified Qualified Code(s): R07.9 - Chest pain, unspecified (2) Hypertension Hypertension type: essential hypertension Qualified Code(s): I10 - Essential (primary) hypertension
[2020-09-07] MEDS: SACCHAROMYCES BOULARDII 250 MG CAP PO SCH ×2 (08:22→20:38)
[2020-09-07] MEDS: FLUTICASONE/VILANTEROL 100/25MCG 14 PUFFS/INHALER INH SCH (08:22)
[2020-09-07] MEDS: clonazePAM 1 MG TAB PO SCH ×3 (08:22→20:38)
[2020-09-07] MEDS: DARUNAVIR ETHANOLATE 600 MG TAB PO SCH ×2 (08:22→16:37)
[2020-09-07] MEDS: FOLIC ACID 1 MG TAB PO SCH (08:22)
[2020-09-07] MEDS: DULoxetine HCL 60 MG CAP PO SCH (08:22)
[2020-09-07] MEDS: PANTOprazole 40 MG TAB PO SCH (08:22)
[2020-09-07] MEDS: GABAPENTIN 800 MG TAB PO SCH ×3 (08:22→20:40)
[2020-09-07] MEDS: METOPROLOL SUCC 50MG EXT REL TAB PO SCH (08:22)
[2020-09-07] MEDS: levETIRAcetam 500 MG TAB PO SCH ×2 (08:22→20:39)
[2020-09-07] MEDS: NICOTINE 21 MG/24 HR TDSY TD SCH (08:22)
[2020-09-07] MEDS: ENOXAPARIN INJ 40 MG/0.4 ML SYR SQ SCH (08:22)
[2020-09-07] MEDS: ASPIRIN 81 MG ECTAB PO SCH (08:22)
[2020-09-07] MEDS: RITONAVIR 100 MG TAB PO SCH ×2 (08:22→20:39)
[2020-09-07] MEDS: RALTEGRAVIR POTASSIUM 400 MG TAB PO SCH ×2 (08:22→20:39)
[2020-09-07] MEDS: THIAMINE HCL 100 MG TAB PO SCH (08:23)
[2020-09-07] MEDS: oxyCODONE HCL IR 5 MG TAB (IMMEDIATE RELEASE) PO PRN (12:23)
--- NOTE | 2020-09-07 15:10 | Hospitalist Progress Note ---
Date of Service September 07, 2020 Assessment & Plan (1) Neuropathic pain of both feet: chronic, severe 2/2 HIV medications. Cont home medications including Neurontin, duloxetine and Oxycodone. (2) Alcohol abuse: h/o heavy alcohol use without signs or symptoms of withdrwawal this admission. Patient is on a large standing dose of benzodiazepines, however. Narcotics and benzos had to be held for a time 2/2 oversedation and patient has a h/o drug abuse in the past. Avoid escalation of pain medications as a caution. (3) Seizure disorder: Reports some noncompliance with home AEDs. Continues on Keppra. Recommend outpatient Neurology follow-up after discharge. (4) History of pulmonary embolism: h/o pulmonary embolism with warfarin on his medication list on arrival to the hospital. He reported noncompliance and INR was reflective of this at 1.0. Chest CTA revealed no PE, Lower extremity doppler revealed no DVT. No further need for coumadin at this time. Also, patient is a high risk for fall with bleeding complication adding to the risk of continuing this medication. (5) HIV positive: Cont darunivir, raltegravir, and ritonavir per home regimen. pt is supposed to follow up with Fawn GROSSMAN Patient has not seen infectious disease for a long period of time Previous provider d/w Fawn GROSSMAN this admission, no change in medications recommended Will need appointment scheduled with Fawn GROSSMAN after discharge from rehab (6) Chronic pain syndrome: Cont chronic narcotics as above with caution for any oversedation. (7) Tobacco abuse: reportedly smokers 4 ppd cigarettes. Advised him to quit. nicotine patch. (8) Anxiety: Psych recommends reducing clonazepam dose to 1mg PO TID and adding mirtazipine qHS. He is tolerating this change without issue. (9) Hypertension: BP is low normal, likely related to heavy doses of pain medications. Hold amlodipine at this time. (10) COPD (chronic obstructive pulmonary disease): stable, no evidence of exacerbation at this time. (11) Chest pain: initially present on admission. Underwent CT chest for PE which was negative. EKG nonischemic, initial troponin negative. This has resolved. (12) Physical deconditioning: Cont PT/OT; rehab planned at SNF (13) Ambulatory dysfunction: Cont PT/OT; rehab planned at SNF (14) DVT prophylaxis: Lovenox Full Code Disposition: awaiting acceptance of SNF[facility] Admission and Anticipated Discharge Date Admission Date: September 01, 2020 Subjective 55 yo M with severe chronic pain and neuropathy of his feet -reporting persistent neuropathic pain in feet -no changes in status overnight, awaiting insurance authorization -tolerating PO Review of Systems Review of Systems: All systems reviewed & are unremarkable except as noted in Subjective Physical Exam Physical Exam: CONSTITUTIONAL: WNWD, vitals as above,he appears overmedicated EYES: normal conjunctivae, no scleral icterus ENT: external ear and nose normal, oropharynx clear, MMM RESPIRATORY: clear to auscultation bilaterally, no crackles, rales or wheezes, normal respiratory effort CARDIOVASCULAR: regular rate and rhythm, S1 and 2 heard without murmurs, gallops or rubs, no JVD, no peripheral edema CHEST: inspection of chest was normal GASTROINTESTINAL: soft, nontender, nondistended, no guarding MUSCULOSKELETAL: generalized weakness, notably cannot move LUE well and wrist remains in a flexed position, head is normocephalic and atraumatic SKIN: warm and dry NEUROLOGIC: CN 2-12 grossly intact, bilateral feet with pain to touch which were not palpated 2/2 patient's level of discomfort with this, normal cognition, normal speech, no tremor PSYCHIATRIC: alert cooperative and answering questions appropriately. Results & Data Results & Data ([facility]) Vital Signs (Past 12 Hours) Vital Signs Temp Pulse Resp BP Pulse Ox 09/07/20 08:09 36.4 C L 82 18 126/83 100 Medications Administered Current Inpatient Medications Acetaminophen (Acetaminophen 325 Mg Tab) 650 mg PO Q4H PRN PRN Reason: Pain or Fever Stop: 09/30/20 19:27 Last Admin: 09/02/20 09:11 Dose: 650 mg Documented by: Al Hydrox/Mg Hydrox/Simethicone (Aluminum/Magnesium Susp 30 Ml Udc) 15 ml PO Q4H PRN PRN Reason: Dyspepsia Stop: 09/30/20 19:27 Last Admin: 09/06/20 14:24 Dose: 15 ml Documented by: Albuterol (Albut/Ipratrop 3mg/0.5mg Neb 3 Ml Vial) 3 ml INH Q4H PRN PRN Reason: Shortness Of Breath Or Wheezing Stop: 10/02/20 17:43 Amlodipine Besylate (Amlodipine Besylate 5 Mg Tab) 5 mg PO QAM [facility] Stop: 10/01/20 08:59 Last Admin: 09/05/20 08:22 Dose: 5 mg Documented by: Aspirin (Aspirin 81 Mg Ectab) 81 mg PO QAM [facility] Stop: 10/01/20 08:59 Last Admin: 09/07/20 08:22 Dose: 81 mg Documented by: Atorvastatin Calcium (Atorvastatin 40 Mg Tab) 80 mg PO HS [facility] Stop: 10/01/20 20:59 Last Admin: 09/06/20 21:25 Dose: 80 mg Documented by: Clonazepam (Clonazepam 1 Mg Tab) 1 mg PO TID [facility] Stop: 10/05/20 20:59 Last Admin: 09/07/20 14:06 Dose: 1 mg Documented by: Darunavir (Darunavir Ethanolate 600 Mg Tab) 600 mg PO BIDM [facility] Stop: 09/30/20 21:39 Last Admin: 09/07/20 08:22 Dose: 600 mg Documented by: Duloxetine HCl (Duloxetine Hcl 60 Mg Cap) 60 mg PO QAM [facility] Stop: 10/01/20 08:59 Last Admin: 09/07/20 08:22 Dose: 60 mg Documented by: Enoxaparin Sodium (Enoxaparin Inj 40 Mg/0.4 Ml Syr) 40 mg SQ QAM [facility] Stop: 10/01/20 08:59 Last Admin: 09/07/20 08:22 Dose: 40 mg Documented by: Fluticasone Propionate (Fluticasone Propionate Na Spr 16 Gm Btl) 2 sprays FLAVIA QAM PRN PRN Reason: Allergy Symptoms Stop: 10/02/20 17:43 Fluticasone/Vilanterol (Fluticasone/Vilanterol 100/25mcg 14 Puffs/Inhaler) 1 puffs INH DAILY [facility] Stop: 10/01/20 08:59 Last Admin: 09/07/20 08:22 Dose: 1 puffs Documented by: Folic Acid (Folic Acid 1 Mg Tab) 1 mg PO QAM [facility] Stop: 10/03/20 08:59 Last Admin: 09/07/20 08:22 Dose: 1 mg Documented by: Furosemide (Furosemide 20 Mg Tab) 20 mg PO QAM PRN PRN Reason: Swelling Stop: 09/30/20 21:33 Last Admin: 09/01/20 09:41 Dose: 20 mg Documented by: Gabapentin (Gabapentin 800 Mg Tab) 800 mg PO TID [facility] Stop: 09/30/20 21:39 Last Admin: 09/07/20 14:06 Dose: 800 mg Documented by: Lorazepam (Ativan) 1 mg in 2 mls @ 2 mls/min IV UD PRN; Protocol PRN Reason: EtOH Withdrawl AWSS Score 6,7 Stop: 10/01/20 17:19 Lorazepam (Ativan) 2 mg in 4 mls @ 4 mls/min IV UD PRN; Protocol PRN Reason: EtOH Withdrawl AWSS Score 8,9 Stop: 10/01/20 17:19 Lorazepam (Ativan) 3 mg in 6 mls @ 4 mls/min IV ONCE PRN; Protocol PRN Reason: EtOH Withdrawl AWSS Score >=10 Stop: 10/01/20 17:19 Levetiracetam (Levetiracetam 500 Mg Tab) 1,500 mg PO BID [facility] Stop: 09/30/20 21:44 Last Admin: 09/07/20 08:22 Dose: 1,500 mg Documented by: Lorazepam (Lorazepam 1 Mg Tab) 1 mg PO BID PRN PRN Reason: Anxiety Stop: 09/30/20 22:01 Last Admin: 08/31/20 22:31 Dose: 1 mg Documented by: Magnesium Hydroxide (Magnesium Hydroxide Susp 30 Ml Udc) 30 ml PO Q12H PRN PRN Reason: Constipation Stop: 09/30/20 19:27 Metoprolol Succinate (Metoprolol Succ 50mg Ext Rel Tab) 50 mg PO QAM [facility] Stop: 10/01/20 08:59 Last Admin: 09/07/20 08:22 Dose: 50 mg Documented by: Mirtazapine (Mirtazapine Tab 15 Mg Tab) 15 mg PO HS [facility] Stop: 10/06/20 20:59 Last Admin: 09/06/20 21:27 Dose: 15 mg Documented by: Miscellaneous (Remove Nicoderm Patch) 1 ea N/A DAILY@0859 [facility] Stop: 10/04/20 08:58 Last Admin: 09/07/20 08:22 Dose: 1 ea Documented by: Nicotine (Nicotine 21 Mg/24 Hr Tdsy) 21 mg TD QAM [facility] Stop: 10/03/20 16:29 Last Admin: 09/07/20 08:22 Dose: 21 mg Documented by: Nitroglycerin (Nitroglycerin Sl 0.4 Mg/Tab Tab) 0.4 mg SL UD PRN PRN Reason: Chest Pain Stop: 09/30/20 19:27 Last Admin: 09/02/20 15:06 Dose: 0.4 mg Documented by: Ondansetron HCl (Ondansetron 4 Mg Od Tab) 4 mg PO Q8H PRN PRN Reason: Nausea Stop: 09/30/20 22:01 Oxycodone HCl (Oxycodone Hcl Ir 5 Mg Tab (Immediate Release)) 5 mg PO Q6 PRN PRN Reason: Pain Stop: 09/17/20 07:40 Last Admin: 09/07/20 12:23 Dose: 5 mg Documented by: Pantoprazole Sodium (Pantoprazole 40 Mg Tab) 40 mg PO QAM [facility] Stop: 10/01/20 08:59 Last Admin: 09/07/20 08:22 Dose: 40 mg Documented by: Polyethylene Glycol (Polyethylene (Miralax) 17 Gm Pack) 17 gm PO DAILY PRN PRN Reason: Constipation Stop: 09/30/20 19:27 Raltegravir (Raltegravir Potassium 400 Mg Tab) 400 mg PO BID [facility] Stop: 09/30/20 21:44 Last Admin: 09/07/20 08:22 Dose: 400 mg Documented by: Ritonavir (Ritonavir 100 Mg Tab) 100 mg PO BID [facility] Stop: 09/30/20 21:44 Last Admin: 09/07/20 08:22 Dose: 100 mg Documented by: Saccharomyces Boulardii (Saccharomyces Boulardii 250 Mg Cap) 250 mg PO BID [facility] Stop: 09/30/20 21:44 Last Admin: 09/07/20 08:22 Dose: 250 mg Documented by: Thiamine HCl (Thiamine Hcl 100 Mg Tab) 100 mg PO QAM [facility] Stop: 09/30/20 20:43 Last Admin: 09/07/20 08:23 Dose: 100 mg Documented by: (1) Chest pain Chest pain type: unspecified Qualified Code(s): R07.9 - Chest pain, unspecified (2) Hypertension Hypertension type: essential hypertension Qualified Code(s): I10 - Essential (primary) hypertension
[2020-09-07] MEDS: LORazepam 1 MG TAB PO PRN (16:35)
[2020-09-07] MEDS: ATORVASTATIN 40 MG TAB PO SCH (20:38)
[2020-09-07] MEDS: MIRTAZAPINE TAB 15 MG TAB PO SCH (20:40)
[2020-09-08] MEDS: RALTEGRAVIR POTASSIUM 400 MG TAB PO SCH ×2 (08:03→20:15)
[2020-09-08] MEDS: DULoxetine HCL 60 MG CAP PO SCH (08:03)
[2020-09-08] MEDS: FOLIC ACID 1 MG TAB PO SCH (08:03)
[2020-09-08] MEDS: GABAPENTIN 800 MG TAB PO SCH ×3 (08:03→20:12)
[2020-09-08] MEDS: DARUNAVIR ETHANOLATE 600 MG TAB PO SCH ×2 (08:04→16:19)
[2020-09-08] MEDS: levETIRAcetam 500 MG TAB PO SCH ×2 (08:04→20:15)
[2020-09-08] MEDS: THIAMINE HCL 100 MG TAB PO SCH (08:04)
[2020-09-08] MEDS: PANTOprazole 40 MG TAB PO SCH (08:04)
[2020-09-08] MEDS: SACCHAROMYCES BOULARDII 250 MG CAP PO SCH ×2 (08:04→20:13)
[2020-09-08] MEDS: RITONAVIR 100 MG TAB PO SCH ×2 (08:04→20:14)
[2020-09-08] MEDS: METOPROLOL SUCC 50MG EXT REL TAB PO SCH (08:04)
[2020-09-08] MEDS: ASPIRIN 81 MG ECTAB PO SCH (08:04)
[2020-09-08] MEDS: ENOXAPARIN INJ 40 MG/0.4 ML SYR SQ SCH (08:05)
[2020-09-08] MEDS: FLUTICASONE/VILANTEROL 100/25MCG 14 PUFFS/INHALER INH SCH (08:05)
[2020-09-08] MEDS: NICOTINE 21 MG/24 HR TDSY TD SCH (08:06)
[2020-09-08] MEDS: clonazePAM 1 MG TAB PO SCH ×3 (08:07→20:11)
[2020-09-08] MEDS ORDERED: POLYETHYLENE (MIRALAX) 17 GM PACK PO PRN (12:50)
--- NOTE | 2020-09-08 12:53 | Hospitalist Progress Note ---
Date of Service September 08, 2020 Assessment & Plan (1) Neuropathic pain of both feet: chronic, severe 2/2 HIV medications. Cont home medications including Neurontin, duloxetine and Oxycodone. Would hold on increasing narcotic medication administration as patient has became oversedated and has a high risk of this with high doses and polypharmacy effects. (2) Alcohol abuse: h/o heavy alcohol use without signs or symptoms of withdrwawal this admis darien. Patient is on a large standing dose of benzodiazepines, however. Narcotics and benzos had to be held for a time 2/2 oversedation and patient has a h/o drug abuse in the past. Avoid escalation of pain medications as a caution. (3) Seizure disorder: Reports some noncompliance with home AEDs. Continues on Keppra, which contributes to his somnolence. Recommend outpatient Neurology follow-up after discharge. (4) History of pulmonary embolism: h/o pulmonary embolism with warfarin on his medication list on arrival to the hospital. He reported noncompliance and INR was reflective of this at 1.0. Chest CTA revealed no PE, Lower extremity doppler revealed no DVT. No further need for coumadin at this time. Also, patient is a high risk for fall with bleeding complication adding to the risk of continuing this medication. (5) HIV positive: Cont darunivir, raltegravir, and ritonavir per home regimen. pt is supposed to follow up with Fawn GROSSMAN Patient has not seen infectious disease for a long period of time Previous provider d/w Fawn GROSSMAN this admission, no change in medications recommended Will need appointment scheduled with Fawn GROSSMAN after discharge from rehab (6) Chronic pain syndrome: Cont chronic narcotics as above with caution for any oversedation as above. (7) Tobacco abuse: reportedly smokers 4 ppd cigarettes. Advised him to quit. nicotine patch. (8) Anxiety: Psych recommends reducing clonazepam dose to 1mg PO TID and adding mirtazipine qHS. He is tolerating this change without issue. (9) Hypertension: Controlled, cont holding amlodipine at this time. (10) COPD (chronic obstructive pulmonary disease): stable, no evidence of exacerbation at this time. (11) Chest pain: initially present on admission. Underwent CT chest for PE which was negative. EKG nonischemic, initial troponin negative. This has resolved. (12) Physical deconditioning: Cont PT/OT; rehab planned at SNF (13) Ambulatory dysfunction: Cont PT/OT; rehab planned at SNF (14) DVT prophylaxis: Lovenox Full Code Disposition: awaiting acceptance of SNF/ins DO Fawn Zhang Hospitalist Admission and Anticipated Discharge Date Admission Date: September 01, 2020 Subjective 55 yo M with severe chronic pain and neuropathy of his feet -reporting persistent neuropathic pain in feet -still awaiting insurance authorization -reports severe anxiety overnight -tolerating PO and asking for an unrestricted diet -feels some abdominal tenderness in abdomen-soft, nondistended -reports normal formed BM this morning but OK with laxative as he doesn't feel he is completely emptying Review of Systems Review of Systems: All systems reviewed & are unremarkable except as noted in Subjective Physical Exam Physical Exam: CONSTITUTIONAL: WNWD, vitals as above, he is in NAD with multiple candy wrappers all over his chest. EYES: normal conjunctivae, no scleral icterus ENT: external ear and nose normal, oropharynx clear, MMM RESPIRATORY: clear to auscultation bilaterally, no crackles, rales or wheezes, normal respiratory effort CARDIOVASCULAR: regular rate and rhythm, S1 and 2 heard without murmurs, gallops or rubs, no JVD, no peripheral edema CHEST: inspection of chest was normal GASTROINTESTINAL: soft, nontender, nondistended, no guarding MUSCULOSKELETAL: generalized weakness, notably cannot move LUE well and wrist remains in a flexed position, head is normocephalic and atraumatic SKIN: warm and dry NEUROLOGIC: CN 2-12 grossly intact, bilateral feet with pain to touch which were not palpated 2/2 patient's level of discomfort with this, normal cognition, normal speech, no tremor PSYCHIATRIC: alert cooperative and answering questions appropriately. Results & Data Results & Data ([facility]) Vital Signs (Past 12 Hours) Vital Signs Temp Pulse Resp BP Pulse Ox 09/08/20 07:31 36.5 C 89 16 125/78 99 Medications Administered Current Inpatient Medications Acetaminophen (Acetaminophen 325 Mg Tab) 650 mg PO Q4H PRN PRN Reason: Pain or Fever Stop: 09/30/20 19:27 Last Admin: 09/02/20 09:11 Dose: 650 mg Documented by: Al Hydrox/Mg Hydrox/Simethicone (Aluminum/Magnesium Susp 30 Ml Udc) 15 ml PO Q4H PRN PRN Reason: Dyspepsia Stop: 09/30/20 19:27 Last Admin: 09/06/20 14:24 Dose: 15 ml Documented by: Albuterol (Albut/Ipratrop 3mg/0.5mg Neb 3 Ml Vial) 3 ml INH Q4H PRN PRN Reason: Shortness Of Breath Or Wheezing Stop: 10/02/20 17:43 Amlodipine Besylate (Amlodipine Besylate 5 Mg Tab) 5 mg PO QAM [facility] Stop: 10/01/20 08:59 Last Admin: 09/05/20 08:22 Dose: 5 mg Documented by: Aspirin (Aspirin 81 Mg Ectab) 81 mg PO QAM [facility] Stop: 10/01/20 08:59 Last Admin: 09/08/20 08:04 Dose: 81 mg Documented by: Atorvastatin Calcium (Atorvastatin 40 Mg Tab) 80 mg PO HS [facility] Stop: 10/01/20 20:59 Last Admin: 09/07/20 20:38 Dose: 80 mg Documented by: Clonazepam (Clonazepam 1 Mg Tab) 1 mg PO TID [facility] Stop: 10/05/20 20:59 Last Admin: 09/08/20 08:07 Dose: 1 mg Documented by: Darunavir (Darunavir Ethanolate 600 Mg Tab) 600 mg PO BIDM [facility] Stop: 09/30/20 21:39 Last Admin: 09/08/20 08:04 Dose: 600 mg Documented by: Duloxetine HCl (Duloxetine Hcl 60 Mg Cap) 60 mg PO QAM [facility] Stop: 10/01/20 08:59 Last Admin: 09/08/20 08:03 Dose: 60 mg Documented by: Enoxaparin Sodium (Enoxaparin Inj 40 Mg/0.4 Ml Syr) 40 mg SQ QAM [facility] Stop: 10/01/20 08:59 Last Admin: 09/08/20 08:05 Dose: 40 mg Documented by: Fluticasone Propionate (Fluticasone Propionate Na Spr 16 Gm Btl) 2 sprays F[facility] QAM PRN PRN Reason: Allergy Symptoms Stop: 10/02/20 17:43 Fluticasone/Vilanterol (Fluticasone/Vilanterol 100/25mcg 14 Puffs/Inhaler) 1 puffs INH DAILY [facility] Stop: 10/01/20 08:59 Last Admin: 09/08/20 08:05 Dose: 1 puffs Documented by: Folic Acid (Folic Acid 1 Mg Tab) 1 mg PO QAM [facility] Stop: 10/03/20 08:59 Last Admin: 09/08/20 08:03 Dose: 1 mg Documented by: Furosemide (Furosemide 20 Mg Tab) 20 mg PO QAM PRN PRN Reason: Swelling Stop: 09/30/20 21:33 Last Admin: 09/01/20 09:41 Dose: 20 mg Documented by: Gabapentin (Gabapentin 800 Mg Tab) 800 mg PO TID [facility] Stop: 09/30/20 21:39 Last Admin: 09/08/20 08:03 Dose: 800 mg Documented by: Lorazepam (Ativan) 1 mg in 2 mls @ 2 mls/min IV UD PRN; Protocol PRN Reason: EtOH Withdrawl AWSS Score 6,7 Stop: 10/01/20 17:19 Lorazepam (Ativan) 2 mg in 4 mls @ 4 mls/min IV UD PRN; Protocol PRN Reason: EtOH Withdrawl AWSS Score 8,9 Stop: 10/01/20 17:19 Lorazepam (Ativan) 3 mg in 6 mls @ 4 mls/min IV ONCE PRN; Protocol PRN Reason: EtOH Withdrawl AWSS Score >=10 Stop: 10/01/20 17:19 Levetiracetam (Levetiracetam 500 Mg Tab) 1,500 mg PO BID [facility] Stop: 09/30/20 21:44 Last Admin: 09/08/20 08:04 Dose: 1,500 mg Documented by: Lorazepam (Lorazepam 1 Mg Tab) 1 mg PO BID PRN PRN Reason: Anxiety Stop: 09/30/20 22:01 Last Admin: 09/07/20 16:35 Dose: 1 mg Documented by: Magnesium Hydroxide (Magnesium Hydroxide Susp 30 Ml Udc) 30 ml PO Q12H PRN PRN Reason: Constipation Stop: 09/30/20 19:27 Metoprolol Succinate (Metoprolol Succ 50mg Ext Rel Tab) 50 mg PO QAM [facility] Stop: 10/01/20 08:59 Last Admin: 09/08/20 08:04 Dose: 50 mg Documented by: Mirtazapine (Mirtazapine Tab 15 Mg Tab) 15 mg PO HS [facility] Stop: 10/06/20 20:59 Last Admin: 09/07/20 20:40 Dose: 15 mg Documented by: Miscellaneous (Remove Nicoderm Patch) 1 ea N/A DAILY@0859 [facility] Stop: 10/04/20 08:58 Last Admin: 09/08/20 08:04 Dose: 1 ea Documented by: Nicotine (Nicotine 21 Mg/24 Hr Tdsy) 21 mg TD QAM [facility] Stop: 10/03/20 16:29 Last Admin: 09/08/20 08:06 Dose: 21 mg Documented by: Nitroglycerin (Nitroglycerin Sl 0.4 Mg/Tab Tab) 0.4 mg SL UD PRN PRN Reason: Chest Pain Stop: 09/30/20 19:27 Last Admin: 09/02/20 15:06 Dose: 0.4 mg Documented by: Ondansetron HCl (Ondansetron 4 Mg Od Tab) 4 mg PO Q8H PRN PRN Reason: Nausea Stop: 09/30/20 22:01 Oxycodone HCl (Oxycodone Hcl Ir 5 Mg Tab (Immediate Release)) 5 mg PO Q6 PRN PRN Reason: Pain Stop: 09/17/20 07:40 Last Admin: 09/07/20 12:23 Dose: 5 mg Documented by: Pantoprazole Sodium (Pantoprazole 40 Mg Tab) 40 mg PO QAM [facility] Stop: 10/01/20 08:59 Last Admin: 09/08/20 08:04 Dose: 40 mg Documented by: Polyethylene Glycol (Polyethylene (Miralax) 17 Gm Pack) 17 gm PO DAILY PRN PRN Reason: Constipation Stop: 09/30/20 19:27 Polyethylene Glycol (Polyethylene (Miralax) 17 Gm Pack) 17 gm PO DAILY PRN PRN Reason: Constipation Stop: 10/08/20 12:49 Polyethylene Glycol (Polyethylene (Miralax) 17 Gm Pack) 17 gm PO DAILY [facility] Stop: 09/08/20 12:51 Raltegravir (Raltegravir Potassium 400 Mg Tab) 400 mg PO BID [facility] Stop: 09/30/20 21:44 Last Admin: 09/08/20 08:03 Dose: 400 mg Documented by: Ritonavir (Ritonavir 100 Mg Tab) 100 mg PO BID [facility] Stop: 09/30/20 21:44 Last Admin: 09/08/20 08:04 Dose: 100 mg Documented by: Saccharomyces Boulardii (Saccharomyces Boulardii 250 Mg Cap) 250 mg PO BID [facility] Stop: 09/30/20 21:44 Last Admin: 09/08/20 08:04 Dose: 250 mg Documented by: Thiamine HCl (Thiamine Hcl 100 Mg Tab) 100 mg PO QAM [facility] Stop: 09/30/20 20:43 Last Admin: 09/08/20 08:04 Dose: 100 mg Documented by: (1) Hypertension Hypertension type: essential hypertension Qualified Code(s): I10 - Essential (primary) hypertension (2) Chest pain Chest pain type: unspecified Qualified Code(s): R07.9 - Chest pain, unspecified
[2020-09-08] MEDS ORDERED: POLYETHYLENE (MIRALAX) 17 GM PACK PO ONE (13:00)
[2020-09-08] MEDS: oxyCODONE HCL IR 5 MG TAB (IMMEDIATE RELEASE) PO PRN (16:20)
[2020-09-08] MEDS: LORazepam 1 MG TAB PO PRN (18:03)
[2020-09-08] MEDS: ATORVASTATIN 40 MG TAB PO SCH (20:12)
[2020-09-08] MEDS: MIRTAZAPINE TAB 15 MG TAB PO SCH (20:13)
[2020-09-08] MEDS: hydrOXYzine HCl 10 MG TAB PO PRN (20:30)
[2020-09-09] MEDS: LORazepam 1 MG TAB PO PRN ×2 (07:26→21:25)
[2020-09-09] MEDS: oxyCODONE HCL IR 5 MG TAB (IMMEDIATE RELEASE) PO PRN ×2 (07:26→18:03)
[2020-09-09] MEDS: clonazePAM 1 MG TAB PO SCH ×3 (09:07→20:23)
[2020-09-09] MEDS: DARUNAVIR ETHANOLATE 600 MG TAB PO SCH ×2 (09:08→18:04)
[2020-09-09] MEDS: SACCHAROMYCES BOULARDII 250 MG CAP PO SCH ×2 (09:08→20:26)
[2020-09-09] MEDS: DULoxetine HCL 60 MG CAP PO SCH (09:08)
[2020-09-09] MEDS: levETIRAcetam 500 MG TAB PO SCH ×2 (09:08→20:23)
[2020-09-09] MEDS: ASPIRIN 81 MG ECTAB PO SCH (09:08)
[2020-09-09] MEDS: FOLIC ACID 1 MG TAB PO SCH (09:08)
[2020-09-09] MEDS: PANTOprazole 40 MG TAB PO SCH (09:08)
[2020-09-09] MEDS: THIAMINE HCL 100 MG TAB PO SCH (09:08)
[2020-09-09] MEDS: GABAPENTIN 800 MG TAB PO SCH ×3 (09:08→20:25)
[2020-09-09] MEDS: RALTEGRAVIR POTASSIUM 400 MG TAB PO SCH ×2 (09:09→20:25)
[2020-09-09] MEDS: METOPROLOL SUCC 50MG EXT REL TAB PO SCH (09:09)
[2020-09-09] MEDS: RITONAVIR 100 MG TAB PO SCH ×2 (09:09→20:23)
[2020-09-09] MEDS: NICOTINE 21 MG/24 HR TDSY TD SCH (09:09)
[2020-09-09] MEDS: FLUTICASONE/VILANTEROL 100/25MCG 14 PUFFS/INHALER INH SCH (09:10)
[2020-09-09] MEDS: ENOXAPARIN INJ 40 MG/0.4 ML SYR SQ SCH (09:10)
[2020-09-09] MEDS ORDERED: IBUPROFEN 600 MG TAB PO PRN (17:54)
[2020-09-09] MEDS: hydrOXYzine HCl 10 MG TAB PO PRN (18:04)
--- NOTE | 2020-09-09 18:39 | Hospitalist Progress Note ---
Date of Service September 09, 2020 Assessment & Plan (1) Neuropathic pain of both feet: chronic, severe 2/2 HIV medications. Cont home medications including Neurontin, duloxetine and Oxycodone. Would hold on increasing narcotic medication administration as patient has became oversedated and has a high risk of this with high doses and polypharmacy effects. Discussed Ibuprofen intermittently as a non-narcotic option. He is on aspirin for secondary prophylaxis of stroke so this may interfere if taken continuously. He and his sister both verbalized understanding of this and of the side effects of aspirin and Ibuprofen including GI upset or GI bleed and kidney dysfunction. New orthotics brace was recommended, orthotics was consulted. (2) Alcohol abuse: h/o heavy alcohol use without signs or symptoms of withdrwawal this admission. Patient is on a large standing dose of benzodiazepines, however. Narcotics and benzos had to be held for a time 2/2 oversedation and patient has a h/o drug abuse in the past. Avoid escalation of pain medications as a caution. (3) Seizure disorder: Reports some noncompliance with home AEDs. Continues on Keppra, which contributes to his somnolence. Recommend outpatient Neurology follow-up after discharge. (4) History of pulmonary embolism: h/o pulmonary embolism with warfarin on his medication list on arrival to the hospital. He reported noncompliance and INR was reflective of this at 1.0. Chest CTA revealed no PE, Lower extremity doppler revealed no DVT. No further need for coumadin at this time. Also, patient is a high risk for fall with bleeding complication adding to the risk of continuing this medication. (5) HIV positive: Cont darunivir, raltegravir, and ritonavir per home regimen. pt is supposed to follow up with Fawn GROSSMAN Patient has not seen infectious disease for a long period of time Previous provider d/w Fawn GROSSMAN this admission, no change in medications recommended Will need appointment scheduled with Fawn GROSSMAN after discharge from rehab (6) Chronic pain syndrome: Cont chronic narcotics as above with caution for any oversedation as above. (7) Tobacco abuse: reportedly smokers 4 ppd cigarettes. Advised him to quit. nicotine patch. (8) Anxiety: Psych recommends reducing clonazepam dose to 1mg PO TID and adding mirtazipine qHS. He is tolerating this change without issue. Discussed CBT as an outpatient option with he and his sister today (9) Hypertension: Controlled, cont holding amlodipine at this time. (10) COPD (chronic obstructive pulmonary disease): stable, no evidence of exacerbation at this time. (11) Chest pain: initially present on admission. Underwent CT chest for PE which was negative. EKG nonischemic, initial troponin negative. This has resolved. (12) Physical deconditioning: Cont PT/OT; rehab planned at SNF (13) Ambulatory dysfunction: Cont PT/OT; rehab planned at SNF (14) DVT prophylaxis: Lovenox Full Code Disposition: awaiting acceptance of SNF/ins auth Sherrie Manley DO [facility] Hospitalist Admission and Anticipated Discharge Date Admission Date: September 01, 2020 Subjective 55 yo M with severe chronic pain and neuropathy of his feet -reporting persistent neuropathic pain in feet -still awaiting insurance authorization -still reports anxiety -reports a fall today but per the nurse she caught him and he slid to the floor, no injury occurred -sister present and we reviewed her questions and the treatment plan. Review of Systems Review of Systems: All systems reviewed & are unremarkable except as noted in Subjective Physical Exam Physical Exam: CONSTITUTIONAL: WNWD, vitals as above, he is in NAD sitting on edge of bed independently. EYES: normal conjunctivae, no scleral icterus ENT: external ear and nose normal, oropharynx clear, MMM RESPIRATORY: clear to auscultation bilaterally, no crackles, rales or wheezes, normal respiratory effort CARDIOVASCULAR: regular rate and rhythm, S1 and 2 heard without murmurs, gallops or rubs, no JVD, no peripheral edema CHEST: inspection of chest was normal GASTROINTESTINAL: soft, nontender, nondistended, no guarding MUSCULOSKELETAL: generalized weakness, notably cannot move LUE well and wrist remains in a flexed position, head is normocephalic and atraumatic SKIN: warm and dry NEUROLOGIC: CN 2-12 grossly intact, bilateral feet with pain to touch which were not palpated 2/2 patient's level of discomfort with this, normal cognition, normal speech, no tremor PSYCHIATRIC: alert cooperative and answering questions appropriately. Results & Data Results & Data ([facility]) Vital Signs (Past 12 Hours) Vital Signs Temp Pulse Resp BP BP Pulse Ox 09/09/20 16:21 36.6 C 90 18 133/88 98 09/09/20 07:03 36.7 C 91 H 16 117/85 100 Medications Administered Current Inpatient Medications Acetaminophen (Acetaminophen 325 Mg Tab) 650 mg PO Q4H PRN PRN Reason: Pain or Fever Stop: 09/30/20 19:27 Last Admin: 09/02/20 09:11 Dose: 650 mg Documented by: Al Hydrox/Mg Hydrox/Simethicone (Aluminum/Magnesium Susp 30 Ml Udc) 15 ml PO Q4H PRN PRN Reason: Dyspepsia Stop: 09/30/20 19:27 Last Admin: 09/06/20 14:24 Dose: 15 ml Documented by: Albuterol (Albut/Ipratrop 3mg/0.5mg Neb 3 Ml Vial) 3 ml INH Q4H PRN PRN Reason: Shortness Of Breath Or Wheezing Stop: 10/02/20 17:43 Amlodipine Besylate (Amlodipine Besylate 5 Mg Tab) [facility] [place] Stop: 10/01/20 08:59 Last Admin: 09/05/20 08:22 Dose: 5 mg Documented by: Aspirin (Aspirin 81 Mg Ectab) 81 mg PO QAM [facility] Stop: 10/01/20 08:59 Last Admin: 09/09/20 09:08 Dose: 81 mg Documented by: Atorvastatin Calcium (Atorvastatin 40 Mg Tab) 80 mg PO HS [facility] Stop: 10/01/20 20:59 Last Admin: 09/08/20 20:12 Dose: 80 mg Documented by: Clonazepam (Clonazepam 1 Mg Tab) 1 mg PO TID [facility] Stop: 10/08/20 19:59 Last Admin: 09/09/20 14:28 Dose: 1 mg Documented by: Darunavir (Darunavir Ethanolate 600 Mg Tab) 600 mg PO BIDM [facility] Stop: 09/30/20 21:39 Last Admin: 09/09/20 18:04 Dose: 600 mg Documented by: Duloxetine HCl (Duloxetine Hcl 60 Mg Cap) 60 mg PO QAM [facility] Stop: 10/01/20 08:59 Last Admin: 09/09/20 09:08 Dose: 60 mg Documented by: Enoxaparin Sodium (Enoxaparin Inj 40 Mg/0.4 Ml Syr) 40 [facility] S[facility] [place] Stop: 10/01/20 08:59 Last Admin: 09/09/20 09:10 Dose: 40 mg Documented by: Fluticasone Propionate (Fluticasone Propionate Na Spr 16 Gm Btl) 2 sprays FLAVIA QAM PRN PRN Reason: Allergy Symptoms Stop: 10/02/20 17:43 Fluticasone/Vilanterol (Fluticasone/Vilanterol 100/25mcg 14 Puffs/Inhaler) 1 puffs INH DAILY [facility] Stop: 10/01/20 08:59 Last Admin: 09/09/20 09:10 Dose: 1 puffs Documented by: Folic Acid (Folic Acid 1 Mg Tab) 1 mg PO QAM [facility] Stop: 10/03/20 08:59 Last Admin: 09/09/20 09:08 Dose: 1 mg Documented by: Furosemide (Furosemide 20 Mg Tab) 20 mg PO QAM PRN PRN Reason: Swelling Stop: 09/30/20 21:33 Last Admin: 09/01/20 09:41 Dose: 20 mg Documented by: Gabapentin (Gabapentin 800 Mg Tab) 800 mg PO TID [facility] Stop: 09/30/20 21:39 Last Admin: 09/09/20 14:28 Dose: 800 mg Documented by: Hydroxyzine HCl (Hydroxyzine Hcl 10 Mg Tab) 10 mg PO QID PRN PRN Reason: anxiety Stop: 10/08/20 19:56 Last Admin: 09/09/20 18:04 Dose: 10 mg Documented by: Lorazepam (Ativan) 1 mg in 2 mls @ 2 mls/min IV UD PRN; Protocol PRN Reason: EtOH Withdrawl AWSS Score 6,7 Stop: 10/01/20 17:19 Lorazepam (Ativan) 2 mg in 4 mls @ 4 mls/min IV UD PRN; Protocol PRN Reason: EtOH Withdrawl AWSS Score 8,9 Stop: 10/01/20 17:19 Lorazepam (Ativan) 3 mg in 6 mls @ 4 mls/min IV ONCE PRN; Protocol PRN Reason: EtOH Withdrawl AWSS Score >=10 Stop: 10/01/20 17:19 Ibuprofen (Ibuprofen 600 Mg Tab) 600 mg PO Q8H PRN PRN Reason: pain/fever Stop: 10/09/20 17:53 Levetiracetam (Levetiracetam 500 Mg Tab) 1,500 mg PO BID [facility] Stop: 09/30/20 21:44 Last Admin: 09/09/20 09:08 Dose: 1,500 mg Documented by: Lorazepam (Lorazepam 1 Mg Tab) 1 mg PO BID PRN PRN Reason: Anxiety Stop: 09/30/20 22:01 Last Admin: 09/09/20 07:26 Dose: 1 mg Documented by: Magnesium Hydroxide (Magnesium Hydroxide Susp 30 Ml Udc) 30 ml PO Q12H PRN PRN Reason: Constipation Stop: 09/30/20 19:27 Metoprolol Succinate (Metoprolol Succ 50mg Ext Rel Tab) [facility] [place] Stop: 10/01/20 08:59 Last Admin: 09/09/20 09:09 Dose: 50 mg Documented by: Mirtazapine (Mirtazapine Tab 15 Mg Tab) 15 mg PO HS [facility] Stop: 10/06/20 20:59 Last Admin: 09/08/20 20:13 Dose: 15 mg Documented by: Miscellaneous (Remove Nicoderm Patch) 1 ea N/A DAILY@0859 [facility] Stop: 10/04/20 08:58 Last Admin: 09/09/20 09:09 Dose: 1 ea Documented by: Nicotine (Nicotine 21 Mg/24 Hr Tdsy) 21 mg TD [facility] Stop: 10/03/20 16:29 Last Admin: 09/09/20 09:09 Dose: 21 mg Documented by: Nitroglycerin (Nitroglycerin Sl 0.4 Mg/Tab Tab) 0.4 mg SL UD PRN PRN Reason: Chest Pain Stop: 09/30/20 19:27 Last Admin: 09/02/20 15:06 Dose: 0.4 mg Documented by: Ondansetron HCl (Ondansetron 4 Mg Od Tab) 4 mg PO Q8H PRN PRN Reason: Nausea Stop: 09/30/20 22:01 Oxycodone HCl (Oxycodone Hcl Ir 5 Mg Tab (Immediate Release)) 5 mg PO Q6 PRN PRN Reason: Pain Stop: 09/17/20 07:40 Last Admin: 09/09/20 18:03 Dose: 5 mg Documented by: Pantoprazole Sodium (Pantoprazole 40 Mg Tab) 40 mg PO QAM [facility] Stop: 10/01/20 08:59 Last Admin: 09/09/20 09:08 Dose: 40 mg Documented by: Polyethylene Glycol (Polyethylene (Miralax) 17 Gm Pack) 17 gm PO DAILY PRN PRN Reason: Constipation Stop: 09/30/20 19:27 Polyethylene Glycol (Polyethylene (Miralax) 17 Gm Pack) 17 gm PO DAILY PRN PRN Reason: Constipation Stop: 10/08/20 12:49 Raltegravir (Raltegravir Potassium 400 Mg Tab) 400 mg PO BID [facility] Stop: 09/30/20 21:44 Last Admin: 09/09/20 09:09 Dose: 400 mg Documented by: Ritonavir (Ritonavir 100 Mg Tab) 100 mg PO BID [facility] Stop: 09/30/20 21:44 Last Admin: 09/09/20 09:09 Dose: 100 mg Documented by: Saccharomyces Boulardii (Saccharomyces Boulardii 250 Mg Cap) 250 mg PO BID [facility] Stop: 09/30/20 21:44 Last Admin: 09/09/20 09:08 Dose: 250 mg Documented by: Thiamine HCl (Thiamine Hcl 100 Mg Tab) 100 mg PO QAM [facility] Stop: 09/30/20 20:43 Last Admin: 09/09/20 09:08 Dose: 100 mg Documented by: (1) Hypertension Hypertension type: essential hypertension Qualified Code(s): I10 - Essential (primary) hypertension (2) Chest pain Chest pain type: unspecified Qualified Code(s): R07.9 - Chest pain, unspecified
[2020-09-09] MEDS: ATORVASTATIN 40 MG TAB PO SCH (20:24)
[2020-09-09] MEDS: MIRTAZAPINE TAB 15 MG TAB PO SCH (20:25)
[2020-09-10] MEDS: FLUTICASONE/VILANTEROL 100/25MCG 14 PUFFS/INHALER INH SCH (08:37)
[2020-09-10] MEDS: ENOXAPARIN INJ 40 MG/0.4 ML SYR SQ SCH (08:37)
[2020-09-10] MEDS: levETIRAcetam 500 MG TAB PO SCH ×2 (08:38→20:25)
[2020-09-10] MEDS: NICOTINE 21 MG/24 HR TDSY TD SCH (08:38)
[2020-09-10] MEDS: DULoxetine HCL 60 MG CAP PO SCH (08:38)
[2020-09-10] MEDS: FOLIC ACID 1 MG TAB PO SCH (08:39)
[2020-09-10] MEDS: RALTEGRAVIR POTASSIUM 400 MG TAB PO SCH ×2 (08:39→20:26)
[2020-09-10] MEDS: METOPROLOL SUCC 50MG EXT REL TAB PO SCH (08:39)
[2020-09-10] MEDS: RITONAVIR 100 MG TAB PO SCH ×2 (08:39→20:27)
[2020-09-10] MEDS: DARUNAVIR ETHANOLATE 600 MG TAB PO SCH ×2 (08:39→17:13)
[2020-09-10] MEDS: SACCHAROMYCES BOULARDII 250 MG CAP PO SCH ×2 (08:40→20:27)
[2020-09-10] MEDS: THIAMINE HCL 100 MG TAB PO SCH (08:40)
[2020-09-10] MEDS: ASPIRIN 81 MG ECTAB PO SCH (08:40)
[2020-09-10] MEDS: GABAPENTIN 800 MG TAB PO SCH ×3 (08:40→20:26)
[2020-09-10] MEDS: PANTOprazole 40 MG TAB PO SCH (08:40)
[2020-09-10] MEDS: clonazePAM 1 MG TAB PO SCH ×3 (08:42→20:25)
--- NOTE | 2020-09-10 08:55 | Hospitalist Progress Note ---
Date of Service September 10, 2020 Assessment & Plan (1) Neuropathic pain of both feet: chronic, severe 2/2 HIV medications. Cont home medications including Neurontin, duloxetine and Oxycodone. Would hold on increasing narcotic medication administration as patient has became oversedated and has a high risk of this with high doses and polypharmacy effects. Discussed Ibuprofen intermittently as a non-narcotic option. He is on aspirin for secondary prophylaxis of stroke so this may interfere if taken continuously. He has been feeling better with this overnight. Orthotics is working on his brace. which needs to be resized. (2) Alcohol abuse: h/o heavy alcohol use without signs or symptoms of withdrwawal this admission. Patient is on a large standing dose of benzodiazepines, however. Narcotics and benzos had to be held for a time 2/2 oversedation and patient has a h/o drug abuse in the past. Avoid escalation of pain medications as a caution. (3) Seizure disorder: Reports some noncompliance with home AEDs. Continues on Keppra, which may contribute to somnolence. Recommend outpatient Neurology follow-up after discharge. Some breakthrough in recent weeks 2/2 reported noncompliance with therapy. (4) History of pulmonary embolism: h/o pulmonary embolism with warfarin on his medication list on arrival to the hospital. He reported noncompliance and INR was reflective of this at 1.0. Chest CTA revealed no PE, Lower extremity doppler revealed no DVT. No further need for coumadin at this time. Also, patient is a high risk for fall with bleeding complication adding to the risk of continuing this medication. (5) HIV positive: Cont darunivir, raltegravir, and ritonavir per home regimen. pt is supposed to follow up with Fawn GROSSMAN Patient has not seen infectious disease for a long period of time Needs follow-up every 3 months. Previous provider d/w Fawn GROSSMAN this admission, no change in medications recommended Will need appointment scheduled with Fawn GROSSMAN after discharge from rehab (6) Chronic pain syndrome: Cont chronic narcotics as above with caution for any oversedation as above. Cont gabapentin and Cymbalta per home regimen. (7) Tobacco abuse: reportedly smokers 4 ppd cigarettes. Advised him to quit. nicotine patch. (8) Anxiety: Psych recommends reducing clonazepam dose to 1mg PO TID and adding mirtazipine qHS. He is tolerating this change without issue. Cont this regimen at discharge. Talk therapy STRONGLY recommended as an adjunct to medical therapy. (9) Hypertension: Controlled, cont holding amlodipine at this time. (10) COPD (chronic obstructive pulmonary disease): stable, no evidence of exacerbation at this time. (11) Chest pain: initially present on admission. Underwent CT chest for PE which was negative. EKG nonischemic, initial troponin negative. This has resolved. (12) Physical deconditioning: Cont PT/OT; rehab planned at SNF (13) Ambulatory dysfunction: Cont PT/OT; rehab planned at SNF (14) DVT prophylaxis: Lovenox Full Code Disposition: received insurance authorization, awaiting bed confirmation. Likely DC to SNF in am. DO Fawn Nickerson Hospitalist Admission and Anticipated Discharge Date Admission Date: September 01, 2020 Subjective 55 yo M with severe chronic pain and neuropathy of his feet -mom there with him today -pain in feet somewhat improved with the PRN Ibuprofen -heartily eating -understands the need for follow-up with ID after settled in new place. Review of Systems Review of Systems: All systems reviewed & are unremarkable except as noted in Subjective Physical Exam Physical Exam: CONSTITUTIONAL: WNWD, vitals as above, he is in NAD sitting on edge of bed independently. EYES: normal conjunctivae, no scleral icterus ENT: external ear and nose normal, oropharynx clear, MMM RESPIRATORY: clear to auscultation bilaterally, no crackles, rales or wheezes, normal respiratory effort CARDIOVASCULAR: regular rate and rhythm, S1 and 2 heard without murmurs, gallops or rubs, no JVD, no peripheral edema CHEST: inspection of chest was normal GASTROINTESTINAL: soft, nontender, nondistended, no guarding MUSCULOSKELETAL: generalized weakness, notably cannot move LUE well and wrist remains in a flexed position, head is normocephalic and atraumatic SKIN: warm and dry NEUROLOGIC: CN 2-12 grossly intact, bilateral feet with pain to touch which were not palpated 2/2 patient's level of discomfort with this, normal cognition, normal speech, no tremor PSYCHIATRIC: alert cooperative and answering questions appropriately. Results & Data Results & Data ([facility]) Vital Signs (Past 12 Hours) Vital Signs Temp Pulse Resp BP Pulse Ox 09/10/20 07:35 36.4 C L 87 18 132/84 87 L 09/09/20 22:24 36.6 C 88 18 119/78 97 Medications Administered Current Inpatient Medications Acetaminophen (Acetaminophen 325 Mg Tab) 650 mg PO Q4H PRN PRN Reason: Pain or Fever Stop: 09/30/20 19:27 Last Admin: 09/02/20 09:11 Dose: 650 mg Documented by: Al Hydrox/Mg Hydrox/Simethicone (Aluminum/Magnesium Susp 30 Ml Udc) 15 ml PO Q4H PRN PRN Reason: Dyspepsia Stop: 09/30/20 19:27 Last Admin: 09/06/20 14:24 Dose: 15 ml Documented by: Albuterol (Albut/Ipratrop 3mg/0.5mg Neb 3 Ml Vial) 3 ml INH Q4H PRN PRN Reason: Shortness Of Breath Or Wheezing Stop: 10/02/20 17:43 Amlodipine Besylate (Amlodipine Besylate 5 Mg Tab) [facility] [place]: 10/01/20 08:59 Last Admin: 09/05/20 08:22 Dose: 5 mg Documented by: Aspirin (Aspirin 81 Mg Ectab) [facility] [place]: 10/01/20 08:59 Last Admin: 09/10/20 08:40 Dose: 81 mg Documented by: Atorvastatin Calcium (Atorvastatin 40 Mg Tab) 80 mg PO HS [facility] Stop: 10/01/20 20:59 Last Admin: 09/09/20 20:24 Dose: 80 mg Documented by: Clonazepam (Clonazepam 1 Mg Tab) 1 mg PO TID [facility] Stop: 10/08/20 19:59 Last Admin: 09/10/20 08:42 Dose: 1 mg Documented by: Darunavir (Darunavir Ethanolate 600 Mg Tab) 600 mg PO BIDM [facility] Stop: 09/30/20 21:39 Last Admin: 09/10/20 08:39 Dose: 600 mg Documented by: Duloxetine HCl (Duloxetine Hcl 60 Mg Cap) 60 mg PO QAM [facility] Stop: 10/01/20 08:59 Last Admin: 09/10/20 08:38 Dose: 60 mg Documented by: Enoxaparin Sodium (Enoxaparin Inj 40 Mg/0.4 Ml Syr) 40 [facility] S[facility] [place]: 10/01/20 08:59 Last Admin: 09/10/20 08:37 Dose: 40 mg Documented by: Fluticasone Propionate (Fluticasone Propionate Na Spr 16 Gm Btl) 2 sprays FLA[facility]IA QAM PRN PRN Reason: Allergy Symptoms Stop: 10/02/20 17:43 Fluticasone/Vilanterol (Fluticasone/Vilanterol 100/25mcg 14 Puffs/Inhaler) 1 puffs INH DAILY [facility] Stop: 10/01/20 08:59 Last Admin: 09/10/20 08:37 Dose: 1 puffs Documented by: Folic Acid (Folic Acid 1 Mg Tab) 1 mg PO QAM [facility] Stop: 10/03/20 08:59 Last Admin: 09/10/20 08:39 Dose: 1 mg Documented by: Furosemide (Furosemide 20 Mg Tab) 20 mg PO QAM PRN PRN Reason: Swelling Stop: 09/30/20 21:33 Last Admin: 09/01/20 09:41 Dose: 20 mg Documented by: Gabapentin (Gabapentin 800 Mg Tab) 800 mg PO TID [facility] Stop: 09/30/20 21:39 Last Admin: 09/10/20 08:40 Dose: 800 mg Documented by: Hydroxyzine HCl (Hydroxyzine Hcl 10 Mg Tab) 10 mg PO QID PRN PRN Reason: anxiety Stop: 10/08/20 19:56 Last Admin: 09/09/20 18:04 Dose: 10 mg Documented by: Lorazepam (Ativan) 1 mg in 2 mls @ 2 mls/min IV UD PRN; Protocol PRN Reason: EtOH Withdrawl AWSS Score 6,7 Stop: 10/01/20 17:19 Lorazepam (Ativan) 2 mg in 4 mls @ 4 mls/min IV UD PRN; Protocol PRN Reason: EtOH Withdrawl AWSS Score 8,9 Stop: 10/01/20 17:19 Lorazepam (Ativan) 3 mg in 6 mls @ 4 mls/min IV ONCE PRN; Protocol PRN Reason: EtOH Withdrawl AWSS Score >=10 Stop: 10/01/20 17:19 Ibuprofen (Ibuprofen 600 Mg Tab) 600 mg PO Q8H PRN PRN Reason: pain/fever Stop: 10/09/20 17:53 Levetiracetam (Levetiracetam 500 Mg Tab) 1,500 mg PO BID [facility] Stop: 09/30/20 21:44 Last Admin: 09/10/20 08:38 Dose: 1,500 mg Documented by: Lorazepam (Lorazepam 1 Mg Tab) 1 mg PO BID PRN PRN Reason: Anxiety Stop: 09/30/20 22:01 Last Admin: 09/09/20 21:25 Dose: 1 mg Documented by: Magnesium Hydroxide (Magnesium Hydroxide Susp 30 Ml Udc) 30 ml PO Q12H PRN PRN Reason: Constipation Stop: 09/30/20 19:27 Metoprolol Succinate (Metoprolol Succ 50mg Ext Rel Tab) 50 mg PO QAM [facility] Stop: 10/01/20 08:59 Last Admin: 09/10/20 08:39 Dose: 50 mg Documented by: Mirtazapine (Mirtazapine Tab 15 Mg Tab) 15 mg PO HS [facility] Stop: 10/06/20 20:59 Last Admin: 09/09/20 20:25 Dose: 15 mg Documented by: Miscellaneous (Remove Nicoderm Patch) 1 ea N/A DAILY@0859 [facility] Stop: 10/04/20 08:58 Last Admin: 09/10/20 08:42 Dose: 1 ea Documented by: Nicotine (Nicotine 21 Mg/24 Hr Tdsy) 21 mg TD QAM [facility] Stop: 10/03/20 16:29 Last Admin: 09/10/20 08:38 Dose: 21 mg Documented by: Nitroglycerin (Nitroglycerin Sl 0.4 Mg/Tab Tab) 0.4 mg SL UD PRN PRN Reason: Chest Pain Stop: 09/30/20 19:27 Last Admin: 09/02/20 15:06 Dose: 0.4 mg Documented by: Ondansetron HCl (Ondansetron 4 Mg Od Tab) 4 mg PO Q8H PRN PRN Reason: Nausea Stop: 09/30/20 22:01 Oxycodone HCl (Oxycodone Hcl Ir 5 Mg Tab (Immediate Release)) 5 mg PO Q6 PRN PRN Reason: Pain Stop: 09/17/20 07:40 Last Admin: 09/09/20 18:03 Dose: 5 mg Documented by: Pantoprazole Sodium (Pantoprazole 40 Mg Tab) 40 mg PO QAM [facility] Stop: 10/01/20 08:59 Last Admin: 09/10/20 08:40 Dose: 40 mg Documented by: Polyethylene Glycol (Polyethylene (Miralax) 17 Gm Pack) 17 gm PO DAILY PRN PRN Reason: Constipation Stop: 09/30/20 19:27 Polyethylene Glycol (Polyethylene (Miralax) 17 Gm Pack) 17 gm PO DAILY PRN PRN Reason: Constipation Stop: 10/08/20 12:49 Raltegravir (Raltegravir Potassium 400 Mg Tab) 400 mg PO BID [facility] Stop: 09/30/20 21:44 Last Admin: 09/10/20 08:39 Dose: 400 mg Documented by: Ritonavir (Ritonavir 100 Mg Tab) 100 mg PO BID [facility] Stop: 09/30/20 21:44 Last Admin: 09/10/20 08:39 Dose: 100 mg Documented by: Saccharomyces Boulardii (Saccharomyces Boulardii 250 Mg Cap) 250 mg PO BID [facility] Stop: 09/30/20 21:44 Last Admin: 09/10/20 08:40 Dose: 250 mg Documented by: Thiamine HCl (Thiamine Hcl 100 Mg Tab) 100 mg PO QAM [facility] Stop: 09/30/20 20:43 Last Admin: 09/10/20 08:40 Dose: 100 mg Documented by: (1) Chest pain Chest pain type: unspecified Qualified Code(s): R07.9 - Chest pain, unspecified (2) Hypertension Hypertension type: essential hypertension Qualified Code(s): I10 - Essential (primary) hypertension
[2020-09-10] MEDS: oxyCODONE HCL IR 5 MG TAB (IMMEDIATE RELEASE) PO PRN (12:15)
[2020-09-10] MEDS: LORazepam 1 MG TAB PO PRN (14:09)
[2020-09-10] MEDS: MIRTAZAPINE TAB 15 MG TAB PO SCH (20:26)
[2020-09-10] MEDS: ATORVASTATIN 40 MG TAB PO SCH (20:27)
--- NOTE | 2020-09-11 08:25 | Discharge Summary ---
Date of Service September 11, 2020 Admission HPI Per Admitting Provider 55 yo HIV-positive patient with a history of alcohol and tobacco abuse presents with severe chest pain. The pain began while he was walking this morning. He reports becoming suddenly dizzy and lightheaded with a sharp stabbing chest pain in the center of his chest and associated shortness of breath. He reports returning to his bed and laying down with the chest pain lasting approximately 30 minutes and resolving with rest. He denies any issues with chest pain in the last year. 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 He reports smoking 4 packs of cigarettes a day and drinking at least 2 martinis per week. He reports having a recent seizure 2 weeks ago and from the pieces of the story it appears he does have some noncompliance with medications. He did report to me he takes warfarin inte rmittently. INR today is 1.0. The patient was recently admitted from August 16- out of concerns for hematochezia and is awaiting a colonoscopy. He denies any further blood per rectum and denies other symptoms such as abdominal pain. The symptom he is most concerned with is his chronic neuropathy and management of the pain in his feet. He has severe chronic pain syndrome from neuropathy from use of HIV medication, and is on high-dose benzodiazepines and oxycodone. He has no known history of coronary disease however does have vascular risk factors and history of bilateral carotid disease with stroke in February 2015. He has had a history of hyperlipidemia in the past, is a smoker with questionable compliance with medications. He also has a history of right cerebral AVM. Per outpatient notes the patient underwent a nuclear ischemic stress test in 2016 that was normal. His most recent echocardiogram was performed in December 2018 revealing normal left ventricular wall motion with an ejection fraction 60 to 65% and no significant valve disease. Admission Exam Per Admitting Provider Constitutional: WD/WN, vitals as above Eyes: PERRL, conjunctivae normal, anicteric sclerae ENMT: external ear and nose normal, oropharynx normal Respiratory: normal respiratory effort, lungs clear to auscultation Cardiovascular: Rate/Rhythm: regular rhythm and + tachycardic Vessels: normal peripheral pulses Extremities: no edema Gastrointestinal (Abdomen): Inspection/Auscultation: normal bowel sounds; abdomen not distended Percussion/Palpation: + abdomen tender (LLQ) and abdomen soft; no hepatosplenomegaly Musculoskeletal: Extremities: no cyanosis and no clubbing Chronic left hemiplegia Skin: no rashes, warm and dry Neurologic: PERRL, EOMI, accommodation nl, no face palsy, no dysarthria Psychiatric: A+Ox3, euthymic affect Principal Diagnosis chronic pain with opiate dependence anxiety neuropathic pain of both feet alcohol abuse seizure disorder h/o noncompliance HIV Discharge Exam CONSTITUTIONAL: WNWD, vitals as above, he is in NAD sitting on edge of bed independently. EYES: normal conjunctivae, no scleral icterus ENT: external ear and nose normal, oropharynx clear, MMM RESPIRATORY: clear to auscultation bilaterally, no crackles, rales or wheezes, normal respiratory effort CARDIOVASCULAR: regular rate and rhythm, S1 and 2 heard without murmurs, gallops or rubs, no JVD, no peripheral edema CHEST: inspection of chest was normal GASTROINTESTINAL: soft, nontender, nondistended, no guarding MUSCULOSKELETAL: generalized weakness, notably cannot move LUE well and wrist r emains in a flexed position, head is normocephalic and atraumatic SKIN: warm and dry NEUROLOGIC: CN 2-12 grossly intact, bilateral feet with pain to touch, normal cognition, normal speech, no tremor PSYCHIATRIC: alert cooperative and answering questions appropriately. Discharge Data Allergies Allergy/AdvReac Type Severity Reaction Status Date / Time azithromycin Allergy Severe rash/anaphy Verified 09/01/20 04:29 laxis Penicillins Allergy Severe ANAPHYLAXIS Verified 08/16/20 11:53 niacin Allergy Intermediate RASH Verified 08/16/20 11:53 Sulfa (Sulfonamide Allergy Intermediate "ITCHY Verified 08/16/20 11:53 Antibiotics) RASH" tramadol Allergy Mild RASH Verified 08/16/20 11:53 meloxicam AdvReac Intermediate GI SYMPTOMS Verified 08/16/20 11:53 shellfish derived AdvReac Intermediate gi symptoms Verified 08/16/20 11:53 topiramate AdvReac Intermediate NAUSEA Verified 08/16/20 11:53 lisinopril AdvReac Unknown cough Verified 09/01/20 04:29 Consultations 08/31/20 19:20 ED Decision to Admit Stat 09/02/20 08:00 Consult Infectious Diseases Routine 09/04/20 13:53 Consult Neurology Routine Consult Psychiatry Routine Ordered Studies 08/31/20 17:17 CT angio chest PE protocol Stat IMPRESSION: 1. No evidence for pulmonary embolus. 2. Mild emphysema. 3. Mild aneurysmal dilatation of the ascending thoracic aorta measuring up to 4 cm in diameter. No evidence for an aortic dissection. 09/01/20 00:00 US venous doppler LE BI Urgent IMPRESSION: No DVT within the right or left lower extremity. 09/02/20 11:55 CT head/brain wo con Urgent IMPRESSION: Chronic findings as above without acute intracranial abnormality. Hospital Course (1) Neuropathic pain of both feet: chronic, severe 2/2 HIV medications. Cont home medications including Neurontin, duloxetine and Oxycodone. Would hold on increasing narcotic medication administration as patient has became oversedated and has a high risk of this with high doses and polypharmacy effects. Discussed Ibuprofen intermittently as a non-narcotic option. He is on aspirin for secondary prophylaxis of stroke so this may interfere if taken continuously. He has been feeling better with this overnight. Orthotics is working on his brace. which needs to be resized. (2) Alcohol abuse: h/o heavy alcohol use without signs or symptoms of withdrwawal this admission. Patient is on a large standing dose of benzodiazepines, however. Narcotics and benzos had to be held for a time 2/2 oversedation and patient has a h/o drug abuse in the past. Avoid escalation of pain medications as a caution. (3) Seizure disorder: Reports some noncompliance with home AEDs. Continues on Keppra, which may contribute to somnolence. Recommend outpatient Neurology follow-up after d ischarge. Some breakthrough in recent weeks 2/2 reported noncompliance with therapy. (4) History of pulmonary embolism: h/o pulmonary embolism with warfarin on his medication list on arrival to the hospital. He reported noncompliance and INR was reflective of this at 1.0. Chest CTA revealed no PE, Lower extremity doppler revealed no DVT. No further need for coumadin at this time. Also, patient is a high risk for fall with bleeding complication adding to the risk of continuing this medication. (5) HIV positive: Cont darunivir, raltegravir, and ritonavir per home regimen. pt is supposed to follow up with [facility] Patient has not seen infectious disease for a long period of time Needs follow-up every 3 months. Previous provider d/w [facility] this admission, no change in medications recommended Will need appointment scheduled with [facility] after discharge from rehab (6) Chronic pain syndrome: Cont chronic narcotics as above with caution for any oversedation as above. Cont gabapentin and Cymbalta per home regimen. (7) Tobacco abuse: reportedly smokers 4 ppd cigarettes. Advised him to quit. nicotine patch. (8) Anxiety: Psych recommends reducing clonazepam dose to 1mg PO TID and adding mirtazipine 15 mg qHS. He is tolerating this change without issue. Cont this regimen at discharge. Talk therapy STRONGLY recommended as an adjunct to medical therapy. (9) Hypertension: Controlled, cont holding amlodipine at this time. (10) COPD (chronic obstructive pulmonary disease): stable, no evidence of exacerbation at this time. (11) Chest pain: initially present on admission. Underwent CT chest for PE which was neg ative. EKG nonischemic, initial troponin negative. This has resolved. (12) Physical deconditioning: Cont PT/OT; rehab planned at SNF (13) Ambulatory dysfunction: Cont PT/OT; rehab planned at SNF (14) DVT prophylaxis: Lovenox Full Code Disposition: received insurance authorization, awaiting bed confirmation. Likely DC to SNF this am. Total Time Total Time Spent Total Time Spent (In Minutes): 40 Total Time Includes: Examination of the Patient, Discharge Planning, Medication Reconciliation and Communication With Other Providers Discharge Plan Discharge Items Patient Disposition: Home - Self-Care Reason For Visit: CHEST PAIN Discharge Diagnosis: chronic pain with opiate dependence anxiety neuropathic pain of both feet alcohol abuse seizure disorder h/o noncompliance HIV Activity: Resume your previous activity Non-emergency contact: Primary Care Provider Call non-emergency contact if: you have any medication questions Follow-up/Referrals: Alexandr Elder DO [Primary Care Provider] - (Date & Time 09/09/2020 11:00 AM Provider Aelxandr Elder DO Department [facility] ) Diet: Regular Addtl Attending Provider Instructions: Please take all medications as instructed on discharge list below. It is recommended that you follow-up with your primary care physician within 1-2 weeks of hospital discharge to ensure you are still doing well. The appointment was scheduled for you for 09/09. You were started on new medication- mirtazapine / remeron, which was recommended by psychiatry service here. You can stop taking warfarin for now. Discuss further with your primary care doctor. Please call if you have any questions or problems. You can reach a [facility] hospitalist on duty at [facility] 24 hours a day by calling [phone] Pending Studies at Discharge: No Stand-Alone Forms: My [facility], Smoking Cessation Medications and DC Order Prescriptions: New oxycodone 5 mg Tablet 5 mg PO Q6 PRN (Reason: pain) Qty: 10 RF: 0 clonazepam 1 mg Tablet 1 mg PO TID Qty: 10 RF: 0 polyethylene glycol 3350 [Miralax] 17 gram Powder In Packet 17 g PO DAILY PRN (Reason: constipation) Qty: 14 RF: 0 mirtazapine 15 mg Tablet 15 mg PO HS Qty: 30 RF: 0 thiamine HCl (vitamin B1) [Vitamin B-1] 100 mg Tablet 100 mg PO QAM Qty: 30 RF: 0 nicotine [Nicoderm CQ] 21 mg/24 hr Patch 24 Hour 21 mg transdermal QAM 7 Days RF: 0 ibuprofen 600 mg Tablet 600 mg PO Q8H PRN (Reason: pain) Qty: 10 RF: 0 Continued ritonavir 100 mg tablet 100 mg PO BID Qty: 180 RF: 1 Isentress 400 mg tablet 400 mg PO BID Qty: 180 RF: 1 Prezista 600 mg tablet 600 mg PO BIDM Qty: 180 RF: 1 aspirin 81 mg tablet,delayed release (DR/EC) 81 mg PO QAM RF: 0 furosemide [Lasix] 20 mg Tablet 20 mg PO QAM PRN (Reason: Swelling) RF: 0 fluticasone propionate [Flonase Allergy Relief] 50 mcg/actuation [place],Suspension 2 spray INTRANASAL QAM PRN (Reason: Allergy Symptoms) RF: 0 budesonide-formoterol [Symbicort] 160-4.5 mcg/actuation Hfa Aerosol Inhaler 2 puff INHALATION Q12H RF: 0 folic acid 1 mg Tablet 1 mg PO QAM RF: 0 gabapentin [Neurontin] 800 mg Tablet 800 mg PO TID RF: 0 albuterol sulfate [Ventolin HFA] 90 mcg/actuation HFA aerosol inhaler 2 puff inhalation Q4H PRN (Reason: Wheezing) RF: 0 ondansetron 4 mg tablet,disintegrating 4 mg PO Q8H PRN (Reason: Nausea) RF: 0 Saccharomyces boulardii [Florastor] 250 mg capsule 250 mg PO BID Qty: 20 RF: 0 duloxetine [Cymbalta] 60 mg Capsule,Delayed Release(Dr/Ec) 60 mg PO QAM RF: 0 ipratropium-albuterol 0.5 mg-3 mg(2.5 mg base)/3 mL Solution For Nebulization 3 ml INHALATION Q4H PRN (Reason: Shortness Of Breath Or Wheezing) RF: 0 omeprazole 20 mg Capsule,Delayed Release(Dr/Ec) 20 mg PO QAM RF: 0 metoprolol succinate [Toprol XL] 50 mg tablet extended release 24 hr 50 mg PO QAM RF: 0 lorazepam 1 mg tablet 1 mg PO BID PRN (Reason: Anxiety) RF: 0 atorvastatin 80 mg Tablet 80 mg PO HS RF: 0 levetiracetam 500 mg Tablet 1,500 mg PO BID RF: 0 zaleplon 10 mg Capsule 10 mg PO HS PRN (Reason: Insomnia) RF: 0 ramelteon 8 mg Tablet 8 mg PO HS RF: 0 Discontinued amlodipine [Norvasc] 5 mg tablet 5 mg PO QAM RF: 0 clonazepam 2 mg tablet 2 mg PO BID RF: 0 oxycodone 10 mg tablet 10 mg PO Q6H PRN (Reason: Pain) RF: 0 warfarin 5 mg Tablet 5 mg PO DAILY RF: 0 Discharge Orders: Discharge Order (Routine); Ordered 09/11/20 Ordered By: Shar Hicks Admission Data Admit Date/Time: 09/01/20 15:34 Attending Provider: Shar Hicks Admit Provider: Sherrie Manley Primary Care Provider: Alexandr Elder Other Providers: Sherrie Manley ; Denzel Monsalve ; Trevor Justice ; Giovanni Padron I. ; Daniel Lozano II ; Tram Gale ; James Marin ; [facility], ; [facility] ; Cheryl Veloz. ; Luis Angel Finnegan ; Zane Zepeda ; Abigail Ruiz ; Adolfo Hinds ; Bart Massey ; Slim Contreras ; Brigette Loya ; Ricky Cabral ; Katelynn Faulkner ; Ashwini Smith ; Amarilis Georges ; García Wiseman I. ; Adriana Cartwright ; Carolina Lizarraga ; Sharron Huston
[2020-09-11] MEDS: NICOTINE 21 MG/24 HR TDSY TD SCH (09:27)
[2020-09-11] MEDS: ENOXAPARIN INJ 40 MG/0.4 ML SYR SQ SCH (09:27)
[2020-09-11] MEDS: FLUTICASONE/VILANTEROL 100/25MCG 14 PUFFS/INHALER INH SCH (09:27)
[2020-09-11] MEDS: clonazePAM 1 MG TAB PO SCH (09:27)
[2020-09-11] MEDS: RITONAVIR 100 MG TAB PO SCH (09:28)
[2020-09-11] MEDS: levETIRAcetam 500 MG TAB PO SCH (09:28)
[2020-09-11] MEDS: FOLIC ACID 1 MG TAB PO SCH (09:28)
[2020-09-11] MEDS: METOPROLOL SUCC 50MG EXT REL TAB PO SCH (09:28)
[2020-09-11] MEDS: PANTOprazole 40 MG TAB PO SCH (09:29)
[2020-09-11] MEDS: THIAMINE HCL 100 MG TAB PO SCH (09:29)
[2020-09-11] MEDS: GABAPENTIN 800 MG TAB PO SCH (09:29)
[2020-09-11] MEDS: SACCHAROMYCES BOULARDII 250 MG CAP PO SCH (09:29)
[2020-09-11] MEDS: DARUNAVIR ETHANOLATE 600 MG TAB PO SCH (09:29)
[2020-09-11] MEDS: RALTEGRAVIR POTASSIUM 400 MG TAB PO SCH (09:29)
[2020-09-11] MEDS: ASPIRIN 81 MG ECTAB PO SCH (09:29)
[2020-09-11] MEDS: DULoxetine HCL 60 MG CAP PO SCH (09:30)
[2020-09-11] MEDS: oxyCODONE HCL IR 5 MG TAB (IMMEDIATE RELEASE) PO PRN (09:39)
== END 2020-09-11 12:26 | DRG 73 ==
LOC: ED 16:19 → 2W 16:19 → SUATTDRO 19:29 → 2W 20:06 → SUATTDRO 09-01 15:34 → 3W 09-07 12:13

== ENCOUNTER 2020-12-20 04:44 | Observation (INO) ==
[2020-12-20] MEDS ORDERED: POLYETHYLENE (MIRALAX) 17 GM PACK PO PRN (08:22)
[2020-12-20] MEDS ORDERED: ONDANSETRON INJ 2 MG/ML 2 ML VIAL IV PRN (08:22)
--- NOTE | 2020-12-20 10:15 | Consultation ---
Date of Consultation December 20, 2020 Assessment & Plan (1) Peripheral vascular disease: On exam, this patient has a viable left lower extremity without signs of significant ischemia. His pain is not associated with his superficial femoral and iliac artery occlusive disease. Being he does not use his left leg I would not be aggressive with revascularization of the left lower extremity even if it develops severe ischemia. Thank you very much for letting us participate in the care of this patient. History of Present Illness Reason for Consultation: Left leg pain Attending Physician: Vahe Oliver MD History of Present Illness This is a 55 year old male with hx of a stroke 1 1/2 yrs ago leaving him with paralysis of the left side. He does not use his left leg to walk or for support. He says he would be better off without the leg, that it gets in the way. He has at least a 3 year history of neuropathy of the lower extremity. He presented to [facility] with pain of his left leg and cellulitis. He was treated with antibiotics. He claims that last night his pain got worse and was not relieved with pain meds. He denies any ulcers of the foot or foot pain. Most of the pain he complains about at this point is from just above the ankle to the ankle joint. He can not move his toes but this is long standing since his stroke. He does know he has peripheral vascular occlusive disease and a small AAA. He uses alcohol and smokes. He is HIV positive. Allergies Allergy/AdvReac Type Severity Reaction Status Date / Time azithromycin Allergy Severe rash/anaphy Verified 09/01/20 04:29 laxis Penicillins Allergy Severe ANAPHYLAXIS Verified 08/16/20 11:53 niacin Allergy Intermediate RASH Verified 08/16/20 11:53 Sulfa (Sulfonamide Allergy Intermediate "ITCHY Verified 08/16/20 11:53 Antibiotics) RASH" tramadol Allergy Mild RASH Verified 08/16/20 11:53 meloxicam AdvReac Intermediate GI SYMPTOMS Verified 08/16/20 11:53 shellfish derived AdvReac Intermediate gi symptoms Verified 08/16/20 11:53 topiramate AdvReac Intermediate NAUSEA Verified 08/16/20 11:53 lisinopril AdvReac Unknown cough Verified 09/01/20 04:29 Home Medications Medication Instructions Recorded Confirmed Type aspirin 81 mg PO QAM 06/08/18 08/31/20 History budesonide-formoterol [Symbicort] 2 puff INHALATION Q12H 06/08/18 08/31/20 History fluticasone propionate [Flonase 2 spray INTRANASAL QAM PRN 06/08/18 08/31/20 History Allergy Relief] folic acid 1 mg PO QAM 06/08/18 08/31/20 History furosemide [Lasix] 20 mg PO QAM PRN 06/08/18 08/31/20 History gabapentin [Neurontin] 800 mg PO TID 08/25/18 08/31/20 History ipratropium-albuterol 3 ml INHALATION Q4H PRN 10/04/18 08/31/20 History omeprazole 20 mg PO QAM 10/04/18 08/31/20 History albuterol sulfate [Ventolin HFA] 2 puff INHALATION Q4H PRN 11/14/18 08/31/20 History ondansetron 4 mg PO Q8H PRN 11/14/18 08/31/20 History Saccharomyces boulardii [Florastor] 250 mg PO BID #20 cap 11/15/18 08/31/20 Rx darunavir ethanolate 600 mg tablet 600 mg PO BIDM #180 tab 02/09/19 08/31/20 Rx raltegravir 400 mg tablet 400 mg PO BID #180 tab 02/09/19 08/31/20 Rx ritonavir 100 mg tablet 100 mg PO BID #180 tab 02/09/19 08/31/20 Rx metoprolol succinate [Toprol XL] 50 mg PO QAM 04/07/19 08/31/20 History duloxetine [Cymbalta] 60 mg PO QAM 05/21/19 08/31/20 History atorvastatin 80 mg PO HS 08/16/20 08/31/20 History levetiracetam 1,500 mg PO BID 08/16/20 08/31/20 History lorazepam 1 mg PO BID PRN 08/16/20 08/31/20 History ramelteon 8 mg PO HS 08/16/20 08/31/20 History zaleplon 10 mg PO HS PRN 08/16/20 08/31/20 History clonazepam 1 mg PO TID #10 tab 09/11/20 Rx ibuprofen 600 mg PO Q8H PRN #10 tab 09/11/20 Rx mirtazapine 15 mg PO HS #30 tab 09/11/20 Rx oxycodone 5 mg PO Q6 PRN #10 tab 09/11/20 Rx polyethylene glycol 3350 [Miralax] 17 g PO DAILY PRN #14 ea 09/11/20 Rx thiamine HCl (vitamin B1) [Vitamin 100 mg PO QAM #30 tab 09/11/20 Rx B-1] Patient History Medical History Alcohol abuse Anal dysplasia Anxiety AVM (arteriovenous malformation) brain Carotid stenosis "03/06/15-SAÚL occlusion, LICA with 50-59% stenosis" Chronic pain syndrome COPD (chronic obstructive pulmonary disease) Depression Dyslipidemia History of alcohol abuse History of CVA (cerebrovascular accident) "in setting of right carotid artery thrombosis" History of DVT (deep vein thrombosis) 09/2018 - started on Eliquis History of pulmonary embolism 12/2018 - in the setting of Eliquis use. Placed on Coumadin HIV (human immunodeficiency virus infection) Hypertension Migraine Neuropathic pain of both feet Polyp of colon (12/21/12) Seizure disorder Tobacco abuse Surgical History History of anal lesion History of colonoscopy Family History Father Lung cancer Mother Hypertension Social History Smoking Status: Current every day smoker Tobacco Type: Cigarettes Years Smoked: 45; Cigarettes Per Day: 10; Second Hand Exposure: No; Hx Alcohol Use: No Hx Substance Use: Yes Last Used Substance: Hours (ago) Last Used Substance Other:: Pain medications in the ED per patient reported. Preferred Language: Armenian Communication Ability: Effective Product Manufacturing Professional Required: No Beliefs That Will Affect Care: Restoration Restoration Beliefs: Ep[employer]opalian marital status: Current Living Situation: Alone Feels Safe at Home: Yes Safety Concerns: Feels Safe At This Time Assistive Devices: None Review of Systems Cardiovascular: as per Subjective / HPI Musculoskeletal: as per Subjective / HPI Neurologic: as per Subjective / HPI Physical Exam Constitutional: WD/WN, vitals as above Respiratory: normal respiratory effort; no respiratory distress Cardiovascular: Rate/Rhythm: regular rate and regular rhythm Vessels: femoral pulses present; + posterior tibial pulses abnormal and + dorsalis pedis pulses abnormal Extremities: normal capillary refill and + edema (mild left leg edema) mild erythema of the left lower leg. Skin of the left foot and lower leg is wrinkled with a small amount of superficial skin slough which does not appear to be acute. Good doppler signals of both DP and PT of both feet. Musculoskeletal: Extremities: + abnormal strength (left upper ext very weak, left lower extremity with no movement) Skin: + erythema (minimal of left lower leg) Neurologic: CN's II-XI intact bilaterally and + focal motor deficit (left sided weakness) Psychiatric: Orientation: alert and oriented x 3
--- NOTE | 2020-12-20 10:40 | History & Physical Report ---
Date of Service December 20, 2020 Assessment & Plan (1) Peripheral vascular disease: (2) History of DVT (deep vein thrombosis): This is a 53yo M with a PMH of CVA in August 2018 with residual L hemiplegia, HIV, carotid artery disease, COPD, anxiety, depression, neuropathy, tobacco use and other medical problems listed below who presents as a direct admission from [facility] for vascular surgery evaluation. Recent LLE cellulitis treated with Keflex with continued pain CTA abdomen with runoff revealed mild to moderate mural thrombus with infrarenal abdominal aortic aneurysm. Moderate atherosclerotic irregularity and mural thrombus intermittently in the iliofemoral system with occlusion of distal superficial femoral arteries extending into LLE Evaluated by vascular surgery - has a viable left lower extremity without signs of significant ischemia. Pain not felt to be associated with superficial femoral and iliac artery occlusive disease. No aggressive revascularization of LLE even if develops severe ischemia due to limited use Continue IV heparin Previously developed PE while on Eliquis. Has tolerated coumadin in the past but has been discontinued in 2020 due to fall risk and GI bleed - will need to assess benefit vs cost of sending home on anticoagulation (3) Neuropathic pain of both feet: Severe neuropathy in bilateral feet with worsened pain. Continue home oxycodone as needed and gabapentin (4) Cellulitis of left leg: Appearance of left lower extremity looks improved. Still with erythema but no warmth. Recently completed course of Keflex Afebrile, no leukocytosis, ESR 27, CRP 4, procalcitonin negative No indication for abx at this time Monitor CBC daily (5) Seizure disorder: Continue Keppra (6) HIV (human immunodeficiency virus infection): Continue darunivir, raltegravir, and ritonavir per home regimen Follows with [facility] (7) COPD (chronic obstructive pulmonary disease): Stable. Continue rescue inhaler as needed (8) Hypertension: Continue Toprol with hold parameters (9) Chronic pain syndrome: Continue PRN oxycodone 5mg Q6H PRN (per PDMP) and gabapentin Discussed avoiding additional narcotics with patient (10) Dyslipidemia: Continue statin. Monitor LFTs and CK due to interaction with HAART medications (11) History of alcohol abuse: Denies drinking for past 3 weeks. Serum etoh negative (12) Tobacco abuse: Nicotine patch ordered DVT Ppx: IV heparin Code status: FULL PCP: Jerrod Dispo: Admitted to PCU Patient seen in collaboration with Dr. Maier. Please see addendum. Admission and Anticipated Discharge Date Admission Date: December 20, 2020 History of Present Illness Chief Complaint: LLE cellulitis Primary Care Provider: Alexandr Elder, This is a 53yo M with a PMH of CVA in August 2018 with residual L hemiplegia, HIV, carotid artery disease, COPD, anxiety, depression, neuropathy, tobacco use and other medical problems listed below who presents as a direct admission from [facility] for vascular surgery evaluation. Had been admitted in [place] last week for LLE cellulitis and was discharged home on Keflex course, which he completed. Returned due to continued pain in L foot and CTA abdomen with runoff revealed mild to moderate Bales thrombus with infrarenal abdominal aortic aneurysm. Unable to find pulses with doppler at OSH and CTA abd with run off revealed moderate atherosclerotic irregularity and mural t hrombus intermittently in the iliofemoral system with occlusion of the distal superficial femoral arteries and popliteal arteries extending into the proximal left lower extremity runoff vessels. Was transferred to [facility] for vascular surgery evaluation on IV heparin drip. Denies any increased warmth or redness to the area but continues to have swelling and pain of left lower extremity. Has limited mobility of extremity due to hemiparesis from remote stroke. Also with significant neuropathy in extremity for over 3 years for which she takes gabapentin. Is also taking oxycodone for chronic pain syndrome. Denies any fever or chills. No chest pain, shortness of breath, nausea, vomiting, abdominal pain, dysuria, diarrhea or constipation. Resides at [facility] with limited home health, per patient. Ambulates by wheelchair. Patient very frustrated at this point with ongoing pain in left lower extremity. "I wish someone would just amputated because it is of no use to me." Is not on any oral anticoagulation. Did not receive any home medications this morning prior to transfer. Per PDMP, patient currently prescribed oxycodone 5 mg every 6 hours as needed and clonazepam 1 mg 3 times daily scheduled. Allergies Allergy/AdvReac Type Severity Reaction Status Date / Time azithromycin Allergy Severe rash/anaphy Verified 09/01/20 04:29 laxis Penicillins Allergy Severe ANAPHYLAXIS Verified 08/16/20 11:53 niacin Allergy Intermediate RASH Verified 08/16/20 11:53 Sulfa (Sulfonamide Allergy Intermediate "ITCHY Verified 08/16/20 11:53 Antibiotics) RASH" tramadol Allergy Mild RASH Verified 08/16/20 11:53 meloxicam AdvReac Intermediate GI SYMPTOMS Verified 08/16/20 11:53 shellfish derived AdvReac Intermediate gi symptoms Verified 08/16/20 11:53 topiramate AdvReac Intermediate NAUSEA Verified 08/16/20 11:53 lisinopril AdvReac Unknown cough Verified 09/01/20 04:29 Home Medications Medication Instructions Recorded Confirmed Type aspirin 81 mg PO QAM 06/08/18 12/20/20 History budesonide-formoterol [Symbicort] 2 puff INHALATION Q12H 06/08/18 12/20/20 History fluticasone propionate [Flonase 2 spray INTRANASAL QAM PRN 06/08/18 12/20/20 History Allergy Relief] folic acid 1 mg PO QAM 06/08/18 12/20/20 History furosemide [Lasix] 20 mg PO QAM PRN 06/08/18 12/20/20 History gabapentin [Neurontin] 800 mg PO TID 08/25/18 12/20/20 History ipratropium-albuterol 3 ml INHALATION Q4H PRN 10/04/18 12/20/20 History omeprazole 20 mg PO QAM 10/04/18 12/20/20 History albuterol sulfate [Ventolin HFA] 2 puff INHALATION Q4H PRN 11/14/18 12/20/20 History ondansetron 4 mg PO Q8H PRN 11/14/18 12/20/20 History Saccharomyces boulardii [Florastor] 250 mg PO BID #20 cap 11/15/18 12/20/20 Rx darunavir ethanolate 600 mg tablet 600 mg PO BIDM #180 tab 02/09/19 12/20/20 Rx raltegravir 400 mg tablet 400 mg PO BID #180 tab 02/09/19 12/20/20 Rx ritonavir 100 mg tablet 100 mg PO BID #180 tab 02/09/19 12/20/20 Rx metoprolol succinate [Toprol XL] 50 mg PO QAM 04/07/19 12/20/20 History duloxetine [Cymbalta] 60 mg PO QAM 05/21/19 12/20/20 History atorvastatin 80 mg PO HS 08/16/20 12/20/20 History levetiracetam 1,500 mg PO BID 08/16/20 12/20/20 History ramelteon 8 mg PO HS 08/16/20 12/20/20 History zaleplon 10 mg PO HS PRN 08/16/20 12/20/20 History clonazepam 1 mg PO TID #10 tab 09/11/20 12/20/20 Rx ibuprofen 600 mg PO Q8H PRN #10 tab 09/11/20 12/20/20 Rx oxycodone 5 mg PO Q6 PRN #10 tab 09/11/20 12/20/20 Rx polyethylene glycol 3350 [Miralax] 17 g PO DAILY PRN #14 ea 09/11/20 12/20/20 Rx thiamine HCl (vitamin B1) [Vitamin 100 mg PO QAM #30 tab 09/11/20 12/20/20 Rx B-1] Past Med/Surg History Medical History Alcohol abuse Anal dysplasia Anxiety AVM (arteriovenous malformation) brain Carotid stenosis "03/06/15-SAÚL occlusion, LICA with 50-59% stenosis" Chronic pain syndrome COPD (chronic obstructive pulmonary disease) Depression Dyslipidemia History of alcohol abuse History of CVA (cerebrovascular accident) "in setting of right carotid artery thrombosis" History of DVT (deep vein thrombosis) 09/2018 - started on Eliquis History of pulmonary embolism 12/2018 - in the setting of Eliquis use. Placed on Coumadin HIV (human immunodeficiency virus infection) Hypertension Migraine Neuropathic pain of both feet Polyp of colon (12/21/12) Seizure disorder Tobacco abuse Surgical History History of anal lesion History of colonoscopy Family History Father Lung cancer Mother Hypertension Social History Smoking Status: Current every day smoker Tobacco Type: Cigarettes Years Smoked: 45; Cigarettes Per Day: 10; Second Hand Exposure: No; Hx Alcohol Use: No Hx Substance Use: Yes Last Used Substance: Hours (ago) Last Used Substance Other:: Pain medications in the ED per patient reported. Preferred Language: Faroese Communication Ability: Effective Steward/Stewardess Bath Required: No Beliefs That Will Affect Care: Lutheran Lutheran Beliefs: Synagogue marital status: Current Living Situation: Alone Feels Safe at Home: Yes Safety Concerns: Feels Safe At This Time Assistive Devices: None Review of Systems Review of Systems: At least ten systems reviewed and negative except as noted in the HPI. Physical Exam Physical Exam: General Appearance: WD/WN, vitals as above, NAD, sitting up in bed, pleasant, conversing easily Head: normocephalic, atraumatic Eyes: normal inspection, PERRL, conjunctivae normal, anicteric sclerae ENT: external ear and nose normal, oropharynx normal Neck: normal visual inspection, trachea midline, no thyromegaly Respiratory: normal respiratory effort, lungs clear to auscultation, no wheeze, rales, rhonchi. No accessory muscle use Cardiovascular: regular rate, rhythm, no murmur, normal peripheral pulses, no BLE edema. Vessels: no JVD Chest: normal inspection of chest Abdomen/GI: normal bowel sounds, soft, nontender, no hepatosplenomegaly Extremities/Musculoskeletal: no cyanosis or clubbing. LLE with erythema and peeling of skin - no drainage, warmth to touch Neurologic: PERRL, EOMI, accommodation nl, no face palsy, no dysarthria, CN's II-XI intact bilaterally and moves R extremities spontaneously. L hemiplegia (known) Psychiatric: A+Ox3, euthymic affect Skin: no rashes, normal color, warm/dry Results & Data Results & Data ([facility]) Vital Signs (Past 12 Hours) Vital Signs Temp Pulse Pulse Resp BP Pulse Ox 12/20/20 10:38 96 H 12/20/20 10:19 36.6 C 99 H 20 144/95 H 96 Laboratory Results Short CBC 12/20/20 Range/Units 11:04 WBC 5.36 (4.8-10.8) K/uL Hgb 11.7 L (14.0-18.0) g/dL Hct 36.6 L (42-52) % Plt Count 316 (130-400) K/uL BMP 12/20/20 11:04 Sodium 138 Potassium 3.0 L Chloride 103 Carbon Dioxide 33 H BUN 6 L Creatinine 0.88 Glucose 111 H Calcium 8.9 Liver Function 12/20/20 Range/Units 11:04 Total Bilirubin 0.7 (0.2-1) mg/dl AST 61 H (15-37) U/L ALT 67 (12-78) U/L Alkaline Phosphatase 93 (45-117) U/L Albumin 2.9 L (3.4-5.0) gm/dl Diagnostic Findings Chest X-Ray 12/20/20 08:22 SINGLE VIEW CHEST CLINICAL HISTORY: Dyspnea. FINDINGS: An AP, portable, upright chest radiograph is compared to chest x-ray and chest CT dated 08/31/2020. The examination is degraded by portable technique and patient rotation. The cardiomediastinal silhouette is unremarkable. Emphysema and chronic interstitial thickening is similar to previous. There is diffuse coarsening of interstitium. No lobar consolidation or large pleural effusion is identified. Mild elevation of the left hemidiaphragm is chronic. No pneumothorax is seen. The skeletal structures are osteopenic. The bony thorax is grossly intact. IMPRESSION: 1. Emphysema. 2. There is diffuse thickening of the interstitium. This could represent fluid overload/congestive change versus a mild infectious/inflammatory pneumonitis. Clinical correlation will be required. ACT 112: Negative or not required by law. Electronically signed by: Nico Guerra M.D. 12/20/2020 11:11 AM ECG Rhythm: normal sinus Findings: + prolonged QT Change: no significant change Code Status & VTE Plan VTE Prophylaxis Plan VTE Prophylaxis will be ordered: Yes Supervising Physician Co-Signing Physician Notes History and physical exam obtained by me, as detailed by Thea Padron PA-C 53yo M with a PMH of CVA in August 2018 with residual L hemiplegia, HIV, carotid artery disease, COPD, anxiety, depression, neuropathy, tobacco use and other medical problems who presents as a direct admission from [facility] for vascular surgery evaluation for significant CTA findings. Patient currently complains of left leg pain which is chronic No fevers, chills, nausea vomiting. Physical exam notable for paralysis of left leg and paralysis of right upper extremity from old stroke, mild erythema left lower leg -Peripheral vascular disease -DVT/mural thrombus in infrarenal AAA and iliofemoral system -Recent left leg cellulitis. Patient had completed course of Keflex. Reports chronic left leg pain, bilateral paresthesiae, likely from peripheral vascular disease and neuropathy Still has mild erythema of the left leg. No open wounds, no tenderness Considering patient had completed antibiotic course and no signs of active infection for now, no leukocytosis/fever, etc; will hold off further antibiotics for now and monitor. Vascular surgery evaluation noted. CTA from transferring hospital reported mild to moderate mural thrombus with infrarenal abdominal aortic aneurysm. Moderate atherosclerotic irregularity and mural thrombus intermittently in the iliofemoral system with occlusion of distal superficial femoral arteries extending into LLE Continue IV heparin. Patient had previously had PE while on Eliquis but tolerated Coumadin in the past. Start coumadin. [facility] when stable for discharge. This will also help with routine INR checks as patient is concerned about getting that done due to being wheelchair bound Do heparin -coumadin bridge for now. (1) HIV (human immunodeficiency virus infection) HIV symptom status: unspecified Qualified Code(s): B20 - Human immunodeficiency virus [HIV] disease (2) Hypertension Hypertension type: essential hypertension Qualified Code(s): I10 - Essential (primary) hypertension
[2020-12-20] MEDS ORDERED: FLUTICASONE PROPIONATE NA SPR 16 GM BTL NAE PRN (11:00)
[2020-12-20] MEDS ORDERED: ALBUT/IPRATROP 3MG/0.5MG NEB 3 ML VIAL INH PRN (11:00)
[2020-12-20] MEDS ORDERED: ALBUTEROL HFA 8 GM INHALER INH PRN (11:00)
--- NOTE | 2020-12-20 11:12 | XRay Report ---
SINGLE VIEW CHEST CLINICAL HISTORY: Dyspnea. FINDINGS: An AP, portable, upright chest radiograph is compared to chest x-ray and chest CT dated 08/13. The examination is degraded by portable technique and patient rotation. The cardiomediastin al silhouette is unremarkable. Emphysema and chronic interstitial thickening is similar to previous. There is diffuse coarsening of interstitium. No lobar consolidation or large pleural effusion is iden tified. Mild elevation of the left hemidiaphragm is chronic. No pneumothorax is seen. The skeletal st ructures are osteopenic. The bony thorax is grossly intact. IMPRESSION: 1. Emphysema. 2. There is diffuse thickening of the interstitium. This could represent fluid overload/congestive ch flor versus a mild infectious/inflammatory pneumonitis. Clinical correlation will be required. ACT 112: Negative or not required by law. Electronically signed by: Nico Guerra M.D. 12/20/2020 11:11 AM
[2020-12-20 11:34] LABS: Basophils # (auto) 0.04 K/uL (0-0.2); Basophils % (auto) 0.7 %; Eosinophils % (auto) 7.5 %; Hematocrit (blood only) 36.6 % (42-52); Hemoglobin 11.7 g/dL (14.0-18.0); Immature Granulocytes # (auto) 0.05 K/uL (0.00-0.02); Immature Granulocytes % (auto) 0.9 %; Lymphocytes # (auto) 1.17 K/uL (1.2-3.4); Lymphocytes % (auto) 21.8 %; Mean Corpuscular Hemoglobin 25.6 pg (25-34); Mean Corpuscular Volume 80.1 fL (80-100); Mean Platelet Volume 9.7 fL (7.4-10.4); Monocytes # (auto) 1.04 K/uL (0.11-0.59); Monocytes % (auto) 19.4 %; Neutrophils # (auto) 2.66 K/uL (1.4-6.5); Neutrophils % (auto) 49.7 %; Platelet Count 316 K/uL (130-400); RDW Coefficient of Variation 16.5 % (11.5-14.5); RDW Standard Deviation 47.6 fL (36.4-46.3); Red Blood Count 4.57 M/uL (4.7-6.1); White Blood Count 5.36 K/uL (4.8-10.8)
[2020-12-20 11:52] LABS: Albumin Level 2.9 gm/dl (3.4-5.0); Calcium 8.9 mg/dl (8.5-10.1); Creatinine Clr Calc Pharmacy 102.9 ml/min; Est GFR (African American) 111.3 ml/min
[2020-12-20 11:56] LABS: Albumin Globulin Ratio 0.8 (0.9-2); Bilirubin,Total 0.7 mg/dl (0.2-1); C Reactive Protein 4.01 mg/dl (0-0.29); Globulin 3.7 gm/dl (2.5-4.0); INR 1.1 (0.9-1.1); Partial Thromboplastin Ratio 2.1; Prothrombin Time 11.1 Seconds (9.0-12.0); Total Protein 6.6 gm/dl (6.4-8.2)
[2020-12-20] MEDS: oxyCODONE HCL IR 5 MG TAB (IMMEDIATE RELEASE) PO PRN ×2 (11:59→21:54)
[2020-12-20] MEDS: levETIRAcetam 500 MG TAB PO SCH ×2 (12:00→21:47)
[2020-12-20 12:01] LABS: Partial Thromboplastin Time 55.9 Seconds (21.0-31.0)
[2020-12-20] MEDS: ASPIRIN 81 MG ECTAB PO SCH (12:02)
[2020-12-20] MEDS: DULoxetine HCL 60 MG CAP PO SCH (12:02)
[2020-12-20] MEDS: NICOTINE 21 MG/24 HR TDSY TD SCH (12:03)
[2020-12-20] MEDS: METOPROLOL SUCC 50MG EXT REL TAB PO SCH (12:03)
[2020-12-20] MEDS: GABAPENTIN 800 MG TAB PO SCH ×2 (12:03→21:46)
[2020-12-20] MEDS: RALTEGRAVIR POTASSIUM 400 MG PO SCH ×2 (12:04→21:46)
[2020-12-20] MEDS: DARUNAVIR ETHANOLATE 600 MG PO SCH ×2 (12:04→17:00)
[2020-12-20] MEDS: RITONAVIR 100 MG PO SCH ×2 (12:04→21:46)
[2020-12-20] MEDS ORDERED: POTASSIUM CHLORIDE CRTAB 20 MEQ TABCR PO STA (12:15)
[2020-12-20] MEDS ORDERED: Heparin IV Adult Wt-Based Standard *NO* Bolus Protocol IV ONE (12:18)
[2020-12-20] MEDS: HEPARIN SODIUM/DEXTROSE 25,000 UNITS/500 ML BAG IV SCH (13:19)
[2020-12-20] MEDS ORDERED: clonazePAM 1 MG TAB PO SCH (14:00)
[2020-12-20] MEDS: ACETAMINOPHEN 325 MG TAB PO PRN (14:58)
[2020-12-20] MEDS: RAMELTEON: ORDER AWAITING ACTION SCH (15:00)
[2020-12-20] MEDS: WARFARIN SOD 5 MG TAB PO SCH (18:21)
[2020-12-20 19:59] LABS: Partial Thromboplastin Ratio 1.9
[2020-12-20 20:27] LABS: Partial Thromboplastin Time 50.9 Seconds (21.0-31.0)
[2020-12-20] MEDS ORDERED: ZALEPLON 5 MG CAPSULE PO PRN (21:00)
[2020-12-20] MEDS ORDERED: levETIRAcetam 500 MG TAB PO SCH (21:00)
[2020-12-20] MEDS: ATORVASTATIN 40 MG TAB PO SCH (21:46)
[2020-12-20] MEDS: SACCHAROMYCES BOULARDII 250 MG CAP PO SCH (21:47)
[2020-12-20] MEDS: clonazePAM 1 MG TAB PO PRN (21:54)
[2020-12-21] MEDS: RAMELTEON: ORDER AWAITING ACTION SCH ×3 (03:55→15:14)
[2020-12-21] MEDS: oxyCODONE HCL IR 5 MG TAB (IMMEDIATE RELEASE) PO PRN ×2 (05:44→22:48)
[2020-12-21 06:05] LABS: Hematocrit (blood only) 35.1 % (42-52); Hemoglobin 11.3 g/dL (14.0-18.0); Mean Corpuscular Hemoglobin 25.7 pg (25-34); Mean Corpuscular Hgb Conc 32.2 g/dL (32-36); Mean Platelet Volume 9.5 fL (7.4-10.4); Platelet Count 280 K/uL (130-400); RDW Coefficient of Variation 16.6 % (11.5-14.5); RDW Standard Deviation 48.2 fL (36.4-46.3); Red Blood Count 4.39 M/uL (4.7-6.1); White Blood Count 4.38 K/uL (4.8-10.8)
[2020-12-21 06:21] LABS: Prothrombin Time 10.6 Seconds (9.0-12.0)
--- NOTE | 2020-12-21 06:45 | Electrocardiogram Report ---
Test Reason : Blood Pressure : / mmHG Vent. Rate : 100 BPM Atrial Rate : 100 BPM P-R Int : 176 ms QRS Dur : 108 ms QT Int : 392 ms P-R-T Axes : 048 -13 038 degrees QTc Int : 505 ms Normal sinus rhythm Incomplete right bundle branch block Prolonged QT Abnormal ECG When compared with ECG of 31-AUG-2020 17:52, No significant change was found Confirmed by Oscar Carty ([id number]) on 12/21/2020 6:44:32 AM Referred By: Oscar Rivas Confirmed By:Oscar Carty
[2020-12-21 06:48] LABS: BUN Creatinine Ratio 10.9 (10-20); Calcium 8.5 mg/dl (8.5-10.1); Creatinine Clr Calc Pharmacy 84.6 ml/min; Est GFR (African American) 89.5 ml/min; Est GFR (Non-African American) 77.2 ml/min; Potassium 3.5 mmol/L (3.5-5.1)
[2020-12-21] MEDS: RITONAVIR 100 MG PO SCH ×2 (07:43→20:13)
[2020-12-21] MEDS: ENOXAPARIN 100 MG/1ML SYR SQ SCH ×2 (07:43→20:09)
[2020-12-21] MEDS: RALTEGRAVIR POTASSIUM 400 MG PO SCH ×2 (07:43→20:17)
[2020-12-21] MEDS: clonazePAM 1 MG TAB PO PRN (07:43)
[2020-12-21] MEDS: DARUNAVIR ETHANOLATE 600 MG PO SCH ×2 (07:44→15:13)
[2020-12-21] MEDS: NICOTINE 21 MG/24 HR TDSY TD SCH (07:44)
[2020-12-21] MEDS: THIAMINE HCL 100 MG TAB PO SCH (07:44)
[2020-12-21] MEDS: FOLIC ACID 1 MG TAB PO SCH (07:45)
[2020-12-21] MEDS: ASPIRIN 81 MG ECTAB PO SCH (07:52)
[2020-12-21] MEDS: METOPROLOL SUCC 50MG EXT REL TAB PO SCH (07:52)
[2020-12-21] MEDS: DULoxetine HCL 60 MG CAP PO SCH (07:52)
[2020-12-21] MEDS: PANTOprazole 40 MG TAB PO SCH (07:54)
[2020-12-21] MEDS: GABAPENTIN 800 MG TAB PO SCH ×3 (07:54→20:14)
[2020-12-21] MEDS: FLUTICASONE/VILANTEROL 100/25MCG 14 PUFFS/INHALER INH SCH (07:56)
[2020-12-21] MEDS: levETIRAcetam 500 MG TAB PO SCH ×2 (07:56→20:14)
[2020-12-21] MEDS: SACCHAROMYCES BOULARDII 250 MG CAP PO SCH ×2 (07:56→20:14)
[2020-12-21] MEDS: HEPARIN SODIUM/DEXTROSE 25,000 UNITS/500 ML BAG IV SCH (08:18)
[2020-12-21] MEDS ORDERED: DULoxetine HCL 60 MG CAP PO SCH (09:00)
[2020-12-21] MEDS ORDERED: ASPIRIN 81 MG ECTAB PO SCH (09:00)
[2020-12-21] MEDS ORDERED: clonazePAM 0.5 MG TAB PO PRN (12:11)
--- NOTE | 2020-12-21 13:01 | Hospitalist Progress Note ---
Date of Service December 21, 2020 Assessment & Plan (1) Peripheral vascular disease: (2) History of DVT (deep vein thrombosis): 53yo M with a PMH of CVA in August 2018 with residual L hemiplegia, HIV, carotid artery disease, COPD, anxiety, depression, neuropathy, tobacco use and other medical problems listed below who presents as a direct admission from [facility] [address] for vascular surgery evaluation. Recent LLE cellulitis treated with Keflex with continued pain CTA abdomen with runoff revealed mild to moderate mural thrombus with infrarenal abdominal aortic aneurysm. Moderate atherosclerotic irregularity and mural thrombus intermittently in the iliofemoral system with occlusion of distal superficial femoral arteries extending into LLE Evaluated by vascular surgery - has a viable left lower extremity without signs of significant ischemia. Pain not felt to be associated with superficial femoral and iliac artery occlusive disease. No aggressive revascularization of LLE even if develops severe ischemia due to limited use Previously developed PE while on Eliquis. Has tolerated coumadin Discussed need for anticoagulation with patient. He agrees to proceed with anticoagulation but would prefer the Lovenox Coumadin bridge. We will continue this for now Monitor INR (3) Neuropathic pain of both feet: Severe neuropathy in bilateral feet with worsened pain. Continue home oxycodone as needed and gabapentin (4) Cellulitis of left leg: Appearance of left lower extremity looks improved. Recently completed course of Keflex Hold off on antibiotics at this time (5) Seizure disorder: Continue Keppra (6) HIV (human immunodeficiency virus infection): Continue darunivir, raltegravir, and ritonavir per home regimen Follows with [facility] (7) COPD (chronic obstructive pulmonary disease): Stable. Continue rescue inhaler as needed (8) Hypertension: Continue Toprol with hold parameters (9) Chronic pain syndrome: Continue PRN oxycodone 5mg Q6H PRN (per PDMP) and gabapentin Spoke with patient's sister over the phone. She reported that patient's chronic pain had been weaned down to 0.5 mg at bedtime as needed with him to discontinue eventually. I confirmed this with patient. Review of PDMP showed that patient had been getting 3 times daily dosing of Klonopin 1mg tabs, last filled on 11/28/2020. Sister reported that yes that PCP has been prescribing that but patient had been in intermediate from recent hospitalization and had been weaned down to 0.5mg at bedtime. RN did report patient being unusually drowsy with difficulty to arouse on klo nopin Will reduce to 0.5mg klonopin HS prn anxiety for now based on information provided by sister and confirmed by patient, especially with patient being on opioids as well. Goal is to get patient off this completely over time (10) Dyslipidemia: Continue statin. Monitor LFTs and CK due to interaction with HAART medications (11) History of alcohol abuse: Denies drinking for past 3 weeks. Serum etoh negative (12) Tobacco abuse: Nicotine patch ordered DVT Ppx: IV heparin Code status: FULL PCP: Jerrod Will discuss with Emeka on wednesday about possibility of getting patient on [facility] Home Admission and Anticipated Discharge Date Admission Date: December 20, 2020 Subjective 53yo M with a PMH of CVA in August 2018 with residual L hemiplegia, HIV, carotid artery disease, COPD, anxiety, depression, neuropathy, tobacco use and other medical problems who presents as a direct admission from [facility] [address] for vascular surgery evaluation for significant CTA findings. Overnight patient had remove IV line and declined IV heparin drip. [facility] had switched to Lovenox with Coumadin bridge which patient was okay with. Patient seen and examined this morning. Only complains of left leg pain which he states is improving Chronic left sided weakness from stroke Review of Systems Review of Systems: All systems reviewed & are unremarkable except as noted in Subjective Physical Exam Constitutional: + well hydrated; no acute distress Eyes: PERRL, conjunctivae normal, anicteric sclerae ENMT: external ear and nose normal, oropharynx normal Respiratory: normal respiratory effort, lungs clear to auscultation Cardiovascular: Rate/Rhythm: regular rate and regular rhythm S1-S2. No pedal edema Gastrointestinal (Abdomen): normal bowel sounds, soft, nontender, no hepatosplenomegaly Musculoskeletal: No movements in left lower extremity. Power is significantly reduced to 3/5 in left upper extremity Mild erythema left lower leg. No tenderness Neurologic: PERRL, EOMI, accommodation nl, no face palsy, no dysarthria Psychiatric: A+Ox3, euthymic affect Results & Data Results & Data ([facility]) Vital Signs (Past 12 Hours) Vital Signs Temp Pulse Pulse Pulse Resp BP BP 12/21/20 11:36 36.4 C L 91 H 12 87/53 L 12/21/20 08:00 84 07/10/21 07:18 36.6 C 81 13 87/53 L 12/21/20 03:07 36.6 C 85 17 106/69 Pulse Ox 12/21/20 11:36 90 12/21/20 08:00 12/21/20 07:18 92 12/21/20 03:07 92 Laboratory Results Abnormal lab results 12/20/20 12/20/20 12/20/20 Range/Units 16:29 19:29 20:36 WBC (4.8-10.8) K/uL RBC (4.7-6.1) M/uL Hgb (14.0-18.0) g/dL Hct (42-52) % RDW Std Deviation (36.4-46.3) fL RDW Coeff of Tanesha (11.5-14.5) % APTT 50.9 H* (21.0-31.0) Seconds Carbon Dioxide (21-32) mmol/L Anion Gap (3-11) Glucose (70-99) mg/dl POC Glucose 149 H 162 H (70-99) mg/dl 12/21/20 12/21/20 Range/Units 05:38 05:38 WBC 4.38 L (4.8-10.8) K/uL RBC 4.39 L (4.7-6.1) M/uL Hgb 11.3 L (14.0-18.0) g/dL Hct 35.1 L (42-52) % RDW Std Deviation 48.2 H (36.4-46.3) fL RDW Coeff of Tanesha 16.6 H (11.5-14.5) % APTT (21.0-31.0) Seconds Carbon Dioxide 33 H (21-32) mmol/L Anion Gap 1.0 L (3-11) Glucose 107 H (70-99) mg/dl POC Glucose (70-99) mg/dl (1) HIV (human immunodeficiency virus infection) HIV symptom status: unspecified Qualified Code(s): B20 - Human immunodeficiency virus [HIV] disease (2) Hypertension Hypertension type: essential hypertension Qualified Code(s): I10 - Essential (primary) hypertension
--- NOTE | 2020-12-21 14:16 | Psychiatric Consultation ---
Date of Consultation December 21, 2020 Impression / Recommendations Impression 55-year-old male with history of depression and anxiety who presents to psychiatric consult team after making a suicidal statement. Patient now denying any SI, stating that he made the statement out of frustration. No acute symptoms seen on interview. Recommendations: No changes to medication regimen at this time Psychiatric liaison team to follow-up and confirm outpatient appointments Psych History Chief Complaint "I am okay". History of Present Illness As per psychiatric liaison" Rounded on patient for initial assessment per consult for Suicidal statement. He was a psychiatric consult in August 2020 for depression and anxiety. Medication adjustments were made at that time, along with outpatient services. He denied SI at that time. He presents to [facility] with continuation of health issues, and reports increased frustration. He was alert and oriented, and cooperative during interview. He did appear drowsy with appropriate responses to questions. He reports living alone in an apartment in [facility], and has outpatient mental health psychiatry in [place]. He was unable to recall name of provider, states "I think it's in the hospital". He denies having any therapy at this time. He has only had visits via phone with psychiatrist, and reports that he will be seen in person soon. He reports being frustrated with lack of transportation to appointments through [facility] in [facility]. He denies any SI/HI, states "I'm just frustrated, I've been doing all this myself." He does report that medication compliance, and reports taking Remeron for sleep and has been working well. He denies any family history of mental health issues. He denies any ETOH use, does use medical marijuana. Denies any access to guns or weapons. He identifies his support as his family. He is willing to sign NATE for outpatient psych provider. He reports that he is to have an intake for in home jeff providers on Wednesday. He was unable to recall name of the service at this time. Pt. signed NATE for [facility]. Our service will attempt to confirm appointment on the next business day." Upon evaluation this afternoon, patient endorsed the above information is accurate. He denies any acute psychiatric needs. He denies any suicidal ideation. He denies any hallucinations or rose. Patient reports that his time in the hospital thus far has been okay and he states that he is grateful for the care and open to procedures as deemed necessary. Allergies Allergy/AdvReac Type Severity Reaction Status Date / Time azithromycin Allergy Severe rash/anaphy Verified 09/01/20 04:29 laxis Penicillins Allergy Severe ANAPHYLAXIS Verified 08/16/20 11:53 niacin Allergy Intermediate RASH Verified 08/16/20 11:53 Sulfa (Sulfonamide Allergy Intermediate "ITCHY Verified 08/16/20 11:53 Antibiotics) RASH" tramadol Allergy Mild RASH Verified 08/16/20 11:53 meloxicam AdvReac Intermediate GI SYMPTOMS Verified 08/16/20 11:53 shellfish derived AdvReac Intermediate gi symptoms Verified 08/16/20 11:53 topiramate AdvReac Intermediate NAUSEA Verified 08/16/20 11:53 lisinopril AdvReac Unknown cough Verified 09/01/20 04:29 Home Medications Medication Instructions Recorded Confirmed Type aspirin 81 mg PO QAM 06/08/18 12/20/20 History budesonide-formoterol [Symbicort] 2 puff INHALATION Q12H 06/08/18 12/20/20 His tory fluticasone propionate [Flonase 2 spray INTRANASAL QAM PRN 06/08/18 12/20/20 History Allergy Relief] folic acid 1 mg PO QAM 06/08/18 12/20/20 History furosemide [Lasix] 20 mg PO QAM PRN 06/08/18 12/20/20 History gabapentin [Neurontin] 800 mg PO TID 08/25/18 12/20/20 History ipratropium-albuterol 3 ml INHALATION Q4H PRN 10/04/18 12/20/20 History omeprazole 20 mg PO QAM 10/04/18 12/20/20 History albuterol sulfate [Ventolin HFA] 2 puff INHALATION Q4H PRN 11/14/18 12/20/20 History ondansetron 4 mg PO Q8H PRN 11/14/18 12/20/20 History Saccharomyces boulardii [Florastor] 250 mg PO BID #20 cap 11/15/18 12/20/20 Rx darunavir ethanolate 600 mg tablet 600 mg PO BIDM #180 tab 02/09/19 12/20/20 Rx raltegravir 400 mg tablet 400 mg PO BID #180 tab 02/09/19 12/20/20 Rx ritonavir 100 mg tablet 100 mg PO BID #180 tab 02/09/19 12/20/20 Rx metoprolol succinate [Toprol XL] 50 mg PO QAM 04/07/19 12/20/20 History duloxetine [Cymbalta] 60 mg PO QAM 05/21/19 12/20/20 History atorvastatin 80 mg PO HS 08/16/20 12/20/20 History levetiracetam 1,500 mg PO BID 08/16/20 12/20/20 History ramelteon 8 mg PO HS 08/16/20 12/20/20 History zaleplon 10 mg PO HS PRN 08/16/20 12/20/20 History clonazepam 1 mg PO TID #10 tab 09/11/20 12/20/20 Rx ibuprofen 600 mg PO Q8H PRN #10 tab 09/11/20 12/20/20 Rx oxycodone 5 mg PO Q6 PRN #10 tab 09/11/20 12/20/20 Rx polyethylene glycol 3350 [Miralax] 17 g PO DAILY PRN #14 ea 09/11/20 12/20/20 Rx thiamine HCl (vitamin B1) [Vitamin 100 mg PO QAM #30 tab 09/11/20 12/20/20 Rx B-1] Personal History Beliefs That Will Affect Care: Yazidism Patient History Medical History Alcohol abuse Anal dysplasia Anxiety AVM (arteriovenous malformation) brain Carotid stenosis "03/06/15-SAÚL occlusion, LICA with 50-59% stenosis" Chronic pain syndrome COPD (chronic obstructive pulmonary disease) Depression Dyslipidemia History of alcohol abuse History of CVA (cerebrovascular accident) "in setting of right carotid artery thrombosis" History of DVT (deep vein thrombosis) 09/2018 - started on Eliquis History of pulmonary embolism 12/2018 - in the setting of Eliquis use. Placed on Coumadin HIV (human immunodeficiency virus infection) Hypertension Migraine Neuropathic pain of both feet Polyp of colon (12/21/12) Seizure disorder Tobacco abuse Surgical History History of anal lesion History of colonoscopy Family History Father Lung cancer Mother Hypertension Social History Smoking Status: Current every day smoker Tobacco Type: Cigarettes Years Smoked: 45; Cigarettes Per Day: 10; Second Hand Exposure: No; Hx Alcohol Use: No Hx Substance Use: Yes Last Used Substance: Hours (ago) Last Used Substance Other:: Pain medications in the ED per patient reported. Preferred Language: Bulgarian Communication Ability: Effective Educational Fundraising Director Required: No Beliefs That Will Affect Care: Yazidism Yazidism Beliefs: Baptism marital status: Current Living Situation: Alone Feels Safe at Home: Yes Safety Concerns: Feels Safe At This Time Assistive Devices: None Physical Exam Psychiatric: Orientation: alert Apperance: appropriately groomed Eye Contact: + fair eye contact Motor Behavior: no abnormal motor movements Speech: normal rate/rhythm/volume of speech Affect: + constricted affect Mood: no depressed mood and no anxious mood Thought Process: goal directed thought process Thought Content: reality based without delusions Suicidal Thoughts: denies suicidal thoughts Homicidal Thoughts: denies homicidal thoughts Hallucinations: no auditory hallucinations and no gustatory hallucinations Cognition: recent memory grossly intact Estimated Intelligence: consistent with education level Insight: + fair insight Judgement: + fair judgement Vital Signs (Past 24 Hours): Last Vital Signs Temp 36.4 C L 12/21/20 11:36 Pulse 91 H 12/21/20 11:36 Resp 12 12/21/20 11:36 BP 87/53 L 12/21/20 11:36 Pulse Ox 90 12/21/20 11:36 Review of Systems All systems reviewed & are unremarkable except as noted in HPI & below Results & Data (PSY) Medications Administered Acetaminophen (Acetaminophen 325 Mg Tab) 650 mg PO Q4H PRN PRN Reason: Pain or Fever Stop: 01/19/21 08:21 Last Admin: 12/20/20 14:58 Dose: 650 mg Documented by: [id number] Aspirin (Aspirin 81 Mg Ectab) [facility] Stop: 01/19/21 11:39 Last Admin: 12/21/20 07:52 Dose: 81 mg Documented by: [id number] Admin: 12/20/20 12:02 Dose: 81 mg Documented by: [id number] Atorvastatin Calcium (Atorvastatin 40 Mg Tab) 80 mg PO [facility] Stop: 01/19/21 20:59 Last Admin: 12/20/20 21:46 Dose: 80 mg Documented by: [id number] Darunavir (Pt Own Med - Darunavir Ethanolate 600 Mg Tab) 600 mg PO BIDM [facility] Stop: 01/19/21 11:39 Last Admin: 12/21/20 07:44 Dose: 600 mg Documented by: [id number] Admin: 12/20/20 17:00 Dose: 600 mg Documented by: [id number] Admin: 12/20/20 12:04 Dose: 600 mg Documented by: [id number] Duloxetine HCl (Duloxetine Hcl 60 Mg Cap) 60 mg PO QAM [facility] Stop: 01/19/21 11:39 Last Admin: 12/21/20 07:52 Dose: 60 mg Documented by: [id number] Admin: 12/20/20 12:02 Dose: 60 mg Documented by: [id number] Enoxaparin Sodium (Enoxaparin 100 Mg/1ml Syr) 90 mg SQ Q12H [facility] Stop: 01/20/21 06:59 Last Admin: 12/21/20 07:43 Dose: 90 mg Documented by: [id number] Fluticasone/Vilanterol (Fluticasone/Vilanterol 100/25mcg 14 Puffs/Inhaler) 1 puffs INH DAILY [facility] Stop: 01/20/21 08:59 Last Admin: 12/21/20 07:56 Dose: 1 puffs Documented by: [id number] Folic Acid (Folic Acid 1 Mg Tab) 1 mg PO QAM [facility] Stop: 01/20/21 08:59 Last Admin: 12/21/20 07:45 Dose: 1 mg Documented by: [id number] Gabapentin (Gabapentin 800 Mg Tab) 800 mg PO TID [facility] Stop: 01/19/21 11:59 Last Admin: 12/21/20 07:54 Dose: 800 mg Documented by: [id number] Admin: 12/20/20 21:46 Dose: 800 mg Documented by: [id number] Admin: 12/20/20 12:03 Dose: 800 mg Documented by: [id number] Levetiracetam (Levetiracetam 500 Mg Tab) 1,500 mg PO BID [facility] Stop: 01/19/21 11:39 Last Admin: 12/21/20 07:56 Dose: 1,500 mg Documented by: [id number] Admin: 12/20/20 21:47 Dose: 1,500 mg Documented by: [id number] Admin: 12/20/20 12:00 Dose: 1,500 mg Documented by: [id number] Metoprolol Succinate (Metoprolol Succ 50mg Ext Rel Tab) [facility] Stop: 01/19/21 11:44 Last Admin: 12/21/20 07:52 Dose: Not Given Documented by: [id number] Admin: 12/20/20 12:03 Dose: 50 mg Documented by: [id number] Miscellaneous (Ramelteon: Order Awaiting Action) 1 ea N/A QS [facility] Stop: 01/19/21 15:59 Last Admin: 12/21/20 07:57 Dose: Not Given Documented by: [id number] Admin: 12/21/20 03:55 Dose: Not Given Documented by: [id number] Admin: 12/20/20 15:00 Dose: Not Given Documented by: [id number] Miscellaneous (Remove Nicoderm Patch) 1 ea N/A DAILY@0859 [facility] Stop: 01/20/21 08:58 Last Admin: 12/21/20 07:57 Dose: 1 ea Documented by: [id number] Nicotine (Nicotine 21 Mg/24 Hr Tdsy) 21 mg TD [facility] Stop: 01/19/21 11:44 Last Admin: 12/21/20 07:44 Dose: 21 mg Documented by: [id number] Admin: 12/20/20 12:03 Dose: 21 mg Documented by: [id number] Oxycodone HCl (Oxycodone Hcl Ir 5 Mg Tab (Immediate Release)) 5 mg PO Q6 PRN PRN Reason: pain Stop: 01/03/21 11:04 Last Admin: 12/21/20 05:44 Dose: 5 mg Documented by: [id number] Admin: 12/20/20 21:54 Dose: 5 mg Documented by: [id number] Admin: 12/20/20 11:59 Dose: 5 mg Documented by: [id number] Pantoprazole Sodium (Pantoprazole 40 Mg Tab) [facility] Stop: 01/20/21 08:59 Last Admin: 12/21/20 07:54 Dose: 40 mg Documented by: [id number] Raltegravir (Pt Own Med - Raltegravir Potassium 400 Mg Tab) 400 mg PO BID [facility] Stop: 01/19/21 11:44 Last Admin: 12/21/20 07:43 Dose: 400 mg Documented by: [id number] Admin: 12/20/20 21:46 Dose: 400 mg Documented by: [id number] Admin: 12/20/20 12:04 Dose: 400 mg Documented by: [id number] Ritonavir (Pt Own Med - Ritonavir 100 Mg Tab) 100 mg PO BID [facility] Stop: 01/19/21 11:44 Last Admin: 12/21/20 07:43 Dose: 100 mg Documented by: [id number] Admin: 12/20/20 21:46 Dose: 100 mg Documented by: [id number] Admin: 12/20/20 12:04 Dose: 100 mg Documented by: [id number] Saccharomyces Boulardii (Saccharomyces Boulardii 250 Mg Cap) 250 mg PO BID [facility] Stop: 01/19/21 20:59 Last Admin: 12/21/20 07:56 Dose: 250 mg Documented by: [id number] Admin: 12/20/20 21:47 Dose: 250 mg Documented by: [id number] Thiamine HCl (Thiamine Hcl 100 Mg Tab) 100 mg PO QAM [facility] Stop: 01/20/21 08:59 Last Admin: 12/21/20 07:44 Dose: 100 mg Documented by: [id number] Warfarin Sodium (Warfarin Sod 5 Mg Tab) 5 mg PO DAILY@1600 [facility] Stop: 01/19/21 17:59 Last Admin: 12/20/20 18:21 Dose: 5 mg Documented by: [id number] Zaleplon (Zaleplon 5 Mg Capsule) 10 mg PO HS PRN PRN Reason: Insomnia Stop: 01/19/21 20:59 Last Admin: 12/20/20 22:10 Dose: 10 mg Documented by: [id number] Coding Level of Care Code 09107 [facility] Lvl 2
[2020-12-21] MEDS: WARFARIN SOD 5 MG TAB PO SCH (15:14)
[2020-12-21] MEDS: ATORVASTATIN 40 MG TAB PO SCH (20:14)
[2020-12-22] MEDS: RAMELTEON: ORDER AWAITING ACTION SCH ×3 (00:38→15:46)
[2020-12-22] MEDS: ENOXAPARIN 100 MG/1ML SYR SQ SCH ×2 (06:32→19:39)
[2020-12-22] MEDS: ACETAMINOPHEN 325 MG TAB PO PRN (06:33)
[2020-12-22] MEDS: FLUTICASONE/VILANTEROL 100/25MCG 14 PUFFS/INHALER INH SCH (07:30)
[2020-12-22] MEDS: RITONAVIR 100 MG PO SCH ×2 (07:31→19:43)
[2020-12-22] MEDS: DARUNAVIR ETHANOLATE 600 MG PO SCH ×2 (07:31→15:45)
[2020-12-22] MEDS: RALTEGRAVIR POTASSIUM 400 MG PO SCH ×2 (07:31→19:42)
[2020-12-22] MEDS: DULoxetine HCL 60 MG CAP PO SCH (07:32)
[2020-12-22] MEDS: FOLIC ACID 1 MG TAB PO SCH (07:32)
[2020-12-22] MEDS: SACCHAROMYCES BOULARDII 250 MG CAP PO SCH ×2 (07:32→19:43)
[2020-12-22] MEDS: ASPIRIN 81 MG ECTAB PO SCH (07:32)
[2020-12-22] MEDS: GABAPENTIN 800 MG TAB PO SCH ×3 (07:33→19:41)
[2020-12-22] MEDS: levETIRAcetam 500 MG TAB PO SCH ×2 (07:33→19:42)
[2020-12-22] MEDS: PANTOprazole 40 MG TAB PO SCH (07:33)
[2020-12-22] MEDS: METOPROLOL SUCC 50MG EXT REL TAB PO SCH (07:34)
[2020-12-22] MEDS: THIAMINE HCL 100 MG TAB PO SCH (07:34)
[2020-12-22] MEDS: NICOTINE 21 MG/24 HR TDSY TD SCH (07:35)
[2020-12-22 07:40] LABS: Hematocrit (blood only) 34.2 % (42-52); Hemoglobin 10.8 g/dL (14.0-18.0); Mean Corpuscular Hemoglobin 25.4 pg (25-34); Mean Corpuscular Hgb Conc 31.6 g/dL (32-36); Mean Corpuscular Volume 80.5 fL (80-100); Mean Platelet Volume 9.9 fL (7.4-10.4); Platelet Count 292 K/uL (130-400); RDW Coefficient of Variation 16.8 % (11.5-14.5); RDW Standard Deviation 49.2 fL (36.4-46.3); Red Blood Count 4.25 M/uL (4.7-6.1); White Blood Count 5.04 K/uL (4.8-10.8)
[2020-12-22 07:48] LABS: INR 1.1 (0.9-1.1); Prothrombin Time 11.5 Seconds (9.0-12.0)
[2020-12-22 07:55] LABS: Calcium 8.8 mg/dl (8.5-10.1); Creatinine Clr Calc Pharmacy 94.3 ml/min; Potassium 3.9 mmol/L (3.5-5.1)
[2020-12-22] MEDS: oxyCODONE HCL IR 5 MG TAB (IMMEDIATE RELEASE) PO PRN ×3 (11:02→23:19)
--- NOTE | 2020-12-22 13:29 | Hospitalist Progress Note ---
Date of Service December 22, 2020 Assessment & Plan (1) Aortic mural thrombus: (2) Peripheral vascular disease: (3) History of DVT (deep vein thrombosis): 53yo M with a PMH of CVA in August 2018 with residual L hemiplegia, HIV, carotid artery disease, COPD, anxiety, depression, neuropathy, tobacco use and other medical problems listed below who presents as a direct admission from [facility] for vascular surgery evaluation. Recent LLE cellulitis treated with Keflex CTA abdomen with runoff revealed mild to moderate mural thrombus with infrarenal abdominal aortic aneurysm. Moderate atherosclerotic irregularity and mural thrombus intermittently in the iliofemoral system with occlusion of distal superficial femoral arteries extending into LLE Evaluated by vascular surgery - has a viable left lower extremity without signs of significant ischemia. Pain not felt to be associated with superficial femoral and iliac artery occlusive disease. No aggressive revascularization of LLE even if develops severe ischemia due to limited use Previously developed PE while on Eliquis. Has tolerated coumadin Patient had declined heparin and removed his IV. Heparin drip was discontinued. Currently on lovenox - coumadin bridge INR is still subtherapeutic today at 1.1 Give 7.5mg warfarin today and continue 5mg daily tomorrow. Continue lovenox and monitor INR (4) Neuropathic pain of both feet: Severe neuropathy in bilateral feet with worsened pain. Continue home oxycodone as needed and gabapentin (5) Cellulitis of left leg: Appearance of left lower extremity looks improved. Recently completed course of Keflex (6) Seizure disorder: Continue Keppra (7) HIV (human immunodeficiency virus infection): Continue darunivir, raltegravir, and ritonavir per home regimen Follows with [facility] (8) COPD (chronic obstructive pulmonary disease): Stable. Continue rescue inhaler as needed (9) Hypertension: Continue Toprol with hold parameters (10) Chronic pain syndrome: Continue PRN oxycodone 5mg Q6H PRN (per PDMP) and gabapentin On 12/21/20, I spoke with patient's sister over the phone. She reported that patient's chronic pain had been weaned down to 0.5 mg at bedtime as needed with him to discontinue eventually. I confirmed this with patient. Review of PDMP showed that patient had been getting 3 times daily dosing of Klonopin 1mg tabs, last filled on 11/28/2020. Sister reported that yes that PCP has been prescribing that but patient had been in [facility] from recent hospitalization and had been weaned down to 0.5mg at bedtime. RN did report patient being unusually drowsy with difficulty to arouse on klonopin Klonopin was reduced to 0.5mg klonopin HS prn anxiety for now based on information provided by sister and confirmed by patient, especially with patient being on opioids as well. Goal is to get patient off this completely over time (11) Dyslipidemia: Continue statin. Monitor LFTs and CK due to interaction with HAART medications (12) History of alcohol abuse: Denies drinking for past 3 weeks. Serum etoh negative (13) Tobacco abuse: Nicotine patch ordered DVT Ppx: Lovenox-warfarin bridge Code status: FULL PCP: Jerrod Will discuss with Emeka on wednesday about possibility of getting patient on [facility] Admission and Anticipated Discharge Date Admission Date: December 20, 2020 Subjective 53yo M with a PMH of CVA in August 2018 with residual L hemiplegia, HIV, carotid artery disease, COPD, anxiety, depression, neuropathy, tobacco use and other medical problems who presents as a direct admission from [facility] for vascular surgery evaluation for significant CTA findings. Patient was initially on heparin - coumadin bridge but declined heparin drip 2 nights ago and was switched to lovenox - coumadin bridge Patient seen and examined this morning. Complains of left leg pain. Reports this is improved compared to admission Chronic left sided weakness from stroke Review of Systems Review of Systems: All systems reviewed & are unremarkable except as noted in Subjective Physical Exam Constitutional: + well hydrated; no acute distress Eyes: PERRL, conjunctivae normal, anicteric sclerae ENMT: external ear and nose normal, oropharynx normal Respiratory: normal respiratory effort, lungs clear to auscultation Cardiovascular: Rate/Rhythm: regular rate and regular rhythm Gastrointestinal (Abdomen): normal bowel sounds, soft, nontender, no hepatosplenomegaly Neurologic: PERRL, EOMI, accommodation nl, no face palsy, no dysarthria Psychiatric: A+Ox3, euthymic affect Results & Data Results & Data ([facility]) Vital Signs (Past 12 Hours) Vital Signs Temp Pulse Pulse Resp BP Pulse Ox 12/22/20 08:00 89 12/22/20 07:40 36.5 C 83 16 115/80 95 12/22/20 02:56 36.5 C 90 16 120/72 92 Laboratory Results Abnormal lab results 12/21/20 12/22/20 12/22/20 Range/Units 21:40 07:15 07:15 RBC 4.25 L (4.7-6.1) M/uL Hgb 10.8 L (14.0-18.0) g/dL Hct 34.2 L (42-52) % MCHC 31.6 L (32-36) g/dL RDW Std Deviation 49.2 H (36.4-46.3) fL RDW Coeff of Tanesha 16.8 H (11.5-14.5) % Anion Gap 2.0 L (3-11) Glucose 131 H (70-99) mg/dl POC Glucose 155 H (70-99) mg/dl (1) HIV (human immunodeficiency virus infection) HIV symptom status: unspecified Qualified Code(s): B20 - Human immunodeficiency virus [HIV] disease (2) Hypertension Hypertension type: essential hypertension Qualified Code(s): I10 - Essential (primary) hypertension
[2020-12-22] MEDS ORDERED: WARFARIN SOD 7.5 MG TAB PO ONE (16:00)
[2020-12-22] MEDS: ATORVASTATIN 40 MG TAB PO SCH (19:40)
[2020-12-23] MEDS: RAMELTEON: ORDER AWAITING ACTION SCH ×3 (01:15→17:34)
[2020-12-23 07:07] LABS: Hematocrit (blood only) 35.1 % (42-52); Mean Corpuscular Hemoglobin 25.2 pg (25-34); Mean Corpuscular Hgb Conc 31.3 g/dL (32-36); Mean Corpuscular Volume 80.3 fL (80-100); Mean Platelet Volume 10.2 fL (7.4-10.4); Nucleated RBC # (auto) 0.02 K/uL (0-0); Nucleated RBC % (auto) 0.3 %; Platelet Count 277 K/uL (130-400); RDW Coefficient of Variation 16.8 % (11.5-14.5); RDW Standard Deviation 49.1 fL (36.4-46.3); Red Blood Count 4.37 M/uL (4.7-6.1); White Blood Count 6.66 K/uL (4.8-10.8)
[2020-12-23 07:15] LABS: INR 1.7 (0.9-1.1); Prothrombin Time 16.2 Seconds (9.0-12.0)
[2020-12-23 07:37] LABS: BUN Creatinine Ratio 12.2 (10-20); Calcium 8.7 mg/dl (8.5-10.1); Creatinine Clr Calc Pharmacy 87.1 ml/min; Est GFR (African American) 92.6 ml/min; Est GFR (Non-African American) 79.9 ml/min; Potassium 4.2 mmol/L (3.5-5.1)
[2020-12-23] MEDS: DARUNAVIR ETHANOLATE 600 MG PO SCH ×2 (08:17→16:13)
--- NOTE | 2020-12-23 08:17 | Hospitalist Progress Note ---
Date of Service December 23, 2020 Assessment & Plan (1) Aortic mural thrombus: (2) Peripheral vascular disease: (3) History of DVT (deep vein thrombosis): 53yo M with a PMH of CVA in August 2018 with residual L hemiplegia, HIV, carotid artery disease, COPD, anxiety, depression, neuropathy, tobacco use and other medical problems listed below who presents as a direct admission from [facility] for vascular surgery evaluation. Recent LLE cellulitis treated with Keflex CTA abdomen with runoff revealed mild to moderate mural thrombus with infrarenal abdominal aortic aneurysm. Moderate atherosclerotic irregularity and mural thrombus intermittently in the iliofemoral system with occlusion of distal superficial femoral arteries extending into LLE Evaluated by vascular surgery - has a viable left lower extremity without signs of significant ischemia. Pain not felt to be associated with superficial femoral and iliac artery occlusive disease. No aggressive revascularization of LLE even if develops severe ischemia due to limited use Previously developed PE while on Eliquis. Has tolerated coumadin Patient had declined heparin and removed his IV. Heparin drip was discontinued. Currently on lovenox - coumadin bridge INR is still subtherapeutic today Given 7.5mg warfarin yesterday and now continued on 5mg daily. Continue lovenox and monitor INR (4) Neuropathic pain of both feet: Severe neuropathy in bilateral feet with worsened pain. Continue home oxycodone as needed and gabapentin (5) Cellulitis of left leg: Appearance of left lower extremity looks improved. Recently completed course of Keflex (6) Seizure disorder: Continue Keppra (7) HIV (human immunodeficiency virus infection): Continue darunivir, raltegravir, and ritonavir per home regimen Follows with [facility] (8) COPD (chronic obstructive pulmonary disease): Stable. Continue rescue inhaler as needed (9) Hypertension: Continue Toprol with hold parameters (10) Chronic pain syndrome: Continue PRN oxycodone 5mg Q6H PRN (per PDMP) and gabapentin On 12/21/20, previous hospitalist spoke with patient's sister over the phone. She reported that patient's chronic pain had been weaned down to 0.5 mg at bedtime as needed with him to discontinue eventually. I confirmed this with patient. Review of PDMP showed that patient had been getting 3 times daily dosing of Klonopin 1mg tabs, last filled on 11/28/2020. Sister reported that yes that PCP has been prescribing that but patient had been in custodial from recent hospitalization and had been weaned down to 0.5mg at bedtime. RN did report patient being unusually drowsy with difficulty to arouse on klonopin Klonopin was reduced to 0.5mg klonopin HS prn anxiety for now based on information provided by sister and confirmed by patient, especially with patient being on opioids as well. Goal is to get patient off this completely over time (11) Dyslipidemia: Continue statin. Monitor LFTs and CK due to interaction with HAART medications (12) History of alcohol abuse: Denies drinking for past 3 weeks. Serum etoh negative (13) Tobacco abuse: Nicotine patch ordered DVT Ppx: Lovenox-warfarin bridge Code status: FULL PCP: Dr. Elder Admission and Anticipated Discharge Date Admission Date: December 20, 2020 Subjective Patient seen in follow-up of mild to moderate mural thrombus with infrarenal abdominal aortic aneurysm. Moderate atherosclerotic irregularity and mural thrombus intermittently in the iliofemoral system with occlusion of distal superficial femoral arteries extending into LLE - left lower extremity pain Sitting up in bed, in no acute distress, however he does complain of lower extremity pain no fevers, chills, chest pain, shortness of breath INR subtherapeutic Review of Systems Review of Systems: All systems reviewed & are unremarkable except as noted in HPI & below Constitutional: no fever and no chills Respiratory: no cough and no dyspnea Cardiovascular: no chest pain and no palpitations Gastrointestinal: no abdominal pain, no nausea and no vomiting Physical Exam Physical Exam: Constitutional: Chronically ill-appearing male; no acute distress Eyes: PERRL, conjunctivae normal, anicteric sclerae ENMT: external ear and nose normal, oropharynx normal Respiratory: normal respiratory effort, lungs clear to auscultation Cardiovascular: Rate/Rhythm: regular rate and regular rhythm Gastrointestinal (Abdomen): normal bowel sounds, soft, nontender Neurologic: PERRL, EOMI, no face palsy, no dysarthria Psychiatric: A+Ox3, euthymic affect Results & Data Results & Data ([facility]) Vital Signs (Past 12 Hours) Vital Signs Temp Pulse Resp BP Pulse Ox 12/23/20 07:08 36.9 C 78 19 142/89 H 97 12/23/20 03:20 36.4 C L 71 20 117/60 95 12/22/20 23:09 36.3 C L 81 20 126/76 95 Laboratory Results 12/23/20 12/23/20 12/23/20 Range/Units 07:26 06:34 06:34 WBC 6.66 (4.8-10.8) K/uL RBC 4.37 L (4.7-6.1) M/uL Hgb 11.0 L (14.0-18.0) g/dL Hct 35.1 L (42-52) % MCV 80.3 (80-100) fL MCH 25.2 (25-34) pg MCHC 31.3 L (32-36) g/dL RDW Std Deviation 49.1 H (36.4-46.3) fL RDW Coeff of Tanesha 16.8 H (11.5-14.5) % Plt Count 277 (130-400) K/uL MPV 10.2 (7.4-10.4) fL Absolute Nucleated RBC 0.02 H (0-0) K/uL Nucleated RBC % (auto) 0.3 % PT (9.0-12.0) Seconds INR (0.9-1.1) Sodium 140 (136-145) mmol/L Potassium 4.2 (3.5-5.1) mmol/L Chloride 110 H (98-107) mmol/L Carbon Dioxide 27 (21-32) mmol/L Anion Gap 3.0 (3-11) BUN 13 (7-18) mg/dl Creatinine 1.04 (0.6-1.4) mg/dl Est Cr Clr Drug Dosing 87.1 ml/min Est GFR ( Amer) 92.6 ml/min Est GFR (Non-Af Amer) 79.9 ml/min BUN/Creatinine Ratio 12.2 (10-20) Glucose 202 H (70-99) mg/dl POC Glucose 199 H (70-99) mg/dl Calcium 8.7 (8.5-10.1) mg/dl 12/23/20 12/22/20 Range/Units 06:34 20:28 WBC (4.8-10.8) K/uL RBC (4.7-6.1) M/uL Hgb (14.0-18.0) g/dL Hct (42-52) % MCV (80-100) fL MCH (25-34) pg MCHC (32-36) g/dL RDW Std Deviation (36.4-46.3) fL RDW Coeff of Tanesha (11.5-14.5) % Plt Count (130-400) K/uL MPV (7.4-10.4) fL Absolute Nucleated RBC (0-0) K/uL Nucleated RBC % (auto) % PT 16.2 H (9.0-12.0) Seconds INR 1.7 H (0.9-1.1) Sodium (136-145) mmol/L Potassium (3.5-5.1) mmol/L Chloride (98-107) mmol/L Carbon Dioxide (21-32) mmol/L Anion Gap (3-11) BUN (7-18) mg/dl Creatinine (0.6-1.4) mg/dl Est Cr Clr Drug Dosing ml/min Est GFR ( Amer) ml/min Est GFR (Non-Af Amer) ml/min BUN/Creatinine Ratio (10-20) Glucose (70-99) mg/dl POC Glucose 188 H (70-99) mg/dl Calcium (8.5-10.1) mg/dl Medications Administered Current Inpatient Medications Acetaminophen (Acetaminophen 325 Mg Tab) 650 mg PO Q4H PRN PRN Reason: Pain or Fever Stop: 01/19/21 08:21 Last Admin: 12/22/20 06:33 Dose: 650 mg Documented by: Albuterol (Albuterol Hfa 8 Gm Inhaler) 2 puffs INH Q4H PRN PRN Reason: Wheezing Stop: 01/19/21 10:59 Albuterol (Albut/Ipratrop 3mg/0.5mg Neb 3 Ml Vial) 3 ml INH Q4H PRN PRN Reason: Shortness Of Breath Or Wheezing Stop: 01/19/21 10:59 Aspirin (Aspirin 81 Mg Ectab) [address] [facility] Stop: 01/19/21 11:39 Last Admin: 12/22/20 07:32 Dose: 81 mg Documented by: Atorvastatin Calcium (Atorvastatin 40 Mg Tab) [address] [facility] Stop: 01/19/21 20:59 Last Admin: 12/22/20 19:40 Dose: 80 mg Documented by: Clonazepam (Clonazepam 0.5 Mg Tab) 0.5 mg PO HS PRN PRN Reason: Anxiety Stop: 01/19/21 18:29 Darunavir (Pt Own Med - Darunavir Ethanolate 600 Mg Tab) 600 mg PO BIDM [facility] Stop: 01/19/21 11:39 Last Admin: 12/22/20 15:45 Dose: 600 mg Documented by: Duloxetine HCl (Duloxetine Hcl 60 Mg Cap) 60 mg PO QAM [facility] Stop: 01/19/21 11:39 Last Admin: 12/22/20 07:32 Dose: 60 mg Documented by: Enoxaparin Sodium (Enoxaparin 100 Mg/1ml Syr) 90 mg SQ Q12H [facility] Stop: 01/20/21 06:59 Last Admin: 12/22/20 19:39 Dose: 90 mg Documented by: Fluticasone Propionate (Fluticasone Propionate Na Spr 16 Gm Btl) 2 sprays FLAVIA QAM PRN PRN Reason: Allergy Symptoms Stop: 01/19/21 10:59 Fluticasone/Vilanterol (Fluticasone/Vilanterol 100/25mcg 14 Puffs/Inhaler) 1 puffs INH DAILY [facility] Stop: 01/20/21 08:59 Last Admin: 12/22/20 07:30 Dose: 1 puffs Documented by: Folic Acid (Folic Acid 1 Mg Tab) 1 mg PO QAM [facility] Stop: 01/20/21 08:59 Last Admin: 12/22/20 07:32 Dose: 1 mg Documented by: Gabapentin (Gabapentin 800 Mg Tab) 800 mg PO TID [facility] Stop: 01/19/21 11:59 Last Admin: 12/22/20 19:41 Dose: 800 mg Documented by: Levetiracetam (Levetiracetam 500 Mg Tab) 1,500 mg PO BID [facility] Stop: 01/19/21 11:39 Last Admin: 12/22/20 19:42 Dose: 1,500 mg Documented by: Metoprolol Succinate (Metoprolol Succ 50mg Ext Rel Tab) 50 mg PO QAM [facility] Stop: 01/19/21 11:44 Last Admin: 12/22/20 07:34 Dose: 50 mg Documented by: Miscellaneous (Ramelteon: Order Awaiting Action) 1 ea N/A QS [facility] Stop: 01/19/21 15:59 Last Admin: 12/23/20 01:15 Dose: Not Given Documented by: Miscellaneous (Remove Nicoderm Patch) 1 ea N/A DAILY@0859 [facility] Stop: 01/20/21 08:58 Last Admin: 12/22/20 07:29 Dose: 1 ea Documented by: Nicotine (Nicotine 21 Mg/24 Hr Tdsy) 21 mg TD QAM [facility] Stop: 01/19/21 11:44 Last Admin: 12/22/20 07:35 Dose: 21 mg Documented by: Oxycodone HCl (Oxycodone Hcl Ir 5 Mg Tab (Immediate Release)) 5 mg PO Q6 PRN PRN Reason: pain Stop: 01/03/21 11:04 Last Admin: 12/22/20 23:19 Dose: 5 mg Documented by: Pantoprazole Sodium (Pantoprazole 40 Mg Tab) [facility] Stop: 01/20/21 08:59 Last Admin: 12/22/20 07:33 Dose: 40 mg Documented by: Polyethylene Glycol (Polyethylene (Miralax) 17 Gm Pack) 17 gm PO DAILY PRN PRN Reason: Constipation Stop: 01/19/21 08:21 Raltegravir (Pt Own Med - Raltegravir Potassium 400 Mg Tab) 400 mg PO BID [facility] Stop: 01/19/21 11:44 Last Admin: 12/22/20 19:42 Dose: 400 mg Documented by: Ritonavir (Pt Own Med - Ritonavir 100 Mg Tab) 100 mg PO BID [facility] Stop: 01/19/21 11:44 Last Admin: 12/22/20 19:43 Dose: 100 mg Documented by: Saccharomyces Boulardii (Saccharomyces Boulardii 250 Mg Cap) 250 mg PO BID [facility] Stop: 01/19/21 20:59 Last Admin: 12/22/20 19:43 Dose: 250 mg Documented by: Thiamine HCl (Thiamine Hcl 100 Mg Tab) 100 mg [facility] Stop: 01/20/21 08:59 Last Admin: 12/22/20 07:34 Dose: 100 mg Documented by: Warfarin Sodium (Warfarin Sod 5 Mg Tab) 5 mg PO DAILY@1600 [facility] Stop: 01/22/21 15:59 Zaleplon (Zaleplon 5 Mg Capsule) 10 mg PO HS PRN PRN Reason: Insomnia Stop: 08/08/21 20:59 Last Admin: 12/20/20 22:10 Dose: 10 mg Documented by: (1) HIV (human immunodeficiency virus infection) HIV symptom status: unspecified Qualified Code(s): B20 - Human immunodeficiency virus [HIV] disease (2) Hypertension Hypertension type: essential hypertension Qualified Code(s): I10 - Essential (primary) hypertension
[2020-12-23] MEDS: RALTEGRAVIR POTASSIUM 400 MG PO SCH ×2 (08:18→20:28)
[2020-12-23] MEDS: FLUTICASONE/VILANTEROL 100/25MCG 14 PUFFS/INHALER INH SCH (08:19)
[2020-12-23] MEDS: FOLIC ACID 1 MG TAB PO SCH (08:19)
[2020-12-23] MEDS: ENOXAPARIN 100 MG/1ML SYR SQ SCH ×2 (08:19→20:25)
[2020-12-23] MEDS: RITONAVIR 100 MG PO SCH ×2 (08:19→20:28)
[2020-12-23] MEDS: SACCHAROMYCES BOULARDII 250 MG CAP PO SCH ×2 (08:20→20:27)
[2020-12-23] MEDS: levETIRAcetam 500 MG TAB PO SCH ×2 (08:20→20:26)
[2020-12-23] MEDS: THIAMINE HCL 100 MG TAB PO SCH (08:21)
[2020-12-23] MEDS: GABAPENTIN 800 MG TAB PO SCH ×3 (08:21→20:27)
[2020-12-23] MEDS: PANTOprazole 40 MG TAB PO SCH (08:21)
[2020-12-23] MEDS: ASPIRIN 81 MG ECTAB PO SCH (08:21)
[2020-12-23] MEDS: METOPROLOL SUCC 50MG EXT REL TAB PO SCH (08:21)
[2020-12-23] MEDS: DULoxetine HCL 60 MG CAP PO SCH (08:22)
[2020-12-23] MEDS: NICOTINE 21 MG/24 HR TDSY TD SCH (08:22)
[2020-12-23] MEDS: oxyCODONE HCL IR 5 MG TAB (IMMEDIATE RELEASE) PO PRN ×3 (10:06→20:24)
[2020-12-23] MEDS: LOPERAMIDE HCL 2 MG CAP PO PRN (14:40)
[2020-12-23] MEDS: WARFARIN SOD 5 MG TAB PO SCH (16:12)
[2020-12-23] MEDS: ATORVASTATIN 40 MG TAB PO SCH (20:27)
[2020-12-24] MEDS: RAMELTEON: ORDER AWAITING ACTION SCH ×4 (01:47→23:44)
[2020-12-24] MEDS: oxyCODONE HCL IR 5 MG TAB (IMMEDIATE RELEASE) PO PRN ×3 (03:51→18:19)
[2020-12-24] MEDS: LOPERAMIDE HCL 2 MG CAP PO PRN ×3 (03:52→22:29)
[2020-12-24 06:48] LABS: Hematocrit (blood only) 39.2 % (42-52); Hemoglobin 12.4 g/dL (14.0-18.0); Mean Corpuscular Hemoglobin 25.7 pg (25-34); Mean Corpuscular Hgb Conc 31.6 g/dL (32-36); Mean Corpuscular Volume 81.3 fL (80-100); Mean Platelet Volume 9.6 fL (7.4-10.4); Nucleated RBC # (auto) 0.04 K/uL (0-0); Nucleated RBC % (auto) 0.4 %; Platelet Count 321 K/uL (130-400); RDW Coefficient of Variation 16.9 % (11.5-14.5); RDW Standard Deviation 50.6 fL (36.4-46.3); Red Blood Count 4.82 M/uL (4.7-6.1)
[2020-12-24 06:58] LABS: INR 2.3 (0.9-1.1); Prothrombin Time 21.6 Seconds (9.0-12.0)
[2020-12-24 07:36] LABS: Creatinine Clr Calc Pharmacy 94.3 ml/min
[2020-12-24] MEDS: ENOXAPARIN 100 MG/1ML SYR SQ SCH (09:36)
[2020-12-24] MEDS: RITONAVIR 100 MG PO SCH ×2 (09:37→20:52)
[2020-12-24] MEDS: METOPROLOL SUCC 50MG EXT REL TAB PO SCH (09:37)
[2020-12-24] MEDS: RALTEGRAVIR POTASSIUM 400 MG PO SCH ×2 (09:37→20:51)
[2020-12-24] MEDS: DARUNAVIR ETHANOLATE 600 MG PO SCH ×2 (09:37→15:52)
[2020-12-24] MEDS: GABAPENTIN 800 MG TAB PO SCH ×3 (09:38→20:49)
[2020-12-24] MEDS: THIAMINE HCL 100 MG TAB PO SCH (09:38)
[2020-12-24] MEDS: FLUTICASONE/VILANTEROL 100/25MCG 14 PUFFS/INHALER INH SCH (09:38)
[2020-12-24] MEDS: PANTOprazole 40 MG TAB PO SCH (09:38)
[2020-12-24] MEDS: levETIRAcetam 500 MG TAB PO SCH ×2 (09:38→20:50)
[2020-12-24] MEDS: FOLIC ACID 1 MG TAB PO SCH (09:38)
[2020-12-24] MEDS: DULoxetine HCL 60 MG CAP PO SCH (09:38)
[2020-12-24] MEDS: ASPIRIN 81 MG ECTAB PO SCH (09:38)
[2020-12-24] MEDS: SACCHAROMYCES BOULARDII 250 MG CAP PO SCH ×2 (09:38→20:52)
[2020-12-24] MEDS: NICOTINE 21 MG/24 HR TDSY TD SCH (09:42)
--- NOTE | 2020-12-24 14:45 | Hospitalist Progress Note ---
Date of Service December 24, 2020 Assessment & Plan (1) Aortic mural thrombus: (2) Peripheral vascular disease: (3) History of DVT (deep vein thrombosis): 53yo M with a PMH of CVA in August 2018 with residual L hemiplegia, HIV, carotid artery disease, COPD, anxiety, depression, neuropathy, tobacco use and other medical problems listed below who presents as a direct admission from [facility] for vascular surgery evaluation. Recent LLE cellulitis treated with Keflex CTA abdomen with runoff revealed mild to moderate mural thrombus with infrarenal abdominal aortic aneurysm. Moderate atherosclerotic irregularity and mural thrombus intermittently in the iliofemoral system with occlusion of distal superficial femoral arteries extending into LLE Evaluated by vascular surgery - has a viable left lower extremity without signs of significant ischemia. Pain not felt to be associated with superficial femoral and iliac artery occlusive disease. No aggressive revascularization of LLE even if develops severe ischemia due to limited use Previously developed PE while on Eliquis. Has tolerated coumadin Patient had declined heparin and removed his IV. Heparin drip was discontinued. Currently on lovenox - coumadin bridge INR is still subtherapeutic today Given 7.5mg warfarin 2 days ago and now continued on 5mg daily. Stop lovenox as INR is therapeutic. (4) Neuropathic pain of both feet: Severe neuropathy in bilateral feet with worsened pain. Continue home oxycodone as needed and gabapentin (5) Cellulitis of left leg: Appearance of left lower extremity looks improved. Recently completed course of Keflex (6) Seizure disorder: Continue Keppra (7) HIV (human immunodeficiency virus infection): Continue darunivir, raltegravir, and ritonavir per home regimen Follows with [facility] (8) COPD (chronic obstructive pulmonary disease): Stable. Continue rescue inhaler as needed (9) Hypertension: Continue Toprol with hold parameters (10) Chronic pain syndrome: Continue PRN oxycodone 5mg Q6H PRN (per PDMP) and gabapentin On 12/21/20, previous hospitalist spoke with patient's sister over the phone. She reported that patient's chronic pain had been weaned down to 0.5 mg at bedtime as needed with him to discontinue eventually. I confirmed this with patient. Review of PDMP showed that patient had been getting 3 times daily dosing of Klonopin 1mg tabs, last filled on 11/28/2020. Sister reported that yes that PCP has been prescribing that but patient had been in [facility] from recent hospitalization and had been weaned down to 0.5mg at bedtime. RN did report patient being unusually drowsy with difficulty to arouse on klonopin Klonopin was reduced to 0.5mg klonopin HS prn anxiety for now based on information provided by sister and confirmed by patient, especially with patient being on opioids as well. Goal is to get patient off this completely over time (11) Dyslipidemia: Continue statin. Monitor LFTs and CK due to interaction with HAART medications (12) History of alcohol abuse: Denies drinking for past 3 weeks. Serum etoh negative (13) Tobacco abuse: Nicotine patch ordered DVT Ppx: Lovenox-warfarin bridge, can stop lovenox now as INR therapeutic Code status: FULL PCP: Dr. Elder Admission and Anticipated Discharge Date Admission Date: December 20, 2020 Subjective Patient seen in follow-up of mild to moderate mural thrombus with infrarenal abdominal aortic aneurysm. Moderate atherosclerotic irregularity and mural thrombus intermittently in the iliofemoral system with occlusion of distal superficial femoral arteries extending into LLE - left lower extremity pain Laying in bed, in no acute distress, drowsy but arousable Again asking about different pain medications when awake no fevers, chills, chest pain, shortness of breath INR therapeutic today, plan to discharge however patient prefers tomorrow as he will have help tomorrow, CM aware and also home health arranged. Patient will need transport per prior discussion between CM and sister Review of Systems Review of Systems: All systems reviewed & are unremarkable except as noted in HPI & below Constitutional: no fever and no chills Respiratory: no cough and no dyspnea Cardiovascular: no chest pain and no palpitations Gastrointestinal: no abdominal pain, no nausea and no vomiting Physical Exam Physical Exam: Constitutional: Chronically ill-appearing male; no acute distr ess Eyes: PERRL, EOMI, conjunctivae normal, anicteric sclerae ENMT: external ear and nose normal, oropharynx normal Respiratory: normal respiratory effort, lungs clear to auscultation Cardiovascular: Rate/Rhythm: regular rate and regular rhythm Gastrointestinal (Abdomen): normal bowel sounds, soft, nontender Neurologic: PERRL, EOMI, no face palsy, no dysarthria, moves extremities Psychiatric: A+Ox3, euthymic affect Results & Data Results & Data ([facility]) Vital Signs (Past 12 Hours) Vital Signs Temp Pulse Pulse Pulse Resp BP BP 12/24/20 12:44 36.9 C 70 19 136/68 12/24/20 08:37 63 12/24/20 07:04 36.8 C 67 19 131/77 12/24/20 03:57 36.4 C L 77 16 164/94 H Pulse Ox 12/24/20 12:44 961 H 12/24/20 08:37 12/24/20 07:04 95 12/24/20 03:57 94 Laboratory Results 12/24/20 12/24/20 12/24/20 Range/Units 11:13 07:03 06:32 WBC (4.8-10.8) K/uL RBC (4.7-6.1) M/uL Hgb (14.0-18.0) g/dL Hct (42-52) % MCV (80-100) fL MCH (25-34) pg MCHC (32-36) g/dL RDW Std Deviation (36.4-46.3) fL RDW Coeff of Tanesha (11.5-14.5) % Plt Count (130-400) K/uL MPV (7.4-10.4) fL Absolute Nucleated RBC (0-0) K/uL Nucleated RBC % (auto) % PT (9.0-12.0) Seconds INR (0.9-1.1) Creatinine 0.96 (0.6-1.4) mg/dl Est Cr Clr Drug Dosing 94.3 ml/min Est GFR ( Amer) 102.0 ml/min Est GFR (Non-Af Amer) 88.0 ml/min POC Glucose 152 H 129 H (70-99) mg/dl 12/24/20 12/24/20 12/23/20 Range/Units 06:32 06:32 16:19 WBC 11.30 H (4.8-10.8) K/uL RBC 4.82 (4.7-6.1) M/uL Hgb 12.4 L (14.0-18.0) g/dL Hct 39.2 L (42-52) % MCV 81.3 (80-100) fL MCH 25.7 (25-34) pg MCHC 31.6 L (32-36) g/dL RDW Std Deviation 50.6 H (36.4-46.3) fL RDW Coeff of Tanesha 16.9 H (11.5-14.5) % Plt Count 321 (130-400) K/uL MPV 9.6 (7.4-10.4) fL Absolute Nucleated RBC 0.04 H (0-0) K/uL Nucleated RBC % (auto) 0.4 % PT 21.6 H (9.0-12.0) Seconds INR 2.3 H (0.9-1.1) Creatinine (0.6-1.4) mg/dl Est Cr Clr Drug Dosing ml/min Est GFR ( Amer) ml/min Est GFR (Non-Af Amer) ml/min POC Glucose 124 H (70-99) mg/dl Medications Administered Current Inpatient Medications Acetaminophen (Acetaminophen 325 Mg Tab) 650 mg PO Q4H PRN PRN Reason: Pain or Fever Stop: 01/19/21 08:21 Last Admin: 12/22/20 06:33 Dose: 650 mg Documented by: Albuterol (Albuterol Hfa 8 Gm Inhaler) 2 puffs INH Q4H PRN PRN Reason: Wheezing Stop: 01/19/21 10:59 Albuterol (Albut/Ipratrop 3mg/0.5mg Neb 3 Ml Vial) 3 ml INH Q4H PRN PRN Reason: Shortness Of Breath Or Wheezing Stop: 01/19/21 10:59 Aspirin (Aspirin 81 Mg Ectab) 81 mg PO QAM [facility] Stop: 01/19/21 11:39 Last Admin: 12/24/20 09:38 Dose: 81 mg Documented by: Atorvastatin Calcium (Atorvastatin 40 Mg Tab) 80 mg PO HS [facility] Stop: 01/19/21 20:59 Last Admin: 12/23/20 20:27 Dose: 80 mg Documented by: Clonazepam (Clonazepam 0.5 Mg Tab) 0.5 mg PO HS PRN PRN Reason: Anxiety Stop: 01/19/21 18:29 Last Admin: 12/23/20 22:03 Dose: 0.5 mg Documented by: Darunavir (Pt Own Med - Darunavir Ethanolate 600 Mg Tab) 600 mg PO BIDM [facility] Stop: 01/19/21 11:39 Last Admin: 12/24/20 09:37 Dose: 600 mg Documented by: Duloxetine HCl (Duloxetine Hcl 60 Mg Cap) 60 mg PO QAM [facility] Stop: 01/19/21 11:39 Last Admin: 12/24/20 09:38 Dose: 60 mg Documented by: Enoxaparin Sodium (Enoxaparin 100 Mg/1ml Syr) 90 mg SQ Q12H [facility] Stop: 01/20/21 06:59 Last Admin: 12/24/20 09:36 Dose: 90 mg Documented by: Fluticasone Propionate (Fluticasone Propionate Na Spr 16 Gm Btl) 2 sprays FLAVIA QAM PRN PRN Reason: Allergy Symptoms Stop: 01/19/21 10:59 Fluticasone/Vilanterol (Fluticasone/Vilanterol 100/25mcg 14 Puffs/Inhaler) 1 puffs INH DAILY [facility] Stop: 01/20/21 08:59 Last Admin: 12/24/20 09:38 Dose: 1 puffs Documented by: Folic Acid (Folic Acid 1 Mg Tab) 1 mg PO QAM [facility] Stop: 01/20/21 08:59 Last Admin: 12/24/20 09:38 Dose: 1 mg Documented by: Gabapentin (Gabapentin 800 Mg Tab) 800 mg PO TID [facility] Stop: 01/19/21 11:59 Last Admin: 12/24/20 13:49 Dose: 800 mg Documented by: Levetiracetam (Levetiracetam 500 Mg Tab) 1,500 mg PO BID [facility] Stop: 01/19/21 11:39 Last Admin: 12/24/20 09:38 Dose: 1,500 mg Documented by: Loperamide HCl (Loperamide Hcl 2 Mg Cap) 2 mg PO Q5H PRN PRN Reason: Diarrhea Stop: 01/22/21 12:41 Last Admin: 12/24/20 13:49 Dose: 2 mg Documented by: Metoprolol Succinate (Metoprolol Succ 50mg Ext Rel Tab) 50 mg PO QAM [facility] Stop: 01/19/21 11:44 Last Admin: 12/24/20 09:37 Dose: 50 mg Documented by: Miscellaneous (Ramelteon: Order Awaiting Action) 1 ea N/A QS [facility] Stop: 01/19/21 15:59 Last Admin: 12/24/20 09:43 Dose: Not Given Documented by: Miscellaneous (Remove Nicoderm Patch) 1 ea N/A DAILY@0859 [facility] Stop: 01/20/21 08:58 Last Admin: 12/24/20 09:42 Dose: 1 ea Documented by: Nicotine (Nicotine 21 Mg/24 Hr Tdsy) 21 mg TD QAM [facility] Stop: 01/19/21 11:44 Last Admin: 12/24/20 09:42 Dose: 21 mg Documented by: Oxycodone HCl (Oxycodone Hcl Ir 5 Mg Tab (Immediate Release)) 5 mg PO Q6 PRN PRN Reason: pain Stop: 01/03/21 11:04 Last Admin: 12/24/20 11:33 Dose: 5 mg Documented by: Pantoprazole Sodium (Pantoprazole 40 Mg Tab) [address] [facility] [place] 01/20/21 08:59 Last Admin: 12/24/20 09:38 Dose: 40 mg Documented by: Polyethylene Glycol (Polyethylene (Miralax) 17 Gm Pack) 17 gm PO DAILY PRN PRN Reason: Constipation Stop: 01/19/21 08:21 Raltegravir (Pt Own Med - Raltegravir Potassium 400 Mg Tab) 400 mg PO BID [facility] Stop: 01/19/21 11:44 Last Admin: 12/24/20 09:37 Dose: 400 mg Documented by: Ritonavir (Pt Own Med - Ritonavir 100 Mg Tab) 100 mg PO BID [facility] Stop: 01/19/21 11:44 Last Admin: 12/24/20 09:37 Dose: 100 mg Documented by: Saccharomyces Boulardii (Saccharomyces Boulardii 250 Mg Cap) 250 mg PO BID [facility] Stop: 01/19/21 20:59 Last Admin: 12/24/20 09:38 Dose: 250 mg Documented by: Thiamine HCl (Thiamine Hcl 100 Mg Tab) [address] [facility] [place] Stop: 01/20/21 08:59 Last Admin: 12/24/20 09:38 Dose: 100 mg Documented by: Warfarin Sodium (Warfarin Sod 5 Mg Tab) 5 mg PO DAILY@1600 [facility] Stop: 01/22/21 15:59 Last Admin: 12/23/20 16:12 Dose: 5 mg Documented by: Zaleplon (Zaleplon 5 Mg Capsule) 10 mg PO HS PRN PRN Reason: Insomnia Stop: 01/19/21 20:59 Last Admin: 12/20/20 22:10 Dose: 10 mg Documented by: (1) HIV (human immunodeficiency virus infection) HIV symptom status: unspecified Qualified Code(s): B20 - Human immunodeficiency virus [HIV] disease (2) Hypertension Hypertension type: essential hypertension Qualified Code(s): I10 - Essential (primary) hypertension
[2020-12-24] MEDS: WARFARIN SOD 5 MG TAB PO SCH (15:50)
[2020-12-24] MEDS: MoRPHine SULFATE 2 MG/ML CARP IV PRN ×2 (15:55→22:29)
[2020-12-24] MEDS: ATORVASTATIN 40 MG TAB PO SCH (20:49)
[2020-12-25] MEDS: MoRPHine SULFATE 2 MG/ML CARP IV PRN ×2 (05:01→11:13)
[2020-12-25 07:23] LABS: INR 2.1 (0.9-1.1)
[2020-12-25] MEDS: DARUNAVIR ETHANOLATE 600 MG PO SCH (09:01)
[2020-12-25] MEDS: RITONAVIR 100 MG PO SCH (09:01)
[2020-12-25] MEDS: RALTEGRAVIR POTASSIUM 400 MG PO SCH (09:01)
[2020-12-25] MEDS: ASPIRIN 81 MG ECTAB PO SCH (09:02)
[2020-12-25] MEDS: RAMELTEON: ORDER AWAITING ACTION SCH ×2 (09:02→15:11)
[2020-12-25] MEDS: FLUTICASONE/VILANTEROL 100/25MCG 14 PUFFS/INHALER INH SCH (09:03)
[2020-12-25] MEDS: DULoxetine HCL 60 MG CAP PO SCH (09:03)
[2020-12-25] MEDS: FOLIC ACID 1 MG TAB PO SCH (09:04)
[2020-12-25] MEDS: levETIRAcetam 500 MG TAB PO SCH (09:04)
[2020-12-25] MEDS: GABAPENTIN 800 MG TAB PO SCH ×2 (09:04→15:11)
[2020-12-25] MEDS: SACCHAROMYCES BOULARDII 250 MG CAP PO SCH (09:05)
[2020-12-25] MEDS: THIAMINE HCL 100 MG TAB PO SCH (09:05)
[2020-12-25] MEDS: METOPROLOL SUCC 50MG EXT REL TAB PO SCH (09:05)
[2020-12-25] MEDS: NICOTINE 21 MG/24 HR TDSY TD SCH (09:05)
[2020-12-25] MEDS: PANTOprazole 40 MG TAB PO SCH (09:05)
[2020-12-25] MEDS: oxyCODONE HCL IR 5 MG TAB (IMMEDIATE RELEASE) PO PRN ×2 (09:13→15:10)
[2020-12-25] MEDS: WARFARIN SOD 5 MG TAB PO SCH (15:10)
--- NOTE | 2020-12-25 15:53 | Discharge Summary ---
Date of Service December 25, 2020 Admission HPI Per Admitting Provider This is a 53yo M with a PMH of CVA in August 2018 with residual L hemiplegia, HIV, carotid artery disease, COPD, anxiety, depression, neuropathy, tobacco use and other medical problems listed below who presents as a direct admission from [facility] for vascular surgery evaluation. Had been admitted in [place] last week for LLE cellulitis and was discharged home on Keflex course, which he completed. Returned due to continued pain in L foot and CTA abdomen with runoff revealed mild to moderate Bales thrombus with infrarenal abdominal aortic aneurysm. Unable to find pulses with doppler at OSH and CTA abd with run off revealed moderate atherosclerotic irregularity and mural thrombus intermittently in the iliofemoral system with occlusion of the distal superficial femoral arteries and popliteal arteries extending into the proximal left lower extremity runoff vessels. Was transferred to [facility] for vascular surgery evaluation on IV heparin drip. Denies any increased warmth or redness to the area but continues to have swelling and pain of left lower extremity. Has limited mobility of extremity due to hemiparesis from remote stroke. Also with significant neuropathy in extremity for over 3 years for which she takes gabapentin. Is also taking oxycodone for chronic pain syndrome. Denies any fever or chills. No chest pain, shortness of breath, nausea, vomiting, abdominal pain, dysuria, diarrhea or constipation. Resides at [facility] with limited home health, per patient. Ambulates by wheelchair. Patient very frustrated at this point with ongoing pain in left lower extremity. "I wish someone would just amputated because it is of no use to me." Is not on any oral anticoagulation. Did not receive any home medications this morning prior to transfer. Per PDMP, patient currently prescribed oxycodone 5 mg every 6 hours as needed and clonazepam 1 mg 3 times daily scheduled. Admission Exam Per Admitting Provider General Appearance: WD/WN, vitals as above, NAD, sitting up in bed, pleasant, conversing easily Head: normocephalic, atraumatic Eyes: normal inspection, PERRL, conjunctivae normal, anicteric sclerae ENT: external ear and nose normal, oropharynx normal Neck: normal visual inspection, trachea midline, no thyromegaly Respiratory: normal respiratory effort, lungs clear to auscultation, no wheeze, rales, rhonchi. No accessory muscle use Cardiovascular: regular rate, rhythm, no murmur, normal peripheral pulses, no BLE edema. Vessels: no JVD Chest: normal inspection of chest Abdomen/GI: normal bowel sounds, soft, nontender, no hepatosplenomegaly Extremities/Musculoskeletal: no cyanosis or clubbing. LLE with erythema and peeling of skin - no drainage, warmth to touch Neurologic: PERRL, EOMI, accommodation nl, no face palsy, no dysarthria, CN's II-XI intact bilaterally and moves R extremities spontaneously. L hemiplegia (known) Psychiatric: A+Ox3, euthymic affect Skin: no rashes, normal color, warm/dry Principal Diagnosis (1) Aortic mural thrombus: (2) Peripheral vascular disease: (3) History of DVT (deep vein thrombosis): (4) Neuropathic pain of both feet: (5) Cellulitis of left leg: (6) Seizure disorder: (7) HIV (human immunodeficiency virus infection): (8) COPD (chronic obstructive pulmonary disease): (9) Hypertension: (10) Chronic pain syndrome: Discharge Exam Constitutional: Chronically ill-appearing male; no acute distress Eyes: PERRL, EOMI, conjunctivae normal, anicteric sclerae ENMT: external ear and nose normal, oropharynx normal Respiratory: normal respiratory effort, lungs clear to auscultation Cardiovascular: Rate/Rhythm: regular rate and regular rhythm Gastrointestinal (Abdomen): normal bowel sounds, soft, nontender Neurologic: PERRL, EOMI, no face palsy, no dysarthria, moves extremities Psychiatric: A+Ox3, euthymic affect Discharge Data Allergies Allergy/AdvReac Type Severity Reaction Status Date / Time azithromycin Allergy Severe rash/anaphy Verified 09/01/20 04:29 laxis Penicillins Allergy Severe ANAPHYLAXIS Verified 08/16/20 11:53 niacin Allergy Intermediate RASH Verified 08/16/20 11:53 Sulfa (Sulfonamide Allergy Intermediate "ITCHY Verified 08/16/20 11:53 Antibiotics) RASH" tramadol Allergy Mild RASH Verified 08/16/20 11:53 meloxicam AdvReac Intermediate GI SYMPTOMS Verified 08/16/20 11:53 shellfish derived AdvReac Intermediate gi symptoms Verified 08/16/20 11:53 topiramate AdvReac Intermediate NAUSEA Verified 08/16/20 11:53 lisinopril AdvReac Unknown cough Verified 09/01/20 04:29 Consultations 12/20/20 08:27 Consult Vascular Surgery Routine 12/21/20 08:00 Consult Psychiatry Routine Ordered Studies SINGLE VIEW CHEST CLINICAL HISTORY: Dyspnea. FINDINGS: An AP, portable, upright chest radiograph is compared to chest x-ray and chest CT dated 08/31/2020. The examination is degraded by portable technique and patient rotation. The cardiomediastinal silhouette is unremarkable. Emphysema and chronic interstitial thickening is similar to previous. There is diffuse coarsening of interstitium. No lobar consolidation or large pleural effusion is identified. Mild elevation of the left hemidiaphragm is chronic. No pneumothorax is seen. The skeletal structures are osteopenic. The bony thorax is grossly intact. IMPRESSION: 1. Emphysema. 2. There is diffuse thickening of the interstitium. This could represent fluid overload/congestive change versus a mild infectious/inflammatory pneumonitis. Clinical correlation will be required. ACT 112: Negative or not required by law. Electronically signed by: Nico Guerra M.D. 12/20/2020 11:11 AM Dictated: 12/20/20 1106Transcribed: 12/20/20 1106 Hospital Course (1) Aortic mural thrombus: (2) Peripheral vascular disease: (3) History of DVT (deep vein thrombosis): 53yo M with a PMH of CVA in August 2018 with residual L hemiplegia, HIV, carotid artery disease, COPD, anxiety, depression, neuropathy, tobacco use and other medical problems listed below who presents as a direct admission from [facility] for vascular surgery evaluation. Recent LLE cellulitis treated with Keflex CTA abdomen with runoff revealed mild to moderate mural thrombus with infrarenal abdominal aortic aneurysm. Moderate atherosclerotic irregularity and mural thrombus intermittently in the iliofemoral system with occlusion of distal superficial femoral arteries extending into LLE Evaluated by vascular surgery - has a viable left lower extremity without signs of significant ischemia. Pain not felt to be associated with superficial femoral and iliac artery occlusive disease. No aggressive revascularization of LLE even if develops severe ischemia due to limited use Previously developed PE while on Eliquis. Has tolerated coumadin Patient had declined heparin and removed his IV. Heparin drip was discontinued. Currently on lovenox - coumadin bridge INR is still subtherapeutic today Given 7.5mg warfarin 2 days ago and now continued on 5mg daily. Stop lovenox as INR is therapeutic. (4) Neuropathic pain of both feet: Severe neuropathy in bilateral feet with worsened pain. Continue home oxycodone as needed and gabapentin (5) Cellulitis of left leg: Appearance of left lower extremity looks improved. Recently completed course of Keflex (6) Seizure disorder: Continue Keppra (7) HIV (human immunodeficiency virus infection): Continue darunivir, raltegravir, and ritonavir per home regimen Follows with [facility] (8) COPD (chronic obstructive pulmonary disease): Stable. Continue rescue inhaler as needed (9) Hypertension: Continue Toprol with hold parameters (10) Chronic pain syndrome: Continue PRN oxycodone 5mg Q6H PRN (per PDMP) and gabapentin On 12/21/20, previous hospitalist spoke with patient's sister over the phone. She reported that patient's chronic pain had been weaned down to 0.5 mg at bedtime as needed with him to discontinue eventually. I confirmed this with patient. Review of PDMP showed that patient had been getting 3 times daily dosing of Klonopin 1mg tabs, last filled on 11/28/2020. Sister reported that yes that PCP has been prescribing that but patient had been in senior care from recent hospitalization and had been weaned down to 0.5mg at bedtime. RN did report patient being unusually drowsy with difficulty to arouse on klonopin Klonopin was reduced to 0.5mg klonopin HS prn anxiety for now based on information provided by sister and confirmed by patient, especially with patient being on opioids as well. Goal is to get patient off this completely over time (11) Dyslipidemia: Continue statin. Monitor LFTs and CK due to interaction with HAART medications (12) History of alcohol abuse: Denies drinking for past 3 weeks. Serum etoh negative (13) Tobacco abuse: Nicotine patch ordered DVT Ppx: Lovenox-warfarin bridge, can stop lovenox now as INR therapeutic Code status: FULL PCP: Dr. Elder Total Time Total Time Spent Total Time Spent (In Minutes): 35 minutes Discharge Plan Discharge Items Patient Disposition: Home - Home Health Services Reason For Visit: LLE CELLULITIS WITH OCCLUSION Discharge Diagnosis: Mural thrombus Activity: Per Instructions section Non-emergency contact: Primary Care Provider and Specialist Call non-emergency contact if: you have any medication questions and your symptoms worsen Follow-up/Referrals: Alexandr Elder DO [Primary Care Provider] - (Date & Time 01/01/2021 10:00 AM Provider Alexandr Elder DO Department [facility] ) Diet: Carb Consistent or DM2 and Heart Healthy Addtl Attending Provider Instructions: Follow-up with primary care provider, and anticoagulation clinic. Follow up with coumadin clinic to check INR on Wednesday Your provider or the coumadin clinic will give you instruction on how to trans ition to Lovenox The appointment with your primary care provider was set up for You will be discharged on medication, blood thinnerwarfarin. It is important that there is a therapeutic level of this medication in your body, this is treated by blood work, INR. Anticoagulation clinic will be contacting you and follow you closely to manage correct dose of this medication. Information packet was given to you on warfarin as it is important to be familiar that certain foods and medications may interact with this medication. Medication Instructions: Coumadin Warfarin is a medicine prescribed to prevent blood clots Warfarin will thin your blood and help prevent new clots Take your medications exactly as directed Never skip a dose. Never take a double dose. If you miss a dose, take it as soon as you remember It is important for your doctor to monitor your prothrombin time (PT). This is a lab test Keep your appointment for lab tests Risk of Adverse Drug Reactions and Interactions: Warfarin increases your risk of bleeding The food you eat and other medications you take can affect how Warfarin works in your body Ask your doctor about daily aspirin therapy It is very important to talk with your doctor about all of the other medicines, antibiotics, vitamins or herbal products that you are taking All of your medication must be approved by your doctor, including new medicines, as well as medicines you have taken before you started taking Warfarin Avoid NSAIDs (Motrin, Aleve, Naproxen, Ibuprofen, Advil, Meloxicam,..) due to risks of bleeding Diet: In order for Warfarin to work properly, it is important to keep your intake of Vitamin K as consistent as possible You should avoid any sudden change in Vitamin K intake Report any significant changes in your diet or weight to your doctor Call your Primary Care doctor if you experience any of the following: Swelling or Pain in your leg Sudden, continuous pain deep in a muscle Pain that worsens when you are active or when you stand still for a long time Chest Pain Sudden Shortness of Breath Rapid or pounding heart beat Fainting Dizziness Cough with blood or bloody sputum Sweating more than normal Bruises Heavy or uncontrolled bleeding Blood in your urine, stool or vomit Black or tarry stools Caring for Your Self at Home: Avoid sitting, standing or lying down for long periods without moving your legs and feet When traveling by car, stop to get out and move around at least once every 3 hours On long airplane, train or bus rides, get up and move around when possible If you can't get up, wiggle your toes and tighten your calves to keep your blood moving Follow Up: It is important for you to keep your follow up appointments with your medical provider. Pending Studies at Discharge: No Stand-Alone Forms: My [facility] [email or web address], Smoking Cessation Medications and DC Order Prescriptions: New warfarin 5 mg Tablet 5 mg PO DAILY@1600 Qty: 30 RF: 0 oxycodone 5 mg Tablet 5 mg PO Q6 PRN (Reason: pain) Qty: 15 RF: 0 Continued ritonavir 100 mg tablet 100 mg PO BID Qty: 180 RF: 1 Isentress 400 mg tablet 400 mg PO BID Qty: 180 RF: 1 Prezista 600 mg tablet 600 mg PO BIDM Qty: 180 RF: 1 aspirin 81 mg tablet,delayed release (DR/EC) 81 mg PO QAM RF: 0 furosemide [Lasix] 20 mg Tablet 20 mg PO QAM PRN (Reason: Swelling) RF: 0 fluticasone propionate [Flonase Allergy Relief] 50 mcg/actuation [place],Suspension 2 spray INTRANASAL QAM PRN (Reason: Allergy Symptoms) RF: 0 budesonide-formoterol [Symbicort] 160-4.5 mcg/actuation Hfa Aerosol Inhaler 2 puff INHALATION Q12H RF: 0 folic acid 1 mg Tablet 1 mg PO QAM RF: 0 gabapentin [Neurontin] 800 mg Tablet 800 mg PO TID RF: 0 albuterol sulfate [Ventolin HFA] 90 mcg/actuation HFA aerosol inhaler 2 puff inhalation Q4H PRN (Reason: Wheezing) RF: 0 ondansetron 4 mg tablet,disintegrating 4 mg PO Q8H PRN (Reason: Nausea) RF: 0 Saccharomyces boulardii [Florastor] 250 mg capsule 250 mg PO BID Qty: 20 RF: 0 duloxetine [Cymbalta] 60 mg Capsule,Delayed Release(Dr/Ec) 60 mg PO QAM RF: 0 ipratropium-albuterol 0.5 mg-3 mg(2.5 mg base)/3 mL Solution For Nebulization 3 ml INHALATION Q4H PRN (Reason: Shortness Of Breath Or Wheezing) RF: 0 omeprazole 20 mg Capsule,Delayed Release(Dr/Ec) 20 mg PO QAM RF: 0 metoprolol succinate [Toprol XL] 50 mg tablet extended release 24 hr 50 mg PO QAM RF: 0 atorvastatin 80 mg Tablet 80 mg PO HS RF: 0 levetiracetam 500 mg Tablet 1,500 mg PO BID RF: 0 zaleplon 10 mg Capsule 10 mg PO HS PRN (Reason: Insomnia) RF: 0 ramelteon 8 mg Tablet 8 mg PO HS RF: 0 polyethylene glycol 3350 [Miralax] 17 gram Powder In Packet 17 g PO DAILY PRN (Reason: constipation) Qty: 14 RF: 0 thiamine HCl (vitamin B1) [Vitamin B-1] 100 mg Tablet 100 mg PO QAM Qty: 30 RF: 0 oxycodone 5 mg Tablet 5 mg PO Q6 PRN (Reason: pain) Qty: 15 RF: 0 Changed clonazepam 1 mg Tablet 0.5 mg PO HS PRN (Reason: anxiety) Qty: 10 RF: 0 Discontinued ibuprofen 600 mg Tablet 600 mg PO Q8H PRN (Reason: pain) Qty: 10 RF: 0 Discharge Orders: Discharge Order (Routine); Ordered 12/25/20 Ordered By: Dani Johnson Admission Data Admit Date/Time: 12/20/20 09:49 Attending Provider: Dani Johnson Admit Provider: Vahe Oliver Primary Care Provider: Alexandr Elder Other Providers: Jl Caraballo ; Guillermo Landa Other Interventions: Discharge Summary Assessment (RN) Last Done: 12/25/20 15:53 PSY Interdisciplinary Discharge Planning Last Done: 12/23/20 12:51
== END 2020-12-25 16:25 | disposition home health service (06) ==
LOC: SUATTDRO 09:49 → INTOOBSV 09:49 → 2S 09:49 → 2N 12-24 16:26
DX: Z86.711 Personal history of pulmonary embolism; J44.9 Chronic obstructive pulmonary disease, unspecified; Z88.1 Allergy status to other antibiotic agents; I74.19 Embolism and thrombosis of other parts of aorta; Z86.718 Personal history of other venous thrombosis and embolism; Z79.899 Other long term (current) drug therapy; Z91.013 Allergy to seafood; R56.9 Unspecified convulsions; E11.59 Type 2 diabetes mellitus with other circulatory complications; F41.8 Other specified anxiety disorders; I10 Essential (primary) hypertension; Z88.0 Allergy status to penicillin; G89.4 Chronic pain syndrome; Z88.8 Allergy status to other drugs, medicaments and biological substances; E11.42 Type 2 diabetes mellitus with diabetic polyneuropathy; F17.210 Nicotine dependence, cigarettes, uncomplicated; Z21 Asymptomatic human immunodeficiency virus [HIV] infection status; Z88.2 Allergy status to sulfonamides; Z88.5 Allergy status to narcotic agent; L03.116 Cellulitis of left lower limb; Z86.73 Personal history of transient ischemic attack (TIA), and cerebral infarction without residual deficits; E78.5 Hyperlipidemia, unspecified; Z79.82 Long term (current) use of aspirin